=== PATIENT | female | born 1945 | race African-American/Black ===

== ENCOUNTER 2018-02-25 10:43 | Emergency (ER) | payer OTHER, SELFPAY ==
--- NOTE | 2018-02-25 11:36 | ER ---
Nurse's Notes [facility] Name: Racheal Dia Age: 72 yrs Sex: Female : 1945 Arrival Date: 02/25/2018 Time: 10:46 Bed 19 Private MD: None, None Diagnosis: Cough;Bronchitis, not specified as acute or chronic Presentation: 02/25 10:53 Presenting complaint: Patient states: Runny nose, cough, and nasal congestion since ph yesterday, denies fever, N/V/D. Transition of care: patient was not received from another setting of care. Onset of symptoms was February 25, 2018. Risk Assessment: Do you want to hurt yourself or someone else? Patient reports no desire to harm self or others. Initial Sepsis Screen: Does the patient meet any 2 criteria? No. Patient's initial sepsis screen is negative. Does the patient have a suspected source of infection? No. Patient's initial sepsis screen is negative. Care prior to arrival: None. 10:53 Method Of Arrival: Ambulatory 10:53 Acuity: AISHA 3 ph Historical: - Allergies: 10:56 No Known Allergies; ph - PMHx: 10:56 CHF; Hypertension; Hypothyroidism; ph - PSHx: 10:56 splenectomy; Heart stents; ph - Immunization history:: Adult Immunizations up to date. - Social history:: Smoking status: Patient/guardian denies using tobacco. - Family history:: not pertinent. - Ebola Screening: : Patient denies exposure to infectious person Patient denies travel to an Ebola-affected area in the 21 days before illness onset. Screenin:08 Abuse screen: Denies threats or abuse. Denies injuries from another. Nutritional ss screening: No deficits noted. Tuberculosis screening: Never had TB. Fall Risk None identified. Assessment: 11:08 General: Appears in no apparent distress. comfortable, Behavior is calm, cooperative, ss Reports feeling ill for 0-12 hours, Denies fever. Pain: Denies pain. Neuro: Level of Consciousness is awake, alert, obeys commands, Oriented to person, place, time, situation, Denies blurred vision dizziness, numbness headache. Cardiovascular: Capillary refill < 3 seconds is brisk in bilateral fingers. Respiratory: Reports cough that is productive, hacking, persistent Breath sounds are clear bilaterally. Denies shortness of breath pain with respiration, pain with cough, pain with movement. GI: Patient currently denies abdominal pain, diarrhea, nausea, vomiting. : Denies burning with urination, urinary frequency. EENT: Oral mucosa is moist. Reports nasal discharge that is watery since "yesterday" ringing in left ear and right ear since "yesterday". Derm: Skin is intact, is healthy with good turgor, Skin is pink, warm \\T\\ dry. normal. 11:21 Reassessment: pt to XRAY now VIA wheelchair. ss Vital Signs: 10:55 BP 205 / 102; Pulse 65; Resp 20; Temp 97.8; Pulse Ox 96% on R/A; Weight 68.04 kg; ph Height 5 ft. 1 in. (154.94 cm); 11:52 BP 167 / 99; Pulse 67; ss 10:55 Body Mass Index 28.34 (68.04 kg, 154.94 cm) ph 10:55 Pt states, " I took my BP medicine a little late today and I ate some dale so that's ph probably why it's high." ED Course: 10:46 Patient arrived in ED. sb2 10:47 None, None is Private Physician. sb2 10:49 Jaret Swift MD is Attending Physician. [facility] 10:54 Triage completed. ph 10:56 Arm band placed on Patient placed in an exam room. ph 10:58 Shagufta Lockhart, ZANE is Primary Nurse. ss 10:58 Flu Sent. ss 11:08 Patient has correct armband on for positive identification. Bed in low position. Call ss light in reach. 11:08 Patient maintains SpO2 saturation greater than 95% on room air. ss 11:28 X-ray completed. Portable x-ray completed in exam room. Patient tolerated procedure jb2 well. 11:30 Chest Pa And Lat (2 Views) XRAY In Process Unspecified. EDMS 11:54 No provider procedures requiring assistance completed. Patient did not have IV access ss during this emergency room visit. Administered Medications: 11:51 Drug: Tamiflu 75 mg Route: PO; ss 11:51 Follow up: Response: Medication administered at discharge. ss 11:51 Drug: Zithromax 500 mg Route: PO; ss 11:52 Follow up: Response: Medication administered at discharge. Outcome: 11:35 Discharge ordered by . jaret 11:54 Discharged to home ambulatory. 11:54 Condition: good 11:54 Discharge instructions given to patient, Instructed on discharge instructions, follow up and referral plans. medication usage, Demonstrated understanding of instructions, follow-up care, medications, Prescriptions given X 4. 11:55 Patient left the ED. ss Signatures: Dispatcher [employer] EDMS Jaret Swift MD MD cha Buechter, Jesse jb2 Shagufta Lockhart RN RN Marycarmen Reese RN RN Danisha, Freya sb2 Corrections: (The following items were deleted from the chart) 11:54 11:08 Respiratory: Breath sounds are clear bilaterally. Denies cough, shortness of ss breath pain with respiration, pain with cough, pain with movement, ss
--- NOTE | 2018-02-25 11:36 | EDPHYS ---
Physician Documentation [facility] Name: Racheal Dia Age: 72 yrs Sex: Female : 1945 Arrival Date: 02/25/2018 Time: 10:46 Bed 19 Private MD: None, None ED Physician Jaret Swift HPI: 02/25 11:31 This 72 yrs old Black Female presents to ER via Ambulatory with complaints of Flu jaret Symptoms. 11:31 The patient or guardian reports cough, that is constant. Onset: The symptoms/episode jaret began/occurred 2 day(s) ago. Modifying factors: The symptoms are alleviated by nothing. the symptoms are aggravated by nothing. Associated signs and symptoms: The patient has no apparent associated signs or symptoms. Severity of symptoms: At their worst the symptoms were mild in the emergency department the symptoms are unchanged. The patient has experienced similar episodes in the past, a few times. Historical: - Allergies: 10:56 No Known Allergies; ph - PMHx: 10:56 CHF; Hypertension; Hypothyroidism; ph - PSHx: 10:56 splenectomy; Heart stents; ph - Immunization history:: Adult Immunizations up to date. - Social history:: Smoking status: Patient/guardian denies using tobacco. - Family history:: not pertinent. - Ebola Screening: : Patient denies exposure to infectious person Patient denies travel to an Ebola-affected area in the 21 days before illness onset. ROS: 11:31 Constitutional: Negative for fever, chills, and weight loss, Eyes: Negative for injury, jaret pain, redness, and discharge, ENT: Negative for injury, pain, and discharge, Neck: Negative for injury, pain, and swelling, Cardiovascular: Negative for chest pain, palpitations, and edema, Abdomen/GI: Negative for abdominal pain, nausea, vomiting, diarrhea, and constipation, Back: Negative for injury and pain, : Negative for injury, bleeding, discharge, and swelling, MS/Extremity: Negative for injury and deformity, Skin: Negative for injury, rash, and discoloration, Neuro: Negative for headache, weakness, numbness, tingling, and seizure, Psych: Negative for depression, anxiety, suicide ideation, homicidal ideation, and hallucinations, Allergy/Immunology: Negative for hives, rash, and allergies, Endocrine: Negative for neck swelling, polydipsia, polyuria, polyphagia, and marked weight changes, Hematologic/Lymphatic: Negative for swollen nodes, abnormal bleeding, and unusual bruising. 11:31 Respiratory: Positive for cough, with yellow sputum. Exam: 11:31 Constitutional: This is a well developed, well nourished patient who is awake, alert, jaret and in no acute distress. Head/Face: Normocephalic, atraumatic. Eyes: Pupils equal round and reactive to light, extra-ocular motions intact. Lids and lashes normal. Conjunctiva and sclera are non-icteric and not injected. Cornea within normal limits. Periorbital areas with no swelling, redness, or edema. ENT: Nares patent. No nasal discharge, no septal abnormalities noted. Tympanic membranes are normal and external auditory canals are clear. Oropharynx with no redness, swelling, or masses, exudates, or evidence of obstruction, uvula midline. Mucous membranes moist. Neck: Trachea midline, no thyromegaly or masses palpated, and no cervical lymphadenopathy. Supple, full range of motion without nuchal rigidity, or vertebral point tenderness. No Meningismus. Chest/axilla: Normal chest wall appearance and motion. Nontender with no deformity. No lesions are appreciated. Cardiovascular: Regular rate and rhythm with a normal S1 and S2. No gallops, murmurs, or rubs. Normal PMI, no JVD. No pulse deficits. Respiratory: Lungs have equal breath sounds bilaterally, clear to auscultation and percussion. No rales, rhonchi or wheezes noted. No increased work of breathing, no retractions or nasal flaring. Abdomen/GI: Soft, non-tender, with normal bowel sounds. No distension or tympany. No guarding or rebound. No evidence of tenderness throughout. Back: No spinal tenderness. No costovertebral tenderness. Full range of motion. Skin: Warm, dry with normal turgor. Normal color with no rashes, no lesions, and no evidence of cellulitis. MS/ Extremity: Pulses equal, no cyanosis. Neurovascular intact. Full, normal range of motion. Neuro: Awake and alert, GCS 15, oriented to person, place, time, and situation. Cranial nerves II-XII grossly intact. Motor strength 5/5 in all extremities. Sensory grossly intact. Cerebellar exam normal. Normal gait. Psych: Awake, alert, with orientation to person, place and time. Behavior, mood, and affect are within normal limits. 11:31 Musculoskeletal/extremity: DVT Exam: No signs of deep vein thrombosis. no pain, no swelling, no tenderness, negative Homans' sign noted on exam, no appreciated bluish discoloration, no erythema, no increased warmth. Vital Signs: 10:55 BP 205 / 102; Pulse 65; Resp 20; Temp 97.8; Pulse Ox 96% on R/A; Weight 68.04 kg; ph Height 5 ft. 1 in. (154.94 cm); 11:52 BP 167 / 99; Pulse 67; ss 10:55 Body Mass Index 28.34 (68.04 kg, 154.94 cm) ph 10:55 Pt states, " I took my BP medicine a little late today and I ate some dale so that's ph probably why it's high." MDM: 10:49 Patient medically screened. [facility] 11:34 Data reviewed: vital signs, nurses notes, lab test result(s), radiologic studies. [facility] 02/25 10:49 Order name: Flu; Complete Time: 11:29 [facility] 02/25 10:49 Order name: Chest Pa And Lat (2 Views) XRAY [facility] Administered Medications: 11:51 Drug: Tamiflu 75 mg Route: PO; 11:51 Follow up: Response: Medication administered at discharge. 11:51 Drug: Zithromax 500 mg Route: PO; 11:52 Follow up: Response: Medication administered at discharge. Disposition: 02/25/18 11:35 Discharged to Home. Impression: Cough, Bronchitis, not specified as acute or chronic. - Condition is Stable. - Discharge Instructions: Acute Bronchitis, Adult, Upper Respiratory Infection, Adult, Cool Mist Vaporizer, Acute Bronchitis, [id number], Upper Respiratory Infection, Adult, Kgqr-ob-Cpyh, Cough, Adult, Mfhx-fh-Tyre, Cough, Adult, How to Use an Inhaler, [id number]. - Prescriptions for Zithromax Z- Grady 250 mg Oral Tablet - take 1 tablet by ORAL route as directed for 5 days Day 1 - take two (2) tablets one time. Day 2, 3, 4 , 5 take one (1) tablet once daily.; 6 tablet. Albuterol Sulfate 90 mcg/actuation - inhale 1-2 puff by INHALATION route every 4-6 hours; 1 Inhaler. Guaifenesin AC 10- 100 mg/5 mL Oral Liquid - take 5 milliliter by ORAL route every 4 hours As needed; 150 milliliter. Tamiflu 75 mg Oral Capsule - take 1 tablet by ORAL route every 12 hours for 5 days; 10 tablet. - Medication Reconciliation Form, Thank You Letter, Antibiotic Education, Prescription Opioid Use form. - Follow up: Private Physician; When: 2 - 3 days; Reason: Recheck today's complaints, Continuance of care, Re-evaluation by your physician. - Problem is new. - Symptoms have improved. Signatures: Dispatcher [employer] EDMS Jaret Swift MD MD cha Smirch, Shelby, RN RN ss Marycarmen Reese RN RN ph Corrections: (The following items were deleted from the chart) 11:55 11:35 02/25/2018 11:35 Discharged to Home. Impression: Cough; Bronchitis, not specified ss as acute or chronic. Condition is Stable. Forms are Medication Reconciliation Form, Thank You Letter, Antibiotic Education, Prescription Opioid Use. Follow up: Private Physician; When: 2 - 3 days; Reason: Recheck today's complaints, Continuance of care, Re-evaluation by your physician. Problem is new. Symptoms have improved. jaret
--- NOTE | 2018-02-25 11:45 | RAD REPORT ---
EXAM DESCRIPTION: RAD - Chest Pa And Lat (2 Views) - 02/25/2018 11:33 am CLINICAL HISTORY: COUGH Chest pain. COMPARISON: Chest Pa And Lat (2 Views) dated 09/06/2016; CHEST PA AND LAT 2 VIEW dated 03/26/2008; CH EST PA AND LAT 2 VIEW dated 11/15/2003 FINDINGS: The lungs are emphysematous but clear. Tortuous thoracic aorta with upper limit of normal heart size. No displaced fractures. IMPRESSION: COPD.
[2018-02-25] MEDS ORDERED: OSELTAMIVIR 75 MG CAP ONE (11:47)
[2018-02-25] MEDS ORDERED: AZITHROMYCIN 250 MG TAB ONE (11:48)
== END 2018-02-25 11:55 | disposition home or self-care (01) ==
LOC: ER 10:43
DX: J40 Bronchitis, not specified as acute or chronic (principal); J44.9 Chronic obstructive pulmonary disease, unspecified; I11.0 Hypertensive heart disease with heart failure; I50.9 Heart failure, unspecified; E03.9 Hypothyroidism, unspecified; Z95.5 Presence of coronary angioplasty implant and graft
CPT/HCPCS: 71046; 87804; 99284

== ENCOUNTER 2018-06-01 20:04 | Emergency (ER) | payer OTHER ==
[2018-06-01] MEDS ORDERED: cloNIDine HCl 0.1 MG TAB ONE ×2 (21:18→22:01)
--- NOTE | 2018-06-01 22:48 | EDPHYS ---
Physician Documentation [facility] Name: Racheal Dia Age: 72 yrs Sex: Female : 1945 Arrival Date: 06/01/2018 Time: 20:05 Bed 18 Private MD: ED Physician Bruce Mancera HPI: 06/01 20:55 This 72 yrs old Black Female presents to ER via Ambulatory with complaints of Blood pkl Pressure Problem. 20:55 Elevated blood pressure. Onset: The symptoms/episode began/occurred today. pkl Historical: - Allergies: 20:18 No Known Allergies; la1 - PMHx: 20:18 CHF; Hypertension; Hypothyroidism; la1 - Immunization history:: Adult Immunizations up to date. - Social history:: Smoking status: Patient/guardian denies using tobacco. - Ebola Screening: : No symptoms or risks identified at this time. ROS: 20:55 Eyes: Negative for injury, pain, redness, and discharge, ENT: Negative for injury, pkl pain, and discharge, Neck: Negative for injury, pain, and swelling, Cardiovascular: Negative for chest pain, palpitations, and edema, Respiratory: Negative for shortness of breath, cough, wheezing, and pleuritic chest pain, Abdomen/GI: Negative for abdominal pain, nausea, vomiting, diarrhea, and constipation, Back: Negative for injury and pain, : Negative for injury, bleeding, discharge, and swelling, MS/Extremity: Negative for injury and deformity, Skin: Negative for injury, rash, and discoloration. 20:55 Neuro: Positive for dizziness. Exam: 20:55 Head/Face: Normocephalic, atraumatic. Eyes: Pupils equal round and reactive to light, pkl extra-ocular motions intact. Lids and lashes normal. Conjunctiva and sclera are non-icteric and not injected. Cornea within normal limits. Periorbital areas with no swelling, redness, or edema. ENT: Nares patent. No nasal discharge, no septal abnormalities noted. Tympanic membranes are normal and external auditory canals are clear. Oropharynx with no redness, swelling, or masses, exudates, or evidence of obstruction, uvula midline. Mucous membranes moist. Neck: Trachea midline, no thyromegaly or masses palpated, and no cervical lymphadenopathy. Supple, full range of motion without nuchal rigidity, or vertebral point tenderness. No Meningismus. Chest/axilla: Normal chest wall appearance and motion. Nontender with no deformity. No lesions are appreciated. Cardiovascular: Regular rate and rhythm with a normal S1 and S2. No gallops, murmurs, or rubs. Normal PMI, no JVD. No pulse deficits. Respiratory: Lungs have equal breath sounds bilaterally, clear to auscultation and percussion. No rales, rhonchi or wheezes noted. No increased work of breathing, no retractions or nasal flaring. Abdomen/GI: Soft, non-tender, with normal bowel sounds. No distension or tympany. No guarding or rebound. No evidence of tenderness throughout. Back: No spinal tenderness. No costovertebral tenderness. Full range of motion. Skin: Warm, dry with normal turgor. Normal color with no rashes, no lesions, and no evidence of cellulitis. MS/ Extremity: Pulses equal, no cyanosis. Neurovascular intact. Full, normal range of motion. Neuro: Awake and alert, GCS 15, oriented to person, place, time, and situation. Cranial nerves II-XII grossly intact. Motor strength 5/5 in all extremities. Sensory grossly intact. Cerebellar exam normal. Normal gait. Vital Signs: 20:18 BP 166 / 123; Pulse 74; Resp 18; Temp 97.1; Pulse Ox 98% on R/A; Weight 68.04 kg; la1 Height 5 ft. 1 in. (154.94 cm); 21:29 BP 181 / 91; Pulse 60; Resp 16 S; Pulse Ox 97% on R/A; jd3 22:40 BP 143 / 88; Pulse 56; Resp 17 S; Pulse Ox 97% on R/A; jd3 20:18 Body Mass Index 28.34 (68.04 kg, 154.94 cm) la1 MDM: 20:46 Patient medically screened. pkl 22:47 Data reviewed: vital signs, nurses notes. pkl Administered Medications: 21:11 Drug: cloNIDine 0.1 mg Route: PO; jb4 21:54 Follow up: Response: No adverse reaction jd3 21:53 Drug: cloNIDine 0.1 mg Route: PO; jd3 22:58 Follow up: Response: No adverse reaction jd3 Disposition: 06/01/18 22:48 Discharged to Home. Impression: Uncontrolled Hypertension. - Condition is Stable. - Prescriptions for Clonidine 0.1 mg Oral Tablet - take 1 tablet by ORAL route 1-2 times daily; 30 tablet. - Medication Reconciliation Form, Thank You Letter, Antibiotic Education, Prescription Opioid Use form. - Follow up: Private Physician; When: 2 - 3 days; Reason: Re-evaluation by your physician. - Problem is new. - Symptoms have improved. Signatures: Bruce Mancera MD MD pkl Jose Martin Kearns RN RN la1 Igor Tim RN RN jb4 Dong Rios RN RN jd3 Corrections: (The following items were deleted from the chart) 22:58 22:48 06/01/2018 22:48 Discharged to Home. Impression: Uncontrolled Hypertension. jd3 Condition is Stable. Forms are Medication Reconciliation Form, Thank You Letter, Antibiotic Education, Prescription Opioid Use. Follow up: Private Physician; When: 2 - 3 days; Reason: Re-evaluation by your physician. Problem is new. Symptoms have improved. pkl
--- NOTE | 2018-06-01 22:48 | ER ---
Nurse's Notes [facility] Name: Racheal Dia Age: 72 yrs Sex: Female : 1945 Arrival Date: 06/01/2018 Time: 20:05 Bed 18 Private MD: Diagnosis: Uncontrolled Hypertension Presentation: 06/01 20:17 Presenting complaint: Patient states: About 1400 today I checked my BP because I la1 feeling a little dizzy and my BP has been very high in the 200s. Transition of care: patient was not received from another setting of care. Onset of symptoms was June 01, 2018. Risk Assessment: Do you want to hurt yourself or someone else? Patient reports no desire to harm self or others. Initial Sepsis Screen: Does the patient meet any 2 criteria? No. Patient's initial sepsis screen is negative. Does the patient have a suspected source of infection? No. Patient's initial sepsis screen is negative. Care prior to arrival: None. 20:17 Method Of Arrival: Ambulatory la1 20:17 Acuity: AISHA 3 la1 Historical: - Allergies: 20:18 No Known Allergies; la1 - PMHx: 20:18 CHF; Hypertension; Hypothyroidism; la1 - Immunization history:: Adult Immunizations up to date. - Social history:: Smoking status: Patient/guardian denies using tobacco. - Ebola Screening: : No symptoms or risks identified at this time. Screenin:45 Abuse screen: Denies threats or abuse. Nutritional screening: No deficits noted. jd3 Tuberculosis screening: No symptoms or risk factors identified. Fall Risk Ambulatory Aid- None/Bed Rest/Nurse Assist (0 pts). Gait- Normal/Bed Rest/Wheelchair (0 pts) Mental Status- Oriented to own ability (0 pts). Total Stanford Fall Scale indicates No Risk (0-24 pts). Assessment: 20:46 General: Appears in no apparent distress. uncomfortable, Behavior is calm, cooperative, jd3 appropriate for age. Pain: Denies pain. Neuro: Level of Consciousness is awake, alert, obeys commands, Oriented to person, place, time, situation, Appropriate for age Gait is steady, Speech is normal, Facial symmetry appears normal, Pupils are PERRLA, Intact Reports dizziness, pt reports only when blood pressure is elevated. Cardiovascular: Heart tones S1 S2 present Capillary refill < 3 seconds Patient's skin is warm and dry. Respiratory: Airway is patent Respiratory effort is even, unlabored, Respiratory pattern is regular, symmetrical, Breath sounds are clear bilaterally. GI: No signs and/or symptoms were reported involving the gastrointestinal system. : No signs and/or symptoms were reported regarding the genitourinary system. EENT: No signs and/or symptoms were reported regarding the EENT system. Derm: Skin is intact, Skin is dry, Skin is normal, Skin temperature is warm. Musculoskeletal: Circulation, motion, and sensation intact. Range of motion: intact in all extremities. 21:30 Reassessment: Patient appears in no apparent distress at this time. Patient and/or jd3 family updated on plan of care and expected duration. Pain level reassessed. Patient is alert, oriented x 3, equal unlabored respirations, skin warm/dry/pink. 22:41 Reassessment: Patient appears in no apparent distress at this time. Patient and/or jd3 family updated on plan of care and expected duration. Pain level reassessed. Patient is alert, oriented x 3, equal unlabored respirations, skin warm/dry/pink. Vital Signs: 20:18 BP 166 / 123; Pulse 74; Resp 18; Temp 97.1; Pulse Ox 98% on R/A; Weight 68.04 kg; la1 Height 5 ft. 1 in. (154.94 cm); 21:29 BP 181 / 91; Pulse 60; Resp 16 S; Pulse Ox 97% on R/A; jd3 22:40 BP 143 / 88; Pulse 56; Resp 17 S; Pulse Ox 97% on R/A; jd3 20:18 Body Mass Index 28.34 (68.04 kg, 154.94 cm) la1 ED Course: 20:05 Patient arrived in ED. am2 20:18 Triage completed. la1 20:18 Arm band placed on left wrist. la1 20:34 Dong Rios RN is Primary Nurse. jd3 20:45 Patient has correct armband on for positive identification. Bed in low position. Call jd3 light in reach. Side rails up X 1. Adult w/ patient. 20:46 Bruce Mancera MD is Attending Physician. pkl 22:57 No provider procedures requiring assistance completed. Patient did not have IV access jd3 during this emergency room visit. Administered Medications: 21:11 Drug: cloNIDine 0.1 mg Route: PO; jb4 21:54 Follow up: Response: No adverse reaction jd3 21:53 Drug: cloNIDine 0.1 mg Route: PO; jd3 22:58 Follow up: Response: No adverse reaction jd3 Outcome: 22:48 Discharge ordered by . pkterri 22:57 Discharged to home ambulatory, with family. jd3 22:57 Condition: stable 22:57 Discharge instructions given to patient, family, Instructed on discharge instructions, follow up and referral plans. medication usage, Demonstrated understanding of instructions, follow-up care, medications, Prescriptions given X 1. 22:58 Patient left the ED. jd3 Signatures: Bruce Mancera MD MD pkJose Martin Cuevas RN RN darling1 Igor Tim RN RN jb4 Tiesha Mahmood Jonathon RN RN jd3
== END 2018-06-01 22:58 | disposition home or self-care (01) ==
LOC: ER 20:04
DX: I10 Essential (primary) hypertension (principal)
CPT/HCPCS: 99283

== ENCOUNTER 2018-12-03 10:05 | Emergency (ER) | payer OTHER ==
--- OUTSIDE RECORDS SUMMARY | 2018-12-03 10:10 | XMS REPORT ---
:1945 [facility] Address [address] [place] [address] Care Team Providers Name Role Phone Unavailable Unavailable Unavailable Payers Payer Name Policy Type Policy Number Effective Date Expiration Date Problems This patient has no known problems. Allergies, Adverse Reactions, Alerts Allergy Allergy Status Severity Reaction(s) Onset Inactive Treating Comments Name Type Date Date Clinician No Known DA Active U 2018-09 Allergies -17 00:00:0 0 No Known DA Active U 2008-05 Contrast -28 Allergies 00:00:0 0 No Known DA Active U 2008-05 Drug -28 Allergies 00:00:0 0 No Known DA Active U 2008-05 Food -28 Allergies 00:00:0 0 No Known DA Active U 2008-05 Other -28 Allergies 00:00:0 0 Medications This patient has no known medications. Results Test Description Test Time Test Comments Text Results Atomic Results Result Comments BASIC METABOLIC PANEL 2018-10-03 05:09:00 Test Item Value Reference Range Comments SODIUM (test code=NA) 137 MMOL/L 137-145 POTASSIUM (test code=K) 3.8 MMOL/L 3.5-5.1 CHLORIDE (test code=CL) 94 MMOL/L 98-107 CARBON DIOXIDE (test code=CO2) 37 MMOL/L 22-30 GLUCOSE (test code=GLU) 105 MG/DL 74-106 BLOOD UREA NITROGEN (test 8 MG/DL 7-17 code=BUN) GLOMERULAR FILTRATION RATE (test > 60 Reporting units: ml/min/1.73 m2 code=GFR) (Modified MDRD Formula)Reference Range: > or=60 ml/min/1.73 m2 CREATININE (test code=CREAT) 0.50 MG/DL 0.52-1.04 CALCIUM (test code=CA) 9.0 MG/DL 8.4-10.2 [id number] 05:09:00 Test Item Value Reference Range Comments MAGNESIUM (test code=MAG) 1.8 MG/DL 1.6-2.3 CBC W/AUTO [id number] 04:46:00 Test Item Value Reference Range Comments WHITE BLOOD CELL (test code=WBC) 11.9 K/MM3 3.8-9.8 RED BLOOD CELL (test code=RBC) 3.34 M/MM3 3.58-4.97 HEMOGLOBIN (test code=HGB) 10.8 G/DL 11.2-14.9 HEMATOCRIT (test code=HCT) 33.2 % 33.2-43.5 MEAN CELL VOLUME (test code=MCV) 99 fL 80.7-99.1 MEAN CELL HGB (test code=MCH) 32.3 pg 27.0-34.1 MEAN CELL HGB CONCETRATION (test code=MCHC) 32.5 % 32.2-35.7 RED CELL DISTRIBUTION WIDTH (test code=RDW) 14.9 % 12.1-15.2 PLATELET COUNT (test code=PLT) 270 K/MM3 129-368 MEAN PLATELET VOLUME (test code=MPV) 8.8 fl 7.4-10.4 NEUTROPHIL % (test code=NT%) 75.6 % 43-75 IMMATURE GRANULOCYTE % (test code=IG%) 0.3 % 0.0-2.0 LYMPHOCYTE % (test code=LY%) 10.5 % 14-44 MONOCYTE % (test code=MO%) 12.9 % 4-13 EOSINOPHIL % (test code=EO%) 0.5 % 0-6 BASOPHIL % (test code=BA%) 0.2 % 0-2 NUCLEATED RBC % (test code=NRBC%) 0.0 % 0-1.0 NEUTROPHIL # (test code=NT#) 9.00 K/mm3 2.0-7.6 IMMATURE GRANULOCYTE # (test code=IG#) 0.03 x10 3/uL 0-0.03 LYMPHOCYTE # (test code=LY#) 1.25 K/mm3 1.0-3.8 MONOCYTE # (test code=MO#) 1.54 K/mm3 0.1-0.8 EOSINOPHIL # (test code=EO#) 0.06 K/mm3 0.0-0.2 BASOPHIL # (test code=BA#) 0.02 K/mm3 0.0-0.2 NUCLEATED RBC # (test code=NRBC#) 0.00 K/mm3 0.0-0.1 BASIC METABOLIC [id number] 06:03:00 Test Item Value Reference Range Comments SODIUM (test code=NA) 136 MMOL/L 137-145 POTASSIUM (test code=K) 3.6 MMOL/L 3.5-5.1 CHLORIDE (test code=CL) 95 MMOL/L 98-107 CARBON DIOXIDE (test code=CO2) 33 MMOL/L 22-30 GLUCOSE (test code=GLU) 110 MG/DL 74-106 BLOOD UREA NITROGEN (test 8 MG/DL 7-17 code=BUN) GLOMERULAR FILTRATION RATE > 60 Reporting units: ml/min/1.73 (test code=GFR) m2 (Modified MDRD Formula)Reference Range: > or=60 ml/min/1.73 m2 CREATININE (test code=CREAT) 0.60 MG/DL 0.52-1.04 CALCIUM (test code=CA) 8.7 MG/DL 8.4-10.2 [id number] 06:03:00 Test Item Value Reference Range Comments MAGNESIUM (test code=MAG) 2.1 MG/DL 1.6-2.3 CBC W/AUTO [id number] 05:32:00 Test Item Value Reference Range Comments WHITE BLOOD CELL (test code=WBC) 11.6 K/MM3 3.8-9.8 RED BLOOD CELL (test code=RBC) 3.39 M/MM3 3.58-4.97 HEMOGLOBIN (test code=HGB) 11.0 G/DL 11.2-14.9 HEMATOCRIT (test code=HCT) 33.6 % 33.2-43.5 MEAN CELL VOLUME (test code=MCV) 99 fL 80.7-99.1 MEAN CELL HGB (test code=MCH) 32.4 pg 27.0-34.1 MEAN CELL HGB CONCETRATION (test code=MCHC) 32.7 % 32.2-35.7 RED CELL DISTRIBUTION WIDTH (test code=RDW) 15.1 % 12.1-15.2 PLATELET COUNT (test code=PLT) 274 K/MM3 129-368 MEAN PLATELET VOLUME (test code=MPV) 8.8 fl 7.4-10.4 NEUTROPHIL % (test code=NT%) 75.7 % 43-75 IMMATURE GRANULOCYTE % (test code=IG%) 0.3 % 0.0-2.0 LYMPHOCYTE % (test code=LY%) 11.9 % 14-44 MONOCYTE % (test code=MO%) 11.2 % 4-13 EOSINOPHIL % (test code=EO%) 0.7 % 0-6 BASOPHIL % (test code=BA%) 0.2 % 0-2 NUCLEATED RBC % (test code=NRBC%) 0.0 % 0-1.0 NEUTROPHIL # (test code=NT#) 8.79 K/mm3 2.0-7.6 IMMATURE GRANULOCYTE # (test code=IG#) 0.04 x10 3/uL 0-0.03 LYMPHOCYTE # (test code=LY#) 1.38 K/mm3 1.0-3.8 MONOCYTE # (test code=MO#) 1.30 K/mm3 0.1-0.8 EOSINOPHIL # (test code=EO#) 0.08 K/mm3 0.0-0.2 BASOPHIL # (test code=BA#) 0.02 K/mm3 0.0-0.2 NUCLEATED RBC # (test code=NRBC#) 0.00 K/mm3 0.0-0.1 ARTERIAL BLOOD [id number] 12:23:00 Test Item Value Reference Range Comments ARTERIAL BLOOD GAS PH (test 7.42 mmHg 7.35-7.45 code=PHA) ARTERIAL BLOOD GAS PCO2 (test 45.2 mmHg 35.0-45.0 code=PCO2A) ARTERIAL BLOOD GAS PO2 (test 81.7 mmol/L 80.0-100.0 code=PO2A) BICARBONATE TOTAL HCO3 (test 28.5 mmol/L 20.0-26.0 code=HCO3) BASE EXCESS (test code=RUKHSANA) 3.4 mmol/L -3.0-3.0 ABG O2 SATURATION (test 96.1 % 95.0-100.0 code=SATA) ABG DELIVERY (test code=DENISE) FACETENT Previously reported result: FT/NC Edited by: MOON on 10/01/18:[id number] 1222: DELIVERY previously reported as: FT/NC ABG TEMPERATURE (test 37.0 C >37 code=TEMPA) ABG SITE (test code=SITEA) AL ALLENS TEST (test NA CHECK code=ALLENS) FIO2 (test code=COHBGFFIO2) 40 % ARTERY,[id number] 11:58:00 RUN DATE: 10/01/18 [place] - LAB PAGE 1 RUN TIME: 1158 Specimen Inquiry RUN USER: INTERFACE PATIENT: WILI SABILLON LOC: ENA U #: [id number] AGE/SX: 72/F ROOM: [facility] RE09/30/18[facility] DR: Rohith Cruz MD : 47 BED: A DIS: STATUS: ADM IN TLOC: SPEC #: [id number] RECD: 09/30/18 STATUS: DIEGO BYNUM #: [id number] GUS: 09/30/18 [facility] DR: Rohith Cruz MD ENTERED: 09/30/18 SP TYPE: ARTERY, PL OTHR DR: Katie Marc MD, Nioti R MD Pepper, Gregory S MDORDERED: DECAL, SURG PATH LVL 3, SURG PATH LVL 4 CODES: [id number] - PLAQUE, NOS [id number] - ARTERY, NOS [id number] - CAROTID ARTERY ATHEROSCLEROSIS [id number] - CERVIX EXCISIONAL BIOP [id number] - LYMPH NODE, NOS COPIES TO: Katie Marc MD [address] [place] [address] [address] [place] [address] [email or web address] [address] [place] [address] [place] [address] [facility] [address] [place] [address] [place] [address] [facility] [address] [place] [address] ICD CODES: 440 - PROCEDURES: DECAL (10/01/18) SURG PATH LVL 3 (09/30/18) SURG PATH LVL 4 (09/30/18) TISSUES: A. ARTERY, NOS - RT ARTERY PLAQUE B. LYMPH NODE, NOS - RT CERVICAL LYMPH NODE CONTINUED ON NEXT PAGE RUN DATE: 10/01/18 [place] - LAB PAGE 2 RUN TIME: 1158 Specimen Inquiry RUN USER:INTERFACE SPEC #: [id number] PATIENT: WILI SABILLON #[id number] (Continued) CLINICAL HISTORY RIGHT INTERNAL CAROTID ARTERYSTENOSIS CPT CODES CPT CODE(S): 71809 , 74000 , 01954 , , , , FINAL DIAGNOSIS A. Plaque, right carotid artery, endarterectomy: SEVERE ATHEROSCLEROSIS, OCCLUSIVE AND CALCIFIC B. Lymph node, right cervical, excisional biopsy: MINIMAL, NON-SPECIFIC, REACTIVE CHANGE GROSS DESCRIPTION A. Right carotid plaque. Received are two pieces of yellow-wyman , heavily calcified plaque (combined measurement 3.5 x 1 x 0.8 cm). Sections are submitted for decalcification as A1. B. Right cervical lymph node.Received is a wyman-pink lymph node (1.3 x 1 x 0.7 cm), sectioned and entirely submitted as B1. /tc/hazel MICROSCOPIC DESCRIPTION A. Right carotid plaque. Nodular atheromatous plaque with dense calcification and stromal sclerosis. No atypia. No malignancy. B. Right cervical lymph node. Benign lymph node with minimal hyperplastic deviation (reactive change) . No atypia. No malignancy. /cm Signed SIGNATURE ON FILE David Maier 10/01/18 1158 END OF REPORT - XR CHEST [id number] 07:45:00 Patient Name: WILI SABILLON Unit No: [id number] EXAMS: CPT CODE: [id number] XR CHEST 1V 60728 EXAMINATION: - XR CHEST 1V. LOCATION : B2. HISTORY: post op. COMPARISON: Radiograph dated 09/30/2018. TECHNIQUE: Single APview of the chest was obtained. FINDINGS: Left subclavian line is unchanged in position. Right neck surgical drain is again noted. The heart is normal in size. Calcifications are seen in an ectatic thoracic aorta. Mild left basilar opacities are present. The right lung is clear. No new osseous abnormality is identified. IMPRESSION: Mild left basilar atelectasis and/or pleural fluid. at 0745 Reported and signed by: Kayode Juarez MD CC: Katie Marc MD; Brisa GARCIA Technologist: Jeffrey High, RT(R) Transcrpt Date/Tm/Trnsp: 10/01/2018 (0745) [email or web address] Orig Print D/T: S: 10/01/2018 (0748) [facility] NAME: WILI SABILLON [id number] PHYS: [place] [address] : 1945 AGE: 72 SEX: F LOC: Z.SI07 A PHONE #: [phone] EXAM DATE: 10/01/2018 STATUS: ADM IN FAX #: [phone] RADIOLOGY NO: PAGE 1 Signed ReportBASIC METABOLIC [id number] 05:58:00 Test Item Value Reference Range Comments SODIUM (test code=NA) 136 MMOL/L 137-145 POTASSIUM (test code=K) 3.9 MMOL/L 3.5-5.1 CHLORIDE (test code=CL) 96 MMOL/L 98-107 CARBON DIOXIDE (test code=CO2) 32 MMOL/L 22-30 GLUCOSE (test code=GLU) 132 MG/DL 74-106 BLOOD UREA NITROGEN (test 7 MG/DL 7-17 code=BUN) GLOMERULAR FILTRATION RATE > 60 Reporting units: ml/min/1.73 (test code=GFR) m2 (Modified MDRD Formula)Reference Range: > or=60 ml/min/1.73 m2 CREATININE (test code=CREAT) 0.60 MG/DL 0.52-1.04 CALCIUM (test code=CA) 8.7 MG/DL 8.4-10.2 [id number] 05:58:00 Test Item Value Reference Range Comments MAGNESIUM (test code=MAG) 1.7 MG/DL 1.6-2.3 CBC W/AUTO [id number] 05:30:00 Test Item Value Reference Range Comments WHITE BLOOD CELL (test code=WBC) 10.7 K/MM3 3.8-9.8 RED BLOOD CELL (test code=RBC) 3.70 M/MM3 3.58-4.97 HEMOGLOBIN (test code=HGB) 12.0 G/DL 11.2-14.9 HEMATOCRIT (test code=HCT) 36.0 % 33.2-43.5 MEAN CELL VOLUME (test code=MCV) 97 fL 80.7-99.1 MEAN CELL HGB (test code=MCH) 32.4 pg 27.0-34.1 MEAN CELL HGB CONCETRATION (test code=MCHC) 33.3 % 32.2-35.7 RED CELL DISTRIBUTION WIDTH (test code=RDW) 15.2 % 12.1-15.2 PLATELET COUNT (test code=PLT) 298 K/MM3 129-368 MEAN PLATELET VOLUME (test code=MPV) 8.8 fl 7.4-10.4 NEUTROPHIL % (test code=NT%) 82.2 % 43-75 IMMATURE GRANULOCYTE % (test code=IG%) 0.4 % 0.0-2.0 LYMPHOCYTE % (test code=LY%) 8.7 % 14-44 MONOCYTE % (test code=MO%) 8.4 % 4-13 EOSINOPHIL % (test code=EO%) 0.1 % 0-6 BASOPHIL % (test code=BA%) 0.2 % 0-2 NUCLEATED RBC % (test code=NRBC%) 0.0 % 0-1.0 NEUTROPHIL # (test code=NT#) 8.82 K/mm3 2.0-7.6 IMMATURE GRANULOCYTE # (test code=IG#) 0.04 x10 3/uL 0-0.03 LYMPHOCYTE # (test code=LY#) 0.93 K/mm3 1.0-3.8 MONOCYTE # (test code=MO#) 0.90 K/mm3 0.1-0.8 EOSINOPHIL # (test code=EO#) 0.01 K/mm3 0.0-0.2 BASOPHIL # (test code=BA#) 0.02 K/mm3 0.0-0.2 NUCLEATED RBC # (test code=NRBC#) 0.00 K/mm3 0.0-0.1 [id number] 22:38:00 Test Item Value Reference Range Comments POTASSIUM (test code=K) 3.3 MMOL/L 3.5-5.1 [id number] 22:38:00 Test Item Value Reference Range Comments MAGNESIUM (test code=MAG) 1.7 MG/DL 1.6-2.3 ARTERIAL BLOOD [id number] 17:57:00 Test Item Value Reference Range Comments ARTERIAL BLOOD GAS PH (test code=PHA) 7.42 mmHg 7.35-7.45 ARTERIAL BLOOD GAS PCO2 (test code=PCO2A) 45.2 mmHg 35.0-45.0 ARTERIAL BLOOD GAS PO2 (test code=PO2A) 81.7 mmol/L 80.0-100.0 BICARBONATE TOTAL HCO3 (test code=HCO3) 28.5 mmol/L 20.0-26.0 BASE EXCESS (test code=RUKHSANA) 3.4 mmol/L -3.0-3.0 ABG O2 SATURATION (test code=SATA) 96.1 % 95.0-100.0 ABG DELIVERY (test code=DENISE) FT/NC ABG TEMPERATURE (test code=TEMPA) 37.0 C >37 ABG SITE (test code=SITEA) AL ALLENS TEST (test code=ALLENS) NA CHECK FIO2 (test code=COHBGFFIO2) 40 % BASIC METABOLIC [id number] 16:18:00 Test Item Value Reference Range Comments SODIUM (test code=NA) 138 MMOL/L 137-145 POTASSIUM (test code=K) 3.1 MMOL/L 3.5-5.1 CHLORIDE (test code=CL) 100 MMOL/L 98-107 CARBON DIOXIDE (test code=CO2) 31 MMOL/L 22-30 GLUCOSE (test code=GLU) 119 MG/DL 74-106 BLOOD UREA NITROGEN (test 10 MG/DL 7-17 code=BUN) GLOMERULAR FILTRATION RATE > 60 Reporting units: ml/min/1.73 (test code=GFR) m2 (Modified MDRD Formula)Reference Range: > or=60 ml/min/1.73 m2 CREATININE (test code=CREAT) 0.60 MG/DL 0.52-1.04 CALCIUM (test code=CA) 8.9 MG/DL 8.4-10.2 [id number] 16:18:00 Test Item Value Reference Range Comments MAGNESIUM (test code=MAG) 1.3 MG/DL 1.6-2.3 CBC W/AUTO [id number] 16:06:00 Test Item Value Reference Range Comments WHITE BLOOD CELL (test code=WBC) 10.8 K/MM3 3.8-9.8 RED BLOOD CELL (test code=RBC) 3.64 M/MM3 3.58-4.97 HEMOGLOBIN (test code=HGB) 11.8 G/DL 11.2-14.9 HEMATOCRIT (test code=HCT) 35.3 % 33.2-43.5 MEAN CELL VOLUME (test code=MCV) 97 fL 80.7-99.1 MEAN CELL HGB (test code=MCH) 32.4 pg 27.0-34.1 MEAN CELL HGB CONCETRATION (test code=MCHC) 33.4 % 32.2-35.7 RED CELL DISTRIBUTION WIDTH (test code=RDW) 14.9 % 12.1-15.2 PLATELET COUNT (test code=PLT) 281 K/MM3 129-368 MEAN PLATELET VOLUME (test code=MPV) 8.9 fl 7.4-10.4 NEUTROPHIL % (test code=NT%) 55.0 % 43-75 IMMATURE GRANULOCYTE % (test code=IG%) 0.6 % 0.0-2.0 LYMPHOCYTE % (test code=LY%) 30.3 % 14-44 MONOCYTE % (test code=MO%) 10.8 % 4-13 EOSINOPHIL % (test code=EO%) 3.0 % 0-6 BASOPHIL % (test code=BA%) 0.3 % 0-2 NUCLEATED RBC % (test code=NRBC%) 0.0 % 0-1.0 NEUTROPHIL # (test code=NT#) 5.97 K/mm3 2.0-7.6 IMMATURE GRANULOCYTE # (test code=IG#) 0.07 x10 3/uL 0-0.03 LYMPHOCYTE # (test code=LY#) 3.28 K/mm3 1.0-3.8 MONOCYTE # (test code=MO#) 1.17 K/mm3 0.1-0.8 EOSINOPHIL # (test code=EO#) 0.32 K/mm3 0.0-0.2 BASOPHIL # (test code=BA#) 0.03 K/mm3 0.0-0.2 NUCLEATED RBC # (test code=NRBC#) 0.00 K/mm3 0.0-0.1 - XR CHEST [id number] 15:29:00 Patient Name: WILI SABILLON Unit No: [id number] EXAMS: CPT CODE: [id number] XR CHEST 1V 94679 EXAM: CHEST ONE VIEW INDICATION: Postop LOCATION: B2 COMPARISON: September 29, 2018 TECHNIQUE: AP view of the chest FINDINGS: Left-sided central venous catheter overlies the SVC. The heart size is normal. There are mild congestive changes bilaterally. No pneumothorax or pleural effusion is identified. The osseous structures are normal. IMPRESSION: Mild congestive changes bilaterally. No pneumothorax. at 1529 Reported and signed by: Ryann Zuniga MD CC: Katie Marc MD; Brisa GARCIA Technologist: Alhaji Cha RT(R) Transcrpt Date/Tm/Trnsp: 09/30/2018 (1529) [id number] OrigPrint D /T: S: 09/30/2018 (1532) [facility] NAME: WILI SABILLON [id number] PHYS: [place] [address] : 1945 AGE: 72 SEX: F LOC: [id number] PHONE #: [phone] EXAM DATE: 09/30/2018 STATUS: ADM IN FAX #: [phone] RADIOLOGY NO: PAGE 1 Signed ReportHIV 12 AB [id number] 19 :14:00 Test Item Value Reference Range Comments AB HIV 1 2 (test NON REACTIVE NON-REAC NOTE: A NONREACTIVE RESULT code=YGA36JL) INDICATES THAT HIV-1 AND HIV-2ANTIBODIES HAVE NOT BEEN FOUND IN THIS PATIENT SPECIMEN. ANON-REACTIVE RESULT, HOWEVER, DOES NOT PRECLUDE PREVIOUSEXPOSURE OR INFECTION WITH HIV1. AG HIV1 P24 (test NON REACTIVE NONE REAC code=HMG0V57) PROTHROMBIN [id number] 14:22:00 Test Item Value Reference Range Comments PROTHROMBIN TIME PATIENT (test 10.4 SECONDS 9.6-11.6 code=PTP) INTERNATIONAL NORMAL RATIO 1.0 0.8-1.1 The INR is to be used only (test code=INR) for monitoring oral anticoagulanttherapy. INDICATION INR VALUE 1. Prophylaxis, deep venous thrombosis, including high risk surgery. 2.0 - 3.0 2. Prophylaxis, deep venous thrombosis, hip surgery, treatment for deep venous thrombosis or pulmonary prevention of systemic embolism in patients with valvular heart disease, atrial fibrillation, tissue heart valve, or acute myocardial infarction. 2.0 - 3.0 3. Mechanical prosthesis heart valves, recurrent systemic embolism. 3.0 - 4.5 PTT [id number] 14:22:00 Test Item Value Reference Range Comments PTT ACTIVATED (test code=APTT) 29.3 SECONDS 22.0-33.0 BASIC METABOLIC [id number] 14:18:00 Test Item Value Reference Range Comments SODIUM (test code=NA) 140 MMOL/L 137-145 POTASSIUM (test code=K) 4.0 MMOL/L 3.5-5.1 CHLORIDE (test code=CL) 96 MMOL/L 98-107 CARBON DIOXIDE (test code=CO2) 33 MMOL/L 22-30 GLUCOSE (test code=GLU) 124 MG/DL 74-106 BLOOD UREA NITROGEN (test 13 MG/DL 7-17 code=BUN) GLOMERULAR FILTRATION RATE > 60 Reporting units: ml/min/1.73 (test code=GFR) m2 (Modified MDRD Formula)Reference Range: > or=60 ml/min/1.73 m2 CREATININE (test code=CREAT) 0.80 MG/DL 0.52-1.04 CALCIUM (test code=CA) 9.9 MG/DL 8.4-10.2 - XR CHEST 2 [id number] 14:14:00 Patient Name: WILI SABILLON Unit No: [id number] EXAMS: CPT CODE: [id number] XR CHEST 2 V 45624 EXAM: CHEST 2 VIEWS INDICATION: PRE-OP LOCATION : B2 COMPARISON: None available TECHNIQUE: PA and lateral views of the chest. FINDINGS: The heart size is normal. The lungs are clear bilaterally. The pulmonary vasculature is normal. No pneumothorax or pleural effusion is identified. The osseous structures are normal. IMPRESSION: No acute cardiopulmonary process. at 1414 Reported and signed by: Ryann Zuniga MD CC: Katie Marc MD Technologist: Gay Wolfe, RT(R) Transcrpt Date/Tm/Trnsp: 09/29/2018 (1414) [id number] Orig Print D/T: S: (4998) [facility] NAME: WILI SABILLON [address] PHYS: [place] [address] : 1945 AGE: 72 SEX: F LOC: [id number] PHONE #: [phone] EXAM DATE: 09/29/2018 STATUS: PRE IN FAX #: [phone] RADIOLOGY NO: PAGE 1 Signed ReportCBC W/AUTO [id number] 13:57:00 Test Item Value Reference Range Comments WHITE BLOOD CELL (test code=WBC) 7.4 K/MM3 3.8-9.8 RED BLOOD CELL (test code=RBC) 3.85 M/MM3 3.58-4.97 HEMOGLOBIN (test code=HGB) 12.4 G/DL 11.2-14.9 HEMATOCRIT (test code=HCT) 37.8 % 33.2-43.5 MEAN CELL VOLUME (test code=MCV) 98 fL 80.7-99.1 MEAN CELL HGB (test code=MCH) 32.2 pg 27.0-34.1 MEAN CELL HGB CONCETRATION (test code=MCHC) 32.8 % 32.2-35.7 RED CELL DISTRIBUTION WIDTH (test code=RDW) 14.9 % 12.1-15.2 PLATELET COUNT (test code=PLT) 294 K/MM3 129-368 MEAN PLATELET VOLUME (test code=MPV) 8.9 fl 7.4-10.4 NEUTROPHIL % (test code=NT%) 59.2 % 43-75 IMMATURE GRANULOCYTE % (test code=IG%) 0.3 % 0.0-2.0 LYMPHOCYTE % (test code=LY%) 27.3 % 14-44 MONOCYTE % (test code=MO%) 11.6 % 4-13 EOSINOPHIL % (test code=EO%) 1.3 % 0-6 BASOPHIL % (test code=BA%) 0.3 % 0-2 NUCLEATED RBC % (test code=NRBC%) 0.0 % 0-1.0 NEUTROPHIL # (test code=NT#) 4.41 K/mm3 2.0-7.6 IMMATURE GRANULOCYTE # (test code=IG#) 0.02 x10 3/uL 0-0.03 LYMPHOCYTE # (test code=LY#) 2.03 K/mm3 1.0-3.8 MONOCYTE # (test code=MO#) 0.86 K/mm3 0.1-0.8 EOSINOPHIL # (test code=EO#) 0.10 K/mm3 0.0-0.2 BASOPHIL # (test code=BA#) 0.02 K/mm3 0.0-0.2 NUCLEATED RBC # (test code=NRBC#) 0.00 K/mm3 0.0-0.1 BASIC METABOLIC [id number] 06:04:00 Test Item Value Reference Range Comments SODIUM (test code=NA) 140 MMOL/L 137-145 POTASSIUM (test code=K) 4.4 MMOL/L 3.5-5.1 CHLORIDE (test code=CL) 99 MMOL/L 98-107 CARBON DIOXIDE (test code=CO2) 32 MMOL/L 22-30 GLUCOSE (test code=GLU) 93 MG/DL 74-106 BLOOD UREA NITROGEN (test 21 MG/DL 7-17 code=BUN) GLOMERULAR FILTRATION RATE > 60 Reporting units: ml/min/1.73 (test code=GFR) m2 (Modified MDRD Formula)Reference Range: > or=60 ml/min/1.73 m2 CREATININE (test code=CREAT) 0.90 MG/DL 0.52-1.04 CALCIUM (test code=CA) 9.7 MG/DL 8.4-10.2 LIPID PROFILE (CORONARY RISK)2018-09-20 06:04:00 Test Item Value Reference Range Comments TRIGLYCERIDES (test code=TRIG) 99 MG/DL TRIGLYCERIDES REFERENCE RANGE:Normal: <150 mg/dLBorderline High: 150-199 mg/dLHigh: 200-499 mg/dLVery High: >=500 mg/dL CHOLESTEROL (test code=CHOL) 135 MG/DL <200 HDL CHOLESTEROL (test 50 MG/DL 40-59 code=HDL) LIPOPROTEIN LDL (test 65 MG/DL 0-99 code=LDL) OPTIMAL.........<100 mg/dLNEAR OPTIMAL/ABOVE OPTIMAL.........100-129 mg/dL BORDERLINE HIGH.........130-159 mg/dL HIGH.........160-189 mg/dL VERY HIGH.........>/=190 mg/dL [id number] 06:04:00 Test Item Value Reference Range Comments MAGNESIUM (test code=MAG) 1.9 MG/DL 1.6-2.3 PROTHROMBIN [id number] 06:00:00 Test Item Value Reference Range Comments PROTHROMBIN TIME PATIENT (test 10.3 SECONDS 9.6-11.6 code=PTP) INTERNATIONAL NORMAL RATIO 1.0 0.8-1.1 The INR is to be used only (test code=INR) for monitoring oral anticoagulanttherapy. INDICATION INR VALUE 1. Prophylaxis, deep venous thrombosis, including high risk surgery. 2.0 - 3.0 2. Prophylaxis, deep venous thrombosis, hip surgery, treatment for deep venous thrombosis or pulmonary prevention of systemic embolism in patients with valvular heart disease, atrial fibrillation, tissue heart valve, or acute myocardial infarction. 2.0 - 3.0 3. Mechanical prosthesis heart valves, recurrent systemic embolism. 3.0 - 4.5 Comments to Jammer Hooker: WILL BRING TO [facility] [id number] 06:00:00 Test Item Value Reference Range Comments PTT ACTIVATED (test code=APTT) 29.3 SECONDS 22.0-33.0 Comments to Jammer Hooker: WILL BRING TO [facility] METABOLIC [id number] 05:54 :00 Test Item Value Reference Range Comments SODIUM (test code=NA) 140 MMOL/L 137-145 POTASSIUM (test code=K) 4.4 MMOL/L 3.5-5.1 CHLORIDE (test code=CL) 99 MMOL/L 98-107 CARBON DIOXIDE (test code=CO2) 32 MMOL/L 22-30 GLUCOSE (test code=GLU) 93 MG/DL 74-106 BLOOD UREA NITROGEN (test 21 MG/DL 7-17 code=BUN) GLOMERULAR FILTRATION RATE > 60 Reporting units: ml/min/1.73 (test code=GFR) m2 (Modified MDRD Formula)Reference Range: > or=60 ml/min/1.73 m2 CREATININE (test code=CREAT) 0.90 MG/DL 0.52-1.04 CALCIUM (test code=CA) 9.7 MG/DL 8.4-10.2 LIPID PROFILE (CORONARY RISK)2018-09-20 05:54:00 Test Item Value Reference Range Comments TRIGLYCERIDES (test code=TRIG) 99 MG/DL TRIGLYCERIDES REFERENCE RANGE:Normal: <150 mg/dLBorderline High: 150-199 mg/dLHigh: 200-499 mg/dLVery High: >=500 mg/dL CHOLESTEROL (test code=CHOL) 135 MG/DL <200 HDL CHOLESTEROL (test 50 MG/DL 40-59 code=HDL) LIPOPROTEIN LDL (test MG/DL 0-99 code=LDL) [id number] 05:54:00 Test Item Value Reference Range Comments MAGNESIUM (test code=MAG) 1.9 MG/DL 1.6-2.3 CBC W/AUTO [id number] 05:41:00 Test Item Value Reference Range Comments WHITE BLOOD CELL (test code=WBC) 6.4 K/MM3 3.8-9.8 RED BLOOD CELL (test code=RBC) 3.97 M/MM3 3.58-4.97 HEMOGLOBIN (test code=HGB) 12.7 G/DL 11.2-14.9 HEMATOCRIT (test code=HCT) 39.5 % 33.2-43.5 MEAN CELL VOLUME (test code=MCV) 100 fL 80.7-99.1 MEAN CELL HGB (test code=MCH) 32.0 pg 27.0-34.1 MEAN CELL HGB CONCETRATION (test code=MCHC) 32.2 % 32.2-35.7 RED CELL DISTRIBUTION WIDTH (test code=RDW) 15.7 % 12.1-15.2 PLATELET COUNT (test code=PLT) 279 K/MM3 129-368 MEAN PLATELET VOLUME (test code=MPV) 8.9 fl 7.4-10.4 NEUTROPHIL % (test code=NT%) 51.5 % 43-75 IMMATURE GRANULOCYTE % (test code=IG%) 0.3 % 0.0-2.0 LYMPHOCYTE % (test code=LY%) 30.9 % 14-44 MONOCYTE % (test code=MO%) 13.3 % 4-13 EOSINOPHIL % (test code=EO%) 3.7 % 0-6 BASOPHIL % (test code=BA%) 0.3 % 0-2 NUCLEATED RBC % (test code=NRBC%) 0.0 % 0-1.0 NEUTROPHIL # (test code=NT#) 3.30 K/mm3 2.0-7.6 IMMATURE GRANULOCYTE # (test code=IG#) 0.02 x10 3/uL 0-0.03 LYMPHOCYTE # (test code=LY#) 1.98 K/mm3 1.0-3.8 MONOCYTE # (test code=MO#) 0.85 K/mm3 0.1-0.8 EOSINOPHIL # (test code=EO#) 0.24 K/mm3 0.0-0.2 BASOPHIL # (test code=BA#) 0.02 K/mm3 0.0-0.2 NUCLEATED RBC # (test code=NRBC#) 0.00 K/mm3 0.0-0.1
[2018-12-03] MEDS ORDERED: TRAMADOL HCL 50 MG TAB ONE (11:34)
--- NOTE | 2018-12-03 11:37 | ER ---
Nurse's Notes [facility] Name: Racheal Dia Age: 73 yrs Sex: Female : 1945 Arrival Date: 12/03/2018 Time: 10:09 Bed 9 Private MD: None, None Diagnosis: Other sprain of left middle finger Presentation: 12/03 10:37 Presenting complaint: Patient states: I fell 2 days ago and caught myself with me left la1 hand, I have had pain in my left third finger in the last joint since then. Transition of care: patient was not received from another setting of care. Onset of symptoms was December 03, 2018. Risk Assessment: Do you want to hurt yourself or someone else? Patient reports no desire to harm self or others. Initial Sepsis Screen: Does the patient meet any 2 criteria? No. Patient's initial sepsis screen is negative. Does the patient have a suspected source of infection? No. Patient's initial sepsis screen is negative. Care prior to arrival: None. 10:37 Method Of Arrival: Ambulatory la1 10:37 Acuity: AISHA 4 la1 Triage Assessment: 11:40 Injury Description:. iw 11:49 General: Appears in no apparent distress. iw 11:50 General: Behavior is calm. iw Historical: - Allergies: 10:38 No Known Allergies; la1 - PMHx: 10:38 CHF; Hypertension; Hypothyroidism; la1 - Immunization history:: Adult Immunizations up to date. - Social history:: Smoking status: Patient/guardian denies using tobacco. - Ebola Screening: : No symptoms or risks identified at this time. Screenin:49 Abuse screen: Denies threats or abuse. Denies injuries from another. Nutritional iw screening: No deficits noted. Tuberculosis screening: No symptoms or risk factors identified. Fall Risk None identified. Assessment: 11:10 General: Appears in no apparent distress. Pain: Complains of pain in left hand and left iw middle finger. Neuro: Level of Consciousness is awake, alert, obeys commands, Oriented to person, place, time, situation, Moves all extremities. Full function. Cardiovascular: Patient's skin is warm and dry. Respiratory: Respiratory effort is even, unlabored, Respiratory pattern is regular. Musculoskeletal: Range of motion: intact in all extremities, Reports pain in left middle finger. Vital Signs: 10:38 BP 125 / 86; Pulse 58; Resp 16; Temp 98.4; Pulse Ox 98% on R/A; Weight 65.77 kg; la1 ED Course: 10:09 Patient arrived in ED. mr 10:09 None, None is Private Physician. mr 10:38 Triage completed. la1 10:39 Arm band placed on left wrist. la1 10:49 Rowan Arechiga FNP-C is [facility]. kb 10:49 Jorgito Kaur MD is Attending Physician. kb 11:08 X-ray completed. Portable x-ray completed in exam room. Patient tolerated procedure sw well. 11:12 Hand Left 3 View XRAY In Process Unspecified. EDMS 11:28 Dianna Walter, RN is Primary Nurse. iw 11:50 Patient has correct armband on for positive identification. iw 11:50 No provider procedures requiring assistance completed. Patient did not have IV access iw during this emergency room visit. Administered Medications: 11:40 Drug: traMADol 25 mg {Note: RASS 0.} Route: PO; iw Outcome: 11:36 Discharge ordered by . kb 11:49 Discharged to home ambulatory, with family. iw 11:49 Condition: good 11:49 Discharge instructions given to patient, family, Instructed on discharge instructions, follow up and referral plans. medication usage, Demonstrated understanding of instructions, follow-up care, medications, Prescriptions given X 1. 11:50 Patient left the ED. iw Signatures: Dispatcher [employer] EDNV Rowan Arechiga FNP-C FNP-Ckb Rivera, Mary mr Dianna Walter RN ZANE Jose Martin Kearns RN RN [facility] Crissy Crenshaw
--- NOTE | 2018-12-03 11:38 | EDPHYS ---
Physician Documentation [facility] Name: Racheal Dia Age: 73 yrs Sex: Female : 1945 Arrival Date: 12/03/2018 Time: 10:09 Bed 9 Private MD: None, None ED Physician Jorgito Kaur HPI: 12/03 12:44 This 73 yrs old Black Female presents to ER via Ambulatory with complaints of Finger kb Injury. 12:44 The patient or guardian reports injury, pain, swelling. The complaints affect the left kb middle finger. Context: The problem was sustained at home, resulted from a fall, on an outstretched hand. Onset: The symptoms/episode began/occurred 2 day(s) ago. Modifying factors: The symptoms are alleviated by nothing, the symptoms are aggravated by nothing. Associated signs and symptoms: The patient has no apparent associated signs or symptoms. Severity of symptoms: At their worst the symptoms were mild, moderate, in the emergency department the symptoms have improved, mildly. The patient has not experienced similar symptoms in the past. The patient has not recently seen a physician. Pt reports she fell two nights ago and has had pain to left middle finger since then. Reports she has decreased ROM, but that is better now. She is able to move it, but swelling persists with pain (mostly at night). Historical: - Allergies: 10:38 No Known Allergies; la1 - PMHx: 10:38 CHF; Hypertension; Hypothyroidism; la1 - Immunization history:: Adult Immunizations up to date. - Social history:: Smoking status: Patient/guardian denies using tobacco. - Ebola Screening: : No symptoms or risks identified at this time. ROS: 12:42 Constitutional: Negative for fever, chills, and weight loss, ENT: Negative for injury, kb pain, and discharge, Neck: Negative for injury, pain, and swelling, Cardiovascular: Negative for chest pain, palpitations, and edema, Respiratory: Negative for shortness of breath, cough, wheezing, and pleuritic chest pain, Abdomen/GI: Negative for abdominal pain, nausea, vomiting, diarrhea, and constipation, Back: Negative for injury and pain, Skin: Negative for injury, rash, and discoloration, Neuro: Negative for headache, weakness, numbness, tingling, and seizure. 12:42 MS/extremity: Positive for injury or acute deformity, pain, tenderness, of the left middle finger. Exam: 12:42 Constitutional: This is a well developed, well nourished patient who is awake, alert, kb and in no acute distress. Head/Face: Normocephalic, atraumatic. Chest/axilla: Normal chest wall appearance and motion. Nontender with no deformity. No lesions are appreciated. Cardiovascular: Regular rate and rhythm with a normal S1 and S2. No gallops, murmurs, or rubs. Normal PMI, no JVD. No pulse deficits. Respiratory: Lungs have equal breath sounds bilaterally, clear to auscultation and percussion. No rales, rhonchi or wheezes noted. No increased work of breathing, no retractions or nasal flaring. Abdomen/GI: Soft, non-tender, with normal bowel sounds. No distension or tympany. No guarding or rebound. No evidence of tenderness throughout. Skin: Warm, dry with normal turgor. Normal color with no rashes, no lesions, and no evidence of cellulitis. Neuro: Awake and alert, GCS 15, oriented to person, place, time, and situation. Cranial nerves II-XII grossly intact. Motor strength 5/5 in all extremities. Sensory grossly intact. Cerebellar exam normal. Normal gait. 12:42 Musculoskeletal/extremity: Extremities: grossly normal except: noted in the left middle finger: pain, swelling, ROM: intact in all extremities, Circulation is intact in all extremities. Sensation intact. Vital Signs: 10:38 BP 125 / 86; Pulse 58; Resp 16; Temp 98.4; Pulse Ox 98% on R/A; Weight 65.77 kg; la1 MDM: 10:49 Patient medically screened. kb 12:42 Data reviewed: vital signs, nurses notes. Data interpreted: Pulse oximetry: on room air kb is 98 %. Interpretation: normal. Counseling: I had a detailed discussion with the patient and/or guardian regarding: the historical points, exam findings, and any diagnostic results supporting the discharge/admit diagnosis, radiology results, the need for outpatient follow up, a family practitioner, to return to the emergency department if symptoms worsen or persist or if there are any questions or concerns that arise at home. 12/03 10:39 Order name: Hand Left 3 View XRAY; Complete Time: 13:40 la1 12/03 11:28 Order name: Finger Splint; Complete Time: 11:49 kb Administered Medications: 11:40 Drug: traMADol 25 mg {Note: RASS 0.} Route: PO; iw Disposition: 14:11 Co-signature as Attending Physician, Jorgito Kaur MD. rn Disposition: 12/03/18 11:36 Discharged to Home. Impression: Other sprain of left middle finger. - Condition is Stable. - Discharge Instructions: Finger Sprain, Hmlk-gd-Nprm. - Prescriptions for Diclofenac Sodium 75 mg Oral Tablet, Delayed Release (E.C.) - take 1 tablet by ORAL route 2 times per day As needed; 30 tablet. - Medication Reconciliation Form, Thank You Letter, Antibiotic Education, Prescription Opioid Use form. - Follow up: Emergency Department; When: As needed; Reason: Worsening of condition. Follow up: Private Physician; When: 2 - 3 days; Reason: Recheck today's complaints, Continuance of care, Re-evaluation by your physician. Signatures: Dispatcher [employer] EDRowan Grimm, NIKKIE-C REPRODUCTION PRODUCTION MANAGER-Ckb Dianna Walter, RN Jorgito Gaines MD MD rn Attema, Lee, RN RN la1 Corrections: (The following items were deleted from the chart) 11:50 11:36 12/03/2018 11:36 Discharged to Home. Impression: Other sprain of left middle iw finger. Condition is Stable. Forms are Medication Reconciliation Form, Thank You Letter, Antibiotic Education, Prescription Opioid Use. Follow up: Emergency Department; When: As needed; Reason: Worsening of condition. Follow up: Private Physician; When: 2 - 3 days; Reason: Recheck today's complaints, Continuance of care, Re-evaluation by your physician. kb
--- NOTE | 2018-12-03 12:14 | RAD REPORT ---
EXAM DESCRIPTION: RAD - Hand Left 3 View - 12/03/2018 11:11 am CLINICAL HISTORY: PAIN COMPARISON: No comparisons FINDINGS: Soft tissue swelling is seen involving the PIP joint of the third finger. There is subtle irregularity seen along the palmar aspect of the base of the middle phalanx of the third finger which could indicate a subtle fracture.
== END 2018-12-03 11:50 | disposition home or self-care (01) ==
LOC: ER 10:05
DX: S63.613A Unspecified sprain of left middle finger, initial encounter (principal); W18.30XA Fall on same level, unspecified, initial encounter; Y93.9 Activity, unspecified; Y92.9 Unspecified place or not applicable
CPT/HCPCS: 99283

== ENCOUNTER 2018-12-26 13:09 | Emergency (ER) | payer OTHER ==
--- OUTSIDE RECORDS SUMMARY | 2018-12-26 13:12 | XMS REPORT ---
:1945 [facility] Address [address] [place] [address] Care Team Providers Name Role Phone Unavailable [...] No Known DA Active U 2008-05 Other - Allergies 00:00:0 0 Medications This patient has [...] 0.52-1.04 CALCIUM (test code=CA) 9.0 MG/DL 8.4-10.2 [id number] 05:09:00 Test Item Value Reference Range Comments MAGNESIUM (test code=MAG) 1.8 MG/DL 1.6-2.3 CBC W/AUTO [id number] 04:46:00 Test Item Value Reference Range Comments [...] (test code=NRBC#) 0.00 K/mm3 0.0-0.1 BASIC METABOLIC [id number] 06:03:00 Test Item Value Reference Range Comments [...] 0.52-1.04 CALCIUM (test code=CA) 8.7 MG/DL 8.4-10.2 [id number] 06:03:00 Test Item Value Reference Range Comments MAGNESIUM (test code=MAG) 2.1 MG/DL 1.6-2.3 CBC W/AUTO [id number] 05:32:00 Test Item Value Reference Range Comments [...] (test code=NRBC#) 0.00 K/mm3 0.0-0.1 ARTERIAL BLOOD [id number] 12:23:00 Test Item Value Reference Range Comments [...] reported result: FT/NC Edited by: MOON on 10/01/18:987694 1222: DELIVERY previously reported as: FT/NC ABG TEMPERATURE (test 37.0 C >37 code=TEMPA) ABG SITE (test code=SITEA) AL ALLENS TEST (test NA CHECK code=ALLENS) FIO2 (test code=COHBGFFIO2) 40 % ARTERY,[id number] 11:58:00 RUN DATE: 10/01/18 [facility] - LAB PAGE 1 RUN TIME: 1158 Specimen Inquiry RUN USER: INTERFACE PATIENT: WILI SABILLON LOC: ENA U #: [id number] AGE/SX: 72/F ROOM: [facility] RE09/30/18[facility] DR: Rohith Cruz MD : [birth year] BED: A DIS: STATUS: ADM IN TLOC: SPEC #: [id number] RECD: 09/30/18 STATUS: DIEGO BYNUM #: [id number] GUS: 09/30/[address] [facility] [address]: Rohith Cruz MD ENTERED: 09/30/18 SP TYPE: ARTERY, PL OTHR DR: Katie Marc MD, Nioti R MD Pepper, Gregory S MDORDERED: DECAL, SURG PATH LVL 3, SURG PATH LVL 4 CODES: [id number] - PLAQUE, NOS [id number] - ARTERY, NOS [id number] - CAROTID ARTERY ATHEROSCLEROSIS [id number] - CERVIX EXCISIONAL BIOP [id number] - LYMPH NODE, NOS COPIES TO: Katie Marc MD [address] [place] [address] [address] [place] [address] [email or web address] [address] [place] [address] [place] [address] [facility] [place] [address] [place] [address] [facility] [address] [place] [address] ICD CODES: 440 - PROCEDURES: DECAL (10/01/18) SURG PATH LVL 3 (09/30/18) SURG PATH LVL 4 (09/30/18) TISSUES: A. ARTERY, NOS - RT ARTERY PLAQUE B. LYMPH NODE, NOS - RT CERVICAL LYMPH NODE CONTINUED ON NEXT PAGE RUN DATE: 10/01/18 [facility] - LAB PAGE 2 RUN TIME: 1158 Specimen Inquiry RUN USER:INTERFACE SPEC #: [id number] PATIENT: WILI SABILLON #[id number] (Continued) CLINICAL HISTORY RIGHT INTERNAL CAROTID ARTERYSTENOSIS CPT CODES CPT CODE(S): 88780 , 49168 , 06510 , , , , FINAL DIAGNOSIS A. [...] 1158 END OF REPORT - XR CHEST [id number] 07:45:00 Patient Name: WILI SABILLON Unit No: [id number] EXAMS: CPT CODE: [id number] XR CHEST 1V 98115 EXAMINATION: - XR CHEST 1V. LOCATION : [...] Jeffrey High, RT(R) Transcrpt Date/Tm/Trnsp: 10/01/2018 (0745) t.SDR.PR7 Orig Print D/T: S: 10/01/2018 (0748) [facility] NAME: WILI SABILLON [id number] PHYS: [place] [address] : 1945 AGE: 72 SEX: F LOC: Z.SI07 A PHONE #: [phone] EXAM DATE: 10/01/2018 STATUS: ADM IN FAX #: [phone] RADIOLOGY NO: PAGE 1 Signed ReportBASIC METABOLIC [id number] 05:58:00 Test Item Value Reference Range Comments [...] 0.52-1.04 CALCIUM (test code=CA) 8.7 MG/DL 8.4-10.2 [id number] 05:58:00 Test Item Value Reference Range Comments MAGNESIUM (test code=MAG) 1.7 MG/DL 1.6-2.3 CBC W/AUTO [id number] 05:30:00 Test Item Value Reference Range Comments [...] RBC # (test code=NRBC#) 0.00 K/mm3 0.0-0.1 [id number] 22:38:00 Test Item Value Reference Range Comments POTASSIUM (test code=K) 3.3 MMOL/L 3.5-5.1 [id number] 22:38:00 Test Item Value Reference Range Comments MAGNESIUM (test code=MAG) 1.7 MG/DL 1.6-2.3 ARTERIAL BLOOD [id number] 17:57:00 Test Item Value Reference Range Comments [...] FIO2 (test code=COHBGFFIO2) 40 % BASIC METABOLIC [id number] 16:18:00 Test Item Value Reference Range Comments [...] 0.52-1.04 CALCIUM (test code=CA) 8.9 MG/DL 8.4-10.2 [id number] 16:18:00 Test Item Value Reference Range Comments MAGNESIUM (test code=MAG) 1.3 MG/DL 1.6-2.3 CBC W/AUTO [id number] 16:06:00 Test Item Value Reference Range Comments [...] code=NRBC#) 0.00 K/mm3 0.0-0.1 - XR CHEST [id number] 15:29:00 Patient Name: WILI SABILLON Unit No: [id number] EXAMS: CPT CODE: [id number] XR CHEST 1V 22248 EXAM: CHEST ONE VIEW INDICATION: Postop LOCATION: [...] Alhaji Cha RT(R) Transcrpt Date/Tm/Trnsp: 09/30/2018 (1529) 16 OrigPrint D /T: S: 09/30/2018 (9202) [facility] NAME: WILI SABILLON [id number] PHYS: [place] [address] : 1945 AGE: 72 SEX: F LOC: Z.SI07 Stpehy PHONE #: [phone] EXAM DATE: 09/30/2018 STATUS: ADM IN FAX #: [phone] RADIOLOGY NO: PAGE 1 Signed ReportHIV 12 AB [id number] 19 :14:00 Test Item Value Reference Range Comments AB HIV 1 2 (test NON REACTIVE NON-REAC NOTE: A NONREACTIVE RESULT code=ADI39JW) INDICATES THAT HIV-1 AND HIV-2ANTIBODIES HAVE NOT BEEN FOUND IN THIS PATIENT SPECIMEN. ANON-REACTIVE RESULT, HOWEVER, DOES NOT PRECLUDE PREVIOUSEXPOSURE OR INFECTION WITH HIV1. AG HIV1 P24 (test NON REACTIVE NONE REAC code=CFK2M15) PROTHROMBIN [id number] 14:22:00 Test Item Value Reference Range Comments [...] recurrent systemic embolism. 3.0 - 4.5 PTT [id number] 14:22:00 Test Item Value Reference Range Comments PTT ACTIVATED (test code=APTT) 29.3 SECONDS 22.0-33.0 BASIC METABOLIC [id number] 14:18:00 Test Item Value Reference Range Comments [...] 9.9 MG/DL 8.4-10.2 - XR CHEST 2 [id number] 14:14:00 Patient Name: WILI SABILLON Unit No: [id number] EXAMS: CPT CODE: [id number] XR CHEST 2 V 36241 EXAM: CHEST 2 VIEWS INDICATION: PRE-OP LOCATION [...] 09/29/2018 (1414) LakeMD16 Orig Print D/T: S: (1708) [facility] NAME: WILI SABILLON [id number] PHYS: [place] [address] : 1945 AGE: 72 SEX: F LOC: Z.3AHU PHONE #: [phone] EXAM DATE: 09/29/2018 STATUS: PRE IN FAX #: [phone] RADIOLOGY NO: PAGE 1 Signed ReportCBC W/AUTO [id number] 13:57:00 Test Item Value Reference Range Comments [...] (test code=NRBC#) 0.00 K/mm3 0.0-0.1 BASIC METABOLIC [id number] 06:04:00 Test Item Value Reference Range Comments [...] HIGH.........130-159 mg/dL HIGH.........160-189 mg/dL VERY HIGH.........>/=190 mg/dL [id number] 06:04:00 Test Item Value Reference Range Comments MAGNESIUM (test code=MAG) 1.9 MG/DL 1.6-2.3 PROTHROMBIN [id number] 06:00:00 Test Item Value Reference Range Comments [...] systemic embolism. 3.0 - 4.5 Comments to Android Software Engineer: WILL BRING TO LABPTT [id number] 06:00:00 Test Item Value Reference Range Comments PTT ACTIVATED (test code=APTT) 29.3 SECONDS 22.0-33.0 Comments to Android Software Engineer: WILL BRING TO LABBASIC METABOLIC [id number] 05:54 :00 Test Item Value Reference Range [...] code=HDL) LIPOPROTEIN LDL (test MG/DL 0-99 code=LDL) [id number] 05:54:00 Test Item Value Reference Range Comments MAGNESIUM (test code=MAG) 1.9 MG/DL 1.6-2.3 CBC W/AUTO [id number] 05:41:00 Test Item Value Reference Range Comments [...]
--- NOTE | 2018-12-26 15:01 | EDPHYS ---
Physician Documentation [facility] Name: Racheal Dia Age: 73 yrs Sex: Female : 1945 Arrival Date: 12/26/2018 Time: 13:13 Bed 11 Private MD: ED Physician Jorgito Kaur HPI: 12/26 14:56 This 73 yrs old Black Female presents to ER via Ambulatory with complaints of Sore kb Throat, Ear Pain. 14:56 The patient has not experienced similar symptoms in the past. The patient has not kb recently seen a physician. 14:56 The patient presents with a fullness. The complaints affect the right ear and left ear. kb Onset: The symptoms/episode began/occurred 2 day(s) ago. Modifying factors: The symptoms are alleviated by nothing, the symptoms are aggravated by nothing. Associated signs and symptoms: The patient has no apparent associated signs or symptoms. Severity of symptoms: At their worst the symptoms were moderate in the emergency department the symptoms are unchanged. Pt reports nasal congestion and fullness to bilateral ears for a few days. Denies fever. Historical: - Allergies: 13:20 No Known Allergies; hb - Home Meds: 13:20 aspirin 81 mg Oral chew [Active]; atorvastatin Oral [Active]; clopidogrel Oral hb [Active]; Isosorbide Mononitrate Oral [Active]; levothyroxine oral [Active]; losartan Oral [Active]; Metoprolol Tartrate Oral [Active]; - PMHx: 13:20 CHF; Hypertension; Hypothyroidism; hb - Immunization history:: Adult Immunizations up to date. - Social history:: Smoking status: Patient/guardian denies using tobacco. - Ebola Screening: : No symptoms or risks identified at this time. ROS: 14:54 Constitutional: Negative for fever, chills, and weight loss, Neck: Negative for injury, kb pain, and swelling, Cardiovascular: Negative for chest pain, palpitations, and edema, Respiratory: Negative for shortness of breath, cough, wheezing, and pleuritic chest pain, Abdomen/GI: Negative for abdominal pain, nausea, vomiting, diarrhea, and constipation, MS/Extremity: Negative for injury and deformity, Skin: Negative for injury, rash, and discoloration, Neuro: Negative for headache, weakness, numbness, tingling, and seizure. 14:54 ENT: Positive for ear pain, sinus congestion. Exam: 14:54 Constitutional: This is a well developed, well nourished patient who is awake, alert, kb and in no acute distress. Head/Face: Normocephalic, atraumatic. Neck: Trachea midline, no thyromegaly or masses palpated, and no cervical lymphadenopathy. Supple, full range of motion without nuchal rigidity, or vertebral point tenderness. No Meningismus. Chest/axilla: Normal chest wall appearance and motion. Nontender with no deformity. No lesions are appreciated. Cardiovascular: Regular rate and rhythm with a normal S1 and S2. No gallops, murmurs, or rubs. Normal PMI, no JVD. No pulse deficits. Respiratory: Lungs have equal breath sounds bilaterally, clear to auscultation and percussion. No rales, rhonchi or wheezes noted. No increased work of breathing, no retractions or nasal flaring. Abdomen/GI: Soft, non-tender, with normal bowel sounds. No distension or tympany. No guarding or rebound. No evidence of tenderness throughout. Skin: Warm, dry with normal turgor. Normal color with no rashes, no lesions, and no evidence of cellulitis. MS/ Extremity: Pulses equal, no cyanosis. Neurovascular intact. Full, normal range of motion. Neuro: Awake and alert, GCS 15, oriented to person, place, time, and situation. Cranial nerves II-XII grossly intact. Motor strength 5/5 in all extremities. Sensory grossly intact. Cerebellar exam normal. Normal gait. 14:54 ENT: External ear(s): are unremarkable, Ear canal(s): are normal, TM's: fluid levels, bilaterally, Nose: is normal, Mouth: is normal, Posterior pharynx: is normal. Vital Signs: 13:18 BP 134 / 88; Pulse 69; Resp 16; Temp 97.6; Pulse Ox 97% on R/A; Weight 65.77 kg; Height hb 5 ft. 1 in. (154.94 cm); Pain 2/10; 13:18 Body Mass Index 27.40 (65.77 kg, 154.94 cm) hb MDM: 14:14 Patient medically screened. 14:54 Data reviewed: vital signs, nurses notes. Data interpreted: Pulse oximetry: on room air kb is 97 %. Interpretation: normal. Counseling: I had a detailed discussion with the patient and/or guardian regarding: the historical points, exam findings, and any diagnostic results supporting the discharge/admit diagnosis, lab results, the need for outpatient follow up, a family practitioner, to return to the emergency department if symptoms worsen or persist or if there are any questions or concerns that arise at home. 12/26 13:19 Order name: Strep; Complete Time: 14:14 hb 12/26 13:19 Order name: Flu; Complete Time: 14:14 hb 12/26 13:52 Order name: Throat Culture EDMS Administered Medications: No medications were administered Disposition: 19:01 Co-signature as Attending Physician, Jorgito Kaur MD. rn Disposition: 12/26/18 14:59 Discharged to Home. Impression: Acute sinusitis. - Condition is Stable. - Discharge Instructions: Sinusitis, Adult, [place]. - Prescriptions for Prednisone 20 mg Oral Tablet - take 1 tablet by ORAL route once daily for 5 days; 5 tablet. - Medication Reconciliation Form, Thank You Letter, Antibiotic Education, Prescription Opioid Use form. - Follow up: Emergency Department; When: As needed; Reason: Worsening of condition. Follow up: Private Physician; When: 2 - 3 days; Reason: Recheck today's complaints, Continuance of care, Re-evaluation by your physician. - Notes: Take a daily antihistamine (Claritin, zyrtec, or reza) and Flonase as directed Signatures: Dispatcher [employer] EDNE Rowan Arechiga, CAGE CASHIER-C CAGE CASHIER-Ckb Jorgito Kaur MD MD rn Calderon, Audri RN RN aa5 Maisha Segura RN RN Corrections: (The following items were deleted from the chart) 15:12 14:59 12/26/2018 14:59 Discharged to Home. Impression: Acute sinusitis. Condition is aa5 Stable. Forms are Medication Reconciliation Form, Thank You Letter, Antibiotic Education, Prescription Opioid Use. Follow up: Emergency Department; When: As needed; Reason: Worsening of condition. Follow up: Private Physician; When: 2 - 3 days; Reason: Recheck today's complaints, Continuance of care, Re-evaluation by your physician. kb
--- NOTE | 2018-12-26 15:01 | ER ---
Nurse's Notes [facility] Name: Racheal Dia Age: 73 yrs Sex: Female : 1945 Arrival Date: 12/26/2018 Time: 13:13 Bed 11 Private MD: Diagnosis: Acute sinusitis Presentation: 12/26 13:15 Presenting complaint: Sinus congestion, body aches, malaise, and sore throat x 2 days. hb Denies fever. Transition of care: patient was not received from another setting of care. Onset of symptoms was December 25, 2018. Risk Assessment: Do you want to hurt yourself or someone else? Patient reports no desire to harm self or others. Initial Sepsis Screen: Does the patient meet any 2 criteria? No. Patient's initial sepsis screen is negative. Does the patient have a suspected source of infection? No. Patient's initial sepsis screen is negative. Care prior to arrival: None. 13:15 Method Of Arrival: Ambulatory hb 13:15 Acuity: AISHA 4 hb Historical: - Allergies: 13:20 No Known Allergies; hb - Home Meds: 13:20 aspirin 81 mg Oral chew [Active]; atorvastatin Oral [Active]; clopidogrel Oral hb [Active]; Isosorbide Mononitrate Oral [Active]; levothyroxine oral [Active]; losartan Oral [Active]; Metoprolol Tartrate Oral [Active]; - PMHx: 13:20 CHF; Hypertension; Hypothyroidism; hb - Immunization history:: Adult Immunizations up to date. - Social history:: Smoking status: Patient/guardian denies using tobacco. - Ebola Screening: : No symptoms or risks identified at this time. Screenin:15 Abuse screen: Denies threats or abuse. Nutritional screening: No deficits noted. aa5 Tuberculosis screening: No symptoms or risk factors identified. Fall Risk None identified. Assessment: 14:10 General: Appears comfortable, Behavior is calm, cooperative. Pain: Complains of pain in aa5 whole body Quality of pain is described as aching. Neuro: Level of Consciousness is awake, alert, obeys commands, Oriented to person, place, time, situation. Cardiovascular: Patient's skin is warm and dry. Respiratory: Airway is patent Respiratory effort is even, unlabored, Respiratory pattern is regular, symmetrical, Breath sounds are clear bilaterally. GI: No signs and/or symptoms were reported involving the gastrointestinal system. : No signs and/or symptoms were reported regarding the genitourinary system. EENT: Throat is pink Reports nasal congestion. Derm: Skin is dry, Skin is normal, Skin temperature is warm. Musculoskeletal: Range of motion: intact in all extremities. 15:10 Neuro: Level of Consciousness is awake, alert, obeys commands, Oriented to person, aa5 place, time, situation. Respiratory: Airway is patent Respiratory effort is even, unlabored, Respiratory pattern is regular, symmetrical. Derm: Skin is dry, Skin is normal, Skin temperature is warm. Vital Signs: 13:18 BP 134 / 88; Pulse 69; Resp 16; Temp 97.6; Pulse Ox 97% on R/A; Weight 65.77 kg; Height hb 5 ft. 1 in. (154.94 cm); Pain 2/10; 13:18 Body Mass Index 27.40 (65.77 kg, 154.94 cm) hb ED Course: 13:13 Patient arrived in ED. rg4 13:18 Triage completed. hb 13:18 Arm band placed on. hb 14:12 Elva Patel, RN is Primary Nurse. aa5 14:14 Rowan Arechiga FNP-C is PHCP. kb 14:14 Jorgito Kaur MD is Attending Physician. kb 15:10 Patient has correct armband on for positive identification. aa5 15:10 No provider procedures requiring assistance completed. Patient did not have IV access aa5 during this emergency room visit. Administered Medications: No medications were administered Outcome: 14:59 Discharge ordered by . kb 15:10 Discharged to home ambulatory, with family. aa5 15:10 Condition: stable 15:10 Discharge instructions given to patient, Instructed on discharge instructions, follow up and referral plans. medication usage, Demonstrated understanding of instructions, follow-up care, medications, Prescriptions given X 1. 15:12 Patient left the ED. aa5 Signatures: Rowan Arechiga FNP-C FNP-Ckb Calderon, Audri RN RN aa5 Maisha Segura RN RN Kaykay Viveros rg4
[2018-12-26 15:18] VITALS: BP 134/88; TEMP 97.6; O2SAT 97
== END 2018-12-26 15:12 | disposition home or self-care (01) ==
LOC: ER 13:09
DX: J01.90 Acute sinusitis, unspecified (principal); I10 Essential (primary) hypertension; I50.9 Heart failure, unspecified; E03.9 Hypothyroidism, unspecified; Z79.82 Long term (current) use of aspirin
CPT/HCPCS: 87070; 87081; 87804; 99282

== ENCOUNTER 2019-01-21 09:32 | Emergency (ER) | payer OTHER ==
[2019-01-21] MEDS ORDERED: BISACODYL 10 MG RECTAL SUPP ONE (09:57)
[2019-01-21] MEDS ORDERED: LACTULOSE 20 GM/30 ML UCUP ONE (09:57)
[2019-01-21] MEDS ORDERED: NA CHLORIDE 0.9% 1,000 ML ONE (09:57)
[2019-01-21 10:38] LABS: Absolute Lymphocytes (CBC) 1.1 K/uL (0.7-4.9); Basophils % 0.8 % (0-1.3); Hematocrit 41.9 % (36.0-45.0); Lymphocytes % 19.9 % (15.3-44.8); MPV 7.4 fL (7.6-11.3)
--- NOTE | 2019-01-21 10:58 | RAD REPORT ---
EXAM DESCRIPTION: RAD - Chest Single View - 01/21/2019 10:24 am CLINICAL HISTORY: ABDOMINAL DISTENTION Chest pain. COMPARISON: Chest Pa And Lat (2 Views) dated 02/25/2018; Chest Pa And Lat (2 Views) dated 09/06/2016; CHEST PA AND LAT 2 VIEW dated 03/26/2008; CHEST PA AND LAT 2 VIEW dated 11/15/2003 FINDINGS: Portable technique limits examination quality. The lungs are grossly clear. The heart is normal in size. Tortuous thoracic aorta. No displaced fract ures. IMPRESSION: No acute intrathoracic process suspected.
[2019-01-21 11:28] LABS: Protime INR 1.02
[2019-01-21 11:53] LABS: ALT/SGPT 16 U/L (12-78); Albumin 3.5 g/dL (3.4-5.0); Alkaline Phosphatase 81 U/L (45-117); BUN Blood Urea Nitrogen 10 mg/dL (7-18); Bicarbonate 32 mmol/L (21-32); Bilirubin Direct 0.1 mg/dL (0-0.2); Bilirubin Total 0.5 mg/dL (0.2-1.0); Glucose Level 86 mg/dL (74-106); Lipase 75 U/L (73-393); NT PRO-BNP 192 pg/mL (<125); Protein, Total 7.8 g/dL (6.4-8.2); Sodium Level 130 mmol/L (136-145); Troponin (Emerg Dept Use Only) < 0.02 ng/mL (0.0-0.045)
[2019-01-21 11:54] LABS: Potassium 3.8 mmol/L (3.5-5.1)
[2019-01-21 11:55] LABS: AST/SGOT 14 U/L (15-37); Magnesium 1.9 mg/dL (1.8-2.4)
--- NOTE | 2019-01-21 12:11 | EKG ---
Test Date: 2019-01-21 Test Time: 10:15:36 Retail Service Technician: MELANIE MEASUREMENT RESULTS: Intervals: Rate: 66 NV: 164 QRSD: 78 QT: 392 QTc: 410 [place]: P: 72 NV: 164 QRS: 51 T: 76 INTERPRETIVE STATEMENTS: Normal sinus rhythm Normal ECG No previous ECG available for comparison Electronically Signed On 01-21-19 12:10:19 CDT by Mani Sams
[2019-01-21] MEDS ORDERED: ONDANSETRON 4 MG/2 ML VIAL ONE (12:52)
[2019-01-21] MEDS ORDERED: MORPHINE 2 MG/ML SYR ONE (12:52)
--- NOTE | 2019-01-21 13:00 | RAD REPORT ---
EXAM DESCRIPTION: CT - Abdomen Pelvis W Contrast - 01/21/2019 12:37 pm CLINICAL HISTORY: Abdominal pain. COMPARISON: None. TECHNIQUE: Computed axial tomography of the abdomen and pelvis was obtained. 100 cc Isovue-300 is ad ministered intravenously. Oral contrast was given. All CT scans are performed using dose optimization technique as appropriate and may include automated exposure control or mA/KV adjustment according to patient size. FINDINGS: Extrarenal pelves are present. Mild dilatation of the left renal pelvis and proximal left ureter The liver, pancreas, adrenals appear unremarkable. A couple of small splenic nodules are present the left upper quadrant. Otherwise the spleen is absent . The appendix is normal caliber. There is no evidence of diverticulitis 15 millimeters calcification lower anterior pelvis Cecum is upper limits normal caliber measuring 5.5 centimeters IMPRESSION: Mild left hydronephrosis and dilatation of the proximal left ureter without visualizatio n of a ureteral calculus could be secondary to a stricture, crossing vessel or a small mass. 15 millimeter calcification lower anterior pelvis probably lies outside of the urethra. If the patien t has clinical symptoms to suggest urethral pathology then a voiding cystourethrogram would be recomm ended.
--- NOTE | 2019-01-21 14:24 | EDPHYS ---
Physician Documentation [facility] Name: Racheal Dia Age: 73 yrs Sex: Female : 1945 Arrival Date: 01/21/2019 Time: 09:34 Bed 6 Private MD: Karel Ramos ED Physician Jaret Swift HPI: 01/21 10:09 This 73 yrs old Black Female presents to ER via Ambulatory with complaints of jaret Constipation. 10:09 The patient presents with abdominal pain abdominal distention in the upper abdomen, in jaret the lower abdomen. Onset: The symptoms/episode began/occurred 5 day(s) ago. The patient presents to the emergency department with nausea, vomiting, that is intermittent, abdominal pain, described as constant, crampy. Onset: The symptoms/episode began/occurred 4 day(s) ago. Possible causes: unknown. Associated signs and symptoms: The patient has no apparent associated signs or symptoms. Modifying factors: The symptoms are alleviated by nothing, the symptoms are aggravated by nothing. Historical: - Allergies: 09:38 No Known Allergies; tw2 - Home Meds: 09:38 Metoprolol Tartrate Oral [Active]; losartan Oral [Active]; levothyroxine oral [Active]; tw2 atorvastatin Oral [Active]; aspirin 81 mg Oral chew [Active]; clopidogrel Oral [Active]; Isosorbide Mononitrate Oral [Active]; - PMHx: 09:38 CHF; Hypertension; Hypothyroidism; tw2 - Immunization history:: Adult Immunizations. - Social history:: Smoking status: . - Ebola Screening: : Patient denies travel to an Ebola-affected area in the 21 days before illness onset. - Family history:: not pertinent. ROS: 10:09 Constitutional: Negative for fever, chills, and weight loss, Eyes: Negative for injury, jaret pain, redness, and discharge, ENT: Negative for injury, pain, and discharge, Neck: Negative for injury, pain, and swelling, Cardiovascular: Negative for chest pain, palpitations, and edema, Respiratory: Negative for shortness of breath, cough, wheezing, and pleuritic chest pain, Back: Negative for injury and pain, : Negative for injury, bleeding, discharge, and swelling, MS/Extremity: Negative for injury and deformity, Skin: Negative for injury, rash, and discoloration, Neuro: Negative for headache, weakness, numbness, tingling, and seizure, Psych: Negative for depression, anxiety, suicide ideation, homicidal ideation, and hallucinations, Allergy/Immunology: Negative for hives, rash, and allergies, Endocrine: Negative for neck swelling, polydipsia, polyuria, polyphagia, and marked weight changes, Hematologic/Lymphatic: Negative for swollen nodes, abnormal bleeding, and unusual bruising. 10:09 Abdomen/GI: Positive for abdominal pain, constipation. Exam: 10:09 Constitutional: This is a well developed, well nourished patient who is awake, alert, jaret and in no acute distress. Head/Face: Normocephalic, atraumatic. Eyes: Pupils equal round and reactive to light, extra-ocular motions intact. Lids and lashes normal. Conjunctiva and sclera are non-icteric and not injected. Cornea within normal limits. Periorbital areas with no swelling, redness, or edema. ENT: Nares patent. No nasal discharge, no septal abnormalities noted. Tympanic membranes are normal and external auditory canals are clear. Oropharynx with no redness, swelling, or masses, exudates, or evidence of obstruction, uvula midline. Mucous membranes moist. Neck: Trachea midline, no thyromegaly or masses palpated, and no cervical lymphadenopathy. Supple, full range of motion without nuchal rigidity, or vertebral point tenderness. No Meningismus. Chest/axilla: Normal chest wall appearance and motion. Nontender with no deformity. No lesions are appreciated. Cardiovascular: Regular rate and rhythm with a normal S1 and S2. No gallops, murmurs, or rubs. Normal PMI, no JVD. No pulse deficits. Respiratory: Lungs have equal breath sounds bilaterally, clear to auscultation and percussion. No rales, rhonchi or wheezes noted. No increased work of breathing, no retractions or nasal flaring. Abdomen/GI: Soft, non-tender, with normal bowel sounds. No distension or tympany. No guarding or rebound. No evidence of tenderness throughout. Back: No spinal tenderness. No costovertebral tenderness. Full range of motion. Female : Normal external genitalia. Skin: Warm, dry with normal turgor. Normal color with no rashes, no lesions, and no evidence of cellulitis. MS/ Extremity: Pulses equal, no cyanosis. Neurovascular intact. Full, normal range of motion. Neuro: Awake and alert, GCS 15, oriented to person, place, time, and situation. Cranial nerves II-XII grossly intact. Motor strength 5/5 in all extremities. Sensory grossly intact. Cerebellar exam normal. Normal gait. Psych: Awake, alert, with orientation to person, place and time. Behavior, mood, and affect are within normal limits. 14:27 Musculoskeletal/extremity: DVT Exam: No signs of deep vein thrombosis. no pain, no jaret swelling, no tenderness, negative Homans' sign noted on exam, no appreciated bluish discoloration, no erythema, no increased warmth. Vital Signs: 09:41 BP 151 / 98; Pulse 67; Resp 16; Temp 97.1(TE); Pulse Ox 99% on R/A; Weight 65.77 kg; ss Height 5 ft. 1 in. (154.94 cm); Pain 8/10; 10:38 BP 159 / 97; Pulse 68; Resp 17; Pulse Ox 98% on R/A; aj1 11:33 BP 170 / 102; Pulse 68; Resp 17; Pulse Ox 97% on R/A; tw2 12:52 BP 151 / 108; Pulse 86; Resp 17; Pulse Ox 99% on R/A; tw2 14:02 BP 174 / 112; Pulse 75; Resp 17; Pulse Ox 95% on R/A; tw2 09:41 Body Mass Index 27.40 (65.77 kg, 154.94 cm) ss MDM: 09:47 Patient medically screened. [facility] 10:12 Data reviewed: vital signs, nurses notes, lab test result(s), EKG, radiologic studies, [facility] CT scan. 01/21 09:49 Order name: Basic Metabolic Panel; Complete Time: 12:36 [facility] 01/21 09:49 Order name: CBC with Diff; Complete Time: 10:52 [facility] 01/21 09:49 Order name: LFT's; Complete Time: 12:36 [facility] 01/21 09:49 Order name: Magnesium; Complete Time: 12:36 [facility] 01/21 09:49 Order name: NT PRO-BNP; Complete Time: 12:36 [facility] 01/21 09:49 Order name: PT-INR; Complete Time: 12:36 [facility] 01/21 09:49 Order name: Troponin (emerg Dept Use Only); Complete Time: 12:36 [facility] 01/21 09:49 Order name: XRAY Chest (1 view); Complete Time: 11:12 [facility] 01/21 09:49 Order name: Lipase; Complete Time: 12:36 [facility] 01/21 09:49 Order name: CT Abd/Pelvis - PO and IV Contrast; Complete Time: 13:11 [facility] 01/21 13:13 Order name: Urine Culture [facility] 01/21 14:31 Order name: Urine Dipstick--Ancillary (enter results) 01/21 09:49 Order name: EKG; Complete Time: 09:50 [facility] 01/21 09:49 Order name: Cardiac monitoring; Complete Time: 09:54 [facility] 01/21 09:49 Order name: EKG - Nurse/Tech; Complete Time: 10:36 [facility] 01/21 09:49 Order name: IV Saline Lock; Complete Time: 10:36 [facility] 01/21 09:49 Order name: Labs collected and sent; Complete Time: 09:54 [facility] 01/21 09:49 Order name: O2 Per Protocol; Complete Time: 09:54 [facility] 01/21 09:49 Order name: O2 Sat Monitoring; Complete Time: 09:55 [facility] 01/21 10:43 Order name: Labs - recollect needed; Complete Time: 11:40 01/21 13:13 Order name: Urine Dipstick-Ancillary (obtain specimen); Complete Time: 14:24 [facility] Administered Medications: 10:30 Drug: Lactulose 30 grams Volume: 45 ml; Route: PO; aj1 11:28 Follow up: Response: No adverse reaction; Marked relief of symptoms; Marked relief of tw2 symptoms, pt had large BM at this time, pt still complaining of abdomen pain 10:35 Drug: NS 0.9% 500 ml Volume: 500 ml; Route: IV; Rate: 1 bolus; Site: right antecubital; aj1 11:27 Follow up: Response: No adverse reaction; IV Status: Completed infusion; IV Intake: tw2 500ml 10:35 Drug: Dulcolax Suppository 10 mg Route: IN; aj1 11:28 Follow up: Response: No adverse reaction tw2 11:28 Drug: NS 0.9% 1000 ml Route: IV; Rate: 125 ml/hr; Site: right antecubital; tw2 14:42 Follow up: IV Status: Order to discontinue infusion tw2 13:05 Drug: morphine 2 mg Route: IVP; Site: right antecubital; ch 14:20 Follow up: Response: No adverse reaction; Pain is decreased; RASS: Alert and Calm (0) tw2 13:40 Drug: Zofran 4 mg Route: IVP; Site: right antecubital; ch 14:01 Follow up: Response: No adverse reaction tw2 14:27 Drug: Norvasc 10 mg Route: PO; tw2 14:41 Follow up: Response: No adverse reaction tw2 Disposition: 01/21/19 14:23 Discharged to Home. Impression: Abdominal tenderness, Constipation, Hydronephrosis with ureteral stricture, not elsewhere classified, Essential (primary) hypertension. - Condition is Stable. - Discharge Instructions: Abdominal Pain, Adult, Constipation, Adult, Hypertension, Constipation, Adult, [id number], Abdominal Pain, Adult, [id number], Hydronephrosis, Hypertension, [id number]. - Prescriptions for Bentyl 20 mg Oral Tablet - take 1 tablet by ORAL route every 6 hours As needed; 20 tablet. Lactulose 10 gram/15 mL Oral Solution - take 15 milliliter by ORAL route every 12 hours; 160 milliliter. Dulcolax 10 mg Rectal Suppository - insert 1 suppository by RECTAL route every 12 hours As needed; 10 suppository. Miralax 17 gram/dose Oral - take 1 packet by ORAL route once daily dilute powder in 8 ounces of water or juice; 14 packet. Cipro 250 mg Oral Tablet - take 1 tablet by ORAL route every 12 hours; 14 tablet. - Medication Reconciliation Form, Thank You Letter, Antibiotic Education, Prescription Opioid Use form. - Follow up: Karel Ramos; When: 2 - 3 days; Reason: Recheck today's complaints, Continuance of care, Re-evaluation by your physician. Follow up: Kapil Steinberg MD; When: 2 - 3 days; Reason: Recheck today's complaints, Continuance of care, Re-evaluation by your physician. Follow up: Young Victoria MD; When: 2 - 3 days; Reason: Recheck today's complaints, Continuance of care, Re-evaluation by your physician. - Problem is new. - Symptoms have improved. Signatures: Dispatcher [employer] EDMS Catalina Quintana RN RN Kelly Damon RN RN aj1 Jaret Swift MD MD cha Wise, Tara RN RN tw2 Makayla Bedoya gm Corrections: (The following items were deleted from the chart) 14:24 14:23 01/21/2019 14:23 Discharged to Home. Impression: Abdominal tenderness; jaret Constipation; Hydronephrosis with ureteral stricture, not elsewhere classified; Essential (primary) hypertension. Condition is Stable. Discharge Instructions: Abdominal Pain, Adult, Constipation, Adult, Constipation, Adult, [id number], Abdominal Pain, Adult, [id number]. Prescriptions for Bentyl 20 mg Oral Tablet - take 1 tablet by ORAL route every 6 hours As needed; 20 tablet, Lactulose 10 gram/15 mL Oral Solution - take 30 milliliters by ORAL route once daily; 160 milliliter, Dulcolax 10 mg Rectal Suppository - insert 1 suppository by RECTAL route every 12 hours As needed; 10 suppository, Miralax 17 gram/dose Oral - take 1 packet by ORAL route once daily dilute powder in 8 ounces of water or juice; 14 packet. and Forms are Medication Reconciliation Form, Thank You Letter, Antibiotic Education, Prescription Opioid Use. Follow up: Kaerl Ramos; When: 2 - 3 days; Reason: Recheck today's complaints, Continuance of care, Re-evaluation by your physician. Problem is new. Symptoms have improved. jaret 14:43 14:24 01/21/2019 14:23 Discharged to Home. Impression: Abdominal tenderness; tw2 Constipation; Hydronephrosis with ureteral stricture, not elsewhere classified; Essential (primary) hypertension. Condition is Stable. Discharge Instructions: Abdominal Pain, Adult, Constipation, Adult, Constipation, Adult, [id number], Abdominal Pain, Adult, [id number]. Prescriptions for Bentyl 20 mg Oral Tablet - take 1 tablet by ORAL route every 6 hours As needed; 20 tablet, Lactulose 10 gram/15 mL Oral Solution - take 30 milliliters by ORAL route once daily; 160 milliliter, Dulcolax 10 mg Rectal Suppository - insert 1 suppository by RECTAL route every 12 hours As needed; 10 suppository, Miralax 17 gram/dose Oral - take 1 packet by ORAL route once daily dilute powder in 8 ounces of water or juice; 14 packet. and Forms are Medication Reconciliation Form, Thank You Letter, Antibiotic Education, Prescription Opioid Use. Follow up: Karel Ramos; When: 2 - 3 days; Reason: Recheck today's complaints, Continuance of care, Re-evaluation by your physician. Follow up: Kapil Steinberg; When: 2 - 3 days; Reason: Recheck today's complaints, Continuance of care, Re-evaluation by your physician. Follow up: Young Victoria; When: 2 - 3 days; Reason: Recheck today's complaints, Continuance of care, Re-evaluation by your physician. Problem is new. Symptoms have improved. jaret
--- NOTE | 2019-01-21 14:24 | ER ---
Nurse's Notes [facility] Name: Racheal Dia Age: 73 yrs Sex: Female : 1945 Arrival Date: 01/21/2019 Time: 09:34 Bed 6 Private MD: Karel Ramos Diagnosis: Abdominal tenderness;Constipation;Hydronephrosis with ureteral stricture, not elsewhere classified;Essential (primary) hypertension Presentation: 01/21 09:39 Risk Assessment: Do you want to hurt yourself or someone else? Patient reports no tw2 desire to harm self or others. Care prior to arrival: None. 09:39 Presenting complaint: Child states: Daughter reports patient has been constipated x 4 ss days and is having abdominal discomfort. Transition of care: patient was not received from another setting of care. Onset of symptoms was January 17, 2019. Initial Sepsis Screen: Does the patient meet any 2 criteria? No. Patient's initial sepsis screen is negative. Does the patient have a suspected source of infection? No. Patient's initial sepsis screen is negative. 09:39 Method Of Arrival: Ambulatory ss 09:39 Acuity: AISHA 3 ss Historical: - Allergies: 09:38 No Known Allergies; tw2 - Home Meds: 09:38 Metoprolol Tartrate Oral [Active]; losartan Oral [Active]; levothyroxine oral [Active]; tw2 atorvastatin Oral [Active]; aspirin 81 mg Oral chew [Active]; clopidogrel Oral [Active]; Isosorbide Mononitrate Oral [Active]; - PMHx: 09:38 CHF; Hypertension; Hypothyroidism; tw2 - Immunization history:: Adult Immunizations. - Social history:: Smoking status: . - Ebola Screening: : Patient denies travel to an Ebola-affected area in the 21 days before illness onset. - Family history:: not pertinent. Screenin:37 Abuse screen: Denies threats or abuse. Nutritional screening: No deficits noted. tw2 Tuberculosis screening: No symptoms or risk factors identified. Fall Risk None identified. Assessment: 10:12 General: Appears in no apparent distress. well groomed, Behavior is calm, cooperative, tw2 appropriate for age. Pain: Denies pain. Neuro: Level of Consciousness is awake, alert, obeys commands, Oriented to person, place, time, situation. Cardiovascular: Heart tones S1 S2 Patient's skin is warm and dry. Respiratory: Airway is patent Respiratory effort is even, unlabored, Respiratory pattern is regular, symmetrical, Breath sounds are clear bilaterally. GI: Bowel sounds present X 4 quads. Abd is soft and non tender X 4 quads. Abd is soft Reports constipation. : No signs and/or symptoms were reported regarding the genitourinary system. EENT: No signs and/or symptoms were reported regarding the EENT system. Derm: No signs and/or symptoms reported regarding the dermatologic system. Musculoskeletal: Range of motion: intact in all extremities. 10:38 Reassessment: Patient appears in no apparent distress at this time. No changes from aj1 previously documented assessment. Patient and/or family updated on plan of care and expected duration. Pain level reassessed. Patient is alert, oriented x 3, equal unlabored respirations, skin warm/dry/pink. 11:29 Reassessment: pt had large BM at this time. tw2 11:33 Reassessment: Patient appears in no apparent distress at this time. No changes from tw2 previously documented assessment. Patient and/or family updated on plan of care and expected duration. Pain level reassessed. Patient is alert, oriented x 3, equal unlabored respirations, skin warm/dry/pink. Patient states symptoms have improved. 12:34 Reassessment: pt is in CT at this time. tw2 12:52 Reassessment: Patient and/or family updated on plan of care and expected duration. Pain tw2 level reassessed. Patient is alert, oriented x 3, equal unlabored respirations, skin warm/dry/pink. pt back from CT c/o abd pain 01/22, provider notified, medicated as ordered Patient states symptoms have not improved. 14:03 Reassessment: Patient appears in no apparent distress at this time. No changes from tw2 previously documented assessment. Patient and/or family updated on plan of care and expected duration. Pain level reassessed. 14:42 Reassessment: Patient appears in no apparent distress at this time. Patient and/or tw2 family updated on plan of care and expected duration. Pain level reassessed. Patient is alert, oriented x 3, equal unlabored respirations, skin warm/dry/pink. 14:42 Reassessment: morphine 2mg was ordered twice, repeat if needed, 2nd dose not needed, pt tw2 states "im ready to go home". Vital Signs: 09:41 BP 151 / 98; Pulse 67; Resp 16; Temp 97.1(TE); Pulse Ox 99% on R/A; Weight 65.77 kg; ss Height 5 ft. 1 in. (154.94 cm); Pain 8/10; 10:38 BP 159 / 97; Pulse 68; Resp 17; Pulse Ox 98% on R/A; aj1 11:33 BP 170 / 102; Pulse 68; Resp 17; Pulse Ox 97% on R/A; tw2 12:52 BP 151 / 108; Pulse 86; Resp 17; Pulse Ox 99% on R/A; tw2 14:02 BP 174 / 112; Pulse 75; Resp 17; Pulse Ox 95% on R/A; tw2 09:41 Body Mass Index 27.40 (65.77 kg, 154.94 cm) ss ED Course: 09:34 Patient arrived in ED. am2 09:34 Karel Ramos MD is Private Physician. am2 09:37 Madeline Will, ZANE is Primary Nurse. tw2 09:38 Arm band placed on. tw2 09:38 Placed in gown. Bed in low position. Call light in reach. team otr truck driver on. Pulse ox tw2 on. NIBP on. 09:41 Triage completed. ss 09:47 Jaret Swift MD is Attending Physician. jaret 10:12 Missed attempt(s): 22 gauge in right forearm. per Tech. Cooper Missed attempt(s): 22 tw2 gauge in left forearm. Bleeding controlled, band aid applied, catheter tip intact. 10:20 X-ray completed. Portable x-ray completed in exam room. Patient tolerated procedure jb2 well. 10:22 XRAY Chest (1 view) In Process Unspecified. EDMS 10:34 Inserted saline lock: 22 gauge in right forearm, using aseptic technique. Blood ss collected. 10:47 EKG done, by library information technician. reviewed by Jaret Swift MD. at1 12:38 CT Abd/Pelvis - PO and IV Contrast In Process Unspecified. EDMS 14:22 Karel Ramos MD is Referral Physician. jaret 14:23 Kapil Steinberg MD is Referral Physician. jaret 14:24 oYung Victoria MD is Referral Physician. jaret 14:24 Urine Culture Sent. tw2 14:43 No provider procedures requiring assistance completed. IV discontinued, intact, tw2 bleeding controlled, No redness/swelling at site. Pressure dressing applied. Administered Medications: 10:30 Drug: Lactulose 30 grams Volume: 45 ml; Route: PO; 11:28 Follow up: Response: No adverse reaction; Marked relief of symptoms; Marked relief of tw2 symptoms, pt had large BM at this time, pt still complaining of abdomen pain 10:35 Drug: NS 0.9% 500 ml Volume: 500 ml; Route: IV; Rate: 1 bolus; Site: right antecubital; 11: Follow up: Response: No adverse reaction; IV Status: Completed infusion; IV Intake: tw2 500ml 10:35 Drug: Dulcolax Suppository 10 mg Route: OR; 04 25: Follow up: Response: No adverse reaction tw2 11:28 Drug: NS 0.9% 1000 ml Route: IV; Rate: 125 ml/hr; Site: right antecubital; tw2 14:42 Follow up: IV Status: Order to discontinue infusion tw2 13:05 Drug: morphine 2 mg Route: IVP; Site: right antecubital; 14:20 Follow up: Response: No adverse reaction; Pain is decreased; RASS: Alert and Calm (0) tw2 13:40 Drug: Zofran 4 mg Route: IVP; Site: right antecubital; 14:01 Follow up: Response: No adverse reaction tw2 14:27 Drug: Norvasc 10 mg Route: PO; tw2 14:41 Follow up: Response: No adverse reaction tw2 Intake: 11:27 IV: 500ml; Total: 500ml. tw2 Outcome: 14:23 Discharge ordered by . [facility] 14:43 Discharged to home via wheelchair, with family. tw2 14:43 Condition: stable 14:43 Discharge instructions given to patient, family, Instructed on discharge instructions, follow up and referral plans. medication usage, Demonstrated understanding of instructions, follow-up care, medications, Prescriptions given X 5 14:43 Patient left the ED. tw2 Signatures: Dispatcher [employer] EDMS Catalina Quintana RN RN ch Johnson, Angela, RN RN aj1 Jaret Swift MD MD cha Buechter, Jesse jb2 Shagufta Lockhart RN RN ss Tiesha Griffin, accountant helper EKG Tat1 Madeline Will RN RN tw2 Tiesha Mahmood am2
[2019-01-21] MEDS ORDERED: AMLODIPINE 5 MG TAB ONE (14:26)
[2019-01-21 15:05] VITALS: TEMP 97.1
[2019-01-21 15:12] VITALS: BP 174/112; O2SAT 95
[2019-01-21 15:21] LABS: Urine Blood TRACE (NEG); Urine Glucose NEGATIVE (NEG); Urine Protein NEGATIVE (NEG)
== END 2019-01-21 14:43 | disposition home or self-care (01) ==
LOC: ER 09:32
DX: K59.00 Constipation, unspecified (principal); N13.1 Hydronephrosis with ureteral stricture, not elsewhere classified; I10 Essential (primary) hypertension; E03.9 Hypothyroidism, unspecified; I50.9 Heart failure, unspecified; Z79.82 Long term (current) use of aspirin
CPT/HCPCS: 93005; 87088; 85025; 87086; 80048; 36415; 83735; 85610; 80076; 81003; 84484; 83690; 83880; 74177; 71045; Q9967; J2270; J7030; J2405; 96361; 96374; 96375; 99285

== ENCOUNTER 2019-02-17 08:29 | Day surgery (SDC) | payer OTHER ==
[2019-02-16 11:58] LABS: Urine Appearance CLEAR; Urine Bilirubin NEGATIVE (NEG); Urine Blood NEGATIVE (NEG); Urine Color YELLOW; Urine Glucose NEGATIVE (NEG); Urine Protein NEGATIVE (NEG); Urine Urobilinogen 0.2 mg/dL (0.2-1.0)
[2019-02-16 11:59] LABS: Absolute Lymphocytes (CBC) 0.9 K/uL (0.7-4.9); Basophils % 0.7 % (0-1.3); Hematocrit 33.6 % (36.0-45.0); Lymphocytes % 17.7 % (15.3-44.8); MPV 7.3 fL (7.6-11.3); RBC Red Blood Cell Count 3.43 M/uL (3.86-4.86)
[2019-02-16 12:09] LABS: Urine Microscopic Reflex NO UMIC
[2019-02-16 12:14] LABS: Protime INR 1.01
[2019-02-16 12:18] LABS: Potassium 3.5 mmol/L (3.5-5.1)
[2019-02-16 12:25] LABS: Phosphorus 2.9 mg/dL (2.5-4.9); Uric Acid 4.2 mg/dL (2.6-6.0)
--- NOTE | 2019-02-16 12:32 | RAD REPORT ---
EXAM DESCRIPTION: RAD - Chest Pa And Lat (2 Views) - 02/16/2019 12:19 pm CLINICAL HISTORY: preop, pending kidney stone removal COMPARISON: January 21, 2019 TECHNIQUE: PA and lateral views of the chest were obtained. FINDINGS: The lungs are clear. Interstitial pattern matches comparison. Heart size is normal and ce ntral vasculature is within normal limits. No pleural effusion or pneumothorax seen. No acute bony finding noted. No aortic abnormality. IMPRESSION: No acute cardiopulmonary process.
--- NOTE | 2019-02-16 14:32 | EKG ---
Test Date: 2019-02-16 Test Time: 12:19:26 Renewable Energy Trader: ERICA MEASUREMENT RESULTS: Intervals: Rate: 57 VT: 166 QRSD: 72 QT: 406 QTc: 395 [place]: P: 57 VT: 166 QRS: 56 T: 75 INTERPRETIVE STATEMENTS: Sinus bradycardia Otherwise normal ECG Compared to ECG 01/21/2019 10:15:36 Sinus rhythm no longer present Electronically Signed On 02-16-19 14:31:30 INVESTMENT ASSOCIATE by Mani Sams
[2019-02-17] MEDS ORDERED: Ringers Lactate 1,000 ML IV ONE (08:53)
[2019-02-17] MEDS ORDERED: GENTAMICIN 80 MG/100 ML BAG 80 MG/100 ML BAG IV ONE (08:54)
[2019-02-17] MEDS ORDERED: PROPOFOL 200 MG/20 ML VIAL IV ONE (09:33)
[2019-02-17] MEDS ORDERED: FENTANYL CITR 100 MCG/2 ML ONE (09:33)
[2019-02-17] MEDS ORDERED: ONDANSETRON 4 MG/2 ML VIAL ONE (09:35)
[2019-02-17] MEDS ORDERED: LIDOCAINE 2% MPF 5 ML VIAL ONE (09:39)
[2019-02-17] MEDS ORDERED: EPHEDRINE SULF 50 MG/ML VIAL ONE (10:14)
--- NOTE | 2019-02-17 11:21 | RAD REPORT ---
EXAM DESCRIPTION: RAD - Abdomen 1 View (KUB) - 02/17/2019 9:13 am CLINICAL HISTORY: preop Left-side hydronephrosis without stones seen. COMPARISON: Abdomen Pelvis W Contrast dated 01/21/2019 FINDINGS: Bowel gas pattern is non-specific. No obstruction, free air or pneumatosis. Left-sided no n calcifications seen. Calcification dense injection material in the region of the urethra. No significant bony findings IMPRESSION: No calculi. No acute finding.
--- NOTE | 2019-02-17 12:13 | RAD REPORT ---
EXAM DESCRIPTION: RAD - Urethrocystogrphy Retrograde - 02/17/2019 10:51 am CLINICAL HISTORY: Left ureteral stent placement COMPARISON: None. FINDINGS: Fluoro time was 1 minutes 26 seconds. There were 21 fluoroscopic KUB images obtained. Images show progressive stepwise placement of a left ureteral stent. No suspicious or unexpected find ing.
[2019-02-17 12:59] VITALS: O2SAT 95
[2019-02-17 13:00] VITALS: BP 144/74; TEMP 97.5
--- OUTSIDE RECORDS SUMMARY | 2019-02-22 23:03 | XMS REPORT ---
:1945 Author Organization [facility] Address [address] [place] [address] Care Team Providers Name Role Phone Unavailable Unavailable Unavailable Payers Payer Name Policy Type Policy Number Effective Date Expiration Date Problems This patient has no known problems. Allergies, Adverse Reactions, Alerts Allergy Allergy Status Severity Reaction(s) Onset Inactive Treating Comments Name Type Date Date Clinician No Known DA Active U 2018-09 Allergies -17 00:00:0 0 No Known DA Active U 2008-05 Contrast - Allergies 00:00:0 0 No Known DA Active [...] 0.52-1.04 CALCIUM (test code=CA) 9.0 MG/DL 8.4-10.2 [id number] 05:09:00 Test Item Value Reference Range Comments MAGNESIUM (test code=MAG) 1.8 MG/DL 1.6-2.3 CBC W/AUTO [id number] 04:46:00 Test Item Value Reference Range Comments [...] (test code=NRBC#) 0.00 K/mm3 0.0-0.1 BASIC METABOLIC [id number] 06:03:00 Test Item Value Reference Range Comments [...] 0.52-1.04 CALCIUM (test code=CA) 8.7 MG/DL 8.4-10.2 [id number] 06:03:00 Test Item Value Reference Range Comments MAGNESIUM (test code=MAG) 2.1 MG/DL 1.6-2.3 CBC W/AUTO [id number] 05:32:00 Test Item Value Reference Range Comments [...] (test code=NRBC#) 0.00 K/mm3 0.0-0.1 ARTERIAL BLOOD [id number] 12:23:00 Test Item Value Reference Range Comments [...] reported result: FT/NC Edited by: MOON on 10/01/18:[id number] 1222: DELIVERY previously reported as: FT/NC ABG TEMPERATURE (test 37.0 C >37 code=TEMPA) ABG SITE (test code=SITEA) AL ALLENS TEST (test NA CHECK code=ALLENS) FIO2 (test code=COHBGFFIO2) 40 % ARTERY,[id number] 11:58:00 RUN DATE: 10/01/18 [place] - LAB PAGE 1 RUN TIME: 1158 Specimen Inquiry RUN USER: INTERFACE PATIENT: WILI SABILLON LOC: ENA U #: [id number] AGE/SX: 72/F ROOM: [facility] RE09/30/18[facility] DR: Rohith Cruz MD : [birth year] BED: A DIS: STATUS: ADM IN TLOC: SPEC #: [id number] RECD: 09/30/18 STATUS: DIEGO BYNUM #: [id number] GUS: 09/30/[address] [facility] [address]: Rohith Cruz MD ENTERED: 09/30/18 SP TYPE: ARTERY, PL OTHR DR: Katie Marc MD, Nioti R MD Pepper, Gregory S MDORDERED: DECAL, SURG PATH LVL 3, SURG PATH LVL 4 CODES: [id number] - PLAQUE, NOS [id number] - ARTERY, NOS [id number] - CAROTID ARTERY ATHEROSCLEROSIS [id number] - CERVIX EXCISIONAL BIOP [id number] - LYMPH NODE, NOS COPIES TO: Katie Marc MD [address] [place] [address] [address] [place] [address] [email or web address] [address] [place] [address] [place] [address] [facility] [address] [place] [address] [place] [address] [facility] [address] [place] [address] ICD CODES: 440 - PROCEDURES: DECAL (10/01/18) SURG PATH LVL 3 (09/30/18) SURG PATH LVL 4 (09/30/18) TISSUES: A. ARTERY, NOS - RT ARTERY PLAQUE B. LYMPH NODE, NOS - RT CERVICAL LYMPH NODE CONTINUED ON NEXT PAGE RUN DATE: 10/01/18 [facility] LAB PAGE 2 RUN TIME: 1158 Specimen Inquiry RUN USER:INTERFACE SPEC #: [id number] PATIENT: WILI SABILLON #[id number] (Continued) CLINICAL HISTORY RIGHT INTERNAL CAROTID ARTERYSTENOSIS CPT CODES CPT CODE(S): 15751 , 34789 , 65703 , , , , FINAL DIAGNOSIS A. [...] 1158 END OF REPORT - XR CHEST [id number] 07:45:00 Patient Name: WILI SABILLON Unit No: [id number] EXAMS: CPT CODE: [id number] XR CHEST 1V 31136 EXAMINATION: - XR CHEST 1V. LOCATION : [...] [email or web address] Orig Print D/T: S: 10/01/2018 (0748) [facility] NAME: WILI SABILLON [id number] PHYS: [place] [address] : 1945 AGE: 72 SEX: F LOC: Z.SI07 A PHONE #: [phone] EXAM DATE: 10/01/2018 STATUS: ADM IN FAX #: [phone] RADIOLOGY NO: PAGE 1 Signed ReportBASIC METABOLIC [id number] 05:58:00 Test Item Value Reference Range Comments [...] 0.52-1.04 CALCIUM (test code=CA) 8.7 MG/DL 8.4-10.2 [id number] 05:58:00 Test Item Value Reference Range Comments MAGNESIUM (test code=MAG) 1.7 MG/DL 1.6-2.3 CBC W/AUTO [id number] 05:30:00 Test Item Value Reference Range Comments [...] RBC # (test code=NRBC#) 0.00 K/mm3 0.0-0.1 [id number] 22:38:00 Test Item Value Reference Range Comments POTASSIUM (test code=K) 3.3 MMOL/L 3.5-5.1 [id number] 22:38:00 Test Item Value Reference Range Comments MAGNESIUM (test code=MAG) 1.7 MG/DL 1.6-2.3 ARTERIAL BLOOD [id number] 17:57:00 Test Item Value Reference Range Comments [...] FIO2 (test code=COHBGFFIO2) 40 % BASIC METABOLIC [id number] 16:18:00 Test Item Value Reference Range Comments [...] 0.52-1.04 CALCIUM (test code=CA) 8.9 MG/DL 8.4-10.2 [id number] 16:18:00 Test Item Value Reference Range Comments MAGNESIUM (test code=MAG) 1.3 MG/DL 1.6-2.3 CBC W/AUTO [id number] 16:06:00 Test Item Value Reference Range Comments [...] code=NRBC#) 0.00 K/mm3 0.0-0.1 - XR CHEST [id number] 15:29:00 Patient Name: WILI SABILLON Unit No: [id number] EXAMS: CPT CODE: [id number] XR CHEST 1V 14464 EXAM: CHEST ONE VIEW INDICATION: Postop LOCATION: [...] [email or web address] OrigPrint D /T: S: 09/30/2018 (1532) [facility] NAME: WILI SABILLON [id number] PHYS: [place] [address] : 1945 AGE: 72 SEX: F LOC: Z.SI07 A PHONE #: [phone] EXAM DATE: 09/30/2018 STATUS: ADM IN FAX #: [phone] RADIOLOGY NO: PAGE 1 Signed ReportHIV 12 AB [id number] 19 :14:00 Test Item Value Reference Range Comments AB HIV 1 2 (test NON REACTIVE NON-REAC NOTE: A NONREACTIVE RESULT code=ICR39DC) INDICATES THAT HIV-1 AND HIV-2ANTIBODIES HAVE NOT BEEN FOUND IN THIS PATIENT SPECIMEN. ANON-REACTIVE RESULT, HOWEVER, DOES NOT PRECLUDE PREVIOUSEXPOSURE OR INFECTION WITH HIV1. AG HIV1 P24 (test NON REACTIVE NONE REAC code=SZJ9L76) PROTHROMBIN [id number] 14:22:00 Test Item Value Reference Range Comments [...] recurrent systemic embolism. 3.0 - 4.5 PTT [id number] 14:22:00 Test Item Value Reference Range Comments PTT ACTIVATED (test code=APTT) 29.3 SECONDS 22.0-33.0 BASIC METABOLIC [id number] 14:18:00 Test Item Value Reference Range Comments [...] 9.9 MG/DL 8.4-10.2 - XR CHEST 2 [id number] 14:14:00 Patient Name: WILI SABILLON Unit No: [id number] EXAMS: CPT CODE: [id number] XR CHEST 2 V 86797 EXAM: CHEST 2 VIEWS INDICATION: PRE-OP LOCATION [...] 09/29/2018 (1414) [email or web address] Orig Print D/T: S: (3877) [facility] NAME: WILI SABILLON [address] PHYS: [place] [address] : 1945 AGE: 72 SEX: F LOC: [id number] PHONE #: [phone] EXAM DATE: 09/29/2018 STATUS: PRE IN FAX #: [phone] RADIOLOGY NO: PAGE 1 Signed ReportCBC W/AUTO [id number] 13:57:00 Test Item Value Reference Range Comments [...] (test code=NRBC#) 0.00 K/mm3 0.0-0.1 BASIC METABOLIC [id number] 06:04:00 Test Item Value Reference Range Comments [...] HIGH.........130-159 mg/dL HIGH.........160-189 mg/dL VERY HIGH.........>/=190 mg/dL [id number] 06:04:00 Test Item Value Reference Range Comments MAGNESIUM (test code=MAG) 1.9 MG/DL 1.6-2.3 PROTHROMBIN [id number] 06:00:00 Test Item Value Reference Range Comments [...] systemic embolism. 3.0 - 4.5 Comments to Infertility Medical Assistant: WILL BRING TO LABPTT [id number] 06:00:00 Test Item Value Reference Range Comments PTT ACTIVATED (test code=APTT) 29.3 SECONDS 22.0-33.0 Comments to Infertility Medical Assistant: WILL BRING TO LABBASIC METABOLIC [id number] 05:54 :00 Test Item Value Reference Range [...] code=HDL) LIPOPROTEIN LDL (test MG/DL 0-99 code=LDL) [id number] 05:54:00 Test Item Value Reference Range Comments MAGNESIUM (test code=MAG) 1.9 MG/DL 1.6-2.3 CBC W/AUTO [id number] 05:41:00 Test Item Value Reference Range Comments [...]
== END 2019-02-17 12:30 | disposition home or self-care (01) ==
LOC: OR 08:29
PROVIDERS: ATTEND Urology
PROC: 0T778DZ Dilation of Left Ureter with Intraluminal Device, Via Natural or Artificial Opening Endoscopic (ICD-10-PCS; principal; 2019-02-17 10:00)
DX: N13.1 Hydronephrosis with ureteral stricture, not elsewhere classified (principal); I11.0 Hypertensive heart disease with heart failure; I50.9 Heart failure, unspecified; E03.9 Hypothyroidism, unspecified; K21.9 Gastro-esophageal reflux disease without esophagitis; Z79.02 Long term (current) use of antithrombotics/antiplatelets; Z87.891 Personal history of nicotine dependence; Z82.49 Family history of ischemic heart disease and other diseases of the circulatory system
CPT/HCPCS: 93005; 87088; 85025; 87086; 80048; 36415; 84100; 85610; 84550; 85730; 81003; 74018; 71046; 74450; 51610; 52344; 52332; J2704; J3010; J7120; J1580; J2405

== ENCOUNTER 2019-06-17 10:31 | Inpatient (IN) | payer OTHER ==
--- OUTSIDE RECORDS SUMMARY | 2019-06-17 10:35 | XMS REPORT ---
:1945 [facility] Address [address] [place] [address] Care Team Providers Name Role Phone Unavailable Unavailable Unavailable Payers Payer Name Policy Type Policy Number Effective Date Expiration Date Problems This patient has no known problems. Allergies, Adverse Reactions, Alerts Allergy Allergy Status Severity Reaction(s) Onset Inactive Treating Comments Name Type Date Date Clinician No Known DA Active U 2019-04 Allergies -20 00:00:0 0 No Known DA Active U 2018-09 Allergies [...] Comments Text Results Atomic Results Result Comments ARTERY,PLAQUE 2019-05-07 RUN 10:05:00 DATE: 05/07/19 [place] - LAB PAGE 1 RUN TIME: 1005 Specimen Inquiry RUN USER: INTERFACE REY ENT: WILI SABILLON LOC: ENA U #: [id number] AGE/SX: 73/F ROOM: DUNG RE05/05/19REG DR: Rohith Cruz MD : 47 BED: A DIS: STATUS: ADM IN TLOC: SPEC #: [id number] RECD: 05/05/19 STATUS: DIEGO RESienna #: [id number] GUS: 05/05/19 [facility] DR: Rohith Cruz MD ENTERED: 05/05/19 SP TYPE: ARTERY, PL OTHR DR: Katie Marc MD, Nioti R MD Pepper, Gregory S MDORDERED: DECAL, SURG PATH LVL 3, SURG PATH LVL 4 CODES: [id number] - PLAQUE, NOS [id number] - ARTERY, NOS [id number] - CAROTID ARTERY ATHEROSCLEROSIS [id number] [id number] - CERVIX EXCISIONAL BIOP [id number] - LYMPH NODE, NOS COPIES TO: Katie Marc MD [address] [place] [address] [address] [place] [address] [email or web address] [address] [place] [address] [place] [address] [facility] [address] [place], [place] [id number] [place] [address] [facility] [address] [place], [place] [address] ICD CODES: 440 - PROCEDURES: DECAL (05/06/19- 904) SURG PATH LVL 3 (05/05/19-1613) SURG PATH LVL 4 (05/06/19-132) TISSUES : A. ARTERY, NOS - LT CAROTID PLAQUE B. LYMPH NODE, NOS - LT CERVICAL LYMPH NODE CONTINUED ON NEXT PAGE RUN DATE: 05/07/19 [facility] RUN TIME: 1005 Specimen Inquiry RUN USER: INTERFACE SPEC #: [id number] PATIENT: WILI SABILLON # [id number] (Continued) ------- CLINICAL HISTORY LEFT INTERNAL CAROTID ARTERY STENOSIS CPT CODES CPT CODE(S): 95588 , 78569 , 14499 , , , , FINAL DIAGNOSIS A. Plaque, left carotid artery, endarterectomy: ATHEROSCLEROSIS, CALCIFIC AND OCCLUSIVE B. Lymph node, left cervical, excisional biopsy: MILD, NON-SPECIFIC, REACTIVE CHANGE GROSS DESCRIPTION A. Left carotid plaque. The specimen consists of a segment of yellow-wyman plaque measuring 1.8 x 1 x 0.8 cm. Sectioning reveals a calcified cut surface. Sections submitted for decal as A1. B. Left cervical lymph node. The specimen consists of a single node measuring 2 x 1 x 1 cm. Serially sectioned and submitted as B1. /tc/cm MICROSCOPIC DESCRIPTION A. Left carotid plaque. Ovoid sclerotic nodule with dense calcification. No atypical features. Note: Additional recuts and levels performed. B. Left cervical lymph node. Benign lymph node sections with variable mild perisinusoidal and paracortical reactive changes. No atypical features. /cm Signed David Maier 1005 END OF REPORT BASIC METABOLIC PANEL 2019-05-07 04:51:00 Test Item Value Reference Range Comments SODIUM (test code=NA) 135 MMOL/L 137-145 POTASSIUM (test code=K) 3.6 MMOL/L 3.5-5.1 CHLORIDE (test code=CL) 93 MMOL/L 98-107 CARBON DIOXIDE (test code=CO2) 33 MMOL/L 22-30 GLUCOSE (test code=GLU) 93 MG/DL 74-106 BLOOD UREA NITROGEN (test 11 MG/DL 7-17 code=BUN) GLOMERULAR FILTRATION RATE (test > 60 Reporting units: ml/min/1.73 m2 code=GFR) (Modified MDRD Formula)Reference Range: > or=60 ml/min/1.73 m2 CREATININE (test code=CREAT) 0.60 MG/DL 0.52-1.04 CALCIUM (test code=CA) 9.6 MG/DL 8.4-10.2 BASIC METABOLIC [id number] 04:40:00 Test Item Value Reference Range Comments SODIUM (test code=NA) 135 MMOL/L 137-145 POTASSIUM (test code=K) 3.6 MMOL/L 3.5-5.1 CHLORIDE (test code=CL) 93 MMOL/L 98-107 CARBON DIOXIDE (test code=CO2) 33 MMOL/L 22-30 GLUCOSE (test code=GLU) MG/DL 74-106 BLOOD UREA NITROGEN (test MG/DL 10-29 code=BUN) GLOMERULAR FILTRATION RATE > 60 Reporting units: ml/min/1.73 (test code=GFR) m2 (Modified MDRD Formula)Reference Range: > or=60 ml/min/1.73 m2 CREATININE (test code=CREAT) 0.60 MG/DL 0.52-1.04 CALCIUM (test code=CA) MG/DL 8.7-9.7 BASIC METABOLIC [id number] 04:38:00 Test Item Value Reference Range Comments SODIUM (test code=NA) 135 MMOL/L 137-145 POTASSIUM (test code=K) 3.6 MMOL/L 3.5-5.1 CHLORIDE (test code=CL) 93 MMOL/L 98-107 CARBON DIOXIDE (test code=CO2) MMOL/L 22-30 GLUCOSE (test code=GLU) MG/DL 74-106 BLOOD UREA NITROGEN (test code=BUN) MG/DL 7-17 GLOMERULAR FILTRATION RATE (test code=GFR) CREATININE (test code=CREAT) MG/DL 0.52-1.04 CALCIUM (test code=CA) MG/DL 8.7-9.7 BASIC METABOLIC [id number] 04:37:00 Test Item Value Reference Range Comments SODIUM (test code=NA) 135 MMOL/L 137-145 POTASSIUM (test code=K) MMOL/L 3.5-5.1 CHLORIDE (test code=CL) 93 MMOL/L 98-107 CARBON DIOXIDE (test code=CO2) MMOL/L 22-30 GLUCOSE (test code=GLU) MG/DL 74-106 BLOOD UREA NITROGEN (test code=BUN) MG/DL 7-17 GLOMERULAR FILTRATION RATE (test code=GFR) CREATININE (test code=CREAT) MG/DL 0.52-1.04 CALCIUM (test code=CA) MG/DL 8.7-9.7 CBC W/AUTO [id number] 04:18:00 Test Item Value Reference Range Comments WHITE BLOOD CELL (test code=WBC) 11.8 K/MM3 3.8-9.8 RED BLOOD CELL (test code=RBC) 3.36 M/MM3 3.58-4.97 HEMOGLOBIN (test code=HGB) 11.0 G/DL 11.2-14.9 HEMATOCRIT (test code=HCT) 32.2 % 33.2-43.5 MEAN CELL VOLUME (test code=MCV) 96 fL 80.7-99.1 MEAN CELL HGB (test code=MCH) 32.7 pg 27.0-34.1 MEAN CELL HGB CONCETRATION (test code=MCHC) 34.2 % 32.2-35.7 RED CELL DISTRIBUTION WIDTH (test code=RDW) 15.6 % 12.1-15.2 PLATELET COUNT (test code=PLT) 276 K/MM3 129-368 MEAN PLATELET VOLUME (test code=MPV) 9.3 fl 7.4-10.4 NEUTROPHIL % (test code=NT%) 73.7 % 43-75 IMMATURE GRANULOCYTE % (test code=IG%) 0.4 % 0.0-2.0 LYMPHOCYTE % (test code=LY%) 13.3 % 14-44 MONOCYTE % (test code=MO%) 12.3 % 4-13 EOSINOPHIL % (test code=EO%) 0.2 % 0-6 BASOPHIL % (test code=BA%) 0.1 % 0-2 NUCLEATED RBC % (test code=NRBC%) 0.0 % 0-1.0 NEUTROPHIL # (test code=NT#) 8.72 K/mm3 2.0-7.6 IMMATURE GRANULOCYTE # (test code=IG#) 0.05 x10 3/uL 0-0.03 LYMPHOCYTE # (test code=LY#) 1.57 K/mm3 1.0-3.8 MONOCYTE # (test code=MO#) 1.45 K/mm3 0.1-0.8 EOSINOPHIL # (test code=EO#) 0.02 K/mm3 0.0-0.2 BASOPHIL # (test code=BA#) 0.01 K/mm3 0.0-0.2 NUCLEATED RBC # (test code=NRBC#) 0.00 K/mm3 0.0-0.1 - XR CHEST [id number] 09:05:00 Patient Name: WILI SABILLON Unit No: [id number] EXAMS: CPT CODE: [id number] XR CHEST 1V 89281 Site ID: [id number] HISTORY: Postoperative, left ICA stenosis COMPARISON: Chest x-ray of the prior day FINDINGS: Mild right middle lobe infiltrate/atelectasis is nearly resolved, otherwise the lungs are clear. Right subclavian line remains appropriately positioned, BLAKE drain in place within the neck. The heart and pulmonary vasculature is normal. Osseous structures are unremarkable. IMPRESSION: Mild right middle lobe infiltrate/atelectasis is nearly resolved, otherwise the lungs are clear at 0905 * * Reported and signed by: Corbin Holliday MD CC: Katie Marc MD Technologist: Lety Vazquez RT(R) Transcrpt Date/Tm/Trnsp: 05/06/2019 (09) [email or web address] Orig Print D/T: S: 05/06/2019 (0908) [facility] NAME: WILI SABILLON [id number] [address] PHYS: [place] [address] : 1945 AGE: 73 SEX: F LOC: Z.SI04 A PHONE #: [phone] EXAM DATE: 05/06/2019 STATUS: ADM IN FAX #: [phone] RADIOLOGY NO: PAGE 1 Signed ReportBASIC METABOLIC [id number] 06:09:00 Test Item Value Reference Range Comments SODIUM (test code=NA) 133 MMOL/L 137-145 POTASSIUM (test code=K) 3.5 MMOL/L 3.5-5.1 CHLORIDE (test code=CL) 95 MMOL/L 98-107 CARBON DIOXIDE (test code=CO2) 26 MMOL/L 22-30 ANION GAP (test code=GAP) 16 MMOL/L 14-24 GLUCOSE (test code=GLU) 139 MG/DL 74-106 BLOOD UREA NITROGEN (test 9 MG/DL 7-17 code=BUN) GLOMERULAR FILTRATION RATE > 60 Reporting units: ml/min/1.73 (test code=GFR) m2 (Modified MDRD Formula)Reference Range: > or=60 ml/min/1.73 m2 CREATININE (test code=CREAT) 0.60 MG/DL 0.52-1.04 CALCIUM (test code=CA) 9.4 MG/DL 8.4-10.2 [id number] 06:09:00 Test Item Value Reference Range Comments MAGNESIUM (test code=MAG) 1.5 MG/DL 1.6-2.3 BASIC METABOLIC [id number] 05:59:00 Test Item Value Reference Range Comments SODIUM (test code=NA) 133 MMOL/L 137-145 POTASSIUM (test code=K) 3.5 MMOL/L 3.5-5.1 CHLORIDE (test code=CL) 95 MMOL/L 98-107 CARBON DIOXIDE (test code=CO2) MMOL/L 22-30 GLUCOSE (test code=GLU) MG/DL 74-106 BLOOD UREA NITROGEN (test code=BUN) MG/DL 7-17 GLOMERULAR FILTRATION RATE (test code=GFR) CREATININE (test code=CREAT) MG/DL 0.52-1.04 CALCIUM (test code=CA) MG/DL 8.7-9.7 [id number] 05:59:00 Test Item Value Reference Range Comments MAGNESIUM (test code=MAG) MG/DL 1.6-2.3 CBC W/AUTO [id number] 05:46:00 Test Item Value Reference Range Comments WHITE BLOOD CELL (test code=WBC) 13.4 K/MM3 3.8-9.8 RED BLOOD CELL (test code=RBC) 3.32 M/MM3 3.58-4.97 HEMOGLOBIN (test code=HGB) 10.7 G/DL 11.2-14.9 HEMATOCRIT (test code=HCT) 32.3 % 33.2-43.5 MEAN CELL VOLUME (test code=MCV) 97 fL 80.7-99.1 MEAN CELL HGB (test code=MCH) 32.2 pg 27.0-34.1 MEAN CELL HGB CONCETRATION (test code=MCHC) 33.1 % 32.2-35.7 RED CELL DISTRIBUTION WIDTH (test code=RDW) 14.8 % 12.1-15.2 PLATELET COUNT (test code=PLT) 269 K/MM3 129-368 MEAN PLATELET VOLUME (test code=MPV) 9.0 fl 7.4-10.4 NEUTROPHIL % (test code=NT%) 85.5 % 43-75 IMMATURE GRANULOCYTE % (test code=IG%) 0.4 % 0.0-2.0 LYMPHOCYTE % (test code=LY%) 6.6 % 14-44 MONOCYTE % (test code=MO%) 7.4 % 4-13 EOSINOPHIL % (test code=EO%) 0.0 % 0-6 BASOPHIL % (test code=BA%) 0.1 % 0-2 NUCLEATED RBC % (test code=NRBC%) 0.0 % 0-1.0 NEUTROPHIL # (test code=NT#) 11.48 K/mm3 2.0-7.6 IMMATURE GRANULOCYTE # (test code=IG#) 0.05 x10 3/uL 0-0.03 LYMPHOCYTE # (test code=LY#) 0.89 K/mm3 1.0-3.8 MONOCYTE # (test code=MO#) 0.99 K/mm3 0.1-0.8 EOSINOPHIL # (test code=EO#) 0.00 K/mm3 0.0-0.2 BASOPHIL # (test code=BA#) 0.01 K/mm3 0.0-0.2 NUCLEATED RBC # (test code=NRBC#) 0.00 K/mm3 0.0-0.1 BASIC METABOLIC [id number] 13:49:00 Test Item Value Reference Range Comments SODIUM (test code=NA) 136 MMOL/L 137-145 POTASSIUM (test code=K) 2.9 MMOL/L 3.5-5.[address] [facility]& READBACK ON 05/05/19 AT 1348 BY Andrey De Guzman CHLORIDE (test code=CL) 98 MMOL/L 98-107 CARBON DIOXIDE (test code=CO2) 30 MMOL/L 22-30 ANION GAP (test code=GAP) 11 MMOL/L 14-24 GLUCOSE (test code=GLU) 120 MG/DL 74-106 BLOOD UREA NITROGEN (test 13 MG/DL 7-17 code=BUN) GLOMERULAR FILTRATION RATE > 60 Reporting units: ml/min/1.73 (test code=GFR) m2 (Modified MDRD Formula)Reference Range: > or=60 ml/min/1.73 m2 CREATININE (test code=CREAT) 0.60 MG/DL 0.52-1.04 CALCIUM (test code=CA) 9.7 MG/DL 8.4-10.2 [id number] 13:49:00 Test Item Value Reference Range Comments MAGNESIUM (test code=MAG) 1.4 MG/DL 1.6-2.3 BASIC METABOLIC [id number] 13:48:00 Test Item Value Reference Range Comments SODIUM (test code=NA) 136 MMOL/L 137-145 POTASSIUM (test code=K) 2.9 MMOL/L 3.5-5.1 CALLED TO [employer].V& READBACK ON 05/05/19 AT 1348 BY Andrey De Guzman CHLORIDE (test code=CL) 98 MMOL/L 98-107 CARBON DIOXIDE (test code=CO2) 30 MMOL/L 22-30 ANION GAP (test code=GAP) 11 MMOL/L 14-24 GLUCOSE (test code=GLU) 120 MG/DL 74-106 BLOOD UREA NITROGEN (test 13 MG/DL 7-17 code=BUN) GLOMERULAR FILTRATION RATE > 60 Reporting units: ml/min/1.73 (test code=GFR) m2 (Modified MDRD Formula)Reference Range: > or=60 ml/min/1.73 m2 CREATININE (test code=CREAT) 0.60 MG/DL 0.52-1.04 CALCIUM (test code=CA) 9.7 MG/DL 8.4-10.2 [id number] 13:48:00 Test Item Value Reference Range Comments MAGNESIUM (test code=MAG) MG/DL 1.6-2.3 - XR CHEST [id number] 13:35:00 Patient Name: WILI SABILLON Unit No: [id number] EXAMS: CPT CODE: [id number] XR CHEST 1V 04901 Location of dictation: B2 Portable chest one view. HISTORY: post op COMMENT: Compared to 05/04/2019. Patient has undergone left carotid endarterectomy with drain in place. A right subclavian central line overlies the SVC. The heart is slightly enlarged but stable. There are abnormal opacities in the right lower lobe likely atelectasis. No pneumothorax or effusion is seen. The chest wall is intact. IMPRESSION: 1. Status post left carotid endarterectomy. 2. Right lower lobeatelectasis. at 1335 Reported and signed by: Larissa Balderas M.D. CC: Katie Marc MD Technologist: [facility] STUDENT ; Alhaji Cha, RT(R) Transcrpt Date/Tm/Trnsp: 05/05/2019 (9635) [id number] Orig Print D/T: S: 05/05/2019 (5500) [facility] NAME: WILI SABILLON [id number] [address] PHYS: [place] [address] : AGE: 73 SEX: F LOC: Z.SI04 A PHONE #: [phone] EXAM DATE: STATUS: ADM IN FAX #: [phone] RADIOLOGY NO: PAGE 1 Signed ReportCBC W/AUTO [id number] 13: 20:00 Test Item Value Reference Range Comments WHITE BLOOD CELL (test code=WBC) 7.7 K/MM3 3.8-9.8 RED BLOOD CELL (test code=RBC) 3.33 M/MM3 3.58-4.97 HEMOGLOBIN (test code=HGB) 10.7 G/DL 11.2-14.9 HEMATOCRIT (test code=HCT) 31.7 % 33.2-43.5 MEAN CELL VOLUME (test code=MCV) 95 fL 80.7-99.1 MEAN CELL HGB (test code=MCH) 32.1 pg 27.0-34.1 MEAN CELL HGB CONCETRATION (test code=MCHC) 33.8 % 32.2-35.7 RED CELL DISTRIBUTION WIDTH (test code=RDW) 15.2 % 12.1-15.2 PLATELET COUNT (test code=PLT) 231 K/MM3 129-368 MEAN PLATELET VOLUME (test code=MPV) 9.0 fl 7.4-10.4 NEUTROPHIL % (test code=NT%) 77.4 % 43-75 IMMATURE GRANULOCYTE % (test code=IG%) 0.7 % 0.0-2.0 LYMPHOCYTE % (test code=LY%) 13.2 % 14-44 MONOCYTE % (test code=MO%) 5.7 % 4-13 EOSINOPHIL % (test code=EO%) 2.7 % 0-6 BASOPHIL % (test code=BA%) 0.3 % 0-2 NUCLEATED RBC % (test code=NRBC%) 0.0 % 0-1.0 NEUTROPHIL # (test code=NT#) 5.95 K/mm3 2.0-7.6 IMMATURE GRANULOCYTE # (test code=IG#) 0.05 x10 3/uL 0-0.03 LYMPHOCYTE # (test code=LY#) 1.01 K/mm3 1.0-3.8 MONOCYTE # (test code=MO#) 0.44 K/mm3 0.1-0.8 EOSINOPHIL # (test code=EO#) 0.21 K/mm3 0.0-0.2 BASOPHIL # (test code=BA#) 0.02 K/mm3 0.0-0.2 NUCLEATED RBC # (test code=NRBC#) 0.00 K/mm3 0.0-0.1 ARTERIAL BLOOD [id number] 13:17:00 Test Item Value Reference Range Comments ARTERIAL BLOOD GAS PH (test 7.36 mmHg 7.35-7.45 code=PHA) ARTERIAL BLOOD GAS PCO2 (test 51.2 mmHg 35.0-45.0 code=PCO2A) ARTERIAL BLOOD GAS PO2 (test 107.8 mmol/L 80.0-100.0 code=PO2A) BICARBONATE TOTAL HCO3 (test 28.0 mmol/L 20.0-26.0 code=HCO3) BASE EXCESS (test code=RUKHSANA) 1.5 mmol/L -3.0-3.0 ABG O2 SATURATION (test 97.7 % 95.0-100.0 All critical values report code=SATA) to and readback by ZANE TENORIO by ASHKAN at 05/05/2019 1:16:23 PM ABG DELIVERY (test code=DENISE) FACETENT ABG TEMPERATURE (test 37.0 C >37 code=TEMPA) ABG SITE (test code=SITEA) AL ALLENS TEST (test code=ALLENS) NA CHECK FIO2 (test code=COHBGFFIO2) 60 % PROTHROMBIN [id number] 13:06:00 Test Item Value Reference Range Comments PROTHROMBIN TIME PATIENT (test 10.5 SECONDS 9.6-11.6 code=PTP) INTERNATIONAL NORMAL RATIO 1.0 [...] recurrent systemic embolism. 3.0 - 4.5 PTT [id number] 13:06:00 Test Item Value Reference Range Comments PTT ACTIVATED (test code=APTT) 30.4 SECONDS 22.0-33.0 HIV 12 AB [id number] 13:02:00 Test Item Value Reference Range Comments HIV 1 2 COMBO AG/AB SCREEN (test AB/AG NON REACTIVE NONREACTIVE code=MSI91VDEWT) CBC W/AUTO [id number] 12:51:00 Test Item Value Reference Range Comments WHITE BLOOD CELL (test code=WBC) 6.0 K/MM3 3.8-9.8 RED BLOOD CELL (test code=RBC) 3.61 M/MM3 3.58-4.97 HEMOGLOBIN (test code=HGB) 11.5 G/DL 11.2-14.9 HEMATOCRIT (test code=HCT) 35.9 % 33.2-43.5 MEAN CELL VOLUME (test code=MCV) 99 fL 80.7-99.1 MEAN CELL HGB (test code=MCH) 31.9 pg 27.0-34.1 MEAN CELL HGB CONCETRATION (test code=MCHC) 32.0 % 32.2-35.7 RED CELL DISTRIBUTION WIDTH (test code=RDW) 15.1 % 12.1-15.2 PLATELET COUNT (test code=PLT) 292 K/MM3 129-368 MEAN PLATELET VOLUME (test code=MPV) 9.1 fl 7.4-10.4 NEUTROPHIL % (test code=NT%) 62.8 % 43-75 IMMATURE GRANULOCYTE % (test code=IG%) 0.2 % 0.0-2.0 LYMPHOCYTE % (test code=LY%) 22.1 % 14-44 MONOCYTE % (test code=MO%) 11.6 % 4-13 EOSINOPHIL % (test code=EO%) 2.8 % 0-6 BASOPHIL % (test code=BA%) 0.5 % 0-2 NUCLEATED RBC % (test code=NRBC%) 0.0 % 0-1.0 NEUTROPHIL # (test code=NT#) 3.75 K/mm3 2.0-7.6 IMMATURE GRANULOCYTE # (test code=IG#) 0.01 x10 3/uL 0-0.03 LYMPHOCYTE # (test code=LY#) 1.32 K/mm3 1.0-3.8 MONOCYTE # (test code=MO#) 0.69 K/mm3 0.1-0.8 EOSINOPHIL # (test code=EO#) 0.17 K/mm3 0.0-0.2 BASOPHIL # (test code=BA#) 0.03 K/mm3 0.0-0.2 NUCLEATED RBC # (test code=NRBC#) 0.00 K/mm3 0.0-0.1 BASIC METABOLIC [id number] 12:21:00 Test Item Value Reference Range Comments SODIUM (test code=NA) 133 MMOL/L 137-145 POTASSIUM (test code=K) 3.5 MMOL/L 3.5-5.1 CHLORIDE (test code=CL) 90 MMOL/L 98-107 CARBON DIOXIDE (test code=CO2) 34 MMOL/L 22-30 GLUCOSE (test code=GLU) 93 MG/DL 74-106 BLOOD UREA NITROGEN (test 13 MG/DL 7-17 code=BUN) GLOMERULAR FILTRATION RATE > 60 Reporting units: ml/min/1.73 (test code=GFR) m2 (Modified MDRD Formula)Reference Range: > or=60 ml/min/1.73 m2 CREATININE (test code=CREAT) 0.60 MG/DL 0.52-1.04 CALCIUM (test code=CA) 9.9 MG/DL 8.4-10.2 BASIC METABOLIC [id number] 12:20:00 Test Item Value Reference Range Comments SODIUM (test code=NA) 133 MMOL/L 137-145 POTASSIUM (test code=K) 3.5 MMOL/L 3.5-5.1 CHLORIDE (test code=CL) 90 MMOL/L 98-107 CARBON DIOXIDE (test code=CO2) MMOL/L 22-30 GLUCOSE (test code=GLU) MG/DL 74-106 BLOOD UREA NITROGEN (test MG/DL 17 code=BUN) GLOMERULAR FILTRATION RATE > 60 Reporting units: ml/min/1.73 (test code=GFR) m2 (Modified MDRD Formula)Reference Range: > or=60 ml/min/1.73 m2 CREATININE (test code=CREAT) 0.60 MG/DL 0.52-1.04 CALCIUM (test code=CA) MG/DL 8.7-9.7 BASIC METABOLIC [id number] 12:18:00 Test Item Value Reference Range Comments SODIUM (test code=NA) 133 MMOL/L 137-145 POTASSIUM (test code=K) 3.5 MMOL/L 3.5-5.1 CHLORIDE (test code=CL) 90 MMOL/L 98-107 CARBON DIOXIDE (test code=CO2) MMOL/L 22-30 GLUCOSE (test code=GLU) MG/DL 74-106 BLOOD UREA NITROGEN (test code=BUN) MG/DL 7-17 GLOMERULAR FILTRATION RATE (test code=GFR) CREATININE (test code=CREAT) MG/DL 0.52-1.04 CALCIUM (test code=CA) MG/DL 8.7-9.7 BASIC METABOLIC [id number] 12:17:00 Test Item Value Reference Range Comments SODIUM (test code=NA) MMOL/L 137-145 POTASSIUM (test code=K) MMOL/L 3.5-5.1 CHLORIDE (test code=CL) 90 MMOL/L 98-107 CARBON DIOXIDE (test code=CO2) MMOL/L 22-30 GLUCOSE (test code=GLU) MG/DL 74-106 BLOOD UREA NITROGEN (test code=BUN) MG/DL 7-17 GLOMERULAR FILTRATION RATE (test code=GFR) CREATININE (test code=CREAT) MG/DL 0.52-1.04 CALCIUM (test code=CA) MG/DL 8.7-9.7 - XR CHEST 2 [id number] 11:39:00 Patient Name: WILI SABILLON Unit No: [id number] EXAMS: CPT CODE: [id number] XR CHEST 2 V 40927 LOCATION: T18 EXAM: CHEST 2 VIEWS INDICATION: PRE-OP COMPARISON: Chest x-ray October 01, 2018 TECHNIQUE: PA and lateral chest radiographs. FINDINGS: Lungs are clear bilaterally without effusion. Heart and mediastinum are normal in size and contour. Bones and peripheral soft tissues are unremarkable. IMPRESSION: Lungs are clear. No acute abnormality. Electronically Signedby Imani Mueller MD on 05/04/2019 at 1139 Reported and signed by: Imani Mueller MD CC: Katie Marc MD Technologist: Jacqueline Jiménez, RT (R) Transcrpt Date/Tm/Trnsp: 05/04/2019 (1139) [id number] Orig Print D/T: S: 05/04/2019 (1142) [facility] NAME: WILI SABILLON [id number] [place] [address] PHYS: [place] [address] : 1945 AGE: 73 SEX: F LOC: Z.SRG PHONE #: [phone] EXAM DATE: 05/04/2019 STATUS: PRE [facility] FAX #: [phone] RADIOLOGY NO: PAGE 1 Signed ReportBASIC METABOLIC [id number] 05:09:00 Test Item Value Reference Range Comments [...] 0.52-1.04 CALCIUM (test code=CA) 9.0 MG/DL 8.4-10.2 [id number] 05:09:00 Test Item Value Reference Range Comments MAGNESIUM (test code=MAG) 1.8 MG/DL 1.6-2.3 CBC W/AUTO [id number] 04:46:00 Test Item Value Reference Range Comments [...] (test code=NRBC#) 0.00 K/mm3 0.0-0.1 BASIC METABOLIC [id number] 06:03:00 Test Item Value Reference Range Comments [...] 0.52-1.04 CALCIUM (test code=CA) 8.7 MG/DL 8.4-10.2 [id number] 06:03:00 Test Item Value Reference Range Comments MAGNESIUM (test code=MAG) 2.1 MG/DL 1.6-2.3 CBC W/AUTO [id number] 05:32:00 Test Item Value Reference Range Comments [...] (test code=NRBC#) 0.00 K/mm3 0.0-0.1 ARTERIAL BLOOD [id number] 12:23:00 Test Item Value Reference Range Comments [...] reported result: FT/NC Edited by: MOON on 10/01/18:[id number] 1222: DELIVERY previously reported as: FT/NC ABG TEMPERATURE (test 37.0 C >37 code=TEMPA) ABG SITE (test code=SITEA) AL ALLENS TEST (test NA CHECK code=ALLENS) FIO2 (test code=COHBGFFIO2) 40 % ARTERY,[id number] 11:58:00 RUN DATE: 10/01/18 [facility] - LAB PAGE 1 RUN TIME: 1158 Specimen Inquiry RUN USER: INTERFACE PATIENT: WILI SABILLON DIANA LOC: NicoleSHERRYOtilio U #: [id number] AGE/SX: 72/F ROOM: [facility] RE09/30/18[facility] DR: Rohith Crzu MD : 47 BED: A DIS: STATUS: ADM IN TLOC: SPEC #: [id number] RECD: 09/30/18 STATUS: DIEGO BYNUM #: [id number] GUS: 09/30/18 [facility] DR: Rohith Cruz MD ENTERED: 09/30/18 SP TYPE: ARTERY, PL OTHR DR: Katie Marc MD, Nioti R MD Pepper, Gregory S MDORDERED: DECAL, SURG PATH LVL 3, SURG PATH LVL 4 CODES: [id number] - PLAQUE, NOS [id number] - ARTERY, NOS [id number] - CAROTID ARTERY ATHEROSCLEROSIS [id number] - CERVIX EXCISIONAL BIOP [id number] - LYMPH NODE, NOS COPIES TO: Katie Marc MD [address] [place] [address] [address] [place] [address] [email or web address] [address] [place] [address] [place] [address] [facility] [address] [place] [address] [place] [address] [facility] [address] [place] [address] ICD CODES: 440 - PROCEDURES: DECAL (10/01/18) SURG PATH LVL 3 (09/30/18) SURG PATH LVL 4 (09/30/18) TISSUES: A. ARTERY, NOS - RT ARTERY PLAQUE B. LYMPH NODE, NOS - RT CERVICAL LYMPH NODE CONTINUED ON NEXT PAGE RUN DATE: 10/01/18 [place] - LAB PAGE 2 RUN TIME: 1158 Specimen Inquiry RUN USER:INTERFACE SPEC #: [id number] PATIENT: WILI SABILLON #[id number] (Continued) CLINICAL HISTORY RIGHT INTERNAL CAROTID ARTERYSTENOSIS CPT CODES CPT CODE(S): 50260 , 67261 , 25996 , , , , FINAL DIAGNOSIS A. [...] 1158 END OF REPORT - XR CHEST [id number] 07:45:00 Patient Name: WILI SABILLON Unit No: [id number] EXAMS: CPT CODE: [id number] XR CHEST 1V 04339 EXAMINATION: - XR CHEST 1V. LOCATION : [...] Jeffrey High, RT(R) Transcrpt Date/Tm/Trnsp: 10/01/2018 (0745) [email or web address] Orig Print D/T: S: 10/01/2018 (0748) [facility] NAME: WILI SABILLON [address] PHYS: [place] [address] : 1945 AGE: 72 SEX: F LOC: Z.SI07 A PHONE #: [phone] EXAM DATE: 10/01/2018 STATUS: ADM IN FAX #: [phone] RADIOLOGY NO: PAGE 1 Signed ReportBASIC METABOLIC [id number] 05:58:00 Test Item Value Reference Range Comments [...] 0.52-1.04 CALCIUM (test code=CA) 8.7 MG/DL 8.4-10.2 [id number] 05:58:00 Test Item Value Reference Range Comments MAGNESIUM (test code=MAG) 1.7 MG/DL 1.6-2.3 CBC W/AUTO [id number] 05:30:00 Test Item Value Reference Range Comments [...] RBC # (test code=NRBC#) 0.00 K/mm3 0.0-0.1 [id number] 22:38:00 Test Item Value Reference Range Comments POTASSIUM (test code=K) 3.3 MMOL/L 3.5-5.1 [id number] 22:38:00 Test Item Value Reference Range Comments MAGNESIUM (test code=MAG) 1.7 MG/DL 1.6-2.3 ARTERIAL BLOOD [id number] 17:57:00 Test Item Value Reference Range Comments [...] C >37 ABG SITE (test code=SITEA) AL ELMER TEST (test code=ANNAS) NA CHECK FIO2 (test code=COHBGFFIO2) 40 % BASIC METABOLIC [id number] 16:18:00 Test Item Value Reference Range Comments [...] 0.52-1.04 CALCIUM (test code=CA) 8.9 MG/DL 8.4-10.2 [id number] 16:18:00 Test Item Value Reference Range Comments MAGNESIUM (test code=MAG) 1.3 MG/DL 1.6-2.3 CBC W/AUTO [id number] 16:06:00 Test Item Value Reference Range Comments [...] code=NRBC#) 0.00 K/mm3 0.0-0.1 - XR CHEST [id number] 15:29:00 Patient Name: WILI SABILLON Unit No: [id number] EXAMS: CPT CODE: [id number] XR CHEST 1V 94513 EXAM: CHEST ONE VIEW INDICATION: Postop LOCATION: COMPARISON: September 29, 2018 TECHNIQUE: AP view [...] Alhaji Cha RT(R) Transcrpt Date/Tm/Trnsp: 09/30/2018 (1529) t.MD16 OrigPrint D /T: S: 09/30/2018 (1612) [facility] NAME: WILI SABILLON [id number] PHYS: [place] [address] : 1945 AGE: 72 SEX: F LOC: [id number] Stephy PHONE #: [phone] EXAM DATE: 09/30/2018 STATUS: ADM IN FAX #: [phone] RADIOLOGY NO: PAGE 1 Signed ReportHIV 12 AB [id number] 19 :14:00 Test Item Value Reference Range Comments AB HIV 1 2 (test NON REACTIVE NON-REAC NOTE: A NONREACTIVE RESULT code=IVJ13DX) INDICATES THAT HIV-1 AND HIV-2ANTIBODIES HAVE NOT BEEN FOUND IN THIS PATIENT SPECIMEN. ANON-REACTIVE RESULT, HOWEVER, DOES NOT PRECLUDE PREVIOUSEXPOSURE OR INFECTION WITH HIV1. AG HIV1 P24 (test NON REACTIVE NONE REAC code=WGV3K10) PROTHROMBIN [id number] 14:22:00 Test Item Value Reference Range Comments [...] recurrent systemic embolism. 3.0 - 4.5 PTT [id number] 14:22:00 Test Item Value Reference Range Comments PTT ACTIVATED (test code=APTT) 29.3 SECONDS 22.0-33.0 BASIC METABOLIC [id number] 14:18:00 Test Item Value Reference Range Comments [...] 9.9 MG/DL 8.4-10.2 - XR CHEST 2 [id number] 14:14:00 Patient Name: WILI SABILLON Unit No: [id number] EXAMS: CPT CODE: [id number] XR CHEST 2 V 96416 EXAM: CHEST 2 VIEWS INDICATION: PRE-OP LOCATION [...] Technologist: Gay Wolfe, RT(R) Transcrpt Date/Tm/Trnsp: 09/29/2018 (4794) [id number] Orig Print D/T: S: (2399) [facility] NAME: WILI SABILLON [id number] PHYS: [place] [address] : 1945 AGE: 72 SEX: F LOC: [id number] PHONE #: [phone] EXAM DATE: 09/29/2018 STATUS: PRE IN FAX #: [phone] RADIOLOGY NO: PAGE 1 Signed ReportCBC W/AUTO [id number] 13:57:00 Test Item Value Reference Range Comments [...] (test code=NRBC#) 0.00 K/mm3 0.0-0.1 BASIC METABOLIC [id number] 06:04:00 Test Item Value Reference Range Comments [...] HIGH.........130-159 mg/dL HIGH.........160-189 mg/dL VERY HIGH.........>/=190 mg/dL [id number] 06:04:00 Test Item Value Reference Range Comments MAGNESIUM (test code=MAG) 1.9 MG/DL 1.6-2.3 PROTHROMBIN [id number] 06:00:00 Test Item Value Reference Range Comments [...] systemic embolism. 3.0 - 4.5 Comments to [employer]: WILL BRING TO LABPTT [id number] 06:00:00 Test Item Value Reference Range Comments PTT ACTIVATED (test code=APTT) 29.3 SECONDS 22.0-33.0 Comments to [employer]: WILL BRING TO LABBASIC METABOLIC [id number] 05:54 :00 Test Item Value Reference Range [...] code=HDL) LIPOPROTEIN LDL (test MG/DL 0-99 code=LDL) [id number] 05:54:00 Test Item Value Reference Range Comments MAGNESIUM (test code=MAG) 1.9 MG/DL 1.6-2.3 CBC W/AUTO [id number] 05:41:00 Test Item Value Reference Range Comments [...]
[2019-06-17] MEDS ORDERED: NA CHLORIDE 0.9% 500 ML ONE (13:00)
[2019-06-17 13:07] LABS: Absolute Lymphocytes (CBC) 0.8 K/uL (0.7-4.9); Basophils % 0.3 % (0-1.3); Lymphocytes % 10.6 % (15.3-44.8); MPV 7.1 fL (7.6-11.3); RBC Red Blood Cell Count 3.93 M/uL (3.86-4.86)
[2019-06-17 13:24] LABS: Albumin 3.8 g/dL (3.4-5.0); Bilirubin Direct 0.1 mg/dL (0-0.2); Bilirubin Total 0.7 mg/dL (0.2-1.0); Potassium 3.7 mmol/L (3.5-5.1)
--- NOTE | 2019-06-17 13:41 | EDPHYS ---
Physician Documentation [facility] Name: Racheal Dia Age: 73 yrs Sex: Female : 1945 Arrival Date: 06/17/2019 Time: 10:32 Bed 26 Private MD: ED Physician Donovan Samano HPI: 06/17 07:37 This 73 yrs old Black Female presents to ER via Wheelchair with complaints of Nausea, kdr Low BP. 07:38 The patient has had abdominal pain for about three weeks. She went to the GI center kdr today and was noted to be orthostatic (SBP=62 on standing). Her legs were shaking and she felt weak so she was sent to the ED for evaluation. Onset: The symptoms/episode began/occurred gradually, 2 week(s) ago. Severity of symptoms: At their worst the symptoms were mild in the emergency department the symptoms are unchanged. The patient has not experienced similar symptoms in the past. The patient has not recently seen a physician. Historical: - Allergies: 06/16 11:16 No Known Allergies; ca1 - Home Meds: 11:16 aspirin 81 mg Oral chew [Active]; atorvastatin Oral [Active]; clopidogrel Oral ca1 [Active]; Isosorbide Mononitrate Oral [Active]; levothyroxine oral [Active]; losartan Oral [Active]; Metoprolol Tartrate Oral [Active]; - PMHx: 11:16 CHF; Hypertension; Hypothyroidism; ca1 - PSHx: 11:16 Carotid Artery; ca1 - Immunization history:: Adult Immunizations up to date, Pneumococcal vaccine is up to date, Flu vaccine is up to date. - Social history:: Smoking status: Patient denies any tobacco usage or history of. ROS: 06/17 07:38 Constitutional: Negative for fever, chills, and weight loss - she has felt genrally kdr weak and for the past three days has not eaten much Eyes: Negative for injury, pain, redness, and discharge, ENT: Negative for injury, pain, and discharge, Neck: Negative for injury, pain, and swelling, Cardiovascular: Negative for chest pain, palpitations, and edema, Respiratory: Negative for shortness of breath, cough, wheezing, and pleuritic chest pain, Abdomen/GI: Negative for abdominal pain, vomiting, diarrhea, and constipation - she has had mild nausea Back: Negative for injury and pain, : Negative for injury, bleeding, discharge, and swelling, MS/Extremity: Negative for injury and deformity, Skin: Negative for injury, rash, and discoloration, Neuro: Negative for headache, weakness, numbness, tingling, and seizure activity. Psych: Negative for depression, anxiety, suicide ideation, homicidal ideation, and hallucinations, Allergy/Immunology: Negative for hives, rash, and allergies, Endocrine: Negative for neck swelling, polydipsia, polyuria, polyphagia, and marked weight changes, Hematologic/Lymphatic: Negative for swollen nodes, abnormal bleeding, and unusual bruising. Exam: 07:38 Constitutional: This is a well developed, well nourished patient who is awake, alert, kdr and in no acute distress. Head/Face: Normocephalic, atraumatic. Eyes: Pupils equal round and reactive to light, extra-ocular motions intact. Lids and lashes normal. Conjunctiva and sclera are non-icteric and not injected. Cornea within normal limits. Periorbital areas with no swelling, redness, or edema. Neck: Trachea midline, no thyromegaly or masses palpated, and no cervical lymphadenopathy. Supple, full range of motion without nuchal rigidity, or vertebral point tenderness. No Meningismus. Chest/axilla: Normal chest wall appearance and motion. Nontender with no deformity. No lesions are appreciated. Cardiovascular: Regular rate and rhythm with a normal S1 and S2. No gallops, murmurs, or rubs. Normal PMI, no JVD. No pulse deficits. Respiratory: Lungs have equal breath sounds bilaterally, clear to auscultation and percussion. No rales, rhonchi or wheezes noted. No increased work of breathing, no retractions or nasal flaring. Abdomen/GI: Soft, non-tender, with normal bowel sounds. No distension or tympany. No guarding or rebound. No evidence of tenderness throughout. Back: No spinal tenderness. No costovertebral tenderness. Full range of motion. Skin: Warm, dry with normal turgor. Normal color with no rashes, no lesions, and no evidence of cellulitis. MS/ Extremity: Pulses equal, no cyanosis. Neurovascular intact. Full, normal range of motion. Neuro: Awake and alert, GCS 15, oriented to person, place, time, and situation. Cranial nerves II-XII grossly intact. Motor strength 5/5 in all extremities. Sensory grossly intact. Cerebellar exam normal. Normal gait. Psych: Awake, alert, with orientation to person, place and time. Behavior, mood, and affect are within normal limits. Vital Signs: 06/16 11:13 BP 98 / 71; Pulse 67; Resp 16 S; Temp 97.2(O); Pulse Ox 99% on R/A; Weight 55.34 kg ca1 (R); Height 5 ft. 1 in. (154.94 cm) (R); 12:15 BP 142 / 76; Pulse 60; Resp 16; Pulse Ox 99% on R/A; iw 13:50 BP 202 / 114 Supine; Pulse 66; iw 13:55 BP 198 / 117 Sitting; Pulse 68; iw 14:00 BP 168 / 105 Standing; Pulse 71; iw 14:50 BP 210 / 111; Pulse 75; Resp 16; Pulse Ox 100% on R/A; iw 15:04 BP 178 / 99; Pulse 60; Resp 16; Pulse Ox 100% on R/A; Pain 0/10; iw 15:27 BP 122 / 90; Pulse 79; Resp 18; Pulse Ox 98% on R/A; Pain 7/10; ls4 11:13 Body Mass Index 23.05 (55.34 kg, 154.94 cm) ca1 MDM: 13:40 Patient medically screened. kdr 06/17 07:38 Data reviewed: vital signs, nurses notes, lab test result(s), radiologic studies. kdr Counseling: I had a detailed discussion with the patient and/or guardian regarding: the historical points, exam findings, and any diagnostic results supporting the discharge/admit diagnosis, lab results, radiology results, the need for further work-up and treatment in the hospital. ED course: The patient remained very weak in the ED and while her BP had been initially low, she became very hypertensive in the ED. 06/16 12:32 Order name: Basic Metabolic Panel; Complete Time: 13:27 kdr 06/16 12:32 Order name: CBC with Diff; Complete Time: 13:27 kdr 06/16 12:32 Order name: Creatinine for Radiology; Complete Time: 13:34 kdr 06/16 12:32 Order name: Hepatic Function; Complete Time: 13:27 kdr 06/16 14:09 Order name: Urine Dipstick--Ancillary (enter results) bd 06/16 14:17 Order name: Urine Dipstick-Ancillary EDAK 06/16 12:32 Order name: IV Saline Lock; Complete Time: 13:13 kdr 06/16 12:32 Order name: Labs collected and sent; Complete Time: 13:13 kdr 06/16 12:32 Order name: Orthostatic Blood Pressure; Complete Time: 14:07 kdr 06/16 12:33 Order name: Urine Dipstick-Ancillary (obtain specimen); Complete Time: 13:12 kdr Administered Medications: 06/16 13:17 Drug: NS 0.9% 500 ml Route: IV; Rate: bolus; Site: left hand; iw 15:54 Follow up: Response: No adverse reaction; IV Status: Completed infusion 14:53 Drug: hydrALAZINE 10 mg Route: IV; Rate: calculated rate; Site: left hand; iw 15:53 Follow up: Response: No adverse reaction; IV Status: Completed infusion 15:54 Follow up: Response: Blood pressure is lowered 15:34 Drug: Zofran (Ondansetron) 4 mg Route: IVP; Site: left forearm; ls4 15:53 Follow up: Response: No adverse reaction; Pain is decreased; Nausea is decreased Disposition: 06/17/19 13:40 Hospitalization ordered by Mary Carmen Beal for Observation. Preliminary diagnosis are Orthostatic hypotension, Weakness, Hypertensive heart disease, Hypo-osmolality and hyponatremia. - Bed requested for Telemetry/MedSurg (observation). - Status is Observation. - Condition is Stable. - Problem is an acute exacerbation. - Symptoms have improved. Signatures: Dispatcher [employer] EDAK Tameka Rabago Donovan Samano MD MD kdr Dianna Walter RN RN iw Rashid Duvall Javier Martino RN RN ja1 Phuong Hackett RN RN ls4 Emma Sheets RN RN ca1 Corrections: (The following items were deleted from the chart) 15:05 13:40 Hospitalization Ordered by Mary Carmen Beal MD for Observation. Preliminary diagnosis bd is Orthostatic hypotension; Weakness; Hypertensive heart disease; Hypo-osmolality and hyponatremia. Bed requested for Telemetry/MedSurg (observation). Status is Observation. Condition is Stable. Problem is an acute exacerbation. Symptoms have improved. kdr 15:05 15:05 06/17/2019 13:40 Hospitalization Ordered by Mary Carmen Beal MD for Observation. ja1 Preliminary diagnosis is Orthostatic hypotension; Weakness; Hypertensive heart disease; Hypo-osmolality and hyponatremia. Bed requested for Telemetry/MedSurg (observation). Status is Observation. Condition is Stable. Problem is an acute exacerbation. Symptoms have improved. bd 15:54 15:05 06/17/2019 13:40 Hospitalization Ordered by Mary Carmen Beal MD for Observation. wh Preliminary diagnosis is Orthostatic hypotension; Weakness; Hypertensive heart disease; Hypo-osmolality and hyponatremia. Bed requested for Telemetry/MedSurg (observation). Status is Observation. Condition is Stable. Problem is an acute exacerbation. Symptoms have improved. ja1
--- NOTE | 2019-06-17 13:41 | ER ---
Nurse's Notes [facility] Name: Racheal Dia Age: 73 yrs Sex: Female : 1945 Arrival Date: 06/17/2019 Time: 10:32 Bed 26 Private MD: Diagnosis: Orthostatic hypotension;Weakness;Hypertensive heart disease;Hypo-osmolality and hyponatremia Presentation: 06/16 11:13 Chief complaint: Patient's son or daughter states: At the GI clinic for abdominal x 3 ca1 weeks. BP was at 62/45. Reports nausea. Denies vomiting and diarrhea. Coronavirus screen: The patient has NOT traveled to a country currently being monitored by the [facility] within the last 14 days. The patient has NOT had contact with any known and/or suspected case of coronavirus. Ebola Screen: Patient negative for fever greater than or equal to 101.5 degrees Fahrenheit, and additional compatible Ebola Virus Disease symptoms Patient denies exposure to infectious person. Patient denies travel to an Ebola-affected area in the 21 days before illness onset. No symptoms or risks identified at this time. Initial Sepsis Screen: Does the patient meet any 2 criteria? No. Patient's initial sepsis screen is negative. Does the patient have a suspected source of infection? No. Patient's initial sepsis screen is negative. Risk Assessment: Do you want to hurt yourself or someone else? Patient reports no desire to harm self or others. Onset of symptoms was June 17, 2019. 11:13 Method Of Arrival: Wheelchair ca1 11:13 Acuity: AISHA 3 ca1 Triage Assessment: 11:16 General: Appears in no apparent distress. comfortable, Behavior is calm, cooperative, ca1 appropriate for age. Neuro: Level of Consciousness is awake, alert, obeys commands, Oriented to person, place, time, situation. GI: Reports nausea. Historical: - Allergies: 11:16 No Known Allergies; ca1 - Home Meds: 11:16 aspirin 81 mg Oral chew [Active]; atorvastatin Oral [Active]; clopidogrel Oral ca1 [Active]; Isosorbide Mononitrate Oral [Active]; levothyroxine oral [Active]; losartan Oral [Active]; Metoprolol Tartrate Oral [Active]; - PMHx: 11:16 CHF; Hypertension; Hypothyroidism; ca1 - PSHx: 11:16 Carotid Artery; ca1 - Immunization history:: Adult Immunizations up to date, Pneumococcal vaccine is up to date, Flu vaccine is up to date. - Social history:: Smoking status: Patient denies any tobacco usage or history of. Screenin:17 Abuse screen: Denies threats or abuse. Denies injuries from another. Nutritional iw screening: No deficits noted. Tuberculosis screening: No symptoms or risk factors identified. Fall Risk None identified. Assessment: 12:16 General: Appears in no apparent distress. Behavior is calm, cooperative. General: iw Reports chills for fatigue for Denies fever. Pain: Complains of pain in abdomen. Neuro: Level of Consciousness is awake, alert, obeys commands, Oriented to person, place, time, situation, Moves all extremities. Full function. Neuro: Denies weakness dizziness. Cardiovascular: Patient's skin is warm and dry. Respiratory: Respiratory effort is even, unlabored, Respiratory pattern is regular. GI: Abdomen is flat, non-distended, Reports constipation, nausea. GI: Patient currently denies vomiting. : Denies burning with urination, pain with urination urinary frequency, urgency. Derm: Skin is intact, is healthy with good turgor. Musculoskeletal: Range of motion: intact in all extremities. 14:00 Reassessment: Patient appears in no apparent distress at this time. Patient and/or iw family updated on plan of care and expected duration. Pain level reassessed. Patient is alert, oriented x 3, equal unlabored respirations, skin warm/dry/pink. pt up to bathroom, assisted by daughter, gait steady. 14:54 Reassessment: Patient appears in no apparent distress at this time. BP reading 220/111, iw Dr. Yates at bedside, verbal order for 10 mg Hydralazine IVP, given now , order for repeat dose if needed. 15:15 Reassessment: Patient appears in no apparent distress at this time. Patient and/or wh family updated on plan of care and expected duration. Pain level reassessed. Patient is alert, oriented x 3, equal unlabored respirations, skin warm/dry/pink. Vital Signs: 11:13 BP 98 / 71; Pulse 67; Resp 16 S; Temp 97.2(O); Pulse Ox 99% on R/A; Weight 55.34 kg ca1 (R); Height 5 ft. 1 in. (154.94 cm) (R); 12:15 BP 142 / 76; Pulse 60; Resp 16; Pulse Ox 99% on R/A; iw 13:50 BP 202 / 114 Supine; Pulse 66; iw 13:55 BP 198 / 117 Sitting; Pulse 68; iw 14:00 BP 168 / 105 Standing; Pulse 71; iw 14:50 BP 210 / 111; Pulse 75; Resp 16; Pulse Ox 100% on R/A; iw 15:04 BP 178 / 99; Pulse 60; Resp 16; Pulse Ox 100% on R/A; Pain 0/10; iw 15:27 BP 122 / 90; Pulse 79; Resp 18; Pulse Ox 98% on R/A; Pain 7/10; ls4 11:13 Body Mass Index 23.05 (55.34 kg, 154.94 cm) ca1 ED Course: 10:32 Patient arrived in ED. rg4 11:15 Triage completed. ca1 11:16 Arm band placed on right wrist. ca1 12:09 Donovan Samano MD is Attending Physician. kdr 12:14 Dianna Walter RN is Primary Nurse. iw 12:17 Patient has correct armband on for positive identification. iw 12:55 Inserted saline lock: 24 gauge in left hand, using aseptic technique. Blood collected. jp3 Patient maintains SpO2 saturation greater than 95% on room air. 12:55 Initial lab(s) drawn, by me, sent to lab. jp3 13:10 Urine collected: clean catch specimen, clear, conor colored. jp3 13:39 Mary Carmen Yates MD is Hospitalizing Provider. kdr 15:51 No provider procedures requiring assistance completed. Patient admitted, IV remains in place. Administered Medications: 13:17 Drug: NS 0.9% 500 ml Route: IV; Rate: bolus; Site: left hand; iw 15:54 Follow up: Response: No adverse reaction; IV Status: Completed infusion wh 14:53 Drug: hydrALAZINE 10 mg Route: IV; Rate: calculated rate; Site: left hand; iw 15:53 Follow up: Response: No adverse reaction; IV Status: Completed infusion wh 15:54 Follow up: Response: Blood pressure is lowered 15:34 Drug: Zofran (Ondansetron) 4 mg Route: IVP; Site: left forearm; ls4 15:53 Follow up: Response: No adverse reaction; Pain is decreased; Nausea is decreased Outcome: 13:40 Decision to Hospitalize by Provider. kdr 15:51 Admitted to Tele accompanied by tech, via stretcher, room 403, with chart, Report wh called to Frieda DEGROOT 15:51 Condition: stable 15:51 Instructed on the need for admit. 15:54 Patient left the ED. Signatures: Donovan Samano MD MD kdr Dianna Walter, RN RN Kaykay Rosado rg4 Rashid Duvall Gonzalo Quinonez jp3 Phuong Hackett, RN RN ls4 Emma Sheets RN RN ca1
[2019-06-17 14:15] LABS: Urine Blood TRACE (NEG); Urine Glucose NEGATIVE (NEG); Urine Protein TRACE (NEG); Urine pH 8.5 (5.0-7.0)
[2019-06-17] MEDS ORDERED: HYDRALAZINE HCL 20 MG/ML VIAL ONE (14:54)
[2019-06-17] MEDS ORDERED: ONDANSETRON 4 MG/2 ML VIAL ONE (15:34)
[2019-06-17] MEDS ORDERED: ACETAMINOPHEN 500 MG TAB PO PRN (15:44)
[2019-06-17] MEDS ORDERED: ONDANSETRON 4 MG/2 ML VIAL IV PRN (15:44)
[2019-06-17] MEDS: ENOXAPARIN 40 MG/0.4 ML SQ SCH (16:07)
[2019-06-17] MEDS: HYDRALAZINE HCL 20 MG/ML VIAL IV PRN (16:07)
[2019-06-17] MEDS: NA CHLORIDE 0.9% 1,000 ML IV SCH (16:08)
[2019-06-17 16:35] VITALS: BMI 22.9
[2019-06-17] MEDS ORDERED: POLYETHYL GLY 3350 17 GM/DOSE PO PRN (17:14)
[2019-06-17 17:15] LABS: Thyroid Stimulating Hormone 1.19 uIU/mL (0.360-3.740); Uric Acid 4.2 mg/dL (2.6-6.0)
--- NOTE | 2019-06-17 17:44 | RAD REPORT ---
EXAM DESCRIPTION: TAMYNisha Single View06/17/2019 5:37 pm CLINICAL HISTORY: Cough COMPARISON: 2018 FINDINGS: There may be aneurysmal dilatation of the thoracic aorta The lungs appear clear of acute infiltrate. The heart is normal size
[2019-06-17 19:41] LABS: Urine Appearance CLEAR; Urine Bilirubin NEGATIVE (NEG); Urine Blood NEGATIVE (NEG); Urine Color YELLOW; Urine Glucose NEGATIVE (NEG); Urine Microscopic Reflex ORDER UMIC; Urine Protein NEGATIVE (NEG); Urine Urobilinogen 0.2 mg/dL (0.2-1.0); Urine pH 7.5 (5.0-7.0)
[2019-06-17] MEDS: DOCUSATE NA 100 MG CAP PO SCH (20:05)
[2019-06-17 20:23] LABS: Urine Bacteria >50 /HPF (<20); Urine Culture Reflex Order REFLEXED; Urine RBC <5 /HPF (NONE SEEN)
--- NOTE | 2019-06-17 23:31 | HP ---
Date of Admission: 06/17/2019 Primary Care Physician: She does not have a primary care physician at this time. Code Status: Full. Chief Complaint: Orthostatic hypotension. History Of Present Illness: Patient is a 73-year-old female with past medical history of hypertensio n, hypothyroidism, coronary artery disease status post stent, congestive heart failure, carotid arter y disease status post carotid endarterectomy, status post splenectomy, comes in with abdominal discom fort, constipation for 3 days. She was at her GI doctor's office today, she also has decreased p.o. intake and generalized malaise. Patient also reports some subjective fevers and chills. Otherwise, denies any ill contacts. She feels like she is having a sinus-type infection. The patient's symptom s are constant, moderate, progressively worsening. At the GI doctor's office, patient's orthostatic vital signs were positive and her systolic blood pressure dropped from 90-60 when getting up. Theref ore, patient was sent into the ER for further evaluation. In the ER, patient's initial blood pressure slowly climbed up to the 140s and then subsequently came up to the 200s. Her workup revealed sodium level of 122. White blood cell count was normal. UA was negative. Patient was then referred for admission, she was given 0.5 L bolus in the ER prior to her blood pressure being elevated. When seen in the ER, she was awake, alert, and oriented x3, in some mild distress. Past Medical History: Hypertension, hypothyroidism, coronary artery disease status post stent, conge stive heart failure, carotid artery disease. Past Surgical History: Cardiac stents, carotid endarterectomy, splenectomy. Allergies: NO KNOWN DRUG ALLERGIES. Medications: List reviewed. Social History: Patient denies any alcohol use. Did smoke for over 50 years, quit approximately 2 y ears ago. Patient is independent in her activities of daily living. Lives with her daughter. Family History: Hypertension runs in the family. Review of Systems: Ten-point system reviewed, negative except as per HPI. Physical Examination: Initial Vital Signs: Blood pressure showed 98/71, climbed up to 142/76, and then 202/114, temperatur e 97.2, heart rate 67, respirations 16, O2 98% on room air. General: Awake, alert, and oriented x3. Elderly female, in some mild distress. HEENT: Normocephalic, atraumatic. PERRLA. EOMI. Moist dry mucous membranes. Oropharynx is clear. Conjunctivae are anicteric. Poor dentition. Neck: Supple. No JVD. Trachea midline. CV: S1, S2. Regular rate and rhythm. Peripheral pulses present. Respiratory: Moving air well bilaterally. No wheezing or stridor. No use of accessory muscles. Gastrointestinal: Abdomen is soft, nontender, nondistended. Positive bowel sounds. Extremities: No clubbing, cyanosis, or edema. Neuro: Cranial nerves 2 through 12 intact grossly. No focal neurological deficit. Speech is normal . Skin: No rashes, normal skin turgor. Psych: Mood is okay. Affect is full. Insight and judgment are good. Laboratory Data: WBC 7.5, H and H 12.8 and 38, platelets 338, neutrophils 77%. Sodium 122, potassiu m 3.7, chloride 85, CO2 of 29, BUN 14, creatinine 1.17, glucose 94. UA; negative nitrite, negative l eukocyte esterase, trace blood. Assessment: A 73-year-old female with, 1.Labile blood pressure, hypertensive emergency. Patient initially was hypotensive, now blood press ure systolic in the 200s, responded slightly to hydralazine. We will continue p.r.n. medications. W e will resume her home medications. We will monitor for rapid drop in blood pressure. 2.Hyponatremia, acute. We will check serum osmolality. Appreciate Nephrology input, unclear etiolo gy. 3.Hypothyroidism. We will check TSH. 4.Coronary artery disease [place] artery, [place] heart status post stent without angina. We will con tinue home medications. Patient is on aspirin and Plavix. 5.Congestive heart failure, likely diastolic dysfunction, chronic. We will continue to monitor I's and O's, free fluid restriction. 6.History of carotid artery disease status post carotid endarterectomy. 7.Status post splenectomy. Patient should be on daily dose of prophylactic penicillin. 8.Deep vein thrombosis prophylaxis with Lovenox. Plan: Admit patient to Med-Surg, place as observation. /CHON Voice ID: [id number]
[2019-06-17 23:54] LABS: Potassium 3.8 mmol/L (3.5-5.1)
[2019-06-18] MEDS: HYDRALAZINE HCL 20 MG/ML VIAL IV PRN ×3 (00:49→22:38)
[2019-06-18] MEDS: NA CHLORIDE 0.9% 1,000 ML IV SCH ×3 (00:50→20:18)
[2019-06-18] MEDS ORDERED: HYDROCODONE/APAP 5/325 MG TAB PO ONE (02:04)
[2019-06-18 06:01] LABS: Absolute Lymphocytes (CBC) 0.8 K/uL (0.7-4.9); Basophils % 0.3 % (0-1.3); Hematocrit 34.3 % (36.0-45.0); MPV 7.5 fL (7.6-11.3); RBC Red Blood Cell Count 3.58 M/uL (3.86-4.86)
[2019-06-18 06:04] LABS: Albumin 3.1 g/dL (3.4-5.0); Bilirubin Total 0.5 mg/dL (0.2-1.0); Phosphorus 2.8 mg/dL (2.5-4.9); Potassium 3.3 mmol/L (3.5-5.1); Protein, Total 7.3 g/dL (6.4-8.2)
[2019-06-18] MEDS: LEVOTHYROXINE SOD 0.1 MG TAB PO SCH (06:27)
[2019-06-18 06:31] LABS: Thyroid Stimulating Hormone 0.548 uIU/mL (0.360-3.740); Troponin I 0.03 ng/mL (0.0-0.045)
[2019-06-18 06:34] LABS: Magnesium 1.4 mg/dL (1.8-2.4)
[2019-06-18] MEDS ORDERED: Magnesium Sulfate 2gm IVPB 2 G/50 ML BAG IV ONE (06:42)
[2019-06-18] MEDS ORDERED: NA CHLORIDE 0.9% 1,000 ML IV ONE (07:54)
[2019-06-18] MEDS ORDERED: NA CHLORIDE 0.9% 1,000 ML ONE (07:58)
[2019-06-18] MEDS: ISOSORBIDE MONO SR 30 MG TAB PO SCH (09:00)
[2019-06-18] MEDS ORDERED: LOSARTAN/HCTZ 50-12.5 PO SCH (09:00)
[2019-06-18] MEDS ORDERED: HOME MED 1 EA UNK (Losartan/Hydrochlorothiazide [Losartan-Hctz 100-12.5 Mg Tab] 1 TAB) PO SCH (09:00)
[2019-06-18] MEDS ORDERED: LOSARTAN POTASSIUM 50 MG TABLET PO SCH (09:00)
[2019-06-18] MEDS: METOPROLOL XL 100 MG TAB PO SCH (09:00)
[2019-06-18] MEDS: PANTOPRAZOLE 40MG TABLET PO SCH (09:16)
[2019-06-18] MEDS: ASPIRIN 81 MG CHEWABLE TABLET PO SCH ×2 (09:16→09:17)
[2019-06-18] MEDS: DOCUSATE NA 100 MG CAP PO SCH ×2 (09:16→20:14)
[2019-06-18] MEDS: ATORVASTATIN 40 MG TAB PO SCH (09:17)
[2019-06-18] MEDS: CLOPIDOGREL 75 MG TABLET PO SCH (09:17)
[2019-06-18] MEDS: ENOXAPARIN 40 MG/0.4 ML SQ SCH (09:18)
--- NOTE | 2019-06-18 09:43 | RAD REPORT ---
EXAM DESCRIPTION: CT - Angio Aorta For Dissection - 06/18/2019 7:17 am CLINICAL HISTORY: 73-year-old female with diffuse abdominal pain for three weeks, orthostatic hypote nsion, weakness, prior splenectomy. TECHNIQUE: Following the administration of intravenous contrast, multiple high-resolution axial imag es of the chest, abdomen and pelvis were performed followed by sagittal and coronal reconstructed terri ges. MIP images were not obtained.The CT study is performed according to ALARA (as low as reasonably achievable) or ALARA/IMAGE GENTLY, with automatic adjustment of mA and/or kV according to patient siz e. Performed on: 06/18/2019 at 5:38 AM COMPARISON: CT abdomen and pelvis performed on 01/21/2019 FINDINGS: CTA CHEST: There is satisfactory visualization and contrast opacification of pulmonary arteries. No definite i ntra-arterial filling defects are identified to suggest acute or chronic pulmonary embolism. The thor acic aorta is normal in caliber and contour without evidence of aneurysm or dissection. The lungs are well expanded and are clear. There is no evidence of a pneumothorax. There are no pleur al effusions. There is minimal bibasilar fibrosis and/or atelectasis. There is minimal centrilobular emphysema. The heart is normal in size. There is no pericardial effusion. There is no reflux of contrast into th e hepatic veins to suggest right heart strain. The RV/LV ratio is within normal limits. There is no evidence of hilar, mediastinal or axillary lymphadenopathy. No acute osseous abnormality is identified. Non-Angiographic Findings: No acute abnormalities. CTA ABDOMEN AND PELVIS: Liver: The liver is normal in size and configuration. No focal hepatic abnormalities are identified. Liver attenuation is within normal limits. Spleen: The spleen is surgically absent. There are multiple small splenules in the left upper quadran t. Gallbladder and bile duct: The gallbladder is well distended and unremarkable. There is no biliary ductal dilatation. Pancreas: The pancreas is grossly normal in size and configuration. Adrenal Glands: The adrenal glands are normal in size and configuration. Kidneys: The kidneys are normal in size and configuration. There is no evidence of hydronephrosis. Th ere is no evidence of nephrolithiasis. There are a few tiny left renal cysts. There is stranding of t he perinephric fat along the upper pole of the left kidney similar when compared to the prior study. This may represent fibrosis or possibly perinephric inflammation. Stomach: The stomach is grossly normal. There is no definite hiatal hernia. Bowel: The bowel gas pattern is non specific and non obstructive. Appendix: The appendix is normal. Free air: There is no evidence of free air. Free fluid: There is no evidence of free fluid. Vasculature: The aorta is normal in caliber and contour. There are mild atherosclerotic calcification s along the abdominal aorta and iliac arteries. The celiac artery is patent. There is mild stenosis a t the origin of the celiac artery. The splenic artery and hepatic artery are unremarkable. The superi or mesenteric artery is patent and is grossly normal in caliber and contour. The inferior mesenteric arteries within normal limits. There are two left renal arteries and a single right renal artery. The renal arteries are widely patent. The renal artery to the left upper pole is diminutive in caliber. The main renal arteries are normal in caliber and contour and are unremarkable. The inferior vena cav a is grossly unremarkable. Lymphadenopathy: No pathologic lymphadenopathy is identified. Bladder: The bladder is well distended and smooth in contour. Reproductive: The uterus is grossly within normal limits. Bones: No acute osseous abnormalities are identified. There are mild degenerative changes of the lumb ar spine. Soft tissues: Again demonstrated is a coarse calcification along the anterior inferior aspect of the urinary bladder stable when compared to the prior study. There is also a lucent centered calcificatio n within the left hemipelvis above the urinary bladder to the left of midline possibly representing a calcified lymph node or phlebolith. There is subcutaneous emphysema along the anterior lower abdomin al wall to the left of midline possibly iatrogenic in nature related to medication injection. IMPRESSION: CTA CHEST: 1. No CT evidence to suggest acute or chronic pulmonary embolism, aortic aneurysm or aortic dissectio n. 2. Minimal bibasilar fibrosis and/or atelectasis and minimal centrilobular emphysema. CTA ABDOMEN AND PELVIS: 1. Normal CTA of the abdomen and pelvis. There is no evidence of aortic aneurysm or aortic dissection . There are mild to moderate atherosclerotic calcifications of the abdominal aorta and iliac arteries . 2. Prior splenectomy. There are multiple small splenules in the left upper quadrant. 3. No evidence of acute intra-abdominal or intrapelvic pathology. 4. Stable coarse calcification along the anterior inferior aspect of the urinary bladder and stable l ucent centered calcification in the left hemipelvis of the above the urinary bladder to the left of m idline possibly representing a calcified lymph node or phlebolith. 5. Stranding of the perinephric fat along the upper pole of the left kidney posteriorly similar when compared to the prior study possibly representing scarring or possibly perinephric inflammation. Electronically signed by: Rosemarie Banegas DO 06/18/2019 6:30 AM SPOKE [employer]ER Due to temporary technical issues with the PACS/Fluency reporting system, reports are being signed by the in house radiologist as a courtesy to ensure prompt reporting. The interpreting radiologist is f ully responsible for the content of the report.
[2019-06-18] MEDS ORDERED: POTASSIUM CL SA 10 MEQ TAB PO ONE (11:13)
--- NOTE | 2019-06-18 11:37 | EKG ---
Test Date: 2019-06-18 Test Time: 05:58:31 Patient Registration Specialist: RT-O MEASUREMENT RESULTS: Intervals: Rate: 115 MO: QRSD: 80 QT: 346 QTc: 478 [place]: P: MO: QRS: 16 T: 48 INTERPRETIVE STATEMENTS: Atrial fibrillation with rapid ventricular response Nonspecific ST and T wave abnormality, probably digitalis effect Abnormal ECG Compared to ECG 02/16/2019 12:19:26 ST (T wave) deviation now present Sinus bradycardia no longer present Electronically Signed On 06-18-19 11:36:01 BELT FIXER by Alejandro Woodall
[2019-06-18] MEDS: SODIUM CHLORIDE 1 GM TAB PO SCH ×2 (11:40→20:14)
--- NOTE | 2019-06-18 13:47 | CON ---
Reason For Consultation: Hyponatremia, hypomagnesemia. History Of Present Illness: This is a 73-year-old with significant past medical history of coronary artery disease, hypothyroidism, coronary artery disease status post PTCA back in 2014, carotid stenos is status post endarterectomy, hypertension, hypothyroidism. Patient was in the GI doctor's office a nd found to be low blood pressure down to the 60s. Patient apparently started on IV fluids. Blood p ressure upon arrival of 200. Workup show hyponatremia, sodium to 122. For that reason, we have been consulted. Patient apparently been on hydrochlorothiazide as outpatient with the losartan. Patient denied taking any nonsteroidal, no IV contrast. No other changes in her medication. Past Medical History: 1.Hypertension. 2.Hypothyroidism. 3.Coronary artery disease status post PTCA back in 2014. 4.Carotid stenosis status post endarterectomy on the left. Past Surgical History: Include: 1.PTCA. 2.Carotid endarterectomy. 3.Splenectomy. Allergy: No known drugs allergy. Social History: Ex-smoker. Denied alcohol. Denied drug abuse. Family History: Positive for hypertension. Home Medications: Include losartan, hydrochlorothiazide, metoprolol, levothyroxine, aspirin, atorvas tatin, pantoprazole, isosorbide. Current Medications In The Hospital: Include aspirin, docusate, hydralazine, metoprolol. Review of Systems: Head and Neck: No red eye. No ear pain. GI: Has constipation. : No polyuria. No dysuria. No hematuria. [employer] Worker: No vaginal discharge. Respiratory: No shortness of breath. Cardiovascular: No chest pain. Endocrine: No polydipsia. Skin: No rash. Neuro: Has dizziness. Musculoskeletal: No joint pain. Physical Examination: Vital Signs: When I saw the patient, blood pressure 129/78, pulse of 87, afebrile. Chest: Clear to auscultation. Heart: S1, S2. Systolic murmur. Abdomen: Soft. Nontender. Extremities: No edema. Neurological: Alert and oriented. No focal. Vascular: Carotid bruit on the left side. Laboratory Data: Sodium 122, potassium 3.3, bicarb 25, BUN 12, creatinine 0.8, serum osmolality 255, calcium 8.5, phosphorus 2.8, magnesium 1.4. Cortisol level 38. TSH 0.5. Urinalysis; specific grav ity of 1.020, wbc of 10, urine sodium 77, urine potassium of 60. Urine osmolality 370. Again, patie nt was on hydrochlorothiazide. Assessment And Plan: 1.Hyponatremia, mostly secondary to prerenal superimposed with hydrochlorothiazide use. I _ go ahead and increase IV fluids and start the patient on salt tablets. We will follow up the lab t omorrow. I am going to repeat the lab in 6 hours. Our goal is to achieve rising sodium to 128 in th e next 12 hour. 2.Hypertension with the presence of hyponatremia, hold losartan and hydrochlorothiazide for the time being. 3.Renal cyst. Patient will follow up with primary. DELANO/CHON Voice ID: [id number] Report ID: [id number]
[2019-06-18 16:36] LABS: Urine Appearance CLEAR; Urine Bilirubin NEGATIVE (NEG); Urine Blood NEGATIVE (NEG); Urine Color YELLOW; Urine Glucose NEGATIVE (NEG); Urine Protein NEGATIVE (NEG); Urine Specific Gravity >=1.030 (1.005-1.030)
[2019-06-18 17:30] LABS: Urine Microscopic Reflex NO UMIC
[2019-06-18 18:48] LABS: Potassium 3.8 mmol/L (3.5-5.1)
--- NOTE | 2019-06-18 18:53 | PN ---
Date of Progress Note: 06/18/2019 Subjective: Patient seen and examined. Chart reviewed and case discussed with RN and Dr. Woodall. Patient's blood pressure is still very much fluctuating. She again dropped down to systolic blood pressure of 62/40 this morning. Blood pressure medications were held. Medications: List reviewed. Physical Examination: Vital Signs: Temperature 97.3, heart rate 81, blood pressure 62/40, respirations 16, O2 95% on room air, improved to 129/78 with IV fluid bolus. General: Awake, alert, oriented x3, elderly female, in some mild distress. CV: S1, S2. Irregularly irregular. Peripheral pulses present. Respiratory: Moving air well bilaterally. No wheezing or stridor. Gastrointestinal: Abdomen is soft, nontender, nondistended. Positive bowel sounds. Extremities: No clubbing, cyanosis, or edema. Neuro: Nonfocal. Laboratory Data: Sodium 122, potassium 3.3, chloride 89, CO2 25, BUN 12, creatinine 0.89, glucose 101. Serum osmolality 255, magnesium 1.4. Repeat magnesium this afternoon is 2.2. Troponin 0.03. TSH 0.548. WBC 6.9, H and H 11.4 and 34.3, platelets 309. No CT evidence to suggest acute or chronic pulmonary embolism, aortic aneurysm, or aortic dissection. Minimal bibasilar fibrosis and/or atelectasis and minimal centrilobular emphysema. CT abdomen and pelvis: Normal CT of the abdomen and pelvis. No evidence of aortic aneurysm or aortic dissection. There are [id number] atherosclerotic calcifications of the abdominal aorta and iliac arteries, prior splenectomy. There are multiple small splenules in the left upper quadrant. No evidence of intraabdominal or intrapelvic pathology. Stable coarse calcification along the anterior-inferior aspect of the urinary bladder and stable lucent calcification in the left hemipelvis of the above urinary bladder to the left of midline, possibly representing a calcified lymph node or phlebolith, stranding of the perinephric fat along the upper pole of left kidney posteriorly , similar when compared to prior study, probably representing scarring or possibly perinephric inflammation. Assessment: 73-year-old female with: 1. Hypertensive emergency. Labile blood pressure. Patient initially came in with hypertensive emergency, systolic in the 200s, now again down to 60s systolic with getting up, likely related to orthostatic hypotension. Blood pressure medications have been held. We will increase IV fluids. Appreciate Nephrology input. 2. Hyponatremia with hypoosmolality, acute. Sodium did not improve, went down from 124 to 122 last night. We will adjust IV fluids. Continue to monitor. 3. New-onset atrial fibrillation, unclear etiology. Patient did have low magnesium and other electrolytes that are abnormal. We will replace and monitor. Appreciate Dr. Woodall's input. Continue with beta-blockers. 4. Hypomagnesemia. We will replace and monitor. 5. Hypokalemia. Replace and monitor. 6. Coronary artery disease of [place] artery and [place] heart, status post stent without angina. Continue aspirin and Plavix. 7. Congestive heart failure, likely diastolic dysfunction, chronic. Monitor I 's and O's. Continue daily weights and free fluid restriction. 8. Carotid artery disease, status post endarterectomy. 9. Status post splenectomy. Continue prophylactic dose of penicillin. 10. Deep venous thrombosis prophylaxis with Lovenox. Plan: Patient is unstable for discharge due to her labile blood pressure and new-onset atrial fibrillation. We will need to continue monitoring with telemetry. We will slowly readjust blood pressure medications. We will need to repeat sodium level this evening. ANKUSH Voice ID: [id number] Report ID: [id number] KEATON
--- NOTE | 2019-06-18 19:14 | CON ---
Date of Consultation: 06/18/2019 Reason For Consultation: Atrial fibrillation. History Of Present Illness: Ms. Dia is a 73-year-old, has a history of congestive heart failure, h ypertension, hypothyroidism, and cerebrovascular disease; came in with abdominal pain; orthostatic hy potension; noted to be in atrial fibrillation. She denied PND, orthopnea, pedal edema, palpitations, or syncope. Allergies: NONE. Review of Systems: Negative. Social History: Negative. Family History: Negative. Medications At Home: Include aspirin, Lipitor, Imdur, metoprolol, losartan, and Synthroid. Physical Examination: Vital Signs: Stable. She was in atrial fibrillation at a rate of about 110. HEENT: Negative. Neck: Supple without any bruit, lymphadenopathy, JVD, or thyromegaly. Chest: Clear to auscultation and percussion. Cardiac: Revealed atrial fibrillation. Abdomen: Benign. Extremities: Revealed no clubbing, cyanosis, or edema. Diagnostic Data: Chest x-ray showed dilation of the thoracic aorta. Her sodium was 122, magnesium w as 1.4, potassium 3.3. EKG showed atrial fibrillation. Impression And Plan: 1.Atrial fibrillation probably secondary to electrolyte abnormality. I agree with metoprolol. I ag ree with Lovenox. I will fix her electrolytes. Consider Nephrology consultation. Echocardiogram is pending. Hopefully, her atrial fibrillation resolved after we correct the potassium, magnesium, and the sodium. I am not really so sure why her electrolytes are abnormal unless she is overdosing on t he losartan unintentionally. The patient lives alone. I suggest social work consult to help in her medication. 2.Dyslipidemia, well controlled. 3.Hypertension, labile. 4.History of hypothyroidism. 5.History of cardiovascular disease. I agree with holding all her medications for now, hydrate her, correct her electrolytes. See what her echocardiogram shows and we will decide on further therapy terri VANCE/CHON Voice ID: [id number] Report ID: [id number]
[2019-06-19] MEDS: NA CHLORIDE 0.9% 1,000 ML IV SCH ×3 (03:33→14:14)
[2019-06-19 05:14] LABS: Albumin 3.2 g/dL (3.4-5.0); Potassium 3.8 mmol/L (3.5-5.1); Uric Acid 3.6 mg/dL (2.6-6.0)
[2019-06-19] MEDS: HYDRALAZINE HCL 20 MG/ML VIAL IV PRN ×3 (05:27→20:46)
[2019-06-19] MEDS: LEVOTHYROXINE SOD 0.1 MG TAB PO SCH (05:28)
[2019-06-19 05:34] LABS: Urine Appearance CLEAR; Urine Bilirubin NEGATIVE (NEG); Urine Blood NEGATIVE (NEG); Urine Color YELLOW; Urine Glucose NEGATIVE (NEG); Urine Protein NEGATIVE (NEG); Urine Specific Gravity 1.015 (1.005-1.030); Urine Urobilinogen 0.2 mg/dL (0.2-1.0)
[2019-06-19 05:44] LABS: Urine Microscopic Reflex NO UMIC
[2019-06-19] MEDS: PANTOPRAZOLE 40MG TABLET PO SCH (08:40)
[2019-06-19] MEDS: ATORVASTATIN 40 MG TAB PO SCH (08:40)
[2019-06-19] MEDS: DOCUSATE NA 100 MG CAP PO SCH ×2 (08:40→20:47)
[2019-06-19] MEDS: CLOPIDOGREL 75 MG TABLET PO SCH (08:40)
[2019-06-19] MEDS: ENOXAPARIN 40 MG/0.4 ML SQ SCH (08:40)
[2019-06-19] MEDS: METOPROLOL XL 100 MG TAB PO SCH (08:40)
[2019-06-19] MEDS: SODIUM CHLORIDE 1 GM TAB PO SCH ×3 (08:41→20:48)
[2019-06-19] MEDS: ISOSORBIDE MONO SR 30 MG TAB PO SCH (08:42)
--- NOTE | 2019-06-19 11:01 | P.PN ---
Subjective Date of Service: 06/19/19 Subjective 73-year-old with woman with listed PMXh presented with low BP , found to have hyponatremia today feels better have orthostatic hypotension , agree to hold BP meds high urine osmol and sodium , sodium improved to 128 , at target cont salt tablet , will reduce NS rate and start on Ensure Past Medical History: 1. Hypertension. 2. Hypothyroidism. 3. Coronary artery disease status post PTCA back in 2014. 4. Carotid stenosis status post endarterectomy on the left. Past Surgical History: Include: 1. PTCA. 2. Carotid endarterectomy. 3. Splenectomy. Allergy: No known drugs allergy. Social History: Ex-smoker. Denied alcohol. Denied drug abuse. Family History: Positive for hypertension. 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
[2019-06-19] MEDS ORDERED: HYDRALAZINE HCL 20 MG/ML VIAL IV ONE (15:30)
--- NOTE | 2019-06-19 15:40 | PN ---
Date of Progress Note: 06/19/2019 Subjective: Case discussed with RN and Dr. Higuera. patient seems to be doing better, back in sinus rhythm, but still has orthostatic hypotension. This is likely due to her carotid enterectomy and baroreceptor dysfunction. Medications: Reviewed. Physical Examination: Vital Signs: Temperature 98.4, heart rate 104, blood pressure 177/85, respirations 20, O2 of 97% on room air. Orthostatic blood pressure lying 180/98 , heart rate of 90, sitting 175/96, heart rate 87, standing drops down to 140/83 , with a heart rate of 89. General: Awake, alert, and oriented x3. Elderly female, in some mild distress. CV: S1, S2. Now back in sinus rhythm. Regular rate. Peripheral pulses present. Respiratory: Moving air well bilaterally. No wheezing or stridor. No use of accessory muscles. Gastrointestinal: Abdomen is soft, nontender, nondistended. Positive bowel sounds. Extremities: No clubbing, cyanosis, or edema. Neurologic: Nonfocal. Laboratory Data: Sodium 128, potassium 3.8, chloride 98, CO2 of 23, BUN 8, creatinine 0.82, glucose 89, serum osmolality 266, uric acid 3.6, calcium 8.3, phosphorus 2, albumin 3.2. Urine culture showing no growth. Assessment: A 73-year-old female with; 1. Hypertensive emergency. Patient's blood pressure in the 200s, now improved. Patient's blood pressure medications have been held due to orthostatic hypotension. Continue with hydralazine p.r.n. and metoprolol only. Patient has very labile blood pressure. 2. Orthostatic hypotension likely secondary to a baroreceptor dysfunction. Patient is post carotid endarterectomy. 3. Hyponatremia and hypoosmolality. Acute sodium improving to 128. We will continue to monitor. Adjust IV fluids. Repeat sodium level this evening. Appreciate Nephrology input. 4. New onset atrial fibrillation, likely due to electrolyte abnormalities, now back in sinus rhythm. Continue with beta-blockers. Patient is on aspirin and Plavix. We will discuss with Cardiology regarding full-dose anticoagulation. 5. Hypomagnesemia. We will replace and monitor. 6. Hypokalemia. We will replace and monitor. 7. Coronary artery disease, [place] artery, [place] heart, status post stent without angina. Continue aspirin and Plavix. 8. Diastolic congestive heart failure, chronic. Continue daily weights, free fluid restriction. Monitor I's and O's. 9. Carotid artery disease status post endarterectomy. 10. Status post splenectomy. Continue penicillin for prophylaxis. 11. Deep venous thrombosis prophylaxis with Lovenox. Plan: Likely discontinue in the next 24 hours once sodium is improved and clinically stable. Patient refused home health set up. /CHON Voice ID: [id number] Report ID: [id number] MTDD
[2019-06-19 18:21] LABS: ALT/SGPT 10 U/L (12-78); AST/SGOT 13 U/L (15-37); Albumin 2.9 g/dL (3.4-5.0); Alkaline Phosphatase 76 U/L (45-117); BUN Blood Urea Nitrogen 7 mg/dL (7-18); Bicarbonate 23 mmol/L (21-32); Bilirubin Total 0.4 mg/dL (0.2-1.0); Glucose Level 131 mg/dL (74-106); Potassium 3.6 mmol/L (3.5-5.1); Protein, Total 6.8 g/dL (6.4-8.2); Sodium Level 129 mmol/L (136-145)
[2019-06-19] MEDS: ENSURE CLEAR 200 ML CAN PO SCH (20:46)
[2019-06-19] MEDS: PENICILLIN V K 250 MG TABLET PO SCH (20:47)
[2019-06-20] MEDS: NA CHLORIDE 0.9% 1,000 ML IV SCH ×3 (00:12→09:57)
[2019-06-20] MEDS: LEVOTHYROXINE SOD 0.1 MG TAB PO SCH (05:45)
[2019-06-20 06:17] LABS: Absolute Lymphocytes (CBC) 0.9 K/uL (0.7-4.9); Basophils % 0.4 % (0-1.3); Hematocrit 32.8 % (36.0-45.0); Lymphocytes % 10.9 % (15.3-44.8); MPV 7.2 fL (7.6-11.3); RBC Red Blood Cell Count 3.33 M/uL (3.86-4.86)
[2019-06-20 06:24] LABS: Albumin 2.9 g/dL (3.4-5.0); BUN Blood Urea Nitrogen 5 mg/dL (7-18); Bicarbonate 25 mmol/L (21-32); Glucose Level 103 mg/dL (74-106); Phosphorus 2.2 mg/dL (2.5-4.9); Potassium 3.3 mmol/L (3.5-5.1); Sodium Level 128 mmol/L (136-145)
--- NOTE | 2019-06-20 09:36 | PN ---
Subjective: Ms. Dia has been in sinus rhythm for about 24 hours. I do not think she needs to be o n antiarrhythmic drugs or anticoagulation. I think her atrial fibrillation was a result of her sever e electrolyte abnormalities. Once we can keep diabetes, fluid balance, blood pressure under control, I do not think she will have atrial fibrillation. Cardiology will sign off. MARISSA/CHON Voice ID: [id number] Report ID: [id number]
[2019-06-20] MEDS: ASPIRIN 81 MG CHEWABLE TABLET PO SCH (10:00)
[2019-06-20] MEDS: ENOXAPARIN 40 MG/0.4 ML SQ SCH (10:00)
[2019-06-20] MEDS: PANTOPRAZOLE 40MG TABLET PO SCH (10:00)
[2019-06-20] MEDS: CLOPIDOGREL 75 MG TABLET PO SCH (10:00)
[2019-06-20] MEDS: PENICILLIN V K 250 MG TABLET PO SCH ×2 (10:01→20:04)
[2019-06-20] MEDS: SODIUM CHLORIDE 1 GM TAB PO SCH ×3 (10:01→20:04)
[2019-06-20] MEDS: DOCUSATE NA 100 MG CAP PO SCH ×2 (10:02→20:05)
[2019-06-20] MEDS: ATORVASTATIN 40 MG TAB PO SCH (10:02)
[2019-06-20] MEDS: METOPROLOL XL 50 MG TAB PO SCH (10:06)
[2019-06-20] MEDS: ENSURE CLEAR 200 ML CAN PO SCH ×2 (10:10→20:06)
--- NOTE | 2019-06-20 14:48 | PN ---
Date of Progress Note: 06/20/2019 Subjective: Patient seen and examined. Chart reviewed and case discussed with RN and Dr. Tang. Patient's blood pressure is more stable today. Did require hydralazine last night. Sodium level st ill around 128. Medications: List reviewed. Physical Examination: Vital Signs: Temperature 97.9, heart rate 108, blood pressure 125/77, respirations 18, O2 92% on eduardo m air. General: Awake, alert, oriented x3. Elderly female, not in any acute distress. CV: S1, S2. Regular rate and rhythm. Peripheral pulses are present. Respiratory: Moving air well bilaterally. No wheezing or stridor. Gastrointestinal: Abdomen is soft, nontender, nondistended. Positive bowel sounds. Extremities: No clubbing, cyanosis, or edema. Neurologic: Nonfocal. Laboratory Data: Sodium 128, potassium 3.3, chloride 98, CO2 of 25, BUN 5, creatinine 0.65, glucose 103, serum osmolality 261, calcium 8.1, phosphorus 2.2, albumin 2.9. WBC 8.3, H and H 11 and 32.8, p latelets 265, neutrophils 75%. Urine culture, no growth to date. Assessment: A 73-year-old female with; 1.Hypertensive emergency. Blood pressure is improved. Her blood pressure medications bring adjuste d, currently on metoprolol and p.r.n. hydralazine. She has very labile. Blood pressure has dropped. Her systolic blood pressure into the 60s on multiple occasions in the hospital. Therefore, we will not be very aggressive with her blood pressure. 2.Orthostatic hypotension secondary to baroreceptor dysfunction. Patient has been counseled. Vickie nt work with PT. 3.Hyponatremia with hypoosmolality. We will continue with IV fluids and sodium tablets. Appreciate Nephrology input. Sodium level now again back down to 128. 4.New onset atrial fibrillation, back in sinus rhythm. Continue with beta-blockers. Currently, on aspirin and Plavix. Cardiology does not recommend full-dose anticoagulation. Dr. Sams's signed of f the case. 5.Hypomagnesemia. We will replace and monitor. 6.Hypokalemia, replace and monitor. 7.Coronary artery disease [place] artery and [place] heart, status post stent without angina. Continu e aspirin and Plavix, stable. 8.Diastolic congestive heart failure, chronic. Monitor I's and O's. Continue fluid restriction. 9.Carotid artery disease, status post endarterectomy. 10.Status post splenectomy. Continue penicillin for prophylaxis. Patient has had multiple sinus in fections in the past. She would benefit from prophylactic antibiotics. 11.Deep venous thrombosis prophylaxis with Lovenox. Plan: Discontinue once sodium level has improved and cleared by Nephrology. Patient refused home he alth will likely be discharged home. /CHON Voice ID: [id number] Report ID: [id number]
[2019-06-20] MEDS: HYDRALAZINE HCL 20 MG/ML VIAL IV PRN (20:04)
[2019-06-20] MEDS: POTASS/SODIUM PHOSPHATE 1 PKT POWD.PACK PO SCH ×2 (21:42→22:27)
[2019-06-21] MEDS: POTASS/SODIUM PHOSPHATE 1 PKT POWD.PACK PO SCH (00:03)
[2019-06-21] MEDS ORDERED: LABETALOL 20 MG/4ML SYRINGE IV PRN (00:42)
[2019-06-21] MEDS ORDERED: FUROSEMIDE 20 MG/ 2ML VIAL IV ONE (00:44)
[2019-06-21] MEDS ORDERED: LABETALOL 20 MG/4ML SYRINGE IV ONE (01:10)
--- NOTE | 2019-06-21 03:23 | PN ---
Date of Progress Note: 06/20/2019 Subjective: The patient was admitted with acute kidney injury, hyponatremia. Patient's hyponatremia was secondary to hydrochlorothiazide, Objective: Vital Signs: Blood pressure 160/94, pulse of 100, respiratory rate 18. Chest: Clear to auscultation. Heart: Sinus, regular. Abdomen: Soft, nontender. Ext no edema Laboratory Data: H and H 11/36.8. Sodium 128, potassium 3.3, bicarb 25, BUN 7 , creatinine 0.6. Phosphor 2.2, calcium 8.1. Assessment And Plan: 1. Hyponatremia secondary to hydrochlorothiazide and pain medication on the recovery phase we will monitor the patient. 2. Hypertension, controlled optimal. Continue current medication. 3. Hypokalemia. We will supplement. 4. Hypophosphatemia. We will supplement. KAPIL Voice ID: [id number] Report ID: [id number] MTDD
[2019-06-21 06:09] LABS: BUN Blood Urea Nitrogen 7 mg/dL (7-18); Bicarbonate 28 mmol/L (21-32); Glucose Level 116 mg/dL (74-106); Phosphorus 3.1 mg/dL (2.5-4.9); Potassium 3.3 mmol/L (3.5-5.1); Sodium Level 131 mmol/L (136-145)
[2019-06-21 06:10] LABS: BUN Blood Urea Nitrogen 7 mg/dL (7-18); Bicarbonate 28 mmol/L (21-32); Glucose Level 116 mg/dL (74-106); Phosphorus 3.1 mg/dL (2.5-4.9); Potassium 3.2 mmol/L (3.5-5.1); Sodium Level 131 mmol/L (136-145)
[2019-06-21] MEDS ORDERED: POTASSIUM 25 MEQ EFFERV TAB PO ONE (06:21)
[2019-06-21] MEDS: LEVOTHYROXINE SOD 0.1 MG TAB PO SCH (06:38)
[2019-06-21] MEDS ORDERED: POTASSIUM CL SA 10 MEQ TAB PO ONE ×3 (08:30→14:00)
[2019-06-21] MEDS: ASPIRIN 81 MG CHEWABLE TABLET PO SCH (08:47)
[2019-06-21] MEDS: DOCUSATE NA 100 MG CAP PO SCH (08:47)
[2019-06-21] MEDS: PANTOPRAZOLE 40MG TABLET PO SCH (08:48)
[2019-06-21] MEDS: PENICILLIN V K 250 MG TABLET PO SCH (08:48)
[2019-06-21] MEDS: ENOXAPARIN 40 MG/0.4 ML SQ SCH (08:48)
[2019-06-21] MEDS: SODIUM CHLORIDE 1 GM TAB PO SCH ×2 (08:48→13:13)
[2019-06-21] MEDS: ATORVASTATIN 40 MG TAB PO SCH (08:48)
[2019-06-21] MEDS: CLOPIDOGREL 75 MG TABLET PO SCH (08:48)
[2019-06-21] MEDS: METOPROLOL XL 50 MG TAB PO SCH (08:50)
[2019-06-21] MEDS: ENSURE CLEAR 200 ML CAN PO SCH (08:53)
[2019-06-21 11:45] VITALS: O2SAT 92
--- NOTE | 2019-06-21 13:01 | RAD REPORT ---
EXAM DESCRIPTION: RAD - Chest Single View - 06/21/2019 9:10 am CLINICAL HISTORY: hx of CHF Chest pain. COMPARISON: Chest Single View dated 06/17/2019; Abdomen 1 View (KUB) dated 02/17/2019; Chest Pa And Lat (2 Views) dated 02/16/2019; Chest Single View dated 01/21/2019 FINDINGS: Portable technique limits examination quality. Small bilateral pleural effusions are present. The heart is normal in size. Tortuous thoracic aorta w ith aortic atherosclerosis. IMPRESSION: Small bilateral pleural effusions.
[2019-06-21 14:39] VITALS: BP 110/64; TEMP 97.4
--- NOTE | 2019-06-21 18:32 | PN ---
Date of Progress Note: 06/21/2019 Subjective: Patient was admitted with hyponatremia. Her sodium on presentation 122. Patient was st arted on salt tablet. Her hyponatremia was related to hydrochlorothiazide. Physical Examination: Vital Signs: When I saw the patient, blood pressure 153/79, pulse of 92. Patient had good urine out put of 2 L. Chest: Faint rales on the base. Heart: S1, S2. Regular rhythm. Abdomen: Soft, nontender. Extremities: Trace edema. Laboratory Data: Sodium 131, potassium 3.4, bicarb 28, BUN 7, creatinine 0.6, calcium 8.2, phosphoru s 3.1. Current Medications: The patient on include Plavix, penicillin, atorvastatin, labetalol, metoprolol, Lasix, salt tablet 1 g t.i.d. Assessment And Plan: 1.Hyponatremia secondary to hydrochlorothiazide superimposed with pain, recover, resolve. I am giovanni g to continue salt tablet. Add Lasix. 2.Hypertension, controlled, optimal. We will add Lasix. Keep holding hydrochlorothiazide. 3.Hypokalemia. We will supplement. Patient cleared from the renal standpoint for discharge bella lobo to follow up in the office in 2 to 3 weeks with chemistry. KAPIL Voice ID: [id number] Report ID: [id number]
--- NOTE | 2019-06-22 00:02 | DS ---
Date of Discharge: 06/21/2019 Consultants: Dr. Tang with Nephrology, Dr. Sams with Cardiology. Admitting Diagnoses: 1.Hypertensive urgency, labile blood pressure. 2.Hyponatremia, acute with hypo-osmolality. 3.Hypothyroidism. 4.Coronary artery disease, yocha dehe artery, yocha dehe heart, status post stent without angina. 5.Congestive heart failure, diastolic dysfunction, chronic. 6.History of carotid artery disease status post carotid endarterectomy. 7.Status post splenectomy. Discharge Diagnoses: 1.Hypertensive emergency, resolved. 2.Labile blood pressure. 3.Orthostatic hypotension. 4.Hyponatremia with hypoosmolality. 5.New onset atrial fibrillation, now back in sinus rhythm, full-dose anticoagulation not recommended . 6.Hypomagnesemia, replaced. 7.Hypokalemia, corrected. 8.Coronary artery disease, yocha dehe artery, yocha dehe heart, status post stent without angina. 9.Acute on chronic diastolic congestive heart failure, improving. 10.Carotid artery disease status post endarterectomy. 11.Status post splenectomy, started on penicillin for prophylaxis. Hospital Course: Patient is a 73-year-old female with past medical history of hypertension, hypothyr oidism, coronary artery disease status post stent on aspirin and Plavix, congestive heart failure, ca rotid artery disease, status post bilateral CEA, status post splenectomy, comes in with orthostatic h ypotension from GI doctor's office, however, in the ER after a 0.5 L fluid bolus the patient's blood pressure climbed up to the 200 systolic, not requiring IV medications. Patient was admitted for furt her evaluation. She continued to have labile blood pressure. 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 Patient's bl ood pressure medications were held except for metoprolol. She did receive some hydralazine p.r.n. S he was also noted to have severe hyponatremia which was corrected slowly. Nephrology was consulted. She was started on salt tablets. Patient did go into atrial fibrillation due to her multiple electr olyte abnormalities including hypomagnesemia, hypokalemia, and hyponatremia. Patient was seen by Socrates pham. She went back into sinus rhythm. Dr. Sams did not recommend any full-dose anticoagulatio n. She was continued on metoprolol for rate control. Overall, patient did well. She did have some fluid overload due to IV fluids from an attempt to correct her sodium. Fluids were discontinued. Kristen stark was given Lasix and improved. She was able to be weaned off oxygen. Patient was then cleared for discharge and was sent home in a stable condition. Patient again refused home health care. Condition: Stable. Activity: As tolerated. Medications: As per medication reconciliation list. She will be on prophylactic penicillin due to h er splenectomy and history of multiple sinus infections. Followup: Follow up with PCP in 2-3 days. Follow up with senior recruitment consultant, Dr. Tang in 2 weeks. Fo llow up with primary staff weapons officer, Dr. Marc in 2 weeks. Return to ER for worsening condition. Physical Examination: General: Awake, alert, oriented x3, not in any acute distress, elderly female. CV: S1, S2. Regular rate and rhythm. Peripheral pulses present. Respiratory: Moving air well bilaterally. No wheezing or stridor. Gastrointestinal: Abdomen is sof t, nontender, nondistended. Positive bowel sounds. Extremities: No clubbing, cyanosis, or edema. Neurologic: Nonfocal. Total time spent discharging patient was 35 minutes. /CHON Voice ID: [id number] Report ID: [id number]
[2019-06-22] MEDS ORDERED: FUROSEMIDE 20 MG/ 2ML VIAL IV SCH (09:00)
== END 2019-06-21 15:36 | disposition home or self-care (01) | DRG 304 ==
LOC: ER 10:31 → ERHOLD 14:07 → 4TH 15:39 → OBSVTOIN 06-18 14:45
PROVIDERS: ADMIT Family Medicine; ATTEND Family Medicine
DX: I16.1 Hypertensive emergency (principal); I50.33 Acute on chronic diastolic (congestive) heart failure; E87.1 Hypo-osmolality and hyponatremia; N17.9 Acute kidney failure, unspecified; I11.0 Hypertensive heart disease with heart failure; R09.89 Other specified symptoms and signs involving the circulatory and respiratory systems; I95.1 Orthostatic hypotension; I48.91 Unspecified atrial fibrillation; E83.42 Hypomagnesemia; E87.6 Hypokalemia; I25.10 Atherosclerotic heart disease of native coronary artery without angina pectoris; Z95.5 Presence of coronary angioplasty implant and graft; I77.89 Other specified disorders of arteries and arterioles; Z90.81 Acquired absence of spleen
CPT/HCPCS: 36415; 71045; 71275; 74175; 80048; 80053; 80069; 80076; 81003; 81015; 82533; 82550; 82947; 83735; 83930; 83935; 84100; 84132; 84300; 84443; 84484; 84550; 85025; 87086; 87088; 93005; 94760; 96361; 96365; 96375; 99285; G0378; J0360; J1650; J1940; J2405; J3475; J7030; J7040; Q9967

== ENCOUNTER 2019-06-27 17:41 | Emergency (ER) | payer OTHER ==
--- OUTSIDE RECORDS SUMMARY | 2019-06-27 17:46 | XMS REPORT ---
:1945 Author Organization [facility] Address [address] [place] [address] Care Team Providers Name Role Phone Unavailable [...] ENT: WILI SABILLON LOC: ENA U #: [id number] AGE/SX: 73/F ROOM: DUNG RE05/05/19REG DR: Rohith Cruz MD : [birth year] BED: A DIS: STATUS: ADM IN TLOC: SPEC #: [id number] RECD: 05/05/19 STATUS: DIEGO RESienna #: [id number] GUS: 05/05/[address] [facility] [address]: Rohith Cruz MD ENTERED: 05/05/19 SP TYPE: ARTERY, PL OTHR DR: Katie Marc MD, Nioti R MD Pepper, Gregory S MDORDERED: DECAL, SURG PATH LVL 3, SURG PATH LVL 4 CODES: [id number] - PLAQUE, NOS [id number] - ARTERY, NOS [id number] - CAROTID ARTERY ATHEROSCLEROSIS [id number] - CERVIX EXCISIONAL BIOP [id number] - LYMPH NODE, NOS COPIES TO: Katie Marc MD [address] [place] [address] [address] [place] [address] [email or web address] [address] [place] [address] [place] [address] [facility] [address] [place], [place] [id number] [place] [address] [facility] [address] [place], [place] [address] ICD CODES: 440 - PROCEDURES: DECAL (05/06/19- 904) SURG PATH LVL 3 (05/05/19-1613) SURG PATH LVL 4 (05/06/19-132) TISSUES : A. ARTERY, NOS - LT CAROTID PLAQUE B. LYMPH NODE, NOS - LT CERVICAL LYMPH NODE CONTINUED ON NEXT PAGE RUN DATE: 05/07/19 [facility] PAGE 2 RUN TIME: 1005 Specimen Inquiry RUN USER: INTERFACE SPEC #: [id number] PATIENT: WILI SABILLON # [id number] (Continued) ------- CLINICAL HISTORY LEFT INTERNAL CAROTID ARTERY STENOSIS CPT CODES CPT CODE(S): 98267 , 48600 , 91248 , , , , FINAL DIAGNOSIS A. [...] (test code=CA) 9.6 MG/DL 8.4-10.2 BASIC METABOLIC [id number] 04:40:00 Test Item Value Reference Range Comments [...] CALCIUM (test code=CA) MG/DL 8.7-9.7 BASIC METABOLIC [id number] 04:38:00 Test Item Value Reference Range Comments SODIUM (test code=NA) 135 MMOL/L 137-145 POTASSIUM (test code=K) 3.6 MMOL/L 3.5-5.1 CHLORIDE (test code=CL) 93 MMOL/L 98-107 CARBON DIOXIDE (test code=CO2) MMOL/L 22-30 GLUCOSE (test code=GLU) MG/DL 74-106 BLOOD UREA NITROGEN (test code=BUN) MG/DL 7-17 GLOMERULAR FILTRATION RATE (test code=GFR) CREATININE (test code=CREAT) MG/DL 0.52-1.04 CALCIUM (test code=CA) MG/DL 8.7-9.7 BASIC METABOLIC [id number] 04:37:00 Test Item Value Reference Range Comments SODIUM (test code=NA) 135 MMOL/L 137-145 POTASSIUM (test code=K) MMOL/L 3.5-5.1 CHLORIDE (test code=CL) 93 MMOL/L 98-107 CARBON DIOXIDE (test code=CO2) MMOL/L 22-30 GLUCOSE (test code=GLU) MG/DL 74-106 BLOOD UREA NITROGEN (test code=BUN) MG/DL 7-17 GLOMERULAR FILTRATION RATE (test code=GFR) CREATININE (test code=CREAT) MG/DL 0.52-1.04 CALCIUM (test code=CA) MG/DL 8.7-9.7 CBC W/AUTO [id number] 04:18:00 Test Item Value Reference Range Comments [...] code=NRBC#) 0.00 K/mm3 0.0-0.1 - XR CHEST [id number] 09:05:00 Patient Name: WILI SABILLON Unit No: [id number] EXAMS: CPT CODE: [id number] XR CHEST 1V 09134 Site ID: [id number] HISTORY: Postoperative, left ICA [...] t.SDR.AJP6 Orig Print D/T: S: 05/06/2019 (0908) [facility] NAME: WILI SABILLON [address] PHYS: [place] [address] : 1945 AGE: 73 SEX: F LOC: Z.SI04 A PHONE #: [phone] EXAM DATE: 05/06/2019 STATUS: ADM IN FAX #: [phone] RADIOLOGY NO: PAGE 1 Signed ReportBASIC METABOLIC [id number] 06:09:00 Test Item Value Reference Range Comments [...] 0.52-1.04 CALCIUM (test code=CA) 9.4 MG/DL 8.4-10.2 [id number] 06:09:00 Test Item Value Reference Range Comments MAGNESIUM (test code=MAG) 1.5 MG/DL 1.6-2.3 BASIC METABOLIC [id number] 05:59:00 Test Item Value Reference Range Comments SODIUM (test code=NA) 133 MMOL/L 137-145 POTASSIUM (test code=K) 3.5 MMOL/L 3.5-5.1 CHLORIDE (test code=CL) 95 MMOL/L 98-107 CARBON DIOXIDE (test code=CO2) MMOL/L 22-30 GLUCOSE (test code=GLU) MG/DL 74-106 BLOOD UREA NITROGEN (test code=BUN) MG/DL 7-17 GLOMERULAR FILTRATION RATE (test code=GFR) CREATININE (test code=CREAT) MG/DL 0.52-1.04 CALCIUM (test code=CA) MG/DL 8.7-9.7 [id number] 05:59:00 Test Item Value Reference Range Comments MAGNESIUM (test code=MAG) MG/DL 1.6-2.3 CBC W/AUTO [id number] 05:46:00 Test Item Value Reference Range Comments [...] (test code=NRBC#) 0.00 K/mm3 0.0-0.1 BASIC METABOLIC [id number] 13:49:00 Test Item Value Reference Range Comments SODIUM (test code=NA) 136 MMOL/L 137-145 POTASSIUM (test code=K) 2.9 MMOL/L 3.5-5.[address] [facility] SERVICES[facility]ide[facility].V& READBACK ON 05/05/19 AT 1348 BY Andrey [...] 0.52-1.04 CALCIUM (test code=CA) 9.7 MG/DL 8.4-10.2 [id number] 13:49:00 Test Item Value Reference Range Comments MAGNESIUM (test code=MAG) 1.4 MG/DL 1.6-2.3 BASIC METABOLIC [id number] 13:48:00 Test Item Value Reference Range Comments SODIUM (test code=NA) 136 MMOL/L 137-145 POTASSIUM (test code=K) 2.9 MMOL/L 3.5-5.1 CALLED TO [employer].V& READBACK ON 05/05/19 AT 1348 BY Andrey [...] 0.52-1.04 CALCIUM (test code=CA) 9.7 MG/DL 8.4-10.2 [id number] 13:48:00 Test Item Value Reference Range Comments MAGNESIUM (test code=MAG) MG/DL 1.6-2.3 - XR CHEST [id number] 13:35:00 Patient Name: WILI SABILLON Unit No: [id number] EXAMS: CPT CODE: [id number] XR CHEST 1V 19128 Location of dictation: B2 Portable chest one [...] Balderas M.D. CC: Katie Marc MD Technologist: [facility] STUDENT ; Alhaji Cha, RT(R) Transcrpt Date/Tm/Trnsp: 05/05/2019 (7426) [id number] Orig Print D/T: S: 05/05/2019 (6140) [facility] NAME: WILI SABILLON [address] PHYS: [place] [address] : AGE: 73 SEX: F LOC: Z.SI04 A PHONE #: [phone] EXAM DATE: STATUS: ADM IN FAX #: [phone] RADIOLOGY NO: PAGE 1 Signed ReportCBC W/AUTO [id number] 13: 20:00 Test Item Value Reference Range [...] (test code=NRBC#) 0.00 K/mm3 0.0-0.1 ARTERIAL BLOOD [id number] 13:17:00 Test Item Value Reference Range Comments [...] CHECK FIO2 (test code=COHBGFFIO2) 60 % PROTHROMBIN [id number] 13:06:00 Test Item Value Reference Range Comments [...] recurrent systemic embolism. 3.0 - 4.5 PTT [id number] 13:06:00 Test Item Value Reference Range Comments PTT ACTIVATED (test code=APTT) 30.4 SECONDS 22.0-33.0 HIV 12 AB [id number] 13:02:00 Test Item Value Reference Range Comments HIV 1 2 COMBO AG/AB SCREEN (test AB/AG NON REACTIVE NONREACTIVE code=EYL87FWQVQ) CBC W/AUTO [id number] 12:51:00 Test Item Value Reference Range Comments [...] (test code=NRBC#) 0.00 K/mm3 0.0-0.1 BASIC METABOLIC [id number] 12:21:00 Test Item Value Reference Range Comments [...] (test code=CA) 9.9 MG/DL 8.4-10.2 BASIC METABOLIC [id number] 12:20:00 Test Item Value Reference Range Comments [...] CALCIUM (test code=CA) MG/DL 8.7-9.7 BASIC METABOLIC [id number] 12:18:00 Test Item Value Reference Range Comments SODIUM (test code=NA) 133 MMOL/L 137-145 POTASSIUM (test code=K) 3.5 MMOL/L 3.5-5.1 CHLORIDE (test code=CL) 90 MMOL/L 98-107 CARBON DIOXIDE (test code=CO2) MMOL/L 22-30 GLUCOSE (test code=GLU) MG/DL 74-106 BLOOD UREA NITROGEN (test code=BUN) MG/DL 7-17 GLOMERULAR FILTRATION RATE (test code=GFR) CREATININE (test code=CREAT) MG/DL 0.52-1.04 CALCIUM (test code=CA) MG/DL 8.7-9.7 BASIC METABOLIC [id number] 12:17:00 Test Item Value Reference Range Comments SODIUM (test code=NA) MMOL/L 137-145 POTASSIUM (test code=K) MMOL/L 3.5-5.1 CHLORIDE (test code=CL) 90 MMOL/L 98-107 CARBON DIOXIDE (test code=CO2) MMOL/L 22-30 GLUCOSE (test code=GLU) MG/DL 74-106 BLOOD UREA NITROGEN (test code=BUN) MG/DL 7-17 GLOMERULAR FILTRATION RATE (test code=GFR) CREATININE (test code=CREAT) MG/DL 0.52-1.04 CALCIUM (test code=CA) MG/DL 8.7-9.7 - XR CHEST 2 [id number] 11:39:00 Patient Name: WILI SABILLON Unit No: [id number] EXAMS: CPT CODE: [id number] XR CHEST 2 V 98054 LOCATION: T18 EXAM: CHEST 2 VIEWS INDICATION: [...] [id number].SDR.JP19 Orig Print D/T: S: 05/04/2019 (1142) [facility] NAME: WILI SABILLON [id number] [place] [address] PHYS: [place] [address] : 1945 AGE: 73 SEX: F LOC: Z.SRG PHONE #: [phone] EXAM DATE: 05/04/2019 STATUS: PRE [facility] FAX #: [phone] RADIOLOGY NO: PAGE 1 Signed ReportBASIC METABOLIC [id number] 05:09:00 Test Item Value Reference Range Comments [...] 0.52-1.04 CALCIUM (test code=CA) 9.0 MG/DL 8.4-10.2 [id number] 05:09:00 Test Item Value Reference Range Comments MAGNESIUM (test code=MAG) 1.8 MG/DL 1.6-2.3 CBC W/AUTO [id number] 04:46:00 Test Item Value Reference Range Comments [...] (test code=NRBC#) 0.00 K/mm3 0.0-0.1 BASIC METABOLIC [id number] 06:03:00 Test Item Value Reference Range Comments [...] 0.52-1.04 CALCIUM (test code=CA) 8.7 MG/DL 8.4-10.2 [id number] 06:03:00 Test Item Value Reference Range Comments MAGNESIUM (test code=MAG) 2.1 MG/DL 1.6-2.3 CBC W/AUTO [id number] 05:32:00 Test Item Value Reference Range Comments [...] (test code=NRBC#) 0.00 K/mm3 0.0-0.1 ARTERIAL BLOOD [id number] 12:23:00 Test Item Value Reference Range Comments [...] reported result: FT/NC Edited by: MOON on 10/01/18:597102 1222: DELIVERY previously reported as: FT/NC ABG TEMPERATURE (test 37.0 C >37 code=TEMPA) ABG SITE (test code=SITEA) AL ALLENS TEST (test NA CHECK code=ALLENS) FIO2 (test code=COHBGFFIO2) 40 % ARTERY,[id number] 11:58:00 RUN DATE: 10/01/18 [facility] - LAB PAGE 1 RUN TIME: 1158 Specimen Inquiry RUN USER: INTERFACE PATIENT: WILI SABILLON DIANA LOC: NicoleSHERRYOtilio U #: [id number] AGE/SX: 72/F ROOM: [facility] RE09/30/18[facility] DR: Rohith Cruz MD : [birth year] BED: A DIS: STATUS: ADM IN TLOC: SPEC #: [id number] RECD: 09/30/18 STATUS: DIEGO BYNUM #: [id number] GUS: 09/30/[address] [facility] [address]: Rohith Cruz MD ENTERED: 09/30/18 SP TYPE: ARTERY, PL OTHR DR: Katie Marc MD, Nioti R MD Pepper, Gregory S MDORDERED: DECAL, SURG PATH LVL 3, SURG PATH LVL 4 CODES: J21142 - PLAQUE, NOS S09795 - ARTERY, NOS V26490 S01710 - CAROTID ARTERY ATHEROSCLEROSIS [id number] - CERVIX EXCISIONAL BIOP PM3021 - LYMPH NODE, NOS COPIES TO: Katie Marc MD [address] [place] [address] [address] [place] [address] [email or web address] [address] [place] [address] [place] [address] [facility] [address] [place] [address] [place] [address] [facility] [address] [place] [address] ICD CODES: 440 - PROCEDURES: DECAL (10/01/18) SURG PATH LVL 3 (09/30/18) SURG PATH LVL 4 (09/30/18) TISSUES: A. ARTERY, NOS - RT ARTERY PLAQUE B. LYMPH NODE, NOS - RT CERVICAL LYMPH NODE CONTINUED ON NEXT PAGE RUN DATE: 10/01/18 [facility] - LAB PAGE 2 RUN TIME: 1158 Specimen Inquiry RUN USER:INTERFACE SPEC #: [id number] PATIENT: WILI SABILLON #[id number] (Continued) CLINICAL HISTORY RIGHT INTERNAL CAROTID ARTERYSTENOSIS CPT CODES CPT CODE(S): 29772 , 42950 , 07908 , , , , FINAL DIAGNOSIS A. [...] 1158 END OF REPORT - XR CHEST [id number] 07:45:00 Patient Name: WILI SABILLON Unit No: [id number] EXAMS: CPT CODE: [id number] XR CHEST 1V 50928 EXAMINATION: - XR CHEST 1V. LOCATION : [...] tVIKR.[id number] Orig Print D/T: S: 10/01/2018 (0748) [facility] NAME: WILI SABILLON [address] PHYS: [place] [address] : 1945 AGE: 72 SEX: F LOC: Z.SI07 A PHONE #: [phone] EXAM DATE: 10/01/2018 STATUS: ADM IN FAX #: [phone] RADIOLOGY NO: PAGE 1 Signed ReportBASIC METABOLIC [id number] 05:58:00 Test Item Value Reference Range Comments [...] 0.52-1.04 CALCIUM (test code=CA) 8.7 MG/DL 8.4-10.2 [id number] 05:58:00 Test Item Value Reference Range Comments MAGNESIUM (test code=MAG) 1.7 MG/DL 1.6-2.3 CBC W/AUTO [id number] 05:30:00 Test Item Value Reference Range Comments [...] RBC # (test code=NRBC#) 0.00 K/mm3 0.0-0.1 [id number] 22:38:00 Test Item Value Reference Range Comments POTASSIUM (test code=K) 3.3 MMOL/L 3.5-5.1 [id number] 22:38:00 Test Item Value Reference Range Comments MAGNESIUM (test code=MAG) 1.7 MG/DL 1.6-2.3 ARTERIAL BLOOD [id number] 17:57:00 Test Item Value Reference Range Comments [...] FIO2 (test code=COHBGFFIO2) 40 % BASIC METABOLIC [id number] 16:18:00 Test Item Value Reference Range Comments [...] 0.52-1.04 CALCIUM (test code=CA) 8.9 MG/DL 8.4-10.2 [id number] 16:18:00 Test Item Value Reference Range Comments MAGNESIUM (test code=MAG) 1.3 MG/DL 1.6-2.3 CBC W/AUTO [id number] 16:06:00 Test Item Value Reference Range Comments [...] code=NRBC#) 0.00 K/mm3 0.0-0.1 - XR CHEST [id number] 15:29:00 Patient Name: WILI SABILLON Unit No: [id number] EXAMS: CPT CODE: [id number] XR CHEST 1V 98776 EXAM: CHEST ONE VIEW INDICATION: Postop LOCATION: [...] (1529) t.MD16 OrigPrint D /T: S: 09/30/2018 (6942) [facility] NAME: WILI SABILLON [address] PHYS: [place] [address] : 1945 AGE: 72 SEX: F LOC: ZCelioSI07 Stephy PHONE #: [phone] EXAM DATE: 09/30/2018 STATUS: ADM IN FAX #: [phone] RADIOLOGY NO: PAGE 1 Signed ReportHIV 12 AB [id number] 19 :14:00 Test Item Value Reference Range Comments AB HIV 1 2 (test NON REACTIVE NON-REAC NOTE: A NONREACTIVE RESULT code=HZS22CF) INDICATES THAT HIV-1 AND HIV-2ANTIBODIES HAVE NOT BEEN FOUND IN THIS PATIENT SPECIMEN. ANON-REACTIVE RESULT, HOWEVER, DOES NOT PRECLUDE PREVIOUSEXPOSURE OR INFECTION WITH HIV1. AG HIV1 P24 (test NON REACTIVE NONE REAC code=WGE5J18) PROTHROMBIN [id number] 14:22:00 Test Item Value Reference Range Comments [...] recurrent systemic embolism. 3.0 - 4.5 PTT [id number] 14:22:00 Test Item Value Reference Range Comments PTT ACTIVATED (test code=APTT) 29.3 SECONDS 22.0-33.0 BASIC METABOLIC [id number] 14:18:00 Test Item Value Reference Range Comments [...] 9.9 MG/DL 8.4-10.2 - XR CHEST 2 [id number] 14:14:00 Patient Name: WILI SABILLON Unit No: [id number] EXAMS: CPT CODE: [id number] XR CHEST 2 V 84751 EXAM: CHEST 2 VIEWS INDICATION: PRE-OP LOCATION [...] Technologist: Gay Wolfe, RT(R) Transcrpt Date/Tm/Trnsp: 09/29/2018 (8584) [facility]16 Orig Print D/T: S: (3733) [facility] NAME: WILI SABILLON [address] PHYS: [place] [address] : 1945 AGE: 72 SEX: F LOC: [id number] PHONE #: [phone] EXAM DATE: 09/29/2018 STATUS: PRE IN FAX #: [phone] RADIOLOGY NO: PAGE 1 Signed ReportCBC W/AUTO [id number] 13:57:00 Test Item Value Reference Range Comments [...] (test code=NRBC#) 0.00 K/mm3 0.0-0.1 BASIC METABOLIC [id number] 06:04:00 Test Item Value Reference Range Comments [...] HIGH.........130-159 mg/dL HIGH.........160-189 mg/dL VERY HIGH.........>/=190 mg/dL [id number] 06:04:00 Test Item Value Reference Range Comments MAGNESIUM (test code=MAG) 1.9 MG/DL 1.6-2.3 PROTHROMBIN [id number] 06:00:00 Test Item Value Reference Range Comments [...] systemic embolism. 3.0 - 4.5 Comments to Quantitative Developer: WILL BRING TO LABPTT [id number] 06:00:00 Test Item Value Reference Range Comments PTT ACTIVATED (test code=APTT) 29.3 SECONDS 22.0-33.0 Comments to Quantitative Developer: WILL BRING TO LABBASIC METABOLIC [id number] 05:54 :00 Test Item Value Reference Range [...] code=HDL) LIPOPROTEIN LDL (test MG/DL 0-99 code=LDL) [id number] 05:54:00 Test Item Value Reference Range Comments MAGNESIUM (test code=MAG) 1.9 MG/DL 1.6-2.3 CBC W/AUTO [id number] 05:41:00 Test Item Value Reference Range Comments [...]
[2019-06-27 19:42] LABS: Absolute Lymphocytes (CBC) 0.8 K/uL (0.7-4.9); Basophils % 0.5 % (0-1.3); Lymphocytes % 12.1 % (15.3-44.8); MPV 7.2 fL (7.6-11.3); RBC Red Blood Cell Count 3.33 M/uL (3.86-4.86)
--- NOTE | 2019-06-27 19:42 | RAD REPORT ---
EXAM DESCRIPTION: RAD - Chest Single View - 06/27/2019 7:23 pm CLINICAL HISTORY: SOB COMPARISON: Portable June 20 TECHNIQUE: AP portable chest image was obtained 06/27/2019 7:23 pm . FINDINGS: No focal lung parenchymal process. Trace amount of stranding in the lateral right base and right costophrenic angle blunting match the comparison study. Heart and vasculature are normal. No m easurable pleural effusion and no pneumothorax. No acute bony abnormality seen. Aortic tortuosity dil ates the mediastinal silhouette is matches prior imaging. IMPRESSION: No acute cardiopulmonary process. No significant change from comparison.
[2019-06-27 19:43] LABS: Protime INR 1.04
[2019-06-27 19:57] LABS: ALT/SGPT 17 U/L (12-78); AST/SGOT 11 U/L (15-37); Albumin 3.1 g/dL (3.4-5.0); Alkaline Phosphatase 81 U/L (45-117); BUN Blood Urea Nitrogen 9 mg/dL (7-18); Bicarbonate 36 mmol/L (21-32); Bilirubin Direct < 0.1 mg/dL (0-0.2); Bilirubin Total 0.2 mg/dL (0.2-1.0); Glucose Level 95 mg/dL (74-106); Magnesium 1.5 mg/dL (1.8-2.4); NT PRO-BNP 2130 pg/mL (<125); Potassium 3.7 mmol/L (3.5-5.1); Sodium Level 132 mmol/L (136-145); Troponin (Emerg Dept Use Only) 0.04 ng/mL (0.0-0.045)
[2019-06-27 20:02] LABS: Blood Morphology Comment NOT SEEN (NOT SEEN); Platelet Estimate ADEQ; Urine White Blood Cell Casts OK
[2019-06-27] MEDS ORDERED: HYDRALAZINE HCL 20 MG/ML VIAL ONE (20:03)
[2019-06-27] MEDS ORDERED: Magnesium Sulfate 2gm IVPB 2 G/50 ML BAG IV ONE (20:54)
--- NOTE | 2019-06-27 22:05 | ER ---
Nurse's Notes [facility] Name: Racheal Dia Age: 73 yrs Sex: Female : 1945 Arrival Date: 06/27/2019 Time: 17:44 Bed 16 Private MD: Diagnosis: Essential (primary) hypertension Presentation: 06/26 18:17 Chief complaint: Patient states: Heavy legs and shortness of breath on exertion since ss yesterday. Pt was recently admitted to the hospital for same symptoms. Coronavirus screen: The patient has NOT traveled to a country currently being monitored by the [facility] within the last 14 days. Ebola Screen: Patient denies exposure to infectious person. Patient denies travel to an Ebola-affected area in the 21 days before illness onset. Initial Sepsis Screen: Does the patient meet any 2 criteria? No. Patient's initial sepsis screen is negative. Does the patient have a suspected source of infection? No. Patient's initial sepsis screen is negative. Risk Assessment: Do you want to hurt yourself or someone else? Patient reports no desire to harm self or others. 18:17 Method Of Arrival: Ambulatory ss 18:17 Acuity: AISHA 2 ss Triage Assessment: 19:00 General: Appears in no apparent distress. Behavior is calm, cooperative, appropriate vc for age. Respiratory: Reports shortness of breath on exertion Onset: The symptoms/episode began/occurred gradually, the patient has moderate shortness of breath. Historical: - Allergies: 18:19 No Known Allergies; ss - PMHx: 18:19 CHF; Hypertension; Hypothyroidism; ss - PSHx: 18:19 Carotid Artery; ss - Immunization history:: Adult Immunizations up to date. - Social history:: Smoking status: Patient/guardian denies using tobacco, but has a distant history of tobacco abuse. Screenin:06 Abuse screen: Denies threats or abuse. Nutritional screening: No deficits noted. vc Tuberculosis screening: No symptoms or risk factors identified. Fall Risk None identified. Assessment: 19:00 Pain: Denies pain. Cardiovascular: Rhythm is regular. Respiratory: Airway is patent vc Breath sounds are clear. 19:00 Respiratory: Respiratory effort is even, unlabored, Respiratory pattern is regular, vc symmetrical. 19:00 General: Appears in no apparent distress. comfortable, Behavior is calm, cooperative, vc appropriate for age. GI: No signs and/or symptoms were reported involving the gastrointestinal system. : No signs and/or symptoms were reported regarding the genitourinary system. EENT: No signs and/or symptoms were reported regarding the EENT system. Derm: Skin is intact, is healthy with good turgor. 20:03 Reassessment: Patient and/or family updated on plan of care and expected duration. Pain vc level reassessed. Patient is alert, oriented x 3, equal unlabored respirations, skin warm/dry/pink. 21:00 Reassessment: Patient and/or family updated on plan of care and expected duration. Pain vc level reassessed. Patient is alert, oriented x 3, equal unlabored respirations, skin warm/dry/pink. Patient denies pain at this time. 22:00 Reassessment: Patient and/or family updated on plan of care and expected duration. Pain vc level reassessed. Patient is alert, oriented x 3, equal unlabored respirations, skin warm/dry/pink. Patient denies pain at this time. Patient states symptoms have improved. Vital Signs: 18:16 BP 211 / 126; Pulse 83; Resp 16; Temp 97.9(TE); Pulse Ox 99% on R/A; Weight 63.96 kg; ss Height 5 ft. 1 in. (154.94 cm); Pain 0/10; 18:20 BP 208 / 128; ss 19:15 BP 204 / 123; Pulse 78; Resp 18; Pulse Ox 95% on R/A; vc 20:00 BP 198 / 114; Pulse 81; Resp 17; Pulse Ox 98% on R/A; vc 21:00 BP 159 / 93; Pulse 89; Resp 16; Pulse Ox 96% on R/A; vc 21:30 BP 160 / 98; Pulse 91; Resp 17; Pulse Ox 97% on R/A; vc 18:16 Body Mass Index 26.64 (63.96 kg, 154.94 cm) ED Course: 17:44 Patient arrived in ED. mr 18:19 Triage completed. ss 18:19 Arm band placed on right wrist. ss 18:36 Titi Norman NP is PHCP. pm1 18:36 Jaret Swift MD is Attending Physician. pm1 18:50 Nery Alaniz RN is Primary Nurse. vc 19:15 Inserted saline lock: 22 gauge in left antecubital area, using aseptic technique. vc 19:19 XRAY Chest (1 view) In Process Unspecified. EDMS 22:35 No provider procedures requiring assistance completed. IV discontinued, intact, vc bleeding controlled, No redness/swelling at site. Pressure dressing applied. Administered Medications: 20:31 Drug: hydrALAZINE 10 mg Route: IV; Rate: calculated rate; Site: left antecubital; vc 20:35 Follow up: IV Status: Completed infusion; IV Intake: 10ml vc 22:36 Follow up: IV Intake: 10ml vc 21:22 Drug: Magnesium Sulfate 1 grams Route: IVPB; Infused Over: 1 hrs; Site: left vc antecubital; 22:36 Follow up: IV Status: Completed infusion; IV Intake: 50ml vc Intake: 20:35 IV: 10ml; Total: 10ml. vc 22:36 IV: 50ml; Total: 60ml. vc 22:36 IV: 10ml; Total: 70ml. vc Outcome: 22:02 Discharge ordered by MD. pm1 22:35 Discharged to home via wheelchair, with family. vc 22:35 Condition: improved 22:35 Discharge instructions given to patient, family, Instructed on discharge instructions, follow up and referral plans. Demonstrated understanding of instructions, follow-up care. 23:03 Patient left the ED. vc Signatures: Dispatcher [employer] Stephanie Montanez Shelby, RN RN Titi Jonas, VAIBHAV PROJECT DEVELOPMENT LEADER pm1 Nery Alaniz RN RN vc
--- NOTE | 2019-06-27 22:06 | EDPHYS ---
Physician Documentation [facility] Name: Racheal Dia Age: 73 yrs Sex: Female : 1945 Arrival Date: 06/27/2019 Time: 17:44 Bed 16 Private MD: ED Physician Jaret Swift HPI: 06/26 19:05 This 73 yrs old Black Female presents to ER via Ambulatory with complaints of Bialteral pm1 Leg Pain, Breathing Difficulty. 19:05 The patient presents with pain, to both legs and shortness of breath with exertion. pm1 Onset: The symptoms/episode began/occurred 3 day(s) ago. Associated signs and symptoms: Pertinent negatives calf tenderness, fever, numbness, swelling, tingling, chest pain. Treatment prior to arrival includes: no previous treatment. The patient has experienced similar episodes in the past, a few times, today's symptoms are similar. Historical: - Allergies: 18:19 No Known Allergies; ss - PMHx: 18:19 CHF; Hypertension; Hypothyroidism; ss - PSHx: 18:19 Carotid Artery; ss - Immunization history:: Adult Immunizations up to date. - Social history:: Smoking status: Patient/guardian denies using tobacco, but has a distant history of tobacco abuse. ROS: 19:05 Constitutional: Negative for fever, chills, and weight loss, Neck: Negative for injury, pm1 pain, and swelling, Cardiovascular: Negative for chest pain, palpitations, and edema. 19:05 Abdomen/GI: Negative for abdominal pain, nausea, vomiting, diarrhea, and constipation, Back: Negative for injury and pain. 19:05 Skin: Negative for injury, rash, and discoloration, Neuro: Negative for headache, weakness, numbness, tingling, and seizure. 19:05 Respiratory: Positive for shortness of breath, on exertion. Negative for cough. 19:05 MS/extremity: Positive for pain, of the right leg and left leg. Exam: 19:05 Constitutional: This is a well developed, well nourished patient who is awake, alert, pm1 and in no acute distress. Head/Face: Normocephalic, atraumatic. Neck: Trachea midline, no thyromegaly or masses palpated, and no cervical lymphadenopathy. Supple, full range of motion without nuchal rigidity, or vertebral point tenderness. No Meningismus. Chest/axilla: Normal chest wall appearance and motion. Nontender with no deformity. No lesions are appreciated. Cardiovascular: Regular rate and rhythm with a normal S1 and S2. No gallops, murmurs, or rubs. No pulse deficits. Respiratory: Lungs have equal breath sounds bilaterally, clear to auscultation and percussion. No rales, rhonchi or wheezes noted. No increased work of breathing, no retractions or nasal flaring. Abdomen/GI: Soft, non-tender, with normal bowel sounds. No distension or tympany. No guarding or rebound. No evidence of tenderness throughout. Back: No spinal tenderness. No costovertebral tenderness. Full range of motion. Skin: Warm, dry with normal turgor. Normal color with no rashes, no lesions, and no evidence of cellulitis. MS/ Extremity: Pulses equal, no cyanosis. Neurovascular intact. Full, normal range of motion. 19:05 Cardiovascular: Edema: is not appreciated. Vital Signs: 18:16 BP 211 / 126; Pulse 83; Resp 16; Temp 97.9(TE); Pulse Ox 99% on R/A; Weight 63.96 kg; ss Height 5 ft. 1 in. (154.94 cm); Pain 0/10; 18:20 BP 208 / 128; ss 19:15 BP 204 / 123; Pulse 78; Resp 18; Pulse Ox 95% on R/A; vc 20:00 BP 198 / 114; Pulse 81; Resp 17; Pulse Ox 98% on R/A; vc 21:00 BP 159 / 93; Pulse 89; Resp 16; Pulse Ox 96% on R/A; vc 21:30 BP 160 / 98; Pulse 91; Resp 17; Pulse Ox 97% on R/A; vc 18:16 Body Mass Index 26.64 (63.96 kg, 154.94 cm) MDM: 18:37 Patient medically screened. jaret 22:02 Data reviewed: vital signs. Data interpreted: Pulse oximetry: on room air is 99 %. pm1 Interpretation: normal. Counseling: I had a detailed discussion with the patient and/or guardian regarding: the historical points, exam findings, and any diagnostic results supporting the discharge/admit diagnosis, lab results, radiology results, the need for outpatient follow up, to return to the emergency department if symptoms worsen or persist or if there are any questions or concerns that arise at home. 06/26 18:52 Order name: Basic Metabolic Panel; Complete Time: 20:11 pm1 06/26 18:52 Order name: CBC with Diff; Complete Time: 20:04 pm1 06/26 18:52 Order name: LFT's; Complete Time: 20:11 pm1 06/26 18:52 Order name: Magnesium; Complete Time: 20:11 pm06/26 18:52 Order name: NT PRO-BNP; Complete Time: 20:11 pm06/26 18:52 Order name: PT-INR; Complete Time: 20:04 pm1 06/26 18:52 Order name: Troponin (emerg Dept Use Only); Complete Time: 20:11 pm1 06/26 18:52 Order name: XRAY Chest (1 view); Complete Time: 19:45 pm1 06/26 18:52 Order name: EKG; Complete Time: 18:53 pm1 06/26 18:52 Order name: Cardiac monitoring; Complete Time: 19:43 pm06/26 18:52 Order name: EKG - Nurse/Tech; Complete Time: 19:43 pm1 06/26 20:02 Order name: CBC Smear Scan; Complete Time: 20:04 EDMS 06/26 18:52 Order name: IV Saline Lock; Complete Time: 19:20 pm06/26 18:52 Order name: Labs collected and sent; Complete Time: 19:20 pm1 06/26 18:52 Order name: O2 Per Protocol; Complete Time: 19:20 pm06/26 18:52 Order name: O2 Sat Monitoring; Complete Time: 19:20 pm1 Administered Medications: 20:31 Drug: hydrALAZINE 10 mg Route: IV; Rate: calculated rate; Site: left antecubital; vc 20:35 Follow up: IV Status: Completed infusion; IV Intake: 10ml vc 22:36 Follow up: IV Intake: 10ml vc 21:22 Drug: Magnesium Sulfate 1 grams Route: IVPB; Infused Over: 1 hrs; Site: left vc antecubital; 22:36 Follow up: IV Status: Completed infusion; IV Intake: 50ml vc Disposition: 06/27/19 22:02 Discharged to Home. Impression: Essential (primary) hypertension. - Condition is Stable. - Discharge Instructions: Hypertension, How to Take Your Blood Pressure, [id number], DASH Eating Plan, Managing Your Hypertension. - Medication Reconciliation Form, Thank You Letter, Antibiotic Education, Prescription Opioid Use form. - Follow up: Emergency Department; When: As needed; Reason: Worsening of condition. Follow up: Private Physician; When: 2 - 3 days; Reason: Recheck today's complaints, Continuance of care, Re-evaluation by your physician. - Problem is new. - Symptoms have improved. Addendum: 06/29/2019 09:26 Co-signature as Attending Physician, Jaret Swift MD I agree with the assessment and c huggins plan of care. Signatures: Dispatcher [employer] EDNM Jaret Swift MD MD cha Smirch, Shelby RN RN ss Titi Norman NP DRAW BENCH OPERATOR pm1 Nery Alaniz RN RN vc Corrections: (The following items were deleted from the chart) 06/26 23:03 22:02 06/27/2019 22:02 Discharged to Home. Impression: Essential (primary) vc hypertension. Condition is Stable. Forms are Medication Reconciliation Form, Thank You Letter, Antibiotic Education, Prescription Opioid Use. Follow up: Emergency Department; When: As needed; Reason: Worsening of condition. Follow up: Private Physician; When: 2 - 3 days; Reason: Recheck today's complaints, Continuance of care, Re-evaluation by your physician. Problem is new. Symptoms have improved. pm1
[2019-06-27 23:21] VITALS: TEMP 97.9
[2019-06-27 23:29] VITALS: BP 160/98; O2SAT 97
--- NOTE | 2019-06-28 09:13 | EKG ---
Test Date: 2019-06-27 Test Time: 19:30:13 [place] Supervisor: CAYETANO MEASUREMENT RESULTS: Intervals: Rate: 83 LA: 152 QRSD: 76 QT: 362 QTc: 425 [place]: P: 76 LA: 152 QRS: 47 T: 69 INTERPRETIVE STATEMENTS: Normal sinus rhythm Cannot rule out Anterior infarct, age undetermined Abnormal ECG Compared to ECG 06/18/2019 05:58:31 Myocardial infarct finding now present Atrial fibrillation no longer present ST (T wave) deviation no longer present Electronically Signed On 06-28-19 09:13:15 CDT by Alejandro Woodall
== END 2019-06-27 23:03 | disposition home or self-care (01) ==
LOC: ER 17:41
DX: I10 Essential (primary) hypertension (principal)
CPT/HCPCS: 96365; 93005; 85025; 80048; 36415; 83735; 85610; 80076; 84484; 83880; 71045; 96375; 99284; J0360; J3475

== ENCOUNTER 2020-09-27 15:41 | Inpatient (IN) | payer OTHER ==
--- OUTSIDE RECORDS SUMMARY | 2020-09-27 15:50 | XMS REPORT | Continuity of Care Document ---
:1945 Author Organization [facility] t Address [address] [place] [address] Care Team Providers Name Role Phone Unavailable Unavailable Unavailable Payers Payer Name Policy Type Policy Number Effective Date Expiration Date S ource Problems This patient has no known problems. Allergies, Adverse Reactions, Alerts Allergy Allergy Status Severity Reaction(s) Onset Inactive Treating Comm ents Source Name Type Date Date Clinician No Known DA Active U 2019-0 [facility]: [address] No Known DA Active U [facility] 09-29 [facility] 00:00: [address] No Known DA Active U 2008-0 [facility] Contrast 06-12 [place] [facility] 00:00: [address] No Known DA Active U 2008-0 [facility] Drug 06-12 [place] [facility] 00:00: [address] No Known DA Active U 2008-0 [facility] Food - [place] [facility] 00:00: [address] No Known DA Active U 2008-0 [facility] Other 06-12 [place] [facility] 00:00: [address] Medications Ordered Filled Start Stop Current Ordering Indication Dosage Frequency Signature Comments Components Source Medication Medication Date Date Medication? Clinician (SIG) Name Name Losartan Losartan Yes Jeremi [address] Potassium-H Potassium-H [facility] Polyethylen Polyethylen Yes Jeremi not [facility] Glycol e Glycol Alaniz defined [facility]ics MiraLax MiraLax Yes Jeremi not [facility] Alaniz defined [facility] Atorvastati Atorvastati Yes Jeremi [address] [facility] n Calcium n Calcium Alaniz [facility]ics Aspirin 81 Aspirin 81 Yes Jeremi [address] [facility] Alaniz [facility] Pantoprazol Pantoprazol Yes Jeremi [address] [facility] e Sodium e Sodium Alaniz [facility] Sodium Sodium Yes Jeremi not [facility] Chloride Chloride Alaniz defined [facility] - [facility] Potassium Potassium Yes Jeremi TAKE [address] Chloride Chloride Alaniz TABLET BY L ukes - Li ER Li ER MOUTH ONCE Mem oria DAILY l [facility] ent Clinics Metoprolol Metoprolol Yes Jeremi TAKE [address] Tartrate Tartrate Alaniz TABLET BY L ukes - MOUTH ONCE Memoria DAILY WITH l FOOD FOR [facility] ent Clinics Levothyroxi Levothyroxi Yes Jeremi [address] [facility] ne Sodium ne Sodium Alaniz in the Tresa s - morning on Memoria an empty l stomach [facility]ics Metoprolol Metoprolol Yes Jeremi [address] Tartrate Tartrate Alaniz with food L es - Memoria l [facility] Clinics Clopidogrel Clopidogrel Yes Jeremi [address] [facility] [address] Bisulfate Bisulfate Alaniz Lu s - [facility]oria l [facility] ent Clinics Docusate Docusate Yes Jeremi [address] Sodium Sodium Alaniz as needed [facility]ics Potassium Potassium Yes Jeremi [address] [facility] Chloride Chloride Alaniz with food L es - Memoria l [facility]ics penicillin penicillin Yes Jeremi not [facility] Alaniz defined [facility] Procedures This patient has no known procedures. Encounters Start End Encounter Admission Attending Care Care Encounter Source Date/Time Date/Time Type Type Clinicians Facility Department ID 2020-09-26 2020-09-26 Outpatient [facility] [id number] [facility] 2020-09-26 2020-09-26 Outpatient [facility] [id number] [facility] 2020-09-19 2020-09-19 Outpatient [facility] [id number] [facility] 2020-04-05 2020-04-05 Outpatient [facility] [id number] [facility] 2020-03-08 2020-03-08 Outpatient [facility] [id number] [facility] 2020-03-08 2020-03-08 Outpatient [facility] [id number] [facility] 2019-12-03 2019-12-03 [facility] [id number] [address] 09:15:00 09:15:00 [facility] [place] [employer] [facility] Medicine l Medicine Outpati ent Clinics 2019-11-19 2019-11-19 [facility] [id number] 15:09:00 15:09:00 t [place] [employer] [facility] Medicine l Medicine Outpati ent Clinics 2019-09-03 2019-09-03 [facility] [id number] 11:00:00 11:00:00 t [employer] [employer] [facility] - [facility] Medicine l Medicine Outpati ent Clinics 2019-09-03 2019-09-03 [facility] [id number] 10:45:00 10:45:00 t [place] [employer] [facility] - [facility] Medicine l Medicine Outpati ent Clinics 2019-07-23 2019-07-23 [facility] [id number] 09:24:00 09:24:00 t [place] [employer] [facility] Medicine l Medicine Outpati ent Clinics 2019-07-11 2019-07-11 [facility] [id number] 13:05:00 13:05:00 t [place] [employer] [facility] Medicine l Medicine Outpati ent Clinics 2019-06-30 2019-06-30 Outpatient Joon Ortega [id number] 14:15:00 14:15:00 t [employer] [facility] Results Test Description Test Time Test Comments Results Result Sourc e Comments ARTERY,PLAQUE 2019-05-07 10:05:00 ----RUN DATE: 05/07/19 [facility] PAGE 1 RUN TIME: 1005 Specimen Inquiry RUN USER: INTERFACE ----PATIENT: WILI SABILLON LOC: ENA U #: [id number] AGE/SX: 73/F ROOM: [facility] RE05/05/19[facility] DR: Rohith Cruz MD : 47 BED: A DIS: STATUS: ADM IN TLOC: ---- SPEC #: [id number] RECD: 05/05/19 STATUS: DIEGO BYNUM #: [id number] GUS: 05/05/[address]: Rohith Cruz MD ENTERED: 05/05/19 SP TYPE: ARTERY, PL OTHR DR: Katie Marc MD, Nioti R MD Pepper, Gregory S MDORDERED: DECAL, SURG PATH LVL 3, SURG PATH LVL 4 CODES: [id number] - PLAQUE, NOS [id number] - ARTERY, NOS [id number] - CAROTID ARTERY ATHEROSCLEROSIS [id number] - CERVIX EXCISIONAL BIOP [id number] - LYMPH NODE, NOS COPIES TO: Katie Marc MD [address] [place] [address] [address] [place] [address] [email or web address] [address] [place] [address] [place] [address] [facility] [address] [place] [address] [place] [address] [facility] [address] [place] [address] ICD CODES: 440 - PROCEDURES: DECAL (05/06/19-904) SURG PATH LVL 3 (05/05/19-1612) SURG PATH LVL 4 (05/06/19-1325) TISSUES: A. ARTERY, NOS - LT CAROTID PLAQUE B. LYMPH NODE, NOS - LT CERVICAL LYMPH NODE CONTINUED ON NEXT PAGE ----RUN DATE: 05/07/19 [place] - LAB PAGE 2 RUN TIME: 1005 Specimen Inquiry RUN USER: INTERFACE ----SPEC #: [id number] PATIENT: WILI SABILLON #[id number] (Continued) CLINICAL HISTORY LEFT INTERNAL CAROTID ARTERY STENOSIS CPT CODES CPT CODE(S): 50070 , 28142 , 82868 , , , , FINAL DIAGNOSIS A. [...] paracortical reactive changes. No atypical features. /cm ------- Signed David Maier 05/07/19 1005 ---- END OF REPORT BASIC METABOLIC PANEL 2019-05-07 04:51:00 Test Item Value Reference Range Interpretation Comme nts SODIUM (test code = NA) 135 MMOL/L 137-145 L POTASSIUM (test code = K) 3.6 MMOL/L 3.5-5.1 N CHLORIDE (test code = CL) 93 MMOL/L 98-107 L CARBON DIOXIDE (test code = CO2) 33 MMOL/L 22-30 H GLUCOSE (test code = GLU) 93 MG/DL 74-106 BLOOD UREA NITROGEN (test code = 11 MG/DL 7-17 N BUN) GLOMERULAR FILTRATION RATE (test > 60 Reporting units: ml/min/1.73 code = GFR) m2 (Modified M DRD Formula)Referen ce Range: > or = 60 ml/min/1.7 3 m2 CREATININE (test code = CREAT) 0.60 MG/DL 0.52-1.04 N CALCIUM (test code = CA) 9.6 MG/DL 8.4-10.2 N BASIC METABOLIC [id number] 04:40:00 Test Item Value Reference Range Interpretation Comments SODIUM (test code = 135 MMOL/L 137-145 L NA) POTASSIUM (test code = 3.6 MMOL/L 3.5-5.1 N K) CHLORIDE (test code = 93 MMOL/L 98-107 L CL) CARBON DIOXIDE (test 33 MMOL/L 22-30 H code = CO2) GLUCOSE (test code = MG/DL 74-106 GLU) BLOOD UREA NITROGEN MG/DL 7-17 (test code = BUN) GLOMERULAR FILTRATION > 60 Report ing units: RATE (test code = GFR) ml/mi n/1.73 m2 (Modified MDRD Formula)Referen ce Range: > or = 6 0 ml/min/1.73 m2 CREATININE (test code 0.60 MG/DL 0.52-1.04 N = CREAT) CALCIUM (test code = MG/DL 8.7-9.7 CA) BASIC METABOLIC [id number] 04:38:00 Test Item Value Reference Range Interpretation Comments SODIUM (test code = NA) 135 MMOL/L 137-145 L POTASSIUM (test code = K) 3.6 MMOL/L 3.5-5.1 N CHLORIDE (test code = CL) 93 MMOL/L 98-107 L CARBON DIOXIDE (test code = CO2) MMOL/L 22-30 GLUCOSE (test code = GLU) MG/DL 74-106 BLOOD UREA NITROGEN (test code = MG/DL 7-17 BUN) GLOMERULAR FILTRATION RATE (test code = GFR) CREATININE (test code = CREAT) MG/DL 0.52-1.04 CALCIUM (test code = CA) MG/DL 8.7-9.7 BASIC METABOLIC [id number] 04:37:00 Test Item Value Reference Range Interpretation Comments SODIUM (test code = NA) 135 MMOL/L 137-145 L POTASSIUM (test code = K) MMOL/L 3.5-5.1 CHLORIDE (test code = CL) 93 MMOL/L 98-107 L CARBON DIOXIDE (test code = CO2) MMOL/L 22-30 GLUCOSE (test code = GLU) MG/DL 74-106 BLOOD UREA NITROGEN (test code = MG/DL 7-17 BUN) GLOMERULAR FILTRATION RATE (test code = GFR) CREATININE (test code = CREAT) MG/DL 0.52-1.04 CALCIUM (test code = CA) MG/DL 8.7-9.7 CBC W/AUTO [id number] 04:18:00 Test Item Value Reference Range Interpretation Comments WHITE BLOOD CELL (test code = 11.8 K/MM3 3.8-9.8 H WBC) RED BLOOD CELL (test code = 3.36 M/MM3 3.58-4.97 L RBC) HEMOGLOBIN (test code = HGB) 11.0 G/DL 11.2-14.9 L HEMATOCRIT (test code = HCT) 32.2 % 33.2-43.5 L MEAN CELL VOLUME (test code = 96 fL 80.7-99.1 N MCV) MEAN CELL HGB (test code = MCH) 32.7 pg 27.0-34.1 N MEAN CELL HGB CONCETRATION 34.2 % 32.2-35.7 N (test code = MCHC) RED CELL DISTRIBUTION WIDTH 15.6 % 12.1-15.2 H (test code = RDW) PLATELET COUNT (test code = 276 K/MM3 129-368 N PLT) MEAN PLATELET VOLUME (test code 9.3 fl 7.4-10.4 N = MPV) NEUTROPHIL % (test code = NT%) 73.7 % 43-75 N IMMATURE GRANULOCYTE % (test 0.4 % 0.0-2.0 N code = IG%) LYMPHOCYTE % (test code = LY%) 13.3 % 14-44 L MONOCYTE % (test code = MO%) 12.3 % 4-13 N EOSINOPHIL % (test code = EO%) 0.2 % 0-6 N BASOPHIL % (test code = BA%) 0.1 % 0-2 N NUCLEATED RBC % (test code = 0.0 % 0-1.0 N NRBC%) NEUTROPHIL # (test code = NT#) 8.72 K/mm3 2.0-7.6 H IMMATURE GRANULOCYTE # (test 0.05 x10 3/uL 0-0.03 H code = IG#) LYMPHOCYTE # (test code = LY#) 1.57 K/mm3 1.0-3.8 N MONOCYTE # (test code = MO#) 1.45 K/mm3 0.1-0.8 H EOSINOPHIL # (test code = EO#) 0.02 K/mm3 0.0-0.2 N BASOPHIL # (test code = BA#) 0.01 K/mm3 0.0-0.2 N NUCLEATED RBC # (test code = 0.00 K/mm3 0.0-0.1 N NRBC#) - XR CHEST [id number] 09:05:00 Patient Name: WILI SABILLON Unit No: [id number] EXAMS: CPT CODE: [id number] XR CHEST 1V 49567 Site ID: [id number] HISTORY: Postoperative, left ICA [...] otherwise the lungs are clear at 0905 Reported and signed by: Corbin Holliday MD CC: Katie Marc MD Technologist: Lety Vazquez RT(R) Transcrpt Date/Tm/Trnsp: 05/06/2019 (904) [email or web address] Orig Print D/T: S: 05/06/2019 (907) [facility] NAME: WILI SABILLON [address] PHYS: [place] [address] : 1945 AGE: 73 SEX: F LOC: Z.SI04 A PHONE #: [phone] EXAM DATE: 05/06/2019 STATUS: ADM IN FAX #: [phone] RADIOLOGY NO: PAGE 1 Signed ReportBASIC METABOLIC [id number] 06:09:00 Test Item Value Reference Range Interpretation Comments SODIUM (test code = 133 MMOL/L 137-145 L NA) POTASSIUM (test code = 3.5 MMOL/L 3.5-5.1 N K) CHLORIDE (test code = 95 MMOL/L 98-107 L CL) CARBON DIOXIDE (test 26 MMOL/L 22-30 N code = CO2) ANION GAP (test code = 16 MMOL/L 14-24 N GAP) GLUCOSE (test code = 139 MG/DL 74-106 H GLU) BLOOD UREA NITROGEN 9 MG/DL 7-17 N (test code = BUN) GLOMERULAR FILTRATION > 60 Report ing units: RATE (test code = GFR) ml/mi n/1.73 m2 (Modified MDRD Formula)Referen ce Range: > or = 6 0 ml/min/1.73 m2 CREATININE (test code 0.60 MG/DL 0.52-1.04 N = CREAT) CALCIUM (test code = 9.4 MG/DL 8.4-10.2 N CA) [id number] 06:09:00 Test Item Value Reference Range Interpretation Comments MAGNESIUM (test code = MAG) 1.5 MG/DL 1.6-2.3 L BASIC METABOLIC [id number] 05:59:00 Test Item Value Reference Range Interpretation Comments SODIUM (test code = NA) 133 MMOL/L 137-145 L POTASSIUM (test code = K) 3.5 MMOL/L 3.5-5.1 N CHLORIDE (test code = CL) 95 MMOL/L 98-107 L CARBON DIOXIDE (test code = CO2) MMOL/L 22-30 GLUCOSE (test code = GLU) MG/DL 74-106 BLOOD UREA NITROGEN (test code = MG/DL 7-17 BUN) GLOMERULAR FILTRATION RATE (test code = GFR) CREATININE (test code = CREAT) MG/DL 0.52-1.04 CALCIUM (test code = CA) MG/DL 8.7-9.7 [id number] 05:59:00 Test Item Value Reference Range Interpretation Comments MAGNESIUM (test code = MAG) MG/DL 1.6-2.3 CBC W/AUTO [id number] 05:46:00 Test Item Value Reference Range Interpretation Comments WHITE BLOOD CELL (test code = 13.4 K/MM3 3.8-9.8 H WBC) RED BLOOD CELL (test code = 3.32 M/MM3 3.58-4.97 L RBC) HEMOGLOBIN (test code = HGB) 10.7 G/DL 11.2-14.9 L HEMATOCRIT (test code = HCT) 32.3 % 33.2-43.5 L MEAN CELL VOLUME (test code = 97 fL 80.7-99.1 N MCV) MEAN CELL HGB (test code = MCH) 32.2 pg 27.0-34.1 N MEAN CELL HGB CONCETRATION 33.1 % 32.2-35.7 N (test code = MCHC) RED CELL DISTRIBUTION WIDTH 14.8 % 12.1-15.2 N (test code = RDW) PLATELET COUNT (test code = 269 K/MM3 129-368 N PLT) MEAN PLATELET VOLUME (test code 9.0 fl 7.4-10.4 N = MPV) NEUTROPHIL % (test code = NT%) 85.5 % 43-75 H IMMATURE GRANULOCYTE % (test 0.4 % 0.0-2.0 N code = IG%) LYMPHOCYTE % (test code = LY%) 6.6 % 14-44 L MONOCYTE % (test code = MO%) 7.4 % 4-13 N EOSINOPHIL % (test code = EO%) 0.0 % 0-6 N BASOPHIL % (test code = BA%) 0.1 % 0-2 N NUCLEATED RBC % (test code = 0.0 % 0-1.0 N NRBC%) NEUTROPHIL # (test code = NT#) 11.48 K/mm3 2.0-7.6 H IMMATURE GRANULOCYTE # (test 0.05 x10 3/uL 0-0.03 H code = IG#) LYMPHOCYTE # (test code = LY#) 0.89 K/mm3 1.0-3.8 L MONOCYTE # (test code = MO#) 0.99 K/mm3 0.1-0.8 H EOSINOPHIL # (test code = EO#) 0.00 K/mm3 0.0-0.2 N BASOPHIL # (test code = BA#) 0.01 K/mm3 0.0-0.2 N NUCLEATED RBC # (test code = 0.00 K/mm3 0.0-0.1 N NRBC#) BASIC METABOLIC [id number] 13:49:00 Test Item Value Reference Range Interpretation Comments SODIUM (test code = 136 MMOL/L 137-145 L NA) POTASSIUM (test code = 2.9 MMOL/L 3.5-5.1 L SPARROW D TO RHODORA.V& K) READBACK ON AT 1348 BY Andrey De Guzman CHLORIDE (test code = 98 MMOL/L 98-107 N CL) CARBON DIOXIDE (test 30 MMOL/L 22-30 N code = CO2) ANION GAP (test code = 11 MMOL/L 14-24 L GAP) GLUCOSE (test code = 120 MG/DL 74-106 H GLU) BLOOD UREA NITROGEN 13 MG/DL 7-17 N (test code = BUN) GLOMERULAR FILTRATION > 60 Report ing units: RATE (test code = GFR) ml/mi n/1.73 m2 (Modified MDRD Formula)Referen ce Range: > or = 6 0 ml/min/1.73 m2 CREATININE (test code 0.60 MG/DL 0.52-1.04 N = CREAT) CALCIUM (test code = 9.7 MG/DL 8.4-10.2 N CA) [id number] 13:49:00 Test Item Value Reference Range Interpretation Comments MAGNESIUM (test code = MAG) 1.4 MG/DL 1.6-2.3 L BASIC METABOLIC [id number] 13:48:00 Test Item Value Reference Range Interpretation Comments SODIUM (test code = 136 MMOL/L 137-145 L NA) POTASSIUM (test code = 2.9 MMOL/L 3.5-5.1 L SPARROW D TO RHODORA.V& K) READBACK ON AT 1348 BY Andrey De Guzman CHLORIDE (test code = 98 MMOL/L 98-107 N CL) CARBON DIOXIDE (test 30 MMOL/L 22-30 N code = CO2) ANION GAP (test code = 11 MMOL/L 14-24 L GAP) GLUCOSE (test code = 120 MG/DL 74-106 H GLU) BLOOD UREA NITROGEN 13 MG/DL 7-17 N (test code = BUN) GLOMERULAR FILTRATION > 60 Report ing units: RATE (test code = GFR) ml/mi n/1.73 m2 (Modified MDRD Formula)Referen ce Range: > or = 6 0 ml/min/1.73 m2 CREATININE (test code 0.60 MG/DL 0.52-1.04 N = CREAT) CALCIUM (test code = 9.7 MG/DL 8.4-10.2 N CA) [id number] 13:48:00 Test Item Value Reference Range Interpretation Comments MAGNESIUM (test code = MAG) MG/DL 1.6-2.3 - XR CHEST [id number] 13:35:00 Patient Name: WILI SABILLON Unit No: [id number] EXAMS: CPT CODE: [id number] XR CHEST 1V 51259 Location of dictation: B2 Portable chest one [...] post left carotid endarterectomy. 2. Right lower lobe atelectasis. at 1333 Reported and signed by: Larissa Balderas M.D. CC: Katie Marc MD Technologist: [facility] STUDENT ; Alhaji Cha, RT(R) Transcrpt Date/Tm/Trnsp: 05/05/2019 (8888) [email or web address] Orig Print D/T: S: 05/05/2019 (1336) [facility] NAME: WILI SABILLON [address] PHYS: Roh[place] [address] : 1945 AGE: 73 SEX: F LOC: Z.SI04 A PHONE #: [phone] EXAM DATE: 05/05/2019 STATUS: ADM IN FAX #: [phone] RADIOLOGY NO: PAGE 1 Signed ReportCBC W/AUTO [id number] 13:20:00 Test Item Value Reference Range Interpretation Comments WHITE BLOOD CELL (test code = 7.7 K/MM3 3.8-9.8 N WBC) RED BLOOD CELL (test code = 3.33 M/MM3 3.58-4.97 L RBC) HEMOGLOBIN (test code = HGB) 10.7 G/DL 11.2-14.9 L HEMATOCRIT (test code = HCT) 31.7 % 33.2-43.5 L MEAN CELL VOLUME (test code = 95 fL 80.7-99.1 N MCV) MEAN CELL HGB (test code = MCH) 32.1 pg 27.0-34.1 N MEAN CELL HGB CONCETRATION 33.8 % 32.2-35.7 N (test code = MCHC) RED CELL DISTRIBUTION WIDTH 15.2 % 12.1-15.2 N (test code = RDW) PLATELET COUNT (test code = 231 K/MM3 129-368 PLT) MEAN PLATELET VOLUME (test code 9.0 fl 7.4-10.4 N = MPV) NEUTROPHIL % (test code = NT%) 77.4 % 43-75 H IMMATURE GRANULOCYTE % (test 0.7 % 0.0-2.0 N code = IG%) LYMPHOCYTE % (test code = LY%) 13.2 % 14-44 L MONOCYTE % (test code = MO%) 5.7 % 4-13 N EOSINOPHIL % (test code = EO%) 2.7 % 0-6 N BASOPHIL % (test code = BA%) 0.3 % 0-2 N NUCLEATED RBC % (test code = 0.0 % 0-1.0 N NRBC%) NEUTROPHIL # (test code = NT#) 5.95 K/mm3 2.0-7.6 N IMMATURE GRANULOCYTE # (test 0.05 x10 3/uL 0-0.03 H code = IG#) LYMPHOCYTE # (test code = LY#) 1.01 K/mm3 1.0-3.8 N MONOCYTE # (test code = MO#) 0.44 K/mm3 0.1-0.8 N EOSINOPHIL # (test code = EO#) 0.21 K/mm3 0.0-0.2 H BASOPHIL # (test code = BA#) 0.02 K/mm3 0.0-0.2 N NUCLEATED RBC # (test code = 0.00 K/mm3 0.0-0.1 N NRBC#) ARTERIAL BLOOD [id number] 13:17:00 Test Item Value Reference Range Interpretation Comments ARTERIAL BLOOD GAS PH 7.36 mmHg 7.35-7.45 N (test code = PHA) ARTERIAL BLOOD GAS 51.2 mmHg 35.0-45.0 HH PCO2 (test code = PCO2A) ARTERIAL BLOOD GAS PO2 107.8 mmol/L 80.0-100.0 H (test code = PO2A) BICARBONATE TOTAL HCO3 28.0 mmol/L 20.0-26.0 H (test code = HCO3) BASE EXCESS (test code 1.5 mmol/L -3.0-3.0 N = RUKHSANA) ABG O2 SATURATION 97.7 % 95.0-100.0 N All critic al values (test code = SATA) report to and readback by ZANE TENORIO by ASHKAN at 05/05/2019 1:16: 23 PM ABG DELIVERY (test FACETENT code = DENISE) ABG TEMPERATURE (test 37.0 C >37 code = TEMPA) ABG SITE (test code = AL SITEA) ALLENS TEST (test code NA CHECK = ALLENS) FIO2 (test code = 60 % [id number]) PROTHROMBIN [id number] 13:06:00 Test Item Value Reference Range Interpretation Comments PROTHROMBIN TIME 10.5 SECONDS 9.6-11.6 N PATIENT (test code = PTP) INTERNATIONAL NORMAL 1.0 0.8-1.1 N The INR is to be RATIO (test code = used only for INR) monitoring oral anticoagulantth erap y. INDICATION I NR VALUE ---- ---- ---- -------1. Prophylaxis, de ep venous thrombos is, including hig h risk surgery. 2.0 - 3.0 2. Prophylaxis, de ep venous thrombos is, hip surgery, treatment for d eep venous thrombosis or pulmonary prevention of systemic emboli sm in patients wit h valvular heart disease, atrial fibrillation, tissue heart va lve, or acute myocar dial infarction. 2.0 - 3 .0 3. Mechanical prosthesis hear t valves, recurrent syste kyler embolism. 3.0 - 4.5 PTT [id number] 13:06:00 Test Item Value Reference Range Interpretation Comments PTT ACTIVATED (test code = APTT) 30.4 SECONDS 22.0-33.0 N HIV 12 AB [id number] 13:02:00 Test Item Value Reference Range Interpretation Comments HIV 1 2 COMBO AG/AB SCREEN AB/AG NON REACTIVE NONREACTIVE (test code = [id number]) CBC W/AUTO [id number] 12:51:00 Test Item Value Reference Range Interpretation Comments WHITE BLOOD CELL (test code = 6.0 K/MM3 3.8-9.8 N WBC) RED BLOOD CELL (test code = 3.61 M/MM3 3.58-4.97 N RBC) HEMOGLOBIN (test code = HGB) 11.5 G/DL 11.2-14.9 N HEMATOCRIT (test code = HCT) 35.9 % 33.2-43.5 N MEAN CELL VOLUME (test code = 99 fL 80.7-99.1 N MCV) MEAN CELL HGB (test code = MCH) 31.9 pg 27.0-34.1 N MEAN CELL HGB CONCETRATION 32.0 % 32.2-35.7 L (test code = MCHC) RED CELL DISTRIBUTION WIDTH 15.1 % 12.1-15.2 N (test code = RDW) PLATELET COUNT (test code = 292 K/MM3 129-368 N PLT) MEAN PLATELET VOLUME (test code 9.1 fl 7.4-10.4 N = MPV) NEUTROPHIL % (test code = NT%) 62.8 % 43-75 N IMMATURE GRANULOCYTE % (test 0.2 % 0.0-2.0 N code = IG%) LYMPHOCYTE % (test code = LY%) 22.1 % 14-44 N MONOCYTE % (test code = MO%) 11.6 % 4-13 N EOSINOPHIL % (test code = EO%) 2.8 % 0-6 N BASOPHIL % (test code = BA%) 0.5 % 0-2 N NUCLEATED RBC % (test code = 0.0 % 0-1.0 N NRBC%) NEUTROPHIL # (test code = NT#) 3.75 K/mm3 2.0-7.6 N IMMATURE GRANULOCYTE # (test 0.01 x10 3/uL 0-0.03 N code = IG#) LYMPHOCYTE # (test code = LY#) 1.32 K/mm3 1.0-3.8 N MONOCYTE # (test code = MO#) 0.69 K/mm3 0.1-0.8 N EOSINOPHIL # (test code = EO#) 0.17 K/mm3 0.0-0.2 N BASOPHIL # (test code = BA#) 0.03 K/mm3 0.0-0.2 N NUCLEATED RBC # (test code = 0.00 K/mm3 0.0-0.1 N NRBC#) BASIC METABOLIC [id number] 12:21:00 Test Item Value Reference Range Interpretation Comments SODIUM (test code = 133 MMOL/L 137-145 L NA) POTASSIUM (test code = 3.5 MMOL/L 3.5-5.1 N K) CHLORIDE (test code = 90 MMOL/L 98-107 L CL) CARBON DIOXIDE (test 34 MMOL/L 22-30 H code = CO2) GLUCOSE (test code = 93 MG/DL 74-106 N GLU) BLOOD UREA NITROGEN 13 MG/DL 7-17 N (test code = BUN) GLOMERULAR FILTRATION > 60 Report ing units: RATE (test code = GFR) ml/mi n/1.73 m2 (Modified MDRD Formula)Referen ce Range: > or = 6 0 ml/min/1.73 m2 CREATININE (test code 0.60 MG/DL 0.52-1.04 N = CREAT) CALCIUM (test code = 9.9 MG/DL 8.4-10.2 N CA) BASIC METABOLIC [id number] 12:20:00 Test Item Value Reference Range Interpretation Comments SODIUM (test code = 133 MMOL/L 137-145 L NA) POTASSIUM (test code = 3.5 MMOL/L 3.5-5.1 N K) CHLORIDE (test code = 90 MMOL/L 98-107 L CL) CARBON DIOXIDE (test MMOL/L 22-30 code = CO2) GLUCOSE (test code = MG/DL 74-106 GLU) BLOOD UREA NITROGEN MG/DL 7-17 (test code = BUN) GLOMERULAR FILTRATION > 60 Report ing units: RATE (test code = GFR) ml/mi n/1.73 m2 (Modified MDRD Formula)Referen ce Range: > or = 6 0 ml/min/1.73 m2 CREATININE (test code 0.60 MG/DL 0.52-1.04 N = CREAT) CALCIUM (test code = MG/DL 8.7-9.7 CA) BASIC METABOLIC [id number] 12:18:00 Test Item Value Reference Range Interpretation Comments SODIUM (test code = NA) 133 MMOL/L 137-145 L POTASSIUM (test code = K) 3.5 MMOL/L 3.5-5.1 N CHLORIDE (test code = CL) 90 MMOL/L 98-107 L CARBON DIOXIDE (test code = CO2) MMOL/L 22-30 GLUCOSE (test code = GLU) MG/DL 74-106 BLOOD UREA NITROGEN (test code = MG/DL 7-17 BUN) GLOMERULAR FILTRATION RATE (test code = GFR) CREATININE (test code = CREAT) MG/DL 0.52-1.04 CALCIUM (test code = CA) MG/DL 8.7-9.7 BASIC METABOLIC [id number] 12:17:00 Test Item Value Reference Range Interpretation Comments SODIUM (test code = NA) MMOL/L 137-145 POTASSIUM (test code = K) MMOL/L 3.5-5.1 CHLORIDE (test code = CL) 90 MMOL/L 98-107 L CARBON DIOXIDE (test code = CO2) MMOL/L 22-30 GLUCOSE (test code = GLU) MG/DL 74-106 BLOOD UREA NITROGEN (test code = MG/DL 7-17 BUN) GLOMERULAR FILTRATION RATE (test code = GFR) CREATININE (test code = CREAT) MG/DL 0.52-1.04 CALCIUM (test code = CA) MG/DL 8.7-9.7 - XR CHEST 2 [id number] 11:39:00 Patient Name: WILI SABILLON Unit No: [id number] EXAMS: CPT CODE: [id number] XR CHEST 2 V 07670 LOCATION: T18 EXAM: CHEST 2 VIEWS INDICATION: PRE- OP COMPARISON: Chest x-ray October 01, 2018 TECHNIQUE: [...] [email or web address] Orig Print D/T: S: 05/04/2019 (1142) [facility] NAME: WILI SABILLON [address] PHYS: [place] [address] : 1945 AGE: 73 SEX: F LOC: Z.SRG PHONE #: [phone] EXAM DATE: 05/04/2019 STATUS: PRE SDC FAX #: [phone] RADIOLOGY NO: PAGE 1 Signed ReportBASIC METABOLIC PANEL 2018-10-03 05:09:00 Test Item Value Reference Range Interpretation Comments SODIUM (test code = 137 MMOL/L 137-145 N NA) POTASSIUM (test code = 3.8 MMOL/L 3.5-5.1 N K) CHLORIDE (test code = 94 MMOL/L 98-107 L CL) CARBON DIOXIDE (test 37 MMOL/L 22-30 H code = CO2) GLUCOSE (test code = 105 MG/DL 74-106 N GLU) BLOOD UREA NITROGEN 8 MG/DL 7-17 N (test code = BUN) GLOMERULAR FILTRATION > 60 Report ing units: RATE (test code = GFR) ml/mi n/1.73 m2 (Modified MDRD Formula)Referen ce Range: > or = 6 0 ml/min/1.73 m2 CREATININE (test code 0.50 MG/DL 0.52-1.04 L = CREAT) CALCIUM (test code = 9.0 MG/DL 8.4-10.2 N CA) [id number] 05:09:00 Test Item Value Reference Range Interpretation Comments MAGNESIUM (test code = MAG) 1.8 MG/DL 1.6-2.3 N CBC W/AUTO [id number] 04:46:00 Test Item Value Reference Range Interpretation Comments WHITE BLOOD CELL (test code = 11.9 K/MM3 3.8-9.8 H WBC) RED BLOOD CELL (test code = 3.34 M/MM3 3.58-4.97 L RBC) HEMOGLOBIN (test code = HGB) 10.8 G/DL 11.2-14.9 L HEMATOCRIT (test code = HCT) 33.2 % 33.2-43.5 N MEAN CELL VOLUME (test code = 99 fL 80.7-99.1 N MCV) MEAN CELL HGB (test code = MCH) 32.3 pg 27.0-34.1 N MEAN CELL HGB CONCETRATION 32.5 % 32.2-35.7 N (test code = MCHC) RED CELL DISTRIBUTION WIDTH 14.9 % 12.1-15.2 N (test code = RDW) PLATELET COUNT (test code = 270 K/MM3 129-368 N PLT) MEAN PLATELET VOLUME (test code 8.8 fl 7.4-10.4 N = MPV) NEUTROPHIL % (test code = NT%) 75.6 % 43-75 H IMMATURE GRANULOCYTE % (test 0.3 % 0.0-2.0 N code = IG%) LYMPHOCYTE % (test code = LY%) 10.5 % 14-44 L MONOCYTE % (test code = MO%) 12.9 % 4-13 N EOSINOPHIL % (test code = EO%) 0.5 % 0-6 N BASOPHIL % (test code = BA%) 0.2 % 0-2 N NUCLEATED RBC % (test code = 0.0 % 0-1.0 N NRBC%) NEUTROPHIL # (test code = NT#) 9.00 K/mm3 2.0-7.6 H IMMATURE GRANULOCYTE # (test 0.03 x10 3/uL 0-0.03 N code = IG#) LYMPHOCYTE # (test code = LY#) 1.25 K/mm3 1.0-3.8 N MONOCYTE # (test code = MO#) 1.54 K/mm3 0.1-0.8 H EOSINOPHIL # (test code = EO#) 0.06 K/mm3 0.0-0.2 N BASOPHIL # (test code = BA#) 0.02 K/mm3 0.0-0.2 N NUCLEATED RBC # (test code = 0.00 K/mm3 0.0-0.1 N NRBC#) BASIC METABOLIC [id number] 06:03:00 Test Item Value Reference Range Interpretation Comments SODIUM (test code = 136 MMOL/L 137-145 L NA) POTASSIUM (test code = 3.6 MMOL/L 3.5-5.1 N K) CHLORIDE (test code = 95 MMOL/L 98-107 L CL) CARBON DIOXIDE (test 33 MMOL/L 22-30 H code = CO2) GLUCOSE (test code = 110 MG/DL 74-106 H GLU) BLOOD UREA NITROGEN 8 MG/DL 7-17 N (test code = BUN) GLOMERULAR FILTRATION > 60 Report ing units: RATE (test code = GFR) ml/mi n/1.73 m2 (Modified MDRD Formula)Referen ce Range: > or = 6 0 ml/min/1.73 m2 CREATININE (test code 0.60 MG/DL 0.52-1.04 N = CREAT) CALCIUM (test code = 8.7 MG/DL 8.4-10.2 N CA) [id number] 06:03:00 Test Item Value Reference Range Interpretation Comments MAGNESIUM (test code = MAG) 2.1 MG/DL 1.6-2.3 N CBC W/AUTO [id number] 05:32:00 Test Item Value Reference Range Interpretation Comments WHITE BLOOD CELL (test code = 11.6 K/MM3 3.8-9.8 H WBC) RED BLOOD CELL (test code = 3.39 M/MM3 3.58-4.97 L RBC) HEMOGLOBIN (test code = HGB) 11.0 G/DL 11.2-14.9 L HEMATOCRIT (test code = HCT) 33.6 % 33.2-43.5 N MEAN CELL VOLUME (test code = 99 fL 80.7-99.1 N MCV) MEAN CELL HGB (test code = MCH) 32.4 pg 27.0-34.1 N MEAN CELL HGB CONCETRATION 32.7 % 32.2-35.7 N (test code = MCHC) RED CELL DISTRIBUTION WIDTH 15.1 % 12.1-15.2 N (test code = RDW) PLATELET COUNT (test code = 274 K/MM3 129-368 N PLT) MEAN PLATELET VOLUME (test code 8.8 fl 7.4-10.4 N = MPV) NEUTROPHIL % (test code = NT%) 75.7 % 43-75 H IMMATURE GRANULOCYTE % (test 0.3 % 0.0-2.0 N code = IG%) LYMPHOCYTE % (test code = LY%) 11.9 % 14-44 L MONOCYTE % (test code = MO%) 11.2 % 4-13 N EOSINOPHIL % (test code = EO%) 0.7 % 0-6 N BASOPHIL % (test code = BA%) 0.2 % 0-2 N NUCLEATED RBC % (test code = 0.0 % 0-1.0 N NRBC%) NEUTROPHIL # (test code = NT#) 8.79 K/mm3 2.0-7.6 H IMMATURE GRANULOCYTE # (test 0.04 x10 3/uL 0-0.03 H code = IG#) LYMPHOCYTE # (test code = LY#) 1.38 K/mm3 1.0-3.8 N MONOCYTE # (test code = MO#) 1.30 K/mm3 0.1-0.8 H EOSINOPHIL # (test code = EO#) 0.08 K/mm3 0.0-0.2 N BASOPHIL # (test code = BA#) 0.02 K/mm3 0.0-0.2 N NUCLEATED RBC # (test code = 0.00 K/mm3 0.0-0.1 N NRBC#) ARTERIAL BLOOD [id number] 12:23:00 Test Item Value Reference Range Interpretation Comments ARTERIAL BLOOD GAS PH 7.42 mmHg 7.35-7.45 N (test code = PHA) ARTERIAL BLOOD GAS 45.2 mmHg 35.0-45.0 H PCO2 (test code = PCO2A) ARTERIAL BLOOD GAS PO2 81.7 mmol/L 80.0-100.0 N (test code = PO2A) BICARBONATE TOTAL HCO3 28.5 mmol/L 20.0-26.0 H (test code = HCO3) BASE EXCESS (test code 3.4 mmol/L -3.0-3.0 H = RUKHSANA) ABG O2 SATURATION 96.1 % 95.0-100.0 N (test code = SATA) ABG DELIVERY (test FACETENT Previousl y reported code = DENISE) result: FT/NC E dited by: THOAMSBGG o n 10/01/18:[id number] 9 1222: DELIVE RY previously repo rted as: FT/NC ABG TEMPERATURE (test 37.0 C >37 code = TEMPA) ABG SITE (test code = AL SITEA) ALLENS TEST (test code NA CHECK = ALLENS) FIO2 (test code = 40 % COHBGFFIO2) ARTERY,[id number] 11:58:00 RUN DATE: 10/01/18 [place] - LAB PAGE 1 RUN TIME: 1158 Specimen Inquiry RUN USER: INTERFACE PATIENT: WILI SABILLON LOC: ENA U #: [id number] AGE/SX: 72/F ROOM: [facility] RE09/30/18CHASE DR: Rohith Cruz MD : 47 BED: A DIS: STATUS: ADM IN TLOC: SPEC #: [id number] RECD: 09/30/18 STATUS: DIEGO BYNUM #: [id number] GUS: 09/30/[address] [facility] [address]: Rohith Cruz MD ENTERED: 09/30/18 SP TYPE: ARTERY, PL OTHR DR: Katie Marc MD, Nioti R MD Pepper, Gregory S MDORDERED: DECAL, SURG PATH LVL 3, SURG PATH LVL 4 CODES: [id number] - PLAQUE, NOS [id number] - ARTERY, NOS [id number] [id number] - CAROTID ARTERY ATHEROSCLEROSIS [id number] - CERVIX EXCISIONAL BIOP [id number] - LYMPH NODE, NOS COPIES TO: Katie Marc MD [address] [place] [address] [address] [place] [address] [email or web address] [address] [place] [address] [place] [address] [facility] [address] [place] [address] [place] [address] [facility] [address] [place] [address] ICD CODES: 440 - PROCEDURES: DECAL (10/01/18) SURG PATH LVL 3 (09/30/18) SURG PATH LVL 4 (09/30/18) TISSUES: A. ARTERY, NOS - RT ARTERY PLAQUE B. LYMPH NODE, NOS - RT CERVICAL LYMPH NODE CONTINUED ON NEXT PAGE RUN DATE: 10/01/18 [facility] PAGE 2 RUN TIME: 1158 Specimen Inquiry RUN USER:INTERFACE SPEC #: [id number] PATIENT: WILI SABILLON #[id number] (Continued) CLINICAL HISTORY RIGHT INTERNAL CAROTID ARTERYSTENOSIS CPT CODES CPT CODE(S): 41193 , 19470 , 59268 , , , , FINAL DIAGNOSIS A. Plaque, right carotid artery, endarterectomy: SEVERE ATHEROSCLEROSIS, OCCLUSIVE AND CALCIFIC B. Lymph node, right cervical, excisional biopsy: MINIMAL, NON-SPECIFIC, REACTIVE CHANGE GROSS DESCRIPTION A. Right carotid plaque. Received are two pieces of yellow-wyman, heavily calcified plaque (combined measurement 3.5 x 1 x 0.8 cm). Sections are submitted for decalcification as A1. B. Right cervical lymph node. Received is a wyman-pink lymph node (1.3 x 1 x 0.7 cm), sectioned and entirely submitted as B1. /tc/hazel MICROSCOPIC DESCRIPTION A. Right carotid plaque. Nodular atheromatous plaque with dense calcification and stromal sclerosis. No atypia. No malignancy. B. Right cervical lymph node. Benign lymph node with minimal hyperplastic deviation (reactive change). No atypia. No malignancy. /cm Signed SIGNATURE ON FILE David Maier 10/01/18 1158 END OF REPORT - XR CHEST [id number] 07:45:00 Patient Name: WILI SABILLON Unit No: [id number] EXAMS: CPT CODE: [id number] XR CHEST 1V 59031 EXAMINATION: - XR CHEST 1V. LOCATION: B2. HISTORY: post op. COMPARISON: Radiograph dated [...] Jeffrey High, RT(R) Transcrpt Date/Tm/Trnsp: 10/01/2018 (0745) [email or web address] Orig Print D/T: S: 10/01/2018 (0748) [facility] NAME: WILI SABILLON [address] PHYS: [place] [address] : 1945 AGE: 72 SEX: F LOC: Z.SI07 A PHONE #: [phone] EXAM DATE: 10/01/2018 STATUS: ADM IN FAX #: [phone] RADIOLOGY NO: PAGE 1 Signed ReportBASIC METABOLIC [id number] 05:58:00 Test Item Value Reference Range Interpretation Comments SODIUM (test code = 136 MMOL/L 137-145 L NA) POTASSIUM (test code = 3.9 MMOL/L 3.5-5.1 N K) CHLORIDE (test code = 96 MMOL/L 98-107 L CL) CARBON DIOXIDE (test 32 MMOL/L 22-30 H code = CO2) GLUCOSE (test code = 132 MG/DL 74-106 H GLU) BLOOD UREA NITROGEN 7 MG/DL 7-17 N (test code = BUN) GLOMERULAR FILTRATION > 60 Report ing units: RATE (test code = GFR) ml/mi n/1.73 m2 (Modified MDRD Formula)Referen ce Range: > or = 6 0 ml/min/1.73 m2 CREATININE (test code 0.60 MG/DL 0.52-1.04 N = CREAT) CALCIUM (test code = 8.7 MG/DL 8.4-10.2 N CA) [id number] 05:58:00 Test Item Value Reference Range Interpretation Comments MAGNESIUM (test code = MAG) 1.7 MG/DL 1.6-2.3 N CBC W/AUTO [id number] 05:30:00 Test Item Value Reference Range Interpretation Comments WHITE BLOOD CELL (test code = 10.7 K/MM3 3.8-9.8 H WBC) RED BLOOD CELL (test code = 3.70 M/MM3 3.58-4.97 N RBC) HEMOGLOBIN (test code = HGB) 12.0 G/DL 11.2-14.9 N HEMATOCRIT (test code = HCT) 36.0 % 33.2-43.5 N MEAN CELL VOLUME (test code = 97 fL 80.7-99.1 N MCV) MEAN CELL HGB (test code = MCH) 32.4 pg 27.0-34.1 N MEAN CELL HGB CONCETRATION 33.3 % 32.2-35.7 N (test code = MCHC) RED CELL DISTRIBUTION WIDTH 15.2 % 12.1-15.2 N (test code = RDW) PLATELET COUNT (test code = 298 K/MM3 129-368 N PLT) MEAN PLATELET VOLUME (test code 8.8 fl 7.4-10.4 N = MPV) NEUTROPHIL % (test code = NT%) 82.2 % 43-75 H IMMATURE GRANULOCYTE % (test 0.4 % 0.0-2.0 N code = IG%) LYMPHOCYTE % (test code = LY%) 8.7 % 14-44 L MONOCYTE % (test code = MO%) 8.4 % 4-13 N EOSINOPHIL % (test code = EO%) 0.1 % 0-6 N BASOPHIL % (test code = BA%) 0.2 % 0-2 N NUCLEATED RBC % (test code = 0.0 % 0-1.0 N NRBC%) NEUTROPHIL # (test code = NT#) 8.82 K/mm3 2.0-7.6 H IMMATURE GRANULOCYTE # (test 0.04 x10 3/uL 0-0.03 H code = IG#) LYMPHOCYTE # (test code = LY#) 0.93 K/mm3 1.0-3.8 L MONOCYTE # (test code = MO#) 0.90 K/mm3 0.1-0.8 H EOSINOPHIL # (test code = EO#) 0.01 K/mm3 0.0-0.2 N BASOPHIL # (test code = BA#) 0.02 K/mm3 0.0-0.2 N NUCLEATED RBC # (test code = 0.00 K/mm3 0.0-0.1 N NRBC#) [id number] 22:38:00 Test Item Value Reference Range Interpretation Comments POTASSIUM (test code = K) 3.3 MMOL/L 3.5-5.1 L [id number] 22:38:00 Test Item Value Reference Range Interpretation Comments MAGNESIUM (test code = MAG) 1.7 MG/DL 1.6-2.3 ARTERIAL BLOOD [id number] 17:57:00 Test Item Value Reference Range Interpretation Comments ARTERIAL BLOOD GAS PH (test code 7.42 mmHg 7.35-7.45 N = PHA) ARTERIAL BLOOD GAS PCO2 (test 45.2 mmHg 35.0-45.0 H code = PCO2A) ARTERIAL BLOOD GAS PO2 (test code 81.7 mmol/L 80.0-100.0 N = PO2A) BICARBONATE TOTAL HCO3 (test code 28.5 mmol/L 20.0-26.0 H = HCO3) BASE EXCESS (test code = RUKHSANA) 3.4 mmol/L -3.0-3.0 H ABG O2 SATURATION (test code = 96.1 % 95.0-100.0 N SATA) ABG DELIVERY (test code = DENISE) FT/NC ABG TEMPERATURE (test code = 37.0 C >37 TEMPA) ABG SITE (test code = SITEA) AL ALLENS TEST (test code = ALLENS) NA CHECK FIO2 (test code = COHBGFFIO2) 40 % BASIC METABOLIC [id number] 16:18:00 Test Item Value Reference Range Interpretation Comments SODIUM (test code = 138 MMOL/L 137-145 N NA) POTASSIUM (test code = 3.1 MMOL/L 3.5-5.1 L K) CHLORIDE (test code = 100 MMOL/L 98-107 N CL) CARBON DIOXIDE (test 31 MMOL/L 22-30 H code = CO2) GLUCOSE (test code = 119 MG/DL 74-106 H GLU) BLOOD UREA NITROGEN 10 MG/DL 7-17 N (test code = BUN) GLOMERULAR FILTRATION > 60 Report ing units: RATE (test code = GFR) ml/mi n/1.73 m2 (Modified MDRD Formula)Referen ce Range: > or = 6 0 ml/min/1.73 m2 CREATININE (test code 0.60 MG/DL 0.52-1.04 N = CREAT) CALCIUM (test code = 8.9 MG/DL 8.4-10.2 N CA) [id number] 16:18:00 Test Item Value Reference Range Interpretation Comments MAGNESIUM (test code = MAG) 1.3 MG/DL 1.6-2.3 L CBC W/AUTO [id number] 16:06:00 Test Item Value Reference Range Interpretation Comments WHITE BLOOD CELL (test code = 10.8 K/MM3 3.8-9.8 H WBC) RED BLOOD CELL (test code = 3.64 M/MM3 3.58-4.97 N RBC) HEMOGLOBIN (test code = HGB) 11.8 G/DL 11.2-14.9 N HEMATOCRIT (test code = HCT) 35.3 % 33.2-43.5 N MEAN CELL VOLUME (test code = 97 fL 80.7-99.1 N MCV) MEAN CELL HGB (test code = MCH) 32.4 pg 27.0-34.1 N MEAN CELL HGB CONCETRATION 33.4 % 32.2-35.7 N (test code = MCHC) RED CELL DISTRIBUTION WIDTH 14.9 % 12.1-15.2 N (test code = RDW) PLATELET COUNT (test code = 281 K/MM3 129-368 N PLT) MEAN PLATELET VOLUME (test code 8.9 fl 7.4-10.4 N = MPV) NEUTROPHIL % (test code = NT%) 55.0 % 43-75 N IMMATURE GRANULOCYTE % (test 0.6 % 0.0-2.0 N code = IG%) LYMPHOCYTE % (test code = LY%) 30.3 % 14-44 N MONOCYTE % (test code = MO%) 10.8 % 4-13 N EOSINOPHIL % (test code = EO%) 3.0 % 0-6 N BASOPHIL % (test code = BA%) 0.3 % 0-2 N NUCLEATED RBC % (test code = 0.0 % 0-1.0 N NRBC%) NEUTROPHIL # (test code = NT#) 5.97 K/mm3 2.0-7.6 N IMMATURE GRANULOCYTE # (test 0.07 x10 3/uL 0-0.03 H code = IG#) LYMPHOCYTE # (test code = LY#) 3.28 K/mm3 1.0-3.8 N MONOCYTE # (test code = MO#) 1.17 K/mm3 0.1-0.8 H EOSINOPHIL # (test code = EO#) 0.32 K/mm3 0.0-0.2 H BASOPHIL # (test code = BA#) 0.03 K/mm3 0.0-0.2 N NUCLEATED RBC # (test code = 0.00 K/mm3 0.0-0.1 N NRBC#) - XR CHEST [id number] 15:29:00 Patient Name: WILI SABILLON Unit No: [id number] EXAMS: CPT CODE: [id number] XR CHEST 1V 99292 EXAM: CHEST ONE VIEW INDICATION: Postop LOCATION:B2 COMPARISON: September 29, 2018 TECHNIQUE: AP view [...] Katie Marc MD; Brisa GARCIA Technologist: Alhaji Cha, RT(R) Transcrpt Date/Tm/Trnsp: 09/30/2018 (1529) [id number] OrigPrint D/T: S: 09/30/2018 (1532) [facility] NAME: WILI SABILLON [address] PHYS: [place] [address] : 1945 AGE: 72 SEX: F LOC: Z.SI07 A PHONE #: [phone] EXAM DATE: 09/30/2018 STATUS: ADM IN FAX #: [phone] RADIOLOGY NO: PAGE 1 Signed ReportHIV 12 AB [id number] 19:14:00 Test Item Value Reference Range Interpretation Comments AB HIV 1 2 NON REACTIVE NON-REAC NOTE: A NONREA CTIVE (test code = RESULT INDICATE S THAT [id number]) HIV-1 AND HIV-2 ANTIBODIES HAVE NOT BEEN F OUND IN THIS PATIENT SP ECIMEN. ANON-REACTIVE R ESULT, HOWEVER, DOES N OT PRECLUDE PREVIOUSEXPOSUR E OR INFECTION WITH HIV1. AG HIV1 P24 NON REACTIVE NONE REAC (test code = [id number]) PROTHROMBIN [id number] 14:22:00 Test Item Value Reference Range Interpretation Comments PROTHROMBIN TIME 10.4 SECONDS 9.6-11.6 N PATIENT (test code = PTP) INTERNATIONAL NORMAL 1.0 0.8-1.1 N The INR is to be RATIO (test code = used only for INR) monitoring oral anticoagulantth erap y. INDICATION I NR VALUE ---- ---- ---- -------1. Prophylaxis, de ep venous thrombos is, including hig h risk surgery. 2.0 - 3.0 2. Prophylaxis, de ep venous thrombos is, hip surgery, treatment for d eep venous thrombosis or pulmonary prevention of systemic emboli sm in patients wit h valvular heart disease, atrial fibrillation, tissue heart va lve, or acute myocar dial infarction. 2.0 - 3 .0 3. Mechanical prosthesis hear t valves, recurrent syste kyler embolism. 3.0 - 4.5 PTT [id number] 14:22:00 Test Item Value Reference Range Interpretation Comments PTT ACTIVATED (test code = APTT) 29.3 SECONDS 22.0-33.0 N BASIC METABOLIC [id number] 14:18:00 Test Item Value Reference Range Interpretation Comments SODIUM (test code = 140 MMOL/L 137-145 N NA) POTASSIUM (test code = 4.0 MMOL/L 3.5-5.1 N K) CHLORIDE (test code = 96 MMOL/L 98-107 L CL) CARBON DIOXIDE (test 33 MMOL/L 22-30 H code = CO2) GLUCOSE (test code = 124 MG/DL 74-106 H GLU) BLOOD UREA NITROGEN 13 MG/DL 7-17 N (test code = BUN) GLOMERULAR FILTRATION > 60 Report ing units: RATE (test code = GFR) ml/mi n/1.73 m2 (Modified MDRD Formula)Referen ce Range: > or = 6 0 ml/min/1.73 m2 CREATININE (test code 0.80 MG/DL 0.52-1.04 N = CREAT) CALCIUM (test code = 9.9 MG/DL 8.4-10.2 N CA) - XR CHEST 2 [id number] 14:14:00 Patient Name: WILI SABILLON Unit No: [id number] EXAMS: CPT CODE: [id number] XR CHEST 2 V 82127 EXAM: CHEST 2 VIEWS INDICATION: PRE-OP LOCATION: B2 COMPARISON: None available TECHNIQUE: PA and [...] Technologist: Gay Wolfe, RT(R) Transcrpt Date/Tm/Trnsp: 09/29/2018 (1417) 16 Orig Print D/T: S: 09/29/2018 (1418) [facility] NAME: WILI SABILLON [address] PHYS: [place] [address] : 1945 AGE: 72 SEX: F LOC: ZSakshiHU PHONE #: [phone] EXAM DATE: 09/29/2018 STATUS: PRE IN FAX #: [phone] RADIOLOGY NO: PAGE 1 Signed ReportCBC W/AUTO [id number] 13:57:00 Test Item Value Reference Range Interpretation Comments WHITE BLOOD CELL (test code = 7.4 K/MM3 3.8-9.8 N WBC) RED BLOOD CELL (test code = 3.85 M/MM3 3.58-4.97 N RBC) HEMOGLOBIN (test code = HGB) 12.4 G/DL 11.2-14.9 N HEMATOCRIT (test code = HCT) 37.8 % 33.2-43.5 N MEAN CELL VOLUME (test code = 98 fL 80.7-99.1 N MCV) MEAN CELL HGB (test code = MCH) 32.2 pg 27.0-34.1 N MEAN CELL HGB CONCETRATION 32.8 % 32.2-35.7 N (test code = MCHC) RED CELL DISTRIBUTION WIDTH 14.9 % 12.1-15.2 N (test code = RDW) PLATELET COUNT (test code = 294 K/MM3 129-368 N PLT) MEAN PLATELET VOLUME (test code 8.9 fl 7.4-10.4 N = MPV) NEUTROPHIL % (test code = NT%) 59.2 % 43-75 N IMMATURE GRANULOCYTE % (test 0.3 % 0.0-2.0 N code = IG%) LYMPHOCYTE % (test code = LY%) 27.3 % 14-44 N MONOCYTE % (test code = MO%) 11.6 % 4-13 N EOSINOPHIL % (test code = EO%) 1.3 % 0-6 N BASOPHIL % (test code = BA%) 0.3 % 0-2 N NUCLEATED RBC % (test code = 0.0 % 0-1.0 N NRBC%) NEUTROPHIL # (test code = NT#) 4.41 K/mm3 2.0-7.6 N IMMATURE GRANULOCYTE # (test 0.02 x10 3/uL 0-0.03 N code = IG#) LYMPHOCYTE # (test code = LY#) 2.03 K/mm3 1.0-3.8 N MONOCYTE # (test code = MO#) 0.86 K/mm3 0.1-0.8 H EOSINOPHIL # (test code = EO#) 0.10 K/mm3 0.0-0.2 N BASOPHIL # (test code = BA#) 0.02 K/mm3 0.0-0.2 N NUCLEATED RBC # (test code = 0.00 K/mm3 0.0-0.1 N NRBC#) BASIC METABOLIC [id number] 06:04:00 Test Item Value Reference Range Interpretation Comments SODIUM (test code = 140 MMOL/L 137-145 N NA) POTASSIUM (test code = 4.4 MMOL/L 3.5-5.1 N K) CHLORIDE (test code = 99 MMOL/L 98-107 N CL) CARBON DIOXIDE (test 32 MMOL/L 22-30 H code = CO2) GLUCOSE (test code = 93 MG/DL 74-106 N GLU) BLOOD UREA NITROGEN 21 MG/DL 7-17 H (test code = BUN) GLOMERULAR FILTRATION > 60 Report ing units: RATE (test code = GFR) ml/mi n/1.73 m2 (Modified MDRD Formula)Referen ce Range: > or = 6 0 ml/min/1.73 m2 CREATININE (test code 0.90 MG/DL 0.52-1.04 N = CREAT) CALCIUM (test code = 9.7 MG/DL 8.4-10.2 N CA) LIPID PROFILE (CORONARY RISK)[id number] 06:04:00 Test Item Value Reference Range Interpretation Comments TRIGLYCERIDES (test 99 MG/DL TRIGLYCE RIDES code = TRIG) REFERENCE RANGE:Normal: < 150 mg/dLBorderline High: 150-199 mg/dLHi gh: 200-499 mg/dLVe ry High: >=500 mg/ dL CHOLESTEROL (test code 135 MG/DL <200 = CHOL) HDL CHOLESTEROL (test 50 MG/DL 40-59 N code = HDL) LIPOPROTEIN LDL (test 65 MG/DL 0-99 N code = LDL) OPTIMAL........ .<100 mg/dLNEAR OPTIMAL/ABOVE OPTIMAL........ .100-12 9 mg/dL BORDERLINE HIGH.........13 0-159 mg/dL HIGH.........16 0-189 mg/dL VERY HIGH...... ...>/= 190 mg/dL [id number] 06:04:00 Test Item Value Reference Range Interpretation Comments MAGNESIUM (test code = MAG) 1.9 MG/DL 1.6-2.3 N PROTHROMBIN [id number] 06:00:00 Test Item Value Reference Range Interpretation Comments PROTHROMBIN TIME 10.3 SECONDS 9.6-11.6 N PATIENT (test code = PTP) INTERNATIONAL NORMAL 1.0 0.8-1.1 N The INR is to be RATIO (test code = used only for INR) monitoring oral anticoagulantth erap y. INDICATION I NR VALUE ---- ---- ---- -------1. Prophylaxis, de ep venous thrombos is, including hig h risk surgery. 2.0 - 3.0 2. Prophylaxis, de ep venous thrombos is, hip surgery, treatment for d eep venous thrombosis or pulmonary prevention of systemic emboli sm in patients wit h valvular heart disease, atrial fibrillation, tissue heart va lve, or acute myocar dial infarction. 2.0 - 3 .0 3. Mechanical prosthesis hear t valves, recurrent syste kyler embolism. 3.0 - 4.5 Comments to Derrick Boat Captain: WILL BRING TO [facility] [id number] 06:00:00 Test Item Value Reference Range Interpretation Comments PTT ACTIVATED (test code = APTT) 29.3 SECONDS 22.0-33.0 N Comments to Derrick Boat Captain: WILL BRING TO [facility] METABOLIC [id number] 05:54:00 Test Item Value Reference Range Interpretation Comments SODIUM (test code = 140 MMOL/L 137-145 N NA) POTASSIUM (test code = 4.4 MMOL/L 3.5-5.1 N K) CHLORIDE (test code = 99 MMOL/L 98-107 N CL) CARBON DIOXIDE (test 32 MMOL/L 22-30 H code = CO2) GLUCOSE (test code = 93 MG/DL 74-106 N GLU) BLOOD UREA NITROGEN 21 MG/DL 7-17 H (test code = BUN) GLOMERULAR FILTRATION > 60 Report ing units: RATE (test code = GFR) ml/mi n/1.73 m2 (Modified MDRD Formula)Referen ce Range: > or = 6 0 ml/min/1.73 m2 CREATININE (test code 0.90 MG/DL 0.52-1.04 N = CREAT) CALCIUM (test code = 9.7 MG/DL 8.4-10.2 N CA) LIPID PROFILE (CORONARY RISK)2018-09-20 05:54:00 Test Item Value Reference Range Interpretation Comments TRIGLYCERIDES (test 99 MG/DL TRIGLYCE RIDES code = TRIG) REFERENCE RANGE:Normal: < 150 mg/dLBorderline High: 150-199 mg/dLHi gh: 200-499 mg/dLVe ry High: >=500 mg/ dL CHOLESTEROL (test code 135 MG/DL <200 = CHOL) HDL CHOLESTEROL (test 50 MG/DL 40-59 N code = HDL) LIPOPROTEIN LDL (test MG/DL 0-99 code = LDL) [id number] 05:54:00 Test Item Value Reference Range Interpretation Comments MAGNESIUM (test code = MAG) 1.9 MG/DL 1.6-2.3 N CBC W/AUTO [id number] 05:41:00 Test Item Value Reference Range Interpretation Comments WHITE BLOOD CELL (test code = 6.4 K/MM3 3.8-9.8 N WBC) RED BLOOD CELL (test code = 3.97 M/MM3 3.58-4.97 N RBC) HEMOGLOBIN (test code = HGB) 12.7 G/DL 11.2-14.9 N HEMATOCRIT (test code = HCT) 39.5 % 33.2-43.5 N MEAN CELL VOLUME (test code = 100 fL 80.7-99.1 H MCV) MEAN CELL HGB (test code = MCH) 32.0 pg 27.0-34.1 N MEAN CELL HGB CONCETRATION 32.2 % 32.2-35.7 N (test code = MCHC) RED CELL DISTRIBUTION WIDTH 15.7 % 12.1-15.2 H (test code = RDW) PLATELET COUNT (test code = 279 K/MM3 129-368 N PLT) MEAN PLATELET VOLUME (test code 8.9 fl 7.4-10.4 N = MPV) NEUTROPHIL % (test code = NT%) 51.5 % 43-75 N IMMATURE GRANULOCYTE % (test 0.3 % 0.0-2.0 N code = IG%) LYMPHOCYTE % (test code = LY%) 30.9 % 14-44 N MONOCYTE % (test code = MO%) 13.3 % 4-13 H EOSINOPHIL % (test code = EO%) 3.7 % 0-6 N BASOPHIL % (test code = BA%) 0.3 % 0-2 N NUCLEATED RBC % (test code = 0.0 % 0-1.0 N NRBC%) NEUTROPHIL # (test code = NT#) 3.30 K/mm3 2.0-7.6 N IMMATURE GRANULOCYTE # (test 0.02 x10 3/uL 0-0.03 N code = IG#) LYMPHOCYTE # (test code = LY#) 1.98 K/mm3 1.0-3.8 N MONOCYTE # (test code = MO#) 0.85 K/mm3 0.1-0.8 H EOSINOPHIL # (test code = EO#) 0.24 K/mm3 0.0-0.2 H BASOPHIL # (test code = BA#) 0.02 K/mm3 0.0-0.2 N NUCLEATED RBC # (test code = 0.00 K/mm3 0.0-0.1 N NRBC#)
--- NOTE | 2020-09-27 18:24 | RAD REPORT ---
EXAM DESCRIPTION: CT - Head Brain Wo Cont - 09/27/2020 6:04 pm CLINICAL HISTORY: Alteration of awareness/confusion/ocular swelling COMPARISON: None TECHNIQUE: Computed axial tomography of the head was obtained. IV contrast was not requested. All CT scans are performed using dose optimization technique as appropriate and may include automated exposure control or mA/KV adjustment according to patient size. FINDINGS: An intracranial bleed is not seen . The ventricles are normal in caliber. No extra-axial fluid collection is noted. Empty sella turcica is Mild to moderate low-density areas within periventricular, deep and subcortical white matter likely r epresent ischemic changes secondary to small vessel disease. Fluid within the sinuses/ mastoids is not seen. IMPRESSION: No acute intracranial abnormality is seen. If patient's symptoms persist MRI of the bra in would be recommended.
--- NOTE | 2020-09-27 18:30 | RAD REPORT ---
EXAM DESCRIPTION: CT - Thorax Wo Con - 09/27/2020 6:06 pm CLINICAL HISTORY: Chest pain COMPARISON: September 16, 2020 chest x-ray TECHNIQUE: Computed axial tomography of the chest was obtained. Contrast was not requested. All CT scans are performed using dose optimization technique as appropriate and may include automated exposure control or mA/KV adjustment according to patient size. FINDINGS: The evaluation of mediastinum, bethany and vessels is limited secondary to lack of IV contras t administration. Minimal ground-glass opacities within the lungs. Otherwise, lungs are clear Ascending thoracic aorta has an AP diameter 4.5 centimeters. A pleural effusion is not present. 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
[2020-09-27 19:07] LABS: Absolute Lymphocytes (CBC) 1.1 K/uL (0.7-4.9); Basophils % 0.6 % (0-1.3); Hematocrit 36.7 % (36.0-45.0); Lymphocytes % 16.5 % (15.3-44.8); MPV 7.4 fL (7.6-11.3); RBC Red Blood Cell Count 3.74 M/uL (3.86-4.86)
[2020-09-27 19:22] LABS: Bilirubin Total 0.3 mg/dL (0.2-1.0); Potassium 4.1 mmol/L (3.5-5.1); Protein, Total 8.8 g/dL (6.4-8.2)
--- NOTE | 2020-09-27 19:22 | P.HP ---
Certification for Inpatient Patient admitted to: Inpatient With expected LOS: >2 Midnights Patient will require the following post-hospital care: None Practitioner: I am a practitioner with admitting privileges, knowledge of patient current condition, hospital course, and medical plan of care. Services: Services provided to patient in accordance with Admission requirements found in Title 42 Section 412.3 of the Code of Federal Regulations <Nathan Marquez - Last Filed: 09/27/20 19:29> Patient History Date of Service: 09/27/20 Primary Care Provider: Corbin Reason for admission: ocular syphilis History of Present Illness: Ms. Dia is a 74 yo F with HTN, CAD, hypothyroidism, HLD here today from Dr. Alaniz's office for further workup of possible ocular syphilis. One month ago, she said she had inflammation in her left eye that looked like 'scratches', and reported decreased visual acuity and blurry vision. Vision changes worse when she tried to focus on her tablet. Symptoms improved with eye drops from [employer]. She denies pain, N/V, hearing loss, tinnitus, dizziness. VDRL and FTA-ABS tests positive for syphilis. Head CT wnl. CT Chest shows 4.5 cm ascending thoracic aortic aneurysm. - Past Medical/Surgical History Diabetic: No -: CHF -: HTN -: Hypothyroidism -: CAD -: HLD -: syphilis -: Splenectomy -: PTCA 2014 -: endarterectomy - Family History Mother -: Hypertension, Cancer Notes: Jaw cancer Father -: Hypertension - Social History Smoking Status: Former smoker Alcohol use: Yes CD- Drugs: No Caffeine use: Yes Place of Residence: Home <Nathan Marquez - Last Filed: 09/27/20 19:29> Date of Service: 09/27/20 <Goyo Magdaleno - Last Filed: 09/30/20 03:47> Allergies No Known Allergies Allergy (Verified 06/17/19 16:51) Home Medications: Aspirin Chewable [Aspirin Chewable*] 1 tab PO DAILY 06/17/19 Atorvastatin Calcium 40 mg PO DAILY 06/17/19 Clopidogrel Bisulfate [Plavix*] 75 mg PO DAILY 06/17/19 Pantoprazole [Protonix Tab*] 1 tab PO DAILY 06/17/19 Docusate [Colace Cap*] 100 mg PO BID cap 06/21/19 Losartan/Hydrochlorothiazide [Losartan-Hctz 100-12.5 mg Tab] 1 each PO DAILY #30 tablet 06/21/19 Polyethyl Gly 3350 [Glycolax*] 17 gm PO DAILY PRN udbot 06/21/19 Levothyroxine [Synthroid*] 1 tab PO DAILY 09/28/20 Losartan/Hydrochlorothiazide [Losartan-Hctz 100-12.5 mg Tab] 1 tab PO DAILY 09/28/20 Metoprolol Tartrate 100 mg PO DAILY 09/28/20 Review of Systems 10-point ROS is otherwise unremarkable Eyes: Vision Change, Conjunctivae Inflammation, As per HPI <Nathan Marquez - Last Filed: 09/27/20 19:29> Physical Examination - Physical Exam General: Alert, In no apparent distress HEENT: Atraumatic, PERRLA, Mucous membr. moist/pink, EOMI, Sclerae nonicteric Neck: Supple, 2+ carotid pulse no bruit, No LAD, Without JVD or thyroid abnormality Respiratory: Clear to auscultation bilaterally, Normal air movement Cardiovascular: Regular rate/rhythm, Normal S1 S2 Gastrointestinal: Normal bowel sounds, No tenderness Musculoskeletal: No tenderness Integumentary: No rashes Neurological: Normal speech, Normal strength at 5/5 x4 extr, Normal tone, Cranial nerves 3-12 intact, Normal affect, Abnormal sensation Lymphatics: No axilla or inguinal lymphadenopathy - Studies Laboratory Data (last 24 hrs) 09/27/20 18:58: WBC 6.40, Hgb 12.4, Hct 36.7, Plt Count 249 <Nathan Marquez - Last Filed: 09/27/20 19:29> Assessment and Plan - Problems (Diagnosis) (1) CAD (coronary artery disease) Current Visit: Yes Status: Chronic Qualifiers: Coronary Disease-Associated Artery/Lesion type: unspecified vessel or lesion type [place] vs. transplanted heart: [place] heart Associated angina: without angina Qualified Code(s): I25.10 - Atherosclerotic heart disease of [place] coronary artery without angina pectoris (2) HTN (hypertension) Current Visit: Yes Status: Chronic Qualifiers: Hypertension type: essential hypertension Qualified Code(s): I10 - Essential (primary) hypertension (3) HLD (hyperlipidemia) Current Visit: Yes Status: Chronic Qualifiers: Hyperlipidemia type: unspecified Qualified Code(s): E78.5 - Hyperlipidemia, unspecified (4) Hypothyroidism Current Visit: Yes Status: Chronic Qualifiers: Hypothyroidism type: unspecified Qualified Code(s): E03.9 - Hypothyroidism, unspecified (5) Thoracic aortic aneurysm Current Visit: Yes Status: Chronic Qualifiers: Presence of rupture: without rupture Qualified Code(s): I71.2 - Thoracic aortic aneurysm, without rupture (6) Syphilis Current Visit: Yes Status: Acute - Plan neurology consulted, ophthalmology consulted, infectious diseases consulted fluoroscope guided LP scheduled for the AM will start IV penicillin in the AM after LP HIV test pending BP stable, will restart home medications, hydralazine IV for BP spikes PRN HLD stable, continue home medications hypothyroidism stable, continue home medications CAD stable, continue home medications Discharge Plan: Home Plan to discharge in: 72 Hours - Advance Directives Does patient have a Living Will: Yes Does patient have a Durable POA for Healthcare: No - Code Status/Comfort Care Code Status Assessed: Yes (full code ) Critical Care: No Time Spent Managing Pts Care (In Minutes): 70 <Nathan Marquez - Last Filed: 09/27/20 19:29> Date of Service: 09/27/20 Agree with plan of care as mentioned above. At this time we will discuss case with Neurology and Ophthalmology. Continue with IV penicillin. PICC line arrange for outpatient antibiotics. Anticipate discharge after lumbar puncture on Saturday. <Goyo Magdaleno - Last Filed: 09/30/20 03:47>
--- NOTE | 2020-09-27 19:38 | EDPHYS ---
Physician Documentation [facility] Name: Racheal Dia Age: 74 yrs Sex: Female : 1945 Arrival Date: 09/27/2020 Time: 15:49 Bed 24 Private MD: Corbin [facility] ED Physician Jaret Swift HPI: 09/27 15:58 This 74 yrs old Black Female presents to ER via Ambulatory with complaints of Abnormal jmm Lab Results. 15:58 This is a 74 year old female with a history of CHF, HTN, Hypothyroidism that presents jmm to the ED with no complaints. Sent by Dr. Alaniz for admission due to concerns for ocular syphillis. Historical: - Allergies: 15:55 No Known Allergies; jd3 - PMHx: 15:55 CHF; Hypertension; Hypothyroidism; jd3 - PSHx: 15:55 Carotid Artery; jd3 - Immunization history:: Adult Immunizations up to date. - Social history:: Smoking status: Patient/guardian denies using tobacco, but has a distant history of tobacco abuse. ROS: 15:58 Constitutional: Negative for fever, chills, and weight loss, Cardiovascular: Negative jmm for chest pain, palpitations, and edema, Respiratory: Negative for shortness of breath, cough, wheezing, and pleuritic chest pain, Neuro: Negative for headache, weakness, numbness, tingling, and seizure. 15:58 All other systems are negative. Exam: 15:58 Constitutional: This is a well developed, well nourished patient who is awake, alert, jmm and in no acute distress. Head/Face: atraumatic. Eyes: EOMI, no conjunctival erythema appreciated ENT: Moist Mucus Membranes Neck: Trachea midline, Supple Chest/axilla: Normal chest wall appearance and motion. Cardiovascular: Regular rate and rhythm. No edema appreciated Respiratory: Normal respirations, no respiratory distress appreciated Abdomen/GI: Non distended, soft Back: Normal ROM Skin: General appearance color normal MS/ Extremity: Moves all extremities, no obvious deformities appreciated, no edema noted to the lower extremities Neuro: Awake and alert, normal gait Psych: Behavior is normal, Mood is normal, Patient is cooperative and pleasant Vital Signs: 15:55 BP 150 / 85; Pulse 74; Resp 16 S; Temp 97.0(TE); Pulse Ox 97% on R/A; Weight 59.87 kg jd3 (R); Height 5 ft. 1 in. (154.94 cm) (R); Pain 0/10; 16:15 BP 137 / 84; Pulse 69; Resp 19; Pulse Ox 98% on R/A; kg 16:30 BP 145 / 82; Pulse 68; Resp 20; Pulse Ox 98% ; kg 16:45 BP 129 / 88; Pulse 62; Resp 20; Pulse Ox 97% on R/A; kg 17:33 BP 146 / 94; Pulse 67; Resp 17; Pulse Ox 100% on R/A; kg 18:00 BP 157 / 91; Pulse 65; Resp 20; Pulse Ox 100% ; kg 20:16 BP 157 / 98; Pulse 65; Resp 20; Pulse Ox 99% on R/A; kg 15:55 Body Mass Index 24.94 (59.87 kg, 154.94 cm) jd3 MDM: 15:58 Patient medically screened. jaret 19:34 Data reviewed: vital signs, nurses notes. Counseling: I had a detailed discussion with frankie the patient and/or guardian regarding: the historical points, exam findings, and any diagnostic results supporting the discharge/admit diagnosis, lab results, the need for further work-up and treatment in the hospital. ED course: I discussed the patient with Dr. Vila whom will consult on admission. I discussed the patient with Nathan Marquez PA-C whom accepted the patient to Dr. Frances service. 09/27 17:47 Order name: CBC with Diff [facility] 09/27 17:47 Order name: CMP; Complete Time: 19:26 [facility] 09/27 17:47 Order name: CT Head Brain wo Cont; Complete Time: 18:32 [facility] 09/27 17:47 Order name: CT Chest Wo Con; Complete Time: 18:32 [facility] 09/27 17:48 Order name: CBC with Automated Diff; Complete Time: 20:01 [facility] 09/27 19:45 Order name: CBC Smear Scan; Complete Time: 20:01 [facility] 09/27 17:47 Order name: Saline Lock; Complete Time: 19:13 [facility] 09/27 19:11 Order name: CONS Physician Consult EDME Administered Medications: No medications were administered Disposition: 09/28 08:04 Co-signature as Attending Physician, Jaret Swift MD I agree with the assessment and jaret plan of care. Disposition: 09/27/20 19:38 Hospitalization ordered by Goyo Magdaleno for Observation. Preliminary diagnosis are Acute Iritis, Positive RPR. - Bed requested for Telemetry/MedSurg (observation). - Status is Observation. bb - Condition is Stable. - Problem is new. - Symptoms are unchanged. Signatures: Dispatcher [employer] EDME Jaret Swift MD MD cha Mickail, Joel, PA PA Sia Rios RN RN bb Garcia, Cindy, RN RN Dong Prince RN RN jd3 Corrections: (The following items were deleted from the chart) 09/27 19:56 19:38 Hospitalization Ordered by Goyo Magdaleno MD for Observation. Preliminary cg diagnosis is Acute Iritis; Positive RPR. Bed requested for Telemetry/MedSurg (observation). Status is Observation. Condition is Stable. Problem is new. Symptoms are unchanged. [facility] 21:05 19:56 09/27/2020 19:38 Hospitalization Ordered by Goyo Magdaleno MD for Observation. bb Preliminary diagnosis is Acute Iritis; Positive RPR. Bed requested for Telemetry/MedSurg (observation). Status is Observation. Condition is Stable. Problem is new. Symptoms are unchanged. cg
--- NOTE | 2020-09-27 19:38 | ER ---
Nurse's Notes [facility] Name: Racheal Dia Age: 74 yrs Sex: Female : 1945 Arrival Date: 09/27/2020 Time: 15:49 Bed 24 Private MD: Jeremi Alaniz Diagnosis: Acute Iritis;Positive RPR Presentation: 09/27 15:52 Chief complaint: Patient states: "My doctor sent me here to get admitted to get IV jd3 antibiotics because I have something wrong in my blood. Dr. Alaniz sent me.". Coronavirus screen: At this time, the client does not indicate any symptoms associated with coronavirus-19. Ebola Screen: Patient negative for fever greater than or equal to 101.5 degrees Fahrenheit, and additional compatible Ebola Virus Disease symptoms. Initial Sepsis Screen: Does the patient meet any 2 criteria? No. Patient's initial sepsis screen is negative. Does the patient have a suspected source of infection? No. Patient's initial sepsis screen is negative. Risk Assessment: Do you want to hurt yourself or someone else? Patient reports no desire to harm self or others. Onset of symptoms was September 27, 2020. 15:52 Method Of Arrival: Ambulatory jd3 15:52 Acuity: AISHA 3 jd3 Historical: - Allergies: 15:55 No Known Allergies; jd3 - PMHx: 15:55 CHF; Hypertension; Hypothyroidism; jd3 - PSHx: 15:55 Carotid Artery; jd3 - Immunization history:: Adult Immunizations up to date. - Social history:: Smoking status: Patient/guardian denies using tobacco, but has a distant history of tobacco abuse. Screenin:26 Abuse screen: Denies threats or abuse. Denies injuries from another. Nutritional kg screening: No deficits noted. Tuberculosis screening: No symptoms or risk factors identified. Fall Risk None identified. No fall in past 12 months (0 pts). No secondary diagnosis (0 pts). No IV (0 pts). Ambulatory Aid- Crutches/Cane/Walker (15 pts). Gait- Normal/Bed Rest/Wheelchair (0 pts) Mental Status- Oriented to own ability (0 pts). Total Stanford Fall Scale indicates No Risk (0-24 pts). Assessment: 16:01 Reassessment: Dr. Alaniz's office called stating that patient was diagnosed with ss tertiary syphilis and wants patient to be admitted to hospital through ER to hospitalist and be given IV PCN. 16:24 General: Appears in no apparent distress. comfortable, Behavior is calm, cooperative, kg appropriate for age, quiet. Pain: Denies pain. Neuro: No deficits noted. Level of Consciousness is awake, alert, obeys commands, Oriented to person, place, time, situation, Appropriate for age. Cardiovascular: No deficits noted. Heart tones S1 S2 Capillary refill < 3 seconds Pulses are 2+ in right radial artery, right dorsalis pedis artery, left radial artery and left dorsalis pedis artery. Respiratory: No deficits noted. Airway is patent Trachea midline Respiratory effort is even, unlabored, relaxed, Respiratory pattern is regular, symmetrical, Breath sounds are clear bilaterally. GI: No deficits noted. : No deficits noted. EENT: No deficits noted. Derm: No deficits noted. Musculoskeletal: No deficits noted. Vital Signs: 15:55 BP 150 / 85; Pulse 74; Resp 16 S; Temp 97.0(TE); Pulse Ox 97% on R/A; Weight 59.87 kg jd3 (R); Height 5 ft. 1 in. (154.94 cm) (R); Pain 0/10; 16:15 BP 137 / 84; Pulse 69; Resp 19; Pulse Ox 98% on R/A; kg 16:30 BP 145 / 82; Pulse 68; Resp 20; Pulse Ox 98% ; kg 16:45 BP 129 / 88; Pulse 62; Resp 20; Pulse Ox 97% on R/A; kg 17:33 BP 146 / 94; Pulse 67; Resp 17; Pulse Ox 100% on R/A; kg 18:00 BP 157 / 91; Pulse 65; Resp 20; Pulse Ox 100% ; kg 20:16 BP 157 / 98; Pulse 65; Resp 20; Pulse Ox 99% on R/A; kg 15:55 Body Mass Index 24.94 (59.87 kg, 154.94 cm) jd3 ED Course: 15:49 Patient arrived in ED. as 15:49 Jeremi Alaniz DO is Private Physician. as 15:50 [facility] Ruff [facility] 15:50 Jaret Swift MD is Attending Physician. [facility] 15:54 Triage completed. jd3 15:56 Arm band placed on. jd3 16:01 Mercedes Thomas, RN is Primary Nurse. kg 16:27 Patient has correct armband on for positive identification. Placed in gown. Bed in low kg position. Call light in reach. Side rails up X2. Adult w/ patient. 18:04 CT Head Brain wo Cont In Process Unspecified. EDMS 18:06 CT Chest Wo Con In Process Unspecified. EDMS 19:10 Inserted saline lock: 22 gauge in left forearm, using aseptic technique. kg 19:13 CBC with Diff Sent. kg 19:13 CMP Sent. kg 19:37 Goyo Magdaleno MD is Hospitalizing Provider. [facility] 20:43 Report given to Report given to Radhika DEGROOT Med Surg. kg 20:43 No provider procedures requiring assistance completed. IV is patent, is intact, with kg fluids infusing freely, with good blood return, Converted IV to saline lock on left forearm. Administered Medications: No medications were administered Outcome: 19:38 Decision to Hospitalize by Provider. [facility] 20:44 Admitted to Med/surg accompanied by tech, via wheelchair, with chart, Report called to lorena Garrido RN Med Surg 20:44 Condition: stable 20:44 Instructed on the need for admit, Demonstrated understanding of instructions. 21:05 Patient left the ED. bb Signatures: Dispatcher [employer] EDMS Dat Ruff PA PA jmm Martinez, Amelia as Ballard, Brenda, RN RN bb Smirch, Shelby, RN RN ss Davies, Jonathon, RN RN jd3 Graham, Kristen, RN ZANE kg Corrections: (The following items were deleted from the chart) 16:06 16:01 Reassessment: Dr. Alaniz's office called stating that patient was diagnosed with ss tertiary syphilis and wants patient to be admitted to hospital through ER to hospitalist and be given IV PCN ss
[2020-09-27 19:44] LABS: Blood Morphology Comment NOT SEEN (NOT SEEN); Platelet Estimate ADEQ; White Blood Cell Scan OK (OK)
[2020-09-27] MEDS ORDERED: ONDANSETRON 4 MG/2 ML VIAL IV PRN (21:00)
[2020-09-27] MEDS ORDERED: HYDRALAZINE HCL 20 MG/ML VIAL IV PRN (21:00)
[2020-09-27] MEDS: DOCUSATE NA 100 MG CAP PO SCH (21:46)
[2020-09-27] MEDS: ATORVASTATIN 40 MG TAB PO SCH (21:46)
[2020-09-28 06:06] LABS: Basophils % 0.8 % (0-1.3); Hematocrit 35.5 % (36.0-45.0); Lymphocytes % 14.6 % (15.3-44.8); MPV 7.3 fL (7.6-11.3); RBC Red Blood Cell Count 3.58 M/uL (3.86-4.86)
[2020-09-28 06:09] LABS: Protime INR 0.99
[2020-09-28 06:31] LABS: Albumin 3.4 g/dL (3.4-5.0); Bilirubin Total 0.6 mg/dL (0.2-1.0); Phosphorus 3.6 mg/dL (2.5-4.9); Protein, Total 7.8 g/dL (6.4-8.2); Thyroid Stimulating Hormone 1.62 uIU/mL (0.360-3.740)
[2020-09-28 06:32] LABS: Magnesium 1.8 mg/dL (1.8-2.4); Potassium 3.7 mmol/L (3.5-5.1)
[2020-09-28] MEDS: LEVOTHYROXINE SOD 0.088 MG TAB PO SCH (06:38)
[2020-09-28] MEDS: PANTOPRAZOLE 40MG TABLET PO SCH (06:38)
[2020-09-28] MEDS ORDERED: KCL 20 MEQ/100 mL IVPB 20 MEQ/100 ML BAG IV SCH (08:00)
[2020-09-28] MEDS: METOPROLOL TAR 50 MG TAB PO SCH (08:17)
[2020-09-28] MEDS: AMLODIPINE 5 MG TAB PO SCH (08:18)
[2020-09-28] MEDS: DOCUSATE NA 100 MG CAP PO SCH ×2 (08:18→20:52)
[2020-09-28 08:34] VITALS: BMI 34.0
[2020-09-28] MEDS ORDERED: MAGNESIUM SULFATE 1 gm IVPB 1 GM/100 ML BAG IV ONE ×2 (09:00)
[2020-09-28] MEDS ORDERED: POTASSIUM CL SA 10 MEQ TAB PO ONE ×2 (09:00)
[2020-09-28] MEDS ORDERED: PENICILLIN 5 MU in NA CHLORIDE 0.9% 100 ML IV ONE (09:02)
--- NOTE | 2020-09-28 09:41 | P.CNS ---
Date of Consult: 09/28/20 Primary Care Provider: Corbin Chief Complaint: ocular syphilis History of Present Illness: Patient is a 74-year-old female with a past medical history of thoracic aortic aneurysm measuring 4.5 cm, hypothyroidism, and CAD who presents to the ED from her statistics intern Dr. Arguello office for further workup for possible ocular syphilis. Per chart review one month ago the patient had pain to her left and reported decreased visual acuity and blurry vision along with floaters. Patient states the vision worsened when she tried to focus on certain objects such as using her computerized tablet. She was prescribed eyedrops from the statistics intern which improved her symptoms. Syphilis confirmed testing 2 serological testings: VDRL and FTA-ABS. Of note the patient does not have any pre-existing conditions that would result in a false-positive result on VDRL. Head CT showed no acute abnormalities. Patient denies experiencing any symptoms of primary syphilis such as chancre or ulcer formation. Also denies any symptoms of secondary symptoms such as a polymorphic rash or generalize nontender lymphadenopathy. Patient currently denies nausea, vomiting, diarrhea, shortness breath, chest pain. Patient reports pain to left eye along with a sinus headache. Allergies No Known Allergies Allergy (Verified 06/17/19 16:51) Home Medications: Aspirin Chewable [Aspirin Chewable*] 1 tab PO DAILY 06/17/19 Atorvastatin Calcium 40 mg PO DAILY 06/17/19 Clopidogrel Bisulfate [Plavix*] 75 mg PO DAILY 06/17/19 Pantoprazole [Protonix Tab*] 1 tab PO DAILY 06/17/19 Docusate [Colace Cap*] 100 mg PO BID cap 06/21/19 Losartan/Hydrochlorothiazide [Losartan-Hctz 100-12.5 mg Tab] 1 each PO DAILY #30 tablet 06/21/19 Polyethyl Gly 3350 [Glycolax*] 17 gm PO DAILY PRN udbot 06/21/19 Levothyroxine [Synthroid*] 1 tab PO DAILY 09/28/20 Losartan/Hydrochlorothiazide [Losartan-Hctz 100-12.5 mg Tab] 1 tab PO DAILY 09/28/20 Metoprolol Tartrate 100 mg PO DAILY 09/28/20 - Past Medical/Surgical History Diabetic: No -: CHF -: HTN -: Hypothyroidism -: CAD -: HLD -: syphilis -: Splenectomy -: PTCA 2015 -: endarterectomy Psychosocial/ Personal History: Sexual history: -patient states she was last sexually active about 3 years ago-reports 1 partner, her . Does state that her had multiple sexual partners and she is unaware of how many sexual partners he had or if he was ever diagnosed or showed symptoms of any sexually transmitted diseases. -patient reports a total of 3 sexual partners within her lifetime. -patient has 2 children, 1st with no complications or no signs of congenital syphilis. -patient states that she did not always use protection with her sexual partners. -patient denies ever being diagnosed with any other sexually transmitted diseases such as gonorrhea chlamydia. -patient has never been tested for HIV or any other sexually transmitted diseases. - Family History Mother Medical History: Hypertension, Cancer Notes: Jaw cancer Father Medical History: Hypertension - Social History Smoking Status: Former smoker Alcohol use: Yes CD- Drugs: No Caffeine use: Yes Place of Residence: Home Review of Systems General: Unremarkable Eyes: Pain, Vision Change ENT: Unremarkable Respiratory: Unremarkable Cardiovascular: Unremarkable Genitourinary: Unremarkable Physical Examination Temp Pulse Resp BP Pulse Ox 97.5 F 78 16 140/80 95 09/28/20 08:00 09/28/20 08:00 09/28/20 08:00 09/28/20 08:00 09/28/20 08:00 General: Alert, In no apparent distress HEENT: Atraumatic, Normocephalic, PERRLA, Mucous membr. moist/pink, EOMI, Sclerae nonicteric Neck: Supple, 2+ carotid pulse no bruit Respiratory: Clear to auscultation bilaterally, Normal air movement Cardiovascular: No edema, Normal pulses Capillary refill: <2 Seconds Gastrointestinal: Normal bowel sounds, Soft and benign Musculoskeletal: No clubbing, No swelling, No contractures Integumentary: No rashes, No breakdown, No significant lesion, No tenderness/swelling Neurological: Normal speech, Normal tone External genitalia: Normal Laboratory Data (last 24 hrs) 09/27/20 18:58: Sodium 136, Potassium 4.1, BUN 20 H, Creatinine 1.05, Glucose 91, Total Bilirubin 0.3, AST 16, ALT 20, Alkaline Phosphatase 93 09/27/20 18:58: WBC 6.40, Hgb 12.4, Hct 36.7, Plt Count 249 Conclusions/Impression: Antibiotics: IV penicillin G Start: 09/28 stop: 10/12 Assessment: -ocular syphilis -hypothyroidism -CAD -thoracic ascending aortic aneurysm measuring 4.5 cm -anemia -renal insufficiency Plan: -Syphilis confirmed testing 2 serological testings: VDRL and FTA-ABS. Of note the patient does not have any pre-existing conditions that would result in a false-positive result on VDRL. Head CT showed no acute abnormalities. Patient started on IV penicillin G- 25 million units Q 24 hr for the next 10-14 days. Continue to closely monitor labs/renal function closely. Recommend obtaining the and the BMP or CMP. -recommend transfer to [facility] as patient will need ophthalmology consult -screening test ordered include HIV -recommend also ordering gonorrhea and chlamydia testing -monitor patient's visual acuity daily -continue monitor for signs and symptoms of infection -medical management per primary team Plan of care discussed with Dr. Barros Thank you for consultation
[2020-09-28 09:50] LABS: Urine Appearance CLEAR (Clear); Urine Bilirubin NEGATIVE (Negative); Urine Blood NEGATIVE (Negative); Urine Color YELLOW (Yellow); Urine Glucose NEGATIVE (Negative); Urine Protein NEGATIVE (Negative); Urine Urobilinogen 0.2 mg/dL (0.2-1.0)
[2020-09-28 10:00] LABS: Urine Microscopic Reflex NO UMIC
[2020-09-28] MEDS: PENICILLIN 5 MU in NA CHLORIDE 0.9% 100 ML IV SCH ×3 (13:37→23:00)
[2020-09-28] MEDS: PREDNISOLONE 1% OPTH SOLN 5ML EACH EYE SCH ×3 (13:38→20:53)
--- NOTE | 2020-09-28 15:04 | CON ---
History Of Present Illness: Mrs. Dia is a 74-year-old black female, who presented to my office on 09/16/2020 with blurred vision OU. She was diagnosed with bilateral iritis and started on topical prednisolone. 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 She was sent to the emergency room yesterday by Dr. 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 Her past ocular history is positive for cataract surgery in each eye. Allergies: SHE HAS NO KNOWN DRUG ALLERGIES. Past Medical History: Positive for hypertension, arthritis, carotid surgery, thyroid disease, and high cholesterol. Home Medications: Losartan 100 mg, hydrochlorothiazide 12.5 mg daily, levothyroxine 88 mcg daily p.o., potassium 20 mEq daily p.o., metoprolol 100 mg daily p.o., atorvastatin 40 mg daily p.o., amlodipine 5 mg daily p.o., clopidogrel 75 mg daily p.o., aspirin 81 mg daily p.o., and a stool softener. Social History: She is a former smoker. Review of Systems: She is alert and oriented x3. Cardiovascular: HTN and hyperlipidemia ENT: negative Endocrine: hypothyroid GI: Negative : Negative Hematologic: Negative M/S: Positive for arthritis Skin: negative Neuro: negative Psychiatric: negative Respiratory: negative Ocular Examination: On ocular examination today, her near vision in each eye was 20/40. Her anterior chamber appeared normal. Lids are normal. Conjunctiva is clear. She has about 2+ arcus in both eyes. Her iris is normal and she has posterior chamber intraocular lens in each eye. She is orthophoric. Tactile IOP WNL. 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 I spoke with Dr. Magdaleno today and he is in agreement with obtaining lumbar puncture and initiating IV penicillin and consultation with Infectious Disease. Plan: The plan is the above plus to continue prednisolone acetate q.i.d. both eyes. She is to follow up in my office on the 04 of October. JORGE/CHON Voice ID: [id number] Report ID: [id number] [facility]
[2020-09-28] MEDS: ATORVASTATIN 40 MG TAB PO SCH (20:52)
--- NOTE | 2020-09-28 23:09 | CON ---
Date of Consultation: 09/28/2020 Reason: Positive syphilis serology. History: This is a very nice 74-year-old lady, who did not even really know she has this problem. S he has been , but apparently her has had multiple sexual partners over the years. She presented to Ophthalmology with complaints of visual disturbance seeing stars and flashing lights in her vision and blurry vision. 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 Workup reveal ed elevated KEATON level, ectatic region on the chest x-ray, and positive RPR with a 1-2 titer, which is a low titer. Given the positive RPR and the iritis, distinct possibility of ocular syphilis was mcclendon sed. She was referred to the Emergency Department. She had a CT scan of the brain, unremarkable. H IV test is pending. 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 She is now receiving high -dose IV penicillin 5 million units IV q.4. She is tolerating that well. No JH reaction after the i nitial infusion. I suspect she has had this problem for quite some time given the extremely low RPR titer. Consultation was requested. Past Medical History: The patient has established vascular disease, hypertension, hyperlipidemia, hy pothyroidism. Past Surgical History: She has had bilateral carotid endarterectomies. Home Medications: Aspirin, Plavix, Lipitor, Synthroid, losartan, thiazide, metoprolol, pantoprazole. Allergies: NONE. Social History: The patient is normally independent with activities of daily living. No memory diff iculties. No gait difficulties. Review of Systems: General: Good health. Eyes: As alluded to. Ears Nose Throat: Negative. Cardiovascular: As alluded to. Pulmonary: Negative. GI: Negative. : Negative. Musculoskeletal: Negative. Neurologic: As noted. Endocrine: Hypothyroidism. Hematologic: Negative. Physical Examination: Vital Signs: 97.4, 60, 16, 122/78. General: Pleasant lady, lying in bed, in no distress. Heart: Sinus rhythm. Status post bilateral carotid endarterectomies. Lungs: Clear. Abdomen: Soft. Bowel sounds present. HEENT: Pupils very miotic, but reactive, difficult to tell if they accommodate more than they react. Ocular motion full. Visual farooq full. Facial strength and sensation normal. Tongue protrudes e venly. Soft palate elevates symmetrically bilaterally. Extremities: Strength full. Sensation intact. Reflexes 1/4. Toes are downgoing. Pertinent Laboratory Data: White count normal, hemoglobin 11.8. PT and PTT normal. Sodium 135, cre atinine 0.87, KEATON level was 85, and RPR was 1 to 2, but the FTA was positive. 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 I as a neurologist think of syphilis as either a primary infection, neurologic symptoms can occur with meningeal and meningovascular syphilis, which is another form of chronic syphilis and then tabe s dorsalis and general paresis I tend to think of as parenchymatous syphilis, so CSF will definitely need to be analyzed to help guide future therapy, but treatment for ocular syphilis is the same as ne urosyphilis, which is a 4 million units penicillin IV q.4 for 14 days, 21 days if HIV comes back posi tive. The LP is on hold as she had been on aspirin and Plavix in combination. She has already recei trina the penicillin and the titer is so low that the pretreatment with penicillin may potentially infl uence the CSF results, but since it is going to be a rather prolonged wait before the CSF can be safe ly analyzed, I think it is reasonable to simply continue the IV penicillin. The thoracic aortic aneu rysm will need to be monitored and would be reasonable given her probable prolonged hospital stay to have a cardiology opinion while she is here. The CSF should be sent for routine glucose protein cell count, CSF VDRL, FTA, and I would check oligoclonal bands as well, they can be positive in parenchym atous as well as meningovascular syphilis if the central nervous system is involved. Thank you for the consult. We will continue to follow with you. ODIN/CHON Voice ID: [id number] Report ID: [id number]
[2020-09-29] MEDS: PENICILLIN 5 MU in NA CHLORIDE 0.9% 100 ML IV SCH ×2 (04:15→08:15)
[2020-09-29] MEDS ORDERED: MAGNESIUM SULFATE 1 gm IVPB 1 GM/100 ML BAG IV ONE (06:28)
[2020-09-29] MEDS: LEVOTHYROXINE SOD 0.088 MG TAB PO SCH (06:41)
[2020-09-29] MEDS: PANTOPRAZOLE 40MG TABLET PO SCH (06:41)
[2020-09-29] MEDS: METOPROLOL TAR 50 MG TAB PO SCH (08:16)
[2020-09-29] MEDS: AMLODIPINE 5 MG TAB PO SCH (08:16)
[2020-09-29] MEDS: PREDNISOLONE 1% OPTH SOLN 5ML EACH EYE SCH ×3 (08:16→20:41)
[2020-09-29] MEDS: DOCUSATE NA 100 MG CAP PO SCH ×2 (08:16→20:40)
--- NOTE | 2020-09-29 09:48 | P.PN ---
Subjective Date of Service: 09/29/20 Primary Care Provider: Corbin Chief Complaint: ocular syphilis Patient seen examined at bedside, doing well. Started antibiotics yesterday, a denies nausea, vomiting, abdominal pain. Review of Systems 10-point ROS is otherwise unremarkable Physical Examination - Vital Signs Temperature: 97.1 F Blood Pressure: 114/71 Pulse: 69 Respirations: 18 Pulse Ox (%): 94 Assessment And Plan - Plan General: Alert, In no apparent distress HEENT: Atraumatic, Normocephalic, PERRLA, Mucous membr. moist/pink, EOMI, Sclerae nonicteric Neck: Supple, 2+ carotid pulse no bruit Respiratory: Clear to auscultation bilaterally, Normal air movement Cardiovascular: No edema, Normal pulses Capillary refill: <2 Seconds Gastrointestinal: Normal bowel sounds, Soft and benign Musculoskeletal: No clubbing, No swelling, No contractures Integumentary: No rashes, No breakdown, No significant lesion, No tenderness/swelling Neurological: Normal speech, Normal tone External genitalia: Normal Laboratory Data (last 24 hrs) Conclusions/Impression: Antibiotics: IV penicillin G Start: 09/28 stop: 10/12 Assessment: -ocular syphilis -hypothyroidism -CAD -thoracic ascending aortic aneurysm measuring 4.5 cm--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 Of note the patient does not have any pre-existing conditions that would result in a false-positive result on VDRL. Head CT showed no acute abnormalities. Recommend obtaining on PE to confirm neurosyphilis. Patient started on IV penicillin G- 25 million units Q 24 hr for the next 10-14 days. Continue to closely monitor labs/renal function closely. Recommend obtaining daily BMP or CMP. -patient started on probiotic -ophthalmology on board -screening test ordered include HIV--pending -recommend also ordering gonorrhea and chlamydia testing -monitor patient's visual acuity daily -continue monitor for signs and symptoms of infection -medical management per primary team Plan of care discussed with Dr. Barros Thank you for consultation
[2020-09-29] MEDS ORDERED: PENICILLIN 2.5 MU in NA CHLORIDE 0.9% 100 ML IV SCH (13:00)
[2020-09-29] MEDS: NA CHLORIDE IV SCH ×3 (13:37→20:39)
[2020-09-29] MEDS: PENICILLIN MU IV SCH ×3 (13:37→20:39)
[2020-09-29] MEDS: LACTOBACILLUS/ACIDOPHILUS TAB PO SCH (20:40)
[2020-09-29] MEDS: ATORVASTATIN 40 MG TAB PO SCH (20:40)
[2020-09-30] MEDS: NA CHLORIDE IV SCH ×6 (01:01→20:20)
[2020-09-30] MEDS: PENICILLIN MU IV SCH ×6 (01:01→20:20)
--- NOTE | 2020-09-30 03:50 | P.PN ---
Subjective Date of Service: 09/28/20 Patient is doing well with no new complaints. Vision is improving. Continue with steroid drops. Continue with IV antibiotic therapy. Intervention Radiology does not want to LP until after aspirin and Plavix has been held for 5 days. Arrange for this to be done on Saturday. I do not think patient should be discharged on lithium of diagnosis as to whether or not patient has neurosyphilis. Review of Systems 10-point ROS is otherwise unremarkable Physical Examination - Vital Signs Temperature: 97.6 F Blood Pressure: 117/71 Pulse: 74 Respirations: 18 Pulse Ox (%): 90 - Physical Exam General: Alert, In no apparent distress, Oriented x3 HEENT: Atraumatic, PERRLA, EOMI Neck: Supple, JVD not distended Respiratory: Clear to auscultation bilaterally, Normal air movement Cardiovascular: Regular rate/rhythm, Normal S1 S2, No murmurs Gastrointestinal: Normal bowel sounds, Soft and benign, Non-distended, No tenderness Musculoskeletal: No tenderness Integumentary: No rashes Neurological: Normal speech, Normal strength at 5/5 x4 extr, Normal tone, Sensation intact, Cranial nerves 3-12 intact, Normal affect Lymphatics: No axilla or inguinal lymphadenopathy - Studies Medications List Reviewed: Yes Assessment & Plan - Problems (Diagnosis) (1) Tertiary syphilis Current Visit: Yes Status: Acute (2) Syphilis Current Visit: Yes Status: Acute (3) CAD (coronary artery disease) Current Visit: Yes Status: Chronic Qualifiers: Coronary Disease-Associated Artery/Lesion type: unspecified vessel or lesion type [place] vs. transplanted heart: [place] heart Associated angina: without angina Qualified Code(s): I25.10 - Atherosclerotic heart disease of [place] cor onary artery without angina pectoris (4) HLD (hyperlipidemia) Current Visit: Yes Status: Chronic Qualifiers: Hyperlipidemia type: unspecified Qualified Code(s): E78.5 - Hyperlipidemia, unspecified (5) HTN (hypertension) Current Visit: Yes Status: Chronic Qualifiers: Hypertension type: essential hypertension Qualified Code(s): I10 - Essential (primary) hypertension (6) Hypothyroidism Current Visit: Yes Status: Chronic Qualifiers: Hypothyroidism type: unspecified Qualified Code(s): E03.9 - Hypothyroidism, unspecified (7) Thoracic aortic aneurysm Current Visit: Yes Status: Chronic Qualifiers: Presence of rupture: without rupture Qualified Code(s): I71.2 - Thoracic aortic aneurysm, without rupture - Plan Plan: 1. Appreciate Ophthalmology and Neurology consultation 2. LP arrange for Saturday 3. IV penicillin; arrange for PICC line placement 4. Monitor vision 5. Out of bed and ambulate 6. GI and DVT prophylaxis Discharge Plan: Home Plan to discharge in: Greater than 2 days - Advance Directives Does patient have a Living Will: No Does patient have a Durable POA for Healthcare: No - Code Status/Comfort Care Code Status Assessed: Yes Code Status: Full Code Critical Care: No Time Spent Managing PTS Care (In Minutes): 35
--- NOTE | 2020-09-30 03:51 | P.PN ---
Date of Service: 09/29/20 Subjective Patient doing well with no new complaints. Continue with IV penicillin daily and PICC line placement. Lumbar puncture on Saturday Review of Systems 10-point ROS is otherwise unremarkable Physical Examination - Vital Signs Reviewed - Physical Exam General: Alert, In no apparent distress, Oriented x3 Respiratory: Clear to auscultation bilaterally, Normal air movement Cardiovascular: Regular rate/rhythm, Normal S1 S2, No murmurs Gastrointestinal: Normal bowel sounds, Soft and benign, Non-distended, No tenderness Neurological: Normal speech, Normal strength at 5/5 x4 extr, Normal tone, Sensation intact, Cranial nerves 3-12 intact, Normal affect Assessment & Plan - Problems (Diagnosis) (1) Tertiary syphilis Current Visit: Yes Status: Acute (2) Syphilis Current Visit: Yes Status: Acute (3) CAD (coronary artery disease) Current Visit: Yes Status: Chronic Qualifiers: Coronary Disease-Associated Artery/Lesion type: unspecified vessel or lesion type [place] vs. transplanted heart: [place] heart Associated angina: without angina Qualified Code(s): I25.10 - Atherosclerotic heart disease of [place] coronary artery without angina pectoris (4) HLD (hyperlipidemia) Current Visit: Yes Status: Chronic Qualifiers: Hyperlipidemia type: unspecified Qualified Code(s): E78.5 - Hyperlipidemia, unspecified (5) HTN (hypertension) Current Visit: Yes Status: Chronic Qualifiers: Hypertension type: essential hypertension Qualified Code(s): I10 - Essential (primary) hypertension (6) Hypothyroidism Current Visit: Yes Status: Chronic Qualifiers: Hypothyroidism type: unspecified Qualified Code(s): E03.9 - Hypothyroidism, unspecified (7) Thoracic aortic aneurysm Current Visit: Yes Status: Chronic Qualifiers: Presence of rupture: without rupture Qualified Code(s): I71.2 - Thoracic aortic aneurysm, without rupture - Plan Plan: Continue with plan of care as mentioned below 1. Appreciate Ophthalmology and Neurology consultation 2. LP arranged for Saturday 3. IV penicillin; arrange for PICC line placement 4. Monitor vision 5. Out of bed and ambulate 6. GI and DVT prophylaxis
[2020-09-30] MEDS: LEVOTHYROXINE SOD 0.088 MG TAB PO SCH (05:49)
[2020-09-30] MEDS: PANTOPRAZOLE 40MG TABLET PO SCH (05:49)
[2020-09-30 06:31] LABS: Magnesium 2.2 mg/dL (1.8-2.4); Potassium 3.9 mmol/L (3.5-5.1)
[2020-09-30] MEDS ORDERED: POTASSIUM CL SA 10 MEQ TAB PO ONE (09:00)
[2020-09-30] MEDS: DOCUSATE NA 100 MG CAP PO SCH ×3 (09:00→20:23)
[2020-09-30] MEDS: METOPROLOL TAR 50 MG TAB PO SCH (09:10)
[2020-09-30] MEDS: AMLODIPINE 5 MG TAB PO SCH (09:11)
[2020-09-30] MEDS: LACTOBACILLUS/ACIDOPHILUS TAB PO SCH ×2 (09:12→20:20)
[2020-09-30] MEDS: PREDNISOLONE 1% OPTH SOLN 5ML EACH EYE SCH ×3 (09:13→20:21)
[2020-09-30 15:30] LABS: HIV AG/AB 4TH GEN Non-reactive (Non-reactive)
[2020-09-30 15:30] LABS: HIV AG/AB 4TH GEN Non-reactive (Non-reactive)
[2020-09-30] MEDS: ATORVASTATIN 40 MG TAB PO SCH (20:20)
[2020-10-01] MEDS: PENICILLIN MU IV SCH ×6 (00:39→20:06)
[2020-10-01] MEDS: NA CHLORIDE IV SCH ×6 (00:39→20:06)
[2020-10-01] MEDS: LEVOTHYROXINE SOD 0.088 MG TAB PO SCH (05:26)
[2020-10-01] MEDS: PANTOPRAZOLE 40MG TABLET PO SCH (05:26)
[2020-10-01 07:21] LABS: Potassium 4.1 mmol/L (3.5-5.1)
[2020-10-01] MEDS: DOCUSATE NA 100 MG CAP PO SCH ×2 (09:00→20:07)
[2020-10-01] MEDS: AMLODIPINE 5 MG TAB PO SCH (09:00)
[2020-10-01] MEDS: METOPROLOL TAR 50 MG TAB PO SCH (10:07)
[2020-10-01] MEDS: LACTOBACILLUS/ACIDOPHILUS TAB PO SCH ×2 (10:07→20:06)
[2020-10-01] MEDS: PREDNISOLONE 1% OPTH SOLN 5ML EACH EYE SCH ×3 (10:09→20:06)
--- NOTE | 2020-10-01 19:39 | PN ---
Date of Progress Note: 10/01/2020 Reason: Meningovascular syphilis. Interval History: The patient is stable, receiving her IV penicillin. No difficulties receiving dank t medication. Renal function normal. HIV negative. No new problems. Physical Examination: Vital Signs: On exam, she is afebrile. Vitals are stable. General: She is awake, alert, oriented. HEENT: Pupils miotic, reactive. Ocular motion full. [place] full. Facial strength and sensation ar e normal. Tongue protrudes evenly. Soft palate elevates symmetrically bilaterally. Neurologic: Extremity strength full. Sensation intact. Reflexes suppressed, but symmetric. Cerebe llar exam demonstrates no ataxia. Pertinent Laboratory Data: As alluded. Impression: Meningovascular syphilis. Plan: CSF analysis on Saturday. Would send CSF for studies as recommended in the initial consult, teressa murray order. We will follow with you. EVANS Voice ID: [id number] Report ID: [id number]
[2020-10-01] MEDS: ATORVASTATIN 40 MG TAB PO SCH (20:06)
[2020-10-02] MEDS: PENICILLIN MU IV SCH ×6 (01:03→21:20)
[2020-10-02] MEDS: NA CHLORIDE IV SCH ×6 (01:03→21:20)
[2020-10-02] MEDS: LEVOTHYROXINE SOD 0.088 MG TAB PO SCH (05:27)
[2020-10-02] MEDS: PANTOPRAZOLE 40MG TABLET PO SCH (05:27)
[2020-10-02] MEDS: LACTOBACILLUS/ACIDOPHILUS TAB PO SCH ×2 (08:48→21:20)
[2020-10-02] MEDS: DOCUSATE NA 100 MG CAP PO SCH ×2 (08:48→21:20)
[2020-10-02] MEDS: AMLODIPINE 5 MG TAB PO SCH (08:48)
[2020-10-02] MEDS: METOPROLOL TAR 50 MG TAB PO SCH (08:48)
[2020-10-02] MEDS: PREDNISOLONE 1% OPTH SOLN 5ML EACH EYE SCH ×3 (08:49→21:28)
[2020-10-02] MEDS: ATORVASTATIN 40 MG TAB PO SCH (21:20)
--- NOTE | 2020-10-02 22:25 | RAD REPORT ---
EXAM DESCRIPTION: RAD - Chest Single View - 10/02/2020 12:58 am CLINICAL HISTORY: The patient is 74 years old and is Female; PICC placement in the right arm TECHNIQUE: Frontal view of the chest. COMPARISON: No relevant prior studies available. FINDINGS: Lungs: Unremarkable. No consolidation. Pleural space: Unremarkable. No pneumothorax. Heart: Unremarkable. Mediastinum: Unremarkable. Bones/joints: Unremarkable. Tubes, lines and devices: Right PICC with tip in the SVC. IMPRESSION: No acute findings in the chest. Electronically signed by: Alhaji Reno MD 10/02/2020 1:11 AM CDT Due to temporary technical issues with the PACS/Fluency reporting system, reports are being signed by the in house radiologists without review as a courtesy to insure prompt reporting. The interpreting radiologist is fully responsible for the content of the report
--- NOTE | 2020-10-03 00:34 | P.PN ---
Date of Service: 09/30/20 Subjective Patient doing well with no new complaints. Vision is stable. Patient actually is feeling much better. At this time, we will continue with IV penicillin daily and PICC line placement. Lumbar puncture on Saturday Review of Systems 10-point ROS is otherwise unremarkable Physical Examination - Vital Signs Reviewed - Physical Exam General: Alert, In no apparent distress, Oriented x3 Respiratory: Clear to auscultation bilaterally, Normal air movement Cardiovascular: Regular rate/rhythm, Normal S1 S2, No murmurs Gastrointestinal: Normal bowel sounds, Soft and benign, Non-distended, No tenderness Neurological: Normal speech, Normal strength at 5/5 x4 extr, Normal tone, Sensa tion intact, Cranial nerves 3-12 intact, Normal affect Assessment & Plan - Problems (Diagnosis) (1) Ocular syphilis Current Visit: Yes Status: Acute (2) r/o Neurosyphilis Current Visit: Yes Status: Acute (3) CAD (coronary artery disease) Current Visit: Yes Status: Chronic Qualifiers: Coronary Disease-Associated Artery/Lesion type: unspecified vessel or lesion type [place] vs. transplanted heart: [place] heart Associated angina: without angina Qualified Code(s): I25.10 - Atherosclerotic heart disease of [place] coronary artery without angina pectoris (4) HLD (hyperlipidemia) Current Visit: Yes Status: Chronic Qualifiers: Hyperlipidemia type: unspecified Qualified Code(s): E78.5 - Hyperlipidemia, unspecified (5) HTN (hypertension) Current Visit: Yes Status: Chronic Qualifiers: Hypertension type: essential hypertension Qualified Code(s): I10 - Essential (primary) hypertension (6) Hypothyroidism Current Visit: Yes Status: Chronic Qualifiers: Hypothyroidism type: unspecified Qualified Code(s): E03.9 - Hypothyroidism, unspecified (7) Thoracic aortic aneurysm Current Visit: Yes Status: Chronic Qualifiers: Presence of rupture: without rupture Qualified Code(s): I71.2 - Thoracic aortic aneurysm, without rupture - Plan Plan: Continue with plan of care as mentioned below 1. Appreciate Ophthalmology and Neurology consultation 2. LP arranged for Saturday 3. IV penicillin; arrange for PICC line placement and outpatient penicillin 4. Monitor vision 5. Out of bed and ambulate 6. GI and DVT prophylaxis
--- NOTE | 2020-10-03 00:39 | P.PN ---
Date of Service: 10/01/20 Subjective Patient continues to do well. No new changes. PICC line to be placed today. Arranging for outpatient IV antibiotics. Lumbar puncture Saturday. Review of Systems 10-point ROS is otherwise unremarkable Physical Examination - Vital Signs Reviewed - Physical Exam General: Alert, In no apparent distress, Oriented x3 Respiratory: Clear to auscultation bilaterally, Normal air movement Cardiovascular: Regular rate/rhythm, Normal S1 S2, No murmurs Gastrointestinal: Normal bowel sounds, Soft and benign, Non-distended, No tenderness Neurological: Normal speech, Normal strength at 5/5 x4 extr, Normal tone, Sensation intact, Cranial nerves 3-12 intact, Normal affect Assessment & Plan - Problems (Diagnosis) (1) Ocular syphilis Current Visit: Yes Status: Acute (2) r/o Neurosyphilis Current Visit: Yes Status: Acute (3) CAD (coronary artery disease) Current Visit: Yes Status: Chronic Qualifiers: Coronary Disease-Associated Artery/Lesion type: unspecified vessel or lesion type [place] vs. transplanted heart: [place] heart Associated angina: without angina Qualified Code(s): I25.10 - Atherosclerotic heart disease of [place] coronary artery without angina pectoris (4) HLD (hyperlipidemia) Current Visit: Yes Status: Chronic Qualifiers: Hyperlipidemia type: unspecified Qualified Code(s): E78.5 - Hyperlipidemia, unspecified (5) HTN (hypertension) Current Visit: Yes Status: Chronic Qualifiers: Hypertension type: essential hypertension Qualified Code(s): I10 - Ess ential (primary) hypertension (6) Hypothyroidism Current Visit: Yes Status: Chronic Qualifiers: Hypothyroidism type: unspecified Qualified Code(s): E03.9 - Hypothyroidism, unspecified (7) Thoracic aortic aneurysm Current Visit: Yes Status: Chronic Qualifiers: Presence of rupture: without rupture Qualified Code(s): I71.2 - Thoracic aortic aneurysm, without rupture - Plan Plan: Continue with plan of care as mentioned below 1. Appreciate Ophthalmology and Neurology consultation; awaiting for workup to be completed 2. LP arranged for Saturday; patient was on aspirin so lumbar puncture on hold per Radiology until Saturday; VDRL and FTA-antibodies(fluorescent treponemal antibody absorption) pending once LP completed 3. IV penicillin 4 million units daily; PICC line placement today 4. Patient's vision is back to baseline. Clinically doing well. 5. Out of bed and ambulate 6. GI and DVT prophylaxis
--- NOTE | 2020-10-03 00:44 | P.PN ---
Date of Service: 10/02/20 Subjective Patient is clinically doing well. Awaiting for lumbar puncture tomorrow. VDRL antibodies and FTA-antibodies are pending; outpatient IV penicillin to be completed (10/01 progress note): Patient continues to do well. No new changes. PICC line to be placed today. Arranging for outpatient IV antibiotics. Lumbar puncture Saturday. Review of Systems 10-point ROS is otherwise unremarkable Physical Examination - Vital Signs Reviewed - Physical Exam General: Alert, In no apparent distress, Oriented x3 Respiratory: Clear to auscultation bilaterally, Normal air movement Cardiovascular: Regular rate/rhythm, Normal S1 S2, No murmurs Gastrointestinal: Normal bowel sounds, Soft and benign, Non-distended, No tenderness Neurological: Normal speech, Normal strength at 5/5 x4 extr, Normal tone, Sensation intact, Cranial nerves 3-12 intact, Normal affect Assessment & Plan - Problems (Diagnosis) (1) Ocular syphilis Current Visit: Yes Status: Acute (2) r/o Neurosyphilis Current Visit: Yes Status: Acute (3) CAD (coronary artery disease) Current Visit: Yes Status: Chronic Qualifiers: Coronary Disease-Associated Artery/Lesion type: unspecified vessel or lesion type [place] vs. transplanted heart: [place] heart Associated angina: without angina Qualified Code(s): I25.10 - Atherosclerotic heart disease of [place] coronary artery without angina pectoris (4) HLD (hyperlipidemia) Current Visit: Yes Status: Chronic Qualifiers: Hyperlipidemia type: unspecified Qualified Code(s): E78.5 - Hyperlipidemia, unspecified (5) HTN (hypertension) Current Visit: Yes Status: Chronic Qualifiers: Hypertension type: essential hypertension Qualified Code(s): I10 - Essential (primary) hypertension (6) Hypothyroidism Current Visit: Yes Status: Chronic Qualifiers: Hypothyroidism type: unspecified Qualified Code(s): E03.9 - Hypothyroidism, unspecified (7) Thoracic aortic aneurysm Current Visit: Yes Status: Chronic Qualifiers: Presence of rupture: without rupture Qualified Code(s): I71.2 - Thoracic aortic aneurysm, without rupture - Plan Plan: Continue with plan of care as mentioned below 1. Appreciate Ophthalmology and Neurology consultation; awaiting for workup to be completed tomorrow 2. LP arranged for Saturday; patient was on aspirin so lumbar puncture on hold per Radiology until tomorrow; VDRL and FTA-antibodies(fluorescent treponemal antibody absorption) pending once LP completed; start IV fluids to decrease risk of post LP headache 3. IV penicillin 4 million units daily; PICC line placement yesterday 4. Patient's vision is back to baseline. Clinically doing well. 5. Out of bed and ambulate 6. GI and DVT prophylaxis Plan to discharge tomorrow once LP are completed
--- NOTE | 2020-10-03 00:46 | P.PN ---
Date of Service: 10/02/20 Notified by case management that patient does not have coverage for outpatient antibiotics unless at a penitentiary facility. Arrangements for penitentiary facility pending.
[2020-10-03] MEDS: NA CHLORIDE IV SCH ×6 (00:54→20:53)
[2020-10-03] MEDS: PENICILLIN MU IV SCH ×6 (00:54→20:53)
[2020-10-03] MEDS: NA CHLORIDE 0.9% 1,000 ML IV SCH ×2 (00:54→11:00)
[2020-10-03] MEDS: PANTOPRAZOLE 40MG TABLET PO SCH (05:36)
[2020-10-03] MEDS: LEVOTHYROXINE SOD 0.088 MG TAB PO SCH (05:36)
--- NOTE | 2020-10-03 05:56 | P.PN ---
Subjective Date of Service: 10/03/20 Primary Care Provider: Dr. Alaniz Chief Complaint: ocular syphilis Subjective: Other (Patient doing well. No complaints noted.) Physical Examination - Vital Signs Temperature: 97.4 F Blood Pressure: 128/77 Pulse: 88 Respirations: 19 Pulse Ox (%): 93 - Studies Medications List Reviewed: Yes Assessment & Plan Discharge Plan: Other (nursing home facility) Plan to discharge in: 24 Hours Physician Review Additional Text: CT Head: FINDINGS: An intracranial bleed is not seen . The ventricles are normal in caliber. No extra-axial fluid collection is noted. Empty sella turcica is Mild to moderate low-density areas within periventricular, deep and subcortical white matter likely represent ischemic changes secondary to small vessel disease. Fluid within the sinuses/ mastoids is not seen. IMPRESSION: No acute intracranial abnormality is seen. CT Scan: FINDINGS: The evaluation of mediastinum, bethany and vessels is limited secondary to lack of IV contrast administration. Minimal ground-glass opacities within the lungs. Otherwise, lungs are clear Ascending thoracic aorta has an AP diameter 4.5 centimeters. A pleural effusion is not present. No pericardial effusion IMPRESSION: 4.5 centimeter aneurysm ascending thoracic aorta Physical exam: General: Patient alert, cooperative. Heart: Regular rate and rhythm Lungs: Clear to auscultation Abdomen: Soft nontender nondistended Extremities: Good range of motion. No focal deficits. Impression: Ocular syphilis CAD Hypertension Hyperlipidemia Hypothyroidism Thoracic aortic aneurysm Plan: Ocular syphilis: Continue with penicillin for at least 14 days. Patient to have lumbar tap to rule out neurosyphilis. If positive will need 21 days. Currently on penicillin 4,000,000 units every 4 hours IV. Social work working to get pa tient to a skilled facility to continue treatment. Options to go home will be too costly. PICC line in place. Anticipate approval for possible skilled placement in the next 48 hours. CAD: Hold aspirin and Plavix in preparation for lumbar tap. Hypertension: Continue Norvasc and metoprolol Hyperlipidemia: Continue statin medication Hypothyroidism: Continue thyroid medication Thoracic aortic aneurysm: 4.5 cm aneurysm noted. This can be followed up as an outpatient. DVT prophylaxis: Currently on hold due to lumbar tap. CODE STATUS: Full code [facility] [id number] minutes: Skilled placement for IV tabetic therapy to be arranged Time Spent Managing Pts Care (In Minutes): 55
[2020-10-03 06:09] LABS: Absolute Lymphocytes (CBC) 1.1 K/uL (0.7-4.9); Basophils % 0.6 % (0-1.3); Hematocrit 24.8 % (36.0-45.0); Lymphocytes % 14.7 % (15.3-44.8); MPV 7.2 fL (7.6-11.3); RBC Red Blood Cell Count 2.51 M/uL (3.86-4.86)
[2020-10-03 06:14] LABS: BUN Blood Urea Nitrogen 6 mg/dL (7-18); Bicarbonate 29 mmol/L (21-32); Glucose Level 84 mg/dL (74-106); Magnesium 1.8 mg/dL (1.8-2.4); Potassium 3.4 mmol/L (3.5-5.1); Sodium Level 142 mmol/L (136-145)
[2020-10-03] MEDS ORDERED: MAGNESIUM SULFATE 1 gm IVPB 1 GM/100 ML BAG IV ONE (06:37)
[2020-10-03] MEDS: ACETAMINOPHEN 500 MG TAB PO PRN (06:55)
[2020-10-03 07:06] LABS: Blood Morphology Comment NOTED (NOT SEEN); Platelet Estimate ADEQ; White Blood Cell Scan OK (OK)
[2020-10-03 07:07] LABS: Rouleau SLIGHT
[2020-10-03] MEDS: DOCUSATE NA 100 MG CAP PO SCH ×2 (09:00→20:25)
[2020-10-03] MEDS: METOPROLOL TAR 50 MG TAB PO SCH (09:08)
[2020-10-03] MEDS: LACTOBACILLUS/ACIDOPHILUS TAB PO SCH ×2 (09:08→20:53)
[2020-10-03] MEDS: AMLODIPINE 5 MG TAB PO SCH (09:08)
[2020-10-03] MEDS: PREDNISOLONE 1% OPTH SOLN 5ML EACH EYE SCH ×3 (09:11→20:53)
--- NOTE | 2020-10-03 10:55 | P.PN ---
Subjective Date of Service: 10/03/20 Primary Care Provider: Corbin Chief Complaint: ocular syphilis Patient seen examined at bedside, tolerating antibiotics well. No nausea, vomiting, diarrhea. Hemodynamically stable, no leukocytosis noted on most recent labs. Review of Systems 10-point ROS is otherwise unremarkable Physical Examination - Vital Signs Temperature: 97.9 F Blood Pressure: 131/74 Pulse: 78 Respirations: 15 Pulse Ox (%): 93 - Studies Laboratory Last Values WBC 6.40 K/uL (4.3-10.9) 09/27/20 18:58 RBC 3.74 M/uL (3.86-4.86) L 09/27/20 18:58 Hgb 12.4 g/dL (12.0-15.0) 09/27/20 18:58 Hct 36.7 % (36.0-45.0) 09/27/20 18:58 MCV 98.2 fL (80-100) 09/27/20 18:58 MCH 33.1 pg (27.0-35.0) 09/27/20 18:58 MCHC 33.7 g/dL (32.0-36.0) 09/27/20 18:58 RDW 14.4 % (12.1-15.2) 09/27/20 18:58 Plt Count 249 K/uL (152-406) 09/27/20 18:58 MPV 7.4 fL (7.6-11.3) L 09/27/20 18:58 Neutrophils % 64.4 % (41.7-73.7) 09/27/20 18:58 Lymphocytes % 16.5 % (15.3-44.8) 09/27/20 18:58 Monocytes % 16.2 % (3.3-12.3) H 09/27/20 18:58 Eosinophils % 2.3 % (0-4.4) 09/27/20 18:58 Basophils % 0.6 % (0-1.3) 09/27/20 18:58 Absolute Neutrophils 4.1 K/uL (1.8-8.0) 09/27/20 18:58 Absolute Lymphocytes 1.1 K/uL (0.7-4.9) 09/27/20 18:58 Absolute Monocytes 1.0 K/uL (0.1-1.3) 09/27/20 18:58 Absolute Eosinophils 0.1 K/uL (0-0.5) 09/27/20 18:58 Absolute Basophils 0.0 K/uL (0-0.5) 09/27/20 18:58 Platelet Estimate Adeq 09/27/20 18:58 Morphology Comment Not seen (NOT SEEN) 09/27/20 18:58 Sodium 136 mmol/L (136-145) 09/27/20 18:58 Potassium 4.1 mmol/L (3.5-5.1) 09/27/20 18:58 Chloride 98 mmol/L (98-107) 09/27/20 18:58 Carbon Dioxide 33 mmol/L (21-32) H 09/27/20 18:58 BUN 20 mg/dL (7-18) H 09/27/20 18:58 Creatinine 1.05 mg/dL (0.55-1.3) 09/27/20 18:58 Estimated GFR 62 mL/min (=/>90) L 09/27/20 18:58 Glucose 91 mg/dL (74-106) 09/27/20 18:58 Calcium 9.4 mg/dL (8.5-10.1) 09/27/20 18:58 Total Bilirubin 0.3 mg/dL (0.2-1.0) 09/27/20 18:58 AST 16 U/L (15-37) 09/27/20 18:58 ALT 20 U/L (12-78) 09/27/20 18:58 Alkaline Phosphatase 93 U/L (45-117) 09/27/20 18:58 Serum Total Protein 8.8 g/dL (6.4-8.2) H 09/27/20 18:58 Albumin 4.0 g/dL (3.4-5.0) 09/27/20 18:58 Globulin 4.8 g/dL (2.3-3.5) H 09/27/20 18:58 Albumin/Globulin Ratio 0.8 (1.1-1.8) L 09/27/20 18:58 Smear Scan Ok (OK) 09/27/20 18:58 Medications List Reviewed: Yes Assessment And Plan - Plan General: Alert, In no apparent distress HEENT: Atraumatic, Normocephalic, PERRLA, Mucous membr. moist/pink, EOMI, Sclerae nonicteric Neck: Supple, 2+ carotid pulse no bruit Respiratory: Clear to auscultation bilaterally, Normal air movement Cardiovascular: No edema, Normal pulses Capillary refill: <2 Seconds Gastrointestinal: Normal bowel sounds, Soft and benign Musculoskeletal: No clubbing, No swelling, No contractures Integumentary: No rashes, No breakdown, No significant lesion, No tenderness/swelling Neurological: Normal speech, Normal tone External genitalia: Normal Laboratory Data (last 24 hrs) Conclusions/Impression: Antibiotics: IV penicillin G Start: 09/28 stop: 10/12 Assessment: -ocular syphilis -hypothyroidism -CAD -thoracic ascending aortic aneurysm measuring 4.5 cm--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 Of note the patient does not have any pre-existing conditions that would result in a false-positive result on VDRL. Head CT showed no acute abnormalities. Recommend obtaining on PE to confirm neurosyphilis. Patient started on IV penicillin G- 25 million units Q 24 hr for the next 10-14 days. Continue to closely monitor labs/renal function closely. Recommend obtaining daily BMP or CMP. Awaiting a lumbar puncture results to confirm neurosyphilis. -patient started on probiotic -ophthalmology on board -neurology on board -screening test ordered include HIV: negative -recommend also ordering gonorrhea and chlamydia testing -monitor patient's visual acuity daily--back to baseline. -continue monitor for signs and symptoms of infection -medical management per primary team Plan of care discussed with Dr. Barros Thank you for consultation
[2020-10-03] MEDS ORDERED: POTASSIUM CL SA 10 MEQ TAB PO ONE (12:37)
--- NOTE | 2020-10-03 13:23 | RAD REPORT ---
EXAM DESCRIPTION: RAD - Lumbar Puncture For Dx - 10/03/2020 11:24 am CLINICAL HISTORY: NEUROSYPHILIS , PT C/O TROUBLE SEEING OUT OF LEFT EYE , COMPARISON: None. TECHNIQUE: The procedure, risks and alternatives to the procedure were discussed with the patient in detail. After answering all questions, both oral and written consent were obtained. Time-out proced ure was performed. Patient had no contraindicated allergy or medication history. The patient was placed in an oblique prone position on the fluoroscopic table. The skin of the lower back was prepped and draped in the usual sterile fashion. After anesthetizing the skin and deeper sof t tissues with 1% lidocaine, a 22 gauge needle was advanced into the thecal sac at the L3 level. Intrathecal placement was confirmed with clear colorless CSF observed. No evidence for increased pres sure. Approximately 9.5 mL of the clear colorless CSF were obtained and delivered to the laboratory f or studies as requested by the primary service. At the conclusion of the procedure, the needle was withdrawn and a sterile bandage placed over the pu ncture site. The patient tolerated the procedure well without immediate complications. Post-procedu re care and precaution instructions were discussed with the patient before the LP procedure. IMPRESSION: Successful fluoroscopic guided lumbar puncture. All obtained fluid was sent to the lab for studies requested by the referring physician.
[2020-10-03 14:16] LABS: CSF Glucose 52 mg/dL (40-70)
[2020-10-03 16:59] LABS: Appearance CLEAR (CLEAR); Body Fluid Source CSF; Color of fluid Colorless (COLORLESS); Fluid Total Volume 9 ml
[2020-10-03 17:00] LABS: Body Fluid WBC 3 /mm^3
[2020-10-03] MEDS: ATORVASTATIN 40 MG TAB PO SCH (20:53)
[2020-10-04] MEDS: PENICILLIN MU IV SCH ×6 (00:34→20:08)
[2020-10-04] MEDS: NA CHLORIDE IV SCH ×6 (00:34→20:08)
[2020-10-04 05:37] LABS: Basophils % 0.7 % (0-1.3); Hematocrit 29.9 % (36.0-45.0); Lymphocytes % 15.6 % (15.3-44.8); MPV 7.5 fL (7.6-11.3); RBC Red Blood Cell Count 2.98 M/uL (3.86-4.86)
[2020-10-04] MEDS: LEVOTHYROXINE SOD 0.088 MG TAB PO SCH (05:48)
[2020-10-04] MEDS: PANTOPRAZOLE 40MG TABLET PO SCH (05:48)
--- NOTE | 2020-10-04 05:50 | P.PN ---
Subjective Date of Service: 10/04/20 Primary Care Provider: Dr. Alaniz Chief Complaint: ocular syphilis Subjective: Improving, Doing well Physical Examination - Vital Signs Temperature: 98.5 F Blood Pressure: 119/72 Pulse: 93 Respirations: 16 Pulse Ox (%): 93 - Studies Medications List Reviewed: Yes Assessment & Plan Discharge Plan: Other (half-way facility) Plan to discharge in: 24 Hours Physician Review Additional Text: CT Head: FINDINGS: An intracranial bleed is not seen . The ventricles are normal in caliber. No extra-axial fluid collection is noted. Empty sella turcica is Mild to moderate low-density areas within periventricular, deep and subcortical white matter likely represent ischemic changes secondary to small vessel di sease. Fluid within the sinuses/ mastoids is not seen. IMPRESSION: No acute intracranial abnormality is seen. CT Scan: FINDINGS: The evaluation of mediastinum, bethany and vessels is limited secondary to lack of IV contrast administration. Minimal ground-glass opacities within the lungs. Otherwise, lungs are clear Ascending thoracic aorta has an AP diameter 4.5 centimeters. A pleural effusion is not present. No pericardial effusion IMPRESSION: 4.5 centimeter aneurysm ascending thoracic aorta Physical exam: General: Patient alert, cooperative. Heart: Regular rate and rhythm Lungs: Clear to auscultation Abdomen: Soft nontender nondistended Extremities: Good range of motion. No focal deficits. Impression: Ocular syphilis CAD Hypertension Hyperlipidemia Hypothyroidism Thoracic aortic aneurysm Plan: Ocular syphilis: Patient had lumbar tap yesterday. This was to rule out neurosyphilis. VDRL pending. Continue with penicillin for at least 14 days. If VDRL positive will need 21 days. Currently on penicillin 4,000,000 units every 4 hours IV. Spoke at length with patient today. Patient appears not able to afford outpatient IV antibiotic therapy. Therefore will pursue skilled placement. Will discuss with social work to help with skilled placement to continue IV antibiotic therapy. Anticipate approval for skilled placement in the next 24 to 48 hours.. CAD: Restart aspirin and Plavix tomorrow. Hypertension: Continue Norvasc and metoprolol Hyperlipidemia: Continue statin medication Hypothyroidism: Continue thyroid medication Thoracic aortic aneurysm: 4.5 cm aneurysm noted. This can be followed up as an outpatient. DVT prophylaxis: Currently on hold due to lumbar tap. CODE STATUS: Full code [facility] [id number] minutes: Arrange for skilled placement to continue IV antibiotic therapy Time Spent Managing Pts Care (In Minutes): 55
[2020-10-04 06:00] LABS: BUN Blood Urea Nitrogen 7 mg/dL (7-18); Bicarbonate 31 mmol/L (21-32); Glucose Level 91 mg/dL (74-106); Magnesium 2.1 mg/dL (1.8-2.4); Potassium 4.2 mmol/L (3.5-5.1); Sodium Level 135 mmol/L (136-145)
[2020-10-04] MEDS: LACTOBACILLUS/ACIDOPHILUS TAB PO SCH ×2 (08:32→20:12)
[2020-10-04] MEDS: AMLODIPINE 5 MG TAB PO SCH (08:32)
[2020-10-04] MEDS: PREDNISOLONE 1% OPTH SOLN 5ML EACH EYE SCH ×3 (08:33→20:13)
[2020-10-04] MEDS: METOPROLOL TAR 50 MG TAB PO SCH (08:33)
[2020-10-04] MEDS: DOCUSATE NA 100 MG CAP PO SCH ×2 (08:33→20:12)
[2020-10-04] MEDS: ACETAMINOPHEN 500 MG TAB PO PRN (18:19)
[2020-10-04] MEDS: ATORVASTATIN 40 MG TAB PO SCH (20:12)
[2020-10-05] MEDS: PENICILLIN MU IV SCH ×6 (00:33→20:44)
[2020-10-05] MEDS: NA CHLORIDE IV SCH ×6 (00:33→20:44)
[2020-10-05] MEDS: LEVOTHYROXINE SOD 0.088 MG TAB PO SCH (05:18)
[2020-10-05] MEDS: PANTOPRAZOLE 40MG TABLET PO SCH (05:18)
--- NOTE | 2020-10-05 05:50 | P.PN ---
Subjective Date of Service: 10/05/20 Primary Care Provider: Dr. Alaniz Chief Complaint: ocular syphilis Subjective: No new changes, Doing well Physical Examination - Vital Signs Temperature: 98.2 F Blood Pressure: 153/83 Pulse: 90 Respirations: 16 Pulse Ox (%): 93 - Studies Medications List Reviewed: Yes Assessment & Plan Discharge Plan: Other (group home facility) Plan to discharge in: 24 Hours Physician Review Additional Text: CT Head: FINDINGS: An intracranial bleed is not seen . The ventricles are normal in caliber. No extra-axial fluid collection is noted. Empty sella turcica is Mild to moderate low-density areas within periventricular, deep and subcortical white matter likely represent ischemic changes secondary to small vessel disease. Fluid within the sinuses/ mastoids is not seen. IMPRESSION: No acute intracranial abnormality is seen. CT Scan: FINDINGS: The evaluation of mediastinum, bethany and vessels is limited secondary to lack of IV contrast administration. Minimal ground-glass opacities within the lungs. Otherwise, lungs are clear Ascending thoracic aorta has an AP diameter 4.5 centimeters. A pleural effusion is not present. No pericardial effusion IMPRESSION: 4.5 centimeter aneurysm ascending thoracic aorta Physical exam: General: Patient alert, cooperative. Heart: Regular rate and rhythm Lungs: Clear to auscultation Abdomen: Soft nontender nondistended Extremities: Good range of motion. No focal deficits. Impression: Ocular syphilis CAD Hypertension Hyperlipidemia Hypothyroidism Thoracic aortic aneurysm Plan: Ocular syphilis: Patient doing well. Patient had lumbar tap on Saturday. Waiting on VDRL report. This was to rule out neurosyphilis. Continue with penicillin for at least 14 days(needs 7 more days of treatment). If VDRL positive will need 21 days total(that would be 14 days more). Currently on penicillin 4,000,000 units every 4 hours IV. Spoke with patient and family about plan of care yesterday. Patient understands plan. Waiting on skilled placement a pproval for continued IV antibiotic therapy. Anticipate approval likely as early as today. CAD: Continue aspirin and Plavix. Hypertension: Continue Norvasc and metoprolol Hyperlipidemia: Continue statin medication Hypothyroidism: Continue thyroid medication Thoracic aortic aneurysm: 4.5 cm aneurysm noted. This can be followed up as an outpatient. DVT prophylaxis: Currently on hold due to lumbar tap. CODE STATUS: Full code [facility] [id number] minutes: Waiting approval for skilled placement to continue IV antibiotic therapy Time Spent Managing Pts Care (In Minutes): 55
[2020-10-05] MEDS: DOCUSATE NA 100 MG CAP PO SCH ×2 (09:00→20:42)
[2020-10-05] MEDS: AMLODIPINE 5 MG TAB PO SCH (09:46)
[2020-10-05] MEDS: METOPROLOL TAR 50 MG TAB PO SCH (09:46)
[2020-10-05] MEDS: LACTOBACILLUS/ACIDOPHILUS TAB PO SCH ×2 (09:47→20:43)
[2020-10-05] MEDS: CLOPIDOGREL 75 MG TABLET PO SCH (09:47)
[2020-10-05] MEDS: ASPIRIN 81 MG CHEWABLE TABLET PO SCH (09:47)
[2020-10-05] MEDS: PREDNISOLONE 1% OPTH SOLN 5ML EACH EYE SCH ×3 (09:53→21:00)
--- NOTE | 2020-10-05 10:56 | P.PN ---
Subjective Date of Service: 10/05/20 Primary Care Provider: Dr. Alaniz Chief Complaint: ocular syphilis Patient seen examined at bedside, no acute events are past 24 hr. Hemodynamically stable, awaiting approval to SNIF and CSF VDRL Review of Systems 10-point ROS is otherwise unremarkable Physical Examination - Vital Signs Temperature: 97.5 F Blood Pressure: 139/81 Pulse: 97 Respirations: 17 Pulse Ox (%): 93 - Studies Laboratory Last Values WBC 6.40 K/uL (4.3-10.9) 09/27/20 18:58 RBC 3.74 M/uL (3.86-4.86) L 09/27/20 18:58 Hgb 12.4 g/dL (12.0-15.0) 09/27/20 18:58 Hct 36.7 % (36.0-45.0) 09/27/20 18:58 MCV 98.2 fL (80-100) 09/27/20 18:58 MCH 33.1 pg (27.0-35.0) 09/27/20 18:58 MCHC 33.7 g/dL (32.0-36.0) 09/27/20 18:58 RDW 14.4 % (12.1-15.2) 09/27/20 18:58 Plt Count 249 K/uL (152-406) 09/27/20 18:58 MPV 7.4 fL (7.6-11.3) L 09/27/20 18:58 Neutrophils % 64.4 % (41.7-73.7) 09/27/20 18:58 Lymphocytes % 16.5 % (15.3-44.8) 09/27/20 18:58 Monocytes % 16.2 % (3.3-12.3) H 09/27/20 18:58 Eosinophils % 2.3 % (0-4.4) 09/27/20 18:58 Basophils % 0.6 % (0-1.3) 09/27/20 18:58 Absolute Neutrophils 4.1 K/uL (1.8-8.0) 09/27/20 18:58 Absolute Lymphocytes 1.1 K/uL (0.7-4.9) 09/27/20 18:58 Absolute Monocytes 1.0 K/uL (0.1-1.3) 09/27/20 18:58 Absolute Eosinophils 0.1 K/uL (0-0.5) 09/27/20 18:58 Absolute Basophils 0.0 K/uL (0-0.5) 09/27/20 18:58 Platelet Estimate Adeq 09/27/20 18:58 Morphology Comment Not seen (NOT SEEN) 09/27/20 18:58 Sodium 136 mmol/L (136-145) 09/27/20 18:58 Potassium 4.1 mmol/L (3.5-5.1) 09/27/20 18:58 Chloride 98 mmol/L (98-107) 09/27/20 18:58 Carbon Dioxide 33 mmol/L (21-32) H 09/27/20 18:58 BUN 20 mg/dL (7-18) H 09/27/20 18:58 Creatinine 1.05 mg/dL (0.55-1.3) 09/27/20 18:58 Estimated GFR 62 mL/min (=/>90) L 09/27/20 18:58 Glucose 91 mg/dL (74-106) 09/27/20 18:58 Calcium 9.4 mg/dL (8.5-10.1) 09/27/20 18:58 Total Bilirubin 0.3 mg/dL (0.2-1.0) 09/27/20 18:58 AST 16 U/L (15-37) 09/27/20 18:58 ALT 20 U/L (12-78) 09/27/20 18:58 Alkaline Phosphatase 93 U/L (45-117) 09/27/20 18:58 Serum Total Protein 8.8 g/dL (6.4-8.2) H 09/27/20 18:58 Albumin 4.0 g/dL (3.4-5.0) 09/27/20 18:58 Globulin 4.8 g/dL (2.3-3.5) H 09/27/20 18:58 Albumin/Globulin Ratio 0.8 (1.1-1.8) L 09/27/20 18:58 Smear Scan Ok (OK) 09/27/20 18:58 Medications List Reviewed: Yes Assessment And Plan - Plan General: Alert, In no apparent distress HEENT: Atraumatic, Normocephalic, PERRLA, Mucous membr. moist/pink, EOMI, Sclerae nonicteric Neck: Supple, 2+ carotid pulse no bruit Respiratory: Clear to auscultation bilaterally, Normal air movement Cardiovascular: No edema, Normal pulses Capillary refill: <2 Seconds Gastrointestinal: Normal bowel sounds, Soft and benign Musculoskeletal: No clubbing, No swelling, No contractures Integumentary: No rashes, No breakdown, No significant lesion, No tenderness/swelling Neurological: Normal speech, Normal tone External genitalia: Normal Laboratory Data (last 24 hrs) Conclusions/Impression: Antibiotics: IV penicillin G Start: 09/28 stop: 10/12 Assessment: -ocular syphilis -hypothyroidism -CAD -thoracic ascending aortic aneurysm measuring 4.5 cm--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 Of note the patient does not have any pre-existing conditions that would result in a false-positive result on VDRL. Head CT showed no acute abnormalities. Patient started on IV penicillin G- 25 million units Q 24 hr for the next 10-14 days. Continue to closely monitor labs/renal function closely. Recommend obtaining daily BMP or CMP. Awaiting a lumbar puncture results to confirm neurosyphilis. -patient started on probiotic -ophthalmology on board -neurology on board -screening test ordered include HIV: negative -recommend also ordering gonorrhea and chlamydia testing -monitor patient's visual acuity daily--back to baseline. -continue monitor for signs and symptoms of infection -medical management per primary team Plan of care discussed with Dr. Barros Thank you for consultation
[2020-10-05] MEDS: ATORVASTATIN 40 MG TAB PO SCH (20:43)
--- NOTE | 2020-10-05 22:53 | CON ---
Date of Consultation: 10/05/2020 Reason: Syphilis. Interval History: The patient is stable. No back pain. Lumbar puncture went well. CSF is benign i n its appearance. 3 white cells and 30 red cells with a glucose of 52 and a protein of 41, protein i s not even elevated. VDRL, FTA, and oligoclonal bands are pending. Renal functions normal. Hemoglo bin has come down, it is 9.9. Getting IV penicillin. No new complaints. Gram stain was negative. Preliminary culture no growth. Physical Examination: Vital Signs: On exam, she is afebrile. Vitals are stable. HEENT: Pupils reactive. Ocular motion full. Visual farooq full. Facial strength and sensation are normal. Tongue protrudes evenly. Soft palate elevates symmetrically bilaterally. Extremities: St rength full. Sensation intact. Reflexes 1/4. Toes are downgoing. Pertinent Labs: HIV negative. CSF as alluded to. Impression: Meningovascular syphilis. Plan: Would continue IV penicillin for 14 days. Repeat RPR 3 months to [address] ter should decrease from 1 to 2 to 1 to 1. Await full CSF results. Thank you for the consult. We will continue to follow up with you. ODIN/CHON Voice ID: [id number] Report ID: [id number]
[2020-10-06] MEDS: PENICILLIN MU IV SCH ×6 (01:03→20:58)
[2020-10-06] MEDS: NA CHLORIDE IV SCH ×6 (01:03→20:58)
[2020-10-06] MEDS: PANTOPRAZOLE 40MG TABLET PO SCH (05:03)
[2020-10-06] MEDS: LEVOTHYROXINE SOD 0.088 MG TAB PO SCH (05:03)
[2020-10-06 05:21] LABS: BUN Blood Urea Nitrogen 7 mg/dL (7-18); Bicarbonate 36 mmol/L (21-32); Glucose Level 92 mg/dL (74-106); Phosphorus 3.2 mg/dL (2.5-4.9); Potassium 3.7 mmol/L (3.5-5.1); Sodium Level 137 mmol/L (136-145)
--- NOTE | 2020-10-06 05:57 | P.PN ---
Subjective Date of Service: 10/06/20 Primary Care Provider: Dr. Alaniz Chief Complaint: ocular syphilis Subjective: No new changes, Doing well Physical Examination - Vital Signs Temperature: 97.2 F Blood Pressure: 137/87 Pulse: 92 Respirations: 19 Pulse Ox (%): 93 - Studies Medications List Reviewed: Yes Assessment & Plan Discharge Plan: Other (care home facility) Plan to discharge in: 24 Hours Physician Review Additional Text: CT Head: FINDINGS: An intracranial bleed is not seen . The ventricles are normal in caliber. No extra-axial fluid collection is noted. Empty sella turcica is Mild to moderate low-density areas within periventricular, deep and subcortical white matter likely represent ischemic changes secondary to small vessel disease. Fluid within the sinuses/ mastoids is not seen. IMPRESSION: No acute intracranial abnormality is seen. CT Scan: FINDINGS: The evaluation of mediastinum, bethany and vessels is limited secondary to lack of IV contrast administration. Minimal ground-glass opacities within the lungs. Otherwise, lungs are clear Ascending thoracic aorta has an AP diameter 4.5 centimeters. A pleural effusion is not present. No pericardial effusion IMPRESSION: 4.5 centimeter aneurysm ascending thoracic aorta Physical exam: General: Patient alert, cooperative. Heart: Regular rate and rhythm Lungs: Clear to auscultation Abdomen: Soft nontender nondistended Extremities: Good range of motion. No focal deficits. Impression: Ocular syphilis CAD Hypertension Hyperlipidemia Hypothyroidism Thoracic aortic aneurysm Plan: Ocular syphilis: Patient doing well. Patient had lumbar tap on Saturday. Waiting on VDRL report. This was to rule out neurosyphilis. Continue with penicillin for at least 14 days(needs 7 more days of treatment). If VDRL positive will need 21 days total(that would be 14 days more). Currently on penicillin 4,000,000 units every 4 hours IV. Spoke with patient and family about plan of care yesterday. Patient understands plan. Waiting on skilled placement a pproval for continued IV antibiotic therapy. Anticipate approval likely as early as today. CAD: Continue aspirin and Plavix. Hypertension: Continue Norvasc and metoprolol Hyperlipidemia: Continue statin medication Hypothyroidism: Continue thyroid medication Thoracic aortic aneurysm: 4.5 cm aneurysm noted. This can be followed up as an outpatient. DVT prophylaxis: Currently on hold due to lumbar tap. CODE STATUS: Full code [facility] [id number] minutes: Waiting approval for skilled placement to continue IV antibiotic therapy Time Spent Managing Pts Care (In Minutes): 55
[2020-10-06] MEDS: LACTOBACILLUS/ACIDOPHILUS TAB PO SCH ×2 (08:44→20:59)
[2020-10-06] MEDS: ASPIRIN 81 MG CHEWABLE TABLET PO SCH (08:44)
[2020-10-06] MEDS: CLOPIDOGREL 75 MG TABLET PO SCH (08:44)
[2020-10-06] MEDS: METOPROLOL TAR 50 MG TAB PO SCH (08:45)
[2020-10-06] MEDS: AMLODIPINE 5 MG TAB PO SCH (08:45)
[2020-10-06] MEDS: PREDNISOLONE 1% OPTH SOLN 5ML EACH EYE SCH ×3 (08:46→21:00)
[2020-10-06] MEDS: DOCUSATE NA 100 MG CAP PO SCH ×2 (08:47→20:59)
[2020-10-06] MEDS ORDERED: POTASSIUM CL SA 10 MEQ TAB PO ONE (09:00)
--- NOTE | 2020-10-06 11:34 | P.PN ---
Subjective Date of Service: 10/06/20 Primary Care Provider: Dr. Alaniz Chief Complaint: ocular syphilis Patient seen examined at bedside, doing well with no acute complaints. Tolerating antibiotics well with no nausea, vomiting, diarrhea P Review of Systems 10-point ROS is otherwise unremarkable Physical Examination - Vital Signs Temperature: 98.0 F Blood Pressure: 127/78 Pulse: 90 Respirations: 18 Pulse Ox (%): 95 - Studies Laboratory Last Values WBC 6.40 K/uL (4.3-10.9) 09/27/20 18:58 RBC 3.74 M/uL (3.86-4.86) L 09/27/20 18:58 Hgb 12.4 g/dL (12.0-15.0) 09/27/20 18:58 Hct 36.7 % (36.0-45.0) 09/27/20 18:58 MCV 98.2 fL (80-100) 09/27/20 18:58 MCH 33.1 pg (27.0-35.0) 09/27/20 18:58 MCHC 33.7 g/dL (32.0-36.0) 09/27/20 18:58 RDW 14.4 % (12.1-15.2) 09/27/20 18:58 Plt Count 249 K/uL (152-406) 09/27/20 18:58 MPV 7.4 fL (7.6-11.3) L 09/27/20 18:58 Neutrophils % 64.4 % (41.7-73.7) 09/27/20 18:58 Lymphocytes % 16.5 % (15.3-44.8) 09/27/20 18:58 Monocytes % 16.2 % (3.3-12.3) H 09/27/20 18:58 Eosinophils % 2.3 % (0-4.4) 09/27/20 18:58 Basophils % 0.6 % (0-1.3) 09/27/20 18:58 Absolute Neutrophils 4.1 K/uL (1.8-8.0) 09/27/20 18:58 Absolute Lymphocytes 1.1 K/uL (0.7-4.9) 09/27/20 18:58 Absolute Monocytes 1.0 K/uL (0.1-1.3) 09/27/20 18:58 Absolute Eosinophils 0.1 K/uL (0-0.5) 09/27/20 18:58 Absolute Basophils 0.0 K/uL (0-0.5) 09/27/20 18:58 Platelet Estimate Adeq 09/27/20 18:58 Morphology Comment Not seen (NOT SEEN) 09/27/20 18:58 Sodium 136 mmol/L (136-145) 09/27/20 18:58 Potassium 4.1 mmol/L (3.5-5.1) 09/27/20 18:58 Chloride 98 mmol/L (98-107) 09/27/20 18:58 Carbon Dioxide 33 mmol/L (21-32) H 09/27/20 18:58 BUN 20 mg/dL (7-18) H 09/27/20 18:58 Creatinine 1.05 mg/dL (0.55-1.3) 09/27/20 18:58 Estimated GFR 62 mL/min (=/>90) L 09/27/20 18:58 Glucose 91 mg/dL (74-106) 09/27/20 18:58 Calcium 9.4 mg/dL (8.5-10.1) 09/27/20 18:58 Total Bilirubin 0.3 mg/dL (0.2-1.0) 09/27/20 18:58 AST 16 U/L (15-37) 09/27/20 18:58 ALT 20 U/L (12-78) 09/27/20 18:58 Alkaline Phosphatase 93 U/L (45-117) 09/27/20 18:58 Serum Total Protein 8.8 g/dL (6.4-8.2) H 09/27/20 18:58 Albumin 4.0 g/dL (3.4-5.0) 09/27/20 18:58 Globulin 4.8 g/dL (2.3-3.5) H 09/27/20 18:58 Albumin/Globulin Ratio 0.8 (1.1-1.8) L 09/27/20 18:58 Smear Scan Ok (OK) 09/27/20 18:58 Medications List Reviewed: Yes Assessment And Plan - Plan General: Alert, In no apparent distress HEENT: Atraumatic, Normocephalic, PERRLA, Mucous membr. moist/pink, EOMI, Sclerae nonicteric Neck: Supple, 2+ carotid pulse no bruit Respiratory: Clear to auscultation bilaterally, Normal air movement Cardiovascular: No edema, Normal pulses Capillary refill: <2 Seconds Gastrointestinal: Normal bowel sounds, Soft and benign Musculoskeletal: No clubbing, No swelling, No contractures Integumentary: No rashes, No breakdown, No significant lesion, No tenderness/swelling Neurological: Normal speech, Normal tone External genitalia: Normal Laboratory Data (last 24 hrs) Conclusions/Impression: Antibiotics: IV penicillin G Start: 09/28 stop: 10/12 Assessment: -ocular syphilis -hypothyroidism -CAD -thoracic ascending aortic aneurysm measuring 4.5 cm--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 Of note the patient does not have any pre-existing conditions that would result in a false-positive result on VDRL. Head CT showed no acute abnormalities. Patient started on IV penicillin G- 25 million units Q 24 hr for the next 10-14 days. Continue to closely monitor labs/renal function closely. Recommend obtaining daily BMP or CMP. Awaiting a lumbar puncture results to confirm neurosyphilis. -patient started on probiotic -ophthalmology on board -neurology on board -screening test ordered include HIV: negative -recommend also ordering gonorrhea and chlamydia testing -monitor patient's visual acuity daily--back to baseline. -continue monitor for signs and symptoms of infection -medical management per primary team Plan of care discussed with Dr. Barros Thank you for consultation
[2020-10-06] MEDS ORDERED: NA CHLORIDE 0.9% 250 ML ONE (20:45)
[2020-10-06] MEDS: ATORVASTATIN 40 MG TAB PO SCH (20:59)
[2020-10-07] MEDS: NA CHLORIDE IV SCH ×6 (01:02→16:45)
[2020-10-07] MEDS: PENICILLIN MU IV SCH ×6 (01:02→16:45)
[2020-10-07 02:08] VITALS: O2SAT 93
[2020-10-07] MEDS: LEVOTHYROXINE SOD 0.088 MG TAB PO SCH ×2 (05:18→05:20)
[2020-10-07] MEDS: PANTOPRAZOLE 40MG TABLET PO SCH ×2 (05:18→05:20)
--- NOTE | 2020-10-07 06:10 | P.DS ---
Admission Date: 09/27/20 Discharge Date: 10/07/20 Primary Care Provider: Dr. Alaniz Disposition: TRANSFER TO SNF - MEDICAL Discharge Condition: GOOD Reason for Admission: ocular syphilis Consultations: Neurology-Dr. Vila Ophthalmology-Dr. Eller Procedures: CT Head: FINDINGS: An intracranial bleed is not seen . The ventricles are normal in caliber. No extra-axial fluid collection is noted. Empty sella turcica is Mild to moderate low-density areas within periventricular, deep and subcortical white matter likely represent ischemic changes secondary to small vessel disease. Fluid within the sinuses/ mastoids is not seen. IMPRESSION: No acute intracranial abnormality is seen. CT Scan: FINDINGS: The evaluation of mediastinum, bethany and vessels is limited secondary to lack of IV contrast administration. Minimal ground-glass opacities within the lungs. Otherwise, lungs are clear Ascending thoracic aorta has an AP diameter 4.5 centimeters. A pleural effusion is not present. No pericardial effusion IMPRESSION: 4.5 centimeter aneurysm ascending thoracic aorta Lumbar Tap: Performed. VDRL nonreactive Medical Problem List: Ocular syphilis CAD Hypertension Hyperlipidemia Hypothyroidism Thoracic aortic aneurysm Brief History of Present Illness: 74 yo Female with HTN, CAD, hypothyroidism, HLD here today from Dr. Alaniz's office for further workup of possible ocular syphilis. One month ago, she said she had inflammation in her left eye that looked like 'scratches', and reported decreased visual acuity and blurry vision. Vision changes worse when she tried to focus on her tablet. Symptoms improved with eye drops from [employer]. She denies pain, N/V, hearing loss, tinnitus, dizziness. VDRL and FTA-ABS tests positive for syphilis. Head CT wnl. CT Chest shows 4.5 cm ascending thoracic aortic aneurysm. Patient was admitted for further evaluation and treatment. Hospital Course: Patient presented with ocular syphilis. Patient had serum abnormal lab for syphilis. The patient was admitted for IV treatment. The patient received penicillin G. Patient was evaluated by Ophthalmology and Neurology. Neurology recommended to perform lumbar puncture to evaluate for Neuro syphilis. VDRL was nonreactive. PICC line was placed to continue treatment for a total of 14 days. Patient still has 5 more days of treatment. Patient has been approved to go to skilled facility to continue IV antibiotic therapy. At discharge the patient will continue with penicillin G 4 million units IV every 4 hr for 5 days. This will complete her treatment. Afterwards patient can be discharged home. Patient will also continue with eyedrops as recommended by Ophthalmology. Prescription provided. Patient should follow up with Ophthalmology and Neurology after hospitalization within 1-2 weeks to follow up this hospitalization. Patient with history of CAD, hyperlipidemia, and hypertension. During the course of her stay in medications were adjusted. Patient previously on lisinopril hydrochlorothiazide. This was replaced with amlodipine. Blood pressure stable. Recommend to maintain blood pressures less 130/80. Further adjustment can be done by her PCP. At discharge she will continue with her current medications of aspirin 81 mg daily, Plavix 75 mg daily, Norvasc 5 mg daily, metoprolol 100 mg daily, and Lipitor 40 mg daily. Recommend follow up with PCP in 1-2 weeks to follow up this hospitalization and continue her care. Patient with hypothyroidism. At discharge she will continue with her current medication levothyroxine 88 mcg daily Patient with GERD. At discharge she will continue with Protonix 40 mg daily. Patient had abnormal CT scan showing 4.5 cm thoracic aortic aneurysm. Recommend follow up with cardiology as an outpatient to further monitor and address. Patient will likely require repeat CT scan in 6-12 months to monitor stability. Vital Signs/Physical Exam: Temp Pulse Resp BP Pulse Ox 97.4 F 84 18 137/81 95 10/07/20 00:00 10/07/20 00:00 10/07/20 00:00 10/07/20 00:00 10/07/20 00:00 General: Alert, In no apparent distress, Oriented x3, Cooperative HEENT: Atraumatic Neck: Supple Respiratory: Clear to auscultation bilaterally, Normal air movement Cardiovascular: Normal pulses, Regular rate/rhythm Gastrointestinal: Normal bowel sounds, No rebound, No guarding Musculoskeletal: No tenderness Integumentary: No tenderness/swelling Neurological: Normal speech, Normal strength at 5/5 x4 extr, Normal tone, Normal affect Laboratory Data at Discharge: WBC 6.20 K/uL (4.3-10.9) D 10/04/20 05:05 Hgb 9.9 g/dL (12.0-15.0) L 10/04/20 05:05 Hct 29.9 % (36.0-45.0) L D 10/04/20 05:05 Plt Count 247 K/uL (152-406) 10/04/20 05:05 PT 11.4 SECONDS (9.5-12.5) 09/28/20 05:39 INR 0.99 09/28/20 05:39 APTT 31.2 SECONDS (24.3-36.9) 09/28/20 05:39 Sodium 137 mmol/L (136-145) 10/06/20 05:00 Potassium 3.7 mmol/L (3.5-5.1) 10/06/20 05:00 BUN 7 mg/dL (7-18) 10/06/20 05:00 Creatinine 0.68 mg/dL (0.55-1.3) 10/06/20 05:00 Glucose 92 mg/dL (74-106) 10/06/20 05:00 Phosphorus 3.2 mg/dL (2.5-4.9) 10/06/20 05:00 Magnesium 2.1 mg/dL (1.8-2.4) 10/04/20 05:05 Total Bilirubin 0.6 mg/dL (0.2-1.0) 09/28/20 05:39 AST 16 U/L (15-37) 09/28/20 05:39 ALT 17 U/L (12-78) 09/28/20 05:39 Alkaline Phosphatase 75 U/L (45-117) 09/28/20 05:39 Triglycerides 85 mg/dL (<150) 09/28/20 05:39 Cholesterol 150 mg/dL (<200) 09/28/20 05:39 HDL Cholesterol 68 mg/dL (40-60) H 09/28/20 05:39 Cholesterol/HDL Ratio 2.21 09/28/20 05:39 Home Medications: Aspirin Chewable [Aspirin Chewable*] 1 tab PO DAILY 06/17/19 Atorvastatin Calcium 40 mg PO DAILY 06/17/19 Clopidogrel Bisulfate [Plavix*] 75 mg PO DAILY 06/17/19 Pantoprazole [Protonix Tab*] 1 tab PO DAILY 06/17/19 Docusate [Colace Cap*] 100 mg PO BID cap 06/21/19 Losartan/Hydrochlorothiazide [Losartan-Hctz 100-12.5 mg Tab] 1 each PO DAILY #30 tablet 06/21/19 Polyethyl Gly 3350 [Glycolax*] 17 gm PO DAILY PRN udbot 06/21/19 Levothyroxine [Synthroid*] 1 tab PO DAILY 09/28/20 Losartan/Hydrochlorothiazide [Losartan-Hctz 100-12.5 mg Tab] 1 tab PO DAILY 09/28/20 Metoprolol Tartrate 100 mg PO DAILY 09/28/20 Prednisol Acet 1% Opth [Pred Forte 1%*] 1 drops EACH EYE TID #1 btl 10/07/20 New Medications: Prednisol Acet 1% Opth [Pred Forte 1%*] 1 drops EACH EYE TID #1 btl Physician Discharge Instructions: Patient presented with ocular syphilis. Patient had serum abnormal lab for syphilis. The patient was admitted for IV treatment. The patient received penicillin G. Patient was evaluated by Ophthalmology and Neurology. Neurology recommended to perform lumbar puncture to evaluate for Neuro syphilis. VDRL was nonreactive. PICC line was placed to continue treatment for a total of 14 days. Patient still has 5 more days of treatment. Patient has been approved to go to skilled facility to continue IV antibiotic therapy. At discharge the patient will continue with penicillin G 4 million units IV every 4 hr for 5 days. This will complete her treatment. Afterwards patient can be discharged home. Patient will also continue with eyedrops as recommended by Ophthalmology. Prescription provided. Patient should follow up with Ophthalmology and Neurology after hospitalization within 1-2 weeks to follow up this hospitalization. Patient with history of CAD, hyperlipidemia, and hypertension. During the course of her stay in medications were adjusted. Patient previously on lisinopril hydrochlorothiazide. This was replaced with amlodipine. Blood pressure stable. Recommend to maintain blood pressures less 130/80. Further adjustment can be done by her PCP. At discharge she will continue with her current medications of aspirin 81 mg daily, Plavix 75 mg daily, Norvasc 5 mg daily, metoprolol 100 mg daily, and Lipitor 40 mg daily. Recommend follow up with PCP in 1-2 weeks to follow up this hospitalization and continue her care. Patient with hypothyroidism. At discharge she will continue with her current medication levothyroxine 88 mcg daily Patient with GERD. At discharge she will continue with Protonix 40 mg daily. Patient had abnormal CT scan showing 4.5 cm thoracic aortic aneurysm. Recommend follow up with cardiology as an outpatient to further monitor and address. Patient will likely require repeat CT scan in 6-12 months to monitor stability. Diet: AHA Activity: Ad honey Followup: Jeremi Alaniz, DO [Primary Care Provider] - Time spent managing pt's care (in minutes): 55
[2020-10-07 06:17] LABS: Potassium 3.9 mmol/L (3.5-5.1)
[2020-10-07] MEDS: DOCUSATE NA 100 MG CAP PO SCH (08:56)
[2020-10-07] MEDS: METOPROLOL TAR 50 MG TAB PO SCH (08:56)
[2020-10-07] MEDS: LACTOBACILLUS/ACIDOPHILUS TAB PO SCH (08:57)
[2020-10-07] MEDS: ASPIRIN 81 MG CHEWABLE TABLET PO SCH (08:57)
[2020-10-07] MEDS: PREDNISOLONE 1% OPTH SOLN 5ML EACH EYE SCH ×2 (08:57→14:07)
[2020-10-07] MEDS: CLOPIDOGREL 75 MG TABLET PO SCH (08:57)
[2020-10-07] MEDS: AMLODIPINE 5 MG TAB PO SCH (08:57)
[2020-10-07] MEDS ORDERED: POTASSIUM CL SA 10 MEQ TAB PO ONE (09:00)
--- NOTE | 2020-10-07 13:46 | P.PN ---
Subjective Date of Service: 10/07/20 Primary Care Provider: Dr. Alaniz Chief Complaint: ocular syphilis No acute events over past 24 hr. Review of Systems 10-point ROS is otherwise unremarkable Physical Examination - Vital Signs Temperature: 97.2 F Blood Pressure: 115/74 Pulse: 64 Respirations: 15 Pulse Ox (%): 96 - Studies Laboratory Last Values WBC 6.40 K/uL (4.3-10.9) 09/27/20 18:58 RBC 3.74 M/uL (3.86-4.86) L 09/27/20 18:58 Hgb 12.4 g/dL (12.0-15.0) 09/27/20 18:58 Hct 36.7 % (36.0-45.0) 09/27/20 18:58 MCV 98.2 fL (80-100) 09/27/20 18:58 MCH 33.1 pg (27.0-35.0) 09/27/20 18:58 MCHC 33.7 g/dL (32.0-36.0) 09/27/20 18:58 RDW 14.4 % (12.1-15.2) 09/27/20 18:58 Plt Count 249 K/uL (152-406) 09/27/20 18:58 MPV 7.4 fL (7.6-11.3) L 09/27/20 18:58 Neutrophils % 64.4 % (41.7-73.7) 09/27/20 18:58 Lymphocytes % 16.5 % (15.3-44.8) 09/27/20 18:58 Monocytes % 16.2 % (3.3-12.3) H 09/27/20 18:58 Eosinophils % 2.3 % (0-4.4) 09/27/20 18:58 Basophils % 0.6 % (0-1.3) 09/27/20 18:58 Absolute Neutrophils 4.1 K/uL (1.8-8.0) 09/27/20 18:58 Absolute Lymphocytes 1.1 K/uL (0.7-4.9) 09/27/20 18:58 Absolute Monocytes 1.0 K/uL (0.1-1.3) 09/27/20 18:58 Absolute Eosinophils 0.1 K/uL (0-0.5) 09/27/20 18:58 Absolute Basophils 0.0 K/uL (0-0.5) 09/27/20 18:58 Platelet Estimate Adeq 09/27/20 18:58 Morphology Comment Not seen (NOT SEEN) 09/27/20 18:58 Sodium 136 mmol/L (136-145) 09/27/20 18:58 Potassium 4.1 mmol/L (3.5-5.1) 09/27/20 18:58 Chloride 98 mmol/L (98-107) 09/27/20 18:58 Carbon Dioxide 33 mmol/L (21-32) H 09/27/20 18:58 BUN 20 mg/dL (7-18) H 09/27/20 18:58 Creatinine 1.05 mg/dL (0.55-1.3) 09/27/20 18:58 Estimated GFR 62 mL/min (=/>90) L 09/27/20 18:58 Glucose 91 mg/dL (74-106) 09/27/20 18:58 Calcium 9.4 mg/dL (8.5-10.1) 09/27/20 18:58 Total Bilirubin 0.3 mg/dL (0.2-1.0) 09/27/20 18:58 AST 16 U/L (15-37) 09/27/20 18:58 ALT 20 U/L (12-78) 09/27/20 18:58 Alkaline Phosphatase 93 U/L (45-117) 09/27/20 18:58 Serum Total Protein 8.8 g/dL (6.4-8.2) H 09/27/20 18:58 Albumin 4.0 g/dL (3.4-5.0) 09/27/20 18:58 Globulin 4.8 g/dL (2.3-3.5) H 09/27/20 18:58 Albumin/Globulin Ratio 0.8 (1.1-1.8) L 09/27/20 18:58 Smear Scan Ok (OK) 09/27/20 18:58 Medications List Reviewed: Yes Assessment And Plan - Plan General: Alert, In no apparent distress HEENT: Atraumatic, Normocephalic, PERRLA, Mucous membr. moist/pink, EOMI, Sclerae nonicteric Neck: Supple, 2+ carotid pulse no bruit Respiratory: Clear to auscultation bilaterally, Normal air movement Cardiovascular: No edema, Normal pulses Capillary refill: <2 Seconds Gastrointestinal: Normal bowel sounds, Soft and benign Musculoskeletal: No clubbing, No swelling, No contractures Integumentary: No rashes, No breakdown, No significant lesion, No tenderness/swelling Neurological: Normal speech, Normal tone External genitalia: Normal Laboratory Data (last 24 hrs) Conclusions/Impression: Antibiotics: IV penicillin G Start: 09/28 stop: 10/12 Assessment: -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 Of note the patient does not have any pre-existing conditions that would result in a false-positive result on VDRL. Head CT showed no acute abnormalities. Lumbar puncture VDRL negative, and few WBC noted CSF. 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 Due to patient's ocular symptoms recommend continuing current treatment. Patient started on IV penicillin G- 25 million units Q 24 hr for the next 10-14 days. Continue to closely monitor labs/renal function closely. Recommend obtaining daily BMP or CMP. -ophthalmology on board -neurology on board -screening test ordered include HIV: negative -recommend also ordering gonorrhea and chlamydia testing -monitor patient's visual acuity daily--back to baseline. -continue monitor for signs and symptoms of infection -medical management per primary team Plan of care discussed with Dr. Barros Thank you for consultation
[2020-10-07 16:31] VITALS: BP 148/94; TEMP 97.5
== END 2020-10-07 17:57 | DRG 125 ==
LOC: ER 15:41 → ERHOLD 19:10 → 2ND 20:55
PROVIDERS: ADMIT Hospitalist; ATTEND Hospitalist
PROC: 02HV33Z Insertion of Infusion Device into Superior Vena Cava, Percutaneous Approach (ICD-10-PCS; 2020-10-01)
PROC: 009U3ZX Drainage of Spinal Canal, Percutaneous Approach, Diagnostic (ICD-10-PCS; principal; 2020-10-03)
DX: A52.71 Late syphilitic oculopathy (principal); A52.13 Late syphilitic meningitis; I25.10 Atherosclerotic heart disease of native coronary artery without angina pectoris; E78.5 Hyperlipidemia, unspecified; I10 Essential (primary) hypertension; E03.9 Hypothyroidism, unspecified; K21.9 Gastro-esophageal reflux disease without esophagitis; I71.2 Thoracic aortic aneurysm, without rupture; N28.9 Disorder of kidney and ureter, unspecified; D64.9 Anemia, unspecified; Z20.822 Contact with and (suspected) exposure to COVID-19
CPT/HCPCS: 36415; 36569; 70450; 71045; 71250; 77003; 80048; 80053; 80061; 81003; 82945; 83735; 84100; 84132; 84145; 84157; 84439; 84443; 85025; 85610; 85730; 86592; 87070; 87389; 89050; 94760; 97116; 97161; 97530; 99285; J0360; J2540; J3475; J7030; J7050; U0003

== ENCOUNTER 2021-03-10 13:47 | Emergency (ER) | payer OTHER ==
--- OUTSIDE RECORDS SUMMARY | 2021-03-10 13:52 | XMS REPORT | Continuity of Care Document ---
:1945 Author Organization [facility] t Address [address] [place] [address] Care Team Providers Name Role Phone Corrie Cruz Attending Clinician Unavailable Andrea Marc Admitting Clinician Unavailable Payers Payer Name Policy Type Policy Number Effective Date Expiration Date S chanel MEDICARE PART A [id number] 2011 \T\ B 00:00:00 Problems This patient has no known problems. Allergies, Adverse Reactions, Alerts Allergy Allergy Status Severity Reaction(s) Onset Inactive Treating Comm ents Source Name Type Date Date Clinician No Known DA Active U 2019-0 [facility]: [address] No Known DA Active U 0 [facility] 05[facility]04 [facility]:00: [address] No Known DA Active U 0 [facility] 09-29 [facility] 00:[facility]: [address] No Known DA Active U 2018-0 [facility] 09-29 [facility] 00:00: [address] No Known DA Active U 2008-0 [facility] Contrast - [place] [facility] 00:00: [address] No Known DA Active U 2008-0 [facility] Drug - [place] [facility] 00:00: [address] No Known DA Active U 2009-0 [facility] Food 2- [place] [facility] 00:00: [address] No Known DA Active U 2009-0 [facility] Other - [place] [facility] 00:00: [address] NO KNOWN Drug Active [facility] ALLERGIE Class ity of [facility] Medications Ordered Filled Start Stop Current Ordering Indication Dosage Frequency Signature Comments Components Source Medication Medication Date Date Medication? Clinician (SIG) Name Name Losartan Losartan Yes Jeremi [address] Potassium-H Potassium-H Alaniz [facility] Polyethylen Polyethylen Yes Jeremi not [facility] Glycol e Glycol Alaniz defined [facility] MiraLax MiraLax Yes Jeremi not [facility] Alaniz defined [facility] Atorvastati Atorvastati Yes Jeremi [address] [facility] n Calcium n Calcium Alaniz [facility] Aspirin 81 Aspirin 81 Yes Jeremi [address] [facility] Alaniz [facility] Pantoprazol Pantoprazol Yes Jeremi [address] e Sodium e Sodium Alaniz [facility] Sodium Sodium Yes Jeremi not [facility] Chloride Chloride Alaniz defined [facility] - [facility] Potassium Potassium Yes Jeremi TAKE [address] Chloride Chloride Alaniz TABLET BY L ukes - Li ER Li ER MOUTH ONCE Mem oria DAILY l [facility] Metoprolol Metoprolol Yes Jeremi TAKE [address] Tartrate Tartrate Alaniz TABLET BY L ukes - MOUTH ONCE Memoria DAILY WITH l [facility]OD [facility] Clinics Levothyroxi Levothyroxi Yes Jeremi [address] ne Sodium ne Sodium Alaniz in the Tresa kes - morning on Memoria an empty l stomach [facility] Metoprolol Metoprolol Yes Jeremi [address] Tartrate Tartrate Alaniz with food L u[facility] - [facility] Clopidogrel Clopidogrel Yes Jeremi [address] Bisulfate Bisulfate Alaniz [facility] Docusate Docusate Yes Jeremi [address] Sodium Sodium Alaniz as needed [facility] Potassium Potassium Yes Jeremi [address] Chloride Chloride Alaniz with food L u[facility] - [facility] penicillin penicillin Yes Jeremi not [facility] Alaniz defined [facility] Procedures Procedure Date / Time Performed Performing Clinician Sourmarely stark [id number] 2019-05-05 00:00:00 ADRIELKELLE [facility] [id number] 2019-05-05 00:00:00 [facility] Encounters Start End Encounter Admission Attending Care Care Encounter Source Date/Time Date/Time Type Type Clinicians Facility Department ID 2019-05-05 Inpatient YAKOV KhanWOtilio SURG [id number] [facility] 10:30:[address] 2021-03-06 2021-03-06 ambulatory [facility] [id number] [facility] 2021-02-10 2021-02-10 Outpatient [facility] [id number] [facility] 2020-12-23 2020-12-23 Outpatient [facility] [id number] [facility] 2020-11-24 2020-11-24 Outpatient [facility] [id number] [facility] 2020-09-29 2020-09-29 Outpatient [facility] [id number] [facility] 2020-09-27 2020-09-27 Outpatient [facility] [id number] [facility] 2020-09-26 2020-09-26 Outpatient [facility] [id number] [facility] 2020-09-26 2020-09-26 Outpatient [facility] [id number] [facility] 2020-09-19 2020-09-19 Outpatient [facility] [id number] [facility] 2020-07-02 2020-07-[address] [facility] [id number] [facility] 11:05:00 11:05:00 [facility] 2020-06-11 2020-06-[address] [facility] [id number] [facility] 11:30:00 11:30:00 [facility] 2020-04-05 2020-04-05 Outpatient [facility] [id number] [facility] 2020-03-08 2020-03-08 Outpatient [facility] [id number] [facility] 2020-03-08 2020-03-08 Outpatient [facility] [id number] [facility] 2019-12-03 2019-12-03 [facility] [id number] 09:15:00 09:15:00 [facility] [employer] [facility] - [address] [facility] Outpat[facility] Clinics 2019-11-19 2019-11-19 [facility] [id number] 15:09:00 15:09:00 [facility] [employer] [address] [facility] Out[facility] Clinics 2019-09-03 2019-09-03 [facility] [id number] 11:00:00 11:00:00 [place] [employer] [address] [facility] Out[facility] Clinics 2019-09-03 2019-09-03 [facility] [id number] 10:45:00 10:45:00 [place] [employer] [address] [facility] Medicine Outpat[facility] Clinics 2019-07-23 2019-07-23 [facility] [id number] 09:24:00 09:24:00 [place] [employer] [address] [facility] Medicine Outpati [facility] Clinics 2019-07-11 2019-07-11 [facility] [id number] 13:05:00 13:05:00 [address] [employer] - [address] [facility] 2019-06-30 2019-06-30 Outpatient Attilaomaira Dupreeemmanuel [id number] [facility] 14:15:00 14:15:00 [employer] - [address] [facility] Results Test Description Test Time Test Comments Results Result Sourc e Comments ARTERY,PLAQUE 2019-05-07 10:05:00 ----RUN DATE: 05/07/19 [place] - LAB PAGE 1 RUN TIME: 1005 Specimen Inquiry RUN USER: INTERFACE ----PATIENT: WILI SABILLON LOC: NEA U #: [id number] AGE/SX: 73/F [facility] DR: Rohith Cruz MD : 47 BED: A DIS: STATUS: ADM IN TLOC: ---- SPEC #: [id number] RECD: 05/05/19 STATUS: DIEGO BYNUM #: [id number] GUS: 05/05/19 [facility] DR: Rohith Cruz MD ENTERED: 05/05/19 SP TYPE: ARTERY, PL OTHR DR: Katie Marc MD, Nioti R MD Pepper, Gregory S MDORDERED: DECAL, SURG PATH LVL 3, SURG PATH LVL 4 CODES: [id number] - PLAQUE, NOS [id number] - ARTERY, NOS [id number] - CAROTID ARTERY ATHEROSCLEROSIS [id number] - CERVIX EXCISIONAL BIOP [id number] - LYMPH NODE, NOS COPIES TO: Katie Marc MD [address] [place] [address] [address] [place] [address] [email or web address] [address] [place] [address] [place] [address] [facility] [address] [place] [address] [place] [address] [facility] [address] [place] [address] ICD CODES: 440 - PROCEDURES: DECAL (05/06/19-904) SURG PATH LVL 3 (05/05/19-1612) SURG PATH LVL 4 (05/06/19-1325) TISSUES: A. ARTERY, NOS - LT CAROTID PLAQUE B. LYMPH NODE, NOS - LT CERVICAL LYMPH NODE CONTINUED ON NEXT PAGE ----RUN DATE: 05/07/19 [place] - LAB PAGE 2 RUN TIME: 1005 Specimen Inquiry RUN USER: INTERFACE ----SPEC #: [id number] PATIENT: WILI SABILLON #[id number] (Continued) CLINICAL HISTORY LEFT INTERNAL CAROTID ARTERY STENOSIS CPT CODES CPT CODE(S): 11152 , 54834 , 05896 , , , , FINAL DIAGNOSIS A. [...] changes. No atypical features. /cm ------- Signed Darrion,Christopher 05/07/19 1005 ---- END OF REPORT BASIC [...] CA) 9.6 MG/DL 8.4-10.2 N BASIC METABOLIC [id number] 04:40:00 Test Item Value Reference Range Interpretation [...] code = MG/DL 8.7-9.7 CA) BASIC METABOLIC [id number] 04:38:00 Test Item Value Reference Range Interpretation [...] code = CA) MG/DL 8.7-9.7 BASIC METABOLIC [id number] 04:37:00 Test Item Value Reference Range Interpretation [...] code = CA) MG/DL 8.7-9.7 CBC W/AUTO [id number] 04:18:00 Test Item Value Reference Range Interpretation [...] K/mm3 0.0-0.1 N NRBC#) - XR CHEST [id number] 09:05:00 Patient Name: WILI SABILLON Unit No: [id number] EXAMS: CPT CODE: [id number] XR CHEST 1V 00537 Site ID: [id number] HISTORY: Postoperative, left ICA [...] MD CC: Katie Marc MD Technologist: Lety Vazquez, RT(R) Transcrpt Date/Tm/Trnsp: 05/06/2019 (904) [email or web address].[email or web address] Orig Print D/T: S: 05/06/2019 (907) [facility] NAME: WILI SABLILON [address] PHYS: [place] [address] : 1945 AGE: 73 SEX: F LOC: Z.SI04 A PHONE #: [phone] EXAM DATE: 05/06/2019 STATUS: ADM IN FAX #: [phone] RADIOLOGY NO: PAGE 1 Signed ReportBASIC METABOLIC [id number] 06:09:00 Test Item Value Reference Range Interpretation [...] code = 9.4 MG/DL 8.4-10.2 N CA) [id number] 06:09:00 Test Item Value Reference Range Interpretation Comments MAGNESIUM (test code = MAG) 1.5 MG/DL 1.6-2.3 L BASIC METABOLIC [id number] 05:59:00 Test Item Value Reference Range Interpretation [...] CALCIUM (test code = CA) MG/DL 8.7-9.7 [id number] 05:59:00 Test Item Value Reference Range Interpretation Comments MAGNESIUM (test code = MAG) MG/DL 1.6-2.3 CBC W/AUTO [id number] 05:46:00 Test Item Value Reference Range Interpretation [...] 0.00 K/mm3 0.0-0.1 N NRBC#) BASIC METABOLIC [id number] 13:49:00 Test Item Value Reference Range Interpretation Comments SODIUM (test code = 136 MMOL/L 137-145 L NA) POTASSIUM (test code = 2.9 MMOL/L 3.5-5.1 L SPARROW D TO [place].V& K) READBACK ON AT 1348 BY Andrey D eGuzman CHLORIDE (test code = 98 MMOL/L 98-107 [...] code = 9.7 MG/DL 8.4-10.2 N CA) [id number] 13:49:00 Test Item Value Reference Range Interpretation Comments MAGNESIUM (test code = MAG) 1.4 MG/DL 1.6-2.3 L BASIC METABOLIC [id number] 13:48:00 Test Item Value Reference Range Interpretation [...] code = 9.7 MG/DL 8.4-10.2 N CA) [id number] 13:48:00 Test Item Value Reference Range Interpretation Comments MAGNESIUM (test code = MAG) MG/DL 1.6-2.3 - XR CHEST [id number] 13:35:00 Patient Name: WILI SABILLON Unit No: [id number] EXAMS: CPT CODE: [id number] XR CHEST 1V 16106 Location of dictation: B2 Portable chest one [...] endarterectomy. 2. Right lower lobe atelectasis. at 1335 Reported and signed by: Larissa Balderas M.D. CC: Katie Marc MD Technologist: [facility] STUDENT ; Alhaji Cha, RT(R) Transcrpt Date/Tm/Trnsp: 05/05/2019 (9008) LakePXC Orig Print D/T: S: 05/05/2019 (2679) AG Miguel NAME: WILI SABILLON [id number] PHYS: [place] [address] : 1945 AGE: 73 SEX: F LOC: Z.SI04 A PHONE #: [phone] EXAM DATE: 05/05/2019 STATUS: ADM IN FAX #: [phone] RADIOLOGY NO: PAGE 1 Signed ReportCBC W/AUTO [id number] 13:20:00 Test Item Value Reference Range Interpretation [...] 0.00 K/mm3 0.0-0.1 N NRBC#) ARTERIAL BLOOD [id number] 13:17:00 Test Item Value Reference Range Interpretation [...] (test code = 60 % COHBGFFIO2) PROTHROMBIN [id number] 13:06:00 Test Item Value Reference Range Interpretation [...] syste kyler embolism. 3.0 - 4.5 PTT [id number] 13:06:00 Test Item Value Reference Range Interpretation Comments PTT ACTIVATED (test code = APTT) 30.4 SECONDS 22.0-33.0 N HIV 12 AB [id number] 13:02:00 Test Item Value Reference Range Interpretation Comments HIV 1 2 COMBO AG/AB SCREEN AB/AG NON REACTIVE NONREACTIVE (test code = [id number]) CBC W/AUTO [id number] 12:51:00 Test Item Value Reference Range Interpretation [...] 0.00 K/mm3 0.0-0.1 N NRBC#) BASIC METABOLIC [id number] 12:21:00 Test Item Value Reference Range Interpretation [...] 9.9 MG/DL 8.4-10.2 N CA) BASIC METABOLIC [id number] 12:20:00 Test Item Value Reference Range Interpretation [...] code = MG/DL 8.7-9.7 CA) BASIC METABOLIC [id number] 12:18:00 Test Item Value Reference Range Interpretation [...] code = CA) MG/DL 8.7-9.7 BASIC METABOLIC [id number] 12:17:00 Test Item Value Reference Range Interpretation [...] CA) MG/DL 8.7-9.7 - XR CHEST 2 [id number] 11:39:00 Patient Name: WILI SABILLON Unit No: [id number] EXAMS: CPT CODE: [id number] XR CHEST 2 V 67415 LOCATION: T18 EXAM: CHEST 2 VIEWS INDICATION: [...] Jacqueline Jiménez, RT (R) Transcrpt Date/Tm/Trnsp: 05/04/2019 (2723) t.SDR.JP19 Orig Print D/T: S: 05/04/2019 (3762) [facility] NAME: WILI SABILLON [id number] PHYS: [place] [address] : 1945 AGE: 73 SEX: F LOC: Z.SRG PHONE #: [phone] EXAM DATE: 05/04/2019 STATUS: PRE SD FAX #: [phone] RADIOLOGY NO: PAGE 1 Signed ReportBASIC METABOLIC [...] code = 9.0 MG/DL 8.4-10.2 N CA) [id number] 05:09:00 Test Item Value Reference Range Interpretation Comments MAGNESIUM (test code = MAG) 1.8 MG/DL 1.6-2.3 N CBC W/AUTO [id number] 04:46:00 Test Item Value Reference Range Interpretation [...] 0.00 K/mm3 0.0-0.1 N NRBC#) BASIC METABOLIC [id number] 06:03:00 Test Item Value Reference Range Interpretation [...] code = 8.7 MG/DL 8.4-10.2 N CA) [id number] 06:03:00 Test Item Value Reference Range Interpretation Comments MAGNESIUM (test code = MAG) 2.1 MG/DL 1.6-2.3 N CBC W/AUTO [id number] 05:32:00 Test Item Value Reference Range Interpretation [...] 0.00 K/mm3 0.0-0.1 N NRBC#) ARTERIAL BLOOD [id number] 12:23:00 Test Item Value Reference Range Interpretation [...] = DENISE) result: FT/NC E dited by: THOMASBGG o n 10/01/18:618655 9 1222: DELIVE RY previously repo rted as: FT/NC ABG TEMPERATURE (test 37.0 C >37 code = TEMPA) ABG SITE (test code = AL SITEA) ALLENS TEST (test code NA CHECK = ALLENS) FIO2 (test code = 40 % COHBGFFIO2) ARTERY,[id number] 11:58:00 RUN DATE: 10/01/18 [facility] LAB PAGE 1 RUN TIME: 1158 Specimen Inquiry RUN USER: INTERFACE PATIENT: WILI SABILLON LOC: ENA U #: [id number] AGE/SX: 72/F ROOM: [facility] RE09/30/18[facility] DR: Rohith Cruz MD : [birth year] BED: A DIS: STATUS: ADM IN TLOC: SPEC #: [id number] RECD: 09/30/18 STATUS: DIEGO BYNUM #: [id number] GUS: 09/30/[address]: Rohith Cruz MD ENTERED: 09/30/18 SP TYPE: ARTERY, PL OTHR DR: Katie Marc MD, Nioti R MD Pepper, Gregory S MDORDERED: DECAL, SURG PATH LVL 3, SURG PATH LVL 4 CODES: [id number] - PLAQUE, NOS [id number] - ARTERY, NOS [id number] [id number] - CAROTID ARTERY ATHEROSCLEROSIS [id number] - CERVIX EXCISIONAL BIOP [id number] - LYMPH NODE, NOS COPIES TO: Katie Marc MD [address] [place] [address] [address] [place] [address] [email or web address] [address] [place] [address] [place] [address] [facility] [address] [place] [address] [place] [address] [facility] [address] [place] [address] ICD CODES: 440 - PROCEDURES: DECAL (10/01/18) SURG PATH LVL 3 (09/30/18) SURG PATH LVL 4 (09/30/18) TISSUES: A. ARTERY, NOS - RT ARTERY PLAQUE B. LYMPH NODE, NOS - RT CERVICAL LYMPH NODE CONTINUED ON NEXT PAGE RUN DATE: 10/01/18 [place] - LAB PAGE 2 RUN TIME: 1158 Specimen Inquiry RUN USER:INTERFACE SPEC #: [id number] PATIENT: WILI SABILLON #[id number] (Continued) CLINICAL HISTORY RIGHT INTERNAL CAROTID ARTERYSTENOSIS CPT CODES CPT CODE(S): 92684 , 35130 , 72415 , , , , FINAL DIAGNOSIS A. [...] 1158 END OF REPORT - XR CHEST [id number] 07:45:00 Patient Name: WILI SABILLON Unit No: [id number] EXAMS: CPT CODE: [id number] XR CHEST 1V 80336 EXAMINATION: - XR CHEST 1V. LOCATION: B2. [...] Jeffrey High, RT(R) Transcrpt Date/Tm/Trnsp: 10/01/2018 (0745) LakePR7 Orig Print D/T: S: 10/01/2018 (0748) [facility] NAME: WILI SABILLON [id number] PHYS: [place] [address] : 1945 AGE: 72 SEX: F LOC: Z.SI07 Stephy PHONE #: [phone] EXAM DATE: 10/01/2018 STATUS: ADM IN FAX #: [phone] RADIOLOGY NO: PAGE 1 Signed ReportBASIC METABOLIC [id number] 05:58:00 Test Item Value Reference Range Interpretation [...] code = 8.7 MG/DL 8.4-10.2 N CA) [id number] 05:58:00 Test Item Value Reference Range Interpretation Comments MAGNESIUM (test code = MAG) 1.7 MG/DL 1.6-2.3 N CBC W/AUTO [id number] 05:30:00 Test Item Value Reference Range Interpretation [...] code = 0.00 K/mm3 0.0-0.1 N NRBC#) [id number] 22:38:00 Test Item Value Reference Range Interpretation Comments POTASSIUM (test code = K) 3.3 MMOL/L 3.5-5.1 L [id number] 22:38:00 Test Item Value Reference Range Interpretation Comments MAGNESIUM (test code = MAG) 1.7 MG/DL 1.6-2.3 ARTERIAL BLOOD [id number] 17:57:00 Test Item Value Reference Range Interpretation [...] code = COHBGFFIO2) 40 % BASIC METABOLIC [id number] 16:18:00 Test Item Value Reference Range Interpretation [...] code = 8.9 MG/DL 8.4-10.2 N CA) [id number] 16:18:00 Test Item Value Reference Range Interpretation Comments MAGNESIUM (test code = MAG) 1.3 MG/DL 1.6-2.3 L CBC W/AUTO [id number] 16:06:00 Test Item Value Reference Range Interpretation [...] K/mm3 0.0-0.1 N NRBC#) - XR CHEST [id number] 15:29:00 Patient Name: WILI SABILLON Unit No: [id number] EXAMS: CPT CODE: [id number] XR CHEST 1V 98239 EXAM: CHEST ONE VIEW INDICATION: Postop LOCATION:B2 [...] (1529) LakeMD16 OrigPrint D/T: S: 09/30/2018 (1532) [facility] NAME: WILI SABILLON [address] PHYS: [place] [address] : 1945 AGE: 72 SEX: F LOC: Z.SI07 A PHONE #: [phone] EXAM DATE: 09/30/2018 STATUS: ADM IN FAX #: [phone] RADIOLOGY NO: PAGE 1 Signed ReportHIV 12 AB [id number] 19:14:00 Test Item Value Reference Range Interpretation Comments AB HIV 1 2 NON REACTIVE NON-REAC NOTE: A NONREA CTIVE (test code = RESULT INDICATE S THAT SPA95AH) HIV-1 AND HIV-2 ANTIBODIES HAVE NOT BEEN F OUND IN THIS PATIENT SP ECIMEN. ANON-REACTIVE R ESULT, HOWEVER, DOES N OT PRECLUDE PREVIOUSEXPOSUR E OR INFECTION WITH HIV1. AG HIV1 P24 NON REACTIVE NONE REAC (test code = ZXX3B50) PROTHROMBIN [id number] 14:22:00 Test Item Value Reference Range Interpretation [...] syste kyler embolism. 3.0 - 4.5 PTT [id number] 14:22:00 Test Item Value Reference Range Interpretation Comments PTT ACTIVATED (test code = APTT) 29.3 SECONDS 22.0-33.0 N BASIC METABOLIC [id number] 14:18:00 Test Item Value Reference Range Interpretation [...] 8.4-10.2 N CA) - XR CHEST 2 [id number] 14:14:00 Patient Name: WILI SABILLON Unit No: [id number] EXAMS: CPT CODE: [id number] XR CHEST 2 V 97412 EXAM: CHEST 2 VIEWS INDICATION: PRE-OP LOCATION: [...] Gay Wolfe, RT(R) Transcrpt Date/Tm/Trnsp: 09/29/2018 (1414) 16 Orig Print D/T: S: 09/29/2018 (9632) [facility] NAME: WILI SABILLON [id number] PHYS: [place] [address] : 1945 AGE: 72 SEX: F LOC: DarvinHU PHONE #: [phone] EXAM DATE: 09/29/2018 STATUS: PRE IN FAX #: [phone] RADIOLOGY NO: PAGE 1 Signed ReportCBC W/AUTO [id number] 13:57:00 Test Item Value Reference Range Interpretation [...] 0.00 K/mm3 0.0-0.1 N NRBC#) BASIC METABOLIC [id number] 06:04:00 Test Item Value Reference Range Interpretation [...] 0-189 mg/dL VERY HIGH...... ...>/= 190 mg/dL [id number] 06:04:00 Test Item Value Reference Range Interpretation Comments MAGNESIUM (test code = MAG) 1.9 MG/DL 1.6-2.3 N PROTHROMBIN [id number] 06:00:00 Test Item Value Reference Range Interpretation [...] kyler embolism. 3.0 - 4.5 Comments to Building Cleaner: WILL BRING TO LABPTT [id number] 06:00:00 Test Item Value Reference Range Interpretation Comments PTT ACTIVATED (test code = APTT) 29.3 SECONDS 22.0-33.0 N Comments to Building Cleaner: WILL BRING TO LABBASIC METABOLIC [id number] 05:54:00 Test Item Value Reference Range Interpretation [...] LDL (test MG/DL 0-99 code = LDL) [id number] 05:54:00 Test Item Value Reference Range Interpretation Comments MAGNESIUM (test code = MAG) 1.9 MG/DL 1.6-2.3 N CBC W/AUTO [id number] 05:41:00 Test Item Value Reference Range Interpretation [...]
--- NOTE | 2021-03-10 22:00 | RAD REPORT ---
EXAM DESCRIPTION: Niall Single View03/10/2021 9:54 pm CLINICAL HISTORY: Dizziness COMPARISON: September 2020 FINDINGS: Lungs are hyperaerated. The lungs appear clear of acute infiltrate. The heart is normal size . Ascending thoracic aortic aneurysm without obvious change
[2021-03-10 23:14] LABS: Absolute Lymphocytes (CBC) 0.8 K/uL (0.7-4.9); Basophils % 1.2 % (0-1.3); Hematocrit 37.1 % (36.0-45.0); MPV 7.3 fL (7.6-11.3)
[2021-03-10 23:15] LABS: Urine Blood 1+ (Negative); Urine Glucose Negative (Negative); Urine Protein Negative (Negative)
[2021-03-10 23:51] LABS: Protime INR 0.96
[2021-03-11 00:14] LABS: ALT/SGPT 21 U/L (12-78); Albumin 3.6 g/dL (3.4-5.0); Alkaline Phosphatase 86 U/L (45-117); BUN Blood Urea Nitrogen 14 mg/dL (7-18); Bicarbonate 30 mmol/L (21-32); Bilirubin Direct < 0.1 mg/dL (0-0.2); Bilirubin Total 0.5 mg/dL (0.2-1.0); Glucose Level 94 mg/dL (74-106); NT PRO-BNP 235 pg/mL (<125); Protein, Total 8.4 g/dL (6.4-8.2); Sodium Level 132 mmol/L (136-145); Troponin (Emerg Dept Use Only) < 0.02 ng/mL (0.0-0.045)
[2021-03-11 00:15] LABS: AST/SGOT 24 U/L (15-37); Magnesium 1.7 mg/dL (1.8-2.4); Potassium 4.5 mmol/L (3.5-5.1)
[2021-03-11 01:20] LABS: Urine Blood Trace-intact (Negative); Urine Glucose Negative (Negative); Urine Protein Negative (Negative)
[2021-03-11] MEDS ORDERED: CEFTRIAXONE 1000 MG/VIAL ONE (02:11)
[2021-03-11] MEDS ORDERED: NA CHLORIDE 0.9% 50 ML ONE (02:11)
[2021-03-11 02:32] LABS: Urine Bacteria 20-50 /HPF (<20)
--- NOTE | 2021-03-11 03:36 | RAD REPORT ---
EXAM DESCRIPTION: CT - Chest For Pe Angio - 03/11/2021 2:01 am CLINICAL HISTORY: Shortness of breath COMPARISON: September 2020 TECHNIQUE: Dynamically enhanced axial 3 mm thick images of the chest were obtained during administra tion of <100> mL Isovue 370 IV contrast. Coronal and oblique reconstruction images were generated and reviewed. Exam utilizes a protocol for optimal evaluation of pulmonary arterial tree. Maximum intensity projections 3D imaging was utilized All CT scans are performed using dose optimization technique as appropriate and may include automated exposure control or mA/KV adjustment according to patient size. FINDINGS: A pulmonary embolus is not seen. The ascending thoracic aorta has an AP diameter 4.2 centimeters. A pleural effusion is not seen. A pericardial effusion is not seen. A lung consolidation is not present. IMPRESSION: Negative for a pulmonary embolism.
--- NOTE | 2021-03-11 04:35 | ER ---
Nurse's Notes [facility] Name: Racheal Dia Age: 75 yrs Sex: Female : 1945 Arrival Date: 03/10/2021 Time: 13:54 Bed 5 Private MD: Jeremi Alaniz Diagnosis: Dizziness and giddiness;UTI/ Urinary tract infection, site not specified;Essential (primary) hypertension Presentation: 03/10 14:19 Chief complaint: Patient states: Dizziness x 2 weeks. Pt was told to cut her BP ss medication in half, but is not feeling any better. Coronavirus screen: Client denies travel out of the [place] in the last 14 days. Ebola Screen: Patient denies exposure to infectious person. Patient denies travel to an Ebola-affected area in the 21 days before illness onset. Initial Sepsis Screen: Does the patient meet any 2 criteria? No. Patient's initial sepsis screen is negative. Does the patient have a suspected source of infection? No. Patient's initial sepsis screen is negative. Risk Assessment: Do you want to hurt yourself or someone else? Patient reports no desire to harm self or others. Onset of symptoms was February 24, 2021. 14:19 Method Of Arrival: Ambulatory ss 14:19 Acuity: AISHA 3 ss Historical: - Allergies: 14:20 No Known Allergies; ss - PMHx: 14:20 CHF; Hypertension; ss - Immunization history:: Client reports receiving the 2nd dose of the Covid vaccine. - Social history:: Smoking status: Patient/guardian denies using tobacco, but has a distant history of tobacco abuse. Screenin:30 Abuse screen: Denies threats or abuse. Nutritional screening: No deficits noted. cc4 Tuberculosis screening: No symptoms or risk factors identified. Fall Risk None identified. Assessment: 21:30 Reassessment: Patient appears in no apparent distress at this time. General: Appears in cc4 no apparent distress. comfortable, Behavior is calm, cooperative. Pain: Denies pain. Neuro: No deficits noted. Level of Consciousness is awake, alert, obeys commands, Oriented to person, place, time, situation. Cardiovascular: No deficits noted. Capillary refill < 3 seconds fingers cool with gloves intact bilateral hands; reports hands "Stay cold".. Hypertensive. Rhythm is sinus rhythm. Respiratory: No deficits noted. Airway is patent Respiratory effort is even, unlabored, Respiratory pattern is regular, symmetrical. GI: No signs and/or symptoms were reported involving the gastrointestinal system. : No signs and/or symptoms were reported regarding the genitourinary system. EENT: No signs and/or symptoms were reported regarding the EENT system. Derm: No deficits noted. Skin is intact. Musculoskeletal: No deficits noted. Range of motion: intact in all extremities, # 20 g angiocath inserted right FA x 1 attempt with inability to draw blood but flushes easily with no s/sx's of infiltration, adelaida. well; Lab notified of need to draw blood. 21:30 Pain: Denies pain. cc4 21:45 Reassessment: EKG done. cc4 21:52 Reassessment: Orthostatic vital signs done with hypertension continued noted and given cc4 to Dr. Orantes. 03/11 01:30 Reassessment: BP remains elevated; Dr. Orantes notified with okay to give patients home cc4 medication Amlodipine 5 mg by mouth \\T\\ given with no difficulty; family member \\T\\ bedside; reports continued dizziness. Vital Signs: 03/10 14:19 Weight 63.5 kg; Height 5 ft. 1 in. (154.94 cm); Pain 0/10; ss 14:20 BP 162 / 89; Pulse 67; Resp 16; Temp 98.1(O); Pulse Ox 98% on R/A; ss 21:52 BP 198 / 105 Supine; Pulse 87; Resp 18 S; Pulse Ox 97% on R/A; cc4 21:54 BP 186 / 108 Sitting; Pulse 89; Resp 20 S; Pulse Ox 99% on R/A; cc4 21:56 BP 155 / 102 Standing; Pulse 87; Resp 20 S; Pulse Ox 100% on R/A; cc4 23:26 BP 164 / 113; Pulse 79; Resp 18; Pulse Ox 99% on R/A; df1 03/11 01:30 BP 207 / 107; Pulse 89; Resp 18 S; Pulse Ox 98% on R/A; cc4 02:34 BP 197 / 114; Pulse 88; Resp 18; Pulse Ox 98% on R/A; df1 03:17 BP 169 / 105; Pulse 82; Resp 18; Pulse Ox 97% on R/A; df1 03/10 14:19 Body Mass Index 26.45 (63.50 kg, 154.94 cm) ED Course: 03/10 13:54 Patient arrived in ED. mr 13:54 Jeremi Alaniz DO is Private Physician. mr 14:20 Triage completed. 14:20 Arm band placed on right wrist. 21:02 Jose G Orantes MD is Attending Physician. [facility] 21:18 Lillian Navarro, RN is Primary Nurse. cc4 21:30 Patient has correct armband on for positive identification. Bed in low position. Call cc4 light in reach. Side rails up X2. fishing floats assembler on. Pulse ox on. NIBP on. 21:54 XRAY Chest (1 view) In Process Unspecified. EDMS 22:05 Basic Metabolic Panel Sent. df1 22:05 CBC with Diff Sent. df1 22:06 CT Head Brain wo Cont Sent. cc4 22:06 LFT's Sent. cc4 22:06 Magnesium Sent. cc4 22:06 NT PRO-BNP Sent. cc4 22:06 PT-INR Sent. cc4 22:06 Troponin (emerg Dept Use Only) Sent. cc4 22:33 CT Head Brain wo Cont In Process Unspecified. EDMS 23:35 Lab(s) recollected, by me, sent to lab. chuyita 03/11 02:01 CT Chest For PE Angio In Process Unspecified. EDMS 05:16 No provider procedures requiring assistance completed. IV discontinued, intact, df1 bleeding controlled, No redness/swelling at site. Pressure dressing applied. Administered Medications: 02:14 Drug: Rocephin (cefTRIAXone) 1 grams Route: IV; Rate: per protocol; Site: right df1 antecubital; Outcome: 04:34 Discharge ordered by . [facility] 05:16 Discharged to home ambulatory. df1 05:16 Condition: good 05:16 Discharge instructions given to patient, Instructed on discharge instructions, follow up and referral plans. medication usage, Demonstrated understanding of instructions, follow-up care, medications, Prescriptions given X 1. 05:17 Patient left the ED. df1 Signatures: Dispatcher [employer] EDNH JensStephanie HenriquezSia, Shagufta Cameron RN, RN RN Jose G Orantes MD MD [facility] Lillian Navarro RN RN [facility] Lindsay Hernandez df1 Corrections: (The following items were deleted from the chart) 03/10 22:13 19:45 Reassessment: EKG done. 4 [facility] 19:30 Reassessment: Patient appears in no apparent distress at this time. 4 [facility] 19:30 General: Appears in no apparent distress. comfortable, Behavior is calm, cc4 cooperative, [facility] 19:30 Pain: Denies pain. 4 [facility] 19:30 Neuro: No deficits noted. Level of Consciousness is awake, alert, obeys commands, cc4 Oriented to person, place, time, situation, [facility] 19:30 Cardiovascular: No deficits noted. Capillary refill < 3 seconds fingers cool with cc4 gloves intact bilateral hands; reports hands "Stay cold".. Hypertensive. Rhythm is sinus rhythm [facility] 19:30 Respiratory: No deficits noted. Airway is patent Respiratory effort is even, cc4 unlabored, Respiratory pattern is regular, symmetrical, [facility] 19:30 GI: No signs and/or symptoms were reported involving the gastrointestinal system. 4 [facility] 19:30 : No signs and/or symptoms were reported regarding the genitourinary system. [facility] : 19:30 EENT: No signs and/or symptoms were reported regarding the EENT system. 4 [facility] : 19:30 Derm: No deficits noted. Skin is intact, 4 [facility] 19:30 Musculoskeletal: No deficits noted. Range of motion: intact in all extremities, # cc4 20 g angiocath inserted right FA x 1 attempt with inability to draw blood but flushes easily with no s/sx's of infiltration, adelaida. well; Lab notified of need to draw blood. [facility] 03/11 02:23 01:00 BP 207 / 107; Pulse 89bpm; Resp 18bpm; Spontaneous; Pulse Ox 98% RA; [facility] 02:40 03/10 21:52 Reassessment: Orthostatic vital signs done with hypertension continued cc4 noted. 4 03/11 02:42 03/10 21:30 PMHx: Hypothyroidism; 4 4
--- NOTE | 2021-03-11 04:35 | EDPHYS ---
Physician Documentation [facility] Name: Racheal Dia Age: 75 yrs Sex: Female : 1945 Arrival Date: 03/10/2021 Time: 13:54 Bed 5 Private MD: [facility] ED Physician Jose G Orantes HPI: 03/10 21:27 This 75 yrs old Black Female presents to ER via Ambulatory with complaints of mh7 Dizziness, Blood Pressure Problem. 21:27 The patient presents with dizziness, lightheadedness. Onset: The symptoms/episode mh7 began/occurred 2 week(s) ago. Context: occurred at home, occurred while the patient was standing, walking, just prior to the episode the patient experienced no apparent symptoms. Modifying factors: The symptoms are alleviated by Sitting down, the symptoms are aggravated by standing up. Associated signs and symptoms: Pertinent negatives: abdominal pain, agitation, ataxia, blurred vision, chest pain, combativeness, confusion, diaphoresis, focal weakness, head injury, headache, nausea, near-syncope, numbness, palpitations, , seizure, shortness of breath, syncope, tingling, vomiting. Severity of symptoms: At their worst the symptoms were mild 7 day(s) ago, in the emergency department the symptoms are unchanged. Patient's baseline: Neuro: alert and fully oriented, Motor: no deficits, Ambulation: walks without assistance, Speech: normal. Historical: - Allergies: 14:20 No Known Allergies; ss - PMHx: 14:20 CHF; Hypertension; ss - Immunization history:: Client reports receiving the 2nd dose of the Covid vaccine. - Social history:: Smoking status: Patient/guardian denies using tobacco, but has a distant history of tobacco abuse. ROS: 21:27 Constitutional: Negative for fever, chills, and weight loss, Eyes: Negative for injury, mh7 pain, redness, and discharge, ENT: Negative for injury, pain, and discharge, Neck: Negative for injury, pain, and swelling, Cardiovascular: Negative for chest pain, palpitations, and edema, Respiratory: Negative for shortness of breath, cough, wheezing, and pleuritic chest pain, Abdomen/GI: Negative for abdominal pain, nausea, vomiting, diarrhea, and constipation, Back: Negative for injury and pain, : Negative for injury, bleeding, discharge, and swelling, MS/Extremity: Negative for injury and deformity, Skin: Negative for injury, rash, and discoloration, Neuro: Negative for headache, weakness, numbness, tingling, and seizure, Psych: Negative for depression, anxiety, suicide ideation, homicidal ideation, and hallucinations, Allergy/Immunology: Negative for hives, rash, and allergies, Endocrine: Negative for neck swelling, polydipsia, polyuria, polyphagia, and marked weight changes, Hematologic/Lymphatic: Negative for swollen nodes, abnormal bleeding, and unusual bruising. Exam: 21:27 Constitutional: This is a well developed, well nourished patient who is awake, alert, mh7 and in no acute distress. Head/Face: Normocephalic, atraumatic. Eyes: Pupils equal round and reactive to light, extra-ocular motions intact. Lids and lashes normal. Conjunctiva and sclera are non-icteric and not injected. Cornea within normal limits. Periorbital areas with no swelling, redness, or edema. Neck: Trachea midline, no thyromegaly or masses palpated, and no cervical lymphadenopathy. Supple, full range of motion without nuchal rigidity, or vertebral point tenderness. No Meningismus. Chest/axilla: Normal chest wall appearance and motion. Nontender with no deformity. No lesions are appreciated. Cardiovascular: Regular rate and rhythm with a normal S1 and S2. No gallops, murmurs, or rubs. Normal PMI, no JVD. No pulse deficits. Respiratory: Lungs have equal breath sounds bilaterally, clear to auscultation and percussion. No rales, rhonchi or wheezes noted. No increased work of breathing, no retractions or nasal flaring. Abdomen/GI: Soft, non-tender, with normal bowel sounds. No distension or tympany. No guarding or rebound. No evidence of tenderness throughout. Back: No spinal tenderness. No costovertebral tenderness. Full range of motion. Skin: Warm, dry with normal turgor. Normal color with no rashes, no lesions, and no evidence of cellulitis. MS/ Extremity: Pulses equal, no cyanosis. Neurovascular intact. Full, normal range of motion. Neuro: Awake and alert, GCS 15, oriented to person, place, time, and situation. Cranial nerves II-XII grossly intact. Motor strength 5/5 in all extremities. Sensory grossly intact. Cerebellar exam normal. Normal gait. Psych: Awake, alert, with orientation to person, place and time. Behavior, mood, and affect are within normal limits. Vital Signs: 14:19 Weight 63.5 kg; Height 5 ft. 1 in. (154.94 cm); Pain 0/10; ss 14:20 BP 162 / 89; Pulse 67; Resp 16; Temp 98.1(O); Pulse Ox 98% on R/A; ss 21:52 BP 198 / 105 Supine; Pulse 87; Resp 18 S; Pulse Ox 97% on R/A; cc4 21:54 BP 186 / 108 Sitting; Pulse 89; Resp 20 S; Pulse Ox 99% on R/A; cc4 21:56 BP 155 / 102 Standing; Pulse 87; Resp 20 S; Pulse Ox 100% on R/A; cc4 23:26 BP 164 / 113; Pulse 79; Resp 18; Pulse Ox 99% on R/A; df1 03/11 01:30 BP 207 / 107; Pulse 89; Resp 18 S; Pulse Ox 98% on R/A; cc4 02:34 BP 197 / 114; Pulse 88; Resp 18; Pulse Ox 98% on R/A; df1 03:17 BP 169 / 105; Pulse 82; Resp 18; Pulse Ox 97% on R/A; df1 03/10 14:19 Body Mass Index 26.45 (63.50 kg, 154.94 cm) MDM: 04:33 Differential diagnosis: cardiac arrhythmia, hypovolemia, idiopathic dizziness, mh7 near-syncope, syncope, vertigo. Data reviewed: vital signs, nurses notes, old medical records, lab test result(s), cardiac enzymes, CBC, electrolytes, urinalysis, EKG, radiologic studies, CT scan, plain films. Data interpreted: Pulse oximetry: on room air is 97 %. Interpretation: normal. Counseling: I had a detailed discussion with the patient and/or guardian regarding: the historical points, exam findings, and any diagnostic results supporting the discharge/admit diagnosis, the presence of at least one elevated blood pressure reading (>120/80) during this emergency department visit, lab results, radiology results, the need for outpatient follow up. Response to treatment: the patient's symptoms have resolved after treatment, the patient's blood pressure is in an acceptable range, mental status has returned to baseline, the patient no longer shows bradycardia, the patient is not short of breath, the patient is not tachycardic, the patient's pain is gone, the patient's temperature has normalized. 04:34 Patient medically screened. [facility] 03/10 21:13 Order name: Basic Metabolic Panel; Complete Time: 00:26 [facility] 03/10 21:13 Order name: CBC with Diff; Complete Time: 23:47 [facility] 03/10 21:13 Order name: LFT's; Complete Time: 00:26 [facility] 03/10 21:13 Order name: Magnesium; Complete Time: 00:26 [facility] 03/10 21:13 Order name: NT PRO-BNP; Complete Time: 00:26 [facility] 03/10 21:13 Order name: PT-INR; Complete Time: 00:10 [facility] 03/10 21:13 Order name: Troponin (emerg Dept Use Only); Complete Time: 00:26 [facility] 03/10 21:13 Order name: XRAY Chest (1 view); Complete Time: 22:00 [facility] 03/10 21:13 Order name: CT Head Brain wo Cont [facility] 03/10 23:14 Order name: Urine Dipstick-Ancillary; Complete Time: 23:47 EDMS 03/11 00:27 Order name: Urine Microscopic Only; Complete Time: 02:45 [facility] 03/11 00:27 Order name: Urine Culture [facility] 03/11 00:37 Order name: CT Chest For PE Angio; Complete Time: 04:04 [facility] 03/11 01:20 Order name: Urine Dipstick-Ancillary; Complete Time: 02:45 [facility] 03/10 21:13 Order name: EKG; Complete Time: 21:14 [facility] 03/10 21:13 Order name: Cardiac monitoring; Complete Time: 21:50 [facility] 03/10 21:13 Order name: EKG - Nurse/Tech; Complete Time: 21:50 [facility] 03/10 21:13 Order name: IV Saline Lock; Complete Time: 21:50 [facility] 03/10 21:13 Order name: Labs collected and sent; Complete Time: 22:05 [facility] 03/10 21:13 Order name: O2 Per Protocol; Complete Time: 23:15 [facility] 03/10 21:13 Order name: O2 Sat Monitoring; Complete Time: 21:50 [facility] 03/10 21:13 Order name: Urine Dipstick-Ancillary (obtain specimen); Complete Time: 23:15 [facility] 03/10 21:17 Order name: Orthostatics; Complete Time: 21:57 [facility] Administered Medications: 02:14 Drug: Rocephin (cefTRIAXone) 1 grams Route: IV; Rate: per protocol; Site: right df1 antecubital; Disposition Summary: 03/11/21 04:34 Discharge Ordered Location: Home [facility] Problem: an ongoing problem [facility] Symptoms: have improved [facility] Condition: Stable [facility] Diagnosis - Dizziness and giddiness [facility] - UTI/ Urinary tract infection, site not specified [facility] - Essential (primary) hypertension [facility] Followup: [facility] - With: Private Physician - When: 1 - 2 days - Reason: Worsening of condition, Recheck today's complaints, Continuance of care, Re-evaluation by your physician Discharge Instructions: - Discharge Summary Sheet [facility] - Urinary Tract Infection, Adult, [id number] [facility] - Hypertension, Adult, [id number] [facility] - Dizziness, [id number] [facility] Forms: - Medication Reconciliation Form [facility] - Thank You Letter [facility] - Antibiotic Education [facility] - Prescription Opioid Use [facility] Prescriptions: - Cephalexin 500 mg Oral Capsule - take 1 capsule by ORAL route every 12 hours for 7 days; 14 capsule; Refills: 0, [facility] Product Selection Permitted Signatures: Dispatcher [employer] Shagufta Tejeda RN RN ss Holmes, Maurice, MD MD [facility] Nathan Marquez PA PA ej Cooper, Christie, RN RN cc4 Lindsay Hernandez df1 Corrections: (The following items were deleted from the chart) 02:42 03/10 21:30 PMHx: Hypothyroidism; cc4 cc4
[2021-03-11 05:24] VITALS: TEMP 98.1
[2021-03-11 05:34] VITALS: BP 169/105; O2SAT 97
--- NOTE | 2021-03-11 18:21 | RAD REPORT ---
EXAM DESCRIPTION: CT - Head Brain Wo Cont - 03/11/2021 6:29 am CLINICAL HISTORY: 75 years, Female, DIZZINESS COMPARISON: 09/27/2020. FINDINGS: Multiple transaxial tomograms of the brain were obtained from the base of the skull to the vertex without contrast. 2-D multiplanar reformats and the coronal and sagittal plane were performed and reviewed. This exam was performed according to our departmental dose-optimization protocol, which includes auto mated exposure control, adjustment of the mA and/or kV according to patient size and/or use of iterat katharine reconstruction technique. Brain parenchyma demonstrate to be within normal limits. There is normal fox-white matter differenti ation. There is moderate periventricular white matter changes of microvascular ischemia. There is no midline shift and/or mass effect. There is no evidence for acute intracranial hemorrhage. Lateral v entricles and cisterns displace normal appearance. No intra or extra axial fluid collections were s een. The calvarium is intact with no evidence for fracture. The visualized portions of the paranasal sinuses and orbits demonstrate to be clear. IMPRESSION: No acute intracranial pathology identified. 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 The interpreting radiologist is fully responsible for the content of the report.
== END 2021-03-11 05:17 | disposition home or self-care (01) ==
LOC: ER 13:47
DX: N39.0 Urinary tract infection, site not specified (principal); I10 Essential (primary) hypertension
CPT/HCPCS: 93005; 87088; 85025; 87086; 80048; 36415; 83735; 85610; 80076; 81003; 84484; 83880; 70450; 71275; 71045; 96374; 99284; Q9967; 81015

== ENCOUNTER 2021-08-27 10:46 | Emergency (ER) | payer OTHER ==
--- OUTSIDE RECORDS SUMMARY | 2021-08-27 10:51 | XMS REPORT | Continuity of Care Document ---
:1945 Author Organization [facility] t Address [address] [place] [address] Care Team Providers Name Role Phone Harrison Alaniz Attending Clinician Unavailable Corrie Cruz Attending Clinician Unavailable Andrea Marc Admitting Clinician Unavailable Payers Payer Name Policy Type Policy Number Effective Date Expiration Date S [facility] [place] [id number] 2011 \T\ B 00:00:00 Problems This patient has no known problems. Allergies, Adverse Reactions, Alerts Allergy Allergy Status Severity Reaction(s) Onset Inactive Treating Comm ents Source Name Type Date Date Clinician No Known DA Active U 2019-0 [facility] s 00:00: [address] No Known DA Active U 0 [facility] 05-04 s 00:00: [address] No Known DA Active U 0 [facility] 09-29 [facility] 00:00: [address] No Known DA Active U [facility] 09-29 [facility] 00:00: [address] No Known DA Active U 2008-0 [facility] - [facility] Allergie 00:00: [address] No Known DA Active U 2008-0 [facility] Allergie 00:00: [address] No Known DA Active U 2008-0 [facility] Allergie 00:00: [address] No Known DA Active U 2009-0 [facility] Allergie 00:00: [address] NO KNOWN Drug Active [facility] ALLERGIE Class ity of S [facility] Medications Ordered Filled Start Stop Current Ordering Indication Dosage Frequency Signature Comments Components Source Medication Medication Date Date Medication? Clinician (SIG) Name Name Losartan Losartan Yes Jeremi 1 tablet C ommon Potassium-H Potassium-H Alaniz [facility] Polyethylen Polyethylen Yes Jereim not Common e Glycol e Glycol Alaniz defined [facility] MiraLax MiraLax Yes Jeremi not Common Alaniz defined [facility] Atorvastati Atorvastati Yes Jeremi 1 tablet Common n Calcium n Calcium Alaniz [facility] Aspirin 81 Aspirin 81 Yes Jeremi 1 tablet Common Alaniz [facility] Pantoprazol Pantoprazol Yes Jeremi 1 tablet Common e Sodium e Sodium Alaniz [facility] Sodium Sodium Yes Jeremi not Common Chloride Chloride Alaniz defined [facility] Potassium Potassium Yes Jeremi TAKE 1 C ommon Chloride Chloride Alaniz TABLET BY S pirit Li ER Li ER MOUTH ONCE - C HI DAILY [facility] Metoprolol Metoprolol Yes Jeremi TAKE 1 Common Tartrate Tartrate Alaniz TABLET BY S pirit MOUTH ONCE - [facility] DAILY WITH [facility] 90 DAYS [facility] Levothyroxi Levothyroxi Yes Jeremi 1 tablet Common ne Sodium ne Sodium Alaniz in the Sp pawan morning on - [facility] an empty [facility] Metoprolol Metoprolol Yes Jeremi 1 tablet Common Tartrate Tartrate Alaniz with food [facility] Clopidogrel Clopidogrel Yes Jeremi 1 tablet Common Bisulfate Bisulfate Alaniz [facility] Docusate Docusate Yes Jeremi 1 capsule Common Sodium Sodium Alaniz as needed [facility] Potassium Potassium Yes Jeremi 1 packet Common Chloride Chloride Alaniz with food [facility] penicillin penicillin Yes Jeremi not C ommon Alaniz defined [facility] Procedures Procedure Date / Time Performed Performing Clinician Stefani stark [id number] 2019-05-05 00:00:00 [facility] [id number] 2019-05-05 00:00:00 [facility] Encounters Start End Encounter Admission Attending Care Care Encounter Source Date/Time Date/Time Type Type Clinicians Facility Department ID 2021-05-10 Outpatient Alaniz, STLMLC STLMLC [id number] Common 14:23:26 Jeremi [id number] [facility] 2021-05-10 Outpatient Alaniz, STLMLC STLMLC [id number] Common 14:18:25 Jeremi [id number] [facility] 2021-05-10 Outpatient Alaniz, STLMLC STLMLC [id number] Common 12:07:25 Jeremi [id number] [facility] 2021-05-10 Outpatient Alaniz, STLMLC STLMLC [id number] Common 11:22:27 Jeremi [id number] [facility] 2021-05-10 Outpatient STLMLC STLMLC [id number] Common 11:15:02 [id number] [facility] 2019-05-05 Inpatient TAMEKA Cruz, YAKOVWU SURG [id number] [facility] 10:30:[id number] [facility] 2021-06-26 2021-06-26 ambulatory STLMLC STLMLC [id number] Common 00:00:00 00:00:00 [facility] 2021-03-27 2021-03-27 ambulatory STLMLC STLMLC [id number] Common 00:00:00 00:00:00 [facility] 2021-03-13 2021-03-13 ambulatory STLMLC STLMLC [id number] Common 00:00:00 00:00:00 [facility] 2021-03-06 2021-03-06 ambulatory STLMLC STLMLC [id number] Common 00:00:00 00:00:00 [facility] 2021-02-10 2021-02-10 Outpatient STLMLC STLMLC [id number] Common 00:00:00 00:00:00 [facility] 2020-12-23 2020-12-23 Outpatient STLMLC STLMLC [id number] Common 00:00:00 00:00:00 [facility] 2020-11-24 2020-11-24 Outpatient STLMLC STLMLC [id number] Common 00:00:00 00:00:00 [facility] 2020-09-29 2020-09-29 Outpatient STLMLC STLMLC [id number] Common 00:00:00 00:00:00 [facility] 2020-09-27 2020-09-27 Outpatient STLMLC STLMLC [id number] Common 00:00:00 00:00:00 [facility] 2020-09-26 2020-09-26 Outpatient STLMLC STLMLC [id number] Common 00:00:00 00:00:00 [facility] 2020-09-26 2020-09-26 Outpatient STLMLC STLMLC [id number] Common 00:00:00 00:00:00 [facility] 2020-09-19 2020-09-19 Outpatient STLMLC STLMLC [id number] Common 00:00:00 00:00:00 [facility] 2020-07-02 2020-07-02 Outpatient [facility] [id number] Univers 11:05:00 11:05:[address] [facility] 2020-06-11 2020-06-11 Outpatient [facility] [id number] Univers 11:30:00 11:30:[address] [facility] 2020-04-05 2020-04-05 Outpatient STLMLC STLMLC [id number] Common 00:00:00 00:00:00 [facility] 2020-03-08 2020-03-08 Outpatient STLMLC STLMLC [id number] Common 00:00:00 00:00:00 [facility] 2020-03-08 2020-03-08 Outpatient STLMLC STLMLC [id number] Common 00:00:00 00:00:00 [facility] 2019-12-03 2019-12-03 [id number] Common 09:15:00 09:15:[address] [place] [address] [facility] 2019-11-19 2019-11-19 [facility] [id number] Common 15:09:00 15:09:00 [address] [place] [address] [facility] 2019-09-03 2019-09-03 [facility] [id number] Common 11:00:00 11:00:00 [address] [place] [address] [facility] 2019-09-03 2019-09-03 [facility] [id number] Common 10:45:00 10:45:00 [address] [place] [address] [facility] 2019-07-23 2019-07-23 [facility] [id number] Common 09:24:00 09:24:00 [address] [place] [address] [facility] 2019-07-11 2019-07-11 [facility] [id number] Common 13:05:00 13:05:00 [address] [place] [address] [facility] 2019-06-30 2019-06-30 [id number] Common 14:15:00 14:15:00 [address] [place] [address] [facility] Results Test Description Test Time Test Comments Results Result [facility] e Comments ARTERY,PLAQUE 2019-05-07 10:05:00 ----RUN DATE: 05/07/19 [facility] LAB PAGE 1 RUN TIME: 1005 Specimen Inquiry RUN USER: INTERFACE ----PATIENT: WILI SABILLON LOC: ENA U #: [id number] AGE/SX: 73/F ROOM: 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 ARTERY, NOS - LT CAROTID PLAQUE B. LYMPH NODE, NOS - LT CERVICAL LYMPH NODE CONTINUED ON NEXT PAGE ----RUN DATE: 05/07/19 [facility] - LAB PAGE 2 RUN TIME: 1005 Specimen Inquiry RUN USER: INTERFACE ----SPEC #: [id number] PATIENT: WILI SABILLON #[id number] (Continued) CLINICAL HISTORY LEFT INTERNAL CAROTID ARTERY STENOSIS CPT CODES CPT CODE(S): 57178 , 59406 , 05903 , , , , FINAL DIAGNOSIS A. [...] CA) 9.6 MG/DL 8.4-10.2 N BASIC METABOLIC [id number] 04:40:00 Test Item Value Reference Range Interpretation [...] code = MG/DL 8.7-9.7 CA) BASIC METABOLIC [id number] 04:38:00 Test Item Value Reference Range Interpretation [...] code = CA) MG/DL 8.7-9.7 BASIC METABOLIC [id number] 04:37:00 Test Item Value Reference Range Interpretation [...] code = CA) MG/DL 8.7-9.7 CBC W/AUTO [id number] 04:18:00 Test Item Value Reference Range Interpretation [...] K/mm3 0.0-0.1 N NRBC#) - XR CHEST [id number] 09:05:00 Patient Name: WILI SABILLON Unit No: [id number] EXAMS: CPT CODE: [id number] XR CHEST 1V 67589 Site ID: [id number] HISTORY: Postoperative, left ICA [...] Holliday MD CC: Katie Marc MD Technologist: RT Ankur(R) Transcrpt Date/Tm/Trnsp: 05/06/2019 (09) t.[email or web address].AJP6 Orig Print D/T: S: 05/06/2019 (0908) [facility] NAME: WILI SABILLON [id number] PHYS: Roh[place] [address] : 1945 AGE: 73 SEX: F LOC: Z.SI04 A PHONE #: [phone] EXAM DATE: 05/06/2019 STATUS: ADM IN FAX #: [phone] RADIOLOGY NO: PAGE 1 Signed ReportBASIC METABOLIC [id number] 06:09:00 Test Item Value Reference Range Interpretation [...] code = 9.4 MG/DL 8.4-10.2 N CA) [id number] 06:09:00 Test Item Value Reference Range Interpretation Comments MAGNESIUM (test code = MAG) 1.5 MG/DL 1.6-2.3 L BASIC METABOLIC [id number] 05:59:00 Test Item Value Reference Range Interpretation [...] CALCIUM (test code = CA) MG/DL 8.7-9.7 [id number] 05:59:00 Test Item Value Reference Range Interpretation Comments MAGNESIUM (test code = MAG) MG/DL 1.6-2.3 CBC W/AUTO [id number] 05:46:00 Test Item Value Reference Range Interpretation [...] 0.00 K/mm3 0.0-0.1 N NRBC#) BASIC METABOLIC [id number] 13:49:00 Test Item Value Reference Range Interpretation [...] code = 9.7 MG/DL 8.4-10.2 N CA) [id number] 13:49:00 Test Item Value Reference Range Interpretation Comments MAGNESIUM (test code = MAG) 1.4 MG/DL 1.6-2.3 L BASIC METABOLIC [id number] 13:48:00 Test Item Value Reference Range Interpretation [...] code = 9.7 MG/DL 8.4-10.2 N CA) [id number] 13:48:00 Test Item Value Reference Range Interpretation Comments MAGNESIUM (test code = MAG) MG/DL 1.6-2.3 - XR CHEST [id number] 13:35:00 Patient Name: WILI SABILLON Unit No: [id number] EXAMS: CPT CODE: [id number] XR CHEST 1V 06525 Location of dictation: B2 Portable chest one [...] endarterectomy. 2. Right lower lobe atelectasis. at 1336 Reported and signed by: Larissa Balderas M.D. CC: Katie Marc MD Technologist: [facility] STUDENT ; Alhaji Cha, RT(R) Transcrpt Date/Tm/Trnsp: 05/05/2019 (5210) t.[email or web address].[email or web address] Orig Print D/T: S: 05/05/2019 (6607) [facility] NAME: WILI SABILLON [id number] PHYS: Roh[place] [address] : 1945 AGE: 73 SEX: F LOC: Z.SI04 A PHONE #: [phone] EXAM DATE: 05/05/2019 STATUS: ADM IN FAX #: [phone] RADIOLOGY NO: PAGE 1 Signed ReportCBC W/AUTO [id number] 13:20:00 Test Item Value Reference Range Interpretation [...] 0.00 K/mm3 0.0-0.1 N NRBC#) ARTERIAL BLOOD [id number] 13:17:00 Test Item Value Reference Range Interpretation [...] (test code = 60 % COHBGFFIO2) PROTHROMBIN [id number] 13:06:00 Test Item Value Reference Range Interpretation [...] syste kyler embolism. 3.0 - 4.5 PTT [id number] 13:06:00 Test Item Value Reference Range Interpretation Comments PTT ACTIVATED (test code = APTT) 30.4 SECONDS 22.0-33.0 N HIV 12 AB [id number] 13:02:00 Test Item Value Reference Range Interpretation Comments HIV 1 2 COMBO AG/AB SCREEN AB/AG NON REACTIVE NONREACTIVE (test code = [id number]) CBC W/AUTO [id number] 12:51:00 Test Item Value Reference Range Interpretation [...] 0.00 K/mm3 0.0-0.1 N NRBC#) BASIC METABOLIC [id number] 12:21:00 Test Item Value Reference Range Interpretation [...] 9.9 MG/DL 8.4-10.2 N CA) BASIC METABOLIC [id number] 12:20:00 Test Item Value Reference Range Interpretation [...] code = MG/DL 8.7-9.7 CA) BASIC METABOLIC [id number] 12:18:00 Test Item Value Reference Range Interpretation [...] code = CA) MG/DL 8.7-9.7 BASIC METABOLIC [id number] 12:17:00 Test Item Value Reference Range Interpretation [...] CA) MG/DL 8.7-9.7 - XR CHEST 2 [id number] 11:39:00 Patient Name: WILI SABILLON Unit No: [id number] EXAMS: CPT CODE: [id number] XR CHEST 2 V 59589 LOCATION: T18 EXAM: CHEST 2 VIEWS INDICATION: [...] Jiménez, RT (R) Transcrpt Date/Tm/Trnsp: 05/04/2019 (1139) t.MARISOLR.JP19 Orig Print D/T: S: 05/04/2019 (1142) [facility] NAME: WILI SABILLON [id number] PHYS: Roh[place] [address] : 1945 AGE: 73 SEX: F LOC: SIMONE PHONE #: [phone] EXAM DATE: 05/04/2019 STATUS: PRE [facility] FAX #: [phone] RADIOLOGY NO: PAGE 1 Signed ReportBASIC METABOLIC [...] code = 9.0 MG/DL 8.4-10.2 N CA) [id number] 05:09:00 Test Item Value Reference Range Interpretation Comments MAGNESIUM (test code = MAG) 1.8 MG/DL 1.6-2.3 N CBC W/AUTO [id number] 04:46:00 Test Item Value Reference Range Interpretation [...] 0.00 K/mm3 0.0-0.1 N NRBC#) BASIC METABOLIC [id number] 06:03:00 Test Item Value Reference Range Interpretation [...] code = 8.7 MG/DL 8.4-10.2 N CA) [id number] 06:03:00 Test Item Value Reference Range Interpretation Comments MAGNESIUM (test code = MAG) 2.1 MG/DL 1.6-2.3 N CBC W/AUTO [id number] 05:32:00 Test Item Value Reference Range Interpretation [...] 0.00 K/mm3 0.0-0.1 N NRBC#) ARTERIAL BLOOD [id number] 12:23:00 Test Item Value Reference Range Interpretation [...] FT/NC E dited by: THOMASBGG o n 10/01/18:297403 9 1222: LUIS RY previously repo rted as: FT/NC ABG TEMPERATURE (test 37.0 C >37 code = TEMPA) ABG SITE (test code = AL SITEA) ALLENS TEST (test code NA CHECK = ALLENS) FIO2 (test code = 40 % COHBGFFIO2) ARTERY,[id number] 11:58:00 RUN DATE: 10/01/18 [facility] - LAB PAGE 1 RUN TIME: 1158 Specimen Inquiry RUN USER: INTERFACE PATIENT: WLII SABILLON LOC: ENA U #: [id number] AGE/SX: 72/F [facility] DR: Rohith Cruz MD : [birth year] BED: A DIS: STATUS: ADM IN TLOC: SPEC #: [id number] RECD: 09/30/18 STATUS: DIEGO REQ #: [id number] GUS: 09/30/[address] [facility] [address]: Rohith Cruz MD ENTERED: 09/30/18 SP TYPE: ARTERY, PL OTHR DR: Katie Marc MD, Nioti R MD Pepper, Gregory S MDORDERED: DECAL, SURG PATH LVL 3, SURG PATH LVL 4 CODES: K91597 - PLAQUE, NOS L61889 - ARTERY, NOS [id number] - CAROTID ARTERY ATHEROSCLEROSIS [id number] - CERVIX EXCISIONAL BIOP [id number] - LYMPH NODE, NOS COPIES TO: Katie Marc MD [address] [place] [address] [address] [place] [address] [email or web address] [address] [place] [address] [place] [address] [facility] [address] [place] [address] [place] [address] [facility] [address] [place], [place] [id number] ICD CODES: 440 - PROCEDURES: DECAL (10/01/18) SURG PATH LVL 3 (09/30/18) SURG PATH LVL 4 (09/30/18) TISSUES: A. ARTERY, NOS - RT ARTERY PLAQUE B. LYMPH NODE, NOS - RT CERVICAL LYMPH NODE CONTINUED ON NEXT PAGE RUN DATE: 10/01/18 [facility] - LAB PAGE 2 RUN TIME: 1158 Specimen Inquiry RUN USER:INTERFACE SPEC #: [id number] PATIENT: WILI SABILLON #[id number] (Continued) CLINICAL HISTORY RIGHT INTERNAL CAROTID ARTERYSTENOSIS CPT CODES CPT CODE(S): 81342 , 50192 , 53518 , , , , FINAL DIAGNOSIS A. [...] 1158 END OF REPORT - XR CHEST [id number] 07:45:00 Patient Name: WILI SABILLON Unit No: [id number] EXAMS: CPT CODE: [id number] XR CHEST 1V 86796 EXAMINATION: - XR CHEST 1V. LOCATION: B2. [...] t.SDR.PR7 Orig Print D/T: S: 10/01/2018 (0748) [facility] NAME: WILI SABILLON [id number] PHYS: NANETTE bauer,Bris[place] [address] : 1945 AGE: 72 SEX: F LOC: Z.SI07 A PHONE #: [phone] EXAM DATE: 10/01/2018 STATUS: ADM IN FAX #: [phone] RADIOLOGY NO: PAGE 1 Signed ReportBASIC METABOLIC [id number] 05:58:00 Test Item Value Reference Range Interpretation [...] code = 8.7 MG/DL 8.4-10.2 N CA) [id number] 05:58:00 Test Item Value Reference Range Interpretation Comments MAGNESIUM (test code = MAG) 1.7 MG/DL 1.6-2.3 N CBC W/AUTO [id number] 05:30:00 Test Item Value Reference Range Interpretation [...] code = 0.00 K/mm3 0.0-0.1 N NRBC#) [id number] 22:38:00 Test Item Value Reference Range Interpretation Comments POTASSIUM (test code = K) 3.3 MMOL/L 3.5-5.1 L [id number] 22:38:00 Test Item Value Reference Range Interpretation Comments MAGNESIUM (test code = MAG) 1.7 MG/DL 1.6-2.3 ARTERIAL BLOOD [id number] 17:57:00 Test Item Value Reference Range Interpretation [...] code = COHBGFFIO2) 40 % BASIC METABOLIC [id number] 16:18:00 Test Item Value Reference Range Interpretation [...] code = 8.9 MG/DL 8.4-10.2 N CA) [id number] 16:18:00 Test Item Value Reference Range Interpretation Comments MAGNESIUM (test code = MAG) 1.3 MG/DL 1.6-2.3 L CBC W/AUTO [id number] 16:06:00 Test Item Value Reference Range Interpretation [...] K/mm3 0.0-0.1 N NRBC#) - XR CHEST [id number] 15:29:00 Patient Name: WILI SABILLON Unit No: [id number] EXAMS: CPT CODE: [id number] XR CHEST 1V 66831 EXAM: CHEST ONE VIEW INDICATION: Postop LOCATION:B2 [...] Alhaji Cha, RT(R) Transcrpt Date/Tm/Trnsp: 09/30/2018 (1529) 16 OrigPrint D/T: S: 09/30/2018 (1532) [facility] NAME: WILI SABILLON [id number] PHYS: [place] [address] : 1945 AGE: 72 SEX: F LOC: Z.SI07 A PHONE #: [phone] EXAM DATE: 09/30/2018 STATUS: ADM IN FAX #: [phone] RADIOLOGY NO: PAGE 1 Signed ReportHIV 12 AB [id number] 19:14:00 Test Item Value Reference Range Interpretation Comments AB HIV 1 2 NON REACTIVE NON-REAC NOTE: A NONREA CTIVE (test code = RESULT INDICATE S THAT [id number]) HIV-1 AND HIV-2 ANTIBODIES HAVE NOT BEEN F OUND IN THIS PATIENT SP ECIMEN. ANON-REACTIVE R ESULT, HOWEVER, DOES N OT PRECLUDE PREVIOUSEXPOSUR E OR INFECTION WITH HIV1. AG HIV1 P24 NON REACTIVE NONE REAC (test code = DXF3K73) PROTHROMBIN [id number] 14:22:00 Test Item Value Reference Range Interpretation [...] syste kyler embolism. 3.0 - 4.5 PTT [id number] 14:22:00 Test Item Value Reference Range Interpretation Comments PTT ACTIVATED (test code = APTT) 29.3 SECONDS 22.0-33.0 N BASIC METABOLIC [id number] 14:18:00 Test Item Value Reference Range Interpretation [...] 8.4-10.2 N CA) - XR CHEST 2 [id number] 14:14:00 Patient Name: WILI SABILLON Unit No: [id number] EXAMS: CPT CODE: [id number] XR CHEST 2 V 46501 EXAM: CHEST 2 VIEWS INDICATION: PRE-OP LOCATION: [...] (1414) 16 Orig Print D/T: S: 09/29/2018 (7245) [facility] NAME: WILI SABILLON [id number] PHYS: Ro[place] [address] : 1945 AGE: 72 SEX: F LOC: Z.3AHU PHONE #: [phone] EXAM DATE: 09/29/2018 STATUS: PRE IN FAX #: [phone] RADIOLOGY NO: PAGE 1 Signed ReportCBC W/AUTO [id number] 13:57:00 Test Item Value Reference Range Interpretation [...] 0.00 K/mm3 0.0-0.1 N NRBC#) BASIC METABOLIC [id number] 06:04:00 Test Item Value Reference Range Interpretation [...] 0-189 mg/dL VERY HIGH...... ...>/= 190 mg/dL [id number] 06:04:00 Test Item Value Reference Range Interpretation Comments MAGNESIUM (test code = MAG) 1.9 MG/DL 1.6-2.3 N PROTHROMBIN [id number] 06:00:00 Test Item Value Reference Range Interpretation [...] kyler embolism. 3.0 - 4.5 Comments to Acting Instructor: WILL BRING TO LABPTT [id number] 06:00:00 Test Item Value Reference Range Interpretation Comments PTT ACTIVATED (test code = APTT) 29.3 SECONDS 22.0-33.0 N Comments to Acting Instructor: WILL BRING TO LABBASIC METABOLIC [id number] 05:54:00 Test Item Value Reference Range Interpretation [...] LDL (test MG/DL 0-99 code = LDL) [id number] 05:54:00 Test Item Value Reference Range Interpretation Comments MAGNESIUM (test code = MAG) 1.9 MG/DL 1.6-2.3 N CBC W/AUTO [id number] 05:41:00 Test Item Value Reference Range Interpretation [...]
[2021-08-27 11:19] LABS: Urine Blood Negative (Negative); Urine Glucose Negative (Negative); Urine Protein Negative (Negative); Urine Specific Gravity 1.015 (1.005-1.030)
[2021-08-27 11:39] LABS: Urine Bacteria <20 /HPF (<20); Urine RBC <5 /HPF (NONE SEEN)
[2021-08-27 11:40] LABS: Absolute Lymphocytes (CBC) 0.6 K/uL (0.7-4.9); MPV 6.9 fL (7.6-11.3); RBC Red Blood Cell Count 3.83 M/uL (3.86-4.86)
--- NOTE | 2021-08-27 12:36 | RAD REPORT ---
EXAM DESCRIPTION: CT - Abdomen Pelvis W Contrast - 08/27/2021 12:24 pm CLINICAL HISTORY: Abdominal pain COMPARISON: 2019 TECHNIQUE: Computed axial tomography of the abdomen pelvis was obtained. 100 cc Isovue-300 was admin istered intravenously. Oral contrast was not requested which limits evaluation of bowel. All CT scans are performed using dose optimization technique as appropriate and may include automated exposure control or mA/KV adjustment according to patient size. FINDINGS: Splenectomy with small splenic nodules unchanged The liver, adrenals and pancreas are unremarkable Extrarenal pelves. Kidneys otherwise appear unremarkable. There is no evidence of diverticulitis. Normal appendix. No adnexal mass. Stable calcification inferior to the bladder IMPRESSION: No acute abnormality is displayed.
[2021-08-27] MEDS ORDERED: MORPHINE 2 MG/ML SYR ONE (13:09)
[2021-08-27] MEDS ORDERED: ONDANSETRON 4 MG/2 ML VIAL ONE (13:09)
[2021-08-27 13:13] LABS: Albumin 3.2 g/dL (3.4-5.0); Bilirubin Total 0.3 mg/dL (0.2-1.0); Potassium 4.5 mmol/L (3.5-5.1); Protein, Total 7.3 g/dL (6.4-8.2)
--- NOTE | 2021-08-27 13:28 | ER ---
Nurse's Notes [facility] Name: Racheal Dia Age: 75 yrs Sex: Female : 1945 Arrival Date: 08/27/2021 Time: 10:47 Bed 16 Private MD: Jeremi Alaniz Diagnosis: Abdominal pain, unspecified;Arthritis, bilateral hands Presentation: 08/27 11:17 Chief complaint: Patient states: "I am having this right sided flank pain that has been jd3 going on for about a month. I am also feeling dizzy in the mornings for just as long.". Coronavirus screen: At this time, the client does not indicate any symptoms associated with coronavirus-19. Ebola Screen: No symptoms or risks identified at this time. Initial Sepsis Screen: Does the patient meet any 2 criteria? No. Patient's initial sepsis screen is negative. Does the patient have a suspected source of infection? No. Patient's initial sepsis screen is negative. Risk Assessment: Do you want to hurt yourself or someone else? Patient reports no desire to harm self or others. Onset of symptoms was July 28, 2021. 11:17 Method Of Arrival: Ambulatory jd3 11:17 Acuity: AISHA 3 jd3 Historical: - Allergies: 11:19 No Known Allergies; jd3 - PMHx: 11:19 Hypertension; CHF; Hypertensive disorder; Diabetes mellitus; Hypercholesterolemia; jd3 - PSHx: 11:19 Thyroidectomy; heart stents; jd3 - Immunization history:: Adult Immunizations up to date, Client reports receiving the 2nd dose of the Covid vaccine, Pneumococcal vaccine is up to date, Flu vaccine is up to date. - Social history:: Smoking status: Patient/guardian denies using tobacco, but has a distant history of tobacco abuse. Screenin:22 Abuse screen: Denies threats or abuse. Nutritional screening: No deficits noted. jd3 Tuberculosis screening: No symptoms or risk factors identified. Fall Risk Ambulatory Aid- None/Bed Rest/Nurse Assist (0 pts). Gait- Normal/Bed Rest/Wheelchair (0 pts) Mental Status- Oriented to own ability (0 pts). Total Stanford Fall Scale indicates No Risk (0-24 pts). Assessment: 11:20 General: Appears in no apparent distress. comfortable, Behavior is calm, cooperative, jd3 appropriate for age. Pain: Complains of pain in right flank Quality of pain is described as sharp. Neuro: Lockhart Agitation-Sedation Scale (RASS): 0 - Alert and Calm Level of Consciousness is awake, alert, obeys commands, Oriented to person, place, time, situation, Reports dizziness. Cardiovascular: Denies chest pain, Capillary refill < 3 seconds Patient's skin is warm and dry. Respiratory: Airway is patent Respiratory effort is even, unlabored, Respiratory pattern is regular, symmetrical, Denies cough, shortness of breath. GI: No signs and/or symptoms were reported involving the gastrointestinal system. : No signs and/or symptoms were reported regarding the genitourinary system. EENT: No signs and/or symptoms were reported regarding the EENT system. Derm: Skin is intact, Skin is dry, Skin is normal, Skin temperature is warm. Musculoskeletal: Circulation, motion, and sensation intact. Range of motion: intact in all extremities. 12:29 Reassessment: Patient appears in no apparent distress at this time. Patient and/or jd3 family updated on plan of care and expected duration. Pain level reassessed. Patient is alert, oriented x 3, equal unlabored respirations, skin warm/dry/pink. 13:39 Reassessment: Patient appears in no apparent distress at this time. Patient and/or jd3 family updated on plan of care and expected duration. Pain level reassessed. Patient is alert, oriented x 3, equal unlabored respirations, skin warm/dry/pink. Patient states feeling better. Vital Signs: 11:20 BP 120 / 96; Pulse 99; Resp 16 S; Temp 98.2(TE); Pulse Ox 99% on R/A; Weight 65.77 kg jd3 (R); Height 5 ft. 1 in. (154.94 cm) (R); Pain 9/10; 12:30 BP 121 / 96; Pulse 90; Resp 18 S; Pulse Ox 98% on R/A; jd3 13:39 BP 125 / 89; Pulse 89; Resp 18 S; Pulse Ox 99% on R/A; jd3 11:20 Body Mass Index 27.40 (65.77 kg, 154.94 cm) [facility] ED Course: 10:47 Patient arrived in ED. am2 10:47 Jeremi Alaniz DO is Private Physician. am2 11:09 Titi Norman NP is PHCP. pm1 11:09 Goyo Lyle MD is Attending Physician. pm1 11:17 Dong Rios, ZANE is Primary Nurse. jd3 11:18 Triage completed. jd3 11:20 Arm band placed on. jd3 11:20 Urine collected: clean catch specimen, clear. tm3 11:22 Patient has correct armband on for positive identification. Bed in low position. Call jd3 light in reach. Side rails up X 1. Pulse ox on. NIBP on. 11:38 Inserted saline lock: 22 gauge in left forearm, using aseptic technique. Blood jd3 collected. 12:26 CT Abd/Pelvis - IV Contrast Only In Process Unspecified. EDMS 13:39 No provider procedures requiring assistance completed. IV discontinued, intact, jd3 bleeding controlled, No redness/swelling at site. Pressure dressing applied. Administered Medications: 13:09 Drug: morphine 2 mg Route: IVP; Site: left forearm; jd3 13:40 Follow up: Response: No adverse reaction; RASS: Alert and Calm (0) jd3 13:09 Drug: Zofran (Ondansetron) 4 mg Route: IVP; Site: left forearm; jd3 13:40 Follow up: Response: No adverse reaction jd3 Medication: 11:22 VIS not applicable for this client. jd3 Outcome: 13:27 Discharge ordered by . pm1 13:39 Discharged to home ambulatory, with family. jd3 13:39 Condition: stable 13:39 Discharge instructions given to patient, Instructed on discharge instructions, follow up and referral plans. medication usage, Demonstrated understanding of instructions, follow-up care, medications, Prescriptions given X 1. 13:40 Patient left the ED. jd3 Signatures: Dispatcher [employer] EDMS Mamadou Cazares tm3 Titi Norman, VAIBHAV PRE K TEACHER pm1 Tiesha Mahmood am2 Dong Rios RN RN jd3 Corrections: (The following items were deleted from the chart) 13:39 11:38 Inserted saline lock: 20 gauge in left forearm, using aseptic technique. Blood jd3 collected. jd3 13:40 13:40 Response: No adverse reaction jd3 jd3
--- NOTE | 2021-08-27 13:28 | EDPHYS ---
Physician Documentation [facility] Name: Racheal Dia Age: 75 yrs Sex: Female : 1945 Arrival Date: 08/27/2021 Time: 10:47 Bed 16 Private MD: [facility] ED Physician Goyo Lyle HPI: 08/27 11:24 This 75 yrs old Black Female presents to ER via Ambulatory with complaints of Flank pm1 Pain, Hand Pain. 11:24 The patient complains of pain in the right low back. The pain does not radiate. Onset: pm1 The symptoms/episode began/occurred 1 month(s) ago. Modifying factors: The symptoms are alleviated by nothing. the symptoms are aggravated by nothing. Associated signs and symptoms: Pertinent positives: Dizziness for 1 month, bilateral hand pain -reports history of arthritis. Severity of pain: in the emergency department the pain is unchanged. The patient has not experienced similar symptoms in the past. The patient has not recently seen a physician. Historical: - Allergies: 11:19 No Known Allergies; jd3 - PMHx: 11:19 Hypertension; CHF; Hypertensive disorder; Diabetes mellitus; Hypercholesterolemia; jd3 - PSHx: 11:19 Thyroidectomy; heart stents; jd3 - Immunization history:: Adult Immunizations up to date, Client reports receiving the 2nd dose of the Covid vaccine, Pneumococcal vaccine is up to date, Flu vaccine is up to date. - Social history:: Smoking status: Patient/guardian denies using tobacco, but has a distant history of tobacco abuse. ROS: 11:24 Constitutional: Negative for fever, chills, and weight loss, Cardiovascular: Negative pm1 for chest pain, palpitations, and edema, Respiratory: Negative for shortness of breath, cough, wheezing, and pleuritic chest pain. 11:24 Abdomen/GI: Negative for abdominal pain, nausea, vomiting, diarrhea, and constipation. 11:24 : Negative for injury, bleeding, discharge, and swelling, Skin: Negative for injury, rash, and discoloration. 11:24 Back: Positive for flank pain, on the right. 11:24 MS/extremity: Positive for pain, of the right hand and left hand. 11:24 Neuro: Positive for dizziness, Negative for headache, numbness, tingling. 11:24 All other systems are negative. Exam: 11:24 Constitutional: This is a well developed, well nourished patient who is awake, alert, pm1 and in no acute distress. Head/Face: Normocephalic, atraumatic. 11:24 Back: No spinal tenderness. No costovertebral tenderness. Full range of motion. Skin: Warm, dry with normal turgor. Normal color with no rashes, no lesions, and no evidence of cellulitis. 11:24 MS/ Extremity: Pulses equal, no cyanosis. Neurovascular intact. Full, normal range of motion. 11:24 Eyes: Exam is negative for acute changes, Periorbital structures: appear normal, Pupils: no acute changes, Extraocular movements: no acute changes, Conjunctiva: no acute changes, Sclera: no acute changes, icterus, is not appreciated. 11:24 ENT: Exam is negative for acute changes, Mouth: no acute changes, Lips: normal, moist, Oral mucosa: normal, pink and intact, moist. 11:24 Cardiovascular: Exam negative for acute changes, Rate: normal, Rhythm: regular, Pulses: pulse deficits are appreciated, Heart sounds: normal, normal S1and S2. 11:24 Respiratory: Exam negative for acute changes, respiratory distress, shortness of breath, Breath sounds: are clear throughout. 11:24 Abdomen/GI: Inspection: abdomen appears normal, Palpation: soft, in all quadrants, mild abdominal tenderness, in the right lower quadrant. 11:24 Neuro: Exam negative for acute changes, Orientation: is normal, Mentation: is normal, Motor: is normal, moves all fours. Vital Signs: 11:20 BP 120 / 96; Pulse 99; Resp 16 S; Temp 98.2(TE); Pulse Ox 99% on R/A; Weight 65.77 kg jd3 (R); Height 5 ft. 1 in. (154.94 cm) (R); Pain 9/10; 12:30 BP 121 / 96; Pulse 90; Resp 18 S; Pulse Ox 98% on R/A; jd3 13:39 BP 125 / 89; Pulse 89; Resp 18 S; Pulse Ox 99% on R/A; jd3 11:20 Body Mass Index 27.40 (65.77 kg, 154.94 cm) jd3 MDM: 11:09 Patient medically screened. pm1 13:25 ED course: Patient reports improvement in her flank pain with pain medicine given in pm1 ER, however she does not want a prescription to go home with for narcotics. After discussing work-up and findings patient is now concerned about her bilateral hand pain that has been ongoing for 1 month. Impression is arthritic pain will give patient steroid therapy since she does not want narcotic medications. Patient has been taking Tylenol prn for her pain for the past month. 13:25 Data reviewed: vital signs. Data interpreted: Pulse oximetry: on room air is 98 %. pm1 Interpretation: normal. 13:25 Counseling: I had a detailed discussion with the patient and/or guardian regarding: the pm1 historical points, exam findings, and any diagnostic results supporting the discharge/admit diagnosis, lab results, radiology results, the need for outpatient follow up, a family practitioner, to return to the emergency department if symptoms worsen or persist or if there are any questions or concerns that arise at home. 08/27 11:19 Order name: Urine Dipstick-Ancillary; Complete Time: 11:22 EDMS 08/27 11:24 Order name: CBC with Diff; Complete Time: 12:08 pm1 08/27 11:24 Order name: CMP; Complete Time: 13:15 pm1 08/27 11:24 Order name: Lipase; Complete Time: 13:15 pm08/27 11:24 Order name: Urine Microscopic Only; Complete Time: 12:08 pm1 08/27 11:24 Order name: CT Abd/Pelvis - IV Contrast Only; Complete Time: 12:45 pm1 08/27 11:24 Order name: IV Saline Lock; Complete Time: 11:38 pm08/27 11:24 Order name: Labs collected and sent; Complete Time: 11:38 pm1 08/27 12:26 Order name: Labs - recollect needed: recollect the recollect; Complete Time: 13:03 eb Administered Medications: 13:09 Drug: morphine 2 mg Route: IVP; Site: left forearm; jd3 13:40 Follow up: Response: No adverse reaction; RASS: Alert and Calm (0) jd3 13:09 Drug: Zofran (Ondansetron) 4 mg Route: IVP; Site: left forearm; jd3 13:40 Follow up: Response: No adverse reaction jd3 Disposition Summary: 08/27/21 13:27 Discharge Ordered Location: Home pm1 Problem: new pm1 Symptoms: have improved pm1 Condition: Stable pm1 Diagnosis - Abdominal pain, unspecified pm1 - Arthritis, bilateral hands pm1 Followup: pm1 - With: Emergency Department - When: As needed - Reason: Worsening of condition Followup: pm1 - With: Private Physician - When: 2 - 3 days - Reason: Recheck today's complaints, Continuance of care, Re-evaluation by your physician Discharge Instructions: - Discharge Summary Sheet pm1 - Abdominal Pain, Adult pm1 - Arthritis pm1 Forms: - Medication Reconciliation Form pm1 - Thank You Letter pm1 - Antibiotic Education pm1 - Prescription Opioid Use pm1 Prescriptions: - Medrol (Grady) 4 mg Oral Tablets, Dose Pack - take 1 tablet by ORAL route as directed - follow package instructions; 1 pm1 packet; Refills: 0, Product Selection Permitted Signatures: Dispatcher [employer] Titi Bai NP W[employer] FIELD MANAGER pm1 Dong Rios RN RN jd3 Zahra Muñoz
[2021-08-27 13:48] VITALS: TEMP 98.2
[2021-08-27 13:51] VITALS: BP 125/89; O2SAT 99
== END 2021-08-27 13:40 | disposition home or self-care (01) ==
LOC: ER 10:46
DX: R10.31 Right lower quadrant pain (principal); M19.042 Primary osteoarthritis, left hand; M19.041 Primary osteoarthritis, right hand; E11.9 Type 2 diabetes mellitus without complications; I10 Essential (primary) hypertension; I50.9 Heart failure, unspecified; Z95.818 Presence of other cardiac implants and grafts
CPT/HCPCS: 85025; 36415; 82565; 83690; 80053; 74177; 96375; 96374; 99284; Q9967; J2270; J2405; 81003; 81015

== ENCOUNTER 2023-02-14 14:08 | Emergency (ER) | payer OTHER ==
--- OUTSIDE RECORDS SUMMARY | 2023-02-14 14:13 | XMS REPORT | Continuity of Care Document ---
:1945 Author Organization [facility] t Address [address] [facility] [address] [place] [address] Care Team Providers Name Role Phone Jeremi Alaniz Attending Clinician Unavailable Rohith Cruz Attending Clinician Unavailable Katie Marc Admitting Clinician Unavailable Payers Payer Name Policy Type Policy Number Effective Date Expiration Date S chanel MEDICARE [id number] 2011 [facility] 00:00:[address] [facility] MEDICARE MB [id number] 2011 [facility] 00:00:[address] [facility] MEDICARE MB [id number] 2011 [facility] [place]IT[place] 00:00:00 - [facility] MEDICARE PART A [id number] 2011 \T\ B 00:00:00 Problems Condition Condition Condition Status Onset Resolution Last Treating Co mments Source Name Details Category Date Date Treatment Clinician Date [id number] Stage 3a Problem Comm on chronic [facility] kidney - [facility] disease [facility] [id number] Macrocytic Problem Co mmon [facility] - [facility] [id number] 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 [id number] GERD Problem Common without [facility] esophagiti - [facility] s [facility] [id number] Mixed Problem Common hyperlipid Spirit emia - [facility] [id number] Chronic Problem Commo n diastolic [facility] congestive - [facility] heart failure [facility] [id number] Hypothyroi Problem Com mon dism, [facility] unspecifie - [facility] d type [facility] [id number] Paroxysmal Problem Co mmon atrial [facility] fibrillati - [facility] on [facility] [id number] Essential Problem Comm on hypertensi Spirit on [facility] [id number] S/P Problem Common splenectom [facility] y - [facility] Standard Abnormal Problem Commo n chest chest [facility] X-ray x-ray - [facility] abnormal [facility] Allergies, Adverse Reactions, Alerts Allergy Allergy Status Severity Reaction(s) Onset Inactive Treating Comm ents Source Name Type Date Date Clinician No Known DA Active U 2020-0 [facility] 00:: [address] No Known DA Active U 2020-0 [facility] [place] [facility] 00:[place]: [address] No Known DA Active U 2019-0 [facility] 09[facility] [place] [facility]:[place]: [address] No Known DA Active U 2019-0 [facility] [place] 00:: [address] No Known DA Active U 2009-0 [facility] [place] [facility] 00:00: [address] No Known DA Active U 2009-0 [facility] Drug 2- [place] [facility]ergie 00:00: [address] No Known DA Active U 2009-0 [facility] Food 2- [place] [facility]ergie 00:00: [address] No Known DA Active U 2009-0 [facility] Other [facility] [place] [facility] 00:00: [address] NO KNOWN Drug Active Univers [facility] Social History Social Habit Start Date Stop Date Quantity Comments Source History of Tobacco Use Co [facility] Sex Assigned At Com [facility] Smoking Status Start Date Stop Date Source Former Smoker 2023-01-09 00:00:00 2023-01-09 00:00:00 Common [facility] Medications Ordered Filled Start Stop Current Ordering Indication Dosage Frequency Signature Comments Components Source Medication Medication Date Date Medication? Clinician (SIG) Name Name Losartan Losartan 2020-04 No 1{table QD Losartan Potassium Potassium 2-13 t} Potassium 50 MG 50 MG 00:00: 50 MG 00 Losartan Losartan Yes Jeremi 1 tablet C ommon Potassium-H Potassium-H Alaniz [facility] CT CTZ [facility] Polyethylen Polyethylen Yes Jeremi not Common e Glycol e Glycol Alaniz defined [facility] MiraLax MiraLax Yes Jeremi not Common Alaniz defined [facility] Atorvastati Atorvastati Yes Jeremi 1 tablet Common n Calcium n Calcium Alaniz [facility] Aspirin 81 Aspirin 81 Yes Jeremi 1 tablet Common Alaniz [facility] Pantoprazol Pantoprazol Yes Jeremi 1 tablet Common e Sodium e Sodium Alaniz [facility] Sodium Sodium Yes Jeremi not Common Chloride Chloride Alaniz defined [facility] Potassium Potassium Yes Jeremi TAKE 1 C ommon Chloride Chloride Alaniz TABLET BY S pirit Li ER Li ER MOUTH ONCE - C HI DAILY [facility] Metoprolol Metoprolol Yes Jeremi TAKE 1 Common Tartrate Tartrate Alaniz TABLET BY S pirit MOUTH ONCE - [facility]I DAILY WITH [facility] Levothyroxi Levothyroxi Yes Jeremi 1 tablet Common ne Sodium ne Sodium Alaniz in the Sp pawan morning on - [facility] an empty [facility] Metoprolol Metoprolol Yes Jeremi 1 tablet Common Tartrate Tartrate Alaniz with food [facility] Clopidogrel Clopidogrel Yes Jeremi 1 tablet Common Bisulfate Bisulfate Alaniz [facility] Docusate Docusate Yes Jeremi 1 capsule Common Sodium Sodium Alaniz as needed [facility] t [facility] Potassium Potassium Yes Jeremi 1 packet Common Chloride Chloride Alaniz with food S pirit [facility] penicillin penicillin Yes Jeremi not C ommon Alaniz defined Spirit [facility] Atorvastati Atorvastati No 1{table QD Atorvastat n Calcium n Calcium t} in Calcium 40 MG 40 MG 40 MG Sodium Sodium No Sodium Chloride Chloride Chloride Levothyroxi Levothyroxi No QD Levothyrox ne Sodium ne Sodium ine Sodium 88 MCG 88 MCG 88 MCG Metoprolol Metoprolol No 1{table QD Metoprolol Tartrate Tartrate t_with_ Tartrate 100 MG 100 MG food} 100 MG Clopidogrel Clopidogrel No Clopidogre Bisulfate Bisulfate l 75 MG 75 MG Bisulfate 75 MG Aspirin 81 Aspirin 81 No 1{table QD Aspirin 81 81 MG 81 MG t} 81 MG amLODIPine amLODIPine No 1{table QD amLODIPine Besylate 5 Besylate 5 t} Besylate 5 MG MG MG Polyethylen Polyethylen No Polyethyle e Glycol e Glycol ne Glycol Pantoprazol Pantoprazol No 1{table QD Pantoprazo e Sodium 40 e Sodium 40 t} le Sodium MG MG 40 MG EQ Stool EQ Stool No EQ Stool Softener Softener Softener 100 MG 100 MG 100 MG penicillin penicillin No penicillin Losartan Losartan No Losartan Potassium-H Potassium-H Potassium- CTZ CTZ HCTZ 100-12.5 MG 100-12.5 MG 100-12.5 MG MiraLax MiraLax No MiraLax Potassium Potassium No 1{packe QD Potassium Chloride 20 Chloride 20 t_with_ Chloride MEQ MEQ food} 20 MEQ Potassium Potassium No Potassium Chloride Chloride Chloride Li ER 20 Li ER 20 Li ER 20 MEQ MEQ MEQ Euthyrox 88 Euthyrox 88 No Euthyrox MCG MCG 88 MCG Atorvastati Atorvastati No 1{table QD Atorvastat n Calcium n Calcium t} in Calcium 40 MG 40 MG 40 MG Sodium Sodium No Sodium Chloride Chloride Chloride Levothyroxi Levothyroxi No QD Levothyrox ne Sodium ne Sodium ine Sodium 88 MCG 88 MCG 88 MCG Metoprolol Metoprolol No 1{table QD Metoprolol Tartrate Tartrate t_with_ Tartrate 100 MG 100 MG food} 100 MG Clopidogrel Clopidogrel No Clopidogre Bisulfate Bisulfate l 75 MG 75 MG Bisulfate 75 MG Aspirin 81 Aspirin 81 No 1{table QD Aspirin 81 81 MG 81 MG t} 81 MG amLODIPine amLODIPine No 1{table QD amLODIPine Besylate 5 Besylate 5 t} Besylate 5 MG MG MG Polyethylen Polyethylen No Polyethyle e Glycol e Glycol ne Glycol Pantoprazol Pantoprazol No 1{table QD Pantoprazo e Sodium 40 e Sodium 40 t} le Sodium MG MG 40 MG EQ Stool EQ Stool No EQ Stool Softener Softener Softener 100 MG 100 MG 100 MG penicillin penicillin No penicillin Losartan Losartan No Losartan Potassium-H Potassium-H Potassium- CTZ CTZ HCTZ 100-12.5 MG 100-12.5 MG 100-12.5 MG MiraLax MiraLax No MiraLax Potassium Potassium No 1{packe QD Potassium Chloride 20 Chloride 20 t_with_ Chloride MEQ MEQ food} 20 MEQ Potassium Potassium No Potassium Chloride Chloride Chloride Li ER 20 Li ER 20 Li ER 20 MEQ MEQ MEQ penicillin penicillin No penicillin Aspirin 81 Aspirin 81 No 1{table QD Aspirin 81 81 MG 81 MG t} 81 MG Levothyroxi Levothyroxi No QD Levothyrox ne Sodium ne Sodium ine Sodium 88 MCG 88 MCG 88 MCG Potassium Potassium No 1{packe QD Potassium Chloride 20 Chloride 20 t_with_ Chloride MEQ MEQ food} 20 MEQ Atorvastati Atorvastati No 1{table QD Atorvastat n Calcium n Calcium t} in Calcium 40 MG 40 MG 40 MG Sodium Sodium No Sodium Chloride Chloride Chloride Docusate Docusate No 1{capsu BID Docusate Sodium 100 Sodium 100 le_as_n Sodium 100 MG MG eeded} MG MiraLax MiraLax No MiraLax Levothyroxi Levothyroxi No QD Levothyrox ne Sodium ne Sodium ine Sodium 88 MCG 88 MCG 88 MCG Clopidogrel Clopidogrel No Clopidogre Bisulfate Bisulfate l 75 MG 75 MG Bisulfate 75 MG Euthyrox 88 Euthyrox 88 No Euthyrox MCG MCG 88 MCG EQ Stool EQ Stool No EQ Stool Softener Softener Softener 100 MG 100 MG 100 MG Metoprolol Metoprolol No 1{table QD Metoprolol Tartrate Tartrate t_with_ Tartrate 100 MG 100 MG food} 100 MG Metoprolol Metoprolol No QD Metoprolol Tartrate Tartrate Tartrate 100 MG 100 MG 100 MG Potassium Potassium No Potassium Chloride Chloride Chloride Li ER 20 Li ER 20 Li ER 20 MEQ MEQ MEQ Losartan Losartan No Losartan Potassium-H Potassium-H Potassium- CTZ CTZ HCTZ 100-12.5 MG 100-12.5 MG 100-12.5 MG Pantoprazol Pantoprazol No 1{table QD Pantoprazo e Sodium 40 e Sodium 40 t} le Sodium MG MG 40 MG amLODIPine amLODIPine No 1{table QD amLODIPine Besylate 5 Besylate 5 t} Besylate 5 MG MG MG Polyethylen Polyethylen No Polyethyle e Glycol e Glycol ne Glycol Atorvastati Atorvastati No Atorvastat n Calcium n Calcium in Calcium 40 MG 40 MG 40 MG Potassium Potassium No 1{packe QD Potassium Chloride 20 Chloride 20 t_with_ Chloride MEQ MEQ food} 20 MEQ Aspirin 81 Aspirin 81 No 1{table QD Aspirin 81 81 MG 81 MG t} 81 MG Sodium Sodium No Sodium Chloride Chloride Chloride penicillin penicillin No penicillin amLODIPine amLODIPine No 1{table QD amLODIPine Besylate 5 Besylate 5 t} Besylate 5 MG MG MG Losartan Losartan No Losartan Potassium-H Potassium-H Potassium- CTZ CTZ HCTZ 100-12.5 MG 100-12.5 MG 100-12.5 MG Metoprolol Metoprolol No QD Metoprolol Tartrate Tartrate Tartrate 100 MG 100 MG 100 MG Atorvastati Atorvastati No Atorvastat n Calcium n Calcium in Calcium 40 MG 40 MG 40 MG Polyethylen Polyethylen No Polyethyle e Glycol e Glycol ne Glycol Metoprolol Metoprolol No 1{table QD Metoprolol Tartrate 50 Tartrate 50 t_with_ Tartrate MG MG food} 50 MG Losartan Losartan No Losartan Potassium Potassium Potassium 50 MG 50 MG 50 MG Levothyroxi Levothyroxi No QD Levothyrox ne Sodium ne Sodium ine Sodium 88 MCG 88 MCG 88 MCG Losartan Losartan No 1{table QD Losartan Potassium Potassium t} Potassium 50 MG 50 MG 50 MG Atorvastati Atorvastati No 1{table QD Atorvastat n Calcium n Calcium t} in Calcium 40 MG 40 MG 40 MG Pantoprazol Pantoprazol No 1{table QD Pantoprazo e Sodium 40 e Sodium 40 t} le Sodium MG MG 40 MG MiraLax MiraLax No MiraLax Euthyrox 88 Euthyrox 88 No Euthyrox MCG MCG 88 MCG Docusate Docusate No 1{capsu BID Docusate Sodium 100 Sodium 100 le_as_n Sodium 100 MG MG eeded} MG EQ Stool EQ Stool No EQ Stool Softener Softener Softener 100 MG 100 MG 100 MG Clopidogrel Clopidogrel No Clopidogre Bisulfate Bisulfate l 75 MG 75 MG Bisulfate 75 MG Potassium Potassium No Potassium Chloride Chloride Chloride Li ER 20 Li ER 20 Li ER 20 MEQ MEQ MEQ Levothyroxi Levothyroxi No QD Levothyrox ne Sodium ne Sodium ine Sodium 88 MCG 88 MCG 88 MCG Potassium Potassium No 1{packe QD Potassium Chloride 20 Chloride 20 t_with_ Chloride MEQ MEQ food} 20 MEQ Aspirin 81 Aspirin 81 No 1{table QD Aspirin 81 81 MG 81 MG t} 81 MG Sodium Sodium No Sodium Chloride Chloride Chloride Levothyroxi Levothyroxi No QD Levothyrox ne Sodium ne Sodium ine Sodium 88 MCG 88 MCG 88 MCG amLODIPine amLODIPine No 1{table QD amLODIPine Besylate 5 Besylate 5 t} Besylate 5 MG MG MG Losartan Losartan No Losartan Potassium-H Potassium-H Potassium- CTZ CTZ HCTZ 100-12.5 MG 100-12.5 MG 100-12.5 MG Metoprolol Metoprolol No QD Metoprolol Tartrate Tartrate Tartrate 100 MG 100 MG 100 MG Polyethylen Polyethylen No Polyethyle e Glycol e Glycol ne Glycol Clopidogrel Clopidogrel No Clopidogre Bisulfate Bisulfate l 75 MG 75 MG Bisulfate 75 MG Atorvastati Atorvastati No Atorvastat n Calcium n Calcium in Calcium 40 MG 40 MG 40 MG Potassium Potassium No Potassium Chloride Chloride Chloride Li ER 20 Li ER 20 Li ER 20 MEQ MEQ MEQ Losartan Losartan No Losartan Potassium Potassium Potassium 50 MG 50 MG 50 MG Losartan Losartan No 1{table QD Losartan Potassium Potassium t} Potassium 50 MG 50 MG 50 MG Atorvastati Atorvastati No 1{table QD Atorvastat n Calcium n Calcium t} in Calcium 40 MG 40 MG 40 MG Pantoprazol Pantoprazol No 1{table QD Pantoprazo e Sodium 40 e Sodium 40 t} le Sodium MG MG 40 MG penicillin penicillin No penicillin Euthyrox 88 Euthyrox 88 No Euthyrox MCG MCG 88 MCG Docusate Docusate No 1{capsu BID Docusate Sodium 100 Sodium 100 le_as_n Sodium 100 MG MG eeded} MG EQ Stool EQ Stool No EQ Stool Softener Softener Softener 100 MG 100 MG 100 MG Metoprolol Metoprolol No 1{table QD Metoprolol Tartrate 50 Tartrate 50 t_with_ Tartrate MG MG food} 50 MG MiraLax MiraLax No MiraLax Levothyroxi Levothyroxi No QD Levothyrox ne Sodium ne Sodium ine Sodium 88 MCG 88 MCG 88 MCG penicillin penicillin No penicillin Levothyroxi Levothyroxi No QD Levothyrox ne Sodium ne Sodium ine Sodium 88 MCG 88 MCG 88 MCG Euthyrox 88 Euthyrox 88 No Euthyrox MCG MCG 88 MCG Losartan Losartan No Losartan Potassium Potassium Potassium 50 MG 50 MG 50 MG Sodium Sodium No Sodium Chloride Chloride Chloride amLODIPine amLODIPine No 1{table QD amLODIPine Besylate 5 Besylate 5 t} Besylate 5 MG MG MG Polyethylen Polyethylen No Polyethyle e Glycol e Glycol ne Glycol Levothyroxi Levothyroxi No QD Levothyrox ne Sodium ne Sodium ine Sodium 88 MCG 88 MCG 88 MCG Clopidogrel Clopidogrel No Clopidogre Bisulfate Bisulfate l 75 MG 75 MG Bisulfate 75 MG Potassium Potassium No Potassium Chloride Chloride Chloride Li ER 20 Li ER 20 Li ER 20 MEQ MEQ MEQ EQ Stool EQ Stool No EQ Stool Softener Softener Softener 100 MG 100 MG 100 MG Pantoprazol Pantoprazol No 1{table QD Pantoprazo e Sodium 40 e Sodium 40 t} le Sodium MG MG 40 MG Losartan Losartan No Losartan Potassium-H Potassium-H Potassium- CTZ CTZ HCTZ 100-12.5 MG 100-12.5 MG 100-12.5 MG MiraLax MiraLax No MiraLax Docusate Docusate No 1{capsu BID Docusate Sodium 100 Sodium 100 le_as_n Sodium 100 MG MG eeded} MG Metoprolol Metoprolol No Metoprolol Tartrate 50 Tartrate 50 Tartrate MG MG 50 MG Atorvastati Atorvastati No Atorvastat n Calcium n Calcium in Calcium 40 MG 40 MG 40 MG Aspirin 81 Aspirin 81 No 1{table QD Aspirin 81 81 MG 81 MG t} 81 MG Potassium Potassium No 1{packe QD Potassium Chloride 20 Chloride 20 t_with_ Chloride MEQ MEQ food} 20 MEQ Metoprolol Metoprolol No QD Metoprolol Tartrate Tartrate Tartrate 100 MG 100 MG 100 MG penicillin penicillin No penicillin Levothyroxi Levothyroxi No QD Levothyrox ne Sodium ne Sodium ine Sodium 88 MCG 88 MCG 88 MCG Euthyrox 88 Euthyrox 88 No Euthyrox MCG MCG 88 MCG Losartan Losartan No Losartan Potassium Potassium Potassium 50 MG 50 MG 50 MG Sodium Sodium No Sodium Chloride Chloride Chloride amLODIPine amLODIPine No 1{table QD amLODIPine Besylate 5 Besylate 5 t} Besylate 5 MG MG MG Polyethylen Polyethylen No Polyethyle e Glycol e Glycol ne Glycol Levothyroxi Levothyroxi No QD Levothyrox ne Sodium ne Sodium ine Sodium 88 MCG 88 MCG 88 MCG Clopidogrel Clopidogrel No Clopidogre Bisulfate Bisulfate l 75 MG 75 MG Bisulfate 75 MG Potassium Potassium No Potassium Chloride Chloride Chloride Li ER 20 Li ER 20 Li ER 20 MEQ MEQ MEQ EQ Stool EQ Stool No EQ Stool Softener Softener Softener 100 MG 100 MG 100 MG Pantoprazol Pantoprazol No 1{table QD Pantoprazo e Sodium 40 e Sodium 40 t} le Sodium MG MG 40 MG Losartan Losartan No Losartan Potassium-H Potassium-H Potassium- CTZ CTZ HCTZ 100-12.5 MG 100-12.5 MG 100-12.5 MG MiraLax MiraLax No MiraLax Docusate Docusate No 1{capsu BID Docusate Sodium 100 Sodium 100 le_as_n Sodium 100 MG MG eeded} MG Metoprolol Metoprolol No Metoprolol Tartrate 50 Tartrate 50 Tartrate MG MG 50 MG Atorvastati Atorvastati No Atorvastat n Calcium n Calcium in Calcium 40 MG 40 MG 40 MG Aspirin 81 Aspirin 81 No 1{table QD Aspirin 81 81 MG 81 MG t} 81 MG Potassium Potassium No 1{packe QD Potassium Chloride 20 Chloride 20 t_with_ Chloride MEQ MEQ food} 20 MEQ Metoprolol Metoprolol No QD Metoprolol Tartrate Tartrate Tartrate 100 MG 100 MG 100 MG penicillin penicillin No penicillin Levothyroxi Levothyroxi No QD Levothyrox ne Sodium ne Sodium ine Sodium 88 MCG 88 MCG 88 MCG Euthyrox 88 Euthyrox 88 No Euthyrox MCG MCG 88 MCG Losartan Losartan No Losartan Potassium Potassium Potassium 50 MG 50 MG 50 MG Sodium Sodium No Sodium Chloride Chloride Chloride amLODIPine amLODIPine No 1{table QD amLODIPine Besylate 5 Besylate 5 t} Besylate 5 MG MG MG Polyethylen Polyethylen No Polyethyle e Glycol e Glycol ne Glycol Levothyroxi Levothyroxi No QD Levothyrox ne Sodium ne Sodium ine Sodium 88 MCG 88 MCG 88 MCG Clopidogrel Clopidogrel No Clopidogre Bisulfate Bisulfate l 75 MG 75 MG Bisulfate 75 MG Potassium Potassium No Potassium Chloride Chloride Chloride Li ER 20 Li ER 20 Li ER 20 MEQ MEQ MEQ EQ Stool EQ Stool No EQ Stool Softener Softener Softener 100 MG 100 MG 100 MG Pantoprazol Pantoprazol No 1{table QD Pantoprazo e Sodium 40 e Sodium 40 t} le Sodium MG MG 40 MG Losartan Losartan No Losartan Potassium-H Potassium-H Potassium- CTZ CTZ HCTZ 100-12.5 MG 100-12.5 MG 100-12.5 MG MiraLax MiraLax No MiraLax Docusate Docusate No 1{capsu BID Docusate Sodium 100 Sodium 100 le_as_n Sodium 100 MG MG eeded} MG Metoprolol Metoprolol No Metoprolol Tartrate 50 Tartrate 50 Tartrate MG MG 50 MG Atorvastati Atorvastati No Atorvastat n Calcium n Calcium in Calcium 40 MG 40 MG 40 MG Aspirin 81 Aspirin 81 No 1{table QD Aspirin 81 81 MG 81 MG t} 81 MG Potassium Potassium No 1{packe QD Potassium Chloride 20 Chloride 20 t_with_ Chloride MEQ MEQ food} 20 MEQ Metoprolol Metoprolol No QD Metoprolol Tartrate Tartrate Tartrate 100 MG 100 MG 100 MG Potassium Potassium No Potassium Chloride Chloride Chloride Li ER 20 Li ER 20 Li ER 20 MEQ MEQ MEQ Euthyrox Euthyrox No Euthyrox 100 MCG 100 MCG 100 MCG Aspirin 81 Aspirin 81 No 1{table QD Aspirin 81 81 MG 81 MG t} 81 MG Losartan Losartan No Losartan Potassium-H Potassium-H Potassium- CTZ CTZ HCTZ 100-12.5 MG 100-12.5 MG 100-12.5 MG Atorvastati Atorvastati No 1{table QD Atorvastat n Calcium n Calcium t} in Calcium 40 MG 40 MG 40 MG Metoprolol Metoprolol No 1{table QD Metoprolol Tartrate 50 Tartrate 50 t_with_ Tartrate MG MG food} 50 MG Docusate Docusate No 1{capsu BID Docusate Sodium 100 Sodium 100 le_as_n Sodium 100 MG MG eeded} MG Polyethylen Polyethylen No Polyethyle e Glycol e Glycol ne Glycol Losartan Losartan No Losartan Potassium Potassium Potassium 50 MG 50 MG 50 MG Clopidogrel Clopidogrel No Clopidogre Bisulfate Bisulfate l 75 MG 75 MG Bisulfate 75 MG MiraLax MiraLax No MiraLax Sodium Sodium No Sodium Chloride Chloride Chloride EQ Stool EQ Stool No EQ Stool Softener Softener Softener 100 MG 100 MG 100 MG Potassium Potassium No 1{packe QD Potassium Chloride 20 Chloride 20 t_with_ Chloride MEQ MEQ food} 20 MEQ amLODIPine amLODIPine No 1{table QD amLODIPine Besylate 5 Besylate 5 t} Besylate 5 MG MG MG Metoprolol Metoprolol No Metoprolol Tartrate 50 Tartrate 50 Tartrate MG MG 50 MG Levothyroxi Levothyroxi No QD Levothyrox ne Sodium ne Sodium ine Sodium 100 MCG 100 MCG 100 MCG Losartan Losartan No 1{table QD Losartan Potassium Potassium t} Potassium 50 MG 50 MG 50 MG Pantoprazol Pantoprazol No 1{table QD Pantoprazo e Sodium 40 e Sodium 40 t} le Sodium MG MG 40 MG Atorvastati Atorvastati No Atorvastat n Calcium n Calcium in Calcium 40 MG 40 MG 40 MG Potassium Potassium No Potassium Chloride Chloride Chloride Li ER 20 Li ER 20 Li ER 20 MEQ MEQ MEQ Euthyrox Euthyrox No Euthyrox 100 MCG 100 MCG 100 MCG Aspirin 81 Aspirin 81 No 1{table QD Aspirin 81 81 MG 81 MG t} 81 MG Losartan Losartan No Losartan Potassium-H Potassium-H Potassium- CTZ CTZ HCTZ 100-12.5 MG 100-12.5 MG 100-12.5 MG Atorvastati Atorvastati No 1{table QD Atorvastat n Calcium n Calcium t} in Calcium 40 MG 40 MG 40 MG Metoprolol Metoprolol No 1{table QD Metoprolol Tartrate 50 Tartrate 50 t_with_ Tartrate MG MG food} 50 MG Docusate Docusate No 1{capsu BID Docusate Sodium 100 Sodium 100 le_as_n Sodium 100 MG MG eeded} MG Polyethylen Polyethylen No Polyethyle e Glycol e Glycol ne Glycol Losartan Losartan No Losartan Potassium Potassium Potassium 50 MG 50 MG 50 MG Clopidogrel Clopidogrel No Clopidogre Bisulfate Bisulfate l 75 MG 75 MG Bisulfate 75 MG MiraLax MiraLax No MiraLax Sodium Sodium No Sodium Chloride Chloride Chloride EQ Stool EQ Stool No EQ Stool Softener Softener Softener 100 MG 100 MG 100 MG Potassium Potassium No 1{packe QD Potassium Chloride 20 Chloride 20 t_with_ Chloride MEQ MEQ food} 20 MEQ amLODIPine amLODIPine No 1{table QD amLODIPine Besylate 5 Besylate 5 t} Besylate 5 MG MG MG Metoprolol Metoprolol No Metoprolol Tartrate 50 Tartrate 50 Tartrate MG MG 50 MG Levothyroxi Levothyroxi No QD Levothyrox ne Sodium ne Sodium ine Sodium 100 MCG 100 MCG 100 MCG Losartan Losartan No 1{table QD Losartan Potassium Potassium t} Potassium 50 MG 50 MG 50 MG Pantoprazol Pantoprazol No 1{table QD Pantoprazo e Sodium 40 e Sodium 40 t} le Sodium MG MG 40 MG Atorvastati Atorvastati No Atorvastat n Calcium n Calcium in Calcium 40 MG 40 MG 40 MG Aspirin 81 Aspirin 81 No 1{table QD Aspirin 81 81 MG 81 MG t} 81 MG Clopidogrel Clopidogrel No Clopidogre Bisulfate Bisulfate l 75 MG 75 MG Bisulfate 75 MG Levothyroxi Levothyroxi No QD Levothyrox ne Sodium ne Sodium ine Sodium 100 MCG 100 MCG 100 MCG Sodium Sodium No Sodium Chloride Chloride Chloride Docusate Docusate No 1{capsu BID Docusate Sodium 100 Sodium 100 le_as_n Sodium 100 MG MG eeded} MG Metoprolol Metoprolol No 1{table QD Metoprolol Tartrate 50 Tartrate 50 t_with_ Tartrate MG MG food} 50 MG EQ Stool EQ Stool No EQ Stool Softener Softener Softener 100 MG 100 MG 100 MG Atorvastati Atorvastati No Atorvastat n Calcium n Calcium in Calcium 40 MG 40 MG 40 MG Losartan Losartan No Losartan Potassium Potassium Potassium 50 MG 50 MG 50 MG Metoprolol Metoprolol No Metoprolol Tartrate 50 Tartrate 50 Tartrate MG MG 50 MG MiraLax MiraLax No MiraLax Pantoprazol Pantoprazol No 1{table QD Pantoprazo e Sodium 40 e Sodium 40 t} le Sodium MG MG 40 MG Potassium Potassium No Potassium Chloride Chloride Chloride Li ER 20 Li ER 20 Li ER 20 MEQ MEQ MEQ Losartan Losartan No Losartan Potassium-H Potassium-H Potassium- CTZ CTZ HCTZ 100-12.5 MG 100-12.5 MG 100-12.5 MG Potassium Potassium No 1{packe QD Potassium Chloride 20 Chloride 20 t_with_ Chloride MEQ MEQ food} 20 MEQ Polyethylen Polyethylen No Polyethyle e Glycol e Glycol ne Glycol amLODIPine amLODIPine No 1{table QD amLODIPine Besylate 5 Besylate 5 t} Besylate 5 MG MG MG Euthyrox Euthyrox No Euthyrox 100 MCG 100 MCG 100 MCG Levothyroxi Levothyroxi No QD Levothyrox ne Sodium ne Sodium ine Sodium 100 MCG 100 MCG 100 MCG Pantoprazol Pantoprazol No 1{table QD Pantoprazo e Sodium 40 e Sodium 40 t} le Sodium MG MG 40 MG Losartan Losartan No Losartan Potassium Potassium Potassium 50 MG 50 MG 50 MG Clopidogrel Clopidogrel No 1{table QD Clopidogre Bisulfate Bisulfate t} l 75 MG 75 MG Bisulfate 75 MG Atorvastati Atorvastati No Atorvastat n Calcium n Calcium in Calcium 40 MG 40 MG 40 MG Metoprolol Metoprolol No Metoprolol Tartrate 50 Tartrate 50 Tartrate MG MG 50 MG Sodium Sodium No Sodium Chloride Chloride Chloride amLODIPine amLODIPine No 1{table QD amLODIPine Besylate 5 Besylate 5 t} Besylate 5 MG MG MG Polyethylen Polyethylen No Polyethyle e Glycol e Glycol ne Glycol Docusate Docusate No 1{capsu BID Docusate Sodium 100 Sodium 100 le_as_n Sodium 100 MG MG eeded} MG Losartan Losartan No 1{table QD Losartan Potassium Potassium t} Potassium 25 MG 25 MG 25 MG Klor-Con Klor-Con No Klor-Con M20 20 MEQ M20 20 MEQ M20 20 MEQ Aspirin 81 Aspirin 81 No 1{table QD Aspirin 81 81 MG 81 MG t} 81 MG Levothyroxi Levothyroxi No Levothyrox ne Sodium ne Sodium ine Sodium 100 MCG 100 MCG 100 MCG MiraLax MiraLax No MiraLax Potassium Potassium No Potassium Chloride Chloride Chloride Li ER 20 Li ER 20 Li ER 20 MEQ MEQ MEQ Euthyrox Euthyrox No Euthyrox 100 MCG 100 MCG 100 MCG Aspirin 81 Aspirin 81 No 1{table QD Aspirin 81 81 MG 81 MG t} 81 MG Losartan Losartan No Losartan Potassium-H Potassium-H Potassium- CTZ CTZ HCTZ 100-12.5 MG 100-12.5 MG 100-12.5 MG Atorvastati Atorvastati No 1{table QD Atorvastat n Calcium n Calcium t} in Calcium 40 MG 40 MG 40 MG Metoprolol Metoprolol No 1{table QD Metoprolol Tartrate 50 Tartrate 50 t_with_ Tartrate MG MG food} 50 MG Docusate Docusate No 1{capsu BID Docusate Sodium 100 Sodium 100 le_as_n Sodium 100 MG MG eeded} MG Polyethylen Polyethylen No Polyethyle e Glycol e Glycol ne Glycol Losartan Losartan No Losartan Potassium Potassium Potassium 50 MG 50 MG 50 MG Clopidogrel Clopidogrel No Clopidogre Bisulfate Bisulfate l 75 MG 75 MG Bisulfate 75 MG MiraLax MiraLax No MiraLax Sodium Sodium No Sodium Chloride Chloride Chloride EQ Stool EQ Stool No EQ Stool Softener Softener Softener 100 MG 100 MG 100 MG Potassium Potassium No 1{packe QD Potassium Chloride 20 Chloride 20 t_with_ Chloride MEQ MEQ food} 20 MEQ amLODIPine amLODIPine No 1{table QD amLODIPine Besylate 5 Besylate 5 t} Besylate 5 MG MG MG Metoprolol Metoprolol No Metoprolol Tartrate 50 Tartrate 50 Tartrate MG MG 50 MG Levothyroxi Levothyroxi No QD Levothyrox ne Sodium ne Sodium ine Sodium 100 MCG 100 MCG 100 MCG Losartan Losartan No 1{table QD Losartan Potassium Potassium t} Potassium 50 MG 50 MG 50 MG Pantoprazol Pantoprazol No 1{table QD Pantoprazo e Sodium 40 e Sodium 40 t} le Sodium MG MG 40 MG Atorvastati Atorvastati No Atorvastat n Calcium n Calcium in Calcium 40 MG 40 MG 40 MG Euthyrox 88 Euthyrox 88 No Euthyrox MCG MCG 88 MCG Atorvastati Atorvastati No 1{table QD Atorvastat n Calcium n Calcium t} in Calcium 40 MG 40 MG 40 MG Sodium Sodium No Sodium Chloride Chloride Chloride Levothyroxi Levothyroxi No QD Levothyrox ne Sodium ne Sodium ine Sodium 88 MCG 88 MCG 88 MCG Clopidogrel Clopidogrel No 1{table QD Clopidogre Bisulfate Bisulfate t} l 75 MG 75 MG Bisulfate 75 MG Metoprolol Metoprolol No 1{table QD Metoprolol Tartrate Tartrate t_with_ Tartrate 100 MG 100 MG food} 100 MG Aspirin 81 Aspirin 81 No 1{table QD Aspirin 81 81 MG 81 MG t} 81 MG amLODIPine amLODIPine No 1{table QD amLODIPine Besylate 5 Besylate 5 t} Besylate 5 MG MG MG Polyethylen Polyethylen No Polyethyle e Glycol e Glycol ne Glycol Pantoprazol Pantoprazol No 1{table QD Pantoprazo e Sodium 40 e Sodium 40 t} le Sodium MG MG 40 MG EQ Stool EQ Stool No EQ Stool Softener Softener Softener 100 MG 100 MG 100 MG penicillin penicillin No penicillin Losartan Losartan No Losartan Potassium-H Potassium-H Potassium- CTZ CTZ HCTZ 100-12.5 MG 100-12.5 MG 100-12.5 MG MiraLax MiraLax No MiraLax Potassium Potassium No 1{packe QD Potassium Chloride 20 Chloride 20 t_with_ Chloride MEQ MEQ food} 20 MEQ Potassium Potassium No Potassium Chloride Chloride Chloride Li ER 20 Li ER 20 Li ER 20 MEQ MEQ MEQ Euthyrox 88 Euthyrox 88 No Euthyrox MCG MCG 88 MCG Immunizations Ordered Filled Immunization Date Status Comments Sourc e Immunization Name Name Fluzone Fluzone 2021-03-27 [facility] - [facility] Fluzone Fluzone 2021-03-27 [facility]pleted [facility] 10:30:00 - [facility] Fluzone Fluzone 2021-03-27 [facility]pleted [facility] 10:30:00 - [facility] Fluzone Fluzone 2021-03-27 [facility]pleted [facility] 10:30:00 - [facility] Fluzone Fluzone 2021-03-27 [facility]pleted [facility] 10:30:00 - [facility] Fluzone Fluzone 2021-03-27 [facility]pleted [facility] 10:30:00 - [facility] Fluzone Fluzone 2021-03-27 [facility]pleted [facility] 10:30:00 - [facility] Fluzone Fluzone 2021-03-27 Completed [facility] 10:30:00 - [facility] Fluzone Fluzone 2021-03-27 [facility]pleted [facility] 10:30:00 - [facility] Fluzone Fluzone 2021-03-27 [facility]pleted [facility] 10:30:00 - [facility] Pneumovax (PPSV23) Pneumovax (PPSV23) 2021-03-27 [facility]pleted [facility] 10:29:00 - [facility] Pneumovax (PPSV23) Pneumovax (PPSV23) 2021-03-27 [facility]pleted [facility] 10:29:00 - [facility] Pneumovax (PPSV23) Pneumovax (PPSV23) 2021-03-27 [facility]pleted [facility] 10:29:00 - [facility] Pneumovax (PPSV23) Pneumovax (PPSV23) 2021-03-27 [facility]pleted [facility] 10:29:00 [facility] Pneumovax (PPSV23) Pneumovax (PPSV23) 2021-03-27 Completed [facility] 10:29:00 - [facility] Pneumovax (PPSV23) Pneumovax (PPSV23) 2021-03-27 [facility]pleted [facility] 10:29:00 - [facility] Pneumovax (PPSV23) Pneumovax (PPSV23) 2021-03-27 [facility]pleted [facility] 10:29:00 - [facility] Pneumovax (PPSV23) Pneumovax (PPSV23) 2021-03-27 [facility]pleted [facility] 10:29:00 - [facility] Pneumovax (PPSV23) Pneumovax (PPSV23) 2021-03-27 [facility]pleted [facility] 10:29:00 - [facility] Pneumovax (PPSV23) Pneumovax (PPSV23) 2021-03-27 Completed [facility] 10:29:00 - [facility] FluAD FluAD 2019-11-27 Completed [facility] 08:58:00 - [facility] FluAD FluAD 2019-11-27 Completed [facility] 08:58:00 - [facility] FluAD FluAD 2019-11-27 Completed [facility] 08:58:00 - [facility] FluAD FluAD 2019-11-27 Completed [facility] 08:58:00 - [facility] FluAD FluAD 2019-11-27 Completed [facility] 08:58:00 - [facility] FluAD FluAD 2019-11-27 Completed [facility] 08:58:00 - [facility] FluAD FluAD 2019-11-27 Completed [facility] 08:58:00 - [facility] FluAD FluAD 2019-11-27 Completed [facility] 08:58:00 - [facility] FluAD FluAD 2019-11-27 Completed [facility] 08:58:00 - [facility] FluAD FluAD 2019-11-27 Completed [facility] 08:58:00 [facility] FluAD FluAD 2019-11-27 Completed [facility] 08:58:00 - [facility] FluAD FluAD 2019-11-27 Completed [facility] 08:58:00 - [facility] FluAD FluAD 2019-11-27 Completed [facility] 08:58:00 - [facility] FluAD FluAD Unknown Completed [facility] Fluzone Fluzone Unknown Completed [facility] Pneumovax (PPSV23) Pneumovax (PPSV23) Unknown Completed [facility] Vital Signs Vital Name Observation Time Observation Value Comments Source height 2022-06-25 10:30:00 60 [in_i] [facility] weight 2022-06-25 10:30:00 115 [lb_av] [facility] temperature 2022-06-25 10:30:00 96.4 [degF] [facility] bmi 2022-06-25 10:30:00 22.46 kg/m2 [facility] oximetry 2022-06-25 10:30:00 95 % [facility] respiratory rate 2022-06-25 10:30:00 17 /min Comm on [facility] blood pressure 2022-06-25 10:30:00 126 mm[Hg] [facility] - systolic [facility] blood pressure 2022-06-25 10:30:00 65 mm[Hg] [facility] - diastolic [facility] height 2021-12-26 10:10:00 60 [in_i] [facility] weight 2021-12-26 10:10:00 119 [lb_av] [facility] temperature 2021-12-26 10:10:00 97.5 [degF] [facility] bmi 2021-12-26 10:10:00 23.24 kg/m2 [facility] oximetry 2021-12-26 10:10:00 90 % [facility] respiratory rate 2021-12-26 10:10:00 16 /min Comm on [facility] blood pressure 2021-12-26 10:10:00 111 mm[Hg] [facility] - systolic [facility] blood pressure 2021-12-26 10:10:00 71 mm[Hg] [facility] - diastolic [facility] height 2021-09-19 14:30:00 61 [in_i] [facility] weight 2021-09-19 14:30:00 125.6 [lb_av] [facility] temperature 2021-09-19 14:30:00 97.3 [degF] [facility] 2021-09-19 14:30:00 23.73 kg/m2 [facility] oximetry 2021-09-19 14:30:00 96 % [facility] respiratory rate 2021-09-19 14:30:00 17 /min Comm on [facility] blood pressure 2021-09-19 14:30:00 117 mm[Hg] [facility] - systolic [facility] blood pressure 2021-09-19 14:30:00 81 mm[Hg] [facility] - diastolic [facility] height 2021-09-19 14:30:00 61 [in_i] [facility] weight 2021-09-19 14:30:00 125.6 [lb_av] [facility] temperature 2021-09-19 14:30:00 97.3 [degF] [facility] bmi 2021-09-19 14:30:00 23.73 kg/m2 [facility] oximetry 2021-09-19 14:30:00 96 % [facility] respiratory rate 2021-09-19 14:30:00 17 /min Comm on [facility] blood pressure 2021-09-19 14:30:00 117 mm[Hg] [facility] - systolic [facility] blood pressure 2021-09-19 14:30:00 81 mm[Hg] [facility] - diastolic [facility] height 2021-06-26 09:50:00 61 [in_i] [facility] weight 2021-06-26 09:50:00 134.9 [lb_av] [facility] temperature 2021-06-26 09:50:00 97.0 [degF] [facility] bmi 2021-06-26 09:50:00 25.49 kg/m2 [facility] oximetry 2021-06-26 09:50:00 93 % [facility] respiratory rate 2021-06-26 09:50:00 17 /min Comm on [facility] blood pressure 2021-06-26 09:50:00 132 mm[Hg] [facility] - systolic [facility] blood pressure 2021-06-26 09:50:00 65 mm[Hg] Common [facility] diastolic [facility] height 2021-03-27 10:00:00 61 [in_i] [facility] weight 2021-03-27 10:00:00 136.3 [lb_av] [facility] temperature 2021-03-27 10:00:00 97.3 [degF] [facility] bmi 2021-03-27 10:00:00 25.75 kg/m2 [facility] oximetry 2021-03-27 10:00:00 93 % [facility] respiratory rate 2021-03-27 10:00:00 17 /min Comm on [facility] blood pressure 2021-03-27 10:00:00 114 mm[Hg] [facility] - systolic [facility] blood pressure 2021-03-27 10:00:00 78 mm[Hg] [facility] - diastolic [facility] Procedures Procedure Date / Time Performed Performing Clinician Stefani stark [id number] 2019-05-05 00:00:00 [facility] [id number] 2019-05-05 00:00:00 [facility] Encounters Start End Encounter Admission Attending Care Care Encounter Source Date/Time Date/Time Type Type Clinicians Facility Department ID 2021-09-13 Outpatient Alaniz, STLMLC STLMLC [id number] [facility] 10:23:02 Jeremi [id number] [facility] 2021-05-10 Outpatient Alaniz, STLMLC STLMLC [id number] [facility] 14:23:26 Jeremi [id number] [facility] 2021-05-10 Outpatient Alaniz, STLMLC STLMLC [id number] [facility] 14:18:25 Jeremi [id number] [facility] 2021-05-10 Outpatient Alaniz, STLMLC STLMLC [id number] [facility] 12:07:25 Jeremi [id number] [facility] 2021-05-10 Outpatient Alaniz, STLMLC STLMLC [id number] [facility] 11:22:27 Jeremi [id number] [facility] 2021-05-10 Outpatient STLMLC STLMLC [id number] [facility] 11:15:02 [id number] [facility] 2019-05-05 Inpatient YAKOV KhanWU SURG [id number] [facility] 10:30:00 Rohith [id number] [facility] 2022-06-25 2022-06-25 OFFICE STLMLC STLMLC [id number] [facility] 00:00:00 00:00:00 VISIT [facility] LEVEL 4 [facility] 2022-03-14 2022-03-14 (TEL) STLMLC STLMLC [id number] [facility] m[facility] 00:00:00 00:00:00 [facility] 2022-01-22 2022-01-22 (TEL) STLMLC STLMLC [id number] [facility] 00:00:00 00:00:00 [facility] - [facility]I [facility] 2021-12-26 2021-12-26 OFFICE STLMLC STLMLC [id number] [facility] 00:00:00 00:00:00 [facility] - [facility] LEVEL 4 [facility] 2021-09-19 2021-09-19 OFFICE STLMLC STLMLC [id number] [facility] 00:00:00 00:00:00 [facility] - [facility] LEVEL 4 [facility] 2021-09-19 2021-09-19 SUB ANNUAL STLMLC STLMLC [id number] [facility] 00:00:00 00:00:00 [facility] WELLNESS - CHI VISIT [facility] 2021-09-19 2021-09-19 (TEL) STLMLC STLMLC [id number] [facility] m[facility] 00:00:00 00:00:00 [facility] 2021-08-29 2021-08-29 (TEL) STLMLC STLMLC [id number] [facility] 00:00:00 00:00:00 [facility] CHI [facility] 2021-06-26 2021-06-26 OFFICE STLMLC STLMLC [id number] [facility] 00:00:00 00:00:00 [facility] - [facility] LEVEL 4 [facility] 2021-03-27 2021-03-27 OFFICE STLMLC STLMLC [id number] [facility] 00:00:00 00:00:00 [facility] - [facility] LEVEL 4 [facility] 2021-03-13 2021-03-13 (TEL) STLMLC STLMLC [id number] [facility] mmon 00:00:00 00:00:[address] [facility] CHI [facility] 2021-03-06 2021-03-06 (TEL) STLMLC STLMLC [id number] [facility] m[facility] 00:00:00 00:00:00 [facility] 2021-02-10 2021-02-10 (TEL) STLMLC STLMLC [id number] [facility] m[facility] 00:00:00 00:00:00 [facility] 2020-12-23 2020-12-23 Outpatient STLMLC STLMLC [id number] [facility] 00:00:00 00:00:00 [facility] 2020-11-24 2020-11-24 Outpatient STLMLC STLMLC [id number] [facility] 00:00:00 00:00:00 [facility] 2020-09-29 2020-09-29 Outpatient STLMLC STLMLC [id number] [facility] 00:00:00 00:00:00 [facility] 2020-09-27 2020-09-27 Outpatient STLMLC STLMLC [id number] [facility] 00:00:00 00:00:00 [facility] 2020-09-26 2020-09-26 Outpatient STLMLC STLMLC [id number] [facility] 00:00:00 00:00:00 [facility] 2020-09-26 2020-09-26 Outpatient STLMLC STLMLC [id number] [facility] 00:00:00 00:00:00 [facility] 2020-09-19 2020-09-19 Outpatient STLMLC STLMLC [id number] [facility] 00:00:00 00:00:00 [facility] 2020-07-02 2020-07-02 Outpatient [facility] [id number] [facility] 11:05:00 11:05:00 [facility] 2020-06-11 2020-06-11 Outpatient [facility] [id number] [facility] 11:30:00 11:30:00 [facility] 2020-04-05 2020-04-05 Outpatient STLMLC STLMLC [id number] [facility] 00:00:00 00:00:00 [facility] 2020-03-08 2020-03-08 Outpatient STLMLC STLMLC [id number] [facility] 00:00:00 00:00:00 [facility] 2020-03-08 2020-03-08 Outpatient STLMLC STLMLC [id number] [facility] 00:00:00 00:00:00 [facility] 2019-12-03 2019-12-03 [facility] [id number] [facility] 09:15:00 09:15:[address] [facility] 2019-11-19 2019-11-19 [facility] [id number] [facility] 15:09:00 15:09:[address] [facility] 2019-09-03 2019-09-03 [facility] [id number] [facility] 11:00:00 11:00:[address] [facility] 2019-09-03 2019-09-03 [facility] [id number] [facility] 10:45:00 10:45:[address] [facility] 2019-07-23 2019-07-23 [facility] [id number] [facility] 09:24:00 09:24:[address] [facility] 2019-07-11 2019-07-11 [facility] [id number] [facility] 13:05:00 13:05:[address] [facility] 2019-06-30 2019-06-30 [facility] [id number] [facility] 14:15:00 14:15:[address] [facility] Results Test Description Test Time Test Comments Results Result Comments Source FERRITIN 2022-09-11 00:00:00 Test Item Value Reference Range Interpretation Comme nts FERRITIN (test code = 53 NG/ML See_Comment [Auto mated message] The system 38639-9) which generated this result transmitted ref erence range: 13-200 NG/ML. The refe rence range was not used to interpr et this result as normal/abnormal . HEMOGLOBIN [id number] 00:00:00 Test Item Value Reference Range Interpretation Comments HEMOGLOBIN A1c (test 5.8 % See_Comment H [Autom ated message] The code = 4548-4) system which generated this result tra nsmitted reference range : 4.2-5.6 %. The referenc e range was not used to interpret this result as normal/abnormal . TSH REFLEX TO FREE [id number] 00:00:00 Test Item Value Reference Range Interpretation Comments TSH REFLEX TO FREE 1.810 UIU/ML See_Comment [Automat ed message] T4 (test code = The system w [facility] 62909-8) generated this result transmitted ref erence range: 0.400-4. 100 UIU/ML. The ref erence range was not u sed to interpret this result as normal/abnor mal. LIPID PANEL WITH REFLEX DIRECT [id number] 00:00:00 Test Item Value Reference Range Interpretation Comments CALC LDL CHOL (test 66 MG/DL See_Comment [Automa jus message] code = 32058-9) The system [facility] generated this result transmit jus reference range : <100 MG/DL. The reference range was not used to interpret this result as normal/abnormal . CHOLESTEROL (test code 157 MG/DL See_Comment [Aut omated message] = 2093-3) The system [facility] generated this result transmit jus reference range : <200 MG/DL. The reference range was not used to interpret this result as normal/abnormal . HDL CHOLESTEROL (test 75 MG/DL See_Comment [Auto mated message] code = 2085-9) The system [facility] generated this result transmit jus reference range : >39 MG/DL. The refe rence range was not u sed to interpret th is result as normal/abnormal . RISK RATIO LDL/HDL 0.88 RATIO See_Comment [Automat ed message] (test code = 48040-9) The sy stem which generated this result transmit jus reference range : <3.22 RATIO. Th e reference range was not used to interpret this result as normal/abnormal . TRIGLYCERIDES (test 80 MG/DL See_Comment [Automa jus message] code = 2571-8) The system [facility] generated this result transmit jus reference range : <150 MG/DL. The reference range was not used to interpret this result as normal/abnormal . PATHOLOGIST SMEAR [id number] 00:00:00 Test Item Value Reference Range Interpretation Comments BASOPHILS (test code 0.8 % = 27644-7) DIAGNOSIS: (test (NOTE) code = 66337-2) COMMENTS (test code (NOTE) = 74921-2) EOSINOPHILS (test 1.9 % code = 33763-2) HEMATOCRIT (test 38.2 % See_Comment [Automated message] code = 54699-4) The system [employer] generated this result transmit jus reference range : 34.0-45.0 %. Th e reference range was not used to interpret this result as normal/abnormal . HEMOGLOBIN (test 12.4 G/DL See_Comment [Automated message] code = 718-7) The system [facility] generated this result transmit jus reference range : 11.5-15.5 G/DL. The reference range was not used to interpret this result as normal/abnormal . LYMPHOCYTES (test 15.3 % code = 99107-9) MCH (test code = 32.6 PG See_Comment [Automated message] 41749-7) The system [employer] generated this result transmit jus reference range : 25.0-33.0 PG. T he reference range was not used to interpret this result as normal/abnormal . MCHC (test code = 32.5 G/DL See_Comment [Automate d message] 07411-8) The [facility] this result transmit jus reference range : 31.0-36.0 G/DL. The reference range was not used to interpret this result as normal/abnormal . MCV (test code = 100.5 fL See_Comment H [Automated message] 46457-8) The system [employer] generated this result transmit jus reference range : 80.0-99.0 fL. T he reference range was not used to interpret this result as normal/abnormal . MICROSCOPIC (NOTE) DESCRIPTION: (test code = 18714-2) MONOCYTES (test code 12.9 % = 65013-7) NEUTROPHILS (test 68.9 % code = 40947-2) NUCLEATED RBCS (test 0.0 /100 WBC'S See_Comment [Aut omated message] code = 60743-1) The system [employer] generated this result transmit jus reference range : 0.0 /100 WBC'S. The reference range was not used to interpret this result as normal/abnormal . PATHOLOGIST: (test (NOTE) code = 24364-5) PLATELET COUNT (test 263 K/UL See_Comment [Autom ated message] code = 82962-3) The system [employer] generated this result transmit jus reference range : 130-400 K/UL. T he reference range was not used to interpret this result as normal/abnormal . RBC (test code = 3.80 M/UL See_Comment [Automated message] 66726-9) The system [facility] generated this result transmit jus reference range : 3.80-5.40 M/UL. The reference range was not used to interpret this result as normal/abnormal . RDW (test code = 15.3 % See_Comment H [Automated message] 25103-0) The system [facility] generated this result transmit jus reference range : 11.5-15.0 %. Th e reference range was not used to interpret this result as normal/abnormal . WBC (test code = 4.7 K/UL See_Comment [Automated message] 59463-8) The system [facility] generated this result transmit jus reference range : 3.5-11.0 K/UL. The reference range was not used to interpret this result as normal/abnormal . IRON BINDING CAPACITY AND IRON AND % [id number] 00:00:00 Test Item Value Reference Range Interpretation Comments CALC % IRON SAT (test 31 % See_Comment [Auto mated message] code = 2502-3) The system [facility] generated this result transmitted ref erence range: 20-50 %. The reference range was not used to int erpret this result as normal/abnormal . CALC TOTAL IBC (test 314 UG/DL See_Comment [Autom ated message] code = 59753-9) The system [facility] generated this result transmitted ref erence range: 250-450 UG/DL. The reference r mae was not used to interpret this result as normal/abnor mal. IRON, SERUM (test code 97 UG/DL See_Comment [Aut omated message] = 7078-4) The system [facility] generated this result transmitted ref erence range: 37-145 U G/DL. The reference r mae was not used to interpret this result as normal/abnor mal. UNSATURATED IBC (test 217 UG/DL See_Comment [Auto mated message] code = 7371-5) The system [facility] generated this result transmitted ref erence range: 112-347 UG/DL. The reference r mae was not used to interpret this result as normal/abnor mal. COMPREHENSIVE METABOLIC [id number] 00:00:00 Test Item Value Reference Range Interpretation Comments ALBUMIN (test code = 4.4 G/DL See_Comment [Autom ated message] 1641-7) The system [facility] generated this result transmit jus reference range : 3.5-5.2 G/DL. T he reference range was not used to interpret this result as normal/abnormal . ALKALINE PHOSPHATASE 75 U/L See_Comment [Autom ated message] (test code = 6768-6) The [facility] tem which generated this result transmit jus reference range : 40-142 U/L. The reference range was not used to interpret this result as normal/abnormal . BILIRUBIN, TOTAL 0.3 MG/DL See_Comment [Automated message] (test code = 1975-2) The [facility] tem which generated this result transmit jus reference range : <=1.2 MG/DL. Th e reference range was not used to interpret this result as normal/abnormal . BUN (test code = 17 MG/DL See_Comment [Automated message] 3094-0) The system [facility] generated this result transmit jus reference range : 8-23 MG/DL. The reference range was not used to interpret this result as normal/abnormal . CALCIUM (test code = 10.9 MG/DL See_Comment H [Autom ated message] 21225-8) The system [facility] generated this result transmit jus reference range : 8.5-10.5 MG/DL. The reference range was not used to interpret this result as normal/abnormal . CALC A/G RATIO (test 1.5 RATIO See_Comment [Autom ated message] code = 1759-0) The system [facility] generated this result transmit jus reference range : 1.0-2.6 RATIO. The reference range was not used to interpret this result as normal/abnormal . CALC BUN/CREAT (test 17 RATIO See_Comment [Autom ated message] code = 3097-3) The system [facility] generated this result transmit jus reference range : 6-28 RATIO. The reference range was not used to interpret this result as normal/abnormal . CALC GLOBULIN (test 3.0 G/DL See_Comment [Automa jus message] code = 73306-5) The system [facility] generated this result transmit jus reference range : 1.9-3.7 G/DL. T he reference range was not used to interpret this result as normal/abnormal . CARBON DIOXIDE (test 31 MEQ/L See_Comment [Autom ated message] code = 1963-8) The system [facility] generated this result transmit jus reference range : 19-31 MEQ/L. Th e reference range was not used to interpret this result as normal/abnormal . CHLORIDE (test code 94 MEQ/L See_Comment L [Automa jus message] = 2075-0) The system [employer] generated this result transmit jus reference range : 95-107 MEQ/L. T he reference range was not used to interpret this result as normal/abnormal . CREATININE (test 0.99 MG/DL See_Comment [Automated message] code = 2160-0) The system [employer] generated this result transmit jus reference range : 0.60-1.30 MG/DL . The reference range was not used to interpret this result as normal/abnormal . eGFR (2020 CKD-EPI) 59 ML/MIN/1.73 See_Comment L [Auto mated message] (test code = The system [employer] 45552-2) generated this result transmit jus reference range : >60 ML/MIN/1.73. Th e reference range was not used to interpret this result as normal/abnormal . GLUCOSE (test code = 94 MG/DL See_Comment [Autom ated message] 1558-6) The system [employer] generated this result transmit jus reference range : 70-99 MG/DL. Th e reference range was not used to interpret this result as normal/abnormal . POTASSIUM (test code 5.1 MEQ/L See_Comment [Autom ated message] = 2823-3) The system [employer] generated this result transmit jus reference range : 3.5-5.4 MEQ/L. The reference range was not used to interpret this result as normal/abnormal . PROTEIN, TOTAL (test 7.4 G/DL See_Comment [Autom ated message] code = 2885-2) The system [employer] generated this result transmit jus reference range : 6.1-8.3 G/DL. T he reference range was not used to interpret this result as normal/abnormal . AST (test code = 19 U/L See_Comment [Automated message] 1920-8) The system [employer] generated this result transmit jus reference range : 9-40 U/L. The reference range was not used to interpret this result as normal/abnormal . ALT (test code = 14 U/L See_Comment [Automated message] 1742-6) The system [employer] generated this result transmit jus reference range : 5-40 U/L. The reference range was not used to interpret this result as normal/abnormal . SODIUM (test code = 133 MEQ/L See_Comment [Automa jus message] 2355-2) The system [employer] generated this result transmit jus reference range : 133-146 MEQ/L. The reference range was not used to interpret this result as normal/abnormal . ARTERY,[id number] 10:05:00 RUN DATE: 05/07/19 [place] - LAB PAGE 1 RUN TIME: 1005 Specimen Inquiry RUN USER: INTERFACE PATIENT : RACHEAL SABILLON LOC: ENA U #: [id number] AGE/SX: 73/F ROOM: [facility] RE05/05/19[facility] DR: Rohith Cruz MD : 47 BED: A DIS: STATUS: ADM IN TLOC: SPEC #: [id number] RECD: 05/05/19-1611 STATUS: DIEGO BYNUM #: [id number] GUS: 05/05/[address] [facility] [address]: Rohith Cruz MD ENTERED: 05/05/19 SP TYPE: ARTERY, PL OTHR DR: Katie Marc MD, Nioti R MD Pepper, Gregory S MDORDERED: DECAL, SURG PATH LVL 3, SURG PATH LVL 4 CODES: [id number] - PLAQUE, NOS [id number] - ARTERY, NOS [id number] - CAROTID ARTERY ATHEROSCLEROSIS [id number] - CERVIX EXCISIONAL BIOP [id number] - LYMPH NODE, NOS COPIES TO: Katie Marc MD [address] [place] [address] [address] [place], [place] [address] [email or web address] [place] [address] [place] [address] [place] [address] [facility] [address] [place] [address] [place] [address] [facility] [address] [place] [address] ICD CODES: 440 - PROCEDURES: DECAL (05/06/19-09) SURG PATH LVL 3 (05/05/19-1612) SURG PATH LVL 4 (05/06/19-1325) TISSUES: A. ARTERY, NOS - LT CAROTID PLAQUE B. LYMPH NODE, NOS - LT CERVICAL LYMPH NODE CONTINUED ON NEXT PAGE RUN DATE: 05/07/19 [facility] PAGE 2 RUN TIME: 1005 Specimen Inquiry RUN USER: INTERFACE SPEC #: [id number] PATIENT: RACHEAL SABILLON #[id number] ([place], Located Within [facility]) CLINICAL HISTORY LEFT INTERNAL CAROTID ARTERY STENOSIS CPT CODES CPT CODE(S): 86891 , 14155 , 79779 , , , , FINAL DIAGNOSISA. Plaque, left carotid artery, endarterectomy: ATHEROSCLEROSIS, CALCIFIC [...] with variable mild perisinusoidal and paracortical reactive changes.No atypical features. /cm Signed David Maier 05/07/19 1005 END OF REPORT BASIC METABOLIC [id number] 04:51:00 Test Item Value Reference Range Interpretation Comments SODIUM (test code = 135 MMOL/L 137-145 L NA) POTASSIUM (test code = 3.6 MMOL/L 3.5-5.1 N K) CHLORIDE (test code = 93 MMOL/L 98-107 L CL) CARBON DIOXIDE (test 33 MMOL/L 22-30 H code = CO2) GLUCOSE (test code = 93 MG/DL 74-106 GLU) BLOOD UREA NITROGEN 11 MG/DL 7-17 N (test code = BUN) GLOMERULAR FILTRATION > 60 Report ing units: RATE (test code = GFR) ml/mi n/1.73 m2 (Modified MDRD Formula)Referen ce Range: > or = 6 0 ml/min/1.73 m2 CREATININE (test code 0.60 MG/DL 0.52-1.04 N = CREAT) CALCIUM (test code = 9.6 MG/DL 8.4-10.2 N CA) BASIC METABOLIC [id number] 04:40:00 Test Item Value Reference Range Interpretation [...] code = MG/DL 8.7-9.7 CA) BASIC METABOLIC [id number] 04:38:00 Test Item Value Reference Range Interpretation [...] code = CA) MG/DL 8.7-9.7 BASIC METABOLIC [id number] 04:37:00 Test Item Value Reference Range Interpretation [...] code = CA) MG/DL 8.7-9.7 CBC W/AUTO [id number] 04:18:00 Test Item Value Reference Range Interpretation [...] K/mm3 0.0-0.1 N NRBC#) - XR CHEST [id number] 09:05:00 Patient Name: RAHCEAL SABILLON Unit No: [id number] EXAMS: CPT CODE: [id number] XR CHEST 1V [id number] ID: [id number] HISTORY: Postoperative, left ICA stenosis COMPARISON: Chest x-ray of the prior day FIND INGS: Mild right middle lobe infiltrate/atelectasis is nearly resolved, otherwise the lungs are clear. Right subclavian line remains appropriately positioned, BLAKE drain in place within the neck. The heart and pulmonary vasculature is normal. Osseous structures are unremarkable. IMPRESSION: Mild right middle lobe infiltrate/atelectasis is nearly resolved, otherwise the lungs are clear ElectronicallySigned by Corbin Holliday MD on 05/06/2019 at 0905 Reported and signed by: Corbin Holliday MD CC: Katie Marc MD Technologist: Lety Vazquez RT(R) Transcrpt Date/Tm/Trnsp: 05/06/2019 (904) LucianR.AJP6 Orig Print D/T: S: 05/06/2019 (907) [facility] NAME: RACHEAL SABILLON [id number] PHYS: [place] [address] : 1945 AGE: 73 SEX: F LOC: Z.SI04 A PHONE #: [phone] EXAM DATE: 05/06/2019 STATUS: ADM IN FAX #: [phone] RADIOLOGY NO: PAGE 1 Signed Report BASIC METABOLIC [id number] 06:09:00 Test Item Value Reference Range Interpretation [...] code = 9.4 MG/DL 8.4-10.2 N CA) [id number] 06:09:00 Test Item Value Reference Range Interpretation Comments MAGNESIUM (test code = MAG) 1.5 MG/DL 1.6-2.3 L BASIC METABOLIC [id number] 05:59:00 Test Item Value Reference Range Interpretation [...] CALCIUM (test code = CA) MG/DL 8.7-9.7 [id number] 05:59:00 Test Item Value Reference Range Interpretation Comments MAGNESIUM (test code = MAG) MG/DL 1.6-2.3 CBC W/AUTO [id number] 05:46:00 Test Item Value Reference Range Interpretation [...] 0.00 K/mm3 0.0-0.1 N NRBC#) BASIC METABOLIC [id number] 13:49:00 Test Item Value Reference Range Interpretation Comments SODIUM (test code = 136 MMOL/L 137-145 L NA) POTASSIUM (test code = 2.9 MMOL/L 3.5-5.1 L SPARROW D TO RHODEAGLES MERE.V& K) READBACK ON AT 1348 BY Andrey [...] code = 9.7 MG/DL 8.4-10.2 N CA) [id number] 13:49:00 Test Item Value Reference Range Interpretation Comments MAGNESIUM (test code = MAG) 1.4 MG/DL 1.6-2.3 L BASIC METABOLIC [id number] 13:48:00 Test Item Value Reference Range Interpretation [...] code = 9.7 MG/DL 8.4-10.2 N CA) [id number] 13:48:00 Test Item Value Reference Range Interpretation Comments MAGNESIUM (test code = MAG) MG/DL 1.6-2.3 - XR CHEST [id number] 13:35:00 Patient Name: RACHEAL SABILLON Unit No: [id number] EXAMS: CPT CODE: [id number] XR CHEST 1V [id number] of dictation: B2 Portable chest one view. HISTORY: post op COMMENT: Compared to 05/04/2019. P atient has undergone left carotid endarterectomy with drain [...] Balderas M.D. CC: Katie Marc MD Technologist: FORMERLY [facility] STUDENT ; Alhaji Cha, RT(R) Transcrpt Date/Tm/Trnsp: 05/05/2019 (2416) LucianR.PXC Orig Print D/T: S: 05/05/2019 (6434) [facility] NAME: RACHEAL SABILLON [id number] PHYS: [place] [address] : 1945 AGE: 73 SEX: F LOC: Z.SI04 A PHONE #: [phone] EXAM DATE: 05/05/2019 STATUS: ADM IN FAX #: [phone] RADIOLOGY NO: PAGE 1 Signed Report CBC W/AUTO [id number] 13:20:00 Test Item Value Reference Range Interpretation [...] 0.00 K/mm3 0.0-0.1 N NRBC#) ARTERIAL BLOOD [id number] 13:17:00 Test Item Value Reference Range Interpretation [...] (test code = 60 % COHBGFFIO2) PROTHROMBIN [id number] 13:06:00 Test Item Value Reference Range Interpretation Comments PROTHROMBIN TIME 10.5 SECONDS 9.6-11.6 N PATIENT (test code = PTP) INTERNATIONAL NORMAL 1.0 0.8-1.1 N The INR is to be RATIO (test code = used only for INR) monitoring oral anticoagulantth erap y. INDICATION I NR VALUE ---- ---- ---- -------1. Prophylaxis, de ep venous thrombos is, including high risk surgery. 2.0 - 3.0 2. Prophylaxis, deep venous thrombosis, hip surgery, treatm ent for deep venous thrombosis or pulmonary prevention of systemic emboli sm in patients wit h valvular heart disease, atrial fibrillation, tissue heart va lve, or acute myocar dial infarction. 2. 0 - 3.0 3. Turntable Man al prosthesis hear t valves, recurre nt systemic emboli sm. 3.0 - 4.5 PTT [id number] 13:06:00 Test Item Value Reference Range Interpretation Comments PTT ACTIVATED (test code = APTT) 30.4 SECONDS 22.0-33.0 N HIV 12 AB [id number] 13:02:00 Test Item Value Reference Range Interpretation Comments HIV 1 2 COMBO AG/AB SCREEN AB/AG NON REACTIVE NONREACTIVE (test code = [id number]) CBC W/AUTO [id number] 12:51:00 Test Item Value Reference Range Interpretation [...] 0.00 K/mm3 0.0-0.1 N NRBC#) BASIC METABOLIC [id number] 12:21:00 Test Item Value Reference Range Interpretation [...] 9.9 MG/DL 8.4-10.2 N CA) BASIC METABOLIC [id number] 12:20:00 Test Item Value Reference Range Interpretation [...] code = MG/DL 8.7-9.7 CA) BASIC METABOLIC [id number] 12:18:00 Test Item Value Reference Range Interpretation [...] code = CA) MG/DL 8.7-9.7 BASIC METABOLIC [id number] 12:17:00 Test Item Value Reference Range Interpretation [...] CA) MG/DL 8.7-9.7 - XR CHEST 2 [id number] 11:39:00 Patient Name: RACHEAL SABILLON Unit No: [id number] EXAMS: CPT CODE: [id number] XR CHEST 2 V [id number]: T18 EXAM: CHEST 2 VIEWS INDICATION: PRE-OP COMPARISON: Chest x-ray October 01, 2018 TECHNIQUE: PA and lateral chest radiographs. FINDINGS: Lungs are clear bilaterally without effusion. Heart andmediastinum are normal in size and contour. Bones and peripheral soft tissues are unremarkable. IMPRESSION: Lungs are clear. No acute abnormality. at 1139 Reported and signed by: Imani Mueller MD CC: Katie Marc MD Technologist: Jacqueline Jiménez, RT (R) Transcrpt Date/Tm/Trnsp: 05/04/2019 (1343) t.SDR.JP19 Orig Print D/T: S: 05/04/2019 (3911)[facility] NAME: RACHEAL SABILLON [id number] PHYS: [place] [address] : 1945 AGE: 73 SEX: F LOC: Z.SRG PHONE #: [phone] EXAM DATE: 05/04/2019 STATUS: PRE [facility] FAX #: [phone] RADIOLOGY NO: PAGE 1 Signed ReportBASIC METABOLIC [id number] 05:09:00 Test Item Value Reference Range Interpretation [...] code = 9.0 MG/DL 8.4-10.2 N CA) [id number] 05:09:00 Test Item Value Reference Range Interpretation Comments MAGNESIUM (test code = MAG) 1.8 MG/DL 1.6-2.3 N CBC W/AUTO [id number] 04:46:00 Test Item Value Reference Range Interpretation [...] 0.00 K/mm3 0.0-0.1 N NRBC#) BASIC METABOLIC [id number] 06:03:00 Test Item Value Reference Range Interpretation [...] code = 8.7 MG/DL 8.4-10.2 N CA) [id number] 06:03:00 Test Item Value Reference Range Interpretation Comments MAGNESIUM (test code = MAG) 2.1 MG/DL 1.6-2.3 N CBC W/AUTO [id number] 05:32:00 Test Item Value Reference Range Interpretation [...] 0.00 K/mm3 0.0-0.1 N NRBC#) ARTERIAL BLOOD [id number] 12:23:00 Test Item Value Reference Range Interpretation [...] FT/NC E dited by: THOMASBGG o n 10/01/18:183635 9 1222: DELIVER Y previously repo rted as: FT/NC ABG TEMPERATURE (test 37.0 C >37 code = TEMPA) ABG SITE (test code = AL SITEA) ALLENS TEST (test code NA CHECK = ALLENS) FIO2 (test code = 40 % COHBGFFIO2) ARTERY,[id number] 11:58:00 RUN DATE: 10/01/18 [facility] PAGE 1 RUN TIME: 1158 Specimen Inquiry RUN USER: INTERFACE PATIENT: RACHEAL SABILLON LOC: ENA U #: [id number] AGE/SX: 72/F ROOM: [facility] RE09/30/18REG DR: Rohith Cruz MD : [birth year] BED: A DIS: STATUS: ADM IN TLOC: SPEC #: [id number] RECD: 09/30/18 STATUS:DIEGO BYNUM #: [id number] GUS: 09/30/[address]: Rohith Cruz MD ENTERED: 09/30/18 SP TYPE: ARTERY, PL OTHR DR: Katie Marc MD, Nioti R MD Pepper, Gregory S MDORDERED: DECAL, SURG PA TH LVL 3, SURG PATH LVL 4 CODES: [id number] - PLAQUE, NOS [id number] - ARTERY, NOS [id number] - CAROTID ARTERY ATHEROSCLEROSIS [id number] - CERVIX EXCISIONAL BIOP [id number] - LYMPH NODE, NOS COPIES TO: Katie Marc MD [address] [place] [address] [address] [place] [address] [email or web address] [address] [place] [address] [place] [address] [facility] [address] [place] [address] [place] [address] [facility] [address] [place] [address] ICD CODES: 440 - PROCEDURES: DECAL (10/01/18) SURG PATH LVL 3 (09/30/18) SURG PATH LVL 4 (09/30/18) TISSUES: A. ARTERY, NOS - RT ARTERY PLAQUE B. LYMPH NODE, NOS - RT CERVICALLYMPH NODE CONTINUED ON NEXT PAGE RUN DATE: 10/01/18 [place] - LAB PAGE 2 RUN TIME: 1158 Specimen Inquiry RUN USER: INTERFACE SPEC #: [id number] PATIENT: RACHEAL SABILLON #[id number] (Continued) CLINICAL HISTORY RIGHT INTERNAL CAROTID ARTERY STENOSIS CPT CODES CPT CODE(S): 76070 , 37786 , 77844 , , , , FINAL DIAGNOSIS A. Plaque, right carotid artery, endarterectomy: SEVERE ATHEROSCLEROSIS, OCCLUSIVE AND CALCIFIC B. Lymph node, right cervical, excisional biopsy: MINIMAL, NON-SPECIFIC, REACTIVE CHANGE GROSS DESCRIPTIONA. Right carotid plaque. Received are two pieces of yellow-wyman, heavily calcified plaque (combined measurement 3.5 x 1 x 0.8 cm). Sections are submitted for decalcification as A1. B. Right cervical lymph node. Received is a wyman-pink lymph node (1.3 x 1 x 0.7 cm), sectioned and entirely submitted as B1 . /tc/hazel MICROSCOPIC DESCRIPTION A. Right carotid plaque. Nodular atheromatous plaque with dense calcification and stromal sclerosis. No atypia. No malignancy. B. Right cervical lymph node. Benign lymph node with minimal hyperplastic deviation (reactive change). No atypia. No malignancy. /cm -- Signed SIGNATURE ON FILE David Maier 10/01/18 1158 END OF REPORT - XR CHEST [id number] 07:45:00 Patient Name: RACHEAL SABILLON Unit No: [id number] EXAMS: CPT CODE: [id number] XR CHEST 1V [id number]: - XR CHEST 1V. LOCATION: B2. HISTORY: post op. COMPARISON: Radiograph dated 09/30/2018. TECHNIQUE: Single AP view of the chest was obtained. FINDINGS: Left subclavian line is unchanged in position. Right neck surgical drain is again noted. The heart is normal in size. Calcifications are seen in an ectatic thoracic aorta. Mild left basilar opacities are present. The right lung is clear. Nonew osseous abnormality is identified. IMPRESSION: Mild left basilar atelectasis and/or pleural fluid. at 0745 Reported and signed by: Kayode Juarez MD CC: Katie Marc MD; Brisa GARCIA Technologist: Jeffrey High, RT(R) Transcrpt Date/Tm/Trnsp: 10/01/2018 (0745) LakePR7 Orig Print D/T: S: 10/01/2018 (0748) [facility] NAME: RACHEAL SABILLON [id number] PHYS: [place] [address] : 1945 AGE: 72 SEX: F LOC: ZCelioSI07 Stephy PHONE #: [phone] EXAM DATE: 10/01/2018 STATUS: ADM IN FAX #: [phone] RADIOLOGY NO: PAGE 1 Signed ReportBASIC METABOLIC [id number] 05:58:00 Test Item Value Reference Range Interpretation [...] code = 8.7 MG/DL 8.4-10.2 N CA) [id number] 05:58:00 Test Item Value Reference Range Interpretation Comments MAGNESIUM (test code = MAG) 1.7 MG/DL 1.6-2.3 N CBC W/AUTO [id number] 05:30:00 Test Item Value Reference Range Interpretation [...] code = 0.00 K/mm3 0.0-0.1 N NRBC#) [id number] 22:38:00 Test Item Value Reference Range Interpretation Comments POTASSIUM (test code = K) 3.3 MMOL/L 3.5-5.1 L [id number] 22:38:00 Test Item Value Reference Range Interpretation Comments MAGNESIUM (test code = MAG) 1.7 MG/DL 1.6-2.3 ARTERIAL BLOOD [id number] 17:57:00 Test Item Value Reference Range Interpretation [...] code = COHBGFFIO2) 40 % BASIC METABOLIC [id number] 16:18:00 Test Item Value Reference Range Interpretation [...] code = 8.9 MG/DL 8.4-10.2 N CA) [id number] 16:18:00 Test Item Value Reference Range Interpretation Comments MAGNESIUM (test code = MAG) 1.3 MG/DL 1.6-2.3 L CBC W/AUTO [id number] 16:06:00 Test Item Value Reference Range Interpretation [...] K/mm3 0.0-0.1 N NRBC#) - XR CHEST [id number] 15:29:00 Patient Name: RACHEAL SABILLON Unit No: [id number] EXAMS: CPT CODE: [id number] XR CHEST 1V [id number]: CHEST ONE VIEW INDICATION: Postop LOCATION: B2 COMPARISON: September 29, 2018 TECHNIQUE: AP view of the chest FINDINGS: Left-sided central venous catheter overlies the SVC. The heart size is normal. There are mild congestive changes bilaterally. No pneumothorax or pleural effusion is identified. The osseous structures are normal. IMPRESSION: Mild congestive changes bilaterally. No pneumothorax. El ectronically Signed by Ryann Zuniga MD on 09/30/2018 at 1529 Reported and signed by: Ryann Zuniga MD CC: Katie Marc MD; Brisa GARCIA Technologist: Alhaji Cha, RT(R) Transcrpt Date/Tm/Trnsp: 09/30/2018 (1529) 16 Orig Print D/T: S: 09/30/2018 (1532) [facility] NAME: RACHEAL SABILLON [address] PHYS: [place] [address] : 1945 AGE: 72 SEX: F LOC: Z.SI07 A PHONE #: [phone] EXAM DATE: 09/30/2018 STATUS: ADMIN FAX #: [phone] RADIOLOGY NO: PAGE 1 Signed ReportHIV 12 AB [id number] 19:14:00 Test Item Value Reference Range Interpretation Comments AB HIV 1 2 NON REACTIVE NON-REAC NOTE: A NONREAC TIVE RESULT (test code = INDICATES THAT HIV-1 AND PQJ28JS) HIV-2ANTIBODIES HAVE NOT BEEN FOUND IN T HIS PATIENT SPECIMEN. ANON- REACTIVE RESULT, HOWEVER , DOES NOT PRECLUDE PREVIO USEXPOSURE OR INFECTION WI TH HIV1. AG HIV1 P24 NON REACTIVE NONE REAC (test code = VKD5D20) PROTHROMBIN [id number] 14:22:00 Test Item Value Reference Range Interpretation Comments PROTHROMBIN TIME 10.4 SECONDS 9.6-11.6 N PATIENT (test code = PTP) INTERNATIONAL NORMAL 1.0 0.8-1.1 N The INR is to be RATIO (test code = used only for INR) monitoring oral anticoagulantth erap y. INDICATION I NR VALUE ---- ---- ---- -------1. Prophylaxis, de ep venous thrombos is, including high risk surgery. 2.0 - 3.0 2. Prophylaxis, deep venous thrombosis, hip surgery, treatm ent for deep venous thrombosis or pulmonary prevention of systemic emboli sm in patients wit h valvular heart disease, atrial fibrillation, tissue heart va lve, or acute myocar dial infarction. 2.0 - 3.0 3. Turntable Man al prosthesis hear t valves, recurre nt systemic emboli sm. 3.0 - 4.5 PTT [id number] 14:22:00 Test Item Value Reference Range Interpretation Comments PTT ACTIVATED (test code = APTT) 29.3 SECONDS 22.0-33.0 N BASIC METABOLIC [id number] 14:18:00 Test Item Value Reference Range Interpretation [...] 8.4-10.2 N CA) - XR CHEST 2 [id number] 14:14:00 Patient Name: RACHEAL SABILLON Unit No: [id number] EXAMS: CPT CODE: [id number] XR CHEST 2 V [id number] EXAM: CHEST 2 VIEWS INDICATION: PRE-OP LOCATION: B2 COMPARISON: None available TECHNIQUE: PA and lat eral views of the chest. FINDINGS: The heart [...] (1414) 16 Orig Print D/T: S: 09/29/2018 (5876) [facility] NAME: RACHEAL SABILLON [address] PHYS: [place] [address] : 1945 AGE: 72 SEX: F LOC: ZSakshiHU PHONE #: [phone] EXAM DATE: 09/29/2018 STATUS: PRE IN FAX #: [phone] RADIOLOGY NO: PAGE 1 Signed ReportCBC W/AUTO [id number] 13:57:00 Test Item Value Reference Range Interpretation [...] 0.00 K/mm3 0.0-0.1 N NRBC#) BASIC METABOLIC [id number] 06:04:00 Test Item Value Reference Range Interpretation [...] LIPOPROTEIN LDL (test 65 MG/DL 0-99 N OPTIM AL.........<100 code = LDL) mg/dLNEAR OPTIMAL/ABOVE OPTIMAL........ .100-12 9 mg/dL BORDERL INE HIGH.........13 0-159 mg/dL HIGH.........16 0-189 mg/dL VERY HIGH.........>/ = 190 mg/dL [id number] 06:04:00 Test Item Value Reference Range Interpretation Comments MAGNESIUM (test code = MAG) 1.9 MG/DL 1.6-2.3 N PROTHROMBIN [id number] 06:00:00 Test Item Value Reference Range Interpretation Comments PROTHROMBIN TIME 10.3 SECONDS 9.6-11.6 N PATIENT (test code = PTP) INTERNATIONAL NORMAL 1.0 0.8-1.1 N The INR is to be RATIO (test code = used only for INR) monitoring oral anticoagulantth erap y. INDICATION INR VALUE ---- ---- ---- -------1. Prophylaxis, de ep venous thrombos is, including high risk surgery. 2.0 - 3.0 2. Prophylaxis, deep venous thrombosis, hip surgery, treatm ent for deep venous thrombosis or pulmonary prevention of systemic emboli sm in patients wit h valvular heart disease, atrial fibrillation, tissue heart va lve, or acute myocar dial infarction. 2.0 - 3.0 3. Turntable Man al prosthesis hear t valves, recurre nt systemic emboli sm. 3.0 - 4.5 Comments to Textile Pin Worker: WILL BRING TO LABPTT [id number] 06:00:00 Test Item Value Reference Range Interpretation Comments PTT ACTIVATED (test code = APTT) 29.3 SECONDS 22.0-33.0 N Comments to Textile Pin Worker: WILL BRING TO LABBASIC METABOLIC [id number] 05:54:00 Test Item Value Reference Range Interpretation [...] LDL (test MG/DL 0-99 code = LDL) [id number] 05:54:00 Test Item Value Reference Range Interpretation Comments MAGNESIUM (test code = MAG) 1.9 MG/DL 1.6-2.3 N CBC W/AUTO [id number] 05:41:00 Test Item Value Reference Range Interpretation [...]
--- NOTE | 2023-02-14 14:31 | ER ---
Nurse's Notes [facility] Name: Racheal Dia Age: 77 yrs Sex: Female : 1945 Arrival Date: 02/14/2023 Time: 14:08 Bed 14 Private MD: Diagnosis: Otalgia, left ear Presentation: 02/14 14:19 Chief complaint: Patient states: left ear pain X2 weeks. Pt states that the pain cm10 radiates down her neck and to her shoulder. Pt states that she feels like she has fluid in her ear. Coronavirus screen: Vaccine status: Patient reports receiving the 2nd dose of the covid vaccine. Client denies travel out of the [place] in the last 14 days. Ebola Screen: Patient denies travel to an Ebola-affected area in the 21 days before illness onset. No symptoms or risks identified at this time. Initial Sepsis Screen: Does the patient meet any 2 criteria? No. Patient's initial sepsis screen is negative. Does the patient have a suspected source of infection? No. Patient's initial sepsis screen is negative. Risk Assessment: Do you want to hurt yourself or someone else? Patient reports no desire to harm self or others. Onset of symptoms was February 14, 2023. 14:19 Acuity: AISHA 4 cm10 14:19 Method Of Arrival: Ambulatory cm10 Historical: - Allergies: 14:19 No Known Allergies; cm10 - PMHx: 14:19 CHF; Hypercholesterolemia; Hypertension; Hypertensive disorder; cm10 - PSHx: 14:19 Heart Stents; Splenectomy; cm10 - Immunization history:: Adult Immunizations unknown. - Social history:: Smoking status: Patient reports the use of cigarette tobacco products, denies chronic smoking, but will smoke occasionally. Screenin:30 [facility] ED Fall Risk Assessment (Adult) History of falling in the last 3 months, kc6 including since admission No falls in past 3 months (0 pts) Confusion or Disorientation No (0 pts) Intoxicated or Sedated No (0 pts) Impaired Gait No (0 pts) Mobility Assist Device Used No (0 pt) Altered Elimination No (0 pt) Score/Fall Risk Level 0 - 2 = Low Risk. Abuse screen: Denies threats or abuse. Denies injuries from another. Nutritional screening: No deficits noted. Tuberculosis screening: No symptoms or risk factors identified. Assessment: 14:55 General: Appears in no apparent distress. comfortable, Behavior is calm, cooperative, kc6 appropriate for age. Pain: Complains of pain in left arm and left ear. Neuro: Level of Consciousness is awake, alert, obeys commands, Oriented to person, place, time, situation, Appropriate for age. Cardiovascular: Capillary refill < 3 seconds. Respiratory: Airway is patent Trachea midline Respiratory effort is even, unlabored, Respiratory pattern is regular, symmetrical. GI: No signs and/or symptoms were reported involving the gastrointestinal system. : No signs and/or symptoms were reported regarding the genitourinary system. EENT: Ear canal. Derm: No signs and/or symptoms reported regarding the dermatologic system. Skin is intact, is healthy with good turgor, Skin is pink, warm \T\ dry. Musculoskeletal: No signs and/or symptoms reported regarding the musculoskeletal system. Circulation, motion, and sensation intact. Capillary refill < 3 seconds, Range of motion: intact in all extremities. Vital Signs: 14:19 BP 128 / 86; Pulse 73; Resp 16; Temp 97.3; Pulse Ox 98% on R/A; Weight 58.97 kg; Height cm10 5 ft. 1 in. ; Pain 5/10; 14:19 Body Mass Index 24.56 (58.97 kg, 154.94 cm) cm10 14:19 Pain Scale: Adult cm10 ED Course: 14:11 Patient arrived in ED. im 14:12 [facility] 14:12 Bronson Alaniz MD is Attending Physician. 7 14:21 Triage completed. cm10 14:21 Arm band placed on Patient placed in an exam room, on a stretcher. cm10 14:23 Dania Baker, ZANE is Primary Nurse. kc6 14:30 Patient has correct armband on for positive identification. Bed in low position. Call kc6 light in reach. Side rails up X 1. Adult w/ patient. Client placed on continuous cardiac and pulse oximetry monitoring. NIBP monitoring applied. 14:56 No provider procedures requiring assistance completed. Patient did not have IV access kc6 during this emergency room visit. Administered Medications: 14:45 Drug: Ketorolac IM 30 mg IM once Route: IM; Site: left deltoid; kc6 14:57 Follow up: Response: No adverse reaction kc6 Medication: 14:56 VIS not applicable for this client. kc6 Outcome: 14:30 Discharge ordered by . elodia 14:56 Discharged to home ambulatory, with family, kc6 14:56 Condition: good 14:56 Discharge instructions given to patient, Instructed on discharge instructions, follow up and referral plans. medication usage, Demonstrated understanding of instructions, follow-up care, medications, Prescriptions given X 1, 14:56 Patient left the ED. kc6 Signatures: Verna Duarte FNP FNP jh7 Campbell, Kaitlyn, RN RN kc6 Brook Stewart Clarissa RN RN cm10 Corrections: (The following items were deleted from the chart) 14:19 14:19 PMHx: diabetes mellitus; cm10 cm10 14:19 14:19 PSHx: Thyroidectomy; cm10 cm10
--- NOTE | 2023-02-14 14:31 | EDPHYS ---
Physician Documentation [facility] Name: Racheal Dia Age: 77 yrs Sex: Female : 1945 Arrival Date: 02/14/2023 Time: 14:08 Bed 14 Private MD: ED Physician Bronson Alaniz HPI: 02/14 14:19 This 77 yrs old Black Female presents to ER via Ambulatory with complaints of Ear Pain. jh7 14:19 The patient presents with a fullness, pain, that is acute. The complaints affect the jh7 left ear. Onset: The symptoms/episode began/occurred 2 week(s) ago. Associated signs and symptoms: Pertinent negatives: cough, fever, shortness of breath, vomiting. Patient reports left ear pain for the past 2 weeks with fullness and stating that she feels like there is fluid in her ear. Denies chest pain, shortness of breath, and dizziness.. Historical: - Allergies: 14:19 No Known Allergies; cm10 - PMHx: 14:19 CHF; Hypercholesterolemia; Hypertension; Hypertensive disorder; cm10 - PSHx: 14:19 Heart Stents; Splenectomy; cm10 - Immunization history:: Adult Immunizations unknown. - Social history:: Smoking status: Patient reports the use of cigarette tobacco products, denies chronic smoking, but will smoke occasionally. ROS: 14:19 Constitutional: Negative for fever, chills, and weight loss, Eyes: Negative for injury, jh7 pain, redness, and discharge, Neck: Negative for injury, pain, and swelling, Cardiovascular: Negative for chest pain, palpitations, and edema, Respiratory: Negative for shortness of breath, cough, wheezing, and pleuritic chest pain, Abdomen/GI: Negative for abdominal pain, nausea, vomiting, diarrhea, and constipation, Back: Negative for injury and pain, MS/Extremity: Negative for injury and deformity, Skin: Negative for injury, rash, and discoloration, Neuro: Negative for headache, weakness, numbness, tingling, and seizure, 14:19 ENT: Positive for ear pain, 14:19 All other systems are negative, Exam: 14:19 Constitutional: This is a well developed, well nourished patient who is awake, alert, jh7 and in no acute distress. Head/Face: Normocephalic, atraumatic. Neck: Trachea midline, no thyromegaly or masses palpated, and no cervical lymphadenopathy. Supple, full range of motion without nuchal rigidity, or vertebral point tenderness. No Meningismus. Cardiovascular: Regular rate and rhythm with a normal S1 and S2. No gallops, murmurs, or rubs. Normal PMI, no JVD. No pulse deficits. Respiratory: Lungs have equal breath sounds bilaterally, clear to auscultation and percussion. No rales, rhonchi or wheezes noted. No increased work of breathing, no retractions or nasal flaring. Abdomen/GI: Soft, non-tender, with normal bowel sounds. No distension or tympany. No guarding or rebound. No evidence of tenderness throughout. Skin: Warm, dry with normal turgor. Normal color with no rashes, no lesions, and no evidence of cellulitis. MS/ Extremity: Pulses equal, no cyanosis. Neurovascular intact. Full, normal range of motion. Neuro: Awake and alert, GCS 15, oriented to person, place, time, and situation. Motor strength 5/5 in all extremities. Sensory grossly intact. Normal gait. 14:19 ENT: External ear(s): are unremarkable, Ear canal(s): Small amount of cerumen, TM's: dullness, on the left, fluid levels, on the left, Vital Signs: 14:19 BP 128 / 86; Pulse 73; Resp 16; Temp 97.3; Pulse Ox 98% on R/A; Weight 58.97 kg; Height cm10 5 ft. 1 in. ; Pain 5/10; 14:19 Body Mass Index 24.56 (58.97 kg, 154.94 cm) cm10 14:19 Pain Scale: Adult cm10 MDM: 14:12 Patient medically screened. [facility] 14:37 Differential diagnosis: otitis media, otitis externa, ruptured TM, foreign body, acute [facility] otalgia, cerumen impaction. Data reviewed: vital signs, nurses notes. Counseling: I had a detailed discussion with the patient and/or guardian regarding the historical points, exam findings, and any diagnostic results supporting the discharge/admit diagnosis, to return to the emergency department if symptoms worsen or persist or if there are any questions or concerns that arise at home. Administered Medications: 14:45 Drug: Ketorolac IM 30 mg IM once Route: IM; Site: left deltoid; kc6 14:57 Follow up: Response: No adverse reaction kc6 Disposition Summary: 02/14/23 14:30 Discharge Ordered Notes: Location: Home [facility] Problem: new [facility] Symptoms: are unchanged [facility] Condition: Stable [facility] Diagnosis - Otalgia, left ear jh7 Followup: [facility] - With: Private Physician - When: 2 - 3 days - Reason: Recheck today's complaints Discharge Instructions: - Discharge Summary Sheet [facility] - Earache, Adult [facility] Forms: - Medication Reconciliation Form [facility] - Thank You Letter [facility] - Patient Portal Instructions [facility] - Leadership Thank You Letter [facility] Prescriptions: - Medrol (Grady) 4 mg Oral Tablets, Dose Pack - take 1 tablet ORAL route as directed - follow package instructions; 1 packet; [facility] Refills: 0, Product Selection Permitted Signatures: Verna Duatre, PRIMARY CARE MD PRIMARY CARE MD [email or web address] Dania Baker RN RN kc6 Yajaiar Givens RN RN cm10 Corrections: (The following items were deleted from the chart) 14:19 14:19 PMHx: diabetes mellitus; cm10 cm10 14:19 14:19 PSHx: Thyroidectomy; cm10 cm10
[2023-02-14] MEDS ORDERED: KETOROLAC 30 MG/ML INJ ONE (14:50)
[2023-02-14 15:46] VITALS: BP 128/86; TEMP 97.3; O2SAT 98
== END 2023-02-14 14:56 | disposition home or self-care (01) ==
LOC: ER 14:08
DX: H92.02 Otalgia, left ear (principal); F17.210 Nicotine dependence, cigarettes, uncomplicated; Z95.818 Presence of other cardiac implants and grafts
CPT/HCPCS: 96372; 99284

== ENCOUNTER 2023-03-16 11:17 | Emergency (ER) | payer OTHER ==
--- OUTSIDE RECORDS SUMMARY | 2023-03-16 11:24 | XMS REPORT | Continuity of Care Document ---
:1945 Author Organization [facility] Address [address] [facility] [address] [place] [address] Care Team Providers Name Role Phone Jeremi Alaniz Attending Clinician Unavailable Rohith Cruz Attending Clinician Unavailable Jose Marc Admitting Clinician Unavailable Payers Payer Name Policy Type Policy Number Effective Date Expiration Date S chanel MEDICARE [id number] 2011 [facility] NOVITAS 00:00:[address] [facility] MEDICARE MB [id number] 2011 [facility] NOVITAS 00:00:[address] [facility] MEDICARE MB [id number] 2011 [facility] NOVITAS 00:00:00 - [facility] MEDICARE PART A [id number] 2011 \T\ B 00:00:00 Problems Condition Condition Condition Status Onset Resolution Last Treating Co mments Source Name Details Category Date Date Treatment Clinician Date [id number] Stage 3a Problem Comm on chronic [facility] kidney - [facility] disease [facility] [id number] Macrocytic Problem Co mmon [facility] - [facility] [id number] 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 [id number] Hypercalce Problem Com mon em [facility] - [facility] [id number] Non-season Problem Com mon al [facility] allergic - [facility] [place] [facility] [id number] Constipati Problem Com mon on, Spirit unspecifie - CHI d St constipati [facility] on [facility] [id number] GERD Problem Common without [facility] esophagiti - CHI s [facility] [id number] Mixed Problem Common hyperlipid Spirit emia - [facility] [id number] Chronic Problem Commo n diastolic [facility] congestive - [facility]I heart failure [facility] [id number] Hypothyroi Problem Com mon dism, [facility] unspecifie - CHI d type [facility] [id number] Paroxysmal Problem Co mmon atrial [facility] fibrillati - [facility] on [facility] [id number] Essential Problem Comm on hypertensi [facility] on [facility] [id number] S/P Problem Common splenectom [facility] y - [facility] Standard Abnormal Problem Commo n chest chest [facility] X-ray x-ray - [facility] abnormal [facility] Allergies, Adverse Reactions, Alerts Allergy Allergy Status Severity Reaction(s) Onset Inactive Treating Comm ents Source Name Type Date Date Clinician No Known DA Active U 2020-0 [facility]04 [facility] 00:: [address] No Known DA Active U 2020-0 [facility] 05-04 [place] [facility] 00:00: [address] No Known DA Active U 2019-0 [facility] All[facility]ie 09-29 [place] [facility] 00:00: [address] No Known DA Active U 2019-0 [facility] All[facility]ie 09-29 [place] [facility] 00:: [address] No Known DA Active U 2009-0 [facility] [place] [facility] 00:00: [address] No Known DA Active U 2009-0 [facility] Drug 2- [place] Allergie 00:00: [address] No Known DA Active U 2009-0 [facility] Food 2- [place] Allergie 00:00: [address] No Known DA Active U 2009-0 [facility] Other [facility] [place] Allergie 00:00: [address] NO KNOWN Drug Active Univers ALLERGIE [facility] Social History Social Habit Start Date Stop Date Quantity Comments Source History of Tobacco Use Co mmon [facility] - [facility] Sex Assigned At Com [facility] Smoking Status Start Date Stop Date Source Former Smoker 2023-02-15 00:00:00 2023-02-15 00:00:00 Common [facility] Medications Ordered Filled Start Stop Current Ordering Indication Dosage Frequency Signature Comments Components Source Medication Medication Date Date Medication? Clinician (SIG) Name Name Losartan Losartan 2020-04 No 1{table QD Losartan Potassium Potassium 2-13 t} Potassium 50 MG 50 MG 00:00: 50 MG 00 Clopidogrel Clopidogrel No Clopidogre Bisulfate Bisulfate l [...] Euthyrox MCG MCG 88 MCG Losartan Losartan Yes Jeremi 1 tablet C ommon Potassium-H Potassium-H Alaniz [facility] CTZ [facility] Polyethylen Polyethylen Yes Jeremi not Common e Glycol e Glycol Alaniz defined [facility] MiraLax MiraLax Yes Jeremi not Common Alaniz defined [facility] Atorvastati Atorvastati Yes Jeremi 1 tablet Common n Calcium n Calcium Alaniz Spir it [facility] Aspirin 81 Aspirin 81 Yes Jeremi 1 tablet Common Alaniz [facility] Pantoprazol Pantoprazol Yes Jeremi 1 tablet Common e Sodium e Sodium Alaniz [facility] Sodium Sodium Yes Jeremi not Common Chloride Chloride Alaniz defined [facility] Potassium Potassium Yes Jeremi TAKE 1 C ommon Chloride Chloride Alaniz TABLET BY S pirit Li ER Li ER MOUTH ONCE - C HI DAILY [facility] Metoprolol Metoprolol Yes Jeremi TAKE 1 Common Tartrate Tartrate Alaniz TABLET BY S pirit MOUTH ONCE - CHI DAILY WITH St FOOD FOR [facility] 90 DAYS [facility] Levothyroxi Levothyroxi Yes Jeremi 1 tablet Common ne Sodium ne Sodium Alaniz in the Sp pawan morning on - CHI an empty [facility] Metoprolol Metoprolol Yes Jeremi 1 tablet Common Tartrate Tartrate Alaniz with food S pirit - [facility] Clopidogrel Clopidogrel Yes Jeremi 1 tablet Common Bisulfate Bisulfate Alaniz [facility] it [facility] Docusate Docusate Yes Jeremi 1 capsule Common Sodium Sodium Alaniz as needed [facility] Potassium Potassium Yes Jeremi 1 packet Common Chloride Chloride Alaniz with food [facility] penicillin penicillin Yes Jeremi not C ommon Alaniz defined [facility] Atorvastati Atorvastati No 1{table QD Atorvastat [...] MCG 100 MCG MiraLax MiraLax No MiraLax Aspirin 81 Aspirin 81 No 1{table QD Aspirin 81 81 MG 81 MG t} 81 MG Atorvastati Atorvastati No 1{table QD Atorvastat n Calcium n Calcium t} in Calcium 40 MG 40 MG 40 MG Docusate Docusate No 1{capsu BID Docusate Sodium 100 Sodium 100 le_as_n Sodium 100 MG MG eeded} MG Metoprolol Metoprolol No 1{table QD Metoprolol Tartrate 50 Tartrate 50 t_with_ Tartrate MG MG food} 50 MG Sodium Sodium No Sodium Chloride Chloride Chloride Losartan Losartan No 1{table QD Losartan Potassium Potassium t} Potassium 25 MG 25 MG 25 MG Polyethylen Polyethylen No Polyethyle e Glycol e Glycol ne Glycol Atorvastati Atorvastati No Atorvastat n Calcium n Calcium in Calcium 40 MG 40 MG 40 MG Clopidogrel Clopidogrel No 1{table QD Clopidogre Bisulfate Bisulfate t} l 75 MG 75 MG Bisulfate 75 MG MiraLax MiraLax No MiraLax Potassium Potassium No 1{packe QD Potassium Chloride 20 Chloride 20 t_with_ Chloride MEQ MEQ food} 20 MEQ amLODIPine amLODIPine No 1{table QD amLODIPine Besylate 5 Besylate 5 t} Besylate 5 MG MG MG methylPREDN methylPREDN No methylPRED ISolone 4 ISolone 4 NISolone 4 MG MG MG Levothyroxi Levothyroxi No QD Levothyrox ne Sodium ne Sodium ine Sodium 100 MCG 100 MCG 100 MCG Metoprolol Metoprolol No Metoprolol Tartrate 50 Tartrate 50 Tartrate MG MG 50 MG Pantoprazol Pantoprazol No 1{table QD Pantoprazo e Sodium 40 e Sodium 40 t} le Sodium MG MG 40 MG Klor-Con Klor-Con No Klor-Con M20 20 MEQ M20 20 MEQ M20 20 MEQ Aspirin 81 Aspirin 81 No 1{table QD Aspirin 81 81 MG 81 MG t} 81 MG Atorvastati Atorvastati No 1{table QD Atorvastat n Calcium n Calcium t} in Calcium 40 MG 40 MG 40 MG Docusate Docusate No 1{capsu BID Docusate Sodium 100 Sodium 100 le_as_n Sodium 100 MG MG eeded} MG Metoprolol Metoprolol No 1{table QD Metoprolol Tartrate 50 Tartrate 50 t_with_ Tartrate MG MG food} 50 MG Sodium Sodium No Sodium Chloride Chloride Chloride Losartan Losartan No 1{table QD Losartan Potassium Potassium t} Potassium 25 MG 25 MG 25 MG Polyethylen Polyethylen No Polyethyle e Glycol e Glycol ne Glycol Atorvastati Atorvastati No Atorvastat n Calcium n Calcium in Calcium 40 MG 40 MG 40 MG Clopidogrel Clopidogrel No 1{table QD Clopidogre Bisulfate Bisulfate t} l 75 MG 75 MG Bisulfate 75 MG MiraLax MiraLax No MiraLax Potassium Potassium No 1{packe QD Potassium Chloride 20 Chloride 20 t_with_ Chloride MEQ MEQ food} 20 MEQ amLODIPine amLODIPine No 1{table QD amLODIPine Besylate 5 Besylate 5 t} Besylate 5 MG MG MG methylPREDN methylPREDN No methylPRED ISolone 4 ISolone 4 NISolone 4 MG MG MG Levothyroxi Levothyroxi No QD Levothyrox ne Sodium ne Sodium ine Sodium 100 MCG 100 MCG 100 MCG Potassium Potassium No Potassium Chloride Chloride Chloride Li ER 20 Li ER 20 Li ER 20 MEQ MEQ MEQ Metoprolol Metoprolol No Metoprolol Tartrate 50 Tartrate 50 Tartrate MG MG 50 MG Pantoprazol Pantoprazol No 1{table QD Pantoprazo e Sodium 40 e Sodium 40 t} le Sodium MG MG 40 MG Klor-Con Klor-Con No Klor-Con M20 20 MEQ M20 20 MEQ M20 20 MEQ Euthyrox Euthyrox No Euthyrox 100 MCG [...] Potassium 50 MG 50 MG 50 MG Immunizations Ordered Filled Immunization Date Status Comments Sourc e Immunization Name Name Fluzone Fluzone 2021-03-27 Completed [facility] 10:30:00 [facility] Fluzone Fluzone 2021-03-27 Completed [facility] 10:30:00 [facility] Fluzone Fluzone 2021-03-27 Completed [facility] 10:30:00 - [facility] Fluzone Fluzone 2021-03-27 Completed [facility] 10:30:00 - [facility] Fluzone Fluzone 2021-03-27 Completed [facility] 10:30:00 - [facility] Fluzone Fluzone 2021-03-27 Completed [facility] 10:30:00 - [facility] Fluzone Fluzone 2021-03-27 Completed [facility] 10:30:00 - [facility] Fluzone Fluzone 2021-03-27 Completed [facility] 10:30:00 - [facility] Fluzone Fluzone 2021-03-27 Completed [facility] 10:30:00 - [facility] Fluzone Fluzone 2021-03-27 Completed [facility] 10:30:00 - [facility] Pneumovax (PPSV23) Pneumovax (PPSV23) 2021-03-27 Completed [facility] 10:29:00 - [facility] Pneumovax (PPSV23) Pneumovax (PPSV23) 2021-03-27 Completed [facility] 10:29:00 - [facility] Pneumovax (PPSV23) Pneumovax (PPSV23) 2021-03-27 Completed [facility] 10:29:00 - [facility] Pneumovax (PPSV23) Pneumovax (PPSV23) 2021-03-27 Completed [facility] 10:29:00 [facility] Pneumovax (PPSV23) Pneumovax (PPSV23) 2021-03-27 Completed [facility] 10:29:00 [facility] Pneumovax (PPSV23) Pneumovax (PPSV23) 2021-03-27 Completed [facility] 10:29:00 [facility] Pneumovax (PPSV23) Pneumovax (PPSV23) 2021-03-27 Completed [facility] 10:29:00 [facility] Pneumovax (PPSV23) Pneumovax (PPSV23) 2021-03-27 Completed [facility] 10:29:00 [facility] Pneumovax (PPSV23) Pneumovax (PPSV23) 2021-03-27 Completed [facility] 10:29:00 [facility] Pneumovax (PPSV23) Pneumovax (PPSV23) 2021-03-27 Completed [facility] 10:29:00 [facility] FluAD FluAD 2019-11-27 Completed [facility] 08:58:00 [facility] FluAD FluAD 2019-11-27 Completed [facility] 08:58:00 [facility] FluAD FluAD 2019-11-27 Completed [facility] 08:58:00 [facility] FluAD FluAD 2019-11-27 Completed [facility] 08[facility]58:00 [facility] FluAD FluAD 2019-11-27 Completed [facility] 08:58:00 [facility] FluAD FluAD 2019-11-27 Completed [facility] 08:58:00 - [facility] FluAD FluAD 2019-11-27 Completed [facility] 08:58:00 [facility] FluAD FluAD 2019-11-27 Completed [facility] 08:58:00 [facility] FluAD FluAD 2019-11-27 Completed [facility] 08:58:00 [facility] FluAD FluAD 2019-11-27 Completed [facility] 08:58:00 [facility] FluAD FluAD 2019-11-27 Completed [facility] 08:58:00 [facility] FluAD FluAD 2019-11-27 Completed [facility] 08:58:00 [facility] FluAD FluAD 2019-11-27 Completed [facility] 08:58:00 [facility] FluAD FluAD Unknown Completed [facility] Fluzone Fluzone Unknown Completed [facility] Pneumovax (PPSV23) Pneumovax (PPSV23) Unknown Completed [facility] COVID-19 Vaccine COVID-19 Vaccine Unknown Completed Co [facility] ([employer]) ([employer]) [facility] FluAD FluAD Unknown Completed [facility] Fluzone Fluzone Unknown Completed [facility] Pneumovax (PPSV23) Pneumovax (PPSV23) Unknown Completed [facility] Influenza Influenza Unknown Completed [facility] COVID-19 Vaccine COVID-19 Vaccine Unknown Completed [facility] ([place] ([place]) [facility] FluAD FluAD Unknown Completed [facility] Fluzone Fluzone Unknown Completed [facility] Pneumovax (PPSV23) Pneumovax (PPSV23) Unknown Completed [facility] Influenza Influenza Unknown Completed [facility] Vital Signs Vital Name Observation Time Observation Value Comments Source height 2022-09-18 10:10:00 60 [in_i] [facility] weight 2022-09-18 10:10:00 112 [lb_av] [facility] temperature 2022-09-18 10:10:00 97.6 [degF] [facility] bmi 2022-09-18 10:10:00 21.87 kg/m2 [facility] oximetry 2022-09-18 10:10:00 99 % [facility] respiratory rate 2022-09-18 10:10:00 16 /min Comm on [facility] blood pressure 2022-09-18 10:10:00 110 mm[Hg] [facility] systolic [facility] blood pressure 2022-09-18 10:10:00 77 mm[Hg] [facility] diastolic [facility] height 2022-09-18 10:10:00 60 [in_i] [facility] weight 2022-09-18 10:10:00 112 [lb_av] [facility] temperature 2022-09-18 10:10:00 97.6 [degF] [facility] bmi 2022-09-18 10:10:00 21.87 kg/m2 Common [facility] oximetry 2022-09-18 10:10:00 99 % [facility] respiratory rate 2022-09-18 10:10:00 16 /min Comm on [facility] blood pressure 2022-09-18 10:10:00 110 mm[Hg] Common [facility] - systolic [facility] blood pressure 2022-09-18 10:10:00 77 mm[Hg] Common [facility] - diastolic [facility] height 2022-06-25 10:30:00 60 [in_i] Common [facility] weight 2022-06-25 10:30:00 115 [lb_av] [facility] temperature 2022-06-25 10:30:00 96.4 [degF] [facility] bmi 2022-06-25 10:30:00 22.46 kg/m2 [facility] oximetry 2022-06-25 10:30:00 95 % [facility] respiratory rate 2022-06-25 10:30:00 17 /min Comm on [facility] blood pressure 2022-06-25 10:30:00 126 mm[Hg] [facility] - systolic [facility] blood pressure 2022-06-25 10:30:00 65 mm[Hg] Common [facility] - diastolic [facility] height 2021-12-26 10:10:00 60 [in_i] Common [facility] weight 2021-12-26 10:10:00 119 [lb_av] [facility] temperature 2021-12-26 10:10:00 97.5 [degF] [facility] bmi 2021-12-26 10:10:00 23.24 kg/m2 [facility] oximetry 2021-12-26 10:10:00 90 % [facility] respiratory rate 2021-12-26 10:10:00 16 /min Comm on [facility] blood pressure 2021-12-26 10:10:00 111 mm[Hg] Common [facility] - systolic [facility] blood pressure 2021-12-26 10:10:00 71 mm[Hg] Common [facility] - diastolic [facility] height 2021-09-19 14:30:00 61 [in_i] Common [facility] weight 2021-09-19 14:30:00 125.6 [lb_av] Common [facility] temperature 2021-09-19 14:30:00 97.3 [degF] Common [facility] bmi 2021-09-19 14:30:00 23.73 kg/m2 [facility] oximetry 2021-09-19 14:30:00 96 % Common [facility] respiratory rate 2021-09-19 14:30:00 17 /min Comm on [facility] blood pressure 2021-09-19 14:30:00 117 mm[Hg] Common [facility] - systolic [facility] blood pressure 2021-09-19 14:30:00 81 mm[Hg] Common [facility] - diastolic [facility] height 2021-09-19 14:30:00 61 [in_i] Common [facility] weight 2021-09-19 14:30:00 125.6 [lb_av] Common [facility] temperature 2021-09-19 14:30:00 97.3 [degF] Common [facility] bmi 2021-09-19 14:30:00 23.73 kg/m2 Common [facility] oximetry 2021-09-19 14:30:00 96 % Common [facility] respiratory rate 2021-09-19 14:30:00 17 /min Comm on [facility] blood pressure 2021-09-19 14:30:00 117 mm[Hg] Common [facility] - systolic [facility] blood pressure 2021-09-19 14:30:00 81 mm[Hg] Common [facility] - diastolic [facility] height 2021-06-26 09:50:00 61 [in_i] Common [facility] weight 2021-06-26 09:50:00 134.9 [lb_av] [facility] temperature 2021-06-26 09:50:00 97.0 [degF] Common S pirit [facility] bmi 2021-06-26 09:50:00 25.49 kg/m2 Common [facility] oximetry 2021-06-26 09:50:00 93 % [facility] respiratory rate 2021-06-26 09:50:00 17 /min Comm on [facility] blood pressure 2021-06-26 09:50:00 132 mm[Hg] Common [facility] - systolic [facility] blood pressure 2021-06-26 09:50:00 65 mm[Hg] Common [facility] - diastolic [facility] height 2021-03-27 10:00:00 61 [in_i] Common [facility] weight 2021-03-27 10:00:00 136.3 [lb_av] [facility] temperature 2021-03-27 10:00:00 97.3 [degF] [facility] bmi 2021-03-27 10:00:00 25.75 kg/m2 [facility] oximetry 2021-03-27 10:00:00 93 % [facility] respiratory rate 2021-03-27 10:00:00 17 /min Comm on [facility] blood pressure 2021-03-27 10:00:00 114 mm[Hg] Common [facility] - systolic [facility] blood pressure 2021-03-27 10:00:00 78 mm[Hg] [facility] diastolic [facility] Procedures Procedure Date / Time Performed Performing Clinician Stefani stark [id number] 2019-05-05 00:00:00 M[facility]RO [facility] [id number] 2019-05-05 00:00:00 [facility] Encounters Start End Encounter Admission Attending Care Care Encounter Source Date/Time Date/Time Type Type Clinicians Facility Department ID 2023-02-19 Outpatient Alaniz, STLMLC STLMLC [id number] Common 10:08:00 Jeremi [id number] [facility] 2021-09-13 Outpatient Alaniz, STLMLC STLMLC [id number] Common 10:23:02 Jeremi [id number] [facility] 2021-05-10 Outpatient Alaniz, STLMLC STLMLC [id number] Common 14:23:26 Jeremi [id number] [facility] 2021-05-10 Outpatient Alaniz, STLMLC STLMLC [id number] Common 14:18:25 Jeremi [id number] [facility] 2021-05-10 Outpatient Alaniz, STLMLC STLMLC [id number] Common 12:07:25 Jeremi [id number] [facility] 2021-05-10 Outpatient Alaniz, STLMLC STLMLC [id number] Common 11:22:27 Jeremi [id number] [facility] 2021-05-10 Outpatient STLMLC STLMLC [id number] Common 11:15:02 [id number] [facility] 2019-05-05 Inpatient YAKOV KhanWU SURG [id number] [facility] 10:30:00 Rohith [id number] [facility] 2022-09-18 2022-09-18 OFFICE STLMLC STLMLC [id number] Co mmon 00:00:00 00:00:00 VISIT [facility] ESTAB PT - CHI LEVEL 4 [facility] 2022-09-18 2022-09-18 SUB ANNUAL STLMLC STLMLC [id number] Common 00:00:00 00:00:00 MCR [facility] WELLNESS - CHI VISIT [facility] 2022-06-25 2022-06-25 OFFICE STLMLC STLMLC [id number] Co mmon 00:00:00 00:00:00 VISIT [facility] ESTAB PT - CHI LEVEL 4 [facility] 2022-03-14 2022-03-14 (TEL) STLMLC STLMLC [id number] Co mmon 00:00:00 00:00:00 [facility] 2022-01-22 2022-01-22 (TEL) STLMLC STLMLC [id number] Co mmon 00:00:00 00:00:00 [facility] 2021-12-26 2021-12-26 OFFICE STLMLC STLMLC [id number] Co mmon 00:00:00 00:00:00 VISIT [facility] ESTAB PT - CHI LEVEL 4 [facility] 2021-09-19 2021-09-19 OFFICE STLMLC STLMLC [id number] Co mmon 00:00:00 00:00:00 VISIT [facility] PT - CHI LEVEL 4 [facility] 2021-09-19 2021-09-19 SUB ANNUAL STLMLC STLMLC [id number] Common 00:00:00 00:00:00 MCR [facility] WELLNESS - CHI VISIT [facility] 2021-09-19 2021-09-19 (TEL) STLMLC STLMLC [id number] Co mmon 00:00:00 00:00:00 [facility] 2021-08-29 2021-08-29 (TEL) STLMLC STLMLC [id number] Co mmon 00:00:00 00:00:00 [facility] 2021-06-26 2021-06-26 OFFICE STLMLC STLMLC [id number] Co mmon 00:00:00 00:00:00 VISIT [facility] ESTAB PT - CHI LEVEL 4 [facility] 2021-03-27 2021-03-27 OFFICE STLMLC STLMLC [id number] Co mmon 00:00:00 00:00:00 VISIT [facility] ESTAB PT - CHI LEVEL 4 [facility] 2021-03-13 2021-03-13 (TEL) STLMLC STLMLC [id number] Co mmon 00:00:00 00:00:00 [facility] 2021-03-06 2021-03-06 (TEL) STLMLC STLMLC [id number] Co mmon 00:00:00 00:00:00 [facility] 2021-02-10 2021-02-10 (TEL) STLMLC STLMLC [id number] Co mmon 00:00:00 00:00:00 [facility] 2020-12-23 2020-12-23 Outpatient STLMLC STLMLC [id number] Common 00:00:00 00:00:00 [facility] 2020-11-24 2020-11-24 Outpatient STLMLC STLMLC [id number] Common 00:00:00 00:00:00 [facility] 2020-09-29 2020-09-29 Outpatient STLMLC STLMLC [id number] Common 00:00:00 00:00:00 [facility] 2020-09-27 2020-09-27 Outpatient STLMLC STLMLC [id number] Common 00:00:00 00:00:00 [facility] 2020-09-26 2020-09-26 Outpatient STLMLC STLMLC [id number] Common 00:00:00 00:00:00 [facility] 2020-09-26 2020-09-26 Outpatient STLMLC STLMLC [id number] Common 00:00:00 00:00:00 [facility] 2020-09-19 2020-09-19 Outpatient STLMLC STLMLC [id number] Common 00:00:00 00:00:00 [facility] 2020-07-02 2020-07-02 Outpatient [facility] [id number] Univers 11:05:00 11:05:00 [facility] 2020-06-11 2020-06-11 Outpatient [facility] [id number] Univers 11:30:00 11:30:00 [facility] 2020-04-05 2020-04-05 Outpatient STLMLC STLMLC [id number] Common 00:00:00 00:00:00 [facility] 2020-03-08 2020-03-08 Outpatient STLMLC STLMLC [id number] Common 00:00:00 00:00:00 [facility] 2020-03-08 2020-03-08 Outpatient STLMLC STLMLC [id number] Common 00:00:00 00:00:00 [facility] 2019-12-03 2019-12-03 [facility] [id number] Common 09:15:00 09:15:[address] [facility] 2019-11-19 2019-11-19 [facility] [id number] Common 15:09:00 15:09:[address] [facility] 2019-09-03 2019-09-03 [facility] [id number] Common 11:00:00 11:00:[address] [facility] 2019-09-03 2019-09-03 [facility] [id number] Common 10:45:00 10:45:[address] [facility] 2019-07-23 2019-07-23 [facility] 30 [id number] Common 09:24:00 09:24:[address] [facility] 2019-07-11 2019-07-11 [facility] 30 [id number] Common 13:05:00 13:05:[address] [facility] 2019-06-30 2019-06-30 [facility] [id number] Common 14:15:00 14:15:[address] [facility] Results Test Description Test Time Test Comments Results Result Comments Source CALCIUM, IONIZED 2023-02-12 00:00:00 Test Item Value Reference Range Interpretation Comme nts CALCIUM, IONIZED (test 5.35 MG/DL See_Comment [Aut omated message] The system code = 62706-6) which genera jus this result transmitted ref erence range: 4.70-5.90 MG/DL . The reference range was not u sed to interpret this result as normal/abnormal. TSH REFLEX TO FREE [id number] 00:00:00 Test Item Value Reference Range Interpretation Comments TSH REFLEX TO FREE 2.580 UIU/ML See_Comment [Automat ed message] T4 (test code = The system w [facility] [place] [address]-0) generated this result transmitted ref erence range: 0.400-4. 100 UIU/ML. The ref erence range was not u sed to interpret this result as normal/abnor mal. VITAMIN D, 25 [id number] 00:00:00 Test Item Value Reference Range Interpretation Comments VITAMIN D, 25 OH (test code = 50 NG/ML SEE BELOW NG/ML 1988-06) LIPID PANEL WITH REFLEX DIRECT [id number] 00:00:00 Test Item Value Reference Range Interpretation Comments CALC LDL CHOL (test 59 MG/DL See_Comment [Automa jus message] code = 59112-2) The system [employer] [facility] [place] generated this result transmit jus reference range : <100 MG/DL. The reference range was not used to interpret this result as normal/abnormal . CHOLESTEROL (test code 145 MG/DL See_Comment [Aut omated message] = 2093-3) The system [facility] generated this result transmit jus reference range : <200 MG/DL. The reference range was not used to interpret this result as normal/abnormal . HDL CHOLESTEROL (test 68 MG/DL See_Comment [Auto mated message] code = 2085-9) The system [employer] generated this result transmit jus reference range : >39 MG/DL. The refe rence range was not u sed to interpret th is result as normal/abnormal . RISK RATIO LDL/HDL 0.87 RATIO See_Comment [Automat ed message] (test code = 65725-2) The sy stem which generated this result transmit jus reference range : <3.22 RATIO. Th e reference range was not used to interpret this result as normal/abnormal . TRIGLYCERIDES (test 92 MG/DL See_Comment [Automa jus message] code = 2571-8) The system [facility] generated this result transmit jus reference range : <150 MG/DL. The reference range was not used to interpret this result as normal/abnormal . PATHOLOGIST SMEAR [id number] 00:00:00 Test Item Value Reference Range Interpretation Comments BASOPHILS (test code 0.0 % = 92659-6) DIAGNOSIS: (test (NOTE) code = 00374-9) COMMENTS (test code (NOTE) = 59956-7) EOSINOPHILS (test 3.3 % code = 74797-9) HEMATOCRIT (test 42.7 % See_Comment [Automated message] code = 42648-2) The system [employer] generated this result transmit jus reference range : 34.0-45.0 %. Th e reference range was not used to interpret this result as normal/abnormal . HEMOGLOBIN (test 14.1 G/DL See_Comment [Automated message] code = 718-7) The system [employer] generated this result transmit jus reference range : 11.5-15.5 G/DL. The reference range was not used to interpret this result as normal/abnormal . LYMPHOCYTES (test 20.8 % code = 20451-0) MCH (test code = 33.9 PG See_Comment H [Automated message] 32788-5) The system [employer] generated this result transmit jus reference range : 25.0-33.0 PG. T he reference range was not used to interpret this result as normal/abnormal . MCHC (test code = 33.0 G/DL See_Comment [Automate d message] 92717-3) The system [employer] generated this result transmit jus reference range : 31.0-36.0 G/DL. The reference range was not used to interpret this result as normal/abnormal . MCV (test code = 102.6 fL See_Comment H [Automated message] 62197-0) The system [employer] generated this result transmit jus reference range : 80.0-99.0 fL. T he reference range was not used to interpret this result as normal/abnormal . MICROSCOPIC (NOTE) DESCRIPTION: (test code = 34468-5) MONOCYTES (test code 13.3 % = 86016-2) NEUTROPHILS (test 62.6 % code = 01373-2) NUCLEATED RBCS (test 0.8 /100 WBC'S See_Comment H [Aut omated message] code = 61697-2) The system [employer] generated this result transmit jus reference range : 0.0 /100 WBC'S. The reference range was not used to interpret this result as normal/abnormal . PATHOLOGIST: (test (NOTE) code = 84563-9) PLATELET COUNT (test 316 K/UL See_Comment [Autom ated message] code = 75265-9) The system [employer] generated this result transmit jus reference range : 130-400 K/UL. T he reference range was not used to interpret this result as normal/abnormal . RBC (test code = 4.16 M/UL See_Comment [Automated message] 52420-5) The system [employer] generated this result transmit jus reference range : 3.80-5.40 M/UL. The reference range was not used to interpret this result as normal/abnormal . RDW (test code = 12.8 % See_Comment [Automated message] 53036-3) The system [employer] generated this result transmit jus reference range : 11.5-15.0 %. Th e reference range was not used to interpret this result as normal/abnormal . WBC (test code = 4.3 K/UL See_Comment [Automated message] 26645-9) The system [employer] generated this result transmit jus reference range : 3.5-11.0 K/UL. The reference range was not used to interpret this result as normal/abnormal . COMPREHENSIVE METABOLIC [id number] 00:00:00 Test Item Value Reference Range Interpretation Comments ALBUMIN (test code = 4.2 G/DL See_Comment [Autom ated message] 1751-7) The system [employer] generated this result transmit jus reference range : 3.5-5.2 G/DL. T he reference range was not used to interpret this result as normal/abnormal . ALKALINE PHOSPHATASE 84 U/L See_Comment [Autom ated message] (test code = 6768-6) The sys tem which generated this result transmit jus reference range : 40-142 U/L. The reference range was not used to interpret this result as normal/abnormal . BILIRUBIN, TOTAL 0.3 MG/DL See_Comment [Automated message] (test code = 1975-2) The sys tem which generated this result transmit jus reference range : <=1.2 MG/DL. Th e reference range was not used to interpret this result as normal/abnormal . BUN (test code = 20 MG/DL See_Comment [Automated message] 3094-0) The system [employer] generated this result transmit jus reference range : 8-23 MG/DL. The reference range was not used to interpret this result as normal/abnormal . CALCIUM (test code = 10.0 MG/DL See_Comment [Autom ated message] 49408-9) The system [employer] generated this result transmit jus reference range : 8.5-10.5 MG/DL. The reference range was not used to interpret this result as normal/abnormal . CALC A/G RATIO (test 1.2 RATIO See_Comment [Autom ated message] code = 1759-0) The system [facility] generated this result transmit jus reference range : 1.0-2.6 RATIO. The reference range was not used to interpret this result as normal/abnormal . CALC BUN/CREAT (test 21 RATIO See_Comment [Autom ated message] code = 3097-3) The system [facility] generated this result transmit jus reference range : 6-28 RATIO. The reference range was not used to interpret this result as normal/abnormal . CALC GLOBULIN (test 3.6 G/DL See_Comment [Automa jus message] code = 94026-0) The system [facility] generated this result transmit jus reference range : 1.9-3.7 G/DL. T he reference range was not used to interpret this result as normal/abnormal . CARBON DIOXIDE (test 28 MEQ/L See_Comment [Autom ated message] code = 1963-8) The system [facility] generated this result transmit jus reference range : 19-31 MEQ/L. Th e reference range was not used to interpret this result as normal/abnormal . CHLORIDE (test code 98 MEQ/L See_Comment [Automa jus message] = 2074-0) The system [facility] generated this result transmit jus reference range : 95-107 MEQ/L. T he reference range was not used to interpret this result as normal/abnormal . CREATININE (test 0.96 MG/DL See_Comment [Automated message] code = 2160-0) The system [facility] generated this result transmit jus reference range : 0.60-1.30 MG/DL . The reference range was not used to interpret this result as normal/abnormal . eGFR (2020 CKD-EPI) 61 ML/MIN/1.73 See_Comment [Auto mated message] (test code = The system [facility] 25660-3) generated this result transmit jus reference range : >60 ML/MIN/1.73. Th e reference range was not used to interpret this result as normal/abnormal . GLUCOSE (test code = 86 MG/DL See_Comment [Autom ated message] 1558-6) The system [facility] generated this result transmit jus reference range : 70-99 MG/DL. Th e reference range was not used to interpret this result as normal/abnormal . POTASSIUM (test code 4.1 MEQ/L See_Comment [Autom ated message] = 4023-3) The system [facility] generated this result transmit jus reference range : 3.5-5.4 MEQ/L. The reference range was not used to interpret this result as normal/abnormal . PROTEIN, TOTAL (test 7.8 G/DL See_Comment [Autom ated message] code = 2885-2) The system [facility] generated this result transmit jus reference range : 6.1-8.3 G/DL. T he reference range was not used to interpret this result as normal/abnormal . AST (test code = 25 U/L See_Comment [Automated message] 1920-8) The system [facility] generated this result transmit jus reference range : 9-40 U/L. The reference range was not used to interpret this result as normal/abnormal . ALT (test code = 18 U/L See_Comment [Automated message] 1742-6) The system [facility] generated this result transmit jus reference range : 5-40 U/L. The reference range was not used to interpret this result as normal/abnormal . SODIUM (test code = 139 MEQ/L See_Comment [Automa jus message] 9011-2) The system [facility] generated this result transmit jus reference range : 133-146 MEQ/L. The reference range was not used to interpret this result as normal/abnormal . [id number] 00:00:00 Test Item Value Reference Range Interpretation Comments FERRITIN (test code = 53 NG/ML See_Comment [Auto mated message] The 72390-4) system which ge nerated this result tra nsmitted reference range : 13-200 NG/ML. The refe rence range was not u sed to interpret this result as normal/abnormal . HEMOGLOBIN [id number] 00:00:00 Test Item Value Reference Range Interpretation Comments HEMOGLOBIN A1c (test 5.8 % See_Comment H [Autom ated message] The code = 4548-4) system which generated this result tra nsmitted reference range : 4.2-5.6 %. The referenc e range was not used to interpret this result as normal/abnormal . TSH REFLEX TO FREE [id number] 00:00:00 Test Item Value Reference Range Interpretation Comments TSH REFLEX TO FREE 1.810 UIU/ML See_Comment [Automat ed message] T4 (test code = The system [facility] 606[address]-0) generated this result transmitted ref erence range: 0.400-4. 100 UIU/ML. The ref erence range was not u sed to interpret this result as normal/abnor mal. LIPID PANEL WITH REFLEX DIRECT [id number] 00:00:00 Test Item Value Reference Range Interpretation Comments CALC LDL CHOL (test 66 MG/DL See_Comment [Automa jus message] code = 97014-7) The system [facility] generated this result transmit jus reference range : <100 MG/DL. The reference range was not used to interpret this result as normal/abnormal . CHOLESTEROL (test code 157 MG/DL See_Comment [Aut omated message] = 2093-3) The system [facility] generated this result transmit jus reference range : <200 MG/DL. The reference range was not used to interpret this result as normal/abnormal . HDL CHOLESTEROL (test 75 MG/DL See_Comment [Auto mated message] code = 2085-9) The system [facility] generated this result transmit jus reference range : >39 MG/DL. The refe rence range was not u sed to interpret th is result as normal/abnormal . RISK RATIO LDL/HDL 0.88 RATIO See_Comment [Automat ed message] (test code = 00904-1) The sy stem which generated this result transmit jus reference range : <3.22 RATIO. Th e reference range was not used to interpret this result as normal/abnormal . TRIGLYCERIDES (test 80 MG/DL See_Comment [Automa jus message] code = 2571-8) The system [facility] generated this result transmit jus reference range : <150 MG/DL. The reference range was not used to interpret this result as normal/abnormal . PATHOLOGIST SMEAR [id number] 00:00:00 Test Item Value Reference Range Interpretation Comments BASOPHILS (test code 0.8 % = 72521-9) DIAGNOSIS: (test (NOTE) code = 02322-7) COMMENTS (test code (NOTE) = 40392-6) EOSINOPHILS (test 1.9 % code = 55880-7) HEMATOCRIT (test 38.2 % See_Comment [Automated message] code = 85125-7) The system [facility] generated this result transmit jus reference range : 34.0-45.0 %. Th e reference range was not used to interpret this result as normal/abnormal . HEMOGLOBIN (test 12.4 G/DL See_Comment [Automated message] code = 718-7) The system [facility] generated this result transmit jus reference range : 11.5-15.5 G/DL. The reference range was not used to interpret this result as normal/abnormal . LYMPHOCYTES (test 15.3 % code = 83194-9) MCH (test code = 32.6 PG See_Comment [Automated message] 54185-7) The system [employer] generated this result transmit jus reference range : 25.0-33.0 PG. T he reference range was not used to interpret this result as normal/abnormal . MCHC (test code = 32.5 G/DL See_Comment [Automate d message] 96844-3) The system [employer] generated this result transmit jus reference range : 31.0-36.0 G/DL. The reference range was not used to interpret this result as normal/abnormal . MCV (test code = 100.5 fL See_Comment H [Automated message] 58314-9) The system [employer] generated this result transmit jus reference range : 80.0-99.0 fL. T he reference range was not used to interpret this result as normal/abnormal . MICROSCOPIC (NOTE) DESCRIPTION: (test code = 28945-7) MONOCYTES (test code 12.9 % = 86505-1) NEUTROPHILS (test 68.9 % code = 73281-2) NUCLEATED RBCS (test 0.0 /100 WBC'S See_Comment [Aut omated message] code = 36063-1) The system [employer] generated this result transmit jus reference range : 0.0 /100 WBC'S. The reference range was not used to interpret this result as normal/abnormal . PATHOLOGIST: (test (NOTE) code = 49019-2) PLATELET COUNT (test 263 K/UL See_Comment [Autom ated message] code = 06982-7) The system [employer] generated this result transmit jus reference range : 130-400 K/UL. T he reference range was not used to interpret this result as normal/abnormal . RBC (test code = 3.80 M/UL See_Comment [Automated message] 66614-6) The system [facility] generated this result transmit jus reference range : 3.80-5.40 M/UL. The reference range was not used to interpret this result as normal/abnormal . RDW (test code = 15.3 % See_Comment H [Automated message] 87738-2) The system [facility] generated this result transmit jus reference range : 11.5-15.0 %. Th e reference range was not used to interpret this result as normal/abnormal . WBC (test code = 4.7 K/UL See_Comment [Automated message] 10745-2) The system [facility] generated this result transmit jus reference range : 3.5-11.0 K/UL. The reference range was not used to interpret this result as normal/abnormal . IRON BINDING CAPACITY AND IRON AND % [id number] 00:00:00 Test Item Value Reference Range Interpretation Comments CALC % IRON SAT (test 31 % See_Comment [Auto mated message] code = 2502-3) The system [facility] generated this result transmitted ref erence range: 20-50 %. The reference range was not used to int erpret this result as normal/abnormal . CALC TOTAL IBC (test 314 UG/DL See_Comment [Autom ated message] code = 66942-0) The system [facility] generated this result transmitted ref erence range: 250-450 UG/DL. The reference r mae was not used to interpret this result as normal/abnor mal. IRON, SERUM (test code 97 UG/DL See_Comment [Aut omated message] = 2498-4) The system [facility] generated this result transmitted ref erence range: 37-145 U G/DL. The reference r mae was not used to interpret this result as normal/abnor mal. UNSATURATED IBC (test 217 UG/DL See_Comment [Auto mated message] code = 2501-5) The system [facility] generated this result transmitted ref erence range: 112-347 UG/DL. The reference r mae was not used to interpret this result as normal/abnor mal. COMPREHENSIVE METABOLIC [id number] 00:00:00 Test Item Value Reference Range Interpretation Comments ALBUMIN (test code = 4.4 G/DL See_Comment [Autom ated message] 4141-7) The system [facility] generated this result transmit jus reference range : 3.5-5.2 G/DL. T he reference range was not used to interpret this result as normal/abnormal . ALKALINE PHOSPHATASE 75 U/L See_Comment [Autom ated message] (test code = 6768-6) The [facility] tem which generated this result transmit jus reference range : 40-142 U/L. The reference range was not used to interpret this result as normal/abnormal . BILIRUBIN, TOTAL 0.3 MG/DL See_Comment [Automated message] (test code = 1975-2) The [facility] tem which generated this result transmit jus reference range : <=1.2 MG/DL. Th e reference range was not used to interpret this result as normal/abnormal . BUN (test code = 17 MG/DL See_Comment [Automated message] 3094-0) The system [facility] generated this result transmit jus reference range : 8-23 MG/DL. The reference range was not used to interpret this result as normal/abnormal . CALCIUM (test code = 10.9 MG/DL See_Comment H [Autom ated message] 03286-4) The system [facility] generated this result transmit jus reference range : 8.5-10.5 MG/DL. The reference range was not used to interpret this result as normal/abnormal . CALC A/G RATIO (test 1.5 RATIO See_Comment [Autom ated message] code = 1759-0) The system [facility] generated this result transmit jus reference range : 1.0-2.6 RATIO. The reference range was not used to interpret this result as normal/abnormal . CALC BUN/CREAT (test 17 RATIO See_Comment [Autom ated message] code = 3097-3) The system [facility] generated this result transmit jus reference range : 6-28 RATIO. The reference range was not used to interpret this result as normal/abnormal . CALC GLOBULIN (test 3.0 G/DL See_Comment [Automa jus message] code = 13925-1) The system [facility] generated this result transmit jus reference range : 1.9-3.7 G/DL. T he reference range was not used to interpret this result as normal/abnormal . CARBON DIOXIDE (test 31 MEQ/L See_Comment [Autom ated message] code = 1963-8) The system [facility] generated this result transmit jus reference range : 19-31 MEQ/L. Th e reference range was not used to interpret this result as normal/abnormal . CHLORIDE (test code 94 MEQ/L See_Comment L [Automa jus message] = 2075-0) The system [employer] generated this result transmit jus reference range : 95-107 MEQ/L. T he reference range was not used to interpret this result as normal/abnormal . CREATININE (test 0.99 MG/DL See_Comment [Automated message] code = 2160-0) The system [employer] generated this result transmit jus reference range : 0.60-1.30 MG/DL . The reference range was not used to interpret this result as normal/abnormal . eGFR (2020 CKD-EPI) 59 ML/MIN/1.73 See_Comment L [Auto mated message] (test code = The system [employer] 75004-9) generated this result transmit jus reference range : >60 ML/MIN/1.73. Th e reference range was not used to interpret this result as normal/abnormal . GLUCOSE (test code = 94 MG/DL See_Comment [Autom ated message] 1558-6) The system [employer] generated this result transmit jus reference range : 70-99 MG/DL. Th e reference range was not used to interpret this result as normal/abnormal . POTASSIUM (test code 5.1 MEQ/L See_Comment [Autom ated message] = 2823-3) The system [employer] generated this result transmit jus reference range : 3.5-5.4 MEQ/L. The reference range was not used to interpret this result as normal/abnormal . PROTEIN, TOTAL (test 7.4 G/DL See_Comment [Autom ated message] code = 2885-2) The system [employer] generated this result transmit jus reference range : 6.1-8.3 G/DL. T he reference range was not used to interpret this result as normal/abnormal . AST (test code = 19 U/L See_Comment [Automated message] 1920-8) The system [employer] generated this result transmit jus reference range : 9-40 U/L. The reference range was not used to interpret this result as normal/abnormal . ALT (test code = 14 U/L See_Comment [Automated message] 1742-6) The system [employer] generated this result transmit jus reference range : 5-40 U/L. The reference range was not used to interpret this result as normal/abnormal . SODIUM (test code = 133 MEQ/L See_Comment [Automa jus message] 0797-2) The system [employer] generated this result transmit jus reference range : 133-146 MEQ/L. The reference range was not used to interpret this result as normal/abnormal . ARTERY,[id number] 10:05:00 RUN DATE: 05/07/19 [facility] PAGE 1 RUN TIME: 1005 Specimen Inquiry RUN USER: INTERFACE PATIENT : RACHEAL DIA LOC: ENA U #: [id number] AGE/SX: 73/F ROOM: [facility] RE05/05/19[facility] DR: Rohith Cruz MD : 46 BED: A DIS: STATUS: ADM IN TLOC: SPEC #: [id number] RECD: 05/05/19-1611 STATUS: DIEGO BYNUM #: [id number] GUS: 05/05/19 [facility] [address]: Rohith Cruz MD ENTERED: 05/05/19 SP TYPE: ARTERY, PL OTHR DR: Jose Marc MD, Nioti R MD Pepper, Gregory S MDORDERED: DECAL, SURGPATH LVL 3, SURG PATH LVL 4 CODES: [id number] - PLAQUE, NOS [id number] - ARTERY, NOS [id number] - CAROTIDARTERY ATHEROSCLEROSIS [id number] - CERVIX EXCISIONAL BIOP [id number] - LYMPH NODE, NOS COPIES TO: Jose Marc MD [address] [place] [address] [address] [place] [address] [email or web address] [address] [place] [address] [place] [address] [facility] [address] [place] [address] [place] [address] [facility] [address] [place] [address] ICD CODES: 440 - PROCEDURES: DECAL (05/06/19-904) SURG PATH LVL 3 (05/05/19-1612) SURG PATH LVL 4 (05/06/19-1325) TISSUES: A. ARTERY, NOS - LT CAROTID PLAQUE B. LYMPH NODE, NOS - LT CERVICAL LYMPH NODE CONTINUED ON NEXT PAGE RUN DATE: 05/07/19 [facility] PAGE 2 RUN TIME: 1005 Specimen Inquiry RUN USER: INTERFACE SPEC #: [id number] PATIENT: RACHEAL DIA #[id number] (Continued) CLINICAL HISTORY LEFT INTERNAL CAROTID ARTERY STENOSIS CPT CODES CPT CODE(S): 59669 , 16209 , 04209 , , , , FINAL DIAGNOSIS A. [...] 1 x 1 cm. Serially sectioned and submittedas B1. /tc/cm MICROSCOPIC DESCRIPTION A. Left carotid plaque. Ovoid sclerotic nodule with dense calcification. No atypical features. Note: Additional recuts and levels performed. B. Left cervical lymphnode. Benign lymph node sections with variable mild perisinusoidal and paracortical reactive changes. No atypical features. /cm Signed David Maier 01/23/20 1005 END OF REPORT BASIC METABOLIC [id number] 04:51:00 Test Item Value Reference Range Interpretation [...] 9.6 MG/DL 8.4-10.2 N CA) BASIC METABOLIC [id number] 04:40:00 Test Item Value Reference Range Interpretation [...] code = MG/DL 8.7-9.7 CA) BASIC METABOLIC [id number] 04:38:00 Test Item Value Reference Range Interpretation [...] code = CA) MG/DL 8.7-9.7 BASIC METABOLIC [id number] 04:37:00 Test Item Value Reference Range Interpretation [...] code = CA) MG/DL 8.7-9.7 CBC W/AUTO [id number] 04:18:00 Test Item Value Reference Range Interpretation [...] K/mm3 0.0-0.1 N NRBC#) - XR CHEST [id number] 09:05:00 Patient Name: RACHEAL DIA Unit No: [id number] EXAMS: CPT CODE: [id number] XR CHEST 1V 60849Dzxe ID: [id number] HISTORY: Postoperative, left ICA stenosis [...] and signed by: Corbin Holliday MD CC: Jose Marc MD Technologist: Lety Vazquez, RT(R) Transcrpt Date/Tm/Trnsp: 05/06/2019 (904) LucianRCelioAJP6 Orig Print D/T: S: 05/06/2019 (907) [facility] NAME: RACHEAL DIA [address] PHYS: [place] [address] : 1945 AGE: 73 SEX: F LOC: Z.SI04 A PHONE #: [phone] EXAM DATE: 05/06/2019 STATUS: ADM IN FAX #: [phone] RADIOLOGY NO: PAGE 1 Signed Report [id number] 06:09:00 Test Item Value Reference Range Interpretation Comments MAGNESIUM (test code = MAG) 1.5 MG/DL 1.6-2.3 L BASIC METABOLIC [id number] 06:09:00 Test Item Value Reference Range Interpretation [...] code = 9.4 MG/DL 8.4-10.2 N CA) BASIC METABOLIC [id number] 05:59:00 Test Item Value Reference Range Interpretation [...] CALCIUM (test code = CA) MG/DL 8.7-9.7 [id number] 05:59:00 Test Item Value Reference Range Interpretation Comments MAGNESIUM (test code = MAG) MG/DL 1.6-2.3 CBC W/AUTO [id number] 05:46:00 Test Item Value Reference Range Interpretation [...] 0.00 K/mm3 0.0-0.1 N NRBC#) BASIC METABOLIC [id number] 13:49:00 Test Item Value Reference Range Interpretation Comments SODIUM (test code = 136 MMOL/L 137-145 L NA) POTASSIUM (test code = 2.9 MMOL/L 3.5-5.1 L SPARROW D TO [facility].V& K) READBACK ON AT 1348 BY Andrey [...] code = 9.7 MG/DL 8.4-10.2 N CA) [id number] 13:49:00 Test Item Value Reference Range Interpretation Comments MAGNESIUM (test code = MAG) 1.4 MG/DL 1.6-2.3 L BASIC METABOLIC [id number] 13:48:00 Test Item Value Reference Range Interpretation [...] code = 9.7 MG/DL 8.4-10.2 N CA) [id number] 13:48:00 Test Item Value Reference Range Interpretation Comments MAGNESIUM (test code = MAG) MG/DL 1.6-2.3 - XR CHEST [id number] 13:35:00 Patient Name: RACHEAL DIA Unit No: [id number] EXAMS: CPT CODE: [id number] XR CHEST 1V [id number] of dictation: B2 Portable chest one view. [...] and signed by: Larissa Balderas M.D. CC: Jose Marc MD Technologist: FORMERLY [facility] [employer] ; Alhaji Cha, RT(R) Transcrpt Date/Tm/Trnsp: 05/05/2019 (7044) tCelioSDR.PXC Orig Print D/T: S: 05/05/2019 (7689) [facility] NAME: RACHEAL DIA [address] PHYS: [place] [address] : 1945 AGE: 73 SEX: F LOC: Z.SI04 A PHONE #: [phone] EXAM DATE: 05/05/2019 STATUS: ADM IN FAX #: [phone] RADIOLOGY NO: PAGE 1 Signed Report CBC W/AUTO [id number] 13:20:00 Test Item Value Reference Range Interpretation [...] 0.00 K/mm3 0.0-0.1 N NRBC#) ARTERIAL BLOOD [id number] 13:17:00 Test Item Value Reference Range Interpretation [...] (test code 1.5 mmol/L -3.0-3.0 N = RUKHSNAA) ABG O2 SATURATION 97.7 % 95.0-100.0 N [...] (test code = 60 % COHBGFFIO2) PROTHROMBIN [id number] 13:06:00 Test Item Value Reference Range Interpretation [...] dial infarction. 2. 0 - 3.0 3. Parliamentary Archivist al prosthesis hear t valves, recurre nt systemic emboli sm. 3.0 - 4.5 PTT [id number] 13:06:00 Test Item Value Reference Range Interpretation Comments PTT ACTIVATED (test code = APTT) 30.4 SECONDS 22.0-33.0 N HIV 12 AB [id number] 13:02:00 Test Item Value Reference Range Interpretation Comments HIV 1 2 COMBO AG/AB SCREEN AB/AG NON REACTIVE NONREACTIVE (test code = [id number]) CBC W/AUTO [id number] 12:51:00 Test Item Value Reference Range Interpretation [...] 0.00 K/mm3 0.0-0.1 N NRBC#) BASIC METABOLIC [id number] 12:21:00 Test Item Value Reference Range Interpretation [...] 9.9 MG/DL 8.4-10.2 N CA) BASIC METABOLIC [id number] 12:20:00 Test Item Value Reference Range Interpretation [...] code = MG/DL 8.7-9.7 CA) BASIC METABOLIC [id number] 12:18:00 Test Item Value Reference Range Interpretation [...] code = CA) MG/DL 8.7-9.7 BASIC METABOLIC [id number] 12:17:00 Test Item Value Reference Range Interpretation [...] CA) MG/DL 8.7-9.7 - XR CHEST 2 [id number] 11:39:00 Patient Name: RACHEAL DIA Unit No: [id number] EXAMS: CPT CODE: [id number] XR CHEST 2 V 44565 LOCATION: T18 EXAM: CHEST 2 VIEWS INDICATION: PRE-OP COMPARISON: Chest x-ray October 01, 2018 TECHNIQU E: PA and lateral chest radiographs. FINDINGS: Lungs are clear bilaterally without effusion. Heart and mediastinum are normal in size and contour. Bones and peripheral soft tissues are unremarkable. IMPRESSION: Lungs are clear. No acute abnormality. at 1139 Reported and signed by: Imani Mueller MD CC: Jose Marc MD Technologist: RT Janet (R) Transcrpt Date/Tm/Trnsp: 05/04/2019 (9591) t.SDR.JP19 Orig Print D/T: S: 05/04/2019 (5549) [facility] NAME: RACHEAL DIA [address] PHYS: [place] [address] : 1945 AGE: 73 SEX: F LOC: Z.SRG PHONE #: [phone] EXAM DATE: 05/04/2019 STATUS: PRE SD FAX #: [phone] RADIOLOGY NO: PAGE 1 Signed ReportBASIC METABOLIC [id number] 05:09:00 Test Item Value Reference Range Interpretation [...] code = 9.0 MG/DL 8.4-10.2 N CA) [id number] 05:09:00 Test Item Value Reference Range Interpretation Comments MAGNESIUM (test code = MAG) 1.8 MG/DL 1.6-2.3 N CBC W/AUTO [id number] 04:46:00 Test Item Value Reference Range Interpretation [...] 0.00 K/mm3 0.0-0.1 N NRBC#) BASIC METABOLIC [id number] 06:03:00 Test Item Value Reference Range Interpretation [...] code = 8.7 MG/DL 8.4-10.2 N CA) [id number] 06:03:00 Test Item Value Reference Range Interpretation Comments MAGNESIUM (test code = MAG) 2.1 MG/DL 1.6-2.3 N CBC W/AUTO [id number] 05:32:00 Test Item Value Reference Range Interpretation [...] 0.00 K/mm3 0.0-0.1 N NRBC#) ARTERIAL BLOOD [id number] 12:23:00 Test Item Value Reference Range Interpretation [...] FT/NC E dited by: THOMASBGG o n 10/01/18:195137 9 1222: DELIVER Y previously repo rted as: FT/NC ABG TEMPERATURE (test 37.0 C >37 code = TEMPA) ABG SITE (test code = AL SITEA) ALLENS TEST (test code NA CHECK = ALLENS) FIO2 (test code = 40 % COHBGFFIO2) ARTERY,[id number] 11:58:00 RUN DATE: 10/01/18 [place] [facility] PAGE 1 RUN TIME: 1158 Specimen Inquiry RUN USER: INTERFACE PATIENT: RACHEAL IDA LOC: ENA U #: [id number] AGE/SX: 72/F ROOM: [facility] RE09/30/18REG DR: Rohith Cruz MD : [birth year] BED: A DIS: STATUS: ADM IN TLOC: SPEC #: [id number] RECD: 09/30/18 STATUS: DIEGO BYNUM #: [id number] GUS: 09/30/[address]: Rohith Cruz MD ENTERED: 09/30/18 SP TYPE: ARTERY, PL OTHR DR: Jose Marc MD, Nioti R MD Pepper, Gregory S MDORDERED: DECAL, SURGPATH LVL 3, SURG PATH LVL 4 CODES: [id number] - PLAQUE, NOS I13256 - ARTERY, NOS P65959 X01052 - CAROTID ARTERY ATHEROSCLEROSIS V47447 [id number] - CERVIX EXCISIONAL BIOP YJ2646 - LYMPH NODE, NOS COPIES TO: Jose Marc MD [address] [place] [address] [address] [place] [address] [email or web address] [address] [place] [address] [place] [address] [facility] [address] [place] [address] [place] [address] [facility] [address] [place], [place] [id number] ICD CODES: 440 - PROCEDURES: DECAL (10/01/18) SURG PATH LVL 3 (09/30/18) SURGPATH LVL 4 (09/30/18) TISSUES: A. ARTERY, NOS - RT ARTERY PLAQUE B. LYMPH NODE, NOS - RT CERVICAL LYMPH NODE CONTINUED ON NEXT PAGE RUN DATE: 10/01/18 [place] [facility] PAGE 2 RUN TIME: 1158 Specimen Inquiry RUN USER: INTERFACE SPEC #: [id number] PATIENT: RACHEAL DIA #[id number] (Continued) CLINICAL HISTORY RIGHTINTERNAL CAROTID ARTERY STENOSIS CPT CODES CPT CODE(S): 21850 , 05888 , 35339 , , , , FINAL DIAGNOSIS A. Plaque, right carotid artery, endarterectomy: SEVERE ATHEROSCLEROSIS, OCCLUSIVE AND CALCIFIC B. Lymph node, right cervical, excisional biopsy: MINIMAL, NON-SPECIFIC, REACTIVE CHANGE GROSS DESCRIPTION A. Right carotid plaque. Received are two pieces of yellow-wyman, heavily calcified plaque (combinedmeasurement 3.5 x 1 x 0.8 cm). Sections [...] 1158 END OF REPORT - XR CHEST [id number] 07:45:00 Patient Name: RACHEAL DIA Unit No: [id number] EXAMS: CPT CODE: [id number] XR CHEST 1V [id number]: - XR CHEST 1V. LOCATION: B2. HISTORY: [...] and signed by: Kayode Juarez MD CC: Jose Marc MD; Brisa GARCIA Technologist: Jeffrey High, RT(R) Transcrpt Date/Tm/Trnsp: 10/01/2018 (0745) Gilbert.PR7 Orig Print D/T: S: 10/01/2018 (0748) [facility] NAME: RACHEAL DIA [address] PHYS: [place] [address] : 1945 AGE: 72 SEX: F LOC: Z.SI07 A PHONE #: [phone] EXAM DATE: 10/01/2018 STATUS: ADM IN FAX #: [phone] RADIOLOGY NO: PAGE 1 Signed ReportBASIC METABOLIC [id number] 05:58:00 Test Item Value Reference Range Interpretation [...] code = 8.7 MG/DL 8.4-10.2 N CA) [id number] 05:58:00 Test Item Value Reference Range Interpretation Comments MAGNESIUM (test code = MAG) 1.7 MG/DL 1.6-2.3 N CBC W/AUTO [id number] 05:30:00 Test Item Value Reference Range Interpretation [...] code = 0.00 K/mm3 0.0-0.1 N NRBC#) [id number] 22:38:00 Test Item Value Reference Range Interpretation Comments POTASSIUM (test code = K) 3.3 MMOL/L 3.5-5.1 L [id number] 22:38:00 Test Item Value Reference Range Interpretation Comments MAGNESIUM (test code = MAG) 1.7 MG/DL 1.6-2.3 ARTERIAL BLOOD [id number] 17:57:00 Test Item Value Reference Range Interpretation [...] code = COHBGFFIO2) 40 % BASIC METABOLIC [id number] 16:18:00 Test Item Value Reference Range Interpretation [...] code = 8.9 MG/DL 8.4-10.2 N CA) [id number] 16:18:00 Test Item Value Reference Range Interpretation Comments MAGNESIUM (test code = MAG) 1.3 MG/DL 1.6-2.3 L CBC W/AUTO [id number] 16:06:00 Test Item Value Reference Range Interpretation [...] K/mm3 0.0-0.1 N NRBC#) - XR CHEST [id number] 15:29:00 Patient Name: RACHEAL DIA Unit No: [id number] EXAMS: CPT CODE: [id number] XR CHEST 1V 61021 EXAM: CHEST ONE VIEW INDICATION: Postop LOCATION: B2 COMPARISON: September 29, 2018 TECHNIQUE: AP view of the chest FINDINGS: Left-sided central venous catheter overlies the SVC. The heart size is normal. There are mild congestive changes bilaterally. No pneumothorax or pleural effusion is identified. Theosseous structures are normal. IMPRESSION: Mild congestive changes bilaterally. No pneumothorax. E lectronically Signed by Ryann Zuniga MD on 09/30/2018 at 1529 Reported and signed by: Ryann Zuniga MD CC: Jose Marc MD; Brisa GARCIA Technologist: Alhaji Cha, RT(R) Transcrpt Date/Tm/Trnsp: 09/30/2018 (1529) LakeMD16 Orig Print D/T: S: 09/30/2018 (9082) [facility] NAME: RACHEAL DIA [id number] [address] PHYS: [place] [address] : 1945 AGE:72 SEX: F LOC: Z.SI07 A PHONE #: [phone] EXAM DATE: 09/30/2018 STATUS: ADM IN FAX #: [phone] RADIOLOGY NO: PAGE 1 Signed ReportHIV 12 AB [id number] 19:14:00 Test Item Value Reference Range Interpretation Comments AB HIV 1 2 NON REACTIVE NON-REAC NOTE: A NONREAC TIVE RESULT (test code = INDICATES THAT HIV-1 AND VZV55QE) HIV-2ANTIBODIES HAVE NOT BEEN FOUND IN T HIS PATIENT SPECIMEN. ANON- REACTIVE RESULT, HOWEVER , DOES NOT PRECLUDE PREVIO USEXPOSURE OR INFECTION WI TH HIV1. AG HIV1 P24 NON REACTIVE NONE REAC (test code = VBC6F46) PROTHROMBIN [id number] 14:22:00 Test Item Value Reference Range Interpretation [...] myocar dial infarction. 2.0 - 3.0 3. Parliamentary Archivist al prosthesis hear t valves, recurre nt systemic emboli sm. 3.0 - 4.5 PTT [id number] 14:22:00 Test Item Value Reference Range Interpretation Comments PTT ACTIVATED (test code = APTT) 29.3 SECONDS 22.0-33.0 N BASIC METABOLIC [id number] 14:18:00 Test Item Value Reference Range Interpretation [...] 8.4-10.2 N CA) - XR CHEST 2 [id number] 14:14:00 Patient Name: RACHEAL DIA Unit No: [id number] EXAMS: CPT CODE: [id number] XR CHEST 2 V [id number]: CHEST 2 VIEWS INDICATION: PRE-OP LOCATION: B2 COMPARISON: None available TECHNIQUE: PA and lateral views of the chest. FINDINGS: The heart size is normal. The lungs are clear bilaterally. The pulmonary vasculature is normal. No pneumothorax or pleural effusion is identified. The osseous structures are normal. IMPRESSION: No acute cardiopulmonary process. at 1414 Reported and signed by: Ryann Zuniga MD CC: Jose Marc MD Technologist: Gay Wolef, RT(R) Transcrpt Date/Tm/Trnsp: 09/29/2018 (0584) 16 Orig Print D/T: S: 09/29/2018 (2739) [facility] NAME: RACHEAL DIA [address] [address] PHYS: [place] [address] : 1945 AGE: 72 SEX: F LOC: DarvinHU PHONE #: [phone] EXAM DATE: 09/29/2018 STATUS: PRE IN FAX #: [phone] RADIOLOGY NO: PAGE 1 Signed ReportCBC W/AUTO [id number] 13:57:00 Test Item Value Reference Range Interpretation [...] 0.00 K/mm3 0.0-0.1 N NRBC#) BASIC METABOLIC [id number] 06:04:00 Test Item Value Reference Range Interpretation [...] 0-189 mg/dL VERY HIGH.........>/ = 190 mg/dL [id number] 06:04:00 Test Item Value Reference Range Interpretation Comments MAGNESIUM (test code = MAG) 1.9 MG/DL 1.6-2.3 N PROTHROMBIN [id number] 06:00:00 Test Item Value Reference Range Interpretation [...] myocar dial infarction. 2.0 - 3.0 3. Parliamentary Archivist al prosthesis hear t valves, recurre nt systemic emboli sm. 3.0 - 4.5 Comments to Overhead Cleaner Maintainer: WILL BRING TO LABPTT [id number] 06:00:00 Test Item Value Reference Range Interpretation Comments PTT ACTIVATED (test code = APTT) 29.3 SECONDS 22.0-33.0 N Comments to Overhead Cleaner Maintainer: WILL BRING TO LABBASIC METABOLIC [id number] 05:54:00 Test Item Value Reference Range Interpretation [...] LDL (test MG/DL 0-99 code = LDL) [id number] 05:54:00 Test Item Value Reference Range Interpretation Comments MAGNESIUM (test code = MAG) 1.9 MG/DL 1.6-2.3 N CBC W/AUTO [id number] 05:41:00 Test Item Value Reference Range Interpretation [...] code = 0.00 K/mm3 0.0-0.1 N NRBC#) Notes Date/Time Note Provider Source 2019-06-17 [id number]:33:[id number] [facility] 23:33:[address] [address] PATIENT NAME: RACHEAL DIA ADMIT DA TE: 05/05/19ACCOUNT NO: [id number] ROOM NO: [facility] AGE: 73 REPORT TYPE: DISCH ARGE SUMMARY REPORT SEX: F ADMITTING PHYSICIAN:Rohith Mccrary MD ATTENDING PHYSICIAN:Rohith Cruz MD ADM ISSION DATE: 05/05/2019DISCHARGE DATE: 05/07/2019 DISCH ARGE DIAGNOSES: Left internal carotid artery stenosis , status post leftcarotid endarterectomy, hypertension, hypercholesterolemia, coronary arterydisease, hi story of right carotid endarterectomy. HOSPITAL COURSE: T he patient is a 73-year-old female well known to ou r serviceswith a history of carotid stenosis who i s status post right carotidendarterectomy on 09/30/2018. The patient is doing relatively well and was alsonot ed to have a 70% left ICA stenosis on the carotid hannah ogram. The patient wassubsequently admitted on 05/05/19 and taken to the operating room where sheunderwent a left carotid endarterectomy with Hemashield patch arterioplasty. The patient tolerated the procedu re well and was transferred to ICU in a stablecondition. In the ICU, she maintained normal sinus rhythm, stable bloodpressure. neurological status remained inta ct. BLAKE drain was removed onpostoperative day #1 and the patient was ambulating independently and withassistance of physical therapy. She was discharged home on in astable condition. She was instructed to cont inue taking her medications asprescribed and to follo w up with Dr. 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 Marc. Dictated By: RADHA Morton for Rohith Cruz MD WT : DS:GERARDO/KIM/NTSDD: 06/17/2019 23:33:37D Conf#: [id number]/DID#: [id number] Authenticated by RADHA Morton On 06/18/2019 11:10:13 AM Authenticated by Rohith Cruz MD On 06/18/2019 11:11:39 AM Electronically Sign ed by Rohith Cruz MD on 06/18/19 at 1111[facility] Signed by RADHA Epps on 06/18/19 at 11 11 PATIENT NAME: RACHEAL DIA gajnwrq9112-86-79G38:19:00Z.[id number] ailable for patient acybSAQPNOJDHZXKCQ9373-77-24Z98:12:1 2 2019-05-08 [id number]:29:00 [facility] 17:29:00 [facility])Hospitalist Progress NoteREPORT#:[id number] REPORT STATUS: SignedDATE: 05/08/19 TIME: 172 PATIENT: RACHEAL DIA UNIT #: [id number]#: [id number] ROOM/BED: [facility] 4-ADOB: [birth year] AGE: 73 SEX: F ATTEND: Rohith Cruz MDA AUTHOR: David Irving MD * ALL robinson ts or amendments must be made on the electronic/comput er document * SubjectiveChief Complaint:Pt is post Left CEA Review of SystemsConstitutional:Denies: fatigue, fever, generalized weakness. Allergy/Immun:Denies: hive s, itching. Eyes:Denies: itching, diplopia. ENT:Rep orts: sore throat. Denies: nose bleeding, sinus proble m. Cardiovascular:Denies: orthopnea, palpitations. GI:Denies: diarrhea, dysphagia. Musculoskeletal: Denies: joint pain, lumbar pain. Neuro:Denies: gait prob alexander, headache. Psych:Reports: confusion. Objective Ge neralVS/I O:24 hour I O ending at 0700: 05/08 0700 05/07 1 900 Intake Total Output Total Balance Number Voids 1 Patient Weight Weight (lb): 134Weight (oz): 2.91Weight ( kg): 60.781 Medications:Documentation of Current Medi cations in the Medical Record :I attest that the foregoi ng medication list in the medical record is true, a ccurate, and complete to the best of my knowledge. Physic al ExamGeneral appearance: alert, awake, orientedHe ad/Eyes: atraumatic, clear corneaENT: moist mucosal membr anesNeck: carotid bruit (incision site is ok)Cardiovascula r: regular rate rhythmRespiratory: aerating well, c lear to auscultationAbdomen: non-tender, normal bowel soundsExtremities: moves all, no clubbingNeuro/C NS: alert, no motor deficits Diagnosis, Assessment P ashtyn Free Text DxA P NotesFree Text DxA P Notes:ASSESSMENT :1. Left carotid endarterectomy.2. History of coronary ar blu disease.3. History of previous carotid disease.4 . Hypothyroidism.5. Hyperlipidemia.6. Hypertension . PLAN: The patient is doing well, still on Cardene drip . Medications resumed byCV service. The patient is alert and oriented. Continue present care. RestartPlav ix, atorvastatin, isosorbide, losartan, hydrochlorot hiazide, metoprolol,aspirin for now, and levothyroxine is at 100 mcg daily. Thank you, Dr. Cruz, for allowing us to participate in the care of this patient. 05/06pt was a little confused early this amNo chest pain05/07pt is doing well. he BP was elevatedProcardia was not starte dPt is eager to go home FU Dr marc for BP controlDW family Electronically Signed by David Irving MD on at 1731 RPT #:[id number] OF REPORTPRProgres s [id number]:29:00Z.EYIR23292151-5469SHHovi lable for patient lrymKEHFENBLMHKALR1153-80-08L44:31:50 2019-05-07 [id number]:42:00 [facility] 06:42:00 [facility])Cardiology Progress NoteREPORT#:[id number] REPORT STATUS: SignedDATE: 05/07/19 TIME: 0642 PATIENT: RACHEAL DIA UNIT #: [id number]#: [id number] ROOM/BED: [facility] 4-ADOB: [birth year] AGE: 73 SEX: F ATTEND: Rohith Cruz AUTHOR: Supa Kelly MD * ALL e dits or amendments must be made on the electronic/comput er document * SubjectiveChief Complaint:Carotid disease.Patient reports:No: chest pain, palpitat ions, shortness of breath. Objective GeneralVS/I O:24 hour I O ending at 0700: 05/07 0700 05/06 1900 Intake To griselda 300.00 730.00 Output Total 1090 Balance 300.00 -360.00 Intake, IV 200.00 280.00 Intake, Oral 100 450 Nu mber Voids 3 1 Output, Urine 1090 Patient 60.781 kg Weight Vital Signs: Date Time Temp Pulse Resp B/P B/P P ulse O2 O2 Flow FiO2 Mean Ox Delivery Rate 05/07 0615 69 16 106/69 83 92 05/07 0600 74 16 125/77 96 91 04/16 3 0545 80 15 122/79 94 91 05/07 0530 72 16 127/76 95 91 0515 73 17 131/75 99 91 05/07 0500 73 16 129/74 95 91 05/07 0445 71 15 118/73 90 92 05/07 0430 71 15 114/76 90 93 05/07 0415 74 16 127/74 95 93 05/07 0400 75 20 1 / 98 95 05/07 0315 74 16 152/97 119 94 05/07 0300 73 16 147/92 113 95 05/07 0245 73 16 139/91 111 94 05/07 0230 89 16 156/88 113 94 05/07 0215 72 15 118/71 90 95 04/16 3 0200 74 17 134/83 104 93 05/07 0145 75 16 127/81 99 95 05/07 0130 84 21 142/81 105 96 05/07 0115 85 23 119/72 89 91 05/07 0100 73 16 112/72 88 92 05/07 0045 72 16 1 08 83 92 05/07 0030 74 16 117/72 90 93 05/07 0000 98.2 05/07 0000 85 17 127/77 97 95 05/06 2330 97 31 139/84 102 98 05/06 2300 86 19 125/74 90 95 05/06 2230 84 19 1 29 99 99 05/06 2210 98.0 05/06 2200 88 17 145/83 109 9 2 05/06 2100 84 20 136/82 104 98 05/06 2029 88 22 160/74 107 97 05/06 2000 81 20 148/84 111 05/06 1940 98 Room a ir 05/06 1930 98 40 175/96 127 73 05/06 1917 89 37 180/96 129 98 05/06 1902 73 21 183/86 124 94 05/06 1900 78 27 179/86 124 98 05/06 1800 72 27 118/95 104 05/06 1730 71 20 145/81 108 100 05/06 1700 72 28 141/73 102 70 05/06 1636 97.6 05/06 1630 68 15 138/82 103 97 05/06 1600 76 21 140/68 98 85 05/06 1545 100 05/06 1533 96 40 145/97 05/06 1500 77 22 157/76 109 96 05/06 1430 73 16 160/81 114 100 05/06 1357 71 25 154/89 116 100 05/06 13 30 70 20 172/86 123 99 05/06 1246 80 31 169/99 129 100 1230 76 19 05/06 1130 70 28 151/81 111 05/06 1100 71 18 172/85 121 100 05/06 1055 97.6 05/06 1054 73 98 05/06 1 030 76 150/90 114 100 05/06 1017 79 152/78 107 99 05/06 1000 77 100 05/06 0930 86 100 05/06 0900 86 100 05/06 08 30 81 23 100 05/06 0800 82 14 100 05/06 0749 Nasal 2.000 000 cannula 05/06 0745 83 19 100 05/06 0724 99 Nasa l 2.484954 28 cannula 05/06 0700 97.9 05/06 0700 8 7 18 100 Patient Weight Weight (lb): 134Weight (oz): 2.91 Weight (kg): 60.781 Medications:Active Meds + DC'd Last 24 HrsNifedipine 30 MG DAILY PO Atorvastatin Calciu m 40 MG BEDTIME PO Hydralazine HCl 10 MG Q6H PRN PRN IV Hydrochlorothiazide 12.5 MG DAILY PO Losartan Po tassium 100 MG DAILY PO Potassium Chloride 50 ML Q1H IV (DC) Magnesium Sulfate/Dextrose 100 ML ONCE ONE IV (D C) Aspirin 81 MG DAILY PO Clopidogrel Bisulfate 75 MG DAILY PO Metoprolol Succinate 100 MG DAILY PO Pantopra zole 40 MG DAILY PO Levothyroxine Sodium 100 MCG DAILY@0 630 PO Famotidine 20 MG Q12HR IV (DC) Mupirocin 1 APPLI C BID NASAL Potassium Chloride/Dextrose/Sod Cl 1,000 M L Q12H IV Acetaminophen 650 MG Q4H PRN PRN PO Benzocaine/M enthol 1 EACH Q2H PRN PRN MM (CKD) Bisacodyl 10 MG ASDIR PRN RECTAL Calcium Gluconate 1,000 MG ASDIR PRN IV S odium Chloride 100 MLHydrocodone Bitart/Acetaminophen 1 TAB Q4H PRN PRN PO Hydrocodone Bitart/Acetaminophen 2 TA B Q4H PRN PRN PO Nicardipine HCl 25 MG ASDIR PRN IV Sodium Chloride 250 MLOndansetron HCl 4 MG Q8H PRN PRN IV Phenol 5 SPRAY Q2H PRN PRN MM Potassium Chloride 10 MEQ ASDIR P RN PO Lactated Ringer's 1,000 ML ONCE ONE IV (DC) Phys ical ExamGeneral appearance: alert, awake, orientedHe ad/Eyes: atraumatic, normocephalicENT: moist mucosal membranesNeck: no JVDCardiovascular: CV assessme nt: regular rate and rhythmRespiratory: clear to auscultation, no distressLower extremity: LE ass essment: no edemaMusculoskeletal: full range of motionNeu ro/SUPERINTENDENT DISTRIBUTION: alert, oriented X 3, CN II-XII intactSkin: dry, intactWound/incision: Site condition: dressing c lean dryPsychiatry: normal affect, normal judgment/in sight, normal mood ResultsFindings/Data:Laboratory Test s 05/07 0400 Chemistry Sodium (137 - 145 MMOL/L) 135 L Potassium (3.5 - 5.1 MMOL/L) 3.6 Chloride (98 - 107 MMOL/L ) 93 L Carbon Dioxide (22 - 30 MMOL/L) 33 H BUN (7 - 17 MG/DL) 11 Creatinine (0.52 - 1.04 MG/DL) 0.60 Glomerula r Filtr Rate > 60 Glucose (74 - 106 MG/DL) 93 Calcium (8 .4 - 10.2 MG/DL) 9.6 Laboratory Tests 05/07 0400 Hematolo gy WBC (3.8 - 9.8 K/MM3) 11.8 H RBC (3.58 - 4.97 M/MM3) 3.36 L Hgb (11.2 - 14.9 G/DL) 11.0 L Hct (33.2 - 43.5 % ) 32.2 L MCV (80.7 - 99.1 fL) 96 MCH (27.0 - 34.1 pg) 32. 7 MCHC (32.2 - 35.7 %) 34.2 RDW (12.1 - 15.2 %) 15.6 H Plt Count (129 - 368 K/MM3) 276 MPV (7.4 - 10.4 fl) 9.3 N eut % (Auto) (43 - 75 %) 73.7 Lymph % (Auto) (14 - 44 %) 13.3 L Harlan % (Auto) (4 - 13 %) 12.3 Eos % (Auto) (0 - 6 %) 0.2 Baso % (Auto) (0 - 2 %) 0.1 Neut # (Auto) (2.0 - 7.6 K/mm3) 8.72 H Lymph # (Auto) (1.0 - 3.8 K/mm3) 1.57 Harlan # (Auto) (0.1 - 0.8 K/mm3) 1.45 H Eos # (Auto) ( 0.0 - 0.2 K/mm3) 0.02 Baso # (Auto) (0.0 - 0.2 K/mm3) 0.0 1 Immature Gran % (0.0 - 2.0 %) 0.4 Nucleated RBC % (0 - 1.0 %) 0.0 Nucleated RBCs # (Man) (0.0 - 0.1 K/ mm3) 0.00 Diagnosis, Assessment Plan Free Text DxA P Notes Free Text DxA P Notes:IMP: Carotid disease s/p left CEA HT N CAD HLP PLAN: Continue current medical rx - cardiac stab le. Ambualte IS at 1913 RPT #:[id number] OF REPORTPRProgress [id number]:42:00Z.[id number] lab for patient [id number]:13:48 2019-05-06 [id number]:18:00 [facility] 19:18:00 [facility] ([facility])Hospitalist Progress NoteREPORT#:[id number] REPORT STATUS: SignedDATE: 05/06/19 TIME: 1917 PATIENT: RACHEAL DIA UNIT #: [id number]#: [id number] ROOM[facility]ED: [facility] 4-ADOB: [birth year] AGE: 73 SEX: F ATTEND: Rohith Cruz MDA AUTHOR: David Irving MD * ALL edit s or amendments must be made on the electronic/comput er document * SubjectiveChief Complaint:Pt is ost L eft CEA Review of SystemsConstitutional:Denies: fatigue, fever, generalized weakness. Allergy/Immun:Denies: hive s, itching. Eyes:Denies: itching, diplopia. ENT:Rep orts: sore throat. Denies: nose bleeding, sinus proble m. Cardiovascular:Denies: orthopnea, palpitations. GI:Denies: diarrhea, dysphagia. Musculoskeletal: Denies: joint pain, lumbar pain. Neuro:Denies: gait prob alexander, headache. Psych:Reports: confusion. Objective Ge neralVS/I O:Vital Signs: Date Time Temp Pulse Resp B/P B/P Pulse O2 O2 Flow FiO2 Mean Ox Delivery Rate 05/06 1800 72 27 118/95 104 05/06 1730 71 20 145/81 108 100 05/06 1700 72 28 141/73 102 70 05/06 1636 97.6 05/06 1630 68 1 5 138/82 103 97 05/06 1600 76 21 140/68 98 85 05/06 1545 100 05/06 1533 96 40 145/97 05/06 1500 77 22 157/76 109 96 05/06 1430 73 16 160/81 114 100 05/06 1357 71 25 154/8 9 116 100 05/06 1330 70 20 172/86 123 99 05/06 1246 80 31 169/99 129 100 05/06 1230 76 19 05/06 1130 70 28 151/81 111 05/06 1100 71 18 172/85 121 100 05/06 1055 97.6 05/06 1054 73 98 05/06 1030 76 150/90 114 100 05/06 1 017 79 152/78 107 99 05/06 1000 77 100 05/06 0930 86 1 00 05/06 0900 86 100 05/06 0830 81 23 100 05/06 0800 82 1 4 100 05/06 0749 Nasal 2.168246 cannula 05/06 0745 83 19 100 05/06 0724 99 Nasal 2.821848 28 cannula 05/06 0 700 97.9 05/06 0700 87 18 100 05/06 0630 81 22 100 05/06 0615 82 31 81 05/06 0600 82 18 100 05/06 0545 91 23 100 05/06 0530 95 31 94 05/06 0515 98 22 100 05/06 0500 12 9 53 97 05/06 0445 107 46 98 05/06 0430 90 25 100 05/06 0415 96 25 96 05/06 0400 97.7 05/06 0400 96 37 90 05/06 0345 88 23 100 05/06 0330 85 29 100 05/06 0315 93 28 98 05/06 0258 122 44 05/06 0245 89 15 100 05/06 0230 92 3 1 100 05/06 0215 84 17 100 05/06 0200 85 8 100 05/06 0 145 86 20 100 05/06 0130 92 18 100 05/06 0115 92 16 100 05/06 0100 96 15 100 05/06 0045 82 16 100 05/06 0030 8 5 12 100 05/06 0015 85 14 100 05/06 0000 97.6 05/06 0000 87 20 100 05/05 2345 85 31 100 05/05 2330 80 15 100 2315 85 17 100 05/05 2300 90 28 100 05/05 2245 91 16 100 05/05 2230 82 16 100 05/05 2215 72 14 100 05/05 2200 75 14 100 05/05 2145 73 15 100 05/05 2130 76 16 100 05/05 2115 74 20 100 05/05 2099 73 12 96 05/05 2044 4 1 92 05/05 2029 70 14 95 05/05 2014 72 15 98 05/05 2 000 97.7 05/05 1999 79 20 97 05/05 1945 86 40 94 05/05 19 40 Nasal 2.237793 cannula 05/05 1930 67 14 98 24 hour I O ending at 0700: 05/06 0700 05/05 1900 Intake Total 974. 00 1010.00 Output Total 2295 1075 Balance -1321.00 -65.00 Intake, IV 624.00 560.00 Intake, Oral 350 450 Ou tput, 25 45 Drainage Output, Urine 2270 1030 Patient Kristi duffy Weight (lb): 134Weight (oz): 2.91Weight (kg): 60.781 Medications:Documentation of Current Medications in the Medical Record :I attest that the foregoing medi cation list in the medical record is true, accurate, an d complete to the best of my knowledge. Active Med s + DC'd Last 24 HrsAtorvastatin Calcium 40 MG BEDTIME PO Hydrochlorothiazide 12.5 MG DAILY PO Losartan Po tassium 100 MG DAILY PO Potassium Chloride 50 ML Q1H IV (DC) Magnesium Sulfate/Dextrose 100 ML ONCE ONE IV (D C) Aspirin 81 MG DAILY PO Clopidogrel Bisulfate 75 MG DAILY PO Metoprolol Succinate 100 MG DAILY PO Pantopra zole 40 MG DAILY PO Levothyroxine Sodium 100 MCG DAILY@ 0630 PO Famotidine 20 MG Q12HR IV (DC) Mupirocin 1 APPLI C BID NASAL Potassium Chloride/Dextrose/Sod Cl 1,000 M L Q12H IV Cefazolin Sodium 1,000 MG Q8H IV (DC) Sodium Chl oride 10 MLAcetaminophen 650 MG Q4H PRN PRN PO Benzocaine /Menthol 1 EACH Q2H PRN PRN MM (CKD) Bisacodyl 10 MG ASDI R PRN RECTAL Calcium Gluconate 1,000 MG ASDIR PRN IV S odium Chloride 100 MLHydrocodone Bitart/Acetaminophen 1 TAB Q4H PRN PRN PO Hydrocodone Bitart/Acetaminophen 2 TA B Q4H PRN PRN PO Nicardipine HCl 25 MG ASDIR PRN IV Sodium Chloride 250 MLOndansetron HCl 4 MG Q8H PRN PRN IV Phenol 5 SPRAY Q2H PRN PRN MM Potassium Chloride 10 MEQ ASDIR P RN PO Lactated Ringer's 1,000 ML ONCE ONE IV (DC) Phys ical ExamGeneral appearance: alert, awakeHead/Eyes: atraumatic, clear corneaENT: moist mucosal membr anesNeck: carotid bruit (incision site is ok)Cardiovascula r: regular rate rhythmRespiratory: aerating well, c lear to auscultationAbdomen: non-tender, normal bowel soundsExtremities: moves all, no clubbingNeuro/C NS: alert, no motor deficits Diagnosis, Assessment P ashtyn Free Text DxA P NotesFree Text DxA P Notes:ASSESSMENT :1. Left carotid endarterectomy.2. History of coronary ar blu disease.3. History of previous carotid disease.4 . Hypothyroidism.5. Hyperlipidemia.6. Hypertension . PLAN: The patient is doing well, still on Cardene drip . Medications resumed byCV service. The patient is alert and oriented. Continue present care. RestartPlav ix, atorvastatin, isosorbide, losartan, hydrochlorot hiazide, metoprolol,aspirin for now, and levothyroxine is at 100 mcg daily. Thank you, Dr. Cruz, for allowing us to participate in the care of this patient. 05/06pt was a little confused early this amNo chest pain Elect ronically Signed by David Irving MD on 05/06/19 at 1921 R PT #:[id number] OF REPORTPRProgress [id number]:18:00Z.[id number] lable for patient [id number]:22:09 2019-05-06 [id number]:44:[id number] [facility] 05:44:00 [place] [address] PATIENT NAME: RACHEAL DIA ADMIT DA TE: 05/05/19ACCOUNT NO: [id number] ROOM NO: Z.SI04 AGE: 73 REPORT TYPE: ELECTROCARDIOGRAM SEX: F ADMITTING PHYSICIAN:Rohith Cruz MD ATTENDING PHYSICIAN:Rohith Cruz MD Order:[id number] Reason : CAD Test Date/Time Stamp:SatMay 06 202 0 05:44:59Blood Pressure : / mmHGVent. Rate : 085 BPM Atrial Rate : 085 BPM P-R Int : 164 ms QRS Dur : 072 ms QT Int : 366 ms P-R-T Axes : 073 035 073 degrees QTc Int : 435 ms Normal sinus rhythmNormal ECGWhen rosa isela red with ECG of 05-MAY-2019 13:29,No significant change w as foundConfirmed by JOSE MARC ([id number]) on 2019 6:53:38 AM Referred By: Rohith Cruz Confirmed by:JOSE MARC at 0653 PATIENT NAME: RACHEAL DIA IS .[id number] 2AVAvaila ble for patient [id number]: 54:02 2019-05-06 [id number]:34:00 [facility] 05:34:00 [facility] ([facility])Cardiology Progress NoteREPORT#:[id number] REPORT STATUS: SignedDATE: 05/06/19 TIME: 533 PATIENT: RACHEAL DIA UNIT #: [id number]#: [id number] ROOM/BED: [facility] 4-ADOB: [birth year] AGE: 73 SEX: F ATTEND: Rohith Cruz [facility] AUTHOR: Supa Kelly MD * ALL edits or amendments must be made on the electronic/comput er document * SubjectiveChief Complaint:Carotid disease.Patient reports:No: chest pain, palpitat ions, shortness of breath. Objective GeneralVS/I O:24 hour I O ending at 0700: 05/06 0700 05/05 1900 Intake Tot al 444.00 1010.00 Output Total 1760 1075 Balance -1316.00 -65.00 Intake, IV 444.00 560.00 Intake, Oral 450 Outpu t, 15 45 Drainage Output, Urine 1745 1030 Vital Signs:Jose Luis e Time Temp Pulse Resp B/P B/P Pulse O2 O2 Flow FiO2 Me an Ox Delivery Rate/ 0130 92 18 32588/ 0115 92 16 34623/ 0100 96 15 66355/ 0045 82 16 89478/ 0030 85 12 52854/ 0015 85 14 / 0000 97.601/22 0000 87 20 01420/ 2345 85 31 65373/ 2330 80 15 44077 / 2315 85 17 32966/ 2300 90 28 25017/ 2245 91 16 10 001/ 2230 82 16 07943/21 2215 72 14 97946/21 2200 75 14 93792/21 2145 73 15 39334/21 2130 76 16 39915/2 1 2115 74 20 97586/21 2100 73 12 9601/21 2045 41 9201/21 2030 70 14 9501/21 2015 72 15 9801/21 2000 97.701/21 200 0 79 20 9701/21 1945 86 40 9401/21 1940 Nasal 2.493246 guwweba96/21 1930 67 14 9801/21 1915 73 19 9501/ 21 1900 76 18 9301/21 1845 7001/21 1830 89 9601/21 1815 97 Nasal 2.995636 28 /21 1815 63 23 9401/21 1800 68 15 9301/21 1745 67 17 9401/21 1730 67 9401/21 1715 74 96518/21 1700 72 28122/21 1645 80 21 9301/21 163 0 70 17 47878/21 1615 73 24 58592/21 1600 69 20 79592/2 1 1600 97.8 75 20 100 Nasal 3.645789 tgaajaj85/21 1545 71 22 90511/21 1530 69 19 69604/21 1515 64 21107/21 15 00 70 46608/21 1445 70 26 55566/21 1430 66 14 29228/21 1415 71 60408/21 1400 75 33109/21 1358 100 Nasal 2.0000 00 28 ephezjx97/21 1345 68 17 24571/21 1330 Aerosol 1 0.358509 60 mask01/21 1330 79 95612/21 1315 97.7 66 18 1 00 Aerosol 10.364612 60 mask01/21 1315 75 17 95327/ 21 1310 77 15 1242 100 Face mist 10.605050 60 t ent05/05 0550 97.1 70 18 164/101 95 Room air Patient Kristi duffy Weight (lb): 134Weight (oz): 2.91Weight (kg): 60.864 Medications:Active Meds + DC'd Last 24 HrsAtorva statin Calcium 40 MG BEDTIME PO Aspirin 81 MG DAILY PO Clopidogrel Bisulfate 75 MG DAILY PO Metoprolol Succinate 100 MG DAILY PO Pantoprazole 40 MG DAILY PO Levo thyroxine Sodium 100 MCG DAILY@0630 PO Famotidine 20 MG Q1 2HR IV Mupirocin 1 APPLIC BID NASAL Magnesium Sulfate/D extrose 100 ML ONCE ONE IV (DC) Potassium Chloride 50 ML Q1H IV (DC) Potassium Chloride/Dextrose/Sod Cl 1,000 ML Q12H IV Cefazolin Sodium 1,000 MG Q8H IV (DC) Sodium Chl oride 10 MLAcetaminophen 650 MG Q4H PRN PRN PO Benzocaine /Menthol 1 EACH Q2H PRN PRN MM (CKD) Bisacodyl 10 MG ASDI R PRN RECTAL Calcium Gluconate 1,000 MG ASDIR PRN IV S odium Chloride 100 MLHydrocodone Bitart/Acetaminophen 1 TAB Q4H PRN PRN PO Hydrocodone Bitart/Acetaminophen 2 TA B Q4H PRN PRN PO Meperidine HCl 25 MG Q4H PRN PRN IM (DC) Nicardipine HCl 25 MG ASDIR PRN IV Sodium Chlori de 250 MLOndansetron HCl 4 MG Q8H PRN PRN IV Phenol 5 S PRAY Q2H PRN PRN MM Potassium Chloride 10 MEQ ASDIR PRN P O Phenylephrine HCl 0 .STK-MED ONE .ROUTE (DC) Pro tamine Sulfate 0 .STK-MED ONE .ROUTE (DC) Rocuronium Br omide 0 .STK-MED ONE .ROUTE (DC) Calcium Chloride 0 .STK -MED ONE .ROUTE (DC) Labetalol HCl 0 .STK-MED ONE .ROUTE (DC) Lidocaine HCl 0 .STK-MED ONE .ROUTE (DC) Dexamet hasone Sodium Phosphate 0 .STK-MED ONE .ROUTE (DC) Famo tidine 0 .STK-MED ONE .ROUTE (DC) Ondansetron HCl 0 .STK- MED ONE .ROUTE (DC) Lactated Ringer's 1,000 ML ONCE ONE IV Bacitracin 0 .STK-MED ONE .ROUTE (DC) Glycopyrr olate 0 .STK-MED ONE .ROUTE (DC) Heparin Sodium/Sodium C hloride 500 ML .STK-MED ONE IV (DC) Sodium Chloride 10 M L .STK-MED ONE IV (DC) Ephedrine Sulfate 0 .STK-ME D ONE .ROUTE (DC) Fentanyl Citrate 0 .STK-MED ONE .ROU TE (DC) Nicardipine HCl 250 ML .STK-MED ONE IV (DC) Phen ylephrine HCl 100 ML .STK-MED ONE IV (DC) Lidocaine HCl 0 .STK-MED ONE .ROUTE (DC) Cefazolin Sodium 0 .STK-MED ONE .ROUTE (DC) Lidocaine HCl 0 .STK-MED ONE .ROUTE (DC) Ph ysical ExamGeneral appearance: alert, awake, orientedHe ad/Eyes: atraumatic, normocephalicENT: moist mucosal membranesNeck: no JVDCardiovascular: CV assessme nt: regular rate and rhythmRespiratory: clear to auscultation, no distressLower extremity: LE ass essment: no edemaMusculoskeletal: full range of motionNeu ro/SUPERINTENDENT DISTRIBUTION: alert, oriented X 3, CN II-XII intactSkin: dry, intactWound/incision: Site condition: dressing c lean dryPsychiatry: normal affect, normal judgment/in sight, normal mood ResultsFindings/Data:Laboratory Test s 05/05 1301 Blood Gas Puncture Site AL ABG pH (7.35 - 7 .45 mmHg) 7.36 ABG pCO2 (35.0 - 45.0 mmHg) 51.2 *H ABG pO 2 (80.0 - 100.0 mmol/L) 107.8 H ABG HCO3 (20.0 - 26.0 mmol /L) 28.0 H ABG O2 Saturation (95.0 - 100.0 %) 97.7 ABG Ba se Excess (-3.0 - 3.0 mmol/L) 1.5 Nick Test (CHECK) NA Temperature (37 C) 37.0 O2 Delivery Device FACET ENT FiO2 (%) 60 Laboratory Tests 05/05 1250 Chemistry Sod ium (137 - 145 MMOL/L) 136 L Potassium (3.5 - 5.1 MMOL/L ) 2.9 L Chloride (98 - 107 MMOL/L) 98 Carbon Dioxide (22 - 30 MMOL/L) 30 Anion Gap (14 - 24 MMOL/L) 11 L BUN (7 - 17 MG/DL) 13 Creatinine (0.52 - 1.04 MG/DL) 0.60 Gl omerular Filtr Rate > 60 Glucose (74 - 106 MG/DL) 120 H C alcium (8.4 - 10.2 MG/DL) 9.7 Magnesium (1.6 - 2.3 MG/D L) 1.4 L Laboratory Tests 05/05 1250 Hematology WBC (3.8 - 9.8 K/MM3) 7.7 RBC (3.58 - 4.97 M/MM3) 3.33 L Hgb (1 1.2 - 14.9 G/DL) 10.7 L Hct (33.2 - 43.5 %) 31.7 L MC V (80.7 - 99.1 fL) 95 MCH (27.0 - 34.1 pg) 32.1 MCHC (32. 2 - 35.7 %) 33.8 RDW (12.1 - 15.2 %) 15.2 Plt Count (129 - 368 K/MM3) 231 MPV (7.4 - 10.4 fl) 9.0 Neut % (Auto ) (43 - 75 %) 77.4 H Lymph % (Auto) (14 - 44 %) 13.2 L Harlan % (Auto) (4 - 13 %) 5.7 Eos % (Auto) (0 - 6 %) 2.7 Baso % (Auto) (0 - 2 %) 0.3 Neut # (Auto) (2.0 - 7.6 K /mm3) 5.95 Lymph # (Auto) (1.0 - 3.8 K/mm3) 1.01 Harlan # (Auto) (0.1 - 0.8 K/mm3) 0.44 Eos # (Auto) (0.0 - 0.2 K/mm3) 0.21 H Baso # (Auto) (0.0 - 0.2 K/mm3) 0.02 Irish ture Gran % (0.0 - 2.0 %) 0.7 Nucleated RBC % (0 - 1.0 %) 0.0 Nucleated RBCs # (Man) (0.0 - 0.1 K/mm3) 0.00 La boratory Tests 05/05 1250 Chemistry Magnesium (1.6 - 2.3 MG/DL) 1.4 L Radiology data:Recent Impressions:RADIOLOG Y - XR CHEST 1V 05/05 1304 Report Impression - Statu s: SIGNED Entered: 05/05/2019 1338 IMPRESSION:1. Status po st left carotid endarterectomy.2. Right lower lobe atelectasis.Impression By: Sunny nugent M.D. Diagnosis, Assessment Plan Free Text DxA P Notes Free Text DxA P Notes:IMP: Carotid disease s/p left CEA HT N CAD HLP PLAN: Continue current medical rx. Review labs R eplace lytes as needed. Ambualte IS Electronically Sign ed by Supa Kelly MD on 05/06/19 at 0709 RPT #:[id number] OF REPORTPRProgress [id number]:34:00Z.[id number] lable for patient [id number]:10:02 2019-05-05 [id number]:59:[id number] [facility] 17:59:[address] [address] PATIENT NAME: RACHEAL DIA ADMIT DA TE: 05/05/19ACCOUNT NO: [id number] ROOM NO: Z.SI04 AGE: 73 REPORT TYPE: CONSU LTATION REPORT SEX: F ADMITTING PHYSICIAN:Rohith Cruz MD ATTENDING PHYSICIAN:Rohith Cruz MD CONSULTA TION DATE: CONSULTING PHYSICIAN: David Irving MD RE ASON FOR CONSULTATION: Medical management of this patient post left carotidendarterectomy. CONSULTATION REQUEST ED BY: Rohith Cruz MD HISTORY OF PRESENT ILLNESS: T his is a 73-year-old female with history ofcarotid diseas e, had a right carotid endarterectomy before and now is h [facility] carotid endarterectomy. The patient did well post-surgery, is sitting upin the chair, not in any distress, and has a drain in place. PAST MEDICAL HISTORY: Includes history of coronary artery disease,hype rtension, dyslipidemia, thyroid disorder with mitral regur gitation, previoushistory of hypothyroidism, and thrombocy topenia. PAST SURGICAL HISTORY: Splenectomy and carotid endarterectomy. SOCIAL HISTORY: The patient is a former smoker, lives with her . ALLERGIES: NO KN OWN ALLERGIES. MEDICATIONS: Noted. Please note that the patient has known coronary artery disease withsingle-vessel coronary artery disease and ci rcumflex stent in 2003. FAMILY HISTORY: Positive for atherosclerotic cardiovascular disease. REVIEW O F SYSTEMS: Ten points reviewed, pertinent findings are noted above. PHYSICAL EXAMINATION:GENERAL: The p atient is awake, alert, oriented, sitting up on the chair, andnot in any distress.VITAL SIGNS: Noted.HEENT: Pupils are round and reactive. Oropharynx is pink. Tongue i n midline.NECK: Supple. Drain in place.CHEST: No c rackles or wheezing.CARDIOVASCULAR: Regular rate and rhy thm. S1 and S2 normal.ABDOMEN: Soft. PATIENT NAME: RACHEAL DIA EXTREMITIES: No c yanosis, clubbing, or edema.CENTRAL NERVOUS SYSTEM: Crani al nerves II through XII intact. No cerebellarsigns. LABOR ATORY STUDIES: Noted. ASSESSMENT:1. Left carotid endarterectomy.2. History of coronary artery dis ease.3. History of previous carotid disease.4. Hypothyro idism.5. Hyperlipidemia.6. Hypertension. PLAN: The patien t is doing well, still on Cardene drip. Medications r esumed byCV service. The patient is alert and oriented. Continue present care. RestartPlavix, atorvastatin, isoso rbide, losartan, hydrochlorothiazide, metoprolol,aspiri n for now, and levothyroxine is at 100 mcg daily. Aaron brar, Dr. Cruz, for allowing us to participate in t care of thispatient. Dictated By: David Irving MD W T: CON:Z.MAIA/CALVIN/NTSDD: 05/05/2019 17:59:54DT: 0 05/05/2019 20:30:38Conf#: [id number]/DID#: [id number] Authenticat ed by David Irving MD On 05/08/2019 05:26:56 PM Electronically Signed by David Irving MD on at 1727 PATIENT NAME: RACHEAL DIA :30:00Z.H [id number] for patient [id number]:27:19 2019-05-05 [id number]:25:00 [facility] 16:25:00 [facility] ([facility])Cardiology Progress NoteREPORT#:[id number] REPORT STATUS: SignedDATE: 05/05/19 TIME: 1625 PATIENT: RACHEAL DIA UNIT #: [id number]#: [id number] ROOM/BED: [facility] 4-ADOB: [birth year] AGE: 73 SEX: F ATTEND: Rohith Cruz [facility] AUTHOR: Supa Kelly MD * ALL edits or amendments must be made on the electronic/comput er document * SubjectiveHPI:73 year old female with h/o carotid disease. Now s/p left CEA. Objective Gen eralVS/I O:24 hour I O ending at 0700: 05/05 0700 05/04 1 900 Intake Total Output Total Balance Patient 60.86 4 kg 63.63 kg Weight Weight Standing scale Stated/Rep orted Measurement Method Vital Signs: Date Time Temp Pulse Resp B/P B/P Pulse O2 O2 Flow FiO2 Mean Ox Deliv lilian Rate 05/05 1330 Aerosol 10.971493 60 mask 05/05 1330 79 100 05/05 1315 97.7 66 18 100 Aerosol 10.526064 60 mask 05/05 1315 75 17 100 05/05 1310 77 15 100 05/05 0550 97.1 70 18 164/101 95 Room air Patient Weight We ight (lb): 134Weight (oz): 2.91Weight (kg): 60.864 Medications:Active Meds + DC'd Last 24 HrsAtorva statin Calcium 40 MG BEDTIME PO Aspirin 81 MG DAILY PO Clopidogrel Bisulfate 75 MG DAILY PO Metoprolol Succinate 100 MG DAILY PO Pantoprazole 40 MG DAILY PO Levo thyroxine Sodium 100 MCG DAILY@0630 PO Famotidine 20 MG Q1 2HR IV Mupirocin 1 APPLIC BID NASAL Magnesium Sulfate/D extrose 100 ML ONCE ONE IV Potassium Chloride 50 ML Q1H IV Potassium Chloride/Dextrose/Sod Cl 1,000 ML Q12H IV Cefazolin Sodium 1,000 MG Q8H IV Sodium Chloride 10 MLAcetaminophen 650 MG Q4H PRN PRN PO Benzocaine /Menthol 1 EACH Q2H PRN PRN MM (CKD) Bisacodyl 10 MG ASDI R PRN RECTAL Calcium Gluconate 1,000 MG ASDIR PRN IV Sodium Chloride 100 MLHydrocodone Bitart/Acetaminophen 1 TAB Q4H PRN PRN PO Hydrocodone Bitart/Acetaminophen 2 TA B Q4H PRN PRN PO Meperidine HCl 25 MG Q4H PRN PRN IM (DC) Nicardipine HCl 25 MG ASDIR PRN IV Sodium Chlori de 250 MLOndansetron HCl 4 MG Q8H PRN PRN IV Phenol 5 S PRAY Q2H PRN PRN MM Potassium Chloride 10 MEQ ASDIR PRN P O Phenylephrine HCl 0 .STK-MED ONE .ROUTE (DC) Pro tamine Sulfate 0 .STK-MED ONE .ROUTE (DC) Rocuronium Br omide 0 .STK-MED ONE .ROUTE (DC) Calcium Chloride 0 .ST K-MED ONE .ROUTE (DC) Labetalol HCl 0 .STK-MED ONE .ROUTE (DC) Lidocaine HCl 0 .STK-MED ONE .ROUTE (DC) Dexamet hasone Sodium Phosphate 0 .STK-MED ONE .ROUTE (DC) Fam otidine 0 .STK-MED ONE .ROUTE (DC) Ondansetron HCl 0 .STK- MED ONE .ROUTE (DC) Lactated Ringer's 1,000 ML ONCE ONE IV Bacitracin 0 .STK-MED ONE .ROUTE (DC) Glycopyrro late 0 .STK-MED ONE .ROUTE (DC) Heparin Sodium/Sodium C hloride 500 ML .STK-MED ONE IV (DC) Sodium Chloride 10 M L .STK-MED ONE IV (DC) Ephedrine Sulfate 0 .STK-ME D ONE .ROUTE (DC) Fentanyl Citrate 0 .STK-MED ONE .ROU TE (DC) Nicardipine HCl 250 ML .STK-MED ONE IV (DC) Phen ylephrine HCl 100 ML .STK-MED ONE IV (DC) Lidocaine HCl 0 .STK-MED ONE .ROUTE (DC) Cefazolin Sodium 0 .STK-MED ONE .ROUTE (DC) Lidocaine HCl 0 .STK-MED ONE .ROUTE (DC) P hysical ExamGeneral appearance: alert, awake, orientedHe ad/Eyes: atraumatic, normocephalicENT: moist mucosal membranesNeck: no JVDCardiovascular: CV assessme nt: regular rate and rhythmRespiratory: clear to auscultation, no distressLower extremity: LE ass essment: no edemaMusculoskeletal: full range of motionNeu ro/SUPERINTENDENT DISTRIBUTION: alert, oriented X 3, CN II-XII intactSkin: dry, intactPsychiatry: normal affect, normal judgment /insight, normal mood ResultsFindings/Data:Laboratory Test s 05/05 1301 Blood Gas Puncture Site AL ABG pH (7.35 - 7 .45 mmHg) 7.36 ABG pCO2 (35.0 - 45.0 mmHg) 51.2 *H ABG pO2 (80.0 - 100.0 mmol/L) 107.8 H ABG HCO3 (20.0 - 26.0 mmol /L) 28.0 H ABG O2 Saturation (95.0 - 100.0 %) 97.7 ABG Ba se Excess (-3.0 - 3.0 mmol/L) 1.5 Nick Test (CHECK) NA Te mperature (37 C) 37.0 O2 Delivery Device FACETENT FiO2 (% ) 60 Laboratory Tests 05/05 1250 Chemistry Sodium (1 37 - 145 MMOL/L) 136 L Potassium (3.5 - 5.1 MMOL/L) 2.9 L Chloride (98 - 107 MMOL/L) 98 Carbon Dioxide (22 - 30 MMOL/L) 30 Anion Gap (14 - 24 MMOL/L) 11 L BUN ( 7 - 17 MG/DL) 13 Creatinine (0.52 - 1.04 MG/DL) 0.60 Gl omerular Filtr Rate > 60 Glucose (74 - 106 MG/DL) 120 H Calcium (8.4 - 10.2 MG/DL) 9.7 Magnesium (1.6 - 2.3 MG/D L) 1.4 L Laboratory Tests 05/05 1250 Hematology WBC (3.8 - 9.8 K/MM3) 7.7 RBC (3.58 - 4.97 M/MM3) 3.33 L Hgb (1 1.2 - 14.9 G/DL) 10.7 L Hct (33.2 - 43.5 %) 31.7 L MCV (80.7 - 99.1 fL) 95 MCH (27.0 - 34.1 pg) 32.1 MCHC (32.2 - 35.7 %) 33.8 RDW (12.1 - 15.2 %) 15.2 Plt Count (129 - 368 K/MM3) 231 MPV (7.4 - 10.4 fl) 9.0 Neut % (Auto ) (43 - 75 %) 77.4 H Lymph % (Auto) (14 - 44 %) 13.2 L M malcolm % (Auto) (4 - 13 %) 5.7 Eos % (Auto) (0 - 6 %) 2.7 Baso % (Auto) (0 - 2 %) 0.3 Neut # (Auto) (2.0 - 7.6 K/ mm3) 5.95 Lymph # (Auto) (1.0 - 3.8 K/mm3) 1.01 Harlan # (Au to) (0.1 - 0.8 K/mm3) 0.44 Eos # (Auto) (0.0 - 0.2 K/mm3) 0.21 H Baso # (Auto) (0.0 - 0.2 K/mm3) 0.02 Immature Gr an % (0.0 - 2.0 %) 0.7 Nucleated RBC % (0 - 1.0 %) 0.0 Nu cleated RBCs # (Man) (0.0 - 0.1 K/mm3) 0.00 Laboratory T ests 05/05 1250 Chemistry Magnesium (1.6 - 2.3 MG/DL ) 1.4 L Radiology data:Recent Impressions:RADIOLOGY - XR CHEST 1V 05/05 1304 Report Impression - Status: SIGNED Entered: 05/05/2019 1338 IMPRESSION:1. Status post left c arotid endarterectomy.2. Right lower lobe atelectasis.I mpression By: Sunny Balderas M.D. Diagnosis, Asses sment Plan Free Text DxA P NotesFree Text DxA P Notes: IMP: Carotid disease s/p left CEA HTN CAD HLP PLAN: H ome [facility] [place] IS at 0529 RPT #:[id number] OF REPORTPRProgress [id number]:25:00Z.[id number] lable for patient [id number]:29:40 2019-05-05 [id number] [facility] 13:29:[address] [address] PATIENT NAME: RACHEAL DIA ADMIT DATE: 05/05/19ACCOUNT NO: [id number] ROOM NO: [place] [address] AGE: 73 REPORT TYPE: ELECTROCARDIOGRAM SEX: F ADMITTING PHYSICIAN:Rohith Cruz MD ATTENDING PHYSICIAN:Rohith Cruz MD Order:[id number] 3Test Reason : post op Test Date/Time Stamp:SatMay 05 2019 13:29:56Blood Pressure : / mmHGVent. Rate : 073 BPM Atrial Rate : 073 BPM P-R Int : 180 ms QRS Dur : 082 ms QT Int : 396 ms P-R-T Axes : 071 030 076 degrees QTc Int : 436 ms Normal sinus rhythmNormal ECGWhen rosa isela red with ECG of 04-MAY-2019 10:28,No significant change w as foundConfirmed by JOSE MARC ([id number]) on 2019 4:06:10 PM Referred By: Rohith Cruz Confirmed by:JOSE MARC at 1606 PATIENT NAME: RACHEAL DIA IS .[id number] 9AVAvaila ble for patient aoykWMAQNYFJKKMOIR1024-26-07A61: 06:37 2019-05-05 [id number]:37:00 [facility] 12:37:00 [facility] ([facility])Brief Op NoteREPORT#:[id number] REPORT STATUS: SignedDATE:05/05/19 TIME: 1237 PA TIENT: RACHEAL DIA UNIT #: [id number]#: [id number] ROOM/BED:: 46 AGE: 73 SEX: F ATTEND: Rohith Cruz AUTH OR: Rohith Cruz MD * ALL edits or amendments mu st be made on the electronic/computer document * Op/In v Proc Note - BriefORM Surgeries: Surgery Date and Time : 05/05/2019 0930 Primary Procedure: LEFT CAROTID ENDARTERECTOMY Pre-procedure diagnosis:Left inte rnal carotid artery stenosisPost-procedure diagnosis: same as pre procedure dxProcedures performed:Left caroti d endarterectomy with hemshield patch arterioplastyInsertion of right subclavian centr al line using sonosite US guidancePrimary Surgeon:Rohith Morgansistant(s): RADHA Pedraza-CAnesthesiologist:Dr. Bandar Geronimo, CRNAAnesthesia: general anesthesiaFindings:See d etailed op reportComplications: noneEstimated blood loss in ml's: 150ccSpecimens removed/altered: left carotid plaqueDrain(s): Laceky Catheter Placed, BLAKE drainDisposition: ICU, stable Electronically Sig magdiel by Rohith Cruz MD on 05/05/19 at 1239 RPT #:[id number] OF REPORTOPOperative hhgoht6370-45-19D23:37:00Z.[id number] ailable for patient uhmfADACWGVBORAWXW5931-67-54J98:39:2 4 2019-05-05 [id number]:32:[id number] [facility] 12:32:[address] [address] PATIENT NAME: RACHEAL DIA ADMIT DA TE: 05/05/19ACCOUNT NO: [id number] ROOM NO: [facility] AGE: 73 REPORT TYPE: OPERA TIVE REPORT SEX: F ADMITTING PHYSICIAN:Rohith Cruz MD ATTENDING PHYSICIAN:Rohith Cruz MD OPERATIO N DATE: 05/05/2019 CARDIAC SURGERY SERVICE PREOPERATIVE DIAGNOSES: Left internal carotid stenosis. POSTO PERATIVE DIAGNOSIS: Left internal carotid stenosis. PROCE DURE: Right CVP insertion, ultrasound-guided access wi th SonoSite, rightsubclavian vein, left carotid endarterectomy, and Hemashield patcharterioplast y. SURGEON: Rohith Cruz MD BORDER PATROL AGENT: Brisa olguin PA-C ANESTHESIA: General. COMPLICATIONS: None. DISPOSITION: The patient to surgical ICU in stab le condition. PROCEDURE IN DETAIL: On 05/05/2019, t he patient was brought to the operatingroom, placed on the operating table in supine position, prepped and draped inusual fashion. [facility],placement of monitoring lines , the patient prepped and draped in usual fashionand p lacing right subclavian CVP using ultrasound-guided acc ess with SonoSite,right subclavian vein and Seldinger per cutaneous guidewire technique. Neckextended, turned right to 45-degree angle, prepped and draped. Incision ma dealong the anterior border of sternocleidomastoid muscl e. Carotid sheath andvessels placed around the chilel tid arterial branches. Heparin given. Clampswere ivania gabe. The arteriotomy of the common carotid extremely tigh t greater than80% stenosis of the left internal carotid ar blu. We extended beyond the plaqueand stenosis to the mo re normal-appearing artery, irrigated with heparin salinesolution. A shunt was placed. The endarter ectomy performed, plaque featheredout nicely in the int ernal carotid artery. Then, we irrigated again withhep tiffanie saline solution and Hemashield patch arterioplas ty closure with 5-0Prolene was done. Prior to patch closure completion, shunt removed. Allbranches allowed t o backbleed to flush any debris and patch closure complete. Wounds were irrigated with antibiotic saline thi ution and closed in layers inusual fashion. Dressing appli ed, and the patient to the surgical ICU in stableconditi on, neurologically intact. The patient remained stab le. Wounds were PATIENT NAME: RACHEAL DIA AC COUNT #: [id number] irrigated. The patient was taken to ICU in stable condition. Dictated By: Rohith Cruz MD WT: OP:Z.MAIA/ISAÍAS/NTSDD: 05/05/2019 12:32:10DT: 13:11:36Conf#: [id number]/DID#: [id number] cc: Jose connelly MD Authenticated by Rohith Cruz MD On 2019 01:22:07 PM at 1322 PATIENT NAME: RACHEAL DIA pfyasg0585-78-28O02:11:00Z.[id number] ilable for patient lbhuTKGQBCYSGBHOIS3257-77-87Z23:22:4 5 2019-05-04 [id number]:28:[id number] [facility] 10:28:[address] [address] PATIENT NAME: RACHEAL DIA ADMIT DA TE: ACCOUNT NO: [id number] ROOM NO: AGE: 73 REPORT TYPE: ELECTROCARDIOGRA M SEX: F ADMITTING PHYSICIAN: ATTENDING PHYSICIAN:Rohith Cruz MD Order:[id number] Reason : PRE-OP Test Date/Time Stamp:SatMay 04 2019 10:28:37Blood Pressure : * / mmHGVent. Rate : 064 BPM Atrial Rate : 064 BPM P -R Int : 162 ms QRS Dur : 074 ms QT Int : 394 ms P-R-T Ax es : 070 033 067 degrees QTc Int : 406 ms Normal sinus rhythmNormal ECGWhen compared with ECG of 08:33,Vent. rate has decreased BY 33 BPMConfirme d by SERG DAVIS, MAXWELL ([id number]) on 05/04/2019 12:1 8:13 PM Referred By: Rohith Cruz Confirmed by:VIRGEN COLÓN MD at 1218 PATIENT NAME: [place] DIA .[id number] 1AVAvasaint barnab[facility] for patient lyqwPPSBHSNQWKOALY6684-94-64J35: 18:35 2019-05-04 [id number]:28:[id number] [facility] 10:28:00 [place] [address] PATIENT NAME: RACHEAL DIA ADMIT DA TE: ACCOUNT NO: [id number] ROOM NO: AGE: 73 REPORT TYPE: ELECTROCARDIOGRA M SEX: F ADMITTING PHYSICIAN: ATTENDING PHYSICIAN:Rohith Cruz MD Order:[id number] Reason : PRE-OP Test Date/Time Stamp:SatMay 04 2019 10:28:37Blood Pressure : * / mmHGVent. Rate : 064 BPM Atrial Rate : 064 BPM P -R Int : 162 ms QRS Dur : 074 ms QT Int : 394 ms P-R-T Ax es : 070 033 067 degrees QTc Int : 406 ms Normal sinus rhythmNormal ECGWhen compared with ECG of 08:33,Vent. rate has decreased BY 33 BPMReconfir med by JOSE MARC ([id number]) on 05/04/2019 5:11:28 PM Re ferred By: Rohith Cruz Confirmed by:JOSE MARC at 1711 PATIENT NAME: RACHEAL DIA ACCOUN T #: [id number].[id number] 2AVAvaila [facility] for patient nuqsSKKOOLEEPNQGAF6371-11-48I93: 11:43 2018-11-17 [id number]:37:[id number] [facility] 21:37:00 [place] [address] PATIENT NAME: RACHEAL DIA ADMIT D ATE: 09/30/18ACCOUNT NO: [id number] ROOM NO: [facility] AGE: 73 REPORT TYPE: DISCH ARGE SUMMARY REPORT SEX: F ADMITTING PHYSICIAN:Rohith Sousa MD ATTENDING PHYSICIAN:Rohith Cruz MD ADM ISSION DATE: 09/30/2018DISCHARGE DATE: 10/04/2018 DISCH ARGE DIAGNOSES: Right internal carotid artery stenosi s, status post rightcarotid endarterectomy, moderate coron oliva artery disease, hypertension, andhypercholestero lemia. HOSPITAL COURSE: The patient is a 73-year-old fe male, who is status post acoronary artery stent in the pas t and underwent cardiac catheterization, wasfound to h ave moderate coronary artery disease and she also huggins d a carotid dupleximaging done, which showed high-gr oliverio right internal carotid artery stenosisabout 90% and th e left about 70%. She did undergo a carotid artery hannah ogram on09/20/2018, and was found to have a high-grade 90% stenosis of the rightinternal carotid artery and 70% on the left side. The patient was subsequentlyadmit jus on 09/30/2018 and taken to the operating room where she underwent aright carotid endarterectomy with Hem ashield patch arterioplasty. The patienttolerated the pr ocedure well and was transferred to ICU in a stable conditionwhere she was temporarily placed on a C ardene drip for management of her bloodpressure. Once h er oral antihypertensive medications were restarted, she wasweaned off the drip. Her BLAKE drain was removed on postop day #1. Her neurostatus remained intact. She was ambulating independently and with assistance ofp hysical therapy. She was transferred to the CVU unit and [place]. She was instructed to follow up with Dr. Cruz in 1 we ek. She is to continuemedications per the discharge MAR and also home health services was arranged forth jeff benitez. Dictated By: RADHA Morton for Ro tacho Cruz MD WT: DS:GERARDO/KIM/NTSDD: 08/2018 21:37:58DT: 11/17/2018 21:54:38Conf#: [id number]/DI D#: [id number] Authenticated by RADHA Perera On 11/18/2018 08:54:11 PM Authenticated by Rohith Cruz MD On 11/18/2018 10:06:10 PM PATIENT NAME: RACHEAL DIA Electronically Si gned by Rohith Cruz MD on 11/18/18 at 2206Electron ically Signed by RADHA Epps on 11/18/18 at 22 06 PATIENT NAME: RACHEAL DIA xybnvta4611-39-89D10:54:00Z.[id number] ailable for patient avpzEIEGIGGPHWDMLV6367-84-15U75:06:4 8 2018-10-04 [id number]:46:00 [facility] 08:46:00 [facility] ([facility])Cardiovascular Surgery ProgREPORT#:[id number] REPORT STATUS: SignedDATE: 10/04/18 TIME: 845 PATIENT: RACHEAL DIA UNIT #: [id number]#: [id number] ROOM/BED: [facility] 7-ADOB: [birth year] AGE: 72 SEX: F ATTEND: Rohith Cruz AUTHOR: Ladi Guido NP * ALL e dits or amendments must be made on the electronic/comput er document * GeneralPost-op: day 3Status post:Righ t CEA SubjectivePatient reports:No: complaints, nausea , vomiting, pain. Nursing reports:No: complaints. Comments:seen pt walking in the hallwaydenies SO B, CP, pain Review of SystemsConstitutional:Denies: chi lls, fatigue, fever, generalized weakness. Respirator y:Denies: NEGRO (dyspnea on exertion), SOB. Cardiovascular:D enies: chest pain, NEGRO (dyspnea on exertion), edema, or thopnea. Objective Physical ExamVS/I O:Last Documented: R esult Date Time Pulse Ox 97 10/04 0719 FiO2 21 10/04 0 719 O2 Delivery Room air 10/04 07 Temp 36.6 10/04 04 00 B/P 151/74 10/03 1818 B/P Mean 103 10/03 1818 Pulse 96 10/03 1818 Resp 30 10/03 1818 O2 Flow Rate 2.690417 0715 24 hour I O ending at 0700: 10/04 0700 10/03 19 00 Intake Total 120 1360.00 Output Total 600 200 Balance - 480 1160.00 Intake, IV 500.00 Intake, Oral 120 860 N umber Voids 3 Output, Urine 600 200 Patient Weight We ight (lb): 156Weight (oz): 3.65Weight (kg): 70.76 Medications:Active Meds + DC'd Last 24 HrsSodium Chloride 500 ML BOLUS ONCE ONE IV (DC) Famotidine 20 MG Q 12HR PO Nifedipine 10 MG Q4H PRN PRN SL Aspirin 81 MG DA SYBIL PO Clopidogrel Bisulfate 75 MG DAILY PO Hydrochloro thiazide 12.5 MG DAILY PO Isosorbide Mononitrate 30 MG DA SYBIL PO Losartan Potassium 100 MG DAILY PO Metoprolol Becerra ccinate 100 MG DAILY PO Levothyroxine Sodium 100 MCG VASU LY@0630 PO Atorvastatin Calcium 40 MG BEDTIME PO Mupiroc in 1 APPLIC BID NASAL Potassium Chloride/Dextrose/Sod Cl 1,000 ML Q12H IV Acetaminophen/Codeine Phosphate 2 UDT AB Q4H PRN PRN PO Acetaminophen/Codeine Phosphate 1 UDT AB Q4H PRN PRN PO Meperidine HCl 25 MG Q4H PRN PRN IM M eperidine HCl 50 MG Q4H PRN PRN IM Acetaminophen 650 MG Q8 H PRN PRN PO Acetaminophen 650 MG Q4H PRN PRN PO Benzocain e/Menthol 1 EACH Q2H PRN PRN MM (CKD) Bisacodyl 10 MG ASDI R PRN RECTAL Calcium Gluconate 1,000 MG ASDIR PRN IV S odium Chloride 100 MLNicardipine HCl 25 MG ASDIR PRN I V Sodium Chloride 250 MLNifedipine 10 MG Q4H PRN PRN SL Ondansetron HCl 4 MG Q8H PRN PRN IV Phenol 5 SPR AY Q2H PRN PRN MM Potassium Chloride 10 MEQ ASDIR PRN P O Magnesium Hydroxide 30 ML ASDIR PRN PO Zolpidem Tartrate 5 MG BEDTIME PRN PRN PO General appearance: aler t, awake, oriented, no acute distress, no respiratory distressWound/incision: Location: right lateral neck incision Site condition: dressing clean dry, israel ssing intactNeck: tenderness (right neck), Right neck swellingCardiovascular: BP/pulses equal bilat., normal heart sounds, regular rate rhythmRespiratory: ae rating well, clear to auscultation, symmetric expansion , no distressAbdomen: soft, non-tender, normal bowel sounds, no distentionGenitourinary: no foleyExtremities: moves all, no edemaNeuro/SUPERINTENDENT DISTRIBUTION: alert, oriented X 3, CNI I-XII intacte, normal gait, normal speech, nomotor def icits, no sensory deficits, Tongue is midline without vish ation Diagnosis, Assessment PlanFree Text A P:This is a 72 Y/F with LITTLE stenosisS/p Right CEA-tongue is midlin e without deviation, left facial droop. Right mildfacial s wellingOn statin/plavix/aspirinDVT prophylaxis-SCDs and TEDsEncourage IS and ambulationHTN- well control ledCM [facility] for [facility]: D/c planning home with [facility] today when VS is stable and pt is ready. Follwnyasia p with Dr. Cruz after 1-2 weeks in the clinic. Plan discussed with: patient, collaborating MD (DR. Cruz) at 1921 RPT #:[id number] OF REPORTPRProg ress Nfls4846-88-87O16:46:00Z.[id number] lable for patient qslrHIJTBMQATJLSAN1235-06-93Q57:21:45 2018-10-04 [id number]:46:00 [facility] 08:46:00 [facility] ([facility])Cardiovascular Surgery ProgREPORT#:[id number] REPORT STATUS: SignedDATE: 10/04/18 TIME: 0846 PATIENT: RACHEAL DIA UNIT #: [id number]#: [id number] ROOM/BED: [facility] 7-ADOB: [birth year] AGE: 72 SEX: F ATTEND: Rohith Cruz [facility] AUTHOR: Ladi Guido SENIOR HARDWARE DESIGN ENGINEER * ALL edits or amendments must be made on the electronic/comput er document * GeneralPost-op: day 3Status post:Righ t CEA SubjectivePatient reports:No: complaints, nausea , vomiting, pain. Nursing reports:No: complaints. Comments:seen pt walking in the hallwaydenies SO B, CP, pain Review of SystemsConstitutional:Denies: chi lls, fatigue, fever, generalized weakness. Respirator y:Denies: NEGRO (dyspnea on exertion), SOB. Cardiovascular:D enies: chest pain, NEGRO (dyspnea on exertion), edema, or thopnea. Objective Physical ExamVS/I O:Last Documented: R esult Date Time Pulse Ox 97 10/04 0719 FiO2 21 10/04 0 719 O2 Delivery Room air 10/04 718 Temp 36.6 10/04 040 0 B/P 151/74 10/03 1818 B/P Mean 103 10/03 1818 Pulse 96 10/03 1818 Resp 30 10/03 1818 O2 Flow Rate 2.512659 0715 24 hour I O ending at 0700: 10/04 0700 10/03 190 0 Intake Total 120 1360.00 Output Total 600 200 Balance -480 1160.00 Intake, IV 500.00 Intake, Oral 120 860 N umber Voids 3 Output, Urine 600 200 Patient Weight Aleks ght (lb): 156Weight (oz): 3.65Weight (kg): 70.76 Medicatio ns:Active Meds + DC'd Last 24 HrsSodium Chloride 500 ML RADHA KATHERINE ONCE ONE IV (DC) Famotidine 20 MG Q12HR PO Nifedipine 10 MG Q4H PRN PRN SL Aspirin 81 MG DAILY PO Clopidogre l Bisulfate 75 MG DAILY PO Hydrochlorothiazide 12. 5 MG DAILY PO Isosorbide Mononitrate 30 MG DAILY PO L osartan Potassium 100 MG DAILY PO Metoprolol Succinate 1 00 MG DAILY PO Levothyroxine Sodium 100 MCG DAILY@0630 PO Atorvastatin Calcium 40 MG BEDTIME PO Mupirocin 1 APPLIC BID NASAL Potassium Chloride/Dextrose/Sod Cl 1,0 00 ML Q12H IV Acetaminophen/Codeine Phosphate 2 UDTAB Q4H PRN PRN PO Acetaminophen/Codeine Phosphate 1 UDTAB Q 4H PRN PRN PO Meperidine HCl 25 MG Q4H PRN PRN IM Mepe ridine HCl 50 MG Q4H PRN PRN IM Acetaminophen 650 MG Q8 H PRN PRN PO Acetaminophen 650 MG Q4H PRN PRN PO Benzocain e/Menthol 1 EACH Q2H PRN PRN MM (CKD) Bisacodyl 10 MG ASDI R PRN RECTAL Calcium Gluconate 1,000 MG ASDIR PRN IV S odium Chloride 100 MLNicardipine HCl 25 MG ASDIR PRN I V Sodium Chloride 250 MLNifedipine 10 MG Q4H PRN PRN SL Ondansetron HCl 4 MG Q8H PRN PRN IV Phenol 5 SPR AY Q2H PRN PRN MM Potassium Chloride 10 MEQ ASDIR PRN P O Magnesium Hydroxide 30 ML ASDIR PRN PO Zolpidem Tartrate 5 MG BEDTIME PRN PRN PO General appearance: aler t, awake, oriented, no acute distress, no respiratory distressWound/incision: Location: right lateral neck incision Site condition: dressing clean dry, israel ssing intactNeck: tenderness (right neck), Right neck swellingCardiovascular: BP/pulses equal bilat., normal heart sounds, regular rate rhythmRespiratory: ae rating well, clear to auscultation, symmetric expansion , no distressAbdomen: soft, non-tender, normal bowel sounds, no distentionGenitourinary: no foleyExtremities: moves all, no edemaNeuro/SUPERINTENDENT DISTRIBUTION: alert, oriented X 3, CNI I-XII intacte, normal gait, normal speech, nomotor def icits, no sensory deficits, Tongue is midline without vish ation Diagnosis, Assessment PlanFree Text A P:This is a 72 Y/F with LITTLE stenosisS/p Right CEA-tongue is midlin e without deviation, left facial droop. Right mildfacial s wellingOn statin/plavix/aspirinDVT prophylaxis-SCDs and TEDsEncourage IS and ambulationHTN- well control ledCM consult for [facility]: D/c planning home with [facility] today when VS is stable and pt is ready. Follwou p with Dr. Cruz after 1-2 weeks in the clinic. Plan discussed with: patient, collaborating MD (DR. Cruz) at 1921 at 1923 RPT #:[id number] OF REPORTPRProgress Xmof1338-98-61P11:46:00Z.[id number] lable for patient qiukLOUZEININUPDTV5706-19-46H67:23:36 2018-10-04 [id number]:33:751211-0439 [facility] 08:33:00 [place] [address] PATIENT NAME: RACHEAL DIA ADMIT DA TE: 09/30/18ACCOUNT NO: [id number] ROOM NO: Z.SI07 AGE: 72 REPORT TYPE: ELECTROCARDIOGRAM SEX: F ADMITTING PHYSICIAN:Rohith Cruz MD ATTENDING PHYSICIAN:Rohith Cruz MD Order:[id number] Reason : CAD Test Date/Time Stamp:SatOct 04 08:33:11Blood Pressure : / mmHGVent. Rate : 097 BPM Atrial Rate : 097 BPM P-R Int : 146 ms QRS Dur : 080 ms QT Int : 328 ms P-R-T Axes : 073 027 079 degrees QTc Int : 416 ms Normal sinus rhythmNormal ECGWhen rosa isela red with ECG of 01-OCT-2018 08:08,No significant change w as foundConfirmed by JOSE MARC ([id number]) on 2018 10:11:09 AM Referred By: Rohith Cruz Confirme d by:JOSE MARC at 1011 PATIENT NAME: RACHEAL DIA .[id number] 9AVAvaila ble for patient snjhSQHDLSONPWOTUL9223-18-74Y30: 11:35 2018-10-04 [id number]:13:00 [facility] 06:13:00 [facility] ([facility])Cardiology Progress NoteREPORT#:[id number] REPORT STATUS: SignedDATE: 10/04/18 TIME: 612 PATIENT: RACHEAL DIA UNIT #: [id number]#: [id number] ROOM/BED: [facility] 7-ADOB: [birth year] AGE: 72 SEX: F ATTEND: Rohith Cruz AUTHOR: Jose Marc MD * ALL e dits or amendments must be made on the electronic/comput er document * SubjectiveChief Complaint:feels maryanne rPatient reports:No: complaints, chest pain, palpitations , shortness of breath, swelling. Nursing reports:N o: complaints. Objective GeneralVS/I O:24 hour I O ending at 0700: 10/04 0700 10/03 1900 Intake Total 1360.00 Output Total 200 Balance 1160.00 Intake, IV 500.00 Int baldomero, Oral 860 Number Voids 3 Output, Urine 200 Vital Sign s: Date Time Temp Pulse Resp B/P B/P Pulse O2 O2 Flow Fi O2 Mean Ox Delivery Rate 10/031 Room air 21 10/03 1 900 97.8 10/03 1818 96 30 151/74 103 89 10/03 1803 99 21 178/93 128 93 10/03 1748 101 19 148/72 103 92 10/03 17 33 96 21 153/75 107 95 10/03 1718 100 21 166/85 119 92 1707 140/85 106 10/03 1648 91 15 126/74 96 95 10/03 1 633 88 16 129/69 92 90 10/03 1618 92 16 148/81 108 91 06 1 1603 87 15 142/75 104 94 10/03 1600 98.1 10/03 1548 85 1 9 141/75 99 95 10/03 1530 95 25 104/62 78 91 10/03 1528 1 03 31 116/67 83 92 10/03 1524 93 36 79/54 62 93 10/03 1522 85 18 71/48 56 91 10/03 1500 87 18 70/45 53 90 06 1 1430 92 21 87/53 64 90 10/03 1400 103 26 116/73 91 76 1337 98 22 134/67 93 90 10/03 1330 120 160/88 112 79 10/03 1300 92 21 147/81 108 93 10/03 1229 93 22 99/68 79 90 10/03 1200 98 22 92/55 69 91 10/03 1136 96 27 86 10/03 1115 94 22 94 10/03 1101 93 24 130/76 95 86 1043 98.1 91 Room air 10/03 1000 91 16 104/56 74 91 0 10/03 0900 94 23 142/80 103 97 10/03 0800 86 19 160/80 111 98 10/03 0730 79 15 99 10/03 0715 98.4 10/03 0715 Nasal 2.447733 cannula 10/03 0700 87 17 123/77 95 100 10/03 063 0 85 15 100 Patient Weight Weight (lb): 156Weight (oz): 3.65Weight (kg): 70.76 Medications:Active Meds + DC'd Last 24 HrsSodium Chloride 500 ML BOLUS ONCE ONE IV (DC) Famotidine 20 MG Q12HR PO Nifedipine 10 MG Q4H P RN PRN SL Aspirin 81 MG DAILY PO Clopidogrel Bisulfate 75 MG DAILY PO Hydrochlorothiazide 12.5 MG DAILY PO Isosorbi de Mononitrate 30 MG DAILY PO Losartan Potassium 10 0 MG DAILY PO Metoprolol Succinate 100 MG DAILY PO Levothyroxine Sodium 100 MCG DAILY@0630 PO Atorv astatin Calcium 40 MG BEDTIME PO Mupirocin 1 APPLIC BID NASAL Potassium Chloride/Dextrose/Sod Cl 1,000 ML Q12H IV Acetaminophen/Codeine Phosphate 2 UDTAB Q4H PRN PRN PO Acetaminophen/Codeine Phosphate 1 UDTAB Q4H PRN PRN PO Meperidine HCl 25 MG Q4H PRN PRN IM Meperidine H Cl 50 MG Q4H PRN PRN IM Acetaminophen 650 MG Q8H PRN PRN PO Acetaminophen 650 MG Q4H PRN PRN PO Benzocaine/M enthol 1 EACH Q2H PRN PRN MM (CKD) Bisacodyl 10 MG ASDIR PRN RECTAL Calcium Gluconate 1,000 MG ASDIR PRN IV S odium Chloride 100 MLNicardipine HCl 25 MG ASDIR PRN I V Sodium Chloride 250 MLNifedipine 10 MG Q4H PRN PRN SL Ondansetron HCl 4 MG Q8H PRN PRN IV Phenol 5 SPR AY Q2H PRN PRN MM Potassium Chloride 10 MEQ ASDIR PRN P O Magnesium Hydroxide 30 ML ASDIR PRN PO Zolpidem Tartrate 5 MG BEDTIME PRN PRN PO Status post:R CEA Physic al ExamGeneral appearance: alert, awake, oriented, no acute distress, pleasant, conversational, mental statu s normal, no respiratory distressHead/Eyes: atraumatic, normocephalicENT: moist mucosal membranesNeck: n o bruit/NL carotids (R CEA), no JVDCardiovascular: CV assessment: regular rate and rhythm, BP pulses = bilaterally, no murmurRespiratory: clear to ausc ultation, no distressAbdomen: soft, non-tender, no mass/organomegalyLower extremity: LE assessment: no edema, 2+ peripheral pulsesMusculoskeletal: full range of motionNeuro/SUPERINTENDENT DISTRIBUTION: alert, oriented X 3, CN II-XII intact, no motor deficitsSkin: dry, intactWound/incision : Site condition: dressing clean dryPsychiatry: normal affect, normal judgment/insight, normal mood, no halluci nations ResultsResults: labs reviewed, vital signs stabl e, EKG personally reviewed, rhythm personally rev'd, cu rrent med profile rev'dEKG Interpretation: normal sinus rhythmTelemetry Interpretation:ST Diagnosis, Ass essment PlanConsultants: cardiovascular surgeryCode stat us: full codePlan discussed with: patient, patient care t eam, nurse Free Text DxA P NotesFree Text DxA P Notes :IMP: Carotid vascular disease s/p right CEA CAD - sta ble HTN HLP sinus tachycardia PLAN: Ambulate Continue cu rrent medications Home today at 1021 RPT #:[id number] OF REPORTPRProgress Nnqy3560-43-64Y00:13:00Z.[id number] lable for patient jaqwKKBAHNLIBPVBSM6169-67-48O60:21:58 2018-10-03 BMmegpxnupc485363646298-64-68C41:54:00 [facility] 17:54:00 [facility] ([facility])Hospitalist Progress NoteREPORT#:[id number] REPORT STATUS: SignedDATE: 10/03/18 TIME: 1754 PATIENT: RACHEAL DIA UNIT #: [id number]#: [id number] [address] [birth year] AGE: 72 SEX: F ATTEND: Rohith Cruz [facility] AUTHOR: Mariana Humphrey MD * ALL edits or amendments must be made on the electronic/comput er document * SubjectiveChief Complaint:patient is doing well. Review of SystemsAll systems rev neg: exce pt as marked Objective Physical ExamHead/Eyes: EOMI, P ERRLNeck: right side of neck dressing intactCardiovascular : normal heart sounds, regular rate rhythmRespiratory: ae rating well, clear to auscultationAbdomen: non-tender, normal bowel soundsMusculoskeletal: normal inspectionPs ychiatry: normal affect, normal judgment/insight Diagnosis , Assessment Plan Free Text DxA P NotesFree text D xA P notes: Diagnosis, Assessment Plan pt is 72 y/o f emale with h/o CAD and stent , HTN, HLD, hypothyroidis m underwent Procedures performed:Right carotid endarterectomy with hemashield patch arterioplas ty. pt is admitted for post op care. plan: contienu treatm ent per dr cruz and monitor clinical recovery. 9: blood pressure became uncontrolled requiring restartin g of nicardipine drip. resume home medications and mo nitor for bp control. 10/02/18: patient is doing better, am bulating in hallway. blood pressure is better controlled. transfer out of icu. 10/03/18: patient is doing well. pt i s getting discharge home with home myrna. Quality MedicationsCurrent medication review:I attest th at the foregoing medication list in the medical record is true, accurate, and complete to the best of my knowled ge. Advanced Care Plan 65 or OlderDiscussed with: radha george, surrogate joel. makerDiscussion included: code status (full code) Tobacco Use/CounselingTobacco use/co unseling: non tobacco user HTN Screening/Follow-upB/P assess/follow-up: pre-existing hx of HTN Electro nically Signed by Mraiana Humphrey MD on 10/05/18 at 1312 RP T #:[id number] OF REPORTPRProgress [id number]:54:00Z.[id number] lable for patient [id number]:12:39 2018-10-03 [id number]:59:00 [facility] 11:59:00 [facility] ([facility])Cardiovascular Surgery ProgREPORT#:[id number] REPORT STATUS: SignedDATE: 10/03/18 TIME: 1159 PATIENT: RACHEAL DIA UNIT #: [id number]#: [id number] ROOM/BED: [facility] 7-ADOB: [birth year] AGE: 72 SEX: F ATTEND: AnthonyRohith Corrie [facility] AUTHOR: Ladi Guido NP * ALL e dits or amendments must be made on the electronic/comput er document * GeneralPost-op: day 2Status post:Righ t CEA SubjectivePatient reports:No: complaints, nausea , vomiting, pain. Nursing reports:No: complaints. Comments:seen pt OOB in the chairdenies SOB, CP, pain Review of SystemsConstitutional:Denies: chills, fatigue, fever, generalized weakness. Respiratory:Denies: NEGRO (dyspnea on exertion), SOB. Cardiovascular:Denie s: chest pain, NEGRO (dyspnea on exertion), edema, orthopne a. Objective Physical ExamVS/I O:Last Documented: Result Date Time Pulse Ox 86 10/03 1136 Pulse 96 10/03 1136 Resp 27 10/03 1136 B/P 130/76 10/03 1101 B/P Mean 95 10/03 1101 O2 Delivery Room air 10/03 1043 Temp 36.7 0 10/03 1043 O2 Flow Rate 2.478955 10/03 0715 FiO2 28 10/02 2 006 24 hour I O ending at 0700: 10/03 0700 10/02 1900 Intake Total 160 315 Output Total Balance 160 315 Inta ke, Oral 160 315 Number Voids 6 3 Patient Weight Weight ( lb): 156Weight (oz): 3.65Weight (kg): 70.76 Medicatio ns:Active Meds + DC'd Last 24 HrsFamotidine 20 MG Q12HR PO Nifedipine 10 MG Q4H PRN PRN SL Aspirin 81 MG DA SYBIL PO Clopidogrel Bisulfate 75 MG DAILY PO Hydrochloro thiazide 12.5 MG DAILY PO Isosorbide Mononitrate 30 MG DA SYBIL PO Losartan Potassium 100 MG DAILY PO Metoprolol Becerra ccinate 100 MG DAILY PO Levothyroxine Sodium 100 MCG VASU LY@0630 PO Atorvastatin Calcium 40 MG BEDTIME PO Mupiroc in 1 APPLIC BID NASAL Potassium Chloride/Dextrose/Sod Cl 1,000 ML Q12H IV Acetaminophen/Codeine Phosphate 2 UD TAB Q4H PRN PRN PO Acetaminophen/Codeine Phosphate 1 UDT AB Q4H PRN PRN PO Meperidine HCl 25 MG Q4H PRN PRN IM M eperidine HCl 50 MG Q4H PRN PRN IM Acetaminophen 650 MG Q8 H PRN PRN PO Acetaminophen 650 MG Q4H PRN PRN PO Benzocain e/Menthol 1 EACH Q2H PRN PRN MM (CKD) Bisacodyl 10 MG ASDI R PRN RECTAL Calcium Gluconate 1,000 MG ASDIR PRN IV S odium Chloride 100 MLNicardipine HCl 25 MG ASDIR PRN I V Sodium Chloride 250 MLNifedipine 10 MG Q4H PRN PRN SL Ondansetron HCl 4 MG Q8H PRN PRN IV Phenol 5 SPR AY Q2H PRN PRN MM Potassium Chloride 10 MEQ ASDIR PRN P O Magnesium Hydroxide 30 ML ASDIR PRN PO Zolpidem Tartrate 5 MG BEDTIME PRN PRN PO General appearance: aler t, awake, oriented, no acute distressWound/incision: Locat ion: right lateral neck incision Site condition: dres sing clean dry, dressing intact, mild swellingNeck: t enderness (right neck), Right neck swellingCardiovascular: BP/pulses equal bilat., normal heart sounds, reg ular rate rhythmRespiratory: aerating well, clear to auscu ltation, symmetric expansion, no distressAbdomen: soft, non-tender, normal bowel sounds, no distentionGenitourinary: no foleyExtremities: mo ves all, no edemaNeuro/SUPERINTENDENT DISTRIBUTION: alert, oriented X 3, CNII-XII intacte, normal gait, normal speech, nomotor deficits, no sensory deficits, Tongue is midline without deviation ResultsFindings/Data:Laboratory Tests 10/04 419 Chemistry Sodium (137 - 145 MMOL/L) 137 Potassiu m (3.5 - 5.1 MMOL/L) 3.8 Chloride (98 - 107 MMOL/L) 94 L Carbon Dioxide (22 - 30 MMOL/L) 37 H BUN (7 - 17 MG/DL) 8 Creatinine (0.52 - 1.04 MG/DL) 0.50 L Glomerular Filtr Rate > 60 Glucose (74 - 106 MG/DL) 105 Calcium (8.4 - 10.2 MG/DL) 9.0 Magnesium (1.6 - 2.3 MG/DL) 1.8 Laboratory Tests 06/21 0420 Hematology WBC (3.8 - 9.8 K/MM3) 11.9 H RBC (3.58 - 4.97 M/MM3) 3.34 L Hg b (11.2 - 14.9 G/DL) 10.8 L Hct (33.2 - 43.5 %) 33.2 MCV (80.7 - 99.1 fL) 99 MCH (27.0 - 34.1 pg) 32.3 MCHC (32.2 - 35.7 %) 32.5 RDW (12.1 - 15.2 %) 14.9 Plt Count (129 - 368 K/MM3) 270 MPV (7.4 - 10.4 fl) 8.8 Neut % (Auto ) (43 - 75 %) 75.6 H Lymph % (Auto) (14 - 44 %) 10.5 L M malcolm % (Auto) (4 - 13 %) 12.9 Eos % (Auto) (0 - 6 %) 0 .5 Baso % (Auto) (0 - 2 %) 0.2 Neut # (Auto) (2.0 - 7.6 K/ mm3) 9.00 H Lymph # (Auto) (1.0 - 3.8 K/mm3) 1.25 Mon o # (Auto) (0.1 - 0.8 K/mm3) 1.54 H Eos # (Auto) (0. 0 - 0.2 K/mm3) 0.06 Baso # (Auto) (0.0 - 0.2 K/mm3) 0.0 2 Immature Gran % (0.0 - 2.0 %) 0.3 Nucleated RBC % (0 - 1.0 %) 0.0 Nucleated RBCs # (Man) (0.0 - 0.1 K/ mm3) 0.00 Diagnosis, Assessment PlanFree Text A P:This is a 72 Y/F with LITTLE stenosisS/p Right CEA-tongue is midlin e without deviation, left facial droop. Right facial swell ingOn statin/plavix/aspirinDVT prophylaxis-SCDs and TEDsEncourage IS and ambulationHTN- well control ledCM [facility]: D/c planning home with [facility] today or dexter. when VS is stable and pt is ready. RN reported that pt desaturate to O2 sat 90%'s-95%' s while resting. Then after walking she desat 90%'s. Whi le sleeping pt O2 sat running between 88%-92%. Cons ulted CM for home oxygen to go home with. CM is following . Discussed with Dr. Cruz. Plan discussed with: patient, collaborating MD (Dr. Cruz) Electronically Si gned by Ladi Guido SENIOR HARDWARE DESIGN ENGINEER on 10/03/18 at 1236 RPT #:[id number] OF REPORTPRProgress [id number]:59:00Z.[id number] lable for patient ibdgTKCNXMZARBVWBP4371-15-96W76:36:34 2018-10-03 [id number]:59:00 [facility] 11:59:00 [facility] ([facility])Cardiovascular Surgery ProgREPORT#:[id number] REPORT STATUS: SignedDATE: 10/03/18 TIME: 1159 PATIENT: RACHEAL DIA UNIT #: [id number]#: [id number] ROOM/BED: [facility] 7-ADOB: [birth year] AGE: 72 SEX: F ATTEND: Rohith Cruz MDA AUTHOR: Ladi Guido SENIOR HARDWARE DESIGN ENGINEER * ALL e dits or amendments must be made on the electronic/comput er document * See AddendumGeneralPost-op: day 2 Status post:Right CEA SubjectivePatient reports:No: com plaints, nausea, vomiting, pain. Nursing reports:No: comp laints. Comments:seen pt OOB in the chairdenies SOB, CP, pain Review of SystemsConstitutional:Denies: chills, fatigue, fever, generalized weakness. Respiratory:Denies: NEGRO (dyspnea on exertion), SOB. Cardiovascular:Denie s: chest pain, NEGRO (dyspnea on exertion), edema, orthopne a. Objective Physical ExamVS/I O:Last Documented: R esult Date Time Pulse Ox 86 10/03 1136 Pulse 96 10/03 1136 Resp 27 10/03 1136 B/P 130/76 10/03 1101 B/P Mean 95 10/03 1101 O2 Delivery Room air 10/03 1043 Temp 36.7 10/03 1043 O2 Flow Rate 2.217980 10/03 0715 FiO2 28 2005 24 hour I O ending at 0700: 10/03 0700 10/02 190 0 Intake Total 160 315 Output Total Balance 160 315 Intak e, Oral 160 315 Number Voids 6 3 Patient Weight Weight ( lb): 156Weight (oz): 3.65Weight (kg): 70.76 Medicatio ns:Active Meds + DC'd Last 24 HrsFamotidine 20 MG Q12HR PO Nifedipine 10 MG Q4H PRN PRN SL Aspirin 81 MG DA SYBIL PO Clopidogrel Bisulfate 75 MG DAILY PO Hydrochloro thiazide 12.5 MG DAILY PO Isosorbide Mononitrate 30 MG DA SYBIL PO Losartan Potassium 100 MG DAILY PO Metoprolol Becerra ccinate 100 MG DAILY PO Levothyroxine Sodium 100 MCG VASU LY@0630 PO Atorvastatin Calcium 40 MG BEDTIME PO Mupiroc in 1 APPLIC BID NASAL Potassium Chloride/Dextrose/Sod Cl 1,000 ML Q12H IV Acetaminophen/Codeine Phosphate 2 UDT AB Q4H PRN PRN PO Acetaminophen/Codeine Phosphate 1 UDT AB Q4H PRN PRN PO Meperidine HCl 25 MG Q4H PRN PRN IM M eperidine HCl 50 MG Q4H PRN PRN IM Acetaminophen 650 MG Q8 H PRN PRN PO Acetaminophen 650 MG Q4H PRN PRN PO Benzocain e/Menthol 1 EACH Q2H PRN PRN MM (CKD) Bisacodyl 10 MG ASDI R PRN RECTAL Calcium Gluconate 1,000 MG ASDIR PRN IV S odium Chloride 100 MLNicardipine HCl 25 MG ASDIR PRN I V Sodium Chloride 250 MLNifedipine 10 MG Q4H PRN PRN SL Ondansetron HCl 4 MG Q8H PRN PRN IV Phenol 5 SPR AY Q2H PRN PRN MM Potassium Chloride 10 MEQ ASDIR PRN P O Magnesium Hydroxide 30 ML ASDIR PRN PO Zolpidem Tartrate 5 MG BEDTIME PRN PRN PO General appearance: aler t, awake, oriented, no acute distressWound/incision: Locat ion: right lateral neck incision Site condition: dres sing clean dry, dressing intact, mild swellingNeck: t enderness (right neck), Right neck swellingCardiovascular: BP/pulses equal bilat., normal heart sounds, reg ular rate rhythmRespiratory: aerating well, clear to auscu ltation, symmetric expansion, no distressAbdomen: soft, non-tender, normal bowel sounds, no distentionGenitourinary: no foleyExtremities: mo ves all, no edemaNeuro/SUPERINTENDENT DISTRIBUTION: alert, oriented X 3, CNII-XII intacte, normal gait, normal speech, nomotor deficits, no sensory deficits, Tongue is midline without deviation ResultsFindings/Data:Laboratory Tests 10/04 419 Chemistry Sodium (137 - 145 MMOL/L) 137 Potassi um (3.5 - 5.1 MMOL/L) 3.8 Chloride (98 - 107 MMOL/L) 94 L Carbon Dioxide (22 - 30 MMOL/L) 37 H BUN (7 - 17 MG/DL ) 8 Creatinine (0.52 - 1.04 MG/DL) 0.50 L Glomerular Filtr Rate > 60 Glucose (74 - 106 MG/DL) 105 Calcium ( 8.4 - 10.2 MG/DL) 9.0 Magnesium (1.6 - 2.3 MG/DL) 1.8 Laboratory Tests 10/04 419 Hematology WBC (3.8 - 9.8 K/MM3) 11.9 H RBC (3.58 - 4.97 M/MM3) 3.34 L Hgb (11.2 - 14.9 G/DL) 10.8 L Hct (33.2 - 43.5 %) 33.2 MCV ( 80.7 - 99.1 fL) 99 MCH (27.0 - 34.1 pg) 32.3 MCHC (32.2 - 35.7 %) 32.5 RDW (12.1 - 15.2 %) 14.9 Plt Count (129 - 368 K/MM3) 270 MPV (7.4 - 10.4 fl) 8.8 Neut % (Auto ) (43 - 75 %) 75.6 H Lymph % (Auto) (14 - 44 %) 10.5 L M malcolm % (Auto) (4 - 13 %) 12.9 Eos % (Auto) (0 - 6 %) 0 .5 Baso % (Auto) (0 - 2 %) 0.2 Neut # (Auto) (2.0 - 7.6 K/ mm3) 9.00 H Lymph # (Auto) (1.0 - 3.8 K/mm3) 1.25 Harlan # (Auto) (0.1 - 0.8 K/mm3) 1.54 H Eos # (Auto) (0.0 - 0.2 K/mm3) 0.06 Baso # (Auto) (0.0 - 0.2 K/mm3) 0.02 Immat ure Gran % (0.0 - 2.0 %) 0.3 Nucleated RBC % (0 - 1.0 %) 0.0 Nucleated RBCs # (Man) (0.0 - 0.1 K/mm3) 0.00 Di agnosis, Assessment PlanFree Text A P:This is a 72 Y/F wi th LITTLE stenosisS/p Right CEA-tongue is midline without deviation, left facial droop. Right facial swell ingOn statin/plavix/aspirinDVT prophylaxis-SCDs and TEDsEncourage IS and ambulationHTN- well control ledCM [facility] for [facility]: D/c planning home with [facility] today or dexter. when VS is stable and pt is ready. RN reported that pt desaturate to O2 sat 90%'s-95%' s while resting. Then after walking she desat 90%'s. Whi le sleeping pt O2 sat running between 88%-92%. Cons ulted CM for home oxygen to go home with. CM is following . Discussed with Dr. Cruz. Plan discussed with: patient, collaborating MD (Dr. Cruz) Electronically Si gned by Ladi Guido SENIOR HARDWARE DESIGN ENGINEER on 10/03/18 at 1236 Addendum 1: 10/03/18 1541 by Ladi Guido SENIOR HARDWARE DESIGN ENGINEER for Rohith Cruz MD 1520RN reported pt BP dropped SBP 80's-70's p t is asymptomatic, denies CP, dizzinessor headache. O rdered IV bolus NSS. BP came back up to 116/78. Will amadou nue to monitor. Family at the bedside. Will hold the pl an for discharge today. Discussed with Dr. Cruz. at 1543 RPT #:[id number] OF REPORTPRProg ress [id number]:59:00Z.[id number] lable for patient [id number]:43:28 2018-10-03 [id number]:59:00 [facility] 11:59:00 [facility] ([facility])Cardiovascular Surgery ProgREPORT#:[id number] REPORT STATUS: SignedDATE: 10/03/18 TIME: 1159 PATIENT: RACHEAL DIA UNIT #: [id number]#: [id number] ROOM/BED: [facility] 7-ADOB: [birth year] AGE: 72 SEX: F ATTEND: Rohith Cruz MDA AUTHOR: Ladi Guido NP * ALL e dits or amendments must be made on the electronic/comput er document * See AddendumGeneralPost-op: day 2 Status post:Right CEA SubjectivePatient reports:No: com plaints, nausea, vomiting, pain. Nursing reports:No: comp laints. Comments:seen pt OOB in the chairdenies SOB, CP, pain Review of SystemsConstitutional:Denies: chills, fatigue, fever, generalized weakness. Respiratory:Denies: NEGRO (dyspnea on exertion), SOB. Cardiovascular:Denie s: chest pain, NEGRO (dyspnea on exertion), edema, orthopne a. Objective Physical ExamVS/I O:Last Documented: R esult Date Time Pulse Ox 86 10/03 1136 Pulse 96 10/03 1136 Resp 27 10/03 1136 B/P 130/76 10/03 1101 B/P Mean 95 10/03 1101 O2 Delivery Room air 10/03 1043 Temp 36.7 10/03 1043 O2 Flow Rate 2.134587 10/03 0715 FiO2 28 2006 24 hour I O ending at 0700: 10/03 0700 10/02 190 0 Intake Total 160 315 Output Total Balance 160 315 Intak e, Oral 160 315 Number Voids 6 3 Patient Weight Weight ( lb): 156Weight (oz): 3.65Weight (kg): 70.76 Medicatio ns:Active Meds + DC'd Last 24 HrsFamotidine 20 MG Q12HR PO Nifedipine 10 MG Q4H PRN PRN SL Aspirin 81 MG DA SYBIL PO Clopidogrel Bisulfate 75 MG DAILY PO Hydrochloro thiazide 12.5 MG DAILY PO Isosorbide Mononitrate 30 MG DA SYBIL PO Losartan Potassium 100 MG DAILY PO Metoprolol Becerra ccinate 100 MG DAILY PO Levothyroxine Sodium 100 MCG VASU LY@0630 PO Atorvastatin Calcium 40 MG BEDTIME PO Mupiroc in 1 APPLIC BID NASAL Potassium Chloride/Dextrose/Sod Cl 1,000 ML Q12H IV Acetaminophen/Codeine Phosphate 2 UDT AB Q4H PRN PRN PO Acetaminophen/Codeine Phosphate 1 UDT AB Q4H PRN PRN PO Meperidine HCl 25 MG Q4H PRN PRN IM M eperidine HCl 50 MG Q4H PRN PRN IM Acetaminophen 650 MG Q8 H PRN PRN PO Acetaminophen 650 MG Q4H PRN PRN PO Benzocain e/Menthol 1 EACH Q2H PRN PRN MM (CKD) Bisacodyl 10 MG ASDI R PRN RECTAL Calcium Gluconate 1,000 MG ASDIR PRN IV S odium Chloride 100 MLNicardipine HCl 25 MG ASDIR PRN I V Sodium Chloride 250 MLNifedipine 10 MG Q4H PRN PRN SL Ondansetron HCl 4 MG Q8H PRN PRN IV Phenol 5 SPR AY Q2H PRN PRN MM Potassium Chloride 10 MEQ ASDIR PRN P O Magnesium Hydroxide 30 ML ASDIR PRN PO Zolpidem Tartrate 5 MG BEDTIME PRN PRN PO General appearance: aler t, awake, oriented, no acute distressWound/incision: Locat ion: right lateral neck incision Site condition: dres sing clean dry, dressing intact, mild swellingNeck: t enderness (right neck), Right neck swellingCardiovascular: BP/pulses equal bilat., normal heart sounds, reg ular rate rhythmRespiratory: aerating well, clear to auscu ltation, symmetric expansion, no distressAbdomen: soft, non-tender, normal bowel sounds, no distentionGenitourinary: no foleyExtremities: mo ves all, no edemaNeuro/SUPERINTENDENT DISTRIBUTION: alert, oriented X 3, CNII-XII intacte, normal gait, normal speech, nomotor deficits, no sensory deficits, Tongue is midline without deviation ResultsFindings/Data:Laboratory Tests 10/04 419 Chemistry Sodium (137 - 145 MMOL/L) 137 Potassi um (3.5 - 5.1 MMOL/L) 3.8 Chloride (98 - 107 MMOL/L) 94 L Carbon Dioxide (22 - 30 MMOL/L) 37 H BUN (7 - 17 MG/DL ) 8 Creatinine (0.52 - 1.04 MG/DL) 0.50 L Glomerular Filtr Rate > 60 Glucose (74 - 106 MG/DL) 105 Calcium ( 8.4 - 10.2 MG/DL) 9.0 Magnesium (1.6 - 2.3 MG/DL) 1.8 Laboratory Tests 10/04 419 Hematology WBC (3.8 - 9.8 K/MM3) 11.9 H RBC (3.58 - 4.97 M/MM3) 3.34 L Hgb (11.2 - 14.9 G/DL) 10.8 L Hct (33.2 - 43.5 %) 33.2 MCV ( 80.7 - 99.1 fL) 99 MCH (27.0 - 34.1 pg) 32.3 MCHC (32.2 - 35.7 %) 32.5 RDW (12.1 - 15.2 %) 14.9 Plt Count (129 - 368 K/MM3) 270 MPV (7.4 - 10.4 fl) 8.8 Neut % (Auto ) (43 - 75 %) 75.6 H Lymph % (Auto) (14 - 44 %) 10.5 L M malcolm % (Auto) (4 - 13 %) 12.9 Eos % (Auto) (0 - 6 %) 0 .5 Baso % (Auto) (0 - 2 %) 0.2 Neut # (Auto) (2.0 - 7.6 K/ mm3) 9.00 H Lymph # (Auto) (1.0 - 3.8 K/mm3) 1.25 Harlan # (Auto) (0.1 - 0.8 K/mm3) 1.54 H Eos # (Auto) (0.0 - 0.2 K/mm3) 0.06 Baso # (Auto) (0.0 - 0.2 K/mm3) 0.02 Immat ure Gran % (0.0 - 2.0 %) 0.3 Nucleated RBC % (0 - 1.0 %) 0.0 Nucleated RBCs # (Man) (0.0 - 0.1 K/mm3) 0.00 Di agnosis, Assessment PlanFree Text A P:This is a 72 Y/F wi th LITTLE stenosisS/p Right CEA-tongue is midline without deviation, left facial droop. Right facial swell ingOn statin/plavix/aspirinDVT prophylaxis-SCDs and TEDsEncourage IS and ambulationHTN- well control ledCM [facility]: D/c planning home with [facility] today or dexter. when VS is stable and pt is ready. RN reported that pt desaturate to O2 sat 90%'s-95%' s while resting. Then after walking she desat 90%'s. Whi le sleeping pt O2 sat running between 88%-92%. Cons ulted CM for home oxygen to go home with. CM is following . Discussed with Dr. Cruz. Plan discussed with: patient, collaborating MD (Dr. Cruz) Electronically Si gned by Ladi Guido SENIOR HARDWARE DESIGN ENGINEER on 10/03/18 at 1236 Addendum 1: 10/03/18 1541 by Ladi Guido SENIOR HARDWARE DESIGN ENGINEER for Rohith Cruz MD 1520RN reported pt BP dropped SBP 80's-70's p t is asymptomatic, denies CP, dizzinessor headache. O rdered IV bolus NSS. BP came back up to 116/78. Will amadou nue to monitor. Family at the bedside. Will hold the pl an for discharge today. Discussed with Dr. Cruz. at 1543 Addendum 2: 10/03/18 1622 by Hanny Guido SENIOR HARDWARE DESIGN ENGINEER for Rohith Cruz MD at 1623 RPT #:[id number] OF REPORTPRProgress [id number]:59:00Z.[id number] lable for patient [id number]:23:21 2018-10-03 [id number]:59:00 [facility] 11:59:00 [facility] ([facility])Cardiovascular Surgery ProgREPORT#:[id number] REPORT STATUS: SignedDATE: 10/03/18 TIME: 1159 PATIENT: RACHEAL DIA UNIT #: [id number]#: [id number] ROOM/BED: [facility] 7-ADOB: [birth year] AGE: 72 SEX: F ATTEND: Rohith Cruz MDA AUTHOR: Ladi Guido SENIOR HARDWARE DESIGN ENGINEER * ALL e dits or amendments must be made on the electronic/comput er document * See AddendumGeneralPost-op: day 2 Status post:Right CEA SubjectivePatient reports:No: com plaints, nausea, vomiting, pain. Nursing reports:No: comp laints. Comments:seen pt OOB in the chairdenies SOB, CP, pain Review of SystemsConstitutional:Denies: chills, fatigue, fever, generalized weakness. Respiratory:Denies: NEGRO (dyspnea on exertion), SOB. Cardiovascular:Denie s: chest pain, NEGRO (dyspnea on exertion), edema, orthopne a. Objective Physical ExamVS/I O:Last Documented: R esult Date Time Pulse Ox 86 10/03 1136 Pulse 96 10/03 1136 Resp 27 10/03 1136 B/P 130/76 10/03 1101 B/P Me an 95 10/03 1101 O2 Delivery Room air 10/03 1043 Temp 36.7 10/03 1043 O2 Flow Rate 2.636008 10/03 0715 FiO2 28 10/02 2006 24 hour I O ending at 0700: 10/03 0700 06/ 0 1900 Intake Total 160 315 Output Total Balance 160 31 5 Intake, Oral 160 315 Number Voids 6 3 Patient Weight We ight (lb): 156Weight (oz): 3.65Weight (kg): 70.76 Medications:Active Meds + DC'd Last 24 HrsFamoti dine 20 MG Q12HR PO Nifedipine 10 MG Q4H PRN PRN SL Asp irin 81 MG DAILY PO Clopidogrel Bisulfate 75 MG DAILY PO Hydrochlorothiazide 12.5 MG DAILY PO Isosorbide Mononitrate 30 MG DAILY PO Losartan Potassium 10 0 MG DAILY PO Metoprolol Succinate 100 MG DAILY PO Levothyroxine Sodium 100 MCG DAILY@0630 PO Atorv astatin Calcium 40 MG BEDTIME PO Mupirocin 1 APPLIC BID NASAL Potassium Chloride/Dextrose/Sod Cl 1,000 ML Q12H IV Acetaminophen/Codeine Phosphate 2 UDTAB Q4H PRN PRN PO Acetaminophen/Codeine Phosphate 1 UDTAB Q4H PRN PRN PO Meperidine HCl 25 MG Q4H PRN PRN IM Meperidine H Cl 50 MG Q4H PRN PRN IM Acetaminophen 650 MG Q8H PRN PRN PO Acetaminophen 650 MG Q4H PRN PRN PO Benzocaine/M enthol 1 EACH Q2H PRN PRN MM (CKD) Bisacodyl 10 MG ASDIR PRN RECTAL Calcium Gluconate 1,000 MG ASDIR PRN IV S odium Chloride 100 MLNicardipine HCl 25 MG ASDIR PRN I V Sodium Chloride 250 MLNifedipine 10 MG Q4H PRN PRN SL Ondansetron HCl 4 MG Q8H PRN PRN IV Phenol 5 SPR AY Q2H PRN PRN MM Potassium Chloride 10 MEQ ASDIR PRN P O Magnesium Hydroxide 30 ML ASDIR PRN PO Zolpidem Tartrate 5 MG BEDTIME PRN PRN PO General appearance: aler t, awake, oriented, no acute distressWound/incision: Locat ion: right lateral neck incision Site condition: dres sing clean dry, dressing intact, mild swellingNeck: t enderness (right neck), Right neck swellingCardiovascular: BP/pulses equal bilat., normal heart sounds, reg ular rate rhythmRespiratory: aerating well, clear to auscu ltation, symmetric expansion, no distressAbdomen: soft, non-tender, normal bowel sounds, no distentionGenitourinary: no foleyExtremities: mo ves all, no edemaNeuro/SUPERINTENDENT DISTRIBUTION: alert, oriented X 3, CNII-XII intacte, normal gait, normal speech, nomotor deficits, no sensory deficits, Tongue is midline without deviation ResultsFindings/Data:Laboratory Tests 10/03 042 0 Chemistry Sodium (137 - 145 MMOL/L) 137 Potassiu m (3.5 - 5.1 MMOL/L) 3.8 Chloride (98 - 107 MMOL/L) 94 L Carbon Dioxide (22 - 30 MMOL/L) 37 H BUN (7 - 17 MG/DL) 8 Creatinine (0.52 - 1.04 MG/DL) 0.50 L Glomerular Filtr Rate > 60 Glucose (74 - 106 MG/DL) 105 Calcium (8.4 - 10.2 MG/DL) 9.0 Magnesium (1.6 - 2.3 MG/DL) 1.8 Laboratory Tests 10/03 0420 Hematology WBC (3.8 - 9.8 K/MM3) 11.9 H RBC (3.58 - 4.97 M/MM3) 3.34 L Hg b (11.2 - 14.9 G/DL) 10.8 L Hct (33.2 - 43.5 %) 33.2 MCV ( 80.7 - 99.1 fL) 99 MCH (27.0 - 34.1 pg) 32.3 MCHC (32. 2 - 35.7 %) 32.5 RDW (12.1 - 15.2 %) 14.9 Plt Count (129 - 368 K/MM3) 270 MPV (7.4 - 10.4 fl) 8.8 Neut % (Auto) (43 - 75 %) 75.6 H Lymph % (Auto) (14 - 44 %) 10.5 L Mon o % (Auto) (4 - 13 %) 12.9 Eos % (Auto) (0 - 6 %) 0 .5 Baso % (Auto) (0 - 2 %) 0.2 Neut # (Auto) (2.0 - 7.6 K/ mm3) 9.00 H Lymph # (Auto) (1.0 - 3.8 K/mm3) 1.25 Harlan # (Auto) (0.1 - 0.8 K/mm3) 1.54 H Eos # (Auto) (0.0 - 0.2 K/mm3) 0.06 Baso # (Auto) (0.0 - 0.2 K/mm3) 0.02 Immat ure Gran % (0.0 - 2.0 %) 0.3 Nucleated RBC % (0 - 1.0 %) 0.0 Nucleated RBCs # (Man) (0.0 - 0.1 K/mm3) 0.00 D iagnosis, Assessment PlanFree Text A P:This is a 72 Y/F wi th LITTLE stenosisS/p Right CEA-tongue is midline without deviation, left facial droop. Right facial swell ingOn statin/plavix/aspirinDVT prophylaxis-SCDs and TEDsEncourage IS and ambulationHTN- well control ledCM [facility]: D/c planning [facility] with [facility] today or dexter. when VS is stable and pt is ready. RN reported that pt desaturate to O2 sat 90%'s-95%' s while resting. Then after walking she desat 90%'s. Whi le sleeping pt O2 sat running between 88%-92%. Cons ulted CM for home oxygen to go home with. CM is following . Discussed with Dr. Cruz. Plan discussed with: patient, collaborating MD (Dr. Cruz) Electronically Si gned by Ladi Guido NP on 10/03/18 at 1236 Addendum 1: 10/03/18 1541 by Ladi Guido [employer]WARE DESIGN ENGINE[employer] [id number] repo rted pt BP dropped SBP 80's-70's pt is asymptomatic, den ies CP, dizzinessor headache. Ordered IV bolus NSS. BP c guevara back up to 116/78. Will continue to monitor. Family a t the bedside. Will hold the plan for discharge today. Discussed with Dr. Cruz. Electronically Leah d by Ladi Guido NP on 10/03/18 at 1543Electroni rosangela Signed by Rohith Cruz MD on 10/06/18 at 192 7 Addendum 2: 10/03/18 1622 by Ladi Guido NP at 1623 at 1927 RPT #:[id number] OF REPORTPRProgress [id number].[id number] lable for patient [id number]:28:07 2018-10-03 [id number]:59:00 [facility] 11:59:00 [facility] ([facility])Cardiovascular Surgery ProgREPORT#:[id number] REPORT STATUS: SignedDATE: 10/03/18 TIME: 1159 PATIENT: RACHEAL DIA UNIT #: [id number]#: [id number] ROOM/BED: [facility] 7-ADOB: [birth year] AGE: 72 SEX: F ATTEND: Rohith Cruz AUTHOR: Ladi Guido NP * ALL e dits or amendments must be made on the electronic/comput er document * See AddendumGeneralPost-op: day 2Status post:Right CEA SubjectivePatient reports:No: com plaints, nausea, vomiting, pain. Nursing reports:No: comp laints. Comments:seen pt OOB in the chairdenies SOB, CP, pain Review of SystemsConstitutional:Denies: chills, fatigue, fever, generalized weakness. Respiratory:Denies: NEGRO (dyspnea on exertion), SOB. Cardiovascular:Denie s: chest pain, NEGRO (dyspnea on exertion), edema, orthopne a. Objective Physical ExamVS/I O:Last Documented: R esult Date Time Pulse Ox 86 10/03 1136 Pulse 96 10/03 1136 Resp 27 10/03 1136 B/P 130/76 10/03 1101 B/P Me an 95 10/03 1101 O2 Delivery Room air 10/03 1043 Temp 36.7 10/03 1043 O2 Flow Rate 2.415848 10/03 0715 FiO 2 28 10/02 2005 24 hour I O ending at 0700: 10/03 070 0 10/02 1900 Intake Total 160 315 Output Total Balance 1 60 315 Intake, Oral 160 315 Number Voids 6 3 Patient W eight Weight (lb): 156Weight (oz): 3.65Weight (kg): 70 .76 Medications:Active Meds + DC'd Last 24 HrsFamoti dine 20 MG Q12HR PO Nifedipine 10 MG Q4H PRN PRN SL Aspi rin 81 MG DAILY PO Clopidogrel Bisulfate 75 MG DAILY PO Hydrochlorothiazide 12.5 MG DAILY PO Isosorbide Mononitrate 30 MG DAILY PO Losartan Potassium 10 0 MG DAILY PO Metoprolol Succinate 100 MG DAILY PO Levothyroxine Sodium 100 MCG DAILY@0630 PO Atorv astatin Calcium 40 MG BEDTIME PO Mupirocin 1 APPLIC BID NASAL Potassium Chloride/Dextrose/Sod Cl 1,000 ML Q12H IV Acetaminophen/Codeine Phosphate 2 UDTAB Q4H PRN PRN PO Acetaminophen/Codeine Phosphate 1 UDTAB Q4H PRN PRN PO Meperidine HCl 25 MG Q4H PRN PRN IM Meperidine H Cl 50 MG Q4H PRN PRN IM Acetaminophen 650 MG Q8H PRN PRN PO Acetaminophen 650 MG Q4H PRN PRN PO Benzocaine/M enthol 1 EACH Q2H PRN PRN MM (CKD) Bisacodyl 10 MG ASDIR PRN RECTAL Calcium Gluconate 1,000 MG ASDIR PRN IV S odium Chloride 100 MLNicardipine HCl 25 MG ASDIR PRN I V Sodium Chloride 250 MLNifedipine 10 MG Q4H PRN PRN SL Ondansetron HCl 4 MG Q8H PRN PRN IV Phenol 5 SPR AY Q2H PRN PRN MM Potassium Chloride 10 MEQ ASDIR PRN P O Magnesium Hydroxide 30 ML ASDIR PRN PO Zolpidem Tartrate 5 MG BEDTIME PRN PRN PO General appearance: aler t, awake, oriented, no acute distressWound/incision: Locat ion: right lateral neck incision Site condition: dres sing clean dry, dressing intact, mild swellingNeck: t enderness (right neck), Right neck swellingCardiovascular: BP/pulses equal bilat., normal heart sounds, reg ular rate rhythmRespiratory: aerating well, clear to auscu ltation, symmetric expansion, no distressAbdomen: soft, non-tender, normal bowel sounds, no distentionGenitourinary: no foleyExtremities: mo ves all, no edemaNeuro/SUPERINTENDENT DISTRIBUTION: alert, oriented X 3, CNII-XII intacte, normal gait, normal speech, nomotor deficits, no sensory deficits, Tongue is midline without deviation ResultsFindings/Data:Laboratory Tests 10/03 042 0 Chemistry Sodium (137 - 145 MMOL/L) 137 Potassi um (3.5 - 5.1 MMOL/L) 3.8 Chloride (98 - 107 MMOL/L) 94 L Carbon Dioxide (22 - 30 MMOL/L) 37 H BUN (7 - 17 MG/DL) 8 Creatinine (0.52 - 1.04 MG/DL) 0.50 L Glomerular Filtr Rate > 60 Glucose (74 - 106 MG/DL) 105 Calcium ( 8.4 - 10.2 MG/DL) 9.0 Magnesium (1.6 - 2.3 MG/DL) 1.8 Laboratory Tests 10/03 0420 Hematology WBC (3.8 - 9.8 K/MM3) 11.9 H RBC (3.58 - 4.97 M/MM3) 3.34 L Hg b (11.2 - 14.9 G/DL) 10.8 L Hct (33.2 - 43.5 %) 33.2 MCV ( 80.7 - 99.1 fL) 99 MCH (27.0 - 34.1 pg) 32.3 MCHC (32.2 - 35.7 %) 32.5 RDW (12.1 - 15.2 %) 14.9 Plt Count (129 - 368 K/MM3) 270 MPV (7.4 - 10.4 fl) 8.8 Neut % (Auto) (43 - 75 %) 75.6 H Lymph % (Auto) (14 - 44 %) 10.5 L Harlan % (Auto) (4 - 13 %) 12.9 Eos % (Auto) (0 - 6 %) 0.5 Baso % (Auto) (0 - 2 %) 0.2 Neut # (Auto) (2.0 - 7.6 K/mm3) 9. 00 H Lymph # (Auto) (1.0 - 3.8 K/mm3) 1.25 Harlan # (Au to) (0.1 - 0.8 K/mm3) 1.54 H Eos # (Auto) (0.0 - 0.2 K/mm 3) 0.06 Baso # (Auto) (0.0 - 0.2 K/mm3) 0.02 Immature Gr an % (0.0 - 2.0 %) 0.3 Nucleated RBC % (0 - 1.0 %) 0.0 Nuc leated RBCs # (Man) (0.0 - 0.1 K/mm3) 0.00 Diagnosis, A ssessment PlanFree Text A P:This is a 72 Y/F with LITTLE chano nosisS/p Right CEA-tongue is midline without deviation, l eft facial droop. Right facial swellingOn statin/plavix/aspirinDVT prophylaxis-SCDs and TEDsEncourage IS and ambulationHTN- well control ledCM consult [facility]: D/c planning home with [facility] today or dexter. when VS is stable and pt is ready. RN reported that pt desaturate to O2 sat 90%'s-95%' s while resting. Then after walking she desat 90%'s. Whi le sleeping pt O2 sat running between 88%-92%. Cons ulted CM for home oxygen to go home with. CM is following . Discussed with Dr. Cruz. Plan discussed with: patient, collaborating MD (Dr. Cruz) Electronically Si gned by Ladi Guido NP on 10/03/18 at 1236Electroni rosangela Signed by Rohith Cruz MD on 10/06/18 at 193 1 Addendum 1: 10/03/18 1541 by Ladi Guido SENIOR HARDWARE DESIGN ENGINEER 1520RN reported pt BP dropped SBP 80's-70's pt is asymp tomatic, denies CP, dizzinessor headache. Ordered IV bolu s NSS. BP came back up to 116/78. Will continue to monitor . Family at the bedside. Will hold the plan for discharge today. Discussed with Dr. Cruz. Electronically Leah d by Ladi Guido NP on 10/03/18 at 1543Electroni rosangela Signed by Rohith Cruz MD on 10/06/18 at 192 7 Addendum 2: 10/03/18 1622 by Ladi Guido NP at 1623 at 1927 RPT #:[id number] OF REPORTPRProgress [id number]:59:00Z.[id number] lable for patient [id number]:31:57 2018-10-02 [id number]:27:00 [facility] 18:27:00 [facility] ([facility])Cardiology Progress NoteREPORT#:[id number] REPORT STATUS: SignedDATE: 10/02/18 TIME: 1826 PATIENT: RACHEAL DIA UNIT #: [id number]#: [id number] ROOM/BED: [place] [address]-ADOB: [birth year] AGE: 72 SEX: F ATTEND: Rohith Cruz MDA AUTHOR: Supa Kelly MD * ALL e dits or amendments must be made on the electronic/comput er document * SubjectivePatient reports:No: chest p ain, palpitations, shortness of breath. Objective Gen eralVS/I O:24 hour I O ending at 0700: 10/02 0700 10/01 1 900 Intake Total 100 980.00 Output Total 750 Balanc e 100 230.00 Intake, IV 620.00 Intake, Oral 100 360 N umber Voids 2 1 Output, Urine 750 Patient 70.76 kg Aleks ght Vital Signs: Date Time Temp Pulse Resp B/P B/P Pulse O 2 O2 Flow FiO2 Mean Ox Delivery Rate 10/02 1500 83 16 145/ 69 97 98 10/02 1430 76 15 130/63 90 100 10/02 1400 77 18 162/74 106 95 10/02 1330 92 156/74 106 89 10/02 1300 75 26 140/65 92 95 10/02 1230 66 19 105/59 77 99 10/02 1215 100 Nasal 2.458677 cannula 10/02 1200 67 18 99/60 7 4 98 10/02 1130 72 23 102/59 76 97 10/02 1100 78 110/ 73 88 98 10/02 1045 17 10/02 1030 68 16 132/67 93 99 06/2 0 1000 70 23 126/71 93 94 10/02 0930 80 148/67 97 72 06/20 0900 80 142/102 117 06/20 0845 20 06/20 0830 66 19 128/ 65 91 06/20 0800 84 19 146/76 103 06/20 0730 97.6 06/2 0 0730 Nasal 2.162433 cannula / 0730 77 147/76 106 91 06/20 0700 71 26 152/74 105 98 06/20 0530 60 16 108/5 5 78 100 06/20 0500 60 13 127/73 94 100 06/20 0430 59 13 108/62 79 100 06/20 0400 97.8 /20 0346 63 15 134/79 101 100 06/20 0300 83 17 97 06/20 0230 71 28 131/67 93 96 06/2 0 0200 78 17 137/77 102 95 /20 0130 79 17 95 06/20 0100 72 19 130/74 97 98 06/20 0030 59 23 112/55 75 99 06/20 0000 97.8 10/02 0000 74 40 122/61 86 99 10/01 2330 7 0 16 129/62 89 97 / 2300 71 15 121/67 89 98 / 2230 69 16 101/55 73 98 06/19 2220 Nasal 3.503559 cannu la 10/01 2200 97.7 10/01 2200 73 20 136/68 96 97 / 21 50 82 26 97 10/01 1900 97.8 10/01 1900 71 18 97/54 70 96 06/ 1849 71 17 95 / 1845 86 34 96 10/01 1830 73 16 109/59 81 95 Patient Weight Weight (lb): 156Weight (oz) : 3.65Weight (kg): 70.76 Medications:Active Meds + DC'd Last 24 HrsFamotidine 20 MG Q12HR PO Nifedipine 10 MG Q4H PRN PRN SL Aspirin 81 MG DAILY PO Clopidogrel Bi sulfate 75 MG DAILY PO Hydrochlorothiazide 12.5 MG DAILY PO Isosorbide Mononitrate 30 MG DAILY PO Losartan P otassium 100 MG DAILY PO Metoprolol Succinate 100 MG HILDA Y PO Levothyroxine Sodium 100 MCG DAILY@0630 PO Atorv astatin Calcium 40 MG BEDTIME PO Mupirocin 1 APPLIC BID NASAL Potassium Chloride/Dextrose/Sod Cl 1,000 ML Q12H IV Acetaminophen/Codeine Phosphate 2 UDTAB Q4H PRN PRN PO Acetaminophen/Codeine Phosphate 1 UDTAB Q4H PRN PRN PO Meperidine HCl 25 MG Q4H PRN PRN IM Meperidine H Cl 50 MG Q4H PRN PRN IM Acetaminophen 650 MG Q8H PRN PRN PO Acetaminophen 650 MG Q4H PRN PRN PO Benzocaine/M enthol 1 EACH Q2H PRN PRN MM (CKD) Bisacodyl 10 MG ASDIR PRN RECTAL Calcium Gluconate 1,000 MG ASDIR PRN IV S odium Chloride 100 MLNicardipine HCl 25 MG ASDIR PRN I V Sodium Chloride 250 MLNifedipine 10 MG Q4H PRN PRN SL Ondansetron HCl 4 MG Q8H PRN PRN IV Phenol 5 SPR AY Q2H PRN PRN MM Potassium Chloride 10 MEQ ASDIR PRN P O Magnesium Hydroxide 30 ML ASDIR PRN PO Zolpidem Tartrate 5 MG BEDTIME PRN PRN PO Physical ExamGeneral ap pearance: alert, awake, orientedHead/Eyes: atraumatic, normocephalicENT: moist mucosal membranesNeck: n o JVDCardiovascular: CV assessment: regular rate a nd rhythmRespiratory: clear to auscultation, no distressLower extremity: LE assessment: no edemaMusculoskeletal: full range of motionNeuro/ SUPERINTENDENT DISTRIBUTION: alert, oriented X 3, CN II-XII intactSkin: dry, intactPsychiatry: normal affect, normal judgment /insight, normal mood ResultsFindings/Data:Laboratory Test s 10/02 514 Chemistry Sodium (137 - 145 MMOL/L) 136 L P otassium (3.5 - 5.1 MMOL/L) 3.6 Chloride (98 - 107 MMOL/L ) 95 L Carbon Dioxide (22 - 30 MMOL/L) 33 H BUN (7 - 17 MG/DL) 8 Creatinine (0.52 - 1.04 MG/DL) 0.60 Glomerular Filtr Rate > 60 Glucose (74 - 106 MG/DL) 110 H Calcium (8.4 - 10.2 MG/DL) 8.7 Magnesium (1.6 - 2.3 MG/DL) 2.1 Laboratory Tests 10/02 514 Hematology WBC (3.8 - 9.8 K/MM3) 11.6 H RBC (3.58 - 4.97 M/MM3) 3.39 L Hgb (11.2 - 14.9 G/DL) 11.0 L Hct (33.2 - 43.5 %) 33.6 MCV ( 80.7 - 99.1 fL) 99 MCH (27.0 - 34.1 pg) 32.4 MCHC (32. 2 - 35.7 %) 32.7 RDW (12.1 - 15.2 %) 15.1 Plt Count (129 - 368 K/MM3) 274 MPV (7.4 - 10.4 fl) 8.8 Neut % (Auto) (43 - 75 %) 75.7 H Lymph % (Auto) (14 - 44 %) 11.9 L Mon o % (Auto) (4 - 13 %) 11.2 Eos % (Auto) (0 - 6 %) 0. 7 Baso % (Auto) (0 - 2 %) 0.2 Neut # (Auto) (2.0 - 7.6 K/ mm3) 8.79 H Lymph # (Auto) (1.0 - 3.8 K/mm3) 1.38 Harlan # (Auto) (0.1 - 0.8 K/mm3) 1.30 H Eos # (Auto) (0.0 - 0.2 K/mm3) 0.08 Baso # (Auto) (0.0 - 0.2 K/mm3) 0.02 Immat ure Gran % (0.0 - 2.0 %) 0.3 Nucleated RBC % (0 - 1.0 %) 0.0 Nucleated RBCs # (Man) (0.0 - 0.1 K/mm3) 0.00 La boratory Tests 10/02 0515 Chemistry Magnesium (1.6 - 2.3 MG/DL) 2.1 Diagnosis, Assessment Plan Free Text DxA P N otesFree Text DxA P Notes:IMP: Carotid vascular disease s /p right CEA CAD - stable PLAN: Ambulate Continue current medications. at 1620 RPT #:[id number] OF REPORTPRProgress [id number]:27:00Z.[id number] lable for patient [id number]:21:05 2018-10-02 [id number]:22:00 [facility] 15:22:00 [facility] ([facility])Hospitalist Progress NoteREPORT#:[id number] REPORT STATUS: SignedDATE: 10/02/18 TIME: 152 PATIENT: RACHEAL DIA UNIT #: [id number]#: [id number] [address] [birth year] AGE: 72 SEX: F ATTEND: Rohith Cruz MDA AUTHOR: Mariana Humphrey MD * ALL edits or amendments must be made on the electronic/comput er document * SubjectiveChief Complaint:patient is doing well. Review of SystemsAll systems rev neg: exce pt as marked Objective GeneralVS/I O:Vital Signs: Date Time Temp Pulse Resp B/P B/P Pulse O2 O2 Flow FiO2 Me an Ox Delivery Rate 10/02 1215 100 Nasal 2.248142 axel ed 10/02 1000 70 23 126/71 93 94 06/20 0930 80 148/67 97 72 06/20 0900 80 142/102 117 /20 0845 20 /20 0830 66 19 128/65 91 06/20 0800 84 19 146/76 103 06/20 0730 97.6 06/20 0730 Nasal 2.229801 cannula 10/02 0730 77 147/76 106 91 06/20 0700 71 26 152/74 105 98 06/20 0530 60 16 108/55 78 100 06/20 0500 60 13 127/73 94 100 06/ 20 0430 59 13 108/62 79 100 06/20 0400 97.8 06/20 0346 6 3 15 134/79 101 100 06/20 0300 83 17 97 06/20 0230 71 28 131/67 93 96 06/20 0200 78 17 137/77 102 95 06/ 20 0130 79 17 95 06/20 0100 72 19 130/74 97 98 06/20 003 0 59 23 112/55 75 99 06/20 0000 97.8 06/20 0000 74 40 1 22/61 86 99 06/19 2330 70 16 129/62 89 97 10/01 2300 71 1 5 121/67 89 98 10/01 2230 69 16 101/55 73 98 10/01 2220 N flash 3.408662 cannula 10/01 2200 97.7 10/01 2200 73 2 0 136/68 96 97 10/01 2150 82 26 97 10/01 1900 97.8 10/01 1900 71 18 97/54 70 96 10/01 1849 71 17 95 10/01 1845 86 34 96 10/01 1830 73 16 109/59 81 95 10/01 1815 75 19 9 6 10/01 1800 87 32 126/69 92 96 10/01 1745 80 25 96 1730 80 25 119/59 83 95 10/01 1715 82 18 95 10/01 170 8 83 24 96 10/01 1700 89 28 142/73 102 98 10/01 1645 80 16 100 10/01 1630 77 16 133/70 96 98 10/01 1615 78 15 100 10/01 1600 90 22 153/81 109 97 10/01 1545 79 15 99 1530 82 15 165/74 107 99 24 hour I O ending at 0700: 10/02 0700 10/01 1900 Intake Total 100 980.00 Output T otal 750 Balance 100 230.00 Intake, IV 620.00 Intake, Ora l 100 360 Number Voids 2 1 Output, Urine 750 Patient 70.7 6 kg Weight Medications:Active Meds + DC'd Last 24 HrsFamotidine 20 MG Q12HR PO Nifedipine 10 MG Q4 H PRN PRN SL Aspirin 81 MG DAILY PO Clopidogrel Bisulfate 75 MG DAILY PO Hydrochlorothiazide 12.5 MG DAILY PO Is osorbide Mononitrate 30 MG DAILY PO Losartan Potassium 10 0 MG DAILY PO Metoprolol Succinate 100 MG DAILY PO Levothyroxine Sodium 100 MCG DAILY@0630 PO Atorv astatin Calcium 40 MG BEDTIME PO Mupirocin 1 APPLIC BID NASAL Potassium Chloride/Dextrose/Sod Cl 1,000 ML Q12H IV Acetaminophen/Codeine Phosphate 2 UDTAB Q4H PRN PRN PO Acetaminophen/Codeine Phosphate 1 UDTAB Q4H PRN PRN PO Meperidine HCl 25 MG Q4H PRN PRN IM Meperidine H Cl 50 MG Q4H PRN PRN IM Acetaminophen 650 MG Q8H PRN PRN PO Acetaminophen 650 MG Q4H PRN PRN PO Benzocaine/M enthol 1 EACH Q2H PRN PRN MM (CKD) Bisacodyl 10 MG ASDIR PRN RECTAL Calcium Gluconate 1,000 MG ASDIR PRN IV S odium Chloride 100 MLNicardipine HCl 25 MG ASDIR PRN I V Sodium Chloride 250 MLNifedipine 10 MG Q4H PRN PRN SL Ondansetron HCl 4 MG Q8H PRN PRN IV Phenol 5 SPR AY Q2H PRN PRN MM Potassium Chloride 10 MEQ ASDIR PRN P O Magnesium Hydroxide 30 ML ASDIR PRN PO Zolpidem Tartrate 5 MG BEDTIME PRN PRN PO Physical ExamGeneral jason earance: alert, awakeHead/Eyes: EOMI, PERRLNeck: right si de of neck dressing intactCardiovascular: normal heart sounds, regular rate rhythmRespiratory: aerating well, c lear to auscultationAbdomen: non-tender, normal bowel soundsMusculoskeletal: normal inspectionPsychiat ry: normal affect, normal judgment/insight ResultsFindings/Data:Laboratory Tests 10/02 514 Chemistry Sodium (137 - 145 MMOL/L) 136 L Potass ium (3.5 - 5.1 MMOL/L) 3.6 Chloride (98 - 107 MMOL/L) 95 L Carbon Dioxide (22 - 30 MMOL/L) 33 H BUN (7 - 17 MG/DL) 8 Creatinine (0.52 - 1.04 MG/DL) 0.60 Glomerular F iltr Rate > 60 Glucose (74 - 106 MG/DL) 110 H Calcium (8.4 - 10.2 MG/DL) 8.7 Magnesium (1.6 - 2.3 MG/DL) 2.1 Labor atory Tests 10/02 514 Hematology WBC (3.8 - 9.8 K/MM 3) 11.6 H RBC (3.58 - 4.97 M/MM3) 3.39 L Hgb (11.2 - 14.9 G/DL) 11.0 L Hct (33.2 - 43.5 %) 33.6 MCV (80.7 - 99. 1 fL) 99 MCH (27.0 - 34.1 pg) 32.4 MCHC (32.2 - 35.7 %) 32.7 RDW (12.1 - 15.2 %) 15.1 Plt Count (129 - 368 K/MM3) 274 MPV (7.4 - 10.4 fl) 8.8 Neut % (Auto) (43 - 75 %) 75 .7 H Lymph % (Auto) (14 - 44 %) 11.9 L Harlan % (Auto) (4 - 13 %) 11.2 Eos % (Auto) (0 - 6 %) 0.7 Baso % (Auto) (0 - 2 %) 0.2 Neut # (Auto) (2.0 - 7.6 K/mm3) 8.79 H L ymph # (Auto) (1.0 - 3.8 K/mm3) 1.38 Harlan # (Auto) (0.1 - 0.8 K/mm3) 1.30 H Eos # (Auto) (0.0 - 0.2 K/mm3) 0. 08 Baso # (Auto) (0.0 - 0.2 K/mm3) 0.02 Immature Gran % (0 .0 - 2.0 %) 0.3 Nucleated RBC % (0 - 1.0 %) 0.0 Nucleated RBCs # (Man) (0.0 - 0.1 K/mm3) 0.00 Diagnosis, Assessme nt Plan Free Text DxA P NotesFree text DxA P notes: Diag nosis, Assessment Plan pt is 72 y/o female with h/o CAD and stent , HTN, HLD, hypothyroidism underwent Proce dures performed:Right carotid endarterectomy with gricelda shield patch arterioplasty. pt is admitted for post op care. plan: contienu treatment per dr cruz and kristin ahmadi clinical recovery. 10/01/18: blood pressure becam e uncontrolled requiring restarting of nicardipine drip. resume home medications and monitor for bp contr ol. 10/02/18: patient is doing better, ambulating in hallway. blood pressure is better controlled. transfer ou t of icu. Quality MedicationsCurrent medication review:I a ttest that the foregoing medication list in the medica l record is true, accurate, and complete to the best of m y knowledge. Advanced Care Plan 65 or OlderDiscuss ed with: patient, surrogate decis. makerDiscussion includ ed: code status (full code) Tobacco Use/CounselingTobacco use/counseling: non tobacco user HTN Screening/Follow-upB/P assess/follow-up: pre-exi sting hx of HTN at 1526 RPT #:[id number] OF REPORTPRProgress [id number]:22:00Z.[id number] lable for patient [id number]:27:05 2018-10-02 [id number]:58:00 [facility] 09:58:00 [facility]Cardiovascular Surgery ProgREPORT#:[id number] REPORT STATUS: SignedDATE: 10/02/18 TIME: 0958 PATIENT: RACHEAL DIA UNIT #: [id number]#: [id number] ROOM/BED: [facility] 07-ADOB: [birth year] AGE: 72 SEX: F ATTEND: Rohith Cruz [facility] AUTHOR: Billie Valadez NP edits or amendments must be made on the electronic/com puter document * GeneralPost-op: day 2Status post:Righ t CEA SubjectivePatient reports:No: complaints. Commen ts:Seen sitting on the chair at bedsideDenies cp or sobR eports right neck tenderness and numbness Tongue is mid line without deviation, tongue is midline, left facia l droop. left IJ CVC Review of SystemsConstitutional:Yousuf es: chills, fatigue, fever, generalized weakness. Respiratory:Denies: NEGRO (dyspnea on exertion), S OB. Cardiovascular:Denies: chest pain, NEGRO (dyspnea on exertion), edema, orthopnea, palpitations. Objec tive Physical ExamVS/I O:Last Documented: Result Date Time Temp 97.6 10/02 0730 Pulse Ox 98 10/02 0700 B/P 152/74 10/02 0700 B/P Mean 105 10/02 0700 Pulse 71 06/2 0 0700 Resp 26 10/02 0700 O2 Delivery Nasal cannula 2220 O2 Flow Rate 3.313092 10/01 2220 FiO2 28 10/01 1442 24 hour I O ending at 0700: 10/02 0700 10/01 1900 I ntake Total 100 980.00 Output Total 750 Balance 100 2 30.00 Intake, IV 620.00 Intake, Oral 100 360 Number V oids 2 1 Output, Urine 750 Patient 70.76 kg Weight Patie nt Weight Weight (lb): 156Weight (oz): 3.65Weight (kg): 70 .76 Medications:Active Meds + DC'd Last 24 HrsFamoti dine 20 MG Q12HR PO Nifedipine 10 MG Q4H PRN PRN SL Aspi rin 81 MG DAILY PO Clopidogrel Bisulfate 75 MG DAILY PO Hydrochlorothiazide 12.5 MG DAILY PO Isosorbide Mononitrate 30 MG DAILY PO Losartan Potassium 1 00 MG DAILY PO Metoprolol Succinate 100 MG DAILY PO Levothyroxine Sodium 100 MCG DAILY@0630 PO Atorv astatin Calcium 40 MG BEDTIME PO Famotidine 20 MG Q12HR IV (DC) Mupirocin 1 APPLIC BID NASAL Potassium Chloride/Dextrose/Sod Cl 1,000 ML Q12H IV Acetaminophen/Codeine Phosphate 2 UDTAB Q4H PRN PRN PO Acetaminophen/Codeine Phosphate 1 UDTAB Q4H PRN PRN PO Meperidine HCl 25 MG Q4H PRN PRN IM Meperidine H Cl 50 MG Q4H PRN PRN IM Acetaminophen 650 MG Q8H PRN PRN PO Acetaminophen 650 MG Q4H PRN PRN PO Benzocaine/M enthol 1 EACH Q2H PRN PRN MM (CKD) Bisacodyl 10 MG ASDIR PRN RECTAL Calcium Gluconate 1,000 MG ASDIR PRN IV S odium Chloride 100 MLNicardipine HCl 25 MG ASDIR PRN I V Sodium Chloride 250 MLNifedipine 10 MG Q4H PRN PRN SL Ondansetron HCl 4 MG Q8H PRN PRN IV Phenol 5 SPR AY Q2H PRN PRN MM Potassium Chloride 10 MEQ ASDIR PRN P O Magnesium Hydroxide 30 ML ASDIR PRN PO Zolpidem Tartrate 5 MG BEDTIME PRN PRN PO General appearance: aler t, awake, oriented, no acute distressWound/incision: Locat ion: Right neck Site condition: dressing clean dry, d ressing intact, no drainageNeck: tenderness (right neck) , Right neck swellingCardiovascular: BP/pulses equal mariajose at., normal heart sounds, regular rate rhythmRespirat ory: aerating well, clear to auscultation, symmetric expansion, no distressAbdomen: soft, non-tender, normal bowel sounds, no distentionGenitourinary: no foleyExtremities: moves all, no edemaNeuro/SUPERINTENDENT DISTRIBUTION: alert, oriented X 3, CNII-XII intacte, normal gait, nor mal speech, nomotor deficits, no sensory deficits, T ongue is midline without deviation ResultsFindings/Data:L aboratory Tests 10/02 514 Chemistry Sodium (137 - 145 MM OL/L) 136 L Potassium (3.5 - 5.1 MMOL/L) 3.6 Chloride (98 - 107 MMOL/L) 95 L Carbon Dioxide (22 - 30 MMOL/L) 33 H BUN (7 - 17 MG/DL) 8 Creatinine (0.52 - 1.04 MG/DL) 0. 60 Glomerular Filtr Rate > 60 Glucose (74 - 106 MG/ DL) 110 H Calcium (8.4 - 10.2 MG/DL) 8.7 Magnesium (1.6 - 2.3 MG/DL) 2.1 Laboratory Tests 10/02 0415 Hematolo gy WBC (3.8 - 9.8 K/MM3) 11.6 H RBC (3.58 - 4.97 M/MM3) 3.39 L Hgb (11.2 - 14.9 G/DL) 11.0 L Hct (33.2 - 43.5 % ) 33.6 MCV (80.7 - 99.1 fL) 99 MCH (27.0 - 34.1 pg) 32 .4 MCHC (32.2 - 35.7 %) 32.7 RDW (12.1 - 15.2 %) 15.1 P lt Count (129 - 368 K/MM3) 274 MPV (7.4 - 10.4 fl) 8.8 Ne ut % (Auto) (43 - 75 %) 75.7 H Lymph % (Auto) (14 - 44 %) 11.9 L Harlan % (Auto) (4 - 13 %) 11.2 Eos % (Auto ) (0 - 6 %) 0.7 Baso % (Auto) (0 - 2 %) 0.2 Neut # (Auto ) (2.0 - 7.6 K/mm3) 8.79 H Lymph # (Auto) (1.0 - 3.8 K/mm 3) 1.38 Harlan # (Auto) (0.1 - 0.8 K/mm3) 1.30 H Eos # (Au to) (0.0 - 0.2 K/mm3) 0.08 Baso # (Auto) (0.0 - 0.2 K/mm3 ) 0.02 Immature Gran % (0.0 - 2.0 %) 0.3 Nucleated RBC % (0 - 1.0 %) 0.0 Nucleated RBCs # (Man) (0.0 - 0.1 K/m m3) 0.00 Diagnosis, Assessment PlanFree Text A P:This is a 72 Y/F with LITTLE stenosisS/p Right CEA-tongue is midlin e without deviation, left facial droop. Right facial swell ingOn statin/plavix/aspirinHTN-off cardene gtt, b/p co ntrolled now.DVT prophylaxis-SCDs and TEDsEncourage IS an d ambulationWill monitor b/p today.[facility] tentatively saturday or saturday. Orders: Procedure Date/time Status DANIELA E MANAGEMENT CONSULT 10/03 1839 Active Plan discus sed with: patient, collaborating MD (Dr. Cruz) Electron ically Signed by Billie Valadez SENIOR HARDWARE DESIGN ENGINEER on 10/02/18 at 2031 RPT #:[id number] OF REPORTPRProgress [id number]:58:00Z.[id number] lable for patient [id number]:31:52 2018-10-02 [id number]:58:00 [facility] 09:58:00 [facility] ([facility])Cardiovascular Surgery ProgREPORT#:[id number] REPORT STATUS: SignedDATE: 10/02/18 TIME: 09 PATIENT: RACHEAL DIA UNIT #: [id number]#: [id number] ROOM/BED: [facility] 7-ADOB: [birth year] AGE: 72 SEX: F ATTEND: Rohith Cruz [facility] AUTHOR: Billie Valadez NP edits or amendments must be made on the electronic/Peppercorn puter document * GeneralPost-op: day 2Status post:Righ t CEA SubjectivePatient reports:No: complaints. Commen ts:Seen sitting on the chair at bedsideDenies cp or sobR eports right neck tenderness and numbness Tongue is mid line without deviation, tongue is midline, left facia l droop. left IJ CVC Review of SystemsConstitutional:Yousuf es: chills, fatigue, fever, generalized weakness. Respiratory:Denies: NEGRO (dyspnea on exertion), S OB. Cardiovascular:Denies: chest pain, NEGRO (dyspnea on exertion), edema, orthopnea, palpitations. Objec tive Physical ExamVS/I O:Last Documented: Result Date Time Temp 97.6 10/02 0730 Pulse Ox 98 10/02 0700 B/P 152/74 10/02 0700 B/P Mean 105 10/02 0700 Pulse 71 0700 Resp 26 10/02 0700 O2 Delivery Nasal cannula 2220 O2 Flow Rate 3.855161 10/01 2220 FiO2 28 10/01 1 442 24 hour I O ending at 0700: 10/02 0700 10/01 1900 I ntake Total 100 980.00 Output Total 750 Balance 100 2 30.00 Intake, IV 620.00 Intake, Oral 100 360 Number V oids 2 1 Output, Urine 750 Patient 70.76 kg Weight Patie nt Weight Weight (lb): 156Weight (oz): 3.65Weight (kg): 70 .76 Medications:Active Meds + DC'd Last 24 HrsFamoti dine 20 MG Q12HR PO Nifedipine 10 MG Q4H PRN PRN SL Aspi rin 81 MG DAILY PO Clopidogrel Bisulfate 75 MG DAILY PO Hydrochlorothiazide 12.5 MG DAILY PO Isosorbide Mononitrate 30 MG DAILY PO Losartan Potassium 10 0 MG DAILY PO Metoprolol Succinate 100 MG DAILY PO Levothyroxine Sodium 100 MCG DAILY@0630 PO Atorv astatin Calcium 40 MG BEDTIME PO Famotidine 20 MG Q12HR IV (DC) Mupirocin 1 APPLIC BID NASAL Potassium Chloride/Dextrose/Sod Cl 1,000 ML Q12H IV Acetaminophen/Codeine Phosphate 2 UDTAB Q4H PRN PRN PO Acetaminophen/Codeine Phosphate 1 UDTAB Q4H PRN PRN PO Meperidine HCl 25 MG Q4H PRN PRN IM Meperidine H Cl 50 MG Q4H PRN PRN IM Acetaminophen 650 MG Q8H PRN PRN PO Acetaminophen 650 MG Q4H PRN PRN PO Benzocaine/M enthol 1 EACH Q2H PRN PRN MM (CKD) Bisacodyl 10 MG ASDIR PRN RECTAL Calcium Gluconate 1,000 MG ASDIR PRN IV S odium Chloride 100 MLNicardipine HCl 25 MG ASDIR PRN I V Sodium Chloride 250 MLNifedipine 10 MG Q4H PRN PRN SL Ondansetron HCl 4 MG Q8H PRN PRN IV Phenol 5 SPR AY Q2H PRN PRN MM Potassium Chloride 10 MEQ ASDIR PRN P O Magnesium Hydroxide 30 ML ASDIR PRN PO Zolpidem Tartrate 5 MG BEDTIME PRN PRN PO General appearance: aler t, awake, oriented, no acute distressWound/incision: Locat ion: Right neck Site condition: dressing clean dry, d ressing intact, no drainageNeck: tenderness (right neck) , Right neck swellingCardiovascular: BP/pulses equal mariajose at., normal heart sounds, regular rate rhythmRespirat ory: aerating well, clear to auscultation, symmetric expansion, no distressAbdomen: soft, non-tender, normal bowel sounds, no distentionGenitourinary: no foleyExtremities: moves all, no edemaNeuro/SUPERINTENDENT DISTRIBUTION: alert, oriented X 3, CNII-XII intacte, normal gait, nor mal speech, nomotor deficits, no sensory deficits, T ongue is midline without deviation ResultsFindings/Data:L aboratory Tests 10/02 0515 Chemistry Sodium (137 - 145 MM OL/L) 136 L Potassium (3.5 - 5.1 MMOL/L) 3.6 Chloride (98 - 107 MMOL/L) 95 L Carbon Dioxide (22 - 30 MMOL/L) 33 H BUN (7 - 17 MG/DL) 8 Creatinine (0.52 - 1.04 MG/DL) 0.6 0 Glomerular Filtr Rate > 60 Glucose (74 - 106 MG/ DL) 110 H Calcium (8.4 - 10.2 MG/DL) 8.7 Magnesium (1.6 - 2.3 MG/DL) 2.1 Laboratory Tests 10/02 0515 Hematolo gy WBC (3.8 - 9.8 K/MM3) 11.6 H RBC (3.58 - 4.97 M/MM3 ) 3.39 L Hgb (11.2 - 14.9 G/DL) 11.0 L Hct (33.2 - 43.5 % ) 33.6 MCV (80.7 - 99.1 fL) 99 MCH (27.0 - 34.1 pg) 32. 4 MCHC (32.2 - 35.7 %) 32.7 RDW (12.1 - 15.2 %) 15.1 Pl t Count (129 - 368 K/MM3) 274 MPV (7.4 - 10.4 fl) 8.8 Ne ut % (Auto) (43 - 75 %) 75.7 H Lymph % (Auto) (14 - 4 4 %) 11.9 L Harlan % (Auto) (4 - 13 %) 11.2 Eos % (Auto) (0 - 6 %) 0.7 Baso % (Auto) (0 - 2 %) 0.2 Neut # (Auto) (2 .0 - 7.6 K/mm3) 8.79 H Lymph # (Auto) (1.0 - 3.8 K/mm3) 1 .38 Harlan # (Auto) (0.1 - 0.8 K/mm3) 1.30 H Eos # (Auto) ( 0.0 - 0.2 K/mm3) 0.08 Baso # (Auto) (0.0 - 0.2 K/mm3) 0.02 Immature Gran % (0.0 - 2.0 %) 0.3 Nucleated RBC % (0 - 1. 0 %) 0.0 Nucleated RBCs # (Man) (0.0 - 0.1 K/mm3) 0.00 Di agnosis, Assessment PlanFree Text A P:This is a 72 Y/F wi th LITTLE stenosisS/p Right CEA-tongue is midline without deviation, left facial droop. Right facial swell ingOn statin/plavix/aspirinHTN-off cardene gtt, b/p co ntrolled now.DVT prophylaxis-SCDs and TEDsEncourage IS an d ambulationWill monitor b/p today.[facility]/c planning [facility] tentatively saturday or saturday. Orders: Procedure Date/time Status DANIELA E MANAGEMENT CONSULT 10/03 1839 Active Plan discus sed with: patient, collaborating MD (Dr. Cruz) Electron ically Signed by Billie Valadez NP on 10/02/18 at 2031 at 1929 RPT #:[id number] OF REPORTPRProgress [id number]:58:00Z.[id number] lable for patient [id number]:29:17 2018-10-01 [id number]:45:00 [facility] 18:45:00 [facility]Cardiology Progress NoteREPORT#:[id number] REPORT STATUS: SignedDATE: 10/01/18 TIME: 1844 PATIENT: RACHEAL DIA UNIT #: [id number]#: [id number] ROOM/BED: SI0 7-ADOB: [birth year] AGE: 72 SEX: F ATTEND: Rohith Cruz AUTHOR: Supa Kelly MD * ALL e dits or amendments must be made on the electronic/comput er document * SubjectivePatient reports:No: chest p ain, palpitations, shortness of breath. Objective Gen eralVS/I O:24 hour I O ending at 0700: 10/01 0700 09/30 1 900 Intake Total 1245.00 1490.00 Output Total 1330 1240 Balance -85.00 250.00 Intake, IV 1005.00 1490.0 0 Intake, Oral 240 Output, 60 40 Drainage Output, 20 Emes is Output, Urine 1250 1200 Patient 70.864 kg Weight Weight Standing scale Measurement Method Vital Signs: D ate Time Temp Pulse Resp B/P B/P Pulse O2 O2 Flow FiO2 M lizabeth Ox Delivery Rate 10/01 1800 87 32 126/69 92 96 06/1 9 1745 80 25 96 10/01 1730 80 25 119/59 83 95 10/01 1715 82 18 95 10/01 1708 83 24 96 10/01 1700 89 28 142/73 102 98 10/01 1645 80 16 100 10/01 1630 77 16 133/70 96 98 1615 78 15 100 10/01 1600 90 22 153/81 109 97 10/01 1 545 79 15 99 10/01 1530 82 15 165/74 107 99 10/01 1515 85 16 99 10/01 1508 99.0 90 24 166/77 106 100 Nasal 3.000 000 cannula 10/01 1503 85 23 99 10/01 1500 80 20 166 /77 114 99 10/01 1449 80 16 182/80 120 100 10/01 1445 8 2 23 99 10/01 1444 84 25 202/102 140 99 10/01 1442 100 N flash 28 cannula 10/01 1441 77 15 100 10/01 1434 90 21 19 6/93 134 94 10/01 1432 92 22 203/99 142 91 10/01 1430 20 4/96 138 10/01 1428 93 31 92 10/01 1415 78 16 92 10/01 14 00 83 18 151/94 116 92 10/01 1345 70 16 91 10/01 1330 76 17 160/79 109 92 10/01 1315 84 22 92 10/01 1300 77 19 134/ 70 96 93 10/01 1245 72 14 92 10/01 1230 74 18 129/72 93 9 0 10/01 1215 69 11 91 10/01 1200 71 14 123/72 93 91 1152 98.1 80 21 109/64 79 93 Room air 10/01 1145 84 2 5 90 10/01 1130 68 17 104/61 77 90 10/01 1115 78 14 92 10/01 1108 71 17 112/64 83 92 06/19 1100 75 17 92 06/1 9 1057 78 32 93 06/19 1054 75 29 109/64 81 93 06/19 1046 7 9 20 101/60 76 88 06/19 1045 68 15 91 06/19 1039 69 1 6 108/61 79 94 06/19 1030 76 18 92 06/19 1015 77 16 92 06 /19 1000 70 19 95 06/19 0958 70 21 143/80 106 94 06/19 0 949 178/82 117 06/19 0930 72 13 100 06/19 0915 70 25 100 06/19 0900 64 16 121/61 85 100 06/19 0845 65 18 100 06/19 0830 66 12 100 06/19 0815 70 26 100 06/19 0800 97.7 64 18 114/60 78 100 Nasal 3.663545 cannula 06/19 08 00 79 24 111/58 78 100 06/19 0745 73 16 100 06/19 0730 67 16 100 06/19 0715 73 15 100 06/19 0700 84 20 129/68 91 100 06/19 0645 68 16 100 06/19 0630 74 17 99 06/19 0 615 79 19 100 06/19 0600 78 19 130/56 80 06/19 0600 89 06/ 19 0545 88 20 06/19 0500 74 15 128/69 93 96 06/19 0445 7 8 17 98 06/19 0430 72 17 99 06/19 0415 77 17 99 06/19 04 00 98.7 06/19 0400 76 16 154/70 100 99 06/19 0345 80 16 98 06/19 0330 80 17 98 06/19 0300 76 18 138/75 101 99 06/ 19 0230 74 16 98 06/19 0215 75 18 98 06/19 0145 76 18 9 8 06/19 0130 76 18 99 06/19 0115 76 20 99 06/19 0100 74 16 146/78 103 99 06/19 0045 79 21 99 06/19 0030 78 17 98 06/19 0015 73 17 99 06/19 0003 97.5 06/19 0000 73 19 119/71 90 99 06/18 2345 74 20 98 06/18 2330 75 1 8 98 06/18 2315 75 20 98 06/18 2300 75 19 113/65 83 9 7 06/18 2245 103 20 96 09/30 2230 77 19 98 09/30 2215 80 17 98 09/30 2200 80 18 121/69 90 98 09/30 2145 79 18 9 7 09/30 2130 81 18 96 09/30 2115 83 20 95 09/30 2100 76 21 103/59 76 97 09/305 76 17 97 09/30 2030 77 1 8 98 09/30 2014 80 20 97 10/01 1999 97.2 10/01 1999 N flash 2.137115 cannula 10/01 1999 79 18 104/57 75 97 09/30 1945 79 19 97 09/30 1930 81 17 97 09/30 1915 83 16 97 09/30 1909 88 14 115/61 83 97 09/30 1905 88 17 9 6 09/30 1901 86 19 108/59 78 98 09/30 1900 84 12 98 06/ 8 1846 86 19 135/71 96 98 Patient Weight Weight (lb): 156W eight (oz): 3.65Weight (kg): 70.76 Physical ExamGenera l appearance: alert, awake, orientedHead/Eyes: atr aumatic, normocephalicENT: moist mucosal membranesNeck: n o JVDCardiovascular: CV assessment: regular rate a nd rhythmRespiratory: clear to auscultation, no distressLower extremity: LE assessment: no edemaMusculoskeletal: full range of motionNeuro/ SUPERINTENDENT DISTRIBUTION: alert, oriented X 3, CN II-XII intactSkin: dry, intactPsychiatry: normal affect, normal judgment /insight, normal mood ResultsFindings/Data:Laboratory Test s 10/01 09/30 0450 2215 Chemistry Sodium (137 - 145 MMO L/L) 136 L Potassium (3.5 - 5.1 MMOL/L) 3.9 3.3 L Chlori de (98 - 107 MMOL/L) 96 L Carbon Dioxide (22 - 30 MMOL/L) 32 H BUN (7 - 17 MG/DL) 7 Creatinine (0.52 - 1.04 MG/DL) 0.60 Glomerular Filtr Rate > 60 Glucose (74 - 106 MG/ DL) 132 H Calcium (8.4 - 10.2 MG/DL) 8.7 Magnesium (1.6 - 2.3 MG/DL) 1.7 1.7 Laboratory Tests 10/01 0450 Hemat ology WBC (3.8 - 9.8 K/MM3) 10.7 H RBC (3.58 - 4.97 M/MM3) 3.70 Hgb (11.2 - 14.9 G/DL) 12.0 Hct (33.2 - 43.5 %) 36.0 MCV (80.7 - 99.1 fL) 97 MCH (27.0 - 34.1 pg) 32.4 M CHC (32.2 - 35.7 %) 33.3 RDW (12.1 - 15.2 %) 15.2 Plt Coun t (129 - 368 K/MM3) 298 MPV (7.4 - 10.4 fl) 8.8 Neut % (A uto) (43 - 75 %) 82.2 H Lymph % (Auto) (14 - 44 %) 8.7 L Harlan % (Auto) (4 - 13 %) 8.4 Eos % (Auto) (0 - 6 %) 0.1 Baso % (Auto) (0 - 2 %) 0.2 Neut # (Auto) (2.0 - 7.6 K /mm3) 8.82 H Lymph # (Auto) (1.0 - 3.8 K/mm3) 0.93 L M malcolm # (Auto) (0.1 - 0.8 K/mm3) 0.90 H Eos # (Auto) (0. 0 - 0.2 K/mm3) 0.01 Baso # (Auto) (0.0 - 0.2 K/mm3) 0.02 Immature Gran % (0.0 - 2.0 %) 0.4 Nucleated RBC % (0 - 1 .0 %) 0.0 Nucleated RBCs # (Man) (0.0 - 0.1 K/mm3) 0.00 La boratory Tests 10/01 09/30 0450 2215 Chemistry Magnesium (1.6 - 2.3 MG/DL) 1.7 1.7 Radiology data:Recent Impressions:RADIOLOGY - XR CHEST 1V 10/01 448 * Report Impression - Status: SIGNED Entered: 10/01/2018 0748 IMPRESSION:Mild left basilar atelectasis and/or pleural fluid.Impression By: LakePRJeff - Kayode Juarez MD Diagnosis, Assessment Plan Free Text DxA P Notes Free Text DxA P Notes:IMP: Carotid vascular disease s/p ri ght CEA CAD - stable PLAN: Ambulate Home medications. at 2048 RPT #:[id number] OF REPORTPRProg ress [id number]:45:00Z.[id number] lable for patient [id number]:49:02 2018-10-01 [id number]:00:00 [facility] 15:00:00 [facility]Hospitalist Progress NoteREPORT#:[id number] REPORT STATUS: SignedDATE: 10/01/18 TIME: 1500 PATIENT: RACHEAL DIA UNIT #: [id number]#: [id number] [address] [birth year] AGE: 72 SEX: F ATTEND: Rohith Cruz AUTHOR: Mariana Humphrey MD * ALL edits or amendments must be made on the electronic/comput er document * SubjectiveChief Complaint:patient is doing well. Review of SystemsAll systems rev neg: exce pt as marked Objective GeneralVS/I O:Vital Signs: Date Time Temp Pulse Resp B/P B/P Pulse O2 O2 Flow FiO2 Me an Ox Delivery Rate 10/01 1442 100 Nasal 28 cannula 1441 77 15 100 10/01 1434 90 21 196/93 134 94 10/01 1 432 92 22 203/99 142 91 10/01 1430 204/96 138 10/01 1428 9 3 31 92 10/01 1415 78 16 92 10/01 1400 83 18 151/94 116 92 10/01 1345 70 16 91 10/01 1330 76 17 160/79 109 92 1315 84 22 92 10/01 1300 77 19 134/70 96 93 10/01 12 45 72 14 92 10/01 1230 74 18 129/72 93 90 10/01 1215 69 11 91 10/01 1200 71 14 123/72 93 91 06/19 1152 98.1 80 21 109/64 79 93 Room air 06/19 1145 84 25 90 06/19 1130 68 17 104/61 77 90 06/19 1115 78 14 92 06/19 1108 7 1 17 112/64 83 92 06/19 1100 75 17 92 06/19 1057 78 32 93 06/19 1054 75 29 109/64 81 93 06/19 1046 79 20 1 01/60 76 88 06/19 1045 68 15 91 06/19 1039 69 16 108/61 79 94 06/19 1030 76 18 92 06/19 1015 77 16 92 06/19 10 00 70 19 95 06/19 0958 70 21 143/80 106 94 06/19 0949 178 /82 117 06/19 0930 72 13 100 06/19 0915 70 25 100 06/19 0900 64 16 121/61 85 100 06/19 0845 65 18 100 06/19 0830 66 12 100 06/19 0815 70 26 100 06/19 0800 97.7 64 18 1 14/60 78 100 Nasal 3.159036 cannula 06/19 0800 79 24 111 /58 78 100 06/19 0745 73 16 100 06/19 0730 67 16 100 06 /19 0715 73 15 100 06/19 0700 84 20 129/68 91 100 06/19 0 645 68 16 100 06/19 0630 74 17 99 06/19 0615 79 19 100 06 /19 0600 78 19 130/56 80 06/19 0600 89 06/19 0545 88 20 0 6/19 0500 74 15 128/69 93 96 06/19 0445 78 17 98 06/19 043 0 72 17 99 06/19 0415 77 17 99 06/19 0400 98.7 06/19 040 0 76 16 154/70 100 99 06/19 0345 80 16 98 06/19 0330 80 17 98 06/19 0300 76 18 138/75 101 99 06/19 0230 74 16 98 06/19 0215 75 18 98 06/19 0145 76 18 98 06/19 0130 76 18 99 06/19 0115 76 20 99 06/19 0100 74 16 146/78 103 99 06/19 0045 79 21 99 06/19 0030 78 17 98 06/19 0015 73 17 99 06/19 0003 97.5 06/19 0000 73 19 119/71 90 99 06 /18 2345 74 20 98 06/18 2330 75 18 98 06/18 2315 75 20 9 8 06/18 2300 75 19 113/65 83 97 06/18 2245 103 20 96 06/ 18 2230 77 19 98 06/18 2215 80 17 98 06/18 2200 80 18 12 1/69 90 98 06/18 2145 79 18 97 06/18 2130 81 18 96 06/1 8 2115 83 20 95 06/18 2100 76 21 103/59 76 97 06/18 2045 7 6 17 97 06/18 2030 77 18 98 06/18 2014 80 20 97 06/18 20 00 97.2 06/18 1999 Nasal 2.074429 cannula 06/18 1999 79 18 104/57 75 97 06/18 1945 79 19 97 06/18 1930 81 17 97 0 6/18 1915 83 16 97 06/18 1909 88 14 115/61 83 97 06/18 190 5 88 17 96 06/18 1901 86 19 108/59 78 98 06/18 1900 84 1 2 98 06/18 1846 86 19 135/71 96 98 06/18 1845 80 16 98 06/18 1831 78 18 121/68 89 98 06/18 1830 81 18 98 06/1 8 1816 76 19 122/66 89 97 06/18 1815 75 19 125/67 89 97 0 6/18 1801 77 20 96 06/18 1800 78 24 109/61 80 96 06/18 175 9 83 21 107/58 78 95 06/18 1745 84 19 95 06/18 1744 87 23 104/56 74 06/18 1730 91 23 96 06/18 1715 93 9 96 06/18 1700 82 21 97 06/18 1657 86 19 97 06/18 1645 87 9 97 06/ 18 1642 85 18 97 06/18 1630 Nasal 3.427664 cannula 06/18 1630 87 20 98 06/18 1627 88 22 98 06/18 1624 86 20 98 0 6/18 1612 87 20 98 06/18 1557 85 20 98 06/18 1542 91 23 97 06/18 1527 99 30 97 06/18 1512 100 Simple 5.770921 40 mask 06/18 1512 97.6 107 30 146/69 94 100 Simple 3.00 0000 mask 09/30 1512 107 99 24 hour I O ending at 0700: 0 10/01 0700 09/30 1900 Intake Total 1245.00 1490.00 Output T otal 1330 1240 Balance -85.00 250.00 Intake, IV 1005.00 14 90.00 Intake, Oral 240 Output, 60 40 Drainage Output, 20 Emesis Output, Urine 1250 1200 Patient 70.864 kg Weight Weight Standing scale Measurement Method Medications:Active Meds + DC'd Last 24 HrsFamoti dine 20 MG Q12HR PO Aspirin 81 MG DAILY PO (DC) Aspirin 81 MG DAILY PO Clopidogrel Bisulfate 75 MG DAILY PO (D C) Clopidogrel Bisulfate 75 MG DAILY PO Hydrochloro thiazide 12.5 MG DAILY PO Isosorbide Mononitrate 30 MG DA SYBIL PO Losartan Potassium 100 MG DAILY PO Metoprolol Becerra ccinate 100 MG DAILY PO Magnesium Sulfate/Dextrose 100 M L ONCE ONE IV (DC) Dextrose/Sodium Chloride 1,000 ML Q2 0H IV (CAN) Levothyroxine Sodium 100 MCG DAILY@0630 PO Potassium Chloride 50 ML ONCE ONE IV (DC) Atorva statin Calcium 40 MG BEDTIME PO Famotidine 20 MG Q12HR IV (DC) Mupirocin 1 APPLIC BID NASAL Potassium Chloride 50 ML Q1H IV (DC) Potassium Chloride 50 ML ONCE ONE IV (DC ) Magnesium Sulfate 50 ML NOW ONE IV (DC) Potassiu m Chloride 50 ML Q2H IV (DC) Potassium Chloride/Dextrose/Sod Cl 1,000 ML Q12H IV Cefazo rachana Sodium 1,000 MG Q8H IV (DC) Sodium Chloride 10 MLAcetaminophen/Codeine Phosphate 2 UDTAB Q4H WI N PRN PO Acetaminophen/Codeine Phosphate 1 UDTAB Q4H PRN PRN PO Meperidine HCl 25 MG Q4H PRN PRN IM Meperidine H Cl 50 MG Q4H PRN PRN IM Acetaminophen 650 MG Q8H PRN PRN PO Acetaminophen 650 MG Q4H PRN PRN PO Benzocaine/M enthol 1 EACH Q2H PRN PRN MM (CKD) Bisacodyl 10 MG ASDIR PRN RECTAL Calcium Gluconate 1,000 MG ASDIR PRN IV S odium Chloride 100 MLNicardipine HCl 25 MG ASDIR PRN I V Sodium Chloride 250 MLNifedipine 10 MG Q4H PRN PRN SL Ondansetron HCl 4 MG Q8H PRN PRN IV Phenol 5 SPR AY Q2H PRN PRN MM Potassium Chloride 10 MEQ ASDIR PRN P O Nicardipine HCl 25 MG ASDIR IV (DC) Sodium Chlor evens 250 MLCefazolin Sodium 2,000 MG ONCALL IV (DC) Aceta minophen 650 MG Q4H PRN PRN PO (DC) Magnesium Hydroxide 3 0 ML ASDIR PRN PO Zolpidem Tartrate 5 MG BEDTIME PRN PRN PO Physical ExamGeneral appearance: alert, awake, orientedHead/Eyes: EOMI, PERRLNeck: right side o f neck dressing intactCardiovascular: normal heart soun ds, regular rate rhythmRespiratory: aerating well, c lear to auscultationAbdomen: non-tender, normal bowel soundsMusculoskeletal: normal inspectionPsychiat ry: normal affect, normal judgment/insight ResultsFindings/Data:Laboratory Tests 09/30 1530 Blood Gas Puncture Site AL ABG pH (7.35 - 7.45 mmHg) 7 .42 ABG pCO2 (35.0 - 45.0 mmHg) 45.2 H ABG pO2 (80.0 - 1 00.0 mmol/L) 81.7 ABG HCO3 (20.0 - 26.0 mmol/L) 28.5 H ABG O2 Saturation (95.0 - 100.0 %) 96.1 ABG Base Exces s (-3.0 - 3.0 mmol/L) 3.4 H Nick Test (CHECK) NA Temperat ure (37 C) 37.0 O2 Delivery Device FACETENT FiO2 (%) 40 Laboratory Tests 10/01 09/30 09/30 0450 2215 15 15 Chemistry Sodium (137 - 145 MMOL/L) 136 L 138 Po tassium (3.5 - 5.1 MMOL/L) 3.9 3.3 L 3.1 L Chloride (98 - 107 MMOL/L) 96 L 100 Carbon Dioxide (22 - 30 MMOL/L) 32 H 31 H BUN (7 - 17 MG/DL) 7 10 Creatinine (0.52 - 1. 04 MG/DL) 0.60 0.60 Glomerular Filtr Rate > 60 > 60 Glucos e (74 - 106 MG/DL) 132 H 119 H Calcium (8.4 - 10.2 MG/DL ) 8.7 8.9 Magnesium (1.6 - 2.3 MG/DL) 1.7 1.7 1.3 L Angya malia Tests 10/01 09/30 0450 1515 Hematology WBC (3.8 - 9.8 K/MM3) 10.7 H 10.8 H RBC (3.58 - 4.97 M/MM3) 3. 70 3.64 Hgb (11.2 - 14.9 G/DL) 12.0 11.8 Hct (33.2 - 43. 5 %) 36.0 35.3 MCV (80.7 - 99.1 fL) 97 97 MCH (27.0 - 34.1 pg) 32.4 32.4 MCHC (32.2 - 35.7 %) 33.3 33.4 RDW (12 .1 - 15.2 %) 15.2 14.9 Plt Count (129 - 368 K/MM3) 298 281 MPV (7.4 - 10.4 fl) 8.8 8.9 Neut % (Auto) (43 - 75 %) 82. 2 H 55.0 Lymph % (Auto) (14 - 44 %) 8.7 L 30.3 Harlan % (A uto) (4 - 13 %) 8.4 10.8 Eos % (Auto) (0 - 6 %) 0.1 3.0 Ba so % (Auto) (0 - 2 %) 0.2 0.3 Neut # (Auto) (2.0 - 7. 6 K/mm3) 8.82 H 5.97 Lymph # (Auto) (1.0 - 3.8 K/mm3) 0.9 3 L 3.28 Harlan # (Auto) (0.1 - 0.8 K/mm3) 0.90 H 1.17 H Eo s # (Auto) (0.0 - 0.2 K/mm3) 0.01 0.32 H Baso # (Aut o) (0.0 - 0.2 K/mm3) 0.02 0.03 Immature Gran % (0.0 - 2.0 %) 0.4 0.6 Nucleated RBC % (0 - 1.0 %) 0.0 0.0 Nucleate d RBCs # (Man) (0.0 - 0.1 K/mm3) 0.00 0.00 Radiology data :Recent Impressions:RADIOLOGY - XR CHEST 1V 09/30 1516 * Report Impression - Status: SIGNED Entered: 09/30/2018 1532 IMPRESSION:Mild congestive changes bilaterally. No pneumothorax. Impression By: Bernie Logan MDRADIOLOGY - XR CHEST 1V 10/01 0449 Report I mpression - Status: SIGNED Entered: 10/01/2018 0748 IMPRES ONIEL:Mild left basilar atelectasis and/or pleural fluid.Im pression By: Travis7 Acacia Juarez MD Diagnosis, Asses sment Plan Free Text DxA P NotesFree text DxA P notes: Diagnosis, Assessment Plan Free Text DxA P Notes Free Text DxA P Notes:pt is 72 y/o female with h/o CAD and stent , HTN, HLD, hypothyroidism underwent Procedures performed:Right carotid endarterectomy with gricelda shield patch arterioplasty. pt is admitted for post op care. plan: contieu treatment per dr cruz and monit or clinical recovery. 10/01/18: blood pressure becam e uncontrolled requiring restarting of nicardipine drip. resume home medications and monitor for bp contr ol. Quality MedicationsCurrent medication review:I a ttest that the foregoing medication list in the medica l record is true, accurate, and complete to the best of m y knowledge. Advanced Care Plan 65 or OlderDiscuss ed with: patient, surrogate decis. makerDiscussion includ ed: code status (full code) Tobacco Use/CounselingTobacco use/counseling: non tobacco user HTN Screening/Follow-upB/P assess/follow-up: pre-exi sting hx of HTN at 1944 RPT #:[id number] OF REPORTPRProgress [id number]:00:00Z.[id number] lable for patient [id number]:44:57 2018-10-01 [id number]:27:00 [facility] 10:27:00 [facility] ([facility])Cardiovascular Surgery ProgREPORT#:[id number] REPORT STATUS: SignedDATE: 10/01/18 TIME: 1027 PATIENT: RACHEAL DIA UNIT #: [id number]#: [id number] ROOM/BED: [facility] 7-ADOB: [birth year] AGE: 72 SEX: F ATTEND: Rohith Cruz [facility] AUTHOR: Billie Valadez NP * NASEEM [place] edits or amendments must be made on the electronic/com puter document * GeneralPost-op: day 1Status post:Righ t CEA SubjectivePatient reports:Yes: incisional pain ( right neck). No: chest pain, nausea, vomiting. Comment s:Seen at bedsideReports right neck incision painTongue is midline without deviation, mild left facial droop. No sw allowing difficultiesHas ambulated well with PT this morn ing without any focal difficulties. Review of SystemsConstitutional:Denies: chills, fatigue, f ever, generalized weakness. Respiratory:Denies: NEGRO (d yspnea on exertion), SOB. Cardiovascular:Denies: chest jose n, NEGRO (dyspnea on exertion), edema, orthopnea, palpita tions. Objective Physical ExamVS/I O:Last Documented: R esult Date Time Pulse Ox 100 10/01 0700 B/P 129/68 0700 B/P Mean 91 10/01 0700 Pulse 84 10/01 0700 Resp 20 10/01 0700 Temp 98.7 10/01 0400 O2 Delivery Nasal axel ed 10/01 1999 O2 Flow Rate 2.367585 10/01 1999 FiO2 40 1512 24 hour I O ending at 0700: 10/01 0700 09/30 19 00 Intake Total 1245.00 1490.00 Output Total 1330 1240 Bal ance -85.00 250.00 Intake, IV 1005.00 1490.00 Intake, Oral 240 Output, 60 40 Drainage Output, 20 Emesis Output , Urine 1250 1200 Patient 70.864 kg Weight Weight Standi ng scale Measurement Method Patient Weight Weight (lb): 1 56Weight (oz): 3.65Weight (kg): 70.76 Medications:Active Meds + DC'd Last 24 HrsAspirin 81 MG DAILY PO (DC) Aspi rin 81 MG DAILY PO Clopidogrel Bisulfate 75 MG DAILY PO (D C) Clopidogrel Bisulfate 75 MG DAILY PO Hydrochloro thiazide 12.5 MG DAILY PO Isosorbide Mononitrate 30 MG DA SYBIL PO Losartan Potassium 100 MG DAILY PO Metoprolol Becerra ccinate 100 MG DAILY PO Magnesium Sulfate/Dextrose 100 M L ONCE ONE IV (DC) Dextrose/Sodium Chloride 1,000 ML Q2 0H IV (CAN) Levothyroxine Sodium 100 MCG DAILY@0630 P O Potassium Chloride 50 ML ONCE ONE IV (DC) Atorva statin Calcium 40 MG BEDTIME PO Famotidine 20 MG Q12HR IV Mupirocin 1 APPLIC BID NASAL Potassium Chloride 50 ML Q1H IV (DC) Potassium Chloride 50 ML ONCE ONE IV (DC) Magnesium Sulfate 50 ML NOW ONE IV (DC) Potassiu m Chloride 50 ML Q2H IV (DC) Potassium Chloride/Dextrose/Sod Cl 1,000 ML Q12H IV Cefazo rachana Sodium 1,000 MG Q8H IV (DC) Sodium Chloride 10 MLAcetaminophen/Codeine Phosphate 2 UDTAB Q4H WI N PRN PO Acetaminophen/Codeine Phosphate 1 UDTAB Q4H PRN PRN PO Meperidine HCl 25 MG Q4H PRN PRN IM Meperidine H Cl 50 MG Q4H PRN PRN IM Acetaminophen 650 MG Q8H PRN PRN PO Acetaminophen 650 MG Q4H PRN PRN PO Benzocaine/M enthol 1 EACH Q2H PRN PRN MM (CKD) Bisacodyl 10 MG ASDIR PRN RECTAL Calcium Gluconate 1,000 MG ASDIR PRN IV S odium Chloride 100 MLNicardipine HCl 25 MG ASDIR PRN I V Sodium Chloride 250 MLNifedipine 10 MG Q4H PRN PRN SL Ondansetron HCl 4 MG Q8H PRN PRN IV Phenol 5 SPR AY Q2H PRN PRN MM Potassium Chloride 10 MEQ ASDIR PRN P O Glycopyrrolate 0 .STK-MED ONE .ROUTE (DC) Nicard ipine HCl 25 MG ASDIR IV (DC) Sodium Chloride 250 MLBacit racin 0 .STK-MED ONE Z (DC) Nicardipine HCl 250 ML .STK- MED ONE IV (DC) Protamine Sulfate 0 .STK-MED ONE IV (DC) Heparin Sodium 0 .STK-MED ONE IV (DC) Heparin Sodium/Sod ium Chloride 500 ML .STK-MED ONE IV (DC) Phenylephri ne HCl 100 ML .STK-MED ONE IV (DC) Hydralazine HCl 0 .S TK-MED ONE .ROUTE (DC) Etomidate 0 .STK-MED ONE .ROUTE (DC) Fentanyl Citrate 0 .STK-MED ONE .ROUTE (DC) Prop ofol 0 .STK-MED ONE .ROUTE (DC) Lidocaine HCl 0 .STK-M ED ONE INJ (DC) Cefazolin Sodium 2,000 MG ONCALL IV (DC ) Acetaminophen 650 MG Q4H PRN PRN PO (DC) Magnesi um Hydroxide 30 ML ASDIR PRN PO Zolpidem Tartrate 5 MG BEDTIME PRN PRN PO General appearance: alert, aw baldomero, oriented, no acute distressWound/incision: Locat ion: right neck Site condition: dressing clean dry, d ressing intact, incision intact, no drainage, no ecchymo sisNeck: tenderness (right neck), Right IJ BLAKE with minima l serosanguinous drainageCardiovascular: BP/pulses equal bilat., normal heart sounds, regular rate rhythmRespiratory: aerating well, clear to auscu ltation, symmetric expansion, no distressAbdomen: soft, non-tender, normal bowel sounds, no distentionGenitourinary: foleyExtremities: moves all, no edemaNeuro/SUPERINTENDENT DISTRIBUTION: alert, oriented X 3, CNII-XII in tacte, normal gait, normal speech, nomotor deficits, no sensory deficits, Tongue is midline without deviation ResultsFindings/Data:Laboratory Tests 09/30 1530 Blood Gas Puncture Site AL ABG pH (7.35 - 7.45 mmHg) 7 .42 ABG pCO2 (35.0 - 45.0 mmHg) 45.2 H ABG pO2 (80.0 - 1 00.0 mmol/L) 81.7 ABG HCO3 (20.0 - 26.0 mmol/L) 28.5 H ABG O2 Saturation (95.0 - 100.0 %) 96.1 ABG Base Excess (-3.0 - 3.0 mmol/L) 3.4 H Nick Test (CHECK) NA Temperat ure (37 C) 37.0 O2 Delivery Device FT/NC FiO2 (%) 40 La boratory Tests 10/01 09/30 09/30 0450 2215 1515 Chemistry Sodium (137 - 145 MMOL/L) 136 L 138 Potassium (3.5 - 5. 1 MMOL/L) 3.9 3.3 L 3.1 L Chloride (98 - 107 MMOL/L) 96 L 100 Carbon Dioxide (22 - 30 MMOL/L) 32 H 31 H BUN (7 - 17 MG/DL) 7 10 Creatinine (0.52 - 1.04 MG/DL) 0.60 0.60 Glomerular Filtr Rate > 60 > 60 Glucose (74 - 10 6 MG/DL) 132 H 119 H Calcium (8.4 - 10.2 MG/DL) 8.7 8.9 Magnesium (1.6 - 2.3 MG/DL) 1.7 1.7 1.3 L Laboratory Tests 10/01 09/30 0450 1515 Hematology WBC (3.8 - 9.8 K/MM3) 10.7 H 10.8 H RBC (3.58 - 4.97 M/MM3) 3.70 3.64 Hgb (11 .2 - 14.9 G/DL) 12.0 11.8 Hct (33.2 - 43.5 %) 36.0 35.3 M CV (80.7 - 99.1 fL) 97 97 MCH (27.0 - 34.1 pg) 32.4 32.4 MCHC (32.2 - 35.7 %) 33.3 33.4 RDW (12.1 - 15.2 %) 15 .2 14.9 Plt Count (129 - 368 K/MM3) 298 281 MPV (7.4 - 1 0.4 fl) 8.8 8.9 Neut % (Auto) (43 - 75 %) 82.2 H 55.0 Ly mph % (Auto) (14 - 44 %) 8.7 L 30.3 Harlan % (Auto) (4 - 13 %) 8.4 10.8 Eos % (Auto) (0 - 6 %) 0.1 3.0 Baso % ( Auto) (0 - 2 %) 0.2 0.3 Neut # (Auto) (2.0 - 7.6 K/mm3) 8 .82 H 5.97 Lymph # (Auto) (1.0 - 3.8 K/mm3) 0.93 L 3.2 8 Harlan # (Auto) (0.1 - 0.8 K/mm3) 0.90 H 1.17 H Eos # (A uto) (0.0 - 0.2 K/mm3) 0.01 0.32 H Baso # (Auto) (0.0 - 0. 2 K/mm3) 0.02 0.03 Immature Gran % (0.0 - 2.0 %) 0.4 0.6 Nucleated RBC % (0 - 1.0 %) 0.0 0.0 Nucleated RB Cs # (Man) (0.0 - 0.1 K/mm3) 0.00 0.00 Radiology data :Recent Impressions:RADIOLOGY - XR CHEST 1V 09/30 1516 * Report Impression - Status: SIGNED Entered: 09/30/2018 1532 IMPRESSION:Mild congestive changes bilaterally. No pneumothorax. Impression By: 16 - Lala Zuniga MDRADIOLOGY - XR CHEST 1V 10/01 0449 Report I mpression - Status: SIGNED Entered: 10/01/2018 0748 IMPRES ONIEL:Mild left basilar atelectasis and/or pleural fluid.Im pression By: LakePR7 - Kayode Juarez MD Diagnosis, Asses sment PlanFree Text A P:This is a 72 Y/F with LITTLE chano nosisS/p Right CEA-tongue is midline without deviation, m ild left facial droopOn statin/plavix/aspirinD/C right IJ BLAKE drain todayHTN-home meds resumed.DVT prophylaxis-SCDs and TEDsD/C foleyD/C radial arterial lineEncourage I S and ambulationPlan: CVU transfer this afternoon with stable B/P. Plan discussed with: patient, collaborating MD (Dr. Cruz) at 1105 RPT #:[id number] OF REPORTPRProgress [id number]:27:00Z.[id number] lable for patient [id number]:05:44 2018-10-01 [id number]:27:00 [facility] 10:27:00 [facility] ([facility])Cardiovascular Surgery ProgREPORT#:[id number] REPORT STATUS: SignedDATE: 10/01/18 TIME: 1027 PATIENT: RACHEAL DIA UNIT #: [id number]#: [id number] ROOM/BED: [facility] 7-ADOB: [birth year] AGE: 72 SEX: F ATTEND: Rohith Cruz MDA AUTHOR: Billie Valadez NP edits or amendments must be made on the electronic/Peppercorn puter document * See AddendumGeneralPost-op: day 1 Status post:Right CEA SubjectivePatient reports:Yes: in cisional pain (right neck). No: chest pain, nausea, vomit ing. Comments:Seen at bedsideReports right neck incis ion painTongue is midline without deviation, mild le ft facial droop. No swallowing difficultiesHas ambulated w ell with PT this morning without any focal difficulties. Review of SystemsConstitutional:Denies: chills, fatigue, f ever, generalized weakness. Respiratory:Denies: NEGRO (d yspnea on exertion), SOB. Cardiovascular:Denies: chest jose n, NEGRO (dyspnea on exertion), edema, orthopnea, palpita tions. Objective Physical ExamVS/I O:Last Documented: R esult Date Time Pulse Ox 100 10/01 0700 B/P 129/68 0700 B/P Mean 91 10/01 0700 Pulse 84 10/01 0700 Resp 20 10/01 0700 Temp 98.7 10/01 0400 O2 Delivery Nasal can nula 10/01 1999 O2 Flow Rate 2.603316 10/01 1999 FiO2 40 09/30 1512 24 hour I O ending at 0700: 10/01 0700 09/13 8 1900 Intake Total 1245.00 1490.00 Output Total 1330 1 240 Balance -85.00 250.00 Intake, IV 1005.00 1490.00 Intake, Oral 240 Output, 60 40 Drainage Output, 20 Emes is Output, Urine 1250 1200 Patient 70.864 kg Weigh t Weight Standing scale Measurement Method Patient Weigh t Weight (lb): 156Weight (oz): 3.65Weight (kg): 70.76 Medications:Active Meds + DC'd Last 24 HrsAspiri n 81 MG DAILY PO (DC) Aspirin 81 MG DAILY PO Clopidogre l Bisulfate 75 MG DAILY PO (DC) Clopidogrel Bisulf ate 75 MG DAILY PO Hydrochlorothiazide 12.5 MG DAILY PO Is osorbide Mononitrate 30 MG DAILY PO Losartan Potassium 10 0 MG DAILY PO Metoprolol Succinate 100 MG DAILY PO Ma gnesium Sulfate/Dextrose 100 ML ONCE ONE IV (DC) Dextros e/Sodium Chloride 1,000 ML Q20H IV (CAN) Levothyroxine So dium 100 MCG DAILY@0630 PO Potassium Chloride 50 ML ONCE ONE IV (DC) Atorvastatin Calcium 40 MG BEDTIME PO Famot idine 20 MG Q12HR IV Mupirocin 1 APPLIC BID NASAL Potassi um Chloride 50 ML Q1H IV (DC) Potassium Chloride 50 ML ONCE ONE IV (DC) Magnesium Sulfate 50 ML NOW ONE IV ( DC) Potassium Chloride 50 ML Q2H IV (DC) Potassium Chloride/Dextrose/Sod Cl 1,000 ML Q12H IV Cefazo rachana Sodium 1,000 MG Q8H IV (DC) Sodium Chloride 10 MLAcetaminophen/Codeine Phosphate 2 UDTAB Q4H WI N PRN PO Acetaminophen/Codeine Phosphate 1 UDTAB Q4H PRN PRN PO Meperidine HCl 25 MG Q4H PRN PRN IM Meperidine H Cl 50 MG Q4H PRN PRN IM Acetaminophen 650 MG Q8H PRN PRN PO Acetaminophen 650 MG Q4H PRN PRN PO Benzocaine/M enthol 1 EACH Q2H PRN PRN MM (CKD) Bisacodyl 10 MG ASDIR PRN RECTAL Calcium Gluconate 1,000 MG ASDIR PRN IV S odium Chloride 100 MLNicardipine HCl 25 MG ASDIR PRN I V Sodium Chloride 250 MLNifedipine 10 MG Q4H PRN PRN SL Ondansetron HCl 4 MG Q8H PRN PRN IV Phenol 5 SPR AY Q2H PRN PRN MM Potassium Chloride 10 MEQ ASDIR PRN P O Glycopyrrolate 0 .STK-MED ONE .ROUTE (DC) Nicar dipine HCl 25 MG ASDIR IV (DC) Sodium Chloride 250 MLBa citracin 0 .STK-MED ONE Z (DC) Nicardipine HCl 250 ML .ST K-MED ONE IV (DC) Protamine Sulfate 0 .STK-MED ONE IV (DC ) Heparin Sodium 0 .STK-MED ONE IV (DC) Heparin Sodium/Sod ium Chloride 500 ML .STK-MED ONE IV (DC) Phenylephri ne HCl 100 ML .STK-MED ONE IV (DC) Hydralazine HCl 0 .S TK-MED ONE .ROUTE (DC) Etomidate 0 .STK-MED ONE .ROUTE (DC) Fentanyl Citrate 0 .STK-MED ONE .ROUTE (DC) Prop ofol 0 .STK-MED ONE .ROUTE (DC) Lidocaine HCl 0 .STK-ME D ONE INJ (DC) Cefazolin Sodium 2,000 MG ONCALL IV (DC) Acetaminophen 650 MG Q4H PRN PRN PO (DC) Magnesi um Hydroxide 30 ML ASDIR PRN PO Zolpidem Tartrate 5 MG BEDTIME PRN PRN PO General appearance: alert, aw baldomero, oriented, no acute distressWound/incision: Locat ion: right neck Site condition: dressing clean dry, d ressing intact, incision intact, no drainage, no ecchymo sisNeck: tenderness (right neck), Right IJ BLAKE with minima l serosanguinous drainageCardiovascular: BP/pulses equal bilat., normal heart sounds, regular rate rhythmRespiratory: aerating well, clear to auscu ltation, symmetric expansion, no distressAbdomen: soft, non-tender, normal bowel sounds, no distentionGenitourinary: foleyExtremities: moves all, no edemaNeuro/SUPERINTENDENT DISTRIBUTION: alert, oriented X 3, CNII-XII in tacte, normal gait, normal speech, nomotor deficits, no sensory deficits, Tongue is midline without deviation ResultsFindings/Data:Laboratory Tests 09/30 1530 Blood Gas Puncture Site AL ABG pH (7.35 - 7.45 mmHg) 7 .42 ABG pCO2 (35.0 - 45.0 mmHg) 45.2 H ABG pO2 (80.0 - 100.0 mmol/L) 81.7 ABG HCO3 (20.0 - 26.0 mmol/L) 28.5 H ABG O2 Saturation (95.0 - 100.0 %) 96.1 ABG Base Exces s (-3.0 - 3.0 mmol/L) 3.4 H Nick Test (CHECK) NA Temperat ure (37 C) 37.0 O2 Delivery Device FT/NC FiO2 (%) 40 La boratory Tests 10/01 09/30 09/30 0450 2215 1515 Chemistry Sodium (137 - 145 MMOL/L) 136 L 138 Potassium (3.5 - 5. 1 MMOL/L) 3.9 3.3 L 3.1 L Chloride (98 - 107 MMOL/L) 96 L 100 Carbon Dioxide (22 - 30 MMOL/L) 32 H 31 H BUN (7 - 17 MG/DL) 7 10 Creatinine (0.52 - 1.04 MG/DL) 0.60 0.60 Glomerular Filtr Rate > 60 > 60 Glucose (74 - 10 6 MG/DL) 132 H 119 H Calcium (8.4 - 10.2 MG/DL) 8.7 8.9 M agnesium (1.6 - 2.3 MG/DL) 1.7 1.7 1.3 L Laboratory Tests 10/01 09/30 0450 1515 Hematology WBC (3.8 - 9.8 K/MM3) 10.7 H 10.8 H RBC (3.58 - 4.97 M/MM3) 3.70 3.64 Hgb (11 .2 - 14.9 G/DL) 12.0 11.8 Hct (33.2 - 43.5 %) 36.0 35.3 MC V (80.7 - 99.1 fL) 97 97 MCH (27.0 - 34.1 pg) 32.4 32.4 MC HC (32.2 - 35.7 %) 33.3 33.4 RDW (12.1 - 15.2 %) 15.2 14. 9 Plt Count (129 - 368 K/MM3) 298 281 MPV (7.4 - 10.4 fl) 8.8 8.9 Neut % (Auto) (43 - 75 %) 82.2 H 55.0 Lymph % (Auto) (14 - 44 %) 8.7 L 30.3 Harlan % (Auto) (4 - 13 %) 8.4 10.8 Eos % (Auto) (0 - 6 %) 0.1 3.0 Baso % (Auto) (0 - 2 %) 0.2 0.3 Neut # (Auto) (2.0 - 7.6 K/mm3) 8.82 H 5 .97 Lymph # (Auto) (1.0 - 3.8 K/mm3) 0.93 L 3.28 Harlan # (A uto) (0.1 - 0.8 K/mm3) 0.90 H 1.17 H Eos # (Auto) (0.0 - 0 .2 K/mm3) 0.01 0.32 H Baso # (Auto) (0.0 - 0.2 K/mm3) 0.02 0.03 Immature Gran % (0.0 - 2.0 %) 0.4 0.6 Nucleated RBC % (0 - 1.0 %) 0.0 0.0 Nucleated RBCs # (Man) (0.0 - 0 .1 K/mm3) 0.00 0.00 Radiology data:Recent Impressions:RAD IOLOGY - XR CHEST 1V 09/30 1516 Report Impression - St atus: SIGNED Entered: 09/30/2018 1532 IMPRESSION:Mild congestive changes bilaterally. No pneumothorax. Impression By: 16 - Ryann Zuniga MDRADI OLOGY - XR CHEST 1V 10/01 0449 Report Impression - St atus: SIGNED Entered: 10/01/2018 0748 IMPRESSION:Mild left basilar atelectasis and/or pleural fluid.Impress ion By: LakePR7 - Kayode Juarez MD Diagnosis, Assessmen t PlanFree Text A P:This is a 72 Y/F with LITTLE chano nosisS/p Right CEA-tongue is midline without deviation, m ild left facial droopOn statin/plavix/aspirinD/C right IJ BLAKE drain todayHTN-home meds resumed.DVT prophylaxis-SCDs and TEDsD/C foleyD/C radial arterial lineEncourage I S and ambulationPlan: CVU transfer this afternoon with stable B/P. Plan discussed with: patient, collaborating MD (Dr. Cruz) at 1105 Addendum 1: 10/01/18 1516 by Billie Valadez SENIOR HARDWARE DESIGN ENGINEER for Rohith Cruz MD A /RON-B/B elevated with systolic 180-200's this afternoon. Patient restrated on cardene gtt. procardia SL ordered. Will monitor in ICU. Patinet remains neurologically i ntact. right neck dressing D/c/I. D/w with Dr. Cruz, patient,and BS RN. at 1518 RPT #:[id number] OF REPORTPRProgress [id number]:27:00Z.[id number] lable for patient [id number]:18:51 2018-10-01 [id number]:27:00 [facility] 10:27:00 [facility] ([facility])Cardiovascular Surgery ProgREPORT#:[id number] REPORT STATUS: SignedDATE: 10/01/18 TIME: 1027 PATIENT: RACHEAL DIA UNIT #: [id number]#: [id number] ROOM/BED: [place] [address]-ADOB: [birth year] AGE: 72 SEX: F ATTEND: Rohith Cruz MDA AUTHOR: Billie Valadez NP * NASEEM [place] edits or amendments must be made on the electronic/com puter document * See AddendumGeneralPost-op: day 1 Status post:Right CEA SubjectivePatient reports:Yes: in cisional pain (right neck). No: chest pain, nausea, vomit ing. Comments:Seen at bedsideReports right neck incis ion painTongue is midline without deviation, mild le ft facial droop. No swallowing difficultiesHas ambulated w ell with PT this morning without any focal difficulties. Review of SystemsConstitutional:Denies: chills, fatigue, f ever, generalized weakness. Respiratory:Denies: NEGRO (d yspnea on exertion), SOB. Cardiovascular:Denies: chest jose n, NEGRO (dyspnea on exertion), edema, orthopnea, palpita tions. Objective Physical ExamVS/I O:Last Documented: R esult Date Time Pulse Ox 100 10/01 0700 B/P 129/68 0700 B/P Mean 91 10/01 0700 Pulse 84 10/01 0700 Resp 20 10/01 0700 Temp 98.7 10/01 0400 O2 Delivery Nasal axel ed 10/01 1999 O2 Flow Rate 2.576229 10/01 1999 FiO2 40 1512 24 hour I O ending at 0700: 10/01 0700 09/30 190 0 Intake Total 1245.00 1490.00 Output Total 1330 1240 Bal ance -85.00 250.00 Intake, IV 1005.00 1490.00 Intake, Oral 240 Output, 60 40 Drainage Output, 20 Emesis Output , Urine 1250 1200 Patient 70.864 kg Weight Weight Stand ing scale Measurement Method Patient Weight Weight (lb): 1 56Weight (oz): 3.65Weight (kg): 70.76 Medications:Active Meds + DC'd Last 24 HrsAspirin 81 MG DAILY PO (DC) Aspi rin 81 MG DAILY PO Clopidogrel Bisulfate 75 MG DAILY PO (D C) Clopidogrel Bisulfate 75 MG DAILY PO Hydrochloro thiazide 12.5 MG DAILY PO Isosorbide Mononitrate 30 MG DA SYBIL PO Losartan Potassium 100 MG DAILY PO Metoprolol Becerra ccinate 100 MG DAILY PO Magnesium Sulfate/Dextrose 100 M L ONCE ONE IV (DC) Dextrose/Sodium Chloride 1,000 ML Q2 0H IV (CAN) Levothyroxine Sodium 100 MCG DAILY@0630 PO Potassium Chloride 50 ML ONCE ONE IV (DC) Atorva statin Calcium 40 MG BEDTIME PO Famotidine 20 MG Q12HR IV Mupirocin 1 APPLIC BID NASAL Potassium Chloride 50 ML Q1H IV (DC) Potassium Chloride 50 ML ONCE ONE IV (DC ) Magnesium Sulfate 50 ML NOW ONE IV (DC) Potassiu m Chloride 50 ML Q2H IV (DC) Potassium Chloride/Dextrose/Sod Cl 1,000 ML Q12H IV Cefazo rachana Sodium 1,000 MG Q8H IV (DC) Sodium Chloride 10 MLAcetaminophen/Codeine Phosphate 2 UDTAB Q4H WI N PRN PO Acetaminophen/Codeine Phosphate 1 UDTAB Q4H PRN PRN PO Meperidine HCl 25 MG Q4H PRN PRN IM Meperidine H Cl 50 MG Q4H PRN PRN IM Acetaminophen 650 MG Q8H PRN PRN PO Acetaminophen 650 MG Q4H PRN PRN PO Benzocaine/M enthol 1 EACH Q2H PRN PRN MM (CKD) Bisacodyl 10 MG ASDIR PRN RECTAL Calcium Gluconate 1,000 MG ASDIR PRN IV S odium Chloride 100 MLNicardipine HCl 25 MG ASDIR PRN I V Sodium Chloride 250 MLNifedipine 10 MG Q4H PRN PRN SL Ondansetron HCl 4 MG Q8H PRN PRN IV Phenol 5 SPR AY Q2H PRN PRN MM Potassium Chloride 10 MEQ ASDIR PRN P O Glycopyrrolate 0 .STK-MED ONE .ROUTE (DC) Nicard ipine HCl 25 MG ASDIR IV (DC) Sodium Chloride 250 MLBacitr acin 0 .STK-MED ONE Z (DC) Nicardipine HCl 250 ML .STK- MED ONE IV (DC) Protamine Sulfate 0 .STK-MED ONE IV (DC) Heparin Sodium 0 .STK-MED ONE IV (DC) Heparin Sodium/Sod ium Chloride 500 ML .STK-MED ONE IV (DC) Phenylephri ne HCl 100 ML .STK-MED ONE IV (DC) Hydralazine HCl 0 .S TK-MED ONE .ROUTE (DC) Etomidate 0 .STK-MED ONE .ROUTE (DC) Fentanyl Citrate 0 .STK-MED ONE .ROUTE (DC) Prop ofol 0 .STK-MED ONE .ROUTE (DC) Lidocaine HCl 0 .STK-ME D ONE INJ (DC) Cefazolin Sodium 2,000 MG ONCALL IV (DC) Acetaminophen 650 MG Q4H PRN PRN PO (DC) Magnesi um Hydroxide 30 ML ASDIR PRN PO Zolpidem Tartrate 5 MG BEDTIME PRN PRN PO General appearance: alert, aw baldomero, oriented, no acute distressWound/incision: Locat ion: right neck Site condition: dressing clean dry, d ressing intact, incision intact, no drainage, no ecchymo sisNeck: tenderness (right neck), Right IJ BLAKE with minima l serosanguinous drainageCardiovascular: BP/pulses equal bilat., normal heart sounds, regular rate rhythmRespiratory: aerating well, clear to auscu ltation, symmetric expansion, no distressAbdomen: soft, non-tender, normal bowel sounds, no distentionGenitourinary: foleyExtremities: moves all, no edemaNeuro/SUPERINTENDENT DISTRIBUTION: alert, oriented X 3, CNII-XII in tacte, normal gait, normal speech, nomotor deficits, no sensory deficits, Tongue is midline without deviation ResultsFindings/Data:Laboratory Tests 09/30 153 0 Blood Gas Puncture Site AL ABG pH (7.35 - 7.45 mmHg) 7.42 ABG pCO2 (35.0 - 45.0 mmHg) 45.2 H ABG pO2 (80.0 - 1 00.0 mmol/L) 81.7 ABG HCO3 (20.0 - 26.0 mmol/L) 28.5 H ABG O2 Saturation (95.0 - 100.0 %) 96.1 ABG Base Excess (-3.0 - 3.0 mmol/L) 3.4 H Nick Test (CHECK) NA Tempera ture (37 C) 37.0 O2 Delivery Device FT/NC FiO2 (%) 40 Lab oratory Tests 10/01 09/30 09/30 0450 2215 1515 Chemistry Sodium (137 - 145 MMOL/L) 136 L 138 Potassium (3.5 - 5 .1 MMOL/L) 3.9 3.3 L 3.1 L Chloride (98 - 107 MMOL/ L) 96 L 100 Carbon Dioxide (22 - 30 MMOL/L) 32 H 31 H BU N (7 - 17 MG/DL) 7 10 Creatinine (0.52 - 1.04 MG/DL) 0.60 0.60 Glomerular Filtr Rate > 60 > 60 Glucose (74 - 10 6 MG/DL) 132 H 119 H Calcium (8.4 - 10.2 MG/DL) 8.7 8.9 M agnesium (1.6 - 2.3 MG/DL) 1.7 1.7 1.3 L Laboratory Tests 10/01 09/30 0450 1515 Hematology WBC (3.8 - 9.8 K/MM3) 10.7 H 10.8 H RBC (3.58 - 4.97 M/MM3) 3.70 3.64 Hgb (11 .2 - 14.9 G/DL) 12.0 11.8 Hct (33.2 - 43.5 %) 36.0 35.3 MC V (80.7 - 99.1 fL) 97 97 MCH (27.0 - 34.1 pg) 32.4 32.4 M CHC (32.2 - 35.7 %) 33.3 33.4 RDW (12.1 - 15.2 %) 15.2 14. 9 Plt Count (129 - 368 K/MM3) 298 281 MPV (7.4 - 10.4 fl) 8.8 8.9 Neut % (Auto) (43 - 75 %) 82.2 H 55.0 Lymph % (Auto) (14 - 44 %) 8.7 L 30.3 Harlan % (Auto) (4 - 13 %) 8.4 10.8 Eos % (Auto) (0 - 6 %) 0.1 3.0 Baso % (Auto) (0 - 2 %) 0.2 0.3 Neut # (Auto) (2.0 - 7.6 K/mm3) 8.82 H 5 .97 Lymph # (Auto) (1.0 - 3.8 K/mm3) 0.93 L 3.28 Harlan # (A uto) (0.1 - 0.8 K/mm3) 0.90 H 1.17 H Eos # (Auto) (0.0 - 0 .2 K/mm3) 0.01 0.32 H Baso # (Auto) (0.0 - 0.2 K/mm3) 0.02 0.03 Immature Gran % (0.0 - 2.0 %) 0.4 0.6 Nucleated RBC % (0 - 1.0 %) 0.0 0.0 Nucleated RBCs # (Man) (0.0 - 0.1 K/mm3) 0.00 0.00 Radiology data:Recent Impressions:RADIOLOGY - XR CHEST V 09/30 0816 * Report Impression - Status: SIGNED Entered: 09/30/2018 0112 IMPRESSION:Mild congestive changes bilaterally. No pneumothorax. Impression By: Bernie Logan MDRADIOLOGY - XR CHEST V 10/01 0449 Report I mpression - Status: SIGNED Entered: 10/01/2018 0748 IMPRES ONIEL:Mild left basilar atelectasis and/or pleural fluid.Im pression By: Travis7 - Kayode Juarez MD Diagnosis, Asses sment PlanFree Text A P:This is a 72 Y/F with LITTLE chano nosisS/p Right CEA-tongue is midline without deviation, m ild left facial droopOn statin/plavix/aspirinD/C right IJ BLAKE drain todayHTN-home meds resumed.DVT prophylaxis-SCDs and TEDsD/C foleyD/C radial arterial lineEncourage I S and ambulationPlan: CVU transfer this afternoon with stable B/P. Plan discussed with: patient, collaborating MD (Dr. Cruz) at 1105 Addendum 1: 10/01/18 1516 by Billie Valadez NP A/PHTN-B/B elevated with systolic 180-200's this afternoon. Patient restrated on c ardene gtt. procardia SL ordered. Will monitor in ICU. Patinet remains neurologically intact. right neck dressi ng D/c/I. D/w with Dr. Cruz, patient,and BS RN. Electro nically Signed by Billie Valadez NP on 10/01/18 at 1518 at 1954 RPT #:[id number] OF REPORTPRProgress [id number]:27:00Z.[id number] lable for patient [id number]:54:49 2018-10-01 [id number]:27:00 [facility] 10:27:00 [facility] ([facility])Cardiovascular Surgery ProgREPORT#:[id number] REPORT STATUS: SignedDATE: 10/01/18 TIME: 1027 PATIENT: RACHEAL DIA UNIT #: [id number]#: [id number] ROOM/BED: [facility] 7-ADOB: [birth year] AGE: 72 SEX: F ATTEND: Rohith Cruz [facility] AUTHOR: Billie Valadez NP edits or amendments must be made on the electronic/com puter document * See AddendumGeneralPost-op: day 1 Status post:Right CEA SubjectivePatient reports:Yes: in cisional pain (right neck). No: chest pain, nausea, vomit ing. Comments:Seen at bedsideReports right neck incis ion painTongue is midline without deviation, mild le ft facial droop. No swallowing difficultiesHas ambulated w ell with PT this morning without any focal difficulties. Review of SystemsConstitutional:Denies: chills, fatigue, f ever, generalized weakness. Respiratory:Denies: NEGRO (d yspnea on exertion), SOB. Cardiovascular:Denies: chest jose n, NEGRO (dyspnea on exertion), edema, orthopnea, palpita tions. Objective Physical ExamVS/I O:Last Documented: Result Date Time Pulse Ox 100 10/01 0700 B/P 129/68 0700 B/P Mean 91 10/01 0700 Pulse 84 10/01 0700 Resp 20 10/01 0700 Temp 98.7 10/01 0400 O2 Delivery Nasal can nula 10/01 1999 O2 Flow Rate 2.528567 10/01 1999 FiO2 40 09/30 1512 24 hour I O ending at 0700: 10/01 0700 1900 Intake Total 1245.00 1490.00 Output Total 1330 1 240 Balance -85.00 250.00 Intake, IV 1005.00 1490.00 Intake, Oral 240 Output, 60 40 Drainage Output, 20 Emes is Output, Urine 1250 1200 Patient 70.864 kg Weigh t Weight Standing scale Measurement Method Patient Weight Weight (lb): 156Weight (oz): 3.65Weight (kg): 70.76 Medications:Active Meds + DC'd Last 24 HrsAspiri n 81 MG DAILY PO (DC) Aspirin 81 MG DAILY PO Clopidogrel Bisulfate 75 MG DAILY PO (DC) Clopidogrel Bisulf ate 75 MG DAILY PO Hydrochlorothiazide 12.5 MG DAILY PO Is osorbide Mononitrate 30 MG DAILY PO Losartan Potassium 10 0 MG DAILY PO Metoprolol Succinate 100 MG DAILY PO Ma gnesium Sulfate/Dextrose 100 ML ONCE ONE IV (DC) Dextros e/Sodium Chloride 1,000 ML Q20H IV (CAN) Levothyroxine So dium 100 MCG DAILY@0630 PO Potassium Chloride 50 ML ONCE ONE IV (DC) Atorvastatin Calcium 40 MG BEDTIME PO Famot idine 20 MG Q12HR IV Mupirocin 1 APPLIC BID NASAL Potassi um Chloride 50 ML Q1H IV (DC) Potassium Chloride 50 ML ONCE ONE IV (DC) Magnesium Sulfate 50 ML NOW ONE IV ( DC) Potassium Chloride 50 ML Q2H IV (DC) Potassium Chloride/Dextrose/Sod Cl 1,000 ML Q12H IV Cefazo rachana Sodium 1,000 MG Q8H IV (DC) Sodium Chloride 10 MLAcetaminophen/Codeine Phosphate 2 UDTAB Q4H WI N PRN PO Acetaminophen/Codeine Phosphate 1 UDTAB Q4H PRN PRN PO Meperidine HCl 25 MG Q4H PRN PRN IM Meperidine H Cl 50 MG Q4H PRN PRN IM Acetaminophen 650 MG Q8H PRN PRN PO Acetaminophen 650 MG Q4H PRN PRN PO Benzocaine/M enthol 1 EACH Q2H PRN PRN MM (CKD) Bisacodyl 10 MG ASDIR PRN RECTAL Calcium Gluconate 1,000 MG ASDIR PRN IV S odium Chloride 100 MLNicardipine HCl 25 MG ASDIR PRN I V Sodium Chloride 250 MLNifedipine 10 MG Q4H PRN PRN SL Ondansetron HCl 4 MG Q8H PRN PRN IV Phenol 5 SPR AY Q2H PRN PRN MM Potassium Chloride 10 MEQ ASDIR PRN P O Glycopyrrolate 0 .STK-MED ONE .ROUTE (DC) Nicard ipine HCl 25 MG ASDIR IV (DC) Sodium Chloride 250 MLBacitr acin 0 .STK-MED ONE Z (DC) Nicardipine HCl 250 ML .STK- MED ONE IV (DC) Protamine Sulfate 0 .STK-MED ONE IV (DC) Heparin Sodium 0 .STK-MED ONE IV (DC) Heparin Sodium/Sod ium Chloride 500 ML .STK-MED ONE IV (DC) Phenylephri ne HCl 100 ML .STK-MED ONE IV (DC) Hydralazine HCl 0 . STK-MED ONE .ROUTE (DC) Etomidate 0 .STK-MED ONE .ROUTE (DC) Fentanyl Citrate 0 .STK-MED ONE .ROUTE (DC) Prop ofol 0 .STK-MED ONE .ROUTE (DC) Lidocaine HCl 0 .STK-ME D ONE INJ (DC) Cefazolin Sodium 2,000 MG ONCALL IV (DC) Acetaminophen 650 MG Q4H PRN PRN PO (DC) Magnesi um Hydroxide 30 ML ASDIR PRN PO Zolpidem Tartrate 5 MG BEDTIME PRN PRN PO General appearance: alert, aw baldomero, oriented, no acute distressWound/incision: Locat ion: right neck Site condition: dressing clean dry, d ressing intact, incision intact, no drainage, no ecchymo sisNeck: tenderness (right neck), Right IJ BLAKE with minima l serosanguinous drainageCardiovascular: BP/pulses equal bilat., normal heart sounds, regular rate rhythmRespiratory: aerating well, clear to auscu ltation, symmetric expansion, no distressAbdomen: soft, non-tender, normal bowel sounds, no distentionGenitourinary: foleyExtremities: moves all, no edemaNeuro/SUPERINTENDENT DISTRIBUTION: alert, oriented X 3, CNII-XII in tacte, normal gait, normal speech, nomotor deficits, no sensory deficits, Tongue is midline without deviation ResultsFindings/Data:Laboratory Tests 09/30 1530 Blood Gas Puncture Site AL ABG pH (7.35 - 7.45 mmHg) 7.42 ABG pCO2 (35.0 - 45.0 mmHg) 45.2 H ABG pO2 (80.0 - 1 00.0 mmol/L) 81.7 ABG HCO3 (20.0 - 26.0 mmol/L) 28.5 H ABG O2 Saturation (95.0 - 100.0 %) 96.1 ABG Base Excess (-3.0 - 3.0 mmol/L) 3.4 H Nick Test (CHECK) NA Temperat ure (37 C) 37.0 O2 Delivery Device FT/NC FiO2 (%) 40 La boratory Tests 10/01 09/30 09/30 0450 [id number] 1515 Chemistr y Sodium (137 - 145 MMOL/L) 136 L 138 Potassium (3.5 - 5. 1 MMOL/L) 3.9 3.3 L 3.1 L Chloride (98 - 107 MMOL/L) 96 L 100 Carbon Dioxide (22 - 30 MMOL/L) 32 H 31 H BUN (7 - 17 MG/DL) 7 10 Creatinine (0.52 - 1.04 MG/DL) 0.60 0.60 Glomerular Filtr Rate > 60 > 60 Glucose (74 - 10 6 MG/DL) 132 H 119 H Calcium (8.4 - 10.2 MG/DL) 8.7 8.9 Magnesium (1.6 - 2.3 MG/DL) 1.7 1.7 1.3 L Laboratory Tests 10/01 09/30 9720 1515 Hematology WBC (3.8 - 9.8 K/MM3) 10.7 H 10.8 H RBC (3.58 - 4.97 M/MM3) 3.70 3.64 Hgb (11 .2 - 14.9 G/DL) 12.0 11.8 Hct (33.2 - 43.5 %) 36.0 35.3 M CV (80.7 - 99.1 fL) 97 97 MCH (27.0 - 34.1 pg) 32.4 32.4 MCHC (32.2 - 35.7 %) 33.3 33.4 RDW (12.1 - 15.2 %) 1 5.2 14.9 Plt Count (129 - 368 K/MM3) 298 281 MPV (7.4 - 1 0.4 fl) 8.8 8.9 Neut % (Auto) (43 - 75 %) 82.2 H 55.0 Ly mph % (Auto) (14 - 44 %) 8.7 L 30.3 Harlan % (Auto) (4 - 13 %) 8.4 10.8 Eos % (Auto) (0 - 6 %) 0.1 3.0 Baso % ( Auto) (0 - 2 %) 0.2 0.3 Neut # (Auto) (2.0 - 7.6 K/mm3) 8 .82 H 5.97 Lymph # (Auto) (1.0 - 3.8 K/mm3) 0.93 L 3.2 8 Harlan # (Auto) (0.1 - 0.8 K/mm3) 0.90 H 1.17 H Eos # (Au to) (0.0 - 0.2 K/mm3) 0.01 0.32 H Baso # (Auto) (0.0 - 0. 2 K/mm3) 0.02 0.03 Immature Gran % (0.0 - 2.0 %) 0.4 0.6 Nucleated RBC % (0 - 1.0 %) 0.0 0.0 Nucleated RB Cs # (Man) (0.0 - 0.1 K/mm3) 0.00 0.00 Radiology data :Recent Impressions:RADIOLOGY - XR CHEST 1V 09/30 1516 * Report Impression - Status: SIGNED Entered: 09/30/2018 1532 IMPRESSION:Mild congestive changes bilaterally. No pneumothorax. Impression By: 16 Acacia Logan MDRADIOLOGY - XR CHEST 1V 10/01 0449 Report I mpression - Status: SIGNED Entered: 10/01/2018 0748 IMPRES ONIEL:Mild left basilar atelectasis and/or pleural fluid.Im pression By: LakePR7 - Kayode Juarez MD Diagnosis, Asses sment PlanFree Text A P:This is a 72 Y/F with LITTLE chano nosisS/p Right CEA-tongue is midline without deviation, m ild left facial droopOn statin/plavix/aspirinD/C right IJ BLAKE drain todayHTN-home meds resumed.DVT prophylaxis-SCDs and TEDsD/C foleyD/C radial arterial lineEncourage I S and ambulationPlan: CVU transfer this afternoon with stable B/P. Plan discussed with: patient, collaborating MD (Dr. Cruz) at 1105 at 1955 Addendum 1: 10/01/18 1516 by Billie Valadez NP A/PHTN-B /B elevated with systolic 180-200's this afternoon. Patient restrated on cardene gtt. procardia SL ordered. Will monitor in ICU. Patinet remains neurologically i ntact. right neck dressing D/c/I. D/w with Dr. Cruz, patient,and BS RN. at 1518Electr onically Signed by Rohith Cruz MD on 10/01/18 at 195 4 RPT #:[id number] OF REPORTPRProgress Hwdx9159-65-90F78:27:00Z.EUHK46049465-0323NJQstn lable for patient unrlEJMOXIVCOFNGLE1520-21-63X08:56:00 2018-10-01 RGgweeigbdj918707720247-17-26E17:08:[id number] [facility] 08:08:00 [place] [address] PATIENT NAME: RACHEAL DIA ADMIT DA TE: 09/30/18ACCOUNT NO: [id number] ROOM NO: [facility] AGE: 72 REPORT TYPE: ELECTROCARDIOGRAM SEX: F ADMITTING PHYSICIAN:Rohith Cruz MD ATTENDING PHYSICIAN:Rohith Cruz MD Order:[id number] Reason : CAD Test Date/Time Stamp:SatOct 01 08:08:06Blood Pressure : / mmHGVent. Rate : 072 BPM Atrial Rate : 072 BPM P-R Int : 158 ms QRS Dur : 078 ms QT Int : 396 ms P-R-T Axes : 071 009 066 degrees QTc Int : 433 ms Normal sinus rhythmNormal ECGWhen rosa isela red with ECG of 30-SEP-2018 17:52,No significant change w as foundConfirmed by JOSE MARC ([id number]) on 2018 4:11:20 PM Referred By: Rohith Cruz Confirmed by:JOSE MARC at 1611 PATIENT NAME: RACHEAL DIA IS .[id number] 9AVAvaila ble for patient xyeiQVIPNRDTDXFDJA8820-11-60E26: 12:05 2018-09-30 [id number]:05:00 [facility] 19:05:00 [facility])Adult General ConsultationREPORT#:[id number] REPORT STATUS: SignedDATE:09/30/18 TIME: 1904 PATIENT: MORAIMA DIA UNIT #: [id number]#: [id number] [address]WPXX: [address] AGE: 72 SEX: F ATTEND: Rohith Cruz MDA AUTHOR: Mariana Robison MD * ALL edits or amendments must be made on the electronic/computer document * History of Presen t IllnessRequesting Clinician: dr Salmon fo r consult:medical managementHPI:pt is 72 y/o femal e with h/o CAD and stent , HTN, HLD underwent Procedure s performed:Right carotid endarterectomy with gricelda shield patch arterioplasty. pt is admitted for post op care. History - Adult longitudinalPast medical history :Reports: Coronary artery disease, Hypertension, Dyslipide em, Thyroid disorder. Additional medical history:anita ral regurgitationsplemnectomyhypothyroidismthrombocy topenia Smoking status for patients 13 years old or olde r: Former SmokerAdditional social history:lives with husbandAllergies:Coded Allergies:No Known Allerg ies (09/29/18) Review of SystemsAll systems rev neg : except as marked ObjectiveVS/I O:Last Documented: Resul t Date Time Pulse Ox 96 09/30 1801 Pulse 77 09/30 1801 Resp 20 09/30 1801 B/P 109/61 09/30 1800 B/P Mean 80 1800 O2 Delivery Nasal cannula 09/30 1630 O2 Flow Rat e 3.140047 09/30 1630 FiO2 40 09/30 1512 Temp 97.6 09/30 1512 24 hour I O ending at 0700: 09/30 0700 06/ 7 1900 Intake Total Output Total Balance Patient 69.09 kg Weight Weight Stated/Reported Measurement Method Patie nt Weight Weight (lb): 156Weight (oz): 3.65Weight (kg): 70 .864 General appearance: awakeHead/Eyes: EOMI, PERRLA Neck: right neck dressing intactCardiovascular: regula r rate rhythm, normal heart soundsRespiratory: aerating well, symmetric expansionAbdomen: soft, non-tenderExtr emities: moves all, no edemaNeuro/SUPERINTENDENT DISTRIBUTION: alert, no motor deficitsSkin: dry, intactPsychiatry: normal affe ct ResultsFindings/Data:Laboratory Tests: 09/30 1530 1515 Blood Gas Puncture Site AL ABG pH (7.35 - 7 .45 mmHg) 7.42 ABG pCO2 (35.0 - 45.0 mmHg) 45.2 H ABG pO2 (80.0 - 100.0 mmol/L) 81.7 ABG HCO3 (20.0 - 26.0 mmol/L) 28.5 H ABG O2 Saturation (95.0 - 100.0 %) 96.1 ABG Base Excess (-3.0 - 3.0 mmol/L) 3.4 H Nick Test (CHECK) NA Temperature (37 C) 37.0 O2 Delivery Device FT/NC FiO2 (%) 40 Chemistry Sodium (137 - 145 MMOL/L) 138 Pota ssium (3.5 - 5.1 MMOL/L) 3.1 L Chloride (98 - 107 MMOL /L) 100 Carbon Dioxide (22 - 30 MMOL/L) 31 H BUN (7 - 17 MG/DL) 10 Creatinine (0.52 - 1.04 MG/DL) 0.60 Glomerul ar Filtr Rate > 60 Glucose (74 - 106 MG/DL) 119 H Calcium (8.4 - 10.2 MG/DL) 8.9 Magnesium (1.6 - 2.3 MG/DL) 1.3 L Hematology WBC (3.8 - 9.8 K/MM3) 10.8 H RBC (3. 58 - 4.97 M/MM3) 3.64 Hgb (11.2 - 14.9 G/DL) 11.8 Hct (33. 2 - 43.5 %) 35.3 MCV (80.7 - 99.1 fL) 97 MCH (27.0 - 34.1 pg) 32.4 MCHC (32.2 - 35.7 %) 33.4 RDW (12.1 - 15.2 %) 1 4.9 Plt Count (129 - 368 K/MM3) 281 MPV (7.4 - 10.4 fl) 8.9 Neut % (Auto) (43 - 75 %) 55.0 Lymph % (Auto) (14 - 4 4 %) 30.3 Harlan % (Auto) (4 - 13 %) 10.8 Eos % (Auto) (0 - 6 %) 3.0 Baso % (Auto) (0 - 2 %) 0.3 Neut # (Auto) (2.0 - 7.6 K/mm3) 5.97 Lymph # (Auto) (1.0 - 3.8 K/mm3) 3.2 8 Harlan # (Auto) (0.1 - 0.8 K/mm3) 1.17 H Eos # (Auto) (0 .0 - 0.2 K/mm3) 0.32 H Baso # (Auto) (0.0 - 0.2 K/mm3) 0. 03 Immature Gran % (0.0 - 2.0 %) 0.6 Nucleated RBC % (0 - 1.0 %) 0.0 Nucleated RBCs # (Man) (0.0 - 0.1 K/m m3) 0.00 Microbiology: Date/Time Procedure - Status Sourc e Growth 09/30 1515 MRSA Screen - RECD NASAL Recent Impressions:RADIOLOGY - XR CHEST 1V 09/30 1516 * Report Impression - Status: SIGNED Entered: 09/30/2018 1532 IMPRESSION:Mild congestive changes bilaterally. No pneumothorax. Impression By: Bernie Logan MD Diagnosis, Assessment Plan Free Text DxA P N otesFree Text DxA P Notes:pt is 72 y/o female with h/o CA D and stent , HTN, HLD, hypothyroidism underwent Proce dures performed:Right carotid endarterectomy with gricelda shield patch arterioplasty. pt is admitted for post op care. plan: contieu treatment per dr cruz and monit or clinical recovery. Quality MedicationsCurrent me dication review:I attest that the foregoing medication li st in the medical record is true, accurate, and complete t o the best of my knowledge. VTE ProphylaxisVTE prophyl axis initiated: yes Advanced Care Plan 65 or OlderDis cussed with: patient, surrogate decis. makerDiscussion included: code status (full code) BMI Screening > 25 or < 18.5Patient's BMI:Current BMI: 29.5 Tobacco Use/CounselingTobacco use/counseling: non tobacc o user HTN Screening/Follow-upLast documented vitals:La st Documented: Result Date Time Pulse Ox 100 10/01 1442 FiO2 28 10/01 1442 O2 Delivery Nasal cannula 10/01 14 42 Pulse 77 10/01 1441 Resp 15 10/01 1441 B/P 196/93 09/13 9 1434 B/P Mean 134 10/01 1434 Temp 98.1 10/01 1152 O2 Flow Rate 3.164719 10/01 0800 B/P assess/follow-up: pre-existing hx of HTN at 1500 RPT #:[id number] OF REPORTBZThgklrobglbr2864-53-01Q79:05:00Z.PDOC [id number] 0488AVAvailable for patient xkisDCSKWBUULIJHAG1661-26-89T00:01:02 2018-09-30 [id number]:52:[id number] [facility] 17:52:00 [place] [address] PATIENT NAME: RACHEAL DIA ADMIT DATE: 09/30/18ACCOUNT NO: [id number] ROOM NO: [facility] AGE: 72 REPORT TYPE: ELECTROCARDIOGRAM SEX: F ADMITTING PHYSICIAN:Rohith Cruz MD ATTENDING PHYSICIAN:Rohith Cruz MD Order:[id number] Reason : post op Test Date/Time Stamp:SatSep 30 2018 17:52:09Blood Pressure : / mmHGVent. Rate : 080 BPM Atrial Rate : 080 BPM P-R Int : 174 ms QRS Dur : 084 ms QT Int : 390 ms P-R-T Axes : 061 011 066 degrees QTc Int : 449 ms Normal sinus rhythmNormal ECGWhen rosa isela red with ECG of 29-SEP-2018 12:39,QT has lengthenedConfir med by JOSE MARC ([id number]) on 09/30/2018 6:07:46 PM Re ferred By: Rohith Cruz Confirmed by:JOSE MARC at 1807 PATIENT NAME: RACHEAL DIA ACCOUN T #: [id number].[id number] 8AVAvaila ble for patient yzcyXLHGWBISLURYRS3144-16-75J52: 08:06 2018-09-30 [id number]:15:[id number] [facility] 15:15:00 [place] [address] PATIENT NAME: RACHEAL DIA ADMIT D ATE: 09/30/18ACCOUNT NO: [id number] ROOM NO: [facility] AGE: 72 REPORT TYPE: OPERA TIVE REPORT SEX: F ADMITTING PHYSICIAN:Eliezer Cruz MD ATTENDING PHYSICIAN:Rohith Cruz MD OPERATIO N DATE: 09/30/2018 PREOPERATIVE DIAGNOSIS: Right interna l carotid stenosis. POSTOPERATIVE DIAGNOSIS: Right interna l carotid stenosis. PROCEDURE: CVP insertion, right caroti d endarterectomy, Hemashield patcharterioplasty. S URGEON: Rohith Cruz MD BORDER PATROL AGENT: Brisa Moser PA-C ANESTHESIA: General. COMPLICATIONS: None. DISPOS ITION: The patient to surgical ICU in stable condition. DESCRIPTION OF PROCEDURE: On 09/30/2018, the pat ient was brought to theoperating room, placed on the oper ating table in supine position, prepped anddraped in u sual fashion. Following introduction of satisfactory generalanesthesia, placement of monitoring lines , Lackey catheter, hips, shoulders,elbows padded in usual fashion. Left subclavian CVP was placed using Seldingerpercutaneous guidewire technique. The p atient was then prepped and draped inusual fashion. Nec k extended, turned to left 45 degree angle. Incisi on madealong the anterior border of the sternocleid omastoid muscle on the right side. We dissected down to t he right carotid sheath and vessels placed on the rightar terial branches. Heparin given. Clamps were placed, art eriotomy in thecommon carotid through a very tight greate r than 90% on deep thick plaque in theinternal carotid artery and extended up onto the internal carotid artery beyondthe plaque. We then irrigated with heparin saline solution. A shunt was placedand endarterectomy p erformed, plaque feathered out nicely internal carotidarte ry, we irrigated with heparin saline solution and then Hemashield patcharterioplasty closure with runni ng 5-0 Prolene suture. Prior to patch closurecompletion , shunt removed. All branches allowed to backbleed to [facility] anydebris and patch closure was completed. Clamp s were released. Excellent pulseby palpation and Dopple r within the incisions. Protamine given, hemostasisachiev ed. Wounds were irrigated with antibiotic saline thi ution and closed inlayers in usual fashion. Dressings appl ied. Hawk-Montez drain already hasbeen placed and t hen just before wound was closed, dressings applied, and thepatient was awakened intact neurologically an d taken to surgical ICU in stable PATIENT NAME: MORAIMA DIA condition. Dictat ed By: Rohith Cruz MD WT: OP:Z.MAIA/ISAÍAS/NTSDD: 0 09/30/2018 15:15:28DT: 09/30/2018 16:14:31Conf#: [id number] D#: [id number] cc: Jose Marc MD Authenticated by Shauna Cruz MD On 10/10/2018 11:40:08 PM Electronic ally Signed by Rohith Cruz MD on 10/10/18 at 23 40 PATIENT NAME: RACHEAL DIA lvgeoe6072-25-15T10:14:00Z.[id number] ilable for patient shtnNDQHOMOAETCBWA3149-45-30Z93:40:4 6 2018-09-30 [id number]:11:00 [facility] 15:11:00 [facility] ([facility])Brief Op NoteREPORT#:[id number] REPORT STATUS: SignedDATE:09/30/18 TIME: 1510 PA TIENT: RAMANDEEPRACHEAL UNIT #: [id number]#: [id number] [address]PYKL: [address] AGE : 72 SEX: F ATTEND: Rohith Cruz AU THOR: Brisa Moser * ALL edits or amendments mu st be made on the electronic/computer document * Op/In v Proc Note - BriefPre-procedure diagnosis:Right newsroom intern al carotid artery stenosisPost-procedure diagnosis: same as pre procedure dxProcedures performed:Right carot id endarterectomy with hemashield patch arterioplas ty. Insertion of left subclavian central line using sonosite US guidancePrimary Surgeon:Rohith Merino nt(s): RADHA Michelle-CAnesthesiologist:Dr. Alton Singleton, CRNAAnesthesia: general anesthesiaFindings:See d etailed op reportComplications: noneEstimated blood loss in ml's: 150ccSpecimens removed/altered: plaque from righ t carotid arteryDrain(s): Lackey Catheter Placed, BLAKE drainImplant(s): hemashield patchDisposition: IC U (in a ), stable at 1514 RPT #:[id number] OF REPORTOPOperative lfqncx8299-02-77S33:11:00Z.[id number] ailable for patient fmcjNKWFYXYDSSNDTG7656-69-92D39:14:4 2 2018-09-30 NXugucvzsti693330732804-15-19J86:11:00 [facility] 15:11:00 [facility] ([facility])Brief Op NoteREPORT#:[id number] REPORT STATUS: SignedDATE:06/18/19 TIME: 1511 RADHA TIENT: RACHEAL DIA UNIT #: [id number]#: [id number] [address] AGE : 72 SEX: F ATTEND: Rohith Cruz DT: AUTHOR: Brisa Moser * ALL edits or amend ments must be made on the electronic/computer document * Op/Inv Proc Note - BriefPre-procedure diagnosis:Right i nternal carotid artery stenosisPost-procedure diagnosis: same as pre procedure dxProcedures performed:Right carot id endarterectomy with hemashield patch arterioplas ty. Insertion of left subclavian central line using sonosite US guidancePrimary Surgeon:Rohith Merino nt(s): RADHA Michelle-CAnesthesiologist:Dr. Alton Singleton, CRNAAnesthesia: general anesthesiaFindings:See d etailed op reportComplications: noneEstimated blood loss in ml's: 150ccSpecimens removed/altered: plaque from righ t carotid arteryDrain(s): Lackey Catheter Placed, BLAKE drainImplant(s): hemashield patchDisposition: IC U (in a ), stable at 1514 at 1535 RPT #:[id number] OF REPORTOPOperative kudlpm0628-23-76T82:11:00Z.[id number] ailable for patient tbhwLISABXSTEPSZAQ1998-12-45G89:35:1 8 2018-09-29 [id number]:39:[id number] [facility] 12:39:00 [place] [address] PATIENT NAME: ARCHEAL DIA ADMIT DATE: ACCOUNT NO: [id number] ROOM NO: MEDICAL RECOR D NO: [id number] AGE: 72 REPORT TYPE: ELECTROCARDIOGRA M SEX: F ADMITTING PHYSICIAN:Rohith Cruz MD ATTENDI PHYSICIAN:Rohith Cruz MD Order:[id number] Reason : PRE-OP Test Date/Time Stamp:SatSep 29 2018 12:39:21Blood Pressure : / mmHGVent. Rate : 057 BPM Atrial Rate : 057 BPM P-R Int : 164 ms QRS Dur : 080 ms QT Int : 406 ms P-R-T Axes : 063 053 071 degrees QTc Int : 395 ms Sinus bradycardiaOtherwise normal ECGWh en compared with ECG of 20-SEP-2018 06:12,T wave am plitude has increased in Inferior leadsConfirmed by JOSE STOCK ([id number]) on 09/29/2018 4:48:14 PM Referred By : Rohith Cruz Confirmed by:JOSE MARC Electronicall y Signed by Jose Marc MD on 09/29/18 at 1648 PATIE NT NAME: RACHEAL DIA .[id number] 3AVAvasaint barnab[facility] for patient jndrPRBEUHSQLWSBBR2971-97-67U82: 48:25 2018-09-20 [id number]:37:[id number] [facility] 12:37:00 [place] [address] PATIENT NAME: RACHEAL DIA ADMIT DA TE: 09/20/18ACCOUNT NO: [id number] ROOM NO: [facility] RECORD NO: [id number] AGE: 72 REPORT TYPE: CONSULTATIO N REPORT SEX: F ADMITTING PHYSICIAN: ATTENDING PHYSICIAN:Jose Marc MD CONSULTATION DATE: 09/20/2018 CONSULTING PHYSICIAN: Rohith nugent MD CARDIAC SURGERY SERVICE DIAGNOSES: Bilateral car otid stenosis, coronary artery disease, hypertension, and hyperlipidemia. BRIEF HISTORY: This is a 72-yea r-old woman status post coronary artery stent inthe pa st. Cardiac cath today shows only some moderate magali nary artery diseasewith normal LV function. Plan is t o treat the patient medically. She hadcarotid duplex terri ging in the past and recently, which showed high-grade rightinternal carotid artery stenosis 90%, left 70%. On carotid artery angiogramtoday she has a high-gra de 90% stenosis of right internal carotid artery and 70 %on the left side. The patient denies any previous histo ry of stroke or TIA. REVIEW OF SYSTEMS: Otherwise are negative. She did not have an HI at the timeof the previou s stent. She has hypertension and hyperlipidemia. No diab etes. Review of systems otherwise is negative. No hist ory of hemophilia orcoagulopathy. SOCIAL HISTORY: She w as a smoker in the past, but not currently. FAMILY HI STORY: Positive in family for hypertension, diabetes, andhyperlipidemia. The patient denies varicose v ein, vein stripping or phlebitis,DVT. PHYSICAL EXAMINATION :GENERAL: Demonstrates well-nourished female, in no appare nt distress.NECK: No carotid bruits. Carotid pulse present. Radial pulse present.CHEST: Clear.HEART: Regular rate and rhythm without murmurs.ABDOMEN: Soft, nontender, without mass.EXTREMITIES: Peripheral pulse present.BREAS TS, GENITOURINARY, AND RECTAL: Not done.NEUROLOGIC: Physiological. ASSESSMENT: Right internal caroti d artery stenosis. RECOMMENDATION: For the patient to hav e a right carotid endarterectomy. Thepatient will be disch arged home today. We will schedule the patient as an P ATIENT NAME: RACHEAL DIA 9 outpatient. The procedure, the alternatives, pos sible risks and complicationsincluding the inherent an d other risks are explained to the patient and family,th ey understand and accept, want to proceed. They had a chance to ask questionand want to proceed. Dictated By: Rohith Cruz MD WT: CON:ZSULY/ISAÍAS/NTSDD: 9 12:37:21DT: 09/20/2018 13:42:00Conf#: [id number] D#: [id number] Authenticated by Rohith Cruz MD On 10/10/2018 11:31:10 PM at 2331 PATIENT NAME: RACHEAL DIA :42:00Z. [id number] for patient sdvvRBSYMIEWJZFFSC1527-53-31P60:31:59 2018-09-20 [id number]:18:[id number] [facility] 10:18:[address] [address] PATIENT NAME: RACHEAL DIA ADMIT DA TE: 09/20/18ACCOUNT NO: [id number] ROOM NO: [facility] RECORD NO: [id number] AGE: 72 REPORT TYPE: eCAROTID ULT RASOUND SEX: F ADMITTING PHYSICIAN: ATTENDING PHYSICIAN:Jose Marc MD *[facility]*[address] [place] [address] 57[address]Fcztq Carotid Duplex Study Patient: Moraima DiaStudy Date: 09/20/2018 BP: 141 / 72 Locati on: [facility]URN: [id number] : 1945 Age: 72 Height: 61 in / 154.9 cmAccession#: [id number] Gender: Andrea Fink ght: 145 lb / 65.9 kgBMI/BSA: 27.5 kg/m 2 / 1.7 m 2 *Ord ering Physician: * Jose Marc MD*Interpreting Phys ician: * Jose Marc MD*Steel Sampler: * Ruthann Nogueira , RVT --------- Indications: CAD [place] or graft. --------- Study data: Carotid duplex study. Bilateral evaluation with vnwakovnu8Q imaging, c olor Doppler imaging, and spectral Doppler analysis.L ocation: Recovery room. Patient status: Outpatient. Vickie landers roomnumber: CH2. Procedure: A vascular evaluatio n was performed. Imageswere obtained using a CosmosID ultrasound machine. Image quality wasadequate. S shantel status: Routine. --------- Findings Carotid/vertebral arteri es:Right common carotid: The vessel is normal; it has no evidence ofdisease.Right internal carotid: The vessel is tortuous. The proximal vessel hasmild to moderate plaque. Proximal vessel lesion: There is a PATIENT NAME: MORAIMA DIA 60-79%stenosis.Ri ght external carotid: The vessel has minimal plaque. Right vertebral: The arterial flow direction is antegr oliverio.Left vertebral: The arterial flow direction is antegr oliverio.Left common carotid: The vessel is normal; it has no evidence ofdisease.Left internal carotid: The vessel is t ortuous. The proximal vessel hasplaque. Proximal vessel l esion: There is a 60-79%stenosis.Left external carotid: The vessel has plaque. --------- Arterial flow: Location PSV* EDV* PSV Stenosis Location PSV* EDV* PSV Stenosis ratio ratioR CCA, prox 52 12 ----- -------- L CCA, 52 12 ---- - -------- proxR CCA, 60 17 ----- -------- L CCA, 46 14 ----- --------distal distalR ICA, prox 185 73 3. 08 60-79% L ICA, 152 59 2.95 60-79% proxR ICA, 54 18 0.9 -------- L ICA, 43 12 0.82 --------distal distalR ECA 77 ---- ----- -------- L ECA 96 ---- ----- --------R williams tebral 51 21 ----- -------- L 66 25 ----- -------- vertebr a l *Velocities are expressed in cm/sec, Diameters are expressed in cm --------- Conclusions 1. Study suggests 60- 79% stenosis involving the right internal carotid ar blu and left internal carotid artery.2. Antegrade flow n oted in the right vertebral artery and left vertebral ar blu. Prepared and electronically signed by Becky Marc MD09/20/2018 10:18 at 1019 PATIENT NAME: RACHEAL DIA gnostic rlvggdm0562-39-41G56:18:00Z.[id number] ailable for patient usvnKCTLOIGDUGOGTF9882-86-18Z16:19:2 0 2018-09-20 [id number]:38:[id number] [facility] 07:38:[address] [address] PATIENT NAME: RACHEAL DIA ADMIT DA TE: 09/20/18ACCOUNT NO: [id number] ROOM NO: [facility] RECORD NO: [id number] AGE: 72 REPORT TYPE: CARDIAC CATHETERIZATION REPORT SEX: F ADMITTING PHYSICIA N: ATTENDING PHYSICIAN:Jose Marc MD PROCEDURE DATE: 09/20/2018 CARDIOVASCULAR PROCEDURE SENIOR ACCOUNT DIRECTOR : Jose Marc MD INDICATION FOR THE PROCEDURE: Dyspne a, coronary artery disease, previous stent,severe c arotid disease, and uncontrolled hypertension. TITLE OF THE PROCEDURE:1. Left heart catheterization.2. Selec tive bilateral carotid angiograms.3. Selective bilate ral renal angiograms. ESTIMATED BLOOD LOSS: Minimal. COMPL ICATIONS: None. CONTRAST: 140 mL. ANESTHESIA: Conscious se dation with Versed and fentanyl that was actually notre quired and local anesthesia with lidocaine. FINAL DIAGN OSES: Single-vessel coronary artery disease, patent circumflexstent, severe bilateral carotid diseas e and no renal artery stenosis. PROCEDURE IN DETAIL: Afte r informed consent, the patient was brought to the cardiac catheterization lab in a stable fasting nonsedat ed state. She did notrequire conscious sedation in the cat h lab. She did have Valium and Benadryl inthe holding a gertrudis. After local anesthesia, a 6-Welsh sheath was pl aced in theright common femoral artery using standard te chniques and fluoroscopy. Afterheparinization, left coron oliva angiogram showed calcified coronary system. Sheh as a patent circumflex stent in the mid vessel. She h as 30% plaquing the firstobtuse marginal and 60% mid-to -distal disease in the circumflex: The circumflexand the right coronary artery appeared to be a codominant syst em. The rightcoronary artery is small with 20% plaquing. The LAD had scattered plaquing of20%. Left ventricular a ngiogram showed an ejection fraction of 75%. Leftventricu lar end-diastolic pressure of 20 and no wall motion abnormalities oraortic valve gradient. The right carotid was about 90% calcified. The leftcarotid was ecc entric at 70%. Both were at the internal. Given heruncontr olled hypertension with multiple medications, I did se lective bilateralrenal angiograms that showed no renal a rtery stenosis. The right groin was PATIENT NAME: RACHEAL MAN sealed using Hannah o-Seal. There were no complications. The patient tolerat edthe procedure well. The patient will be referred for carotid surgery and shewill be continued on medical ther apy for her coronary artery disease. Dictated By: Jose Marc MD WT: CATH:WILFREDO/MANDIE/NTSDD: 09/20/2018 07:38: 16DT: 09/20/2018 08:06:11Conf#: [id number]/DID#: [id number] Authenticated by Jose Marc MD On 11/2018 08:15:26 AM at 0815 PATIENT NAME: RACHEAL DIA [id number]:06:00Z.[id number] able for patient [id number]:15:57 2018-09-20 [id number] [facility] 06:12:00 [place] [address] PATIENT NAME: RACHEAL DIA ADMIT DA TE: 09/20/18ACCOUNT NO: [id number] ROOM NO: MEDICA L RECORD NO: [id number] AGE: 72 REPORT TYPE: ELECTROCARDI OGRAM SEX: F ADMITTING PHYSICIAN: ATTENDING PHYSICIAN:Jose Marc MD Order:[id number] Test Reason : PREOP Test Date/Time Stamp:SatSep 20 06:12:04Blood Pressure : / mmHGVent. Rate : 058 BPM Atrial Rate : 058 BPM P-R Int : 174 ms QRS Dur : 076 ms QT Int : 400 ms P-R-T Axes : 046 044 039 degrees QTc Int : 392 ms Sinus bradycardiaOtherwise normal ECGNo previous ECGs availableConfirmed by JOSE MARC ([id number]) on 09/20/2018 9:21:38 AM Referred By: Jose Kim onfirmed by:JOSE MARC at 0921 PATIENT NAME: RACHEAL DIA .[id number] 0AVAvaila ble for patient [id number]: 22:04 2018-09-19 [id number] [facility] 18:46:00 [place] [address] PATIENT NAME: RACHEAL DIA ADMIT D ATE: 09/20/18ACCOUNT NO: [id number] ROOM NO: [facility] RECORD NO: [id number] AGE: 72 REPORT TYPE: HISTORY AND PHYSICAL SEX: F ADMITTING PHYSICIAN: ATTENDING PHYSICIAN:Jose Marc MD PATIENT NAME: RACHEAL DIA ADMIT DATE:09/20/2018ADMISSION DATE: 11/2018 REASON FOR ADMISSION: Cardiac and carotid angiog blayne to assess for possiblerevascularization. HISTORY OF PRESENT ILLNESS: Racheal is a 72-year-old lady with known coronaryartery disease and multiple cardiovascul ar risk factors, who was recentlyevaluated for symptoms of dyspnea. Noninvasive cardiovascular workup showedworsening right carotid disease around 80% to 99%. It was 51% to 69% in thepast. The left one remai magdiel at 51% to 69%. Her echocardiogram remained stablewi th mild mitral regurgitation and normal ejection fractio n. Her last nuclearstress test in 2016 was negative for ischemia. She has had known coronaryartery disea se with single-vessel coronary artery disease and had a circumflexstent, Taxus 3 x 12 back in 2003. Give n her progression of carotid disease andknown coronary artery disease. She is here for cardiac and carotid ang iogramsto assess for possible revascularization and right carotid surgery. The patientis denying any chest pains, TIAs, strokes, or congestive heart failure symptoms. P AST MEDICAL HISTORY: Remarkable for coronary artery disease as per above,hypertension, dilated ascending aor ta, hyperlipidemia, mitral regurgitation,bradycardia , dizziness, carotid disease, hypothyroidism, radha rgic rhinitis,history of thrombocytopenia, status pos t splenectomy in 1984. PAST SURGICAL HISTORY: As m entioned above. ALLERGIES: NO KNOWN DRUG ALLERGIES. MEDIC ATIONS: Potassium daily, aspirin 81 mg daily, Plavix 75 mg daily,Levothroid 100 mcg daily, isosorbide 30 mg daily, Plavix 75 mg daily,atorvastatin 40 mg daily, losartan/hydrochlorothiazide 100/12.5 mg daily,m etoprolol 100 mg daily. SOCIAL HISTORY: There is no histor y of smoking, alcohol, or street drug use.The patient quit smoking years ago. FAMILY HISTORY: Positive for atherosclerotic cardiovascular disease. REVIEW O F SYSTEMS: Remarkable for headaches, dry mouth. No acute GI or GUsymptoms. No TIAs or strokes. The rest of t he review of system is enclosed inthe chart. PATIENT NAME: RACHEAL DIA PHYS ICAL EXAMINATION:GENERAL: Reveals a pleasant elderly lady in no acute distress.VITAL SIGNS: Blood pressure 12 2/85, pulse 68 and regular, respiratory rate 16unlabor ed, temperature afebrile.HEENT: Head, atraumatic and normocephalic. Eyes and ENT examination withinno rmal for age.NECK: Supple. No jugular venous distention, bruits, or lymphadenopathy.Normal upstroke.LUNGS: Clear and resonant.HEART: Regular rate and rhythm. No murm urs or gallops.ABDOMEN: Soft. No tenderness, no organom egaly, no masses or bruits.EXTREMITIES: 2+ distal pulses. No edema, cyanosis, or clubbing.NEUROLOGIC: Alert and orie nted x3. The examination appears to be nonfocal. LABORATO RY DATA: Pending. Noninvasive cardiovascular workup enclo sed. IMPRESSION: This is a 72-year-old lady with know n coronary artery disease andprevious stenting, wh o has progression of her carotid disease. She has dyspnea,multiple cardiovascular risk factors. Sh e has most likely also progressed withher coronary art lilian disease. She is here for cardiac and carotid ang iograms toassess for possible revascularization of her c oronaries and for right carotidsurgery. The recommendation is to proceed with the above. The risks and benefits o f theplanned procedures were discussed in detail w ith the patient and she is willingto proceed. Rest as pe r orders. Dictated By: Jose Marc MD WT: HP:Z.MAIA/LETI Keyes/NTSDD: 09/19/2018 18:46:47DT: 09/19/2018 19:09:56Conf#: [id number]/DID#: [id number] and Edited by Jose Marc MD On 09/20/18 6:13:56 AM Electron ically Signed by Jose Marc MD on 09/20/18 at 061 5 PATIENT NAME: RACHEAL DIA and physical [id number]:09:00Z.[id number] AVAvailab le for patient [id number]:1 6:10
[2023-03-16] MEDS ORDERED: LIDOCAINE 1% MPF 5 ML VIAL ONE (12:01)
--- NOTE | 2023-03-16 12:23 | ER ---
Nurse's Notes [facility] Name: Racheal Dia Age: 77 yrs Sex: Female : 1945 Arrival Date: 03/16/2023 Time: 11:17 Bed 12 Private MD: Diagnosis: Abscessed cyst Presentation: 03/16 11:27 Chief complaint: Patient states: Abscess to upper back X 1 month. Coronavirus screen: ld1 At this time, the client does not indicate any symptoms associated with coronavirus-19. Ebola Screen: No symptoms or risks identified at this time. Initial Sepsis Screen: Does the patient meet any 2 criteria? No. Patient's initial sepsis screen is negative. Does the patient have a suspected source of infection? No. Patient's initial sepsis screen is negative. Risk Assessment: Do you want to hurt yourself or someone else? Patient reports no desire to harm self or others. Onset of symptoms was March 16, 2023 at 11:28. 11:27 Method Of Arrival: Ambulatory ld1 11:27 Acuity: AISHA 4 ld1 Triage Assessment: 11:26 General: Appears in no apparent distress. comfortable, Behavior is calm, cooperative, ld1 appropriate for age. Pain: Denies pain. EENT: No signs and/or symptoms were reported regarding the EENT system. Neuro: Level of Consciousness is awake, alert, obeys commands, Oriented to person, place, time, situation. Cardiovascular: Capillary refill < 3 seconds Patient's skin is warm and dry. Respiratory: Airway is patent Respiratory effort is even, unlabored. GI: Abdomen is flat, non-distended. : No signs and/or symptoms were reported regarding the genitourinary system. Derm: Abscess located on right scapular area. Musculoskeletal: No deficits noted. Historical: - Allergies: 11: No Known Allergies; ld1 - PMHx: 11: CHF; Hypercholesterolemia; Hypertension; Hypertensive disorder; ld1 - PSHx: : Heart Stents; Splenectomy; ld1 - Immunization history:: Adult Immunizations up to date. - Social history:: Smoking status: Patient denies any tobacco usage or history of. Patient uses alcohol, occasionally. Screenin:29 [facility] ED Fall Risk Assessment (Adult) History of falling in the last 3 months, cm10 including since admission No falls in past 3 months (0 pts) Confusion or Disorientation No (0 pts). Abuse screen: Denies threats or abuse. Denies injuries from another. Nutritional screening: No deficits noted. Tuberculosis screening: No symptoms or risk factors identified. Vital Signs: 11:27 BP 135 / 94; Pulse 61; Resp 18; Temp 97.8; Pulse Ox 96% on R/A; Weight 65.77 kg; Height ld1 5 ft. 1 in. ; Pain 0/10; 11:27 Body Mass Index 27.40 (65.77 kg, 154.94 cm) ld1 11:27 Pain Scale: Adult ld1 ED Course: 11:19 Patient arrived in ED. rg4 11:25 Verna Duarte FNP [facility] 11:25 Jaret Swift MD is Attending Physician. [facility] 11:26 Arm band placed on right wrist. ld1 11:28 Triage completed. ld1 12:29 Patient has correct armband on for positive identification. Bed in low position. Call cm10 light in reach. Provided Education on: ER process and procedures.. 12:29 No provider procedures requiring assistance completed. Patient did not have IV access cm10 during this emergency room visit. Dressings: non-adherent dressing x 1 right scapular area. Administered Medications: 12:28 Drug: Bacitracin Topical Ointment (500 unit/g) 1 application Topical once Route: cm10 Topical; Site: affected area; 12:30 Drug: Lidocaine Infiltration (1 %) 5 ml 5 ml Infiltration once; to bedside {Note: Given cm10 by provider.} Volume: 5 ml; Route: Infiltration; Medication: 12:29 VIS not applicable for this client. cm10 Outcome: 12:22 Discharge ordered by . [facility] 12:29 Discharged to home ambulatory, with family, cm10 12:29 Condition: good 12:29 Discharge instructions given to patient, Instructed on discharge instructions, follow up and referral plans. medication usage, wound care, Demonstrated understanding of instructions, follow-up care, medications, wound care, Prescriptions given X 1, 12:46 Patient left the ED. Signatures: Maisha eSgura RN RN hb Garcia, Rubi rg4 Marichuy Avila RN RN ld1 Verna Duarte FNP [employer] Yajaira Fitzgerald RN RN cm10
--- NOTE | 2023-03-16 12:23 | EDPHYS ---
Physician Documentation [facility] Name: Racheal Dia Age: 77 yrs Sex: Female : 1945 Arrival Date: 03/16/2023 Time: 11:17 Bed 12 Private MD: ED Physician Jaret Swift HPI: 03/16 11:26 This 77 yrs old Black Female presents to ER via Ambulatory with complaints of Abscess. [facility] 11:26 The patient presents with an abscess of the right scapular area. Description: The jh7 affected area is small, localized, well demarcated, erythematous, fluctuant. Onset: The symptoms/episode began/occurred 1 month(s) ago. Possible cause(s): cyst. Associated signs and symptoms: Pertinent positives: erythema, Pertinent negatives: discharge, drainage, foreign body sensation, fever. Historical: - Allergies: 11:26 No Known Allergies; ld1 - PMHx: 11:26 CHF; Hypercholesterolemia; Hypertension; Hypertensive disorder; ld1 - PSHx: 11:26 Heart Stents; Splenectomy; ld1 - Immunization history:: Adult Immunizations up to date. - Social history:: Smoking status: Patient denies any tobacco usage or history of. Patient uses alcohol, occasionally. ROS: 11:26 Constitutional: Negative for fever, chills, and weight loss, Eyes: Negative for injury, jh7 pain, redness, and discharge, Cardiovascular: Negative for chest pain, palpitations, and edema, Respiratory: Negative for shortness of breath, cough, wheezing, and pleuritic chest pain, Abdomen/GI: Negative for abdominal pain, nausea, vomiting, diarrhea, and constipation, MS/Extremity: Negative for injury and deformity, Skin: Negative for injury, rash, and discoloration, Neuro: Negative for headache, weakness, numbness, tingling, and seizure, 11:26 Skin: Positive for abscess, of the right scapular area, 11:26 All other systems are negative, Exam: 11:26 Constitutional: This is a well developed, well nourished patient who is awake, alert, jh7 and in no acute distress. Neck: Trachea midline, no thyromegaly or masses palpated, and no cervical lymphadenopathy. Supple, full range of motion without nuchal rigidity, or vertebral point tenderness. No Meningismus. Cardiovascular: Regular rate and rhythm with a normal S1 and S2. No gallops, murmurs, or rubs. Normal PMI, no JVD. No pulse deficits. Respiratory: Lungs have equal breath sounds bilaterally, clear to auscultation and percussion. No rales, rhonchi or wheezes noted. No increased work of breathing, no retractions or nasal flaring. Abdomen/GI: Soft, non-tender, with normal bowel sounds. No distension or tympany. No guarding or rebound. No evidence of tenderness throughout. Skin: Warm, dry with normal turgor. Normal color with no rashes, no lesions, and no evidence of cellulitis. MS/ Extremity: Pulses equal, no cyanosis. Neurovascular intact. Full, normal range of motion. Neuro: Awake and alert, GCS 15, oriented to person, place, time, and situation. Motor strength 5/5 in all extremities. Sensory grossly intact. Normal gait. 11:26 Skin: abscess, that is small, approximately 2 cm(s), of the right scapular area, with fluctuance, with induration, Vital Signs: 11:27 BP 135 / 94; Pulse 61; Resp 18; Temp 97.8; Pulse Ox 96% on R/A; Weight 65.77 kg; Height ld1 5 ft. 1 in. ; Pain 0/10; 11:27 Body Mass Index 27.40 (65.77 kg, 154.94 cm) ld1 11:27 Pain Scale: Adult ld1 Procedures: 11:26 I \T\ D: Incision and drainage was performed for an abscess of the right scapular area [facility] Prepped with chlorhexidine. Anesthetized with 3 ml's 1% Lidocaine. Incised with #15 blade. Drained moderate amount purulent fluid. Loculations removed. Dressing: non-Adherent dressing, the patient tolerated the procedure well. MDM: 11:25 Patient medically screened. [facility] 12:35 Differential diagnosis: abscess, Abscess to cyst. Data reviewed: vital signs, nurses [facility] notes. I considered the following discharge prescriptions or medication management in the emergency department Medications were administered in the Emergency Department. See MAR. Care significantly affected by the following chronic conditions: Hypertension, Congestive Heart Failure. Counseling: I had a detailed discussion with the patient and/or guardian regarding the historical points, exam findings, and any diagnostic results supporting the discharge/admit diagnosis, to return to the emergency department if symptoms worsen or persist or if there are any questions or concerns that arise at home. Response to treatment: the patient's symptoms have mildly improved after treatment. Special discussion: Informed the patient that due to the thick appearance of the drainage, this is likely a cyst and it might return. If this occurs follow-up with general surgery for removal.. 03/16 11:29 Order name: I\T\D Setup; Complete Time: 12: [facility] 03/16 12:22 Order name: Wound dressing; Complete Time: [facility] Administered Medications: : Drug: Bacitracin Topical Ointment (500 unit/g) 1 application Topical once Route: cm10 Topical; Site: affected area; :30 Drug: Lidocaine Infiltration (1 %) 5 ml 5 ml Infiltration once; to bedside {Note: Given cm10 by provider.} Volume: 5 ml; Route: Infiltration; Disposition Summary: 03/16/23 12:22 Discharge Ordered Notes: Location: Home [facility] Problem: new [facility] Symptoms: have improved [facility] Condition: Stable [facility] Diagnosis - Abscessed cyst [facility] Followup: [facility] - With: Private Physician - When: 2 - 3 days - Reason: Recheck today's complaints Discharge Instructions: - Discharge Summary Sheet [facility] - Skin Abscess [facility] Forms: - Medication Reconciliation Form [facility] - Thank You Letter [facility] - Antibiotic Education [facility] - Patient Portal Instructions [facility] - Leadership Thank You Letter [facility] Prescriptions: - mupirocin 2 % Topical ointment - apply 1 application TOPICAL route 3 times per day for 7 days; 22 gram; Refills: [facility] 0, Product Selection Permitted - Doxycycline Hyclate 100 mg Oral tablet - take 1 tablet ORAL route every 12 hours for 7 days; 14 tablet; Refills: 0, jh7 Product Selection Permitted Signatures: Marichuy Avila RN RN ld1 Verna Duarte FNP FNP 7 Yajaira Givens RN RN cm10
[2023-03-16] MEDS ORDERED: MUPIROCIN 2% OINT 22GM TUBE TOP ONE (12:36)
[2023-03-16 12:52] VITALS: BP 135/94; TEMP 97.8; O2SAT 96
== END 2023-03-16 12:46 | disposition home or self-care (01) ==
LOC: ER 11:17
PROC: 0H96XZZ Drainage of Back Skin, External Approach (ICD-10-PCS; principal; 2023-03-16)
DX: L02.212 Cutaneous abscess of back [any part, except buttock and flank] (principal)
CPT/HCPCS: 99283; 10060; J2001

== ENCOUNTER 2023-06-10 11:09 | Inpatient (IN) | payer OTHER ==
--- OUTSIDE RECORDS SUMMARY | 2023-06-10 11:19 | XMS REPORT | Continuity of Care Document ---
Author Name Unknown Address [address] [facility] [address] [place] [address] [facility] thconnect Address [address] [facility] [address] [place] [address] Care Team Providers Care Travel Pt Name Role Phone Jeremi Alaniz Attending Clinician Unavailable Rohith Kc Attending Clinician UnavailJose Garduno Admitting Clinician Unavailable Payers Payer Name Policy Type Policy Number Effective Date Expirati on Date Source MEDICARE NOVITAS MB [id number] 2011 00:00:00 [facility] MEDICARE NOVITAS MB [id number] 2011 00:00:00 [facility] MEDICARE NOVITAS MB [id number] 2011 00:00:00 [facility] MEDICARE PART A \T\ B [id number] 2011 00:00:00 Problems Condition Name Condition Details Condition Category Status Onset Date Resolution Date Last Treatment Date Treating Clinician Comments Source [id number] Stage 3a chronic kidney disease Problem [facility] [id number] Macrocytic Problem Com [facility] [id number] 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 Problem [facility] [id number] Hypercalce em Problem [facility] [id number] Non-season al allergic rhinitis, unspecifie d trigger Problem [facility] [id number] Constipati on, unspecifie d constipati on type Problem [facility] [id number] GERD without esophagiti s Problem [facility] [id number] Mixed hyperlipid emia Problem [facility] [id number] Chronic diastolic congestive heart failure Problem [facility] [id number] Hypothyroi dism, unspecifie d type Problem [facility] [id number] Paroxysmal atrial fibrillati on Problem [facility] [id number] Essential hypertensi on Problem [facility] [id number] S/P splenectom y Problem [facility] Standard chest X-ray abnormal Abnormal chest x-ray Problem [facility] Allergies, Adverse Reactions, Alerts Allergy Name Allergy Type Status Severity Reaction(s) Onset Date Inactive Date Treating Clinician Comments Source No Known Allergie s DA Active U 05-04 00:00: 00 [facility] No Known Allergie s DA Active U 05-04 00:00: 00 [facility] No Known Allergie s DA Active U 09-29 00:00: 00 [facility] No Known Allergie s DA Active U 09-29 00:00: 00 [facility] No Known Contrast Allergie s DA Active U 06-12 00:00: 00 [facility] No Known Drug Allergie s DA Active U 06-12 00:00: 00 [facility] No Known Food Allergie s DA Active U 06-12 00:00: 00 [facility] No Known Other Allergie s DA Active U 06-12 00:00: 00 [facility] NO KNOWN ALLERGIE S Drug Class Active [facility] Social History Social Habit Start Date Stop Date Quantity Comments Source History of Tobacco Use [facility] Sex Assigned At [facility] Smoking Status Start Date Stop Date Source Former Smoker 2023-02-15 00:00:00 2023-02-15 00:00:00 [facility] Medications Ordered Medication Name Filled Medication Name Start Date Stop Date Current Medication? Ordering Clinician Indication Dosage Frequency Signature (SIG) Comments Components Source Losartan Potassium 50 MG Losartan Potassium 50 MG 2020-04 00:00: 00 No 1{table t} QD Losartan Potassium 50 MG Klor-Con M20 20 MEQ Klor-Con M20 20 MEQ No Klor-Con M20 20 MEQ Aspirin 81 81 MG Aspirin 81 81 MG No 1{table t} QD Aspirin 81 81 MG Atorvastati n Calcium 40 MG Atorvastati n Calcium 40 MG No 1{table t} QD Atorvastat in Calcium 40 MG Docusate Sodium 100 MG Docusate Sodium 100 MG No 1{capsu le_as_n eeded} BID Docusate Sodium 100 MG Metoprolol Tartrate 50 MG Metoprolol Tartrate 50 MG No 1{table t_with_ food} QD Metoprolol Tartrate 50 MG Sodium Chloride Sodium Chloride No Sodium Chloride Losartan Potassium 25 MG Losartan Potassium 25 MG No 1{table t} QD Losartan Potassium 25 MG Polyethylen e Glycol Polyethylen e Glycol No Polyethyle ne Glycol Atorvastati n Calcium 40 MG Atorvastati n Calcium 40 MG No Atorvastat in Calcium 40 MG Clopidogrel Bisulfate 75 MG Clopidogrel Bisulfate 75 MG No 1{table t} QD Clopidogre l Bisulfate 75 MG MiraLax MiraLax No MiraLax Potassium Chloride 20 MEQ Potassium Chloride 20 MEQ No 1{packe t_with_ food} QD Potassium Chloride 20 MEQ amLODIPine Besylate 5 MG amLODIPine Besylate 5 MG No 1{table t} QD amLODIPine Besylate 5 MG methylPREDN ISolone 4 MG methylPREDN ISolone 4 MG No methylPRED NISolone 4 MG Levothyroxi ne Sodium 100 MCG Levothyroxi ne Sodium 100 MCG No QD Levothyrox ine Sodium 100 MCG Potassium Chloride Li ER 20 MEQ Potassium Chloride Li ER 20 MEQ No Potassium Chloride Li ER 20 MEQ Metoprolol Tartrate 50 MG Metoprolol Tartrate 50 MG No Metoprolol Tartrate 50 MG Pantoprazol e Sodium 40 MG Pantoprazol e Sodium 40 MG No 1{table t} QD Pantoprazo le Sodium 40 MG Klor-Con M20 20 MEQ Klor-Con M20 20 MEQ No Klor-Con M20 20 MEQ Euthyrox 100 MCG Euthyrox 100 MCG No Euthyrox 100 MCG Aspirin 81 81 MG Aspirin 81 81 MG No 1{table t} QD Aspirin 81 81 MG methylPREDN ISolone 4 MG methylPREDN ISolone 4 MG No methylPRED NISolone 4 MG Aspirin 81 81 MG Aspirin 81 81 MG No 1{table t} QD Aspirin 81 81 MG Sodium Chloride Sodium Chloride No Sodium Chloride Losartan Potassium 25 MG Losartan Potassium 25 MG No 1{table t} QD Losartan Potassium 25 MG Polyethylen e Glycol Polyethylen e Glycol No Polyethyle ne Glycol Levothyroxi ne Sodium 100 MCG Levothyroxi ne Sodium 100 MCG No Levothyrox ine Sodium 100 MCG MiraLax MiraLax No MiraLax Docusate Sodium 100 MG Docusate Sodium 100 MG No 1{capsu le_as_n eeded} BID Docusate Sodium 100 MG Potassium Chloride 20 MEQ Potassium Chloride 20 MEQ No 1{packe t_with_ food} QD Potassium Chloride 20 MEQ amLODIPine Besylate 5 MG amLODIPine Besylate 5 MG No 1{table t} QD amLODIPine Besylate 5 MG Pantoprazol e Sodium 40 MG Pantoprazol e Sodium 40 MG No 1{table t} QD Pantoprazo le Sodium 40 MG Clopidogrel Bisulfate 75 MG Clopidogrel Bisulfate 75 MG No 1{table t} QD Clopidogre l Bisulfate 75 MG Losartan Potassium-H CTZ 100-12.5 MG Losartan Potassium-H CTZ 100-12.5 MG No Losartan Potassium- HCTZ 100-12.5 MG Atorvastati n Calcium 40 MG Atorvastati n Calcium 40 MG No Atorvastat in Calcium 40 MG Metoprolol Tartrate 50 MG Metoprolol Tartrate 50 MG No Metoprolol Tartrate 50 MG Klor-Con M20 20 MEQ Klor-Con M20 20 MEQ No Klor-Con M20 20 MEQ Atorvastati n Calcium 40 MG Atorvastati n Calcium 40 MG No 1{table t} QD Atorvastat in Calcium 40 MG Aspirin 81 81 MG Aspirin 81 81 MG No 1{table t} QD Aspirin 81 81 MG methylPREDN ISolone 4 MG methylPREDN ISolone 4 MG No methylPRED NISolone 4 MG Sodium Chloride Sodium Chloride No Sodium Chloride Losartan Potassium 25 MG Losartan Potassium 25 MG No 1{table t} QD Losartan Potassium 25 MG Polyethylen e Glycol Polyethylen e Glycol No Polyethyle ne Glycol Levothyroxi ne Sodium 100 MCG Levothyroxi ne Sodium 100 MCG No Levothyrox ine Sodium 100 MCG MiraLax MiraLax No MiraLax Docusate Sodium 100 MG Docusate Sodium 100 MG No 1{capsu le_as_n eeded} BID Docusate Sodium 100 MG Potassium Chloride 20 MEQ Potassium Chloride 20 MEQ No 1{packe t_with_ food} QD Potassium Chloride 20 MEQ amLODIPine Besylate 5 MG amLODIPine Besylate 5 MG No 1{table t} QD amLODIPine Besylate 5 MG Metoprolol Tartrate 50 MG Metoprolol Tartrate 50 MG No 1{table t_with_ food} QD Metoprolol Tartrate 50 MG Pantoprazol e Sodium 40 MG Pantoprazol e Sodium 40 MG No 1{table t} QD Pantoprazo le Sodium 40 MG Clopidogrel Bisulfate 75 MG Clopidogrel Bisulfate 75 MG No 1{table t} QD Clopidogre l Bisulfate 75 MG Atorvastati n Calcium 40 MG Atorvastati n Calcium 40 MG No Atorvastat in Calcium 40 MG Metoprolol Tartrate 50 MG Metoprolol Tartrate 50 MG No Metoprolol Tartrate 50 MG Klor-Con M20 20 MEQ Klor-Con M20 20 MEQ No Klor-Con M20 20 MEQ Docusate Sodium 100 MG Docusate Sodium 100 MG No 1{capsu le_as_n eeded} BID Docusate Sodium 100 MG Aspirin 81 81 MG Aspirin 81 81 MG No 1{table t} QD Aspirin 81 81 MG methylPREDN ISolone 4 MG methylPREDN ISolone 4 MG No methylPRED NISolone 4 MG Sodium Chloride Sodium Chloride No Sodium Chloride Losartan Potassium 25 MG Losartan Potassium 25 MG No 1{table t} QD Losartan Potassium 25 MG Polyethylen e Glycol Polyethylen e Glycol No Polyethyle ne Glycol Levothyroxi ne Sodium 100 MCG Levothyroxi ne Sodium 100 MCG No Levothyrox ine Sodium 100 MCG MiraLax MiraLax No MiraLax Docusate Sodium 100 MG Docusate Sodium 100 MG No 1{capsu le_as_n eeded} BID Docusate Sodium 100 MG Polyethylen e Glycol Polyethylen e Glycol No Polyethyle ne Glycol Potassium Chloride 20 MEQ Potassium Chloride 20 MEQ No 1{packe t_with_ food} QD Potassium Chloride 20 MEQ amLODIPine Besylate 5 MG amLODIPine Besylate 5 MG No 1{table t} QD amLODIPine Besylate 5 MG Pantoprazol e Sodium 40 MG Pantoprazol e Sodium 40 MG No 1{table t} QD Pantoprazo le Sodium 40 MG Clopidogrel Bisulfate 75 MG Clopidogrel Bisulfate 75 MG No 1{table t} QD Clopidogre l Bisulfate 75 MG Atorvastati n Calcium 40 MG Atorvastati n Calcium 40 MG No Atorvastat in Calcium 40 MG Metoprolol Tartrate 50 MG Metoprolol Tartrate 50 MG No Metoprolol Tartrate 50 MG Klor-Con M20 20 MEQ Klor-Con M20 20 MEQ No Klor-Con M20 20 MEQ Losartan Potassium 50 MG Losartan Potassium 50 MG No Losartan Potassium 50 MG Clopidogrel Bisulfate 75 MG Clopidogrel Bisulfate 75 MG No Clopidogre l Bisulfate 75 MG Aspirin 81 81 MG Aspirin 81 81 MG No 1{table t} QD Aspirin 81 81 MG methylPREDN ISolone 4 MG methylPREDN ISolone 4 MG No methylPRED NISolone 4 MG MiraLax MiraLax No MiraLax Sodium Chloride Sodium Chloride No Sodium Chloride Losartan Potassium 25 MG Losartan Potassium 25 MG No 1{table t} QD Losartan Potassium 25 MG Polyethylen e Glycol Polyethylen e Glycol No Polyethyle ne Glycol Levothyroxi ne Sodium 100 MCG Levothyroxi ne Sodium 100 MCG No Levothyrox ine Sodium 100 MCG MiraLax MiraLax No MiraLax Docusate Sodium 100 MG Docusate Sodium 100 MG No 1{capsu le_as_n eeded} BID Docusate Sodium 100 MG Potassium Chloride 20 MEQ Potassium Chloride 20 MEQ No 1{packe t_with_ food} QD Potassium Chloride 20 MEQ amLODIPine Besylate 5 MG amLODIPine Besylate 5 MG No 1{table t} QD amLODIPine Besylate 5 MG Pantoprazol e Sodium 40 MG Pantoprazol e Sodium 40 MG No 1{table t} QD Pantoprazo le Sodium 40 MG Clopidogrel Bisulfate 75 MG Clopidogrel Bisulfate 75 MG No 1{table t} QD Clopidogre l Bisulfate 75 MG Sodium Chloride Sodium Chloride No Sodium Chloride Atorvastati n Calcium 40 MG Atorvastati n Calcium 40 MG No Atorvastat in Calcium 40 MG Metoprolol Tartrate 50 MG Metoprolol Tartrate 50 MG No Metoprolol Tartrate 50 MG Klor-Con M20 20 MEQ Klor-Con M20 20 MEQ No Klor-Con M20 20 MEQ EQ Stool Softener 100 MG EQ Stool Softener 100 MG No EQ Stool Softener 100 MG Clopidogrel Bisulfate 75 MG Clopidogrel Bisulfate 75 MG No Clopidogre l Bisulfate 75 MG Metoprolol Tartrate 50 MG Metoprolol Tartrate 50 MG No Metoprolol Tartrate 50 MG Potassium Chloride 20 MEQ Potassium Chloride 20 MEQ No 1{packe t_with_ food} QD Potassium Chloride 20 MEQ Losartan Potassium 50 MG Losartan Potassium 50 MG No Losartan Potassium 50 MG Levothyroxi ne Sodium 100 MCG Levothyroxi ne Sodium 100 MCG No Levothyrox ine Sodium 100 MCG Docusate Sodium 100 MG Docusate Sodium 100 MG No 1{capsu le_as_n eeded} BID Docusate Sodium 100 MG Atorvastati n Calcium 40 MG Atorvastati n Calcium 40 MG No Atorvastat in Calcium 40 MG methylPREDN ISolone 4 MG methylPREDN ISolone 4 MG No methylPRED NISolone 4 MG Pantoprazol e Sodium 40 MG Pantoprazol e Sodium 40 MG No 1{table t} QD Pantoprazo le Sodium 40 MG Polyethylen e Glycol Polyethylen e Glycol No Polyethyle ne Glycol amLODIPine Besylate 5 MG amLODIPine Besylate 5 MG No 1{table t} QD amLODIPine Besylate 5 MG Potassium Chloride 20 MEQ Potassium Chloride 20 MEQ No 1{packe t_with_ food} QD Potassium Chloride 20 MEQ MiraLax MiraLax No MiraLax amLODIPine Besylate 5 MG amLODIPine Besylate 5 MG No 1{table t} QD amLODIPine Besylate 5 MG Klor-Con M20 20 MEQ Klor-Con M20 20 MEQ No Klor-Con M20 20 MEQ Sodium Chloride Sodium Chloride No Sodium Chloride Aspirin 81 81 MG Aspirin 81 81 MG No 1{table t} QD Aspirin 81 81 MG Metoprolol Tartrate 50 MG Metoprolol Tartrate 50 MG No Metoprolol Tartrate 50 MG Levothyroxi ne Sodium 100 MCG Levothyroxi ne Sodium 100 MCG No QD Levothyrox ine Sodium 100 MCG Losartan Potassium 50 MG Losartan Potassium 50 MG No 1{table t} QD Losartan Potassium 50 MG Pantoprazol e Sodium 40 MG Pantoprazol e Sodium 40 MG No 1{table t} QD Pantoprazo le Sodium 40 MG Atorvastati n Calcium 40 MG Atorvastati n Calcium 40 MG No Atorvastat in Calcium 40 MG Euthyrox 88 MCG Euthyrox 88 MCG No Euthyrox 88 MCG Atorvastati n Calcium 40 MG Atorvastati n Calcium 40 MG No 1{table t} QD Atorvastat in Calcium 40 MG Sodium Chloride Sodium Chloride No Sodium Chloride Levothyroxi ne Sodium 88 MCG Levothyroxi ne Sodium 88 MCG No QD Levothyrox ine Sodium 88 MCG Clopidogrel Bisulfate 75 MG Clopidogrel Bisulfate 75 MG No 1{table t} QD Clopidogre l Bisulfate 75 MG Metoprolol Tartrate 100 MG Metoprolol Tartrate 100 MG No 1{table t_with_ food} QD Metoprolol Tartrate 100 MG Aspirin 81 81 MG Aspirin 81 81 MG No 1{table t} QD Aspirin 81 81 MG amLODIPine Besylate 5 MG amLODIPine Besylate 5 MG No 1{table t} QD amLODIPine Besylate 5 MG Polyethylen e Glycol Polyethylen e Glycol No Polyethyle ne Glycol Pantoprazol e Sodium 40 MG Pantoprazol e Sodium 40 MG No 1{table t} QD Pantoprazo le Sodium 40 MG EQ Stool Softener 100 MG EQ Stool Softener 100 MG No EQ Stool Softener 100 MG penicillin penicillin No penicillin Losartan Potassium-H CTZ 100-12.5 MG Losartan Potassium-H CTZ 100-12.5 MG No Losartan Potassium- HCTZ 100-12.5 MG MiraLax MiraLax No MiraLax Potassium Chloride 20 MEQ Potassium Chloride 20 MEQ No 1{packe t_with_ food} QD Potassium Chloride 20 MEQ Potassium Chloride Li ER 20 MEQ Potassium Chloride Li ER 20 MEQ No Potassium Chloride Li ER 20 MEQ Euthyrox 88 MCG Euthyrox 88 MCG No Euthyrox 88 MCG Losartan Potassium-H CTZ Losartan Potassium-H CTZ Yes Jeremi Alaniz 1 tablet [facility] Polyethylen e Glycol Polyethylen e Glycol Yes Jeremi Alaniz not defined [facility] MiraLax MiraLax Yes Jeremi Alaniz not defined [facility] Atorvastati n Calcium Atorvastati n Calcium Yes Jeremi Alaniz 1 tablet [facility] Aspirin 81 Aspirin 81 Yes Jeremi Alaniz 1 tablet [facility] Pantoprazol e Sodium Pantoprazol e Sodium Yes Jeremi Alaniz 1 tablet [facility] Sodium Chloride Sodium Chloride Yes Jeremi Alaniz not defined [facility] Potassium Chloride Li ER Potassium Chloride Li ER Yes Jeremi Alaniz TAKE 1 TABLET BY MOUTH ONCE DAILY [facility] Metoprolol Tartrate Metoprolol Tartrate Yes Jeremi Alaniz TAKE 1 TABLET BY MOUTH ONCE DAILY WITH FOOD FOR 90 DAYS [facility] Levothyroxi ne Sodium Levothyroxi ne Sodium Yes Jeremi Alaniz 1 tablet in the morning on an empty stomach [facility] Metoprolol Tartrate Metoprolol Tartrate Yes Jeremi Alaniz 1 tablet with food [facility] Clopidogrel Bisulfate Clopidogrel Bisulfate Yes Jeremi Alaniz 1 tablet [facility] Docusate Sodium Docusate Sodium Yes Jeremi Alaniz 1 capsule as needed [facility] Potassium Chloride Potassium Chloride Yes Jeremi Alaniz 1 packet with food [facility] penicillin penicillin Yes Jeremi Alaniz not defined [facility] Atorvastati n Calcium 40 MG Atorvastati n Calcium 40 MG No 1{table t} QD Atorvastat in Calcium 40 MG Sodium Chloride Sodium Chloride No Sodium Chloride Levothyroxi ne Sodium 88 MCG Levothyroxi ne Sodium 88 MCG No QD Levothyrox ine Sodium 88 MCG Metoprolol Tartrate 100 MG Metoprolol Tartrate 100 MG No 1{table t_with_ food} QD Metoprolol Tartrate 100 MG Clopidogrel Bisulfate 75 MG Clopidogrel Bisulfate 75 MG No Clopidogre l Bisulfate 75 MG Aspirin 81 81 MG Aspirin 81 81 MG No 1{table t} QD Aspirin 81 81 MG amLODIPine Besylate 5 MG amLODIPine Besylate 5 MG No 1{table t} QD amLODIPine Besylate 5 MG Polyethylen e Glycol Polyethylen e Glycol No Polyethyle ne Glycol Pantoprazol e Sodium 40 MG Pantoprazol e Sodium 40 MG No 1{table t} QD Pantoprazo le Sodium 40 MG EQ Stool Softener 100 MG EQ Stool Softener 100 MG No EQ Stool Softener 100 MG penicillin penicillin No penicillin Losartan Potassium-H CTZ 100-12.5 MG Losartan Potassium-H CTZ 100-12.5 MG No Losartan Potassium- HCTZ 100-12.5 MG MiraLax MiraLax No MiraLax Potassium Chloride 20 MEQ Potassium Chloride 20 MEQ No 1{packe t_with_ food} QD Potassium Chloride 20 MEQ Potassium Chloride Li ER 20 MEQ Potassium Chloride Li ER 20 MEQ No Potassium Chloride Li ER 20 MEQ Euthyrox 88 MCG Euthyrox 88 MCG No Euthyrox 88 MCG Atorvastati n Calcium 40 MG Atorvastati n Calcium 40 MG No 1{table t} QD Atorvastat in Calcium 40 MG Sodium Chloride Sodium Chloride No Sodium Chloride Levothyroxi ne Sodium 88 MCG Levothyroxi ne Sodium 88 MCG No QD Levothyrox ine Sodium 88 MCG Metoprolol Tartrate 100 MG Metoprolol Tartrate 100 MG No 1{table t_with_ food} QD Metoprolol Tartrate 100 MG Clopidogrel Bisulfate 75 MG Clopidogrel Bisulfate 75 MG No Clopidogre l Bisulfate 75 MG Aspirin 81 81 MG Aspirin 81 81 MG No 1{table t} QD Aspirin 81 81 MG amLODIPine Besylate 5 MG amLODIPine Besylate 5 MG No 1{table t} QD amLODIPine Besylate 5 MG Polyethylen e Glycol Polyethylen e Glycol No Polyethyle ne Glycol Pantoprazol e Sodium 40 MG Pantoprazol e Sodium 40 MG No 1{table t} QD Pantoprazo le Sodium 40 MG EQ Stool Softener 100 MG EQ Stool Softener 100 MG No EQ Stool Softener 100 MG penicillin penicillin No penicillin Losartan Potassium-H CTZ 100-12.5 MG Losartan Potassium-H CTZ 100-12.5 MG No Losartan Potassium- HCTZ 100-12.5 MG MiraLax MiraLax No MiraLax Potassium Chloride 20 MEQ Potassium Chloride 20 MEQ No 1{packe t_with_ food} QD Potassium Chloride 20 MEQ Potassium Chloride Li ER 20 MEQ Potassium Chloride Li ER 20 MEQ No Potassium Chloride Li ER 20 MEQ penicillin penicillin No penicillin Aspirin 81 81 MG Aspirin 81 81 MG No 1{table t} QD Aspirin 81 81 MG Levothyroxi ne Sodium 88 MCG Levothyroxi ne Sodium 88 MCG No QD Levothyrox ine Sodium 88 MCG Potassium Chloride 20 MEQ Potassium Chloride 20 MEQ No 1{packe t_with_ food} QD Potassium Chloride 20 MEQ Atorvastati n Calcium 40 MG Atorvastati n Calcium 40 MG No 1{table t} QD Atorvastat in Calcium 40 MG Sodium Chloride Sodium Chloride No Sodium Chloride Docusate Sodium 100 MG Docusate Sodium 100 MG No 1{capsu le_as_n eeded} BID Docusate Sodium 100 MG MiraLax MiraLax No MiraLax Levothyroxi ne Sodium 88 MCG Levothyroxi ne Sodium 88 MCG No QD Levothyrox ine Sodium 88 MCG Clopidogrel Bisulfate 75 MG Clopidogrel Bisulfate 75 MG No Clopidogre l Bisulfate 75 MG Euthyrox 88 MCG Euthyrox 88 MCG No Euthyrox 88 MCG EQ Stool Softener 100 MG EQ Stool Softener 100 MG No EQ Stool Softener 100 MG Metoprolol Tartrate 100 MG Metoprolol Tartrate 100 MG No 1{table t_with_ food} QD Metoprolol Tartrate 100 MG Metoprolol Tartrate 100 MG Metoprolol Tartrate 100 MG No QD Metoprolol Tartrate 100 MG Potassium Chloride Li ER 20 MEQ Potassium Chloride Li ER 20 MEQ No Potassium Chloride Li ER 20 MEQ Losartan Potassium-H CTZ 100-12.5 MG Losartan Potassium-H CTZ 100-12.5 MG No Losartan Potassium- HCTZ 100-12.5 MG Pantoprazol e Sodium 40 MG Pantoprazol e Sodium 40 MG No 1{table t} QD Pantoprazo le Sodium 40 MG amLODIPine Besylate 5 MG amLODIPine Besylate 5 MG No 1{table t} QD amLODIPine Besylate 5 MG Polyethylen e Glycol Polyethylen e Glycol No Polyethyle ne Glycol Atorvastati n Calcium 40 MG Atorvastati n Calcium 40 MG No Atorvastat in Calcium 40 MG Potassium Chloride 20 MEQ Potassium Chloride 20 MEQ No 1{packe t_with_ food} QD Potassium Chloride 20 MEQ Aspirin 81 81 MG Aspirin 81 81 MG No 1{table t} QD Aspirin 81 81 MG Sodium Chloride Sodium Chloride No Sodium Chloride penicillin penicillin No penicillin amLODIPine Besylate 5 MG amLODIPine Besylate 5 MG No 1{table t} QD amLODIPine Besylate 5 MG Losartan Potassium-H CTZ 100-12.5 MG Losartan Potassium-H CTZ 100-12.5 MG No Losartan Potassium- HCTZ 100-12.5 MG Metoprolol Tartrate 100 MG Metoprolol Tartrate 100 MG No QD Metoprolol Tartrate 100 MG Atorvastati n Calcium 40 MG Atorvastati n Calcium 40 MG No Atorvastat in Calcium 40 MG Polyethylen e Glycol Polyethylen e Glycol No Polyethyle ne Glycol Metoprolol Tartrate 50 MG Metoprolol Tartrate 50 MG No 1{table t_with_ food} QD Metoprolol Tartrate 50 MG Losartan Potassium 50 MG Losartan Potassium 50 MG No Losartan Potassium 50 MG Levothyroxi ne Sodium 88 MCG Levothyroxi ne Sodium 88 MCG No QD Levothyrox ine Sodium 88 MCG Losartan Potassium 50 MG Losartan Potassium 50 MG No 1{table t} QD Losartan Potassium 50 MG Atorvastati n Calcium 40 MG Atorvastati n Calcium 40 MG No 1{table t} QD Atorvastat in Calcium 40 MG Pantoprazol e Sodium 40 MG Pantoprazol e Sodium 40 MG No 1{table t} QD Pantoprazo le Sodium 40 MG MiraLax MiraLax No MiraLax Euthyrox 88 MCG Euthyrox 88 MCG No Euthyrox 88 MCG Docusate Sodium 100 MG Docusate Sodium 100 MG No 1{capsu le_as_n eeded} BID Docusate Sodium 100 MG EQ Stool Softener 100 MG EQ Stool Softener 100 MG No EQ Stool Softener 100 MG Clopidogrel Bisulfate 75 MG Clopidogrel Bisulfate 75 MG No Clopidogre l Bisulfate 75 MG Potassium Chloride Li ER 20 MEQ Potassium Chloride Li ER 20 MEQ No Potassium Chloride Li ER 20 MEQ Levothyroxi ne Sodium 88 MCG Levothyroxi ne Sodium 88 MCG No QD Levothyrox ine Sodium 88 MCG Potassium Chloride 20 MEQ Potassium Chloride 20 MEQ No 1{packe t_with_ food} QD Potassium Chloride 20 MEQ Aspirin 81 81 MG Aspirin 81 81 MG No 1{table t} QD Aspirin 81 81 MG Sodium Chloride Sodium Chloride No Sodium Chloride Levothyroxi ne Sodium 88 MCG Levothyroxi ne Sodium 88 MCG No QD Levothyrox ine Sodium 88 MCG amLODIPine Besylate 5 MG amLODIPine Besylate 5 MG No 1{table t} QD amLODIPine Besylate 5 MG Losartan Potassium-H CTZ 100-12.5 MG Losartan Potassium-H CTZ 100-12.5 MG No Losartan Potassium- HCTZ 100-12.5 MG Metoprolol Tartrate 100 MG Metoprolol Tartrate 100 MG No QD Metoprolol Tartrate 100 MG Polyethylen e Glycol Polyethylen e Glycol No Polyethyle ne Glycol Clopidogrel Bisulfate 75 MG Clopidogrel Bisulfate 75 MG No Clopidogre l Bisulfate 75 MG Atorvastati n Calcium 40 MG Atorvastati n Calcium 40 MG No Atorvastat in Calcium 40 MG Potassium Chloride Li ER 20 MEQ Potassium Chloride Li ER 20 MEQ No Potassium Chloride Li ER 20 MEQ Losartan Potassium 50 MG Losartan Potassium 50 MG No Losartan Potassium 50 MG Losartan Potassium 50 MG Losartan Potassium 50 MG No 1{table t} QD Losartan Potassium 50 MG Atorvastati n Calcium 40 MG Atorvastati n Calcium 40 MG No 1{table t} QD Atorvastat in Calcium 40 MG Pantoprazol e Sodium 40 MG Pantoprazol e Sodium 40 MG No 1{table t} QD Pantoprazo le Sodium 40 MG penicillin penicillin No penicillin Euthyrox 88 MCG Euthyrox 88 MCG No Euthyrox 88 MCG Docusate Sodium 100 MG Docusate Sodium 100 MG No 1{capsu le_as_n eeded} BID Docusate Sodium 100 MG EQ Stool Softener 100 MG EQ Stool Softener 100 MG No EQ Stool Softener 100 MG Metoprolol Tartrate 50 MG Metoprolol Tartrate 50 MG No 1{table t_with_ food} QD Metoprolol Tartrate 50 MG MiraLax MiraLax No MiraLax Levothyroxi ne Sodium 88 MCG Levothyroxi ne Sodium 88 MCG No QD Levothyrox ine Sodium 88 MCG penicillin penicillin No penicillin Levothyroxi ne Sodium 88 MCG Levothyroxi ne Sodium 88 MCG No QD Levothyrox ine Sodium 88 MCG Euthyrox 88 MCG Euthyrox 88 MCG No Euthyrox 88 MCG Losartan Potassium 50 MG Losartan Potassium 50 MG No Losartan Potassium 50 MG Sodium Chloride Sodium Chloride No Sodium Chloride amLODIPine Besylate 5 MG amLODIPine Besylate 5 MG No 1{table t} QD amLODIPine Besylate 5 MG Polyethylen e Glycol Polyethylen e Glycol No Polyethyle ne Glycol Levothyroxi ne Sodium 88 MCG Levothyroxi ne Sodium 88 MCG No QD Levothyrox ine Sodium 88 MCG Clopidogrel Bisulfate 75 MG Clopidogrel Bisulfate 75 MG No Clopidogre l Bisulfate 75 MG Potassium Chloride Li ER 20 MEQ Potassium Chloride Li ER 20 MEQ No Potassium Chloride Li ER 20 MEQ EQ Stool Softener 100 MG EQ Stool Softener 100 MG No EQ Stool Softener 100 MG Pantoprazol e Sodium 40 MG Pantoprazol e Sodium 40 MG No 1{table t} QD Pantoprazo le Sodium 40 MG Losartan Potassium-H CTZ 100-12.5 MG Losartan Potassium-H CTZ 100-12.5 MG No Losartan Potassium- HCTZ 100-12.5 MG MiraLax MiraLax No MiraLax Docusate Sodium 100 MG Docusate Sodium 100 MG No 1{capsu le_as_n eeded} BID Docusate Sodium 100 MG Metoprolol Tartrate 50 MG Metoprolol Tartrate 50 MG No Metoprolol Tartrate 50 MG Atorvastati n Calcium 40 MG Atorvastati n Calcium 40 MG No Atorvastat in Calcium 40 MG Aspirin 81 81 MG Aspirin 81 81 MG No 1{table t} QD Aspirin 81 81 MG Potassium Chloride 20 MEQ Potassium Chloride 20 MEQ No 1{packe t_with_ food} QD Potassium Chloride 20 MEQ Metoprolol Tartrate 100 MG Metoprolol Tartrate 100 MG No QD Metoprolol Tartrate 100 MG penicillin penicillin No penicillin Levothyroxi ne Sodium 88 MCG Levothyroxi ne Sodium 88 MCG No QD Levothyrox ine Sodium 88 MCG Euthyrox 88 MCG Euthyrox 88 MCG No Euthyrox 88 MCG Losartan Potassium 50 MG Losartan Potassium 50 MG No Losartan Potassium 50 MG Sodium Chloride Sodium Chloride No Sodium Chloride amLODIPine Besylate 5 MG amLODIPine Besylate 5 MG No 1{table t} QD amLODIPine Besylate 5 MG Polyethylen e Glycol Polyethylen e Glycol No Polyethyle ne Glycol Levothyroxi ne Sodium 88 MCG Levothyroxi ne Sodium 88 MCG No QD Levothyrox ine Sodium 88 MCG Clopidogrel Bisulfate 75 MG Clopidogrel Bisulfate 75 MG No Clopidogre l Bisulfate 75 MG Potassium Chloride Li ER 20 MEQ Potassium Chloride Li ER 20 MEQ No Potassium Chloride Li ER 20 MEQ EQ Stool Softener 100 MG EQ Stool Softener 100 MG No EQ Stool Softener 100 MG Pantoprazol e Sodium 40 MG Pantoprazol e Sodium 40 MG No 1{table t} QD Pantoprazo le Sodium 40 MG Losartan Potassium-H CTZ 100-12.5 MG Losartan Potassium-H CTZ 100-12.5 MG No Losartan Potassium- HCTZ 100-12.5 MG MiraLax MiraLax No MiraLax Docusate Sodium 100 MG Docusate Sodium 100 MG No 1{capsu le_as_n eeded} BID Docusate Sodium 100 MG Metoprolol Tartrate 50 MG Metoprolol Tartrate 50 MG No Metoprolol Tartrate 50 MG Atorvastati n Calcium 40 MG Atorvastati n Calcium 40 MG No Atorvastat in Calcium 40 MG Aspirin 81 81 MG Aspirin 81 81 MG No 1{table t} QD Aspirin 81 81 MG Potassium Chloride 20 MEQ Potassium Chloride 20 MEQ No 1{packe t_with_ food} QD Potassium Chloride 20 MEQ Metoprolol Tartrate 100 MG Metoprolol Tartrate 100 MG No QD Metoprolol Tartrate 100 MG penicillin penicillin No penicillin Levothyroxi ne Sodium 88 MCG Levothyroxi ne Sodium 88 MCG No QD Levothyrox ine Sodium 88 MCG Euthyrox 88 MCG Euthyrox 88 MCG No Euthyrox 88 MCG Losartan Potassium 50 MG Losartan Potassium 50 MG No Losartan Potassium 50 MG Sodium Chloride Sodium Chloride No Sodium Chloride amLODIPine Besylate 5 MG amLODIPine Besylate 5 MG No 1{table t} QD amLODIPine Besylate 5 MG Polyethylen e Glycol Polyethylen e Glycol No Polyethyle ne Glycol Levothyroxi ne Sodium 88 MCG Levothyroxi ne Sodium 88 MCG No QD Levothyrox ine Sodium 88 MCG Clopidogrel Bisulfate 75 MG Clopidogrel Bisulfate 75 MG No Clopidogre l Bisulfate 75 MG Potassium Chloride Li ER 20 MEQ Potassium Chloride Li ER 20 MEQ No Potassium Chloride Li ER 20 MEQ EQ Stool Softener 100 MG EQ Stool Softener 100 MG No EQ Stool Softener 100 MG Pantoprazol e Sodium 40 MG Pantoprazol e Sodium 40 MG No 1{table t} QD Pantoprazo le Sodium 40 MG Losartan Potassium-H CTZ 100-12.5 MG Losartan Potassium-H CTZ 100-12.5 MG No Losartan Potassium- HCTZ 100-12.5 MG MiraLax MiraLax No MiraLax Docusate Sodium 100 MG Docusate Sodium 100 MG No 1{capsu le_as_n eeded} BID Docusate Sodium 100 MG Metoprolol Tartrate 50 MG Metoprolol Tartrate 50 MG No Metoprolol Tartrate 50 MG Atorvastati n Calcium 40 MG Atorvastati n Calcium 40 MG No Atorvastat in Calcium 40 MG Aspirin 81 81 MG Aspirin 81 81 MG No 1{table t} QD Aspirin 81 81 MG Potassium Chloride 20 MEQ Potassium Chloride 20 MEQ No 1{packe t_with_ food} QD Potassium Chloride 20 MEQ Metoprolol Tartrate 100 MG Metoprolol Tartrate 100 MG No QD Metoprolol Tartrate 100 MG Potassium Chloride Li ER 20 MEQ Potassium Chloride Li ER 20 MEQ No Potassium Chloride Li ER 20 MEQ Euthyrox 100 MCG Euthyrox 100 MCG No Euthyrox 100 MCG Aspirin 81 81 MG Aspirin 81 81 MG No 1{table t} QD Aspirin 81 81 MG Losartan Potassium-H CTZ 100-12.5 MG Losartan Potassium-H CTZ 100-12.5 MG No Losartan Potassium- HCTZ 100-12.5 MG Atorvastati n Calcium 40 MG Atorvastati n Calcium 40 MG No 1{table t} QD Atorvastat in Calcium 40 MG Metoprolol Tartrate 50 MG Metoprolol Tartrate 50 MG No 1{table t_with_ food} QD Metoprolol Tartrate 50 MG Docusate Sodium 100 MG Docusate Sodium 100 MG No 1{capsu le_as_n eeded} BID Docusate Sodium 100 MG Polyethylen e Glycol Polyethylen e Glycol No Polyethyle ne Glycol Losartan Potassium 50 MG Losartan Potassium 50 MG No Losartan Potassium 50 MG Clopidogrel Bisulfate 75 MG Clopidogrel Bisulfate 75 MG No Clopidogre l Bisulfate 75 MG MiraLax MiraLax No MiraLax Sodium Chloride Sodium Chloride No Sodium Chloride EQ Stool Softener 100 MG EQ Stool Softener 100 MG No EQ Stool Softener 100 MG Potassium Chloride 20 MEQ Potassium Chloride 20 MEQ No 1{packe t_with_ food} QD Potassium Chloride 20 MEQ amLODIPine Besylate 5 MG amLODIPine Besylate 5 MG No 1{table t} QD amLODIPine Besylate 5 MG Metoprolol Tartrate 50 MG Metoprolol Tartrate 50 MG No Metoprolol Tartrate 50 MG Levothyroxi ne Sodium 100 MCG Levothyroxi ne Sodium 100 MCG No QD Levothyrox ine Sodium 100 MCG Losartan Potassium 50 MG Losartan Potassium 50 MG No 1{table t} QD Losartan Potassium 50 MG Pantoprazol e Sodium 40 MG Pantoprazol e Sodium 40 MG No 1{table t} QD Pantoprazo le Sodium 40 MG Atorvastati n Calcium 40 MG Atorvastati n Calcium 40 MG No Atorvastat in Calcium 40 MG Potassium Chloride Li ER 20 MEQ Potassium Chloride Li ER 20 MEQ No Potassium Chloride Li ER 20 MEQ Euthyrox 100 MCG Euthyrox 100 MCG No Euthyrox 100 MCG Aspirin 81 81 MG Aspirin 81 81 MG No 1{table t} QD Aspirin 81 81 MG Losartan Potassium-H CTZ 100-12.5 MG Losartan Potassium-H CTZ 100-12.5 MG No Losartan Potassium- HCTZ 100-12.5 MG Atorvastati n Calcium 40 MG Atorvastati n Calcium 40 MG No 1{table t} QD Atorvastat in Calcium 40 MG Metoprolol Tartrate 50 MG Metoprolol Tartrate 50 MG No 1{table t_with_ food} QD Metoprolol Tartrate 50 MG Docusate Sodium 100 MG Docusate Sodium 100 MG No 1{capsu le_as_n eeded} BID Docusate Sodium 100 MG Polyethylen e Glycol Polyethylen e Glycol No Polyethyle ne Glycol Losartan Potassium 50 MG Losartan Potassium 50 MG No Losartan Potassium 50 MG Clopidogrel Bisulfate 75 MG Clopidogrel Bisulfate 75 MG No Clopidogre l Bisulfate 75 MG MiraLax MiraLax No MiraLax Sodium Chloride Sodium Chloride No Sodium Chloride EQ Stool Softener 100 MG EQ Stool Softener 100 MG No EQ Stool Softener 100 MG Potassium Chloride 20 MEQ Potassium Chloride 20 MEQ No 1{packe t_with_ food} QD Potassium Chloride 20 MEQ amLODIPine Besylate 5 MG amLODIPine Besylate 5 MG No 1{table t} QD amLODIPine Besylate 5 MG Metoprolol Tartrate 50 MG Metoprolol Tartrate 50 MG No Metoprolol Tartrate 50 MG Levothyroxi ne Sodium 100 MCG Levothyroxi ne Sodium 100 MCG No QD Levothyrox ine Sodium 100 MCG Losartan Potassium 50 MG Losartan Potassium 50 MG No 1{table t} QD Losartan Potassium 50 MG Pantoprazol e Sodium 40 MG Pantoprazol e Sodium 40 MG No 1{table t} QD Pantoprazo le Sodium 40 MG Atorvastati n Calcium 40 MG Atorvastati n Calcium 40 MG No Atorvastat in Calcium 40 MG Aspirin 81 81 MG Aspirin 81 81 MG No 1{table t} QD Aspirin 81 81 MG Clopidogrel Bisulfate 75 MG Clopidogrel Bisulfate 75 MG No Clopidogre l Bisulfate 75 MG Levothyroxi ne Sodium 100 MCG Levothyroxi ne Sodium 100 MCG No QD Levothyrox ine Sodium 100 MCG Sodium Chloride Sodium Chloride No Sodium Chloride Docusate Sodium 100 MG Docusate Sodium 100 MG No 1{capsu le_as_n eeded} BID Docusate Sodium 100 MG Metoprolol Tartrate 50 MG Metoprolol Tartrate 50 MG No 1{table t_with_ food} QD Metoprolol Tartrate 50 MG EQ Stool Softener 100 MG EQ Stool Softener 100 MG No EQ Stool Softener 100 MG Atorvastati n Calcium 40 MG Atorvastati n Calcium 40 MG No Atorvastat in Calcium 40 MG Losartan Potassium 50 MG Losartan Potassium 50 MG No Losartan Potassium 50 MG Metoprolol Tartrate 50 MG Metoprolol Tartrate 50 MG No Metoprolol Tartrate 50 MG MiraLax MiraLax No MiraLax Pantoprazol e Sodium 40 MG Pantoprazol e Sodium 40 MG No 1{table t} QD Pantoprazo le Sodium 40 MG Potassium Chloride Li ER 20 MEQ Potassium Chloride Li ER 20 MEQ No Potassium Chloride Li ER 20 MEQ Losartan Potassium-H CTZ 100-12.5 MG Losartan Potassium-H CTZ 100-12.5 MG No Losartan Potassium- HCTZ 100-12.5 MG Potassium Chloride 20 MEQ Potassium Chloride 20 MEQ No 1{packe t_with_ food} QD Potassium Chloride 20 MEQ Polyethylen e Glycol Polyethylen e Glycol No Polyethyle ne Glycol amLODIPine Besylate 5 MG amLODIPine Besylate 5 MG No 1{table t} QD amLODIPine Besylate 5 MG Euthyrox 100 MCG Euthyrox 100 MCG No Euthyrox 100 MCG Levothyroxi ne Sodium 100 MCG Levothyroxi ne Sodium 100 MCG No QD Levothyrox ine Sodium 100 MCG Pantoprazol e Sodium 40 MG Pantoprazol e Sodium 40 MG No 1{table t} QD Pantoprazo le Sodium 40 MG Losartan Potassium 50 MG Losartan Potassium 50 MG No Losartan Potassium 50 MG Clopidogrel Bisulfate 75 MG Clopidogrel Bisulfate 75 MG No 1{table t} QD Clopidogre l Bisulfate 75 MG Atorvastati n Calcium 40 MG Atorvastati n Calcium 40 MG No Atorvastat in Calcium 40 MG Metoprolol Tartrate 50 MG Metoprolol Tartrate 50 MG No Metoprolol Tartrate 50 MG Sodium Chloride Sodium Chloride No Sodium Chloride amLODIPine Besylate 5 MG amLODIPine Besylate 5 MG No 1{table t} QD amLODIPine Besylate 5 MG Polyethylen e Glycol Polyethylen e Glycol No Polyethyle ne Glycol Docusate Sodium 100 MG Docusate Sodium 100 MG No 1{capsu le_as_n eeded} BID Docusate Sodium 100 MG Losartan Potassium 25 MG Losartan Potassium 25 MG No 1{table t} QD Losartan Potassium 25 MG Klor-Con M20 20 MEQ Klor-Con M20 20 MEQ No Klor-Con M20 20 MEQ Aspirin 81 81 MG Aspirin 81 81 MG No 1{table t} QD Aspirin 81 81 MG Levothyroxi ne Sodium 100 MCG Levothyroxi ne Sodium 100 MCG No Levothyrox ine Sodium 100 MCG MiraLax MiraLax No MiraLax Aspirin 81 81 MG Aspirin 81 81 MG No 1{table t} QD Aspirin 81 81 MG Atorvastati n Calcium 40 MG Atorvastati n Calcium 40 MG No 1{table t} QD Atorvastat in Calcium 40 MG Docusate Sodium 100 MG Docusate Sodium 100 MG No 1{capsu le_as_n eeded} BID Docusate Sodium 100 MG Metoprolol Tartrate 50 MG Metoprolol Tartrate 50 MG No 1{table t_with_ food} QD Metoprolol Tartrate 50 MG Sodium Chloride Sodium Chloride No Sodium Chloride Losartan Potassium 25 MG Losartan Potassium 25 MG No 1{table t} QD Losartan Potassium 25 MG Polyethylen e Glycol Polyethylen e Glycol No Polyethyle ne Glycol Atorvastati n Calcium 40 MG Atorvastati n Calcium 40 MG No Atorvastat in Calcium 40 MG Clopidogrel Bisulfate 75 MG Clopidogrel Bisulfate 75 MG No 1{table t} QD Clopidogre l Bisulfate 75 MG MiraLax MiraLax No MiraLax Potassium Chloride 20 MEQ Potassium Chloride 20 MEQ No 1{packe t_with_ food} QD Potassium Chloride 20 MEQ amLODIPine Besylate 5 MG amLODIPine Besylate 5 MG No 1{table t} QD amLODIPine Besylate 5 MG methylPREDN ISolone 4 MG methylPREDN ISolone 4 MG No methylPRED NISolone 4 MG Levothyroxi ne Sodium 100 MCG Levothyroxi ne Sodium 100 MCG No QD Levothyrox ine Sodium 100 MCG Metoprolol Tartrate 50 MG Metoprolol Tartrate 50 MG No Metoprolol Tartrate 50 MG Pantoprazol e Sodium 40 MG Pantoprazol e Sodium 40 MG No 1{table t} QD Pantoprazo le Sodium 40 MG Immunizations Ordered Immunization Name Filled Immunization Name Date Status Comments Source Fluzone Fluzone 2021-03-27 10:30:00 Completed [facility] Fluzone Fluzone 2021-03-27 10:30:00 Completed [facility] Fluzone Fluzone 2021-03-27 10:30:00 Completed [facility] Fluzone Fluzone 2021-03-27 10:30:00 Completed [facility] Fluzone Fluzone 2021-03-27 10:30:00 Completed [facility] Fluzone Fluzone 2021-03-27 10:30:00 Completed [facility] Fluzone Fluzone 2021-03-27 10:30:00 Completed [facility] Fluzone Fluzone 2021-03-27 10:30:00 Completed [facility] Fluzone Fluzone 2021-03-27 10:30:00 Completed [facility] Fluzone Fluzone 2021-03-27 10:30:00 Completed [facility] Pneumovax (PPSV23) Pneumovax (PPSV23) 2021-03-27 10:29:00 Completed [facility] Pneumovax (PPSV23) Pneumovax (PPSV23) 2021-03-27 10:29:00 Completed [facility] Pneumovax (PPSV23) Pneumovax (PPSV23) 2021-03-27 10:29:00 Completed [facility] Pneumovax (PPSV23) Pneumovax (PPSV23) 2021-03-27 10:29:00 Completed [facility] Pneumovax (PPSV23) Pneumovax (PPSV23) 2021-03-27 10:29:00 Completed [facility] Pneumovax (PPSV23) Pneumovax (PPSV23) 2021-03-27 10:29:00 Completed [facility] Pneumovax (PPSV23) Pneumovax (PPSV23) 2021-03-27 10:29:00 Completed [facility] Pneumovax (PPSV23) Pneumovax (PPSV23) 2021-03-27 10:29:00 Completed [facility] Pneumovax (PPSV23) Pneumovax (PPSV23) 2021-03-27 10:29:00 Completed [facility] Pneumovax (PPSV23) Pneumovax (PPSV23) 2021-03-27 10:29:00 Completed [facility] FluAD FluAD 2019-11-27 08:58:00 Completed [facility] FluAD FluAD 2019-11-27 08:58:00 Completed [facility] FluAD FluAD 2019-11-27 08:58:00 Completed [facility] FluAD FluAD 2019-11-27 08:58:00 Completed [facility] FluAD FluAD 2019-11-27 08:58:00 Completed [facility] FluAD FluAD 2019-11-27 08:58:00 Completed [facility] FluAD FluAD 2019-11-27 08:58:00 Completed [facility] FluAD FluAD 2019-11-27 08:58:00 Completed [facility] FluAD FluAD 2019-11-27 08:58:00 Completed [facility] FluAD FluAD 2019-11-27 08:58:00 Completed [facility] FluAD FluAD 2019-11-27 08:58:00 Completed [facility] FluAD FluAD 2019-11-27 08:58:00 Completed [facility] FluAD FluAD 2019-11-27 08:58:00 Completed [facility] FluAD FluAD Unknown Completed [facility] Fluzone Fluzone Unknown Completed [facility] Pneumovax (PPSV23) Pneumovax (PPSV23) Unknown Completed [facility] COVID-19 Vaccine (Nato) COVID-19 Vaccine (Nato) Unknown Completed [facility] FluAD FluAD Unknown Completed [facility] Fluzone Fluzone Unknown Completed [facility] Pneumovax (PPSV23) Pneumovax (PPSV23) Unknown Completed [facility] Influenza Influenza Unknown Completed [facility] COVID-19 Vaccine (Nato) COVID-19 Vaccine (Nato) Unknown Completed [facility] FluAD FluAD Unknown Completed [facility] Fluzone Fluzone Unknown Completed [facility] Pneumovax (PPSV23) Pneumovax (PPSV23) Unknown Completed [facility] Influenza Influenza Unknown Completed [facility] COVID-19 Vaccine (Nato) COVID-19 Vaccine (Nato) Unknown Completed [facility] FluAD FluAD Unknown Completed [facility] Fluzone Fluzone Unknown Completed [facility] Pneumovax (PPSV23) Pneumovax (PPSV23) Unknown Completed [facility] Influenza Influenza Unknown Completed [facility] COVID-19 Vaccine (Nato) COVID-19 Vaccine (Nato) Unknown Completed [facility] FluAD FluAD Unknown Completed [facility] Fluzone Fluzone Unknown Completed [facility] Pneumovax (PPSV23) Pneumovax (PPSV23) Unknown Completed [facility] Influenza Influenza Unknown Completed [facility] COVID-19 Vaccine (Nato) COVID-19 Vaccine (Nato) Unknown Completed [facility] FluAD FluAD Unknown Completed [facility] Fluzone Fluzone Unknown Completed [facility] Pneumovax (PPSV23) Pneumovax (PPSV23) Unknown Completed [facility] Influenza Influenza Unknown Completed [facility] COVID-19 Vaccine (Nato) COVID-19 Vaccine (Nato) Unknown Completed [facility] FluAD FluAD Unknown Completed [facility] Fluzone Fluzone Unknown Completed [facility] Pneumovax (PPSV23) Pneumovax (PPSV23) Unknown Completed [facility] Influenza Influenza Unknown Completed [facility] COVID-19 Vaccine (Nato) COVID-19 Vaccine (Nato) Unknown Completed [facility] FluAD FluAD Unknown Completed [facility] Fluzone Fluzone Unknown Completed [facility] Pneumovax (PPSV23) Pneumovax (PPSV23) Unknown Completed [facility] Influenza Influenza Unknown Completed [facility] Vital Signs Vital Name Observation Time Observation Value Comments S ource height 2023-02-19 10:00:00 60 [in_i] Commo n [facility] weight 2023-02-19 10:00:00 117.4 [lb_av] Co mmon [facility] temperature 2023-02-19 10:00:00 98.0 [degF] Com mon [facility] bmi 2023-02-19 10:00:00 22.93 kg/m2 Comm on [facility] oximetry 2023-02-19 10:00:00 98 % Commo n [facility] respiratory rate 2023-02-19 10:00:00 16 /min [facility] blood pressure systolic 2023-02-19 10:00:00 124 mm[Hg] [facility] blood pressure diastolic 2023-02-19 10:00:00 62 mm[Hg] [facility] height 2022-09-18 10:10:00 60 [in_i] Commo n [facility] weight 2022-09-18 10:10:00 112 [lb_av] Comm on [facility] temperature 2022-09-18 10:10:00 97.6 [degF] Com mon [facility] bmi 2022-09-18 10:10:00 21.87 kg/m2 Comm on [facility] oximetry 2022-09-18 10:10:00 99 % Commo n [facility] respiratory rate 2022-09-18 10:10:00 16 /min [facility] blood pressure systolic 2022-09-18 10:10:00 110 mm[Hg] [facility] blood pressure diastolic 2022-09-18 10:10:00 77 mm[Hg] [facility] height 2022-09-18 10:10:00 60 [in_i] Commo n [facility] weight 2022-09-18 10:10:00 112 [lb_av] Comm on [facility] temperature 2022-09-18 10:10:00 97.6 [degF] Com mon [facility] bmi 2022-09-18 10:10:00 21.87 kg/m2 Comm on [facility] oximetry 2022-09-18 10:10:00 99 % Commo n [facility] respiratory rate 2022-09-18 10:10:00 16 /min [facility] blood pressure systolic 2022-09-18 10:10:00 110 mm[Hg] [facility] blood pressure diastolic 2022-09-18 10:10:00 77 mm[Hg] [facility] height 2022-06-25 10:30:00 60 [in_i] Commo n [facility] weight 2022-06-25 10:30:00 115 [lb_av] Comm on [facility] temperature 2022-06-25 10:30:00 96.4 [degF] Com mon [facility] bmi 2022-06-25 10:30:00 22.46 kg/m2 Comm on [facility] oximetry 2022-06-25 10:30:00 95 % Commo n [facility] respiratory rate 2022-06-25 10:30:00 17 /min [facility] blood pressure systolic 2022-06-25 10:30:00 126 mm[Hg] [facility] blood pressure diastolic 2022-06-25 10:30:00 65 mm[Hg] [facility] height 2021-12-26 10:10:00 60 [in_i] Commo n [facility] weight 2021-12-26 10:10:00 119 [lb_av] Comm on [facility] temperature 2021-12-26 10:10:00 97.5 [degF] Com [facility] bmi 2021-12-26 10:10:00 23.24 kg/m2 Comm on [facility] oximetry 2021-12-26 10:10:00 90 % Commo n [facility] respiratory rate 2021-12-26 10:10:00 16 /min [facility] blood pressure systolic 2021-12-26 10:10:00 111 mm[Hg] [facility] blood pressure diastolic 2021-12-26 10:10:00 71 mm[Hg] [facility] height 2021-09-19 14:30:00 61 [in_i] Commo n [facility] weight 2021-09-19 14:30:00 125.6 [lb_av] Co [facility] temperature 2021-09-19 14:30:00 97.3 [degF] Com [facility] bmi 2021-09-19 14:30:00 23.73 kg/m2 Comm on [facility] oximetry 2021-09-19 14:30:00 96 % Commo n [facility] respiratory rate 2021-09-19 14:30:00 17 /min [facility] blood pressure systolic 2021-09-19 14:30:00 117 mm[Hg] [facility] blood pressure diastolic 2021-09-19 14:30:00 81 mm[Hg] [facility] height 2021-09-19 14:30:00 61 [in_i] Commo n [facility] weight 2021-09-19 14:30:00 125.6 [lb_av] [facility] temperature 2021-09-19 14:30:00 97.3 [degF] Com mon [facility] bmi 2021-09-19 14:30:00 23.73 kg/m2 Comm on [facility] oximetry 2021-09-19 14:30:00 96 % Commo n [facility] respiratory rate 2021-09-19 14:30:00 17 /min [facility] blood pressure systolic 2021-09-19 14:30:00 117 mm[Hg] [facility] blood pressure diastolic 2021-09-19 14:30:00 81 mm[Hg] [facility] height 2021-06-26 09:50:00 61 [in_i] Commo n [facility] weight 2021-06-26 09:50:00 134.9 [lb_av] [facility] temperature 2021-06-26 09:50:00 97.0 [degF] Com mon [facility] bmi 2021-06-26 09:50:00 25.49 kg/m2 Comm on [facility] oximetry 2021-06-26 09:50:00 93 % Commo n [facility] respiratory rate 2021-06-26 09:50:00 17 /min [facility] blood pressure systolic 2021-06-26 09:50:00 132 mm[Hg] [facility] blood pressure diastolic 2021-06-26 09:50:00 65 mm[Hg] [facility] [facility] 2021-03-27 10:00:00 61 [in_i] [facility] weight 2021-03-27 10:00:00 136.3 [lb_av] Co [facility] temperature 2021-03-27 10:00:00 97.3 [degF] Com mon [facility] bmi 2021-03-27 10:00:00 25.75 kg/m2 [facility] oximetry 2021-03-27 10:00:00 93 % [facility] respiratory rate 2021-03-27 10:00:00 17 /min [facility] blood pressure systolic 2021-03-27 10:00:00 114 mm[Hg] [facility] blood pressure diastolic 2021-03-27 10:00:00 78 mm[Hg] [facility] Procedures Procedure Date / Time Performed Performing Clinicia n Source [id number] 2019-05-05 00:00:00 [facility] [id number] 2019-05-05 00:00:00 [facility] Encounters Start Date/Time End Date/Time Encounter Type Admission Type Attending Clinicians Care Facility Care Department Encounter ID Source 2023-02-19 10:08:00 Outpatient Alaniz, Jeremi STLC STLC [id number] [facility] 2021-09-13 10:23:02 Outpatient Alaniz, Jeremi [facility] ST[facility] [id number] [facility] 2021-05-10 14:23:26 Outpatient Alaniz Jeremi STLC STLC [id number] [facility] 2021-05-10 14:18:25 Outpatient Alaniz, Jeremi STLC STLC [id number] [facility] 2021-05-10 12:07:25 Outpatient AlanizMary Bethh STLMLC STLMLC [id number] [facility] 2021-05-10 11:22:27 Outpatient AlanizMary Bethh STLMLC STLMLC [id number] [facility] 2021-05-10 11:15:02 Outpatient STLMLC STLMLC [id number] [facility] 2019-05-05 10:30:00 Inpatient Rohith Khan [facility] [id number] [facility] 2023-03-19 00:00:00 2023-03-19 00:00:00 (TEL) STLMLC STLMLC [id number] [facility] 2023-02-19 00:00:00 2023-02-19 00:00:00 OFFICE VISIT ESTAB PT LEVEL 4 STLMLC STLMLC [id number] [facility] 2023-02-15 00:00:00 2023-02-15 00:00:00 (TEL) STLMLC STLMLC [id number] [facility] 2023-02-06 00:00:00 2023-02-06 00:00:00 (TEL) STLMLC STLMLC [id number] [facility] 2023-02-06 00:00:00 2023-02-06 00:00:00 (TEL) STLMLC STLMLC [id number] [facility] 2022-09-18 00:00:00 2022-09-18 00:00:00 OFFICE VISIT ESTAB PT LEVEL 4 STLMLC STLMLC [id number] [facility] 2022-09-18 00:00:00 2022-09-18 00:00:00 SUB ANNUAL [facility]LL[facility] VISIT STLMLC STLMLC [id number] [facility] 2022-06-25 00:00:00 2022-06-25 00:00:00 OFFICE VISIT ESTAB PT LEVEL 4 STLMLC STLMLC [id number] [facility] 2022-03-14 00:00:00 2022-03-14 00:00:00 (TEL) STLMLC STLMLC [id number] [facility] 2022-01-22 00:00:00 2022-01-22 00:00:00 (TEL) STLMLC STLMLC [id number] [facility] 2021-12-26 00:00:00 2021-12-26 00:00:00 OFFICE VISIT ESTAB PT LEVEL 4 STLMLC STLMLC [id number] [facility] 2021-09-19 00:00:00 2021-09-19 00:00:00 OFFICE VISIT ESTAB PT LEVEL 4 STLMLC STLMLC [id number] [facility] 2021-09-19 00:00:00 2021-09-19 00:00:00 SUB ANNUAL [facility] WELLNESS VISIT STLMLC STLMLC [id number] [facility] 2021-09-19 00:00:00 2021-09-19 00:00:00 (TEL) STLMLC STLMLC [id number] [facility] 2021-08-29 00:00:00 2021-08-29 00:00:00 (TEL) STLMLC STLMLC [id number] [facility] 2021-06-26 00:00:00 2021-06-26 00:00:00 OFFICE VISIT ESTAB PT LEVEL 4 STLMLC STLMLC [id number] [facility] 2021-03-27 00:00:00 2021-03-27 00:00:00 OFFICE VISIT ESTAB PT LEVEL 4 STLMLC STLMLC [id number] [facility] 2021-03-13 00:00:00 2021-03-13 00:00:00 (TEL) STLMLC STLMLC [id number] [facility] 2021-03-06 00:00:00 2021-03-06 00:00:00 (TEL) STLMLC STLMLC [id number] [facility] 2021-02-10 00:00:00 2021-02-10 00:00:00 (TEL) STLMLC STLMLC [id number] [facility] 2020-12-23 00:00:00 2020-12-23 00:00:00 Outpatient STLMLC STLMLC [id number] [facility] 2020-11-24 00:00:00 2020-11-24 00:00:00 Outpatient STLMLC STLMLC [id number] [facility] 2020-09-29 00:00:00 2020-09-29 00:00:00 Outpatient STLMLC STLMLC [id number] [facility] 2020-09-27 00:00:00 2020-09-27 00:00:00 Outpatient STLMLC STLMLC [id number] [facility] 2020-09-26 00:00:00 2020-09-26 00:00:00 Outpatient STLMLC STLMLC [id number] [facility] 2020-09-26 00:00:00 2020-09-26 00:00:00 Outpatient STLMLC STLMLC [id number] [facility] 2020-09-19 00:00:00 2020-09-19 00:00:00 Outpatient STLMLC STLMLC [id number] [facility] 2020-07-02 11:05:00 2020-07-02 11:05:00 Outpatient [facility] [id number] General acute hospital 2020-06-11 11:30:00 2020-06-11 11:30:00 Outpatient [facility] [id number] General acute hospital 2020-04-05 00:00:00 2020-04-05 00:00:00 Outpatient STLMLC STLMLC [id number] [facility] 2020-03-08 00:00:00 2020-03-08 00:00:00 Outpatient STLMLC STLMLC [id number] [facility] 2020-03-08 00:00:00 2020-03-08 00:00:00 Outpatient STLMLC STLMLC [id number] [facility] 2019-12-03 09:15:00 2019-12-03 09:15:00 [facility] [id number] [facility] 2019-11-19 15:09:00 2019-11-19 15:09:00 [place] [facility] [place] [id number] [facility] 2019-09-03 11:00:00 2019-09-03 11:00:00 [facility] [place] [facility] [id number] [facility] 2019-09-03 10:45:00 2019-09-03 10:45:00 [facility] [id number] [facility] 2019-07-23 09:24:00 2019-07-23 09:24:00 [facility] [place] [id number] [facility] 2019-07-11 13:05:00 2019-07-11 13:05:00 [facility] [id number] [facility] 2019-06-30 14:15:00 2019-06-30 14:15:00 Outpatient [facility] [id number] [facility] Results Test Description Test Time Test Comments Results Result Co mments Source TSH REFLEX TO FREE [id number] 00:00:00* Test Item Value Reference Range Interpretation Comme nts TSH REFLEX TO FREE T4 (test code = 75731-8) 2.580 UIU/ML See_Comment [Automated [employer] ge] The system which generated this result transmitted reference range: 0.400-4.100 UIU/ML. The reference range was not used to interpret this result as normal/abnormal. VITAMIN D, 25 [id number] 00:00:00* Test Item Value Reference Range Interpretation Comme nts VITAMIN D, 25 OH (test code = 1989-3) 50 NG/ML SEE BELOW NG/ML LIPID PANEL WITH REFLEX DIRECT [id number] 00:00:00* Test Item Value Reference Range Interpretation Comme nts CALC LDL CHOL (test code = 23391-1) 59 MG/DL See_Comment [Automated messa ge] The system which generated this result transmitted reference range: <100 MG/DL. The reference range was not used to interpret this result as normal/abnormal. CHOLESTEROL (test code = 2093-3) 145 MG/DL See_Comment [Automated messa ge] The system which generated this result transmitted reference range: <200 MG/DL. The reference range was not used to interpret this result as normal/abnormal. HDL CHOLESTEROL (test code = 2085-9) 68 MG/DL See_Comment [Automated messa ge] The system which generated this result transmitted reference range: >39 MG/DL. The reference range was not used to interpret this result as normal/abnormal. RISK RATIO LDL/HDL (test code = 31986-6) 0.87 RATIO See_Comment [Automated message] The system which generated this result transmitted reference range: <3.22 RATIO. The reference range was not used to interpret this result as normal/abnormal. TRIGLYCERIDES (test code = 2571-8) 92 MG/DL See_Comment [Automated messa ge] The system which generated this result transmitted reference range: <150 MG/DL. The reference range was not used to interpret this result as normal/abnormal. PATHOLOGIST SMEAR [id number] 00:00:00* Test Item Value Reference Range Interpretation Comme nts BASOPHILS (test code = 52523-6) 0.0 % DIAGNOSIS: (test code = 67763-9) (NOTE) COMMENTS (test code = 43669-1) (NOTE) EOSINOPHILS (test code = 73520-8) 3.3 % HEMATOCRIT (test code = 14585-2) 42.7 % See_Comment [Automated messa ge] The system which generated this result transmitted reference range: 34.0-45.0 %. The reference range was not used to interpret this result as normal/abnormal. HEMOGLOBIN (test code = 718-7) 14.1 G/DL See_Comment [Automated messa ge] The system which generated this result transmitted reference range: 11.5-15.5 G/DL. The reference range was not used to interpret this result as normal/abnormal. LYMPHOCYTES (test code = 23998-9) 20.8 % MCH (test code = 90856-6) 33.9 PG See_Comment H [Automated messa ge] The system which generated this result transmitted reference range: 25.0-33.0 PG. The reference range was not used to interpret this result as normal/abnormal. MCHC (test code = 19885-1) 33.0 G/DL See_Comment [Automated messa ge] The system which generated this result transmitted reference range: 31.0-36.0 G/DL. The reference range was not used to interpret this result as normal/abnormal. MCV (test code = 21007-7) 102.6 fL See_Comment H [Automated messa ge] The system which generated this result transmitted reference range: 80.0-99.0 fL. The reference range was not used to interpret this result as normal/abnormal. MICROSCOPIC DESCRIPTION: (test code = 07036-0) (NOTE) MONOCYTES (test code = 28958-1) 13.3 % NEUTROPHILS (test code = 52313-1) 62.6 % NUCLEATED RBCS (test code = 50122-8) 0.8 /100 WBC'S See_Comment H [Automated messa ge] The system which generated this result transmitted reference range: 0.0 /100 WBC'S. The reference range was not used to interpret this result as normal/abnormal. PATHOLOGIST: (test code = 16500-3) (NOTE) PLATELET COUNT (test code = 78700-4) 316 K/UL See_Comment [Automated messa ge] The system which generated this result transmitted reference range: 130-400 K/UL. The reference range was not used to interpret this result as normal/abnormal. RBC (test code = 80001-0) 4.16 M/UL See_Comment [Automated messa ge] The system which generated this result transmitted reference range: 3.80-5.40 M/UL. The reference range was not used to interpret this result as normal/abnormal. RDW (test code = 49889-3) 12.8 % See_Comment [Automated messa ge] The system which generated this result transmitted reference range: 11.5-15.0 %. The reference range was not used to interpret this result as normal/abnormal. WBC (test code = 83920-3) 4.3 K/UL See_Comment [Automated messa ge] The system which generated this result transmitted reference range: 3.5-11.0 K/UL. The reference range was not used to interpret this result as normal/abnormal. COMPREHENSIVE METABOLIC [id number] 00:00:00* Test Item Value Reference Range Interpretation Comme nts ALBUMIN (test code = 1751-7) 4.2 G/DL See_Comment [Automated messa ge] The system which generated this result transmitted reference range: 3.5-5.2 G/DL. The reference range was not used to interpret this result as normal/abnormal. ALKALINE PHOSPHATASE (test code = 6768-6) 84 U/L See_Comment [Automated message] The system which generated this result transmitted reference range: 40-142 U/L. The reference range was not used to interpret this result as normal/abnormal. BILIRUBIN, TOTAL (test code = 1975-2) 0.3 MG/DL See_Comment [Automated message] The system which generated this result transmitted reference range: <=1.2 MG/DL. The reference range was not used to interpret this result as normal/abnormal. BUN (test code = 3094-0) 20 MG/DL See_Comment [Automated messa ge] The system which generated this result transmitted reference range: 8-23 MG/DL. The reference range was not used to interpret this result as normal/abnormal. CALCIUM (test code = 43140-9) 10.0 MG/DL See_Comment [Automated messa ge] The system which generated this result transmitted reference range: 8.5-10.5 MG/DL. The reference range was not used to interpret this result as normal/abnormal. CALC A/G RATIO (test code = 1759-0) 1.2 RATIO See_Comment [Automated messa ge] The system which generated this result transmitted reference range: 1.0-2.6 RATIO. The reference range was not used to interpret this result as normal/abnormal. CALC BUN/CREAT (test code = 3097-3) 21 RATIO See_Comment [Automated messa ge] The system which generated this result transmitted reference range: 6-28 RATIO. The reference range was not used to interpret this result as normal/abnormal. CALC GLOBULIN (test code = 27870-9) 3.6 G/DL See_Comment [Automated messa ge] The system which generated this result transmitted reference range: 1.9-3.7 G/DL. The reference range was not used to interpret this result as normal/abnormal. CARBON DIOXIDE (test code = 1962-8) 28 MEQ/L See_Comment [Automated messa ge] The system which generated this result transmitted reference range: 19-31 MEQ/L. The reference range was not used to interpret this result as normal/abnormal. CHLORIDE (test code = 5-0) 98 MEQ/L See_Comment [Automated messa ge] The system which generated this result transmitted reference range: 95-107 MEQ/L. The reference range was not used to interpret this result as normal/abnormal. CREATININE (test code = 2160-0) 0.96 MG/DL See_Comment [Automated messa ge] The system which generated this result transmitted reference range: 0.60-1.30 MG/DL. The reference range was not used to interpret this result as normal/abnormal. eGFR (2020 CKD-EPI) (test code = 83898-1) 61 ML/MIN/1.73 See_Comment [Automated messa ge] The system which generated this result transmitted reference range: >60 ML/MIN/1.73. The reference range was not used to interpret this result as normal/abnormal. GLUCOSE (test code = 1558-6) 86 MG/DL See_Comment [Automated messa ge] The system which generated this result transmitted reference range: 70-99 MG/DL. The reference range was not used to interpret this result as normal/abnormal. POTASSIUM (test code = 2823-3) 4.1 MEQ/L See_Comment [Automated messa ge] The system which generated this result transmitted reference range: 3.5-5.4 MEQ/L. The reference range was not used to interpret this result as normal/abnormal. PROTEIN, TOTAL (test code = 2885-2) 7.8 G/DL See_Comment [Automated messa ge] The system which generated this result transmitted reference range: 6.1-8.3 G/DL. The reference range was not used to interpret this result as normal/abnormal. AST (test code = 1920-8) 25 U/L See_Comment [Automated messa ge] The system which generated this result transmitted reference range: 9-40 U/L. The reference range was not used to interpret this result as normal/abnormal. ALT (test code = 1742-6) 18 U/L See_Comment [Automated messa ge] The system which generated this result transmitted reference range: 5-40 U/L. The reference range was not used to interpret this result as normal/abnormal. SODIUM (test code = 2951-2) 139 MEQ/L See_Comment [Automated messa ge] The system which generated this result transmitted reference range: 133-146 MEQ/L. The reference range was not used to interpret this result as normal/abnormal. [id number] 00:00:00* Test Item Value Reference Range Interpretation [facility] FERR[facility] (test code = 74749-2) 53 NG/ML See_Comment [Automated messa ge] The system which generated this result transmitted reference range: 13-200 NG/ML. The reference range was not used to interpret this result as normal/abnormal. HEMOGLOBIN [id number] 00:00:00* Test Item Value Reference Range Interpretation [facility] HEMOGLOBIN A1c (test code = 4548-4) 5.8 % See_Comment H [Automated messa ge] The system which generated this result transmitted reference range: 4.2-5.6 %. The reference range was not used to interpret this result as normal/abnormal. TSH REFLEX TO FREE [id number] 00:00:00* Test Item Value Reference Range Interpretation [facility] TSH REFLEX TO FREE T4 (test code = 57046-1) 1.810 UIU/ML See_Comment [Automated messa ge] The system which generated this result transmitted reference range: 0.400-4.100 UIU/ML. The reference range was not used to interpret this result as normal/abnormal. LIPID PANEL WITH REFLEX DIRECT [id number] 00:00:00* Test Item Value Reference Range Interpretation [facility] CALC LDL CHOL (test code = 61411-0) 66 MG/DL See_Comment [Automated messa ge] The system which generated this result transmitted reference range: <100 MG/DL. The reference range was not used to interpret this result as normal/abnormal. CHOLESTEROL (test code = 2093-3) 157 MG/DL See_Comment [Automated messa ge] The system which generated this result transmitted reference range: <200 MG/DL. The reference range was not used to interpret this result as normal/abnormal. HDL CHOLESTEROL (test code = 2085-9) 75 MG/DL See_Comment [Automated [employer] ge] The system which generated this result transmitted reference range: >39 MG/DL. The reference range was not used to interpret this result as normal/abnormal. RISK RATIO LDL/HDL (test code = 02745-1) 0.88 RATIO See_Comment [Automated message] The system which generated this result transmitted reference range: <3.22 RATIO. The reference range was not used to interpret this result as normal/abnormal. TRIGLYCERIDES (test code = 2571-8) 80 MG/DL See_Comment [Automated [employer]] The system which generated this result transmitted reference range: <150 MG/DL. The reference range was not used to interpret this result as normal/abnormal. PATHOLOGIST SMEAR [id number] 00:00:00* Test Item Value Reference Range Interpretation Comme nts BASOPHILS (test code = 46611-5) 0.8 % DIAGNOSIS: (test code = 94300-2) (NOTE) COMMENTS (test code = 11547-8) (NOTE) EOSINOPHILS (test code = 76600-6) 1.9 % HEMATOCRIT (test code = 51321-6) 38.2 % See_Comment [Automated [employer]] The system which generated this result transmitted reference range: 34.0-45.0 %. The reference range was not used to interpret this result as normal/abnormal. HEMOGLOBIN (test code = 718-7) 12.4 G/DL See_Comment [Automated [employer] ge] The system which generated this result transmitted reference range: 11.5-15.5 G/DL. The reference range was not used to interpret this result as normal/abnormal. LYMPHOCYTES (test code = 71705-1) 15.3 % MCH (test code = 63659-1) 32.6 PG See_Comment [Automated [employer] ge] The system which generated this result transmitted reference range: 25.0-33.0 PG. The reference range was not used to interpret this result as normal/abnormal. MCHC (test code = 42938-3) 32.5 G/DL See_Comment [Automated [employer] ge] The system which generated this result transmitted reference range: 31.0-36.0 G/DL. The reference range was not used to interpret this result as normal/abnormal. MCV (test code = 94777-9) 100.5 fL See_Comment H [Automated messa ge] The system which generated this result transmitted reference range: 80.0-99.0 fL. The reference range was not used to interpret this result as normal/abnormal. MICROSCOPIC DESCRIPTION: (test code = 59179-6) (NOTE) MONOCYTES (test code = 14664-6) 12.9 % NEUTROPHILS (test code = 31815-1) 68.9 % NUCLEATED RBCS (test code = 49874-4) 0.0 /100 WBC'S See_Comment [Automated messa ge] The system which generated this result transmitted reference range: 0.0 /100 WBC'S. The reference range was not used to interpret this result as normal/abnormal. PATHOLOGIST: (test code = 25792-8) (NOTE) PLATELET COUNT (test code = 30230-7) 263 K/UL See_Comment [Automated messa ge] The system which generated this result transmitted reference range: 130-400 K/UL. The reference range was not used to interpret this result as normal/abnormal. RBC (test code = 93557-8) 3.80 M/UL See_Comment [Automated messa ge] The system which generated this result transmitted reference range: 3.80-5.40 M/UL. The reference range was not used to interpret this result as normal/abnormal. RDW (test code = 54307-1) 15.3 % See_Comment H [Automated messa ge] The system which generated this result transmitted reference range: 11.5-15.0 %. The reference range was not used to interpret this result as normal/abnormal. WBC (test code = 41326-5) 4.7 K/UL See_Comment [Automated messa ge] The system which generated this result transmitted reference range: 3.5-11.0 K/UL. The reference range was not used to interpret this result as normal/abnormal. IRON BINDING CAPACITY AND IRON AND % [id number] 00:00:00* Test Item Value Reference Range Interpretation Comme nts CALC % IRON SAT (test code = 2502-3) 31 % See_Comment [Automated messa ge] The system which generated this result transmitted reference range: 20-50 %. The reference range was not used to interpret this result as normal/abnormal. CALC TOTAL IBC (test code = 70397-9) 314 UG/DL See_Comment [Automated messa ge] The system which generated this result transmitted reference range: 250-450 UG/DL. The reference range was not used to interpret this result as normal/abnormal. IRON, SERUM (test code = 2498-4) 97 UG/DL See_Comment [Automated messa ge] The system which generated this result transmitted reference range: 37-145 UG/DL. The reference range was not used to interpret this result as normal/abnormal. UNSATURATED IBC (test code = 2501-5) 217 UG/DL See_Comment [Automated messa ge] The system which generated this result transmitted reference range: 112-347 UG/DL. The reference range was not used to interpret this result as normal/abnormal. COMPREHENSIVE METABOLIC [id number] 00:00:00* Test Item Value Reference Range Interpretation Comme nts ALBUMIN (test code = 1751-7) 4.4 G/DL See_Comment [Automated messa ge] The system which generated this result transmitted reference range: 3.5-5.2 G/DL. The reference range was not used to interpret this result as normal/abnormal. ALKALINE PHOSPHATASE (test code = 6768-6) 75 U/L See_Comment [Automated message] The system which generated this result transmitted reference range: 40-142 U/L. The reference range was not used to interpret this result as normal/abnormal. BILIRUBIN, TOTAL (test code = 1975-2) 0.3 MG/DL See_Comment [Automated message] The system which generated this result transmitted reference range: <=1.2 MG/DL. The reference range was not used to interpret this result as normal/abnormal. BUN (test code = 3094-0) 17 MG/DL See_Comment [Automated messa ge] The system which generated this result transmitted reference range: 8-23 MG/DL. The reference range was not used to interpret this result as normal/abnormal. CALCIUM (test code = 99616-9) 10.9 MG/DL See_Comment H [Automated messa ge] The system which generated this result transmitted reference range: 8.5-10.5 MG/DL. The reference range was not used to interpret this result as normal/abnormal. CALC A/G RATIO (test code = 1759-0) 1.5 RATIO See_Comment [Automated messa ge] The system which generated this result transmitted reference range: 1.0-2.6 RATIO. The reference range was not used to interpret this result as normal/abnormal. CALC BUN/CREAT (test code = 3097-3) 17 RATIO See_Comment [Automated messa ge] The system which generated this result transmitted reference range: 6-28 RATIO. The reference range was not used to interpret this result as normal/abnormal. CALC GLOBULIN (test code = 17908-6) 3.0 G/DL See_Comment [Automated messa ge] The system which generated this result transmitted reference range: 1.9-3.7 G/DL. The reference range was not used to interpret this result as normal/abnormal. CARBON DIOXIDE (test code = 1963-8) 31 MEQ/L See_Comment [Automated messa ge] The system which generated this result transmitted reference range: 19-31 MEQ/L. The reference range was not used to interpret this result as normal/abnormal. CHLORIDE (test code = 2075-0) 94 MEQ/L See_Comment L [Automated messa ge] The system which generated this result transmitted reference range: 95-107 MEQ/L. The reference range was not used to interpret this result as normal/abnormal. CREATININE (test code = 2160-0) 0.99 MG/DL See_Comment [Automated messa ge] The system which generated this result transmitted reference range: 0.60-1.30 MG/DL. The reference range was not used to interpret this result as normal/abnormal. eGFR (2020 CKD-EPI) (test code = 76027-2) 59 ML/MIN/1.73 See_Comment L [Automated messa ge] The system which generated this result transmitted reference range: >60 ML/MIN/1.73. The reference range was not used to interpret this result as normal/abnormal. GLUCOSE (test code = 1558-6) 94 MG/DL See_Comment [Automated messa ge] The system which generated this result transmitted reference range: 70-99 MG/DL. The reference range was not used to interpret this result as normal/abnormal. POTASSIUM (test code = 2823-3) 5.1 MEQ/L See_Comment [Automated messa ge] The system which generated this result transmitted reference range: 3.5-5.4 MEQ/L. The reference range was not used to interpret this result as normal/abnormal. PROTEIN, TOTAL (test code = 2885-2) 7.4 G/DL See_Comment [Automated messa ge] The system which generated this result transmitted reference range: 6.1-8.3 G/DL. The reference range was not used to interpret this result as normal/abnormal. AST (test code = 1920-8) 19 U/L See_Comment [Automated messa ge] The system which generated this result transmitted reference range: 9-40 U/L. The reference range was not used to interpret this result as normal/abnormal. ALT (test code = 1742-6) 14 U/L See_Comment [Automated messa ge] The system which generated this result transmitted reference range: 5-40 U/L. The reference range was not used to interpret this result as normal/abnormal. SODIUM (test code = 2951-2) 133 MEQ/L See_Comment [Automated messa ge] The system which generated this result transmitted reference range: 133-146 MEQ/L. The reference range was not used to interpret this result as normal/abnormal. ARTERY,[id number] 10:05:00 RUN DATE: 05/07/19 [facility] LAB PAGE 1 RUN TIME: 1005 Specimen Inquiry RUN USER: INTERFACE YFN T: RACHEAL SABILLON LOC: ENA U #: [id number] AGE/SX: 73/F ROOM: JOSEP RE05/05/19REG DR: Rohith Kc MD : 46 BED: A DIS: STATUS: ADM IN TLOC: SPEC #: [id number] RECD: 05/05/19 STATUS: DIEGO RESienna #: [id number] GUS: 05/05/[address]: Rohith Kc MD ENTERED: 05/05/19 SP TYPE: ARTERY, PL OTHR DR: Jose Marc MD, Nioti R MD Pepper, Gregory S MDORDERED: DECAL,SURG PATH LVL 3, SURG PATH LVL 4 CODES: [id number] - PLAQUE, NOS [id number] - ARTERY, NOS [id number] - CAROTID ARTERY ATHEROSCLEROSIS [id number] - CERVIX EXCISIONAL BIOP [id number] - LYMPH NODE, NOS COPIES TO: Jose Marc MD [address] [place] [address] [address] [place] [id number] [email or web address] [address] [place] [address] [place] [address] [facility] [address] [place] [address] [place] [address] [facility] [address] [place] 6[address]328 ICD CODES: 440 - PROCEDURES: DECAL (05/06/19-09) SURG PATH LVL 3 (05/05/19-1612) SURG PATH LVL 4 (05/06/19-1325) TISSUES: A. ARTERY, NOS - LT CAROTID PLAQUE B. LYMPH NODE, NOS - LT CERVICAL LYMPH NODE CONTINUED ON NEXT PAGE RUN DATE: 05/07/19 [facility] PAGE 2 RUN TIME: 1005 Specimen Inquiry RUN USER: INTERFACE SPEC #: [id number] PATIENT: RACHEAL SABILLON #[id number] (Edgar nued) CLINICAL HISTORY LEFT INTERNAL CAROTID ARTERY STENOSIS CPT CODES CPT CODE(S): 57799 , 88241 , 23096 ,, , , FINAL DIAGNOSIS A. Plaque, left carotid artery, endarterectomy: ATHEROSCLEROSIS, CALCIFIC ANDOCCLUSIVE B. Lymph node, left cervical, excisional biopsy: [...] lymph node sections with variable mild perisinusoidal andparacortical reactive changes. No atypical features. /cm Signed David Maier 05/07/19 1005 END OF REPORT BASIC METABOLIC [id number] 04:51:00* Test Item Value Reference Range Interpretation Comme nts SODIUM (test code = NA) 135 MMOL/L 137-145 L POTASSIUM (test code = K) 3.6 MMOL/L 3.5-5.1 N CHLORIDE (test code = CL) 93 MMOL/L 98-107 L CARBON DIOXIDE (test code = CO2) 33 MMOL/L 22-30 H GLUCOSE (test code = GLU) 93 MG/DL 74-106 BLOOD UREA NITROGEN (test code = BUN) 11 MG/DL 7-17 N GLOMERULAR FILTRATION RATE (test code = GFR) > 60 Reporting units: ml/min/1.73 m2 (Modified MDRD Formula)Reference Range: > or = 60 ml/min/1.73 m2 CREATININE (test code = CREAT) 0.60 MG/DL 0.52-1.04 N CALCIUM (test code = CA) 9.6 MG/DL 8.4-10.2 N BASIC METABOLIC [id number] 04:40:00* Test Item Value Reference Range Interpretation Comme nts SODIUM (test code = NA) 135 MMOL/L 137-145 L POTASSIUM (test code = K) 3.6 MMOL/L 3.5-5.1 N CHLORIDE (test code = CL) 93 MMOL/L 98-107 L CARBON DIOXIDE (test code = CO2) 33 MMOL/L 22-30 H GLUCOSE (test code = GLU) MG/DL 74-106 BLOOD UREA NITROGEN (test code = BUN) MG/DL 7-17 GLOMERULAR FILTRATION RATE (test code = GFR) > 60 Reporting units: ml/min/1.73 m2 (Modified MDRD Formula)Reference Range: > or = 60 ml/min/1.73 m2 CREATININE (test code = CREAT) 0.60 MG/DL 0.52-1.04 N CALCIUM (test code = CA) MG/DL 8.7-9.7 BASIC METABOLIC [id number] 04:38:00* Test Item Value Reference Range Interpretation Comme nts SODIUM (test code = NA) 135 MMOL/L 137-145 L POTASSIUM (test code = K) 3.6 MMOL/L 3.5-5.1 N CHLORIDE (test code = CL) 93 MMOL/L 98-107 L CARBON DIOXIDE (test code = CO2) MMOL/L 22-30 GLUCOSE (test code = GLU) MG/DL 74-106 BLOOD UREA NITROGEN (test co de = BUN) MG/DL 7-17 GLOMERULAR FILTRATION RATE ( test code = GFR) CREATININE (test code = CREAT) MG/DL 0.52-1.04 CALCIUM (test code = CA) MG/DL 8.7-9.7 BASIC METABOLIC [id number] 04:37:00* Test Item Value Reference Range Interpretation Comme nts SODIUM (test code = NA) 135 MMOL/L 137-145 L POTASSIUM (test code = K) MMOL/L 3.5-5.1 CHLORIDE (test code = CL) 93 MMOL/L 98-107 L CARBON DIOXIDE (test code = CO2) MMOL/L 22-30 GLUCOSE (test code = GLU) MG/DL 74-106 BLOOD UREA NITROGEN (test co de = BUN) MG/DL 7-17 GLOMERULAR FILTRATION RATE ( test code = GFR) CREATININE (test code = CREAT) MG/DL 0.52-1.04 CALCIUM (test code = CA) MG/DL 8.7-9.7 CBC W/AUTO [id number] 04:18:00* Test Item Value Reference Range Interpretation Comme nts WHITE BLOOD CELL (test code = WBC) 11.8 K/MM3 3.8-9.8 H RED BLOOD CELL (test code = RBC) 3.36 M/MM3 3.58-4.97 L HEMOGLOBIN (test code = HGB) 11.0 G/DL 11.2-14.9 L HEMATOCRIT (test code = HCT) 32.2 % 33.2-43.5 L MEAN CELL VOLUME (test code = MCV) 96 fL 80.7-99.1 N MEAN CELL HGB (test code = MCH) 32.7 pg 27.0-34.1 N MEAN CELL HGB CONCETRATION (test code = MCHC) 34.2 % 32.2-35.7 N RED CELL DISTRIBUTION WIDTH (test code = RDW) 15.6 % 12.1-15.2 H PLATELET COUNT (test code = PLT) 276 K/MM3 129-368 N MEAN PLATELET VOLUME (test c ode = MPV) 9.3 fl 7.4-10.4 N NEUTROPHIL % (test code = NT%) 73.7 % 43-75 N IMMATURE GRANULOCYTE % (test code = IG%) 0.4 % 0.0-2.0 N LYMPHOCYTE % (test code = LY%) 13.3 % 14-44 L MONOCYTE % (test code = MO%) 12.3 % 4-13 N EOSINOPHIL % (test code = EO%) 0.2 % 0-6 N BASOPHIL % (test code = BA%) 0.1 % 0-2 N NUCLEATED RBC % (test code = NRBC%) 0.0 % 0-1.0 N NEUTROPHIL # (test code = NT#) 8.72 K/mm3 2.0-7.6 H IMMATURE GRANULOCYTE # (test code = IG#) 0.05 x10 3/uL 0-0.03 H LYMPHOCYTE # (test code = LY#) 1.57 K/mm3 1.0-3.8 N MONOCYTE # (test code = MO#) 1.45 K/mm3 0.1-0.8 H EOSINOPHIL # (test code = EO#) 0.02 K/mm3 0.0-0.2 N BASOPHIL # (test code = BA#) 0.01 K/mm3 0.0-0.2 N NUCLEATED RBC # (test code = NRBC#) 0.00 K/mm3 0.0-0.1 N - XR CHEST [id number] 09:05:00Patient Name: RACHEAL SABILLON Unit No: [id number] EXAMS: CPT CODE: [id number] XR CHEST 1V [id number] ID: [id number] HISTORY: Postoperative, left ICA stenosis [...] MD CC: Jose Marc MD Technologist: Lety Vazquez RT(R) Transcrpt Date/Tm/Trnsp: 05/06/2019 (904) [email or web address] Orig Print D/T: S: 05/06/2019 (0908) [facility] NAME: RACHEAL SABILLON [address] PHYS: [place] [address] : 1945 AGE: 73 SEX: F : Z.SI04 A PHONE #: [phone] EXAM DATE: 05/06/2019 STATUS: ADM IN FAX #: [phone] RADIOLOGY NO: PAGE 1 Signed Report BASIC METABOLIC [id number] 06:09:00* Test Item Value Reference Range Interpretation Comme nts SODIUM (test code = NA) 133 MMOL/L 137-145 L POTASSIUM (test code = K) 3.5 MMOL/L 3.5-5.1 N CHLORIDE (test code = CL) 95 MMOL/L 98-107 L CARBON DIOXIDE (test code = CO2) 26 MMOL/L 22-30 N ANION GAP (test code = GAP) 16 MMOL/L 14-24 N GLUCOSE (test code = GLU) 139 MG/DL 74-106 H BLOOD UREA NITROGEN (test code = BUN) 9 MG/DL 7-17 N GLOMERULAR FILTRATION RATE (test code = GFR) > 60 Reporting units: ml/min/1.73 m2 (Modified MDRD Formula)Reference Range: > or = 60 ml/min/1.73 m2 CREATININE (test code = CREAT) 0.60 MG/DL 0.52-1.04 N CALCIUM (test code = CA) 9.4 MG/DL 8.4-10.2 N [id number] 06:09:00* Test Item Value Reference Range Interpretation Comme nts MAGNESIUM (test code = MAG) 1.5 MG/DL 1.6-2.3 L BASIC METABOLIC [id number] 05:59:00* Test Item Value Reference Range Interpretation Comme nts SODIUM (test code = NA) 133 MMOL/L 137-145 L POTASSIUM (test code = K) 3.5 MMOL/L 3.5-5.1 N CHLORIDE (test code = CL) 95 MMOL/L 98-107 L CARBON DIOXIDE (test code = CO2) MMOL/L 22-30 GLUCOSE (test code = GLU) MG/DL 74-106 BLOOD UREA NITROGEN (test co de = BUN) MG/DL 7-17 GLOMERULAR FILTRATION RATE ( test code = GFR) CREATININE (test code = CREAT) MG/DL 0.52-1.04 CALCIUM (test code = CA) MG/DL 8.7-9.7 [id number] 05:59:00* Test Item Value Reference Range Interpretation Comme nts MAGNESIUM (test code = MAG) MG/DL 1.6-2.3 CBC W/AUTO [id number] 05:46:00* Test Item Value Reference Range Interpretation Comme nts WHITE BLOOD CELL (test code = WBC) 13.4 K/MM3 3.8-9.8 H RED BLOOD CELL (test code = RBC) 3.32 M/MM3 3.58-4.97 L HEMOGLOBIN (test code = HGB) 10.7 G/DL 11.2-14.9 L HEMATOCRIT (test code = HCT) 32.3 % 33.2-43.5 L MEAN CELL VOLUME (test code = MCV) 97 fL 80.7-99.1 N MEAN CELL HGB (test code = MCH) 32.2 pg 27.0-34.1 N MEAN CELL HGB CONCETRATION (test code = MCHC) 33.1 % 32.2-35.7 N RED CELL DISTRIBUTION WIDTH (test code = RDW) 14.8 % 12.1-15.2 N PLATELET COUNT (test code = PLT) 269 K/MM3 129-368 N MEAN PLATELET VOLUME (test c ode = MPV) 9.0 fl 7.4-10.4 N NEUTROPHIL % (test code = NT%) 85.5 % 43-75 H IMMATURE GRANULOCYTE % (test code = IG%) 0.4 % 0.0-2.0 N LYMPHOCYTE % (test code = LY%) 6.6 % 14-44 L MONOCYTE % (test code = MO%) 7.4 % 4-13 N EOSINOPHIL % (test code = EO%) 0.0 % 0-6 N BASOPHIL % (test code = BA%) 0.1 % 0-2 N NUCLEATED RBC % (test code = NRBC%) 0.0 % 0-1.0 N NEUTROPHIL # (test code = NT#) 11.48 K/mm3 2.0-7.6 H IMMATURE GRANULOCYTE # (test code = IG#) 0.05 x10 3/uL 0-0.03 H LYMPHOCYTE # (test code = LY#) 0.89 K/mm3 1.0-3.8 L MONOCYTE # (test code = MO#) 0.99 K/mm3 0.1-0.8 H EOSINOPHIL # (test code = EO#) 0.00 K/mm3 0.0-0.2 N BASOPHIL # (test code = BA#) 0.01 K/mm3 0.0-0.2 N NUCLEATED RBC # (test code = NRBC#) 0.00 K/mm3 0.0-0.1 N BASIC METABOLIC [id number] 13:49:00* Test Item Value Reference Range Interpretation Comme nts SODIUM (test code = NA) 136 MMOL/L 137-145 L POTASSIUM (test code = K) 2.9 MMOL/L 3.5-5.1 L CALLED TO [employer]& READBACK ON 05/05/19 AT 1348 BY Andrey De Guzman CHLORIDE (test code = CL) 98 MMOL/L 98-107 N CARBON DIOXIDE (test code = CO2) 30 MMOL/L 22-30 N ANION GAP (test code = GAP) 11 MMOL/L 14-24 L GLUCOSE (test code = GLU) 120 MG/DL 74-106 H BLOOD UREA NITROGEN (test code = BUN) 13 MG/DL 7-17 N GLOMERULAR FILTRATION RATE (test code = GFR) > 60 Reporting units: ml/min/1.73 m2 (Modified MDRD Formula)Reference Range: > or = 60 ml/min/1.73 m2 CREATININE (test code = CREAT) 0.60 MG/DL 0.52-1.04 N CALCIUM (test code = CA) 9.7 MG/DL 8.4-10.2 N [id number] 13:49:00* Test Item Value Reference Range Interpretation Comme nts MAGNESIUM (test code = MAG) 1.4 MG/DL 1.6-2.3 L BASIC METABOLIC [id number] 13:48:00* Test Item Value Reference Range Interpretation Comme nts SODIUM (test code = NA) 136 MMOL/L 137-145 L POTASSIUM (test code = K) 2.9 MMOL/L 3.5-5.1 L CALLED TO [employer]& READBACK ON 05/05/19 AT 1348 BY Andrey De Guzman CHLORIDE (test code = CL) 98 MMOL/L 98-107 N CARBON DIOXIDE (test code = CO2) 30 MMOL/L 22-30 N ANION GAP (test code = GAP) 11 MMOL/L 14-24 L GLUCOSE (test code = GLU) 120 MG/DL 74-106 H BLOOD UREA NITROGEN (test code = BUN) 13 MG/DL 7-17 N GLOMERULAR FILTRATION RATE (test code = GFR) > 60 Reporting units: ml/min/1.73 m2 (Modified MDRD Formula)Reference Range: > or = 60 ml/min/1.73 m2 CREATININE (test code = CREAT) 0.60 MG/DL 0.52-1.04 N CALCIUM (test code = CA) 9.7 MG/DL 8.4-10.2 N [id number] 13:48:00* Test Item Value Reference Range Interpretation Comme nts MAGNESIUM (test code = MAG) MG/DL 1.6-2.3 - XR CHEST [id number] 13:35:00Patient Name: RACHEAL SABILLON Unit No: [id number] EXAMS: CPT CODE: [id number] XR CHEST 1V [id number] Location of dictation: B2 Portable chest one [...] Balderas M.D. CC: Jose Marc MD Technologist: [facility] STUDENT ; Alhaji Cha, RT(R) Transcrpt Date/Tm/Trnsp: 05/05/2019 (2302) [email or web address] Orig Print D/T: S: 05/05/2019 (5903) [facility] NAME: RACHEAL SABILLON [address] PHYS: [place] [address] : 1945 AGE: 73 SEX: F LOC: Z.SI04 A PHONE #: [phone] EXAM DATE: 05/05/2019 STATUS: ADM IN FAX #: [phone] RADIOLOGY NO: PAGE 1 Signed Report CBC W/AUTO [id number] 13:20:00* Test Item Value Reference Range Interpretation Comme nts WHITE BLOOD CELL (test code = WBC) 7.7 K/MM3 3.8-9.8 N RED BLOOD CELL (test code = RBC) 3.33 M/MM3 3.58-4.97 L HEMOGLOBIN (test code = HGB) 10.7 G/DL 11.2-14.9 L HEMATOCRIT (test code = HCT) 31.7 % 33.2-43.5 L MEAN CELL VOLUME (test code = MCV) 95 fL 80.7-99.1 N MEAN CELL HGB (test code = MCH) 32.1 pg 27.0-34.1 N MEAN CELL HGB CONCETRATION (test code = MCHC) 33.8 % 32.2-35.7 N RED CELL DISTRIBUTION WIDTH (test code = RDW) 15.2 % 12.1-15.2 N PLATELET COUNT (test code = PLT) 231 K/MM3 129-368 MEAN PLATELET VOLUME (test c ode = MPV) 9.0 fl 7.4-10.4 N NEUTROPHIL % (test code = NT%) 77.4 % 43-75 H IMMATURE GRANULOCYTE % (test code = IG%) 0.7 % 0.0-2.0 N LYMPHOCYTE % (test code = LY%) 13.2 % 14-44 L MONOCYTE % (test code = MO%) 5.7 % 4-13 N EOSINOPHIL % (test code = EO%) 2.7 % 0-6 N BASOPHIL % (test code = BA%) 0.3 % 0-2 N NUCLEATED RBC % (test code = NRBC%) 0.0 % 0-1.0 N NEUTROPHIL # (test code = NT#) 5.95 K/mm3 2.0-7.6 N IMMATURE GRANULOCYTE # (test code = IG#) 0.05 x10 3/uL 0-0.03 H LYMPHOCYTE # (test code = LY#) 1.01 K/mm3 1.0-3.8 N MONOCYTE # (test code = MO#) 0.44 K/mm3 0.1-0.8 N EOSINOPHIL # (test code = EO#) 0.21 K/mm3 0.0-0.2 H BASOPHIL # (test code = BA#) 0.02 K/mm3 0.0-0.2 N NUCLEATED RBC # (test code = NRBC#) 0.00 K/mm3 0.0-0.1 N ARTERIAL BLOOD [id number] 13:17:00* Test Item Value Reference Range Interpretation Comme nts ARTERIAL BLOOD GAS PH (test code = PHA) 7.36 mmHg 7.35-7.45 N ARTERIAL BLOOD GAS PCO2 (test code = PCO2A) 51.2 mmHg 35.0-45.0 HH ARTERIAL BLOOD GAS PO2 (test code = PO2A) 107.8 mmol/L 80.0-100.0 H BICARBONATE TOTAL HCO3 (test code = HCO3) 28.0 mmol/L 20.0-26.0 H BASE EXCESS (test code = RUKHSANA) 1.5 mmol/L -3.0-3.0 N ABG O2 SATURATION (test code = SATA) 97.7 % 95.0-100.0 N All critical values report to and readback by ZANE TENORIO by ASHKAN at 05/05/2019 1:16:23 PM ABG DELIVERY (test code = DENISE) FACETENT ABG TEMPERATURE (test code = TEMPA) 37.0 C >37 ABG SITE (test code = SITEA) AL ALLENS TEST (test code = ALLENS) NA CHECK FIO2 (test code = COHBGFFIO2) 60 % PROTHROMBIN [id number] 13:06:00* Test Item Value Reference Range Interpretation Comme nts PROTHROMBIN TIME PATIENT (test code = PTP) 10.5 SECONDS 9.6-11.6 N INTERNATIONAL NORMAL RATIO (test code = INR) 1.0 0.8-1.1 N The INR is to be used only for monitoring oral anticoagulanttherap y. INDICATION INR VALUE -------1. Prophylaxis, deep venous thrombosis, including high risk surgery. 2.0 - 3.0 2. Prophylaxis, deep venous thrombosis, hip surgery, treatment for deep venous thrombosis or pulmonary prevention of systemic embolism in patients with valvular heart disease, atrial fibrillation, tissue heart valve, or acute myocardial infarction. 2.0 - 3.0 3. Mechanical prosthesis heart valves, recurrent systemic embolism. 3.0 - 4.5 PTT [id number] 13:06:00* Test Item Value Reference Range Interpretation Comme nts PTT ACTIVATED (test code = APTT) 30.4 SECONDS 22.0-33.0 N HIV 12 AB [id number] 13:02:00* Test Item Value Reference Range Interpretation Comme nts HIV 1 2 COMBO AG/AB SCREEN (test code = [id number]) AB/AG NON REACTIVE NONREACTIVE CBC W/AUTO [id number] 12:51:00* Test Item Value Reference Range Interpretation Comme nts WHITE BLOOD CELL (test code = WBC) 6.0 K/MM3 3.8-9.8 N RED BLOOD CELL (test code = RBC) 3.61 M/MM3 3.58-4.97 N HEMOGLOBIN (test code = HGB) 11.5 G/DL 11.2-14.9 N HEMATOCRIT (test code = HCT) 35.9 % 33.2-43.5 N MEAN CELL VOLUME (test code = MCV) 99 fL 80.7-99.1 N MEAN CELL HGB (test code = MCH) 31.9 pg 27.0-34.1 N MEAN CELL HGB CONCETRATION (test code = MCHC) 32.0 % 32.2-35.7 L RED CELL DISTRIBUTION WIDTH (test code = RDW) 15.1 % 12.1-15.2 N PLATELET COUNT (test code = PLT) 292 K/MM3 129-368 N MEAN PLATELET VOLUME (test c ode = MPV) 9.1 fl 7.4-10.4 N NEUTROPHIL % (test code = NT%) 62.8 % 43-75 N IMMATURE GRANULOCYTE % (test code = IG%) 0.2 % 0.0-2.0 N LYMPHOCYTE % (test code = LY%) 22.1 % 14-44 N MONOCYTE % (test code = MO%) 11.6 % 4-13 N EOSINOPHIL % (test code = EO%) 2.8 % 0-6 N BASOPHIL % (test code = BA%) 0.5 % 0-2 N NUCLEATED RBC % (test code = NRBC%) 0.0 % 0-1.0 N NEUTROPHIL # (test code = NT#) 3.75 K/mm3 2.0-7.6 N IMMATURE GRANULOCYTE # (test code = IG#) 0.01 x10 3/uL 0-0.03 N LYMPHOCYTE # (test code = LY#) 1.32 K/mm3 1.0-3.8 N MONOCYTE # (test code = MO#) 0.69 K/mm3 0.1-0.8 N EOSINOPHIL # (test code = EO#) 0.17 K/mm3 0.0-0.2 N BASOPHIL # (test code = BA#) 0.03 K/mm3 0.0-0.2 N NUCLEATED RBC # (test code = NRBC#) 0.00 K/mm3 0.0-0.1 N BASIC METABOLIC [id number] 12:21:00* Test Item Value Reference Range Interpretation Comme nts SODIUM (test code = NA) 133 MMOL/L 137-145 L POTASSIUM (test code = K) 3.5 MMOL/L 3.5-5.1 N CHLORIDE (test code = CL) 90 MMOL/L 98-107 L CARBON DIOXIDE (test code = CO2) 34 MMOL/L 22-30 H GLUCOSE (test code = GLU) 93 MG/DL 74-106 N BLOOD UREA NITROGEN (test code = BUN) 13 MG/DL 7-17 N GLOMERULAR FILTRATION RATE (test code = GFR) > 60 Reporting units: ml/min/1.73 m2 (Modified MDRD Formula)Reference Range: > or = 60 ml/min/1.73 m2 CREATININE (test code = CREAT) 0.60 MG/DL 0.52-1.04 N CALCIUM (test code = CA) 9.9 MG/DL 8.4-10.2 N BASIC METABOLIC [id number] 12:20:00* Test Item Value Reference Range Interpretation Comme nts SODIUM (test code = NA) 133 MMOL/L 137-145 L POTASSIUM (test code = K) 3.5 MMOL/L 3.5-5.1 N CHLORIDE (test code = CL) 90 MMOL/L 98-107 L CARBON DIOXIDE (test code = CO2) MMOL/L 22-30 GLUCOSE (test code = GLU) MG/DL 74-106 BLOOD UREA NITROGEN (test code = BUN) MG/DL 7-17 GLOMERULAR FILTRATION RATE (test code = GFR) > 60 Reporting units: ml/min/1.73 m2 (Modified MDRD Formula)Reference Range: > or = 60 ml/min/1.73 m2 CREATININE (test code = CREAT) 0.60 MG/DL 0.52-1.04 N CALCIUM (test code = CA) MG/DL 8.7-9.7 BASIC METABOLIC [id number] 12:18:00* Test Item Value Reference Range Interpretation Comme nts SODIUM (test code = NA) 133 MMOL/L 137-145 L POTASSIUM (test code = K) 3.5 MMOL/L 3.5-5.1 N CHLORIDE (test code = CL) 90 MMOL/L 98-107 L CARBON DIOXIDE (test code = CO2) MMOL/L 22-30 GLUCOSE (test code = GLU) MG/DL 74-106 BLOOD UREA NITROGEN (test co de = BUN) MG/DL 7-17 GLOMERULAR FILTRATION RATE ( test code = GFR) CREATININE (test code = CREAT) MG/DL 0.52-1.04 CALCIUM (test code = CA) MG/DL 8.7-9.7 BASIC METABOLIC [id number] 12:17:00* Test Item Value Reference Range Interpretation Comme nts SODIUM (test code = NA) MMOL/L 137-145 POTASSIUM (test code = K) MMOL/L 3.5-5.1 CHLORIDE (test code = CL) 90 MMOL/L 98-107 L CARBON DIOXIDE (test code = CO2) MMOL/L 22-30 GLUCOSE (test code = GLU) MG/DL 74-106 BLOOD UREA NITROGEN (test co de = BUN) MG/DL 7-17 GLOMERULAR FILTRATION RATE ( test code = GFR) CREATININE (test code = CREAT) MG/DL 0.52-1.04 CALCIUM (test code = CA) MG/DL 8.7-9.7 - XR CHEST 2 [id number] 11:39:00Patient Name: RACHEAL SABILLON Unit No: [id number] EXAMS: CPT CODE: [id number] XR CHEST 2 V [id number]: [id number] EXAM: CHEST 2 VIEWS INDICATION: PRE-OP [...] Mueller MD CC: Jose Marc MD Technologist: Jacqueline Jiménez, RT (R) Transcrpt Date/Tm/Trnsp: 05/04/2019 (1139) [email or web address] Orig Print D/T: S: 05/04/2019 (1142) [facility] NAME: RACHEAL SABILLON [id number] PHYS: [place] [address] : 1945 AGE: 73 SEX: F LOC: SIMONE PHONE #: [phone] EXAM DATE: 05/04/2019 STATUS: PRE [facility] [place] FAX #: [phone] RADIOLOGY NO: PAGE 1 Signed ReportBASIC METABOLIC [id number] 05:09:00* Test Item Value Reference Range Interpretation Comme nts SODIUM (test code = NA) 137 MMOL/L 137-145 N POTASSIUM (test code = K) 3.8 MMOL/L 3.5-5.1 N CHLORIDE (test code = CL) 94 MMOL/L 98-107 L CARBON DIOXIDE (test code = CO2) 37 MMOL/L 22-30 H GLUCOSE (test code = GLU) 105 MG/DL 74-106 N BLOOD UREA NITROGEN (test code = BUN) 8 MG/DL 7-17 N GLOMERULAR FILTRATION RATE (test code = GFR) > 60 Reporting units: ml/min/1.73 m2 (Modified MDRD Formula)Reference Range: > or = 60 ml/min/1.73 m2 CREATININE (test code = CREAT) 0.50 MG/DL 0.52-1.04 L CALCIUM (test code = CA) 9.0 MG/DL 8.4-10.2 N [id number] 05:09:00* Test Item Value Reference Range Interpretation Comme nts MAGNESIUM (test code = MAG) 1.8 MG/DL 1.6-2.3 N CBC W/AUTO [id number] 04:46:00* Test Item Value Reference Range Interpretation Comme nts WHITE BLOOD CELL (test code = WBC) 11.9 K/MM3 3.8-9.8 H RED BLOOD CELL (test code = RBC) 3.34 M/MM3 3.58-4.97 L HEMOGLOBIN (test code = HGB) 10.8 G/DL 11.2-14.9 L HEMATOCRIT (test code = HCT) 33.2 % 33.2-43.5 N MEAN CELL VOLUME (test code = MCV) 99 fL 80.7-99.1 N MEAN CELL HGB (test code = MCH) 32.3 pg 27.0-34.1 N MEAN CELL HGB CONCETRATION (test code = MCHC) 32.5 % 32.2-35.7 N RED CELL DISTRIBUTION WIDTH (test code = RDW) 14.9 % 12.1-15.2 N PLATELET COUNT (test code = PLT) 270 K/MM3 129-368 N MEAN PLATELET VOLUME (test c ode = MPV) 8.8 fl 7.4-10.4 N NEUTROPHIL % (test code = NT%) 75.6 % 43-75 H IMMATURE GRANULOCYTE % (test code = IG%) 0.3 % 0.0-2.0 N LYMPHOCYTE % (test code = LY%) 10.5 % 14-44 L MONOCYTE % (test code = MO%) 12.9 % 4-13 N EOSINOPHIL % (test code = EO%) 0.5 % 0-6 N BASOPHIL % (test code = BA%) 0.2 % 0-2 N NUCLEATED RBC % (test code = NRBC%) 0.0 % 0-1.0 N NEUTROPHIL # (test code = NT#) 9.00 K/mm3 2.0-7.6 H IMMATURE GRANULOCYTE # (test code = IG#) 0.03 x10 3/uL 0-0.03 N LYMPHOCYTE # (test code = LY#) 1.25 K/mm3 1.0-3.8 N MONOCYTE # (test code = MO#) 1.54 K/mm3 0.1-0.8 H EOSINOPHIL # (test code = EO#) 0.06 K/mm3 0.0-0.2 N BASOPHIL # (test code = BA#) 0.02 K/mm3 0.0-0.2 N NUCLEATED RBC # (test code = NRBC#) 0.00 K/mm3 0.0-0.1 N BASIC METABOLIC [id number] 06:03:00* Test Item Value Reference Range Interpretation Comme nts SODIUM (test code = NA) 136 MMOL/L 137-145 L POTASSIUM (test code = K) 3.6 MMOL/L 3.5-5.1 N CHLORIDE (test code = CL) 95 MMOL/L 98-107 L CARBON DIOXIDE (test code = CO2) 33 MMOL/L 22-30 H GLUCOSE (test code = GLU) 110 MG/DL 74-106 H BLOOD UREA NITROGEN (test code = BUN) 8 MG/DL 7-17 N GLOMERULAR FILTRATION RATE (test code = GFR) > 60 Reporting units: ml/min/1.73 m2 (Modified MDRD Formula)Reference Range: > or = 60 ml/min/1.73 m2 CREATININE (test code = CREAT) 0.60 MG/DL 0.52-1.04 N CALCIUM (test code = CA) 8.7 MG/DL 8.4-10.2 N [id number] 06:03:00* Test Item Value Reference Range Interpretation Comme nts MAGNESIUM (test code = MAG) 2.1 MG/DL 1.6-2.3 N CBC W/AUTO [id number] 05:32:00* Test Item Value Reference Range Interpretation Comme nts WHITE BLOOD CELL (test code = WBC) 11.6 K/MM3 3.8-9.8 H RED BLOOD CELL (test code = RBC) 3.39 M/MM3 3.58-4.97 L HEMOGLOBIN (test code = HGB) 11.0 G/DL 11.2-14.9 L HEMATOCRIT (test code = HCT) 33.6 % 33.2-43.5 N MEAN CELL VOLUME (test code = MCV) 99 fL 80.7-99.1 N MEAN CELL HGB (test code = MCH) 32.4 pg 27.0-34.1 N MEAN CELL HGB CONCETRATION (test code = MCHC) 32.7 % 32.2-35.7 N RED CELL DISTRIBUTION WIDTH (test code = RDW) 15.1 % 12.1-15.2 N PLATELET COUNT (test code = PLT) 274 K/MM3 129-368 N MEAN PLATELET VOLUME (test c ode = MPV) 8.8 fl 7.4-10.4 N NEUTROPHIL % (test code = NT%) 75.7 % 43-75 H IMMATURE GRANULOCYTE % (test code = IG%) 0.3 % 0.0-2.0 N LYMPHOCYTE % (test code = LY%) 11.9 % 14-44 L MONOCYTE % (test code = MO%) 11.2 % 4-13 N EOSINOPHIL % (test code = EO%) 0.7 % 0-6 N BASOPHIL % (test code = BA%) 0.2 % 0-2 N NUCLEATED RBC % (test code = NRBC%) 0.0 % 0-1.0 N NEUTROPHIL # (test code = NT#) 8.79 K/mm3 2.0-7.6 H IMMATURE GRANULOCYTE # (test code = IG#) 0.04 x10 3/uL 0-0.03 H LYMPHOCYTE # (test code = LY#) 1.38 K/mm3 1.0-3.8 N MONOCYTE # (test code = MO#) 1.30 K/mm3 0.1-0.8 H EOSINOPHIL # (test code = EO#) 0.08 K/mm3 0.0-0.2 N BASOPHIL # (test code = BA#) 0.02 K/mm3 0.0-0.2 N NUCLEATED RBC # (test code = NRBC#) 0.00 K/mm3 0.0-0.1 N ARTERIAL BLOOD [id number] 12:23:00* Test Item Value Reference Range Interpretation Comme nts ARTERIAL BLOOD GAS PH (test code = PHA) 7.42 mmHg 7.35-7.45 N ARTERIAL BLOOD GAS PCO2 (test code = PCO2A) 45.2 mmHg 35.0-45.0 H ARTERIAL BLOOD GAS PO2 (test code = PO2A) 81.7 mmol/L 80.0-100.0 N BICARBONATE TOTAL HCO3 (test code = HCO3) 28.5 mmol/L 20.0-26.0 H BASE EXCESS (test code = RUKHSANA) 3.4 mmol/L -3.0-3.0 H ABG O2 SATURATION (test code = SATA) 96.1 % 95.0-100.0 N ABG DELIVERY (test code = DENISE) FACETENT Previously repor jus result: FT/NC Edited by: MOON on 10/01/18:[id number]: DELIVERY previously reported as: FT/NC ABG TEMPERATURE (test code = TEMPA) 37.0 C >37 ABG SITE (test code = SITEA) AL ALLENS TEST (test code = ALLENS) NA CHECK FIO2 (test code = COHBGFFIO2) 40 % ARTERY,[id number] 11:58:00 RUN DATE: 10/01/18 [facility] - [facility] PAGE 1 RUN TIME: 1158 Specimen Inquiry RUN USER: INTERFACE PATIENT : RACHEAL SABILLON LOC: ENA U #: [id number] AGE/SX: 72/F ROOM: [facility] RE09/30/18[facility] DR: Rohith Kc MD : 47 BED: A DIS: STATUS: ADM IN TLOC: SPEC #: [id number] RECD: 09/30/18 STATUS: TOMCorey REQ #: [id number] GUS: 09/30/[address] [facility] [address]: Rohith Kc MD ENTERED: 09/30/18 SP TYPE: ARTERY, PL OTHR DR: Jose Marc MD, Nioti R MD Pepper, Gregory S MDORDERED: DECAL, SURG PATH LVL 3, SURG PATH LVL 4 CODES: [id number] - PLAQUE, NOS [id number] - ARTERY, NOS [id number] - CAROTID ARTERY ATHEROSCLEROSIS [id number] - CERVIX EXCISIONAL BIOP [id number] - LYMPH NODE, NOS COPIESTO: Jose Marc MD [address] [place] [address] [address] [place] [address] [email or web address] [address] [place] [address] [place] [address] [facility] [address] [place] [address] [place] [address] [facility] [address] [place], [place] [id number] ICD CODES: 440 - PROCEDURES: DECAL (10/01/18) SURG PATH LVL 3 (09/30/18) SURG PATH LVL 4 (09/30/18) TISSUES: A. ARTERY, NOS - RT ARTERY PLAQUE B. LYMPH NODE, NOS -RT CERVICAL LYMPH NODE CONTINUED ON NEXT PAGE RUN DATE: 10/01/18 [facility] - [facility] PAGE 2 RUN TIME: 1158 Specimen Inquiry RUN USER: INTERFACE SPEC #: [id number] PATIENT: RACHEAL SABILLON #[id number] (Continued ) CLINICAL HISTORY RIGHT INTERNAL CAROTID ARTERY STENOSIS CPT CODES CPT CODE(S): 69149 , 09760 , 51719 , , , , FINAL DIAGNOSIS A. [...] 1158 END OF REPORT - XR CHEST [id number] 07:45:00Patient Name: RACHEAL SABILLON Unit No: [id number] EXAMS: CPT CODE: [id number] XR CHEST 1V [id number]: - XR CHEST 1V. LOCATION: B2. HISTORY: [...] [id number].[email or web address].[email or web address] Orig Print D/T: S: 10/01/2018 (0748) [facility] NAME: RACHEAL SABILLON [address] PHYS: [place] [address] : 1945 AGE: 72 SEX: F LOC: Z.SI07 A PHONE #: [phone] EXAM DATE: 10/01/2018 STATUS: ADM IN FAX #: [phone] RADIOLOGY NO: PAGE 1 Signed ReportBASIC METABOLIC [id number] 05:58:00* Test Item Value Reference Range Interpretation Comme nts SODIUM (test code = NA) 136 MMOL/L 137-145 L POTASSIUM (test code = K) 3.9 MMOL/L 3.5-5.1 N CHLORIDE (test code = CL) 96 MMOL/L 98-107 L CARBON DIOXIDE (test code = CO2) 32 MMOL/L 22-30 H GLUCOSE (test code = GLU) 132 MG/DL 74-106 H BLOOD UREA NITROGEN (test code = BUN) 7 MG/DL 7-17 N GLOMERULAR FILTRATION RATE (test code = GFR) > 60 Reporting units: ml/min/1.73 m2 (Modified MDRD Formula)Reference Range: > or = 60 ml/min/1.73 m2 CREATININE (test code = CREAT) 0.60 MG/DL 0.52-1.04 N CALCIUM (test code = CA) 8.7 MG/DL 8.4-10.2 N [id number] 05:58:00* Test Item Value Reference Range Interpretation Comme nts MAGNESIUM (test code = MAG) 1.7 MG/DL 1.6-2.3 N CBC W/AUTO [id number] 05:30:00* Test Item Value Reference Range Interpretation Comme nts WHITE BLOOD CELL (test code = WBC) 10.7 K/MM3 3.8-9.8 H RED BLOOD CELL (test code = RBC) 3.70 M/MM3 3.58-4.97 N HEMOGLOBIN (test code = HGB) 12.0 G/DL 11.2-14.9 N HEMATOCRIT (test code = HCT) 36.0 % 33.2-43.5 N MEAN CELL VOLUME (test code = MCV) 97 fL 80.7-99.1 N MEAN CELL HGB (test code = MCH) 32.4 pg 27.0-34.1 N MEAN CELL HGB CONCETRATION (test code = MCHC) 33.3 % 32.2-35.7 N RED CELL DISTRIBUTION WIDTH (test code = RDW) 15.2 % 12.1-15.2 N PLATELET COUNT (test code = PLT) 298 K/MM3 129-368 N MEAN PLATELET VOLUME (test c ode = MPV) 8.8 fl 7.4-10.4 N NEUTROPHIL % (test code = NT%) 82.2 % 43-75 H IMMATURE GRANULOCYTE % (test code = IG%) 0.4 % 0.0-2.0 N LYMPHOCYTE % (test code = LY%) 8.7 % 14-44 L MONOCYTE % (test code = MO%) 8.4 % 4-13 N EOSINOPHIL % (test code = EO%) 0.1 % 0-6 N BASOPHIL % (test code = BA%) 0.2 % 0-2 N NUCLEATED RBC % (test code = NRBC%) 0.0 % 0-1.0 N NEUTROPHIL # (test code = NT#) 8.82 K/mm3 2.0-7.6 H IMMATURE GRANULOCYTE # (test code = IG#) 0.04 x10 3/uL 0-0.03 H LYMPHOCYTE # (test code = LY#) 0.93 K/mm3 1.0-3.8 L MONOCYTE # (test code = MO#) 0.90 K/mm3 0.1-0.8 H EOSINOPHIL # (test code = EO#) 0.01 K/mm3 0.0-0.2 N BASOPHIL # (test code = BA#) 0.02 K/mm3 0.0-0.2 N NUCLEATED RBC # (test code = NRBC#) 0.00 K/mm3 0.0-0.1 N [id number] 22:38:00* Test Item Value Reference Range Interpretation Comme nts POTASSIUM (test code = K) 3.3 MMOL/L 3.5-5.1 L [id number] 22:38:00* Test Item Value Reference Range Interpretation Comme nts MAGNESIUM (test code = MAG) 1.7 MG/DL 1.6-2.3 ARTERIAL BLOOD [id number] 17:57:00* Test Item Value Reference Range Interpretation Comme nts ARTERIAL BLOOD GAS PH (test code = PHA) 7.42 mmHg 7.35-7.45 N ARTERIAL BLOOD GAS PCO2 (nathaly t code = PCO2A) 45.2 mmHg 35.0-45.0 H ARTERIAL BLOOD GAS PO2 (test code = PO2A) 81.7 mmol/L 80.0-100.0 N BICARBONATE TOTAL HCO3 (test code = HCO3) 28.5 mmol/L 20.0-26.0 H BASE EXCESS (test code = RUKHSANA) 3.4 mmol/L -3.0-3.0 H ABG O2 SATURATION (test code = SATA) 96.1 % 95.0-100.0 N ABG DELIVERY (test code = DENISE) FT/NC ABG TEMPERATURE (test code = TEMPA) 37.0 C >37 ABG SITE (test code = SITEA) AL ALLENS TEST (test code = ALLENS) NA CHECK FIO2 (test code = COHBGFFIO2) 40 % BASIC METABOLIC [id number] 16:18:00* Test Item Value Reference Range Interpretation Comme nts SODIUM (test code = NA) 138 MMOL/L 137-145 N POTASSIUM (test code = K) 3.1 MMOL/L 3.5-5.1 L CHLORIDE (test code = CL) 100 MMOL/L 98-107 N CARBON DIOXIDE (test code = CO2) 31 MMOL/L 22-30 H GLUCOSE (test code = GLU) 119 MG/DL 74-106 H BLOOD UREA NITROGEN (test code = BUN) 10 MG/DL 7-17 N GLOMERULAR FILTRATION RATE (test code = GFR) > 60 Reporting units: ml/min/1.73 m2 (Modified MDRD Formula)Reference Range: > or = 60 ml/min/1.73 m2 CREATININE (test code = CREAT) 0.60 MG/DL 0.52-1.04 N CALCIUM (test code = CA) 8.9 MG/DL 8.4-10.2 N [id number] 16:18:00* Test Item Value Reference Range Interpretation Comme nts MAGNESIUM (test code = MAG) 1.3 MG/DL 1.6-2.3 L CBC W/AUTO [id number] 16:06:00* Test Item Value Reference Range Interpretation Comme nts WHITE BLOOD CELL (test code = WBC) 10.8 K/MM3 3.8-9.8 H RED BLOOD CELL (test code = RBC) 3.64 M/MM3 3.58-4.97 N HEMOGLOBIN (test code = HGB) 11.8 G/DL 11.2-14.9 N HEMATOCRIT (test code = HCT) 35.3 % 33.2-43.5 N MEAN CELL VOLUME (test code = MCV) 97 fL 80.7-99.1 N MEAN CELL HGB (test code = MCH) 32.4 pg 27.0-34.1 N MEAN CELL HGB CONCETRATION (test code = MCHC) 33.4 % 32.2-35.7 N RED CELL DISTRIBUTION WIDTH (test code = RDW) 14.9 % 12.1-15.2 N PLATELET COUNT (test code = PLT) 281 K/MM3 129-368 N MEAN PLATELET VOLUME (test c ode = MPV) 8.9 fl 7.4-10.4 N NEUTROPHIL % (test code = NT%) 55.0 % 43-75 N IMMATURE GRANULOCYTE % (test code = IG%) 0.6 % 0.0-2.0 N LYMPHOCYTE % (test code = LY%) 30.3 % 14-44 N MONOCYTE % (test code = MO%) 10.8 % 4-13 N EOSINOPHIL % (test code = EO%) 3.0 % 0-6 N BASOPHIL % (test code = BA%) 0.3 % 0-2 N NUCLEATED RBC % (test code = NRBC%) 0.0 % 0-1.0 N NEUTROPHIL # (test code = NT#) 5.97 K/mm3 2.0-7.6 N IMMATURE GRANULOCYTE # (test code = IG#) 0.07 x10 3/uL 0-0.03 H LYMPHOCYTE # (test code = LY#) 3.28 K/mm3 1.0-3.8 N MONOCYTE # (test code = MO#) 1.17 K/mm3 0.1-0.8 H EOSINOPHIL # (test code = EO#) 0.32 K/mm3 0.0-0.2 H BASOPHIL # (test code = BA#) 0.03 K/mm3 0.0-0.2 N NUCLEATED RBC # (test code = NRBC#) 0.00 K/mm3 0.0-0.1 N - XR CHEST [id number] 15:29:00Patient Name: RACHEAL SABILLON Unit No: [id number] EXAMS: CPT CODE: [id number] XR CHEST 1V [id number]: CHEST ONE VIEW INDICATION: Postop LOCATION: B2 COMPARISON: September 29, 2018 TECHNIQUE: AP view of the chest FINDINGS: Left-sided central venous catheter overlies the SVC. The heart size is normal.There are mild congestive changes bilaterally. No pneumothorax or pleural effusion is identified. The osseous structures are normal. IMPRESSION: Mild congestive changes bilaterally. No pneumothorax. at 1529 Reported and signed by: Ryann Zuniga MD CC: Jose Marc MD; Brisa GARCIA Technologist: Alhaji Cha, RT(R) Transcrpt Date/Tm/Trnsp: 09/30/2018 (1529) 16 Orig Print D/T: S: 09/30/2018 (1532) [facility] NAME:RACHEAL SABILLON [id number] PHYS: [place] [address] : 1945 AGE: 72 SEX: F LOC: Z.SI07 A PHONE #: [phone] EXAM DATE: 09/30/2018 STATUS: ADM IN FAX #: [phone] RADIOLOGY NO: PAGE 1 Signed ReportHIV 12 AB [id number] 19:14:00* Test Item Value Reference Range Interpretation Comme nts AB HIV 1 2 (test code = CPQ61RT) NON REACTIVE NON-REAC NOTE: A NONREACT LINETTE RESULT INDICATES THAT HIV-1 AND HIV-2ANTIBODIES HAVE NOT BEEN FOUND IN THIS PATIENT SPECIMEN. ANON-REACTIVE RESULT, HOWEVER, DOES NOT PRECLUDE PREVIOUSEXPOSURE OR INFECTION WITH HIV1. AG HIV1 P24 (test code = BTP6Y08) NON REACTIVE NONE REAC PROTHROMBIN [id number] 14:22:00* Test Item Value Reference Range Interpretation Comme [facility] PROTHROMBIN TIME PATIENT (test code = PTP) 10.4 SECONDS 9.6-11.6 N INTERNATIONAL NORMAL RATIO (test code = INR) 1.0 0.8-1.1 N The INR is to be used only for monitoring oral anticoagulanttherap y. INDICATION INR VALUE -------1. Prophylaxis, deep venous thrombosis, including high risk surgery. 2.0 - 3.0 2. Prophylaxis, deep venous thrombosis, hip surgery, treatment for deep venous thrombosis or pulmonary prevention of systemic embolism in patients with valvular heart disease, atrial fibrillation, tissue heart valve, or acute myocardial infarction. 2.0 - 3.0 3. Mechanical prosthesis heart valves, recurrent systemic embolism. 3.0 - 4.5 PTT [id number] 14:22:00* Test Item Value Reference Range Interpretation Comme [facility] PTT ACTIVATED (test code = APTT) 29.3 SECONDS 22.0-33.0 N BASIC METABOLIC [id number] 14:18:00* Test Item Value Reference Range Interpretation Comme nts SODIUM (test code = NA) 140 MMOL/L 137-145 N POTASSIUM (test code = K) 4.0 MMOL/L 3.5-5.1 N CHLORIDE (test code = CL) 96 MMOL/L 98-107 L CARBON DIOXIDE (test code = CO2) 33 MMOL/L 22-30 H GLUCOSE (test code = GLU) 124 MG/DL 74-106 H BLOOD UREA NITROGEN (test code = BUN) 13 MG/DL 7-17 N GLOMERULAR FILTRATION RATE (test code = GFR) > 60 Reporting units: ml/min/1.73 m2 (Modified MDRD Formula)Reference Range: > or = 60 ml/min/1.73 m2 CREATININE (test code = CREAT) 0.80 MG/DL 0.52-1.04 N CALCIUM (test code = CA) 9.9 MG/DL 8.4-10.2 N - XR CHEST 2 [id number] 14:14:00Patient Name: RACHEAL SABILLON Unit No: [id number] EXAMS: CPT CODE: [id number] XR CHEST 2 V [id number] EXAM: CHEST 2 VIEWS INDICATION: PRE-OP LOCATION: B2 COMPARISON: None available TECHNIQUE: PA and la teral views of the chest. FINDINGS: The heart size is normal. The lungs are clear bilaterally. The pulmonary vasculature is normal. No pneumothorax or pleural effusion is identified. The osseous structures are normal. IMPRESSION: No acute cardiopulmonary process. at 1414 Reported and signed by: Ryann Zuniga MD CC: Jose Marc MD Technologist: Gay Wolfe, RT(R) Transcrpt Date/Tm/Trnsp: 09/29/2018 (1414) 16 Orig Print D/T: S: 09/29/2018 (2939) [facility] NAME: RACHEAL SABILLON [id number] PHYS: [place] [address] : 1945 AGE: 72 SEX: F LOC: Z.3AHU PHONE #: [phone] EXAM DATE: 09/29/2018 STATUS: PRE IN FAX #: [phone] RADIOLOGY NO: PAGE 1 Signed ReportCBC W/AUTO [id number] 13:57:00* Test Item Value Reference Range Interpretation Comme nts WHITE BLOOD CELL (test code = WBC) 7.4 K/MM3 3.8-9.8 N RED BLOOD CELL (test code = RBC) 3.85 M/MM3 3.58-4.97 N HEMOGLOBIN (test code = HGB) 12.4 G/DL 11.2-14.9 N HEMATOCRIT (test code = HCT) 37.8 % 33.2-43.5 N MEAN CELL VOLUME (test code = MCV) 98 fL 80.7-99.1 N MEAN CELL HGB (test code = MCH) 32.2 pg 27.0-34.1 N MEAN CELL HGB CONCETRATION (test code = MCHC) 32.8 % 32.2-35.7 N RED CELL DISTRIBUTION WIDTH (test code = RDW) 14.9 % 12.1-15.2 N PLATELET COUNT (test code = PLT) 294 K/MM3 129-368 N MEAN PLATELET VOLUME (test c ode = MPV) 8.9 fl 7.4-10.4 N NEUTROPHIL % (test code = NT%) 59.2 % 43-75 N IMMATURE GRANULOCYTE % (test code = IG%) 0.3 % 0.0-2.0 N LYMPHOCYTE % (test code = LY%) 27.3 % 14-44 N MONOCYTE % (test code = MO%) 11.6 % 4-13 N EOSINOPHIL % (test code = EO%) 1.3 % 0-6 N BASOPHIL % (test code = BA%) 0.3 % 0-2 N NUCLEATED RBC % (test code = NRBC%) 0.0 % 0-1.0 N NEUTROPHIL # (test code = NT#) 4.41 K/mm3 2.0-7.6 N IMMATURE GRANULOCYTE # (test code = IG#) 0.02 x10 3/uL 0-0.03 N LYMPHOCYTE # (test code = LY#) 2.03 K/mm3 1.0-3.8 N MONOCYTE # (test code = MO#) 0.86 K/mm3 0.1-0.8 H EOSINOPHIL # (test code = EO#) 0.10 K/mm3 0.0-0.2 N BASOPHIL # (test code = BA#) 0.02 K/mm3 0.0-0.2 N NUCLEATED RBC # (test code = NRBC#) 0.00 K/mm3 0.0-0.1 N BASIC METABOLIC [id number] 06:04:00* Test Item Value Reference Range Interpretation Comme nts SODIUM (test code = NA) 140 MMOL/L 137-145 N POTASSIUM (test code = K) 4.4 MMOL/L 3.5-5.1 N CHLORIDE (test code = CL) 99 MMOL/L 98-107 N CARBON DIOXIDE (test code = CO2) 32 MMOL/L 22-30 H GLUCOSE (test code = GLU) 93 MG/DL 74-106 N BLOOD UREA NITROGEN (test code = BUN) 21 MG/DL 7-17 H GLOMERULAR FILTRATION RATE (test code = GFR) > 60 Reporting units: ml/min/1.73 m2 (Modified MDRD Formula)Reference Range: > or = 60 ml/min/1.73 m2 CREATININE (test code = CREAT) 0.90 MG/DL 0.52-1.04 N CALCIUM (test code = CA) 9.7 MG/DL 8.4-10.2 N LIPID PROFILE (CORONARY RISK)2018-09-20 06:04:00* Test Item Value Reference Range Interpretation Comme nts TRIGLYCERIDES (test code = TRIG) 99 MG/DL TRIGLYCERIDES REFERENCE RANGE:Normal: <150 mg/dLBorderline High: 150-199 mg/dLHigh: 200-499 mg/dLVery High: >=500 mg/dL CHOLESTEROL (test code = CHOL) 135 MG/DL <200 HDL CHOLESTEROL (test code = HDL) 50 MG/DL 40-59 N LIPOPROTEIN LDL (test code = LDL) 65 MG/DL 0-99 N OPTIMAL......... <100 mg/dLNEAR OPTIMAL/ABOVE OPTIMAL.........100-12 9 mg/dL BORDERLINE HIGH.........130-159 mg/dL HIGH.........160-189 mg/dL VERY HIGH.........>/= 190 mg/dL [id number] 06:04:00* Test Item Value Reference Range Interpretation Comme nts MAGNESIUM (test code = MAG) 1.9 MG/DL 1.6-2.3 N PROTHROMBIN [id number] 06:00:00* Test Item Value Reference Range Interpretation Comme nts PROTHROMBIN TIME PATIENT (test code = PTP) 10.3 SECONDS 9.6-11.6 N INTERNATIONAL NORMAL RATIO (test code = INR) 1.0 0.8-1.1 N The INR is to be used only for monitoring oral anticoagulanttherap y. INDICATION INR VALUE -------1. Prophylaxis, deep venous thrombosis, including high risk surgery. 2.0 - 3.0 2. Prophylaxis, deep venous thrombosis, hip surgery, treatment for deep venous thrombosis or pulmonary prevention of systemic embolism in patients with valvular heart disease, atrial fibrillation, tissue heart valve, or acute myocardial infarction. 2.0 - 3.0 3. Mechanical prosthesis heart valves, recurrent systemic embolism. 3.0 - 4.5 Comments to Land Degradation Analyst: WILL BRING TO LABPTT [id number] 06:00:00* Test Item Value Reference Range Interpretation Comme nts PTT ACTIVATED (test code = APTT) 29.3 SECONDS 22.0-33.0 N Comments to Land Degradation Analyst: WILL BRING TO LABBASIC METABOLIC [id number] 05:54:00* Test Item Value Reference Range Interpretation Comme nts SODIUM (test code = NA) 140 MMOL/L 137-145 N POTASSIUM (test code = K) 4.4 MMOL/L 3.5-5.1 N CHLORIDE (test code = CL) 99 MMOL/L 98-107 N CARBON DIOXIDE (test code = CO2) 32 MMOL/L 22-30 H GLUCOSE (test code = GLU) 93 MG/DL 74-106 N BLOOD UREA NITROGEN (test code = BUN) 21 MG/DL 7-17 H GLOMERULAR FILTRATION RATE (test code = GFR) > 60 Reporting units: ml/min/1.73 m2 (Modified MDRD Formula)Reference Range: > or = 60 ml/min/1.73 m2 CREATININE (test code = CREAT) 0.90 MG/DL 0.52-1.04 N CALCIUM (test code = CA) 9.7 MG/DL 8.4-10.2 N LIPID PROFILE (CORONARY RISK)2018-09-20 05:54:00* Test Item Value Reference Range Interpretation Comme nts TRIGLYCERIDES (test code = TRIG) 99 MG/DL TRIGLYCERIDES REFERENCE RANGE:Normal: <150 mg/dLBorderline High: 150-199 mg/dLHigh: 200-499 mg/dLVery High: >=500 mg/dL CHOLESTEROL (test code = CHOL) 135 MG/DL <200 HDL CHOLESTEROL (test code = HDL) 50 MG/DL 40-59 N LIPOPROTEIN LDL (test code = LDL) MG/DL 0-99 [id number] 05:54:00* Test Item Value Reference Range Interpretation Comme nts MAGNESIUM (test code = MAG) 1.9 MG/DL 1.6-2.3 N CBC W/AUTO [id number] 05:41:00* Test Item Value Reference Range Interpretation Comme nts WHITE BLOOD CELL (test code = WBC) 6.4 K/MM3 3.8-9.8 N RED BLOOD CELL (test code = RBC) 3.97 M/MM3 3.58-4.97 N HEMOGLOBIN (test code = HGB) 12.7 G/DL 11.2-14.9 N HEMATOCRIT (test code = HCT) 39.5 % 33.2-43.5 N MEAN CELL VOLUME (test code = MCV) 100 fL 80.7-99.1 H MEAN CELL HGB (test code = MCH) 32.0 pg 27.0-34.1 N MEAN CELL HGB CONCETRATION (test code = MCHC) 32.2 % 32.2-35.7 N RED CELL DISTRIBUTION WIDTH (test code = RDW) 15.7 % 12.1-15.2 H PLATELET COUNT (test code = PLT) 279 K/MM3 129-368 N MEAN PLATELET VOLUME (test c ode = MPV) 8.9 fl 7.4-10.4 N NEUTROPHIL % (test code = NT%) 51.5 % 43-75 N IMMATURE GRANULOCYTE % (test code = IG%) 0.3 % 0.0-2.0 N LYMPHOCYTE % (test code = LY%) 30.9 % 14-44 N MONOCYTE % (test code = MO%) 13.3 % 4-13 H EOSINOPHIL % (test code = EO%) 3.7 % 0-6 N BASOPHIL % (test code = BA%) 0.3 % 0-2 N NUCLEATED RBC % (test code = NRBC%) 0.0 % 0-1.0 N NEUTROPHIL # (test code = NT#) 3.30 K/mm3 2.0-7.6 N IMMATURE GRANULOCYTE # (test code = IG#) 0.02 x10 3/uL 0-0.03 N LYMPHOCYTE # (test code = LY#) 1.98 K/mm3 1.0-3.8 N MONOCYTE # (test code = MO#) 0.85 K/mm3 0.1-0.8 H EOSINOPHIL # (test code = EO#) 0.24 K/mm3 0.0-0.2 H BASOPHIL # (test code = BA#) 0.02 K/mm3 0.0-0.2 N NUCLEATED RBC # (test code = NRBC#) 0.00 K/mm3 0.0-0.1 N Notes Date/Time Note Provider Source 2019-06-17 23:33:00 [id number]+tkO rYv+jvXLVaqIvIqtn 08FfIsCQgb42KINFyvMOs1hfEn5738-74-09C75:33:[id number] [place] [address] PATIENT NAME: RACHEAL SABILLON ADMIT DATE: 05/05/19ACCOUNT NO: [id number] ROOM NO: Z.SI04 AGE: 73 REPORT TYPE: DISCHARGE SUMMARY REPORT SEX: F ADMITTING PHYSICIAN:Rohith Kc MD ATTENDING PHYSICIAN:Rohith Kc MD ADMISSION DATE: 05/05/2019DISCHARGE DATE: 05/07/2019 DISCHARGE DIAGNOSES: Left internal carotid artery stenosis, status post leftcarotid endarterectomy, hypertension, hypercholesterolemia, coronary arterydisease, history of right carotid endarterectomy. HOSPITAL COURSE: The patient is a 73-year-old female well known to our serviceswith a history of carotid stenosis who is status post right carotidendarterectomy on 09/30/2018. The patient is doing relatively well and was alsonoted to have a 70% left ICA stenosis on the carotid angiogram. The patient wassubsequently admitted on 05/05/2019 and taken to the operating room where sheunderwent a left carotid endarterectomy with Hemashield patch arterioplasty. The patient tolerated the procedure well and was transferred to ICU in a stablecondition. In the ICU, she maintained normal sinus rhythm, stable bloodpressure. neurological status remained intact. BLAKE drain was removed onpostoperative day #1 and the patient was ambulating independently and withassistance of physical therapy. She was discharged home on 05/07/2019 in astable condition. She was instructed to continue taking her medications asprescribed and to follow up with Dr. Kc in 1 to 2 weeks, also to follow upwith her merchandise deliverer, Dr. Marc. Dictated By: RADHA Morton for Rohith Kc MD WT: DS:GERARDO/KIM/NTSDD: 06/17/2019 23:33:37DT: 06/18/2019 05:19:14Conf#: [id number]/DID#: [id number] Authenticated by RADHA Morton On 06/18/2019 11:10:13 AM Authenticated by Rohith Kc MD On 06/18/2019 11:11:39 AM at 1111 at 1111 PATIENT NAME: RACHEAL SABILLON [id number]:19:00Z.[id number] for patient gjkmZXVJQRMTDRFMYS6564-05-22W40:12:12 [facility] 2019-05-08 17:29:00 [id number]+dwP9kPRAT+xWPIu 7cMJNiBhfzC3ZHOjj QlIcoGCAM8Bm5sh/gkchMxsIwX8636-27-19B19:29:00 [facility] ([facility]Hospitalist Progress NoteREPORT#:[id number] REPORT STATUS: SignedDATE:05/08/19 TIME: 1728 PATIENT: RACHEAL SABILLON UNIT #: [id number]#: [id number] [address] AGE: 73 SEX: F ATTEND: Rohith Kc AUTHOR: David Irving MD * ALL edits or amendments must be made on the electronic/computer document * SubjectiveChief Complaint:Pt is post Left CEA Review of SystemsConstitutional:Denies: fatigue, fever, generalized weakness. Allergy/Immun:Denies: hives, itching. Eyes:Denies: itching, diplopia. ENT:Reports: sore throat. Denies: nose bleeding, sinus problem. Cardiovascular:Denies: orthopnea, palpitations. GI:Denies: diarrhea, dysphagia. Musculoskeletal:Denies: joint pain, lumbar pain. Neuro:Denies: gait problem, headache. Psych:Reports: confusion. Objective GeneralVS/I O:24 hour I O ending at 0700: 05/08 0700 05/07 1900 Intake Total Output Total Balance Number Voids 1 Patient Weight Weight (lb): 134Weight (oz): 2.91Weight (kg): 60.781 Medications:Documentation of Current Medications in the Medical Record :I attest that the foregoing medication list in the medical record is true, accurate, and complete to the best of my knowledge. Physical ExamGeneral appearance: alert, awake, orientedHead/Eyes: atraumatic, clear corneaENT: moist mucosal membranesNeck: carotid bruit (incision site is ok)Cardiovascular: regular rate rhythmRespiratory: aerating well, clear to auscultationAbdomen: non-tender, normal bowel soundsExtremities: moves all, no clubbingNeuro/HAZARDOUS MATERIALS TANKER DRIVER: alert, no motor deficits Diagnosis, Assessment Plan Free Text DxA P NotesFree Text DxA P Notes:ASSESSMENT:1. Left carotid endarterectomy.2. History of coronary artery disease.3. History of previous carotid disease.4. Hypothyroidism.5. Hyperlipidemia.6. Hypertension. PLAN: The patient is doing well, still on Cardene drip. Medications resumed byCV service. The patient is alert and oriented. Continue present care. RestartPlavix, atorvastatin, isosorbide, losartan, hydrochlorothiazide, metoprolol,aspirin for now, and levothyroxine is at 100 mcg daily. Thank you, Dr. Kc, for allowing us to participate in the care of this patient. 05/06pt was a little confused early this amNo chest pain05/07pt is doing well. he BP was elevatedProcardia was not startedPt is eager to go home FU Dr marc for BP controlDW family at 1731 RPT #:[id number] OF REPORTPRProgress Meey0532-08-84D93:29:00Z.[id number] for patient lteuJOUGGOCQRZDGTJ7019-50-73R54:31:50 [facility] 2019-05-07 06:42:00 [id number] L1Mi2CKNF1kN/2k0L hoBPigaDViHqhAWwk3dPEc+qLy6085-85-10J22:42:00 [facility] TexasCardiology Progress NoteREPORT#:[id number] REPORT STATUS: SignedDATE:05/07/19 TIME: 0642 PATIENT: RACHEAL SABILLON UNIT #: [id number]#: [id number] [address] AGE: 73 SEX: F ATTEND: Rohith Kc [facility] AUTHOR: Supa Kelly MD * ALL edits or amendments must be made on the electronic/computer document * SubjectiveChief Complaint:Carotid disease.Patient reports:No: chest pain, palpitations, shortness of breath. Objective GeneralVS/I O:24 hour I O ending at 0700: 05/07 0700 05/06 1900 Intake Total 300.00 730.00 Output Total 1090 Balance 300.00 -360.00 Intake, IV 200.00 280.00 Intake, Oral 100 450 Number Voids 3 1 Output, Urine 1090 Patient 60.781 kg Weight Vital Signs: Date Time Temp Pulse Resp B/P B/P Pulse O2 O2 Flow FiO2 Mean Ox Delivery Rate 05/07 0615 69 16 106/69 83 92 05/07 0600 74 16 125/77 96 91 05/07 0545 80 15 122/79 94 91 05/07 0530 72 16 127/76 95 91 05/07 0515 73 17 131/75 99 91 05/07 0500 73 16 129/74 95 91 05/07 0445 71 15 118/73 90 92 05/07 0430 71 15 114/76 90 93 05/07 0415 74 16 127/74 95 93 05/07 0400 75 20 131/75 98 95 05/07 0315 74 16 152/97 119 94 05/07 0300 73 16 147/92 113 95 05/07 0245 73 16 139/91 111 94 05/07 0230 89 16 156/88 113 94 05/07 0215 72 15 118/71 90 95 05/07 0200 74 17 134/83 104 93 05/07 0145 75 16 127/81 99 95 05/07 0130 84 21 142/81 105 96 05/07 0115 85 23 119/72 89 91 05/07 0100 73 16 112/72 88 92 05/07 0045 72 16 108/68 83 92 05/07 0030 74 16 117/72 90 93 05/07 0000 98.2 05/07 0000 85 17 127/77 97 95 05/06 2330 97 31 139/84 102 98 05/06 2300 86 19 125/74 90 95 05/06 2230 84 19 129/79 99 99 05/06 2210 98.0 05/06 2200 88 17 145/83 109 92 05/06 2100 84 20 136/82 104 98 05/06 2030 88 22 160/74 107 97 05/06 2000 81 20 148/84 111 05/06 1940 98 Room air 05/06 1930 98 40 175/96 127 73 [...] 1357 71 25 154/89 116 100 05/06 1330 70 20 172/86 123 99 05/06 1246 80 31 169/99 129 100 05/06 1230 76 19 05/06 1130 70 28 151/81 111 05/06 1100 71 18 172/85 121 100 05/06 1055 97.6 05/06 1054 73 98 05/06 1030 76 150/90 114 100 05/06 1017 79 152/78 107 99 05/06 1000 77 100 05/06 0930 86 100 05/06 0900 86 100 05/06 0830 81 23 100 05/06 0800 82 14 100 05/06 0749 Nasal 2.839349 cannula 05/06 0745 83 19 100 05/06 0724 99 Nasal 2.529551 28 cannula 05/06 0700 97.9 05/06 0700 87 18 100 Patient Weight Weight (lb): 134Weight (oz): 2.91Weight (kg): 60.781 Medications:Active Meds + DC'd Last 24 HrsNifedipine 30 MG DAILY PO Atorvastatin Calcium 40 MG BEDTIME PO Hydralazine HCl 10 MG Q6H PRN PRN IV Hydrochlorothiazide 12.5 MG DAILY PO Losartan Potassium 100 MG DAILY PO Potassium Chloride 50 ML Q1H IV (DC) Magnesium Sulfate/Dextrose 100 ML ONCE ONE IV (DC) Aspirin 81 MG DAILY PO Clopidogrel Bisulfate 75 MG DAILY PO Metoprolol Succinate 100 MG DAILY PO Pantoprazole 40 MG DAILY PO Levothyroxine Sodium 100 MCG DAILY@0630 PO Famotidine 20 MG Q12HR IV (DC) Mupirocin 1 APPLIC BID NASAL Potassium Chloride/Dextrose/Sod Cl 1,000 ML Q12H IV Acetaminophen 650 MG Q4H PRN PRN PO Benzocaine/Menthol 1 EACH Q2H PRN PRN MM (CKD) Bisacodyl 10 MG ASDIR PRN RECTAL Calcium Gluconate 1,000 MG ASDIR PRN IV Sodium Chloride 100 MLHydrocodone Bitart/Acetaminophen 1 TAB Q4H PRN PRN PO Hydrocodone Bitart/Acetaminophen 2 TAB Q4H PRN PRN PO Nicardipine HCl 25 MG ASDIR PRN IV Sodium Chloride 250 MLOndansetron HCl 4 MG Q8H PRN PRN IV Phenol 5 SPRAY Q2H PRN PRN MM Potassium Chloride 10 MEQ ASDIR PRN PO Lactated Ringer's 1,000 ML ONCE ONE IV (DC) Physical ExamGeneral appearance: alert, awake, orientedHead/Eyes: atraumatic, normocephalicENT: moist mucosal membranesNeck: no JVDCardiovascular: CV assessment: regular rate and rhythmRespiratory: clear to auscultation, no distressLower extremity: LE assessment: no edemaMusculoskeletal: full range of motionNeuro/HAZARDOUS MATERIALS TANKER DRIVER: alert, oriented X 3, CN II-XII intactSkin: dry, intactWound/incision: Site condition: dressing clean dryPsychiatry: normal affect, normal judgment/insight, normal mood ResultsFindings/Data:Laboratory Tests 05/07 399 Chemistry Sodium (137 - 145 MMOL/L) 135 L Potassium (3.5 - 5.1 MMOL/L) 3.6 Chloride (98 - 107 MMOL/L) 93 L Carbon Dioxide (22 - 30 MMOL/L) 33 H BUN (7 - 17 MG/DL) 11 Creatinine (0.52 - 1.04 MG/DL) 0.60 Glomerular Filtr Rate > 60 Glucose (74 - 106 MG/DL) 93 Calcium (8.4 - 10.2 MG/DL) 9.6 Laboratory Tests 05/07 399 Hematology WBC (3.8 - 9.8 K/MM3) 11.8 H RBC (3.58 - 4.97 M/MM3) 3.36 L Hgb (11.2 - 14.9 G/DL) 11.0 L Hct (33.2 - 43.5 %) 32.2 L MCV (80.7 - 99.1 fL) 96 MCH (27.0 - 34.1 pg) 32.7 MCHC (32.2 - 35.7 %) 34.2 RDW (12.1 - 15.2 %) 15.6 H Plt Count (129 - 368 K/MM3) 276 MPV (7.4 - 10.4 fl) 9.3 Neut % (Auto) (43 - 75 %) 73.7 Lymph % (Auto) (14 - 44 %) 13.3 L [place] % (Auto) (4 - 13 %) 12.3 Eos % (Auto) (0 - 6 %) 0.2 Baso % (Auto) (0 - 2 %) 0.1 Neut # (Auto) (2.0 - 7.6 K/mm3) 8.72 H Lymph # (Auto) (1.0 - 3.8 K/mm3) 1.57 [place] # (Auto) (0.1 - 0.8 K/mm3) 1.45 H Eos # (Auto) (0.0 - 0.2 K/mm3) 0.02 Baso # (Auto) (0.0 - 0.2 K/mm3) 0.01 Immature Gran % (0.0 - 2.0 %) 0.4 Nucleated RBC % (0 - 1.0 %) 0.0 Nucleated RBCs # (Man) (0.0 - 0.1 K/mm3) 0.00 Diagnosis, Assessment Plan Free Text DxA P NotesFree Text DxA P Notes:IMP: Carotid disease s/p left CEA HTN CAD HLP PLAN: Continue current medical rx - cardiac stable. Ambualte IS at 1913 RPT #:[id number] OF REPORTPRProgress Nvso8651-66-20U90:42:00Z.[id number] for patient bgypYTVAYSVOZRPJTP6707-23-49J96:13:48 [facility] 2019-05-06 19:18:00 [id number] 2RC1F/OzjqfL1kdvB KvF3Qmwk3TC2y4jj/GkoVhsZrK9854-34-00S48:18:00 [facility] TexasHospitalist Progress NoteREPORT#:[id number] REPORT STATUS: SignedDATE:05/06/19 TIME: 1917 PATIENT: RACHEAL SABILLON UNIT #: [id number]#: [id number] [address]BZ: 46 AGE: 73 SEX: F ATTEND: Rohith Kc AUTHOR: David Irving MD * ALL edits or amendments must be made on the electronic/computer document * SubjectiveChief Complaint:Pt is ost Left CEA Review of SystemsConstitutional:Denies: fatigue, fever, generalized weakness. Allergy/Immun:Denies: hives, itching. Eyes:Denies: itching, diplopia. ENT:Reports: sore throat. Denies: nose bleeding, sinus problem. Cardiovascular:Denies: orthopnea, palpitations. GI:Denies: diarrhea, dysphagia. Musculoskeletal:Denies: joint pain, lumbar pain. Neuro:Denies: gait problem, headache. Psych:Reports: confusion. Objective GeneralVS/I O:Vital Signs: Date Time Temp [...] 1357 71 25 154/89 116 100 05/06 1330 70 20 172/86 123 99 05/06 1246 80 31 169/99 129 100 05/06 1230 76 19 05/06 1130 70 28 151/81 111 05/06 1100 71 18 172/85 121 100 05/06 1055 97.6 05/06 1054 73 98 05/06 1030 76 150/90 114 100 05/06 1017 79 152/78 107 99 05/06 1000 77 100 05/06 0930 86 100 05/06 0900 86 100 05/06 0830 81 23 100 05/06 0800 82 14 100 05/06 0749 Nasal 2.084896 cannula 05/06 0745 83 19 100 05/06 0724 99 Nasal 2.709604 28 cannula 05/06 0700 97.9 05/06 0700 87 18 100 05/06 0630 81 22 100 05/06 0615 82 31 81 05/06 0600 82 18 100 05/06 0545 91 23 100 05/06 0530 95 31 94 05/06 0515 98 22 100 05/06 0500 129 53 97 05/06 0445 107 46 98 05/06 0430 90 25 100 05/06 0415 96 25 96 05/06 0400 97.7 05/06 0400 96 37 90 05/06 0345 88 23 100 05/06 0330 85 29 100 05/06 0315 93 28 98 05/06 0258 122 44 05/06 0245 89 15 100 05/06 0230 92 31 100 05/06 0215 84 17 100 05/06 0200 85 8 100 05/06 0145 86 20 100 05/06 0130 92 18 100 05/06 0115 92 16 100 05/06 0100 96 15 100 05/06 0045 82 16 100 05/06 0030 85 12 100 05/06 0015 85 14 100 05/06 0000 97.6 05/06 0000 87 20 100 05/05 2345 85 31 100 05/05 2330 80 15 100 05/05 2315 85 17 100 05/05 2300 90 28 100 05/05 2245 91 16 100 05/05 2230 82 16 100 05/05 2215 72 14 100 05/05 2200 75 14 100 05/05 2145 73 15 100 05/05 2130 76 16 100 05/05 2115 74 20 100 05/05 2100 73 12 96 05/05 2045 41 92 05/05 2029 70 14 95 05/05 2014 72 15 98 05/05 1999 97.7 05/05 1999 79 20 97 05/05 1945 86 40 94 05/05 1940 Nasal 2.337292 cannula 05/05 1930 67 14 98 24 hour I O ending at 0700: 05/06 0700 05/05 1900 Intake Total 974.00 1010.00 Output Total 2295 1075 Balance -1321.00 -65.00 Intake, IV 624.00 560.00 Intake, Oral 350 450 Output, 25 45 Drainage Output, Urine 2270 1030 Patient Weight Weight (lb): 134Weight (oz): 2.91Weight (kg): 60.781 Medications:Documentation of Current Medications in the Medical Record :I attest that the foregoing medication list in the medical record is true, accurate, and complete to the best of my knowledge. Active Meds + DC'd Last 24 HrsAtorvastatin Calcium 40 MG BEDTIME PO Hydrochlorothiazide 12.5 MG DAILY PO Losartan Potassium 100 MG DAILY PO Potassium Chloride 50 ML Q1H IV (DC) Magnesium Sulfate/Dextrose 100 ML ONCE ONE IV (DC) Aspirin 81 MG DAILY PO Clopidogrel Bisulfate 75 MG DAILY PO Metoprolol Succinate 100 MG DAILY PO Pantoprazole 40 MG DAILY PO Levothyroxine Sodium 100 MCG DAILY@0630 PO Famotidine 20 MG Q12HR IV (DC) Mupirocin 1 APPLIC BID NASAL Potassium Chloride/Dextrose/Sod Cl 1,000 ML Q12H IV Cefazolin Sodium 1,000 MG Q8H IV (DC) Sodium Chloride 10 MLAcetaminophen 650 MG Q4H PRN PRN PO Benzocaine/Menthol 1 EACH Q2H PRN PRN MM (CKD) Bisacodyl 10 MG ASDIR PRN RECTAL Calcium Gluconate 1,000 MG ASDIR PRN IV Sodium Chloride 100 MLHydrocodone Bitart/Acetaminophen 1 TAB Q4H PRN PRN PO Hydrocodone Bitart/Acetaminophen 2 TAB Q4H PRN PRN PO Nicardipine HCl 25 MG ASDIR PRN IV Sodium Chloride 250 MLOndansetron HCl 4 MG Q8H PRN PRN IV Phenol 5 SPRAY Q2H PRN PRN MM Potassium Chloride 10 MEQ ASDIR PRN PO Lactated Ringer's 1,000 ML ONCE ONE IV (DC) Physical ExamGeneral appearance: alert, awakeHead/Eyes: atraumatic, clear corneaENT: moist mucosal membranesNeck: carotid bruit (incision site is ok)Cardiovascular: regular rate rhythmRespiratory: aerating well, clear to auscultationAbdomen: non-tender, normal bowel soundsExtremities: moves all, no clubbingNeuro/HAZARDOUS MATERIALS TANKER DRIVER: alert, no motor deficits Diagnosis, Assessment Plan Free Text DxA P NotesFree Text DxA P Notes:ASSESSMENT:1. Left carotid endarterectomy.2. History of coronary artery disease.3. History of previous carotid disease.4. Hypothyroidism.5. Hyperlipidemia.6. Hypertension. PLAN: The patient is doing well, still on Cardene drip. Medications resumed byCV service. The patient is alert and oriented. Continue present care. RestartPlavix, atorvastatin, isosorbide, losartan, hydrochlorothiazide, metoprolol,aspirin for now, and levothyroxine is at 100 mcg daily. Thank you, Dr. Kc, for allowing us to participate in the care of this patient. 05/06pt was a little confused early this amNo chest pain at 1101 RPT #:[id number] OF REPORTPRProgress Oacg1024-38-71Z76:18:00Z.[id number] for patient mlyqRWHBCZNAORLGYX7194-27-30R99:22:09 [facility] 2019-05-06 05:44:00 OAwvdelgswj75366596mdnU76c7kOOztbryQ3fah qrFWA4dHWM1pmh5uc grF6TTb9jeh/m/xDk0UofU35yG5886-45-08R23:44:[id number] [address] PATIENT NAME: RACHEAL SABILLON ADMIT DATE: 05/05/19ACCOUNT NO: [id number] ROOM NO: Z.SI04 AGE: 73 REPORT TYPE: ELECTROCARDIOGRAM SEX: F ADMITTING PHYSICIAN:Rohith Kc MD ATTENDING PHYSICIAN:Rohith cK MD Order:[id number] Reason : CAD Test Date/Time Stamp:SatMay 06 2019 05:44:59Blood Pressure : / mmHGVent. Rate : 085 BPM Atrial Rate : 085 BPM P-R Int : 164 ms QRS Dur : 072 ms QT Int : 366 ms P-R-T Axes : 073 035 073 degrees QTc Int : 435 ms Normal sinus rhythmNormal ECGWhen compared with ECG of 05-MAY-2019 13:29,No significant change was foundConfirmed by JOSE MARC ([id number]) on 05/06/2019 6:53:38 AM Referred By: Rohith Kc Confirmed by:JOSE MARC at 0653 PATIENT NAME: RACHEAL SABILLON .[id number] ble for patient kcysPMJDYCFTUPNQQH2812-53-87Q97:54:02 [facility] 2019-05-06 05:34:00 JRjczxgpqhu54030882fuax8Z63wyHOLekp0Aogg LU93vWcLYDWwNZlvJ UOHRt3pAaMYSh49IQjnBB35ys01342-46-89W55:34:00 [facility]ECard[facility] Progress NoteREPORT#:[id number] REPORT STATUS: SignedDATE:05/06/19 TIME: 0534 PATIENT: RACHEAL SABILLON UNIT #: [id number]#: [id number] [address]TBK: [address] AGE: 73 SEX: F ATTEND: Rohith Kc [facility] AUTHOR: Supa Kelly MD * ALL edits or amendments must be made on the electronic/computer document * SubjectiveChief Complaint:Carotid disease.Patient reports:No: chest pain, palpitations, shortness of breath. Objective GeneralVS/I O:24 hour I O ending at 0700: 05/06 0700 05/05 1900 Intake Total 444.00 1010.00 Output Total 1760 1075 Balance -1316.00 -65.00 Intake, IV 444.00 560.00 Intake, Oral 450 Output, 15 45 Drainage Output, Urine 1745 1030 Vital Signs:Date Time Temp Pulse Resp B/P B/P Pulse O2 O2 Flow FiO2 Mean Ox Delivery Rate05/06 0130 92 18 0115 92 16 0100 96 15 0045 82 16 0030 85 12 0015 85 14 0000 97.601/ 0000 87 20 2345 85 31 2330 80 15 2315 85 17 2300 90 28 2245 91 16 2230 82 16 22412/ 2215 72 14 51267/21 2200 75 14 58470/21 2145 73 15 89278/ 2130 76 16 57627/21 2115 74 20 00416/ 2100 73 12 96/ 2045 41 9205/05 2030 70 14 950/2014 72 15 980/1999 97.701/1999 79 20 97/ 1945 86 40 9401/ 1940 Nasal 2.869866 rihfxkv29/21 1930 67 14 9801/21 1915 73 19 9501/21 1900 76 18 9301/21 1845 7001/21 1830 89 9601/21 1815 97 Nasal 2.381892 28 bevrywv79/21 1815 63 23 9401/21 1800 68 15 9301/21 1745 67 17 9401/21 1730 67 9401/21 1715 74 20886/ 1700 72 74186/ 1645 80 21 9301/21 1630 70 17 48758/ 1615 73 24 17096/ 1600 69 20 70102/ 1600 97.8 75 20 100 Nasal 3.107467 axarish56/21 1545 71 22 12152/ 1530 69 19 26898/ 1515 64 76692/ 1500 70 65622/21 1445 70 26 98712/ 1430 66 14 55423/ 1415 71 34268/ 1400 75 77626/ 1358 100 Nasal 2.624904 28 qvuqjuo28/21 1345 68 17 91404/21 1330 Aerosol 10.250698 60 mask01/21 1330 79 61047/ 1315 97.7 66 18 100 Aerosol 10.722291 60 mask01/21 1315 75 17 46509/ 1310 77 15 64354/ 1242 100 Face mist 10.444676 60 tent01/21 0550 97.1 70 18 164/101 95 Room air Patient Weight Weight (lb): 134Weight (oz): 2.91Weight (kg): 60.864 Medications:Active Meds + DC'd Last 24 HrsAtorvastatin Calcium 40 MG BEDTIME PO Aspirin 81 MG DAILY PO Clopidogrel Bisulfate 75 MG DAILY PO Metoprolol Succinate 100 MG DAILY PO Pantoprazole 40 MG DAILY PO Levothyroxine Sodium 100 MCG DAILY@0630 PO Famotidine 20 MG Q12HR IV Mupirocin 1 APPLIC BID NASAL Magnesium Sulfate/Dextrose 100 ML ONCE ONE IV (DC) Potassium Chloride 50 ML Q1H IV (DC) Potassium Chloride/Dextrose/Sod Cl 1,000 ML Q12H IV Cefazolin Sodium 1,000 MG Q8H IV (DC) Sodium Chloride 10 MLAcetaminophen 650 MG Q4H PRN PRN PO Benzocaine/Menthol 1 EACH Q2H PRN PRN MM (CKD) Bisacodyl 10 MG ASDIR PRN RECTAL Calcium Gluconate 1,000 MG ASDIR PRN IV Sodium Chloride 100 MLHydrocodone Bitart/Acetaminophen 1 TAB Q4H PRN PRN PO Hydrocodone Bitart/Acetaminophen 2 TAB Q4H PRN PRN PO Meperidine HCl 25 MG Q4H PRN PRN IM (DC) Nicardipine HCl 25 MG ASDIR PRN IV Sodium Chloride 250 MLOndansetron HCl 4 MG Q8H PRN PRN IV Phenol 5 SPRAY Q2H PRN PRN MM Potassium Chloride 10 MEQ ASDIR PRN PO Phenylephrine HCl 0 .STK-MED ONE .ROUTE (DC) Protamine Sulfate 0 .STK-MED ONE .ROUTE (DC) Rocuronium Simla 0 .STK-MED ONE .ROUTE (DC) Calcium Chloride 0 .STK-MED ONE .ROUTE (DC) Labetalol HCl 0 .STK-MED ONE .ROUTE (DC) Lidocaine HCl 0 .STK-MED ONE .ROUTE (DC) Dexamethasone Sodium Phosphate 0 .STK-MED ONE .ROUTE (DC) Famotidine 0 .STK-MED ONE .ROUTE (DC) Ondansetron HCl 0 .STK-MED ONE .ROUTE (DC) Lactated Ringer's 1,000 ML ONCE ONE IV Bacitracin 0 .STK-MED ONE .ROUTE (DC) Glycopyrrolate 0 .STK-MED ONE .ROUTE (DC) Heparin Sodium/Sodium Chloride 500 ML .STK-MED ONE IV (DC) Sodium Chloride 10 ML .STK-MED ONE IV (DC) Ephedrine Sulfate 0 .STK-MED ONE .ROUTE (DC) Fentanyl Citrate 0 .STK-MED ONE .ROUTE (DC) Nicardipine HCl 250 ML .STK-MED ONE IV (DC) Phenylephrine HCl 100 ML .STK-MED ONE IV (DC) Lidocaine HCl 0 .STK-MED ONE .ROUTE (DC) Cefazolin Sodium 0 .STK-MED ONE .ROUTE (DC) Lidocaine HCl 0 .STK-MED ONE .ROUTE (DC) Physical ExamGeneral appearance: alert, awake, orientedHead/Eyes: atraumatic, normocephalicENT: moist mucosal membranesNeck: no JVDCardiovascular: CV assessment: regular rate and rhythmRespiratory: clear to auscultation, no distressLower extremity: LE assessment: no edemaMusculoskeletal: full range of motionNeuro/HAZARDOUS MATERIALS TANKER DRIVER: alert, oriented X 3, CN II-XII intactSkin: dry, intactWound/incision: Site condition: dressing clean dryPsychiatry: normal affect, normal judgment/insight, normal mood ResultsFindings/Data:Laboratory Tests 05/05 1301 Blood Gas Puncture Site AL ABG pH (7.35 - 7.45 mmHg) 7.36 ABG pCO2 (35.0 - 45.0 mmHg) 51.2 *H ABG pO2 (80.0 - 100.0 mmol/L) 107.8 H ABG HCO3 (20.0 - 26.0 mmol/L) 28.0 H ABG O2 Saturation (95.0 - 100.0 %) 97.7 ABG Base Excess (-3.0 - 3.0 mmol/L) 1.5 Nick Test (CHECK) NA Temperature (37 C) 37.0 O2 Delivery Device FACETENT FiO2 (%) 60 Laboratory Tests 05/05 1250 Chemistry Sodium (137 - 145 MMOL/L) 136 L Potassium (3.5 - 5.1 MMOL/L) 2.9 L Chloride (98 - 107 MMOL/L) 98 Carbon Dioxide (22 - 30 MMOL/L) 30 Anion Gap (14 - 24 MMOL/L) 11 L BUN (7 - 17 MG/DL) 13 Creatinine (0.52 - 1.04 MG/DL) 0.60 Glomerular Filtr Rate > 60 Glucose (74 - 106 MG/DL) 120 H Calcium (8.4 - 10.2 MG/DL) 9.7 Magnesium (1.6 - 2.3 MG/DL) 1.4 L Laboratory Tests 05/05 1250 Hematology WBC (3.8 - 9.8 K/MM3) 7.7 RBC (3.58 - 4.97 M/MM3) 3.33 L Hgb (11.2 - 14.9 G/DL) 10.7 L Hct (33.2 - 43.5 %) 31.7 L MCV (80.7 - 99.1 fL) 95 MCH (27.0 - 34.1 pg) 32.1 MCHC (32.2 - 35.7 %) 33.8 RDW (12.1 - 15.2 %) 15.2 Plt Count (129 - 368 K/MM3) 231 MPV (7.4 - 10.4 fl) 9.0 Neut % (Auto) (43 - 75 %) 77.4 H Lymph % (Auto) (14 - 44 %) 13.2 L [place] % (Auto) (4 - 13 %) 5.7 Eos % (Auto) (0 - 6 %) 2.7 Baso % (Auto) (0 - 2 %) 0.3 Neut # (Auto) (2.0 - 7.6 K/mm3) 5.95 Lymph # (Auto) (1.0 - 3.8 K/mm3) 1.01 [place] # (Auto) (0.1 - 0.8 K/mm3) 0.44 Eos # (Auto) (0.0 - 0.2 K/mm3) 0.21 H Baso # (Auto) (0.0 - 0.2 K/mm3) 0.02 Immature Gran % (0.0 - 2.0 %) 0.7 Nucleated RBC % (0 - 1.0 %) 0.0 Nucleated RBCs # (Man) (0.0 - 0.1 K/mm3) 0.00 Laboratory Tests 05/05 1250 Chemistry Magnesium (1.6 - 2.3 MG/DL) 1.4 L Radiology data:Recent Impressions:RADIOLOGY - XR CHEST 1V 05/05 1304 Report Impression - Status: SIGNED Entered: 05/05/2019 1338 IMPRESSION:1. Status post left carotid endarterectomy.2. Right lower lobe atelectasis.Impression By: Sunny Balderas M.D. Diagnosis, Assessment Plan Free Text DxA P NotesFree Text DxA P Notes:IMP: Carotid disease s/p left CEA HTN CAD HLP PLAN: Continue current medical rx. Review labs Replace lytes as needed. Ambualte IS at 0709 RPT #:[id number] OF REPORTPRProgress Eqhh0894-12-95Z84:34:00Z.[id number] for patient hhrrGYCYARLGWZQIMJ7067-17-11I83:10:02 [facility] 2019-05-05 17:59:00 INwlgwfhdto99890448kaHHpS1VXM9VFRSLka025 08LZ7tra9I6tojmsX eAOd3kMqw2CTSc1Bzshrbtbewo8767-56-40B40:59:[id number] [address] PATIENT NAME: RACHEAL SABILLON ADMIT DATE: 05/05/19ACCOUNT NO: [id number] ROOM NO: ZSI04 AGE: 73 REPORT TYPE: CONSULTATION REPORT SEX: F ADMITTING PHYSICIAN:Rohith Kc MD ATTENDING PHYSICIAN:Rohith Kc MD CONSULTATION DATE: CONSULTING PHYSICIAN: David Irving MD REASON FOR CONSULTATION: Medical management of this patient post left carotidendarterectomy. CONSULTATION REQUESTED BY: Rohith Kc MD HISTORY OF PRESENT ILLNESS: This is a 73-year-old female with history ofcarotid disease, had a right carotid endarterectomy before and now is here forleft carotid endarterectomy. The patient did well post-surgery, is sitting upin the chair, not in any distress, and has a drain in place. PAST MEDICAL HISTORY: Includes history of coronary artery disease,hypertension, dyslipidemia, thyroid disorder with mitral regurgitation, previoushistory of hypothyroidism, and thrombocytopenia. PAST SURGICAL HISTORY: Splenectomy and carotid endarterectomy. SOCIAL HISTORY: The patient is a former smoker, lives with her . ALLERGIES: NO KNOWN ALLERGIES. MEDICATIONS: Noted. Please note that the patient has known coronary artery disease withsingle-vessel coronary artery disease and circumflex stent in 2003. FAMILY HISTORY: Positive for atherosclerotic cardiovascular disease. REVIEW OF SYSTEMS: Ten points reviewed, pertinent findings are noted above. PHYSICAL EXAMINATION:GENERAL: The patient is awake, alert, oriented, sitting up on the chair, andnot in any distress.VITAL SIGNS: Noted.HEENT: Pupils are round and reactive. Oropharynx is pink. Tongue in midline.NECK: Supple. Drain in place.CHEST: No crackles or wheezing.CARDIOVASCULAR: Regular rate and rhythm. S1 and S2 normal.ABDOMEN: Soft. PATIENT NAME: RACHEAL SABILLON EXTREMITIES: No cyanosis, clubbing, or edema.CENTRAL NERVOUS SYSTEM: Cranial nerves II through XII intact. No cerebellarsigns. LABORATORY STUDIES: Noted. ASSESSMENT:1. Left carotid endarterectomy.2. History of coronary artery disease.3. History of previous carotid disease.4. Hypothyroidism.5. Hyperlipidemia.6. Hypertension. PLAN: The patient is doing well, still on Cardene drip. Medications resumed byCV service. The patient is alert and oriented. Continue present care. RestartPlavix, atorvastatin, isosorbide, losartan, hydrochlorothiazide, metoprolol,aspirin for now, and levothyroxine is at 100 mcg daily. Thank you, Dr. Kc, for allowing us to participate in the care of thispatient. Dictated By: David Irving MD WT: CON:GERARDO/CALVIN/NTSDD: 05/05/2019 17:59:54DT: 05/05/2019 20:30:38Conf#: [id number]/DID#: [id number] Authenticated by David Irving MD On 05/08/2019 05:26:56 PM at 1727 PATIENT NAME: RACHEAL SABILLON :30:[id number] for patient [id number]:27:19 [facility] 2019-05-05 16:25:00 [id number]+[id number] 7zeNGHyPCCkkwp0D7 0gBwvpON/[id number]:25:00 [facility] ([facility]EC[facility] Progress NoteREPORT#:[id number] REPORT STATUS: SignedDATE:05/05/19 TIME: 1625 PATIENT: RACHEAL SABILLON UNIT #: [id number]#: [id number] [address] AGE: 73 SEX: F ATTEND: Rohith Kc [facility] AUTHOR: Supa Kelly MD * ALL edits or amendments must be made on the electronic/computer document * SubjectiveHPI:73 year old female with h/o carotid disease. Now s/p left CEA. Objective GeneralVS/I O:24 hour I O ending at 0700: 05/05 0700 05/04 1900 Intake Total Output Total Balance Patient 60.864 kg 63.63 kg Weight Weight Standing scale Stated/Reported Measurement Method Vital Signs: Date Time Temp Pulse Resp B/P B/P Pulse O2 O2 Flow FiO2 Mean Ox Delivery Rate 05/05 1330 Aerosol 10.894639 60 mask 05/05 1330 79 100 05/05 1315 97.7 66 18 100 Aerosol 10.529600 60 mask 05/05 1315 75 17 100 05/05 1310 77 15 100 05/05 0550 97.1 70 18 164/101 95 Room air Patient Weight Weight (lb): 134Weight (oz): 2.91Weight (kg): 60.864 Medications:Active Meds + DC'd Last 24 HrsAtorvastatin Calcium 40 MG BEDTIME PO Aspirin 81 MG DAILY PO Clopidogrel Bisulfate 75 MG DAILY PO Metoprolol Succinate 100 MG DAILY PO Pantoprazole 40 MG DAILY PO Levothyroxine Sodium 100 MCG DAILY@0630 PO Famotidine 20 MG Q12HR IV Mupirocin 1 APPLIC BID NASAL Magnesium Sulfate/Dextrose 100 ML ONCE ONE IV Potassium Chloride 50 ML Q1H IV Potassium Chloride/Dextrose/Sod Cl 1,000 ML Q12H IV Cefazolin Sodium 1,000 MG Q8H IV Sodium Chloride 10 MLAcetaminophen 650 MG Q4H PRN PRN PO Benzocaine/Menthol 1 EACH Q2H PRN PRN MM (CKD) Bisacodyl 10 MG ASDIR PRN RECTAL Calcium Gluconate 1,000 MG ASDIR PRN IV Sodium Chloride 100 MLHydrocodone Bitart/Acetaminophen 1 TAB Q4H PRN PRN PO Hydrocodone Bitart/Acetaminophen 2 TAB Q4H PRN PRN PO Meperidine HCl 25 MG Q4H PRN PRN IM (DC) Nicardipine HCl 25 MG ASDIR PRN IV Sodium Chloride 250 MLOndansetron HCl 4 MG Q8H PRN PRN IV Phenol 5 SPRAY Q2H PRN PRN MM Potassium Chloride 10 MEQ ASDIR PRN PO Phenylephrine HCl 0 .STK-MED ONE .ROUTE (DC) Protamine Sulfate 0 .STK-MED ONE .ROUTE (DC) Rocuronium Simla 0 .STK-MED ONE .ROUTE (DC) Calcium Chloride 0 .STK-MED ONE .ROUTE (DC) Labetalol HCl 0 .STK-MED ONE .ROUTE (DC) Lidocaine HCl 0 .STK-MED ONE .ROUTE (DC) Dexamethasone Sodium Phosphate 0 .STK-MED ONE .ROUTE (DC) Famotidine 0 .STK-MED ONE .ROUTE (DC) Ondansetron HCl 0 .STK-MED ONE .ROUTE (DC) Lactated Ringer's 1,000 ML ONCE ONE IV Bacitracin 0 .STK-MED ONE .ROUTE (DC) Glycopyrrolate 0 .STK-MED ONE .ROUTE (DC) Heparin Sodium/Sodium Chloride 500 ML .STK-MED ONE IV (DC) Sodium Chloride 10 ML .STK-MED ONE IV (DC) Ephedrine Sulfate 0 .STK-MED ONE .ROUTE (DC) Fentanyl Citrate 0 .STK-MED ONE .ROUTE (DC) Nicardipine HCl 250 ML .STK-MED ONE IV (DC) Phenylephrine HCl 100 ML .STK-MED ONE IV (DC) Lidocaine HCl 0 .STK-MED ONE .ROUTE (DC) Cefazolin Sodium 0 .STK-MED ONE .ROUTE (DC) Lidocaine HCl 0 .STK-MED ONE .ROUTE (DC) Physical ExamGeneral appearance: alert, awake, orientedHead/Eyes: atraumatic, normocephalicENT: moist mucosal membranesNeck: no JVDCardiovascular: CV assessment: regular rate and rhythmRespiratory: clear to auscultation, no distressLower extremity: LE assessment: no edemaMusculoskeletal: full range of motionNeuro/HAZARDOUS MATERIALS TANKER DRIVER: alert, oriented X 3, CN II-XII intactSkin: dry, intactPsychiatry: normal affect, normal judgment/insight, normal mood ResultsFindings/Data:Laboratory Tests 05/05 1301 Blood Gas Puncture Site AL ABG pH (7.35 - 7.45 mmHg) 7.36 ABG pCO2 (35.0 - 45.0 mmHg) 51.2 *H ABG pO2 (80.0 - 100.0 mmol/L) 107.8 H ABG HCO3 (20.0 - 26.0 mmol/L) 28.0 H ABG O2 Saturation (95.0 - 100.0 %) 97.7 ABG Base Excess (-3.0 - 3.0 mmol/L) 1.5 Nick Test (CHECK) NA Temperature (37 C) 37.0 O2 Delivery Device FACETENT FiO2 (%) 60 Laboratory Tests 05/05 1250 Chemistry Sodium (137 - 145 MMOL/L) 136 L Potassium (3.5 - 5.1 MMOL/L) 2.9 L Chloride (98 - 107 MMOL/L) 98 Carbon Dioxide (22 - 30 MMOL/L) 30 Anion Gap (14 - 24 MMOL/L) 11 L BUN (7 - 17 MG/DL) 13 Creatinine (0.52 - 1.04 MG/DL) 0.60 Glomerular Filtr Rate > 60 Glucose (74 - 106 MG/DL) 120 H Calcium (8.4 - 10.2 MG/DL) 9.7 Magnesium (1.6 - 2.3 MG/DL) 1.4 L Laboratory Tests 05/05 1250 Hematology WBC (3.8 - 9.8 K/MM3) 7.7 RBC (3.58 - 4.97 M/MM3) 3.33 L Hgb (11.2 - 14.9 G/DL) 10.7 L Hct (33.2 - 43.5 %) 31.7 L MCV (80.7 - 99.1 fL) 95 MCH (27.0 - 34.1 pg) 32.1 MCHC (32.2 - 35.7 %) 33.8 RDW (12.1 - 15.2 %) 15.2 Plt Count (129 - 368 K/MM3) 231 MPV (7.4 - 10.4 fl) 9.0 Neut % (Auto) (43 - 75 %) 77.4 H Lymph % (Auto) (14 - 44 %) 13.2 L [place] % (Auto) (4 - 13 %) 5.7 Eos % (Auto) (0 - 6 %) 2.7 Baso % (Auto) (0 - 2 %) 0.3 Neut # (Auto) (2.0 - 7.6 K/mm3) 5.95 Lymph # (Auto) (1.0 - 3.8 K/mm3) 1.01 [place] # (Auto) (0.1 - 0.8 K/mm3) 0.44 Eos # (Auto) (0.0 - 0.2 K/mm3) 0.21 H Baso # (Auto) (0.0 - 0.2 K/mm3) 0.02 Immature Gran % (0.0 - 2.0 %) 0.7 Nucleated RBC % (0 - 1.0 %) 0.0 Nucleated RBCs # (Man) (0.0 - 0.1 K/mm3) 0.00 Laboratory Tests 05/05 1250 Chemistry Magnesium (1.6 - 2.3 MG/DL) 1.4 L Radiology data:Recent Impressions:RADIOLOGY - XR CHEST 1V 05/05 1304 Report Impression - Status: SIGNED Entered: 05/05/2019 2188 IMPRESSION:1. Status post left carotid endarterectomy.2. Right lower lobe atelectasis.Impression By: Sunny Balderas M.D. Diagnosis, Assessment Plan Free Text DxA P NotesFree Text DxA P Notes:IMP: Carotid disease s/p left CEA HTN CAD HLP PLAN: Home medicatons [place] IS at 0529 RPT #:[id number] OF REPORTPRProgress Csfy7528-57-79C11:25:00Z.STEX60347461-8881UOLujjeiqsb for patient snvtJNYVMDDGKCVSFG2661-93-02K04:29:40 [facility] 2019-05-05 13:29:00 OLaarorvunx46815298APquVzE6OE/d4dtcPpANt MqkhOgJf6QC66snUh 0grJCM1jmIUrjkaXEWB1hV+i2K0183-34-24S60:29:645727-9040 [place] [address] PATIENT NAME: RACHEAL SABILLON ADMIT DATE: 05/05/19ACCOUNT NO: [id number] ROOM NO: Z.SI04 AGE: 73 REPORT TYPE: ELECTROCARDIOGRAM SEX: F ADMITTING PHYSICIAN:Rohith Kc MD ATTENDING PHYSICIAN:Rohith Kc MD Order:[id number] Reason : post op Test Date/Time Stamp:SatMay 05 2019 13:29:56Blood Pressure : / mmHGVent. Rate : 073 BPM Atrial Rate : 073 BPM P-R Int : 180 ms QRS Dur : 082 ms QT Int : 396 ms P-R-T Axes : 071 030 076 degrees QTc Int : 436 ms Normal sinus rhythmNormal ECGWhen compared with ECG of 04-MAY-2019 10:28,No significant change was foundConfirmed by JOSE MARC ([id number]) on 05/05/2019 4:06:10 PM Referred By: Rohith Kc Confirmed by:JOSE MARC at 1606 PATIENT NAME: RACHEAL SABILLON .[id number] ble for patient zwvvRBYCWMAWYZXZMC9378-46-35I33:06:37 [facility] 2019-05-05 12:37:00 WMlezzqyzsc80416815nFvOJvjJmkKYd5bH/jHZH sVhfu7a/5BLyqQVq7 utkSI/bA1bSzhzIYtJh3k2I7Yw1725-70-82L62:37:00 [facility] ([facility]AREBrief Op NoteREPORT#:[id number] REPORT STATUS: SignedDATE:05/05/19 TIME: 1237 PATIENT: RACHEAL SABILLON UNIT #: [id number]#: [id number] ROOM/BED:: 46 AGE: 73 SEX: F ATTEND: Rohith Kc MDADM AUTHOR: Rohith Kc MD * ALL edits or amendments must be made on the electronic/computer document * Op/Inv Proc Note - BriefORM Surgeries: Surgery Date and Time: 05/05/2019 0930 Primary Procedure: LEFT CAROTID ENDARTERECTOMY Pre-procedure diagnosis:Left internal carotid artery stenosisPost-procedure diagnosis: same as pre procedure dxProcedures performed:Left carotid endarterectomy with hemshield patch arterioplastyInsertion of right subclavian central line using sonosite US guidancePrimary Surgeon:Rohith Parekhtant(s): AURORA PedrazaCAnesthesiologist:Dr. Bandar Geronimo, CRNAAnesthesia: general anesthesiaFindings:See detailed op reportComplications: noneEstimated blood loss in ml's: 150ccSpecimens removed/altered: left carotid plaqueDrain(s): Lackey Catheter Placed, BLAKE drainDisposition: ICU, stable at 1239 [facility] #:[id number] OF REPORTOPOperative retpvo6465-59-77X32:37:00Z.SUAU92731348-7302OQPwwrnttcs for patient ziirSSAIMUBMFRQZQX2553-27-13X91:39:24 [facility] 2019-05-05 12:32:00 CBqdyzpbcja72233603M+F0E9ZoBXVPeKPAAPmxX +wlhmZIlfX/jMAyhf LZQA+/bBm5viljzPO7NgnZEVjd9021-24-09U06:32:[id number] [place] [address] PATIENT NAME: RACHEAL SABILLON ADMIT DATE: 05/05/19ACCOUNT NO: [id number] ROOM NO: [facility] AGE: 73 REPORT TYPE: OPERATIVE REPORT SEX: F ADMITTING PHYSICIAN:Rohith Kc MD ATTENDING PHYSICIAN:Rohith Kc MD OPERATION DATE: 05/05/2019 CARDIAC SURGERY SERVICE PREOPERATIVE DIAGNOSES: Left internal carotid stenosis. POSTOPERATIVE DIAGNOSIS: Left internal carotid stenosis. PROCEDURE: Right CVP insertion, ultrasound-guided access with SonoSite, rightsubclavian vein, left carotid endarterectomy, and Hemashield patcharterioplasty. SURGEON: Rohith Kc MD CONCRETE PANEL INSTALLER: Brisa Moser PA-C ANESTHESIA: General. COMPLICATIONS: None. DISPOSITION: The patient to surgical ICU in stable condition. PROCEDURE IN DETAIL: On 05/05/2019, the patient was brought to the operatingroom, placed on the operating table in supine position, prepped and draped inusual fashion. Following introduction of satisfactory general anesthesia,placement of monitoring lines, the patient prepped and draped in usual fashionand placing right subclavian CVP using ultrasound-guided access with SonoSite,right subclavian vein and Seldinger percutaneous guidewire technique. Neckextended, turned right to 45-degree angle, prepped and draped. Incision madealong the anterior border of sternocleidomastoid muscle. Carotid sheath andvessels placed around the carotid arterial branches. Heparin given. Clampswere placed. The arteriotomy of the common carotid extremely tight greater than80% stenosis of the left internal carotid artery. We extended beyond the plaqueand stenosis to the more normal-appearing artery, irrigated with heparin salinesolution. A shunt was placed. The endarterectomy performed, plaque featheredout nicely in the internal carotid artery. Then, we irrigated again withheparin saline solution and Hemashield patch arterioplasty closure with 5-0Prolene was done. Prior to patch closure completion, shunt removed. Allbranches allowed to backbleed to flush any debris and patch closure complete. Wounds were irrigated with antibiotic saline solution and closed in layers inusual fashion. Dressing applied, and the patient to the surgical ICU in stablecondition, neurologically intact. The patient remained stable. Wounds were PATIENT NAME: RACHEAL SABILLON irrigated. The patient was taken to ICU in stable condition. Dictated By: Rohith Kc MD WT: OP:ZSULY/ISAÍAS/NTSDD: 05/05/2019 12:32:10DT: 05/05/2019 13:11:36Conf#: [id number]/DID#: [id number] cc: Jose Marc MD Authenticated by Rohith Kc MD On 05/17/2019 01:22:07 PM at 1322 PATIENT NAME: RACHEAL SABILLON fmagdj6560-91-80Z25:11:00Z.WTK80267863-4007MJQymdrdxer for patient koccFOCSLLGRQSYTDA3046-83-04P37:22:45 [facility] 2019-05-04 10:28:00 YVnnnawpzat34091889fapsG75Enc/ZK55fNRI2z HKg/hupB949vsXXXT FxFZTeta/GBZWmFQGX+l11zPSS7147-16-79B34:28:960720-[address] [address] PATIENT NAME: RACHEAL SABILLON ADMIT DATE: ACCOUNT NO: [id number] ROOM NO: AGE: 73 REPORT TYPE: ELECTROCARDIOGRAM SEX: F ADMITTING PHYSICIAN: ATTENDING PHYSICIAN:Rohith Kc MD Order:[id number] Reason : PRE-OP Test Date/Time Stamp:SatMay 04 2019 10:28:37Blood Pressure : / mmHGVent. Rate : 064 BPM Atrial Rate : 064 BPM P-R Int : 162 ms QRS Dur : 074 ms QT Int : 394 ms P-R-T Axes : 070 033 067 degrees QTc Int : 406 ms Normal sinus rhythmNormal ECGWhen compared with ECG of 04-OCT-2018 08:33,Vent. rate has decreased BY 33 BPMConfirmed by MAXWELL COLÓN MD ([id number]) on 05/04/2019 12:18:13 PM Referred By: Rohith Kc Confirmed by:MAXWELL COLÓN MD at 1218 PATIENT NAME: RACHEAL SABILLON .[id number] ble for patient bdhsQAGZIZTJVNBNJK4081-79-53J78:18:35 [facility] 2019-05-04 10:28:00 SHkubvfwbdc99967918a77zhhfzZ56z1EhZrHhCs WigL8ew5tgvux/TQt MTheqdL17aKhYfu6hh9P1e8jvf3486-97-92Z80:28: [address] [address] PATIENT NAME: RACHEAL SABILLON ADMIT DATE: ACCOUNT NO: [id number] ROOM NO: AGE: 73 REPORT TYPE: ELECTROCARDIOGRAM SEX: F ADMITTING PHYSICIAN: ATTENDING PHYSICIAN:Rohith Kc MD Order:[id number] Reason : PRE-OP Test Date/Time Stamp:SatMay 04 2019 10:28:37Blood Pressure : / mmHGVent. Rate : 064 BPM Atrial Rate : 064 BPM P-R Int : 162 ms QRS Dur : 074 ms QT Int : 394 ms P-R-T Axes : 070 033 067 degrees QTc Int : 406 ms Normal sinus rhythmNormal ECGWhen compared with ECG of 04-OCT-2018 08:33,Vent. rate has decreased BY 33 BPMReconfirmed by JOSE MARC ([id number]) on 05/04/2019 5:11:28 PM Referred By: Rohith Kc Confirmed by:JOSE MARC at 1711 PATIENT NAME: RACHEAL SABILLON .[id number] [facility] for patient zohmTYPBVJTHPYUXCH8883-13-54W37:11:43 [facility] 2018-11-17 21:37:00 XLszntvloyc54363941TQCDa9RrBjfPLPoH+Sajz lEd+spMph1JDUuJYk KekkdcfGwF+Y9J1f9BKXOf/rjw8245-18-23C06:37:658259-[address] [address] PATIENT NAME: RACHEAL SABILLON ADMIT DATE: 09/30/18ACCOUNT NO: [id number] ROOM NO: Z.SI07 AGE: 73 REPORT TYPE: DISCHARGE SUMMARY REPORT SEX: F ADMITTING PHYSICIAN:Rohith Kc MD ATTENDING PHYSICIAN:Rohith Kc MD ADMISSION DATE: 09/30/2018DISCHARGE DATE: 10/04/2018 DISCHARGE DIAGNOSES: Right internal carotid artery stenosis, status post rightcarotid endarterectomy, moderate coronary artery disease, hypertension, andhypercholesterolemia. HOSPITAL COURSE: The patient is a 73-year-old female, who is status post acoronary artery stent in the past and underwent cardiac catheterization, wasfound to have moderate coronary artery disease and she also had a carotid dupleximaging done, which showed high-grade right internal carotid artery stenosisabout 90% and the left about 70%. She did undergo a carotid artery angiogram on09/20/2018, and was found to have a high-grade 90% stenosis of the rightinternal carotid artery and 70% on the left side. The patient was subsequentlyadmitted on 09/30/2018 and taken to the operating room where she underwent aright carotid endarterectomy with Hemashield patch arterioplasty. The patienttolerated the procedure well and was transferred to ICU in a stable conditionwhere she was temporarily placed on a Cardene drip for management of her bloodpressure. Once her oral antihypertensive medications were restarted, she wasweaned off the drip. Her BLAKE drain was removed on postop day #1. Her neurostatus remained intact. She was ambulating independently and with assistance ofphysical therapy. She was transferred to the CVU unit and [facility] was [facility] condition. She was instructed to follow up with Dr. Kc in 1 week. She is to continuemedications per the discharge MAR and also home health services was arranged forthis patient. Dictated By: RADHA Morton for Rohith Kc MD WT: DS:GERARDO/KIM/NTSDD: 11/17/2018 21:37:58DT: 11/17/2018 21:54:38Conf#: [id number]/DID#: [id number] Authenticated by RADHA Morton On 11/18/2018 08:54:11 PM Authenticated by Rohith Kc MD On 11/18/2018 10:06:10 PM PATIENT NAME: RACHEAL SABILLON at 2206 at 2206 PATIENT NAME: RACHEAL SABILLON rsbtrlz2283-72-14J12:54:00Z.[id number] for patient owahRCFEMBNPXUVGMK1546-06-28S07:06:48 [facility] 2018-10-04 08:46:00 XStbrcpzqhg67995086ytPNtE4Qh2d0oOQkYZn5V YYJ0QbzusnLqYpP8U KoPw0xz7TtAZJZMGqzPaQYhQjt8369-52-38O79:46:00 [facility] ([facility])Cardiovascular Surgery ProgREPORT#:[id number] REPORT STATUS: SignedDATE:10/04/18 TIME: 845 PATIENT: RACHEAL SABILLON UNIT #: [id number]#: [id number] [address] AGE: 72 SEX: F ATTEND: Rohith Kc [facility] AUTHOR: Ladi Guido NP * ALL edits or amendments must be made on the electronic/computer document * GeneralPost-op: day 3Status post:Right CEA SubjectivePatient reports:No: complaints, nausea, vomiting, pain. Nursing reports:No: complaints. Comments:seen pt walking in the hallwaydenies SOB, CP, pain Review of SystemsConstitutional:Denies: chills, fatigue, fever, generalized weakness. Respiratory:Denies: NEGRO (dyspnea on exertion), SOB. Cardiovascular:Denies: chest pain, NEGRO (dyspnea on exertion), edema, orthopnea. Objective Physical ExamVS/I O:Last Documented: Result Date Time Pulse Ox 97 10/04 0719 FiO2 21 10/04 07 O2 Delivery Room air 10/04 718 Temp 36.6 10/04 0400 B/P 151/74 10/03 1818 B/P Mean 103 10/03 1818 Pulse 96 10/03 1818 Resp 30 10/03 1818 O2 Flow Rate 2.956326 10/03 0715 24 hour I O ending at 0700: 10/04 0700 10/03 1900 Intake Total 120 1360.00 Output Total 600 200 Balance -480 1160.00 Intake, IV 500.00 Intake, Oral 120 860 Number Voids 3 Output, Urine 600 200 Patient Weight Weight (lb): 156Weight (oz): 3.65Weight (kg): 70.76 Medications:Active Meds + DC'd Last 24 HrsSodium Chloride 500 ML BOLUS ONCE ONE IV (DC) Famotidine 20 MG Q12HR PO Nifedipine 10 MG Q4H PRN PRN SL Aspirin 81 MG DAILY PO Clopidogrel Bisulfate 75 MG DAILY PO Hydrochlorothiazide 12.5 MG DAILY PO Isosorbide Mononitrate 30 MG DAILY PO Losartan Potassium 100 MG DAILY PO Metoprolol Succinate 100 MG DAILY PO Levothyroxine Sodium 100 MCG DAILY@0630 PO Atorvastatin Calcium 40 MG BEDTIME PO Mupirocin 1 APPLIC BID NASAL Potassium Chloride/Dextrose/Sod Cl 1,000 ML Q12H IV Acetaminophen/Codeine Phosphate 2 UDTAB Q4H PRN PRN PO Acetaminophen/Codeine Phosphate 1 UDTAB Q4H PRN PRN PO Meperidine HCl 25 MG Q4H PRN PRN IM Meperidine HCl 50 MG Q4H PRN PRN IM Acetaminophen 650 MG Q8H PRN PRN PO Acetaminophen 650 MG Q4H PRN PRN PO Benzocaine/Menthol 1 EACH Q2H PRN PRN MM (CKD) Bisacodyl 10 MG ASDIR PRN RECTAL Calcium Gluconate 1,000 MG ASDIR PRN IV Sodium Chloride 100 MLNicardipine HCl 25 MG ASDIR PRN IV Sodium Chloride 250 MLNifedipine 10 MG Q4H PRN PRN SL Ondansetron HCl 4 MG Q8H PRN PRN IV Phenol 5 SPRAY Q2H PRN PRN MM Potassium Chloride 10 MEQ ASDIR PRN PO Magnesium Hydroxide 30 ML ASDIR PRN PO Zolpidem Tartrate 5 MG BEDTIME PRN PRN PO General appearance: alert, awake, oriented, no acute distress, no respiratory distressWound/incision: Location: right lateral neck incision Site condition: dressing clean dry, dressing intactNeck: tenderness (right neck), Right neck swellingCardiovascular: BP/pulses equal bilat., normal heart sounds, regular rate rhythmRespiratory: aerating well, clear to auscultation, symmetric expansion, no distressAbdomen: soft, non-tender, normal bowel sounds, no distentionGenitourinary: no foleyExtremities: moves all, no edemaNeuro/HAZARDOUS MATERIALS TANKER DRIVER: alert, oriented X 3, CNII-XII intacte, normal gait, normal speech, nomotor deficits, no sensory deficits, Tongue is midline without deviation Diagnosis, Assessment PlanFree Text A P:This is a 72 Y/F with LITTLE stenosisS/p Right CEA-tongue is midline without deviation, left facial droop. Right mildfacial swellingOn statin/plavix/aspirinDVT prophylaxis-SCDs and TEDsEncourage IS and ambulationHTN- well controlledCM consult [facility]: D/c planning [facility] today when VS is stable and pt is ready. Follwoup with Dr. Kc after 1-2 weeks in the clinic. Plan discussed with: patient, collaborating MD (DR. Kc) at 1921 RPT #:[id number] OF REPORTPRProgress Kzsa7900-13-45R07:46:00Z.BCPU76980388-1163EWBldftholh for patient sqywBTFQGTFDSLVIOD6601-94-19C57:21:45 [facility] 2018-10-04 08:46:00 JOrlpqbohzw63790963OEKqk6lzoT/hLH0Ct8fnh 79bnFI6ruqYOU8yoz b+K1hN3Q9qe8q80c7B97MF4XKw0226-77-41N82:46:00 [facility] ([facility])Cardiovascular Surgery ProgREPORT#:[id number] REPORT STATUS: SignedDATE:10/04/18 TIME: 08 PATIENT: RACHEAL SABILLON UNIT #: [id number]#: [id number] [facility] AGE: 72 SEX: F ATTEND: Rohith Kc AUTHOR: Ladi Guido [employer]ING [employer] * ALL edits or amendments must be made on the electronic/computer document * GeneralPost-op: day 3Status post:Right CEA SubjectivePatient reports:No: complaints, nausea, vomiting, pain. Nursing reports:No: complaints. Comments:seen pt walking in the hallwaydenies SOB, CP, pain Review of SystemsConstitutional:Denies: chills, fatigue, fever, generalized weakness. Respiratory:Denies: NEGRO (dyspnea on exertion), SOB. Cardiovascular:Denies: chest pain, NEGRO (dyspnea on exertion), edema, orthopnea. Objective Physical ExamVS/I O:Last Documented: Result Date Time Pulse Ox 97 10/04 07 FiO2 21 10/04 07 O2 Delivery Room air 10/04 07 Temp 36.6 10/04 0400 B/P 151/74 10/03 1818 B/P Mean 103 10/03 1818 Pulse 96 10/03 1818 Resp 30 10/03 1818 O2 Flow Rate 2.363073 10/03 0715 24 hour I O ending at 0700: 10/04 0700 10/03 1900 Intake Total 120 1360.00 Output Total 600 200 Balance -480 1160.00 Intake, IV 500.00 Intake, Oral 120 860 Number Voids 3 Output, Urine 600 200 Patient Weight Weight (lb): 156Weight (oz): 3.65Weight (kg): 70.76 Medications:Active Meds + DC'd Last 24 HrsSodium Chloride 500 ML BOLUS ONCE ONE IV (DC) Famotidine 20 MG Q12HR PO Nifedipine 10 MG Q4H PRN PRN SL Aspirin 81 MG DAILY PO Clopidogrel Bisulfate 75 MG DAILY PO Hydrochlorothiazide 12.5 MG DAILY PO Isosorbide Mononitrate 30 MG DAILY PO Losartan Potassium 100 MG DAILY PO Metoprolol Succinate 100 MG DAILY PO Levothyroxine Sodium 100 MCG DAILY@0630 PO Atorvastatin Calcium 40 MG BEDTIME PO Mupirocin 1 APPLIC BID NASAL Potassium Chloride/Dextrose/Sod Cl 1,000 ML Q12H IV Acetaminophen/Codeine Phosphate 2 UDTAB Q4H PRN PRN PO Acetaminophen/Codeine Phosphate 1 UDTAB Q4H PRN PRN PO Meperidine HCl 25 MG Q4H PRN PRN IM Meperidine HCl 50 MG Q4H PRN PRN IM Acetaminophen 650 MG Q8H PRN PRN PO Acetaminophen 650 MG Q4H PRN PRN PO Benzocaine/Menthol 1 EACH Q2H PRN PRN MM (CKD) Bisacodyl 10 MG ASDIR PRN RECTAL Calcium Gluconate 1,000 MG ASDIR PRN IV Sodium Chloride 100 MLNicardipine HCl 25 MG ASDIR PRN IV Sodium Chloride 250 MLNifedipine 10 MG Q4H PRN PRN SL Ondansetron HCl 4 MG Q8H PRN PRN IV Phenol 5 SPRAY Q2H PRN PRN MM Potassium Chloride 10 MEQ ASDIR PRN PO Magnesium Hydroxide 30 ML ASDIR PRN PO Zolpidem Tartrate 5 MG BEDTIME PRN PRN PO General appearance: alert, awake, oriented, no acute distress, no respiratory distressWound/incision: Location: right lateral neck incision Site condition: dressing clean dry, dressing intactNeck: tenderness (right neck), Right neck swellingCardiovascular: BP/pulses equal bilat., normal heart sounds, regular rate rhythmRespiratory: aerating well, clear to auscultation, symmetric expansion, no distressAbdomen: soft, non-tender, normal bowel sounds, no distentionGenitourinary: no foleyExtremities: moves all, no edemaNeuro/HAZARDOUS MATERIALS TANKER DRIVER: alert, oriented X 3, CNII-XII intacte, normal gait, normal speech, nomotor deficits, no sensory deficits, Tongue is midline without deviation Diagnosis, Assessment PlanFree Text A P:This is a 72 Y/F with LITTLE stenosisS/p Right CEA-tongue is midline without deviation, left facial droop. Right mildfacial swellingOn statin/plavix/aspirinDVT prophylaxis-SCDs and TEDsEncourage IS and ambulationHTN- well controlledCM consult for [facility]: D/c planning [facility] today when VS is stable and pt is ready. Follwoup with Dr. Kc after 1-2 weeks in the clinic. Plan discussed with: patient, collaborating MD (DR. Kc) at 1921 at 1923 RPT #:[id number] OF REPORTPRProgress Ekho1153-06-62E67:46:00Z.VQFI01241256-8489JYNzacchqvb for patient uemaUYZQDDAPBSRQMP8702-68-47H67:23:36 [facility] 2018-10-04 08:33:00 SJheughhtmt14872121/e5mUhN2H/6UK9h4PvLps PEoFdgetJDcdFc8KB PZQ/kYthMVL3xUg6bY3J6eq/P+7522-38-93E91:33:002040-8143 [place] [address] PATIENT NAME: RACHEAL SABILLON ADMIT DATE: 09/30/18ACCOUNT NO: [id number] ROOM NO: [facility] AGE: 72 REPORT TYPE: ELECTROCARDIOGRAM SEX: F ADMITTING PHYSICIAN:Rohith Kc MD ATTENDING PHYSICIAN:Rohith Kc MD Order:[id number] Reason : CAD Test Date/Time Stamp:SatOct 04 2018 08:33:11Blood Pressure : / mmHGVent. Rate : 097 BPM Atrial Rate : 097 BPM P-R Int : 146 ms QRS Dur : 080 ms QT Int : 328 ms P-R-T Axes : 073 027 079 degrees QTc Int : 416 ms Normal sinus rhythmNormal ECGWhen compared with ECG of 01-OCT-2018 08:08,No significant change was foundConfirmed by JOSE MARC ([id number]) on 10/04/2018 10:11:09 AM Referred By: Rohith Kc Confirmed by:JOSE MARC at 1011 PATIENT NAME: RACHEAL SABILLON .[id number] ble for patient [id number]:11:35 [facility] 2018-10-04 06:13:00 [id number] nWAblRLeJIjFpLUjX [id number]/dKKhZHw6/[id number]:13:00 [facility] ([facility]ECardiology Progress NoteREPORT#:[id number] REPORT STATUS: SignedDATE:10/04/18 TIME: 612 PATIENT: RACHEAL SABILLON UNIT #: [id number]#: [id number] [address]: [address] AGE: 72 SEX: F ATTEND: Rohith Kc MDA AUTHOR: Jose Marc MD * ALL edits or amendments must be made on the electronic/computer document * SubjectiveChief Complaint:feels betterPatient reports:No: complaints, chest pain, palpitations, shortness of breath, swelling. Nursing reports:No: complaints. Objective GeneralVS/I O:24 hour I O ending at 0700: 10/04 0700 10/03 1900 Intake Total 1360.00 Output Total 200 Balance 1160.00 Intake, IV 500.00 Intake, Oral 860 Number Voids 3 Output, Urine 200 Vital Signs: Date Time Temp Pulse Resp B/P B/P Pulse O2 O2 Flow FiO2 Mean Ox Delivery Rate 10/03 2031 Room air 21 10/03 1900 97.8 10/03 1818 96 30 151/74 103 89 10/03 1803 99 21 178/93 128 93 10/03 1748 101 19 148/72 103 92 10/03 1733 96 21 153/75 107 95 10/03 1718 100 21 166/85 119 92 10/03 1707 140/85 106 10/03 1648 91 15 126/74 96 95 10/03 1633 88 16 129/69 92 90 10/03 1618 92 16 148/81 108 91 10/03 1603 87 15 142/75 104 94 10/03 1600 98.1 10/03 1548 85 19 141/75 99 95 10/03 1530 95 25 104/62 78 91 10/03 1528 103 31 116/67 83 92 10/03 1524 93 36 79/54 62 93 10/03 1522 85 18 71/48 56 91 10/03 1500 87 18 70/45 53 90 10/03 1430 92 21 87/53 64 90 10/03 1400 103 26 116/73 91 76 10/03 1337 98 22 134/67 93 90 10/03 1330 120 160/88 112 79 10/03 1300 92 21 147/81 108 93 10/03 1229 93 22 99/68 79 90 10/03 1200 98 22 92/55 69 91 10/03 1136 96 27 86 10/03 1115 94 22 94 10/03 1101 93 24 130/76 95 86 10/03 1043 98.1 91 Room air 10/03 1000 91 16 104/56 74 91 10/03 0900 94 23 142/80 103 97 10/03 0800 86 19 160/80 111 98 10/03 0730 79 15 99 10/03 0715 98.4 10/03 0715 Nasal 2.218704 cannula 10/03 0700 87 17 123/77 95 100 10/03 0630 85 15 100 Patient Weight Weight (lb): 156Weight (oz): 3.65Weight (kg): 70.76 Medications:Active Meds + DC'd Last 24 HrsSodium Chloride 500 ML BOLUS ONCE ONE IV (DC) Famotidine 20 MG Q12HR PO Nifedipine 10 MG Q4H PRN PRN SL Aspirin 81 MG DAILY PO Clopidogrel Bisulfate 75 MG DAILY PO Hydrochlorothiazide 12.5 MG DAILY PO Isosorbide Mononitrate 30 MG DAILY PO Losartan Potassium 100 MG DAILY PO Metoprolol Succinate 100 MG DAILY PO Levothyroxine Sodium 100 MCG DAILY@0630 PO Atorvastatin Calcium 40 MG BEDTIME PO Mupirocin 1 APPLIC BID NASAL Potassium Chloride/Dextrose/Sod Cl 1,000 ML Q12H IV Acetaminophen/Codeine Phosphate 2 UDTAB Q4H PRN PRN PO Acetaminophen/Codeine Phosphate 1 UDTAB Q4H PRN PRN PO Meperidine HCl 25 MG Q4H PRN PRN IM Meperidine HCl 50 MG Q4H PRN PRN IM Acetaminophen 650 MG Q8H PRN PRN PO Acetaminophen 650 MG Q4H PRN PRN PO Benzocaine/Menthol 1 EACH Q2H PRN PRN MM (CKD) Bisacodyl 10 MG ASDIR PRN RECTAL Calcium Gluconate 1,000 MG ASDIR PRN IV Sodium Chloride 100 MLNicardipine HCl 25 MG ASDIR PRN IV Sodium Chloride 250 MLNifedipine 10 MG Q4H PRN PRN SL Ondansetron HCl 4 MG Q8H PRN PRN IV Phenol 5 SPRAY Q2H PRN PRN MM Potassium Chloride 10 MEQ ASDIR PRN PO Magnesium Hydroxide 30 ML ASDIR PRN PO Zolpidem Tartrate 5 MG BEDTIME PRN PRN PO Status post:R CEA Physical ExamGeneral appearance: alert, awake, oriented, no acute distress, pleasant, conversational, mental status normal, no respiratory distressHead/Eyes: atraumatic, normocephalicENT: moist mucosal membranesNeck: no bruit/NL carotids (R CEA), no JVDCardiovascular: CV assessment: regular rate and rhythm, BP pulses = bilaterally, no murmurRespiratory: clear to auscultation, no distressAbdomen: soft, non-tender, no mass/organomegalyLower extremity: LE assessment: no edema, 2+ peripheral pulsesMusculoskeletal: full range of motionNeuro/HAZARDOUS MATERIALS TANKER DRIVER: alert, oriented X 3, CN II-XII intact, no motor deficitsSkin: dry, intactWound/incision: Site condition: dressing clean dryPsychiatry: normal affect, normal judgment/insight, normal mood, no hallucinations ResultsResults: labs reviewed, vital signs stable, EKG personally reviewed, rhythm personally rev'd, current med profile rev'dEKG Interpretation: normal sinus rhythmTelemetry Interpretation:ST Diagnosis, Assessment PlanConsultants: cardiovascular surgeryCode status: full codePlan discussed with: patient, patient care team, nurse Free Text DxA P NotesFree Text DxA P Notes:IMP: Carotid vascular disease s/p right CEA CAD - stable HTN HLP sinus tachycardia PLAN: Ambulate Continue current medications Home today at [address] [facility] #:[id number] OF REPORTPRProgress Zzig2166-92-00U36:13:00Z.[id number] for patient lhtgGJBDLRADVHQIJZ8596-23-68D82:21:58 [facility] 2018-10-03 17:54:00 [id number]+BhnSORIRfNhUzrQbi GhXOnhkWpEHosNnBX QD6JcaLTPykimMZ2ySkmvTcUac8697-77-91P06:54:00 [facility] ([facility])Hospitalist Progress NoteREPORT#:[id number] REPORT STATUS: SignedDATE:10/03/18 TIME: 1753 PATIENT: RACHEAL SABILLON UNIT #: [id number]#: [id number] [address]: [address] AGE: 72 SEX: F ATTEND: Rohith Kc AUTHOR: Mariana Humphrey MD * ALL edits or amendments must be made on the electronic/computer document * SubjectiveChief Complaint:patient is doing well. Review of SystemsAll systems rev neg: except as marked Objective Physical ExamHead/Eyes: EOMI, PERRLNeck: right side of neck dressing intactCardiovascular: normal heart sounds, regular rate rhythmRespiratory: aerating well, clear to auscultationAbdomen: non-tender, normal bowel soundsMusculoskeletal: normal inspectionPsychiatry: normal affect, normal judgment/insight Diagnosis, Assessment Plan Free Text DxA P NotesFree text DxA P notes: Diagnosis, Assessment Plan pt is 72 y/o female with h/o CAD and stent , HTN, HLD, hypothyroidism underwent Procedures performed:Right carotid endarterectomy with hemashield patch arterioplasty. pt is admitted for post op care. plan: contienu treatment per dr kc and monitor clinical recovery. 10/01/18: blood pressure became uncontrolled requiring restarting of nicardipine drip. resume home medications and monitor for bp control. 10/02/18: patient is doing better, ambulating in hallway. blood pressure is better controlled. transfer out of icu. 10/03/18: patient is doing well. pt is getting discharge home with home myrna. Quality MedicationsCurrent medication review:I attest that the foregoing medication list in the medical record is true, accurate, and complete to the best of my knowledge. Advanced Care Plan 65 or OlderDiscussed with: patient, surrogate decis. makerDiscussion included: code status (full code) Tobacco Use/CounselingTobacco use/counseling: non tobacco user HTN Screening/Follow-upB/P assess/follow-up: pre-existing hx of HTN at 1312 RPT #:[id number] OF REPORTPRProgress Bpno5720-37-63J06:54:00Z.[id number] for patient uexyQINNKOJOOANCPE7161-60-05X94:12:39 [facility] 2018-10-03 11:59:00 [id number] +JsZATWbkHRaesYwa 2OqOamDUzFDuGV5XGRzVpxUQ528156-60-85H40:59:00 [facility] ([facility])Cardiovascular Surgery ProgREPORT#:[id number] REPORT STATUS: SignedDATE:10/03/18 TIME: 1159 PATIENT: RACHEAL SABILLON UNIT #: [id number]#: [id number] [address] AGE: 72 SEX: F ATTEND: Rohith Kc [facility] AUTHOR: Ladi Guido CHEMICAL PROCESSING LABORER * ALL edits or amendments must be made on the electronic/computer document * GeneralPost-op: day 2Status post:Right CEA SubjectivePatient reports:No: complaints, nausea, vomiting, pain. Nursing reports:No: complaints. Comments:seen pt OOB in the chairdenies SOB, CP, pain Review of SystemsConstitutional:Denies: chills, fatigue, fever, generalized weakness. Respiratory:Denies: NEGRO (dyspnea on exertion), SOB. Cardiovascular:Denies: chest pain, NEGRO (dyspnea on exertion), edema, orthopnea. Objective Physical ExamVS/I O:Last Documented: Result Date Time Pulse Ox 86 10/03 1136 Pulse 96 10/03 1136 Resp 27 10/03 1136 B/P 130/76 10/03 1101 B/P Mean 95 06/21 1101 O2 Delivery Room air 10/03 1043 Temp 36.7 10/03 1043 O2 Flow Rate 2.396423 10/03 0715 FiO2 28 10/02 2005 24 hour I O ending at 0700: 10/03 0700 10/02 1900 Intake Total 160 315 Output Total Balance 160 315 Intake, Oral 160 315 Number Voids 6 3 Patient Weight Weight (lb): 156Weight (oz): 3.65Weight (kg): 70.76 Medications:Active Meds + DC'd Last 24 HrsFamotidine 20 MG Q12HR PO Nifedipine 10 MG Q4H PRN PRN SL Aspirin 81 MG DAILY PO Clopidogrel Bisulfate 75 MG DAILY PO Hydrochlorothiazide 12.5 MG DAILY PO Isosorbide Mononitrate 30 MG DAILY PO Losartan Potassium 100 MG DAILY PO Metoprolol Succinate 100 MG DAILY PO Levothyroxine Sodium 100 MCG DAILY@0630 PO Atorvastatin Calcium 40 MG BEDTIME PO Mupirocin 1 APPLIC BID NASAL Potassium Chloride/Dextrose/Sod Cl 1,000 ML Q12H IV Acetaminophen/Codeine Phosphate 2 UDTAB Q4H PRN PRN PO Acetaminophen/Codeine Phosphate 1 UDTAB Q4H PRN PRN PO Meperidine HCl 25 MG Q4H PRN PRN IM Meperidine HCl 50 MG Q4H PRN PRN IM Acetaminophen 650 MG Q8H PRN PRN PO Acetaminophen 650 MG Q4H PRN PRN PO Benzocaine/Menthol 1 EACH Q2H PRN PRN MM (CKD) Bisacodyl 10 MG ASDIR PRN RECTAL Calcium Gluconate 1,000 MG ASDIR PRN IV Sodium Chloride 100 MLNicardipine HCl 25 MG ASDIR PRN IV Sodium Chloride 250 MLNifedipine 10 MG Q4H PRN PRN SL Ondansetron HCl 4 MG Q8H PRN PRN IV Phenol 5 SPRAY Q2H PRN PRN MM Potassium Chloride 10 MEQ ASDIR PRN PO Magnesium Hydroxide 30 ML ASDIR PRN PO Zolpidem Tartrate 5 MG BEDTIME PRN PRN PO General appearance: alert, awake, oriented, no acute distressWound/incision: Location: right lateral neck incision Site condition: dressing clean dry, dressing intact, mild swellingNeck: tenderness (right neck), Right neck swellingCardiovascular: BP/pulses equal bilat., normal heart sounds, regular rate rhythmRespiratory: aerating well, clear to auscultation, symmetric expansion, no distressAbdomen: soft, non-tender, normal bowel sounds, no distentionGenitourinary: no foleyExtremities: moves all, no edemaNeuro/HAZARDOUS MATERIALS TANKER DRIVER: alert, oriented X 3, CNII-XII intacte, normal gait, normal speech, nomotor deficits, no sensory deficits, Tongue is midline without deviation ResultsFindings/Data:Laboratory Tests 10/04 419 Chemistry Sodium (137 - 145 MMOL/L) 137 Potassium (3.5 - 5.1 MMOL/L) 3.8 Chloride (98 [...] (Auto) (14 - 44 %) 10.5 L [place] % (Auto) (4 - 13 %) 12.9 Eos % (Auto) (0 - 6 %) 0.5 Baso % (Auto) (0 - 2 %) 0.2 Neut # (Auto) (2.0 - 7.6 K/mm3) 9.00 H Lymph # (Auto) (1.0 - 3.8 K/mm3) 1.25 [place] # (Auto) (0.1 - 0.8 K/mm3) 1.54 H Eos # (Auto) (0.0 - 0.2 K/mm3) 0.06 Baso # (Auto) (0.0 - 0.2 K/mm3) 0.02 Immature Gran % (0.0 - 2.0 %) 0.3 Nucleated RBC % (0 - 1.0 %) 0.0 Nucleated RBCs # (Man) (0.0 - 0.1 K/mm3) 0.00 Diagnosis, Assessment PlanFree Text A P:This is a 72 Y/F with LITTLE stenosisS/p Right CEA-tongue is midline without deviation, left facial droop. Right facial swellingOn statin/plavix/aspirinDVT prophylaxis-SCDs and TEDsEncourage IS and ambulationHTN- well controlledCM consult [facility]: D/c planning home [facility] today or dexter. when VS is stable and pt is ready.RN reported that pt desaturate to O2 sat 90%'s-95%'s while resting. Then after walking she desat 90%'s. While sleeping pt O2 sat running between 88%-92%. Consulted CM for home oxygen to go home with. CM is following. Discussed with Dr. Kc. Plan discussed with: patient, collaborating MD (Dr. Kc) at 1236 RPT #:[id number] OF REPORTPRProgress Icme8422-00-95R64:59:00Z.[id number] for patient nuhaXVISMAMDTTOLWE1446-75-67T39:36:34 [facility] 2018-10-03 11:59:00 [id number]/ 2B18wmu898M1cFNYr 4Zzo8qVqpaMCR4KY6dfX9w7DG68806-61-66Z16:59:00 [facility] ([facility])Cardiovascular Surgery ProgREPORT#:[id number] REPORT STATUS: SignedDATE:10/03/18 TIME: 1159 PATIENT: RACHEAL SABILLON UNIT #: [id number]#: [id number] [address]QTD[address]: [address] AGE: 72 SEX: F ATTEND: Rohith Kc [facility] AUTHOR: Ladi Guido CHEMICAL PROCESSING LABORER * ALL edits or amendments must be made on the electronic/computer document * See AddendumGeneralPost-op: day 2Status post:Right CEA SubjectivePatient reports:No: complaints, nausea, vomiting, pain. Nursing reports:No: complaints. Comments:seen pt OOB in the chairdenies SOB, CP, pain Review of SystemsConstitutional:Denies: chills, fatigue, fever, generalized weakness. Respiratory:Denies: NEGRO (dyspnea on exertion), SOB. Cardiovascular:Denies: chest pain, NEGRO (dyspnea on exertion), edema, orthopnea. Objective Physical ExamVS/I O:Last Documented: Result Date Time Pulse Ox 86 10/03 1136 Pulse 96 10/03 1136 Resp 27 10/03 1136 B/P 130/76 10/03 1101 B/P Mean 95 10/03 1101 O2 Delivery Room air 10/03 1043 Temp 36.7 10/03 1043 O2 Flow Rate 2.438627 10/03 0715 FiO2 28 10/02 2005 24 hour I O ending at 0700: 10/03 0700 10/02 1900 Intake Total 160 315 Output Total Balance 160 315 Intake, Oral 160 315 Number Voids 6 3 Patient Weight Weight (lb): 156Weight (oz): 3.65Weight (kg): 70.76 Medications:Active Meds + DC'd Last 24 HrsFamotidine 20 MG Q12HR PO Nifedipine 10 MG Q4H PRN PRN SL Aspirin 81 MG DAILY PO Clopidogrel Bisulfate 75 MG DAILY PO Hydrochlorothiazide 12.5 MG DAILY PO Isosorbide Mononitrate 30 MG DAILY PO Losartan Potassium 100 MG DAILY PO Metoprolol Succinate 100 MG DAILY PO Levothyroxine Sodium 100 MCG DAILY@0630 PO Atorvastatin Calcium 40 MG BEDTIME PO Mupirocin 1 APPLIC BID NASAL Potassium Chloride/Dextrose/Sod Cl 1,000 ML Q12H IV Acetaminophen/Codeine Phosphate 2 UDTAB Q4H PRN PRN PO Acetaminophen/Codeine Phosphate 1 UDTAB Q4H PRN PRN PO Meperidine HCl 25 MG Q4H PRN PRN IM Meperidine HCl 50 MG Q4H PRN PRN IM Acetaminophen 650 MG Q8H PRN PRN PO Acetaminophen 650 MG Q4H PRN PRN PO Benzocaine/Menthol 1 EACH Q2H PRN PRN MM (CKD) Bisacodyl 10 MG ASDIR PRN RECTAL Calcium Gluconate 1,000 MG ASDIR PRN IV Sodium Chloride 100 MLNicardipine HCl 25 MG ASDIR PRN IV Sodium Chloride 250 MLNifedipine 10 MG Q4H PRN PRN SL Ondansetron HCl 4 MG Q8H PRN PRN IV Phenol 5 SPRAY Q2H PRN PRN MM Potassium Chloride 10 MEQ ASDIR PRN PO Magnesium Hydroxide 30 ML ASDIR PRN PO Zolpidem Tartrate 5 MG BEDTIME PRN PRN PO General appearance: alert, awake, oriented, no acute distressWound/incision: Location: right lateral neck incision Site condition: dressing clean dry, dressing intact, mild swellingNeck: tenderness (right neck), Right neck swellingCardiovascular: BP/pulses equal bilat., normal heart sounds, regular rate rhythmRespiratory: aerating well, clear to auscultation, symmetric expansion, no distressAbdomen: soft, non-tender, normal bowel sounds, no distentionGenitourinary: no foleyExtremities: moves all, no edemaNeuro/HAZARDOUS MATERIALS TANKER DRIVER: alert, oriented X 3, CNII-XII intacte, normal gait, normal speech, nomotor deficits, no sensory deficits, Tongue is midline without deviation ResultsFindings/Data:Laboratory Tests 10/03 0420 Chemistry Sodium (137 - 145 MMOL/L) 137 Potassium (3.5 - 5.1 MMOL/L) 3.8 Chloride (98 [...] (Auto) (14 - 44 %) 10.5 L [place] % (Auto) (4 - 13 %) 12.9 Eos % (Auto) (0 - 6 %) 0.5 Baso % (Auto) (0 - 2 %) 0.2 Neut # (Auto) (2.0 - 7.6 K/mm3) 9.00 H Lymph # (Auto) (1.0 - 3.8 K/mm3) 1.25 [place] # (Auto) (0.1 - 0.8 K/mm3) 1.54 H Eos # (Auto) (0.0 - 0.2 K/mm3) 0.06 Baso # (Auto) (0.0 - 0.2 K/mm3) 0.02 Immature Gran % (0.0 - 2.0 %) 0.3 Nucleated RBC % (0 - 1.0 %) 0.0 Nucleated RBCs # (Man) (0.0 - 0.1 K/mm3) 0.00 Diagnosis, Assessment PlanFree Text A P:This is a 72 Y/F with LITTLE stenosisS/p Right CEA-tongue is midline without deviation, left facial droop. Right facial swellingOn statin/plavix/aspirinDVT prophylaxis-SCDs and TEDsEncourage IS and ambulationHTN- well controlledCM consult for [facility]: D/c planning home [facility] today or dexter. when VS is stable and pt is ready.RN reported that pt desaturate to O2 sat 90%'s-95%'s while resting. Then after walking she desat 90%'s. While sleeping pt O2 sat running between 88%-92%. Consulted CM for home oxygen to go home with. CM is following. Discussed with Dr. Kc. Plan discussed with: patient, collaborating MD (Dr. Kc) at 1236 Addendum 1: 10/03/18 1541 by Ladi Guido CHEMICAL PROCESSING LABORER for Rohith Kc MD 1520RN reported pt BP dropped SBP 80's-70's pt is asymptomatic, denies CP, dizzinessor headache. Ordered IV bolus NSS. BP came back up to 116/78. Will continue to monitor. Family at the bedside. Will hold the plan for discharge today. Discussed with Dr. Kc. at 1543 RPT #:[id number] OF REPORTPRProgress Bnpk2835-49-85D97:59:00Z.[id number] for patient okvsGIIETJHNQJYIIF9305-38-79F65:43:28 [facility] 2018-10-03 11:59:00 [id number] RXjWkCqHPVv4S+55P Y/c3A/D/tt/AsNWKnT4t4ZL7vU8865-52-11A73:59:00 [facility] ([facility])Cardiovascular Surgery ProgREPORT#:[id number] REPORT STATUS: SignedDATE:10/03/18 TIME: 1159 PATIENT: RACHEAL SABILLON UNIT #: [id number]#: [id number] [address]-PJLZ: 46 AGE: 72 SEX: F ATTEND: Rohith Kc AUTHOR: Ladi Guido NP * ALL edits or amendments must be made on the electronic/computer document * See AddendumGeneralPost-op: day 2Status post:Right CEA SubjectivePatient reports:No: complaints, nausea, vomiting, pain. Nursing reports:No: complaints. Comments:seen pt OOB in the chairdenies SOB, CP, pain Review of SystemsConstitutional:Denies: chills, fatigue, fever, generalized weakness. Respiratory:Denies: NEGRO (dyspnea on exertion), SOB. Cardiovascular:Denies: chest pain, NEGRO (dyspnea on exertion), edema, orthopnea. Objective Physical ExamVS/I O:Last Documented: Result Date Time Pulse Ox 86 10/03 1136 Pulse 96 10/03 1136 Resp 27 10/03 1136 B/P 130/76 10/03 1101 B/P Mean 95 10/03 1101 O2 Delivery Room air 10/03 1043 Temp 36.7 10/03 1043 O2 Flow Rate 2.287978 10/03 0715 FiO2 28 10/02 2005 24 hour I O ending at 0700: 10/03 0700 10/02 1900 Intake Total 160 315 Output Total Balance 160 315 Intake, Oral 160 315 Number Voids 6 3 Patient Weight Weight (lb): 156Weight (oz): 3.65Weight (kg): 70.76 Medications:Active Meds + DC'd Last 24 HrsFamotidine 20 MG Q12HR PO Nifedipine 10 MG Q4H PRN PRN SL Aspirin 81 MG DAILY PO Clopidogrel Bisulfate 75 MG DAILY PO Hydrochlorothiazide 12.5 MG DAILY PO Isosorbide Mononitrate 30 MG DAILY PO Losartan Potassium 100 MG DAILY PO Metoprolol Succinate 100 MG DAILY PO Levothyroxine Sodium 100 MCG DAILY@0630 PO Atorvastatin Calcium 40 MG BEDTIME PO Mupirocin 1 APPLIC BID NASAL Potassium Chloride/Dextrose/Sod Cl 1,000 ML Q12H IV Acetaminophen/Codeine Phosphate 2 UDTAB Q4H PRN PRN PO Acetaminophen/Codeine Phosphate 1 UDTAB Q4H PRN PRN PO Meperidine HCl 25 MG Q4H PRN PRN IM Meperidine HCl 50 MG Q4H PRN PRN IM Acetaminophen 650 MG Q8H PRN PRN PO Acetaminophen 650 MG Q4H PRN PRN PO Benzocaine/Menthol 1 EACH Q2H PRN PRN MM (CKD) Bisacodyl 10 MG ASDIR PRN RECTAL Calcium Gluconate 1,000 MG ASDIR PRN IV Sodium Chloride 100 MLNicardipine HCl 25 MG ASDIR PRN IV Sodium Chloride 250 MLNifedipine 10 MG Q4H PRN PRN SL Ondansetron HCl 4 MG Q8H PRN PRN IV Phenol 5 SPRAY Q2H PRN PRN MM Potassium Chloride 10 MEQ ASDIR PRN PO Magnesium Hydroxide 30 ML ASDIR PRN PO Zolpidem Tartrate 5 MG BEDTIME PRN PRN PO General appearance: alert, awake, oriented, no acute distressWound/incision: Location: right lateral neck incision Site condition: dressing clean dry, dressing intact, mild swellingNeck: tenderness (right neck), Right neck swellingCardiovascular: BP/pulses equal bilat., normal heart sounds, regular rate rhythmRespiratory: aerating well, clear to auscultation, symmetric expansion, no distressAbdomen: soft, non-tender, normal bowel sounds, no distentionGenitourinary: no foleyExtremities: moves all, no edemaNeuro/HAZARDOUS MATERIALS TANKER DRIVER: alert, oriented X 3, CNII-XII intacte, normal gait, normal speech, nomotor deficits, no sensory deficits, Tongue is midline without deviation ResultsFindings/Data:Laboratory Tests 10/04 419 Chemistry Sodium (137 - 145 MMOL/L) 137 Potassium (3.5 - 5.1 MMOL/L) 3.8 Chloride (98 [...] (Auto) (14 - 44 %) 10.5 L [place] % (Auto) (4 - 13 %) 12.9 Eos % (Auto) (0 - 6 %) 0.5 Baso % (Auto) (0 - 2 %) 0.2 Neut # (Auto) (2.0 - 7.6 K/mm3) 9.00 H Lymph # (Auto) (1.0 - 3.8 K/mm3) 1.25 [place] # (Auto) (0.1 - 0.8 K/mm3) 1.54 H Eos # (Auto) (0.0 - 0.2 K/mm3) 0.06 Baso # (Auto) (0.0 - 0.2 K/mm3) 0.02 Immature Gran % (0.0 - 2.0 %) 0.3 Nucleated RBC % (0 - 1.0 %) 0.0 Nucleated RBCs # (Man) (0.0 - 0.1 K/mm3) 0.00 Diagnosis, Assessment PlanFree Text A P:This is a 72 Y/F with LITTLE stenosisS/p Right CEA-tongue is midline without deviation, left facial droop. Right facial swellingOn statin/plavix/aspirinDVT prophylaxis-SCDs and TEDsEncourage IS and ambulationHTN- well controlledCM consult for [facility]: D/c planning home [facility] today or dexter. when VS is stable and pt is ready.RN reported that pt desaturate to O2 sat 90%'s-95%'s while resting. Then after walking she desat 90%'s. While sleeping pt O2 sat running between 88%-92%. Consulted CM for home oxygen to go home with. CM is following. Discussed with Dr. Kc. Plan discussed with: patient, collaborating MD (Dr. Kc) at 1236 Addendum 1: 10/03/18 1541 by Ladi Guido NP for Rohith Kc MD 1520RN reported pt BP dropped SBP 80's-70's pt is asymptomatic, denies CP, dizzinessor headache. Ordered IV bolus NSS. BP came back up to 116/78. Will continue to monitor. Family at the bedside. Will hold the plan for discharge today. Discussed with Dr. Kc. at 1543 Addendum 2: 10/03/18 1622 by Ladi Guido CHEMICAL PROCESSING LABORER for Rohith Kc MD at 1623 RPT #:[id number] OF REPORTPRProgress Fmad1231-99-68D26:59:00Z.[id number] for patient zkbyVVRSFCHMGVPJRF8311-72-60Y31:23:21 [facility] 2018-10-03 11:59:00 [id number]+RRTrNZEKltf 0F2GddyhxHgKCtqGK 61V5Fbi+olE28k7LUrTRzZrl0I0068-01-45E53:59:00 [facility])Cardiovascular Surgery ProgREPORT#:[id number] REPORT STATUS: SignedDATE:10/03/18 TIME: 1159 PATIENT: RACHEAL SABILLON UNIT #: [id number]#: [id number] [address]GPOE: [address] AGE: 72 SEX: F ATTEND: Rohith Kc MDADM AUTHOR: Ladi Guido CHEMICAL PROCESSING LABORER * ALL edits or amendments must be made on the electronic/computer document * See AddendumGeneralPost-op: day 2Status post:Right CEA SubjectivePatient reports:No: complaints, nausea, vomiting, pain. Nursing reports:No: complaints. Comments:seen pt OOB in the chairdenies SOB, CP, pain Review of SystemsConstitutional:Denies: chills, fatigue, fever, generalized weakness. Respiratory:Denies: NEGRO (dyspnea on exertion), SOB. Cardiovascular:Denies: chest pain, NEGRO (dyspnea on exertion), edema, orthopnea. Objective Physical ExamVS/I O:Last Documented: Result Date Time Pulse Ox 86 10/03 1136 Pulse 96 10/03 1136 Resp 27 10/03 1136 B/P 130/76 10/03 1101 B/P Mean 95 10/03 1101 O2 Delivery Room air 10/03 1043 Temp 36.7 10/03 1043 O2 Flow Rate 2.474907 10/03 0715 FiO2 28 10/02 2005 24 hour I O ending at 0700: 10/03 0700 10/02 1900 Intake Total 160 315 Output Total Balance 160 315 Intake, Oral 160 315 Number Voids 6 3 Patient Weight Weight (lb): 156Weight (oz): 3.65Weight (kg): 70.76 Medications:Active Meds + DC'd Last 24 HrsFamotidine 20 MG Q12HR PO Nifedipine 10 MG Q4H PRN PRN SL Aspirin 81 MG DAILY PO Clopidogrel Bisulfate 75 MG DAILY PO Hydrochlorothiazide 12.5 MG DAILY PO Isosorbide Mononitrate 30 MG DAILY PO Losartan Potassium 100 MG DAILY PO Metoprolol Succinate 100 MG DAILY PO Levothyroxine Sodium 100 MCG DAILY@0630 PO Atorvastatin Calcium 40 MG BEDTIME PO Mupirocin 1 APPLIC BID NASAL Potassium Chloride/Dextrose/Sod Cl 1,000 ML Q12H IV Acetaminophen/Codeine Phosphate 2 UDTAB Q4H PRN PRN PO Acetaminophen/Codeine Phosphate 1 UDTAB Q4H PRN PRN PO Meperidine HCl 25 MG Q4H PRN PRN IM Meperidine HCl 50 MG Q4H PRN PRN IM Acetaminophen 650 MG Q8H PRN PRN PO Acetaminophen 650 MG Q4H PRN PRN PO Benzocaine/Menthol 1 EACH Q2H PRN PRN MM (CKD) Bisacodyl 10 MG ASDIR PRN RECTAL Calcium Gluconate 1,000 MG ASDIR PRN IV Sodium Chloride 100 MLNicardipine HCl 25 MG ASDIR PRN IV Sodium Chloride 250 MLNifedipine 10 MG Q4H PRN PRN SL Ondansetron HCl 4 MG Q8H PRN PRN IV Phenol 5 SPRAY Q2H PRN PRN MM Potassium Chloride 10 MEQ ASDIR PRN PO Magnesium Hydroxide 30 ML ASDIR PRN PO Zolpidem Tartrate 5 MG BEDTIME PRN PRN PO General appearance: alert, awake, oriented, no acute distressWound/incision: Location: right lateral neck incision Site condition: dressing clean dry, dressing intact, mild swellingNeck: tenderness (right neck), Right neck swellingCardiovascular: BP/pulses equal bilat., normal heart sounds, regular rate rhythmRespiratory: aerating well, clear to auscultation, symmetric expansion, no distressAbdomen: soft, non-tender, normal bowel sounds, no distentionGenitourinary: no foleyExtremities: moves all, no edemaNeuro/HAZARDOUS MATERIALS TANKER DRIVER: alert, oriented X 3, CNII-XII intacte, normal gait, normal speech, nomotor deficits, no sensory deficits, Tongue is midline without deviation ResultsFindings/Data:Laboratory Tests 10/03 0420 Chemistry Sodium (137 - 145 MMOL/L) 137 Potassium (3.5 - 5.1 MMOL/L) 3.8 Chloride (98 [...] (Auto) (14 - 44 %) 10.5 L [place] % (Auto) (4 - 13 %) 12.9 Eos % (Auto) (0 - 6 %) 0.5 Baso % (Auto) (0 - 2 %) 0.2 Neut # (Auto) (2.0 - 7.6 K/mm3) 9.00 H Lymph # (Auto) (1.0 - 3.8 K/mm3) 1.25 [place] # (Auto) (0.1 - 0.8 K/mm3) 1.54 H Eos # (Auto) (0.0 - 0.2 K/mm3) 0.06 Baso # (Auto) (0.0 - 0.2 K/mm3) 0.02 Immature Gran % (0.0 - 2.0 %) 0.3 Nucleated RBC % (0 - 1.0 %) 0.0 Nucleated RBCs # (Man) (0.0 - 0.1 K/mm3) 0.00 Diagnosis, Assessment PlanFree Text A P:This is a 72 Y/F with LITTLE stenosisS/p Right CEA-tongue is midline without deviation, left facial droop. Right facial swellingOn statin/plavix/aspirinDVT prophylaxis-SCDs and TEDsEncourage IS and ambulationHTN- well controlledCM consult [facility]: D/c planning [facility] today or dexter. when VS is stable and pt is ready.RN reported that pt desaturate to O2 sat 90%'s-95%'s while resting. Then after walking she desat 90%'s. While sleeping pt O2 sat running between 88%-92%. Consulted CM for home oxygen to go home with. CM is following. Discussed with Dr. Kc. Plan discussed with: patient, collaborating MD (Dr. Kc) at 1236 Addendum 1: 10/03/18 1541 by Ladi Guido CHEMICAL PROCESSING LABORER 1520RN reported pt BP dropped SBP 80's-70's pt is asymptomatic, denies CP, dizzinessor headache. Ordered IV bolus NSS. BP came back up to 116/78. Will continue to monitor. Family at the bedside. Will hold the plan for discharge today. Discussed with Dr. Kc. at 1543 at 1927 Addendum 2: 10/03/18 1622 by Ladi Guido NP at 1623 at 1927 RPT #:[id number] OF REPORTPRProgress [id number]:59:00Z.[id number] for patient agsjXGWXDAOOZVJVRM8714-42-61N04:28:07 [facility] 2018-10-03 11:59:00 [id number] 361D6MjMxur+WnAV1 XPXgU1OHPQd8aqZcuernMBRS8f6548-64-72L84:59:00 [facility] ([facility])Cardiovascular Surgery ProgREPORT#:[id number] REPORT STATUS: SignedDATE:10/03/18 TIME: 1159 PATIENT: RACHEAL SABILLON UNIT #: [id number]#: [id number] [address]QGZG: [address] AGE: 72 SEX: F ATTEND: Rohith Kc MDADM AUTHOR: Ladi Guido NP * ALL edits or amendments must be made on the electronic/computer document * See AddendumGeneralPost-op: day 2Status post:Right CEA SubjectivePatient reports:No: complaints, nausea, vomiting, pain. Nursing reports:No: complaints. Comments:seen pt OOB in the chairdenies SOB, CP, pain Review of SystemsConstitutional:Denies: chills, fatigue, fever, generalized weakness. Respiratory:Denies: NEGRO (dyspnea on exertion), SOB. Cardiovascular:Denies: chest pain, NEGRO (dyspnea on exertion), edema, orthopnea. Objective Physical ExamVS/I O:Last Documented: Result Date Time Pulse Ox 86 10/03 1136 Pulse 96 10/03 1136 Resp 27 10/03 1136 B/P 130/76 10/03 1101 B/P Mean 95 10/03 1101 O2 Delivery Room air 10/03 1043 Temp 36.7 10/03 1043 O2 Flow Rate 2.026586 10/03 0715 FiO2 28 10/02 2005 24 hour I O ending at 0700: 10/03 0700 10/02 1900 Intake Total 160 315 Output Total Balance 160 315 Intake, Oral 160 315 Number Voids 6 3 Patient Weight Weight (lb): 156Weight (oz): 3.65Weight (kg): 70.76 Medications:Active Meds + DC'd Last 24 HrsFamotidine 20 MG Q12HR PO Nifedipine 10 MG Q4H PRN PRN SL Aspirin 81 MG DAILY PO Clopidogrel Bisulfate 75 MG DAILY PO Hydrochlorothiazide 12.5 MG DAILY PO Isosorbide Mononitrate 30 MG DAILY PO Losartan Potassium 100 MG DAILY PO Metoprolol Succinate 100 MG DAILY PO Levothyroxine Sodium 100 MCG DAILY@0630 PO Atorvastatin Calcium 40 MG BEDTIME PO Mupirocin 1 APPLIC BID NASAL Potassium Chloride/Dextrose/Sod Cl 1,000 ML Q12H IV Acetaminophen/Codeine Phosphate 2 UDTAB Q4H PRN PRN PO Acetaminophen/Codeine Phosphate 1 UDTAB Q4H PRN PRN PO Meperidine HCl 25 MG Q4H PRN PRN IM Meperidine HCl 50 MG Q4H PRN PRN IM Acetaminophen 650 MG Q8H PRN PRN PO Acetaminophen 650 MG Q4H PRN PRN PO Benzocaine/Menthol 1 EACH Q2H PRN PRN MM (CKD) Bisacodyl 10 MG ASDIR PRN RECTAL Calcium Gluconate 1,000 MG ASDIR PRN IV Sodium Chloride 100 MLNicardipine HCl 25 MG ASDIR PRN IV Sodium Chloride 250 MLNifedipine 10 MG Q4H PRN PRN SL Ondansetron HCl 4 MG Q8H PRN PRN IV Phenol 5 SPRAY Q2H PRN PRN MM Potassium Chloride 10 MEQ ASDIR PRN PO Magnesium Hydroxide 30 ML ASDIR PRN PO Zolpidem Tartrate 5 MG BEDTIME PRN PRN PO General appearance: alert, awake, oriented, no acute distressWound/incision: Location: right lateral neck incision Site condition: dressing clean dry, dressing intact, mild swellingNeck: tenderness (right neck), Right neck swellingCardiovascular: BP/pulses equal bilat., normal heart sounds, regular rate rhythmRespiratory: aerating well, clear to auscultation, symmetric expansion, no distressAbdomen: soft, non-tender, normal bowel sounds, no distentionGenitourinary: no foleyExtremities: moves all, no edemaNeuro/HAZARDOUS MATERIALS TANKER DRIVER: alert, oriented X 3, CNII-XII intacte, normal gait, normal speech, nomotor deficits, no sensory deficits, Tongue is midline without deviation ResultsFindings/Data:Laboratory Tests 10/04 419 Chemistry Sodium (137 - 145 MMOL/L) 137 Potassium (3.5 - 5.1 MMOL/L) 3.8 Chloride (98 [...] (Auto) (14 - 44 %) 10.5 L [place] % (Auto) (4 - 13 %) 12.9 Eos % (Auto) (0 - 6 %) 0.5 Baso % (Auto) (0 - 2 %) 0.2 Neut # (Auto) (2.0 - 7.6 K/mm3) 9.00 H Lymph # (Auto) (1.0 - 3.8 K/mm3) 1.25 [place] # (Auto) (0.1 - 0.8 K/mm3) 1.54 H Eos # (Auto) (0.0 - 0.2 K/mm3) 0.06 Baso # (Auto) (0.0 - 0.2 K/mm3) 0.02 Immature Gran % (0.0 - 2.0 %) 0.3 Nucleated RBC % (0 - 1.0 %) 0.0 Nucleated RBCs # (Man) (0.0 - 0.1 K/mm3) 0.00 Diagnosis, Assessment PlanFree Text A P:This is a 72 Y/F with LITTLE stenosisS/p Right CEA-tongue is midline without deviation, left facial droop. Right facial swellingOn statin/plavix/aspirinDVT prophylaxis-SCDs and TEDsEncourage IS and ambulationHTN- well controlledCM consult for [facility]: D/c planning home [facility] today or dexter. when VS is stable and pt is ready.RN reported that pt desaturate to O2 sat 90%'s-95%'s while resting. Then after walking she desat 90%'s. While sleeping pt O2 sat running between 88%-92%. Consulted CM for home oxygen to go home with. CM is following. Discussed with Dr. Kc. Plan discussed with: patient, collaborating MD (Dr. Kc) at 1236 at 1931 Addendum 1: 10/03/18 1541 by Ladi Guido NP 1520RN reported pt BP dropped SBP 80's-70's pt is asymptomatic, denies CP, dizzinessor headache. Ordered IV bolus NSS. BP came back up to 116/78. Will continue to monitor. Family at the bedside. Will hold the plan for discharge today. Discussed with Dr. Kc. at 1543 at 1927 Addendum 2: 10/03/18 1622 by Ladi Guido CHEMICAL PROCESSING LABORER at 1623 at 1927 RPT #:[id number] OF REPORTPRProgress Kgdq9585-22-73Q69:59:00Z.[id number] for patient rvqdXUVIKGLCHIPORP6667-27-82N17:31:57 [facility] 2018-10-02 18:27:00 [id number] p7MZSJjTcpahSZ+g6 t2+KYUS2Xo7bK71jC7iNrE0WiU7146-90-79F20:27:00 [facility] TexasCard[facility] Progress NoteREPORT#:[id number] REPORT STATUS: SignedDATE:10/02/18 TIME: 1826 PATIENT: RACHEAL SABILLON UNIT #: [id number]#: [id number] [address]-YKEI: [address] AGE: 72 SEX: F ATTEND: Rohith Kc MDADM AUTHOR: Supa Kelly MD * ALL edits or amendments must be made on the electronic/computer document * SubjectivePatient reports:No: chest pain, palpitations, shortness of breath. Objective GeneralVS/I O:24 hour I O ending at 0700: 10/02 0700 10/01 1900 Intake Total 100 980.00 Output Total 750 Balance 100 230.00 Intake, IV 620.00 Intake, Oral 100 360 Number Voids 2 1 Output, Urine 750 Patient 70.76 kg Weight Vital Signs: Date Time Temp Pulse Resp B/P B/P Pulse O2 O2 Flow FiO2 Mean Ox Delivery Rate 10/02 1500 83 16 145/69 97 98 10/02 1430 76 15 130/63 90 100 06/20 1400 77 18 162/74 106 95 06/20 1330 92 156/74 106 89 06/20 1300 75 26 140/65 92 95 06/20 1230 66 19 105/59 77 99 06/20 1215 100 Nasal 2.555136 cannula 06/20 1200 67 18 99/60 74 98 06/20 1130 72 23 102/59 76 97 06/20 1100 78 110/73 88 98 06/20 1045 17 06/20 1030 68 16 132/67 93 99 06/20 1000 70 23 126/71 93 94 06/20 0930 80 148/67 97 72 06/20 0900 80 142/102 117 06/20 0845 20 06/20 0830 66 19 128/65 91 06/20 0800 84 19 146/76 103 06/20 0730 97.6 06/20 0730 Nasal 2.180611 cannula 06/20 0730 77 147/76 106 91 06/20 0700 71 26 152/74 105 98 06/20 0530 60 16 108/55 78 100 06/20 0500 60 13 127/73 94 100 06/20 0430 59 13 108/62 79 100 06/20 0400 97.8 06/20 0346 63 15 134/79 101 100 06/20 0300 83 17 97 06/20 0230 71 28 131/67 93 96 06/20 0200 78 17 137/77 102 95 06/20 0130 79 17 95 06/20 0100 72 19 130/74 97 98 06/20 0030 59 23 112/55 75 99 06/20 0000 97.8 06/20 0000 74 40 122/61 86 99 06/19 2330 70 16 129/62 89 97 06/19 2300 71 15 121/67 89 98 06/19 2230 69 16 101/55 73 98 06/19 2220 Nasal 3.145516 cannula 06/19 2200 97.7 06/19 2200 73 20 136/68 96 97 06/19 2150 82 26 97 06/19 1900 97.8 06/19 1900 71 18 97/54 70 96 06/19 1849 71 17 95 06/19 1845 86 34 96 06/19 1830 73 16 109/59 81 95 Patient Weight Weight (lb): 156Weight (oz): 3.65Weight (kg): 70.76 Medications:Active Meds + DC'd Last 24 HrsFamotidine 20 MG Q12HR PO Nifedipine 10 MG Q4H PRN PRN SL Aspirin 81 MG DAILY PO Clopidogrel Bisulfate 75 MG DAILY PO Hydrochlorothiazide 12.5 MG DAILY PO Isosorbide Mononitrate 30 MG DAILY PO Losartan Potassium 100 MG DAILY PO Metoprolol Succinate 100 MG DAILY PO Levothyroxine Sodium 100 MCG DAILY@0630 PO Atorvastatin Calcium 40 MG BEDTIME PO Mupirocin 1 APPLIC BID NASAL Potassium Chloride/Dextrose/Sod Cl 1,000 ML Q12H IV Acetaminophen/Codeine Phosphate 2 UDTAB Q4H PRN PRN PO Acetaminophen/Codeine Phosphate 1 UDTAB Q4H PRN PRN PO Meperidine HCl 25 MG Q4H PRN PRN IM Meperidine HCl 50 MG Q4H PRN PRN IM Acetaminophen 650 MG Q8H PRN PRN PO Acetaminophen 650 MG Q4H PRN PRN PO Benzocaine/Menthol 1 EACH Q2H PRN PRN MM (CKD) Bisacodyl 10 MG ASDIR PRN RECTAL Calcium Gluconate 1,000 MG ASDIR PRN IV Sodium Chloride 100 MLNicardipine HCl 25 MG ASDIR PRN IV Sodium Chloride 250 MLNifedipine 10 MG Q4H PRN PRN SL Ondansetron HCl 4 MG Q8H PRN PRN IV Phenol 5 SPRAY Q2H PRN PRN MM Potassium Chloride 10 MEQ ASDIR PRN PO Magnesium Hydroxide 30 ML ASDIR PRN PO Zolpidem Tartrate 5 MG BEDTIME PRN PRN PO Physical ExamGeneral appearance: alert, awake, orientedHead/Eyes: atraumatic, normocephalicENT: moist mucosal membranesNeck: no JVDCardiovascular: CV assessment: regular rate and rhythmRespiratory: clear to auscultation, no distressLower extremity: LE assessment: no edemaMusculoskeletal: full range of motionNeuro/HAZARDOUS MATERIALS TANKER DRIVER: alert, oriented X 3, CN II-XII intactSkin: dry, intactPsychiatry: normal affect, normal judgment/insight, normal mood ResultsFindings/Data:Laboratory Tests 10/02 0515 Chemistry Sodium (137 - 145 MMOL/L) 136 L Potassium [...] 2.3 MG/DL) 2.1 Laboratory Tests 10/02 0515 Hematology WBC (3.8 - 9.8 K/MM3) 11.6 H RBC (3.58 - 4.97 M/MM3) 3.39 L Hgb (11.2 - 14.9 G/DL) 11.0 L Hct (33.2 - 43.5 %) 33.6 MCV (80.7 - 99.1 fL) 99 MCH (27.0 - 34.1 pg) 32.4 MCHC (32.2 - 35.7 %) 32.7 RDW (12.1 - 15.2 %) 15.1 Plt Count (129 - 368 K/MM3) 274 MPV (7.4 - 10.4 fl) 8.8 Neut % (Auto) (43 - 75 %) 75.7 H Lymph % (Auto) (14 - 44 %) 11.9 L [place] % (Auto) (4 - 13 %) 11.2 Eos % (Auto) (0 - 6 %) 0.7 Baso % (Auto) (0 - 2 %) 0.2 Neut # (Auto) (2.0 - 7.6 K/mm3) 8.79 H Lymph # (Auto) (1.0 - 3.8 K/mm3) 1.38 [place] # (Auto) (0.1 - 0.8 K/mm3) 1.30 H Eos # (Auto) (0.0 - 0.2 K/mm3) 0.08 Baso # (Auto) (0.0 - 0.2 K/mm3) 0.02 Immature Gran % (0.0 - 2.0 %) 0.3 Nucleated RBC % (0 - 1.0 %) 0.0 Nucleated RBCs # (Man) (0.0 - 0.1 K/mm3) 0.00 Laboratory Tests 10/02 0515 Chemistry Magnesium (1.6 - 2.3 MG/DL) 2.1 Diagnosis, Assessment Plan Free Text DxA P NotesFree Text DxA P Notes:IMP: Carotid vascular disease s/p right CEA CAD - stable PLAN: Ambulate Continue current medications. at 1620 RPT #:[id number] OF REPORTPRProgress Spap3075-75-55U84:27:00Z.[id number] for patient rshqFTHGYUTULDZTOG6608-95-12X68:21:05 [facility] 2018-10-02 15:22:00 [id number]/NQeO75Wc4CU6b n5SlU+BetgvRPjAH+ wPVcWrtd3pvM9ygeQbQGEnpDIp1283-50-42D42:22:00 [facility] TexasHospitalist Progress NoteREPORT#:[id number] REPORT STATUS: SignedDATE:10/02/18 TIME: 152 PATIENT: RACHEAL SABILLON UNIT #: [id number]#: [id number] [address] AGE: 72 SEX: F ATTEND: Rohith Kc [facility] AUTHOR: Mariana Humphrey MD * ALL edits or amendments must be made on the electronic/computer document * SubjectiveChief Complaint:patient is doing well. Review of SystemsAll systems rev neg: except as marked Objective GeneralVS/I O:Vital Signs: Date Time Temp Pulse Resp B/P B/P Pulse O2 O2 Flow FiO2 Mean Ox Delivery Rate 10/02 1215 100 Nasal 2.254727 cannula 10/02 1000 70 23 126/71 93 94 10/02 0930 80 148/67 97 72 10/02 0900 80 142/102 117 10/02 0845 20 10/02 0830 66 19 128/65 91 10/02 0800 84 19 146/76 103 10/02 0730 97.6 10/02 0730 Nasal 2.487613 cannula 10/02 0730 77 147/76 106 91 10/02 0700 71 26 152/74 105 98 10/02 0530 60 16 108/55 78 100 06/20 0500 60 13 127/73 94 100 06/ 0430 59 13 108/62 79 100 06/20 0400 97.8 06/20 0346 63 15 134/79 101 100 / 0300 83 17 97 06/ 0230 71 28 131/67 93 96 10/02 0200 78 17 137/77 102 95 / 0130 79 17 95 06/ 0100 72 19 130/74 97 98 06/ 0030 59 23 112/55 75 99 06 0000 97.8 10/02 0000 74 40 122/61 86 99 10/01 2330 70 16 129/62 89 97 10/01 2300 71 15 121/67 89 98 10/01 2230 69 16 101/55 73 98 10/01 2220 Nasal 3.220866 cannula 10/01 2200 97.7 10/01 2200 73 20 136/68 96 97 10/01 2150 82 26 97 10/01 1900 97.8 10/01 1900 71 18 97/54 70 96 10/01 1849 71 17 95 10/01 1845 86 34 96 10/01 1830 73 16 109/59 81 95 10/01 1815 75 19 96 10/01 1800 87 32 126/69 92 96 10/01 1745 80 25 96 10/01 1730 80 25 119/59 83 95 10/01 1715 82 18 95 10/01 1708 83 24 96 10/01 1700 89 28 142/73 102 98 10/01 1645 80 16 100 10/01 1630 77 16 133/70 96 98 10/01 1615 78 15 100 10/01 1600 90 22 153/81 109 97 10/01 1545 79 15 99 10/01 1530 82 15 165/74 107 99 24 hour I O ending at 0700: 10/02 0700 10/01 1900 Intake Total 100 980.00 Output Total 750 Balance 100 230.00 Intake, IV 620.00 Intake, Oral 100 360 Number Voids 2 1 Output, Urine 750 Patient 70.76 kg Weight Medications:Active Meds + DC'd Last 24 HrsFamotidine 20 MG Q12HR PO Nifedipine 10 MG Q4H PRN PRN SL Aspirin 81 MG DAILY PO Clopidogrel Bisulfate 75 MG DAILY PO Hydrochlorothiazide 12.5 MG DAILY PO Isosorbide Mononitrate 30 MG DAILY PO Losartan Potassium 100 MG DAILY PO Metoprolol Succinate 100 MG DAILY PO Levothyroxine Sodium 100 MCG DAILY@0630 PO Atorvastatin Calcium 40 MG BEDTIME PO Mupirocin 1 APPLIC BID NASAL Potassium Chloride/Dextrose/Sod Cl 1,000 ML Q12H IV Acetaminophen/Codeine Phosphate 2 UDTAB Q4H PRN PRN PO Acetaminophen/Codeine Phosphate 1 UDTAB Q4H PRN PRN PO Meperidine HCl 25 MG Q4H PRN PRN IM Meperidine HCl 50 MG Q4H PRN PRN IM Acetaminophen 650 MG Q8H PRN PRN PO Acetaminophen 650 MG Q4H PRN PRN PO Benzocaine/Menthol 1 EACH Q2H PRN PRN MM (CKD) Bisacodyl 10 MG ASDIR PRN RECTAL Calcium Gluconate 1,000 MG ASDIR PRN IV Sodium Chloride 100 MLNicardipine HCl 25 MG ASDIR PRN IV Sodium Chloride 250 MLNifedipine 10 MG Q4H PRN PRN SL Ondansetron HCl 4 MG Q8H PRN PRN IV Phenol 5 SPRAY Q2H PRN PRN MM Potassium Chloride 10 MEQ ASDIR PRN PO Magnesium Hydroxide 30 ML ASDIR PRN PO Zolpidem Tartrate 5 MG BEDTIME PRN PRN PO Physical ExamGeneral appearance: alert, awakeHead/Eyes: EOMI, PERRLNeck: right side of neck dressing intactCardiovascular: normal heart sounds, regular rate rhythmRespiratory: aerating well, clear to auscultationAbdomen: non-tender, normal bowel soundsMusculoskeletal: normal inspectionPsychiatry: normal affect, normal judgment/insight ResultsFindings/Data:Laboratory Tests 10/02 0515 Chemistry Sodium (137 - 145 MMOL/L) 136 L Potassium [...] 2.3 MG/DL) 2.1 Laboratory Tests 10/02 0515 Hematology WBC (3.8 - 9.8 K/MM3) 11.6 H RBC (3.58 - 4.97 M/MM3) 3.39 L Hgb (11.2 - 14.9 G/DL) 11.0 L Hct (33.2 - 43.5 %) 33.6 MCV (80.7 - 99.1 fL) 99 MCH (27.0 - 34.1 pg) 32.4 MCHC (32.2 - 35.7 %) 32.7 RDW (12.1 - 15.2 %) 15.1 Plt Count (129 - 368 K/MM3) 274 MPV (7.4 - 10.4 fl) 8.8 Neut % (Auto) (43 - 75 %) 75.7 H Lymph % (Auto) (14 - 44 %) 11.9 L [place] % (Auto) (4 - 13 %) 11.2 Eos % (Auto) (0 - 6 %) 0.7 Baso % (Auto) (0 - 2 %) 0.2 Neut # (Auto) (2.0 - 7.6 K/mm3) 8.79 H Lymph # (Auto) (1.0 - 3.8 K/mm3) 1.38 [place] # (Auto) (0.1 - 0.8 K/mm3) 1.30 H Eos # (Auto) (0.0 - 0.2 K/mm3) 0.08 Baso # (Auto) (0.0 - 0.2 K/mm3) 0.02 Immature Gran % (0.0 - 2.0 %) 0.3 Nucleated RBC % (0 - 1.0 %) 0.0 Nucleated RBCs # (Man) (0.0 - 0.1 K/mm3) 0.00 Diagnosis, Assessment Plan Free Text DxA P NotesFree text DxA P notes: Diagnosis, Assessment Plan pt is 72 y/o female with h/o CAD and stent , HTN, HLD, hypothyroidism underwent Procedures performed:Right carotid endarterectomy with hemashield patch arterioplasty. pt is admitted for post op care. plan: contienu treatment per dr kc and monitor clinical recovery. 10/01/18: blood pressure became uncontrolled requiring restarting of nicardipine drip. resume home medications and monitor for bp control. 10/02/18: patient is doing better, ambulating in hallway. blood pressure is better controlled. transfer out of icu. Quality MedicationsCurrent medication review:I attest that the foregoing medication list in the medical record is true, accurate, and complete to the best of my knowledge. Advanced Care Plan 65 or OlderDiscussed with: patient, surrogate decis. makerDiscussion included: code status (full code) Tobacco Use/CounselingTobacco use/counseling: non tobacco user HTN Screening/Follow-upB/P assess/follow-up: pre-existing hx of HTN at 1526 RPT #:[id number] OF REPORTPRProgress Wsec6273-26-76K81:22:00Z.[id number] for patient nfwgEOULGTLETRNMEP3478-72-57G77:27:05 [facility] 2018-10-02 09:58:00 [id number] dpxGMbDrGQmZRrvZa lYlm6ROIGiMTJ86s+C0gKd3Aus8073-20-43F36:58:00 [facility])Cardiovascular Surgery ProgREPORT#:[id number] REPORT STATUS: SignedDATE:10/02/18 TIME: 09 PATIENT: RACHEAL SABILLON UNIT #: [id number]#: [id number] [address]GQBP: [address] AGE: 72 SEX: F ATTEND: Rohith Kc AUTHOR: Billie Valadez NP * ALL edits or amendments must be made on the electronic/computer document * GeneralPost-op: day 2Status post:Right CEA SubjectivePatient reports:No: complaints. Comments:Seen sitting on the chair at bedsideDenies cp or sobReports right neck tenderness and numbness Tongue is midline without deviation, tongue is midline, left facial droop. left IJ CVC Review of SystemsConstitutional:Denies: chills, fatigue, fever, generalized weakness. Respiratory:Denies: NEGRO (dyspnea on exertion), SOB. Cardiovascular:Denies: chest pain, NEGRO (dyspnea on exertion), edema, orthopnea, palpitations. Objective Physical ExamVS/I O:Last Documented: Result Date Time Temp 97.6 10/02 0730 Pulse Ox 98 10/02 0700 B/P 152/74 10/02 0700 B/P Mean 105 10/02 0700 Pulse 71 10/02 0700 Resp 26 10/02 0700 O2 Delivery Nasal cannula 10/01 2220 O2 Flow Rate 3.476917 10/01 2220 FiO2 28 10/01 1442 24 hour I O ending at 0700: 10/02 0700 10/01 1900 Intake Total 100 980.00 Output Total 750 Balance 100 230.00 Intake, IV 620.00 Intake, Oral 100 360 Number Voids 2 1 Output, Urine 750 Patient 70.76 kg Weight Patient Weight Weight (lb): 156Weight (oz): 3.65Weight (kg): 70.76 Medications:Active Meds + DC'd Last 24 HrsFamotidine 20 MG Q12HR PO Nifedipine 10 MG Q4H PRN PRN SL Aspirin 81 MG DAILY PO Clopidogrel Bisulfate 75 MG DAILY PO Hydrochlorothiazide 12.5 MG DAILY PO Isosorbide Mononitrate 30 MG DAILY PO Losartan Potassium 100 MG DAILY PO Metoprolol Succinate 100 MG DAILY PO Levothyroxine Sodium 100 MCG DAILY@0630 PO Atorvastatin Calcium 40 MG BEDTIME PO Famotidine 20 MG Q12HR IV (DC) Mupirocin 1 APPLIC BID NASAL Potassium Chloride/Dextrose/Sod Cl 1,000 ML Q12H IV Acetaminophen/Codeine Phosphate 2 UDTAB Q4H PRN PRN PO Acetaminophen/Codeine Phosphate 1 UDTAB Q4H PRN PRN PO Meperidine HCl 25 MG Q4H PRN PRN IM Meperidine HCl 50 MG Q4H PRN PRN IM Acetaminophen 650 MG Q8H PRN PRN PO Acetaminophen 650 MG Q4H PRN PRN PO Benzocaine/Menthol 1 EACH Q2H PRN PRN MM (CKD) Bisacodyl 10 MG ASDIR PRN RECTAL Calcium Gluconate 1,000 MG ASDIR PRN IV Sodium Chloride 100 MLNicardipine HCl 25 MG ASDIR PRN IV Sodium Chloride 250 MLNifedipine 10 MG Q4H PRN PRN SL Ondansetron HCl 4 MG Q8H PRN PRN IV Phenol 5 SPRAY Q2H PRN PRN MM Potassium Chloride 10 MEQ ASDIR PRN PO Magnesium Hydroxide 30 ML ASDIR PRN PO Zolpidem Tartrate 5 MG BEDTIME PRN PRN PO General appearance: alert, awake, oriented, no acute distressWound/incision: Location: Right neck Site condition: dressing clean dry, dressing intact, no drainageNeck: tenderness (right neck), Right neck swellingCardiovascular: BP/pulses equal bilat., normal heart sounds, regular rate rhythmRespiratory: aerating well, clear to auscultation, symmetric expansion, no distressAbdomen: soft, non-tender, normal bowel sounds, no distentionGenitourinary: no foleyExtremities: moves all, no edemaNeuro/HAZARDOUS MATERIALS TANKER DRIVER: alert, oriented X 3, CNII-XII intacte, normal gait, normal speech, nomotor deficits, no sensory deficits, Tongue is midline without deviation ResultsFindings/Data:Laboratory Tests 10/02 514 Chemistry Sodium (137 - 145 MMOL/L) 136 L Potassium [...] 2.3 MG/DL) 2.1 Laboratory Tests 10/02 0515 Hematology WBC (3.8 - 9.8 K/MM3) 11.6 H RBC (3.58 - 4.97 M/MM3) 3.39 L Hgb (11.2 - 14.9 G/DL) 11.0 L Hct (33.2 - 43.5 %) 33.6 MCV (80.7 - 99.1 fL) 99 MCH (27.0 - 34.1 pg) 32.4 MCHC (32.2 - 35.7 %) 32.7 RDW (12.1 - 15.2 %) 15.1 Plt Count (129 - 368 K/MM3) 274 MPV (7.4 - 10.4 fl) 8.8 Neut % (Auto) (43 - 75 %) 75.7 H Lymph % (Auto) (14 - 44 %) 11.9 L [place] % (Auto) (4 - 13 %) 11.2 Eos % (Auto) (0 - 6 %) 0.7 Baso % (Auto) (0 - 2 %) 0.2 Neut # (Auto) (2.0 - 7.6 K/mm3) 8.79 H Lymph # (Auto) (1.0 - 3.8 K/mm3) 1.38 [place] # (Auto) (0.1 - 0.8 K/mm3) 1.30 H Eos # (Auto) (0.0 - 0.2 K/mm3) 0.08 Baso # (Auto) (0.0 - 0.2 K/mm3) 0.02 Immature Gran % (0.0 - 2.0 %) 0.3 Nucleated RBC % (0 - 1.0 %) 0.0 Nucleated RBCs # (Man) (0.0 - 0.1 K/mm3) 0.00 Diagnosis, Assessment PlanFree Text A P:This is a 72 Y/F with LITTLE stenosisS/p Right CEA-tongue is midline without deviation, left facial droop. Right facial swellingOn statin/plavix/aspirinHTN-off cardene gtt, b/p controlled now.DVT prophylaxis-SCDs and TEDsEncourage IS and ambulationWill monitor b/p today.CM [facility]c planning [facility] tentatively saturday or saturday. Orders: Procedure Date/time Status CASE MANAGEMENT CONSULT 10/03 1839 Active Plan discussed with: patient, collaborating MD (Dr. Kc) at 2031 RPT #:[id number] OF REPORTPRProgress [id number]:58:00Z.[id number] for patient ifubEGHDIWQXRGKHUR3949-34-95I90:31:52 HCAWU 2018-10-02 09:58:00 [id number] JfopRW9gQziy7TTWL baAIaVMkpi0pvO1IG092MuSUAD9384-23-37L28:58:00 [facility] ([facility]ardi[facility] ProgREPORT#:[id number] REPORT STATUS: SignedDATE:10/02/18 TIME: 0958 PATIENT: RACHEAL SABILLON UNIT #: [id number]#: [id number] [address]: [address] AGE: 72 SEX: F ATTEND: Rohith Kc MDA AUTHOR: Billie Valadez NP * ALL edits or amendments must be made on the electronic/computer document * GeneralPost-op: day 2Status post:Right CEA SubjectivePatient reports:No: complaints. Comments:Seen sitting on the chair at bedsideDenies cp or sobReports right neck tenderness and numbness Tongue is midline without deviation, tongue is midline, left facial droop. left IJ CVC Review of SystemsConstitutional:Denies: chills, fatigue, fever, generalized weakness. Respiratory:Denies: NEGRO (dyspnea on exertion), SOB. Cardiovascular:Denies: chest pain, NEGRO (dyspnea on exertion), edema, orthopnea, palpitations. Objective Physical ExamVS/I O:Last Documented: Result Date Time Temp 97.6 10/02 0730 Pulse Ox 98 10/02 0700 B/P 152/74 10/02 0700 B/P Mean 105 10/02 0700 Pulse 71 10/02 0700 Resp 26 10/02 0700 O2 Delivery Nasal cannula 10/01 2220 O2 Flow Rate 3.151180 10/01 2220 FiO2 28 10/01 1442 24 hour I O ending at 0700: 10/02 0700 10/01 1900 Intake Total 100 980.00 Output Total 750 Balance 100 230.00 Intake, IV 620.00 Intake, Oral 100 360 Number Voids 2 1 Output, Urine 750 Patient 70.76 kg Weight Patient Weight Weight (lb): 156Weight (oz): 3.65Weight (kg): 70.76 Medications:Active Meds + DC'd Last 24 HrsFamotidine 20 MG Q12HR PO Nifedipine 10 MG Q4H PRN PRN SL Aspirin 81 MG DAILY PO Clopidogrel Bisulfate 75 MG DAILY PO Hydrochlorothiazide 12.5 MG DAILY PO Isosorbide Mononitrate 30 MG DAILY PO Losartan Potassium 100 MG DAILY PO Metoprolol Succinate 100 MG DAILY PO Levothyroxine Sodium 100 MCG DAILY@0630 PO Atorvastatin Calcium 40 MG BEDTIME PO Famotidine 20 MG Q12HR IV (DC) Mupirocin 1 APPLIC BID NASAL Potassium Chloride/Dextrose/Sod Cl 1,000 ML Q12H IV Acetaminophen/Codeine Phosphate 2 UDTAB Q4H PRN PRN PO Acetaminophen/Codeine Phosphate 1 UDTAB Q4H PRN PRN PO Meperidine HCl 25 MG Q4H PRN PRN IM Meperidine HCl 50 MG Q4H PRN PRN IM Acetaminophen 650 MG Q8H PRN PRN PO Acetaminophen 650 MG Q4H PRN PRN PO Benzocaine/Menthol 1 EACH Q2H PRN PRN MM (CKD) Bisacodyl 10 MG ASDIR PRN RECTAL Calcium Gluconate 1,000 MG ASDIR PRN IV Sodium Chloride 100 MLNicardipine HCl 25 MG ASDIR PRN IV Sodium Chloride 250 MLNifedipine 10 MG Q4H PRN PRN SL Ondansetron HCl 4 MG Q8H PRN PRN IV Phenol 5 SPRAY Q2H PRN PRN MM Potassium Chloride 10 MEQ ASDIR PRN PO Magnesium Hydroxide 30 ML ASDIR PRN PO Zolpidem Tartrate 5 MG BEDTIME PRN PRN PO General appearance: alert, awake, oriented, no acute distressWound/incision: Location: Right neck Site condition: dressing clean dry, dressing intact, no drainageNeck: tenderness (right neck), Right neck swellingCardiovascular: BP/pulses equal bilat., normal heart sounds, regular rate rhythmRespiratory: aerating well, clear to auscultation, symmetric expansion, no distressAbdomen: soft, non-tender, normal bowel sounds, no distentionGenitourinary: no foleyExtremities: moves all, no edemaNeuro/HAZARDOUS MATERIALS TANKER DRIVER: alert, oriented X 3, CNII-XII intacte, normal gait, normal speech, nomotor deficits, no sensory deficits, Tongue is midline without deviation ResultsFindings/Data:Laboratory Tests 10/02 0515 Chemistry Sodium (137 - 145 MMOL/L) 136 L Potassium [...] 2.3 MG/DL) 2.1 Laboratory Tests 10/02 0415 Hematology WBC (3.8 - 9.8 K/MM3) 11.6 H RBC (3.58 - 4.97 M/MM3) 3.39 L Hgb (11.2 - 14.9 G/DL) 11.0 L Hct (33.2 - 43.5 %) 33.6 MCV (80.7 - 99.1 fL) 99 MCH (27.0 - 34.1 pg) 32.4 MCHC (32.2 - 35.7 %) 32.7 RDW (12.1 - 15.2 %) 15.1 Plt Count (129 - 368 K/MM3) 274 MPV (7.4 - 10.4 fl) 8.8 Neut % (Auto) (43 - 75 %) 75.7 H Lymph % (Auto) (14 - 44 %) 11.9 L [place] % (Auto) (4 - 13 %) 11.2 Eos % (Auto) (0 - 6 %) 0.7 Baso % (Auto) (0 - 2 %) 0.2 Neut # (Auto) (2.0 - 7.6 K/mm3) 8.79 H Lymph # (Auto) (1.0 - 3.8 K/mm3) 1.38 [place] # (Auto) (0.1 - 0.8 K/mm3) 1.30 H Eos # (Auto) (0.0 - 0.2 K/mm3) 0.08 Baso # (Auto) (0.0 - 0.2 K/mm3) 0.02 Immature Gran % (0.0 - 2.0 %) 0.3 Nucleated RBC % (0 - 1.0 %) 0.0 Nucleated RBCs # (Man) (0.0 - 0.1 K/mm3) 0.00 Diagnosis, Assessment PlanFree Text A P:This is a 72 Y/F with LITTLE stenosisS/p Right CEA-tongue is midline without deviation, left facial droop. Right facial swellingOn statin/plavix/aspirinHTN-off cardene gtt, b/p controlled now.DVT prophylaxis-SCDs and TEDsEncourage IS and ambulationWill monitor b/p today.CM [facility]/c planning [facility] tentatively saturday or saturday. Orders: Procedure Date/time Status CASE MANAGEMENT CONSULT 10/03 1839 Active Plan discussed with: patient, collaborating MD (Dr. Kc) at 2031 at 1929 RPT #:[id number] OF REPORTPRProgress [id number]:58:00Z.[id number] for patient wmhgGXASGLIOIQFMFV7377-59-26R60:29:17 [facility] 2018-10-01 18:45:00 [id number]/k 4V4ZCMu8bR6WUjmtk PIhqy7i7LftK8QIeR8G9ELUPSw1189-46-27U76:45:00 [facility] ([facility])Cardiology Progress NoteREPORT#:[id number] REPORT STATUS: SignedDATE:10/01/18 TIME: 1844 PATIENT: RACHEAL SABILLON UNIT #: [id number]#: [id number] [address]QFSZ: [address] AGE: 72 SEX: F ATTEND: Rohith Kc AUTHOR: Supa Kelly MD * ALL edits or amendments must be made on the electronic/computer document * SubjectivePatient reports:No: chest pain, palpitations, shortness of breath. Objective GeneralVS/I O:24 hour I O ending at 0700: 10/01 0700 06/18 1900 Intake Total 1245.00 1490.00 Output Total 1330 1240 Balance -85.00 250.00 Intake, IV 1005.00 1490.00 Intake, Oral 240 Output, 60 40 Drainage Output, 20 Emesis Output, Urine 1250 1200 Patient 70.864 kg Weight Weight Standing scale Measurement Method Vital Signs: Date Time Temp Pulse Resp B/P B/P Pulse O2 O2 Flow FiO2 Mean Ox Delivery Rate 10/01 1800 87 32 126/69 92 96 10/01 1745 80 25 96 10/01 1730 80 25 119/59 83 95 10/01 1715 82 18 95 10/01 1708 83 24 96 10/01 1700 89 28 142/73 102 98 10/01 1645 80 16 100 10/01 1630 77 16 133/70 96 98 10/01 1615 78 15 100 10/01 1600 90 22 153/81 109 97 10/01 1545 79 15 99 10/01 1530 82 15 165/74 107 99 10/01 1515 85 16 99 10/01 1508 99.0 90 24 166/77 106 100 Nasal 3.025477 cannula 10/01 1503 85 23 99 10/01 1500 80 20 166/77 114 99 10/01 1449 80 16 182/80 120 100 10/01 1445 82 23 99 10/01 1444 84 25 202/102 140 99 10/01 1442 100 Nasal 28 cannula 10/01 1441 77 15 100 10/01 1434 90 21 196/93 134 94 10/01 1432 92 22 203/99 142 91 10/01 1430 204/96 138 10/01 1428 93 31 92 10/01 1415 78 16 92 10/01 1400 83 18 151/94 116 92 10/01 1345 70 16 91 10/01 1330 76 17 160/79 109 92 10/01 1315 84 22 92 10/01 1300 77 19 134/70 96 93 10/01 1245 72 14 92 10/01 1230 74 18 129/72 93 90 10/01 1215 69 11 91 10/01 1200 71 14 123/72 93 91 10/01 1152 98.1 80 21 109/64 79 93 Room air 10/01 1145 84 25 90 10/01 1130 68 17 104/61 77 90 10/01 1115 78 14 92 06/19 1108 71 17 112/64 83 92 06/19 1100 75 17 92 06/19 1057 78 32 93 06/19 1054 75 29 109/64 81 93 06/19 1046 79 20 101/60 76 88 06/19 1045 68 15 91 06/19 1039 69 16 108/61 79 94 06/19 1030 76 18 92 06/19 1015 77 16 92 06/19 1000 70 19 95 06/19 0958 70 21 143/80 106 94 06/19 0949 178/82 117 06/19 0930 72 13 100 06/19 0915 70 25 100 06/19 0900 64 16 121/61 85 100 06/19 0845 65 18 100 06/19 0830 66 12 100 06/19 0815 70 26 100 06/19 0800 97.7 64 18 114/60 78 100 Nasal 3.344760 cannula 06/19 0800 79 24 111/58 78 100 06/19 0745 73 16 100 06/19 0730 67 16 100 06/19 0715 73 15 100 06/19 0700 84 20 129/68 91 100 06/19 0645 68 16 100 06/19 0630 74 17 99 06/19 0615 79 19 100 06/19 0600 78 19 130/56 80 06/19 0600 89 06/19 0545 88 20 06/19 0500 74 15 128/69 93 96 06/19 0445 78 17 98 06/19 0430 72 17 99 06/19 0415 77 17 99 06/19 0400 98.7 06/19 0400 76 16 154/70 100 [...] 75 18 98 06/18 2315 75 20 98 06/18 2300 75 19 113/65 83 97 06/18 2245 103 20 96 06/18 2230 77 19 98 09/30 2215 80 17 98 09/30 2200 80 18 121/69 90 98 09/305 79 18 97 09/300 81 18 96 09/305 83 20 95 09/30 2100 76 21 103/59 76 97 09/305 76 17 97 09/30 2029 77 18 98 09/30 2014 80 20 97 10/01 1999 97.2 10/01 1999 Nasal 2.408051 cannula 10/01 1999 79 18 104/57 75 97 09/30 1945 79 19 97 09/30 1930 81 17 97 09/30 1915 83 16 97 09/30 1909 88 14 115/61 83 97 09/30 1905 88 17 96 09/30 1901 86 19 108/59 78 98 09/30 1900 84 12 98 09/30 1846 86 19 135/71 96 98 Patient Weight Weight (lb): 156Weight (oz): 3.65Weight (kg): 70.76 Physical ExamGeneral appearance: alert, awake, orientedHead/Eyes: atraumatic, normocephalicENT: moist mucosal membranesNeck: no JVDCardiovascular: CV assessment: regular rate and rhythmRespiratory: clear to auscultation, no distressLower extremity: LE assessment: no edemaMusculoskeletal: full range of motionNeuro/HAZARDOUS MATERIALS TANKER DRIVER: alert, oriented X 3, CN II-XII intactSkin: dry, intactPsychiatry: normal affect, normal judgment/insight, normal mood ResultsFindings/Data:Laboratory Tests 10/015 Chemistry Sodium (137 - 145 MMOL/L) 136 L Potassium (3.5 - 5.1 MMOL/L) 3.9 3.3 L Chloride (98 - 107 MMOL/L) 96 L Carbon Dioxide (22 - 30 MMOL/L) 32 H BUN (7 - 17 MG/DL) 7 Creatinine (0.52 - 1.04 MG/DL) 0.60 Glomerular Filtr Rate > 60 Glucose (74 - 106 MG/DL) 132 H Calcium (8.4 - 10.2 MG/DL) 8.7 Magnesium (1.6 - 2.3 MG/DL) 1.7 1.7 Laboratory Tests 10/01 449 Hematology WBC (3.8 - 9.8 K/MM3) 10.7 H RBC (3.58 - 4.97 M/MM3) 3.70 Hgb (11.2 - 14.9 G/DL) 12.0 Hct (33.2 - 43.5 %) 36.0 MCV (80.7 - 99.1 fL) 97 MCH (27.0 - 34.1 pg) 32.4 MCHC (32.2 - 35.7 %) 33.3 RDW (12.1 - 15.2 %) 15.2 Plt Count (129 - 368 K/MM3) 298 MPV (7.4 - 10.4 fl) 8.8 Neut % (Auto) (43 - 75 %) 82.2 H Lymph % (Auto) (14 - 44 %) 8.7 L [place] % (Auto) (4 - 13 %) 8.4 Eos % (Auto) (0 - 6 %) 0.1 Baso % (Auto) (0 - 2 %) 0.2 Neut # (Auto) (2.0 - 7.6 K/mm3) 8.82 H Lymph # (Auto) (1.0 - 3.8 K/mm3) 0.93 L [place] # (Auto) (0.1 - 0.8 K/mm3) 0.90 H Eos # (Auto) (0.0 - 0.2 K/mm3) 0.01 Baso # (Auto) (0.0 - 0.2 K/mm3) 0.02 Immature Gran % (0.0 - 2.0 %) 0.4 Nucleated RBC % (0 - 1.0 %) 0.0 Nucleated RBCs # (Man) (0.0 - 0.1 K/mm3) 0.00 Laboratory Tests 10/01 09/30 0450 2215 Chemistry Magnesium (1.6 - 2.3 MG/DL) 1.7 1.7 Radiology data:Recent Impressions:RADIOLOGY - XR CHEST 1V 10/01 0333 Report Impression - Status: SIGNED Entered: 10/01/2018 0748 IMPRESSION:Mild left basilar atelectasis and/or pleural fluid.Impression By: LakePR7 - Kayode Juarez MD Diagnosis, Assessment Plan Free Text DxA P NotesFree Text DxA P Notes:IMP: Carotid vascular disease s/p right CEA CAD - stable PLAN: Ambulate Home medications. at 2048 RPT #:[id number] OF REPORTPRProgress [id number]:45:00Z.[id number] for patient zxelLYKLHVMDSSPBQO2135-68-82P34:49:02 [facility] 2018-10-01 15:00:00 [id number] 8ojjBQkjETg3DO3r2 ZKNcsZFcNi+VDxpI7A885UD/1+2503-26-64G43:00:00 [facility] TexasHospitalist Progress NoteREPORT#:[id number] REPORT STATUS: SignedDATE:10/01/18 TIME: 1500 PATIENT: RACHEAL SABILLON UNIT #: [id number]#: [id number] [address]GYHS: 46 AGE: 72 SEX: F ATTEND: Rohith Kc [facility] AUTHOR: Mariana Humphrey MD * ALL edits or amendments must be made on the electronic/computer document * SubjectiveChief Complaint:patient is doing well. Review of SystemsAll systems rev neg: except as marked Objective GeneralVS/I O:Vital Signs: Date Time Temp Pulse Resp B/P B/P Pulse O2 O2 Flow FiO2 Mean Ox Delivery Rate 10/01 1442 100 Nasal 28 cannula 10/01 1441 77 15 100 10/01 1434 90 21 196/93 134 94 10/01 1432 92 22 203/99 142 91 10/01 1430 204/96 138 10/01 1428 93 31 92 10/01 1415 78 16 92 10/01 1400 83 18 151/94 116 92 10/01 1345 70 16 91 10/01 1330 76 17 160/79 109 92 10/01 1315 84 22 92 10/01 1300 77 19 134/70 96 93 10/01 1245 72 14 92 10/01 1230 74 18 129/72 93 90 10/01 1215 69 11 91 10/01 1200 71 14 123/72 93 91 06/19 1152 98.1 80 21 109/64 79 93 Room air 06/19 1145 84 25 90 06/19 1130 68 17 104/61 77 90 06/19 1115 78 14 92 06/19 1108 71 17 112/64 83 92 06/19 1100 75 17 92 06/19 1057 78 32 93 06/19 1054 75 29 109/64 81 93 06/19 1046 79 20 101/60 76 88 06/19 1045 68 15 91 06/19 1039 69 16 108/61 79 94 06/19 1030 76 18 92 06/19 1015 77 16 92 06/19 1000 70 19 95 06/19 0958 70 21 143/80 106 94 06/19 0949 178/82 117 06/19 0930 72 13 100 06/19 0915 70 25 100 06/19 0900 64 16 121/61 85 100 06/19 0845 65 18 100 06/19 0830 66 12 100 06/19 0815 70 26 100 06/19 0800 97.7 64 18 114/60 78 100 Nasal 3.800376 cannula 06/19 0800 79 24 111/58 78 100 06/19 0745 73 16 100 06/19 0730 67 16 100 06/19 0715 73 15 100 06/19 0700 84 20 129/68 91 100 06/19 0645 68 16 100 06/19 0630 74 17 99 06/19 0615 79 19 100 06/19 0600 78 19 130/56 80 06/19 0600 89 06/19 0545 88 20 06/19 0500 74 15 128/69 93 96 06/19 0445 78 17 98 06/19 0430 72 17 99 06/19 0415 77 17 99 06/19 0400 98.7 06/19 0400 76 16 154/70 100 [...] 75 18 98 06/18 2315 75 20 98 06/18 2300 75 19 113/65 83 97 06/18 2245 103 20 96 06/18 2230 77 19 98 06/18 2215 80 17 98 06/18 2200 80 18 121/69 90 98 06/18 2145 79 18 97 06/18 2130 81 18 96 06/18 2115 83 20 95 06/18 2100 76 21 103/59 76 97 06/18 2045 76 17 97 06/18 2030 77 18 98 06/18 2015 80 20 97 06/18 1999 97.2 06/18 1999 Nasal 2.339465 cannula 18 1999 79 18 104/57 75 97 06/18 1945 79 19 97 06/18 1930 81 17 97 06/18 1915 83 16 97 06/18 1909 88 14 115/61 83 97 06/18 1905 88 17 96 06/18 1901 86 19 108/59 78 98 06/18 1900 84 12 98 06/18 1846 86 19 135/71 96 98 06/18 1845 80 16 98 06/18 1831 78 18 121/68 89 98 06/18 1830 81 18 98 06/18 1816 76 19 122/66 89 97 06/18 1815 75 19 125/67 89 97 06/18 1801 77 20 96 06/18 1800 78 24 109/61 80 96 06/18 1759 83 21 107/58 78 95 06/18 1745 84 19 95 06/18 1744 87 23 104/56 74 06/18 1730 91 23 96 06/18 1715 93 9 96 06/18 1700 82 21 97 06/18 1657 86 19 97 06/18 1645 87 9 97 06/18 1642 85 18 97 06/18 1630 Nasal 3.587905 cannula 0618 1630 87 20 98 06/18 1627 88 22 98 06/18 1624 86 20 98 06/18 1612 87 20 98 06/18 1557 85 20 98 06/18 1542 91 23 97 06/18 1527 99 30 97 06/18 1512 100 Simple 5.955561 40 mask 18 1512 97.6 107 30 146/69 94 100 Simple 3.547406 mask 18 1512 107 99 24 hour I O ending at 0700: 10/01 0700 09/30 1900 Intake Total 1245.00 1490.00 Output Total 1330 1240 Balance -85.00 250.00 Intake, IV 1005.00 1490.00 Intake, Oral 240 Output, 60 40 Drainage Output, 20 Emesis Output, Urine 1250 1200 Patient 70.864 kg Weight Weight Standing scale Measurement Method Medications:Active Meds + DC'd Last 24 HrsFamotidine 20 MG Q12HR PO Aspirin 81 MG DAILY PO (DC) Aspirin 81 MG DAILY PO Clopidogrel Bisulfate 75 MG DAILY PO (DC) Clopidogrel Bisulfate 75 MG DAILY PO Hydrochlorothiazide 12.5 MG DAILY PO Isosorbide Mononitrate 30 MG DAILY PO Losartan Potassium 100 MG DAILY PO Metoprolol Succinate 100 MG DAILY PO Magnesium Sulfate/Dextrose 100 ML ONCE ONE IV (DC) Dextrose/Sodium Chloride 1,000 ML Q20H IV (CAN) Levothyroxine Sodium 100 MCG DAILY@0630 PO Potassium Chloride 50 ML ONCE ONE IV (DC) Atorvastatin Calcium 40 MG BEDTIME PO Famotidine 20 MG Q12HR IV (DC) Mupirocin 1 APPLIC BID NASAL Potassium Chloride 50 ML Q1H IV (DC) Potassium Chloride 50 ML ONCE ONE IV (DC) Magnesium Sulfate 50 ML NOW ONE IV (DC) Potassium Chloride 50 ML Q2H IV (DC) Potassium Chloride/Dextrose/Sod Cl 1,000 ML Q12H IV Cefazolin Sodium 1,000 MG Q8H IV (DC) Sodium Chloride 10 MLAcetaminophen/Codeine Phosphate 2 UDTAB Q4H PRN PRN PO Acetaminophen/Codeine Phosphate 1 UDTAB Q4H PRN PRN PO Meperidine HCl 25 MG Q4H PRN PRN IM Meperidine HCl 50 MG Q4H PRN PRN IM Acetaminophen 650 MG Q8H PRN PRN PO Acetaminophen 650 MG Q4H PRN PRN PO Benzocaine/Menthol 1 EACH Q2H PRN PRN MM (CKD) Bisacodyl 10 MG ASDIR PRN RECTAL Calcium Gluconate 1,000 MG ASDIR PRN IV Sodium Chloride 100 MLNicardipine HCl 25 MG ASDIR PRN IV Sodium Chloride 250 MLNifedipine 10 MG Q4H PRN PRN SL Ondansetron HCl 4 MG Q8H PRN PRN IV Phenol 5 SPRAY Q2H PRN PRN MM Potassium Chloride 10 MEQ ASDIR PRN PO Nicardipine HCl 25 MG ASDIR IV (DC) Sodium Chloride 250 MLCefazolin Sodium 2,000 MG ONCALL IV (DC) Acetaminophen 650 MG Q4H PRN PRN PO (DC) Magnesium Hydroxide 30 ML ASDIR PRN PO Zolpidem Tartrate 5 MG BEDTIME PRN PRN PO Physical ExamGeneral appearance: alert, awake, orientedHead/Eyes: EOMI, PERRLNeck: right side of neck dressing intactCardiovascular: normal heart sounds, regular rate rhythmRespiratory: aerating well, clear to auscultationAbdomen: non-tender, normal bowel soundsMusculoskeletal: normal inspectionPsychiatry: normal affect, normal judgment/insight ResultsFindings/Data:Laboratory Tests 09/30 153 Blood Gas Puncture Site AL ABG pH (7.35 - 7.45 mmHg) 7.42 ABG pCO2 (35.0 - 45.0 mmHg) 45.2 H ABG pO2 (80.0 - 100.0 mmol/L) 81.7 ABG HCO3 (20.0 - 26.0 mmol/L) 28.5 H ABG O2 Saturation (95.0 - 100.0 %) 96.1 ABG Base Excess (-3.0 - 3.0 mmol/L) 3.4 H Nick Test (CHECK) NA Temperature (37 C) 37.0 O2 Delivery Device FACETENT FiO2 (%) 40 Laboratory Tests 10/01 09/30 09/30 0450 2215 1515 Chemistry Sodium (137 - 145 MMOL/L) 136 L 138 Potassium (3.5 - 5.1 MMOL/L) 3.9 3.3 L 3.1 L Chloride (98 - 107 MMOL/L) 96 L 100 Carbon Dioxide (22 - 30 MMOL/L) 32 H 31 H BUN (7 - 17 MG/DL) 7 10 Creatinine (0.52 - 1.04 MG/DL) 0.60 0.60 Glomerular Filtr Rate > 60 > 60 Glucose (74 - 106 MG/DL) 132 H 119 H Calcium (8.4 - 10.2 MG/DL) 8.7 8.9 Magnesium (1.6 - 2.3 MG/DL) 1.7 1.7 1.3 L Laboratory Tests 10/01 09/30 0450 1515 Hematology WBC (3.8 - 9.8 K/MM3) 10.7 H 10.8 H RBC (3.58 - 4.97 M/MM3) 3.70 3.64 Hgb (11.2 - 14.9 G/DL) 12.0 11.8 Hct (33.2 - 43.5 %) 36.0 35.3 MCV (80.7 - 99.1 fL) 97 97 MCH (27.0 - 34.1 pg) 32.4 32.4 MCHC (32.2 - 35.7 %) 33.3 33.4 RDW (12.1 - 15.2 %) 15.2 14.9 Plt Count (129 - 368 K/MM3) 298 281 MPV (7.4 - 10.4 fl) 8.8 8.9 Neut % (Auto) (43 - 75 %) 82.2 H 55.0 Lymph % (Auto) (14 - 44 %) 8.7 L 30.3 [place] % (Auto) (4 - 13 %) 8.4 10.8 Eos % (Auto) (0 - 6 %) 0.1 3.0 Baso % (Auto) (0 - 2 %) 0.2 0.3 Neut # (Auto) (2.0 - 7.6 K/mm3) 8.82 H 5.97 Lymph # (Auto) (1.0 - 3.8 K/mm3) 0.93 L 3.28 [place] # (Auto) (0.1 - 0.8 K/mm3) 0.90 H 1.17 H Eos # (Auto) (0.0 - 0.2 K/mm3) 0.01 0.32 H Baso # (Auto) (0.0 - 0.2 K/mm3) 0.02 0.03 Immature Gran % (0.0 - 2.0 %) 0.4 0.6 Nucleated RBC % (0 - 1.0 %) 0.0 0.0 Nucleated RBCs # (Man) (0.0 - 0.1 K/mm3) 0.00 0.00 Radiology data:Recent Impressions:RADIOLOGY - XR CHEST 1V 09/30 1516 Report Impression - Status: SIGNED Entered: 09/30/2018 1532 IMPRESSION:Mild congestive changes bilaterally. No pneumothorax. Impression By: t.SDR.ZEYNEP Zuniga MDRADIOLOGY - XR CHEST 1V 10/01 0449 Report Impression - Status: SIGNED Entered: 10/01/2018 0748 IMPRESSION:Mild left basilar atelectasis and/or pleural fluid.Impression By: [email or web address] Acacia Juarez MD Diagnosis, Assessment Plan Free Text DxA P NotesFree text DxA P notes: Diagnosis, Assessment Plan Free Text DxA P NotesFree Text DxA P Notes:pt is 72 y/o female with h/o CAD and stent , HTN, HLD, hypothyroidism underwent Procedures performed:Right carotid endarterectomy with hemashield patch arterioplasty. pt is admitted for post op care. plan: contieu treatment per dr kc and monitor clinical recovery. 10/01/18: blood pressure became uncontrolled requiring restarting of nicardipine drip. resume home medications and monitor for bp control. Quality MedicationsCurrent medication review:I attest that the foregoing medication list in the medical record is true, accurate, and complete to the best of my knowledge. Advanced Care Plan 65 or OlderDiscussed with: patient, surrogate decis. makerDiscussion included: code status (full code) Tobacco Use/CounselingTobacco use/counseling: non tobacco user HTN Screening/Follow-upB/P assess/follow-up: pre-existing hx of HTN at 1944 RPT #:[id number] OF REPORTPRProgress [id number]:00:00Z.[id number] for patient ypdaFEKXRHCAVZODHI5419-14-61U20:44:57 [facility] 2018-10-01 10:27:00 [id number]/G9fcabV Bpjcmj7vIMTBXgkYy /xtZ4R74J41QntFpMeUNBhZStp0325-84-32O28:27:00 [facility])Cardiovascular Surgery ProgREPORT#:[id number] REPORT STATUS: SignedDATE:10/01/18 TIME: 1027 PATIENT: RACHEAL SABILLON UNIT #: [id number]#: [id number] [address]-UJFR: 46 AGE: 72 SEX: F ATTEND: Rohith Kc [facility] AUTHOR: Billie Valadez NP * ALL edits or amendments must be made on the electronic/computer document * GeneralPost-op: day 1Status post:Right CEA SubjectivePatient reports:Yes: incisional pain (right neck). No: chest pain, nausea, vomiting. Comments:Seen at bedsideReports right neck incision painTongue is midline without deviation, mild left facial droop. No swallowing difficultiesHas ambulated well with PT this morning without any focal difficulties. Review of SystemsConstitutional:Denies: chills, fatigue, fever, generalized weakness. Respiratory:Denies: NEGRO (dyspnea on exertion), SOB. Cardiovascular:Denies: chest pain, NEGRO (dyspnea on exertion), edema, orthopnea, palpitations. Objective Physical ExamVS/I O:Last Documented: Result Date Time Pulse Ox 100 10/01 0700 B/P 129/68 10/01 0700 B/P Mean 91 10/01 0700 Pulse 84 10/01 0700 Resp 20 10/01 0700 Temp 98.7 10/01 0400 O2 Delivery Nasal cannula 10/01 1999 O2 Flow Rate 2.148527 10/01 1999 FiO2 40 09/30 1512 24 hour I O ending at 0700: 10/01 0700 09/30 1900 Intake Total 1245.00 1490.00 Output Total 1330 1240 Balance -85.00 250.00 Intake, IV 1005.00 1490.00 Intake, Oral 240 Output, 60 40 Drainage Output, 20 Emesis Output, Urine 1250 1200 Patient 70.864 kg Weight Weight Standing scale Measurement Method Patient Weight Weight (lb): 156Weight (oz): 3.65Weight (kg): 70.76 Medications:Active Meds + DC'd Last 24 HrsAspirin 81 MG DAILY PO (DC) Aspirin 81 MG DAILY PO Clopidogrel Bisulfate 75 MG DAILY PO (DC) Clopidogrel Bisulfate 75 MG DAILY PO Hydrochlorothiazide 12.5 MG DAILY PO Isosorbide Mononitrate 30 MG DAILY PO Losartan Potassium 100 MG DAILY PO Metoprolol Succinate 100 MG DAILY PO Magnesium Sulfate/Dextrose 100 ML ONCE ONE IV (DC) Dextrose/Sodium Chloride 1,000 ML Q20H IV (CAN) Levothyroxine Sodium 100 MCG DAILY@0630 PO Potassium Chloride 50 ML ONCE ONE IV (DC) Atorvastatin Calcium 40 MG BEDTIME PO Famotidine 20 MG Q12HR IV Mupirocin 1 APPLIC BID NASAL Potassium Chloride 50 ML Q1H IV (DC) Potassium Chloride 50 ML ONCE ONE IV (DC) Magnesium Sulfate 50 ML NOW ONE IV (DC) Potassium Chloride 50 ML Q2H IV (DC) Potassium Chloride/Dextrose/Sod Cl 1,000 ML Q12H IV Cefazolin Sodium 1,000 MG Q8H IV (DC) Sodium Chloride 10 MLAcetaminophen/Codeine Phosphate 2 UDTAB Q4H PRN PRN PO Acetaminophen/Codeine Phosphate 1 UDTAB Q4H PRN PRN PO Meperidine HCl 25 MG Q4H PRN PRN IM Meperidine HCl 50 MG Q4H PRN PRN IM Acetaminophen 650 MG Q8H PRN PRN PO Acetaminophen 650 MG Q4H PRN PRN PO Benzocaine/Menthol 1 EACH Q2H PRN PRN MM (CKD) Bisacodyl 10 MG ASDIR PRN RECTAL Calcium Gluconate 1,000 MG ASDIR PRN IV Sodium Chloride 100 MLNicardipine HCl 25 MG ASDIR PRN IV Sodium Chloride 250 MLNifedipine 10 MG Q4H PRN PRN SL Ondansetron HCl 4 MG Q8H PRN PRN IV Phenol 5 SPRAY Q2H PRN PRN MM Potassium Chloride 10 MEQ ASDIR PRN PO Glycopyrrolate 0 .STK-MED ONE .ROUTE (DC) Nicardipine HCl 25 MG ASDIR IV (DC) Sodium Chloride 250 MLBacitracin 0 .STK-MED ONE Z (DC) Nicardipine HCl 250 ML .STK-MED ONE IV (DC) Protamine Sulfate 0 .STK-MED ONE IV (DC) Heparin Sodium 0 .STK-MED ONE IV (DC) Heparin Sodium/Sodium Chloride 500 ML .STK-MED ONE IV (DC) Phenylephrine HCl 100 ML .STK-MED ONE IV (DC) Hydralazine HCl 0 .STK-MED ONE .ROUTE (DC) Etomidate 0 .STK-MED ONE .ROUTE (DC) Fentanyl Citrate 0 .STK-MED ONE .ROUTE (DC) Propofol 0 .STK-MED ONE .ROUTE (DC) Lidocaine HCl 0 .STK-MED ONE INJ (DC) Cefazolin Sodium 2,000 MG ONCALL IV (DC) Acetaminophen 650 MG Q4H PRN PRN PO (DC) Magnesium Hydroxide 30 ML ASDIR PRN PO Zolpidem Tartrate 5 MG BEDTIME PRN PRN PO General appearance: alert, awake, oriented, no acute distressWound/incision: Location: right neck Site condition: dressing clean dry, dressing intact, incision intact, no drainage, no ecchymosisNeck: tenderness (right neck), Right IJ BLAKE with minimal serosanguinous drainageCardiovascular: BP/pulses equal bilat., normal heart sounds, regular rate rhythmRespiratory: aerating well, clear to auscultation, symmetric expansion, no distressAbdomen: soft, non-tender, normal bowel sounds, no distentionGenitourinary: foleyExtremities: moves all, no edemaNeuro/HAZARDOUS MATERIALS TANKER DRIVER: alert, oriented X 3, CNII-XII intacte, normal [...] O2 Delivery Device FT/NC FiO2 (%) 40 Laboratory Tests 10/01 09/30 09/30 0450 [id number] 1515 Chemistry Sodium (137 - 145 MMOL/L) 136 L 138 Potassium (3.5 - 5.1 MMOL/L) 3.9 3.3 L 3.1 L Chloride (98 - 107 MMOL/L) 96 L 100 Carbon Dioxide (22 - 30 MMOL/L) 32 H 31 H BUN (7 - 17 MG/DL) 7 10 Creatinine (0.52 - 1.04 MG/DL) 0.60 0.60 Glomerular Filtr Rate > 60 > 60 Glucose (74 - 106 MG/DL) 132 H 119 H Calcium (8.4 - 10.2 MG/DL) 8.7 8.9 Magnesium (1.6 - 2.3 MG/DL) 1.7 1.7 1.3 L Laboratory Tests 10/01 09/30 0450 1515 Hematology WBC (3.8 - 9.8 K/MM3) 10.7 H 10.8 H RBC (3.58 - 4.97 M/MM3) 3.70 3.64 Hgb (11.2 - 14.9 G/DL) 12.0 11.8 Hct (33.2 - 43.5 %) 36.0 35.3 MCV (80.7 - 99.1 fL) 97 97 MCH (27.0 - 34.1 pg) 32.4 32.4 MCHC (32.2 - 35.7 %) 33.3 33.4 RDW (12.1 - 15.2 %) 15.2 14.9 Plt Count (129 - 368 K/MM3) 298 281 MPV (7.4 - 10.4 fl) 8.8 8.9 Neut % (Auto) (43 - 75 %) 82.2 H 55.0 Lymph % (Auto) (14 - 44 %) 8.7 L 30.3 [place] % (Auto) (4 - 13 %) 8.4 10.8 Eos % (Auto) (0 - 6 %) 0.1 3.0 Baso % (Auto) (0 - 2 %) 0.2 0.3 Neut # (Auto) (2.0 - 7.6 K/mm3) 8.82 H 5.97 Lymph # (Auto) (1.0 - 3.8 K/mm3) 0.93 L 3.28 [place] # (Auto) (0.1 - 0.8 K/mm3) 0.90 H 1.17 H Eos # (Auto) (0.0 - 0.2 K/mm3) 0.01 0.32 H Baso # (Auto) (0.0 - 0.2 K/mm3) 0.02 0.03 Immature Gran % (0.0 - 2.0 %) 0.4 0.6 Nucleated RBC % (0 - 1.0 %) 0.0 0.0 Nucleated RBCs # (Man) (0.0 - 0.1 K/mm3) 0.00 0.00 Radiology data:Recent Impressions:RADIOLOGY - XR CHEST 1V 09/30 1516 Report Impression - Status: SIGNED Entered: 09/30/2018 1532 IMPRESSION:Mild congestive changes bilaterally. No pneumothorax. Impression By: Bernie Zuniga MDRADIOLOGY - XR CHEST 1V 10/01 0449 Report Impression - Status: SIGNED Entered: 10/01/2018 0748 IMPRESSION:Mild left basilar atelectasis and/or pleural fluid.Impression By: Krishna - Kayode Juarez MD Diagnosis, Assessment PlanFree Text A P:This is a 72 Y/F with LITTLE stenosisS/p Right CEA-tongue is midline without deviation, mild left facial droopOn statin/plavix/aspirinD/C right IJ BLAKE drain todayHTN-home meds resumed.DVT prophylaxis-SCDs and TEDsD/C foleyD/C radial arterial lineEncourage IS and ambulationPlan: CVU transfer this afternoon with stable B/P. Plan discussed with: patient, collaborating MD (Dr. Kc) at 1105 RPT #:[id number] OF REPORTPRProgress [id number]:27:00Z.[id number] for patient peokPWJYSOWEJLXKUL2142-97-86Y25:05:44 [facility] 2018-10-01 10:27:00 [id number]+AiaXYmVENs6A bld3yWjHxq0aFc1Ox KwL+gUULRKZU7wwtEVHFIh9EJF7065-91-68D01:27:00 [facility] ([facility])Cardiovascular Surgery ProgREPORT#:[id number] REPORT STATUS: SignedDATE:10/01/18 TIME: 1027 PATIENT: RACHEAL SABILLON UNIT #: [id number]#: [id number] [address] AGE: 72 SEX: F ATTEND: Rohith Kc [facility] AUTHOR: Billie Valadez NP * ALL edits or amendments must be made on the electronic/computer document * See AddendumGeneralPost-op: day 1Status post:Right CEA SubjectivePatient reports:Yes: incisional pain (right neck). No: chest pain, nausea, vomiting. Comments:Seen at bedsideReports right neck incision painTongue is midline without deviation, mild left facial droop. No swallowing difficultiesHas ambulated well with PT this morning without any focal difficulties. Review of SystemsConstitutional:Denies: chills, fatigue, fever, generalized weakness. Respiratory:Denies: NEGRO (dyspnea on exertion), SOB. Cardiovascular:Denies: chest pain, NEGRO (dyspnea on exertion), edema, orthopnea, palpitations. Objective Physical ExamVS/I O:Last Documented: Result Date Time Pulse Ox 100 10/01 0700 B/P 129/68 10/01 0700 B/P Mean 91 10/01 0700 Pulse 84 10/01 0700 Resp 20 10/01 0700 Temp 98.7 10/01 0400 O2 Delivery Nasal cannula 10/01 1999 O2 Flow Rate 2.565862 10/01 1999 FiO2 40 09/30 1512 24 hour I O ending at 0700: 10/01 0700 09/30 1900 Intake Total 1245.00 1490.00 Output Total 1330 1240 Balance -85.00 250.00 Intake, IV 1005.00 1490.00 Intake, Oral 240 Output, 60 40 Drainage Output, 20 Emesis Output, Urine 1250 1200 Patient 70.864 kg Weight Weight Standing scale Measurement Method Patient Weight Weight (lb): 156Weight (oz): 3.65Weight (kg): 70.76 Medications:Active Meds + DC'd Last 24 HrsAspirin 81 MG DAILY PO (DC) Aspirin 81 MG DAILY PO Clopidogrel Bisulfate 75 MG DAILY PO (DC) Clopidogrel Bisulfate 75 MG DAILY PO Hydrochlorothiazide 12.5 MG DAILY PO Isosorbide Mononitrate 30 MG DAILY PO Losartan Potassium 100 MG DAILY PO Metoprolol Succinate 100 MG DAILY PO Magnesium Sulfate/Dextrose 100 ML ONCE ONE IV (DC) Dextrose/Sodium Chloride 1,000 ML Q20H IV (CAN) Levothyroxine Sodium 100 MCG DAILY@0630 PO Potassium Chloride 50 ML ONCE ONE IV (DC) Atorvastatin Calcium 40 MG BEDTIME PO Famotidine 20 MG Q12HR IV Mupirocin 1 APPLIC BID NASAL Potassium Chloride 50 ML Q1H IV (DC) Potassium Chloride 50 ML ONCE ONE IV (DC) Magnesium Sulfate 50 ML NOW ONE IV (DC) Potassium Chloride 50 ML Q2H IV (DC) Potassium Chloride/Dextrose/Sod Cl 1,000 ML Q12H IV Cefazolin Sodium 1,000 MG Q8H IV (DC) Sodium Chloride 10 MLAcetaminophen/Codeine Phosphate 2 UDTAB Q4H PRN PRN PO Acetaminophen/Codeine Phosphate 1 UDTAB Q4H PRN PRN PO Meperidine HCl 25 MG Q4H PRN PRN IM Meperidine HCl 50 MG Q4H PRN PRN IM Acetaminophen 650 MG Q8H PRN PRN PO Acetaminophen 650 MG Q4H PRN PRN PO Benzocaine/Menthol 1 EACH Q2H PRN PRN MM (CKD) Bisacodyl 10 MG ASDIR PRN RECTAL Calcium Gluconate 1,000 MG ASDIR PRN IV Sodium Chloride 100 MLNicardipine HCl 25 MG ASDIR PRN IV Sodium Chloride 250 MLNifedipine 10 MG Q4H PRN PRN SL Ondansetron HCl 4 MG Q8H PRN PRN IV Phenol 5 SPRAY Q2H PRN PRN MM Potassium Chloride 10 MEQ ASDIR PRN PO Glycopyrrolate 0 .STK-MED ONE .ROUTE (DC) Nicardipine HCl 25 MG ASDIR IV (DC) Sodium Chloride 250 MLBacitracin 0 .STK-MED ONE Z (DC) Nicardipine HCl 250 ML .STK-MED ONE IV (DC) Protamine Sulfate 0 .STK-MED ONE IV (DC) Heparin Sodium 0 .STK-MED ONE IV (DC) Heparin Sodium/Sodium Chloride 500 ML .STK-MED ONE IV (DC) Phenylephrine HCl 100 ML .STK-MED ONE IV (DC) Hydralazine HCl 0 .STK-MED ONE .ROUTE (DC) Etomidate 0 .STK-MED ONE .ROUTE (DC) Fentanyl Citrate 0 .STK-MED ONE .ROUTE (DC) Propofol 0 .STK-MED ONE .ROUTE (DC) Lidocaine HCl 0 .STK-MED ONE INJ (DC) Cefazolin Sodium 2,000 MG ONCALL IV (DC) Acetaminophen 650 MG Q4H PRN PRN PO (DC) Magnesium Hydroxide 30 ML ASDIR PRN PO Zolpidem Tartrate 5 MG BEDTIME PRN PRN PO General appearance: alert, awake, oriented, no acute distressWound/incision: Location: right neck Site condition: dressing clean dry, dressing intact, incision intact, no drainage, no ecchymosisNeck: tenderness (right neck), Right IJ BLAKE with minimal serosanguinous drainageCardiovascular: BP/pulses equal bilat., normal heart sounds, regular rate rhythmRespiratory: aerating well, clear to auscultation, symmetric expansion, no distressAbdomen: soft, non-tender, normal bowel sounds, no distentionGenitourinary: foleyExtremities: moves all, no edemaNeuro/HAZARDOUS MATERIALS TANKER DRIVER: alert, oriented X 3, CNII-XII intacte, normal [...] O2 Delivery Device FT/NC FiO2 (%) 40 Laboratory Tests 10/01 09/30 09/30 0450 2215 1515 Chemistry Sodium (137 - 145 MMOL/L) 136 L 138 Potassium (3.5 - 5.1 MMOL/L) 3.9 3.3 L 3.1 L Chloride (98 - 107 MMOL/L) 96 L 100 Carbon Dioxide (22 - 30 MMOL/L) 32 H 31 H BUN (7 - 17 MG/DL) 7 10 Creatinine (0.52 - 1.04 MG/DL) 0.60 0.60 Glomerular Filtr Rate > 60 > 60 Glucose (74 - 106 MG/DL) 132 H 119 H Calcium (8.4 - 10.2 MG/DL) 8.7 8.9 Magnesium (1.6 - 2.3 MG/DL) 1.7 1.7 1.3 L Laboratory Tests 10/01 09/30 0450 1515 Hematology WBC (3.8 - 9.8 K/MM3) 10.7 H 10.8 H RBC (3.58 - 4.97 M/MM3) 3.70 3.64 Hgb (11.2 - 14.9 G/DL) 12.0 11.8 Hct (33.2 - 43.5 %) 36.0 35.3 MCV (80.7 - 99.1 fL) 97 97 MCH (27.0 - 34.1 pg) 32.4 32.4 MCHC (32.2 - 35.7 %) 33.3 33.4 RDW (12.1 - 15.2 %) 15.2 14.9 Plt Count (129 - 368 K/MM3) 298 281 MPV (7.4 - 10.4 fl) 8.8 8.9 Neut % (Auto) (43 - 75 %) 82.2 H 55.0 Lymph % (Auto) (14 - 44 %) 8.7 L 30.3 [place] % (Auto) (4 - 13 %) 8.4 10.8 Eos % (Auto) (0 - 6 %) 0.1 3.0 Baso % (Auto) (0 - 2 %) 0.2 0.3 Neut # (Auto) (2.0 - 7.6 K/mm3) 8.82 H 5.97 Lymph # (Auto) (1.0 - 3.8 K/mm3) 0.93 L 3.28 [place] # (Auto) (0.1 - 0.8 K/mm3) 0.90 H 1.17 H Eos # (Auto) (0.0 - 0.2 K/mm3) 0.01 0.32 H Baso # (Auto) (0.0 - 0.2 K/mm3) 0.02 0.03 Immature Gran % (0.0 - 2.0 %) 0.4 0.6 Nucleated RBC % (0 - 1.0 %) 0.0 0.0 Nucleated RBCs # (Man) (0.0 - 0.1 K/mm3) 0.00 0.00 Radiology data:Recent Impressions:RADIOLOGY - XR CHEST 1V 09/30 1516 Report Impression - Status: SIGNED Entered: 09/30/2018 1532 IMPRESSION:Mild congestive changes bilaterally. No pneumothorax. Impression By: Bernie Zuniga MDRADIOLOGY - XR CHEST 1V 10/01 0449 Report Impression - Status: SIGNED Entered: 10/01/2018 0748 IMPRESSION:Mild left basilar atelectasis and/or pleural fluid.Impression By: Krishna - Kayode Juarez MD Diagnosis, Assessment PlanFree Text A P:This is a 72 Y/F with LITTLE stenosisS/p Right CEA-tongue is midline without deviation, mild left facial droopOn statin/plavix/aspirinD/C right IJ BLAKE drain todayHTN-home meds resumed.DVT prophylaxis-SCDs and TEDsD/C foleyD/C radial arterial lineEncourage IS and ambulationPlan: CVU transfer this afternoon with stable B/P. Plan discussed with: patient, collaborating MD (Dr. Kc) at 1105 Addendum 1: 10/01/18 1516 by Billie Valadez [employer]ING [employer] for Rohiht Kc MD A/PHTN-B/B elevated with systolic 180-200's this afternoon. Patient restrated on cardene gtt. procardia SL ordered. Will monitor in ICU. Patinet remains neurologically intact. right neck dressing D/c/I. D/w with Dr. Kc, patient,and BS RN. at 1518 RPT #:[id number] OF REPORTPRProgress [id number]:27:00Z.[id number] for patient uihaHASJNFTSQXRVRP8529-44-49N70:18:51 [facility] 2018-10-01 10:27:00 [id number] 4AyWqvnOXwWwPm1R2 Id886rIc53D13d4eW1sixf4Dz89092-99-45J02:27:00 [facility] ([facility])Cardiovascular Surgery ProgREPORT#:[id number] REPORT STATUS: SignedDATE:10/01/18 TIME: 1027 PATIENT: RACHEAL SABILLON UNIT #: [id number]#: [id number] [address]: [address] AGE: 72 SEX: F ATTEND: Rohith Kc [facility] AUTHOR: Billie Valadez NP * ALL edits or amendments must be made on the electronic/computer document * See AddendumGeneralPost-op: day 1Status post:Right CEA SubjectivePatient reports:Yes: incisional pain (right neck). No: chest pain, nausea, vomiting. Comments:Seen at bedsideReports right neck incision painTongue is midline without deviation, mild left facial droop. No swallowing difficultiesHas ambulated well with PT this morning without any focal difficulties. Review of SystemsConstitutional:Denies: chills, fatigue, fever, generalized weakness. Respiratory:Denies: NEGRO (dyspnea on exertion), SOB. Cardiovascular:Denies: chest pain, NEGRO (dyspnea on exertion), edema, orthopnea, palpitations. Objective Physical ExamVS/I O:Last Documented: Result Date Time Pulse Ox 100 10/01 0700 B/P 129/68 10/01 0700 B/P Mean 91 10/01 0700 Pulse 84 10/01 0700 Resp 20 10/01 0700 Temp 98.7 10/01 0400 O2 Delivery Nasal cannula 10/01 1999 O2 Flow Rate 2.407259 10/01 1999 FiO2 40 09/30 1512 24 hour I O ending at 0700: 10/01 0700 09/30 1900 Intake Total 1245.00 1490.00 Output Total 1330 1240 Balance -85.00 250.00 Intake, IV 1005.00 1490.00 Intake, Oral 240 Output, 60 40 Drainage Output, 20 Emesis Output, Urine 1250 1200 Patient 70.864 kg Weight Weight Standing scale Measurement Method Patient Weight Weight (lb): 156Weight (oz): 3.65Weight (kg): 70.76 Medications:Active Meds + DC'd Last 24 HrsAspirin 81 MG DAILY PO (DC) Aspirin 81 MG DAILY PO Clopidogrel Bisulfate 75 MG DAILY PO (DC) Clopidogrel Bisulfate 75 MG DAILY PO Hydrochlorothiazide 12.5 MG DAILY PO Isosorbide Mononitrate 30 MG DAILY PO Losartan Potassium 100 MG DAILY PO Metoprolol Succinate 100 MG DAILY PO Magnesium Sulfate/Dextrose 100 ML ONCE ONE IV (DC) Dextrose/Sodium Chloride 1,000 ML Q20H IV (CAN) Levothyroxine Sodium 100 MCG DAILY@0630 PO Potassium Chloride 50 ML ONCE ONE IV (DC) Atorvastatin Calcium 40 MG BEDTIME PO Famotidine 20 MG Q12HR IV Mupirocin 1 APPLIC BID NASAL Potassium Chloride 50 ML Q1H IV (DC) Potassium Chloride 50 ML ONCE ONE IV (DC) Magnesium Sulfate 50 ML NOW ONE IV (DC) Potassium Chloride 50 ML Q2H IV (DC) Potassium Chloride/Dextrose/Sod Cl 1,000 ML Q12H IV Cefazolin Sodium 1,000 MG Q8H IV (DC) Sodium Chloride 10 MLAcetaminophen/Codeine Phosphate 2 UDTAB Q4H PRN PRN PO Acetaminophen/Codeine Phosphate 1 UDTAB Q4H PRN PRN PO Meperidine HCl 25 MG Q4H PRN PRN IM Meperidine HCl 50 MG Q4H PRN PRN IM Acetaminophen 650 MG Q8H PRN PRN PO Acetaminophen 650 MG Q4H PRN PRN PO Benzocaine/Menthol 1 EACH Q2H PRN PRN MM (CKD) Bisacodyl 10 MG ASDIR PRN RECTAL Calcium Gluconate 1,000 MG ASDIR PRN IV Sodium Chloride 100 MLNicardipine HCl 25 MG ASDIR PRN IV Sodium Chloride 250 MLNifedipine 10 MG Q4H PRN PRN SL Ondansetron HCl 4 MG Q8H PRN PRN IV Phenol 5 SPRAY Q2H PRN PRN MM Potassium Chloride 10 MEQ ASDIR PRN PO Glycopyrrolate 0 .STK-MED ONE .ROUTE (DC) Nicardipine HCl 25 MG ASDIR IV (DC) Sodium Chloride 250 MLBacitracin 0 .STK-MED ONE Z (DC) Nicardipine HCl 250 ML .STK-MED ONE IV (DC) Protamine Sulfate 0 .STK-MED ONE IV (DC) Heparin Sodium 0 .STK-MED ONE IV (DC) Heparin Sodium/Sodium Chloride 500 ML .STK-MED ONE IV (DC) Phenylephrine HCl 100 ML .STK-MED ONE IV (DC) Hydralazine HCl 0 .STK-MED ONE .ROUTE (DC) Etomidate 0 .STK-MED ONE .ROUTE (DC) Fentanyl Citrate 0 .STK-MED ONE .ROUTE (DC) Propofol 0 .STK-MED ONE .ROUTE (DC) Lidocaine HCl 0 .STK-MED ONE INJ (DC) Cefazolin Sodium 2,000 MG ONCALL IV (DC) Acetaminophen 650 MG Q4H PRN PRN PO (DC) Magnesium Hydroxide 30 ML ASDIR PRN PO Zolpidem Tartrate 5 MG BEDTIME PRN PRN PO General appearance: alert, awake, oriented, no acute distressWound/incision: Location: right neck Site condition: dressing clean dry, dressing intact, incision intact, no drainage, no ecchymosisNeck: tenderness (right neck), Right IJ BLAKE with minimal serosanguinous drainageCardiovascular: BP/pulses equal bilat., normal heart sounds, regular rate rhythmRespiratory: aerating well, clear to auscultation, symmetric expansion, no distressAbdomen: soft, non-tender, normal bowel sounds, no distentionGenitourinary: foleyExtremities: moves all, no edemaNeuro/HAZARDOUS MATERIALS TANKER DRIVER: alert, oriented X 3, CNII-XII intacte, normal [...] O2 Delivery Device FT/NC FiO2 (%) 40 Laboratory Tests 10/01 2215 1515 Chemistry Sodium (137 - 145 MMOL/L) 136 L 138 Potassium (3.5 - 5.1 MMOL/L) 3.9 3.3 L 3.1 L Chloride (98 - 107 MMOL/L) 96 L 100 Carbon Dioxide (22 - 30 MMOL/L) 32 H 31 H BUN (7 - 17 MG/DL) 7 10 Creatinine (0.52 - 1.04 MG/DL) 0.60 0.60 Glomerular Filtr Rate > 60 > 60 Glucose (74 - 106 MG/DL) 132 H 119 H Calcium (8.4 - 10.2 MG/DL) 8.7 8.9 Magnesium (1.6 - 2.3 MG/DL) 1.7 1.7 1.3 L Laboratory Tests 10/01 09/30 0450 1515 Hematology WBC (3.8 - 9.8 K/MM3) 10.7 H 10.8 H RBC (3.58 - 4.97 M/MM3) 3.70 3.64 Hgb (11.2 - 14.9 G/DL) 12.0 11.8 Hct (33.2 - 43.5 %) 36.0 35.3 MCV (80.7 - 99.1 fL) 97 97 MCH (27.0 - 34.1 pg) 32.4 32.4 MCHC (32.2 - 35.7 %) 33.3 33.4 RDW (12.1 - 15.2 %) 15.2 14.9 Plt Count (129 - 368 K/MM3) 298 281 MPV (7.4 - 10.4 fl) 8.8 8.9 Neut % (Auto) (43 - 75 %) 82.2 H 55.0 Lymph % (Auto) (14 - 44 %) 8.7 L 30.3 [place] % (Auto) (4 - 13 %) 8.4 10.8 Eos % (Auto) (0 - 6 %) 0.1 3.0 Baso % (Auto) (0 - 2 %) 0.2 0.3 Neut # (Auto) (2.0 - 7.6 K/mm3) 8.82 H 5.97 Lymph # (Auto) (1.0 - 3.8 K/mm3) 0.93 L 3.28 [place] # (Auto) (0.1 - 0.8 K/mm3) 0.90 H 1.17 H Eos # (Auto) (0.0 - 0.2 K/mm3) 0.01 0.32 H Baso # (Auto) (0.0 - 0.2 K/mm3) 0.02 0.03 Immature Gran % (0.0 - 2.0 %) 0.4 0.6 Nucleated RBC % (0 - 1.0 %) 0.0 0.0 Nucleated RBCs # (Man) (0.0 - 0.1 K/mm3) 0.00 0.00 Radiology data:Recent Impressions:RADIOLOGY - XR CHEST 1V 09/30 1516 Report Impression - Status: SIGNED Entered: 09/30/2018 1532 IMPRESSION:Mild congestive changes bilaterally. No pneumothorax. Impression By: 16 - Ryann Zuniga MDRADIOLOGY - XR CHEST 1V 10/01 0449 Report Impression - Status: SIGNED Entered: 10/01/2018 0748 IMPRESSION:Mild left basilar atelectasis and/or pleural fluid.Impression By: LakePR7 - Kayode Juarez MD Diagnosis, Assessment PlanFree Text A P:This is a 72 Y/F with LITTLE stenosisS/p Right CEA-tongue is midline without deviation, mild left facial droopOn statin/plavix/aspirinD/C right IJ BLAKE drain todayHTN-home meds resumed.DVT prophylaxis-SCDs and TEDsD/C foleyD/C radial arterial lineEncourage IS and ambulationPlan: CVU transfer this afternoon with stable B/P. Plan discussed with: patient, collaborating MD (Dr. Kc) at 1105 Addendum 1: 10/01/18 1516 by Billie Valadez NP A/PHTN-B/B elevated with systolic 180-200's this afternoon. Patient restrated on cardene gtt. procardia SL ordered. Will monitor in ICU. Robin remains neurologically intact. right neck dressing D/c/I. D/w with Dr. Kc, patient,and BS RN. at 1518 at 1954 RPT #:[id number] OF REPORTPRProgress [id number]:27:00Z.[id number] for patient ieehJXAVQLLQGTXUML1344-62-22F40:54:49 [facility] 2018-10-01 10:27:00 [id number]/gpbXIgLRXlM qBpGSsN29OdSAA82p wg7vn2y/YUdXq8fCrUjezyUwkS7559-81-07Z87:27:00 [facility])Cardiovascular Surgery ProgREPORT#:[id number] REPORT STATUS: SignedDATE:10/01/18 TIME: 1027 PATIENT: RACHEAL SABILLON UNIT #: [id number]#: [id number] [address]: [address] AGE: 72 SEX: F ATTEND: Rohith Kc [facility] AUTHOR: Billie Valadez NP * ALL edits or amendments must be made on the electronic/computer document * See AddendumGeneralPost-op: day 1Status post:Right CEA SubjectivePatient reports:Yes: incisional pain (right neck). No: chest pain, nausea, vomiting. Comments:Seen at bedsideReports right neck incision painTongue is midline without deviation, mild left facial droop. No swallowing difficultiesHas ambulated well with PT this morning without any focal difficulties. Review of SystemsConstitutional:Denies: chills, fatigue, fever, generalized weakness. Respiratory:Denies: NEGRO (dyspnea on exertion), SOB. Cardiovascular:Denies: chest pain, NEGRO (dyspnea on exertion), edema, orthopnea, palpitations. Objective Physical ExamVS/I O:Last Documented: Result Date Time Pulse Ox 100 10/01 0700 B/P 129/68 10/01 07 B/P Mean 91 10/01 07 Pulse 84 10/01 0700 Resp 20 10/01 07 Temp 98.7 10/01 0400 O2 Delivery Nasal cannula 10/01 1999 O2 Flow Rate 2.217937 10/01 1999 FiO2 40 09/30 1512 24 hour I O ending at 0700: 10/01 0700 09/30 1900 Intake Total 1245.00 1490.00 Output Total 1330 1240 Balance -85.00 250.00 Intake, IV 1005.00 1490.00 Intake, Oral 240 Output, 60 40 Drainage Output, 20 Emesis Output, Urine 1250 1200 Patient 70.864 kg Weight Weight Standing scale Measurement Method Patient Weight Weight (lb): 156Weight (oz): 3.65Weight (kg): 70.76 Medications:Active Meds + DC'd Last 24 HrsAspirin 81 MG DAILY PO (DC) Aspirin 81 MG DAILY PO Clopidogrel Bisulfate 75 MG DAILY PO (DC) Clopidogrel Bisulfate 75 MG DAILY PO Hydrochlorothiazide 12.5 MG DAILY PO Isosorbide Mononitrate 30 MG DAILY PO Losartan Potassium 100 MG DAILY PO Metoprolol Succinate 100 MG DAILY PO Magnesium Sulfate/Dextrose 100 ML ONCE ONE IV (DC) Dextrose/Sodium Chloride 1,000 ML Q20H IV (CAN) Levothyroxine Sodium 100 MCG DAILY@0630 PO Potassium Chloride 50 ML ONCE ONE IV (DC) Atorvastatin Calcium 40 MG BEDTIME PO Famotidine 20 MG Q12HR IV Mupirocin 1 APPLIC BID NASAL Potassium Chloride 50 ML Q1H IV (DC) Potassium Chloride 50 ML ONCE ONE IV (DC) Magnesium Sulfate 50 ML NOW ONE IV (DC) Potassium Chloride 50 ML Q2H IV (DC) Potassium Chloride/Dextrose/Sod Cl 1,000 ML Q12H IV Cefazolin Sodium 1,000 MG Q8H IV (DC) Sodium Chloride 10 MLAcetaminophen/Codeine Phosphate 2 UDTAB Q4H PRN PRN PO Acetaminophen/Codeine Phosphate 1 UDTAB Q4H PRN PRN PO Meperidine HCl 25 MG Q4H PRN PRN IM Meperidine HCl 50 MG Q4H PRN PRN IM Acetaminophen 650 MG Q8H PRN PRN PO Acetaminophen 650 MG Q4H PRN PRN PO Benzocaine/Menthol 1 EACH Q2H PRN PRN MM (CKD) Bisacodyl 10 MG ASDIR PRN RECTAL Calcium Gluconate 1,000 MG ASDIR PRN IV Sodium Chloride 100 MLNicardipine HCl 25 MG ASDIR PRN IV Sodium Chloride 250 MLNifedipine 10 MG Q4H PRN PRN SL Ondansetron HCl 4 MG Q8H PRN PRN IV Phenol 5 SPRAY Q2H PRN PRN MM Potassium Chloride 10 MEQ ASDIR PRN PO Glycopyrrolate 0 .STK-MED ONE .ROUTE (DC) Nicardipine HCl 25 MG ASDIR IV (DC) Sodium Chloride 250 MLBacitracin 0 .STK-MED ONE Z (DC) Nicardipine HCl 250 ML .STK-MED ONE IV (DC) Protamine Sulfate 0 .STK-MED ONE IV (DC) Heparin Sodium 0 .STK-MED ONE IV (DC) Heparin Sodium/Sodium Chloride 500 ML .STK-MED ONE IV (DC) Phenylephrine HCl 100 ML .STK-MED ONE IV (DC) Hydralazine HCl 0 .STK-MED ONE .ROUTE (DC) Etomidate 0 .STK-MED ONE .ROUTE (DC) Fentanyl Citrate 0 .STK-MED ONE .ROUTE (DC) Propofol 0 .STK-MED ONE .ROUTE (DC) Lidocaine HCl 0 .STK-MED ONE INJ (DC) Cefazolin Sodium 2,000 MG ONCALL IV (DC) Acetaminophen 650 MG Q4H PRN PRN PO (DC) Magnesium Hydroxide 30 ML ASDIR PRN PO Zolpidem Tartrate 5 MG BEDTIME PRN PRN PO General appearance: alert, awake, oriented, no acute distressWound/incision: Location: right neck Site condition: dressing clean dry, dressing intact, incision intact, no drainage, no ecchymosisNeck: tenderness (right neck), Right IJ BLAKE with minimal serosanguinous drainageCardiovascular: BP/pulses equal bilat., normal heart sounds, regular rate rhythmRespiratory: aerating well, clear to auscultation, symmetric expansion, no distressAbdomen: soft, non-tender, normal bowel sounds, no distentionGenitourinary: foleyExtremities: moves all, no edemaNeuro/HAZARDOUS MATERIALS TANKER DRIVER: alert, oriented X 3, CNII-XII intacte, normal [...] O2 Delivery Device FT/NC FiO2 (%) 40 Laboratory Tests 10/01 09/30 09/30 0450 2215 1515 Chemistry Sodium (137 - 145 MMOL/L) 136 L 138 Potassium (3.5 - 5.1 MMOL/L) 3.9 3.3 L 3.1 L Chloride (98 - 107 MMOL/L) 96 L 100 Carbon Dioxide (22 - 30 MMOL/L) 32 H 31 H BUN (7 - 17 MG/DL) 7 10 Creatinine (0.52 - 1.04 MG/DL) 0.60 0.60 Glomerular Filtr Rate > 60 > 60 Glucose (74 - 106 MG/DL) 132 H 119 H Calcium (8.4 - 10.2 MG/DL) 8.7 8.9 Magnesium (1.6 - 2.3 MG/DL) 1.7 1.7 1.3 L Laboratory Tests 10/01 09/30 0450 1515 Hematology WBC (3.8 - 9.8 K/MM3) 10.7 H 10.8 H RBC (3.58 - 4.97 M/MM3) 3.70 3.64 Hgb (11.2 - 14.9 G/DL) 12.0 11.8 Hct (33.2 - 43.5 %) 36.0 35.3 MCV (80.7 - 99.1 fL) 97 97 MCH (27.0 - 34.1 pg) 32.4 32.4 MCHC (32.2 - 35.7 %) 33.3 33.4 RDW (12.1 - 15.2 %) 15.2 14.9 Plt Count (129 - 368 K/MM3) 298 281 MPV (7.4 - 10.4 fl) 8.8 8.9 Neut % (Auto) (43 - 75 %) 82.2 H 55.0 Lymph % (Auto) (14 - 44 %) 8.7 L 30.3 [place] % (Auto) (4 - 13 %) 8.4 10.8 Eos % (Auto) (0 - 6 %) 0.1 3.0 Baso % (Auto) (0 - 2 %) 0.2 0.3 Neut # (Auto) (2.0 - 7.6 K/mm3) 8.82 H 5.97 Lymph # (Auto) (1.0 - 3.8 K/mm3) 0.93 L 3.28 [place] # (Auto) (0.1 - 0.8 K/mm3) 0.90 H 1.17 H Eos # (Auto) (0.0 - 0.2 K/mm3) 0.01 0.32 H Baso # (Auto) (0.0 - 0.2 K/mm3) 0.02 0.03 Immature Gran % (0.0 - 2.0 %) 0.4 0.6 Nucleated RBC % (0 - 1.0 %) 0.0 0.0 Nucleated RBCs # (Man) (0.0 - 0.1 K/mm3) 0.00 0.00 Radiology data:Recent Impressions:RADIOLOGY - XR CHEST 1V 09/30 1516 Report Impression - Status: SIGNED Entered: 09/30/2018 1532 IMPRESSION:Mild congestive changes bilaterally. No pneumothorax. Impression By: 16 - Ryann Zuniga MDRADIOLOGY - XR CHEST 1V 10/01 0449 Report Impression - Status: SIGNED Entered: 10/01/2018 0748 IMPRESSION:Mild left basilar atelectasis and/or pleural fluid.Impression By: [email or web address] - Kayode Juarez MD Diagnosis, Assessment PlanFree Text A P:This is a 72 Y/F with LITTLE stenosisS/p Right CEA-tongue is midline without deviation, mild left facial droopOn statin/plavix/aspirinD/C right IJ BLAKE drain todayHTN-home meds resumed.DVT prophylaxis-SCDs and TEDsD/C foleyD/C radial arterial lineEncourage IS and ambulationPlan: CVU transfer this afternoon with stable B/P. Plan discussed with: patient, collaborating MD (Dr. Kc) at 1105 at 1955 Addendum 1: 10/01/18 1516 by Billie Valadez NP A/PHTN-B/B elevated with systolic 180-200's this afternoon. Patient restrated on cardene gtt. procardia SL ordered. Will monitor in ICU. Robin remains neurologically intact. right neck dressing D/c/I. D/w with Dr. Kc, patient,and BS RN. at 1518 at 1954 RPT #:[id number] OF REPORTPRProgress [id number] for patient [id number]:56:00 [facility] 2018-10-01 08:08:00 [id number] AqxWvmjxnYa9QYZd9 Y70Q+mI+k66EIazKsd7kajlfUj0211-75-80V50:08:535581-1571 [place] [address] PATIENT NAME: RACHEAL SABILLON ADMIT DATE: 09/30/18ACCOUNT NO: [id number] ROOM NO: Z.SI07 AGE: 72 REPORT TYPE: ELECTROCARDIOGRAM SEX: F ADMITTING PHYSICIAN:Rohith Kc MD ATTENDING PHYSICIAN:Rohith Kc MD Order:[id number] Reason : CAD Test Date/Time Stamp:SatOct 01 2018 08:08:06Blood Pressure : / mmHGVent. Rate : 072 BPM Atrial Rate : 072 BPM P-R Int : 158 ms QRS Dur : 078 ms QT Int : 396 ms P-R-T Axes : 071 009 066 degrees QTc Int : 433 ms Normal sinus rhythmNormal ECGWhen compared with ECG of 30-SEP-2018 17:52,No significant change was foundConfirmed by JOSE MARC ([id number]) on 10/01/2018 4:11:20 PM Referred By: Rohith Kc Confirmed by:JOSE MARC at 1611 PATIENT NAME: RACHEAL SABILLON .[id number] ble for patient cgqoRWVDYCCUYVDEAB7783-66-29D70:12:05 [facility] 2018-09-30 19:05:00 GHenklkuuyt925266985pBvZ5vOk6Npy96XMTuUi ylPVxoywiJiV+0SWb QHkERQEVc+Ej97ntq0jElccigb9216-74-29K08:05:00 [facility] TexasAdult General ConsultationREPORT#:[id number] REPORT STATUS: SignedDATE:09/30/18 TIME: 1905 PATIENT: RACHEAL SABILLON UNIT #: [id number]#: [id number] [address] AGE: 72 SEX: F ATTEND: Rohith Kc [facility] AUTHOR: Mariana Humphrey MD * ALL edits or amendments must be made on the electronic/computer document * History of Present IllnessRequesting Clinician: dr Salmon for consult:medical managementHPI:pt is 72 y/o female with h/o CAD and stent , HTN, HLD underwent Procedures performed:Right carotid endarterectomy with hemashield patch arterioplasty. pt is admitted for post op care. History - Adult longitudinalPast medical history:Reports: Coronary artery disease, Hypertension, Dyslipidemia, Thyroid disorder. Additional medical history:mitral regurgitationsplemnectomyhypothyroidismthrombocytopenia Smoking status for patients 13 years old or older: Former SmokerAdditional social history:lives with husbandAllergies:Coded Allergies:No Known Allergies (09/29/18) Review of SystemsAll systems rev neg: except as marked ObjectiveVS/I O:Last Documented: Result Date Time Pulse Ox 96 09/30 1801 Pulse 77 09/30 1801 Resp 20 09/30 1801 B/P 109/61 09/30 1800 B/P Mean 80 09/30 1800 O2 Delivery Nasal cannula 09/30 1630 O2 Flow Rate 3.674302 09/30 1630 FiO2 40 09/30 1512 Temp 97.6 09/30 1512 24 hour I O ending at 0700: 09/30 0700 09/29 1900 Intake Total Output Total Balance Patient 69.09 kg Weight Weight Stated/Reported Measurement Method Patient Weight Weight (lb): 156Weight (oz): 3.65Weight (kg): 70.864 General appearance: awakeHead/Eyes: EOMI, PERRLANeck: right neck dressing intactCardiovascular: regular rate rhythm, normal heart soundsRespiratory: aerating well, symmetric expansionAbdomen: soft, non-tenderExtremities: moves all, no edemaNeuro/HAZARDOUS MATERIALS TANKER DRIVER: alert, no motor deficitsSkin: dry, intactPsychiatry: normal affect ResultsFindings/Data:Laboratory Tests: 09/30 09/30 1530 1515 Blood Gas Puncture Site [...] Chemistry Sodium (137 - 145 MMOL/L) 138 Potassium (3.5 - 5.1 MMOL/L) 3.1 L Chloride (98 - 107 MMOL/L) 100 Carbon Dioxide (22 - 30 MMOL/L) 31 H BUN (7 - 17 MG/DL) 10 Creatinine (0.52 - 1.04 MG/DL) 0.60 Glomerular Filtr Rate > 60 Glucose (74 - 106 MG/DL) 119 H Calcium (8.4 - 10.2 MG/DL) 8.9 Magnesium (1.6 - 2.3 MG/DL) 1.3 L Hematology WBC (3.8 - 9.8 K/MM3) 10.8 H RBC (3.58 - 4.97 M/MM3) 3.64 Hgb (11.2 - 14.9 G/DL) 11.8 Hct (33.2 - 43.5 %) 35.3 MCV (80.7 - 99.1 fL) 97 MCH (27.0 - 34.1 pg) 32.4 MCHC (32.2 - 35.7 %) 33.4 RDW (12.1 - 15.2 %) 14.9 Plt Count (129 - 368 K/MM3) 281 MPV (7.4 - 10.4 fl) 8.9 Neut % (Auto) (43 - 75 %) 55.0 Lymph % (Auto) (14 - 44 %) 30.3 [place] % (Auto) (4 - 13 %) 10.8 Eos % (Auto) (0 - 6 %) 3.0 Baso % (Auto) (0 - 2 %) 0.3 Neut # (Auto) (2.0 - 7.6 K/mm3) 5.97 Lymph # (Auto) (1.0 - 3.8 K/mm3) 3.28 [place] # (Auto) (0.1 - 0.8 K/mm3) 1.17 H Eos # (Auto) (0.0 - 0.2 K/mm3) 0.32 H Baso # (Auto) (0.0 - 0.2 K/mm3) 0.03 Immature Gran % (0.0 - 2.0 %) 0.6 Nucleated RBC % (0 - 1.0 %) 0.0 Nucleated RBCs # (Man) (0.0 - 0.1 K/mm3) 0.00 Microbiology: Date/Time Procedure - Status Source Growth 09/30 1515 MRSA Screen - RECD NASAL Recent Impressions:RADIOLOGY - XR CHEST 1V 09/30 1516 Report Impression - Status: SIGNED Entered: 09/30/2018 1532 IMPRESSION:Mild congestive changes bilaterally. No pneumothorax. Impression By: Bernie - Ryann Zuniga MD Diagnosis, Assessment Plan Free Text DxA P NotesFree Text DxA P Notes:pt is 72 y/o female with h/o CAD and stent , HTN, HLD, hypothyroidism underwent Procedures performed:Right carotid endarterectomy with hemashield patch arterioplasty. pt is admitted for post op care. plan: contieu treatment per dr kc and monitor clinical recovery. Quality MedicationsCurrent medication review:I attest that the foregoing medication list in the medical record is true, accurate, and complete to the best of my knowledge. VTE ProphylaxisVTE prophylaxis initiated: yes Advanced Care Plan 65 or OlderDiscussed with: patient, surrogate decis. makerDiscussion included: code status (full code) BMI Screening > 25 or < 18.5Patient's BMI:Current BMI: 29.5 Tobacco Use/CounselingTobacco use/counseling: non tobacco user HTN Screening/Follow-upLast documented vitals:Last Documented: Result Date Time Pulse Ox 100 10/01 1442 FiO2 28 10/01 1442 O2 Delivery Nasal cannula 10/01 1442 Pulse 77 10/01 1441 Resp 15 10/01 1441 B/P 196/93 10/01 1434 B/P Mean 134 10/01 1434 Temp 98.1 10/01 1152 O2 Flow Rate 3.289166 10/01 0800 B/P assess/follow-up: pre-existing hx of HTN at 1500 RPT #:[id number] OF REPORTPERzppoueluiqd9848-89-52K68:05:00Z.JBZM81141570- 0488AVAvailable for patient jjapGHVYUKKVRVLDMH0652-45-70H82:01:02 [facility] 17:52:00 NPypdpsdtpa12350984F3tKmFflxZ7p892C7skan pxIhUZubWMjTzClyK Q6zkaLE5uOQ0htOrx+UkLXZ4fK9016-18-44C79:52:667021-4158 [place] [id number] PATIENT NAME: RACHEAL SABILLON ADMIT DATE: 09/30/18ACCOUNT NO: [id number] ROOM NO: Z.SI07 AGE: 72 REPORT TYPE: ELECTROCARDIOGRAM SEX: F ADMITTING PHYSICIAN:Rohith Kc MD ATTENDING PHYSICIAN:Rohith Kc MD Order:[id number] Reason : post op Test Date/Time Stamp:SatSep 30 2018 17:52:09Blood Pressure : / mmHGVent. Rate : 080 BPM Atrial Rate : 080 BPM P-R Int : 174 ms QRS Dur : 084 ms QT Int : 390 ms P-R-T Axes : 061 011 066 degrees QTc Int : 449 ms Normal sinus rhythmNormal ECGWhen compared with ECG of 29-SEP-2018 12:39,QT has lengthenedConfirmed by JOSE MARC ([id number]) on 09/30/2018 6:07:46 PM Referred By: Rohith Kc Confirmed by:JOSE MARC at 1807 PATIENT NAME: RACHEAL SABILLON .[id number] ble for patient pqwhUXDFDOIRGMICSE4973-69-00W70:08:06 [facility] 2018-09-30 15:15:00 PNoguhlytwf90182042ljlKngyQTjSQ2YCrsupLA tN61Hpk/p+gXad0KV YrEAY9IbNpHNzHBFCviUAuqQex0323-88-97A63:15:519649-1750 [place] [id number] PATIENT NAME: RACHEAL SABILLON ADMIT DATE: 09/30/18ACCOUNT NO: [id number] ROOM NO: Z.SI07 AGE: 72 REPORT TYPE: OPERATIVE REPORT SEX: F ADMITTING PHYSICIAN:Rohith Kc MD ATTENDING PHYSICIAN:Rohith Kc MD OPERATION DATE: 09/30/2018 PREOPERATIVE DIAGNOSIS: Right internal carotid stenosis. POSTOPERATIVE DIAGNOSIS: Right internal carotid stenosis. PROCEDURE: CVP insertion, right carotid endarterectomy, Hemashield patcharterioplasty. SURGEON: Rohith Kc MD CONCRETE PANEL INSTALLER: Brisa Moser PA-C ANESTHESIA: General. COMPLICATIONS: None. DISPOSITION: The patient to surgical ICU in stable condition. DESCRIPTION OF PROCEDURE: On 09/30/2018, the patient was brought to theoperating room, placed on the operating table in supine position, prepped anddraped in usual fashion. Following introduction of satisfactory generalanesthesia, placement of monitoring lines, Lackey catheter, hips, shoulders,elbows padded in usual fashion. Left subclavian CVP was placed using Seldingerpercutaneous guidewire technique. The patient was then prepped and draped inusual fashion. Neck extended, turned to left 45 degree angle. Incision madealong the anterior border of the sternocleidomastoid muscle on the right side. We dissected down to the right carotid sheath and vessels placed on the rightarterial branches. Heparin given. Clamps were placed, arteriotomy in thecommon carotid through a very tight greater than 90% on deep thick plaque in theinternal carotid artery and extended up onto the internal carotid artery beyondthe plaque. We then irrigated with heparin saline solution. A shunt was placedand endarterectomy performed, plaque feathered out nicely internal carotidartery, we irrigated with heparin saline solution and then Hemashield patcharterioplasty closure with running 5-0 Prolene suture. Prior to patch closurecompletion, shunt removed. All branches allowed to backbleed to flush anydebris and patch closure was completed. Clamps were released. Excellent pulseby palpation and Doppler within the incisions. Protamine given, hemostasisachieved. Wounds were irrigated with antibiotic saline solution and closed inlayers in usual fashion. Dressings applied. Hawk-Montez drain already hasbeen placed and then just before wound was closed, dressings applied, and thepatient was awakened intact neurologically and taken to surgical ICU in stable PATIENT NAME: RACHEAL SABILLON condition. Dictated By: Rohith Kc MD WT: OP:GERARDO/ADRIELKRO/NTSDD: 09/30/2018 15:15:28DT: 09/30/2018 16:14:31Conf#: [id number]/DID#: [id number] cc: Jose Marc MD Authenticated by Rohith Kc MD On 10/10/2018 11:40:08 PM at 2340 PATIENT NAME: RACHEAL SABILLON jtkqwp8618-39-64Y47:14:00Z.[id number] for patient pfciZASEYMTOXNTBDT7405-19-59N25:40:46 [facility] 2018-09-30 15:11:00 QCszcqanzuv22768498HzZ/KjRKUagLWfPK00u0X PbJYNxzWeFF24/BgE C9jMbRTCcUGxT40UaLtSTjWHuS5256-28-66Y49:11:00 [facility] ([facility])Brief Op NoteREPORT#:[id number] REPORT STATUS: SignedDATE:09/30/18 TIME: 1511 PATIENT: RACHEAL SABILLON UNIT #: [id number]#: [id number] [address]: [address] AGE: 72 SEX: F ATTEND: Rohith Kc MDADM AUTHOR: Brisa Moser * ALL edits or amendments must be made on the electronic/computer document * Op/Inv Proc Note - BriefPre-procedure diagnosis:Right internal carotid artery stenosisPost-procedure diagnosis: same as pre procedure dxProcedures performed:Right carotid endarterectomy with hemashield patch arterioplasty. Insertion of left subclavian central line using sonosite US guidancePrimary Surgeon:Rohith Parekhtant(s): RADHA Michelle-CAnesthesiologist:Dr. Reji Singleton, CRNAAnesthesia: general anesthesiaFindings:See detailed op reportComplications: noneEstimated blood loss in ml's: 150ccSpecimens removed/altered: plaque from right carotid arteryDrain(s): Lackey Catheter Placed, BLAKE drainImplant(s): hemashield patchDisposition: ICU (in a ), stable at 1514 RPT #:[id number] OF REPORTOPOperative bhwows2856-47-96R64:11:00Z.XLML99851163-1152IHIxcvcijjo for patient riakFMFERXQZTVVIZK1382-26-35N99:14:42 [facility] 2018-09-30 15:11:00 BFxhzaovbkl38550835D7waaYJKcAla5Q0cX09hV /sNZdptY6itnxcBFE p2ywNw3dRlnjbdo8J4fVLKhCWb3945-65-24H47:11:00 [facility] ([facility])Brief Op NoteREPORT#:[id number] REPORT STATUS: SignedDATE:09/30/18 TIME: 1511 PATIENT: RACHEAL SABILLON UNIT #: [id number]#: [id number] [address]KFVA: [address] AGE: 72 SEX: F ATTEND: Rohith Kc MDA AUTHOR: Brisa Moser * ALL edits or amendments must be made on the electronic/computer document * Op/Inv Proc Note - BriefPre-procedure diagnosis:Right internal carotid artery stenosisPost-procedure diagnosis: same as pre procedure dxProcedures performed:Right carotid endarterectomy with hemashield patch arterioplasty. Insertion of left subclavian central line using sonosite US guidancePrimary Surgeon:Rohith Parekhtant(s): RADHA Michelle-CAnesthesiologist:Dr. Reji Singleton, CRNAAnesthesia: general anesthesiaFindings:See detailed op reportComplications: noneEstimated blood loss in ml's: 150ccSpecimens removed/altered: plaque from right carotid arteryDrain(s): Lackey Catheter Placed, BLAKE drainImplant(s): hemashield patchDisposition: ICU (in a ), stable at 1514 at 1535 RPT #:[id number] OF REPORTOPOperative mriazn2875-82-12X10:11:00Z.EYDD71072538-9547EMPhjkdpwim for patient moyqWBTSIOAPHLSREB8449-09-63B76:35:18 [facility] 2018-09-29 12:39:00 BTzmhpylqgs82327472dZYcOwBZIeSWtdGFKCApD kJbeIS881RK9T5i0K qsHEFSJ0nKSg8HDjQn5Kg/EqcR8124-35-41L77:39:[id number] [place] [address] PATIENT NAME: RACHEAL SABILLON ADMIT DATE: ACCOUNT NO: [id number] ROOM NO: AGE: 72 REPORT TYPE: ELECTROCARDIOGRAM SEX: F ADMITTING PHYSICIAN:Rohith Kc MD ATTENDING PHYSICIAN:Rohith Kc MD Order:[id number] Reason : PRE-OP Test Date/Time Stamp:SatSep 29 2018 12:39:21Blood Pressure : / mmHGVent. Rate : 057 BPM Atrial Rate : 057 BPM P-R Int : 164 ms QRS Dur : 080 ms QT Int : 406 ms P-R-T Axes : 063 053 071 degrees QTc Int : 395 ms Sinus bradycardiaOtherwise normal ECGWhen compared with ECG of 20-SEP-2018 06:12,T wave amplitude has increased in Inferior leadsConfirmed by JOSE MARC ([id number]) on 09/29/2018 4:48:14 PM Referred By: Rohith Kc Confirmed by:JOSE MARC at 1648 PATIENT NAME: RACHEAL SABILLON .[id number] ble for patient tczkLEGOIZPINGZJFF0063-51-92F27:48:25 [facility] 2018-09-20 12:37:00 EOnbrymdssl22195128rGHH27bPG94Dk/NbLNGma TBtjymgryjJwkc/Qf zKhYh1NNvS3MINy+LQ/TqcgSOs1218-56-21J57:37:221738-3596 [place] [address] PATIENT NAME: RACHEAL SABILLON ADMIT DATE: 09/20/18ACCOUNT NO: [id number] ROOM NO: AGE: 72 REPORT TYPE: CONSULTATION REPORT SEX: F ADMITTING PHYSICIAN: ATTENDING PHYSICIAN:Jose Marc MD CONSULTATION DATE: 09/20/2018 CONSULTING PHYSICIAN: Rohith Kc MD CARDIAC SURGERY SERVICE DIAGNOSES: Bilateral carotid stenosis, coronary artery disease, hypertension,and hyperlipidemia. BRIEF HISTORY: This is a 72-year-old woman status post coronary artery stent inthe past. Cardiac cath today shows only some moderate coronary artery diseasewith normal LV function. Plan is to treat the patient medically. She hadcarotid duplex imaging in the past and recently, which showed high-grade rightinternal carotid artery stenosis 90%, left 70%. On carotid artery angiogramtoday she has a high-grade 90% stenosis of right internal carotid artery and 70%on the left side. The patient denies any previous history of stroke or TIA. REVIEW OF SYSTEMS: Otherwise are negative. She did not have an NC at the timeof the previous stent. She has hypertension and hyperlipidemia. No diabetes. Review of systems otherwise is negative. No history of hemophilia orcoagulopathy. SOCIAL HISTORY: She was a smoker in the past, but not currently. FAMILY HISTORY: Positive in family for hypertension, diabetes, andhyperlipidemia. The patient denies varicose vein, vein stripping or phlebitis,DVT. PHYSICAL EXAMINATION:GENERAL: Demonstrates well-nourished female, in no apparent distress.NECK: No carotid bruits. Carotid pulse present. Radial pulse present.CHEST: Clear.HEART: Regular rate and rhythm without murmurs.ABDOMEN: Soft, nontender, without mass.EXTREMITIES: Peripheral pulse present.BREASTS, GENITOURINARY, AND RECTAL: Not done.NEUROLOGIC: Physiological. ASSESSMENT: Right internal carotid artery stenosis. RECOMMENDATION: For the patient to have a right carotid endarterectomy. Thepatient will be discharged home today. We will schedule the patient as an PATIENT NAME: RACHEAL SABILLON outpatient. The procedure, the alternatives, possible risks and complicationsincluding the inherent and other risks are explained to the patient and family,they understand and accept, want to proceed. They had a chance to ask questionand want to proceed. Dictated By: Rohith Kc MD WT: CON:Z.MAIA/ISAÍAS/NTSDD: 09/20/2018 12:37:21DT: 09/20/2018 13:42:00Conf#: [id number]/DID#: [id number] Authenticated by Rohith Kc MD On 10/10/2018 11:31:10 PM at 2331 PATIENT NAME: RACHEAL SABILLON :42:00Z.[id number] 8-0312AVAvailable for patient doquPXHKDLMFJYAQMU9095-74-11S19:31:59 [facility] 2018-09-20 10:18:00 YRjajlifeen48045644JZounDw/tmPEN8BdcjjE8 GHWzJWzMGx0ET9FWW j/rzqpk7WDGqfZhr1hvGSjY2cb8554-52-21T22:18:627629-[address] [address] PATIENT NAME: RACHEAL SABILLON ADMIT DATE: 09/20/18ACCOUNT NO: [id number] ROOM NO: AGE: 72 REPORT TYPE: eCAROTID ULTRASOUND SEX: F ADMITTING PHYSICIAN: ATTENDING PHYSICIAN:Jose Marc MD *[facility] [place], [place] [address]Uvwsr Carotid Duplex Study Patient: Racheal Sabillon Date: 09/20/2018 BP: 141 / 72 Location: CHRISTIANEUUCindyN: [id number] : 1945 Age: 72 Height: 61 in / 154.9 cmAccession#: [id number] Gender: F Weight: 145 lb / 65.9 kgBMI/BSA: 27.5 kg/m 2 / 1.7 m 2 *Ordering Physician: * Jose Marc MD*Interpreting Physician: * Jose Marc MD*Fiber Optics Technician: * Ruthann Nogueira RVT Indications: CAD lower [place] or graft. Study data: Carotid duplex study. Bilateral evaluation with pppneaeyk3B imaging, color Doppler imaging, and spectral Doppler analysis.Location: Recovery room. Patient status: Outpatient. Patient roomnumber: CH2. Procedure: A vascular evaluation was performed. Imageswere obtained using a Speaktoit vascular ultrasound machine. Image quality wasadequate. Study status: Routine. Findings Carotid/vertebral arteries:Right common carotid: The vessel is normal; it has no evidence ofdisease.Right internal carotid: The vessel is tortuous. The proximal vessel hasmild to moderate plaque. Proximal vessel lesion: There is a PATIENT NAME: RACHEAL SABILLON 60-79%stenosis.Right external carotid: The vessel has minimal plaque.Right vertebral: The arterial flow direction is antegrade.Left vertebral: The arterial flow direction is antegrade.Left common carotid: The vessel is normal; it has no evidence ofdisease.Left internal carotid: The vessel is tortuous. The proximal vessel hasplaque. Proximal vessel lesion: There is a 60-79%stenosis.Left external carotid: The vessel has plaque. Arterial flow: Location PSV* EDV* PSV Stenosis Location PSV* EDV* PSV Stenosis ratio ratioR CCA, prox 52 12 ----- -------- L CCA, 52 12 ----- -------- proxR CCA, 60 17 ----- -------- L CCA, 46 14 ----- --------distal distalR ICA, prox 185 73 3.08 60-79% L ICA, 152 59 2.95 60-79% proxR ICA, 54 18 0.9 -------- L ICA, 43 12 0.82 --------distal distalR ECA 77 ---- ----- -------- L ECA 96 ---- ----- --------R vertebral 51 21 ----- -------- L 66 25 ----- -------- vertebra l *Velocities are expressed in cm/sec, Diameters are expressed in cm Conclusions 1. Study suggests 60-79% stenosis involving the right internal carotid artery and left internal carotid artery.2. Antegrade flow noted in the right vertebral artery and left vertebral artery. Prepared and electronically signed by Jose Marc MD09/20/2018 10:18 at 1019 PATIENT NAME: RACHEAL SABILLON wotwnxu1146-03-95H36:18:00Z.OWT42319358-7267MDQgjszxkri for patient tdimKJEFAJKFEXLOYX0250-14-71U91:19:20 [facility] 2018-09-20 07:38:00 VSbsjpliird16843191BM9iYTHlwV+CHTljG+endoscopy support specialist Vgl5SCvnhVKi480bK eAaWSNRUC2RowxnmRUvv5AMVH72701-39-59G64:38:787682-7942 [place] [address] PATIENT NAME: RACHEAL SABILLON ADMIT DATE: 09/20/18ACCOUNT NO: [id number] ROOM NO: AGE: 72 REPORT TYPE: CARDIAC CATHETERIZATION REPORT SEX: F ADMITTING PHYSICIAN: ATTENDING PHYSICIAN:Jose Marc MD PROCEDURE DATE: 09/20/2018 CARDIOVASCULAR PROCEDURE LAUNDRY HOUSEKEEPER: Jose Marc MD INDICATION FOR THE PROCEDURE: Dyspnea, coronary artery disease, previous stent,severe carotid disease, and uncontrolled hypertension. TITLE OF THE PROCEDURE:1. Left heart catheterization.2. Selective bilateral carotid angiograms.3. Selective bilateral renal angiograms. ESTIMATED BLOOD LOSS: Minimal. COMPLICATIONS: None. CONTRAST: 140 mL. ANESTHESIA: Conscious sedation with Versed and fentanyl that was actually notrequired and local anesthesia with lidocaine. FINAL DIAGNOSES: Single-vessel coronary artery disease, patent circumflexstent, severe bilateral carotid disease and no renal artery stenosis. PROCEDURE IN DETAIL: After informed consent, the patient was brought to thecardiac catheterization lab in a stable fasting nonsedated state. 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 She did have Valium and Benadryl inthe holding area. After local anesthesia, a 6-Guyanese sheath was placed in theright common femoral artery using standard techniques and fluoroscopy. Afterheparinization, left coronary angiogram showed calcified coronary system. Shehas a patent circumflex stent in the mid vessel. She has 30% plaquing the firstobtuse marginal and 60% rvm-hf-wpaqix disease in the circumflex: The circumflexand the right coronary artery appeared to be a codominant system. The rightcoronary artery is small with 20% plaquing. The LAD had scattered plaquing of20%. Left ventricular angiogram showed an ejection fraction of 75%. Leftventricular end-diastolic pressure of 20 and no wall motion abnormalities oraortic valve gradient. The right carotid was about 90% calcified. The leftcarotid was eccentric at 70%. Both were at the internal. Given heruncontrolled hypertension with multiple medications, I did selective bilateralrenal angiograms that showed no renal artery stenosis. The right groin was PATIENT NAME: RACHEAL SABILLON sealed using Angio-Seal. There were no complications. The patient toleratedthe procedure well. The patient will be referred for carotid surgery and shewill be continued on medical therapy for her coronary artery disease. Dictated By: Jose Marc MD WT: CATH:WILFREDO/MANDIE/ANATOLYDD: 09/20/2018 07:38:16DT: 09/20/2018 08:06:11Conf#: [id number]/DID#: [id number] Authenticated by Jose Marc MD On 09/20/2018 08:15:26 AM at 0815 PATIENT NAME: RACHEAL SABILLON Cpsb8400-13-44D59:06:00Z.[id number] for patient gcbqTPSBRKYWFWIRHO4565-26-54G64:15:57 [facility] 2018-09-20 06:12:00 LUwrjhtbmxx12195797H8RzTn4HPUoli80zV5FOh 2/i4SyoAEsBKdYEWH DEcFD9x6W9Xto6h1lHiQ5uBVud7877-82-45E65:12:519438-7393 [place] [id number] PATIENT NAME: RACHEAL SABILLON ADMIT DATE: 09/20/18ACCOUNT NO: [id number] ROOM NO: AGE: 72 REPORT TYPE: ELECTROCARDIOGRAM SEX: F ADMITTING PHYSICIAN: ATTENDING PHYSICIAN:Jose Marc MD Order:[id number] Reason : PREOP Test Date/Time Stamp:SatSep 20 2018 06:12:04Blood Pressure : / mmHGVent. Rate : 058 BPM Atrial Rate : 058 BPM P-R Int : 174 ms QRS Dur : 076 ms QT Int : 400 ms P-R-T Axes : 046 044 039 degrees QTc Int : 392 ms Sinus bradycardiaOtherwise normal ECGNo previous ECGs availableConfirmed by JOSE MARC ([id number]) on 09/20/2018 9:21:38 AM Referred By: Jose Marc Confirmed by:JOSE MARC at 0921 PATIENT NAME: RACHEAL SABILLON .[id number] ble for patient ngipBQAAJEZCCHYSCT7447-60-01N29:22:04 [facility] 2018-09-19 18:46:00 WZgyyfuvhwq74811382MBXc6cGVhJ4lkvAXZxMAd cVjYXgL3zGFpk/X8O jf6cMv/vgxa5KvD+iV1Q6m/qKy8506-49-37U76:46:470507-[address] [address] PATIENT NAME: RACHEAL SABILLON ADMIT DATE: 09/20/18ACCOUNT NO: [id number] ROOM NO: AGE: 72 REPORT TYPE: HISTORY AND PHYSICAL SEX: F ADMITTING PHYSICIAN: ATTENDING PHYSICIAN:Jose Marc MD PATIENT NAME: RACHEAL SABILLON ADMIT DATE:09/20/2018ADMISSION DATE: 09/20/2018 REASON FOR ADMISSION: Cardiac and carotid angiograms to assess for possiblerevascularization. HISTORY OF PRESENT ILLNESS: Racheal is a 72-year-old lady with known coronaryartery disease and multiple cardiovascular risk factors, who was recentlyevaluated for symptoms of dyspnea. Noninvasive cardiovascular workup showedworsening right carotid disease around 80% to 99%. It was 51% to 69% in thepast. The left one remained at 51% to 69%. Her echocardiogram remained stablewith mild mitral regurgitation and normal ejection fraction. Her last nuclearstress test in 2016 was negative for ischemia. She has had known coronaryartery disease with single-vessel coronary artery disease and had a circumflexstent, Taxus 3 x 12 back in 2003. Given her progression of carotid disease andknown coronary artery disease. She is here for cardiac and carotid angiogramsto assess for possible revascularization and right carotid surgery. The patientis denying any chest pains, TIAs, strokes, or congestive heart failure symptoms. PAST MEDICAL HISTORY: Remarkable for coronary artery disease as per above,hypertension, dilated ascending aorta, hyperlipidemia, mitral regurgitation,bradycardia, dizziness, carotid disease, hypothyroidism, allergic rhinitis,history of thrombocytopenia, status post splenectomy in 1984. PAST SURGICAL HISTORY: As mentioned above. ALLERGIES: NO KNOWN DRUG ALLERGIES. MEDICATIONS: Potassium daily, aspirin 81 mg daily, Plavix 75 mg daily,Levothroid 100 mcg daily, isosorbide 30 mg daily, Plavix 75 mg daily,atorvastatin 40 mg daily, losartan/hydrochlorothiazide 100/12.5 mg daily,metoprolol 100 mg daily. SOCIAL HISTORY: There is no history of smoking, alcohol, or street drug use.The patient quit smoking years ago. FAMILY HISTORY: Positive for atherosclerotic cardiovascular disease. REVIEW OF SYSTEMS: Remarkable for headaches, dry mouth. No acute GI or GUsymptoms. No TIAs or strokes. The rest of the review of system is enclosed inthe chart. PATIENT NAME: RACHEAL SABILLON PHYSICAL EXAMINATION:GENERAL: Reveals a pleasant elderly lady in no acute distress.VITAL SIGNS: Blood pressure 122/85, pulse 68 and regular, respiratory rate 16unlabored, temperature afebrile.HEENT: Head, atraumatic and normocephalic. Eyes and ENT examination withinnormal for age.NECK: Supple. No jugular venous distention, bruits, or lymphadenopathy.Normal upstroke.LUNGS: Clear and resonant.HEART: Regular rate and rhythm. No murmurs or gallops.ABDOMEN: Soft. No tenderness, no organomegaly, no masses or bruits.EXTREMITIES: 2+ distal pulses. No edema, cyanosis, or clubbing.NEUROLOGIC: Alert and oriented x3. The examination appears to be nonfocal. LABORATORY DATA: Pending. Noninvasive cardiovascular workup enclosed. IMPRESSION: This is a 72-year-old lady with known coronary artery disease andprevious stenting, who has progression of her carotid disease. She has dyspnea,multiple cardiovascular risk factors. She has most likely also progressed withher coronary artery disease. She is here for cardiac and carotid angiograms toassess for possible revascularization of her coronaries and for right carotidsurgery. The recommendation is to proceed with the above. The risks and benefits of theplanned procedures were discussed in detail with the patient and she is willingto proceed. Rest as per orders. Dictated By: Jose Marc MD WT: HP:GERARDO/MANDIE/ANATOLYDD: 09/19/2018 18:46:47DT: 09/19/2018 19:09:56Conf#: [id number]/DID#: [id number] and Edited by Jose Marc MD On 09/20/18 6:13:56 AM at 0615 PATIENT NAME: RACHEAL SABILLON and physical [id number] for patient [id number] H CAWU
[2023-06-10 12:01] LABS: Absolute Lymphocytes (CBC) 0.6 K/uL (0.7-4.9); Lymphocytes % 15.4 % (15.3-44.8); MCV 103.3 fL (80-100); MPV 7.1 fL (7.6-11.3); Platelets 209 thou/uL (152-406); RBC Red Blood Cell Count 3.58 M/uL (3.86-4.86)
[2023-06-10 12:14] LABS: SARS-CoV-2 Antigen Rapid Res Negative (Negative)
[2023-06-10 12:21] LABS: Albumin 3.1 g/dL (3.4-5.0); Bilirubin Direct 0.2 mg/dL (0-0.2); Bilirubin Indirect, Calculated 0.1 mg/dL (0.2-0.8); Bilirubin Total 0.3 mg/dL (0.2-1.0); Magnesium 1.7 mg/dL (1.6-2.4); Potassium 4.1 mEq/L (3.5-5.1); Protein, Total 7.4 g/dL (6.4-8.2)
[2023-06-10] MEDS ORDERED: NA CHLORIDE 0.9% 250 ML ONE (12:42)
[2023-06-10] MEDS ORDERED: NA CHLORIDE 0.9% 500 ML ONE (12:42)
[2023-06-10] MEDS ORDERED: MAGNESIUM SULFATE 1 gm IVPB 1 GM/100 ML BAG IV ONE (12:42)
[2023-06-10] MEDS ORDERED: AZITHROMYCIN 500 MG INJ IVPB ONE (12:42)
[2023-06-10] MEDS ORDERED: CEFTRIAXONE 1000 MG/VIAL ONE (12:42)
--- NOTE | 2023-06-10 12:43 | RAD REPORT ---
EXAM DESCRIPTION: RAD - Chest Single View - 06/10/2023 12:28 pm CLINICAL HISTORY: COUGH COMPARISON: Chest Single View dated 01/20/2022; Chest Pa And Lat (2 Views) dated 12/05/2021; Chest Sin gle View dated 03/10/2021; Chest Single View dated 10/02/2020 FINDINGS: Lines: None. Lungs: No evidence of edema or pneumonia. Pleural: No significant pleural effusions or pneumothorax. Cardiac: The heart size is within normal limits. Mediastinum: Within normal limits. Bones: No acute fractures. Other: None IMPRESSION: No acute cardiopulmonary disease.
--- NOTE | 2023-06-10 13:25 | EDPHYS ---
Physician Documentation [facility] Name: Racheal Dia Age: 77 yrs Sex: Female : 1945 Arrival Date: 06/10/2023 Time: 11:09 Bed 20 Private MD: ED Physician Jaret Swift HPI: 06/10 11:45 This 77 yrs old Black Female presents to ER via Wheelchair with complaints of Shortness jaret Of Breath, Cold Symptoms, Headache. 11:45 The patient has shortness of breath at rest, with light activity. Onset: The jaret symptoms/episode began/occurred 3 day(s) ago. Duration: The symptoms are continuous, and are steadily getting worse. The patient's shortness of breath has no apparent modifying factors. Associated signs and symptoms: Pertinent positives: non-productive cough, fever. Severity of symptoms: At their worst the symptoms were moderate in the emergency department the symptoms are unchanged. The patient has experienced similar episodes in the past, a few times. Historical: - Allergies: 11:43 No Known Allergies; nj1 - PMHx: 11:43 CHF; Hypercholesterolemia; Hypertension; Hypertensive disorder; nj1 - PSHx: 11:43 Heart Stents; Splenectomy; nj1 - Immunization history:: Client reports receiving the 2nd dose of the Covid vaccine. - Social history:: Smoking status: Patient/guardian denies using tobacco, the patient reports quitting approximately 1 years ago. ROS: 11:48 Constitutional: Negative for fever, chills, and weight loss, Eyes: Negative for injury, jaret pain, redness, and discharge, ENT: Negative for injury, pain, and discharge, Neck: Negative for injury, pain, and swelling, Cardiovascular: Negative for chest pain, palpitations, and edema, Abdomen/GI: Negative for abdominal pain, nausea, vomiting, diarrhea, and constipation, Back: Negative for injury and pain, : Negative for injury, bleeding, discharge, and swelling, MS/Extremity: Negative for injury and deformity, Skin: Negative for injury, rash, and discoloration, Neuro: Negative for headache, weakness, numbness, tingling, and seizure, Psych: Negative for depression, anxiety, suicide ideation, homicidal ideation, and hallucinations, Allergy/Immunology: Negative for hives, rash, and allergies, Endocrine: Negative for neck swelling, polydipsia, polyuria, polyphagia, and marked weight changes, 11:48 Respiratory: Positive for cough, "sounds productive", shortness of breath, at rest. Exam: 11:48 Constitutional: This is a well developed, well nourished patient who is awake, alert, jaret and in no acute distress. Head/Face: Normocephalic, atraumatic. Eyes: Pupils equal round and reactive to light, extra-ocular motions intact. Lids and lashes normal. Conjunctiva and sclera are non-icteric and not injected. Cornea within normal limits. Periorbital areas with no swelling, redness, or edema. ENT: Nares patent. No nasal discharge, no septal abnormalities noted. Tympanic membranes are normal and external auditory canals are clear. Oropharynx with no redness, swelling, or masses, exudates, or evidence of obstruction, uvula midline. Mucous membranes moist. Neck: Trachea midline, no thyromegaly or masses palpated, and no cervical lymphadenopathy. Supple, full range of motion without nuchal rigidity, or vertebral point tenderness. No Meningismus. Chest/axilla: Normal chest wall appearance and motion. Nontender with no deformity. No lesions are appreciated. Cardiovascular: Regular rate and rhythm with a normal S1 and S2. No gallops, murmurs, or rubs. Normal PMI, no JVD. No pulse deficits. Abdomen/GI: Soft, non-tender, with normal bowel sounds. No distension or tympany. No guarding or rebound. No evidence of tenderness throughout. Back: No spinal tenderness. No costovertebral tenderness. Full range of motion. Female : Normal external genitalia. Skin: Warm, dry with normal turgor. Normal color with no rashes, no lesions, and no evidence of cellulitis. MS/ Extremity: Pulses equal, no cyanosis. Neurovascular intact. Full, normal range of motion. Neuro: Awake and alert, GCS 15, oriented to person, place, time, and situation. Cranial nerves II-XII grossly intact. Motor strength 5/5 in all extremities. Sensory grossly intact. Cerebellar exam normal. Normal gait. Psych: Awake, alert, with orientation to person, place and time. Behavior, mood, and affect are within normal limits. 11:48 Respiratory: the patient does not display signs of respiratory distress, Respirations: normal, no acute changes, is not noted, Breath sounds: bronchial sounds, that are moderate, are scattered, decreased breath sounds, that are moderate, are located in both bases, rhonchi, that are mild, are scattered, stridor, is not appreciated, + upper airway congestion. Respiratory rate: 20 13:45 ECG was reviewed by the Attending Physician. [facility] Vital Signs: 11:26 BP 117 / 77; Pulse 80; Resp 18; Temp 99.3(O); Pulse Ox 91% on R/A; Weight 56.7 kg (M); nj1 Height 5 ft. 1 in. ; 12:00 BP 138 / 85; Pulse 72; Resp 19; Pulse Ox 98% on 3 lpm NC; me1 13:00 BP 124 / 79; Pulse 86; Resp 19; Pulse Ox 97% on 3 lpm NC; me1 13:30 BP 128 / 98; Pulse 77; Resp 19; Pulse Ox 98% on 4 lpm NC; me1 14:30 BP 123 / 86; Pulse 81; Resp 23; Pulse Ox 99% on 4 lpm NC; me1 15:30 BP 105 / 74; Pulse 85; Resp 22; Pulse Ox 100% on 4 lpm NC; me1 16:00 BP 112 / 69; Pulse 86; Resp 16; Pulse Ox 98% on 4 lpm NC; me1 11:26 Body Mass Index 23.62 (56.70 kg, 154.94 cm) [facility] MDM: 11:16 Patient medically screened. jaret 11:50 Differential diagnosis: Anemia Anxiety Reaction asthma, Bronchitis CHF exacerbation, jaret Chronic Obstructive Pulmonary Disease Myocardial Infarction pneumonia, pulmonary edema, Pulmonary Embolism reactive airway disease, Sepsis Unstable Angina. Antibiotic administration: Rocephin and Zithromax given. Differential Diagnosis: Obstructed Airway Bronchitis Influenza Upper Respiratory Infection Sinusitis Pharyngitis Otitis Media Asthma Exacerbation Viral Syndrome Pneumonia. Immunization status: Pneumococcal vaccine: within last 5 years. Influenza vaccine: within last 5 years. Data reviewed: vital signs, nurses notes, lab test result(s), EKG, radiologic studies, plain films. Consideration of Admission/Observation Patient was admitted/placed on observation. Escalation of care including admission/observation considered. I considered the following discharge prescriptions or medication management in the emergency department Medications were administered in the Emergency Department. See MAR. Independent interpretation of the following test(s) in the Emergency Department EKG: See my EKG interpretation above. 06/10 11:18 Order name: Basic Metabolic Panel; Complete Time: 12:24 [facility] 06/10 11:18 Order name: CBC with Diff; Complete Time: 12:24 [facility] 06/10 11:18 Order name: LFT's; Complete Time: 12:24 [facility] 06/10 11:18 Order name: Magnesium; Complete Time: 12:24 [facility] 06/10 11:18 Order name: NT PRO-BNP; Complete Time: 12:24 [facility] 06/10 11:18 Order name: Troponin HS; Complete Time: 12:24 [facility] 06/10 11:18 Order name: Flu; Complete Time: 12:24 [facility] 06/10 11:18 Order name: SARS RAPID; Complete Time: 12:24 [facility] 06/10 11:18 Order name: Urinalysis w/ reflexes; Complete Time: 14:44 [facility] 06/10 11:32 Order name: Blood Culture Adult (2) 06/10 11:32 Order name: Lactate w/ 2H reflex if indic.; Complete Time: 12:24 [facility] 06/10 13:22 Order name: ABG [facility] 06/10 14:20 Order name: CBC with Automated Diff EDMS 06/10 14:20 Order name: CBC with Automated Diff EDMS 06/10 14:20 Order name: CBC with Automated Diff EDMS 06/10 14:20 Order name: CBC with Automated Diff EDMS 06/10 14:20 Order name: Comprehensive Metabolic Panel [facility] 06/10 14:20 Order name: Comprehensive Metabolic Panel [facility] 06/10 14:20 Order name: Comprehensive Metabolic Panel [facility] 06/10 14:20 Order name: Comprehensive Metabolic Panel [facility] 06/10 14:20 Order name: Lipid Profile [facility] 06/10 14:20 Order name: Lipid Profile [facility] 06/10 14:20 Order name: Magnesium EDMS 06/10 14:20 Order name: Magnesium EDMS 06/10 14:20 Order name: Magnesium EDMS 06/10 11:18 Order name: XRAY Chest (1 view); Complete Time: 12:55 [facility] 06/10 12:25 Order name: CT Chest For PE Angio; Complete Time: 14:01 [facility] 06/10 15:10 Order name: BIPAP [facility] 06/10 11:18 Order name: EKG; Complete Time: 11:19 [facility] 06/10 11:18 Order name: Cardiac monitoring; Complete Time: 12:17 [facility] 06/10 11:18 Order name: EKG - Nurse/Tech; Complete Time: 12:17 [facility] 06/10 11:18 Order name: IV Saline Lock; Complete Time: 11:57 [facility] 06/10 11:18 Order name: Labs collected and sent; Complete Time: 12: [facility] 06/10 11:18 Order name: O2 Per Protocol; Complete Time: 11:58 [facility] 06/10 11:18 Order name: O2 Sat Monitoring; Complete Time: 11:58 [facility] EC:45 Rate is 71 beats/min. Rhythm is regular. QRS Jeremiah is Normal. ME interval is normal. QRS jaret interval is normal. QT interval is normal. No Q waves. T waves are Normal. Clinical impression: NSR w/ Non-specific ST/T Changes and No evidence of ischemia. Interpreted by me. Reviewed by me. Administered Medications: 12:51 Drug: NS 0.9% IV 500 ml IV at bolus once Route: IV; Rate: bolus; Site: right ut1 antecubital; 14:19 Follow up: IV Status: Completed infusion; IV Intake: 500ml me1 12:51 Drug: Rocephin IV 1 grams IV at per protocol once; Given slow IV push per pharmacy me1 instructions Route: IV; Rate: per protocol; Site: right antecubital; 12:53 Follow up: Response: No adverse reaction; IV Status: Completed infusion me1 13:32 Follow up: Response: No adverse reaction me1 12:51 Drug: Magnesium Sulfate IVPB 1 grams IVPB once over 1 hrs Route: IVPB; Infused Over: 1 me1 hrs; Site: right antecubital; 14:19 Follow up: Response: No adverse reaction; IV Status: Completed infusion me1 12:52 Drug: Zithromax IVPB 500 mg IVPB once over 1 hrs; mix in 250 mL NS Route: IVPB; Infused me1 Over: 1 hrs; Site: right antecubital; 14:22 Follow up: Response: No adverse reaction; IV Status: Completed infusion me1 13:43 Drug: MethylPrednisoLONE IVP 125 mg IVP once Route: IVP; Site: right antecubital; me1 13:44 Follow up: Response: No adverse reaction me1 13:43 Drug: Levalbuterol Inhalation 3.75 mg Inhalation once Route: Inhalation; me1 14:19 Follow up: Response: No adverse reaction; Wheezing diminished me1 13:43 Drug: Ipratropium Inhalation Aerosol 0.5 mg Inhalation once Route: Inhalation; me1 14:19 Follow up: Response: No adverse reaction; Wheezing diminished me1 13:43 Drug: Acetaminophen PO 650 mg PO once Route: PO; me1 13:45 Follow up: Response: No adverse reaction me1 15:24 Drug: Levalbuterol Inhalation 1.25 mg Inhalation once Route: Inhalation; me1 Disposition Summary: 06/10/23 13:25 Hospitalization Ordered Notes: Hospitalization Status: Inpatient Admission jaret Provider: Goyo Magdaleno cha Location: Telemetry/MedSurg (Inpatient) jaret Condition: Fair jaret Problem: new jaret Symptoms: have improved jaret Bed/Room Type: Standard [facility] Room Assignment: 207(06/10/23 15:18) bd Diagnosis - Dyspnea jaret - Hypoxemia jaret - Acute upper respiratory infection, unspecified jaret - Acute and chronic respiratory failure with hypercapnia jaret Forms: - Medication Reconciliation Form jaret - SBAR form jaret - Leadership Thank You Letter jaret Signatures: Dispatcher [employer] Tameka Renteria Corey, MD MD cha Waters, Shelly, TAILOR FITTER-C TAILOR FITTER-Csnw Marissa Medina RN RN nj1 Thea Castro RN RN me1 Corrections: (The following items were deleted from the chart) 15:18 13:25 jaret bd
--- NOTE | 2023-06-10 13:25 | ER ---
Nurse's Notes [facility] Name: Racheal Dia Age: 77 yrs Sex: Female : 1945 Arrival Date: 06/10/2023 Time: 11:09 Bed 20 Private MD: Diagnosis: Dyspnea;Hypoxemia;Acute upper respiratory infection, unspecified;Acute and chronic respiratory failure with hypercapnia Presentation: 06/10 11:26 Chief complaint: Patient states: Headache, cough and ear pain (bilateral) for about a me1 week, getting worse. 11:26 Coronavirus screen: Vaccine status: Patient reports receiving the 2nd dose of the covid nj1 vaccine. Ebola Screen: Patient denies travel to an Ebola-affected area in the 21 days before illness onset. Initial Sepsis Screen: Does the patient meet any 2 criteria? No. Patient's initial sepsis screen is negative. Does the patient have a suspected source of infection? No. Patient's initial sepsis screen is negative. Risk Assessment: Do you want to hurt yourself or someone else? Patient reports no desire to harm self or others. Onset of symptoms was May 2023. 11:26 Method Of Arrival: Wheelchair nj 11:26 Acuity: AISHA 3 nj1 Triage Assessment: 16:24 Respiratory: the patient has moderate shortness of breath. me1 Historical: - Allergies: 11:43 No Known Allergies; nj1 - PMHx: 11:43 CHF; Hypercholesterolemia; Hypertension; Hypertensive disorder; nj1 - PSHx: 11:43 Heart Stents; Splenectomy; nj1 - Immunization history:: Client reports receiving the 2nd dose of the Covid vaccine. - Social history:: Smoking status: Patient/guardian denies using tobacco, the patient reports quitting approximately 1 years ago. Screenin:47 [facility] ED Fall Risk Assessment (Adult) History of falling in the last 3 months, me1 including since admission No falls in past 3 months (0 pts) Confusion or Disorientation No (0 pts) Intoxicated or Sedated No (0 pts) Impaired Gait No (0 pts) Mobility Assist Device Used No (0 pt) Altered Elimination No (0 pt) Score/Fall Risk Level 0 - 2 = Low Risk Maintained a safe environment, Provided non-skid footwear, Hourly rounding (assess needs \T\ fall precautionary measures) done. Abuse screen: Denies threats or abuse. Nutritional screening: No deficits noted. Tuberculosis screening: No symptoms or risk factors identified. Assessment: 13:47 General: Appears uncomfortable, ill, well groomed, well developed, well nourished, me1 Behavior is calm, cooperative, appropriate for age, Reports Headache, cough and ear pain (bilateral) for about a week, getting worse. Pain: Complains of pain in right ear and left ear Pain does not radiate. Pain currently is 2 out of 10 on a pain scale. Quality of pain is described as aching, Pain began 2-3 days ago. Is continuous. Pain: Complains of pain in head Neuro: Level of Consciousness is awake, alert, obeys commands, Oriented to person, place, time, situation, Appropriate for age. Cardiovascular: Capillary refill < 3 seconds Patient's skin is warm and dry. Cardiovascular: Rhythm is sinus rhythm. Respiratory: Airway is patent Trachea midline Respiratory effort is even, unlabored, Respiratory pattern is regular, symmetrical. Respiratory: Breath sounds are diminished bilaterally. EENT: Reports pain in right ear and left ear. Vital Signs: 11:26 BP 117 / 77; Pulse 80; Resp 18; Temp 99.3(O); Pulse Ox 91% on R/A; Weight 56.7 kg (M); nj1 Height 5 ft. 1 in. ; 12:00 BP 138 / 85; Pulse 72; Resp 19; Pulse Ox 98% on 3 lpm NC; me1 13:00 BP 124 / 79; Pulse 86; Resp 19; Pulse Ox 97% on 3 lpm NC; me1 13:30 BP 128 / 98; Pulse 77; Resp 19; Pulse Ox 98% on 4 lpm NC; me1 14:30 BP 123 / 86; Pulse 81; Resp 23; Pulse Ox 99% on 4 lpm NC; me1 15:30 BP 105 / 74; Pulse 85; Resp 22; Pulse Ox 100% on 4 lpm NC; me1 16:00 BP 112 / 69; Pulse 86; Resp 16; Pulse Ox 98% on 4 lpm NC; me1 11:26 Body Mass Index 23.62 (56.70 kg, 154.94 cm) [facility] ED Course: 11:16 Patient arrived in ED. mg5 11:16 Jaret Swift MD is Attending Physician. jaret 11:30 Oxygen administration via nasal cannula \T\ 2L/min Response to oxygen therapy: symptoms nj1 improved. 11:34 Thea Castro, RN is Primary Nurse. me1 11:43 Triage completed. nj1 11:43 Arm band placed on. nj1 11:57 Inserted saline lock: 22 gauge in right antecubital area, using aseptic technique. me1 11:58 Basic Metabolic Panel Sent. me1 11:58 CBC with Diff Sent. me1 11:58 LFT's Sent. me1 11:58 Magnesium Sent. me1 11:58 NT PRO-BNP Sent. me1 11:58 Troponin HS Sent. me1 11:58 SARS RAPID Sent. me1 11:58 Flu Sent. me1 11:58 Lactate w/ 2H reflex if indic. Sent. me1 12:17 EKG done, by ED staff, reviewed by Jaret Swift MD. me1 12:31 XRAY Chest (1 view) In Process Unspecified. EDMS 13:07 CT Chest For PE Angio In Process Unspecified. EDMS 13:24 Goyo Magdaleno MD is Hospitalizing Provider. [facility] 13:47 Patient has correct armband on for positive identification. Bed in low position. Call nv1 light in reach. Side rails up X 1. Provided Education on: POC. Verbalized understanding. . 13:47 No provider procedures requiring assistance completed. me1 16:23 Patient admitted, IV remains in place. me1 Administered Medications: 12:51 Drug: NS 0.9% IV 500 ml IV at bolus once Route: IV; Rate: bolus; Site: right nv1 antecubital; 14:19 Follow up: IV Status: Completed infusion; IV Intake: 500ml nv1 12:51 Drug: Rocephin IV 1 grams IV at per protocol once; Given slow IV push per pharmacy me1 instructions Route: IV; Rate: per protocol; Site: right antecubital; 12:53 Follow up: Response: No adverse reaction; IV Status: Completed infusion me1 13:32 Follow up: Response: No adverse reaction me1 12:51 Drug: Magnesium Sulfate IVPB 1 grams IVPB once over 1 hrs Route: IVPB; Infused Over: 1 me1 hrs; Site: right antecubital; 14:19 Follow up: Response: No adverse reaction; IV Status: Completed infusion me1 12:52 Drug: Zithromax IVPB 500 mg IVPB once over 1 hrs; mix in 250 mL NS Route: IVPB; Infused me1 Over: 1 hrs; Site: right antecubital; 14:22 Follow up: Response: No adverse reaction; IV Status: Completed infusion me1 13:43 Drug: MethylPrednisoLONE IVP 125 mg IVP once Route: IVP; Site: right antecubital; me1 13:44 Follow up: Response: No adverse reaction me1 13:43 Drug: Levalbuterol Inhalation 3.75 mg Inhalation once Route: Inhalation; me1 14:19 Follow up: Response: No adverse reaction; Wheezing diminished me1 13:43 Drug: Ipratropium Inhalation Aerosol 0.5 mg Inhalation once Route: Inhalation; me1 14:19 Follow up: Response: No adverse reaction; Wheezing diminished me1 13:43 Drug: Acetaminophen PO 650 mg PO once Route: PO; me1 13:45 Follow up: Response: No adverse reaction me1 15:24 Drug: Levalbuterol Inhalation 1.25 mg Inhalation once Route: Inhalation; me1 Medication: 13:47 VIS not applicable for this client. me1 Intake: 14:19 IV: 500ml; Total: 500ml. me1 Outcome: 13:25 Decision to Hospitalize by Provider. jaret 16:23 Admitted to Med/surg accompanied by tech, via wheelchair, room 207, with oxygen, with me1 chart, Report called to Fax confirmed by Nery. 16:23 Condition: stable 16:23 Instructed on the need for admit, 16:24 Patient left the ED. me1 Signatures: Dispatcher [employer] Jaret Choe MD MD cha Jaco, Norma RN RN nj1 Thea Castro RN RN me1 Jennifer Carney mg5 Corrections: (The following items were deleted from the chart) 13:46 11:26 Chief complaint: Patient states: Headache, cough and ear pain (bilateral) for me1 about a week, getting worse. nj1
--- NOTE | 2023-06-10 13:32 | RAD REPORT ---
EXAM DESCRIPTION: CT - Chest For Pe Angio - 06/10/2023 1:06 pm CLINICAL HISTORY: sob COMPARISON: 2021 TECHNIQUE: Dynamically enhanced axial 3 mm thick images of the chest were obtained during administra tion of 100 mL Isovue 370 IV contrast. Coronal and oblique reconstruction images were generated and r eviewed. Exam utilizes a protocol for optimal evaluation of pulmonary arterial tree. Maximum intensity projections 3D imaging was utilized All CT scans are performed using dose optimization technique as appropriate and may include automated exposure control or mA/KV adjustment according to patient size. FINDINGS: A pulmonary embolus is not seen. Ascending thoracic aorta 4.3 centimeters A pleural effusion is not seen. A pericardial effusion is not seen. A lung consolidation is not present. A 13 millimeter ground-glass nodule right upper lobe equivocally mildly enlarged from prior exam IMPRESSION: Negative for a pulmonary embolism. 13 millimeter ground-glass nodule right upper lobe equivocally mildly enlarged from the prior exam. P ebony Fleischner guidelines followup CT chest in 6 months recommended to reassess stability
[2023-06-10] MEDS ORDERED: LEVALBUTEROL 1.25 MG/3 ML NEB ONE ×2 (13:36→15:22)
[2023-06-10] MEDS ORDERED: IPRATROPIUM BROM 0.5MG/2.5ML ONE (13:36)
[2023-06-10] MEDS ORDERED: ACETAMINOPHEN 325 MG TABLET ONE (13:36)
[2023-06-10] MEDS ORDERED: METHYLPREDNISOLONE 125 MG INJ ONE (13:36)
[2023-06-10] MEDS: IPRATROPIUM BROM 0.5MG/2.5ML NEB SCH (14:00)
[2023-06-10] MEDS ORDERED: ALBUTEROL 2.5 MG/3 ML NEB SOL NEB PRN (14:07)
--- NOTE | 2023-06-10 14:26 | EKG ---
Test Date: 2023-06-10 Test Time: 12:13:58 Wire Basket Maker: KANG MEASUREMENT RESULTS: Intervals: Rate: 71 MO: 168 QRSD: 76 QT: 362 QTc: 393 [place]: P: 75 MO: 168 QRS: 72 T: 78 INTERPRETIVE STATEMENTS: Normal sinus rhythm Normal ECG Compared to ECG 01/20/2022 12:49:43 ST (T wave) deviation no longer present Electronically Signed On 06-10-23 14:25:41 [employer]PORT SALES [employer]ENT by Jimi Garrison
[2023-06-10 14:37] LABS: Specific Gravity > 1.030 (1.005-1.030); Urine Bacteria 20-50 /HPF (<20); Urine Bilirubin NEGATIVE (Negative); Urine Blood Negative (Negative); Urine Clarity Clear (Clear); Urine Color Light-Yellow (Yellow); Urine Glucose NEGATIVE (Negative); Urine Mucus Slight /HPF (None Seen); Urine Protein TRACE (Negative); Urine RBC 21-50 /HPF (None Seen); Urine Urobilinogen Normal (Normal)
--- NOTE | 2023-06-10 14:50 | P.HP ---
Certification for Inpatient Patient admitted to: Inpatient With expected LOS: >2 Midnights Patient will require the following post-hospital care: Other (may require home O2) Practitioner: I am a practitioner with admitting privileges, knowledge of patient current condition, hospital course, and medical plan of care. Services: Services provided to patient in accordance with Admission requirements found in Title 42 Section 412.3 of the Code of Federal Regulations Patient History Date of Service: 06/10/23 Reason for admission: hypoxia, dyspnea History of Present Illness: This 77 yrs old Black Female presents to ER via Wheelchair with complaints of Shortness Of Breath, Cold Symptoms, Headache. The patient has shortness of breath at rest, with light activity. Onset: The symptoms/episode began/occurred 3 day(s) ago. Duration: The symptoms are continuous, and are steadily getting worse. The patient's shortness of breath has no apparent modifying factors. Associated signs and symptoms: Pertinent positives: non-productive cough, fever. Severity of symptoms: At their worst the symptoms were moderate in the emergency department the symptoms are unchanged. The patient has experienced similar episodes in the past, a few times. Allergies No Known Allergies Allergy (Verified 06/17/19 16:51) Home medications list reviewed: Yes Home Medications: Aspirin Chewable [Aspirin Chewable*] 1 tab PO DAILY 06/17/19 Atorvastatin Calcium 40 mg PO DAILY 06/17/19 Clopidogrel Bisulfate [Plavix*] 75 mg PO DAILY 06/17/19 Pantoprazole [Protonix Tab*] 1 tab PO DAILY 06/17/19 Docusate [Colace Cap*] 100 mg PO BID cap 06/21/19 Losartan/Hydrochlorothiazide [Losartan-Hctz 100-12.5 mg Tab] 1 each PO DAILY #30 tablet 06/21/19 Polyethyl Gly 3350 [Glycolax*] 17 gm PO DAILY PRN udbot 06/21/19 Levothyroxine [Synthroid*] 1 tab PO DAILY 09/28/20 Losartan/Hydrochlorothiazide [Losartan-Hctz 100-12.5 mg Tab] 1 tab PO DAILY 09/28/20 Metoprolol Tartrate 100 mg PO DAILY 09/28/20 Prednisol Acet 1% Opth [Pred Forte 1%*] 1 drops EACH EYE TID #1 btl 10/07/20 - Past Medical/Surgical History Has patient received pneumonia vaccine in the past: No Diabetic: No -: CHF -: HTN -: Hypothyroidism -: CAD -: HLD -: syphilis -: Splenectomy -: PTCA 2015 -: endarterectomy Psychosocial/ Personal History: Sexual history: -patient states she was last sexually active about 3 years ago-reports 1 partner, her . Does state that her had multiple sexual partners and she is unaware of how many sexual partners he had or if he was ever diagnosed or showed symptoms of any sexually transmitted diseases. -patient reports a total of 3 sexual partners within her lifetime. -patient has 2 children, 1st with no complications or no signs of congenital syphilis. -patient states that she did not always use protection with her sexual partners. -patient denies ever being diagnosed with any other sexually transmitted diseases such as gonorrhea chlamydia. -patient has never been tested for HIV or any other sexually transmitted diseases. - Family History Mother -: Hypertension, Cancer Notes: Jaw cancer Father -: Hypertension - Social History Smoking Status: Unknown if ever smoked Alcohol use: Yes CD- Drugs: No Caffeine use: Yes Place of Residence: Home Review of Systems 10-point ROS is otherwise unremarkable General: Malaise Eyes: Unremarkable ENT: Unremarkable Respiratory: Cough, Shortness of Breath, SOB with Excertion, As per HPI Cardiovascular: Unremarkable Gastrointestinal: Unremarkable Genitourinary: Unremarkable Musculoskeletal: Unremarkable Integumentary: Unremarkable Lymphatics: Unremarkable Physical Examination - Physical Exam General: Alert, In no apparent distress, Oriented x3 HEENT: Atraumatic, Normocephalic Neck: Supple, 2+ carotid pulse no bruit Respiratory: Rhonchi/gurgles, Other (mostly to right upper lobe) Cardiovascular: Normal pulses, Regular rate/rhythm Capillary refill: <2 Seconds Gastrointestinal: Normal bowel sounds, Soft and benign Musculoskeletal: No clubbing, No swelling, Other (left knee tender) Integumentary: No rashes, No breakdown Neurological: Normal speech Lymphatics: No axilla or inguinal lymphadenopathy External genitalia: Deferred Rectal: Deferred - Studies Laboratory Data (last 24 hrs) 06/10/23 06/10/23 11:50 11:50 WBC 4.00 L Hgb 12.4 Hct 37.0 Plt Count 209 Sodium 137 Potassium 4.1 BUN 16 Creatinine 0.99 Glucose 120 H Magnesium 1.7 Total Bilirubin 0.3 AST 15 ALT 25 Alkaline Phosphatase 86 Microbiology Data (last 24 hrs): 06/10/23 11:52 Nasopharnyx Influenza Type A Antigen Screen - Final 06/10/23 11:52 Nasopharnyx Influenza Type B Antigen Screen - Final Assessment and Plan - Plan Dyspnea with hypoxia, hypercapnea: Monitor SpO2: pt currently on 4L via N/C pCO2 from ABG just reported at 70.2. Bipap ordered consult Dr. Carrasco Essential hypertension: Monitor vital signs and continue current home medications Monitor kidney functions Upper respiratory infection with history of splenectomy: enlarging 13mm right upper lobe mass: Rocephin 1 gm IVPB daily Azithromycin 500mg po daily (for atypical infection with impaired immune system) Discharge Plan: Home Plan to discharge in: 72 Hours - Advance Directives Does patient have a Living Will: No Does patient have a Durable POA for Healthcare: No
[2023-06-10 15:26] LABS: Arterial Blood Carboxyhemoglob 1.3 % (0-1.5); Blood Gas Oxyhemoglobin 92.8 % (94-97); Blood O2 Saturation 95.6 % (92-98.5)
[2023-06-10 18:36] VITALS: BMI 23.6
[2023-06-10] MEDS: ATORVASTATIN 40 MG TAB PO SCH (20:14)
[2023-06-11 06:24] LABS: Absolute Lymphocytes (CBC) 0.6 K/uL (0.7-4.9); Hematocrit 36.4 % (36.0-45.0); Lymphocytes % 16.1 % (15.3-44.8); MPV 7.3 fL (7.6-11.3); Platelets 201 thou/uL (152-406)
[2023-06-11 06:52] LABS: Albumin 2.9 g/dL (3.4-5.0); Bilirubin Total 0.2 mg/dL (0.2-1.0); Magnesium 2.2 mg/dL (1.6-2.4); Potassium 4.3 mEq/L (3.5-5.1); Protein, Total 7.3 g/dL (6.4-8.2)
[2023-06-11] MEDS: ASPIRIN EC 81 MG TAB PO SCH (08:15)
[2023-06-11] MEDS: AZITHROMYCIN 250 MG TAB PO SCH (08:15)
[2023-06-11] MEDS: ENOXAPARIN 40 MG/0.4 ML SQ SCH (08:15)
[2023-06-11] MEDS: LOSARTAN POTASSIUM 50 MG TABLET PO SCH (08:16)
[2023-06-11] MEDS: METOPROLOL XL 50 MG TAB PO SCH (08:16)
[2023-06-11] MEDS: CLOPIDOGREL 75 MG TABLET PO SCH (08:17)
[2023-06-11] MEDS: AMLODIPINE 5 MG TAB PO SCH (08:17)
[2023-06-11] MEDS: CEFTRIAXONE 1,000 MG in NA CHLORIDE 0.9% 50 ML IVPB SCH (08:17)
--- NOTE | 2023-06-11 12:35 | P.PN ---
Subjective Date of Service: 06/11/23 Chief Complaint: hypoxia, dyspnea, hypercapnia Subjective: Improving Review of Systems 10-point ROS is otherwise unremarkable General: Malaise Eyes: Unremarkable ENT: Unremarkable Respiratory: Cough, Other, As per HPI (wheezing, wore BiPap last pm, taken off at 0430 this am per RT) Cardiovascular: As per HPI Gastrointestinal: Unremarkable Genitourinary: Unremarkable Musculoskeletal: Unremarkable Integumentary: Unremarkable Neurological: Unremarkable Lymphatics: Unremarkable Physical Examination - Vital Signs Temperature: 97.3 F Blood Pressure: 130/94 Pulse: 75 Respirations: 18 Pulse Ox (%): 100 - Physical Exam General: Alert, In no apparent distress, Oriented x3 HEENT: Atraumatic, Normocephalic Neck: Supple, 2+ carotid pulse no bruit Respiratory: Expiratory wheezes, Other (taken off BiPap at 0430, Pt on 3L n/c) Cardiovascular: No edema, Systolic murmur Capillary refill: <2 Seconds Gastrointestinal: Normal bowel sounds, Soft and benign Musculoskeletal: No clubbing Integumentary: No rashes, No breakdown Neurological: Normal speech, Normal tone Lymphatics: No axilla or inguinal lymphadenopathy External genitalia: Deferred Rectal: Deferred - Studies Microbiology Data (last 24 hrs): 06/10/23 11:52 Nasopharnyx Influenza Type A Antigen Screen - Final 06/10/23 11:52 Nasopharnyx Influenza Type B Antigen Screen - Final Assessment And Plan - Plan Dyspnea with hypoxia, hypercapnea: Monitor SpO2: pt currently on 4L via N/C pCO2 from ABG just reported at 70.2. Bipap ordered - placed on BiPap yesterday about 3pm. Removed per RT this am at 0430. Pt on 3L N/C. Will repeat ABG to assess CO2 consult Dr. Carrasco Essential hypertension: Monitor vital signs and continue current home medications Monitor kidney functions Upper respiratory infection with history of splenectomy: enlarging 13mm right upper lobe mass: Rocephin 1 gm IVPB daily Azithromycin 500mg po daily (for atypical infection with impaired immune system) Albuterol nebs Discharge Plan: Home Plan to discharge in: 24 Hours - Code Status/Comfort Care Code Status Assessed: Yes (Full)
[2023-06-11 13:14] LABS: Blood O2 Saturation 97.6 % (92-98.5)
[2023-06-11 13:15] LABS: Blood Gas Oxyhemoglobin 95.6 % (94-97)
--- NOTE | 2023-06-11 16:34 | P.DS ---
Admission Date: 06/10/23 Discharge Date: 06/12/23 Disposition: ROUTINE DISCHARGE Discharge Condition: GOOD Reason for Admission: hypoxia, dyspnea, hypercapnia Brief History of Present Illness: This 77 yrs old Black Female presents to ER via Wheelchair with complaints of Shortness Of Breath, Cold Symptoms, Headache. The patient has shortness of breath at rest, with light activity. Onset: The symptoms/episode began/occurred 3 day(s) ago. Duration: The symptoms are continuous, and are steadily getting worse. The patient's shortness of breath has no apparent modifying factors. Associated signs and symptoms: Pertinent positives: non-productive cough, fever. Severity of symptoms: At their worst the symptoms were moderate in the emergency department the symptoms are unchanged. The patient has experienced similar episodes in the past, a few times. Hospital Course: Ms. Dia was admitted for COPD exacerbation, hypoxia, hypercapnia. She received breathing treatments, antibiotics, and was placed on BiPAP for pCO2 of 70.2. This was slept well on BiPAP until it was removed around 430 this morning. Repeat ABG shows an improvement of the pCO2 to 54.8 and improvement of the pO2 to 98.6. Ms. Dia will be encouraged to follow-up with Dr. Main outpatient. She states she is feeling much better and would like to go home. Trial on room air shows patient will need home O2. Ordered ending to [facility] Patient Vital Signs/Physical Exam: Temp Pulse Resp BP Pulse Ox 97.3 F 75 18 130/94 H 100 06/11/23 12:35 06/11/23 12:35 06/11/23 12:35 06/11/23 12:35 06/11/23 12:35 General: Alert, In no apparent distress, Oriented x3 HEENT: Atraumatic, Normocephalic Neck: Supple, 2+ carotid pulse no bruit Respiratory: Normal air movement, Expiratory wheezes Cardiovascular: No edema, Regular rate/rhythm Capillary refill: <2 Seconds Gastrointestinal: Normal bowel sounds, Soft and benign Musculoskeletal: No clubbing, No swelling Integumentary: No rashes, No breakdown Neurological: Normal speech, Normal tone Lymphatics: No axilla or inguinal lymphadenopathy External genitalia: Deferred Rectal: Deferred Laboratory Data at Discharge: WBC 3.90 thou/uL (4.3-10.9) L 06/11/23 05:29 Hgb 12.0 g/dL (12.0-15.0) 06/11/23 05:29 Hct 36.4 % (36.0-45.0) 06/11/23 05:29 Plt Count 201 thou/uL (152-406) 06/11/23 05:29 Sodium 137 mEq/L (136-145) 06/11/23 05:29 Potassium 4.3 mEq/L (3.5-5.1) 06/11/23 05:29 BUN 17 mg/dL (7-18) 06/11/23 05:29 Creatinine 0.92 mg/dL (0.55-1.02) 06/11/23 05:29 Glucose 128 mg/dL (74-106) H 06/11/23 05:29 Magnesium 2.2 mg/dL (1.6-2.4) 06/11/23 05:29 Total Bilirubin 0.2 mg/dL (0.2-1.0) 06/11/23 05:29 AST 24 U/L (15-37) 06/11/23 05:29 ALT 37 U/L (13-56) 06/11/23 05:29 Alkaline Phosphatase 87 U/L (45-117) 06/11/23 05:29 Triglycerides 33 mg/dL (<150) 06/11/23 05:29 Cholesterol 111 mg/dL (<200) 06/11/23 05:29 HDL Cholesterol 65 mg/dL (40-60) H 06/11/23 05:29 Cholesterol/HDL Ratio 1.71 06/11/23 05:29 Home Medications: Aspirin Chewable [Aspirin Chewable*] 1 tab PO DAILY 06/17/19 Atorvastatin Calcium 40 mg PO DAILY 06/17/19 Clopidogrel Bisulfate [Plavix*] 75 mg PO DAILY 06/17/19 Docusate [Colace Cap*] 100 mg PO BID cap 06/21/19 Levothyroxine [Synthroid*] 1 tab PO DAILY 09/28/20 Metoprolol Tartrate 50 mg PO DAILY 09/28/20 Albuterol Neb [Proventil 0.083% Neb Soln] 2.5 mg NEB Q8HP PRN #26 amp 06/11/23 Amlodipine [Norvasc*] 5 mg PO DAILY 06/11/23 Azithromycin Tab [Zithromax*] 500 mg PO DAILY #3 tab 06/11/23 Ipratropium Neb [Atrovent*] 0.5 mg NEB Q8HR #26 amp 06/11/23 Losartan Potassium [Cozaar] 25 mg PO DAILY 06/11/23 Polyethyl Gly 3350 [Glycolax*] 17 gm PO PRN PRN 06/11/23 Fluticasone/Umeclidin/Vilanter [Trelegy Ellipta 100-62.5-25] 1 each IH DAILY 30 Days #30 aero 06/12/23 predniSONE [Prednisone*] 20 mg PO BID 7 Days #14 tab 06/12/23 New Medications: Ipratropium Neb [Atrovent*] 0.5 mg NEB Q8HR #26 amp Albuterol Neb [Proventil 0.083% Neb Soln] 2.5 mg NEB Q8HP PRN #26 amp PRN Reason: Shortness Of Breath predniSONE [Prednisone*] 20 mg PO BID 7 Days #14 tab Fluticasone/Umeclidin/Vilanter [Trelegy Ellipta 100-62.5-25] 1 each IH DAILY 30 Days #30 aero Azithromycin Tab [Zithromax*] 500 mg PO DAILY #3 tab Physician Discharge Instructions: [facility] Patient Address: [address] [place] [address], [place] [address] Diet: [facility] Followup: Lance Carrasco MD [ACTIVE - CAN ADMIT] - Jeremi Alaniz DO [Primary Care Provider] -
[2023-06-11] MEDS ORDERED: ALBUTEROL 2.5 MG/3 ML NEB SOL NEB PRN (17:20)
--- NOTE | 2023-06-11 17:21 | P.CNS ---
Date of Consult: 06/11/23 Reason for Consult: COPD exacerbation Chief Complaint: hypoxia, dyspnea, hypercapnia History of Present Illness: Patient is 77 years of age former smoker quit smoking 2 years ago former heavy smoker admitted with progressive dyspnea found to have hypoxic hypercapnic respiratory failure patient had worsened over the preceding 3 days denies any cough chest pain sputum doing better since admission prior history of obstructive airways disease Allergies No Known Allergies Allergy (Verified 06/17/19 16:51) Home Medications: Aspirin Chewable [Aspirin Chewable*] 1 tab PO DAILY 06/17/19 Atorvastatin Calcium 40 mg PO DAILY 06/17/19 Clopidogrel Bisulfate [Plavix*] 75 mg PO DAILY 06/17/19 Docusate [Colace Cap*] 100 mg PO BID cap 06/21/19 Levothyroxine [Synthroid*] 1 tab PO DAILY 09/28/20 Metoprolol Tartrate 50 mg PO DAILY 09/28/20 Albuterol Neb [Proventil 0.083% Neb Soln] 2.5 mg NEB Q8HP PRN #26 amp 06/11/23 Amlodipine [Norvasc*] 5 mg PO DAILY 06/11/23 Azithromycin Tab [Zithromax*] 500 mg PO DAILY #3 tab 06/11/23 Ipratropium Neb [Atrovent*] 0.5 mg NEB Q8HR #26 amp 06/11/23 Losartan Potassium [Cozaar] 25 mg PO DAILY 06/11/23 Polyethyl Gly 3350 [Glycolax*] 17 gm PO PRN PRN 06/11/23 - Past Medical/Surgical History Diabetic: No -: CHF -: HTN -: Hypothyroidism -: CAD -: HLD -: syphilis -: Splenectomy -: PTCA 2015 -: endarterectomy Psychosocial/ Personal History: Sexual history: -patient states she was last sexually active about 3 years ago-reports 1 partner, her . Does state that her had multiple sexual partners and she is unaware of how many sexual partners he had or if he was ever diagnosed or showed symptoms of any sexually transmitted diseases. -patient reports a total of 3 sexual partners within her lifetime. -patient has 2 children, 1st with no complications or no signs of congenital syphilis. -patient states that she did not always use protection with her sexual partners. -patient denies ever being diagnosed with any other sexually transmitted diseases such as gonorrhea chlamydia. -patient has never been tested for HIV or any other sexually transmitted diseases. - Family History Mother Medical History: Hypertension, Cancer Notes: Jaw cancer Father Medical History: Hypertension - Social History Smoking Status: Current some day smoker Alcohol use: No CD- Drugs: No Caffeine use: Yes Place of Residence: Home Review of Systems 10-point ROS is otherwise unremarkable Physical Examination Temp Pulse Resp BP Pulse Ox 97.6 F 61 16 131/68 97 06/11/23 16:00 06/11/23 16:00 06/11/23 16:00 06/11/23 16:00 06/11/23 16:00 General: Alert, In no apparent distress, Oriented x3 HEENT: Atraumatic Neck: Supple Respiratory: Clear to auscultation bilaterally, Diminished Cardiovascular: No edema, Normal pulses, Regular rate/rhythm, Normal S1 S2 Gastrointestinal: Normal bowel sounds, Soft and benign, Non-distended Musculoskeletal: No clubbing, No swelling, No contractures - Problems (1) Acute and chronic respiratory failure Current Visit: Yes Status: Acute Plan: Patient is 77 years of age former heavy smoker admitted with progressive dyspnea worse in the preceding 3 days and was hypoxic hypercapnic on admission most likely she has significant obstructive airways disease admitted with an exacerbation currently doing better treated with bronchodilators and steroids she does not take any bronchodilators at home chemistries reviewed bicarbonate is mildly elevated add steroids need a long-acting bronchodilator at home evaluate for home O2 can DC antibiotics x-ray is clear evidence of any infection
[2023-06-11] MEDS: predniSONE 20 MG TAB PO SCH (21:44)
[2023-06-12 04:14] LABS: Absolute Lymphocytes (CBC) 0.4 K/uL (0.7-4.9); Hematocrit 37.1 % (36.0-45.0); Lymphocytes % 5.2 % (15.3-44.8); MCV 103.9 fL (80-100); MPV 7.3 fL (7.6-11.3); Platelets 202 thou/uL (152-406); RBC Red Blood Cell Count 3.57 M/uL (3.86-4.86)
[2023-06-12 05:12] LABS: Albumin 2.9 g/dL (3.4-5.0); Bilirubin Total 0.2 mg/dL (0.2-1.0); Magnesium 2.1 mg/dL (1.6-2.4); Potassium 4.8 mEq/L (3.5-5.1); Protein, Total 7.1 g/dL (6.4-8.2)
[2023-06-12 08:19] LABS: Blood Morphology Comment NOT SEEN (NOT SEEN); Platelet Estimate ADEQ
--- NOTE | 2023-06-12 08:41 | P.PN ---
Subjective Date of Service: 06/12/23 Chief Complaint: COPD exacerbation Subjective: Improving (Patient is improving doing much better) Review of Systems Unremarkable General: Weakness Respiratory: Shortness of Breath Physical Examination - Vital Signs Temperature: 97.0 F Blood Pressure: 145/92 Pulse: 62 Respirations: 18 Pulse Ox (%): 95 - Physical Exam General: Alert, Oriented x3 Respiratory: Clear to auscultation bilaterally, Diminished Cardiovascular: No edema, Regular rate/rhythm, Normal S1 S2 Gastrointestinal: Normal bowel sounds, Soft and benign Assessment And Plan - Current Problems (Diagnosis) (1) Acute and chronic respiratory failure Current Visit: Yes Status: Acute Plan: Patient has improved significantly most likely secondary to COPD exacerbation plan to evaluate for home O2 ambulate possible discharge on a long-acting bronchodilator and prednisone 20 mg twice a day for a week need to taper no antibiotics indicated use an albuterol inhaler or nebulizer as needed follow-up with me in 2 weeks
--- NOTE | 2023-06-12 09:55 | P.DS ---
Admission Date: 06/10/23 Discharge Date: 06/12/23 Disposition: ROUTINE DISCHARGE Discharge Condition: GOOD Reason for Admission: COPD exacerbation Brief History of Present Illness: This 77 yrs old Black Female presents to ER via Wheelchair with complaints of Shortness Of Breath, Cold Symptoms, Headache. The patient has shortness of breath at rest, with light activity. Onset: The symptoms/episode began/occurred 3 day(s) ago. Duration: The symptoms are continuous, and are steadily getting worse. The patient's shortness of breath has no apparent modifying factors. Associated signs and symptoms: Pertinent positives: non-productive cough, fever. Severity of symptoms: At their worst the symptoms were moderate in the emergency department the symptoms are unchanged. The patient has experienced similar episodes in the past, a few times. Hospital Course: Ms. Dia was admitted for COPD exacerbation, hypoxia, hypercapnia. She received breathing treatments, antibiotics, and was placed on BiPAP for pCO2 of 70.2. This was slept well on BiPAP until it was removed around 430 this morning. Repeat ABG shows an improvement of the pCO2 to 54.8 and improvement of the pO2 to 98.6. Ms. Dia will be encouraged to follow-up with Dr. Main outpatient. At this time she would not qualify nor necessitate oxygen therapy at home. She states she is feeling much better and would like to go home. Vital Signs/Physical Exam: Temp Pulse Resp BP Pulse Ox 97.0 F 67 18 154/83 H 95 06/12/23 08:41 06/12/23 09:39 06/12/23 08:41 06/12/23 09:39 06/12/23 08:41 General: Alert, In no apparent distress, Oriented x3 HEENT: Atraumatic, Normocephalic Neck: Supple, 2+ carotid pulse no bruit Respiratory: Normal air movement, Expiratory wheezes Cardiovascular: No edema Capillary refill: <2 Seconds Gastrointestinal: Normal bowel sounds, Soft and benign Musculoskeletal: No clubbing Integumentary: No rashes, No breakdown Neurological: Normal speech, Normal tone Lymphatics: No axilla or inguinal lymphadenopathy External genitalia: Deferred Rectal: Deferred Laboratory Data at Discharge: WBC 8.30 thou/uL (4.3-10.9) 06/12/23 04:01 Hgb 12.4 g/dL (12.0-15.0) 06/12/23 04:01 Hct 37.1 % (36.0-45.0) 06/12/23 04:01 Plt Count 202 thou/uL (152-406) 06/12/23 04:01 Sodium 138 mEq/L (136-145) 06/12/23 04:01 Potassium 4.8 mEq/L (3.5-5.1) 06/12/23 04:01 BUN 15 mg/dL (7-18) 06/12/23 04:01 Creatinine 0.90 mg/dL (0.55-1.02) 06/12/23 04:01 Glucose 108 mg/dL (74-106) H 06/12/23 04:01 Magnesium 2.1 mg/dL (1.6-2.4) 06/12/23 04:01 Total Bilirubin 0.2 mg/dL (0.2-1.0) 06/12/23 04:01 AST 26 U/L (15-37) 06/12/23 04:01 ALT 32 U/L (13-56) 06/12/23 04:01 Alkaline Phosphatase 81 U/L (45-117) 06/12/23 04:01 Triglycerides 33 mg/dL (<150) 06/11/23 05:29 Cholesterol 111 mg/dL (<200) 06/11/23 05:29 HDL Cholesterol 65 mg/dL (40-60) H 06/11/23 05:29 Cholesterol/HDL Ratio 1.71 06/11/23 05:29 Home Medications: Aspirin Chewable [Aspirin Chewable*] 1 tab PO DAILY 06/17/19 Atorvastatin Calcium 40 mg PO DAILY 06/17/19 Clopidogrel Bisulfate [Plavix*] 75 mg PO DAILY 06/17/19 Docusate [Colace Cap*] 100 mg PO BID cap 06/21/19 Levothyroxine [Synthroid*] 1 tab PO DAILY 09/28/20 Metoprolol Tartrate 50 mg PO DAILY 09/28/20 Albuterol Neb [Proventil 0.083% Neb Soln] 2.5 mg NEB Q8HP PRN #26 amp 06/11/23 Amlodipine [Norvasc*] 5 mg PO DAILY 06/11/23 Azithromycin Tab [Zithromax*] 500 mg PO DAILY #3 tab 06/11/23 Ipratropium Neb [Atrovent*] 0.5 mg NEB Q8HR #26 amp 06/11/23 Losartan Potassium [Cozaar] 25 mg PO DAILY 06/11/23 Polyethyl Gly 3350 [Glycolax*] 17 gm PO PRN PRN 06/11/23 Fluticasone/Umeclidin/Vilanter [Trelegy Ellipta 100-62.5-25] 1 each IH DAILY 30 Days #30 aero 06/12/23 predniSONE [Prednisone*] 20 mg PO BID 7 Days #14 tab 06/12/23 New Medications: Ipratropium Neb [Atrovent*] 0.5 mg NEB Q8HR #26 amp Albuterol Neb [Proventil 0.083% Neb Soln] 2.5 mg NEB Q8HP PRN #26 amp PRN Reason: Shortness Of Breath predniSONE [Prednisone*] 20 mg PO BID 7 Days #14 tab Fluticasone/Umeclidin/Vilanter [Trelegy Ellipta 100-62.5-25] 1 each IH DAILY 30 Days #30 aero Azithromycin Tab [Zithromax*] 500 mg PO DAILY #3 tab Diet: AHA Followup: Lance Carrasco MD [ACTIVE - CAN ADMIT] - Jeremi Alaniz DO [Primary Care Provider] -
[2023-06-12] MEDS: DULERA 200/5 (MOMETASONE/FORMOTEROL) INHALER IH SCH (10:52)
[2023-06-12 12:41] VITALS: O2SAT 93
[2023-06-12 17:18] VITALS: BP 117/70; TEMP 98.2
== END 2023-06-12 17:31 | disposition home or self-care (01) | DRG 189 ==
LOC: ER 11:09 → ERHOLD 14:22 → 2ND 15:29
PROVIDERS: ADMIT Hospitalist; ATTEND Hospitalist
PROC: 5A09457 Assistance with Respiratory Ventilation, 24-96 Consecutive Hours, Continuous Positive Airway Pressure (ICD-10-PCS; principal; 2023-06-10)
DX: J96.22 Acute and chronic respiratory failure with hypercapnia (principal); J44.1 Chronic obstructive pulmonary disease with (acute) exacerbation; J96.21 Acute and chronic respiratory failure with hypoxia; I10 Essential (primary) hypertension; E03.9 Hypothyroidism, unspecified; J06.9 Acute upper respiratory infection, unspecified; E78.00 Pure hypercholesterolemia, unspecified; I25.10 Atherosclerotic heart disease of native coronary artery without angina pectoris; Z95.5 Presence of coronary angioplasty implant and graft; Z90.81 Acquired absence of spleen; Z11.52 Encounter for screening for COVID-19; Z79.82 Long term (current) use of aspirin; Z79.02 Long term (current) use of antithrombotics/antiplatelets; Z79.890 Hormone replacement therapy; Z87.891 Personal history of nicotine dependence; Z79.899 Other long term (current) drug therapy
CPT/HCPCS: 36415; 36600; 71045; 71275; 80048; 80053; 80061; 80076; 81001; 82805; 82947; 83605; 83735; 83880; 84484; 85025; 87040; 87804; 87811; 93005; 94010; 94640; 94660; 94760; 96365; 96375; 99285; J0696; J1650; J2930; J3475; J3535; J7040; J7050; J7512; J7614; J7644; Q9967

== ENCOUNTER 2023-09-10 13:48 | Inpatient (IN) | payer OTHER ==
--- OUTSIDE RECORDS SUMMARY | 2023-09-10 13:54 | XMS REPORT | Continuity of Care Document ---
Author Name Unknown Address [address] [facility] [address] [place] [address] [facility] thconnect Address [address] [facility] [place] [place] [address] Care Team Providers Care Molding Room Supervisor Name Role Phone Jeremi Alaniz Attending Clinician Unavailable Rohith Kc Attending Clinician UnavailJose Garduno Admitting Clinician Unavailable Payers Payer Name Policy Type Policy Number Effective Date Expirati on Date Source [facility]IC[facility] [id number] 2011 00:00:00 [facility] MEDICARE [place] [id number] 2011 00:00:00 [facility] MEDICARE [place] [id number] 2011 00:00:00 [facility] MEDICARE PART A \T\ B [id number] 2011 00:00:00 Problems Condition Name Condition Details Condition Category Status Onset Date Resolution Date Last Treatment Date Treating Clinician Comments Source [id number] Stage 3a chronic kidney disease Problem [facility] [id number] Macrocytic Problem Com mon [facility] [id number] Coronary artery disease involving [place] coronary artery of [place] heart with angina pectoris Problem Common [facility] [id number] Hypercalce em Problem [facility] [id number] Non-season al allergic rhinitis, unspecifie d trigger Problem [facility] [id number] Constipati on, unspecifie d constipati on type Problem Common [facility] [id number] GERD without esophagiti s Problem Common [facility] [id number] Mixed hyperlipid emia Problem Common [facility] [id number] Chronic diastolic congestive heart failure Problem Common [facility] [id number] Hypothyroi dism, unspecifie d type Problem [facility] [id number] Paroxysmal atrial fibrillati on Problem [facility] [id number] Essential hypertensi on Problem [facility] [id number] S/P splenectom y Problem [facility] Standard chest X-ray abnormal Abnormal chest x-ray Problem [facility] [id number] 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 Problem Common [facility] [id number] COPD exacerbati on Problem [facility] [id number] Right upper lobe pulmonary nodule Problem [facility] [id number] Chronic obstructiv e pulmonary disease, unspecifie d COPD type Problem [facility] [id number] Chronic respirator y failure with hypoxia Problem [facility] Allergies, Adverse Reactions, Alerts Allergy Name Allergy Type Status Severity Reaction(s) Onset Date Inactive Date Treating Clinician Comments Source No Known Allergie s DA Active U 05-04 00:00: 00 [facility] No Known Allergie s DA Active U 05-04 00:00: 00 [facility] No Known Allergie s DA Active U 09-29 00:00: 00 [facility] No Known Allergie s DA Active U 09-29 00:00: 00 [facility] No Known Contrast Allergie s DA Active U 06-12 00:00: 00 [facility] No Known Drug Allergie s DA Active U 06-12 00:00: 00 [facility] No Known Food Allergie s DA Active U 06-12 00:00: 00 [facility] No Known Other Allergie s DA Active U 06-12 00:00: 00 [facility] NO KNOWN ALLERGIE S Drug Class Active [facility] Social History Social Habit Start Date Stop Date Quantity Comments Source History of Tobacco Use [facility] Sex Assigned At [facility] Smoking Status Start Date Stop Date Source Former Smoker 2023-06-14 00:00:00 2023-06-14 00:00:00 [facility] Medications Ordered Medication Name Filled Medication Name Start Date Stop Date Current Medication? Ordering Clinician Indication Dosage Frequency Signature (SIG) Comments Components Source Losartan Potassium 50 MG Losartan Potassium 50 MG 2020-04 00:00: 00 No 1{table t} QD Losartan Potassium 50 MG Losartan Potassium-H CTZ Losartan Potassium-H CTZ Yes Jeremi Alaniz 1 tablet [facility] Polyethylen e Glycol Polyethylen e Glycol Yes Jeremi Alaniz not defined [facility] MiraLax MiraLax Yes Jeremi Alaniz not defined [facility] Atorvastati n Calcium Atorvastati n Calcium Yes Jeremi Alaniz 1 tablet [facility] Aspirin 81 Aspirin 81 Yes Jeremi Alaniz 1 tablet [facility] Pantoprazol e Sodium Pantoprazol e Sodium Yes Jeremi Alaniz 1 tablet [facility] Sodium Chloride Sodium Chloride Yes Jeremi Alaniz not defined [facility] Potassium Chloride Li ER Potassium Chloride Li ER Yes Jeremi Alaniz TAKE 1 TABLET BY MOUTH ONCE DAILY [facility] Metoprolol Tartrate Metoprolol Tartrate Yes Jeremi Alaniz TAKE 1 TABLET BY MOUTH ONCE DAILY WITH FOOD FOR 90 DAYS [facility] Levothyroxi ne Sodium Levothyroxi ne Sodium Yes Jeremi Alaniz 1 tablet in the morning on an empty stomach [facility] Metoprolol Tartrate Metoprolol Tartrate Yes Jeremi Alaniz 1 tablet with food [facility] Clopidogrel Bisulfate Clopidogrel Bisulfate Yes Jeremi Alaniz 1 tablet [facility] Docusate Sodium Docusate Sodium Yes Jeremi Alaniz 1 capsule as needed [facility] Potassium Chloride Potassium Chloride Yes Jeremi Alaniz 1 packet with food [facility] penicillin penicillin Yes Jeremi Alaniz not defined [facility] Atorvastati n Calcium 40 MG Atorvastati n [...] MG No Clopidogre l Bisulfate 75 MG amLODIPine Besylate 5 MG amLODIPine Besylate 5 MG No 1{table t} QD amLODIPine Besylate 5 MG Pantoprazol e Sodium 40 MG Pantoprazol e Sodium 40 MG No 1{table t} QD Pantoprazo le Sodium 40 MG EQ Stool Softener 100 MG EQ Stool Softener 100 MG No EQ Stool Softener 100 MG Losartan Potassium-H CTZ 100-12.5 MG Losartan Potassium-H CTZ 100-12.5 MG No Losartan Potassium- HCTZ 100-12.5 MG Potassium Chloride 20 MEQ Potassium Chloride 20 MEQ No 1{packe t_with_ food} QD Potassium Chloride 20 MEQ Potassium Chloride Li ER 20 MEQ Potassium Chloride Li ER 20 MEQ No Potassium Chloride Li ER 20 MEQ Euthyrox 88 MCG Euthyrox 88 MCG No Euthyrox 88 MCG Metoprolol Tartrate 50 MG Metoprolol Tartrate 50 MG No 1{table t_with_ food} QD Metoprolol Tartrate 50 MG Potassium Chloride 20 [...] MG No QD Metoprolol Tartrate 100 MG Clopidogrel Bisulfate [...] 50 MG No Losartan Potassium 50 MG Pantoprazol e Sodium 40 MG Pantoprazol e Sodium 40 MG No 1{table t} QD Pantoprazo le Sodium 40 MG Euthyrox 88 MCG Euthyrox 88 MCG No Euthyrox 88 MCG Docusate Sodium 100 MG Docusate Sodium 100 MG No 1{capsu le_as_n eeded} BID Docusate Sodium 100 MG Metoprolol Tartrate 50 MG Metoprolol Tartrate 50 MG No 1{table t_with_ food} QD Metoprolol Tartrate 50 MG Euthyrox 100 MCG Euthyrox 100 MCG No Euthyrox 100 MCG Levothyroxi ne Sodium 100 MCG Levothyroxi ne Sodium 100 MCG No QD Levothyrox ine Sodium 100 MCG Aspirin 81 81 MG Aspirin 81 81 MG No 1{table t} QD Aspirin 81 81 MG Clopidogrel Bisulfate 75 MG Clopidogrel Bisulfate 75 MG No Clopidogre l Bisulfate 75 MG Levothyroxi ne Sodium 100 MCG Levothyroxi ne Sodium 100 MCG No QD Levothyrox ine Sodium 100 MCG Docusate Sodium 100 MG Docusate Sodium 100 MG No 1{capsu le_as_n eeded} BID Docusate Sodium 100 MG Metoprolol Tartrate 50 MG Metoprolol Tartrate 50 MG No 1{table t_with_ food} QD Metoprolol Tartrate 50 MG Atorvastati n Calcium 40 MG Atorvastati n Calcium 40 MG No Atorvastat in Calcium 40 MG Losartan Potassium 50 MG Losartan Potassium 50 MG No Losartan Potassium 50 MG Pantoprazol e Sodium [...] 1{table t} QD amLODIPine Besylate 5 MG Docusate Sodium 100 MG Docusate Sodium 100 MG No 1{capsu le_as_n eeded} BID Docusate Sodium 100 MG Losartan Potassium 25 MG Losartan Potassium 25 MG No 1{table t} QD Losartan Potassium 25 MG Klor-Con M20 20 MEQ Klor-Con M20 20 MEQ No Klor-Con M20 20 MEQ Aspirin 81 81 MG Aspirin 81 81 MG No 1{table t} QD Aspirin 81 81 MG Aspirin 81 81 MG Aspirin 81 [...] 1{table t} QD Losartan Potassium 25 MG Clopidogrel Bisulfate 75 MG Clopidogrel Bisulfate 75 MG No 1{table t} QD Clopidogre l Bisulfate 75 MG Potassium Chloride 20 MEQ Potassium Chloride [...] 1{table t} QD Losartan Potassium 25 MG Clopidogrel Bisulfate 75 MG Clopidogrel Bisulfate 75 MG No 1{table t} QD Clopidogre l Bisulfate 75 MG Potassium Chloride 20 MEQ Potassium Chloride [...] No Potassium Chloride Li ER 20 MEQ Pantoprazol e Sodium 40 MG Pantoprazol e [...] 1{table t} QD Losartan Potassium 25 MG Levothyroxi ne Sodium 100 MCG Levothyroxi [...] 1{table t} QD Losartan Potassium 25 MG Levothyroxi ne Sodium 100 MCG Levothyroxi [...] 1{table t} QD Losartan Potassium 25 MG Levothyroxi ne Sodium 100 MCG Levothyroxi [...] 1{table t} QD Losartan Potassium 25 MG Levothyroxi ne Sodium 100 MCG Levothyroxi [...] 20 MEQ No Klor-Con M20 20 MEQ Clopidogrel Bisulfate 75 MG Clopidogrel Bisulfate 75 [...] Bisulfate 75 MG MiraLax MiraLax No MiraLax Losartan Potassium 50 MG Losartan Potassium 50 MG No Losartan Potassium 50 MG Docusate Sodium 100 MG Docusate [...] MG No Atorvastat in Calcium 40 MG Levothyroxi ne Sodium 100 MCG Levothyroxi ne Sodium 100 MCG No QD Levothyrox ine Sodium 100 MCG methylPREDN ISolone 4 MG methylPREDN ISolone 4 MG No methylPRED NISolone 4 MG Levothyroxi ne Sodium 100 MCG Levothyroxi ne Sodium 100 MCG No Levothyrox ine Sodium 100 MCG Klor-Con M20 20 MEQ Klor-Con M20 20 MEQ No Klor-Con M20 20 MEQ Pantoprazol e Sodium 40 MG Pantoprazol e Sodium 40 MG No 1{table t} QD Pantoprazo le Sodium 40 MG Metoprolol Tartrate 50 MG Metoprolol Tartrate 50 MG No Metoprolol Tartrate 50 MG Pantoprazol e Sodium 40 MG Pantoprazol e Sodium 40 MG No 1{table t} QD Pantoprazo le Sodium 40 MG guaiFENesin -Codeine 200-20 MG/10ML guaiFENesin -Codeine 200-20 MG/10ML No 10{ml_a s_neede d} 6xD guaiFENesi n-Codeine 200-20 MG/10ML Aspirin 81 81 MG Aspirin 81 81 MG No 1{table t} QD Aspirin 81 81 MG Levothyroxi ne Sodium 100 MCG Levothyroxi ne Sodium 100 MCG No Levothyrox ine Sodium 100 MCG predniSONE 20 MG predniSONE 20 MG No 1{table t} QD predniSONE 20 MG Docusate Sodium 100 MG Docusate Sodium 100 MG No 1{capsu le_as_n eeded} BID Docusate Sodium 100 MG Albuterol Sulfate (2.5 MG/3ML) 0.083% Albuterol Sulfate (2.5 MG/3ML) 0.083% No 3{ml_as _needed } QID Albuterol Sulfate (2.5 MG/3ML) 0.083% Potassium Chloride 20 MEQ Potassium Chloride 20 MEQ No 1{packe t_with_ food} QD Potassium Chloride 20 MEQ amLODIPine Besylate 5 MG amLODIPine Besylate 5 MG No 1{table t} QD amLODIPine Besylate 5 MG Atorvastati n Calcium 40 MG Atorvastati n Calcium 40 MG No Atorvastat in Calcium 40 MG Azithromyci n 250 MG Azithromyci n 250 MG No Azithromyc in 250 MG Clopidogrel Bisulfate 75 MG Clopidogrel Bisulfate 75 MG No Clopidogre l Bisulfate 75 MG Cefdinir 300 MG Cefdinir 300 MG No BID Cefdinir 300 MG Losartan Potassium 25 MG Losartan Potassium 25 MG No 1{table t} BID Losartan Potassium 25 MG Metoprolol Tartrate 50 MG Metoprolol Tartrate 50 MG No Metoprolol Tartrate 50 MG Immunizations Ordered Immunization Name Filled Immunization Name Date Status Comments Source Fluzone Fluzone 2021-03-27 10:30:00 Completed [facility] Fluzone Fluzone 2021-03-27 10:30:00 Completed [facility] Fluzone Fluzone 2021-03-27 10:30:00 Completed [facility] Fluzone Fluzone 2021-03-27 10:30:00 Completed [facility] Fluzone Fluzone 2021-03-27 10:30:00 Completed [facility] Fluzone Fluzone 2021-03-27 10:30:00 Completed [facility] Fluzone Fluzone 2021-03-27 10:30:00 Completed [facility] Fluzone Fluzone 2021-03-27 10:30:00 Completed [facility] Fluzone Fluzone 2021-03-27 10:30:00 Completed [facility] Fluzone Fluzone 2021-03-27 10:30:00 Completed [facility] Pneumovax (PPSV23) Pneumovax (PPSV23) 2021-03-27 10:29:00 Completed [facility] Pneumovax (PPSV23) Pneumovax (PPSV23) 2021-03-27 10:29:00 Completed [facility] Pneumovax (PPSV23) Pneumovax (PPSV23) 2021-03-27 10:29:00 Completed [facility] Pneumovax (PPSV23) Pneumovax (PPSV23) 2021-03-27 10:29:00 Completed [facility] Pneumovax (PPSV23) Pneumovax (PPSV23) 2021-03-27 10:29:00 Completed [facility] Pneumovax (PPSV23) Pneumovax (PPSV23) 2021-03-27 10:29:00 Completed [facility] Pneumovax (PPSV23) Pneumovax (PPSV23) 2021-03-27 10:29:00 Completed [facility] Pneumovax (PPSV23) Pneumovax (PPSV23) 2021-03-27 10:29:00 Completed [facility] Pneumovax (PPSV23) Pneumovax (PPSV23) 2021-03-27 10:29:00 Completed [facility] Pneumovax (PPSV23) Pneumovax (PPSV23) 2021-03-27 10:29:00 Completed [facility] FluAD FluAD 2019-11-27 08:58:00 Completed [facility] FluAD FluAD 2019-11-27 08:58:00 Completed [facility] FluAD FluAD 2019-11-27 08:58:00 Completed [facility] FluAD FluAD 2019-11-27 08:58:00 Completed [facility] FluAD FluAD 2019-11-27 08:58:00 Completed [facility] FluAD FluAD 2019-11-27 08:58:00 Completed [facility] FluAD FluAD 2019-11-27 08:58:00 Completed [facility] FluAD FluAD 2019-11-27 08:58:00 Completed [facility] FluAD FluAD 2019-11-27 08:58:00 Completed [facility] FluAD FluAD 2019-11-27 08:58:00 Completed [facility] FluAD FluAD 2019-11-27 08:58:00 Completed [facility] FluAD FluAD 2019-11-27 08:58:00 Completed [facility] FluAD FluAD 2019-11-27 08:58:00 Completed [facility] FluAD FluAD Unknown Completed [facility] Fluzone Fluzone Unknown Completed [facility] Pneumovax (PPSV23) Pneumovax (PPSV23) Unknown Completed [facility] COVID-19 Vaccine (Nato) COVID-19 Vaccine (Nato) Unknown Completed [facility] FluAD FluAD Unknown Completed [facility] Fluzone Fluzone Unknown Completed [facility] Pneumovax (PPSV23) Pneumovax (PPSV23) Unknown Completed [facility] Influenza Influenza Unknown Completed [facility] COVID-19 Vaccine (Nato) COVID-19 Vaccine (Nato) Unknown Completed [facility] FluAD FluAD Unknown Completed [facility] Fluzone Fluzone Unknown Completed [facility] Pneumovax (PPSV23) Pneumovax (PPSV23) Unknown Completed [facility] Influenza Influenza Unknown Completed [facility] COVID-19 Vaccine (Nato) COVID-19 Vaccine (Nato) Unknown Completed [facility] FluAD FluAD Unknown Completed [facility] Fluzone Fluzone Unknown Completed [facility] Pneumovax (PPSV23) Pneumovax (PPSV23) Unknown Completed [facility] Influenza Influenza Unknown Completed [facility] COVID-19 Vaccine (Nato) COVID-19 Vaccine (Nato) Unknown Completed [facility] FluAD FluAD Unknown Completed [facility] Fluzone Fluzone Unknown Completed [facility] Pneumovax (PPSV23) Pneumovax (PPSV23) Unknown Completed [facility] Influenza Influenza Unknown Completed [facility] COVID-19 Vaccine (Nato) COVID-19 Vaccine (Nato) Unknown Completed [facility] FluAD FluAD Unknown Completed [facility] Fluzone Fluzone Unknown Completed [facility] Pneumovax (PPSV23) Pneumovax (PPSV23) Unknown Completed [facility] Influenza Influenza Unknown Completed [facility] COVID-19 Vaccine (Nato) COVID-19 Vaccine (Nato) Unknown Completed [facility] FluAD FluAD Unknown Completed [facility] Fluzone Fluzone Unknown Completed [facility] Pneumovax (PPSV23) Pneumovax (PPSV23) Unknown Completed [facility] Influenza Influenza Unknown Completed [facility] COVID-19 Vaccine (Nato) COVID-19 Vaccine (Nato) Unknown Completed [facility] FluAD FluAD Unknown Completed [facility] Fluzone Fluzone Unknown Completed [facility] Pneumovax (PPSV23) Pneumovax (PPSV23) Unknown Completed [facility] Influenza Influenza Unknown Completed [facility] COVID-19 Vaccine (Nato) COVID-19 Vaccine (Nato) Unknown Completed [facility] FluAD FluAD Unknown Completed [facility] Fluzone Fluzone Unknown Completed [facility] Pneumovax (PPSV23) Pneumovax (PPSV23) Unknown Completed [facility] Influenza Influenza Unknown Completed [facility] COVID-19 Vaccine (Nato) COVID-19 Vaccine (Nato) Unknown Completed [facility] FluAD FluAD Unknown Completed [facility] Fluzone Fluzone Unknown Completed [facility] Pneumovax (PPSV23) Pneumovax (PPSV23) Unknown Completed [facility] Influenza Influenza Unknown Completed [facility] Vital Signs Vital Name Observation Time Observation Value Comments S piedadce height 2023-06-17 15:30:00 60 [in_i] Commo n [facility] weight 2023-06-17 15:30:00 132.0 [lb_av] Co mmon [facility] temperature 2023-06-17 15:30:00 97.7 [degF] Com mon [facility] bmi 2023-06-17 15:30:00 25.78 kg/m2 Comm on [facility] oximetry 2023-06-17 15:30:00 99 % Commo n [facility] respiratory rate 2023-06-17 15:30:00 18 /min Common [facility] blood pressure systolic 2023-06-17 15:30:00 115 mm[Hg] [facility] blood pressure diastolic 2023-06-17 15:30:00 65 mm[Hg] [facility] height 2023-02-19 10:00:00 60 [in_i] Commo n [facility] weight 2023-02-19 10:00:00 117.4 [lb_av] Co mmon [facility] temperature 2023-02-19 10:00:00 98.0 [degF] Com [facility] bmi 2023-02-19 10:00:00 22.93 kg/m2 Comm on [facility] oximetry 2023-02-19 10:00:00 98 % Commo n [facility] respiratory rate 2023-02-19 10:00:00 16 /min [facility] blood pressure systolic 2023-02-19 10:00:00 124 mm[Hg] [facility] blood pressure diastolic 2023-02-19 10:00:00 62 mm[Hg] [facility] height 2022-09-18 10:10:00 60 [in_i] Commo n [facility] weight 2022-09-18 10:10:00 112 [lb_av] Comm on [facility] temperature 2022-09-18 10:10:00 97.6 [degF] Com [facility] bmi 2022-09-18 10:10:00 21.87 kg/m2 Comm on [facility] oximetry 2022-09-18 10:10:00 99 % Commo n [facility] respiratory rate 2022-09-18 10:10:00 16 /min Common [facility] blood pressure systolic 2022-09-18 10:10:00 110 mm[Hg] [facility] blood pressure diastolic 2022-09-18 10:10:00 77 mm[Hg] [facility] height 2022-09-18 10:10:00 60 [in_i] Commo n [facility] weight 2022-09-18 10:10:00 112 [lb_av] Comm on [facility] temperature 2022-09-18 10:10:00 97.6 [degF] Com mon [facility] bmi 2022-09-18 10:10:00 21.87 kg/m2 Comm on [facility] oximetry 2022-09-18 10:10:00 99 % Commo n [facility] respiratory rate 2022-09-18 10:10:00 16 /min Common [facility] blood pressure systolic 2022-09-18 10:10:00 110 mm[Hg] [facility] blood pressure diastolic 2022-09-18 10:10:00 77 mm[Hg] Common [facility] respiratory rate 2022-06-25 10:30:00 17 /min Common [facility] blood pressure systolic 2022-06-25 10:30:00 126 mm[Hg] [facility] blood pressure diastolic 2022-06-25 10:30:00 65 mm[Hg] [facility] height 2022-06-25 10:30:00 60 [in_i] Commo n [facility] weight 2022-06-25 10:30:00 115 [lb_av] Comm on [facility] temperature 2022-06-25 10:30:00 96.4 [degF] Com mon [facility] bmi 2022-06-25 10:30:00 22.46 kg/m2 Comm on [facility] oximetry 2022-06-25 10:30:00 95 % Commo n [facility] height 2021-12-26 10:10:00 60 [in_i] Commo n [facility] weight 2021-12-26 10:10:00 119 [lb_av] Comm on [facility] temperature 2021-12-26 10:10:00 97.5 [degF] Com mon [facility] bmi 2021-12-26 10:10:00 23.24 kg/m2 Comm on [facility] oximetry 2021-12-26 10:10:00 90 % Commo n [facility] respiratory rate 2021-12-26 10:10:00 16 /min [facility] blood pressure systolic 2021-12-26 10:10:00 111 mm[Hg] Common [facility] blood pressure diastolic 2021-12-26 10:10:00 71 mm[Hg] Common [facility] height 2021-09-19 14:30:00 61 [in_i] Commo n [facility] weight 2021-09-19 14:30:00 125.6 [lb_av] Co mmon [facility] temperature 2021-09-19 14:30:00 97.3 [degF] Com mon [facility] bmi 2021-09-19 14:30:00 23.73 kg/m2 Comm on [facility] oximetry 2021-09-19 14:30:00 96 % Commo n [facility] respiratory rate 2021-09-19 14:30:00 17 /min [facility] blood pressure systolic 2021-09-19 14:30:00 117 mm[Hg] [facility] blood pressure diastolic 2021-09-19 14:30:00 81 mm[Hg] Common [facility] height 2021-09-19 14:30:00 61 [in_i] Commo n [facility] weight 2021-09-19 14:30:00 125.6 [lb_av] Co [facility] temperature 2021-09-19 14:30:00 97.3 [degF] Com [facility] bmi 2021-09-19 14:30:00 23.73 kg/m2 Comm on [facility] oximetry 2021-09-19 14:30:00 96 % Commo n [facility] respiratory rate 2021-09-19 14:30:00 17 /min [facility] blood pressure systolic 2021-09-19 14:30:00 117 mm[Hg] Common [facility] blood pressure diastolic 2021-09-19 14:30:00 81 mm[Hg] Common [facility] height 2021-06-26 09:50:00 61 [in_i] Commo n [facility] weight 2021-06-26 09:50:00 134.9 [lb_av] Co [facility] temperature 2021-06-26 09:50:00 97.0 [degF] Com [facility] bmi 2021-06-26 09:50:00 25.49 kg/m2 Comm on [facility] oximetry 2021-06-26 09:50:00 93 % Commo n [facility] respiratory rate 2021-06-26 09:50:00 17 /min Common [facility] blood pressure systolic 2021-06-26 09:50:00 132 mm[Hg] [facility] blood pressure diastolic 2021-06-26 09:50:00 65 mm[Hg] Common [facility] height 2021-03-27 10:00:00 61 [in_i] Commo n [facility] weight 2021-03-27 10:00:00 136.3 [lb_av] Co mmon [facility] temperature 2021-03-27 10:00:00 97.3 [degF] Com mon [facility] bmi 2021-03-27 10:00:00 25.75 kg/m2 Comm on [facility] oximetry 2021-03-27 10:00:00 93 % Commo n [facility] respiratory rate 2021-03-27 10:00:00 17 /min [facility] blood pressure systolic 2021-03-27 10:00:00 114 mm[Hg] [facility] blood pressure diastolic 2021-03-27 10:00:00 78 mm[Hg] [facility] Procedures Procedure Date / Time Performed Performing Clinicia n Source [id number] 2019-05-05 00:00:00 [facility] [id number] 2019-05-05 00:00:00 [facility] Encounters Start Date/Time End Date/Time Encounter Type Admission Type Attending Clinicians Care Facility Care Department Encounter ID Source 2023-02-19 10:08:00 Outpatient Alaniz, [facility] [id number] [facility] 2021-09-13 10:23:02 Outpatient Alaniz, [facility] STLC STLC [id number] [facility] 2021-05-10 14:23:26 Outpatient Alaniz, [facility] STLC STLC [id number] [facility] 2021-05-10 14:18:25 Outpatient Alaniz, Jeremi STLC STLC [id number] [facility] 2021-05-10 12:07:25 [facility]iz[facility] [id number] [facility] 2021-05-10 11:22:27 Outpatient Alaniz, [facility] ST[facility] [id number] [facility] 2021-05-10 11:15:02 Outpatient STLMLC STLMLC [id number] [facility] 2019-05-05 10:30:00 Inpatient Rohith Khan [facility] [id number] [facility] 2023-06-17 00:00:00 2023-06-17 00:00:00 (HOSP F/U) Hospital Follow Up STLMLC STLMLC [id number] [facility] 2023-06-13 00:00:00 2023-06-13 00:00:00 (TEL) STLMLC STLMLC [id number] [facility] 2023-03-19 00:00:00 2023-03-19 00:00:00 (TEL) STLMLC STLMLC [id number] [facility] 2023-02-19 00:00:00 2023-02-19 00:00:00 OFFICE VISIT ESTAB PT LEVEL 4 STLMLC STLMLC [id number] [facility] 2023-02-15 00:00:00 2023-02-15 00:00:00 (TEL) STLMLC STLMLC [id number] [facility] 2023-02-06 00:00:00 2023-02-06 00:00:00 (TEL) STLMLC STLMLC [id number] [facility] 2023-02-06 00:00:00 2023-02-06 00:00:00 (TEL) STLMLC STLMLC [id number] [facility] 2022-09-18 00:00:00 2022-09-18 00:00:00 OFFICE VISIT ESTAB PT LEVEL 4 STLMLC STLMLC [id number] [facility] 2022-09-18 00:00:00 2022-09-18 00:00:00 SUB ANNUAL [facility] VISIT STLMLC STLMLC [id number] [facility] 2022-06-25 00:00:00 2022-06-25 00:00:00 OFFICE VISIT ESTAB PT LEVEL 4 STLMLC STLMLC [id number] [facility] 2022-03-14 00:00:00 2022-03-14 00:00:00 (TEL) STLMLC STLMLC [id number] [facility] 2022-01-22 00:00:00 2022-01-22 00:00:00 (TEL) STLMLC STLMLC [id number] [facility] 2021-12-26 00:00:00 2021-12-26 00:00:00 OFFICE VISIT ESTAB PT LEVEL 4 STLMLC STLMLC [id number] [facility] 2021-09-19 00:00:00 2021-09-19 00:00:00 OFFICE VISIT ESTAB PT LEVEL 4 STLMLC STLMLC [id number] [facility] 2021-09-19 00:00:00 2021-09-19 00:00:00 SUB ANNUAL [facility] VISIT STLMLC STLMLC [id number] [facility] 2021-09-19 00:00:00 2021-09-19 00:00:00 (TEL) STLMLC STLMLC [id number] [facility] 2021-08-29 00:00:00 2021-08-29 00:00:00 (TEL) STLMLC STLMLC [id number] [facility] 2021-06-26 00:00:00 2021-06-26 00:00:00 OFFICE VISIT ESTAB PT LEVEL 4 STLMLC STLMLC [id number] [facility] 2021-03-27 00:00:00 2021-03-27 00:00:00 OFFICE VISIT ESTAB PT LEVEL 4 STLMLC STLMLC [id number] [facility] 2021-03-13 00:00:00 2021-03-13 00:00:00 (TEL) STLMLC STLMLC [id number] [facility] 2021-03-06 00:00:00 2021-03-06 00:00:00 (TEL) STLMLC STLMLC [id number] [facility] 2021-02-10 00:00:00 2021-02-10 00:00:00 (TEL) STLMLC STLMLC [id number] [facility] 2020-12-23 00:00:00 2020-12-23 00:00:00 Outpatient STLMLC STLMLC [id number] [facility] 2020-11-24 00:00:00 2020-11-24 00:00:00 Outpatient STLMLC STLMLC [id number] [facility] 2020-09-29 00:00:00 2020-09-29 00:00:00 Outpatient STLMLC STLMLC [id number] [facility] 2020-09-27 00:00:00 2020-09-27 00:00:00 Outpatient STLMLC STLMLC [id number] [facility] 2020-09-26 00:00:00 2020-09-26 00:00:00 Outpatient STLMLC STLMLC [id number] [facility] 2020-09-26 00:00:00 2020-09-26 00:00:00 Outpatient STLMLC STLMLC [id number] [facility] 2020-09-19 00:00:00 2020-09-19 00:00:00 Outpatient STLMLC STLMLC [id number] [facility] 2020-07-02 11:05:00 2020-07-02 11:05:00 Outpatient [facility] [id number] [facility] 2020-06-11 11:30:00 2020-06-11 11:30:00 Outpatient [facility] [id number] [facility] 2020-04-05 00:00:00 2020-04-05 00:00:00 Outpatient STLMLC STLMLC [id number] [facility] 2020-03-08 00:00:00 2020-03-08 00:00:00 Outpatient STLMLC STLMLC [id number] [facility] 2020-03-08 00:00:00 2020-03-08 00:00:00 [facility] [id number] [facility] 2019-12-03 09:15:00 2019-12-03 09:15:00 [facility] [place] [facility] [id number] [facility] 2019-11-19 15:09:00 2019-11-19 15:09:00 [facility] [place] [facility] [id number] [facility] 2019-09-03 11:00:00 2019-09-03 11:00:00 Outpatient [facility] [place] [facility] [id number] [facility] 2019-09-03 10:45:00 2019-09-03 10:45:00 Outpatient [facility] [place] [facility] [id number] [facility] 2019-07-23 09:24:00 2019-07-23 09:24:00 [facility] [place] [facility] [id number] [facility] 2019-07-11 13:05:00 2019-07-11 13:05:00 [facility] [id number] [facility] 2019-06-30 14:15:00 2019-06-30 14:15:00 [facility] [id number] [facility] Results Test Description Test Time Test Comments Results Result Co mments Source TSH REFLEX TO FREE [id number] 00:00:00* Test Item Value Reference Range Interpretation Comme nts TSH REFLEX TO FREE T4 (test code = 64585-7) 2.580 UIU/ML See_Comment [Automated [employer] Systemsa ge] The system which generated this result transmitted reference range: 0.400-4.100 UIU/ML. The reference range was not used to interpret this result as normal/abnormal. VITAMIN D, 25 [id number] 00:00:00* Test Item Value Reference Range Interpretation Comme nts VITAMIN D, 25 OH (test code = 1988-3) 50 NG/ML SEE BELOW NG/ML LIPID PANEL WITH REFLEX DIRECT [id number] 00:00:00* Test Item Value Reference Range Interpretation Comme nts CALC LDL CHOL (test code = 91147-3) 59 MG/DL See_Comment [Automated messa ge] The [...] normal/abnormal. RISK RATIO LDL/HDL (test code = 35661-4) 0.87 RATIO See_Comment [Automated message] The system [...] interpret this result as normal/abnormal. PATHOLOGIST SMEAR [id number] 00:00:00* Test Item Value Reference Range Interpretation Comme nts BASOPHILS (test code = 76681-5) 0.0 % DIAGNOSIS: (test code = 39220-2) (NOTE) COMMENTS (test code = 31569-4) (NOTE) EOSINOPHILS (test code = 27703-2) 3.3 % HEMATOCRIT (test code = 28920-4) 42.7 % See_Comment [Automated messa ge] The [...] result as normal/abnormal. LYMPHOCYTES (test code = 50668-2) 20.8 % MCH (test code = 99948-4) 33.9 PG See_Comment H [Automated messa ge] The system which generated this result transmitted reference range: 25.0-33.0 PG. The reference range was not used to interpret this result as normal/abnormal. MCHC (test code = 26084-2) 33.0 G/DL See_Comment [Automated messa ge] The system which generated this result transmitted reference range: 31.0-36.0 G/DL. The reference range was not used to interpret this result as normal/abnormal. MCV (test code = 29606-6) 102.6 fL See_Comment H [Automated messa ge] The system which generated this result transmitted reference range: 80.0-99.0 fL. The reference range was not used to interpret this result as normal/abnormal. MICROSCOPIC DESCRIPTION: (test code = 27401-5) (NOTE) MONOCYTES (test code = 44167-9) 13.3 % NEUTROPHILS (test code = 28516-2) 62.6 % NUCLEATED RBCS (test code = 18458-0) 0.8 /100 WBC'S See_Comment H [Automated messa ge] The system which generated this result transmitted reference range: 0.0 /100 WBC'S. The reference range was not used to interpret this result as normal/abnormal. PATHOLOGIST: (test code = 64518-7) (NOTE) PLATELET COUNT (test code = 29022-9) 316 K/UL See_Comment [Automated messa ge] The system which generated this result transmitted reference range: 130-400 K/UL. The reference range was not used to interpret this result as normal/abnormal. RBC (test code = 72070-6) 4.16 M/UL See_Comment [Automated messa ge] The system which generated this result transmitted reference range: 3.80-5.40 M/UL. The reference range was not used to interpret this result as normal/abnormal. RDW (test code = 90088-3) 12.8 % See_Comment [Automated messa ge] The system which generated this result transmitted reference range: 11.5-15.0 %. The reference range was not used to interpret this result as normal/abnormal. WBC (test code = 67419-1) 4.3 K/UL See_Comment [Automated messa ge] The system which generated this result transmitted reference range: 3.5-11.0 K/UL. The reference range was not used to interpret this result as normal/abnormal. COMPREHENSIVE METABOLIC [id number] 00:00:00* Test Item Value Reference Range Interpretation [...] result as normal/abnormal. CALCIUM (test code = 08615-7) 10.0 MG/DL See_Comment [Automated messa ge] The [...] as normal/abnormal. CALC GLOBULIN (test code = 03990-3) 3.6 G/DL See_Comment [Automated messa ge] The system which generated this result transmitted reference range: 1.9-3.7 G/DL. The reference range was not used to interpret this result as normal/abnormal. CARBON DIOXIDE (test code = 1963-8) 28 MEQ/L See_Comment [Automated messa ge] The system which generated this result transmitted reference range: 19-31 MEQ/L. The reference range was not used to interpret this result as normal/abnormal. CHLORIDE (test code = 2075-0) 98 MEQ/L See_Comment [Automated messa ge] The [...] normal/abnormal. eGFR (2020 CKD-EPI) (test code = 98332-1) 61 ML/MIN/1.73 See_Comment [Automated messa ge] The [...] used to interpret this result as normal/abnormal. [id number] 00:00:00* Test Item Value Reference Range Interpretation [facility] FERRITIN (test code = 15781-7) 53 NG/ML See_Comment [Automated messa ge] The system which generated this result transmitted reference range: 13-200 NG/ML. The reference range was not used to interpret this result as normal/abnormal. HEMOGLOBIN [id number] 00:00:00* Test Item Value Reference Range Interpretation [facility] HEMOGLOBIN A1c (test code = 4548-4) 5.8 % See_Comment H [Automated messa ge] The system which generated this result transmitted reference range: 4.2-5.6 %. The reference range was not used to interpret this result as normal/abnormal. TSH REFLEX TO FREE [id number] 00:00:00* Test Item Value Reference Range Interpretation [facility] TSH REFLEX TO FREE T4 (test code = 94179-9) 1.810 UIU/ML See_Comment [Automated messa ge] The system which generated this result transmitted reference range: 0.400-4.100 UIU/ML. The reference range was not used to interpret this result as normal/abnormal. LIPID PANEL WITH REFLEX DIRECT [id number] 00:00:00* Test Item Value Reference Range Interpretation [facility] CALC LDL CHOL (test code = 57936-5) 66 MG/DL See_Comment [Automated messa ge] The [...] code = 2085-9) 75 MG/DL See_Comment [Automated [employer] Systemsa ge] The system which generated this result transmitted reference range: >39 MG/DL. The reference range was not used to interpret this result as normal/abnormal. RISK RATIO LDL/HDL (test code = 51953-5) 0.88 RATIO See_Comment [Automated message] The system which generated this result transmitted reference range: <3.22 RATIO. The reference range was not used to interpret this result as normal/abnormal. TRIGLYCERIDES (test code = 2571-8) 80 MG/DL See_Comment [Automated [employer] Systemsa [place]] The system which generated this result transmitted reference range: <150 MG/DL. The reference range was not used to interpret this result as normal/abnormal. PATHOLOGIST SMEAR [id number] 00:00:00* Test Item Value Reference Range Interpretation Comme nts BASOPHILS (test code = 06991-5) 0.8 % DIAGNOSIS: (test code = 59633-4) (NOTE) COMMENTS (test code = 97988-1) (NOTE) EOSINOPHILS (test code = 33213-1) 1.9 % HEMATOCRIT (test code = 14855-1) 38.2 % See_Comment [Automated [employer] Systemsa [place]] The system which generated this result transmitted reference range: 34.0-45.0 %. The reference range was not used to interpret this result as normal/abnormal. HEMOGLOBIN (test code = 718-7) 12.4 G/DL See_Comment [Automated [employer] Systemsa ge] The system which generated this result transmitted reference range: 11.5-15.5 G/DL. The reference range was not used to interpret this result as normal/abnormal. LYMPHOCYTES (test code = 82817-5) 15.3 % MCH (test code = 28875-7) 32.6 PG See_Comment [Automated [employer]sa [place]] The system which generated this result transmitted reference range: 25.0-33.0 PG. The reference range was not used to interpret this result as normal/abnormal. MCHC (test code = 42860-8) 32.5 G/DL See_Comment [Automated [employer] Systemsa [place]] The system which generated this result transmitted reference range: 31.0-36.0 G/DL. The reference range was not used to interpret this result as normal/abnormal. MCV (test code = 47535-4) 100.5 fL See_Comment H [Automated messa ge] The system which generated this result transmitted reference range: 80.0-99.0 fL. The reference range was not used to interpret this result as normal/abnormal. MICROSCOPIC DESCRIPTION: (test code = 66503-3) (NOTE) MONOCYTES (test code = 15207-9) 12.9 % NEUTROPHILS (test code = 66644-2) 68.9 % NUCLEATED RBCS (test code = 19307-0) 0.0 /100 WBC'S See_Comment [Automated messa ge] The system which generated this result transmitted reference range: 0.0 /100 WBC'S. The reference range was not used to interpret this result as normal/abnormal. PATHOLOGIST: (test code = 35176-5) (NOTE) PLATELET COUNT (test code = 93836-2) 263 K/UL See_Comment [Automated messa ge] The system which generated this result transmitted reference range: 130-400 K/UL. The reference range was not used to interpret this result as normal/abnormal. RBC (test code = 24457-1) 3.80 M/UL See_Comment [Automated messa ge] The system which generated this result transmitted reference range: 3.80-5.40 M/UL. The reference range was not used to interpret this result as normal/abnormal. RDW (test code = 58248-0) 15.3 % See_Comment H [Automated messa ge] The system which generated this result transmitted reference range: 11.5-15.0 %. The reference range was not used to interpret this result as normal/abnormal. WBC (test code = 52423-9) 4.7 K/UL See_Comment [Automated messa ge] The system which generated this result transmitted reference range: 3.5-11.0 K/UL. The reference range was not used to interpret this result as normal/abnormal. IRON BINDING CAPACITY AND IRON AND % [id number] 00:00:00* Test Item Value Reference Range Interpretation Comme nts CALC % IRON SAT (test code = 2502-3) 31 % See_Comment [Automated messa ge] The system which generated this result transmitted reference range: 20-50 %. The reference range was not used to interpret this result as normal/abnormal. CALC TOTAL IBC (test code = 98499-8) 314 UG/DL See_Comment [Automated messa ge] The [...] interpret this result as normal/abnormal. COMPREHENSIVE METABOLIC [id number] 00:00:00* Test Item Value Reference Range Interpretation [...] result as normal/abnormal. CALCIUM (test code = 11165-7) 10.9 MG/DL See_Comment H [Automated messa ge] [...] as normal/abnormal. CALC GLOBULIN (test code = 85004-7) 3.0 G/DL See_Comment [Automated messa ge] The [...] normal/abnormal. eGFR (2020 CKD-EPI) (test code = 23564-9) 59 ML/MIN/1.73 See_Comment L [Automated messa ge] [...] used to interpret this result as normal/abnormal. ARTERY,[id number] 10:05:00 RUN DATE: 05/07/19 [facility] PAGE 1 RUN TIME: 1005 Specimen Inquiry RUN USER: INTERFACE YFN Nicole: RACHEAL SABILLON LOC: ENA U #: [id number] AGE/SX: 73/F [facility] RE05[facility]REG DR:Rohith Kc MD : 47 BED: A DIS: STATUS: ADM IN TLOC: SPEC #: [id number]:LOPEZ:[id number] RECD: 05/05/19TATUS: DIEGO REQ #: [id number] GUS: 05/05/[address]: Rohith Kc MD ENTERED: 05/05/19 SP TYPE: ARTERY, PL OTHR DR: Jose Marc MD, Nioti R MD Pepper, Gregory S MDORDERED: DECAL, SURG PATH LVL 3, SURG PATH LVL 4 CODES: B92704 - PLAQUE, NOS W46646 - ARTERY, NOS Q86484 Z73631 - CAROTID ARTERY ATHEROSCLEROSIS W88058 [id number] - CERVIX EXCISIONAL BIOP JM2023 - LYMPH NODE, NOS COPIES TO: Jose Marc MD [address] [place] [address] [address] [place] [address] [email or web address] [address] [place] [address] [place] [address] [facility] [address] [place] [address] [place] [address] [facility] [address] [place] [id number] ICD CODES: 440 - PROCEDURES: DECAL (05/06/19-09) SURG PATH LVL 3 (05/05/19-1612) SURG PATH LVL 4 (05/06/19-1325) TISSUES: A. ARTERY, NOS - LT CAROTID PLAQUE B. LYMPH NODE,NOS - LT CERVICAL LYMPH NODE CONTINUED ON NEXT PAGE RUN DATE: 05/07/19 [facility] PAGE 2 RUN TIME: 1005 Specimen Inquiry RUN USER: INTERFACE SPEC #: [id number]:[id number] PATIENT: RACHEAL SABILLON #[id number] (Contin ued) CLINICAL HISTORY LEFT INTERNAL CAROTID ARTERY STENOSIS CPT CODES CPT CODE(S): 82443 , 18472 , 43167 ,, , , FINAL DIAGNOSIS A. Plaque, [...] 05/07/19 1005 END OF REPORT BASIC METABOLIC [id number] 04:51:00* Test Item Value Reference Range Interpretation [...] CA) 9.6 MG/DL 8.4-10.2 N BASIC METABOLIC [id number] 04:40:00* Test Item Value Reference Range Interpretation [...] code = CA) MG/DL 8.7-9.7 BASIC METABOLIC [id number] 04:38:00* Test Item Value Reference Range Interpretation [...] code = CA) MG/DL 8.7-9.7 BASIC METABOLIC [id number] 04:37:00* Test Item Value Reference Range Interpretation [...] code = CA) MG/DL 8.7-9.7 CBC W/AUTO [id number] 04:18:00* Test Item Value Reference Range Interpretation [...] 0.00 K/mm3 0.0-0.1 N - XR CHEST [id number] 09:05:00Patient Name: RACHEAL SABILLON Unit No: [id number] EXAMS: CPT CODE: [id number] XR CHEST 1V 63525Ancw ID: [id number] HISTORY: Postoperative, left ICA stenosis [...] Lety Vazquez RT(R) Transcrpt Date/Tm/Trnsp: 05/06/2019 (904) [id number].[id number] Orig Print D/T: S: 05/06/2019 (0908) [facility] NAME: RACHEAL SABILLON [address] [place] PHYS: [place] [address] : 1945 AGE: 73 SEX: F : Z.SI04 A PHONE #: [phone] EXAM DATE: 05/06/2019 STATUS: ADM IN FAX #: [phone] RADIOLOGY NO: PAGE 1 Signed ReportBASIC METABOLIC [id number] 06:09:00* Test Item Value Reference Range Interpretation [...] code = CA) 9.4 MG/DL 8.4-10.2 N [id number] 06:09:00* Test Item Value Reference Range Interpretation Comme nts MAGNESIUM (test code = MAG) 1.5 MG/DL 1.6-2.3 L BASIC METABOLIC [id number] 05:59:00* Test Item Value Reference Range Interpretation [...] CALCIUM (test code = CA) MG/DL 8.7-9.7 [id number] 05:59:00* Test Item Value Reference Range Interpretation Comme nts MAGNESIUM (test code = MAG) MG/DL 1.6-2.3 CBC W/AUTO [id number] 05:46:00* Test Item Value Reference Range Interpretation [...] NRBC#) 0.00 K/mm3 0.0-0.1 N BASIC METABOLIC [id number] 13:49:00* Test Item Value Reference Range Interpretation Comme nts SODIUM (test code = NA) 136 MMOL/L 137-145 L POTASSIUM (test code = K) 2.9 MMOL/L 3.5-5.1 L CALLED TO Mingyian A.V& READBACK ON 05/05/19 AT 1348 BY [...] code = CA) 9.7 MG/DL 8.4-10.2 N [id number] 13:49:00* Test Item Value Reference Range Interpretation Comme nts MAGNESIUM (test code = MAG) 1.4 MG/DL 1.6-2.3 L BASIC METABOLIC [id number] 13:48:00* Test Item Value Reference Range Interpretation Comme nts SODIUM (test code = NA) 136 MMOL/L 137-145 L POTASSIUM (test code = K) 2.9 MMOL/L 3.5-5.1 L CALLED TO Mingyian A.V& READBACK ON 05/05/19 AT 1348 BY [...] code = CA) 9.7 MG/DL 8.4-10.2 N [id number] 13:48:00* Test Item Value Reference Range Interpretation Comme nts MAGNESIUM (test code = MAG) MG/DL 1.6-2.3 - XR CHEST [id number] 13:35:00Patient Name: RACHEAL SABILLON Unit No: [id number] EXAMS: CPT CODE: [id number] XR CHEST 1V [id number] of dictation: B2 Portable chest one view. HISTORY: post op COMMENT: Compared to 05/04/2019. Patient has undergone left carotid endarterectomy with drain in place. A right subclavian central line overlies the SVC. The heart is slightly enlarged but stable. There are abnormal opacities in theright lower lobe likely atelectasis. No pneumothorax or effusion is seen. The chest wall is intact. IMPRESSION: 1. Status post left carotid endarterectomy. 2. Right lower lobe atelectasis. at 1335 Reported and signed by: Larissa Balderas M.D.CC: Jose Marc MD Technologist: [facility] STUDENT ; Alhaji Cha, RT(R) Transcrpt Date/Tm/Trnsp: 05/05/2019 (4701) t.SDR.PXC Orig Print D/T: S: 05/05/2019 (7374) [facility] NAME: RACHEAL SABILLON [id number] [place] PHYS: [place] [address] : 1945 AGE: 73 SEX: F LOC: Z.SI04 A PHONE #: [phone] EXAM DATE: 05/05/2019 STATUS: ADM IN FAX #: [phone] RADIOLOGY NO: PAGE 1 Signed Report CBC W/AUTO [id number] 13:20:00* Test Item Value Reference Range Interpretation [...] NRBC#) 0.00 K/mm3 0.0-0.1 N ARTERIAL BLOOD [id number] 13:17:00* Test Item Value Reference Range Interpretation [...] (test code = COHBGFFIO2) 60 % PROTHROMBIN [id number] 13:06:00* Test Item Value Reference Range Interpretation [...] recurrent systemic embolism. 3.0 - 4.5 PTT [id number] 13:06:00* Test Item Value Reference Range Interpretation Comme nts PTT ACTIVATED (test code = APTT) 30.4 SECONDS 22.0-33.0 N HIV 12 AB [id number] 13:02:00* Test Item Value Reference Range Interpretation Comme [facility] HIV 1 2 COMBO AG/AB SCREEN (test code = [id number]) AB/AG NON REACTIVE NONREACTIVE CBC W/AUTO NTAR6599-16-70 12:51:00* Test Item Value Reference Range Interpretation [...] NRBC#) 0.00 K/mm3 0.0-0.1 N BASIC METABOLIC YVBCL8618-05-01 12:21:00* Test Item Value Reference Range Interpretation [...] CA) 9.9 MG/DL 8.4-10.2 N BASIC METABOLIC ZVWZX8416-90-91 12:20:00* Test Item Value Reference Range Interpretation [...] code = CA) MG/DL 8.7-9.7 BASIC METABOLIC DSBSX2603-67-84 12:18:00* Test Item Value Reference Range Interpretation [...] code = CA) MG/DL 8.7-9.7 BASIC METABOLIC RFUTQ1103-80-67 12:17:00* Test Item Value Reference Range Interpretation [...] CA) MG/DL 8.7-9.7 - XR CHEST 2 [id number] 11:39:00Patient Name: RACHEAL SABILLON Unit No: [id number] EXAMS: CPT CODE: [id number] XR CHEST 2 V 07427 LOCATION: T18 EXAM: CHEST 2 VIEWS INDICATION: [...] 05/04/2019 (1139) t.MARISOLR.JP19 Orig Print D/T: S: 05/04/2019(1142) [facility] NAME: RACHEAL SABILLON [address] PHYS: [place] [address] : 1945 AGE: 73 SEX: F LOC: SIMONE PHONE #: [phone] EXAM DATE: 05/04/2019 STATUS: PRE [facility] [place] #: [phone] RADIOLOGY NO: PAGE 1 Signed ReportBASIC METABOLIC [id number] 05:09:00* Test Item Value Reference Range Interpretation [...] code = CA) 9.0 MG/DL 8.4-10.2 N GCKPAOMBI2713-46-31 05:09:00* Test Item Value Reference Range Interpretation Comme nts MAGNESIUM (test code = MAG) 1.8 MG/DL 1.6-2.3 N CBC W/AUTO FWQL0167-72-33 04:46:00* Test Item Value Reference Range Interpretation [...] NRBC#) 0.00 K/mm3 0.0-0.1 N BASIC METABOLIC MFQHB6127-77-40 06:03:00* Test Item Value Reference Range Interpretation [...] code = CA) 8.7 MG/DL 8.4-10.2 N CJKDKZPFS7776-29-35 06:03:00* Test Item Value Reference Range Interpretation Comme nts MAGNESIUM (test code = MAG) 2.1 MG/DL 1.6-2.3 N CBC W/AUTO PXIU5033-50-87 05:32:00* Test Item Value Reference Range Interpretation [...] NRBC#) 0.00 K/mm3 0.0-0.1 N ARTERIAL BLOOD INV5843-87-67 12:23:00* Test Item Value Reference Range Interpretation [...] jus result: FT/NC Edited by: MOON on 10/01/18:423184 1222: DELIVERY previously reported as: FT/NC ABG TEMPERATURE (test code = TEMPA) 37.0 C >37 ABG SITE (test code = SITEA) AL ALLENS TEST (test code = ALLENS) NA CHECK FIO2 (test code = COHBGFFIO2) 40 % ARTERY,UPZUSO3294-26-74 11:58:00 RUN DATE: 10/01/18 [place] - LAB PAGE 1 RUN TIME: 1158 Specimen Inquiry RUN USER: INTERFACE YFN T: RACHEAL SABILLON LOC: ENA U #: [id number] AGE/SX: 72/F ROOM: [facility] RE09/30/18[facility] DR:Rohith Kc MD : 47 BED: A DIS: STATUS: ADM IN TLOC: SPEC #: [id number]:[id number] RECD: 09/30/18STATUS: DIEGO REQ #: [id number] GUS: 09/30/[address]: Rohith Kc MD ENTERED: 09/30/18 SP TYPE: ARTERY, PL OTHR DR: Jose Marc MD, Nioti R MD Pepper, Gregory S MDORDERED: DECAL, SURG PATH LVL 3, SURG PATH LVL 4 CODES: Z93170 - PLAQUE, NOS Y61475 - ARTERY, NOS K99192 N14713 - CAROTID ARTERY ATHEROSCLEROSIS Z05255 [id number] - CERVIX EXCISIONAL BIOP QH9677 - LYMPH NODE, NOS COPIES TO: Jose Marc MD [address] [place] [address] [address] [place] [address] [email or web address] [place] [address] [place] [address] [place] [address] [facility] [address] [place] [address] [place] [address] [facility] [address] [place], [place] [address] ICD CODES: 440 - PROCEDURES: DECAL (10/01/18) SURG PATH LVL 3 (09/30/18) SURG PATH LVL 4 (09/30/18) TISSUES: A. ARTERY, NOS - RT ARTERY PLAQUE B. LYMPH NODE, NOS - RT CERVICAL LYMPH NODE CONTINUED ON NEXT PAGE RUN DATE: 10/01/18 [place] - LAB PAGE 2 RUN TIME: 1158Specimen Inquiry RUN USER: INTERFACE SPEC #: [id number]:[id number] PATIENT: RACHEAL SABILLON #[id number] ([facility] michelle) CLINICAL HISTORY RIGHT INTERNAL CAROTID ARTERY STENOSIS CPT CODES CPT CODE(S): 13616 , 26574 , 17454 ,, , , FINAL DIAGNOSIS A. Plaque, right carotid artery, endarterectomy: SEVERE ATHEROSCLEROSIS, OCCLUSIVE AND CALCIFIC B. Lymph node, right cervical, excisional biopsy: MINIMAL, NON-SPECIFIC, REACTIVECHANGE GROSS DESCRIPTION A. Right carotid plaque. Received [...] 1158 END OF REPORT - XR CHEST [id number] 07:45:00Patient Name: RACHEAL SABILLON Unit No: [id number] EXAMS: CPT CODE: [id number] XR CHEST 1V 79118 EXAMINATION: - XR CHEST 1V. LOCATION: B2. HISTORY: post op. COMPARISON: Radiograph dated 09/30/2018. T ECHNIQUE: Single AP view of the chest was obtained. FINDINGS: Left subclavian line is unchanged inposition. Right neck surgical drain is again noted. The heart is normal in size. Calcifications areseen in an ectatic thoracic aorta. Mild left basilar opacities are present. The right lung is clear. No new osseous abnormality is identified. IMPRESSION: Mild left basilar atelectasis and/or pleuralfluid. at 0745 Reported and signed by:Kayode Juarez MD CC: Jose Marc MD; Brisa GARCIA Technologist: Jeffrey High, RT(R) Transcrpt Date/Tm/Trnsp: 10/01/2018 (0745) Gilbert.PR7 Orig Print D/T: S: 10/01/2018 (0748) [facility] NAME: RACHEAL SABILLON [address] [address] PHYS: [place] [address] : 1945 AGE: 72 SEX: F LOC: Z.SI07 A PHONE #: [phone] EXAM DATE: 10/01/2018 STATUS: ADM IN FAX #: [phone] RADIOLOGY NO: PAGE 1 Signed ReportBASIC METABOLIC AXWTS1143-26-20 05:58:00* Test Item Value Reference Range Interpretation [...] code = CA) 8.7 MG/DL 8.4-10.2 N TKTYMLWJD6245-69-19 05:58:00* Test Item Value Reference Range Interpretation Comme nts MAGNESIUM (test code = MAG) 1.7 MG/DL 1.6-2.3 N CBC W/AUTO [id number] 05:30:00* Test Item Value Reference Range Interpretation [...] code = NRBC#) 0.00 K/mm3 0.0-0.1 N WQCXYOGXV2896-62-33 22:38:00* Test Item Value Reference Range Interpretation Comme nts POTASSIUM (test code = K) 3.3 MMOL/L 3.5-5.1 L PGIYVLKOF6656-55-52 22:38:00* Test Item Value Reference Range Interpretation Comme nts MAGNESIUM (test code = MAG) 1.7 MG/DL 1.6-2.3 ARTERIAL BLOOD [id number] 17:57:00* Test Item Value Reference Range Interpretation Comme nts ARTERIAL BLOOD GAS PH (test code = PHA) 7.42 mmHg 7.35-7.45 N ARTERIAL BLOOD GAS PCO2 (nahtaly t code = PCO2A) 45.2 mmHg 35.0-45.0 [...] code = COHBGFFIO2) 40 % BASIC METABOLIC [id number] 16:18:00* Test Item Value Reference Range Interpretation [...] code = CA) 8.9 MG/DL 8.4-10.2 N CHYMLICBD5735-54-36 16:18:00* Test Item Value Reference Range Interpretation Comme nts MAGNESIUM (test code = MAG) 1.3 MG/DL 1.6-2.3 L CBC W/AUTO NUDG4749-39-83 16:06:00* Test Item Value Reference Range Interpretation [...] 0.00 K/mm3 0.0-0.1 N - XR CHEST [id number] 15:29:00Patient Name: RACHEAL SABILLON Unit No: [id number] EXAMS: CPT CODE: [id number] XR CHEST 1V 65063DXOV: CHEST ONE VIEW INDICATION: Postop LOCATION: B2 [...] Jose Marc MD; Brisa GARCIA Technologist: Alhaji Cha RT(R) Transcrpt Date/Tm/Trnsp: 09/30/2018 (1529) 16 Orig Print D/T: S: 09/30/2018 (1532) [facility] NAME:RACHEAL SABILLON [address] PHYS: [place] [address] : 1945 AGE: 72 SEX: F LOC: Z.SI07 A PHONE #: [phone] EXAM DATE: 09/30/2018 STATUS: ADM IN FAX #: [phone] RADIOLOGY NO: PAGE 1 Signed ReportHIV 12 AB ZYUJFIECRSUPJBZ3450-74-53 19:14:00* Test Item Value Reference Range Interpretation Comme nts AB HIV 1 2 (test code = CKS80II) NON REACTIVE NON-REAC NOTE: A NONREACT LINETTE RESULT INDICATES THAT HIV-1 AND HIV-2ANTIBODIES HAVE NOT BEEN FOUND IN THIS PATIENT SPECIMEN. ANON-REACTIVE RESULT, HOWEVER, DOES NOT PRECLUDE PREVIOUSEXPOSURE OR INFECTION WITH HIV1. AG HIV1 P24 (test code = UYP1I81) NON REACTIVE NONE REAC PROTHROMBIN [id number] 14:22:00* Test Item Value Reference Range Interpretation [...] recurrent systemic embolism. 3.0 - 4.5 PTT EARPOXANC2273-18-58 14:22:00* Test Item Value Reference Range Interpretation Comme nts PTT ACTIVATED (test code = APTT) 29.3 SECONDS 22.0-33.0 N BASIC METABOLIC [id number] 14:18:00* Test Item Value Reference Range Interpretation [...] MG/DL 8.4-10.2 N - XR CHEST 2 I8425-04-64 14:14:00Patient Name: RACHEAL SABILLON Unit No: [id number] EXAMS: CPT CODE: [id number] XR CHEST 2 V 85195DHOI: CHEST 2 VIEWS INDICATION: PRE-OP LOCATION: B2 [...] (1414) 16 Orig Print D/T: S: 09/29/2018 (8177) [facility] NAME: RACHEAL SABILLON [address] [address] PHYS: [place] [address] : 1945 AGE: 72 SEX: F LOC: Z.3AHU PHONE #: [phone] EXAM DATE: 09/29/2018 STATUS: PRE IN FAX #: [phone] RADIOLOGY NO: PAGE 1 Signed ReportCBC W/AUTO [id number] 13:57:00* Test Item Value Reference Range Interpretation [...] NRBC#) 0.00 K/mm3 0.0-0.1 N BASIC METABOLIC CWQIL5860-64-79 06:04:00* Test Item Value Reference Range Interpretation [...] mg/dL HIGH.........160-189 mg/dL VERY HIGH.........>/= 190 mg/dL HJUIEMHSN3871-57-94 06:04:00* Test Item Value Reference Range Interpretation Comme nts MAGNESIUM (test code = MAG) 1.9 MG/DL 1.6-2.3 N PROTHROMBIN [id number] 06:00:00* Test Item Value Reference Range Interpretation [...] systemic embolism. 3.0 - 4.5 Comments to Nuclear Powerplant Supervisor: WILL BRING TO LABPTT HUDVFNQKG8323-79-34 06:00:00* Test Item Value Reference Range Interpretation Comme nts PTT ACTIVATED (test code = APTT) 29.3 SECONDS 22.0-33.0 N Comments to Nuclear Powerplant Supervisor: WILL BRING TO LABBASIC METABOLIC KJRMX3878-59-96 05:54:00* Test Item Value Reference Range Interpretation [...] LDL (test code = LDL) MG/DL 0-99 KQUYCCDTV8787-07-33 05:54:00* Test Item Value Reference Range Interpretation Comme nts MAGNESIUM (test code = MAG) 1.9 MG/DL 1.6-2.3 N CBC W/AUTO SKXK4705-83-81 05:41:00* Test Item Value Reference Range Interpretation [...] Notes Date/Time Note Provider Source 2019-06-17 23:33:00 UZotcrthyqk80762438mkpNSr2ntbAUX3lNq+tkO rYv+jvXLVaqIvIqtn 92UoWtIFdu44UEJLdbKQy5xyWk4096-06-41N49:33:340397-5595 [place] [address] PATIENT NAME: RACHEAL SABILLON ADMIT DATE: 05/05/19ACCOUNT NO: [id number] ROOM NO: [facility] AGE: 73 REPORT TYPE: DISCHARGE SUMMARY REPORT [...] 2 weeks, also to follow 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 Marc. Dictated By: RADHA Morton for Rohith Kc MD WT: DS:GERARDO/KIM/NTSDD: 06/17/2019 23:33:37DT: 06/18/2019 05:19:14Conf#: [id number]/DID#: [id number] Authenticated by RADHA Morton On 06/18/2019 11:10:13 AM Authenticated by Rohith Kc MD On 06/18/2019 11:11:39 AM at 1111 at 1111 PATIENT NAME: RACHEAL SABILLON imdqppt2162-27-90G38:19:00Z.SGS52624496-8797NYJvvubgapx for patient piusASMUMBCGKRSOAY4699-14-53K97:12:12 [facility] 2019-05-08 17:29:00 PLxbqtrsici214689092yNZx+abV7wPZHK+xWPIu 3bUPDnXepeB7AZKma JiYfqGBYL3Pv7tl/acqcVvwXuU2951-81-73Q43:29:00 [facility] ([facility]ENTERHospitalist Progress NoteREPORT#:[id number] REPORT STATUS: SignedDATE:05/08/19 TIME: 1728 PATIENT: RACHEAL SABILLON UNIT #: [id number]#: [id number] [address] AGE: 73 SEX: F ATTEND: Rohith Kc [facility] AUTHOR: David Irving MD * ALL edits [...] non-tender, normal bowel soundsExtremities: moves all, no clubbingNeuro/EDUCATIONAL AIDE: alert, no motor deficits Diagnosis, Assessment Plan [...] a little confused early this amNo chest pain1/23pt is doing well. he BP was elevatedProcardia was not startedPt is eager to go home FU Dr marc for BP controlDW family at 1731 RPT #:[id number] OF REPORTPRProgress Thuh9071-70-95B51:29:00Z.YDRO56614807-1110PLMhajohvuk for patient eutvXYJHSXDELNEVDV1378-68-39J81:31:50 [facility] 2019-05-07 06:42:00 DUwzfcivtqv47767198JJko413A7wMttzM55bvra R4Kk2HFEC7mX/2k0L mpMExeyILeWurAGqr5rNEh+gKd9686-35-68E26:42:00 [facility]Cardiology Progress NoteREPORT#:[id number] REPORT STATUS: SignedDATE:05/07/19 TIME: 06 PATIENT: RACHEAL SABILLON UNIT #: [id number]#: [id number] [address] AGE: 73 SEX: F ATTEND: Rohith Kc [facility] AUTHOR: Supa Kelly MD * ALL edits [...] Flow FiO2 Mean Ox Delivery Rate 05/07 0515 69 16 106/69 83 92 05/07 0600 [...] 05/06 1357 71 25 154/89 116 100 01/22 1330 70 20 172/86 123 99 05/06 [...] 0800 82 14 100 05/06 0749 Nasal 2.261951 cannula 05/06 0745 83 19 100 05/06 0724 99 Nasal 2.677797 28 cannula 05/06 0700 97.9 05/06 0700 [...] LE assessment: no edemaMusculoskeletal: full range of motionNeuro/EDUCATIONAL AIDE: alert, oriented X 3, CN II-XII intactSkin: [...] (Auto) (14 - 44 %) 13.3 L Warrick % (Auto) (4 - 13 %) 12.3 Eos % (Auto) (0 - 6 %) 0.2 Baso % (Auto) (0 - 2 %) 0.1 Neut # (Auto) (2.0 - 7.6 K/mm3) 8.72 H Lymph # (Auto) (1.0 - 3.8 K/mm3) 1.57 Warrick # (Auto) (0.1 - 0.8 K/mm3) 1.45 [...] cardiac stable. Ambualte IS at 1913 RPT #:[id number] OF REPORTPRProgress Nlnp7301-61-08R56:42:00Z.KVCE51940462-2566KAWkoccesme for patient guyyNHLKUNWZHTTQKU8072-42-44O84:13:48 [facility] 2019-05-06 19:18:00 UZrtyjbplco53849630ZnPmgoBWkrMDrKN4wFkZJ 2RC1F/QvgvzQ9kpaH FqT4Hjxv6SE6j6dt/UlxSzeDvA0891-65-05U86:18:00 [facility] FallsHospitalist Progress NoteREPORT#:[id number] REPORT STATUS: SignedDATE:05/06/19 TIME: 1917 PATIENT: RACHEAL SABILLON UNIT #: [id number]#: [id number] [address]BIDH: [address] AGE: 73 SEX: F ATTEND: Rohith Kc [facility] AUTHOR: David Irving MD * ALL edits [...] 0800 82 14 100 05/06 0749 Nasal 2.789220 cannula 05/06 0745 83 19 100 05/06 0724 99 Nasal 2.345986 28 cannula 05/06 0700 97.9 05/06 0700 [...] 1945 86 40 94 05/05 1940 Nasal 2.226736 cannula 05/05 1930 67 14 98 24 [...] non-tender, normal bowel soundsExtremities: moves all, no clubbingNeuro/EDUCATIONAL AIDE: alert, no motor deficits Diagnosis, Assessment Plan [...] confused early this amNo chest pain at 1921 RPT #:[id number] OF REPORTPRProgress Epnu7188-71-98W40:18:00Z.KAUW67487118-9800JZPmrdaflrs for patient exwqADQUSXDFIXSNTY9901-59-47K02:22:09 [facility] 2019-05-06 05:44:00 HRgbevtcixz01452801ntkH96c1kGFgyvdnO9wlr jiUQX5aDRD6qir5wa yyT3GXd3wsw/m/jIk3UyxJ43lH7953-66-16P20:44:096042-3007 [place] [address] PATIENT NAME: RACHEAL SABILLON ADMIT DATE: 05/05/19ACCOUNT NO: [id number] ROOM NO: Z.SI04 AGE: 73 REPORT TYPE: ELECTROCARDIOGRAM SEX: F ADMITTING PHYSICIAN:Rohith Kc MD ATTENDING PHYSICIAN:Rohith Kc MD Order:[id number] Reason : CAD Test Date/Time Stamp:SatMay 06 [...] MARC at 0653 PATIENT NAME: RACHEAL SABILLON .[id number] ble for patient grmmGOSAIRJTJWUOBL8104-79-61U71:54:02 [facility] 2019-05-06 05:34:00 DIwkcxsxiew96722435zyxm9J66azGEJmfl4Qffb YA51jVrUJXVqNMlaN NTFBm5hIfYUTu80SOpvFL90we74007-22-75I98:34:00 [facility] FallsCardiology Progress NoteREPORT#:[id number] REPORT STATUS: SignedDATE:05/06/19 TIME: 0534 PATIENT: RACHEAL SABILLON UNIT #: [id number]#: [id number] [facility]BED[facility]ATIONPG21-UBDL: 46 AGE: 73 SEX: F ATTEND: Rohith Kc [facility] AUTHOR: Supa Kelly MD * ALL edits [...] 0030 85 12 0015 85 14 0000 97.601 0000 87 20 2345 85 31 2330 80 15 2315 85 17 2300 90 28 2245 91 16 2230 82 16 2215 72 14 2200 75 14 2145 73 15 2130 76 16 2115 74 20 2100 73 12 96/ 2045 41 2029 70 14 2014 72 15 1999 97.7011999 79 20 9701/21 1945 86 40 9401/21 1940 Nasal 2.227203 sknobbp72/21 1930 67 14 9801/21 1915 73 19 9501/21 1900 76 18 9301/21 1845 7001/21 1830 89 9601/21 1815 97 Nasal 2.464536 28 zuvygvg50/21 1815 63 23 9401/21 1800 68 15 9301/21 1745 67 17 9401/21 1730 67 9401/21 1715 74 84538/21 1700 72 88202/ 1645 80 21 9301/21 1630 70 17 78947/ 1615 73 24 06068/ 1600 69 20 25434/ 1600 97.8 75 20 100 Nasal 3.304254 tvzpjze29/21 1545 71 22 23522/ 1530 69 19 57505 1515 64 70356/ 1500 70 46693 1445 70 26 10704/ 1430 66 14 40567/ 1415 71 21562/ 1400 75 63003 1358 100 Nasal 2.489930 28 hiiolyk26/21 1345 68 17 57427 1330 Aerosol 10.720078 60 mask01/21 1330 79 44648/ 1315 97.7 66 18 100 Aerosol 10.545581 60 mask01/21 1315 75 17 43634/ 1310 77 15 33699/ 1242 100 Face mist 10.894770 60 tent01/21 0550 97.1 70 18 164/101 [...] Sulfate 0 .STK-MED ONE .ROUTE (DC) Rocuronium [place] 0 .STK-MED ONE .ROUTE (DC) Calcium Chloride [...] LE assessment: no edemaMusculoskeletal: full range of motionNeuro/EDUCATIONAL AIDE: alert, oriented X 3, CN II-XII intactSkin: [...] (Auto) (14 - 44 %) 13.2 L Warrick % (Auto) (4 - 13 %) 5.7 Eos % (Auto) (0 - 6 %) 2.7 Baso % (Auto) (0 - 2 %) 0.3 Neut # (Auto) (2.0 - 7.6 K/mm3) 5.95 Lymph # (Auto) (1.0 - 3.8 K/mm3) 1.01 Warrick # (Auto) (0.1 - 0.8 K/mm3) 0.44 [...] as needed. Ambualte IS at 0709 RPT #:[id number] OF REPORTPRProgress Iszz8702-81-38G54:34:00Z.WRPX09000802-4638YRNwjwspfvr for patient vvwuEMEZUATORUHVNQ0998-02-36Q07:10:02 [facility] 2019-05-05 17:59:00 OPuzodlxvyk81796910ebKThO3DLU0WAXZKkp711 38WN9uan9L1osbbaI aLXx5uAfa4KUCk0Xqzddutqilp6478-42-55G45:59:698747-[address] [address] PATIENT NAME: RACHEAL SABILLON ADMIT DATE: 05/05/19ACCOUNT NO: [id number] ROOM NO: Z.SI04 AGE: 73 REPORT TYPE: CONSULTATION REPORT SEX: [...] MD WT: CON:GERARDO/CALVIN/NTSDD: 05/05/2019 17:59:54DT: 05/05/2019 20:30:38Conf#: [id number]/DID#: [id number] Authenticated by David Irving MD On 05/08/2019 05:26:56 PM at 1727 PATIENT NAME: RACHEAL SABILLON :30:00Z.[id number] 1-0382AVAvailable for patient bddfGEKQDBSBQZDLLB1702-17-83K47:27:19 [facility] 2019-05-05 16:25:00 WVpshfqtphk62182402pD6THie+R1LYlg94BDO2K 7dnAJJvQNBexis0O0 0gBwvpON/kgryfzRml6WGW7qXD8061-19-23T76:25:00 [facility] ([facility]ENTERCardiology Progress NoteREPORT#:[id number] REPORT STATUS: SignedDATE:05/05/19 TIME: 1625 PATIENT: RACHEAL SABILLON UNIT #: [id number]#: [id number] [facility]BED: [facility]ATIONBH32-CJWF: 46 AGE: 73 SEX: F ATTEND: Rohith Kc AUTHOR: Supa [...] Mean Ox Delivery Rate 05/05 1330 Aerosol 10.926034 60 mask 05/05 1330 79 100 05/05 1315 97.7 66 18 100 Aerosol 10.336207 60 mask 05/05 1315 75 17 100 [...] Sulfate 0 .STK-MED ONE .ROUTE (DC) Rocuronium [place] 0 .STK-MED ONE .ROUTE (DC) Calcium Chloride [...] LE assessment: no edemaMusculoskeletal: full range of motionNeuro/EDUCATIONAL AIDE: alert, oriented X 3, CN II-XII intactSkin: [...] (Auto) (14 - 44 %) 13.2 L War[place] % (Auto) (4 - 13 %) 5.7 Eos % (Auto) (0 - 6 %) 2.7 Baso % (Auto) (0 - 2 %) 0.3 Neut # (Auto) (2.0 - 7.6 K/mm3) 5.95 Lymph # (Auto) (1.0 - 3.8 K/mm3) 1.01 Warrick # (Auto) (0.1 - 0.8 K/mm3) 0.44 [...] Home medicatons Ambualte IS at 0529 RPT #:[id number] OF REPORTPRProgress Zxwv4306-44-20K45:25:00Z.XIGO96607697-6104RLCspzzmfba for patient tvafMABKKTCJSDRPGQ3081-94-45X17:29:40 [facility] 2019-05-05 13:29:00 LAqdxgcykzw34108488NMxiVbW4XR/t0egcLqUFh NhsdLbXf0VE96dgPa 0siFTD3atMKhnwlZBYN5xS+i1P9849-84-82W45:29:169419-[address] [address] PATIENT NAME: RACHEAL SABILLON ADMIT DATE: 05/05/19ACCOUNT NO: [id number] ROOM NO: SI04 AGE: 73 REPORT TYPE: ELECTROCARDIOGRAM SEX: F ADMITTING PHYSICIAN:Rohith Kc MD ATTENDING PHYSICIAN:Rohith Kc MD Order:[id number] Reason : post op Test Date/Time Stamp:SatMay [...] MARC at 1606 PATIENT NAME: RACHEAL SABILLON .[id number] ble for patient sjhgRIZADURFHRYJVY4346-83-41M10:06:37 [facility] 2019-05-05 12:37:00 QWbleczeojm92546109kSeCLxlUbeUBz3eE/jHZH uMiaa5m/1YQyiIGp5 utkSI/fG6aQlmwFSmTw1z8Q4Ko3045-35-20O50:37:00 [facility] ([facility] CENTERBrief Op NoteREPORT#:[id number] REPORT STATUS: SignedDATE:05/05/19 TIME: 1237 PATIENT: RACHEAL SABILLON UNIT #: [id number]#: [id number] ROOM/BED:: 46 AGE: 73 SEX: F ATTEND: [...] Placed, BLAKE drainDisposition: ICU, stable at 1239 [facility] #:[id number] OF REPORTOPOperative gerbcm1899-51-65J75:37:00Z.NXDL49710622-8229FGVdtctaozt for patient owndUZAMDUUWTHDYSS7280-26-79T34:39:24 [facility] 2019-05-05 12:32:00 HUbkeafdzjs96133800U+Q7C4JePRAXzTOLLEmhL +wlhmZIlfX/jMAyhf LZQA+/nMd4caewhES2DudJUTpz9064-48-76T22:32:130201-0828 [place] [address] PATIENT NAME: RACHEAL SABILLON ADMIT DATE: 05/05/19ACCOUNT NO: [id number] ROOM NO: [facility] AGE: 73 REPORT TYPE: OPERATIVE REPORT SEX: F ADMITTING PHYSICIAN:Rohith Kc MD ATTENDING PHYSICIAN:Rohith Kc MD OPERATION DATE: 05/05/2019 CARDIAC SURGERY SERVICE PREOPERATIVE DIAGNOSES: Left internal carotid stenosis. POSTOPERATIVE DIAGNOSIS: Left internal carotid stenosis. PROCEDURE: Right CVP insertion, ultrasound-guided access with SonoSite, rightsubclavian vein, left carotid endarterectomy, and Hemashield patcharterioplasty. SURGEON: Rohith Kc MD [employer] EXPERT: Brisa Moser PA-C ANESTHESIA: General. COMPLICATIONS: None. [...] condition. Dictated By: Rohith Kc MD WT: OP:GERARDO/ISAÍAS/NTSDD: 05/05/2019 12:32:10DT: 05/05/2019 13:11:36Conf#: [id number]/DID#: [id number] cc: Jose Marc MD Authenticated by Rohith Kc MD On 05/17/2019 01:22:07 PM at 1322 PATIENT NAME: RACHEAL SABILLON lxsauj8212-53-93F10:11:00Z.[id number] for patient zlrqHJSWWSXTFVWDRC4195-48-75R36:22:45 [facility] 2019-05-04 10:28:00 QKqkmdsygix99586702suieR04Jev/PP09jVWC5o HKg/yjqZ048jwMVWH FxFZTeta/GBZWmFQGX+i60oBLD4173-01-32S46:28:208710-[address] [address] PATIENT NAME: RACHEAL SABILLON ADMIT DATE: ACCOUNT NO: [id number] ROOM NO: AGE: 73 REPORT TYPE: ELECTROCARDIOGRAM SEX: F ADMITTING PHYSICIAN: ATTENDING PHYSICIAN:Rohith Kc MD Order:[id number] Reason : PRE-OP Test Date/Time Stamp:SatMay 04 [...] rate has decreased BY 33 BPMConfirmed by SERG DAVIS, MAXWELL ([id number]) on 05/04/2019 12:18:13 PM Referred By: Rohith Kc Confirmed by:MAXWELL COLÓN MD at 1218 PATIENT NAME: RACHEAL SABILLON .[id number] ble for patient ueqtJPWJAXPLSRYRKT8277-18-67B38:18:35 [facility] 2019-05-04 10:28:00 LAogxvxvdra63657655e45ozzniD09p8NjEyKjYc UiwL4si5nrjjj/TQt TFltaeW90gYcZqi6qz9L7p0djp8022-25-36H56:28:053971-[address] [address] PATIENT NAME: RACHEAL SABILLON ADMIT DATE: ACCOUNT NO: [id number] ROOM NO: AGE: 73 REPORT TYPE: ELECTROCARDIOGRAM SEX: F ADMITTING PHYSICIAN: ATTENDING PHYSICIAN:Rohith Kc MD Order:[id number] Reason : PRE-OP Test Date/Time Stamp:SatMay 04 [...] MARC at 1711 PATIENT NAME: RACHEAL SABILLON .[id number] ble for patient ywzjQCXKVMXGKOOKKW3368-38-76X46:11:43 [facility] 2018-11-17 21:37:00 [id number]+Sajz lEd+vwDyw3WEEvROt KekkdcfGwF+W7X9o0CWWPd/hvt0947-46-49J57:37:490119-[address] [address] PATIENT NAME: RACHEAL SABILLON ADMIT DATE: 09/30/18ACCOUNT NO: [id number] ROOM NO: Z.SI07 AGE: 73 REPORT TYPE: [...] the CVU unit and she was discharged to[facility] in a stable condition. She was instructed to follow up with Dr. Kc in 1 week. She is to continuemedications per the discharge MAR and also home health services was arranged forthis patient. Dictated By: RADHA Morton for Rohith Kc MD WT: DS:GERARDO/KIM/NTSDD: 11/17/2018 21:37:58DT: 11/17/2018 21:54:38Conf#: [id number]/DID#: [id number] Authenticated by RADHA Morton On 11/18/2018 08:54:11 PM Authenticated by Rohith Kc MD On 11/18/2018 10:06:10 PM PATIENT NAME: RACHEAL SABILLON at 2206 at 2206 PATIENT NAME: RACHEAL SABILLON hchvsjq0488-14-47F16:54:00Z.[id number] for patient ljxoRJPGXRRMZQYAPT0249-32-41K90:06:48 [facility] 2018-10-04 08:46:00 DMbvrdlrmes64240756ykDUxA9Ii4v5lMJzYIr2O UOV4AhggfhNwGcR8Q AePs5ib9BsWRLTMNonWxMRmFse4910-43-62I86:46:00 [facility] ([facility])Cardiovascular Surgery ProgREPORT#:[id number] REPORT STATUS: SignedDATE:10/04/18 TIME: 845 PATIENT: RACHEAL SABILLON UNIT #: [id number]#: [id number] [address] AGE: 72 SEX: F ATTEND: Rohith [...] Resp 30 10/03 1818 O2 Flow Rate 2.652697 10/03 0715 24 hour I O ending [...] no distentionGenitourinary: no foleyExtremities: moves all, no edemaNeuro/EDUCATIONAL AIDE: alert, oriented X 3, CNII-XII intacte, normal gait, normal speech, nomotor deficits, no sensory deficits, Tongue is midline without deviation Diagnosis, Assessment PlanFree Text A P:This is a 72 Y/F with LITTLE stenosisS/p Right CEA-tongue is midline without deviation, left facial droop. Right mildfacial swellingOn statin/plavix/aspirinDVT prophylaxis-SCDs and TEDsEncourage IS and ambulationHTN- well controlledCM [facility] D/c [facility] today when VS is stable and pt is ready. Follwoup with Dr. Kc after 1-2 weeks in the clinic. Plan discussed with: patient, collaborating MD (DR. Kc) at 1921 RPT #:[id number] OF REPORTPRProgress Vuyb1400-67-49S76:46:00Z.LYQD70689612-2754IRHmiacbdui for patient jwokIPJMMPRARCBTBT5390-39-45P53:21:45 [facility] 2018-10-04 08:46:00 UYzcugordjl80234814VEHmj0dswC/ySD8Md6agt 57snJG3vkkQSS4ofz b+Q9dW1G4wr0s74d4P99DQ6KCt4125-61-27W04:46:00 [facility] ([facility])Cardiovascular Surgery ProgREPORT#:[id number] REPORT STATUS: SignedDATE:10/04/18 TIME: 0846 PATIENT: RACHEAL SABILLON UNIT #: [id number]#: [id number] [facility] AGE: 72 SEX: F ATTEND: MoechasejovannaRohith Corrie [facility] AUTHOR: Ladi Guido NP * ALL edits [...] Ox 97 10/04 0719 FiO2 21 10/04 0719 O2 Delivery Room air 10/04 07 Temp 36.6 10/04 0400 B/P 151/74 10/03 1818 B/P Mean 103 10/03 1818 Pulse 96 10/03 1818 Resp 30 10/03 1818 O2 Flow Rate 2.094008 10/03 0715 24 hour I O ending [...] no distentionGenitourinary: no foleyExtremities: moves all, no edemaNeuro/EDUCATIONAL AIDE: alert, oriented X 3, CNII-XII intacte, normal gait, normal speech, nomotor deficits, no sensory deficits, Tongue is midline without deviation Diagnosis, Assessment PlanFree Text A P:This is a 72 Y/F with LITTLE stenosisS/p Right CEA-tongue is midline without deviation, left facial droop. Right mildfacial swellingOn statin/plavix/aspirinDVT prophylaxis-SCDs and TEDsEncourage IS and ambulationHTN- well controlledCM [facility] for [facility] D/c planning [facility] with [facility] today when VS is stable and pt is ready. Follwoup with Dr. Kc after 1-2 weeks in the clinic. Plan discussed with: patient, collaborating MD (DR. Kc) at 1921 at 1923 RPT #:[id number] OF REPORTPRProgress Esol9555-22-84F98:46:00Z.VUZP31856506-9965XFHrbrdkolu for patient muqyAPPTQIRMWIPREY9058-35-54K02:23:36 [facility] 2018-10-04 08:33:00 YXhgwnxrjbq88242993/q6eAiD4H/5SU5c7JzOig NTxCtskuKUbvKg9RJ PZQ/oUmgMYE2hMi6yR7W4rf/P+3919-30-90G72:33:450587-5681 [place] [id number] PATIENT NAME: RACHEAL SABILLON ADMIT DATE: 09/30/18ACCOUNT NO: [id number] ROOM NO: [facility] AGE: 72 REPORT TYPE: ELECTROCARDIOGRAM SEX: F ADMITTING PHYSICIAN:Rohith Kc MD ATTENDING PHYSICIAN:Rohith Kc MD Order:[id number] Reason : CAD Test Date/Time Stamp:SatOct 04 [...] MARC at 1011 PATIENT NAME: RACHEAL SABILLON .[id number] ble for patient oyylOHFMPPLAITOCBK2316-89-65F91:11:35 [facility] 2018-10-04 06:13:00 QQaukcttngr733733183nnVb5uaoxE/x4i7dmm6F nWAblRLeJIjFpLUjX vLYesjq3WJQ6Yvzj/dKKhZHw6/5391-12-17I74:13:00 [facility] ([facility])Cardiology Progress NoteREPORT#:[id number] REPORT STATUS: SignedDATE:10/04/18 TIME: 612 PATIENT: RACHEAL SABILLON UNIT #: [id number]#: [id number] [address]ZR: 46 AGE: 72 SEX: F ATTEND: Rohith Kc AUTHOR: Jose Marc MD * ALL edits [...] 99 10/03 0715 98.4 10/03 0715 Nasal 2.921167 cannula 10/03 0700 87 17 123/77 95 [...] edema, 2+ peripheral pulsesMusculoskeletal: full range of motionNeuro/EDUCATIONAL AIDE: alert, oriented X 3, CN II-XII intact, [...] Continue current medications Home today at 1021 RPT #:[id number] OF REPORTPRProgress Eltq5328-64-24I88:13:00Z.NSHT26645480-2469EACsxiukrai for patient kklgXPGFYBWMSRTSGD2991-88-47M12:21:58 [facility] 2018-10-03 17:54:00 MIvjsrrllvf29362307jmU+BhnSORIRfNhUzrQbi GhXOnhkWpEHosNnBX BN3ZfrPMZunnsNG2dGaiuXyDth4329-61-79H65:54:00 [facility] ([facility])Hospitalist Progress NoteREPORT#:[id number] REPORT STATUS: SignedDATE:10/03/18 TIME: 175 PATIENT: RACHEAL SABILLON UNIT #: [id number]#: [id number] [address]X69-CJGA: 46 AGE: 72 SEX: F ATTEND: Rohith [...] pre-existing hx of HTN at 1312 RPT #:[id number] OF REPORTPRProgress Fbzk5800-68-75P44:54:00Z.RDDF44657703-7358FVSeojyplby for patient ezwcXYDOHGKOIANMQX4481-51-20A26:12:39 [facility] 2018-10-03 11:59:00 KDbtphreorf12192786mumEgrEsPvbz4Nhnnx2Jv +JsZATWbkHRaesYwa 1MxGxhMEwQHjMV3AJFtFvpYQ879099-76-64E11:59:00 [facility] ([facility])Cardiovascular Surgery ProgREPORT#:[id number] REPORT STATUS: SignedDATE:10/03/18 TIME: 1159 PATIENT: RACHEAL SABILLON UNIT #: [id number]#: [id number] [address]-IORE: 46 AGE: 72 SEX: F ATTEND: Rohith Kc [facility] AUTHOR: Ladi Guido PRODUCTION PATTERN MAKER * ALL edits or amendments must be [...] Temp 36.7 10/03 1043 O2 Flow Rate 2.406297 10/03 0715 FiO2 28 10/02 2005 24 [...] no distentionGenitourinary: no foleyExtremities: moves all, no edemaNeuro/EDUCATIONAL AIDE: alert, oriented X 3, CNII-XII intacte, normal [...] (Auto) (14 - 44 %) 10.5 L Warrick % (Auto) (4 - 13 %) 12.9 Eos % (Auto) (0 - 6 %) 0.5 Baso % (Auto) (0 - 2 %) 0.2 Neut # (Auto) (2.0 - 7.6 K/mm3) 9.00 H Lymph # (Auto) (1.0 - 3.8 K/mm3) 1.25 Warrick # (Auto) (0.1 - 0.8 K/mm3) 1.54 [...] ambulationHTN- well controlledCM [facility] D/c planning [facility] with [facility] today or dexter. when VS is stable and pt is ready.RN reported that pt desaturate to O2 sat 90%'s-95%'s while resting. Then after walking she desat 90%'s. While sleeping pt O2 sat running between 88%-92%. Consulted CM for home oxygen to go home with. CM is following. Discussed with Dr. Kc. Plan discussed with: patient, collaborating MD (Dr. Kc) at 1236 RPT #:[id number] OF REPORTPRProgress Gles7720-74-42U48:59:00Z.KRPO98365849-4533VJWrjdzmmsc for patient cxhqTZAIPZIUSWFISO2202-64-49U06:36:34 [facility] 2018-10-03 11:59:00 GAzyxcptroc750784320Jf96i8xMIP0pbLeFsws/ 5C24vak688X9sSQJc 6Kal7xNztzFKL5CN8nlX9w7MP14217-49-48V02:59:00 [facility] ([facility])Cardiovascular Surgery ProgREPORT#:[id number] REPORT STATUS: SignedDATE:10/03/18 TIME: 1159 PATIENT: RACHEAL SABILLON UNIT #: [id number]#: [id number] ROOM/BED: XQ91-VOVZ: 46 AGE: 72 SEX: F ATTEND: Rohith Kc MDA AUTHOR: Ladi Guido NP * ALL edits [...] Temp 36.7 10/03 1043 O2 Flow Rate 2.025305 10/03 0715 FiO2 28 10/02 2005 24 [...] no distentionGenitourinary: no foleyExtremities: moves all, no edemaNeuro/EDUCATIONAL AIDE: alert, oriented X 3, CNII-XII intacte, normal [...] (Auto) (14 - 44 %) 10.5 L Warrick % (Auto) (4 - 13 %) 12.9 Eos % (Auto) (0 - 6 %) 0.5 Baso % (Auto) (0 - 2 %) 0.2 Neut # (Auto) (2.0 - 7.6 K/mm3) 9.00 H Lymph # (Auto) (1.0 - 3.8 K/mm3) 1.25 Warrick # (Auto) (0.1 - 0.8 K/mm3) 1.54 [...] ambulationHTN- well controlledCM [facility] D/c planning home with [facility] today or dexter. when VS is stable [...] Addendum 1: 10/03/18 1541 by Ladi Guido PRODUCTION PATTERN MAKER for Rohith Kc MD 1520RN reported pt BP dropped SBP 80's-70's pt is asymptomatic, denies CP, dizzinessor headache. Ordered IV bolus NSS. BP came back up to 116/78. Will continue to monitor. Family at the bedside. Will hold the plan for discharge today. Discussed with Dr. Kc. at 1543 RPT #:[id number] OF REPORTPRProgress Fkii5787-46-58P66:59:00Z.OXGN36035373-7217ZXEylrksanc for patient oyeeGOCKXPGIZNCOFQ2503-28-98U98:43:28 [facility] 2018-10-03 11:59:00 NCqikeaynjt704050464PtWPhvpyE9LYEDfnosmA VDeKyOtIPMb5W+55P Y/c3A/D/tt/IjABJgK5y4XV7nN2368-39-81N62:59:00 [facility] ([facility])Cardiovascular Surgery ProgREPORT#:[id number] REPORT STATUS: SignedDATE:10/03/18 TIME: 1159 PATIENT: RACHEAL SABILLON UNIT #: [id number]#: [id number] [facility]U63-WHDN: 46 AGE: 72 SEX: F ATTEND: Rohith Kc AUTHOR: [place],Ladi PRODUCTION PATTERN MAKER * ALL edits or amendments must be made on the electronic/computer document * See AddendumGeneralPost-op: day 2Status post:Right CEA SubjectivePatient reports:No: complaints, nausea, vomiting, pain. Nursing reports:No: complaints. Comments:seen pt OOB in the chairdenies SOB, CP, pain Review of SystemsConstitutional:Denies: chills, fatigue, fever, generalized weakness. Respiratory:Denies: NEGRO (dyspnea on exertion), SOB. Cardiovascular:Denies: chest pain, ENGRO (dyspnea on exertion), edema, orthopnea. Objective Physical ExamVS/I O:Last Documented: Result Date Time Pulse Ox 86 10/03 1136 Pulse 96 10/03 1136 Resp 27 10/03 1136 B/P 130/76 10/03 1101 B/P Mean 95 10/03 1101 O2 Delivery Room air 10/03 1043 Temp 36.7 10/03 1043 O2 Flow Rate 2.525649 10/03 0715 FiO2 28 10/02 2005 24 [...] no distentionGenitourinary: no foleyExtremities: moves all, no edemaNeuro/EDUCATIONAL AIDE: alert, oriented X 3, CNII-XII intacte, normal [...] (Auto) (14 - 44 %) 10.5 L Warrick % (Auto) (4 - 13 %) 12.9 Eos % (Auto) (0 - 6 %) 0.5 Baso % (Auto) (0 - 2 %) 0.2 Neut # (Auto) (2.0 - 7.6 K/mm3) 9.00 H Lymph # (Auto) (1.0 - 3.8 K/mm3) 1.25 Warrick # (Auto) (0.1 - 0.8 K/mm3) 1.54 [...] ambulationHTN- well controlledCM [facility] D/c planning [facility] with [facility] today or dexter. when VS is stable [...] Addendum 1: 10/03/18 1541 by Ladi Guido PRODUCTION PATTERN MAKER for Rohith Kc MD 1520RN reported pt BP dropped SBP 80's-70's pt is asymptomatic, denies CP, dizzinessor headache. Ordered IV bolus NSS. BP came back up to 116/78. Will continue to monitor. Family at the bedside. Will hold the plan for discharge today. Discussed with Dr. Kc. at 1543 Addendum 2: 10/03/18 1622 by Ladi Guido PRODUCTION PATTERN MAKER for Rohith Kc MD at 1623 RPT #:[id number] OF REPORTPRProgress Vmay5023-06-27Y38:59:00Z.KTDZ49733755-5365DOTipzsbpsn for patient vhjrRLHYZWPVVKLTYC8145-19-41F68:23:21 [facility] 2018-10-03 11:59:00 YBpxvwmedwz03537689TfnzQuOhX+RRTrNZEKltf 5M0TppfovGhIWkwUF 02C4Cxv+eqL82u3TYkIMgTqi6Q7821-52-96D68:59:00 [facility] ([facility])Cardiovascular Surgery ProgREPORT#:[id number] REPORT STATUS: SignedDATE:10/03/18 TIME: 1159 PATIENT: RACHEAL SABILLON UNIT #: [id number]#: [id number] [address]-CFWV: 46 AGE: 72 SEX: F ATTEND: Rohith Kc MDADM AUTHOR: Ladi Guido PRODUCTION PATTERN MAKER * ALL edits or amendments must be [...] Temp 36.7 10/03 1043 O2 Flow Rate 2.142841 10/03 0715 FiO2 28 10/02 2005 24 [...] no distentionGenitourinary: no foleyExtremities: moves all, no edemaNeuro/EDUCATIONAL AIDE: alert, oriented X 3, CNII-XII intacte, normal [...] (Auto) (14 - 44 %) 10.5 L Warrick % (Auto) (4 - 13 %) 12.9 Eos % (Auto) (0 - 6 %) 0.5 Baso % (Auto) (0 - 2 %) 0.2 Neut # (Auto) (2.0 - 7.6 K/mm3) 9.00 H Lymph # (Auto) (1.0 - 3.8 K/mm3) 1.25 Warrick # (Auto) (0.1 - 0.8 K/mm3) 1.54 [...] ambulationHTN- well controlledCM [facility] D/c planning [facility] with [facility] today or dexter. when VS is stable [...] Addendum 1: 10/03/18 1541 by Ladi Guido PRODUCTION PATTERN MAKER 1520RN reported pt BP dropped SBP 80's-70's pt is asymptomatic, denies CP, dizzinessor headache. Ordered IV bolus NSS. BP came back up to 116/78. Will continue to monitor. Family at the bedside. Will hold the plan for discharge today. Discussed with Dr. Kc. at 1543 at 1927 Addendum 2: 10/03/18 1622 by Ladi Guido NP at 1623 at 1927 RPT #:[id number] OF REPORTPRProgress Xgxm9705-19-56X78:59:00Z.QHRX00740569-0167KDLichsqccx for patient hbyrOWJBSJBCCAYCCC1602-53-43V26:28:07 [facility] 2018-10-03 11:59:00 NHssebdoiax50650264KzCSgjvJ9o0xJoVL5Zzvt 804M5UqSqog+WnAV1 GRSpN8YUHPs0bwTisyhcXDWH1q4906-02-24D77:59:00 [facility] ProgREPORT#:[id number] REPORT STATUS: SignedDATE:10/03/18 TIME: 1159 PATIENT: RACHEAL SABILLON UNIT #: [id number]#: [id number] [address]-XNCZ: 46 AGE: 72 SEX: F ATTEND: Rohith [...] Temp 36.7 10/03 1043 O2 Flow Rate 2.214119 10/03 0715 FiO2 28 10/02 2005 24 [...] no distentionGenitourinary: no foleyExtremities: moves all, no edemaNeuro/EDUCATIONAL AIDE: alert, oriented X 3, CNII-XII intacte, normal [...] (Auto) (14 - 44 %) 10.5 L Warrick % (Auto) (4 - 13 %) 12.9 Eos % (Auto) (0 - 6 %) 0.5 Baso % (Auto) (0 - 2 %) 0.2 Neut # (Auto) (2.0 - 7.6 K/mm3) 9.00 H Lymph # (Auto) (1.0 - 3.8 K/mm3) 1.25 Warrick # (Auto) (0.1 - 0.8 K/mm3) 1.54 [...] ambulationHTN- well controlledCM [facility] for [facility] D/c planning home with [facility] today or dexter. when VS is stable [...] Addendum 1: 10/03/18 1541 by Ladi Guido PRODUCTION PATTERN MAKER 1520RN reported pt BP dropped SBP 80's-70's pt is asymptomatic, denies CP, dizzinessor headache. Ordered IV bolus NSS. BP came back up to 116/78. Will continue to monitor. Family at the bedside. Will hold the plan for discharge today. Discussed with Dr. Kc. at 1543 at 1927 Addendum 2: 10/03/18 1622 by Ladi Guido NP at 1623 at 1927 RPT #:[id number] OF REPORTPRProgress Cgaa7835-42-91H70:59:00Z.WLBS83799466-2989GNVzzrpaphu for patient pvweWADSVAPFZDJYJK1158-76-78L13:31:57 [facility] 2018-10-02 18:27:00 YAlkhnyzdis025226233HtlugxpX9cc2lGolmqDY u2WVIMzQfnipRO+g6 t2+SWWW9Dw2jV45dX4sLcJ9FnV1725-81-79P99:27:00 [facility] ([facility])Cardiology Progress NoteREPORT#:[id number] REPORT STATUS: SignedDATE:10/02/18 TIME: 1826 PATIENT: RACHEAL SABILLON UNIT #: [id number]#: [id number] [address]ODID: 46 AGE: 72 SEX: F ATTEND: Rohith Kc MDAREINA AUTHOR: Supa Kelly MD * ALL edits [...] O2 Flow FiO2 Mean Ox Delivery Rate 06/20 1500 83 16 145/69 97 98 06/20 1430 76 15 130/63 90 100 06/20 1400 77 18 162/74 106 95 06/20 1330 92 156/74 106 89 06/20 1300 75 26 140/65 92 95 06/20 1230 66 19 105/59 77 99 06/20 1215 100 Nasal 2.658615 cannula 06/20 1200 67 18 99/60 74 [...] 103 06/20 0730 97.6 06/20 0730 Nasal 2.701948 cannula 06/20 0730 77 147/76 106 91 [...] 16 101/55 73 98 06/19 2220 Nasal 3.787952 cannula 06/19 2200 97.7 06/19 2200 73 [...] LE assessment: no edemaMusculoskeletal: full range of motionNeuro/EDUCATIONAL AIDE: alert, oriented X 3, CN II-XII intactSkin: [...] (Auto) (14 - 44 %) 11.9 L Warrick % (Auto) (4 - 13 %) 11.2 Eos % (Auto) (0 - 6 %) 0.7 Baso % (Auto) (0 - 2 %) 0.2 Neut # (Auto) (2.0 - 7.6 K/mm3) 8.79 H Lymph # (Auto) (1.0 - 3.8 K/mm3) 1.38 Warrick # (Auto) (0.1 - 0.8 K/mm3) 1.30 [...] Ambulate Continue current medications. at 1620 RPT #:[id number] OF REPORTPRProgress Lmhl9053-88-43S79:27:00Z.PFQK04442672-5247WOLfwosofzu for patient bhoqJZSDFTNENSIUQN0583-17-83A16:21:05 [facility] 2018-10-02 15:22:00 YGivrwwbfvq92568218WqyN1Lc/BYcH50Fy4UM4c n5SlU+BetgvRPjAH+ pPSzZwsa6fnR3hmfZsMWPrqJRe7345-20-81G85:22:00 [facility])Hospitalist Progress NoteREPORT#:[id number] REPORT STATUS: SignedDATE:10/02/18 TIME: 152 PATIENT: RACHEAL SABILLON UNIT #: [id number]#: [id number] [address] AGE: 72 SEX: F ATTEND: Rohith Kc [facility] AUTHOR: Mariana Humphrey MD * ALL edits or amendments must be made on the electronic/computer document * SubjectiveChief Complaint:patient is doing well. Review of SystemsAll systems rev neg: except as marked Objective GeneralVS/I O:Vital Signs: Date Time Temp Pulse Resp B/P B/P Pulse O2 O2 Flow FiO2 Mean Ox Delivery Rate 10/02 1215 100 Nasal 2.364240 cannula 10/02 1000 70 23 126/71 93 94 10/02 0930 80 148/67 97 72 10/02 0900 80 142/102 117 10/02 0845 20 10/02 0830 66 19 128/65 91 10/02 0800 84 19 146/76 103 10/02 0730 97.6 10/02 0730 Nasal 2.349554 cannula 10/02 0730 77 147/76 106 91 06/20 0700 71 26 152/74 105 98 06/ 0530 60 16 108/55 78 100 06/20 0500 60 13 127/73 94 100 06/20 0430 59 13 108/62 79 100 06/20 0400 97.8 06 0346 63 15 134/79 101 100 06/20 0300 83 17 97 06/ 0230 71 28 131/67 93 96 06/ 0200 78 17 137/77 102 95 / 0130 79 17 95 / 0100 72 19 130/74 97 98 06/ 0030 59 23 112/55 75 99 06 0000 97.8 10/02 0000 74 40 122/61 86 99 10/01 2330 70 16 129/62 89 97 10/01 2300 71 15 121/67 89 98 10/01 2230 69 16 101/55 73 98 / 2220 Nasal 3.508437 cannula 10/01 2200 97.7 10/01 2200 73 [...] (Auto) (14 - 44 %) 11.9 L Warrick % (Auto) (4 - 13 %) 11.2 Eos % (Auto) (0 - 6 %) 0.7 Baso % (Auto) (0 - 2 %) 0.2 Neut # (Auto) (2.0 - 7.6 K/mm3) 8.79 H Lymph # (Auto) (1.0 - 3.8 K/mm3) 1.38 Warrick # (Auto) (0.1 - 0.8 K/mm3) 1.30 [...] pre-existing hx of HTN at 1526 RPT #:[id number] OF REPORTPRProgress Uuzu1502-58-52E29:22:00Z.ZMMS27445138-6938RCSynqivnkd for patient gglwDSTMGUKJIKQHLP6517-04-55X11:27:05 [facility] 2018-10-02 09:58:00 TXnspiwrgrh582745492Pbis1ic3hyJxwgx9D6oa dpxGMbDrGQmZRrvZa nHes2ZVHOjUVD77m+Z1jFw4Yux8739-08-10S89:58:00 [facility])Cardiovascular Surgery ProgREPORT#:[id number] REPORT STATUS: SignedDATE:10/02/18 TIME: 09 PATIENT: RACHEAL SABILLON UNIT #: [id number]#: [id number] [address]-GRCO: 46 AGE: 72 SEX: F ATTEND: Rohith [...] Nasal cannula 10/01 2220 O2 Flow Rate 3.784015 10/01 2220 FiO2 28 10/01 1442 24 [...] no distentionGenitourinary: no foleyExtremities: moves all, no edemaNeuro/EDUCATIONAL AIDE: alert, oriented X 3, CNII-XII intacte, normal [...] (Auto) (14 - 44 %) 11.9 L Warrick % (Auto) (4 - 13 %) 11.2 Eos % (Auto) (0 - 6 %) 0.7 Baso % (Auto) (0 - 2 %) 0.2 Neut # (Auto) (2.0 - 7.6 K/mm3) 8.79 H Lymph # (Auto) (1.0 - 3.8 K/mm3) 1.38 Warrick # (Auto) (0.1 - 0.8 K/mm3) 1.30 [...] monitor b/p today.[facility] tentatively saturday or saturday. Orders: Procedure Date/time Status CASE MANAGEMENT CONSULT 10/03 1839 Active Plan discussed with: patient, collaborating MD (Dr. Kc) at 2031 [facility] #:[id number] OF REPORTPRProgress Vfkz9104-99-60P90:58:00Z.XSRD68802458-4383FYDjecbwkas for patient eubfRRVFCUFXDEKBYO3036-55-70H16:31:52 [facility] 2018-10-02 09:58:00 ERvwrepvlsu95867673kf0Dz8byZBncKR1olgI0s DjaaBY3jMola3YSLT euVKzKOmtg5bkP3UO206ZzATXT1176-93-38B64:58:00 [facility] ([facility])Cardiovascular Surgery ProgREPORT#:[id number] REPORT STATUS: SignedDATE:10/02/18 TIME: 957 PATIENT: RACHEAL SABILLON UNIT #: [id number]#: [id number] [address]94-XQZY: 46 AGE: 72 SEX: F ATTEND: Rohith [...] Nasal cannula 10/01 2220 O2 Flow Rate 3.913365 10/01 2220 FiO2 28 10/01 1442 24 [...] no distentionGenitourinary: no foleyExtremities: moves all, no edemaNeuro/EDUCATIONAL AIDE: alert, oriented X 3, CNII-XII intacte, normal [...] (Auto) (14 - 44 %) 11.9 L Warrick % (Auto) (4 - 13 %) 11.2 Eos % (Auto) (0 - 6 %) 0.7 Baso % (Auto) (0 - 2 %) 0.2 Neut # (Auto) (2.0 - 7.6 K/mm3) 8.79 H Lymph # (Auto) (1.0 - 3.8 K/mm3) 1.38 Warrick # (Auto) (0.1 - 0.8 K/mm3) 1.30 [...] monitor b/p today.[facility] D/c planning [facility] with [facility] tentatively saturday or saturday. Orders: Procedure Date/time Status CASE MANAGEMENT CONSULT 10/03 1839 Active Plan discussed with: patient, collaborating MD (Dr. Kc) at 2031 at 1929 RPT #:[id number] OF REPORTPRProgress Cixw0803-02-34U74:58:00Z.HJFW53231839-7944HVPwxgvtnol for patient ifivGHTRBTWDZBLPAW0758-11-22A76:29:17 [facility] 2018-10-01 18:45:00 BSfopxjfybv23175701wOR3JLErBeymDaoYh0B/k 3F0SDJy8mR6FCoeho GKzld1i5YykR9IQhH2X8ODJQVb5761-61-61V10:45:00 [facility] ([facility])Cardiology Progress NoteREPORT#:[id number] REPORT STATUS: SignedDATE:10/01/18 TIME: 1844 PATIENT: RACHEAL SABILLON UNIT #: [id number]#: [id number] [address] AGE: 72 SEX: F ATTEND: Rohith [...] 99.0 90 24 166/77 106 100 Nasal 3.364236 cannula 10/01 1503 85 23 99 10/01 [...] Room air 10/01 1145 84 25 90 06/19 1130 68 [...] 97.7 64 18 114/60 78 100 Nasal 3.436282 cannula 06/19 0800 79 24 111/58 78 [...] 06/18 2300 75 19 113/65 83 97 09/30 2245 103 20 96 09/30 2230 77 19 98 09/30 2215 80 17 98 09/30 2200 80 18 121/69 90 98 09/30 2145 79 18 97 09/30 2130 81 18 96 09/305 83 20 95 09/30 2100 76 21 103/59 76 97 09/305 76 17 97 09/30 2029 77 18 98 09/30 2014 80 20 97 10/01 1999 97.2 10/01 1999 Nasal 2.286644 cannula 10/01 1999 79 18 104/57 75 [...] LE assessment: no edemaMusculoskeletal: full range of motionNeuro/EDUCATIONAL AIDE: alert, oriented X 3, CN II-XII intactSkin: dry, intactPsychiatry: normal affect, normal judgment/insight, normal mood ResultsFindings/Data:Laboratory Tests 10/01 09/30 0450 2215 Chemistry Sodium (137 - 145 MMOL/L) 136 [...] MG/DL) 1.7 1.7 Laboratory Tests 10/01 0450 Hematology WBC (3.8 - 9.8 K/MM3) 10.7 [...] (Auto) (14 - 44 %) 8.7 L Warrick % (Auto) (4 - 13 %) 8.4 Eos % (Auto) (0 - 6 %) 0.1 Baso % (Auto) (0 - 2 %) 0.2 Neut # (Auto) (2.0 - 7.6 K/mm3) 8.82 H Lymph # (Auto) (1.0 - 3.8 K/mm3) 0.93 L Warrick # (Auto) (0.1 - 0.8 K/mm3) 0.90 [...] Impressions:RADIOLOGY - XR CHEST 1V 10/01 448 Report Impression - Status: SIGNED Entered: 10/01/2018 0748 IMPRESSION:Mild left basilar atelectasis and/or pleural fluid.Impression By: Krishna - Kayode Juarez MD Diagnosis, Assessment Plan Free Text DxA P NotesFree Text DxA P Notes:IMP: Carotid vascular disease s/p right CEA CAD - stable PLAN: Ambulate Home medications. at 2048 RPT #:[id number] OF REPORTPRProgress Nyyx5982-58-38A27:45:00Z.NWAZ04215737-0129EYYlzqritwn for patient ggbhLBKHLWZIMMMTBQ4702-28-68X65:49:02 [facility] 2018-10-01 15:00:00 VRszesqidrr98100537syzYuemjbx6EbXCv2uxsZ 9wkzGKqqGTx5ZU3d6 ZKNcsZFcNi+ZOrzJ7Q097LG/1+8356-08-90V27:00:00 [facility] ([facility]ospital[facility] Progress NoteREPORT#:[id number] REPORT STATUS: SignedDATE:10/01/18 TIME: 1500 PATIENT: RACHEAL SABILLON UNIT #: [id number]#: [id number] [address] AGE: 72 SEX: F ATTEND: Rohith Kc [facility] AUTHOR: Mariana Humphrey MD * ALL edits [...] 10/01 1230 74 18 129/72 93 90 06/19 1215 69 11 91 06/19 1200 71 14 123/72 93 91 06/19 [...] 97.7 64 18 114/60 78 100 Nasal 3.617944 cannula 06/19 0800 79 24 111/58 78 [...] 98 06/18 2014 80 20 97 06/18 1999 97.2 06/18 1999 Nasal 2.008918 cannula 06/18 1999 79 18 104/57 75 [...] 1642 85 18 97 06/18 1630 Nasal 3.445045 cannula 06/18 1630 87 20 98 06/18 1627 88 22 98 06/18 1624 86 20 98 06/18 1612 87 20 98 06/18 1557 85 20 98 06/18 1542 91 23 97 06/18 1527 99 30 97 06/18 1512 100 Simple 5.899692 40 mask 06/18 1512 97.6 107 30 146/69 94 100 Simple 3.696588 mask 09/30 1512 107 99 24 hour [...] (14 - 44 %) 8.7 L 30.3 Warrick % (Auto) (4 - 13 %) 8.4 10.8 Eos % (Auto) (0 - 6 %) 0.1 3.0 Baso % (Auto) (0 - 2 %) 0.2 0.3 Neut # (Auto) (2.0 - 7.6 K/mm3) 8.82 H 5.97 Lymph # (Auto) (1.0 - 3.8 K/mm3) 0.93 L 3.28 Warrick # (Auto) (0.1 - 0.8 K/mm3) 0.90 [...] pre-existing hx of HTN at 1943 RPT #:[id number] OF REPORTPRProgress Gzcw1329-31-11K14:00:00Z.[id number] for patient bawgLLMQNESJSGNBSA2899-50-85X38:44:57 [facility] 2018-10-01 10:27:00 IBgrhzyrtrd50543586jYHcBFihQDTE8/N8trphF Gwgwam7kWMVEFhlTi /ttB1G17B83ZdiXrRhYJQcSZvr7392-89-17L61:27:00 [facility] FallsCardiovascular Surgery ProgREPORT#:[id number] REPORT STATUS: SignedDATE:10/01/18 TIME: 1027 PATIENT: RACHEAL SABILLON UNIT #: [id number]#: [id number] [address] AGE: 72 SEX: F ATTEND: Rohith Kc [facility] AUTHOR: Billie Valadez NP * ALL edits [...] Nasal cannula 10/01 1999 O2 Flow Rate 2.744486 10/01 1999 FiO2 40 09/30 1512 24 [...] sounds, no distentionGenitourinary: foleyExtremities: moves all, no edemaNeuro/EDUCATIONAL AIDE: alert, oriented X 3, CNII-XII intacte, normal [...] (14 - 44 %) 8.7 L 30.3 Warrick % (Auto) (4 - 13 %) 8.4 10.8 Eos % (Auto) (0 - 6 %) 0.1 3.0 Baso % (Auto) (0 - 2 %) 0.2 0.3 Neut # (Auto) (2.0 - 7.6 K/mm3) 8.82 H 5.97 Lymph # (Auto) (1.0 - 3.8 K/mm3) 0.93 L 3.28 Warrick # (Auto) (0.1 - 0.8 K/mm3) 0.90 [...] collaborating MD (Dr. Kc) at 1105 RPT #:[id number] OF REPORTPRProgress Rsxa5949-39-72Q35:27:00Z.GNJQ50579160-6060VMGgurgqddi for patient rnkrGIXMAMCQUOXYYF7963-64-94M26:05:44 [facility] 2018-10-01 10:27:00 YAudeidmzxt30856086LrCOMwCL+FmqGUoIETb2Q mab7dRsPcq8yKf1Rm KwL+wKOQJTAB5majNUFKDg4JOZ7359-02-36O15:27:00 [facility] ([facility])Cardiovascular Surgery ProgREPORT#:[id number] REPORT STATUS: SignedDATE:10/01/18 TIME: 1027 PATIENT: RACHEAL SABILLON UNIT #: [id number]#: [id number] [address]OWC: [address] AGE: 72 SEX: F ATTEND: Rohith Kc [facility] AUTHOR: Billie Valadez NP * ALL edits [...] Nasal cannula 10/01 1999 O2 Flow Rate 2.825248 10/01 1999 FiO2 40 09/30 1512 24 [...] sounds, no distentionGenitourinary: foleyExtremities: moves all, no edemaNeuro/EDUCATIONAL AIDE: alert, oriented X 3, CNII-XII intacte, normal [...] (14 - 44 %) 8.7 L 30.3 Warrick % (Auto) (4 - 13 %) 8.4 10.8 Eos % (Auto) (0 - 6 %) 0.1 3.0 Baso % (Auto) (0 - 2 %) 0.2 0.3 Neut # (Auto) (2.0 - 7.6 K/mm3) 8.82 H 5.97 Lymph # (Auto) (1.0 - 3.8 K/mm3) 0.93 L 3.28 Warrick # (Auto) (0.1 - 0.8 K/mm3) 0.90 [...] basilar atelectasis and/or pleural fluid.Impression By: Krishna Juarez MD Diagnosis, Assessment PlanFree Text A [...] Addendum 1: 10/01/18 1516 by Billie Valadez PRODUCTION PATTERN MAKER for Rohith Kc MD A/PHTN-B/B elevated with systolic 180-200's this afternoon. Patient restrated on cardene gtt. procardia SL ordered. Will monitor in ICU. Patinet remains neurologically intact. right neck dressing D/c/I. D/w with Dr. Kc, patient,and BS RN. at 1518 RPT #:[id number] OF REPORTPRProgress Gjub8105-67-09T64:27:00Z.KMYD78888940-5944DAVlipnwmdv for patient jqtuTZKQWHXNXENZUV8354-53-32X11:18:51 [facility] 2018-10-01 10:27:00 CAtrzcrkawv35098854WDMETU14rQISFRwzS4EHy 1JnNwvrOCvKmPx7Z8 Rg353qKg45X91c8tJ8vpkt2Wk11382-21-98C03:27:00 [facility] FallsCardiovascular Surgery ProgREPORT#:[id number] REPORT STATUS: SignedDATE:10/01/18 TIME: 1027 PATIENT: RACHEAL SABILLON UNIT #: [id number]#: [id number] [facility] AGE: 72 SEX: F ATTEND: Rohith Kc [facility] AUTHOR: Billie Valadez NP * ALL edits [...] Nasal cannula 10/01 1999 O2 Flow Rate 2.650575 10/01 1999 FiO2 40 09/30 1512 24 [...] sounds, no distentionGenitourinary: foleyExtremities: moves all, no edemaNeuro/EDUCATIONAL AIDE: alert, oriented X 3, CNII-XII intacte, normal [...] (14 - 44 %) 8.7 L 30.3 Warrick % (Auto) (4 - 13 %) 8.4 10.8 Eos % (Auto) (0 - 6 %) 0.1 3.0 Baso % (Auto) (0 - 2 %) 0.2 0.3 Neut # (Auto) (2.0 - 7.6 K/mm3) 8.82 H 5.97 Lymph # (Auto) (1.0 - 3.8 K/mm3) 0.93 L 3.28 Warrick # (Auto) (0.1 - 0.8 K/mm3) 0.90 [...] BS RN. at 1518 at 1954 RPT #:[id number] OF REPORTPRProgress Hoba4503-26-00U57:27:00Z.PBDE51368156-3359WAPrwxrylew for patient adwyRKNHFALRDBQFLG4354-39-74D69:54:49 [facility] 2018-10-01 10:27:00 EHioktnxpip951437080XS1FgkrY/gpbXIgLRXlM lAdMRsS22ZtYNN93m lb7fq6s/AHlDt5qQlXrvltAumF7925-57-04K18:27:00 [facility] ([facility])Cardiovascular Surgery ProgREPORT#:[id number] REPORT STATUS: SignedDATE:10/01/18 TIME: 1027 PATIENT: RACHEAL SABILLON UNIT #: [id number]#: [id number] [address]HP: 46 AGE: 72 SEX: F [facility] AUTHOR: Billie Valadez NP * ALL edits [...] 129/68 10/01 0700 B/P Mean 91 10/01 07 Pulse 84 10/01 0700 Resp 20 10/01 07 Temp 98.7 10/01 0400 O2 Delivery Nasal cannula 10/01 1999 O2 Flow Rate 2.278287 10/01 1999 FiO2 40 09/30 1512 24 [...] sounds, no distentionGenitourinary: foleyExtremities: moves all, no edemaNeuro/EDUCATIONAL AIDE: alert, oriented X 3, CNII-XII intacte, normal [...] (14 - 44 %) 8.7 L 30.3 Warrick % (Auto) (4 - 13 %) 8.4 10.8 Eos % (Auto) (0 - 6 %) 0.1 3.0 Baso % (Auto) (0 - 2 %) 0.2 0.3 Neut # (Auto) (2.0 - 7.6 K/mm3) 8.82 H 5.97 Lymph # (Auto) (1.0 - 3.8 K/mm3) 0.93 L 3.28 Warrick # (Auto) (0.1 - 0.8 K/mm3) 0.90 [...] pneumothorax. Impression By: Bernie - Ryann Zuniga MDRADIOLOGY - XR CHEST 1V 10/01 0449 Report Impression - Status: SIGNED Entered: 10/01/2018 0748 IMPRESSION:Mild left basilar atelectasis and/or pleural fluid.Impression By: Travis7 - Kaydoe Juarez MD Diagnosis, Assessment PlanFree Text A [...] BS RN. at 1518 at 1954 RPT #:[id number] OF REPORTPRProgress Rafi3100-74-93T55:27:00Z.LYDD82450547-0997MJFoukjjcaz for patient cfnqHSTZYSYVZOEOZF9912-37-03M24:56:00 [facility] 2018-10-01 08:08:00 FJvoxbwukuw46261294OXD0mWG4YNbrLiHuTgV8P GqjObrupbGs9AZCz7 Y70Q+mI+e00YFciBkl1fldwcTp2120-56-39M29:08:675713-[address] [address] PATIENT NAME: RACHEAL SABILLON ADMIT DATE: 09/30/18ACCOUNT NO: [id number] ROOM NO: Z.SI07 AGE: 72 REPORT TYPE: ELECTROCARDIOGRAM SEX: F ADMITTING PHYSICIAN:Rohith Kc MD ATTENDING PHYSICIAN:Rohith Kc MD Order:[id number] Reason : CAD Test Date/Time Stamp:SatOct 01 [...] MARC at 1611 PATIENT NAME: RACHEAL SABILLON .[id number] ble for patient nrtbCZZGDKZNGJVZQW4038-92-14P07:12:05 [facility] 2018-09-30 19:05:00 WSaostbvsdw635710100kUiE3yFd8Udf14XZRiGz ylPVxoywiJiV+0SWb QHkERQEVc+Ge21jdm2ePhqiebu4249-04-65O16:05:00 [facility] FallsAdult General ConsultationREPORT#:[id number] REPORT STATUS: SignedDATE:09/30/18 TIME: 190 PATIENT: RACHEAL SABILLON UNIT #: [id number]#: [id number] [address]NY[address]-DWKY: 46 AGE: 72 SEX: F ATTEND: Rohith Kc MDADM AUTHOR: Mariana Humphrey MD * ALL edits [...] Nasal cannula 09/30 1630 O2 Flow Rate 3.903288 09/30 1630 FiO2 40 09/30 1512 Temp [...] symmetric expansionAbdomen: soft, non-tenderExtremities: moves all, no edemaNeuro/EDUCATIONAL AIDE: alert, no motor deficitsSkin: dry, intactPsychiatry: normal [...] % (Auto) (14 - 44 %) 30.3 Warrick % (Auto) (4 - 13 %) 10.8 Eos % (Auto) (0 - 6 %) 3.0 Baso % (Auto) (0 - 2 %) 0.3 Neut # (Auto) (2.0 - 7.6 K/mm3) 5.97 Lymph # (Auto) (1.0 - 3.8 K/mm3) 3.28 Warrick # (Auto) (0.1 - 0.8 K/mm3) 1.17 [...] bilaterally. No pneumothorax. Impression By: Bernie Zuniga MD Diagnosis, Assessment Plan Free Text [...] Temp 98.1 10/01 1152 O2 Flow Rate 3.727200 10/01 0800 B/P assess/follow-up: pre-existing hx of HTN at 1500 RPT #:[id number] OF REPORTZGXcjukrplqtbh8108-28-17L86:05:00Z.SVZI73350838- 0488AVAvailable for patient zpuwYRXPNPQFNHOJUT1361-58-47D18:01:02 [facility] 2018-09-30 17:52:00 GFrahyosrmu60848418V7nJfGpkbS5n801Y6nqyg pxIhUZubWMjTzClyK M0ffyQB5yAT3veMvk+PnNJL9cY6772-06-93O01:52:329276-1319 [place] [id number] PATIENT NAME: RACHEAL SABILLON ADMIT DATE: 09/30/18ACCOUNT NO: [id number] ROOM NO: [facility] AGE: 72 REPORT TYPE: ELECTROCARDIOGRAM SEX: F ADMITTING PHYSICIAN:Rohith Kc MD ATTENDING PHYSICIAN:Rohith Kc MD Order:[id number] Reason : post op Test Date/Time Stamp:SatSep [...] MARC at 1807 PATIENT NAME: RACHEAL SABILLON .[id number] [facility] for patient ghcwECWOOJFIOBESAC2511-55-11L35:08:06 [facility] 2018-09-30 15:15:00 SOjvsmvngpe08732671whjVkgiDQrRC8MYhqhnSJ hF42Nzs/p+uBfk8EN JdYWS7NoDqJHgCDAOlsPAzbNas8428-90-16H07:15:989903-[address] [address] PATIENT NAME: RACHEAL SABILLON ADMIT DATE: 09/30/18ACCOUNT NO: [id number] [facility]GE[facility] 72 REPORT TYPE: OPERATIVE REPORT SEX: F ADMITTING PHYSICIAN:Rohith Kc MD ATTENDING PHYSICIAN:Rohith Kc MD OPERATION DATE: 09/30/2018 PREOPERATIVE DIAGNOSIS: Right internal carotid stenosis. POSTOPERATIVE DIAGNOSIS: Right internal carotid stenosis. PROCEDURE: CVP insertion, right carotid endarterectomy, Hemashield patcharterioplasty. SURGEON: Rohith Kc MD AUTOMATION CONTROLS EXPERT: Brisa Moser PA-C ANESTHESIA: General. COMPLICATIONS: None. [...] condition. Dictated By: Rohith Kc MD WT: OP:GERARDO/ISAÍAS/NTSDD: 09/30/2018 15:15:28DT: 09/30/2018 16:14:31Conf#: [id number]/DID#: [id number] cc: Jose Marc MD Authenticated by Rohith Kc MD On 10/10/2018 11:40:08 PM at 2340 PATIENT NAME: RACHEAL SABILLON qbsjyt8255-23-18W47:14:00Z.CCO36624994-2112DGLgjdcizek for patient okxxXGLRDBFDSNXDXD4917-81-42U55:40:46 [facility] 15:11:00 XDpiluvacie17011116QnR/EcESHajDSgOF15f5T IqDKTyrMdFY94/BgE C0rExJVWlGZeM67HdQaMHaHNtB4825-48-22Z75:11:00 [facility] ([facility] CENTERBrief Op NoteREPORT#:[id number] REPORT STATUS: SignedDATE:09/30/18 TIME: 1511 PATIENT: RACHEAL SABILLON UNIT #: [id number]#: [id number] [address]-TMFH: 46 AGE: 72 SEX: F ATTEND: Rohith [...] (in a ), stable at 1514 RPT #:[id number] OF REPORTOPOperative qyzuuk7216-40-16F20:11:00Z.HMXV13503844-6869YGMwhhbsktj for patient ysfyYQIXDWYHNDLGWZ1125-60-71Q91:14:42 [facility] 2018-09-30 15:11:00 DJfrobkdovi86098907A4jagWQZoKkp4P6lY96eA /tQJzxbT2idzcjKCE e2frVf8oLpmfctl5X5gCNGyJKo3298-16-03X97:11:00 [facility] ([facility])Brief Op NoteREPORT#:[id number] REPORT STATUS: SignedDATE:09/30/18 TIME: 151 PATIENT: RACHEAL SABILLON UNIT #: [id number]#: [id number] [address]41-XEIX: 46 AGE: 72 SEX: F ATTEND: Rohith [...] ), stable at 1514 at 1535 RPT #:[id number] OF REPORTOPOperative cgoqlv6447-23-68L33:11:00Z.LVSU02556350-4916CVYpsueapje for patient nmyvHGYRRATBKSRTPJ1319-64-12J41:35:18 [facility] 2018-09-29 12:39:00 HYnfxypyynw72850100aJUeSrDXGkQVjsAVYJLpP dPxzOC015RB8P7f3Q amVVHGL2jHJl4EGwIc0Yt/PnmU2114-87-52S50:39:396331-76[address] [place] [address] PATIENT NAME: RACHEAL SABILLON ADMIT DATE: ACCOUNT NO: [id number] ROOM NO: AGE: 72 REPORT TYPE: ELECTROCARDIOGRAM SEX: F ADMITTING PHYSICIAN:Rohith Kc MD ATTENDING PHYSICIAN:Rohith Kc MD Order:[id number] Reason : PRE-OP Test Date/Time Stamp:SatSep 29 [...] MARC at 1648 PATIENT NAME: RACHEAL SABILLON .[id number] ble for patient pphhMARQLEODTYGRCI5035-58-59Z94:48:25 [facility] 2018-09-20 12:37:00 ITimwkgyizj06835428uACL99eFN33Am/NbLNGma TBtjymgryjJwkc/Qf yFtJl8EMvU1OQWp+LQ/BljnPRm8308-35-46R03:37:489228-[address] [place] [address] PATIENT NAME: RACHEAL SABILLON ADMIT DATE: 09/20/18ACCOUNT NO: [id number] ROOM NO: AGE: 72 REPORT TYPE: CONSULTATION [...] are negative. She did not have an [place] at the timeof the previous stent. She [...] MD WT: CON:Z.MAIA/ISAÍAS/NTSDD: 09/20/2018 12:37:21DT: 09/20/2018 13:42:00Conf#: [id number]/DID#: [id number] Authenticated by Rohith Kc MD On 10/10/2018 11:31:10 PM at 2331 PATIENT NAME: RACHEAL SABILLON :42:00Z.[id number] 8-0312AVAvailable for patient liijRZAHRJJQQRWJQF3015-90-35U55:31:59 [facility] 2018-09-20 10:18:00 XSierrbvfhi17726272ZMondUx/xwYCT5OyhbdG2 RQRaUQsKUd8FW6IGR j/dsvjb6DUAynKon0imOAcY2ym7037-18-32P85:18:376429-[address] [address] PATIENT NAME: RACHEAL SABILLON ADMIT DATE: 09/20/18ACCOUNT NO: [id number] ROOM NO: AGE: 72 REPORT TYPE: eCAROTID ULTRASOUND SEX: F ADMITTING PHYSICIAN: ATTENDING PHYSICIAN:Jose Marc MD *[facility]*[address] [place], [place] [address]Zjkmr Carotid Duplex Study Patient: Racheal Sabillon Date: 09/20/2018 BP: 141 / 72 [id number] 1945 Age: 72 Height: 61 in / 154.9 cmAccession#: [id number] Gender: F Weight: 145 lb / 65.9 kgBMI/BSA: 27.5 kg/m 2 / 1.7 m 2 *Ordering Physician: * Jose Marc MD*Interpreting Physician: * Jose Marc MD*Bulk Delivery Driver: * Ruthann Nogueira RVT Indications: CAD k[place]enai or graft. Study data: Carotid duplex study. Bilateral evaluation with ncmxtxoof2U imaging, color Doppler imaging, and spectral Doppler analysis.Location: Recovery room. Patient status: Outpatient. Patient [facility]number[facility]. Procedure: A vascular evaluation was performed. Imageswere obtained using a [employer] vascular ultrasound machine. Image quality wasadequate. Study [...] 10:18 at 1019 PATIENT NAME: RACHEAL SABILLON mydikqf4106-85-93G53:18:00Z.XQF02988699-5429KYAvvktineo for patient kxvuJQVLKWGPREAPIU9323-93-77N38:19:20 [facility] 2018-09-20 07:38:00 UOeqgkdavra15980408GT5nJUOjoD+CHTljG+chainstitch pants outseamer Lvl9DPeynUJx704jP cKmBTPQKC1MxuyntIKwo2INFY28457-88-09U25:38:039245-3[address] [place] [address] PATIENT NAME: RACHEAL SABILLON ADMIT DATE: 09/20/18ACCOUNT NO: [id number] ROOM NO: AGE: 72 REPORT TYPE: CARDIAC CATHETERIZATION REPORT SEX: F ADMITTING PHYSICIAN: ATTENDING PHYSICIAN:Jose Marc MD PROCEDURE DATE: 09/20/2018 CARDIOVASCULAR PROCEDURE NAIL TECH: Jose Marc MD INDICATION FOR THE PROCEDURE: [...] She did notrequire conscious sedation in the cathode builder. She did have Valium and Benadryl inthe holding area. After local anesthesia, a 6-Malawian sheath was placed in theright common femoral artery using standard techniques and fluoroscopy. Afterheparinization, left coronary angiogram showed calcified coronary system. Shehas a patent circumflex stent in the mid vessel. She has 30% plaquing the firstobtuse marginal and 60% lki-pu-rozgwm disease in the circumflex: The circumflexand the [...] MD WT: CATH:WILFREDO/MANDIE/ANATOLYDD: 09/20/2018 07:38:16DT: 09/20/2018 08:06:11Conf#: [id number]/DID#: [id number] Authenticated by Jose Marc MD On 09/20/2018 08:15:26 AM at 0815 PATIENT NAME: RACHEAL SABILLON Whxr9073-98-47S90:06:00Z.EGW20851095-1066DUCtufnjenn for patient gbyrPADELDPPOHBTUO8614-41-20D33:15:57 [facility] 2018-09-20 06:12:00 QTsultujkjx56047296E8BpVm5TQIccf07jU2JBm 2/k2NtyVKfEKhKIFZ MYyBH8n4I3Qpl7u1xKuF0kPXfi0789-43-60M78:12:642915-9299 [facility] [address] [place] [address] PATIENT NAME: RACHEAL SABILLON ADMIT DATE: 09/20/18ACCOUNT NO: [id number] ROOM NO: AGE: 72 REPORT TYPE: ELECTROCARDIOGRAM SEX: F ADMITTING PHYSICIAN: ATTENDING PHYSICIAN:Jose Marc MD Order:[id number] Reason : PREOP Test Date/Time Stamp:SatSep 20 [...] MARC at 0921 PATIENT NAME: RACHEAL SABILLON .[id number] ble for patient gppuNBQKTIMTTJXVDY5600-54-16W07:22:04 [facility] 2018-09-19 18:46:00 NBnxdppimkh38195358WQYb1zWMjM0joxCUKwCGh uNuFXbO6dEXby/X8O jf6cMv/icnx6LwM+iV1Q6m/rBc0926-34-04W24:46:736749-3026 [facility] [address] [place] [address] PATIENT NAME: RACHEAL SABILLON ADMIT DATE: 09/20/18ACCOUNT NO: [id number] ROOM NO: AGE: 72 REPORT TYPE: HISTORY [...] MD WT: HP:GERARDO/MANDIE/ANATOLYDD: 09/19/2018 18:46:47DT: 09/19/2018 19:09:56Conf#: [id number]/DID#: [id number] and Edited by Joes Marc MD On 09/20/18 6:13:56 AM at 0615 PATIENT NAME: RACHEAL SABILLON and physical misqthspegl9693-72-34Y45:09:00Z.IOJ51605440-0873ICHmkssxf for patient ufpnRZEMLSAIXFXGFC0263-71-53N57:16:10 H [facility]
[2023-09-10 14:29] LABS: Albumin 3.2 g/dL (3.4-5.0); Albumin/Globulin Ratio 0.7 (1.1-1.8); Anion Gap 7.8 mEq/L (5.0-15.0); Bilirubin Total 0.5 mg/dL (0.2-1.0); Globulin 4.4 g/dL (2.3-3.5); Potassium 4.8 mEq/L (3.5-5.1); Protein, Total 7.6 g/dL (6.4-8.2)
[2023-09-10 14:43] LABS: PT Prothrombin Time 11.6 SECONDS (9.5-12.5); Protime INR 1.06
[2023-09-10] MEDS ORDERED: NA CHLORIDE 0.9% 500 ML ONE (14:45)
[2023-09-10 14:47] LABS: Absolute Lymphocytes (CBC) 1.1 K/uL (0.7-4.9); Absolute Monocytes 0.4 K/uL (0.1-1.3); Absolute Neutrophil 5.6 K/uL (1.8-8.0); Basophils % 0.4 % (0-1.3); Eosinophils % 0.2 % (0-4.4); Hematocrit 45.3 % (36.0-45.0); Hemoglobin 14.6 g/dL (12.0-15.0); Lymphocytes % 15.9 % (15.3-44.8); MCH 34.3 pg (27.0-35.0); MCHC 32.2 g/dL (32.0-36.0); MCV 106.6 fL (80-100); MPV 7.3 fL (7.6-11.3); Monocytes % 5.7 % (3.3-12.3); Neutrophils % 77.8 % (41.7-73.7); Nucleated Red Blood Cells % 0.2 % (0-0); Platelets 263 thou/uL (152-406); RBC Red Blood Cell Count 4.25 M/uL (3.86-4.86); Red Cell Distribution Width 16.6 % (12.1-15.2)
--- NOTE | 2023-09-10 15:11 | RAD REPORT ---
EXAM DESCRIPTION: CT - Head Brain Wo Cont - 09/10/2023 2:55 pm CLINICAL HISTORY: Unresponsive COMPARISON: 2020 TECHNIQUE: Computed axial tomography of the head was obtained. IV contrast was not requested. All CT scans are performed using dose optimization technique as appropriate and may include automated exposure control or mA/KV adjustment according to patient size. FINDINGS: An intracranial bleed is not seen The ventricles are normal in caliber No extra-axial fluid collection is noted. Moderate low-density areas within periventricular, deep and subcortical white matter without signific ant change Fluid within the sinuses/ mastoids is not seen. IMPRESSION: Moderate low-density areas within periventricular, deep and subcortical white matter wit hout significant change. This may represent ischemic changes secondary to small vessel disease No acute intracranial abnormality is seen If patient's symptoms persist MRI of the brain would be recommended
--- NOTE | 2023-09-10 15:20 | RAD REPORT ---
EXAM DESCRIPTION: CT - Chest For Pe Angio - 09/10/2023 2:55 pm CLINICAL HISTORY: Hypoxemia unresponsive COMPARISON: May 2023 TECHNIQUE: Dynamically enhanced axial 3 mm thick images of the chest were obtained during administra tion of 100 mL Isovue 370 IV contrast. Coronal and oblique reconstruction images were generated and r eviewed. Exam utilizes a protocol for optimal evaluation of pulmonary arterial tree. Maximum intensity projections 3D imaging was utilized All CT scans are performed using dose optimization technique as appropriate and may include automated exposure control or mA/KV adjustment according to patient size. FINDINGS: A pulmonary embolus is not seen. A thoracic aortic aneurysm is not noted. Small to moderate bilateral pleural effusions with bibasilar atelectasis. Mild additional right lung opacities. A pericardial effusion is not seen. Ascending thoracic aorta 4.3 centimeter Mild COPD 13 millimeter right upper lobe ground-glass nodule unchanged IMPRESSION: Negative for a pulmonary embolism. A small to moderate bilateral pleural effusions with bibasilar atelectasis Mild additional right lung opacities may represent atelectasis, pulmonary edema or less likely pneumo shyla 13 millimeter right upper lobe ground-glass nodule unchanged. Recommend CT chest in 6 months to asses s stability per Fleischner guidelines
--- NOTE | 2023-09-10 15:22 | RAD REPORT ---
EXAM DESCRIPTION: Niall Single View09/10/2023 2:29 pm CLINICAL HISTORY: hypoxemia COMPARISON: May 2023 FINDINGS: Small to moderate bilateral pleural effusions with bibasilar atelectasis Moderate additional right lung opacities may represent pulmonary edema or atelectasis Heart is moderately enlarged
[2023-09-10 15:50] LABS: Troponin High Sensitivity 27.8 pg/mL (<58.9)
--- NOTE | 2023-09-10 16:03 | EDPHYS ---
Physician Documentation [facility] Name: Racheal Dia Age: 77 yrs Sex: Female : 1945 Arrival Date: 09/10/2023 Time: 13:48 Bed 2 Private MD: ED Physician Jorgito Kaur HPI: 09/09 15:16 This 77 yrs old Black Female presents to ER via Wheelchair with complaints of General rn Weakness, Doesn't Feel Right. 15:16 The patient presents with decreased responsiveness. Onset: The symptoms/episode rn began/occurred 2 day(s) ago. Associated signs and symptoms: The patient has no apparent associated signs or symptoms. Current symptoms: In the emergency department the patient's symptoms have improved. The patient has not experienced similar symptoms in the past. Patient brought in emergently by triage nursing staff as patient was completely unresponsive, sonorous respirations, and no other information given. Family reports patient not feeling well for the last 2 or 3 days, cough, generalized weakness and malaise. Patient denies any focal pain. No chest pain or abdominal pain. Reports productive cough and mild shortness of breath. No vomiting or diarrhea. No skin changes.. 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 - Infectious Disease History:: Denies. - Family history:: not pertinent. - Social history:: Smoking status: unknown. - Hospitalizations: : Patient was recently seen at. ROS: 15:16 Constitutional: Negative for fever, chills, and weight loss, Neck: Negative for injury, rn pain, and swelling, Cardiovascular: Negative for chest pain, palpitations, and edema, Respiratory: Positive for cough and shortness of breath Abdomen/GI: Negative for abdominal pain, nausea, vomiting, diarrhea, and constipation, MS/Extremity: Negative for injury and deformity, Skin: Negative for injury, rash, and discoloration, Neuro: Positive for generalized weakness Exam: 15:16 Constitutional: Unresponsive, sonorous respirations, responded to painful stimuli rn Head/Face: Normocephalic, atraumatic. ENT: Dry mucous membranes, no stridor Cardiovascular: Regular rate and rhythm. No pulse deficits. Respiratory: Mild tachypnea with wheezing bilaterally, no retractions Abdomen/GI: Soft, non-tender MS/ Extremity: Pulses equal, no cyanosis. Neurovascular intact. Full, normal range of motion. Equal circumference. Neuro: Unresponsive, sonorous respirations, responsive to painful stimuli. After approximately 15 seconds, patient began to wake up, now talkative and answers questions. 17:20 ECG was reviewed by the Attending Physician. rn Vital Signs: 13:50 BP 128 / 81; Pulse 97; Pulse Ox 27% on R/A; nj1 14:00 BP 168 / 93; Pulse 75; Resp 21; Pulse Ox 100% on Non-rebreather mask; nj1 14:15 BP 139 / 101; Pulse 80; Resp 24; Pulse Ox 90% on 2 lpm NC; nj1 14:30 BP 136 / 84; Pulse 78; Resp 23; Pulse Ox 93% on 4 lpm NC; nj1 15:00 BP 173 / 101; Pulse 86; Resp 20; Pulse Ox 93% on 4 lpm NC; nj1 16:20 BP 164 / 81; Pulse 91; Resp 20; Temp 97.2(TE); Pulse Ox 96% on 6 lpm NC; nj1 17:20 BP 141 / 80; Pulse 90; Resp 21; Pulse Ox 96% on 6 lpm NC; nj1 18:21 BP 135 / 92; Pulse 88; Resp 20; Pulse Ox 93% on 6 lpm NC; nj1 MDM: 13:54 Patient medically screened. rn 15:16 ED course: Patient currently markedly improved, sitting comfortably in bed upright, on rn nasal cannula with oxygen requirement but otherwise denies any symptoms and asking for water.. 15:20 ED course: Oxygen initially while unresponsive patient showed 29% on room air with good rn waveform.. 15:59 Differential Diagnosis: CVA, electrolyte abnormality, pneumonia, UTI, volume depletion, rn pulmonary edema . Data reviewed: vital signs, nurses notes, lab test result(s), EKG, radiologic studies, CT scan, plain films, and as a result, I will admit patient. Consideration of Admission/Observation Patient was admitted/placed on observation. Escalation of care including admission/observation considered. Management of patient was discussed with the following: Hospitalist: . Independent interpretation of the following test(s) in the Emergency Department EKG: See my EKG interpretation above X-Ray: My interpretation is Chest x-ray images show bibasilar opacities with possible pleural effusions per my interpretation. Care significantly affected by the following chronic conditions: Hypertension, Congestive Heart Failure. Counseling: I had a detailed discussion with the patient and/or guardian regarding the historical points, exam findings, and any diagnostic results supporting the discharge/admit diagnosis, lab results, radiology results, the need for further work-up and treatment in the hospital. ED course: I personally spent 35 minutes engaged in work directly related to the individual patient's care. This does not include any time spent performing procedures. The patient has been deemed critically ill because of unresponsive presentation requiring immediate care and evaluation, stabilization and extreme hypoxemic episode requiring supplemental oxygen and close monitoring. Also had to review several previous visits to piece together her past medical history and medication.. 09/09 13:55 Order name: Blood Culture Adult (2) 09/09 13:55 Order name: CBC with Diff; Complete Time: 15:15 09/09 13:55 Order name: CMP; Complete Time: 14:32 09/09 13:55 Order name: Lactate w/ 2H reflex if indic.; Complete Time: 14:32 09/09 13:55 Order name: Protime (+inr) rn 09/09 13:55 Order name: Ptt, Activated rn 09/09 13:55 Order name: Urinalysis w/ reflexes rn 09/09 14:33 Order name: SARS-COV-2 RT PCR; Complete Time: 15:53 09/09 15:16 Order name: Glucose, Ancillary Testing; Complete Time: 15:16 [facility] 09/09 15:25 Order name: BNP; Complete Time: 15:53 09/09 15:25 Order name: Troponin High Sensitivity; Complete Time: 15:53 09/09 16:35 Order name: Urinalysis w/ reflexes EDCT 09/09 16:35 Order name: Basic Metabolic Panel EDCT 09/09 16:35 Order name: Basic Metabolic Panel EDCT 09/09 16:35 Order name: CBC with Automated Diff EDCT 09/09 16:35 Order name: CBC with Automated Diff [facility] 09/09 16:35 Order name: Magnesium EDCT 09/09 16:35 Order name: Magnesium EDCT 09/09 17:00 Order name: Lactate w/ 2H reflex if indic. EDMS 09/09 17:36 Order name: Lactate Sepsis 2 HR Follow-up [facility] 09/09 13:55 Order name: Chest Single View XRAY; Complete Time: 15:25 09/09 13:55 Order name: CT Head Brain wo Cont; Complete Time: 15:15 09/09 13:55 Order name: CT Chest For PE Angio; Complete Time: 15:25 09/09 16:35 Order name: Echo with Doppler [facility] 09/09 16:31 Order name: CONS Physician Consult [facility] 09/09 16:35 Order name: Physical Therapy Consult [facility] 09/09 13:55 Order name: Accucheck; Complete Time: 14:05 09/09 13:55 Order name: Cardiac monitoring; Complete Time: 14:05 09/09 13:55 Order name: EKG - Nurse/Tech; Complete Time: 14:05 09/09 13:55 Order name: IV Saline Lock - Large Bore; Complete Time: 14:05 09/09 13:55 Order name: Labs collected and sent; Complete Time: 14:05 09/09 13:55 Order name: O2 Per Protocol; Complete Time: 14:05 09/09 13:55 Order name: O2 Sat Monitoring; Complete Time: 14:05 09/09 13:55 Order name: Vital Signs; Complete Time: 14:05 09/09 15:48 Order name: Labs - recollect needed: please recollect blue top; Complete Time: 16:11 [facility] 09/09 17:36 Order name: Darya; Complete Time: 17:36 nj1 EC:20 Rate is 77 beats/min. Rhythm is regular. QRS [place] is Normal. NC interval is normal. QRS rn interval is normal. QT interval is normal. No Q waves. T waves are Normal. No ST changes noted. Clinical impression: Normal ECG. Interpreted by me. Reviewed by me. Administered Medications: 15:00 Drug: NS 0.9% IV 500 ml IV at bolus once Route: IV; Rate: bolus; Site: right forearm; nj1 16:00 Follow up: Response: No adverse reaction; IV Status: Completed infusion; IV Intake: nj1 500ml 16:40 Drug: Rocephin IV 1 grams IV at calculated rate once; Given slow IV push per pharmacy nj1 instructions Route: IV; Rate: calculated rate; Site: right forearm; 17:00 Follow up: Response: No adverse reaction; IV Status: Completed infusion; IV Intake: [id number] 18:22 Follow up: Response: No adverse reaction nj1 16:40 Drug: Levalbuterol Inhalation 1.25 mg Inhalation once Route: Inhalation; nj1 17:00 Follow up: Response: No adverse reaction nj1 17:10 Drug: Zithromax IVPB 500 mg IVPB once over 1 hrs; mix in 250 mL NS Route: IVPB; Infused nj1 Over: 1 hrs; Site: right forearm; 18:20 Follow up: Response: No adverse reaction; IV Status: Completed infusion; IV Intake: nj1 250ml Disposition: 15:59 Critical Care:. rn Disposition Summary: 09/10/23 16:02 Hospitalization Ordered Notes: Hospitalization Status: Inpatient Admission rn Provider: Lance Carrasco rn Condition: Stable rn Problem: new rn Symptoms: have improved rn Bed/Room Type: Standard rn Location: Telemetry/MedSurg (Inpatient)(09/10/23 18:08) [facility] Room Assignment: [facility](09/10/23 18:08) [facility] Diagnosis - Hypoxemia rn - Altered mental status, unspecified rn - Pneumonia, unspecified organism rn - Pleural effusion, not elsewhere classified rn Forms: - Medication Reconciliation Form rn - SBAR form rn - Leadership Thank You Letter burn crew member time excluding procedures: 15:59 Critical care time: Bedside Care: 35 minutes. Total time: 35 minutes rn Signatures: Dispatcher [employer] EDMS Jorgtio Kaur MD MD rn Martinez, Eric em1 Javier Martino, RN RN juan1 Boris Mark, RN RN 1 Marissa Medina, RN RN nj1 Corrections: (The following items were deleted from the chart) 13:56 13:56 BLOOD CULTURE*+BA.LAB.BRZ ordered. EDMS EDMS 13:56 13:56 CBC+H.LAB.BRZ ordered. EDMS EDMS 13:56 13:56 COMPREHENSIVE METABOLIC PANEL+C.LAB.BRZ ordered. EDMS EDMS 13:56 13:56 LACTATE+C.LAB.BRZ ordered. EDMS EDMS 13:56 13:56 PROTIME (+INR)+COAG.LAB.BRZ ordered. EDMS EDMS 13:56 13:56 PTT, ACTIVATED+COAG.LAB.BRZ ordered. EDMS EDMS 13:56 13:56 Urinalysis+U.LAB.BRZ ordered. EDMS EDMS 13:56 13:56 Chest Single View+RAD.RAD.BRZ ordered. EDMS EDMS 13:56 13:56 Head Brain Wo Cont+CT.RAD.BRZ ordered. EDMS EDMS 13:56 13:56 Chest For PE Angio+CT.RAD.BRZ ordered. EDMS EDMS 17:16 16:02 Telemetry/MedSurg (Inpatient) rn em1 17:16 16:02 rn em1 18:08 17:16 [facility] ER HOLD em1 ja1 18:08 17:16 ERHOLD- em1 ja1
--- NOTE | 2023-09-10 16:03 | ER ---
Nurse's Notes [facility] Name: Racheal Dia Age: 77 yrs Sex: Female : 1945 Arrival Date: 09/10/2023 Time: 13:48 Bed 2 Private MD: Diagnosis: Hypoxemia;Altered mental status, unspecified;Pneumonia, unspecified organism;Pleural effusion, not elsewhere classified Presentation: 09/09 13:57 Coronavirus screen:. Initial Sepsis Screen: Does the patient meet any 2 criteria? No. ll1 Patient's initial sepsis screen is negative. Does the patient have a suspected source of infection? No. Patient's initial sepsis screen is negative. Risk Assessment: Do you want to hurt yourself or someone else? Patient reports no desire to harm self or others. 13:57 Acuity: AISHA 2 1 13:57 Method Of Arrival: Wheelchair [facility] 14:00 Chief complaint: Patient states: Pt states she felt she was going to pass out while in [facility] the waiting room. Sister/brother state that she was complaining of generalized weakness, had told them she may need oxygen again and that's why they brought her here. 14:00 Ebola Screen: Patient denies travel to an Ebola-affected area in the 21 days before [facility] illness onset. Onset of symptoms was August 2023. 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 - Infectious Disease History:: Denies. - Family history:: not pertinent. - Social history:: Smoking status: unknown. - Hospitalizations: : Patient was recently seen at. Screenin:55 [facility] ED Fall Risk Assessment (Adult) History of falling in the last 3 months, [facility] including since admission No falls in past 3 months (0 pts) Confusion or Disorientation No (0 pts) Intoxicated or Sedated No (0 pts) Impaired Gait No (0 pts) Mobility Assist Device Used No (0 pt) Altered Elimination No (0 pt) Score/Fall Risk Level 0 - 2 = Low Risk Oriented to surroundings, Maintained a safe environment, Hourly rounding (assess needs \T\ fall precautionary measures) done. Abuse screen: Denies threats or abuse. Denies injuries from another. Nutritional screening: No deficits noted. Tuberculosis screening: No symptoms or risk factors identified. Assessment: 13:50 Neuro: Level of Consciousness is unresponsive. nj1 14:00 General: Appears in no apparent distress. comfortable, Behavior is calm, cooperative, nj1 appropriate for age. 14:00 Pain: Denies pain. Neuro: Level of Consciousness is awake, alert, obeys commands, nj1 Oriented to person, place, situation, Reports weakness. Cardiovascular: Patient's skin is warm and dry. Respiratory: Airway is patent Respiratory effort is even, unlabored, Breath sounds are diminished bilaterally. 15:00 Reassessment: Patient appears in no apparent distress at this time. Patient and/or nj1 family updated on plan of care and expected duration. Pain level reassessed. Patient is alert, oriented x 3, equal unlabored respirations, skin warm/dry/pink. 15:50 Reassessment: After patient assisted with bedpan, patient's O2 sat decreased to 78% on cm10 4L NC. O2 increased to 6L and patient's O2 sat improved to 94%. Dr. Kaur made aware. 17:20 Reassessment: Patient appears in no apparent distress at this time. Patient and/or nj1 family updated on plan of care and expected duration. Pain level reassessed. Patient is alert, oriented x 3, equal unlabored respirations, skin warm/dry/pink. 18:21 Reassessment: Patient appears in no apparent distress at this time. Patient and/or nj1 family updated on plan of care and expected duration. Pain level reassessed. Patient is alert, oriented x 3, equal unlabored respirations, skin warm/dry/pink. Vital Signs: 13:50 BP 128 / 81; Pulse 97; Pulse Ox 27% on R/A; nj1 14:00 BP 168 / 93; Pulse 75; Resp 21; Pulse Ox 100% on Non-rebreather mask; nj1 14:15 BP 139 / 101; Pulse 80; Resp 24; Pulse Ox 90% on 2 lpm NC; nj1 14:30 BP 136 / 84; Pulse 78; Resp 23; Pulse Ox 93% on 4 lpm NC; nj1 15:00 BP 173 / 101; Pulse 86; Resp 20; Pulse Ox 93% on 4 lpm NC; nj1 16:20 BP 164 / 81; Pulse 91; Resp 20; Temp 97.2(TE); Pulse Ox 96% on 6 lpm NC; nj1 17:20 BP 141 / 80; Pulse 90; Resp 21; Pulse Ox 96% on 6 lpm NC; nj1 18:21 BP 135 / 92; Pulse 88; Resp 20; Pulse Ox 93% on 6 lpm NC; nj1 ED Course: 13:49 Arm band placed on Patient placed in an exam room, on a stretcher. ll1 13:50 Patient arrived in ED. mg5 13:54 Jorgito Kaur MD is Attending Physician. rn 13:55 Inserted saline lock: 18 gauge in right forearm, using aseptic technique. Blood nj1 collected. 13:58 Triage completed. ll1 14:00 Client placed on continuous cardiac and pulse oximetry monitoring. NIBP monitoring nj1 applied. monitoring and evaluation advisor on. 14:05 Blood Culture Adult (2) Sent. ko1 14:05 CBC with Diff Sent. ko1 14:05 CMP Sent. ko1 14:05 Lactate w/ 2H reflex if indic. Sent. ko1 14:05 Protime (+inr) Sent. ko1 14:05 Ptt, Activated Sent. ko1 14:10 Patient has correct armband on for positive identification. Bed in low position. Call nj1 light in reach. Side rails up X 1. Adult w/ patient. Provided Education on: call light, fall precautions. 14:15 Inserted saline lock: 20 gauge in left forearm, using aseptic technique. nj1 14:29 Chest Single View XRAY In Process Unspecified. EDMS 14:32 Notified ED physician of a critical lab result(s). Lactate 3.1. nj1 14:35 Marissa Medina, RN is Primary Nurse. nj1 14:57 CT Head Brain wo Cont In Process Unspecified. EDMS 14:57 CT Chest For PE Angio In Process Unspecified. EDMS 15:43 Assisted with bedpan. cm10 16:01 Lance Carrasco MD is Hospitalizing Provider. rn 17:15 Notified ED physician of other desaturates every time patient uses bedpan. Orders to nj1 insert spencer cath. 17:25 Spencer cath inserted, using sterile technique, 16 Fr., by mi, balloon inflated, to nj1 gravity drainage, urine specimen collected. 18:20 No provider procedures requiring assistance completed. Patient admitted, IV remains in nj1 place. Administered Medications: 15:00 Drug: NS 0.9% IV 500 ml IV at bolus once Route: IV; Rate: bolus; Site: right forearm; nj1 16:00 Follow up: Response: No adverse reaction; IV Status: Completed infusion; IV Intake: nj1 500ml 16:40 Drug: Rocephin IV 1 grams IV at calculated rate once; Given slow IV push per pharmacy nj1 instructions Route: IV; Rate: calculated rate; Site: right forearm; 17:00 Follow up: Response: No adverse reaction; IV Status: Completed infusion; IV Intake: [id number] 18:22 Follow up: Response: No adverse reaction nj1 16:40 Drug: Levalbuterol Inhalation 1.25 mg Inhalation once Route: Inhalation; nj1 17:00 Follow up: Response: No adverse reaction nj1 17:10 Drug: Zithromax IVPB 500 mg IVPB once over 1 hrs; mix in 250 mL NS Route: IVPB; Infused nj1 Over: 1 hrs; Site: right forearm; 18:20 Follow up: Response: No adverse reaction; IV Status: Completed infusion; IV Intake: nj1 250ml Medication: 18:21 VIS not applicable for this client. nj1 Intake: 16:00 IV: 500ml; Total: 500ml. nj1 17:00 IV: 10ml; Total: 510ml. nj1 18:20 IV: 250ml; Total: 760ml. nj1 Outcome: 16:02 Decision to Hospitalize by Provider. rn 18:20 Admitted to Med/surg accompanied by tech, via stretcher, room 231, with oxygen, nj1 18:20 Condition: stable 18:20 Instructed on the need for admit, 19:17 Patient left the ED. nj1 Signatures: Dispatcher [employer] EDMS Jorgito Kaur MD MD rn Lewis, Lynsay, RN RN ll1 Ruthann Barnhart RN RN Marissa Tenorio RN RN [email or web address] Yajaira Givens RN RN Jennifer Keen mg5 Corrections: (The following items were deleted from the chart) 16:35 16:20 BP 124 / 88; Pulse 76bpm; Resp 20bpm; Pulse Ox 92% RA; Temp 97.3F Temporal; nj1 nj1
--- NOTE | 2023-09-10 16:28 | P.HP ---
Certification for Inpatient Patient admitted to: Observation Patient will require the following post-hospital care: Home Health Services Practitioner: I am a practitioner with admitting privileges, knowledge of patient current condition, hospital course, and medical plan of care. Services: Services provided to patient in accordance with Admission requirements found in Title 42 Section 412.3 of the Code of Federal Regulations <Apple Ingram - Last Filed: 09/10/23 17:02> Patient History Date of Service: 09/10/23 Reason for admission: Hypoxia History of Present Illness: 77-year-old -Turkmen female with a past medical history CHF; Hypercholesterolemia; Hypertension presents to the emergency room with lethargy. Reports symptoms started 2 days ago. ER evaluation patient was hypoxic. O2 sat 28%. She reports nonproductive cough, no reported fever, no reported chest pain, edema, dizziness, plan to admit for acute hypoxic respiratory failure, Altered mental status, unspecified, Pneumonia, unspecified organism, Pleural effusion, not elsewhere classified pulmonary to consult, ER evaluation P 128 / 81; Pulse 97; Pulse Ox 27% on R/A; - Past Medical/Surgical History Diabetic: No -: CHF -: HTN -: Hypothyroidism -: CAD -: HLD -: syphilis -: Splenectomy -: PTCA 2015 -: endarterectomy Psychosocial/ Personal History: Sexual history: -patient states she was last sexually active about 3 years ago-reports 1 partner, her . Does state that her had multiple sexual partners and she is unaware of how many sexual partners he had or if he was ever diagnosed or showed symptoms of any sexually transmitted diseases. -patient reports a total of 3 sexual partners within her lifetime. -patient has 2 children, 1st with no complications or no signs of congenital syphilis. -patient states that she did not always use protection with her sexual partners. -patient denies ever being diagnosed with any other sexually transmitted diseases such as gonorrhea chlamydia. -patient has never been tested for HIV or any other sexually transmitted diseases. - Family History Mother -: Hypertension, Cancer Notes: Jaw cancer Father -: Hypertension - Social History Smoking Status: Former smoker Alcohol use: No CD- Drugs: No Caffeine use: Yes <Apple Ingram - Last Filed: 09/10/23 17:02> Date of Service: 09/10/23 <Goyo Magdaleno - Last Filed: 10/01/23 17:40> Allergies No Known Allergies Allergy (Verified 06/17/19 16:51) Home Medications: Aspirin Chewable [Aspirin Chewable*] 1 tab PO DAILY 06/17/19 Atorvastatin Calcium 40 mg PO DAILY 06/17/19 Clopidogrel Bisulfate [Plavix*] 75 mg PO DAILY 06/17/19 Docusate [Colace Cap*] 100 mg PO BID cap 06/21/19 Levothyroxine [Synthroid*] 1 tab PO DAILY 09/28/20 Metoprolol Tartrate 50 mg PO DAILY 09/28/20 Amlodipine [Norvasc*] 5 mg PO DAILY 06/11/23 Losartan Potassium [Cozaar] 25 mg PO DAILY 06/11/23 Polyethyl Gly 3350 [Glycolax*] 17 gm PO PRN PRN 06/11/23 Albuterol Neb [Proventil 0.083% Neb Soln] 2.5 mg NEB Q8H #60 amp 06/12/23 Azithromycin Tab [Zithromax*] 250 mg PO DAILY #4 tab 06/12/23 Cefdinir [Cefdinir*] 300 mg PO BID #20 cap 06/12/23 Fluticasone/Umeclidin/Vilanter [Trelegy Ellipta 200-62.5-25] 1 each IH BID #1 inh 06/12/23 Guaifen W/Codeine Syrup [ROBITUSSIN A-C Syrup*] 10 ml PO Q12HP PRN #150 ml 06/12/23 Nebulizer 1 each NEB DAILY #1 ea 06/12/23 Nebulizer Accessories [Aeroneb Go] 1 each NEB DAILY #1 kit 06/12/23 predniSONE [Prednisone*] 20 mg PO BID #20 tab 06/12/23 Arformoterol Tartrate [Brovana] 15 mcg NEB BIDRESP #60 vial.neb 09/12/23 Furosemide [Lasix] 20 mg PO DAILY #30 tab 09/12/23 Ipratropium Neb [Atrovent*] 0.5 mg NEB [id number] PRN #60 amp 09/12/23 Spironolactone [Aldactone*] 25 mg PO DAILY #30 tab 09/12/23 Review of Systems per HPI <Apple Ingram - Last Filed: 09/10/23 17:02> Physical Examination - Physical Exam General: Alert, Oriented x2, Mild distress HEENT: Atraumatic, Normocephalic Neck: Supple, 2+ carotid pulse no bruit Respiratory: Normal air movement, Diminished Cardiovascular: Normal pulses, Regular rate/rhythm Capillary refill: <2 Seconds Gastrointestinal: Normal bowel sounds, Soft and benign Musculoskeletal: No clubbing, No swelling Integumentary: No breakdown, No significant lesion Neurological: Normal speech, Normal strength at 5/5 x4 extr - Studies Laboratory Data (last 24 hrs) 09/10/23 09/10/23 13:55 13:55 WBC 7.20 Hgb 14.6 Hct 45.3 H Plt Count 263 Sodium 137 Potassium 4.8 BUN 17 Creatinine 1.26 H Glucose 152 H Total Bilirubin 0.5 AST 39 H ALT 36 Alkaline Phosphatase 98 <Apple Ingram - Last Filed: 09/10/23 17:02> Assessment and Plan - Plan Assessment plan Acute hypoxic respiratory failure secondary to pneumonia Bilateral pleural effusions Lactic acidosis Pulmonary consult, O2 2 L keep sats greater than 90%, Nebulizers, steroids, resume home inhalers, resents to the emergency room with lethargy. Reports symptoms started 2 days ago. ER evaluation patient was hypoxic. O2 sat 28%. She reports nonproductive cough, ER evaluation P 128 / 81; Pulse 97; Pulse Ox 27% on R/A; PT eval for DME needs BNP 978, trend BMP-Lasix ordered x 1 troponin normal lactic acidosis lactate 3.1 trend lactic, IV azithromycin, ceftriaxone CT of the chest abdomen pelvis MPRESSION: Negative for a pulmonary embolism. A small to moderate bilateral pleural effusions with bibasilar atelectasis Mild additional right lung opacities may represent atelectasis, pulmonary edema or less likely [id number] millimeter right upper lobe ground-glass nodule unchanged. Recommend CT chest in 6 months to assess stability per Fleischner guidelines Altered mental status likely secondary to acute hypoxic-improved with oxygen saturation CT of the head no acute abnormality History CHF Hypercholesterolemia Hypertension Telemetry, echo ordered, IV Lasix, Fluid restriction, Full code Cardiac diet SCDs Disposition Home with home health, eval for home O2, Discharge Plan: Home - Advance Directives Does patient have a Living Will: No Does patient have a Durable POA for Healthcare: No - Code Status/Comfort Care Code Status: Full Code Critical Care: No Time Spent Managing Pts Care (In Minutes): 55 <Apple Ingram - Last Filed: 09/10/23 17:02> Date of Service: 09/10/23 Patient was seen and examined. Events of the last 24 hours have been noted. Spoke with with IRVING regarding patient's clinical picture after evaluating and examining the patient independently. I performed a substantial part of the MDM during this patient's care today. I personally made or approved the documented management plan and acknowledge its risk of complications. I agree with the findings and documentation provided in the IRVING's notes. <Goyo Magdaleno - Last Filed: 10/01/23 17:40>
[2023-09-10] MEDS ORDERED: ALBUTEROL 2.5 MG/3 ML NEB SOL NEB PRN (16:29)
[2023-09-10] MEDS ORDERED: ACETAMINOPHEN 500 MG TAB PO PRN (16:29)
[2023-09-10] MEDS ORDERED: ONDANSETRON 4 MG/2 ML VIAL IV PRN (16:29)
[2023-09-10] MEDS ORDERED: IPRATROPIUM BROM 0.5MG/2.5ML NEB PRN (16:29)
[2023-09-10] MEDS: AZITHROMYCIN IV 500 MG in NA CHLORIDE 0.9% 250 ML IVPB SCH (16:34)
[2023-09-10] MEDS: CEFTRIAXONE 1,000 MG in NA CHLORIDE 0.9% 50 ML IVPB SCH (16:34)
[2023-09-10] MEDS ORDERED: CEFTRIAXONE 1000 MG/VIAL ONE (16:34)
[2023-09-10] MEDS ORDERED: LEVALBUTEROL 1.25 MG/3 ML NEB ONE (16:35)
[2023-09-10] MEDS ORDERED: AZITHROMYCIN 500 MG INJ IVPB ONE (16:35)
[2023-09-10] MEDS ORDERED: NA CHLORIDE 0.9% 250 ML ONE (16:35)
[2023-09-10] MEDS: FUROSEMIDE 40 MG/4 ML VIAL IV ONE (16:39)
[2023-09-10 17:45] LABS: Specific Gravity 1.027 (1.005-1.030); Sqamous Epithelial <5 /HPF (None Seen); Urine Bacteria None Seen /HPF (<20); Urine Bilirubin NEGATIVE (Negative); Urine Blood Negative (Negative); Urine Clarity Clear (Clear); Urine Color Light-Yellow (Yellow); Urine Culture Reflex Order NOT NEEDED; Urine Glucose NEGATIVE (Negative); Urine Ketones NEGATIVE (Negative); Urine Microscopic Reflex YN ORDER UMIC; Urine Nitrite NEGATIVE (Negative); Urine Protein NEGATIVE (Negative); Urine RBC <5 /HPF (None Seen); Urine Urobilinogen Normal (Normal); Urine WBC <5 /HPF (<5)
[2023-09-10 17:50] LABS: PTT, Activated Partial Thromb 20.5 SECONDS (24.3-36.9)
[2023-09-10] MEDS: METHYLPREDNISOLONE 125 MG INJ IV SCH (18:00)
[2023-09-10 22:43] VITALS: BMI 25.2
[2023-09-11 04:35] LABS: Absolute Lymphocytes (CBC) 0.5 K/uL (0.7-4.9); Absolute Monocytes 0.1 K/uL (0.1-1.3); Absolute Neutrophil 4.3 K/uL (1.8-8.0); Basophils % 0.3 % (0-1.3); Hematocrit 39.3 % (36.0-45.0); Lymphocytes % 9.7 % (15.3-44.8); MCH 34.7 pg (27.0-35.0); MCHC 33.1 g/dL (32.0-36.0); MCV 104.7 fL (80-100); MPV 6.8 fL (7.6-11.3); Monocytes % 1.6 % (3.3-12.3); Neutrophils % 88.4 % (41.7-73.7); Nucleated Red Blood Cells % 0.4 % (0-0); Platelets 263 thou/uL (152-406); RBC Red Blood Cell Count 3.76 M/uL (3.86-4.86); Red Cell Distribution Width 15.7 % (12.1-15.2)
[2023-09-11 04:50] LABS: Anion Gap 4.8 mEq/L (5.0-15.0); Magnesium 1.8 mg/dL (1.6-2.4); Potassium 3.8 mEq/L (3.5-5.1)
[2023-09-11 05:25] LABS: Band Neutrophils 6 % (0-1); Differential Total Cells Count 100; Lymphocytes 15 % (15-42); Monocytes 1 % (0-10); Segmented Neutrophils 78 % (40-80)
[2023-09-11 05:26] LABS: Blood Morphology Comment NOTED (NOT SEEN); Platelet Estimate ADEQ; Polychromasia 1+
--- NOTE | 2023-09-11 08:18 | P.PN ---
Subjective Date of Service: 09/12/23 Chief Complaint: Hypoxia Admitted for hypoxia, confused on arrival to the ER, improved with oxygen saturation O2 4 L 94% Physical Exam General: Alert, Oriented x2, Mild distress HEENT: Atraumatic, Normocephalic Neck: Supple, 2+ carotid pulse no bruit Respiratory: Normal air movement, Diminished Cardiovascular: Normal pulses, Regular rate/rhythm Capillary refill: <2 Seconds Gastrointestinal: Normal bowel sounds, Soft and benign Musculoskeletal: No clubbing, No swelling Integumentary: No breakdown, No significant lesion Neurological: Normal speech, Normal strength at 5/5 x4 extr <Apple Ingram - Last Filed: 09/12/23 20:23> Date of Service: 09/11/23 <Goyo Magdaleno - Last Filed: 10/01/23 17:40> Review of Systems Per HPI <Apple Ingram - Last Filed: 09/12/23 20:23> Physical Examination - Vital Signs Temperature: 97.6 F Blood Pressure: 142/84 Pulse: 77 Respirations: 18 Pulse Ox (%): 94 - Studies Laboratory Data (last 24 hrs) 09/10/23 09/10/23 13:55 13:55 WBC 7.20 Hgb 14.6 Hct 45.3 H Plt Count 263 Sodium 137 Potassium 4.8 BUN 17 Creatinine 1.26 H Glucose 152 H Total Bilirubin 0.5 AST 39 H ALT 36 Alkaline Phosphatase 98 <Apple Ingram - Last Filed: 09/12/23 20:23> Assessment And Plan - Plan Assessment plan Acute hypoxic respiratory failure secondary to pneumonia Bilateral pleural effusions Lactic acidosis Pulmonary consult, O2 2 L keep sats greater than 90%, Nebulizers, steroids, resume home inhalers, resents to the emergency room with lethargy. Reports symptoms started 2 days ago. ER evaluation patient was hypoxic. O2 sat 28%. She reports nonproductive cough, ER evaluation P 128 / 81; Pulse 97; Pulse Ox 27% on R/A; PT eval for DME needs BNP 978, trend BMP-Lasix ordered x 1 troponin normal lactic acidosis lactate 3.1 trend lactic, IV azithromycin, ceftriaxone CT of the chest abdomen pelvis MPRESSION: Negative for a pulmonary embolism. A small to moderate bilateral pleural effusions with bibasilar atelectasis Mild additional right lung opacities may represent atelectasis, pulmonary edema or less likely [id number] millimeter right upper lobe ground-glass nodule unchanged. Recommend CT chest in 6 months to assess stability per Fleischner guidelines Altered mental status likely secondary to acute hypoxic-improved with oxygen saturation CT of the head no acute abnormality History CHF Hypercholesterolemia Hypertension Telemetry, echo ordered, IV Lasix, Fluid restriction, Full code Cardiac diet SCDs Disposition Home with home health, eval for home O2, Discharge Plan: Home Critical Care: No Time Spent Managing PTS Care (In Minutes): 35 <Apple Ingram - Last Filed: 09/12/23 20:23> Date of Service: 09/11/23 Patient was seen and examined. Events of the last 24 hours have been noted. Spoke with with IRVING regarding patient's clinical picture after evaluating and examining the patient independently. I performed a substantial part of the MDM during this patient's care today. I personally made or approved the documented management plan and acknowledge its risk of complications. I agree with the findings and documentation provided in the IRVING's notes. <Goyo Magdaleno - Last Filed: 10/01/23 17:40>
--- NOTE | 2023-09-11 09:36 | P.CNS ---
Date of Consult: 09/11/23 Reason for Consult: Respiratory distress Chief Complaint: Hypoxia History of Present Illness: Patient is 77 years of age admitted with acute onset of shortness of breath worse for the past 2 to 3 days he was admitted with hypoxemia denies any fever or chills Allergies No Known Allergies Allergy (Verified 06/17/19 16:51) Home Medications: Aspirin Chewable [Aspirin Chewable*] 1 tab PO DAILY 06/17/19 Atorvastatin Calcium 40 mg PO DAILY 06/17/19 Clopidogrel Bisulfate [Plavix*] 75 mg PO DAILY 06/17/19 Docusate [Colace Cap*] 100 mg PO BID cap 06/21/19 Levothyroxine [Synthroid*] 1 tab PO DAILY 09/28/20 Metoprolol Tartrate 50 mg PO DAILY 09/28/20 Amlodipine [Norvasc*] 5 mg PO DAILY 06/11/23 Losartan Potassium [Cozaar] 25 mg PO DAILY 06/11/23 Polyethyl Gly 3350 [Glycolax*] 17 gm PO PRN PRN 06/11/23 Albuterol Neb [Proventil 0.083% Neb Soln] 2.5 mg NEB Q8H #60 amp 06/12/23 Azithromycin Tab [Zithromax*] 250 mg PO DAILY #4 tab 06/12/23 Cefdinir [Cefdinir*] 300 mg PO BID #20 cap 06/12/23 Fluticasone/Umeclidin/Vilanter [Trelegy Ellipta 200-62.5-25] 1 each IH BID #1 inh 06/12/23 Guaifen W/Codeine Syrup [ROBITUSSIN A-C Syrup] 10 ml PO Q12HP PRN #150 ml 06/12/23 Nebulizer 1 each NEB DAILY #1 ea 06/12/23 Nebulizer Accessories [Aeroneb Go] 1 each NEB DAILY #1 kit 06/12/23 predniSONE [Deltasone] 20 mg PO BID #20 tab 06/12/23 - Past Medical/Surgical History Diabetic: No -: CHF -: HTN -: Hypothyroidism -: CAD -: HLD -: syphilis -: Splenectomy -: PTCA 2015 -: endarterectomy with stents Psychosocial/ Personal History: Sexual history: -patient states she was last sexually active about 3 years ago-reports 1 partner, her . Does state that her had multiple sexual partners and she is unaware of how many sexual partners he had or if he was ever diagnosed or showed symptoms of any sexually transmitted diseases. -patient reports a total of 3 sexual partners within her lifetime. -patient has 2 children, 1st with no complications or no signs of congenital syphilis. -patient states that she did not always use protection with her sexual partners. -patient denies ever being diagnosed with any other sexually transmitted diseases such as gonorrhea chlamydia. -patient has never been tested for HIV or any other sexually transmitted diseases. - Family History Mother Medical History: Hypertension, Cancer Notes: Jaw cancer Father Medical History: Hypertension - Social History Smoking Status: Unknown if ever smoked Alcohol use: Yes CD- Drugs: No Caffeine use: Yes Place of Residence: Home Review of Systems 10-point ROS is otherwise unremarkable General: Weakness Respiratory: Shortness of Breath Physical Examination Temp Pulse Resp BP Pulse Ox 97.6 F 77 18 142/84 H 94 09/11/23 08:18 09/11/23 08:18 09/11/23 08:18 09/11/23 08:18 09/11/23 08:18 General: Alert, In no apparent distress, Oriented x3 Neck: Supple Respiratory: Clear to auscultation bilaterally Cardiovascular: No edema, Regular rate/rhythm, Normal S1 S2 Laboratory Data (last 24 hrs) 09/10/23 09/10/23 13:55 13:55 WBC 7.20 Hgb 14.6 Hct 45.3 H Plt Count 263 Sodium 137 Potassium 4.8 BUN 17 Creatinine 1.26 H Glucose 152 H Total Bilirubin 0.5 AST 39 H ALT 36 Alkaline Phosphatase 98 - Problems (1) Congestive heart failure Current Visit: Yes Status: Acute Plan: Patient is 77 years of age former smoker admitted with acute onset of dyspnea CT scan shows bilateral pleural effusions no evidence of thromboembolism I strongly suspect the patient has congestive heart failure BNP is also elevated echocardiogram is pending continue with IV Lasix there is no evidence of pneumonia DC all antibiotics urinalysis is also negative vital signs oxygenation stable Qualifiers: Heart failure chronicity: unspecified
[2023-09-11] MEDS: ARFORMOTEROL TARTRATE 15 MCG/2 ML VIAL.NEB NEB SCH (10:00)
[2023-09-11] MEDS: FUROSEMIDE 40 MG/4 ML VIAL IV SCH (10:50)
[2023-09-11] MEDS ORDERED: PNEUMOCOCCAL VACCINE 0.5 ML IMVAC ONE (12:00)
--- NOTE | 2023-09-12 09:05 | P.PN ---
Subjective Date of Service: 09/12/23 Chief Complaint: Congestive heart failure Subjective: Improving (Patient is improving doing much better) Review of Systems Unremarkable Physical Examination - Vital Signs Temperature: 98.4 F Blood Pressure: 153/83 Pulse: 83 Respirations: 16 Pulse Ox (%): 96 - Physical Exam General: Alert, In no apparent distress, Oriented x3 Respiratory: Clear to auscultation bilaterally Cardiovascular: No edema, Regular rate/rhythm Assessment And Plan - Current Problems (Diagnosis) (1) Congestive heart failure Current Visit: Yes Status: Acute Plan: Patient is doing much better most likely she has underlying congestive heart failure plan for discharge on low-dose spironolactone 25 mg daily and Lasix 40 mg daily labs reviewed no evidence of sepsis evaluate for home O2 plan for discharge Qualifiers: Heart failure chronicity: unspecified
[2023-09-12 09:13] VITALS: O2SAT 96
[2023-09-12] MEDS: SPIRONOLACTONE 25 MG TABLET PO SCH (11:48)
[2023-09-12] MEDS: MAGNESIUM SULFATE 1 gm IVPB 1 GM/100 ML BAG IV ONE (11:49)
[2023-09-12] MEDS: POTASSIUM 25 MEQ EFFERV TAB PO ONE (11:49)
--- NOTE | 2023-09-12 12:49 | ECHO ---
HEIGHT: 5 ft 0 in WEIGHT: 129 lb 3.2 oz DATE OF STUDY: 09/12/[address]: Apple Ingram ENTEROSTOMAL THERAPY NURSE-Judy 2-DIMENSIONAL: YES M.MODE: YES DOPPLER: YES COLOR FLOW: YES TDS: PORTABLE: YES DEFINITY: BUBBLE STUDY: DIAGNOSIS: SHORTNESS OF BREATH CARDIAC HISTORY: CATHERIZATION: YES SURGERY: NO PROSTHETIC VALVE: NO PACEMAKER: NO MEASUREMENTS (cm) DIASTOLIC (NORMALS) SYSTOLIC (NORMALS) IVSd 1.0 (0.6-1.2) LA Diam 1.6 (1.9-4.0) LVEF 60-65% LVIDd 3.0 (3.5-5.7) LVIDs 2.2 (2.0-3.5) %FS 26% LVPWd 1.0 (0.6-1.2) Ao Diam 2.3 (2.0-3.7) 2 DIMENSIONAL ASSESSMENT: RIGHT ATRIUM: NORMAL LEFT ATRIUM: NORMAL RIGHT VENTRICLE: NORMAL LEFT VENTRICLE: NORMAL TRICUSPID VALVE: TRACE TRICUSPID REGURGITATION MITRAL VALVE: NORMAL PULMONIC VALVE: NORMAL AORTIC VALVE: MILD AORTIC STENOSIS PERICARDIAL EFFUSION: NONE AORTIC ROOT: NORMAL LEFT VENTRICULAR WALL MOTION: NORMAL DOPPLER/COLOR FLOW: GRADE II DIASTOLIC DYSFUNCTION COMMENTS: 1. NORMAL LEFT VENTRICULAR SYSTOLIC FUNCTION, EJECTION FRACTION 60-65%, NORMAL WALL MOTION 2. GRADE II DIASTOLIC DYSFUNCTION 3. MILD AORTIC STENOSIS TECHNOLOGIST: KATHY MUELLER
--- NOTE | 2023-09-12 20:24 | P.DS ---
Admission Date: 09/12/23 Discharge Date: 09/12/23 Reason for Admission: Hypoxia Brief History of Present Illness: 77-year-old -Omani female with a past medical history CHF; Hypercholesterolemia; Hypertension presents to the emergency room with lethargy. Reports symptoms started 2 days ago. ER evaluation patient was hypoxic. O2 sat 28%. She reports nonproductive cough, no reported fever, no reported chest pain, edema, dizziness, plan to admit for acute hypoxic respiratory failure, Altered mental status, unspecified, Pneumonia, unspecified organism, Pleural effusion, not elsewhere classified pulmonary to consult, ER evaluation P 128 / 81; Pulse 97; Pulse Ox 27% on R/A; - Physical Exam General: Alert, Oriented x2, HEENT: Atraumatic, Normocephalic Neck: Supple, 2+ carotid pulse no bruit Respiratory: Normal air movement, Diminished Cardiovascular: Normal pulses, Regular rate/rhythm Capillary refill: <2 Seconds Gastrointestinal: Normal bowel sounds, Soft and benign Musculoskeletal: No clubbing, No swelling Integumentary: No breakdown, No significant lesion Neurological: Normal speech, Normal strength at 5/5 x4 extr Hospital Course: presented with hypoxia. She was noted to have congestive heart failure. Patient is doing much better most likely she has underlying congestive heart failure plan for discharge on low-dose spironolactone 25 mg daily and Lasix 40 mg daily labs reviewed no evidence of sepsis evaluate for home O2 plan for discharge. She was evaluated by Pulmonary prior to discharge. Patient tolerating diet, stable for discharge to home with follow-up appointment with primary care physician. follow up with cardiology after discharge. PROBLEM: hypoxia, pleural effusions, treated with oxygen, diuretics. congestive heart failure Echo NORMAL LEFT VENTRICULAR SYSTOLIC FUNCTION, EJECTION FRACTION 60-65%, NORMAL WALL MOTION 2. GRADE II DIASTOLIC DYSFUNCTION 3. MILD AORTIC STENOSIS Continue home medicines as previously prescribed GOAL: Clear understanding of disease process INSTRUCTIONS: Physician Discharge Instructions: -Follow-up with PCP in 1 to 2 weeks -Please call Dr. Magdaleno at [phone] if any questions regarding hospital stay -Please call nursing station at [phone] if any nursing or medication questions -Return to the emergency room if symptoms worsen Diet: ADA, low sodium Activity: Fall precautions <Apple Ingram - Last Filed: 09/12/23 20:30> Admission Date: 09/10/23 Discharge Date: 09/12/23 Hospital Course: Patient was seen and examined. Events of the last 24 hours have been noted. Spoke with with IRVING regarding patient's clinical picture after evaluating and examining the patient independently. I performed a substantial part of the MDM during this patient's care today. I personally made or approved the documented management plan and acknowledge its risk of complications. I agree with the findings and documentation provided in the IRVING's notes. <Goyo Magdaleno - Last Filed: 10/01/23 17:43> Disposition: ROUTINE DISCHARGE Discharge Condition: GOOD Vital Signs/Physical Exam: Temp Pulse Resp BP Pulse Ox 97.6 F 77 18 142/84 H 94 09/12/23 20:23 09/12/23 20:23 09/12/23 20:23 09/12/23 20:23 09/12/23 20:23 Laboratory Data at Discharge: WBC 4.90 thou/uL (4.3-10.9) 09/11/23 04:15 Hgb 13.0 g/dL (12.0-15.0) D 09/11/23 04:15 Hct 39.3 % (36.0-45.0) 09/11/23 04:15 Plt Count 263 thou/uL (152-406) 09/11/23 04:15 PT 11.6 SECONDS (9.5-12.5) 09/10/23 16:53 INR 1.06 09/10/23 16:53 APTT 20.5 SECONDS (24.3-36.9) L 09/10/23 16:53 Sodium 137 mEq/L (136-145) 09/11/23 04:15 Potassium 3.8 mEq/L (3.5-5.1) D 09/11/23 04:15 BUN 15 mg/dL (7-18) 09/11/23 04:15 Creatinine 0.93 mg/dL (0.55-1.02) 09/11/23 04:15 Glucose 117 mg/dL (74-106) H 09/11/23 04:15 Magnesium 1.8 mg/dL (1.6-2.4) 09/11/23 04:15 Total Bilirubin 0.5 mg/dL (0.2-1.0) 09/10/23 13:55 AST 39 U/L (15-37) H 09/10/23 13:55 ALT 36 U/L (13-56) 09/10/23 13:55 Alkaline Phosphatase 98 U/L (45-117) 09/10/23 13:55 <Apple Ingram - Last Filed: 09/12/23 20:30> Vital Signs/Physical Exam: Temp Pulse Resp BP Pulse Ox 97.6 F 77 18 142/84 H 94 09/12/23 20:23 09/12/23 20:23 09/12/23 20:23 09/12/23 20:23 09/12/23 20:23 Laboratory Data at Discharge: WBC 4.90 thou/uL (4.3-10.9) 09/11/23 04:15 Hgb 13.0 g/dL (12.0-15.0) D 09/11/23 04:15 Hct 39.3 % (36.0-45.0) 09/11/23 04:15 Plt Count 263 thou/uL (152-406) 09/11/23 04:15 PT 11.6 SECONDS (9.5-12.5) 09/10/23 16:53 INR 1.06 09/10/23 16:53 APTT 20.5 SECONDS (24.3-36.9) L 09/10/23 16:53 Sodium 137 mEq/L (136-145) 09/11/23 04:15 Potassium 3.8 mEq/L (3.5-5.1) D 09/11/23 04:15 BUN 15 mg/dL (7-18) 09/11/23 04:15 Creatinine 0.93 mg/dL (0.55-1.02) 09/11/23 04:15 Glucose 117 mg/dL (74-106) H 09/11/23 04:15 Magnesium 1.8 mg/dL (1.6-2.4) 09/11/23 04:15 Total Bilirubin 0.5 mg/dL (0.2-1.0) 09/10/23 13:55 AST 39 U/L (15-37) H 09/10/23 13:55 ALT 36 U/L (13-56) 09/10/23 13:55 Alkaline Phosphatase 98 U/L (45-117) 09/10/23 13:55 <Goyo Magdaleno - Last Filed: 10/01/23 17:43> Diet: Low sodium Activity: Fall precautions Time spent managing pt's care (in minutes): 55 <Apple Ingram - Last Filed: 09/12/23 20:30> <Goyo Magdaleno - Last Filed: 10/01/23 17:43> Home Medications: Aspirin Chewable [Aspirin Chewable*] 1 tab PO DAILY 06/17/19 Atorvastatin Calcium 40 mg PO DAILY 06/17/19 Clopidogrel Bisulfate [Plavix*] 75 mg PO DAILY 06/17/19 Docusate [Colace Cap*] 100 mg PO BID cap 06/21/19 Levothyroxine [Synthroid*] 1 tab PO DAILY 09/28/20 Metoprolol Tartrate 50 mg PO DAILY 09/28/20 Amlodipine [Norvasc*] 5 mg PO DAILY 06/11/23 Losartan Potassium [Cozaar] 25 mg PO DAILY 06/11/23 Polyethyl Gly 3350 [Glycolax*] 17 gm PO PRN PRN 06/11/23 Albuterol Neb [Proventil 0.083% Neb Soln] 2.5 mg NEB Q8H #60 amp 06/12/23 Azithromycin Tab [Zithromax*] 250 mg PO DAILY #4 tab 06/12/23 Cefdinir [Cefdinir*] 300 mg PO BID #20 cap 06/12/23 Fluticasone/Umeclidin/Vilanter [Trelegy Ellipta 200-62.5-25] 1 each IH BID #1 inh 06/12/23 Guaifen W/Codeine Syrup [ROBITUSSIN A-C Syrup*] 10 ml PO Q12HP PRN #150 ml 06/12/23 Nebulizer 1 each NEB DAILY #1 ea 06/12/23 Nebulizer Accessories [Aeroneb Go] 1 each NEB DAILY #1 kit 06/12/23 predniSONE [Prednisone*] 20 mg PO BID #20 tab 06/12/23 Arformoterol Tartrate [Brovana] 15 mcg NEB BIDRESP #60 vial.neb 09/12/23 Furosemide [Lasix] 20 mg PO DAILY #30 tab 09/12/23 Ipratropium Neb [Atrovent*] 0.5 mg NEB [id number] PRN #60 amp 09/12/23 Spironolactone [Aldactone*] 25 mg PO DAILY #30 tab 09/12/23 New Medications: Spironolactone [Aldactone*] 25 mg PO DAILY #30 tab Ipratropium Neb [Atrovent*] 0.5 mg NEB [id number] PRN #60 amp PRN Reason: Shortness Of Breath Arformoterol Tartrate [Brovana] 15 mcg NEB BIDRESP #60 vial.neb Furosemide [Lasix] 20 mg PO DAILY #30 tab Physician Discharge Instructions: -DC IV and DC home -Follow-up with PCP in 1 to 2 weeks -Follow-up with Pulmonary in 1 to 2 weeks -Please call Dr. Magdaleno at [phone] if any questions regarding hospital stay -Please call nursing station at [phone] if any nursing or medication questions -Return to the emergency room if symptoms worsen Home oxygen provided by: [facility] [id number] [place] [address] P: Followup: NONE,NONE [Primary Care Provider] -
[2023-09-12 20:30] VITALS: BP 142/84; TEMP 97.6
--- NOTE | 2023-09-13 17:02 | EKG ---
Test Date: 2023-09-10 Test Time: 13:59:44 Site Auditor: ALP MEASUREMENT RESULTS: Intervals: Rate: 77 DC: 160 QRSD: 72 QT: 356 QTc: 402 [place]: P: 58 DC: 160 QRS: 68 T: 64 INTERPRETIVE STATEMENTS: Normal sinus rhythm Normal ECG Compared to ECG 06/10/2023 12:13:58 No significant changes Electronically Signed On 09-13-23 16:52:16 CDT by Jimi Garrison
== END 2023-09-12 17:00 | disposition home or self-care (01) | DRG 291 ==
LOC: ER 13:48 → ERHOLD 16:28 → 2ND 18:18 → OBSVTOIN 09-12 13:21
PROVIDERS: ADMIT Hospitalist; ATTEND Hospitalist
PROC: 0T9B70Z Drainage of Bladder with Drainage Device, Via Natural or Artificial Opening (ICD-10-PCS; principal; 2023-09-12)
DX: I11.0 Hypertensive heart disease with heart failure (principal); G93.41 Metabolic encephalopathy; I50.31 Acute diastolic (congestive) heart failure; J96.01 Acute respiratory failure with hypoxia; G93.1 Anoxic brain damage, not elsewhere classified; E87.20 Acidosis, unspecified; E03.9 Hypothyroidism, unspecified; E78.00 Pure hypercholesterolemia, unspecified; I25.10 Atherosclerotic heart disease of native coronary artery without angina pectoris; Z95.5 Presence of coronary angioplasty implant and graft; Z90.81 Acquired absence of spleen; Z11.52 Encounter for screening for COVID-19; Z79.82 Long term (current) use of aspirin; Z79.52 Long term (current) use of systemic steroids; Z79.02 Long term (current) use of antithrombotics/antiplatelets; Z79.890 Hormone replacement therapy; Z79.899 Other long term (current) drug therapy; Z87.891 Personal history of nicotine dependence
CPT/HCPCS: 36415; 51702; 70450; 71045; 71275; 80048; 80053; 81001; 82947; 83605; 83735; 83880; 84484; 85025; 85610; 85730; 87040; 87635; 93005; 93306; 96361; 96365; 96367; 97116; 97161; 97530; 99285; G0378; J0696; J1940; J2919; J3475; J7040; J7050; J7605; J7614; Q9967

== ENCOUNTER 2024-02-04 14:25 | Emergency (ER) | payer OTHER ==
--- OUTSIDE RECORDS SUMMARY | 2024-02-04 14:30 | XMS REPORT | Continuity of Care Document ---
Author Name Unknown Address [address] [facility] [address] [place] [address] [facility] thconnect Address [address] [facility] [address] [place] [address] Care Team Providers Care Refractory Manager Name Role Phone Jeremi Alaniz Attending Clinician Unavailable Rohith Kc Attending Clinician UnavailJose Garduno Admitting Clinician Unavailable Payers Payer Name Policy Type Policy Number Effective Date Expirati on Date Source MEDICARE NOVITAS [id number] 2011 00:00:00 [facility] MEDICARE NOVITAS [id number] 2011 00:00:00 [facility] MEDICARE NOVITAS [id number] 2011 00:00:00 [facility] MEDICARE PART A \T\ B [id number] 2011 00:00:00 Problems Condition Name Condition Details Condition Category Status Onset Date Resolution Date Last Treatment Date Treating Clinician Comments Source [id number] Stage 3a chronic kidney disease Problem [facility] [id number] Macrocytic Problem Com [facility] [id number] 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 Problem [facility] [id number] Hypercalce em Problem [facility] [id number] Non-season al allergic rhinitis, unspecifie d trigger Problem [facility] [id number] Constipati on, unspecifie d constipati on type Problem [facility] [id number] GERD without esophagiti s Problem [facility] [id number] Mixed hyperlipid emia Problem [facility] [id number] Chronic diastolic congestive heart failure Problem [facility] [id number] Hypothyroi dism, unspecifie d type Problem [facility] [id number] Paroxysmal atrial fibrillati on Problem [facility] [id number] Essential hypertensi on Problem [facility] [id number] S/P splenectom y Problem [facility] Standard chest X-ray abnormal Abnormal chest x-ray Problem [facility] [id number] 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 Problem [facility] [id number] COPD exacerbati on Problem [facility] [id number] Right upper lobe pulmonary nodule Problem [facility] 25881276 Chronic obstructiv e pulmonary disease, unspecifie d COPD type Problem [facility] [id number] Chronic respirator y failure with hypoxia Problem [facility] [id number] Mild aortic stenosis Problem [facility] Allergies, Adverse Reactions, Alerts Allergy Name Allergy Type Status Severity Reaction(s) Onset Date Inactive Date Treating Clinician Comments Source No Known Allergie s DA Active U 05-04 00:00: 00 [facility] No Known Allergie s DA Active U 05-04 00:00: 00 [facility] No Known Allergie s DA Active U 09-29 00:00: 00 [facility] No Known Allergie s DA Active U 09-29 00:00: 00 [facility] No Known Contrast Allergie s DA Active U 06-12 00:00: 00 [facility] No Known Drug Allergie s DA Active U 06-12 00:00: 00 [facility] No Known Food Allergie s DA Active U 06-12 00:00: 00 [facility] No Known Other Allergie s DA Active U 06-12 00:00: 00 [facility] NO KNOWN ALLERGIE S Drug Class Active [facility] Social History Social Habit Start Date Stop Date Quantity Comments Source History of Tobacco Use [facility] Sex Assigned At [facility] Smoking Status Start Date Stop Date Source Former Smoker 2023-12-12 00:00:00 2023-12-12 00:00:00 [facility] Medications Ordered Medication Name Filled Medication Name Start Date Stop Date Current Medication? Ordering Clinician Indication Dosage Frequency Signature (SIG) Comments Components Source Atorvastati n Calcium 40 MG Atorvastati n Calcium 40 MG No 1{table t} QD Atorvastat in Calcium 40 MG One A Day Women 50 Plus One A Day Women 50 Plus No 1{puff} QD One A Day Women 50 Plus Clopidogrel Bisulfate 75 MG Clopidogrel Bisulfate 75 MG No Clopidogre l Bisulfate 75 MG Docusate Sodium 100 MG Docusate Sodium 100 MG No 1{capsu le_as_n eeded} BID Docusate Sodium 100 MG Potassium Chloride 20 MEQ Potassium Chloride 20 MEQ No 1{packe t_with_ food} QD Potassium Chloride 20 MEQ Metoprolol Tartrate 50 MG Metoprolol Tartrate 50 MG No 1{table t_with_ food} QD Metoprolol Tartrate 50 MG Levothyroxi ne Sodium 100 MCG Levothyroxi ne Sodium 100 MCG No QD Levothyrox ine Sodium 100 MCG Losartan Potassium 25 MG Losartan Potassium 25 MG No 1{table t} QD Losartan Potassium 25 MG Aspirin 81 81 MG Aspirin 81 81 MG No 1{table t} QD Aspirin 81 81 MG predniSONE 20 MG predniSONE 20 MG No 1{table t} QD predniSONE 20 MG Albuterol Sulfate (2.5 MG/3ML) 0.083% Albuterol Sulfate (2.5 MG/3ML) 0.083% No 3{ml_as _needed } QID Albuterol Sulfate (2.5 MG/3ML) 0.083% Cefdinir 300 MG Cefdinir 300 MG No BID Cefdinir 300 MG guaiFENesin -Codeine 200-20 MG/10ML guaiFENesin -Codeine 200-20 MG/10ML No 10{ml_a s_neede d} 6xD guaiFENesi n-Codeine 200-20 MG/10ML Furosemide 20 MG Furosemide 20 MG No 1{table t} QD Furosemide 20 MG Spironolact one 25 MG Spironolact one 25 MG No 1{table t} QD Spironolac tone 25 MG Pantoprazol e Sodium 40 MG Pantoprazol e Sodium 40 MG No 1{table t} QD Pantoprazo le Sodium 40 MG Arformotero l Tartrate 15 MCG/2ML Arformotero l Tartrate 15 MCG/2ML No 2{ml} BID Arformoter ol Tartrate 15 MCG/2ML Immunizations Ordered Immunization Name Filled Immunization Name Date Status Comments Source Fluzone Fluzone 2021-03-27 10:30:00 Completed [facility] Fluzone Fluzone 2021-03-27 10:30:00 Completed [facility] Fluzone Fluzone 2021-03-27 10:30:00 Completed [facility] Fluzone Fluzone 2021-03-27 10:30:00 Completed [facility] Pneumovax (PPSV23) Pneumovax (PPSV23) 2021-03-27 10:29:00 Completed [facility] Pneumovax (PPSV23) Pneumovax (PPSV23) 2021-03-27 10:29:00 Completed [facility] Pneumovax (PPSV23) Pneumovax (PPSV23) 2021-03-27 10:29:00 Completed [facility] Pneumovax (PPSV23) Pneumovax (PPSV23) 2021-03-27 10:29:00 Completed [facility] FluAD FluAD 2019-11-27 08:58:00 Completed [facility] FluAD FluAD 2019-11-27 08:58:00 Completed [facility] FluAD FluAD 2019-11-27 08:58:00 Completed [facility] FluAD FluAD 2019-11-27 08:58:00 Completed [facility] FluAD FluAD Unknown Completed [facility] Fluzone Fluzone Unknown Completed [facility] Pneumovax (PPSV23) Pneumovax (PPSV23) Unknown Completed [facility] COVID-19 Vaccine (Nato) COVID-19 Vaccine (Nato) Unknown Completed [facility] FluAD FluAD Unknown Completed [facility] Fluzone Fluzone Unknown Completed [facility] Pneumovax (PPSV23) Pneumovax (PPSV23) Unknown Completed [facility] Influenza Influenza Unknown Completed [facility] COVID-19 Vaccine (Nato) COVID-19 Vaccine (Nato) Unknown Completed [facility] FluAD FluAD Unknown Completed [facility] Fluzone Fluzone Unknown Completed [facility] Pneumovax (PPSV23) Pneumovax (PPSV23) Unknown Completed [facility] Influenza Influenza Unknown Completed [facility] COVID-19 Vaccine (Nato) COVID-19 Vaccine (Nato) Unknown Completed [facility] FluAD FluAD Unknown Completed [facility] Fluzone Fluzone Unknown Completed [facility] Pneumovax (PPSV23) Pneumovax (PPSV23) Unknown Completed [facility] Influenza Influenza Unknown Completed [facility] COVID-19 Vaccine (Nato) COVID-19 Vaccine (Nato) Unknown Completed [facility] FluAD FluAD Unknown Completed [facility] Fluzone Fluzone Unknown Completed [facility] Pneumovax (PPSV23) Pneumovax (PPSV23) Unknown Completed [facility] Influenza Influenza Unknown Completed [facility] COVID-19 Vaccine (Nato) COVID-19 Vaccine (Nato) Unknown Completed [facility] FluAD FluAD Unknown Completed [facility] Fluzone Fluzone Unknown Completed [facility] Pneumovax (PPSV23) Pneumovax (PPSV23) Unknown Completed [facility] Influenza Influenza Unknown Completed [facility] COVID-19 Vaccine (Nato) COVID-19 Vaccine (Nato) Unknown Completed [facility] FluAD FluAD Unknown Completed [facility] Fluzone Fluzone Unknown Completed [facility] Pneumovax (PPSV23) Pneumovax (PPSV23) Unknown Completed [facility] Influenza Influenza Unknown Completed [facility] COVID-19 Vaccine (Nato) COVID-19 Vaccine (Nato) Unknown Completed [facility] FluAD FluAD Unknown Completed [facility] Fluzone Fluzone Unknown Completed [facility] Pneumovax (PPSV23) Pneumovax (PPSV23) Unknown Completed [facility] Influenza Influenza Unknown Completed [facility] COVID-19 Vaccine (Nato) COVID-19 Vaccine (Nato) Unknown Completed [facility] FluAD FluAD Unknown Completed [facility] Fluzone Fluzone Unknown Completed [facility] Pneumovax (PPSV23) Pneumovax (PPSV23) Unknown Completed [facility] Influenza Influenza Unknown Completed [facility] COVID-19 Vaccine (Nato) COVID-19 Vaccine (Nato) Unknown Completed [facility] FluAD FluAD Unknown Completed [facility] Fluzone Fluzone Unknown Completed [facility] Pneumovax (PPSV23) Pneumovax (PPSV23) Unknown Completed [facility] Influenza Influenza Unknown Completed [facility] COVID-19 Vaccine (Nato) COVID-19 Vaccine (Nato) Unknown Completed [facility] FluAD FluAD Unknown Completed [facility] Fluzone Fluzone Unknown Completed [facility] Pneumovax (PPSV23) Pneumovax (PPSV23) Unknown Completed [facility] Influenza Influenza Unknown Completed [facility] Vital Signs Vital Name Observation Time Observation Value Comments S ource height 2023-12-20 09:10:00 60 [in_i] Commo n [facility] weight 2023-12-20 09:10:00 131.8 [lb_av] Co mmon [facility] temperature 2023-12-20 09:10:00 97.2 [degF] Com [facility] bmi 2023-12-20 09:10:00 25.74 kg/m2 Comm on [facility] oximetry 2023-12-20 09:10:00 96 % Commo n [facility] respiratory rate 2023-12-20 09:10:00 16 /min [facility] blood pressure systolic 2023-12-20 09:10:00 118 mm[Hg] [facility] blood pressure diastolic 2023-12-20 09:10:00 68 mm[Hg] [facility] height 2023-09-19 09:10:00 60 [in_i] Commo n [facility] weight 2023-09-19 09:10:00 135 [lb_av] Comm on [facility] temperature 2023-09-19 09:10:00 97.3 [degF] Com [facility] bmi 2023-09-19 09:10:00 26.36 kg/m2 Comm on [facility] oximetry 2023-09-19 09:10:00 97 % Commo n [facility] blood pressure systolic 2023-09-19 09:10:00 112 mm[Hg] Common [facility] blood pressure diastolic 2023-09-19 09:10:00 68 mm[Hg] [facility] height 2023-09-19 09:20:00 60 [in_i] Commo n [facility] weight 2023-09-19 09:20:00 135 [lb_av] Comm on [facility] temperature 2023-09-19 09:20:00 97.3 [degF] Com mon [facility] bmi 2023-09-19 09:20:00 26.36 kg/m2 Comm on [facility] oximetry 2023-09-19 09:20:00 97 % Commo n [facility] blood pressure systolic 2023-09-19 09:20:00 112 mm[Hg] [facility] blood pressure diastolic 2023-09-19 09:20:00 68 mm[Hg] Common [facility] height 2023-06-17 15:30:00 60 [in_i] Commo n [facility] weight 2023-06-17 15:30:00 132.0 [lb_av] Co mmon [facility] temperature 2023-06-17 15:30:00 97.7 [degF] Com mon [facility] bmi 2023-06-17 15:30:00 25.78 kg/m2 Comm on [facility] oximetry 2023-06-17 15:30:00 99 % Commo n [facility] respiratory rate 2023-06-17 15:30:00 18 /min Common [facility] blood pressure systolic 2023-06-17 15:30:00 115 mm[Hg] [facility] blood pressure diastolic 2023-06-17 15:30:00 65 mm[Hg] Common [facility] height 2023-02-19 10:00:00 60 [in_i] Commo n [facility] weight 2023-02-19 10:00:00 117.4 [lb_av] Co mmon [facility] temperature 2023-02-19 10:00:00 98.0 [degF] Com [facility] bmi 2023-02-19 10:00:00 22.93 kg/m2 Comm on [facility] oximetry 2023-02-19 10:00:00 98 % Commo n [facility] respiratory rate 2023-02-19 10:00:00 16 /min [facility] blood pressure systolic 2023-02-19 10:00:00 124 mm[Hg] Common [facility] blood pressure diastolic 2023-02-19 10:00:00 62 mm[Hg] Common [facility] height 2022-09-18 10:10:00 60 [in_i] Commo n [facility] weight 2022-09-18 10:10:00 112 [lb_av] Comm on [facility] temperature 2022-09-18 10:10:00 97.6 [degF] Com [facility] bmi 2022-09-18 10:10:00 21.87 kg/m2 Comm on [facility] oximetry 2022-09-18 10:10:00 99 % Commo n [facility] respiratory rate 2022-09-18 10:10:00 16 /min Common [facility] blood pressure systolic 2022-09-18 10:10:00 110 mm[Hg] Common [facility] blood pressure diastolic 2022-09-18 10:10:00 77 mm[Hg] Common [facility] height 2022-09-18 10:10:00 60 [in_i] Commo n [facility] weight 2022-09-18 10:10:00 112 [lb_av] Comm on [facility] temperature 2022-09-18 10:10:00 97.6 [degF] Com mon [facility] bmi 2022-09-18 10:10:00 21.87 kg/m2 Comm on [facility] oximetry 2022-09-18 10:10:00 99 % Commo n [facility] respiratory rate 2022-09-18 10:10:00 16 /min Common [facility] blood pressure systolic 2022-09-18 10:10:00 110 mm[Hg] [facility] blood pressure diastolic 2022-09-18 10:10:00 77 mm[Hg] Common [facility] height 2022-06-25 10:30:00 60 [in_i] Commo n [facility] weight 2022-06-25 10:30:00 115 [lb_av] Comm on [facility] temperature 2022-06-25 10:30:00 96.4 [degF] Com [facility] bmi 2022-06-25 10:30:00 22.46 kg/m2 Comm on [facility] oximetry 2022-06-25 10:30:00 95 % Commo n [facility] respiratory rate 2022-06-25 10:30:00 17 /min Common [facility] blood pressure systolic 2022-06-25 10:30:00 126 mm[Hg] [facility] blood pressure diastolic 2022-06-25 10:30:00 65 mm[Hg] Common [facility] height 2021-12-26 10:10:00 60 [in_i] Commo n [facility] weight 2021-12-26 10:10:00 119 [lb_av] Comm on [facility] temperature 2021-12-26 10:10:00 97.5 [degF] Com [facility] bmi 2021-12-26 10:10:00 23.24 kg/m2 Comm on [facility] oximetry 2021-12-26 10:10:00 90 % Commo n [facility] respiratory rate 2021-12-26 10:10:00 16 /min [facility] blood pressure systolic 2021-12-26 10:10:00 111 mm[Hg] Common [facility]iri [facility] blood pressure diastolic 2021-12-26 10:10:00 71 mm[Hg] [facility] height 2021-09-19 14:30:00 61 [in_i] Commo n [facility] weight 2021-09-19 14:30:00 125.6 [lb_av] Co [facility] temperature 2021-09-19 14:30:00 97.3 [degF] Com [facility] bmi 2021-09-19 14:30:00 23.73 kg/m2 Comm on [facility] oximetry 2021-09-19 14:30:00 96 % Commo n [facility] respiratory rate 2021-09-19 14:30:00 17 /min [facility] blood pressure systolic 2021-09-19 14:30:00 117 mm[Hg] [facility] blood pressure diastolic 2021-09-19 14:30:00 81 mm[Hg] [facility] height 2021-09-19 14:30:00 61 [in_i] Commo n [facility] weight 2021-09-19 14:30:00 125.6 [lb_av] Co [facility] temperature 2021-09-19 14:30:00 97.3 [degF] Com [facility] bmi 2021-09-19 14:30:00 23.73 kg/m2 Comm on [facility] oximetry 2021-09-19 14:30:00 96 % Commo n [facility] respiratory rate 2021-09-19 14:30:00 17 /min Common [facility] blood pressure systolic 2021-09-19 14:30:00 117 mm[Hg] Common [facility] blood pressure diastolic 2021-09-19 14:30:00 81 mm[Hg] [facility] height 2021-06-26 09:50:00 61 [in_i] Commo n [facility] weight 2021-06-26 09:50:00 134.9 [lb_av] Co mmon [facility] temperature 2021-06-26 09:50:00 97.0 [degF] Com [facility] bmi 2021-06-26 09:50:00 25.49 kg/m2 Comm on [facility] oximetry 2021-06-26 09:50:00 93 % Commo n [facility] respiratory rate 2021-06-26 09:50:00 17 /min [facility] blood pressure systolic 2021-06-26 09:50:00 132 mm[Hg] [facility] blood pressure diastolic 2021-06-26 09:50:00 65 mm[Hg] [facility] height 2021-03-27 10:00:00 61 [in_i] Commo n [facility] weight 2021-03-27 10:00:00 136.3 [lb_av] Co mmon [facility] temperature 2021-03-27 10:00:00 97.3 [degF] Com [facility] bmi 2021-03-27 10:00:00 25.75 kg/m2 Comm on [facility] oximetry 2021-03-27 10:00:00 93 % Commo n [facility] respiratory rate 2021-03-27 10:00:00 17 /min [facility] blood pressure systolic 2021-03-27 10:00:00 114 mm[Hg] [facility] blood pressure diastolic 2021-03-27 10:00:00 78 mm[Hg] [facility] Procedures Procedure Date / Time Performed Performing Clinicia n Source [id number] 2019-05-05 00:00:00 [facility] [id number] 2019-05-05 00:00:00 [facility] Encounters Start Date/Time End Date/Time Encounter Type Admission Type Attending Clinicians Care Facility Care Department Encounter ID Source 2023-02-19 10:08:00 Outpatient Alaniz, Jeremi [facility] [id number] [facility] 2021-09-13 10:23:02 Outpatient Alaniz, Jeremi [facility] [id number] [facility] 2021-05-10 14:23:26 Outpatient Alaniz, Jeremi [facility] [id number] [facility] 2021-05-10 14:18:25 Outpatient Alaniz, Jeremi [facility] [id number] [facility] 2021-05-10 12:07:25 Outpatient Alaniz, Jeremi [facility] [id number] [facility] 2021-05-10 11:22:27 Outpatient Alaniz, Jeremi [facility] [id number] [facility] 2021-05-10 11:15:02 Outpatient [facility] [id number] [facility] 2019-05-05 10:30:00 Inpatient Rohith Khan [facility] [id number] [facility] 2023-12-20 00:00:00 2023-12-20 00:00:00 OFFICE VISIT ESTAB PT LEVEL 4 [facility] [id number] [facility] 2023-12-20 00:00:00 2023-12-20 00:00:00 (TEL) [facility] [id number] [facility] 2023-11-05 00:00:00 2023-11-05 00:00:00 (TEL) [facility] [id number] [facility] 2023-09-19 00:00:00 2023-09-19 00:00:00 (HOSP F/U) Hospital Follow Up [facility] ST[facility] [id number] [facility] 2023-09-19 00:00:00 2023-09-19 00:00:00 SUB ANNUAL [facility] WELLNESS VISIT STLMLC ST[facility] [id number] [facility] 2023-09-13 00:00:00 2023-09-13 00:00:00 (TEL) [facility] [id number] [facility] 2023-09-13 00:00:00 2023-09-13 00:00:00 (TEL) [facility] ST[facility] [id number] [facility] 2023-06-17 00:00:00 2023-06-17 00:00:00 (HOSP F/U) Hospital Follow Up [facility] ST[facility] [id number] [facility] 2023-06-13 00:00:00 2023-06-13 00:00:00 (TEL) [facility]C ST[facility] [id number] [facility] 2023-03-19 00:00:00 2023-03-19 00:00:00 (TEL) [facility]C [facility] [id number] [facility] 2023-02-19 00:00:00 2023-02-19 00:00:00 OFFICE VISIT ESTAB PT LEVEL 4 [facility] [id number] [facility] 2023-02-15 00:00:00 2023-02-15 00:00:00 (TEL) [facility]C [facility] [id number] [facility] 2023-02-06 00:00:00 2023-02-06 00:00:00 (TEL) STLMLC ST[facility] [id number] [facility] 2023-02-06 00:00:00 2023-02-06 00:00:00 (TEL) [facility]MLC ST[facility] [id number] [facility] 2022-09-18 00:00:00 2022-09-18 00:00:00 OFFICE VISIT ESTAB PT LEVEL 4 [facility] [id number] [facility] 2022-09-18 00:00:00 2022-09-18 00:00:00 SUB ANNUAL MCR WELLNESS VISIT STLMLC ST[facility] [id number] [facility] 2022-06-25 00:00:00 2022-06-25 00:00:00 OFFICE VISIT ESTAB PT LEVEL 4 [facility] ST[facility] [id number] [facility] 2022-03-14 00:00:00 2022-03-14 00:00:00 (TEL) ST[facility]MLC ST[facility] [id number] [facility] 2022-01-22 00:00:00 2022-01-22 00:00:00 (TEL) [facility]C ST[facility] [id number] [facility] 2021-12-26 00:00:00 2021-12-26 00:00:00 OFFICE VISIT ESTAB PT LEVEL 4 [facility] ST[facility] [id number] [facility] 2021-09-19 00:00:00 2021-09-19 00:00:00 OFFICE VISIT ESTAB PT LEVEL 4 [facility] [id number] [facility] 2021-09-19 00:00:00 2021-09-19 00:00:00 SUB ANNUAL MCR WELLNESS VISIT [facility]C ST[facility] [id number] [facility] 2021-09-19 00:00:00 2021-09-19 00:00:00 (TEL) STLMLC ST[facility] [id number] [facility] 2021-08-29 00:00:00 2021-08-29 00:00:00 (TEL) STLMLC ST[facility] [id number] [facility] 2021-06-26 00:00:00 2021-06-26 00:00:00 OFFICE VISIT ESTAB PT LEVEL 4 [facility] ST[facility] [id number] [facility] 2021-03-27 00:00:00 2021-03-27 00:00:00 OFFICE VISIT ESTAB PT LEVEL 4 [facility] ST[facility] [id number] [facility] 2021-03-13 00:00:00 2021-03-13 00:00:00 (TEL) STLMLC ST[facility] [id number] [facility] 2021-03-06 00:00:00 2021-03-06 00:00:00 (TEL) [facility]C ST[facility]C [id number] [facility] 2021-02-10 00:00:00 2021-02-10 00:00:00 (TEL) STLMLC STLMLC [id number] [facility] 2020-12-23 00:00:00 2020-12-23 00:00:00 Outpatient STLMLC STLMLC [id number] [facility] 2020-11-24 00:00:00 2020-11-24 00:00:00 Outpatient STLMLC STLMLC [id number] [facility] 2020-09-29 00:00:00 2020-09-29 00:00:00 Outpatient STLMLC STLMLC [id number] [facility] 2020-09-27 00:00:00 2020-09-27 00:00:00 Outpatient STLMLC STLMLC [id number] [facility] 2020-09-26 00:00:00 2020-09-26 00:00:00 Outpatient STLMLC STLMLC [id number] [facility] 2020-09-26 00:00:00 2020-09-26 00:00:00 Outpatient STLMLC STLMLC [id number] [facility] 2020-09-19 00:00:00 2020-09-19 00:00:00 Outpatient STLMLC STLMLC [id number] [facility] 2020-07-02 11:05:00 2020-07-02 11:05:00 Outpatient [facility] [id number] [facility] 2020-06-11 11:30:00 2020-06-11 11:30:00 Outpatient [facility] [id number] [facility] 2020-04-05 00:00:00 2020-04-05 00:00:00 Outpatient STLMLC STLMLC [id number] [facility] 2020-03-08 00:00:00 2020-03-08 00:00:00 Outpatient STLMLC STLMLC [id number] [facility] 2020-03-08 00:00:00 2020-03-08 00:00:00 Outpatient STLMLC STLMLC [id number] [facility] 2019-12-03 09:15:00 2019-12-03 09:15:00 [facility] [id number] [facility] 2019-11-19 15:09:00 2019-11-19 15:09:00 [facility] [id number] [facility] 2019-09-03 11:00:00 2019-09-03 11:00:00 [facility] [id number] [facility] 2019-09-03 10:45:00 2019-09-03 10:45:00 [facility] [id number] [facility] 2019-07-23 09:24:00 2019-07-23 09:24:00 [facility] [id number] [facility] 2019-07-11 13:05:00 2019-07-11 13:05:00 [facility] [id number] [facility] 2019-06-30 14:15:2019-06-30 14:15:00 [facility] [place] [facility] [facility] [id number] [facility] Results Test Description Test Time Test Comments Results Result Co mments Source CALCIUM, [id number] 00:00:00* Test Item Value Reference Range Interpretation Comme nts CALCIUM, IONIZED (test code = 63151-1) 5.35 MG/DL See_Comment [Automated [employer]ectar] The system which generated this result transmitted reference range: 4.70-5.90 MG/DL. The reference range was not used to interpret this result as normal/abnormal. [id number] 00:00:00* Test Item Value Reference Range Interpretation Comme nts FERRITIN (test code = 30307-5) 53 NG/ML See_Comment [Automated [employer]] The system which generated this result transmitted reference range: 13-200 NG/ML. The reference range was not used to interpret this result as normal/abnormal. ARTERY,[id number] 10:05:00 RUN DATE: 05/07/19 [facility] PAGE 1 RUN TIME: 1005 Specimen Inquiry RUN USER: INTERFACE YFN T: RACHEAL SABILLON LOC: ENA U #: [id number] AGE/SX: 73/F ROOM: [facility] RE05/05/19REG DR: Rohith Kc MD : 47 BED: A DIS: STATUS: ADM IN TLOC: SPEC #: [id number]:[id number] RECD: 05/05/19 STATUS: DIEGO BYNUM #: [id number] GUS: 05/05/[address]: Rohith Kc MD ENTERED: 05/05/19 SP TYPE: ARTERY, PL OTHR DR: Jose Marc MD, Nioti R MD Pepper, Gregory S MDORDERED: DECAL,SURG PATH LVL 3, SURG PATH LVL 4 CODES: T42884 - PLAQUE, NOS R44072 - ARTERY, NOS [id number] T85182 - CAROTID ARTERY ATHEROSCLEROSIS [id number] - CERVIX EXCISIONAL BIOP JY5037 - LYMPH NODE, NOS COPIES TO: Jose Marc MD [address] [place] [address] [address] [place] [address] [email or web address] [address] [place] [address] [place] [address] [facility] [address] [place] [address] [place] [address] [facility] [address] [place] [address] ICD CODES: 440 - PROCEDURES: DECAL (05/06/19-09) SURG PATH LVL 3 (05/05/19-1612) SURG PATH LVL 4 (05/06/19-1326) TISSUES: A. ARTERY, NOS - LT CAROTID PLAQUE B. LYMPH NODE, NOS- LT CERVICAL LYMPH NODE CONTINUED ON NEXT PAGE RUN DATE: 05/07/19 [place] - LAB PAGE 2 RUN TIME: 1005 Specimen Inquiry RUN USER: INTERFACE SPEC #: [id number]:[id number] PATIENT: RACHEAL SABILLON #[id number] (Continue d) CLINICAL HISTORY LEFT INTERNAL CAROTID ARTERY STENOSIS CPT CODES CPT CODE(S): 68670 , 50971 , 42136 , ,, , FINAL DIAGNOSIS A. Plaque, left carotid [...] measuring 2 x 1 x 1 cm. Seriallysectioned and submitted as B1. /tc/cm MICROSCOPIC DESCRIPTION A. Left carotid plaque. Ovoid sclerotic nodule with dense calcification. No atypical features. Note: Additional recuts and levels performed. B. Left cervical lymph node. Benign lymph node sections with variable mild perisinusoidal and paracortical reactive changes. No atypical features. /cm Signed DarrionPhillebony 05/07/19 1005 END OF REPORT BASIC METABOLIC [id number] 04:51:00* Test Item Value Reference Range Interpretation [...] CA) 9.6 MG/DL 8.4-10.2 N BASIC METABOLIC [id number] 04:40:00* Test Item Value Reference Range Interpretation [...] code = CA) MG/DL 8.7-9.7 BASIC METABOLIC [id number] 04:38:00* Test Item Value Reference Range Interpretation [...] code = CA) MG/DL 8.7-9.7 BASIC METABOLIC [id number] 04:37:00* Test Item Value Reference Range Interpretation [...] code = CA) MG/DL 8.7-9.7 CBC W/AUTO [id number] 04:18:00* Test Item Value Reference Range Interpretation [...] 0.00 K/mm3 0.0-0.1 N - XR CHEST [id number] 09:05:00Patient Name: RACHEAL SABILLON Unit No: [id number] EXAMS: CPT CODE: [id number] XR CHEST 1V 63321 Site ID: [id number] HISTORY: Postoperative, left ICA [...] t.MARISOLR.AJP6 Orig Print D/T: S: 05/06/2019 (0908) [facility] NAME: RACHEAL SABILLON [id number] PHYS: [place] [address] : 1945 AGE: 73 SEX: F LOC: Z.SI04 A PHONE #: [phone] EXAM DATE: 05/06/2019 STATUS: ADM IN FAX #: [phone] RADIOLOGY NO: PAGE 1 Signed ReportBASIC METABOLIC [id number] 06:09:00* Test Item Value Reference Range Interpretation [...] code = CA) 9.4 MG/DL 8.4-10.2 N [id number] 06:09:00* Test Item Value Reference Range Interpretation Comme nts MAGNESIUM (test code = MAG) 1.5 MG/DL 1.6-2.3 L BASIC METABOLIC [id number] 05:59:00* Test Item Value Reference Range Interpretation [...] CALCIUM (test code = CA) MG/DL 8.7-9.7 [id number] 05:59:00* Test Item Value Reference Range Interpretation Comme nts MAGNESIUM (test code = MAG) MG/DL 1.6-2.3 CBC W/AUTO [id number] 05:46:00* Test Item Value Reference Range Interpretation [...] NRBC#) 0.00 K/mm3 0.0-0.1 N BASIC METABOLIC [id number] 13:49:00* Test Item Value Reference Range Interpretation Comme nts SODIUM (test code = NA) 136 MMOL/L 137-145 L POTASSIUM (test code = K) 2.9 MMOL/L 3.5-5.1 L CALLED TO [employer] A.V& READBACK ON 05/05/19 AT 1348 BY [...] code = CA) 9.7 MG/DL 8.4-10.2 N [id number] 13:49:00* Test Item Value Reference Range Interpretation Comme nts MAGNESIUM (test code = MAG) 1.4 MG/DL 1.6-2.3 L BASIC METABOLIC [id number] 13:48:00* Test Item Value Reference Range Interpretation Comme nts SODIUM (test code = NA) 136 MMOL/L 137-145 L POTASSIUM (test code = K) 2.9 MMOL/L 3.5-5.1 L CALLED TO [employer]& READBACK ON 05/05/19 AT 1348 BY Andrey [...] code = CA) 9.7 MG/DL 8.4-10.2 N [id number] 13:48:00* Test Item Value Reference Range Interpretation Comme nts MAGNESIUM (test code = MAG) MG/DL 1.6-2.3 - XR CHEST [id number] 13:35:00Patient Name: RACHEAL SABILLON Unit No: [id number] EXAMS: CPT CODE: [id number] XR CHEST 1V 79392Kqreoxnb of dictation: B2 Portable chest one view. [...] endarterectomy. 2. Right lower lobe atelectasis. at 1331 Reported and signed by: Larissa Balderas M.D. CC: Jose Marc MD Technologist: [facility] STUDENT ; Alhaji Cha RT(R) Transcrpt Date/Tm/Trnsp:05/05/2019 (0626) t.MARISOLR.PXC Orig Print D/T: S: 05/05/2019 (4647) [facility] NAME: RACHEAL SABILLON [id number] PHYS: [place] [address] : 1945 AGE: 73 SEX: F LOC: Z.SI04 A PHONE #: [phone] EXAM DATE: 05/05/2019 STATUS: ADM IN FAX #: [phone] RADIOLOGY NO: PAGE 1 Signed ReportCBC W/AUTO [id number] 13:20:00* Test Item Value Reference Range Interpretation [...] NRBC#) 0.00 K/mm3 0.0-0.1 N ARTERIAL BLOOD [id number] 13:17:00* Test Item Value Reference Range Interpretation [...] (test code = COHBGFFIO2) 60 % PROTHROMBIN [id number] 13:06:00* Test Item Value Reference Range Interpretation [...] recurrent systemic embolism. 3.0 - 4.5 PTT [id number] 13:06:00* Test Item Value Reference Range Interpretation Comme [facility] PTT ACTIVATED (test code = APTT) 30.4 SECONDS 22.0-33.0 N HIV 12 AB [id number] 13:02:00* Test Item Value Reference Range Interpretation Comme nts HIV 1 2 COMBO AG/AB SCREEN (test code = [id number]) AB/AG NON REACTIVE NONREACTIVE CBC W/AUTO [id number] 12:51:00* Test Item Value Reference Range Interpretation [...] NRBC#) 0.00 K/mm3 0.0-0.1 N BASIC METABOLIC [id number] 12:21:00* Test Item Value Reference Range Interpretation [...] CA) 9.9 MG/DL 8.4-10.2 N BASIC METABOLIC [id number] 12:20:00* Test Item Value Reference Range Interpretation [...] code = CA) MG/DL 8.7-9.7 BASIC METABOLIC [id number] 12:18:00* Test Item Value Reference Range Interpretation [...] code = CA) MG/DL 8.7-9.7 BASIC METABOLIC [id number] 12:17:00* Test Item Value Reference Range Interpretation [...] CA) MG/DL 8.7-9.7 - XR CHEST 2 [id number] 11:39:00Patient Name: RACHEAL SABILLON Unit No: [id number] EXAMS: CPT CODE: [id number] XR CHEST 2 V [id number]: T18 EXAM: CHEST 2 VIEWS INDICATION: PRE-OP [...] t.SDR.JP19 Orig Print D/T: S: 05/04/2019 (1142) [facility] NAME: RACHEAL SABILLON [id number] PHYS: [place] [address] : 1945 AGE: 73 SEX: F LOC: Z.SRG PHONE #: [phone] EXAM DATE: 05/04/2019 STATUS: PRE [place] FAX #: [phone] RADIOLOGY NO: PAGE 1 Signed ReportBASIC METABOLIC [id number] 05:09:00* Test Item Value Reference Range Interpretation [...] code = CA) 9.0 MG/DL 8.4-10.2 N [id number] 05:09:00* Test Item Value Reference Range Interpretation Comme nts MAGNESIUM (test code = MAG) 1.8 MG/DL 1.6-2.3 N CBC W/AUTO [id number] 04:46:00* Test Item Value Reference Range Interpretation [...] NRBC#) 0.00 K/mm3 0.0-0.1 N BASIC METABOLIC [id number] 06:03:00* Test Item Value Reference Range Interpretation [...] code = CA) 8.7 MG/DL 8.4-10.2 N [id number] 06:03:00* Test Item Value Reference Range Interpretation Comme nts MAGNESIUM (test code = MAG) 2.1 MG/DL 1.6-2.3 N CBC W/AUTO [id number] 05:32:00* Test Item Value Reference Range Interpretation [...] NRBC#) 0.00 K/mm3 0.0-0.1 N ARTERIAL BLOOD [id number] 12:23:00* Test Item Value Reference Range Interpretation [...] jus result: FT/NC Edited by: MOON on 10/01/18:272214 1222: DELIVERY previously reported as: FT/NC ABG TEMPERATURE (test code = TEMPA) 37.0 C >37 ABG SITE (test code = SITEA) AL ALLENS TEST (test code = ALLENS) NA CHECK FIO2 (test code = COHBGFFIO2) 40 % ARTERY,[id number] 11:58:00 RUN DATE: 10/01/18 [place] - [facility] PAGE 1 RUN TIME: 1158 Specimen Inquiry RUN USER: INTERFACE YFN T: RACHEAL SABILLON LOC: ENA U #: [id number] AGE/SX: 72/F ROOM: [facility] RE09/30/18REG DR:Rohith Kc MD : 47 BED: A DIS: STATUS: ADM IN TLOC: SPEC #: [id number] RECD: 09/30/18 STATUS: DIEGO REQ #: [id number] GUS: 09/30/18 [facility] DR: Rohith Kc MD ENTERED: 09/30/18 SP TYPE: ARTERY, PL OTHR DR: Jose Marc MD, Nioti R MD Pepper, Gregory S MDORDERED: DECAL, SURG PATH LVL 3, SURG PATH LVL 4 CODES: Q58044 - PLAQUE, NOS N80610 - ARTERY, NOS G75178 H32567 -CAROTID ARTERY ATHEROSCLEROSIS [id number] - CERVIX EXCISIONAL BIOP NS1432 - LYMPH NODE, NOS COPIES TO: Jose Marc MD [address] [place] [address] [address] [place] [address] [email or web address] [address] [place] [address] [place] [address] [facility] [address] [place] [address] [place] [address] [facility] [address] [place], [place] [address] ICD CODES: 440 - PROCEDURES: DECAL (10/01/18-908) SURG PATH LVL 3 (09/30/18-1645) SURG PATH LVL 4 (09/30/18) TISSUES: A. ARTERY, NOS - RT ARTERY PLAQUE B. LYMPH NODE, NOS - RT CERVICAL LYMPH NODE CONTINUED ON NEXT PAGE RUN DATE: 10/01/18 [place] [facility] PAGE 2 RUN TIME: 1158 Specimen Inquiry RUN USER: INTERFACE SPEC #: [id number] PATIENT: RACHEAL SABILLON #[id number] (Continue d) CLINICAL HISTORY RIGHT INTERNAL CAROTID ARTERY STENOSIS CPT CODES CPT CODE(S): 85207 , 72867 , 33295 , , , , FINAL DIAGNOSIS A. Plaque, right carotid artery, endarterectomy: SEVERE ATHEROSCLEROSIS, OCCLUSIVE AND CALCIFIC B. Lymph node, right cervical, excisional biopsy: MINIMAL, NON- SPECIFIC, REACTIVE CHANGE GROSS DESCRIPTION A. Right carotid plaque. Received are two pieces of yellow-wyman, heavily calcified plaque (combined measurement 3.5 x 1 x 0.8 cm). Sections are submitted for decalcification asA1. B. Right cervical lymph node. Received is a wyman-pink lymph node (1.3 x 1 x 0.7 cm), sectioned and entirely submitted as B1. /tc/hazel MICROSCOPIC DESCRIPTION A. Right carotid plaque. Nodular atheromatous plaque with dense calcification and stromal sclerosis. No atypia. No malignancy. B. Right cervical lymph node. Benign lymph node with minimal hyperplastic deviation (reactive change). No atypia.No malignancy. /cm Signed SIGNATURE ON FILE David Maier 10/01/18 1158 END OF REPORT - XR CHEST [id number] 07:45:00Patient Name: RACHEAL SABILLON Unit No: [id number] EXAMS: CPT CODE: [id number] XR CHEST 1V [id number]: - XR CHEST 1V. LOCATION: B2. HISTORY: [...] Jose Marc MD; Brisa GARCIA Technologist: Jeffrey High,RT(R) Transcrpt Date/Tm/Trnsp: 10/01/2018 (0745) t.SDR.PR7 Orig Print D/T: S: 10/01/2018 (0748) [facility] NAME: RACHEAL SABILLON [id number] PHYS: [place] [address] : 1945 AGE: 72 SEX: F LOC: Z.SI07 A PHONE #: [phone] EXAM DATE: 10/01/2018 STATUS: ADM IN FAX #: [phone] RADIOLOGY NO: PAGE 1 Signed ReportBASIC METABOLIC [id number] 05:58:00* Test Item Value Reference Range Interpretation [...] code = CA) 8.7 MG/DL 8.4-10.2 N [id number] 05:58:00* Test Item Value Reference Range Interpretation Comme nts MAGNESIUM (test code = MAG) 1.7 MG/DL 1.6-2.3 N CBC W/AUTO [id number] 05:30:00* Test Item Value Reference Range Interpretation [...] code = NRBC#) 0.00 K/mm3 0.0-0.1 N [id number] 22:38:00* Test Item Value Reference Range Interpretation Comme nts POTASSIUM (test code = K) 3.3 MMOL/L 3.5-5.1 L [id number] 22:38:00* Test Item Value Reference Range Interpretation Comme nts MAGNESIUM (test code = MAG) 1.7 MG/DL 1.6-2.3 ARTERIAL BLOOD [id number] 17:57:00* Test Item Value Reference Range Interpretation [...] code = COHBGFFIO2) 40 % BASIC METABOLIC [id number] 16:18:00* Test Item Value Reference Range Interpretation [...] code = CA) 8.9 MG/DL 8.4-10.2 N [id number] 16:18:00* Test Item Value Reference Range Interpretation Comme nts MAGNESIUM (test code = MAG) 1.3 MG/DL 1.6-2.3 L CBC W/AUTO [id number] 16:06:00* Test Item Value Reference Range Interpretation [...] 0.00 K/mm3 0.0-0.1 N - XR CHEST [id number] 15:29:00Patient Name: RACHEAL SABILLON Unit No: [id number] EXAMS: CPT CODE: [id number] XR CHEST 1V 05117 EXAM: CHEST ONE VIEW INDICATION: Postop LOCATION: B2 COMPARISON: September 29, 2018 TECHNIQUE: AP view of the chest FINDINGS: Left-sided central venous catheter overlies the SVC. The heart size is normal. There are mild congestive changes bilaterally. No pneumothorax or pleural effusion is identified. The osseous structures are normal. IMPRESSION: Mild congestive changes bilaterally. No pneumothorax. at 1529 Reported and signed by: Blanca DAVIS CC: Jose Marc MD; Brisa GARCIA Technologist: RT Adam(R) Transcrpt Date/Tm/Trnsp: 09/30/2018 (1529) LakeMD16 Orig Print D/T: S: 09/30/2018 (4472) [facility] NAME:RACHEAL SABILLON [id number] PHYS: [place] [address] : 1945 AGE: 72 SEX: F LOC: Z.SI07 A PHONE #: [phone] EXAM DATE: 09/30/2018 STATUS: ADM IN FAX #: [phone] RADIOLOGY NO: PAGE 1 Signed ReportHIV 12 AB [id number] 19:14:00* Test Item Value Reference Range Interpretation Comme nts AB HIV 1 2 (test code = QOX66CG) NON REACTIVE NON-REAC NOTE: A NONREACT LINETTE RESULT INDICATES THAT HIV-1 AND HIV-2ANTIBODIES HAVE NOT BEEN FOUND IN THIS PATIENT SPECIMEN. ANON-REACTIVE RESULT, HOWEVER, DOES NOT PRECLUDE PREVIOUSEXPOSURE OR INFECTION WITH HIV1. AG HIV1 P24 (test code = VSQ6S30) NON REACTIVE NONE REAC PROTHROMBIN [id number] 14:22:00* Test Item Value Reference Range Interpretation [...] recurrent systemic embolism. 3.0 - 4.5 PTT [id number] 14:22:00* Test Item Value Reference Range Interpretation Comme [facility] PTT ACTIVATED (test code = APTT) 29.3 SECONDS 22.0-33.0 N BASIC METABOLIC [id number] 14:18:00* Test Item Value Reference Range Interpretation [...] MG/DL 8.4-10.2 N - XR CHEST 2 [id number] 14:14:00Patient Name: RACHEAL SABILLON Unit No: [id number] EXAMS: CPT CODE: [id number] XR CHEST 2 V 35119 EXAM: CHEST 2 VIEWS INDICATION: PRE-OP LOCATION: B2 COMPARISON: None available TECHNIQUE: PA and l ateral views of the chest. FINDINGS: The heart size is normal. The lungs are clear bilaterally. Thepulmonary vasculature is normal. No pneumothorax or pleural effusion is identified. The osseous structures are normal. IMPRESSION: No acute cardiopulmonary process. at 1414 Reported and signed by: Ryann Zuniga MD CC: Jose Marc MDTechnologist: Gay Wolfe, RT(R) Transcrpt Date/Tm/Trnsp: 09/29/2018 (1414) LakeMD16 Orig Print D/T: S: 09/29/2018 (1415) [facility] NAME: RACHEAL SABILLON [id number] PHYS: [place] [address] : 1945 AGE: 72 SEX: F LOC: [id number] PHONE #: [phone] EXAM DATE: 09/29/2018 STATUS: PRE IN FAX #: [phone] RADIOLOGY NO: PAGE 1 Signed ReportCBC W/AUTO [id number] 13:57:00* Test Item Value Reference Range Interpretation [...] NRBC#) 0.00 K/mm3 0.0-0.1 N BASIC METABOLIC [id number] 06:04:00* Test Item Value Reference Range Interpretation [...] mg/dL HIGH.........160-189 mg/dL VERY HIGH.........>/= 190 mg/dL [id number] 06:04:00* Test Item Value Reference Range Interpretation Comme nts MAGNESIUM (test code = MAG) 1.9 MG/DL 1.6-2.3 N PROTHROMBIN [id number] 06:00:00* Test Item Value Reference Range Interpretation [...] systemic embolism. 3.0 - 4.5 Comments to Yard Caller: WILL BRING TO LABPTT [id number] 06:00:00* Test Item Value Reference Range Interpretation Comme nts PTT ACTIVATED (test code = APTT) 29.3 SECONDS 22.0-33.0 N Comments to Yard Caller: WILL BRING TO LABBASIC METABOLIC [id number] 05:54:00* Test Item Value Reference Range Interpretation [...] LDL (test code = LDL) MG/DL 0-99 [id number] 05:54:00* Test Item Value Reference Range Interpretation Comme nts MAGNESIUM (test code = MAG) 1.9 MG/DL 1.6-2.3 N CBC W/AUTO [id number] 05:41:00* Test Item Value Reference Range Interpretation [...] Notes Date/Time Note Provider Source 2019-06-17 23:33:00 [id number] [place] [address] PATIENT NAME: RACHEAL SABILLON ADMIT DATE: 05/05/19 ACCOUNT NO: [id number] ROOM NO: Z.SI04 AGE: 73 REPORT TYPE: DISCHARGE SUMMARY REPORT SEX: F ADMITTING PHYSICIAN:Rohith Kc MD ATTENDING PHYSICIAN:Rohith Kc MD ADMISSION DATE: 05/05/2019 DISCHARGE DATE: 05/07/2019 DISCHARGE DIAGNOSES: Left internal carotid artery stenosis, status post left carotid endarterectomy, hypertension, hypercholesterolemia, coronary artery disease, history of right carotid endarterectomy. HOSPITAL COURSE: The patient is a 73-year-old female well known to our services with a history of carotid stenosis who is status post right carotid endarterectomy on 09/30/2018. The patient is doing relatively well and was also noted to have a 70% left ICA stenosis on the carotid angiogram. The patient was subsequently admitted on 05/05/2019 and taken to the operating room where she underwent a left carotid endarterectomy with Hemashield patch arterioplasty. The patient tolerated the procedure well and was transferred to ICU in a stable condition. In the ICU, she maintained normal sinus rhythm, stable blood pressure. neurological status remained intact. BLAKE drain was removed on postoperative day #1 and the patient was ambulating independently and with assistance of physical therapy. She was discharged home on 05/07/2019 in a stable condition. She was instructed to continue taking her medications as prescribed and to follow up with Dr. Kc in 1 to 2 weeks, also to follow up with her accounts payable analyst, Dr. Marc. Dictated By: RADHA Morton for Rohith Kc MD WT: DS:GERARDO/KIM/ANATOLY Conf#: [id number]/DID#: [id number] Authenticated by RADHA Morton On 06/18/2019 11:10:13 AM Authenticated by Rohith Kc MD On 06/18/2019 11:11:39 AM at 1111 at 1111 PATIENT NAME: RACHEAL SABILLON [facility] 2019-05-08 17:29:00 [facility] Hospitalist Progress Note REPORT#:[id number] REPORT STATUS: Signed DATE:05/08/19 TIME: 1728 PATIENT: RACHEAL SABILLON UNIT #: [id number] ROOM/BED: [address] : [birth year] AGE: 73 SEX: F ATTEND: Rohith Kc MD ADM AUTHOR: David Irving MD * ALL edits or amendments must be made on the electronic/computer document * Subjective Chief Complaint: Pt is post Left CEA Review of Systems Constitutional: Denies: fatigue, fever, generalized weakness. Allergy/Immun: Denies: hives, itching. Eyes: Denies: itching, diplopia. ENT: Reports: sore throat. Denies: nose bleeding, sinus problem. Cardiovascular: Denies: orthopnea, palpitations. GI: Denies: diarrhea, dysphagia. Musculoskeletal: Denies: joint pain, lumbar pain. Neuro: Denies: gait problem, headache. Psych: Reports: confusion. Objective General VS/I O: 24 hour I O ending at 0700: 05/08 0700 05/07 1900 Intake Total Output Total Balance Number Voids 1 Patient Weight Weight (lb): 134 Weight (oz): 2.91 Weight (kg): 60.781 Medications: Documentation of Current Medications in the Medical Record : I attest that the foregoing medication list in the medical record is true, accurate, and complete to the best of my knowledge. Physical Exam General appearance: alert, awake, oriented Head/Eyes: atraumatic, clear cornea ENT: moist mucosal membranes Neck: carotid bruit (incision site is ok) Cardiovascular: regular rate rhythm Respiratory: aerating well, clear to auscultation Abdomen: non-tender, normal bowel sounds Extremities: moves all, no clubbing Neuro/WAXER: alert, no motor deficits Diagnosis, Assessment Plan Free Text DxA P Notes Free Text DxA P Notes: ASSESSMENT: 1. Left carotid endarterectomy. 2. History of coronary artery disease. 3. History of previous carotid disease. 4. Hypothyroidism. 5. Hyperlipidemia. 6. Hypertension. PLAN: The patient is doing well, still on Cardene drip. Medications resumed by CV service. The patient is alert and oriented. Continue present care. Restart Plavix, atorvastatin, isosorbide, losartan, hydrochlorothiazide, metoprolol, aspirin for now, and levothyroxine is at 100 mcg daily. Thank you, Dr. Kc, for allowing us to participate in the care of this patient. 05/06 pt was a little confused early this am No chest pain 05/07 pt is doing well. he BP was elevated Procardia was not started Pt is eager to go home FU Dr marc for BP control DW family at 1731 RPT #:[id number] END OF REPORT [facility] 2019-05-07 06:42:00 [facility] ([facility]) Cardiology Progress Note REPORT#:[id number] REPORT STATUS: Signed DATE:05/07/19 TIME: 06 PATIENT: RACHEAL SABILLON UNIT #: [id number] [address] AGE: 73 SEX: F ATTEND: Rohith Kc MD ADM AUTHOR: Supa Kelly MD * ALL edits or amendments must be made on the electronic/computer document * Subjective Chief Complaint: Carotid disease. Patient reports: No: chest pain, palpitations, shortness of breath. Objective General VS/I O: 24 hour I O ending at 0700: 05/07 [...] 05/06 1930 98 40 175/96 127 73 05/067 89 37 180/96 129 98 05/06 1902 73 21 183/86 124 94 05/06 1900 78 27 179/86 124 98 05/06 1800 72 27 118/95 104 05/06 1730 71 20 145/81 108 100 01/22 1700 72 28 141/73 102 70 05/06 [...] 0800 82 14 100 05/06 0749 Nasal 2.926866 cannula 05/06 0745 83 19 100 05/06 0724 99 Nasal 2.030129 28 cannula 05/06 0700 97.9 05/06 0700 87 18 100 Patient Weight Weight (lb): 134 Weight (oz): 2.91 Weight (kg): 60.781 Medications: Active Meds + DC'd Last 24 Hrs Nifedipine 30 MG DAILY PO Atorvastatin Calcium 40 [...] MG ASDIR PRN IV Sodium Chloride 100 ML Hydrocodone Bitart/Acetaminophen 1 TAB Q4H PRN PRN PO Hydrocodone Bitart/Acetaminophen 2 TAB Q4H PRN PRN PO Nicardipine HCl 25 MG ASDIR PRN IV Sodium Chloride 250 ML Ondansetron HCl 4 MG Q8H PRN PRN IV Phenol 5 SPRAY Q2H PRN PRN MM Potassium Chloride 10 MEQ ASDIR PRN PO Lactated Ringer's 1,000 ML ONCE ONE IV (DC) Physical Exam General appearance: alert, awake, oriented Head/Eyes: atraumatic, normocephalic ENT: moist mucosal membranes Neck: no JVD Cardiovascular: CV assessment: regular rate and rhythm Respiratory: clear to auscultation, no distress Lower extremity: LE assessment: no edema Musculoskeletal: full range of motion Neuro/WAXER: alert, oriented X 3, CN II-XII intact Skin: dry, intact Wound/incision: Site condition: dressing clean dry Psychiatry: normal affect, normal judgment/insight, normal mood Results Findings/Data: Laboratory Tests 05/07 399 Chemistry Sodium (137 - [...] (Auto) (14 - 44 %) 13.3 L [place] % (Auto) (4 - 13 %) 12.3 Eos % (Auto) (0 - 6 %) 0.2 Baso % (Auto) (0 - 2 %) 0.1 Neut # (Auto) (2.0 - 7.6 K/mm3) 8.72 H Lymph # (Auto) (1.0 - 3.8 K/mm3) 1.57 [place] # (Auto) (0.1 - 0.8 K/mm3) 1.45 H Eos # (Auto) (0.0 - 0.2 K/mm3) 0.02 Baso # (Auto) (0.0 - 0.2 K/mm3) 0.01 Immature Gran % (0.0 - 2.0 %) 0.4 Nucleated RBC % (0 - 1.0 %) 0.0 Nucleated RBCs # (Man) (0.0 - 0.1 K/mm3) 0.00 Diagnosis, Assessment Plan Free Text DxA P Notes Free Text DxA P Notes: IMP: Carotid disease s/p left CEA HTN CAD HLP PLAN: Continue current medical rx - cardiac stable. Ambualte IS at 1913 RPT #:[id number] END OF REPORT [facility] 2019-05-06 19:18:00 [facility] Hospitalist Progress Note REPORT#:[id number] REPORT STATUS: Signed DATE:05/06/19 TIME: 1917 PATIENT: RACHEAL SABILLON UNIT #: [id number] ROOM/BED: [address] : [birth year] AGE: 73 SEX: F ATTEND: Rohith Kc MD ADM AUTHOR: David Irving MD * ALL edits or amendments must be made on the electronic/computer document * Subjective Chief Complaint: Pt is ost Left CEA Review of Systems Constitutional: Denies: fatigue, fever, generalized weakness. Allergy/Immun: Denies: hives, itching. Eyes: Denies: itching, diplopia. ENT: Reports: sore throat. Denies: nose bleeding, sinus problem. Cardiovascular: Denies: orthopnea, palpitations. GI: Denies: diarrhea, dysphagia. Musculoskeletal: Denies: joint pain, lumbar pain. Neuro: Denies: gait problem, headache. Psych: Reports: confusion. Objective General VS/I O: Vital Signs: Date Time Temp Pulse Resp [...] 0800 82 14 100 05/06 0749 Nasal 2.106477 cannula 05/06 0745 83 19 100 05/06 0724 99 Nasal 2.447163 28 cannula 05/06 0700 97.9 05/06 0700 [...] 12 96 05/05 2045 41 92 05/05 2030 70 14 95 05/05 2014 72 15 98 05/05 1999 97.7 05/05 1999 79 20 97 05/05 1945 86 40 94 05/05 1940 Nasal 2.944979 cannula 05/05 1930 67 14 98 24 hour I O ending at 0700: 05/06 0700 05/05 1900 Intake Total 974.00 1010.00 Output Total 2295 1075 Balance -1321.00 -65.00 Intake, IV 624.00 560.00 Intake, Oral 350 450 Output, 25 45 Drainage Output, Urine 2270 1030 Patient Weight Weight (lb): 134 Weight (oz): 2.91 Weight (kg): 60.781 Medications: Documentation of Current Medications in the Medical Record : I attest that the foregoing medication list in the medical record is true, accurate, and complete to the best of my knowledge. Active Meds + DC'd Last 24 Hrs Atorvastatin Calcium 40 MG BEDTIME PO Hydrochlorothiazide 12.5 [...] MG Q8H IV (DC) Sodium Chloride 10 ML Acetaminophen 650 MG Q4H PRN PRN PO Benzocaine/Menthol 1 EACH Q2H PRN PRN MM (CKD) Bisacodyl 10 MG ASDIR PRN RECTAL Calcium Gluconate 1,000 MG ASDIR PRN IV Sodium Chloride 100 ML Hydrocodone Bitart/Acetaminophen 1 TAB Q4H PRN PRN PO Hydrocodone Bitart/Acetaminophen 2 TAB Q4H PRN PRN PO Nicardipine HCl 25 MG ASDIR PRN IV Sodium Chloride 250 ML Ondansetron HCl 4 MG Q8H PRN PRN IV Phenol 5 SPRAY Q2H PRN PRN MM Potassium Chloride 10 MEQ ASDIR PRN PO Lactated Ringer's 1,000 ML ONCE ONE IV (DC) Physical Exam General appearance: alert, awake Head/Eyes: atraumatic, clear cornea ENT: moist mucosal membranes Neck: carotid bruit (incision site is ok) Cardiovascular: regular rate rhythm Respiratory: aerating well, clear to auscultation Abdomen: non-tender, normal bowel sounds Extremities: moves all, no clubbing Neuro/WAXER: alert, no motor deficits Diagnosis, Assessment Plan Free Text DxA P Notes Free Text DxA P Notes: ASSESSMENT: 1. Left carotid endarterectomy. 2. History of coronary artery disease. 3. History of previous carotid disease. 4. Hypothyroidism. 5. Hyperlipidemia. 6. Hypertension. PLAN: The patient is doing well, still on Cardene drip. Medications resumed by CV service. The patient is alert and oriented. Continue present care. Restart Plavix, atorvastatin, isosorbide, losartan, hydrochlorothiazide, metoprolol, aspirin for now, and levothyroxine is at 100 mcg daily. Thank you, Dr. Kc, for allowing us to participate in the care of this patient. 05/06 pt was a little confused early this am No chest pain at 1459 RPT #:[id number] END OF REPORT [facility] 2019-05-06 05:44:00 [phone] [address] PATIENT NAME: RACHEAL SABILLON ADMIT DATE: 05/05/19 ACCOUNT NO: [id number] ROOM NO: [facility] AGE: 73 REPORT TYPE: ELECTROCARDIOGRAM SEX: F ADMITTING PHYSICIAN:Rohith Kc MD ATTENDING PHYSICIAN:Rohith Kc MD Order: [id number] Test Reason : CAD Test Date/Time Stamp: SatMay 06 2019 05:44:59 Blood Pressure : / mmHG Vent. Rate : 085 BPM Atrial Rate : 085 BPM P-R Int : 164 ms QRS Dur : 072 ms QT Int : 366 ms P-R-T Axes : 073 035 073 degrees QTc Int : 435 ms Normal sinus rhythm Normal ECG When compared with ECG of 05-MAY-2019 13:29, No significant change was found Confirmed by JOSE MARC ([id number]) on 05/06/2019 6:53:38 AM Referred By: Rohith Kc Confirmed by:JOSE MARC at 0653 PATIENT NAME: RACHEAL SABILLON [facility] 2019-05-06 05:34:00 [facility] Cardiology Progress Note REPORT#:[id number] REPORT STATUS: Signed DATE:05/06/19 TIME: 0534 PATIENT: RACHEAL SABILLON UNIT #: [id number] ROOM/BED: [address] : [birth year] AGE: 73 SEX: F ATTEND: Rohith Kc MD ADM AUTHOR: Supa Kelly MD * ALL edits or amendments must be made on the electronic/computer document * Subjective Chief Complaint: Carotid disease. Patient reports: No: chest pain, palpitations, shortness of breath. Objective General VS/I O: 24 hour I O ending at 0700: 05/06 0700 05/05 1900 Intake Total 444.00 1010.00 Output Total 1760 1075 Balance -1316.00 -65.00 Intake, IV 444.00 560.00 Intake, Oral 450 Output, 15 45 Drainage Output, Urine 1745 1030 Vital Signs: Date Time Temp Pulse Resp B/P B/P Pulse O2 O2 Flow FiO2 Mean Ox Delivery Rate 05/06 0130 92 18 100 05/06 0115 [...] 12 96 05/05 2045 41 92 05/05 2030 70 14 95 05/05 2014 72 15 98 05/05 1999 97.7 05/05 1999 79 20 97 05/05 1945 86 40 94 05/05 1940 Nasal 2.107260 cannula 05/05 1930 67 14 98 05/05 1915 73 19 95 05/05 1900 76 18 93 05/05 1845 70 05/05 1830 89 96 05/05 1815 97 Nasal 2.238268 28 cannula 05/05 1815 63 23 94 05/05 1800 68 15 93 05/05 1745 67 17 94 05/05 1730 67 94 05/05 1715 74 100 05/05 1700 72 100 05/05 1645 80 21 93 05/05 1630 70 17 100 05/05 1615 73 24 100 05/05 1600 69 20 100 05/05 1600 97.8 75 20 100 Nasal 3.956855 cannula 05/05 1545 71 22 100 05/05 1530 69 19 100 05/05 1515 64 100 05/05 1500 70 100 05/05 1445 70 26 100 05/05 1430 66 14 100 05/05 1415 71 100 05/05 1400 75 100 05/05 1358 100 Nasal 2.314505 28 cannula 05/05 1345 68 17 100 05/05 1330 Aerosol 10.554203 60 mask 05/05 1330 79 100 05/05 1315 97.7 66 18 100 Aerosol 10.666827 60 mask 05/05 1315 75 17 100 05/05 1310 77 15 100 05/05 1242 100 Face mist 10.596954 60 tent 05/05 0550 97.1 70 18 164/101 95 Room air Patient Weight Weight (lb): 134 Weight (oz): 2.91 Weight (kg): 60.864 Medications: Active Meds + DC'd Last 24 Hrs Atorvastatin Calcium 40 MG BEDTIME PO Aspirin 81 [...] MG Q8H IV (DC) Sodium Chloride 10 ML Acetaminophen 650 MG Q4H PRN PRN PO Benzocaine/Menthol 1 EACH Q2H PRN PRN MM (CKD) Bisacodyl 10 MG ASDIR PRN RECTAL Calcium Gluconate 1,000 MG ASDIR PRN IV Sodium Chloride 100 ML Hydrocodone Bitart/Acetaminophen 1 TAB Q4H PRN PRN PO Hydrocodone Bitart/Acetaminophen 2 TAB Q4H PRN PRN PO Meperidine HCl 25 MG Q4H PRN PRN IM (DC) Nicardipine HCl 25 MG ASDIR PRN IV Sodium Chloride 250 ML Ondansetron HCl 4 MG Q8H PRN PRN IV Phenol 5 SPRAY Q2H PRN PRN MM Potassium Chloride 10 MEQ ASDIR PRN PO Phenylephrine HCl 0 .STK-MED ONE .ROUTE (DC) Protamine Sulfate 0 .STK-MED ONE .ROUTE (DC) Rocuronium Masterson 0 .STK-MED ONE .ROUTE (DC) Calcium Chloride [...] HCl 0 .STK-MED ONE .ROUTE (DC) Physical Exam General appearance: alert, awake, oriented Head/Eyes: atraumatic, normocephalic ENT: moist mucosal membranes Neck: no JVD Cardiovascular: CV assessment: regular rate and rhythm Respiratory: clear to auscultation, no distress Lower extremity: LE assessment: no edema Musculoskeletal: full range of motion Neuro/WAXER: alert, oriented X 3, CN II-XII intact Skin: dry, intact Wound/incision: Site condition: dressing clean dry Psychiatry: normal affect, normal judgment/insight, normal mood Results Findings/Data: Laboratory Tests 05/05 1301 Blood Gas Puncture Site [...] (Auto) (14 - 44 %) 13.2 L [place] % (Auto) (4 - 13 %) 5.7 Eos % (Auto) (0 - 6 %) 2.7 Baso % (Auto) (0 - 2 %) 0.3 Neut # (Auto) (2.0 - 7.6 K/mm3) 5.95 Lymph # (Auto) (1.0 - 3.8 K/mm3) 1.01 [place] # (Auto) (0.1 - 0.8 K/mm3) 0.44 Eos # (Auto) (0.0 - 0.2 K/mm3) 0.21 H Baso # (Auto) (0.0 - 0.2 K/mm3) 0.02 Immature Gran % (0.0 - 2.0 %) 0.7 Nucleated RBC % (0 - 1.0 %) 0.0 Nucleated RBCs # (Man) (0.0 - 0.1 K/mm3) 0.00 Laboratory Tests 05/05 1250 Chemistry Magnesium (1.6 - 2.3 MG/DL) 1.4 L Radiology data: Recent Impressions: RADIOLOGY - XR CHEST 1V 05/05 1304 Report Impression - Status: SIGNED Entered: 05/05/2019 1338 IMPRESSION: 1. Status post left carotid endarterectomy. 2. Right lower lobe atelectasis. Impression By: Sunny Balderas M.D. Diagnosis, Assessment Plan Free Text DxA P Notes Free Text DxA P Notes: IMP: Carotid disease s/p left CEA HTN CAD HLP PLAN: Continue current medical rx. Review labs Replace lytes as needed. Ambualte IS at 0709 RPT #:[id number] END OF REPORT [facility] 2019-05-05 17:59:00 [phone] [place] [address] PATIENT NAME: RACHEAL SABILLON ADMIT DATE: 05/05/19 ACCOUNT NO: [id number] ROOM NO: [facility] AGE: 73 REPORT TYPE: CONSULTATION REPORT SEX: F ADMITTING PHYSICIAN:Rohith Kc MD ATTENDING PHYSICIAN:Rohith Kc MD CONSULTATION DATE: CONSULTING PHYSICIAN: David Irving MD REASON FOR CONSULTATION: Medical management of this patient post left carotid endarterectomy. CONSULTATION REQUESTED BY: Rohith Kc MD HISTORY OF PRESENT ILLNESS: This is a 73-year-old female with history of carotid disease, had a right carotid endarterectomy before and now is here for left carotid endarterectomy. The patient did well post-surgery, is sitting up in the chair, not in any distress, and has a drain in place. PAST MEDICAL HISTORY: Includes history of coronary artery disease, hypertension, dyslipidemia, thyroid disorder with mitral regurgitation, previous history of hypothyroidism, and thrombocytopenia. PAST SURGICAL HISTORY: Splenectomy and carotid endarterectomy. SOCIAL HISTORY: The patient is a former smoker, lives with her . ALLERGIES: NO KNOWN ALLERGIES. MEDICATIONS: Noted. Please note that the patient has known coronary artery disease with single-vessel coronary artery disease and circumflex stent in 2003. FAMILY HISTORY: Positive for atherosclerotic cardiovascular disease. REVIEW OF SYSTEMS: Ten points reviewed, pertinent findings are noted above. PHYSICAL EXAMINATION: GENERAL: The patient is awake, alert, oriented, sitting up on the chair, and not in any distress. VITAL SIGNS: Noted. HEENT: Pupils are round and reactive. Oropharynx is pink. Tongue in midline. NECK: Supple. Drain in place. CHEST: No crackles or wheezing. CARDIOVASCULAR: Regular rate and rhythm. S1 and S2 normal. ABDOMEN: Soft. PATIENT NAME: RACHEAL SABILLON EXTREMITIES: No cyanosis, clubbing, or edema. CENTRAL NERVOUS SYSTEM: Cranial nerves II through XII intact. No cerebellar signs. LABORATORY STUDIES: Noted. ASSESSMENT: 1. Left carotid endarterectomy. 2. History of coronary artery disease. 3. History of previous carotid disease. 4. Hypothyroidism. 5. Hyperlipidemia. 6. Hypertension. PLAN: The patient is doing well, still on Cardene drip. Medications resumed by CV service. The patient is alert and oriented. Continue present care. Restart Plavix, atorvastatin, isosorbide, losartan, hydrochlorothiazide, metoprolol, aspirin for now, and levothyroxine is at 100 mcg daily. Thank you, Dr. Kc, for allowing us to participate in the care of this patient. Dictated By: David Irving MD WT: CON:GERARDO/CALVIN/ANATOLY Conf#: [id number]/DID#: [id number] Authenticated by David Irving MD On 05/08/2019 05:26:56 PM at 1727 PATIENT NAME: RACHEAL SABILLON [facility] 2019-05-05 16:25:00 [facility] Cardiology Progress Note REPORT#:[id number] REPORT STATUS: Signed DATE:05/05/19 TIME: 1625 PATIENT: RACHEAL SABILLON UNIT #: [id number] [address] AGE: 73 SEX: F ATTEND: Rohith Kc MD ADM AUTHOR: Supa Kelly MD * ALL edits or amendments must be made on the electronic/computer document * Subjective HPI: 73 year old female with h/o carotid disease. Now s/p left CEA. Objective General VS/I O: 24 hour I O ending at 0700: 05/05 0700 05/04 1900 Intake Total Output Total Balance Patient 60.864 kg 63.63 kg Weight Weight Standing scale Stated/Reported Measurement Method Vital Signs: Date Time Temp Pulse Resp B/P B/P Pulse O2 O2 Flow FiO2 Mean Ox Delivery Rate 05/05 1330 Aerosol 10.269338 60 mask 05/05 1330 79 100 05/05 1315 97.7 66 18 100 Aerosol 10.159323 60 mask 05/05 1315 75 17 100 05/05 1310 77 15 100 05/05 0550 97.1 70 18 164/101 95 Room air Patient Weight Weight (lb): 134 Weight (oz): 2.91 Weight (kg): 60.864 Medications: Active Meds + DC'd Last 24 Hrs Atorvastatin Calcium 40 MG BEDTIME PO Aspirin 81 [...] 1,000 MG Q8H IV Sodium Chloride 10 ML Acetaminophen 650 MG Q4H PRN PRN PO Benzocaine/Menthol 1 EACH Q2H PRN PRN MM (CKD) Bisacodyl 10 MG ASDIR PRN RECTAL Calcium Gluconate 1,000 MG ASDIR PRN IV Sodium Chloride 100 ML Hydrocodone Bitart/Acetaminophen 1 TAB Q4H PRN PRN PO Hydrocodone Bitart/Acetaminophen 2 TAB Q4H PRN PRN PO Meperidine HCl 25 MG Q4H PRN PRN IM (DC) Nicardipine HCl 25 MG ASDIR PRN IV Sodium Chloride 250 ML Ondansetron HCl 4 MG Q8H PRN PRN IV Phenol 5 SPRAY Q2H PRN PRN MM Potassium Chloride 10 MEQ ASDIR PRN PO Phenylephrine HCl 0 .STK-MED ONE .ROUTE (DC) Protamine Sulfate 0 .STK-MED ONE .ROUTE (DC) Rocuronium Masterson 0 .STK-MED ONE .ROUTE (DC) Calcium Chloride [...] HCl 0 .STK-MED ONE .ROUTE (DC) Physical Exam General appearance: alert, awake, oriented Head/Eyes: atraumatic, normocephalic ENT: moist mucosal membranes Neck: no JVD Cardiovascular: CV assessment: regular rate and rhythm Respiratory: clear to auscultation, no distress Lower extremity: LE assessment: no edema Musculoskeletal: full range of motion Neuro/WAXER: alert, oriented X 3, CN II-XII intact Skin: dry, intact Psychiatry: normal affect, normal judgment/insight, normal mood Results Findings/Data: Laboratory Tests 05/05 1301 Blood Gas Puncture Site [...] (Auto) (14 - 44 %) 13.2 L [place] % (Auto) (4 - 13 %) 5.7 Eos % (Auto) (0 - 6 %) 2.7 Baso % (Auto) (0 - 2 %) 0.3 Neut # (Auto) (2.0 - 7.6 K/mm3) 5.95 Lymph # (Auto) (1.0 - 3.8 K/mm3) 1.01 [place] # (Auto) (0.1 - 0.8 K/mm3) 0.44 Eos # (Auto) (0.0 - 0.2 K/mm3) 0.21 H Baso # (Auto) (0.0 - 0.2 K/mm3) 0.02 Immature Gran % (0.0 - 2.0 %) 0.7 Nucleated RBC % (0 - 1.0 %) 0.0 Nucleated RBCs # (Man) (0.0 - 0.1 K/mm3) 0.00 Laboratory Tests 05/05 1250 Chemistry Magnesium (1.6 - 2.3 MG/DL) 1.4 L Radiology data: Recent Impressions: RADIOLOGY - XR CHEST 1V 05/05 1304 Report Impression - Status: SIGNED Entered: 05/05/2019 1338 IMPRESSION: 1. Status post left carotid endarterectomy. 2. Right lower lobe atelectasis. Impression By: Sunny Balderas M.D. Diagnosis, Assessment Plan Free Text DxA P Notes Free Text DxA P Notes: IMP: Carotid disease s/p left CEA HTN CAD HLP PLAN: Home medicatons Ambualte IS at 0529 RPT #:[id number] END OF REPORT [facility] 2019-05-05 13:29:00 [id number] [place] [address] PATIENT NAME: RACHEAL SABILLON ADMIT DATE: 05/05/19 ACCOUNT NO: [id number] ROOM NO: [facility] AGE: 73 REPORT TYPE: ELECTROCARDIOGRAM SEX: F ADMITTING PHYSICIAN:Rohith Kc MD ATTENDING PHYSICIAN:Rohith Kc MD Order: [id number] Test Reason : post op Test Date/Time Stamp: SatMay 05 2019 13:29:56 Blood Pressure : / mmHG Vent. Rate : 073 BPM Atrial Rate : 073 BPM P-R Int : 180 ms QRS Dur : 082 ms QT Int : 396 ms P-R-T Axes : 071 030 076 degrees QTc Int : 436 ms Normal sinus rhythm Normal ECG When compared with ECG of 04-MAY-2019 10:28, No significant change was found Confirmed by JOSE MARC ([id number]) on 05/05/2019 4:06:10 PM Referred By: Rohith Kc Confirmed by:JOSE MARC at 1606 PATIENT NAME: RACHEAL SABILLON [facility] 2019-05-05 12:37:00 [facility] ([facility]) Brief Op Note REPORT#:[id number] REPORT STATUS: Signed DATE:05/05/19 TIME: 1237 PATIENT: RACHEAL SABILLON UNIT #: [id number] ROOM/BED: : 46 AGE: 73 SEX: F ATTEND: Rohith Kc MD ADM AUTHOR: Rohith Kc MD * ALL edits or amendments must be made on the electronic/computer document * Op/Inv Proc Note - Brief ORM Surgeries: Surgery Date and Time: 05/05/2019 09 Primary Procedure: LEFT CAROTID ENDARTERECTOMY Pre-procedure diagnosis: Left internal carotid artery stenosis Post-procedure diagnosis: same as pre procedure dx Procedures performed: Left carotid endarterectomy with hemshield patch arterioplasty Insertion of right subclavian central line using sonosite US guidance Primary Surgeon: Rohith Kc Manager Strategic Marketing(s): Brisa Desai PA-C Anesthesiologist: Dr. Bandar Geronimo CRNA Anesthesia: general anesthesia Findings: See detailed op report Complications: none Estimated blood loss in ml's: 150cc Specimens removed/altered: left carotid plaque Drain(s): Spencer Catheter Placed, BLAKE drain Disposition: ICU, stable at 1239 RPT #:[id number] END OF REPORT [facility] 2019-05-05 12:32:00 [id number] [address] PATIENT NAME: RACHEAL SABILLON ADMIT DATE: 05/05/19 ACCOUNT NO: [id number] ROOM NO: Z.SI04 AGE: 73 REPORT TYPE: OPERATIVE REPORT SEX: F ADMITTING PHYSICIAN:Rohith Kc MD ATTENDING PHYSICIAN:Rohith Kc MD OPERATION DATE: 05/05/2019 CARDIAC SURGERY SERVICE PREOPERATIVE DIAGNOSES: Left internal carotid stenosis. POSTOPERATIVE DIAGNOSIS: Left internal carotid stenosis. PROCEDURE: Right CVP insertion, ultrasound-guided access with SonoSite, right subclavian vein, left carotid endarterectomy, and Hemashield patch arterioplasty. SURGEON: Rohith Kc MD INTEGRATED LOGISTICS OPERATIONS MANAGER: Brisa Moser PA-C ANESTHESIA: General. COMPLICATIONS: None. DISPOSITION: The patient to surgical ICU in stable condition. PROCEDURE IN DETAIL: On 05/05/2019, the patient was brought to the operating room, placed on the operating table in supine position, prepped and draped in usual fashion. Following introduction of satisfactory general anesthesia, placement of monitoring lines, the patient prepped and draped in usual fashion and placing right subclavian CVP using ultrasound-guided access with SonoSite, right subclavian vein and Seldinger percutaneous guidewire technique. Neck extended, turned right to 45-degree angle, prepped and draped. Incision made along the anterior border of sternocleidomastoid muscle. Carotid sheath and vessels placed around the carotid arterial branches. Heparin given. Clamps were placed. The arteriotomy of the common carotid extremely tight greater than 80% stenosis of the left internal carotid artery. We extended beyond the plaque and stenosis to the more normal-appearing artery, irrigated with heparin saline solution. A shunt was placed. The endarterectomy performed, plaque feathered out nicely in the internal carotid artery. Then, we irrigated again with heparin saline solution and Hemashield patch arterioplasty closure with 5-0 Prolene was done. Prior to patch closure completion, shunt removed. All branches allowed to backbleed to flush any debris and patch closure complete. Wounds were irrigated with antibiotic saline solution and closed in layers in usual fashion. Dressing applied, and the patient to the surgical ICU in stable condition, neurologically intact. The patient remained stable. Wounds were PATIENT NAME: RACHEAL SABILLON irrigated. The patient was taken to ICU in stable condition. Dictated By: Rohith Kc MD WT: OP:GERARDO/ISAÍAS/ANATOLY Conf#: [id number]/DID#: [id number] cc: Jose Marc MD Authenticated by Rohith Kc MD On 05/17/2019 01:22:07 PM at 1322 PATIENT NAME: RACHEAL SABILLON [facility] 2019-05-04 10:28:00 [id number] [place] [id number] PATIENT NAME: RACHEAL SABILLON ADMIT DATE: ACCOUNT NO: [id number] ROOM NO: AGE: 73 REPORT TYPE: ELECTROCARDIOGRAM SEX: F ADMITTING PHYSICIAN: ATTENDING PHYSICIAN:Rohith Kc MD Order: [id number] Test Reason : PRE-OP Test Date/Time Stamp: SatMay 04 2019 10:28:37 Blood Pressure : / mmHG Vent. Rate : 064 BPM Atrial Rate : 064 BPM P-R Int : 162 ms QRS Dur : 074 ms QT Int : 394 ms P-R-T Axes : 070 033 067 degrees QTc Int : 406 ms Normal sinus rhythm Normal ECG When compared with ECG of 04-OCT-2018 08:33, Vent. rate has decreased BY 33 BPM Confirmed by SERG DAVIS, MAXEWLL ([id number]) on 05/04/2019 12:18:13 PM Referred By: Rohith Kc Confirmed by:MAXWELL COLÓN MD at 1218 PATIENT NAME: RACHEAL SABILLON [facility] 2019-05-04 10:28:00 [id number] [place] [id number] PATIENT NAME: RACHEAL SABILLON ADMIT DATE: ACCOUNT NO: [id number] ROOM NO: AGE: 73 REPORT TYPE: ELECTROCARDIOGRAM SEX: F ADMITTING PHYSICIAN: ATTENDING PHYSICIAN:Rohith Kc MD Order: [id number] Test Reason : PRE-OP Test Date/Time Stamp: SatMay 04 2019 10:28:37 Blood Pressure : / mmHG Vent. Rate : 064 BPM Atrial Rate : 064 BPM P-R Int : 162 ms QRS Dur : 074 ms QT Int : 394 ms P-R-T Axes : 070 033 067 degrees QTc Int : 406 ms Normal sinus rhythm Normal ECG When compared with ECG of 04-OCT-2018 08:33, Vent. rate has decreased BY 33 BPM Reconfirmed by JOSE MARC ([id number]) on 05/04/2019 5:11:28 PM Referred By: Rohith Kc Confirmed by:JOSE MARC at 1711 PATIENT NAME: RACHEAL SABILLON [facility] 2018-11-17 21:37:00 [phone] [place] [address] PATIENT NAME: RACHEAL SABILLON ADMIT DATE: 09/30/18 ACCOUNT NO: [id number] ROOM NO: Z.SI07 AGE: 73 REPORT TYPE: DISCHARGE SUMMARY REPORT SEX: F ADMITTING PHYSICIAN:Rohith Kc MD ATTENDING PHYSICIAN:Rohith cK MD ADMISSION DATE: 09/30/2018 DISCHARGE DATE: 10/04/2018 DISCHARGE DIAGNOSES: Right internal carotid artery stenosis, status post right carotid endarterectomy, moderate coronary artery disease, hypertension, and hypercholesterolemia. HOSPITAL COURSE: The patient is a 73-year-old female, who is status post a coronary artery stent in the past and underwent cardiac catheterization, was found to have moderate coronary artery disease and she also had a carotid duplex imaging done, which showed high-grade right internal carotid artery stenosis about 90% and the left about 70%. She did undergo a carotid artery angiogram on 09/20/2018, and was found to have a high-grade 90% stenosis of the right internal carotid artery and 70% on the left side. The patient was subsequently admitted on 09/30/2018 and taken to the operating room where she underwent a right carotid endarterectomy with Hemashield patch arterioplasty. The patient tolerated the procedure well and was transferred to ICU in a stable condition where she was temporarily placed on a Cardene drip for management of her blood pressure. Once her oral antihypertensive medications were restarted, she was weaned off the drip. Her BLAKE drain was removed on postop day #1. Her neuro status remained intact. She was ambulating independently and with assistance of physical therapy. She was transferred to the CVU unit and she was discharged to home in a stable condition. She was instructed to follow up with Dr. Kc in 1 week. She is to continue medications per the discharge MAR and also home health services was arranged for this patient. Dictated By: RADHA Morton for Rohith Kc MD WT: DS:GERARDO/KIM/ANATOLY Conf#: [id number]/DID#: [id number] Authenticated by RADHA Morton On 11/18/2018 08:54:11 PM Authenticated by Rohith Kc MD On 11/18/2018 10:06:10 PM PATIENT NAME: RACHEAL SABILLON at 2206 at 2206 PATIENT NAME: RACHEAL SABILLON [facility] 2018-10-04 08:46:00 [facility] ([facility] Cardiovascular Surgery Prog REPORT#:[id number] REPORT STATUS: Signed DATE:10/04/18 TIME: 08 PATIENT: RACHEAL SABILLON UNIT #: [id number] ROOM/BED: [address] : [address] AGE: 72 SEX: F ATTEND: Rohith Kc MD ADM AUTHOR: Ladi Guido NP * ALL edits or amendments must be made on the electronic/computer document * General Post-op: day 3 Status post: Right CEA Subjective Patient reports: No: complaints, nausea, vomiting, pain. Nursing reports: No: complaints. Comments: seen pt walking in the hallway denies SOB, CP, pain Review of Systems Constitutional: Denies: chills, fatigue, fever, generalized weakness. Respiratory: Denies: NEGRO (dyspnea on exertion), SOB. Cardiovascular: Denies: chest pain, NEGRO (dyspnea on exertion), edema, orthopnea. Objective Physical Exam VS/I O: Last Documented: Result Date Time Pulse Ox 97 10/04 07 FiO2 21 10/04 07 O2 Delivery Room air 10/04 718 Temp 36.6 10/04 0400 B/P 151/74 10/03 1818 B/P Mean 103 10/03 1818 Pulse 96 10/03 1818 Resp 30 10/03 1818 O2 Flow Rate 2.236896 10/03 0715 24 hour I O ending at 0700: 10/04 0700 10/03 1900 Intake Total 120 1360.00 Output Total 600 200 Balance -480 1160.00 Intake, IV 500.00 Intake, Oral 120 860 Number Voids 3 Output, Urine 600 200 Patient Weight Weight (lb): 156 Weight (oz): 3.65 Weight (kg): 70.76 Medications: Active Meds + DC'd Last 24 Hrs Sodium Chloride 500 ML BOLUS ONCE ONE IV [...] MG ASDIR PRN IV Sodium Chloride 100 ML Nicardipine HCl 25 MG ASDIR PRN IV Sodium Chloride 250 ML Nifedipine 10 MG Q4H PRN PRN SL Ondansetron HCl 4 MG Q8H PRN PRN IV Phenol 5 SPRAY Q2H PRN PRN MM Potassium Chloride 10 MEQ ASDIR PRN PO Magnesium Hydroxide 30 ML ASDIR PRN PO Zolpidem Tartrate 5 MG BEDTIME PRN PRN PO General appearance: alert, awake, oriented, no acute distress, no respiratory distress Wound/incision: Location: right lateral neck incision Site condition: dressing clean dry, dressing intact Neck: tenderness (right neck), Right neck swelling Cardiovascular: BP/pulses equal bilat., normal heart sounds, regular rate rhythm Respiratory: aerating well, clear to auscultation, symmetric expansion, no distress Abdomen: soft, non-tender, normal bowel sounds, no distention Genitourinary: no spencer Extremities: moves all, no edema Neuro/WAXER: alert, oriented X 3, CNII-XII intacte, normal gait, normal speech, no motor deficits, no sensory deficits, Tongue is midline without deviation Diagnosis, Assessment Plan Free Text A P: This is a 72 Y/F with LITTLE stenosis S/p Right CEA-tongue is midline without deviation, left facial droop. Right mild facial swelling On statin/plavix/aspirin DVT prophylaxis-SCDs and TEDs Encourage IS and ambulation HTN- well controlled CM consult for home with [facility] Plan: D/c planning home with [facility] today when VS is stable and pt is ready. Follwo up with Dr. Kc after 1-2 weeks in the clinic. Plan discussed with: patient, collaborating MD (DR. Kc) at 1921 RPT #:[id number] END OF REPORT [facility] 2018-10-04 08:46:00 [facility] ([facility]) Cardiovascular Surgery Prog REPORT#:[id number] REPORT STATUS: Signed DATE:10/04/18 TIME: 845 PATIENT: RACHEAL SABILLON UNIT #: [id number] ROOM/BED: [facility] : 46 AGE: 72 SEX: F ATTEND: Rohith Kc MD ADM AUTHOR: Ladi Guido NP * ALL edits or amendments must be made on the electronic/computer document * General Post-op: day 3 Status post: Right CEA Subjective Patient reports: No: complaints, nausea, vomiting, pain. Nursing reports: No: complaints. Comments: seen pt walking in the hallway denies SOB, CP, pain Review of Systems Constitutional: Denies: chills, fatigue, fever, generalized weakness. Respiratory: Denies: NEGRO (dyspnea on exertion), SOB. Cardiovascular: Denies: chest pain, NEGRO (dyspnea on exertion), edema, orthopnea. Objective Physical Exam VS/I O: Last Documented: Result Date Time Pulse Ox 97 10/04 0719 FiO2 21 10/04 07 O2 Delivery Room air 10/04 718 Temp 36.6 10/04 0400 B/P 151/74 10/03 1818 B/P Mean 103 10/03 1818 Pulse 96 10/03 1818 Resp 30 10/03 1818 O2 Flow Rate 2.130875 10/03 0715 24 hour I O ending at 0700: 10/04 0700 10/03 1900 Intake Total 120 1360.00 Output Total 600 200 Balance -480 1160.00 Intake, IV 500.00 Intake, Oral 120 860 Number Voids 3 Output, Urine 600 200 Patient Weight Weight (lb): 156 Weight (oz): 3.65 Weight (kg): 70.76 Medications: Active Meds + DC'd Last 24 Hrs Sodium Chloride 500 ML BOLUS ONCE ONE IV [...] MG ASDIR PRN IV Sodium Chloride 100 ML Nicardipine HCl 25 MG ASDIR PRN IV Sodium Chloride 250 ML Nifedipine 10 MG Q4H PRN PRN SL Ondansetron HCl 4 MG Q8H PRN PRN IV Phenol 5 SPRAY Q2H PRN PRN MM Potassium Chloride 10 MEQ ASDIR PRN PO Magnesium Hydroxide 30 ML ASDIR PRN PO Zolpidem Tartrate 5 MG BEDTIME PRN PRN PO General appearance: alert, awake, oriented, no acute distress, no respiratory distress Wound/incision: Location: right lateral neck incision Site condition: dressing clean dry, dressing intact Neck: tenderness (right neck), Right neck swelling Cardiovascular: BP/pulses equal bilat., normal heart sounds, regular rate rhythm Respiratory: aerating well, clear to auscultation, symmetric expansion, no distress Abdomen: soft, non-tender, normal bowel sounds, no distention Genitourinary: no spencer Extremities: moves all, no edema Neuro/WAXER: alert, oriented X 3, CNII-XII intacte, normal gait, normal speech, no motor deficits, no sensory deficits, Tongue is midline without deviation Diagnosis, Assessment Plan Free Text A P: This is a 72 Y/F with LITTLE stenosis S/p Right CEA-tongue is midline without deviation, left facial droop. Right mild facial swelling On statin/plavix/aspirin DVT prophylaxis-SCDs and TEDs Encourage IS and ambulation HTN- well controlled CM consult for home with [facility] Plan: D/c planning home with [facility] today when VS is stable and pt is ready. Follwo up with Dr. Kc after 1-2 weeks in the clinic. Plan discussed with: patient, collaborating MD (DR. Kc) at 1921 at 1923 RPT #:[id number] END OF REPORT [facility] 2018-10-04 08:33:00 [id number] [place] [address] PATIENT NAME: RACHEAL SABILLON ADMIT DATE: 09/30/18 ACCOUNT NO: [id number] ROOM NO: [facility] AGE: 72 REPORT TYPE: ELECTROCARDIOGRAM SEX: F ADMITTING PHYSICIAN:Rohith Kc MD ATTENDING PHYSICIAN:Rohith Kc MD Order: [id number] Test Reason : CAD Test Date/Time Stamp: SatOct 04 2018 08:33:11 Blood Pressure : / mmHG Vent. Rate : 097 BPM Atrial Rate : 097 BPM P-R Int : 146 ms QRS Dur : 080 ms QT Int : 328 ms P-R-T Axes : 073 027 079 degrees QTc Int : 416 ms Normal sinus rhythm Normal ECG When compared with ECG of 01-OCT-2018 08:08, No significant change was found Confirmed by JOSE MARC ([id number]) on 10/04/2018 10:11:09 AM Referred By: Rohith Kc Confirmed by:JOSE MARC at 1011 PATIENT NAME: RACHEAL SABILLON [facility] 2018-10-04 06:13:00 [facility] Cardiology Progress Note REPORT#:[id number] REPORT STATUS: Signed DATE:10/04/18 TIME: 612 PATIENT: RACHEAL SABILLON UNIT #: [id number] ROOM[address]BED: [address] : [address] AGE: 72 SEX: F ATTEND: Roihth Kc MD ADM AUTHOR: Jose Marc MD * ALL edits or amendments must be made on the electronic/computer document * Subjective Chief Complaint: feels better Patient reports: No: complaints, chest pain, palpitations, shortness of breath, swelling. Nursing reports: No: complaints. Objective General VS/I O: 24 hour I O ending at 0700: [...] 99 10/03 0715 98.4 10/03 0715 Nasal 2.111295 cannula 10/03 0700 87 17 123/77 95 100 10/03 0630 85 15 100 Patient Weight Weight (lb): 156 Weight (oz): 3.65 Weight (kg): 70.76 Medications: Active Meds + DC'd Last 24 Hrs Sodium Chloride 500 ML BOLUS ONCE ONE IV [...] MG ASDIR PRN IV Sodium Chloride 100 ML Nicardipine HCl 25 MG ASDIR PRN IV Sodium Chloride 250 ML Nifedipine 10 MG Q4H PRN PRN SL Ondansetron HCl 4 MG Q8H PRN PRN IV Phenol 5 SPRAY Q2H PRN PRN MM Potassium Chloride 10 MEQ ASDIR PRN PO Magnesium Hydroxide 30 ML ASDIR PRN PO Zolpidem Tartrate 5 MG BEDTIME PRN PRN PO Status post: R CEA Physical Exam General appearance: alert, awake, oriented, no acute distress, pleasant, conversational, mental status normal, no respiratory distress Head/Eyes: atraumatic, normocephalic ENT: moist mucosal membranes Neck: no bruit/NL carotids (R CEA), no JVD Cardiovascular: CV assessment: regular rate and rhythm, BP pulses = bilaterally, no murmur Respiratory: clear to auscultation, no distress Abdomen: soft, non-tender, no mass/organomegaly Lower extremity: LE assessment: no edema, 2+ peripheral pulses Musculoskeletal: full range of motion Neuro/WAXER: alert, oriented X 3, CN II-XII intact, no motor deficits Skin: dry, intact Wound/incision: Site condition: dressing clean dry Psychiatry: normal affect, normal judgment/insight, normal mood, no hallucinations Results Results: labs reviewed, vital signs stable, EKG personally reviewed, rhythm personally rev'd, current med profile rev'd EKG Interpretation: normal sinus rhythm Telemetry Interpretation: ST Diagnosis, Assessment Plan Consultants: cardiovascular surgery Code status: full code Plan discussed with: patient, patient care team, nurse Free Text DxA P Notes Free Text DxA P Notes: IMP: Carotid vascular disease s/p right CEA CAD - stable HTN HLP sinus tachycardia PLAN: Ambulate Continue current medications Home today at 1021 RPT #:[id number] END OF REPORT [facility] 2018-10-03 17:54:00 [facility] ([facility]) Hospitalist Progress Note REPORT#:[id number] REPORT STATUS: Signed DATE:10/03/18 TIME: 1754 PATIENT: RACHEAL SABILLON UNIT #: [id number] ROOM/BED: [address] : [address] AGE: 72 SEX: F ATTEND: Rohith Kc MD ADM AUTHOR: Mariana Humphrey MD * ALL edits or amendments must be made on the electronic/computer document * Subjective Chief Complaint: patient is doing well. Review of Systems All systems rev neg: except as marked Objective Physical Exam Head/Eyes: EOMI, PERRL Neck: right side of neck dressing intact Cardiovascular: normal heart sounds, regular rate rhythm Respiratory: aerating well, clear to auscultation Abdomen: non-tender, normal bowel sounds Musculoskeletal: normal inspection Psychiatry: normal affect, normal judgment/insight Diagnosis, Assessment Plan Free Text DxA P Notes Free text DxA P notes: Diagnosis, Assessment Plan pt is 72 y/o female with h/o CAD and stent , HTN, HLD, hypothyroidism underwent Procedures performed: Right carotid endarterectomy with hemashield patch arterioplasty. pt [...] getting discharge home with home myrna. Quality Medications Current medication review: I attest that the foregoing medication list in the medical record is true, accurate, and complete to the best of my knowledge. Advanced Care Plan 65 or Older Discussed with: patient, surrogate decis. maker Discussion included: code status (full code) Tobacco Use/Counseling Tobacco use/counseling: non tobacco user HTN Screening/Follow-up B/P assess/follow-up: pre-existing hx of HTN at 1312 RPT #:[id number] END OF REPORT [facility] 2018-10-03 11:59:00 [facility] ([facility]) Cardiovascular Surgery Prog REPORT#:[id number] REPORT STATUS: Signed DATE:10/03/18 TIME: 1159 PATIENT: RACHEAL SABILLON UNIT #: [id number] ROOM/BED: [address] : [birth year] AGE: 72 SEX: F ATTEND: Rohith Kc MD ADM AUTHOR: Ladi Guido NP * ALL edits or amendments must be made on the electronic/computer document * General Post-op: day 2 Status post: Right CEA Subjective Patient reports: No: complaints, nausea, vomiting, pain. Nursing reports: No: complaints. Comments: seen pt OOB in the chair denies SOB, CP, pain Review of Systems Constitutional: Denies: chills, fatigue, fever, generalized weakness. Respiratory: Denies: NEGRO (dyspnea on exertion), SOB. Cardiovascular: Denies: chest pain, NEGRO (dyspnea on exertion), edema, orthopnea. Objective Physical Exam VS/I O: Last Documented: Result Date Time Pulse Ox 86 10/03 1136 Pulse 96 10/03 1136 Resp 27 10/03 1136 B/P 130/76 10/03 1101 B/P Mean 95 10/03 1101 O2 Delivery Room air 10/03 1043 Temp 36.7 10/03 1043 O2 Flow Rate 2.968918 10/03 0715 FiO2 28 10/02 2005 24 hour I O ending at 0700: 10/03 0700 10/02 1900 Intake Total 160 315 Output Total Balance 160 315 Intake, Oral 160 315 Number Voids 6 3 Patient Weight Weight (lb): 156 Weight (oz): 3.65 Weight (kg): 70.76 Medications: Active Meds + DC'd Last 24 Hrs Famotidine 20 MG Q12HR PO Nifedipine 10 [...] MG ASDIR PRN IV Sodium Chloride 100 ML Nicardipine HCl 25 MG ASDIR PRN IV Sodium Chloride 250 ML Nifedipine 10 MG Q4H PRN PRN SL Ondansetron HCl 4 MG Q8H PRN PRN IV Phenol 5 SPRAY Q2H PRN PRN MM Potassium Chloride 10 MEQ ASDIR PRN PO Magnesium Hydroxide 30 ML ASDIR PRN PO Zolpidem Tartrate 5 MG BEDTIME PRN PRN PO General appearance: alert, awake, oriented, no acute distress Wound/incision: Location: right lateral neck incision Site condition: dressing clean dry, dressing intact, mild swelling Neck: tenderness (right neck), Right neck swelling Cardiovascular: BP/pulses equal bilat., normal heart sounds, regular rate rhythm Respiratory: aerating well, clear to auscultation, symmetric expansion, no distress Abdomen: soft, non-tender, normal bowel sounds, no distention Genitourinary: no spencer Extremities: moves all, no edema Neuro/WAXER: alert, oriented X 3, CNII-XII intacte, normal gait, normal speech, no motor deficits, no sensory deficits, Tongue is midline without deviation Results Findings/Data: Laboratory Tests 10/030 Chemistry Sodium (137 - 145 MMOL/L) 137 [...] - 2.3 MG/DL) 1.8 Laboratory Tests 10/03 042 Hematology WBC (3.8 - 9.8 K/MM3) 11.9 [...] (Auto) (14 - 44 %) 10.5 L [place] % (Auto) (4 - 13 %) 12.9 Eos % (Auto) (0 - 6 %) 0.5 Baso % (Auto) (0 - 2 %) 0.2 Neut # (Auto) (2.0 - 7.6 K/mm3) 9.00 H Lymph # (Auto) (1.0 - 3.8 K/mm3) 1.25 [place] # (Auto) (0.1 - 0.8 K/mm3) 1.54 H Eos # (Auto) (0.0 - 0.2 K/mm3) 0.06 Baso # (Auto) (0.0 - 0.2 K/mm3) 0.02 Immature Gran % (0.0 - 2.0 %) 0.3 Nucleated RBC % (0 - 1.0 %) 0.0 Nucleated RBCs # (Man) (0.0 - 0.1 K/mm3) 0.00 Diagnosis, Assessment Plan Free Text A P: This is a 72 Y/F with LITTLE stenosis S/p Right CEA-tongue is midline without deviation, left facial droop. Right facial swelling On statin/plavix/aspirin DVT prophylaxis-SCDs and TEDs Encourage IS and ambulation HTN- well controlled CM consult for home with [facility] Plan: D/c planning home with [facility] today or dexter. when VS is stable and pt is ready. RN reported that pt desaturate to O2 sat 90%'s-95%'s while resting. Then after walking she desat 90%'s. While sleeping pt O2 sat running between 88%-92%. Consulted CM for home oxygen to go home with. CM is following. Discussed with Dr. Kc. Plan discussed with: patient, collaborating MD (Dr. Kc) at 1236 RPT #:[id number] END OF REPORT [facility] 2018-10-03 11:59:00 [facility] ([facility]) Cardiovascular Surgery Prog REPORT#:[id number] REPORT STATUS: Signed DATE:10/03/18 TIME: 1159 PATIENT: RACHEAL SABILLON UNIT #: [id number] ROOM/BED: [address] : [birth year] AGE: 72 SEX: F ATTEND: Rohith Kc MD ADM AUTHOR: Ladi Guido NP * ALL edits or amendments must be made on the electronic/computer document * See Addendum General Post-op: day 2 Status post: Right CEA Subjective Patient reports: No: complaints, nausea, vomiting, pain. Nursing reports: No: complaints. Comments: seen pt OOB in the chair denies SOB, CP, pain Review of Systems Constitutional: Denies: chills, fatigue, fever, generalized weakness. Respiratory: Denies: NEGRO (dyspnea on exertion), SOB. Cardiovascular: Denies: chest pain, NEGRO (dyspnea on exertion), edema, orthopnea. Objective Physical Exam VS/I O: Last Documented: Result Date Time Pulse Ox 86 10/03 1136 Pulse 96 10/03 1136 Resp 27 10/03 1136 B/P 130/76 10/03 1101 B/P Mean 95 10/03 1101 O2 Delivery Room air 10/03 1043 Temp 36.7 10/03 1043 O2 Flow Rate 2.282951 10/03 0715 FiO2 28 10/02 2005 24 hour I O ending at 0700: 10/03 0700 10/02 1900 Intake Total 160 315 Output Total Balance 160 315 Intake, Oral 160 315 Number Voids 6 3 Patient Weight Weight (lb): 156 Weight (oz): 3.65 Weight (kg): 70.76 Medications: Active Meds + DC'd Last 24 Hrs Famotidine 20 MG Q12HR PO Nifedipine 10 [...] MG ASDIR PRN IV Sodium Chloride 100 ML Nicardipine HCl 25 MG ASDIR PRN IV Sodium Chloride 250 ML Nifedipine 10 MG Q4H PRN PRN SL Ondansetron HCl 4 MG Q8H PRN PRN IV Phenol 5 SPRAY Q2H PRN PRN MM Potassium Chloride 10 MEQ ASDIR PRN PO Magnesium Hydroxide 30 ML ASDIR PRN PO Zolpidem Tartrate 5 MG BEDTIME PRN PRN PO General appearance: alert, awake, oriented, no acute distress Wound/incision: Location: right lateral neck incision Site condition: dressing clean dry, dressing intact, mild swelling Neck: tenderness (right neck), Right neck swelling Cardiovascular: BP/pulses equal bilat., normal heart sounds, regular rate rhythm Respiratory: aerating well, clear to auscultation, symmetric expansion, no distress Abdomen: soft, non-tender, normal bowel sounds, no distention Genitourinary: no spencer Extremities: moves all, no edema Neuro/WAXER: alert, oriented X 3, CNII-XII intacte, normal gait, normal speech, no motor deficits, no sensory deficits, Tongue is midline without deviation Results Findings/Data: Laboratory Tests 10/04 419 Chemistry Sodium (137 - [...] (Auto) (14 - 44 %) 10.5 L [place] % (Auto) (4 - 13 %) 12.9 Eos % (Auto) (0 - 6 %) 0.5 Baso % (Auto) (0 - 2 %) 0.2 Neut # (Auto) (2.0 - 7.6 K/mm3) 9.00 H Lymph # (Auto) (1.0 - 3.8 K/mm3) 1.25 [place] # (Auto) (0.1 - 0.8 K/mm3) 1.54 H Eos # (Auto) (0.0 - 0.2 K/mm3) 0.06 Baso # (Auto) (0.0 - 0.2 K/mm3) 0.02 Immature Gran % (0.0 - 2.0 %) 0.3 Nucleated RBC % (0 - 1.0 %) 0.0 Nucleated RBCs # (Man) (0.0 - 0.1 K/mm3) 0.00 Diagnosis, Assessment Plan Free Text A P: This is a 72 Y/F with LITTLE stenosis S/p Right CEA-tongue is midline without deviation, left facial droop. Right facial swelling On statin/plavix/aspirin DVT prophylaxis-SCDs and TEDs Encourage IS and ambulation HTN- well controlled CM consult for home with [facility] Plan: D/c planning home with [facility] today or dexter. when VS is stable [...] Ladi Guido NP for Rohith Kc MD 1520 RN reported pt BP dropped SBP 80's-70's pt is asymptomatic, denies CP, dizziness or headache. Ordered IV bolus NSS. BP came back up to 116/78. Will continue to monitor. Family at the bedside. Will hold the plan for discharge today. Discussed with Dr. Kc. at 1543 RPT #:[id number] END OF REPORT [facility] 2018-10-03 11:59:00 [facility] ([facility]) Cardiovascular Surgery Prog REPORT#:[id number] REPORT STATUS: Signed DATE:10/03/18 TIME: 1159 PATIENT: RACHEAL SABILLON UNIT #: [id number] ROOM/BED: [address] : [birth year] AGE: 72 SEX: F ATTEND: Rohith cK MD ADM AUTHOR: Ladi Guido [employer] SEWING MACHINE OPERATOR * ALL edits or amendments must be made on the electronic/computer document * See Addendum General Post-op: day 2 Status post: Right CEA Subjective Patient reports: No: complaints, nausea, vomiting, pain. Nursing reports: No: complaints. Comments: seen pt OOB in the chair denies SOB, CP, pain Review of Systems Constitutional: Denies: chills, fatigue, fever, generalized weakness. Respiratory: Denies: NEGRO (dyspnea on exertion), SOB. Cardiovascular: Denies: chest pain, NEGRO (dyspnea on exertion), edema, orthopnea. Objective Physical Exam VS/I O: Last Documented: Result Date Time Pulse Ox 86 10/03 1136 Pulse 96 10/03 1136 Resp 27 10/03 1136 B/P 130/76 10/03 1101 B/P Mean 95 10/03 1101 O2 Delivery Room air 10/03 1043 Temp 36.7 10/03 1043 O2 Flow Rate 2.749092 10/03 0715 FiO2 28 10/02 2005 24 hour I O ending at 0700: 10/03 0700 10/02 1900 Intake Total 160 315 Output Total Balance 160 315 Intake, Oral 160 315 Number Voids 6 3 Patient Weight Weight (lb): 156 Weight (oz): 3.65 Weight (kg): 70.76 Medications: Active Meds + DC'd Last 24 Hrs Famotidine 20 MG Q12HR PO Nifedipine 10 [...] MG ASDIR PRN IV Sodium Chloride 100 ML Nicardipine HCl 25 MG ASDIR PRN IV Sodium Chloride 250 ML Nifedipine 10 MG Q4H PRN PRN SL Ondansetron HCl 4 MG Q8H PRN PRN IV Phenol 5 SPRAY Q2H PRN PRN MM Potassium Chloride 10 MEQ ASDIR PRN PO Magnesium Hydroxide 30 ML ASDIR PRN PO Zolpidem Tartrate 5 MG BEDTIME PRN PRN PO General appearance: alert, awake, oriented, no acute distress Wound/incision: Location: right lateral neck incision Site condition: dressing clean dry, dressing intact, mild swelling Neck: tenderness (right neck), Right neck swelling Cardiovascular: BP/pulses equal bilat., normal heart sounds, regular rate rhythm Respiratory: aerating well, clear to auscultation, symmetric expansion, no distress Abdomen: soft, non-tender, normal bowel sounds, no distention Genitourinary: no spencer Extremities: moves all, no edema Neuro/WAXER: alert, oriented X 3, CNII-XII intacte, normal gait, normal speech, no motor deficits, no sensory deficits, Tongue is midline without deviation Results Findings/Data: Laboratory Tests 10/03 0420 Chemistry Sodium (137 - [...] (Auto) (14 - 44 %) 10.5 L [place] % (Auto) (4 - 13 %) 12.9 Eos % (Auto) (0 - 6 %) 0.5 Baso % (Auto) (0 - 2 %) 0.2 Neut # (Auto) (2.0 - 7.6 K/mm3) 9.00 H Lymph # (Auto) (1.0 - 3.8 K/mm3) 1.25 [place] # (Auto) (0.1 - 0.8 K/mm3) 1.54 H Eos # (Auto) (0.0 - 0.2 K/mm3) 0.06 Baso # (Auto) (0.0 - 0.2 K/mm3) 0.02 Immature Gran % (0.0 - 2.0 %) 0.3 Nucleated RBC % (0 - 1.0 %) 0.0 Nucleated RBCs # (Man) (0.0 - 0.1 K/mm3) 0.00 Diagnosis, Assessment Plan Free Text A P: This is a 72 Y/F with LITTLE stenosis S/p Right CEA-tongue is midline without deviation, left facial droop. Right facial swelling On statin/plavix/aspirin DVT prophylaxis-SCDs and TEDs Encourage IS and ambulation HTN- well controlled CM consult for home with [facility] Plan: D/c planning home with [facility] today or dexter. when VS is stable [...] Ladi Guido NP for Rohith Kc MD 1520 RN reported pt BP dropped SBP 80's-70's pt is asymptomatic, denies CP, dizziness or headache. Ordered IV bolus NSS. BP came back up to 116/78. Will continue to monitor. Family at the bedside. Will hold the plan for discharge today. Discussed with Dr. Kc. at 1543 Addendum 2: 10/03/18 1622 by Ladi Guido NP for Rohith Kc MD at 1623 RPT #:[id number] END OF REPORT [facility] 2018-10-03 11:59:00 [facility] ([facility]) Cardiovascular Surgery Prog REPORT#:[id number] REPORT STATUS: Signed DATE:10/03/18 TIME: 1159 PATIENT: RACHEAL SABILLON UNIT #: [id number] ROOM/BED: [facility] : 46 AGE: 72 SEX: F ATTEND: Rohith Kc MD ADM AUTHOR: Ladi Guido NP * ALL edits or amendments must be made on the electronic/computer document * See Addendum General Post-op: day 2 Status post: Right CEA Subjective Patient reports: No: complaints, nausea, vomiting, pain. Nursing reports: No: complaints. Comments: seen pt OOB in the chair denies SOB, CP, pain Review of Systems Constitutional: Denies: chills, fatigue, fever, generalized weakness. Respiratory: Denies: NEGRO (dyspnea on exertion), SOB. Cardiovascular: Denies: chest pain, NEGRO (dyspnea on exertion), edema, orthopnea. Objective Physical Exam VS/I O: Last Documented: Result Date Time Pulse Ox 86 10/03 1136 Pulse 96 10/03 1136 Resp 27 10/03 1136 B/P 130/76 10/03 1101 B/P Mean 95 10/03 1101 O2 Delivery Room air 10/03 1043 Temp 36.7 10/03 1043 O2 Flow Rate 2.288793 10/03 0715 FiO2 28 10/02 2005 24 hour I O ending at 0700: 10/03 0700 10/02 1900 Intake Total 160 315 Output Total Balance 160 315 Intake, Oral 160 315 Number Voids 6 3 Patient Weight Weight (lb): 156 Weight (oz): 3.65 Weight (kg): 70.76 Medications: Active Meds + DC'd Last 24 Hrs Famotidine 20 MG Q12HR PO Nifedipine 10 [...] MG ASDIR PRN IV Sodium Chloride 100 ML Nicardipine HCl 25 MG ASDIR PRN IV Sodium Chloride 250 ML Nifedipine 10 MG Q4H PRN PRN SL Ondansetron HCl 4 MG Q8H PRN PRN IV Phenol 5 SPRAY Q2H PRN PRN MM Potassium Chloride 10 MEQ ASDIR PRN PO Magnesium Hydroxide 30 ML ASDIR PRN PO Zolpidem Tartrate 5 MG BEDTIME PRN PRN PO General appearance: alert, awake, oriented, no acute distress Wound/incision: Location: right lateral neck incision Site condition: dressing clean dry, dressing intact, mild swelling Neck: tenderness (right neck), Right neck swelling Cardiovascular: BP/pulses equal bilat., normal heart sounds, regular rate rhythm Respiratory: aerating well, clear to auscultation, symmetric expansion, no distress Abdomen: soft, non-tender, normal bowel sounds, no distention Genitourinary: no spencer Extremities: moves all, no edema Neuro/WAXER: alert, oriented X 3, CNII-XII intacte, normal gait, normal speech, no motor deficits, no sensory deficits, Tongue is midline without deviation Results Findings/Data: Laboratory Tests 10/04 419 Chemistry Sodium (137 - [...] (Auto) (14 - 44 %) 10.5 L [place] % (Auto) (4 - 13 %) 12.9 Eos % (Auto) (0 - 6 %) 0.5 Baso % (Auto) (0 - 2 %) 0.2 Neut # (Auto) (2.0 - 7.6 K/mm3) 9.00 H Lymph # (Auto) (1.0 - 3.8 K/mm3) 1.25 [place] # (Auto) (0.1 - 0.8 K/mm3) 1.54 H Eos # (Auto) (0.0 - 0.2 K/mm3) 0.06 Baso # (Auto) (0.0 - 0.2 K/mm3) 0.02 Immature Gran % (0.0 - 2.0 %) 0.3 Nucleated RBC % (0 - 1.0 %) 0.0 Nucleated RBCs # (Man) (0.0 - 0.1 K/mm3) 0.00 Diagnosis, Assessment Plan Free Text A P: This is a 72 Y/F with LITTLE stenosis S/p Right CEA-tongue is midline without deviation, left facial droop. Right facial swelling On statin/plavix/aspirin DVT prophylaxis-SCDs and TEDs Encourage IS and ambulation HTN- well controlled CM consult for home with [facility] Plan: D/c planning home with [facility] today or dexter. when VS is stable [...] Addendum 1: 10/03/18 1541 by Ladi Guido [employer] MACHINE OPERATOR 1520 RN reported pt BP dropped SBP 80's-70's pt is asymptomatic, denies CP, dizziness or headache. Ordered IV bolus NSS. BP came back up to 116/78. Will continue to monitor. Family at the bedside. Will hold the plan for discharge today. Discussed with Dr. Kc. at 1543 at 1927 Addendum 2: 10/03/18 1622 by Ladi Guido NP at 1623 at 1927 RPT #:[id number] END OF REPORT [facility] 2018-10-03 11:59:00 [facility] Cardiovascular Surgery Prog REPORT#:[id number] REPORT STATUS: Signed DATE:10/03/18 TIME: 1159 PATIENT: RACHEAL SABILLON UNIT #: [id number] ROOM/BED: [address] : [birth year] AGE: 72 SEX: F ATTEND: Rohith Kc MD ADM AUTHOR: Ladi Guido NP * ALL edits or amendments must be made on the electronic/computer document * See Addendum General Post-op: day 2 Status post: Right CEA Subjective Patient reports: No: complaints, nausea, vomiting, pain. Nursing reports: No: complaints. Comments: seen pt OOB in the chair denies SOB, CP, pain Review of Systems Constitutional: Denies: chills, fatigue, fever, generalized weakness. Respiratory: Denies: NEGRO (dyspnea on exertion), SOB. Cardiovascular: Denies: chest pain, NEGRO (dyspnea on exertion), edema, orthopnea. Objective Physical Exam VS/I O: Last Documented: Result Date Time Pulse Ox 86 10/03 1136 Pulse 96 10/03 1136 Resp 27 10/03 1136 B/P 130/76 10/03 1101 B/P Mean 95 10/03 1101 O2 Delivery Room air 10/03 1043 Temp 36.7 10/03 1043 O2 Flow Rate 2.699103 10/03 0715 FiO2 28 10/02 2006 24 hour I O ending at 0700: 10/03 0700 10/02 1900 Intake Total 160 315 Output Total Balance 160 315 Intake, Oral 160 315 Number Voids 6 3 Patient Weight Weight (lb): 156 Weight (oz): 3.65 Weight (kg): 70.76 Medications: Active Meds + DC'd Last 24 Hrs Famotidine 20 MG Q12HR PO Nifedipine 10 [...] MG ASDIR PRN IV Sodium Chloride 100 ML Nicardipine HCl 25 MG ASDIR PRN IV Sodium Chloride 250 ML Nifedipine 10 MG Q4H PRN PRN SL Ondansetron HCl 4 MG Q8H PRN PRN IV Phenol 5 SPRAY Q2H PRN PRN MM Potassium Chloride 10 MEQ ASDIR PRN PO Magnesium Hydroxide 30 ML ASDIR PRN PO Zolpidem Tartrate 5 MG BEDTIME PRN PRN PO General appearance: alert, awake, oriented, no acute distress Wound/incision: Location: right lateral neck incision Site condition: dressing clean dry, dressing intact, mild swelling Neck: tenderness (right neck), Right neck swelling Cardiovascular: BP/pulses equal bilat., normal heart sounds, regular rate rhythm Respiratory: aerating well, clear to auscultation, symmetric expansion, no distress Abdomen: soft, non-tender, normal bowel sounds, no distention Genitourinary: no spencer Extremities: moves all, no edema Neuro/WAXER: alert, oriented X 3, CNII-XII intacte, normal gait, normal speech, no motor deficits, no sensory deficits, Tongue is midline without deviation Results Findings/Data: Laboratory Tests 10/04 419 Chemistry Sodium (137 - [...] (Auto) (14 - 44 %) 10.5 L [place] % (Auto) (4 - 13 %) 12.9 Eos % (Auto) (0 - 6 %) 0.5 Baso % (Auto) (0 - 2 %) 0.2 Neut # (Auto) (2.0 - 7.6 K/mm3) 9.00 H Lymph # (Auto) (1.0 - 3.8 K/mm3) 1.25 [place] # (Auto) (0.1 - 0.8 K/mm3) 1.54 H Eos # (Auto) (0.0 - 0.2 K/mm3) 0.06 Baso # (Auto) (0.0 - 0.2 K/mm3) 0.02 Immature Gran % (0.0 - 2.0 %) 0.3 Nucleated RBC % (0 - 1.0 %) 0.0 Nucleated RBCs # (Man) (0.0 - 0.1 K/mm3) 0.00 Diagnosis, Assessment Plan Free Text A P: This is a 72 Y/F with LITTLE stenosis S/p Right CEA-tongue is midline without deviation, left facial droop. Right facial swelling On statin/plavix/aspirin DVT prophylaxis-SCDs and TEDs Encourage IS and ambulation HTN- well controlled CM consult for home with [facility] Plan: D/c planning home with [facility] today or dexter. when VS is stable [...] Addendum 1: 10/03/18 1541 by Ladi Guido [employer] MACHINE OPERATOR 1520 RN reported pt BP dropped SBP 80's-70's pt is asymptomatic, denies CP, dizziness or headache. Ordered IV bolus NSS. BP came back up to 116/78. Will continue to monitor. Family at the bedside. Will hold the plan for discharge today. Discussed with Dr. Kc. at 1543 at 1927 Addendum 2: 10/03/18 1622 by Ladi Guido NP at 1623 at 1927 RPT #:[id number] END OF REPORT [facility] 2018-10-02 18:27:00 [facility] ([facility] Cardiology Progress Note REPORT#:[id number] REPORT STATUS: Signed DATE:10/02/18 TIME: 1826 PATIENT: RACHEAL SABILLON UNIT #: [id number] ROOM/BED: [address] : [birth year] AGE: 72 SEX: F ATTEND: Rohith Kc MD ADM AUTHOR: Supa Kelly MD * ALL edits or amendments must be made on the electronic/computer document * Subjective Patient reports: No: chest pain, palpitations, shortness of breath. Objective General VS/I O: 24 hour I O ending at 0700: [...] 10/02 1500 83 16 145/69 97 98 06/20 1430 76 15 130/63 90 100 06/20 1400 77 18 162/74 106 95 06/20 1330 92 156/74 106 89 06/20 1300 75 26 140/65 92 95 06/20 1230 66 19 105/59 77 99 06/20 1215 100 Nasal 2.301574 cannula /20 1200 67 18 99/60 74 98 06/20 [...] 103 06/20 0730 97.6 06/20 0730 Nasal 2.043823 cannula /20 0730 77 147/76 106 91 06/20 0700 71 26 152/74 105 98 06/20 0530 60 16 108/55 78 100 06/20 0500 60 13 127/73 94 100 06/20 0430 59 13 108/62 79 100 06/20 0400 97.8 06/20 0346 63 15 134/79 101 100 06/20 0300 83 17 97 06/20 0230 71 28 131/67 93 96 10/02 0200 78 17 137/77 102 95 10/02 0130 79 17 95 10/02 0100 72 19 130/74 97 98 10/02 0030 59 23 112/55 75 99 10/02 0000 97.8 10/02 0000 74 40 122/61 86 99 10/01 2330 70 16 129/62 89 97 10/01 2300 71 15 121/67 89 98 10/01 2230 69 16 101/55 73 98 10/01 2220 Nasal 3.166402 cannula 10/01 2200 97.7 10/01 2200 73 20 136/68 96 97 10/01 2150 82 26 97 10/01 1900 97.8 10/01 1900 71 18 97/54 70 96 10/01 1849 71 17 95 10/01 1845 86 34 96 10/01 1830 73 16 109/59 81 95 Patient Weight Weight (lb): 156 Weight (oz): 3.65 Weight (kg): 70.76 Medications: Active Meds + DC'd Last 24 Hrs Famotidine 20 MG Q12HR PO Nifedipine 10 [...] MG ASDIR PRN IV Sodium Chloride 100 ML Nicardipine HCl 25 MG ASDIR PRN IV Sodium Chloride 250 ML Nifedipine 10 MG Q4H PRN PRN SL Ondansetron HCl 4 MG Q8H PRN PRN IV Phenol 5 SPRAY Q2H PRN PRN MM Potassium Chloride 10 MEQ ASDIR PRN PO Magnesium Hydroxide 30 ML ASDIR PRN PO Zolpidem Tartrate 5 MG BEDTIME PRN PRN PO Physical Exam General appearance: alert, awake, oriented Head/Eyes: atraumatic, normocephalic ENT: moist mucosal membranes Neck: no JVD Cardiovascular: CV assessment: regular rate and rhythm Respiratory: clear to auscultation, no distress Lower extremity: LE assessment: no edema Musculoskeletal: full range of motion Neuro/WAXER: alert, oriented X 3, CN II-XII intact Skin: dry, intact Psychiatry: normal affect, normal judgment/insight, normal mood Results Findings/Data: Laboratory Tests 10/02 514 Chemistry Sodium (137 - [...] (Auto) (14 - 44 %) 11.9 L [place] % (Auto) (4 - 13 %) 11.2 Eos % (Auto) (0 - 6 %) 0.7 Baso % (Auto) (0 - 2 %) 0.2 Neut # (Auto) (2.0 - 7.6 K/mm3) 8.79 H Lymph # (Auto) (1.0 - 3.8 K/mm3) 1.38 [place] # (Auto) (0.1 - 0.8 K/mm3) 1.30 [...] DxA P Notes Free Text DxA P Notes: IMP: Carotid vascular disease s/p right CEA CAD - stable PLAN: Ambulate Continue current medications. at 1620 RPT #:[id number] END OF REPORT [facility] 2018-10-02 15:22:00 [facility] ([facility]) Hospitalist Progress Note REPORT#:[id number] REPORT STATUS: Signed DATE:10/02/18 TIME: 1522 PATIENT: RACHEAL SABILLON UNIT #: [id number] ROOM/BED: [address] : [birth year] AGE: 72 SEX: F ATTEND: Rohith Kc MD ADM AUTHOR: Mariana Humphrey MD * ALL edits or amendments must be made on the electronic/computer document * Subjective Chief Complaint: patient is doing well. Review of Systems All systems rev neg: except as marked Objective General VS/I O: Vital Signs: Date Time Temp Pulse Resp B/P B/P Pulse O2 O2 Flow FiO2 Mean Ox Delivery Rate 10/02 1215 100 Nasal 2.674283 cannula 10/02 1000 70 23 126/71 93 94 10/02 0930 80 148/67 97 72 06/20 0900 80 142/102 117 06/20 0845 20 06/20 0830 66 19 128/65 91 06/20 0800 84 19 146/76 103 06/20 0730 97.6 06/20 0730 Nasal 2.836251 cannula 06/20 0730 77 147/76 106 91 [...] 16 101/55 73 98 06/19 2220 Nasal 3.540790 cannula / 2200 97.7 06/19 2200 73 20 136/68 96 97 06/19 2150 82 26 97 06/19 1900 97.8 06/19 1900 71 18 97/54 70 96 06/19 1849 71 17 95 06/19 1845 86 34 96 06/19 1830 73 16 109/59 81 95 06/19 1815 75 19 96 06/19 1800 87 32 126/69 92 96 06/19 1745 80 25 96 06/19 1730 80 25 119/59 83 95 06/19 1715 82 18 95 06/19 1708 83 24 96 06/19 1700 89 28 142/73 102 98 06/19 1645 80 16 100 06/19 1630 77 16 133/70 96 98 06/19 1615 78 15 100 06/19 1600 90 22 153/81 109 97 06/19 1545 79 15 99 06/19 1530 82 15 165/74 107 99 24 hour I O ending at 0700: 10/02 0700 10/01 1900 Intake Total 100 980.00 Output Total 750 Balance 100 230.00 Intake, IV 620.00 Intake, Oral 100 360 Number Voids 2 1 Output, Urine 750 Patient 70.76 kg Weight Medications: Active Meds + DC'd Last 24 Hrs Famotidine 20 MG Q12HR PO Nifedipine 10 [...] MG ASDIR PRN IV Sodium Chloride 100 ML Nicardipine HCl 25 MG ASDIR PRN IV Sodium Chloride 250 ML Nifedipine 10 MG Q4H PRN PRN SL Ondansetron HCl 4 MG Q8H PRN PRN IV Phenol 5 SPRAY Q2H PRN PRN MM Potassium Chloride 10 MEQ ASDIR PRN PO Magnesium Hydroxide 30 ML ASDIR PRN PO Zolpidem Tartrate 5 MG BEDTIME PRN PRN PO Physical Exam General appearance: alert, awake Head/Eyes: EOMI, PERRL Neck: right side of neck dressing intact Cardiovascular: normal heart sounds, regular rate rhythm Respiratory: aerating well, clear to auscultation Abdomen: non-tender, normal bowel sounds Musculoskeletal: normal inspection Psychiatry: normal affect, normal judgment/insight Results Findings/Data: Laboratory Tests 10/02 0515 Chemistry Sodium (137 - [...] (Auto) (14 - 44 %) 11.9 L [place] % (Auto) (4 - 13 %) 11.2 Eos % (Auto) (0 - 6 %) 0.7 Baso % (Auto) (0 - 2 %) 0.2 Neut # (Auto) (2.0 - 7.6 K/mm3) 8.79 H Lymph # (Auto) (1.0 - 3.8 K/mm3) 1.38 [place] # (Auto) (0.1 - 0.8 K/mm3) 1.30 H Eos # (Auto) (0.0 - 0.2 K/mm3) 0.08 Baso # (Auto) (0.0 - 0.2 K/mm3) 0.02 Immature Gran % (0.0 - 2.0 %) 0.3 Nucleated RBC % (0 - 1.0 %) 0.0 Nucleated RBCs # (Man) (0.0 - 0.1 K/mm3) 0.00 Diagnosis, Assessment Plan Free Text DxA P Notes Free text DxA P notes: Diagnosis, Assessment Plan pt is 72 y/o female with h/o CAD and stent , HTN, HLD, hypothyroidism underwent Procedures performed: Right carotid endarterectomy with hemashield patch arterioplasty. pt is admitted for post op care. plan: contienu treatment per dr kc and monitor clinical recovery. 10/01/18: blood pressure became uncontrolled requiring restarting of nicardipine drip. resume home medications and monitor for bp control. 10/02/18: patient is doing better, ambulating in hallway. blood pressure is better controlled. transfer out of icu. Quality Medications Current medication review: I attest that the foregoing medication list in the medical record is true, accurate, and complete to the best of my knowledge. Advanced Care Plan 65 or Older Discussed with: patient, surrogate decis. maker Discussion included: code status (full code) Tobacco Use/Counseling Tobacco use/counseling: non tobacco user HTN Screening/Follow-up B/P assess/follow-up: pre-existing hx of HTN at 1526 RPT #:[id number] END OF REPORT [facility] 2018-10-02 09:58:00 [facility] Cardiovascular Surgery Prog REPORT#:[id number] REPORT STATUS: Signed DATE:10/02/18 TIME: 09 PATIENT: RACHEAL SABILLON UNIT #: [id number] ROOM/BED: [address] : [birth year] AGE: 72 SEX: F ATTEND: Rohith Kc MD ADM AUTHOR: Billie Valadez NP * ALL edits or amendments must be made on the electronic/computer document * General Post-op: day 2 Status post: Right CEA Subjective Patient reports: No: complaints. Comments: Seen sitting on the chair at bedside Denies cp or sob Reports right neck tenderness and numbness Tongue is midline without deviation, tongue is midline, left facial droop. left IJ CVC Review of Systems Constitutional: Denies: chills, fatigue, fever, generalized weakness. Respiratory: Denies: NEGRO (dyspnea on exertion), SOB. Cardiovascular: Denies: chest pain, NEGRO (dyspnea on exertion), edema, orthopnea, palpitations. Objective Physical Exam VS/I O: Last Documented: Result Date Time Temp 97.6 10/02 0730 Pulse Ox 98 10/02 0700 B/P 152/74 10/02 0700 B/P Mean 105 10/02 0700 Pulse 71 10/02 0700 Resp 26 10/02 0700 O2 Delivery Nasal cannula 10/01 2220 O2 Flow Rate 3.139375 10/01 2220 FiO2 28 10/01 1442 24 hour I O ending at 0700: 10/02 0700 10/01 1900 Intake Total 100 980.00 Output Total 750 Balance 100 230.00 Intake, IV 620.00 Intake, Oral 100 360 Number Voids 2 1 Output, Urine 750 Patient 70.76 kg Weight Patient Weight Weight (lb): 156 Weight (oz): 3.65 Weight (kg): 70.76 Medications: Active Meds + DC'd Last 24 Hrs Famotidine 20 MG Q12HR PO Nifedipine 10 [...] MG ASDIR PRN IV Sodium Chloride 100 ML Nicardipine HCl 25 MG ASDIR PRN IV Sodium Chloride 250 ML Nifedipine 10 MG Q4H PRN PRN SL Ondansetron HCl 4 MG Q8H PRN PRN IV Phenol 5 SPRAY Q2H PRN PRN MM Potassium Chloride 10 MEQ ASDIR PRN PO Magnesium Hydroxide 30 ML ASDIR PRN PO Zolpidem Tartrate 5 MG BEDTIME PRN PRN PO General appearance: alert, awake, oriented, no acute distress Wound/incision: Location: Right neck Site condition: dressing clean dry, dressing intact, no drainage Neck: tenderness (right neck), Right neck swelling Cardiovascular: BP/pulses equal bilat., normal heart sounds, regular rate rhythm Respiratory: aerating well, clear to auscultation, symmetric expansion, no distress Abdomen: soft, non-tender, normal bowel sounds, no distention Genitourinary: no spencer Extremities: moves all, no edema Neuro/WAXER: alert, oriented X 3, CNII-XII intacte, normal gait, normal speech, no motor deficits, no sensory deficits, Tongue is midline without deviation Results Findings/Data: Laboratory Tests 10/02 514 Chemistry Sodium (137 - [...] (Auto) (14 - 44 %) 11.9 L [place] % (Auto) (4 - 13 %) 11.2 Eos % (Auto) (0 - 6 %) 0.7 Baso % (Auto) (0 - 2 %) 0.2 Neut # (Auto) (2.0 - 7.6 K/mm3) 8.79 H Lymph # (Auto) (1.0 - 3.8 K/mm3) 1.38 [place] # (Auto) (0.1 - 0.8 K/mm3) 1.30 H Eos # (Auto) (0.0 - 0.2 K/mm3) 0.08 Baso # (Auto) (0.0 - 0.2 K/mm3) 0.02 Immature Gran % (0.0 - 2.0 %) 0.3 Nucleated RBC % (0 - 1.0 %) 0.0 Nucleated RBCs # (Man) (0.0 - 0.1 K/mm3) 0.00 Diagnosis, Assessment Plan Free Text A P: This is a 72 Y/F with LITTLE stenosis S/p Right CEA-tongue is midline without deviation, left facial droop. Right facial swelling On statin/plavix/aspirin HTN-off cardene gtt, b/p controlled now. DVT prophylaxis-SCDs and TEDs Encourage IS and ambulation Will monitor b/p today. CM consult for home with [facility] plan: D/c planning home with [facility] tentatively saturday or saturday. Orders: Procedure Date/time Status CASE MANAGEMENT CONSULT 10/03 1839 Active Plan discussed with: patient, collaborating MD (Dr. Kc) at 2031 RPT #:[id number] END OF REPORT [facility] 2018-10-02 09:58:00 [facility] ([facility]) Cardiovascular Surgery Prog REPORT#:[id number] REPORT STATUS: Signed DATE:10/02/18 TIME: 957 PATIENT: RACHEAL SABILLON UNIT #: [id number] ROOM/BED: [address] : [birth year] AGE: 72 SEX: F ATTEND: Rohith Kc MD ADM AUTHOR: Billie Valadez NP * ALL edits or amendments must be made on the electronic/computer document * General Post-op: day 2 Status post: Right CEA Subjective Patient reports: No: complaints. Comments: Seen sitting on the chair at bedside Denies cp or sob Reports right neck tenderness and numbness Tongue is midline without deviation, tongue is midline, left facial droop. left IJ CVC Review of Systems Constitutional: Denies: chills, fatigue, fever, generalized weakness. Respiratory: Denies: NEGRO (dyspnea on exertion), SOB. Cardiovascular: Denies: chest pain, NEGRO (dyspnea on exertion), edema, orthopnea, palpitations. Objective Physical Exam VS/I O: Last Documented: Result Date Time Temp 97.6 10/02 0730 Pulse Ox 98 10/02 0700 B/P 152/74 10/02 0700 B/P Mean 105 10/02 0700 Pulse 71 10/02 0700 Resp 26 10/02 07 O2 Delivery Nasal cannula 10/01 2220 O2 Flow Rate 3.785089 10/01 2220 FiO2 28 10/01 1442 24 hour I O ending at 0700: 10/02 0700 10/01 1900 Intake Total 100 980.00 Output Total 750 Balance 100 230.00 Intake, IV 620.00 Intake, Oral 100 360 Number Voids 2 1 Output, Urine 750 Patient 70.76 kg Weight Patient Weight Weight (lb): 156 Weight (oz): 3.65 Weight (kg): 70.76 Medications: Active Meds + DC'd Last 24 Hrs Famotidine 20 MG Q12HR PO Nifedipine 10 [...] MG ASDIR PRN IV Sodium Chloride 100 ML Nicardipine HCl 25 MG ASDIR PRN IV Sodium Chloride 250 ML Nifedipine 10 MG Q4H PRN PRN SL Ondansetron HCl 4 MG Q8H PRN PRN IV Phenol 5 SPRAY Q2H PRN PRN MM Potassium Chloride 10 MEQ ASDIR PRN PO Magnesium Hydroxide 30 ML ASDIR PRN PO Zolpidem Tartrate 5 MG BEDTIME PRN PRN PO General appearance: alert, awake, oriented, no acute distress Wound/incision: Location: Right neck Site condition: dressing clean dry, dressing intact, no drainage Neck: tenderness (right neck), Right neck swelling Cardiovascular: BP/pulses equal bilat., normal heart sounds, regular rate rhythm Respiratory: aerating well, clear to auscultation, symmetric expansion, no distress Abdomen: soft, non-tender, normal bowel sounds, no distention Genitourinary: no spencer Extremities: moves all, no edema Neuro/WAXER: alert, oriented X 3, CNII-XII intacte, normal gait, normal speech, no motor deficits, no sensory deficits, Tongue is midline without deviation Results Findings/Data: Laboratory Tests 10/02 514 Chemistry Sodium (137 - [...] (Auto) (14 - 44 %) 11.9 L [place] % (Auto) (4 - 13 %) 11.2 Eos % (Auto) (0 - 6 %) 0.7 Baso % (Auto) (0 - 2 %) 0.2 Neut # (Auto) (2.0 - 7.6 K/mm3) 8.79 H Lymph # (Auto) (1.0 - 3.8 K/mm3) 1.38 [place] # (Auto) (0.1 - 0.8 K/mm3) 1.30 H Eos # (Auto) (0.0 - 0.2 K/mm3) 0.08 Baso # (Auto) (0.0 - 0.2 K/mm3) 0.02 Immature Gran % (0.0 - 2.0 %) 0.3 Nucleated RBC % (0 - 1.0 %) 0.0 Nucleated RBCs # (Man) (0.0 - 0.1 K/mm3) 0.00 Diagnosis, Assessment Plan Free Text A P: This is a 72 Y/F with LITTLE stenosis S/p Right CEA-tongue is midline without deviation, left facial droop. Right facial swelling On statin/plavix/aspirin HTN-off cardene gtt, b/p controlled now. DVT prophylaxis-SCDs and TEDs Encourage IS and ambulation Will monitor b/p today. CM consult for home with [facility] plan: D/c planning home with [facility] tentatively saturday or saturday. Orders: Procedure Date/time Status CASE MANAGEMENT CONSULT 10/03 1839 Active Plan discussed with: patient, collaborating MD (Dr. Kc) at 2031 at 1929 RPT #:[id number] END OF REPORT [facility] 2018-10-01 18:45:00 [facility] ([facility]) Cardiology Progress Note REPORT#:[id number] REPORT STATUS: Signed DATE:10/01/18 TIME: 1844 PATIENT: RACHEAL SABILLON UNIT #: [id number] [address] : [birth year] AGE: 72 SEX: F ATTEND: Rohith Kc MD ADM AUTHOR: Supa Kelly MD * ALL edits or amendments must be made on the electronic/computer document * Subjective Patient reports: No: chest pain, palpitations, shortness of breath. Objective General VS/I O: 24 hour I O ending at 0700: [...] 99.0 90 24 166/77 106 100 Nasal 3.123808 cannula 10/01 1503 85 23 99 10/01 1500 80 20 166/77 114 99 10/01 1449 80 16 182/80 120 100 10/01 1445 82 23 99 10/01 1444 84 25 202/102 140 99 10/01 1442 100 Nasal 28 cannula 10/01 1441 77 15 100 10/01 1434 90 21 196/93 134 94 06/19 1432 92 22 203/99 142 91 06/19 1430 204/96 138 06/19 1428 93 31 92 06/19 1415 78 16 92 06/19 1400 83 18 151/94 116 92 06/19 1345 70 16 91 06/19 1330 76 17 160/79 109 92 06/19 1315 84 22 92 06/19 1300 77 19 134/70 96 93 06/19 1245 72 14 92 06/19 1230 74 18 129/72 93 90 06/19 [...] 97.7 64 18 114/60 78 100 Nasal 3.535524 cannula 06/19 0800 79 24 111/58 78 [...] 06/19 0400 76 16 154/70 100 99 06/ 0345 80 16 98 / 0330 80 17 98 10/01 0300 76 18 138/75 101 99 / 0230 74 16 98 06/ 0215 75 18 98 06/ 0145 76 18 98 06/ 0130 76 18 99 / 0115 76 20 99 / 0100 74 16 146/78 103 99 10/01 0045 79 21 99 10/01 0030 78 17 98 10/01 0015 73 17 99 10/01 0003 97.5 10/01 0000 73 19 119/71 90 99 18 2345 74 20 98 18 2330 75 18 98 18 2315 75 20 98 09/30 2300 75 19 113/65 83 97 09/30 2245 103 20 96 09/30 2230 77 19 98 09/30 2215 80 17 98 09/30 2200 80 18 121/69 90 98 09/30 2145 79 18 97 09/30 2130 81 18 96 09/30 2115 83 20 95 09/30 2100 76 21 103/59 76 97 18 2045 76 17 97 18 2030 77 18 98 09/30 2014 80 20 97 10/01 1999 97.2 10/01 1999 Nasal 2.855138 cannula 09/30 2000 79 18 104/57 75 97 09/30 1945 79 19 97 18 1930 81 17 97 09/30 1915 83 16 97 09/30 1909 88 14 115/61 83 97 09/30 1905 88 17 96 09/30 1901 86 19 108/59 78 98 18 1900 84 12 98 09/30 1846 86 19 135/71 96 98 Patient Weight Weight (lb): 156 Weight (oz): 3.65 Weight (kg): 70.76 Physical Exam General appearance: alert, awake, oriented Head/Eyes: atraumatic, normocephalic ENT: moist mucosal membranes Neck: no JVD Cardiovascular: CV assessment: regular rate and rhythm Respiratory: clear to auscultation, no distress Lower extremity: LE assessment: no edema Musculoskeletal: full range of motion Neuro/WAXER: alert, oriented X 3, CN II-XII intact Skin: dry, intact Psychiatry: normal affect, normal judgment/insight, normal mood Results Findings/Data: Laboratory Tests 06/19 06/18 0450 2215 Chemistry Sodium (137 - 145 [...] (Auto) (14 - 44 %) 8.7 L [place] % (Auto) (4 - 13 %) 8.4 Eos % (Auto) (0 - 6 %) 0.1 Baso % (Auto) (0 - 2 %) 0.2 Neut # (Auto) (2.0 - 7.6 K/mm3) 8.82 H Lymph # (Auto) (1.0 - 3.8 K/mm3) 0.93 L [place] # (Auto) (0.1 - 0.8 K/mm3) 0.90 [...] (1.6 - 2.3 MG/DL) 1.7 1.7 Radiology data: Recent Impressions: RADIOLOGY - XR CHEST 1V 10/01 0449 Report Impression - Status: SIGNED Entered: 10/01/2018 0748 IMPRESSION: Mild left basilar atelectasis and/or pleural fluid. Impression By: Krishna Juarez MD Diagnosis, Assessment Plan Free Text DxA P Notes Free Text DxA P Notes: IMP: Carotid vascular disease s/p right CEA CAD - stable PLAN: Ambulate Home medications. at 2048 RPT #:[id number] END OF REPORT [facility] 2018-10-01 15:00:00 [facility]) Hospitalist Progress Note REPORT#:[id number] REPORT STATUS: Signed DATE:10/01/18 TIME: 1500 PATIENT: RACHEAL SABILLON UNIT #: [id number] ROOM/BED: [address] : [birth year] AGE: 72 SEX: F ATTEND: Rohith Kc MD ADM AUTHOR: Mariana Humphrey MD * ALL edits or amendments must be made on the electronic/computer document * Subjective Chief Complaint: patient is doing well. Review of Systems All systems rev neg: except as marked Objective General VS/I O: Vital Signs: Date Time Temp Pulse Resp [...] 10/01 1300 77 19 134/70 96 93 06/19 1245 72 14 92 06/19 1230 74 18 129/72 93 90 06/19 [...] 97.7 64 18 114/60 78 100 Nasal 3.708240 cannula 06/19 0800 79 24 111/58 78 [...] 97 06/18 1999 97.2 06/18 1999 Nasal 2.531235 cannula 18 1999 79 18 104/57 75 [...] 1642 85 18 97 06/18 1630 Nasal 3.736848 cannula 06/18 1630 87 20 98 06/18 1627 88 22 98 06/18 1624 86 20 98 06/18 1612 87 20 98 06/18 1557 85 20 98 06/18 1542 91 23 97 06/18 1527 99 30 97 06/18 1512 100 Simple 5.158382 40 mask 09/30 1512 97.6 107 30 146/69 94 100 Simple 3.252883 mask 09/30 1512 107 99 24 hour I O ending at 0700: 10/01 0700 09/30 1900 Intake Total 1245.00 1490.00 Output Total 1330 1240 Balance -85.00 250.00 Intake, IV 1005.00 1490.00 Intake, Oral 240 Output, 60 40 Drainage Output, 20 Emesis Output, Urine 1250 1200 Patient 70.864 kg Weight Weight Standing scale Measurement Method Medications: Active Meds + DC'd Last 24 Hrs Famotidine 20 MG Q12HR PO Aspirin 81 MG [...] MG Q8H IV (DC) Sodium Chloride 10 ML Acetaminophen/Codeine Phosphate 2 UDTAB Q4H PRN PRN [...] MG ASDIR PRN IV Sodium Chloride 100 ML Nicardipine HCl 25 MG ASDIR PRN IV Sodium Chloride 250 ML Nifedipine 10 MG Q4H PRN PRN SL Ondansetron HCl 4 MG Q8H PRN PRN IV Phenol 5 SPRAY Q2H PRN PRN MM Potassium Chloride 10 MEQ ASDIR PRN PO Nicardipine HCl 25 MG ASDIR IV (DC) Sodium Chloride 250 ML Cefazolin Sodium 2,000 MG ONCALL IV (DC) Acetaminophen 650 MG Q4H PRN PRN PO (DC) Magnesium Hydroxide 30 ML ASDIR PRN PO Zolpidem Tartrate 5 MG BEDTIME PRN PRN PO Physical Exam General appearance: alert, awake, oriented Head/Eyes: EOMI, PERRL Neck: right side of neck dressing intact Cardiovascular: normal heart sounds, regular rate rhythm Respiratory: aerating well, clear to auscultation Abdomen: non-tender, normal bowel sounds Musculoskeletal: normal inspection Psychiatry: normal affect, normal judgment/insight Results Findings/Data: Laboratory Tests 09/30 1530 Blood Gas Puncture Site [...] (14 - 44 %) 8.7 L 30.3 [place] % (Auto) (4 - 13 %) 8.4 10.8 Eos % (Auto) (0 - 6 %) 0.1 3.0 Baso % (Auto) (0 - 2 %) 0.2 0.3 Neut # (Auto) (2.0 - 7.6 K/mm3) 8.82 H 5.97 Lymph # (Auto) (1.0 - 3.8 K/mm3) 0.93 L 3.28 [place] # (Auto) (0.1 - 0.8 K/mm3) 0.90 H 1.17 H Eos # (Auto) (0.0 - 0.2 K/mm3) 0.01 0.32 H Baso # (Auto) (0.0 - 0.2 K/mm3) 0.02 0.03 Immature Gran % (0.0 - 2.0 %) 0.4 0.6 Nucleated RBC % (0 - 1.0 %) 0.0 0.0 Nucleated RBCs # (Man) (0.0 - 0.1 K/mm3) 0.00 0.00 Radiology data: Recent Impressions: RADIOLOGY - XR CHEST 1V 09/30 1516 Report Impression - Status: SIGNED Entered: 09/30/2018 1532 IMPRESSION: Mild congestive changes bilaterally. No pneumothorax. Impression By: Bernie - Ryann Zuniga MD RADIOLOGY - XR CHEST 1V 10/01 2455 Report Impression - Status: SIGNED Entered: 10/01/2018 0748 IMPRESSION: Mild left basilar atelectasis and/or pleural fluid. Impression By: [email or web address] - Kayode Juarez MD Diagnosis, Assessment Plan Free Text DxA P Notes Free text DxA P notes: Diagnosis, Assessment Plan Free Text DxA P Notes Free Text DxA P Notes: pt is 72 y/o female with h/o CAD and stent , HTN, HLD, hypothyroidism underwent Procedures performed: Right carotid endarterectomy with hemashield patch arterioplasty. pt is admitted for post op care. plan: contieu treatment per dr kc and monitor clinical recovery. 10/01/18: blood pressure became uncontrolled requiring restarting of nicardipine drip. resume home medications and monitor for bp control. Quality Medications Current medication review: I attest that the foregoing medication list in the medical record is true, accurate, and complete to the best of my knowledge. Advanced Care Plan 65 or Older Discussed with: patient, surrogate decis. maker Discussion included: code status (full code) Tobacco Use/Counseling Tobacco use/counseling: non tobacco user HTN Screening/Follow-up B/P assess/follow-up: pre-existing hx of HTN at 1944 RPT #:[id number] END OF REPORT [facility] 2018-10-01 10:27:00 [facility] ([facility]) Cardiovascular Surgery Prog REPORT#:[id number] REPORT STATUS: Signed DATE:10/01/18 TIME: 1027 PATIENT: RACHEAL SABILLON UNIT #: [id number] ROOM/BED: [address] : [birth year] AGE: 72 SEX: F ATTEND: Rohith Kc MD ADM AUTHOR: Billie Valadez NP * ALL edits or amendments must be made on the electronic/computer document * General Post-op: day 1 Status post: Right CEA Subjective Patient reports: Yes: incisional pain (right neck). No: chest pain, nausea, vomiting. Comments: Seen at bedside Reports right neck incision pain Tongue is midline without deviation, mild left facial droop. No swallowing difficulties Has ambulated well with PT this morning without any focal difficulties. Review of Systems Constitutional: Denies: chills, fatigue, fever, generalized weakness. Respiratory: Denies: NEGRO (dyspnea on exertion), SOB. Cardiovascular: Denies: chest pain, NEGRO (dyspnea on exertion), edema, orthopnea, palpitations. Objective Physical Exam VS/I O: Last Documented: Result Date Time Pulse Ox 100 10/01 07 B/P 129/68 10/01 07 B/P Mean 91 10/01 699 Pulse 84 10/01 07 Resp 20 10/01 07 Temp 98.7 10/01 0400 O2 Delivery Nasal cannula 10/01 1999 O2 Flow Rate 2.427922 10/01 1999 FiO2 40 09/30 1512 24 hour I O ending at 0700: 10/01 0700 09/30 1900 Intake Total 1245.00 1490.00 Output Total 1330 1240 Balance -85.00 250.00 Intake, IV 1005.00 1490.00 Intake, Oral 240 Output, 60 40 Drainage Output, 20 Emesis Output, Urine 1250 1200 Patient 70.864 kg Weight Weight Standing scale Measurement Method Patient Weight Weight (lb): 156 Weight (oz): 3.65 Weight (kg): 70.76 Medications: Active Meds + DC'd Last 24 Hrs Aspirin 81 MG DAILY PO (DC) Aspirin [...] MG Q8H IV (DC) Sodium Chloride 10 ML Acetaminophen/Codeine Phosphate 2 UDTAB Q4H PRN PRN [...] MG ASDIR PRN IV Sodium Chloride 100 ML Nicardipine HCl 25 MG ASDIR PRN IV Sodium Chloride 250 ML Nifedipine 10 MG Q4H PRN PRN SL Ondansetron HCl 4 MG Q8H PRN PRN IV Phenol 5 SPRAY Q2H PRN PRN MM Potassium Chloride 10 MEQ ASDIR PRN PO Glycopyrrolate 0 .STK-MED ONE .ROUTE (DC) Nicardipine HCl 25 MG ASDIR IV (DC) Sodium Chloride 250 ML Bacitracin 0 .STK-MED ONE Z (DC) Nicardipine HCl [...] General appearance: alert, awake, oriented, no acute distress Wound/incision: Location: right neck Site condition: dressing clean dry, dressing intact, incision intact, no drainage, no ecchymosis Neck: tenderness (right neck), Right IJ BLAKE with minimal serosanguinous drainage Cardiovascular: BP/pulses equal bilat., normal heart sounds, regular rate rhythm Respiratory: aerating well, clear to auscultation, symmetric expansion, no distress Abdomen: soft, non-tender, normal bowel sounds, no distention Genitourinary: spencer Extremities: moves all, no edema Neuro/WAXER: alert, oriented X 3, CNII-XII intacte, normal gait, normal speech, no motor deficits, no sensory deficits, Tongue is midline without deviation Results Findings/Data: Laboratory Tests 09/30 153 Blood Gas Puncture Site [...] (14 - 44 %) 8.7 L 30.3 [place] % (Auto) (4 - 13 %) 8.4 10.8 Eos % (Auto) (0 - 6 %) 0.1 3.0 Baso % (Auto) (0 - 2 %) 0.2 0.3 Neut # (Auto) (2.0 - 7.6 K/mm3) 8.82 H 5.97 Lymph # (Auto) (1.0 - 3.8 K/mm3) 0.93 L 3.28 [place] # (Auto) (0.1 - 0.8 K/mm3) 0.90 H 1.17 H Eos # (Auto) (0.0 - 0.2 K/mm3) 0.01 0.32 H Baso # (Auto) (0.0 - 0.2 K/mm3) 0.02 0.03 Immature Gran % (0.0 - 2.0 %) 0.4 0.6 Nucleated RBC % (0 - 1.0 %) 0.0 0.0 Nucleated RBCs # (Man) (0.0 - 0.1 K/mm3) 0.00 0.00 Radiology data: Recent Impressions: RADIOLOGY - XR CHEST 1V 09/30 1516 Report Impression - Status: SIGNED Entered: 09/30/2018 1532 IMPRESSION: Mild congestive changes bilaterally. No pneumothorax. Impression By: Bernie Zuniga MD RADIOLOGY - XR CHEST 1V 10/01 4916 Report Impression - Status: SIGNED Entered: 10/01/2018 0748 IMPRESSION: Mild left basilar atelectasis and/or pleural fluid. Impression By: [email or web address] - Kayode Juarez MD Diagnosis, Assessment Plan Free Text A P: This is a 72 Y/F with LITTLE stenosis S/p Right CEA-tongue is midline without deviation, mild left facial droop On statin/plavix/aspirin D/C right IJ BLAKE drain today HTN-home meds resumed. DVT prophylaxis-SCDs and TEDs D/C spencer D/C radial arterial line Encourage IS and ambulation Plan: CVU transfer this afternoon with stable B/P. Plan discussed with: patient, collaborating MD (Dr. Kc) at 1105 RPT #:[id number] END OF REPORT [facility] 2018-10-01 10:27:00 [facility]) Cardiovascular Surgery Prog REPORT#:[id number] REPORT STATUS: Signed DATE:10/01/18 TIME: 1027 PATIENT: RACHEAL SABILLON UNIT #: [id number] ROOM/BED: [address] : [birth year] AGE: 72 SEX: F ATTEND: Rohith Kc MD ADM AUTHOR: Billie Valadez NP * ALL edits or amendments must be made on the electronic/computer document * See Addendum General Post-op: day 1 Status post: Right CEA Subjective Patient reports: Yes: incisional pain (right neck). No: chest pain, nausea, vomiting. Comments: Seen at bedside Reports right neck incision pain Tongue is midline without deviation, mild left facial droop. No swallowing difficulties Has ambulated well with PT this morning without any focal difficulties. Review of Systems Constitutional: Denies: chills, fatigue, fever, generalized weakness. Respiratory: Denies: NEGRO (dyspnea on exertion), SOB. Cardiovascular: Denies: chest pain, NEGRO (dyspnea on exertion), edema, orthopnea, palpitations. Objective Physical Exam VS/I O: Last Documented: Result Date Time Pulse Ox 100 10/01 0700 B/P 129/68 10/01 07 B/P Mean 91 10/01 07 Pulse 84 10/01 0700 Resp 20 10/01 07 Temp 98.7 10/01 0400 O2 Delivery Nasal cannula 10/01 1999 O2 Flow Rate 2.776555 10/01 1999 FiO2 40 09/30 1512 24 hour I O ending at 0700: 10/01 0700 09/30 1900 Intake Total 1245.00 1490.00 Output Total 1330 1240 Balance -85.00 250.00 Intake, IV 1005.00 1490.00 Intake, Oral 240 Output, 60 40 Drainage Output, 20 Emesis Output, Urine 1250 1200 Patient 70.864 kg Weight Weight Standing scale Measurement Method Patient Weight Weight (lb): 156 Weight (oz): 3.65 Weight (kg): 70.76 Medications: Active Meds + DC'd Last 24 Hrs Aspirin 81 MG DAILY PO (DC) Aspirin [...] MG Q8H IV (DC) Sodium Chloride 10 ML Acetaminophen/Codeine Phosphate 2 UDTAB Q4H PRN PRN [...] MG ASDIR PRN IV Sodium Chloride 100 ML Nicardipine HCl 25 MG ASDIR PRN IV Sodium Chloride 250 ML Nifedipine 10 MG Q4H PRN PRN SL Ondansetron HCl 4 MG Q8H PRN PRN IV Phenol 5 SPRAY Q2H PRN PRN MM Potassium Chloride 10 MEQ ASDIR PRN PO Glycopyrrolate 0 .STK-MED ONE .ROUTE (DC) Nicardipine HCl 25 MG ASDIR IV (DC) Sodium Chloride 250 ML Bacitracin 0 .STK-MED ONE Z (DC) Nicardipine HCl [...] General appearance: alert, awake, oriented, no acute distress Wound/incision: Location: right neck Site condition: dressing clean dry, dressing intact, incision intact, no drainage, no ecchymosis Neck: tenderness (right neck), Right IJ BLAKE with minimal serosanguinous drainage Cardiovascular: BP/pulses equal bilat., normal heart sounds, regular rate rhythm Respiratory: aerating well, clear to auscultation, symmetric expansion, no distress Abdomen: soft, non-tender, normal bowel sounds, no distention Genitourinary: spencer Extremities: moves all, no edema Neuro/WAXER: alert, oriented X 3, CNII-XII intacte, normal gait, normal speech, no motor deficits, no sensory deficits, Tongue is midline without deviation Results Findings/Data: Laboratory Tests 09/30 1530 Blood Gas Puncture Site [...] (14 - 44 %) 8.7 L 30.3 [place] % (Auto) (4 - 13 %) 8.4 10.8 Eos % (Auto) (0 - 6 %) 0.1 3.0 Baso % (Auto) (0 - 2 %) 0.2 0.3 Neut # (Auto) (2.0 - 7.6 K/mm3) 8.82 H 5.97 Lymph # (Auto) (1.0 - 3.8 K/mm3) 0.93 L 3.28 [place] # (Auto) (0.1 - 0.8 K/mm3) 0.90 H 1.17 H Eos # (Auto) (0.0 - 0.2 K/mm3) 0.01 0.32 H Baso # (Auto) (0.0 - 0.2 K/mm3) 0.02 0.03 Immature Gran % (0.0 - 2.0 %) 0.4 0.6 Nucleated RBC % (0 - 1.0 %) 0.0 0.0 Nucleated RBCs # (Man) (0.0 - 0.1 K/mm3) 0.00 0.00 Radiology data: Recent Impressions: RADIOLOGY - XR CHEST 1V 09/30 1516 Report Impression - Status: SIGNED Entered: 09/30/2018 1532 IMPRESSION: Mild congestive changes bilaterally. No pneumothorax. Impression By: 16 - Ryann Zuniga MD RADIOLOGY - XR CHEST 1V 10/01 0449 Report Impression - Status: SIGNED Entered: 10/01/2018 0748 IMPRESSION: Mild left basilar atelectasis and/or pleural fluid. Impression By: [email or web address] - Kayode Juarez MD Diagnosis, Assessment Plan Free Text A P: This is a 72 Y/F with LITTLE stenosis S/p Right CEA-tongue is midline without deviation, mild left facial droop On statin/plavix/aspirin D/C right IJ BLAKE drain today HTN-home meds resumed. DVT prophylaxis-SCDs and TEDs D/C spencer D/C radial arterial line Encourage IS and ambulation Plan: CVU transfer this afternoon with stable B/P. Plan discussed with: patient, collaborating MD (Dr. Kc) at 1105 Addendum 1: 10/01/18 1516 by Billie Valadez [employer] MACHINE OPERATOR for Rohith Kc MD A/P HTN-B/B elevated with systolic 180-200's this afternoon. Patient restrated on cardene gtt. procardia SL ordered. Will monitor in ICU. Patinet remains neurologically intact. right neck dressing D/c/I. D/w with Dr. Kc, patient, and BS RN. at 1518 RPT #:[id number] END OF REPORT [facility] 2018-10-01 10:27:00 [facility] Cardiovascular Surgery Prog REPORT#:[id number] REPORT STATUS: Signed DATE:10/01/18 TIME: 1027 PATIENT: RACHEAL SABILLON UNIT #: [id number] ROOM/BED: [address] : [birth year] AGE: 72 SEX: F ATTEND: Rohith Kc MD ADM AUTHOR: Billie Valadez NP * ALL edits or amendments must be made on the electronic/computer document * See Addendum General Post-op: day 1 Status post: Right CEA Subjective Patient reports: Yes: incisional pain (right neck). No: chest pain, nausea, vomiting. Comments: Seen at bedside Reports right neck incision pain Tongue is midline without deviation, mild left facial droop. No swallowing difficulties Has ambulated well with PT this morning without any focal difficulties. Review of Systems Constitutional: Denies: chills, fatigue, fever, generalized weakness. Respiratory: Denies: NEGRO (dyspnea on exertion), SOB. Cardiovascular: Denies: chest pain, NEGRO (dyspnea on exertion), edema, orthopnea, palpitations. Objective Physical Exam VS/I O: Last Documented: Result Date Time Pulse Ox 100 10/01 0700 B/P 129/68 10/01 0700 B/P Mean 91 10/01 0700 Pulse 84 10/01 0700 Resp 20 10/01 0700 Temp 98.7 10/01 0400 O2 Delivery Nasal cannula 10/01 1999 O2 Flow Rate 2.957871 10/01 1999 FiO2 40 09/30 1512 24 hour I O ending at 0700: 10/01 0700 09/30 1900 Intake Total 1245.00 1490.00 Output Total 1330 1240 Balance -85.00 250.00 Intake, IV 1005.00 1490.00 Intake, Oral 240 Output, 60 40 Drainage Output, 20 Emesis Output, Urine 1250 1200 Patient 70.864 kg Weight Weight Standing scale Measurement Method Patient Weight Weight (lb): 156 Weight (oz): 3.65 Weight (kg): 70.76 Medications: Active Meds + DC'd Last 24 Hrs Aspirin 81 MG DAILY PO (DC) Aspirin [...] MG Q8H IV (DC) Sodium Chloride 10 ML Acetaminophen/Codeine Phosphate 2 UDTAB Q4H PRN PRN [...] MG ASDIR PRN IV Sodium Chloride 100 ML Nicardipine HCl 25 MG ASDIR PRN IV Sodium Chloride 250 ML Nifedipine 10 MG Q4H PRN PRN SL Ondansetron HCl 4 MG Q8H PRN PRN IV Phenol 5 SPRAY Q2H PRN PRN MM Potassium Chloride 10 MEQ ASDIR PRN PO Glycopyrrolate 0 .STK-MED ONE .ROUTE (DC) Nicardipine HCl 25 MG ASDIR IV (DC) Sodium Chloride 250 ML Bacitracin 0 .STK-MED ONE Z (DC) Nicardipine HCl [...] General appearance: alert, awake, oriented, no acute distress Wound/incision: Location: right neck Site condition: dressing clean dry, dressing intact, incision intact, no drainage, no ecchymosis Neck: tenderness (right neck), Right IJ BLAKE with minimal serosanguinous drainage Cardiovascular: BP/pulses equal bilat., normal heart sounds, regular rate rhythm Respiratory: aerating well, clear to auscultation, symmetric expansion, no distress Abdomen: soft, non-tender, normal bowel sounds, no distention Genitourinary: spencer Extremities: moves all, no edema Neuro/WAXER: alert, oriented X 3, CNII-XII intacte, normal gait, normal speech, no motor deficits, no sensory deficits, Tongue is midline without deviation Results Findings/Data: Laboratory Tests 09/30 1530 Blood Gas Puncture Site [...] (14 - 44 %) 8.7 L 30.3 [place] % (Auto) (4 - 13 %) 8.4 10.8 Eos % (Auto) (0 - 6 %) 0.1 3.0 Baso % (Auto) (0 - 2 %) 0.2 0.3 Neut # (Auto) (2.0 - 7.6 K/mm3) 8.82 H 5.97 Lymph # (Auto) (1.0 - 3.8 K/mm3) 0.93 L 3.28 [place] # (Auto) (0.1 - 0.8 K/mm3) 0.90 H 1.17 H Eos # (Auto) (0.0 - 0.2 K/mm3) 0.01 0.32 H Baso # (Auto) (0.0 - 0.2 K/mm3) 0.02 0.03 Immature Gran % (0.0 - 2.0 %) 0.4 0.6 Nucleated RBC % (0 - 1.0 %) 0.0 0.0 Nucleated RBCs # (Man) (0.0 - 0.1 K/mm3) 0.00 0.00 Radiology data: Recent Impressions: RADIOLOGY - XR CHEST 1V 09/30 1516 Report Impression - Status: SIGNED Entered: 09/30/2018 1532 IMPRESSION: Mild congestive changes bilaterally. No pneumothorax. Impression By: 16 - Ryann Zuniga MD RADIOLOGY - XR CHEST 1V 10/01 0449 Report Impression - Status: SIGNED Entered: 10/01/2018 0748 IMPRESSION: Mild left basilar atelectasis and/or pleural fluid. Impression By: [email or web address] - Kayode Juarez MD Diagnosis, Assessment Plan Free Text A P: This is a 72 Y/F with LITTLE stenosis S/p Right CEA-tongue is midline without deviation, mild left facial droop On statin/plavix/aspirin D/C right IJ BLAKE drain today HTN-home meds resumed. DVT prophylaxis-SCDs and TEDs D/C spencer D/C radial arterial line Encourage IS and ambulation Plan: CVU transfer this afternoon with stable B/P. Plan discussed with: patient, collaborating MD (Dr. Kc) at 1105 Addendum 1: 10/01/18 1516 by Billie Valadez NP A/P HTN-B/B elevated with systolic 180-200's this afternoon. Patient restrated on cardene gtt. procardia SL ordered. Will monitor in ICU. Robin remains neurologically intact. right neck dressing D/c/I. D/w with Dr. Kc, patient, and BS RN. at 1518 at 1954 RPT #:[id number] END OF REPORT [facility] 2018-10-01 10:27:00 [facility] Cardiovascular Surgery Prog REPORT#:[id number] REPORT STATUS: Signed DATE:10/01/18 TIME: 1027 PATIENT: RACHEAL SABILLON UNIT #: [id number] ROOM/BED: [address] : [birth year] AGE: 72 SEX: F ATTEND: Rohith Kc MD ADM AUTHOR: Billie Valadez NP * ALL edits or amendments must be made on the electronic/computer document * See Addendum General Post-op: day 1 Status post: Right CEA Subjective Patient reports: Yes: incisional pain (right neck). No: chest pain, nausea, vomiting. Comments: Seen at bedside Reports right neck incision pain Tongue is midline without deviation, mild left facial droop. No swallowing difficulties Has ambulated well with PT this morning without any focal difficulties. Review of Systems Constitutional: Denies: chills, fatigue, fever, generalized weakness. Respiratory: Denies: NEGRO (dyspnea on exertion), SOB. Cardiovascular: Denies: chest pain, NEGRO (dyspnea on exertion), edema, orthopnea, palpitations. Objective Physical Exam VS/I O: Last Documented: Result Date Time Pulse Ox 100 10/01 0700 B/P 129/68 10/01 0700 B/P Mean 91 10/01 0700 Pulse 84 10/01 0700 Resp 20 10/01 0700 Temp 98.7 10/01 0400 O2 Delivery Nasal cannula 10/01 1999 O2 Flow Rate 2.464079 10/01 1999 FiO2 40 09/30 1512 24 hour I O ending at 0700: 10/01 0700 09/30 1900 Intake Total 1245.00 1490.00 Output Total 1330 1240 Balance -85.00 250.00 Intake, IV 1005.00 1490.00 Intake, Oral 240 Output, 60 40 Drainage Output, 20 Emesis Output, Urine 1250 1200 Patient 70.864 kg Weight Weight Standing scale Measurement Method Patient Weight Weight (lb): 156 Weight (oz): 3.65 Weight (kg): 70.76 Medications: Active Meds + DC'd Last 24 Hrs Aspirin 81 MG DAILY PO (DC) Aspirin [...] MG Q8H IV (DC) Sodium Chloride 10 ML Acetaminophen/Codeine Phosphate 2 UDTAB Q4H PRN PRN [...] MG ASDIR PRN IV Sodium Chloride 100 ML Nicardipine HCl 25 MG ASDIR PRN IV Sodium Chloride 250 ML Nifedipine 10 MG Q4H PRN PRN SL Ondansetron HCl 4 MG Q8H PRN PRN IV Phenol 5 SPRAY Q2H PRN PRN MM Potassium Chloride 10 MEQ ASDIR PRN PO Glycopyrrolate 0 .STK-MED ONE .ROUTE (DC) Nicardipine HCl 25 MG ASDIR IV (DC) Sodium Chloride 250 ML Bacitracin 0 .STK-MED ONE Z (DC) Nicardipine HCl [...] General appearance: alert, awake, oriented, no acute distress Wound/incision: Location: right neck Site condition: dressing clean dry, dressing intact, incision intact, no drainage, no ecchymosis Neck: tenderness (right neck), Right IJ BLAKE with minimal serosanguinous drainage Cardiovascular: BP/pulses equal bilat., normal heart sounds, regular rate rhythm Respiratory: aerating well, clear to auscultation, symmetric expansion, no distress Abdomen: soft, non-tender, normal bowel sounds, no distention Genitourinary: spencer Extremities: moves all, no edema Neuro/WAXER: alert, oriented X 3, CNII-XII intacte, normal gait, normal speech, no motor deficits, no sensory deficits, Tongue is midline without deviation Results Findings/Data: Laboratory Tests 09/30 1530 Blood Gas Puncture Site [...] Device FT/NC FiO2 (%) 40 Laboratory Tests 10/010 2215 1515 Chemistry Sodium (137 - 145 [...] (14 - 44 %) 8.7 L 30.3 [place] % (Auto) (4 - 13 %) 8.4 10.8 Eos % (Auto) (0 - 6 %) 0.1 3.0 Baso % (Auto) (0 - 2 %) 0.2 0.3 Neut # (Auto) (2.0 - 7.6 K/mm3) 8.82 H 5.97 Lymph # (Auto) (1.0 - 3.8 K/mm3) 0.93 L 3.28 [place] # (Auto) (0.1 - 0.8 K/mm3) 0.90 H 1.17 H Eos # (Auto) (0.0 - 0.2 K/mm3) 0.01 0.32 H Baso # (Auto) (0.0 - 0.2 K/mm3) 0.02 0.03 Immature Gran % (0.0 - 2.0 %) 0.4 0.6 Nucleated RBC % (0 - 1.0 %) 0.0 0.0 Nucleated RBCs # (Man) (0.0 - 0.1 K/mm3) 0.00 0.00 Radiology data: Recent Impressions: RADIOLOGY - XR CHEST 1V 09/30 1516 Report Impression - Status: SIGNED Entered: 09/30/2018 1532 IMPRESSION: Mild congestive changes bilaterally. No pneumothorax. Impression By: 16 - Ryann Zuniga MD RADIOLOGY - XR CHEST 1V 10/01 0449 Report Impression - Status: SIGNED Entered: 10/01/2018 0748 IMPRESSION: Mild left basilar atelectasis and/or pleural fluid. Impression By: [email or web address] - Kayode Juarez MD Diagnosis, Assessment Plan Free Text A P: This is a 72 Y/F with LITTLE stenosis S/p Right CEA-tongue is midline without deviation, mild left facial droop On statin/plavix/aspirin D/C right IJ BLAKE drain today HTN-home meds resumed. DVT prophylaxis-SCDs and TEDs D/C spencer D/C radial arterial line Encourage IS and ambulation Plan: CVU transfer this afternoon with stable B/P. Plan discussed with: patient, collaborating MD (Dr. Kc) at 1105 at 1955 Addendum 1: 10/01/18 1516 by Billie Valadez NP A/P HTN-B/B elevated with systolic 180-200's this afternoon. Patient restrated on cardene gtt. procardia SL ordered. Will monitor in ICU. Robin remains neurologically intact. right neck dressing D/c/I. D/w with Dr. Kc, patient, and BS RN. at 1518 at 1954 RPT #:[id number] END OF REPORT [facility] 2018-10-01 08:08:00 [id number] [place] [id number] PATIENT NAME: RACHEAL SABILLON ADMIT DATE: 09/30/18 ACCOUNT NO: [id number] ROOM NO: Z.SI07 AGE: 72 REPORT TYPE: ELECTROCARDIOGRAM SEX: F ADMITTING PHYSICIAN:Rohith Kc MD ATTENDING PHYSICIAN:Rohith Kc MD Order: [id number] Test Reason : CAD Test Date/Time Stamp: SatOct 01 2018 08:08:06 Blood Pressure : / mmHG Vent. Rate : 072 BPM Atrial Rate : 072 BPM P-R Int : 158 ms QRS Dur : 078 ms QT Int : 396 ms P-R-T Axes : 071 009 066 degrees QTc Int : 433 ms Normal sinus rhythm Normal ECG When compared with ECG of 30-SEP-2018 17:52, No significant change was found Confirmed by JOSE MARC ([id number]) on 10/01/2018 4:11:20 PM Referred By: Rohith Kc Confirmed by:JOSE MARC at 1611 PATIENT NAME: RAC[facility]ABILLON [facility] 2018-09-30 19:05:00 [facility] ([facility]) Adult General Consultation REPORT#:[id number] REPORT STATUS: Signed DATE:09/30/18 TIME: 1904 PATIENT: RACHEAL SABILLON UNIT #: [id number] ROOM/BED: SI07-A : 46 AGE: 72 SEX: F ATTEND: Rohith Kc MD ADM AUTHOR: Mariana Humphrey MD * ALL edits or amendments must be made on the electronic/computer document * History of Present Illness Requesting Clinician: dr kc Reason for consult: medical management HPI: pt is 72 y/o female with h/o CAD and stent , HTN, HLD underwent Procedures performed: Right carotid endarterectomy with hemashield patch arterioplasty. pt is admitted for post op care. History - Adult longitudinal Past medical history: Reports: Coronary artery disease, Hypertension, Dyslipidemia, Thyroid disorder. Additional medical history: mitral regurgitation splemnectomy hypothyroidism thrombocytopenia Smoking status for patients 13 years old or older: Former Smoker Additional social history: lives with Allergies: Coded Allergies: No Known Allergies (09/29/18) Review of Systems All systems rev neg: except as marked Objective VS/I O: Last Documented: Result Date Time Pulse Ox 96 09/30 1801 Pulse 77 09/30 1801 Resp 20 09/30 1801 B/P 109/61 09/30 1800 B/P Mean 80 09/30 1800 O2 Delivery Nasal cannula 09/30 1630 O2 Flow Rate 3.392717 09/30 1630 FiO2 40 09/30 1512 Temp 97.6 09/30 1512 24 hour I O ending at 0700: 09/30 0700 09/29 1900 Intake Total Output Total Balance Patient 69.09 kg Weight Weight Stated/Reported Measurement Method Patient Weight Weight (lb): 156 Weight (oz): 3.65 Weight (kg): 70.864 General appearance: awake Head/Eyes: EOMI, PERRLA Neck: right neck dressing intact Cardiovascular: regular rate rhythm, normal heart sounds Respiratory: aerating well, symmetric expansion Abdomen: soft, non-tender Extremities: moves all, no edema Neuro/WAXER: alert, no motor deficits Skin: dry, intact Psychiatry: normal affect Results Findings/Data: Laboratory Tests: 09/30 09/30 1530 5355 Blood Gas Puncture Site AL ABG pH [...] % (Auto) (14 - 44 %) 30.3 [place] % (Auto) (4 - 13 %) 10.8 Eos % (Auto) (0 - 6 %) 3.0 Baso % (Auto) (0 - 2 %) 0.3 Neut # (Auto) (2.0 - 7.6 K/mm3) 5.97 Lymph # (Auto) (1.0 - 3.8 K/mm3) 3.28 [place] # (Auto) (0.1 - 0.8 K/mm3) 1.17 [...] 1515 MRSA Screen - RECD NASAL Recent Impressions: RADIOLOGY - XR CHEST 1V 09/30 1516 Report Impression - Status: SIGNED Entered: 09/30/2018 1532 IMPRESSION: Mild congestive changes bilaterally. No pneumothorax. Impression By: Bernie - Ryann Zuniga MD Diagnosis, Assessment Plan Free Text DxA P Notes Free Text DxA P Notes: pt is 72 y/o female with h/o CAD and stent , HTN, HLD, hypothyroidism underwent Procedures performed: Right carotid endarterectomy with hemashield patch arterioplasty. pt is admitted for post op care. plan: contieu treatment per dr kc and monitor clinical recovery. Quality Medications Current medication review: I attest that the foregoing medication list in the medical record is true, accurate, and complete to the best of my knowledge. VTE Prophylaxis VTE prophylaxis initiated: yes Advanced Care Plan 65 or Older Discussed with: patient, surrogate decis. maker Discussion included: code status (full code) BMI Screening > 25 or < 18.5 Patient's BMI: Current BMI: 29.5 Tobacco Use/Counseling Tobacco use/counseling: non tobacco user HTN Screening/Follow-up Last documented vitals: Last Documented: Result Date Time Pulse Ox 100 10/01 1442 FiO2 28 10/01 1442 O2 Delivery Nasal cannula 10/01 1442 Pulse 77 10/01 1441 Resp 15 10/01 1441 B/P 196/93 10/01 1434 B/P Mean 134 10/01 1434 Temp 98.1 10/01 1152 O2 Flow Rate 3.224025 10/01 0800 B/P assess/follow-up: pre-existing hx of HTN at 1500 RPT #:[id number] END OF REPORT [facility] 2018-09-30 17:52:00 [id number] [place] [id number] PATIENT NAME: RACHEAL SABILLON ADMIT DATE: 09/30/18 ACCOUNT NO: [id number] ROOM NO: Z.SI07 AGE: 72 REPORT TYPE: ELECTROCARDIOGRAM SEX: F ADMITTING PHYSICIAN:Rohith Kc MD ATTENDING PHYSICIAN:Rohith Kc MD Order: [id number] Test Reason : post op Test Date/Time Stamp: SatSep 30 2018 17:52:09 Blood Pressure : / mmHG Vent. Rate : 080 BPM Atrial Rate : 080 BPM P-R Int : 174 ms QRS Dur : 084 ms QT Int : 390 ms P-R-T Axes : 061 011 066 degrees QTc Int : 449 ms Normal sinus rhythm Normal ECG When compared with ECG of 29-SEP-2018 12:39, QT has lengthened Confirmed by JOSE MARC ([id number]) on 09/30/2018 6:07:46 PM Referred By: Rohith Kc Confirmed by:JOSE MARC at 1807 PATIENT NAME: RACHEAL SABILLON [facility] 2018-09-30 15:15:00 [id number] [address] PATIENT NAME: RACHEAL SABILLON ADMIT DATE: 09/30/18 ACCOUNT NO: [id number] ROOM NO: Z.SI07 AGE: 72 REPORT TYPE: OPERATIVE REPORT SEX: F ADMITTING PHYSICIAN:Rohith Kc MD ATTENDING PHYSICIAN:Rohith Kc MD OPERATION DATE: 09/30/2018 PREOPERATIVE DIAGNOSIS: Right internal carotid stenosis. POSTOPERATIVE DIAGNOSIS: Right internal carotid stenosis. PROCEDURE: CVP insertion, right carotid endarterectomy, Hemashield patch arterioplasty. SURGEON: Rohith Kc MD INTEGRATED LOGISTICS OPERATIONS MANAGER: Brisa Moser PA-C ANESTHESIA: General. COMPLICATIONS: None. DISPOSITION: The patient to surgical ICU in stable condition. DESCRIPTION OF PROCEDURE: On 09/30/2018, the patient was brought to the operating room, placed on the operating table in supine position, prepped and draped in usual fashion. Following introduction of satisfactory general anesthesia, placement of monitoring lines, Spencer catheter, hips, shoulders, elbows padded in usual fashion. Left subclavian CVP was placed using Seldinger percutaneous guidewire technique. The patient was then prepped and draped in usual fashion. Neck extended, turned to left 45 degree angle. Incision made along the anterior border of the sternocleidomastoid muscle on the right side. We dissected down to the right carotid sheath and vessels placed on the right arterial branches. Heparin given. Clamps were placed, arteriotomy in the common carotid through a very tight greater than 90% on deep thick plaque in the internal carotid artery and extended up onto the internal carotid artery beyond the plaque. We then irrigated with heparin saline solution. A shunt was placed and endarterectomy performed, plaque feathered out nicely internal carotid artery, we irrigated with heparin saline solution and then Hemashield patch arterioplasty closure with running 5-0 Prolene suture. Prior to patch closure completion, shunt removed. All branches allowed to backbleed to flush any debris and patch closure was completed. Clamps were released. Excellent pulse by palpation and Doppler within the incisions. Protamine given, hemostasis achieved. Wounds were irrigated with antibiotic saline solution and closed in layers in usual fashion. Dressings applied. Hawk-Montez drain already has been placed and then just before wound was closed, dressings applied, and the patient was awakened intact neurologically and taken to surgical ICU in stable PATIENT NAME: RACHEAL SABILLON condition. Dictated By: Rohith Kc MD WT: OP:GERARDO/ISAÍAS/ANATOLY Conf#: [id number]/DID#: [id number] cc: Jose Marc MD Authenticated by Rohith Kc MD On 10/10/2018 11:40:08 PM at 2340 PATIENT NAME: RACHEAL SABILLON [facility] 2018-09-30 15:11:00 [facility] ([facility]) Brief Op Note REPORT#:[id number] REPORT STATUS: Signed DATE:09/30/18 TIME: 1510 PATIENT: RACHEAL SABILLON UNIT #: [id number] ROOM/BED: [address] : 46 AGE: 72 SEX: F ATTEND: Rohith Kc MD ADM AUTHOR: Brisa Moser * ALL edits or amendments must be made on the electronic/computer document * Op/Inv Proc Note - Brief Pre-procedure diagnosis: Right internal carotid artery stenosis Post-procedure diagnosis: same as pre procedure dx Procedures performed: Right carotid endarterectomy with hemashield patch arterioplasty. Insertion of left subclavian central line using sonosite US guidance Primary Surgeon: Rohith Kc Manager Strategic Marketing(s): Brisa Moser PA-C Anesthesiologist: Dr. Idalia Singleton CRNA Anesthesia: general anesthesia Findings: See detailed op report Complications: none Estimated blood loss in ml's: 150cc Specimens removed/altered: plaque from right carotid artery Drain(s): Spencer Catheter Placed, BLAKE drain Implant(s): hemashield patch Disposition: ICU (in a ), stable at 1514 RPT #:[id number] END OF REPORT [facility] 2018-09-30 15:11:00 [facility] ([facility]) Brief Op Note REPORT#:[id number] REPORT STATUS: Signed DATE:09/30/18 TIME: 1510 PATIENT: RACHEAL SABILLON UNIT #: [id number] ROOM/BED: [address] : 46 AGE: 72 SEX: F ATTEND: Rohith Kc MD ADM AUTHOR: Brisa Moser * ALL edits or amendments must be made on the electronic/computer document * Op/Inv Proc Note - Brief Pre-procedure diagnosis: Right internal carotid artery stenosis Post-procedure diagnosis: same as pre procedure dx Procedures performed: Right carotid endarterectomy with hemashield patch arterioplasty. Insertion of left subclavian central line using sonosite US guidance Primary Surgeon: Rohith Kc Manager Strategic Marketing(s): Brisa Moser PA-C Anesthesiologist: Dr. Idalia Singleton CRNA Anesthesia: general anesthesia Findings: See detailed op report Complications: none Estimated blood loss in ml's: 150cc Specimens removed/altered: plaque from right carotid artery Drain(s): Spencer Catheter Placed, BLAKE drain Implant(s): hemashield patch Disposition: ICU (in a ), stable at 1514 at 1535 RPT #:[id number] END OF REPORT [facility] 2018-09-29 12:39:00 [id number] [place] [address] PATIENT NAME: RACHEAL SABILLON ADMIT DATE: ACCOUNT NO: [id number] ROOM NO: AGE: 72 REPORT TYPE: ELECTROCARDIOGRAM SEX: F ADMITTING PHYSICIAN:Rohith Kc MD ATTENDING PHYSICIAN:Rohith Kc MD Order: [id number] Test Reason : PRE-OP Test Date/Time Stamp: SatSep 29 2018 12:39:21 Blood Pressure : / mmHG Vent. Rate : 057 BPM Atrial Rate : 057 BPM P-R Int : 164 ms QRS Dur : 080 ms QT Int : 406 ms P-R-T Axes : 063 053 071 degrees QTc Int : 395 ms Sinus bradycardia Otherwise normal ECG When compared with ECG of 20-SEP-2018 06:12, T wave amplitude has increased in Inferior leads Confirmed by JOSE MARC ([id number]) on 09/29/2018 4:48:14 PM Referred By: Rohith Kc Confirmed by:JOSE MARC at 1648 PATIENT NAME: RACHEAL SABILLON [facility] 2018-09-20 12:37:00 [id number] [address] PATIENT NAME: RACHEAL SABILLON ADMIT DATE: 09/20/18 ACCOUNT NO: [id number] ROOM NO: AGE: 72 REPORT TYPE: CONSULTATION REPORT SEX: F ADMITTING PHYSICIAN: ATTENDING PHYSICIAN:Jose Marc MD CONSULTATION DATE: 09/20/2018 CONSULTING PHYSICIAN: Rohith Kc MD CARDIAC SURGERY SERVICE DIAGNOSES: Bilateral carotid stenosis, coronary artery disease, hypertension, and hyperlipidemia. BRIEF HISTORY: This is a 72-year-old woman status post coronary artery stent in the past. Cardiac cath today shows only some moderate coronary artery disease with normal LV function. Plan is to treat the patient medically. She had carotid duplex imaging in the past and recently, which showed high-grade right internal carotid artery stenosis 90%, left 70%. On carotid artery angiogram today she has a high-grade 90% stenosis of right internal carotid artery and 70% on the left side. The patient denies any previous history of stroke or TIA. REVIEW OF SYSTEMS: Otherwise are negative. She did not have an NC at the time of the previous stent. She has hypertension and hyperlipidemia. No diabetes. Review of systems otherwise is negative. No history of hemophilia or coagulopathy. SOCIAL HISTORY: She was a smoker in the past, but not currently. FAMILY HISTORY: Positive in family for hypertension, diabetes, and hyperlipidemia. The patient denies varicose vein, vein stripping or phlebitis, DVT. PHYSICAL EXAMINATION: GENERAL: Demonstrates well-nourished female, in no apparent distress. NECK: No carotid bruits. Carotid pulse present. Radial pulse present. CHEST: Clear. HEART: Regular rate and rhythm without murmurs. ABDOMEN: Soft, nontender, without mass. EXTREMITIES: Peripheral pulse present. BREASTS, GENITOURINARY, AND RECTAL: Not done. NEUROLOGIC: Physiological. ASSESSMENT: Right internal carotid artery stenosis. RECOMMENDATION: For the patient to have a right carotid endarterectomy. The patient will be discharged home today. We will schedule the patient as an PATIENT NAME: RACHEAL SABILLON outpatient. The procedure, the alternatives, possible risks and complications including the inherent and other risks are explained to the patient and family, they understand and accept, want to proceed. They had a chance to ask question and want to proceed. Dictated By: Rohith Kc MD WT: CON:ZSULY/MCKRO/NTS Conf#: [id number]/DID#: [id number] Authenticated by Rohith Kc MD On 10/10/2018 11:31:10 PM at 2331 PATIENT NAME: RACHEAL SABILLON [facility] 2018-09-20 10:18:00 [id number] [place] [address] PATIENT NAME: RACHEAL SABILLON ADMIT DATE: 09/20/18 ACCOUNT NO: [id number] ROOM NO: AGE: 72 REPORT TYPE: eCAROTID ULTRASOUND SEX: F ADMITTING PHYSICIAN: ATTENDING PHYSICIAN:Jose Marc MD *[facility]* [address] [place], [place] [id number] Carotid Duplex Study Patient: Racheal Sabillon Study Date: 09/20/2018 BP: 141 / 72 Location: [facility] URN: [id number] : 1945 Age: 72 Height: 61 in / 154.9 cm Gender: F Weight: 145 lb / 65.9 kg BMI/BSA: 27.5 kg/m 2 / 1.7 m 2 *Ordering Physician: * Jose Marc MD *Interpreting Physician: * Jose Marc MD *Salesperson [employer]: * Ruthann Nogueira RVT Indications: CAD tribal or graft. Study data: Carotid duplex study. Bilateral evaluation with grayscale 2D imaging, color Doppler imaging, and spectral Doppler analysis. Location: Recovery room. Patient status: Outpatient. Patient room number: CH2. Procedure: A vascular evaluation was performed. Images were obtained using a [employer] vascular ultrasound machine. Image quality was adequate. Study status: Routine. Findings Carotid/vertebral arteries: Right common carotid: The vessel is normal; it has no evidence of disease. Right internal carotid: The vessel is tortuous. The proximal vessel has mild to moderate plaque. Proximal vessel lesion: There is a PATIENT NAME: RACHEAL SABILLON 60-79%stenosis. Right external carotid: The vessel has minimal plaque. Right vertebral: The arterial flow direction is antegrade. Left vertebral: The arterial flow direction is antegrade. Left common carotid: The vessel is normal; it has no evidence of disease. Left internal carotid: The vessel is tortuous. The proximal vessel has plaque. Proximal vessel lesion: There is a 60-79%stenosis. Left external carotid: The vessel has plaque. Arterial flow: Location PSV* EDV* PSV Stenosis Location PSV* EDV* PSV Stenosis ratio ratio R CCA, prox 52 12 ----- -------- L CCA, 52 12 ----- -------- prox R CCA, 60 17 ----- -------- L CCA, 46 14 ----- -------- distal distal R ICA, prox 185 73 3.08 60-79% L ICA, 152 59 2.95 60-79% prox R ICA, 54 18 0.9 -------- L ICA, 43 12 0.82 -------- distal distal R ECA 77 ---- ----- -------- L ECA 96 ---- ----- -------- R vertebral 51 21 ----- -------- L 66 25 ----- -------- vertebra l *Velocities are expressed in cm/sec, Diameters are expressed in cm Conclusions 1. Study suggests 60-79% stenosis involving the right internal carotid artery and left internal carotid artery. 2. Antegrade flow noted in the right vertebral artery and left vertebral artery. Prepared and electronically signed by Jose Marc MD 09/20/2018 10:18 at 1019 PATIENT NAME: RACHEAL SABILLON [facility] 2018-09-20 07:38:00 [id number] [address] PATIENT NAME: RACHEAL SABILLON ADMIT DATE: 09/20/18 ACCOUNT NO: [id number] ROOM NO: AGE: 72 REPORT TYPE: CARDIAC CATHETERIZATION REPORT SEX: F ADMITTING PHYSICIAN: ATTENDING PHYSICIAN:Jose Marc MD PROCEDURE DATE: 09/20/2018 CARDIOVASCULAR PROCEDURE SEAFOOD FARMER: Jose Marc MD INDICATION FOR THE PROCEDURE: Dyspnea, coronary artery disease, previous stent, severe carotid disease, and uncontrolled hypertension. TITLE OF THE PROCEDURE: 1. Left heart catheterization. 2. Selective bilateral carotid angiograms. 3. Selective bilateral renal angiograms. ESTIMATED BLOOD LOSS: Minimal. COMPLICATIONS: None. CONTRAST: 140 mL. ANESTHESIA: Conscious sedation with Versed and fentanyl that was actually not required and local anesthesia with lidocaine. FINAL DIAGNOSES: Single-vessel coronary artery disease, patent circumflex stent, severe bilateral carotid disease and no renal artery stenosis. PROCEDURE IN DETAIL: After informed consent, the patient was brought to the cardiac catheterization lab in a stable fasting nonsedated state. She did not require conscious sedation in the laborer general. She did have Valium and Benadryl in the holding area. After local anesthesia, a 6-Kyrgyz sheath was placed in the right common femoral artery using standard techniques and fluoroscopy. After heparinization, left coronary angiogram showed calcified coronary system. She has a patent circumflex stent in the mid vessel. She has 30% plaquing the first obtuse marginal and 60% xtv-nj-zebvup disease in the circumflex: The circumflex and the right coronary artery appeared to be a codominant system. The right coronary artery is small with 20% plaquing. The LAD had scattered plaquing of 20%. Left ventricular angiogram showed an ejection fraction of 75%. Left ventricular end-diastolic pressure of 20 and no wall motion abnormalities or aortic valve gradient. The right carotid was about 90% calcified. The left carotid was eccentric at 70%. Both were at the internal. Given her uncontrolled hypertension with multiple medications, I did selective bilateral renal angiograms that showed no renal artery stenosis. The right groin was PATIENT NAME: RACHEAL SABILLON sealed using Angio-Seal. There were no complications. The patient tolerated the procedure well. The patient will be referred for carotid surgery and she will be continued on medical therapy for her coronary artery disease. Dictated By: Jose Marc MD WT: CATH:WILFREDO/MANDIE/ANATOLY Conf#: [id number]/DID#: [id number] Authenticated by Jose Marc MD On 09/20/2018 08:15:26 AM at 0815 PATIENT NAME: RAC[facility]AL [facility]ABILLON [facility] 2018-09-20 06:12:00 [id number] [facility] [place] [id number] PATIENT NAME: RACHEAL SABILLON ADMIT DATE: 09/20/18 ACCOUNT NO: [id number] ROOM NO: AGE: 72 REPORT TYPE: ELECTROCARDIOGRAM SEX: F ADMITTING PHYSICIAN: ATTENDING PHYSICIAN:Jsoe Marc MD Order: [id number] Test Reason : PREOP Test Date/Time Stamp: SatSep 20 2018 06:12:04 Blood Pressure : / mmHG Vent. Rate : 058 BPM Atrial Rate : 058 BPM P-R Int : 174 ms QRS Dur : 076 ms QT Int : 400 ms P-R-T Axes : 046 044 039 degrees QTc Int : 392 ms Sinus bradycardia Otherwise normal ECG No previous ECGs available Confirmed by JOSE MARC ([id number]) on 09/20/2018 9:21:38 AM Referred By: Jose Marc Confirmed by:JOSE MARC at 0921 PATIENT NAME: RACHEAL SABILLON [facility] 2018-09-19 18:46:00 [id number] [facility] n [address] [address] PATIENT NAME: RACHEAL SABILLON ADMIT DATE: 09/20/18 ACCOUNT NO: [id number] ROOM NO: AGE: 72 REPORT TYPE: HISTORY AND PHYSICAL SEX: F ADMITTING PHYSICIAN: ATTENDING PHYSICIAN:Jose Marc MD PATIENT NAME: RACHEAL SABILLON ADMIT DATE:09/20/2018 ADMISSION DATE: 09/20/2018 REASON FOR ADMISSION: Cardiac and carotid angiograms to assess for possible revascularization. HISTORY OF PRESENT ILLNESS: Racheal is a 72-year-old lady with known coronary artery disease and multiple cardiovascular risk factors, who was recently evaluated for symptoms of dyspnea. Noninvasive cardiovascular workup showed worsening right carotid disease around 80% to 99%. It was 51% to 69% in the past. The left one remained at 51% to 69%. Her echocardiogram remained stable with mild mitral regurgitation and normal ejection fraction. Her last nuclear stress test in 2017 was negative for ischemia. She has had known coronary artery disease with single-vessel coronary artery disease and had a circumflex stent, Taxus 3 x 12 back in 2003. Given her progression of carotid disease and known coronary artery disease. She is here for cardiac and carotid angiograms to assess for possible revascularization and right carotid surgery. The patient is denying any chest pains, TIAs, strokes, or congestive heart failure symptoms. PAST MEDICAL HISTORY: Remarkable for coronary artery disease as per above, hypertension, dilated ascending aorta, hyperlipidemia, mitral regurgitation, bradycardia, dizziness, carotid disease, hypothyroidism, allergic rhinitis, history of thrombocytopenia, status post splenectomy in 1984. PAST SURGICAL HISTORY: As mentioned above. ALLERGIES: NO KNOWN DRUG ALLERGIES. MEDICATIONS: Potassium daily, aspirin 81 mg daily, Plavix 75 mg daily, Levothroid 100 mcg daily, isosorbide 30 mg daily, Plavix 75 mg daily, atorvastatin 40 mg daily, losartan/hydrochlorothiazide 100/12.5 mg daily, metoprolol 100 mg daily. SOCIAL HISTORY: There is no history of smoking, alcohol, or street drug use. The patient quit smoking years ago. FAMILY HISTORY: Positive for atherosclerotic cardiovascular disease. REVIEW OF SYSTEMS: Remarkable for headaches, dry mouth. No acute GI or symptoms. No TIAs or strokes. The rest of the review of system is enclosed in the chart. PATIENT NAME: RACHEAL SABILLON PHYSICAL EXAMINATION: GENERAL: Reveals a pleasant elderly lady in no acute distress. VITAL SIGNS: Blood pressure 122/85, pulse 68 and regular, respiratory rate 16 unlabored, temperature afebrile. HEENT: Head, atraumatic and normocephalic. Eyes and ENT examination within normal for age. NECK: Supple. No jugular venous distention, bruits, or lymphadenopathy. Normal upstroke. LUNGS: Clear and resonant. HEART: Regular rate and rhythm. No murmurs or gallops. ABDOMEN: Soft. No tenderness, no organomegaly, no masses or bruits. EXTREMITIES: 2+ distal pulses. No edema, cyanosis, or clubbing. NEUROLOGIC: Alert and oriented x3. The examination appears to be nonfocal. LABORATORY DATA: Pending. Noninvasive cardiovascular workup enclosed. IMPRESSION: This is a 72-year-old lady with known coronary artery disease and previous stenting, who has progression of her carotid disease. She has dyspnea, multiple cardiovascular risk factors. She has most likely also progressed with her coronary artery disease. She is here for cardiac and carotid angiograms to assess for possible revascularization of her coronaries and for right carotid surgery. The recommendation is to proceed with the above. The risks and benefits of the planned procedures were discussed in detail with the patient and she is willing to proceed. Rest as per orders. Dictated By: Jose Marc MD WT: HP:GERARDO/MANDIE/ANATOLY Conf#: [id number]/DID#: [id number] Authenticated and Edited by Jose Marc MD On 09/20/18 6:13:56 AM at 0615 PATIENT NAME: [facility]
[2024-02-04] MEDS ORDERED: HYDROCODONE/APAP 5/325 MG TAB ONE (14:58)
[2024-02-04] MEDS ORDERED: CODEINE 30MG/APAP 300MG TAB ONE (15:04)
--- NOTE | 2024-02-04 15:22 | RAD REPORT ---
EXAM: Foot Left 3 View HISTORY: PAIN COMPARISON: None FINDINGS: Bones: No acute fracture identified. Alignment:No significant malalignment. Degenerative changes:Calcaneal spurs. Other: Soft tissue prominence at the base of the fifth metatarsal. IMPRESSION: No evidence of acute osseous abnormality involving the imaged foot.
--- NOTE | 2024-02-04 16:44 | EDPHYS ---
Physician Documentation [facility] Name: Racheal Dia Age: 78 yrs Sex: Female : 1945 Arrival Date: 02/04/2024 Time: 14:25 Bed IW1 Private MD: ED Physician Jorgito Kaur HPI: 02/03 21:36 This 78 yrs old Black Female presents to ER via Wheelchair with complaints of Foot Pain.kb 21:36 Pt is a 78 year old female who presents for left foot pain that started months ago. kb States she has been seen here and by podiatry, but they only gave her medicated gauze and no pain medication. Pt states she couldn't handle the pain today. Denies injury or trauma. . Historical: - Allergies: 14:38 No Known Allergies; hb - PMHx: 14:38 CHF; Hypercholesterolemia; Hypertension; Hypertensive disorder; hb - PSHx: 14:38 Heart Stents; Splenectomy; hb - Immunization history:: Adult Immunizations up to date. - Infectious Disease History:: Denies. - Social history:: Smoking status: Patient denies any tobacco usage or history of. ROS: 21:36 Constitutional: As per HPI kb Exam: 21:36 Constitutional: This is a well developed, well nourished patient who is awake, alert, kb and in no acute distress. Head/Face: Normocephalic, atraumatic. ENT: Moist Mucous membranes Cardiovascular: Regular rate Respiratory: Respirations even and unlabored. No increased work of breathing. Talking in full sentences Skin: Warm, dry with normal turgor. Normal color. Neuro: Awake and alert, GCS 15, oriented to person, place, time, and situation. 21:36 Musculoskeletal/extremity: Extremities: grossly normal except: noted in the left foot: pain, tenderness, ROM: intact in all extremities, Circulation is intact in all extremities. Sensation intact. Weight bearing: able to fully bear weight, Vital Signs: 14:37 BP 121 / 105; Pulse 64; Resp 16; Temp 97.2(TE); Pulse Ox 97% on R/A; Weight 61.23 kg; hb Height 5 ft. 1 in. ; Pain 10/10; 16:49 BP 121 / 71; Pulse 61; Resp 17; Pulse Ox 97% ; Pain 7/10; ll1 14:37 Body Mass Index 25.51 (61.23 kg, 154.94 cm) hb 14:37 Pain Scale: Adult hb 16:49 Pain Scale: Adult ll1 MDM: 14:31 Medical Screening Exam initiated kb 21:38 Differential diagnosis: sprain, arthritis. Data reviewed: vital signs, nurses notes. kb Historians other than the Patient: Family Member: family. Counseling: I had a detailed discussion with the patient and/or guardian regarding the historical points, exam findings, and any diagnostic results supporting the discharge/admit diagnosis, radiology results, the need for outpatient follow up, a youth care specialist, to return to the emergency department if symptoms worsen or persist or if there are any questions or concerns that arise at home. 02/03 14:42 Order name: Foot Left 3 View XRAY; Complete Time: 16:01 kb Administered Medications: 15:01 Not Given (Patient Refused): hydrocodone-acetaminophen5 mg-325 mg 1 tabs PO once ll1 15:21 Drug: Acetaminophen-Codeine PO (300 mg-30 mg) 1 tablet PO once; RASS on ADMIN: Combtv4, ll1 Very Agttd3, Agttd2, Rstlss1, AlertClm0, Drwsy-1, Lt Sdtn-2, Mod Sdtn-3, Dp Sdtn-4, UnArsble-5 {Note: pain 1010 RASS 0.} Route: PO; 16:50 Follow up: Response: No adverse reaction ll1 Disposition Summary: 02/04/24 16:44 Discharge Ordered Notes: Location: Home Condition: Stable kb Diagnosis - Pain in left foot kb Followup: kb - With: Emergency Department - When: As needed - Reason: Worsening of condition Followup: kb - With: Private Physician - When: 2 - 3 days - Reason: Recheck today's complaints, Continuance of care, Re-evaluation by your physician Discharge Instructions: - Discharge Summary Sheet kb - Foot Pain kb Forms: - Medication Reconciliation Form kb - Antibiotic Education kb - Prescription Opioid Use kb - Patient Portal Instructions kb - Leadership Thank You Letter kb Signatures: Dispatcher [employer] Rowan Hardwick FNP-C FNP-Ckb Baxter, Heather RN RN Boris Mark RN RN ll1 Corrections: (The following items were deleted from the chart) 14:43 14:43 Foot Left 3 View+RAD.RAD.BRZ ordered. EDMS EDMS
--- NOTE | 2024-02-04 16:44 | ER ---
Nurse's Notes [facility] Name: Racheal Dia Age: 78 yrs Sex: Female : 1945 Arrival Date: 02/04/2024 Time: 14:25 Bed IW1 Private MD: Diagnosis: Pain in left foot Presentation: 02/03 14:37 Chief complaint: Left foot pain x 2 months. Coronavirus screen: At this time, the hb client does not indicate any symptoms associated with coronavirus-19. Ebola Screen: No symptoms or risks identified at this time. Initial Sepsis Screen: Does the patient meet any 2 criteria? No. Patient's initial sepsis screen is negative. Does the patient have a suspected source of infection? No. Patient's initial sepsis screen is negative. Risk Assessment: Do you want to hurt yourself or someone else? Patient reports no desire to harm self or others. Onset of symptoms was November 2023. 14:37 Method Of Arrival: Wheelchair hb 14:37 Acuity: AISHA 4 hb Historical: - Allergies: 14:38 No Known Allergies; hb - PMHx: 14:38 CHF; Hypercholesterolemia; Hypertension; Hypertensive disorder; hb - PSHx: 14:38 Heart Stents; Splenectomy; hb - Immunization history:: Adult Immunizations up to date. - Infectious Disease History:: Denies. - Social history:: Smoking status: Patient denies any tobacco usage or history of. Screenin:50 [facility] ED Fall Risk Assessment (Adult) History of falling in the last 3 months, ll1 including since admission No falls in past 3 months (0 pts) Confusion or Disorientation No (0 pts) Intoxicated or Sedated No (0 pts) Impaired Gait Yes (1 pt) Mobility Assist Device Used Yes (1 pt) Altered Elimination No (0 pt) Score/Fall Risk Level 0 - 2 = Low Risk Maintained a safe environment, Hourly rounding (assess needs \T\ fall precautionary measures) done. Abuse screen: Denies threats or abuse. Nutritional screening: No deficits noted. Tuberculosis screening: No symptoms or risk factors identified. Assessment: 15:06 Reassessment: No changes from previously documented assessment. Patient and/or family ll1 updated on plan of care and expected duration. Pain level reassessed. 16:49 General: Appears in no apparent distress. Behavior is calm, cooperative, appropriate ll1 for age. Pain: Complains of pain in left foot. Musculoskeletal: Reports pain in left foot. Vital Signs: 14:37 BP 121 / 105; Pulse 64; Resp 16; Temp 97.2(TE); Pulse Ox 97% on R/A; Weight 61.23 kg; hb Height 5 ft. 1 in. ; Pain 10/10; 16:49 BP 121 / 71; Pulse 61; Resp 17; Pulse Ox 97% ; Pain 7/10; ll1 14:37 Body Mass Index 25.51 (61.23 kg, 154.94 cm) hb 14:37 Pain Scale: Adult hb 16:49 Pain Scale: Adult ll1 ED Course: 14:28 Patient arrived in ED. im 14:31 Rowan Arechiga FNP-C is PHCP. kb 14:31 Jorgito Kaur MD is Attending Physician. kb 14:38 Triage completed. hb 14:39 Arm band placed on. hb 15:17 Foot Left 3 View XRAY In Process Unspecified. EDMS 16:51 Patient has correct armband on for positive identification. Provided Education on: ll1 return to ED for worsening symptoms. 16:51 No provider procedures requiring assistance completed. Patient did not have IV access ll1 during this emergency room visit. Administered Medications: 15:01 Not Given (Patient Refused): hydrocodone-acetaminophen5 mg-325 mg 1 tabs PO once ll1 15:21 Drug: Acetaminophen-Codeine PO (300 mg-30 mg) 1 tablet PO once; RASS on ADMIN: Combtv4, ll1 Very Agttd3, Agttd2, Rstlss1, AlertClm0, Drwsy-1, Lt Sdtn-2, Mod Sdtn-3, Dp Sdtn-4, UnArsble-5 {Note: pain 10/10 RASS 0.} Route: PO; 16:50 Follow up: Response: No adverse reaction ll1 Medication: 16:51 VIS not applicable for this client. ll1 Outcome: 16:44 Discharge ordered by . kb 16:51 Discharged to home ambulatory, ll1 16:51 Condition: stable 16:51 Discharge instructions given to patient, Instructed on discharge instructions, follow up and referral plans. Demonstrated understanding of instructions, follow-up care, 16:52 Patient left the ED. ll1 Signatures: Dispatcher [employer] EDMS Rowan Arechiga DAYCARE PROVIDER-C DAYCARE PROVIDER-Ckb Maisha Segura, ZANE RN Boris Mark RN RN [facility] [place] Corrections: (The following items were deleted from the chart) 14:39 14:37 BP 148 / 82; Pulse 64bpm; Resp 16bpm; Pulse Ox 97% RA; Temp 97.2F Temporal; Pain hb 10/10, Adult; hb 14:39 14:37 BP 121 / 105; Pulse 64bpm; Resp 16bpm; Pulse Ox 97% RA; Temp 97.2F Temporal; Pain hb 10/10, Adult; hb
[2024-02-04 19:43] VITALS: TEMP 97.2; O2SAT 97
[2024-02-04 19:47] VITALS: BP 121/71
== END 2024-02-04 16:52 | disposition home or self-care (01) ==
LOC: ER 14:25
DX: M79.672 Pain in left foot (principal)
CPT/HCPCS: 99283

== ENCOUNTER 2024-04-17 16:33 | Observation (INO) | payer OTHER ==
--- OUTSIDE RECORDS SUMMARY | 2024-04-17 16:38 | XMS REPORT | Continuity of Care Document ---
Author Name Unknown Address [address] [facility] [address] [facility] [address] [place] [address] [facility] thconnect Address [address] [place] [address] Care Team Providers Care Neon Tube Pumper Name Role Phone Jeremi Alaniz Attending Clinician Unavailable Rohith Cruz Attending Clinician UnavailKatie Garduno Admitting Clinician Unavailable Payers Payer Name Policy Type Policy Number Effective Date Expirati on Date Source MEDICARE NOVITAS [id number] 2011 00:00:00 [facility] MEDICARE NOVITAS [id number] 2011 00:00:00 [facility] MEDICARE NOVITAS [id number] 2011 00:00:00 [facility] MEDICARE PART A \T\ B [id number] 2011 00:00:00 Problems Condition Name Condition Details Condition Category Status Onset Date Resolution Date Last Treatment Date Treating Clinician Comments Source [id number] Stage 3a chronic kidney disease Problem [facility] [id number] Macrocytic Problem Com [facility] [id number] 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 Problem [facility] [id number] Hypercalce em Problem [facility] [id number] Non-season al allergic rhinitis, unspecifie d trigger Problem [facility] [id number] Constipati on, unspecifie d constipati on type Problem [facility] [id number] GERD without esophagiti s Problem [facility] [id number] Mixed hyperlipid emia Problem [facility] [id number] Chronic diastolic congestive heart failure Problem [facility] [id number] Hypothyroi dism, unspecifie d type Problem [facility] [id number] Paroxysmal atrial fibrillati on Problem [facility] [id number] Essential hypertensi on Problem [facility] [id number] S/P splenectom y Problem [facility] Standard chest X-ray abnormal Abnormal chest x-ray Problem [facility] [id number] 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 Problem [facility] [id number] COPD exacerbati on Problem [facility] [id number] Right upper lobe pulmonary nodule Problem [facility] 96060610 Chronic obstructiv e pulmonary disease, unspecifie d COPD type Problem [facility] [id number] Chronic respirator y failure with hypoxia Problem [facility] [id number] Mild aortic stenosis Problem [facility] Allergies, Adverse Reactions, Alerts Allergy Name Allergy Type Status Severity Reaction(s) Onset Date Inactive Date Treating Clinician Comments Source No Known Allergie s DA Active U 05-04 00:00: 00 [facility] No Known Allergie s DA Active U 05-04 00:00: 00 [facility] No Known Allergie s DA Active U 09-29 00:00: 00 [facility] No Known Allergie s DA Active U 09-29 00:00: 00 [facility] No Known Contrast Allergie s DA Active U 06-12 00:00: 00 [facility] No Known Drug Allergie s DA Active U 06-12 00:00: 00 [facility] No Known Food Allergie s DA Active U 06-12 00:00: 00 [facility] No Known Other Allergie s DA Active U 06-12 00:00: 00 [facility] NO KNOWN ALLERGIE S Drug Class Active [facility] Social History Social Habit Start Date Stop Date Quantity Comments Source History of Tobacco Use [facility] Sex Assigned At [facility] Smoking Status Start Date Stop Date Source Never Smoker [facility] Former Smoker 2024-02-07 00:00:00 2024-02-07 00:00:00 [facility] Medications Ordered Medication Name Filled Medication Name Start Date Stop Date Current Medication? Ordering Clinician Indication Dosage Frequency Signature (SIG) Comments Components Source Atorvastati n Calcium 40 MG Atorvastati n Calcium 40 MG No 1{table t} QD Atorvastat in Calcium 40 MG PreserVisio n AREDS 2 PreserVisio n AREDS 2 No 1{puff} QD PreserVisi on AREDS 2 Docusate Sodium 100 MG Docusate Sodium 100 [...] } QID Albuterol Sulfate (2.5 MG/3ML) 0.083% guaiFENesin -Codeine 200-20 MG/10ML guaiFENesin -Codeine 200-20 [...] Comments Source Fluzone Fluzone 2021-03-27 10:30:00 Completed [facility] Fluzone Fluzone 2021-03-27 10:30:00 Completed [facility] Fluzone Fluzone 2021-03-27 10:30:00 Completed [facility] Fluzone Fluzone 2021-03-27 10:30:00 Completed [facility] Pneumovax (PPSV23) Pneumovax (PPSV23) 2021-03-27 10:29:00 Completed [facility] Pneumovax (PPSV23) Pneumovax (PPSV23) 2021-03-27 10:29:00 Completed [facility] Pneumovax (PPSV23) Pneumovax (PPSV23) 2021-03-27 10:29:00 Completed [facility] Pneumovax (PPSV23) Pneumovax (PPSV23) 2021-03-27 10:29:00 Completed [facility] FluAD FluAD 2019-11-27 08:58:00 Completed [facility] FluAD FluAD 2019-11-27 08:58:00 Completed [facility] FluAD FluAD 2019-11-27 08:58:00 Completed [facility] FluAD FluAD 2019-11-27 08:58:00 Completed [facility] FluAD FluAD Unknown Completed [facility] Fluzone Fluzone Unknown Completed [facility] Pneumovax (PPSV23) Pneumovax (PPSV23) Unknown Completed [facility] COVID-19 Vaccine (Nato) COVID-19 Vaccine (Nato) Unknown Completed [facility] FluAD FluAD Unknown Completed [facility] Fluzone Fluzone Unknown Completed [facility] Pneumovax (PPSV23) Pneumovax (PPSV23) Unknown Completed [facility] Influenza Influenza Unknown Completed [facility] COVID-19 Vaccine (Nato) COVID-19 Vaccine (Nato) Unknown Completed [facility] FluAD FluAD Unknown Completed [facility] Fluzone Fluzone Unknown Completed [facility] Pneumovax (PPSV23) Pneumovax (PPSV23) Unknown Completed [facility] Influenza Influenza Unknown Completed [facility] COVID-19 Vaccine (Nato) COVID-19 Vaccine (Nato) Unknown Completed [facility] FluAD FluAD Unknown Completed [facility] Fluzone Fluzone Unknown Completed [facility] Pneumovax (PPSV23) Pneumovax (PPSV23) Unknown Completed [facility] Influenza Influenza Unknown Completed [facility] COVID-19 Vaccine (Nato) COVID-19 Vaccine (Nato) Unknown Completed [facility] FluAD FluAD Unknown Completed [facility] Fluzone Fluzone Unknown Completed [facility] Pneumovax (PPSV23) Pneumovax (PPSV23) Unknown Completed [facility] Influenza Influenza Unknown Completed [facility] COVID-19 Vaccine (Nato) COVID-19 Vaccine (Nato) Unknown Completed [facility] FluAD FluAD Unknown Completed [facility] Fluzone Fluzone Unknown Completed [facility] Pneumovax (PPSV23) Pneumovax (PPSV23) Unknown Completed [facility] Influenza Influenza Unknown Completed [facility] COVID-19 Vaccine (Nato) COVID-19 Vaccine (Nato) Unknown Completed [facility] FluAD FluAD Unknown Completed [facility] Fluzone Fluzone Unknown Completed [facility] Pneumovax (PPSV23) Pneumovax (PPSV23) Unknown Completed [facility] Influenza Influenza Unknown Completed [facility] COVID-19 Vaccine (Nato) COVID-19 Vaccine (Nato) Unknown Completed [facility] FluAD FluAD Unknown Completed [facility] Fluzone Fluzone Unknown Completed [facility] Pneumovax (PPSV23) Pneumovax (PPSV23) Unknown Completed [facility] Influenza Influenza Unknown Completed [facility] COVID-19 Vaccine (Nato) COVID-19 Vaccine (Nato) Unknown Completed [facility] FluAD FluAD Unknown Completed [facility] Fluzone Fluzone Unknown Completed [facility] Pneumovax (PPSV23) Pneumovax (PPSV23) Unknown Completed [facility] Influenza Influenza Unknown Completed [facility] COVID-19 Vaccine (Nato) COVID-19 Vaccine (Nato) Unknown Completed [facility] FluAD FluAD Unknown Completed [facility] Fluzone Fluzone Unknown Completed [facility] Pneumovax (PPSV23) Pneumovax (PPSV23) Unknown Completed [facility] Influenza Influenza Unknown Completed [facility] COVID-19 Vaccine (Nato) COVID-19 Vaccine (Nato) Unknown Completed [facility] FluAD FluAD Unknown Completed [facility] Fluzone Fluzone Unknown Completed [facility] Pneumovax (PPSV23) Pneumovax (PPSV23) Unknown Completed [facility] Influenza Influenza Unknown Completed [facility] Vital Signs Vital Name Observation Time Observation Value Comments S ource height 2024-02-11 15:00:00 60 [in_i] Commo n [facility] weight 2024-02-11 15:00:00 131.0 [lb_av] Co [facility] temperature 2024-02-11 15:00:00 97.3 [degF] Com [facility] bmi 2024-02-11 15:00:00 25.58 kg/m2 Comm on [facility] oximetry 2024-02-11 15:00:00 95 % Commo n [facility] respiratory rate 2024-02-11 15:00:00 17 /min [facility] blood pressure systolic 2024-02-11 15:00:00 103 mm[Hg] [facility] blood pressure diastolic 2024-02-11 15:00:00 60 mm[Hg] [facility] height 2023-12-20 09:10:00 60 [in_i] Commo n [facility] weight 2023-12-20 09:10:00 131.8 [lb_av] Co [facility] temperature 2023-12-20 09:10:00 97.2 [degF] Com [facility] bmi 2023-12-20 09:10:00 25.74 kg/m2 Comm on [facility] oximetry 2023-12-20 09:10:00 96 % Commo n [facility] respiratory rate 2023-12-20 09:10:00 16 /min [facility] blood pressure systolic 2023-12-20 09:10:00 118 mm[Hg] [facility] blood pressure diastolic 2023-12-20 09:10:00 68 mm[Hg] [facility] height 2023-09-19 09:10:00 60 [in_i] Commo n [facility] weight 2023-09-19 09:10:00 135 [lb_av] Comm on [facility] temperature 2023-09-19 09:10:00 97.3 [degF] Com [facility] bmi 2023-09-19 09:10:00 26.36 kg/m2 Comm on [facility] oximetry 2023-09-19 09:10:00 97 % Commo n [facility] blood pressure systolic 2023-09-19 09:10:00 112 mm[Hg] [facility] blood pressure diastolic 2023-09-19 09:10:00 68 mm[Hg] [facility] height 2023-09-19 09:20:00 60 [in_i] Commo n [facility] weight 2023-09-19 09:20:00 135 [lb_av] Comm on [facility] temperature 2023-09-19 09:20:00 97.3 [degF] Com [facility] bmi 2023-09-19 09:20:00 26.36 kg/m2 Comm on [facility] oximetry 2023-09-19 09:20:00 97 % Commo n [facility] blood pressure systolic 2023-09-19 09:20:00 112 mm[Hg] [facility] blood pressure diastolic 2023-09-19 09:20:00 68 mm[Hg] [facility] height 2023-06-17 15:30:00 60 [in_i] Commo n [facility] weight 2023-06-17 15:30:00 132.0 [lb_av] Co on [facility] temperature 2023-06-17 15:30:00 97.7 [degF] Com [facility] bmi 2023-06-17 15:30:00 25.78 kg/m2 Comm on [facility] oximetry 2023-06-17 15:30:00 99 % Commo n [facility] respiratory rate 2023-06-17 15:30:00 18 /min [facility] blood pressure systolic 2023-06-17 15:30:00 115 mm[Hg] Common [facility] blood pressure diastolic 2023-06-17 15:30:00 65 mm[Hg] Common [facility] height 2023-02-19 10:00:00 60 [in_i] Commo n [facility] weight 2023-02-19 10:00:00 117.4 [lb_av] Co [facility] temperature 2023-02-19 10:00:00 98.0 [degF] Com [facility] bmi 2023-02-19 10:00:00 22.93 kg/m2 Comm on [facility] oximetry 2023-02-19 10:00:00 98 % Commo n [facility] respiratory rate 2023-02-19 10:00:00 16 /min [facility] blood pressure systolic 2023-02-19 10:00:00 124 mm[Hg] [facility] blood pressure diastolic 2023-02-19 10:00:00 62 mm[Hg] Common [facility] height 2022-09-18 10:10:00 60 [in_i] Commo n [facility] weight 2022-09-18 10:10:00 112 [lb_av] Comm on [facility] temperature 2022-09-18 10:10:00 97.6 [degF] Com mon [facility] bmi 2022-09-18 10:10:00 21.87 kg/m2 Comm on [facility] oximetry 2022-09-18 10:10:00 99 % Commo n [facility] respiratory rate 2022-09-18 10:10:00 16 /min Common [facility] blood pressure systolic 2022-09-18 10:10:00 110 mm[Hg] [facility] blood pressure diastolic 2022-09-18 10:10:00 77 mm[Hg] Common [facility] height 2022-09-18 10:10:00 60 [in_i] Commo n [facility] weight 2022-09-18 10:10:00 112 [lb_av] Comm on [facility] temperature 2022-09-18 10:10:00 97.6 [degF] Com [facility] bmi 2022-09-18 10:10:00 21.87 kg/m2 Comm on [facility] oximetry 2022-09-18 10:10:00 99 % Commo n [facility] respiratory rate 2022-09-18 10:10:00 16 /min Common [facility] blood pressure systolic 2022-09-18 10:10:00 110 mm[Hg] [facility] blood pressure diastolic 2022-09-18 10:10:00 77 mm[Hg] Common [facility] height 2022-06-25 10:30:00 60 [in_i] Commo n [facility] weight 2022-06-25 10:30:00 115 [lb_av] Comm on [facility] temperature 2022-06-25 10:30:00 96.4 [degF] Com [facility] bmi 2022-06-25 10:30:00 22.46 kg/m2 Comm on [facility] oximetry 2022-06-25 10:30:00 95 % Commo n [facility] respiratory rate 2022-06-25 10:30:00 17 /min [facility] blood pressure systolic 2022-06-25 10:30:00 126 mm[Hg] [facility] blood pressure diastolic 2022-06-25 10:30:00 65 mm[Hg] [facility] height 2021-12-26 10:10:00 60 [in_i] Commo n [facility] weight 2021-12-26 10:10:00 119 [lb_av] Comm on [facility] temperature 2021-12-26 10:10:00 97.5 [degF] Com [facility] bmi 2021-12-26 10:10:00 23.24 kg/m2 Comm on [facility] oximetry 2021-12-26 10:10:00 90 % Commo n [facility] respiratory rate 2021-12-26 10:10:00 16 /min [facility] blood pressure systolic 2021-12-26 10:10:00 111 mm[Hg] Common [facility] blood pressure diastolic 2021-12-26 10:10:00 71 mm[Hg] [facility] height 2021-09-19 14:30:00 61 [in_i] Commo n [facility] weight 2021-09-19 14:30:00 125.6 [lb_av] Co mmon [facility] temperature 2021-09-19 14:30:00 97.3 [degF] Com mon [facility] bmi 2021-09-19 14:30:00 23.73 kg/m2 Comm on [facility] oximetry 2021-09-19 14:30:00 96 % Commo n [facility] respiratory rate 2021-09-19 14:30:00 17 /min Common [facility] blood pressure systolic 2021-09-19 14:30:00 117 mm[Hg] [facility] blood pressure diastolic 2021-09-19 14:30:00 81 mm[Hg] [facility] height 2021-09-19 14:30:00 61 [in_i] Commo n [facility] weight 2021-09-19 14:30:00 125.6 [lb_av] Co on [facility] temperature 2021-09-19 14:30:00 97.3 [degF] Com [facility] bmi 2021-09-19 14:30:00 23.73 kg/m2 Comm on [facility] oximetry 2021-09-19 14:30:00 96 % Commo n [facility] respiratory rate 2021-09-19 14:30:00 17 /min [facility] blood pressure systolic 2021-09-19 14:30:00 117 mm[Hg] [facility] blood pressure diastolic 2021-09-19 14:30:00 81 mm[Hg] Common [facility] height 2021-06-26 09:50:00 61 [in_i] Commo n [facility] weight 2021-06-26 09:50:00 134.9 [lb_av] Co mmon [facility] temperature 2021-06-26 09:50:00 97.0 [degF] Com [facility] bmi 2021-06-26 09:50:00 25.49 kg/m2 Comm on [facility] oximetry 2021-06-26 09:50:00 93 % Commo n [facility] respiratory rate 2021-06-26 09:50:00 17 /min [facility] blood pressure systolic 2021-06-26 09:50:00 132 mm[Hg] [facility] blood pressure diastolic 2021-06-26 09:50:00 65 mm[Hg] Common [facility] height 2021-03-27 10:00:00 61 [in_i] Commo n [facility] weight 2021-03-27 10:00:00 136.3 [lb_av] Co mmon [facility] temperature 2021-03-27 10:00:00 97.3 [degF] Com mon [facility] bmi 2021-03-27 10:00:00 25.75 kg/m2 Comm on [facility] oximetry 2021-03-27 10:00:00 93 % Commo n [facility] respiratory rate 2021-03-27 10:00:00 17 /min [facility] blood pressure systolic 2021-03-27 10:00:00 114 mm[Hg] [facility] blood pressure diastolic 2021-03-27 10:00:00 78 mm[Hg] [facility] Procedures Procedure Date / Time Performed Performing Clinicia n Source [id number] 2019-05-05 00:00:00 [facility] [id number] 2019-05-05 00:00:00 [facility] Encounters Start Date/Time End Date/Time Encounter Type Admission Type Attending Clinicians Care Facility Care Department Encounter ID Source 2024-02-07 10:30:00 Outpatient Alaniz Jeremi ST[facility] ST[facility] [id number] [facility] 2023-02-19 10:08:00 Outpatient Alaniz, Jeremi [facility] [id number] [facility] 2021-09-13 10:23:02 Outpatient Alaniz, Jeremi ST[facility] STLC [id number] [facility] 2021-05-10 14:23:26 Outpatient Alaniz, Jeremi STLC STLC [id number] [facility] 2021-05-10 14:18:25 Outpatient AlanizJeremi STLMLC STLMLC [id number] [facility] 2021-05-10 12:07:25 Outpatient AlanizJeremi STLMLC STLMLC [id number] [facility] 2021-05-10 11:22:27 Outpatient AlanizJeremi STLMLC STLMLC [id number] [facility] 2021-05-10 11:15:02 Outpatient STLMLC STLMLC [id number] [facility] 2019-05-05 10:30:00 Inpatient Rohith Khan [facility] [id number] [facility] 2024-04-02 00:00:00 2024-04-02 00:00:00 (TEL) STLMLC STLMLC [id number] [facility] 2024-02-11 00:00:00 2024-02-11 00:00:00 OFFICE VISIT ESTAB PT LEVEL 3 STLMLC STLMLC [id number] [facility] 2024-02-05 00:00:00 2024-02-05 00:00:00 (TEL) STLMLC STLMLC [id number] [facility] 2023-12-20 00:00:00 2023-12-20 00:00:00 (TEL) STLMLC STLMLC [id number] [facility] 2023-12-20 00:00:00 2023-12-20 00:00:00 OFFICE VISIT ESTAB PT LEVEL 4 STLMLC STLMLC [id number] [facility] 2023-11-05 00:00:00 2023-11-05 00:00:00 (TEL) STLMLC STLMLC [id number] [facility] 2023-09-19 00:00:00 2023-09-19 00:00:00 (HOSP F/U) Hospital Follow Up STLMLC STLMLC [id number] [facility] 2023-09-19 00:00:00 2023-09-19 00:00:00 SUB ANNUAL [facility] WELLNESS VISIT STLMLC STLMLC [id number] [facility] 2023-09-13 00:00:00 2023-09-13 00:00:00 (TEL) STLMLC STLMLC [id number] [facility] 2023-09-13 00:00:00 2023-09-13 00:00:00 (TEL) STLMLC STLMLC [id number] [facility] 2023-06-17 00:00:00 2023-06-17 00:00:00 (HOSP F/U) Hospital Follow Up STLMLC STLMLC [id number] [facility] 2023-06-13 00:00:00 2023-06-13 00:00:00 (TEL) STLMLC STLMLC [id number] [facility] 2023-03-19 00:00:00 2023-03-19 00:00:00 (TEL) STLMLC STLMLC [id number] [facility] 2023-02-19 00:00:00 2023-02-19 00:00:00 OFFICE VISIT ESTAB PT LEVEL 4 STLMLC STLMLC [id number] [facility] 2023-02-15 00:00:00 2023-02-15 00:00:00 (TEL) STLMLC STLMLC [id number] [facility] 2023-02-06 00:00:00 2023-02-06 00:00:00 (TEL) STLMLC STLMLC [id number] [facility] 2023-02-06 00:00:00 2023-02-06 00:00:00 (TEL) STLMLC STLMLC [id number] [facility] 2022-09-18 00:00:00 2022-09-18 00:00:00 OFFICE VISIT ESTAB PT LEVEL 4 STLMLC STLMLC [id number] [facility] 2022-09-18 00:00:00 2022-09-18 00:00:00 SUB ANNUAL [facility] WELLNESS VISIT STLMLC STLMLC [id number] [facility] 2022-06-25 00:00:00 2022-06-25 00:00:00 OFFICE VISIT ESTAB PT LEVEL 4 STLMLC STLMLC [id number] [facility] 2022-03-14 00:00:00 2022-03-14 00:00:00 (TEL) STLMLC STLMLC [id number] [facility] 2022-01-22 00:00:00 2022-01-22 00:00:00 (TEL) STLMLC STLMLC [id number] [facility] 2021-12-26 00:00:00 2021-12-26 00:00:00 OFFICE VISIT ESTAB PT LEVEL 4 STLMLC STLMLC [id number] [facility] 2021-09-19 00:00:00 2021-09-19 00:00:00 OFFICE VISIT ESTAB PT LEVEL 4 STLMLC STLMLC [id number] [facility] 2021-09-19 00:00:00 2021-09-19 00:00:00 SUB ANNUAL MCR WELLNESS VISIT STLMLC STLMLC [id number] [facility] 2021-09-19 00:00:00 2021-09-19 00:00:00 (TEL) STLMLC STLMLC [id number] [facility] 2021-08-29 00:00:00 2021-08-29 00:00:00 (TEL) STLMLC STLMLC [id number] [facility] 2021-06-26 00:00:00 2021-06-26 00:00:00 OFFICE VISIT ESTAB PT LEVEL 4 STLMLC STLMLC [id number] [facility] 2021-03-27 00:00:00 2021-03-27 00:00:00 OFFICE VISIT ESTAB PT LEVEL 4 STLMLC STLMLC [id number] [facility] 2021-03-13 00:00:00 2021-03-13 00:00:00 (TEL) STLMLC STLMLC [id number] [facility] 2021-03-06 00:00:00 2021-03-06 00:00:00 (TEL) STLMLC STLMLC [id number] [facility] 2021-02-10 00:00:00 2021-02-10 00:00:00 (TEL) STLMLC STLMLC [id number] [facility] 2020-12-23 00:00:00 2020-12-23 00:00:00 Outpatient STLMLC STLMLC [id number] [facility] 2020-11-24 00:00:00 2020-11-24 00:00:00 Outpatient STLMLC STLMLC [id number] [facility] 2020-09-29 00:00:00 2020-09-29 00:00:00 Outpatient STLMLC STLMLC [id number] [facility] 2020-09-27 00:00:00 2020-09-27 00:00:00 Outpatient STLMLC STLMLC [id number] [facility] 2020-09-26 00:00:00 2020-09-26 00:00:00 Outpatient STLMLC STLMLC [id number] [facility] 2020-09-26 00:00:00 2020-09-26 00:00:00 Outpatient STLMLC STLMLC [id number] [facility] 2020-09-19 00:00:00 2020-09-19 00:00:00 Outpatient STLMLC STLMLC [id number] [facility] 2020-07-02 11:05:00 2020-07-02 11:05:00 Outpatient [facility] [id number] [facility] 2020-06-11 11:30:00 2020-06-11 11:30:00 Outpatient [facility] [id number] [facility] [facility] 2020-04-05 00:00:00 2020-04-05 00:00:00 Outpatient STLMLC STLMLC [id number] [facility] 2020-03-08 00:00:00 2020-03-08 00:00:00 Outpatient STLMLC STLMLC [id number] [facility] 2020-03-08 00:00:00 2020-03-08 00:00:00 Outpatient STLMLC STLMLC [id number] [facility] 2019-12-03 09:15:00 2019-12-03 09:15:[address] [facility] [facility] [id number] [facility] 2019-11-19 15:09:00 2019-11-19 15:09:[address] [facility] [id number] [facility] 2019-09-03 11:00:00 2019-09-03 11:00:00 [facility] [id number] [facility] 2019-09-03 10:45:00 2019-09-03 10:45:00 [facility] [id number] [facility] 2019-07-23 09:24:00 2019-07-23 09:24:00 [facility] [id number] [facility] 2019-07-11 13:05:00 2019-07-11 13:05:[address] [facility] [facility] [id number] [facility] 2019-06-30 14:15:00 2019-06-30 14:15:00 [facility] [id number] [facility] Results Test Description Test Time Test Comments Results Result Co mments Source CALCIUM, [id number] 00:00:00* Test Item Value Reference Range Interpretation Comme nts CALCIUM, IONIZED (test code = 76778-1) 5.35 MG/DL See_Comment [Automated messa ge] The system which generated this result transmitted reference range: 4.70-5.90 MG/DL. The reference range was not used to interpret this result as normal/abnormal. [id number] 00:00:00* Test Item Value Reference Range Interpretation Jazmyn sal FERRITIN (test code = 56084-9) 53 NG/ML See_Comment [Automated [employer] ge] The system which generated this result transmitted reference range: 13-200 NG/ML. The reference range was not used to interpret this result as normal/abnormal. ARTERY,[id number] 10:05:00 RUN DATE: 05/07/19 [place] [facility] PAGE 1 RUN TIME: 1005 Specimen Inquiry RUN USER: INTERFACE MARLO NT: SABILLONRACHEALZION SAMS LOC: ENA U #: [id number] AGE/SX: 73/F ROOM: [facility] RE05/05/19REG DR: Rohith Cruz MD : [birth year] BED: A DIS: STATUS: ADM IN TLOC: SPEC #: [id number]:[id number] RECD: 05/05/19 STATUS: DIEGO BYNUM #: [id number] GUS: 05/05/[address] [facility] [address]: Rohith Cruz MD ENTERED: 05/05/19 SP TYPE: ARTERY, PL OTHR DR: Katie Marc MD, Nioti R MD Pepper, Gregory S MDORDERED: DECAL, SURG PATH LVL 3, SURG PATH LVL 4 CODES: E94495 - PLAQUE, NOS F72579 - ARTERY, NOS [id number] - CAROTID ARTERY ATHEROSCLEROSIS [id number] - CERVIX EXCISIONAL BIOP [id number] - LYMPH NODE, NOS COPIES TO: Katie Marc MD [address] [place] [address] [address] [place] [id number] [email or web address] [address] [place] [address] [place] [address] [facility] [address] [place] [address] [place] [address] [facility] [address] [place] [address] ICD CODES: 440 - PROCEDURES: DECAL (05/06/19-904) SURG PATH LVL 3 (05/05/19-1612) SURG PATH LVL 4 (05/06/19-1325) TISSUES: A. ARTERY, NOS - LT CAROTID PLAQUE B. LYMPH NODE, NOS - LT CERVICAL LYMPH NODE CONTINUED ON NEXT PAGE RUN DATE: 05/07/19 [facility] - LAB PAGE 2 RUN TIME: 1005 Specimen Inquiry RUN USER: INTERFACE SPEC #: [id number]:[id number] PATIENT: RACHEAL SABILLON #[id number] ([facility] u) CLINICAL HISTORY LEFT INTERNAL CAROTID ARTERY STENOSIS CPT CODES CPT CODE(S): 11751 , 96365 , 50694 , , , , FINAL DIAGNOSIS A. [...] node sections with variable mild perisinusoidal and p aracortical reactive changes. No atypical features. /cm Signed David Maier 05/07/19 1005 END OF REPORT BASIC METABOLIC [id number] 04:51:00* Test Item Value Reference Range Interpretation [...] CA) 9.6 MG/DL 8.4-10.2 N BASIC METABOLIC [id number] 04:40:00* Test Item Value Reference Range Interpretation [...] code = CA) MG/DL 8.7-9.7 BASIC METABOLIC [id number] 04:38:00* Test Item Value Reference Range Interpretation [...] code = CA) MG/DL 8.7-9.7 BASIC METABOLIC [id number] 04:37:00* Test Item Value Reference Range Interpretation [...] code = CA) MG/DL 8.7-9.7 CBC W/AUTO [id number] 04:18:00* Test Item Value Reference Range Interpretation [...] 0.00 K/mm3 0.0-0.1 N - XR CHEST [id number] 09:05:00Patient Name: RACHEAL SABILLON Unit No: [id number] EXAMS: CPT CODE: [id number] XR CHEST 1V 00600Dpou ID: [id number] HISTORY: Postoperative, left ICA stenosis [...] Lety Vazquez, RT(R) Transcrpt Date/Tm/Trnsp: 05/06/2019 (904) t.MARISOLR.AJP6 Orig Print D/T: S: 05/06/2019 (907) [facility] NAME: RACHEAL SABILLON [id number] PHYS: [place] [address] : 1945 AGE: 73 SEX: F : Z.SI04 A PHONE #: [phone] EXAM DATE: 05/06/2019 STATUS: ADM IN FAX #: [phone] RADIOLOGY NO: PAGE 1 Signed Report BASIC METABOLIC [id number] 06:09:00* Test Item Value Reference Range Interpretation [...] code = CA) 9.4 MG/DL 8.4-10.2 N [id number] 06:09:00* Test Item Value Reference Range Interpretation Comme nts MAGNESIUM (test code = MAG) 1.5 MG/DL 1.6-2.3 L BASIC METABOLIC [id number] 05:59:00* Test Item Value Reference Range Interpretation [...] CALCIUM (test code = CA) MG/DL 8.7-9.7 [id number] 05:59:00* Test Item Value Reference Range Interpretation Comme nts MAGNESIUM (test code = MAG) MG/DL 1.6-2.3 CBC W/AUTO [id number] 05:46:00* Test Item Value Reference Range Interpretation [...] NRBC#) 0.00 K/mm3 0.0-0.1 N BASIC METABOLIC [id number] 13:49:00* Test Item Value Reference Range Interpretation Comme nts SODIUM (test code = NA) 136 MMOL/L 137-145 L POTASSIUM (test code = K) 2.9 MMOL/L 3.5-5.1 L CALLED TO [employer]& READBACK ON 05/05/19 AT 1348 BY Andrey [...] code = CA) 9.7 MG/DL 8.4-10.2 N [id number] 13:49:00* Test Item Value Reference Range Interpretation Comme nts MAGNESIUM (test code = MAG) 1.4 MG/DL 1.6-2.3 L BASIC METABOLIC [id number] 13:48:00* Test Item Value Reference Range Interpretation Comme nts SODIUM (test code = NA) 136 MMOL/L 137-145 L POTASSIUM (test code = K) 2.9 MMOL/L 3.5-5.1 L CALLED TO [employer]& READBACK ON 05/05/19 AT 1348 BY Andrey [...] code = CA) 9.7 MG/DL 8.4-10.2 N [id number] 13:48:00* Test Item Value Reference Range Interpretation Comme nts MAGNESIUM (test code = MAG) MG/DL 1.6-2.3 - XR CHEST [id number] 13:35:00Patient Name: RACHEAL SABILLON Unit No: [id number] EXAMS: CPT CODE: [id number] XR CHEST 1V 20356Gyztutda of dictation: B2 Portable chest one view. HISTORY: post op COMMENT: Compared to 05/04/2019. Patient has undergone left carotid endarterectomy with drain in place. A right subclavian central line overlies the SVC. The heart is slightly enlarged but stable. There are abnormal opacities in theright lower lobe likely atelectasis. No pneumothorax or effusion is seen. The chest wall is intact.IMPRESSION: 1. Status post left carotid endarterectomy. 2. Right lower lobe atelectasis. at 1335 Reported and signed by: Larissa Balderas M.D. CC: Katie Marc MD Technologist: [facility] STUDENT ; Alhaji Cha, RT(R) Transcrpt Date/Tm/Trnsp:05/05/2019 (6150) LakePXC Orig Print D/T: S: 05/05/2019 (2399) [facility] NAME: RACHEAL SABILLON [id number] PHYS: [place] [address] : 1945 AGE: 73 SEX: F LOC: Z.SI04 A PHONE #: [phone] EXAM DATE: 05/05/2019 STATUS: ADM IN FAX #: [phone] RADIOLOGY NO: PAGE 1 Signed Report CBC W/AUTO [id number] 13:20:00* Test Item Value Reference Range Interpretation [...] NRBC#) 0.00 K/mm3 0.0-0.1 N ARTERIAL BLOOD [id number] 13:17:00* Test Item Value Reference Range Interpretation [...] (test code = COHBGFFIO2) 60 % PROTHROMBIN [id number] 13:06:00* Test Item Value Reference Range Interpretation [facility] PR[facility] TIME PATIENT (test code = PTP) [...] recurrent systemic embolism. 3.0 - 4.5 PTT [id number] 13:06:00* Test Item Value Reference Range Interpretation [facility] PTT ACTIVATED (test code = APTT) 30.4 SECONDS 22.0-33.0 N HIV 12 AB [id number] 13:02:00* Test Item Value Reference Range Interpretation [facility] HIV 1 2 COMBO AG/AB SCREEN (test code = ZBZ30FRBFW) AB/AG NON REACTIVE NONREACTIVE CBC W/AUTO [id number] 12:51:00* Test Item Value Reference Range Interpretation [facility] WHITE BLOOD CELL (test code = WBC) [...] NRBC#) 0.00 K/mm3 0.0-0.1 N BASIC METABOLIC [id number] 12:21:00* Test Item Value Reference Range Interpretation [...] CA) 9.9 MG/DL 8.4-10.2 N BASIC METABOLIC [id number] 12:20:00* Test Item Value Reference Range Interpretation [...] code = CA) MG/DL 8.7-9.7 BASIC METABOLIC [id number] 12:18:00* Test Item Value Reference Range Interpretation [...] code = CA) MG/DL 8.7-9.7 BASIC METABOLIC [id number] 12:17:00* Test Item Value Reference Range Interpretation [...] CA) MG/DL 8.7-9.7 - XR CHEST 2 [id number] 11:39:00Patient Name: RACHEAL SABILLON Unit No: [id number] EXAMS: CPT CODE: [id number] XR CHEST 2 V [id number]: T18 EXAM: CHEST 2 VIEWS INDICATION: PRE-OP COMPARISON: Chest x-ray October 01, 2018 TECHNIQUE : PA and lateral chest radiographs. FINDINGS: Lungs are clear bilaterally without effusion. Heart and mediastinum are normal in size and contour. Bones and peripheral soft tissues are unremarkable. IMPRESSION: Lungs are clear. No acute abnormality. at 1139 Reported and signed by: Imani Mueller MD CC: Katie Marc MD Technologist: Jacqueline Jiménez, RT (R) Transcrpt Date/Tm/Trnsp: 05/04/2019 (1139) t.SDR.JP19 Orig Print D/T: S: 05/04/2019 (4546) [facility] NAME: RACHEAL SABILLON [id number] PHYS: [place] [address] : 1945 AGE: 73 SEX: F LOC: Z.SRG PHONE #: [phone] EXAM DATE: 05/04/2019 STATUS: PRE [facility] FAX #: [phone] RADIOLOGY NO: PAGE 1 Signed ReportBASI METABOLIC [id number] 05:09:00* Test Item Value Reference Range Interpretation [...] code = CA) 9.0 MG/DL 8.4-10.2 N [id number] 05:09:00* Test Item Value Reference Range Interpretation Comme nts MAGNESIUM (test code = MAG) 1.8 MG/DL 1.6-2.3 N CBC W/AUTO [id number] 04:46:00* Test Item Value Reference Range Interpretation [...] NRBC#) 0.00 K/mm3 0.0-0.1 N BASIC METABOLIC [id number] 06:03:00* Test Item Value Reference Range Interpretation [...] code = CA) 8.7 MG/DL 8.4-10.2 N [id number] 06:03:00* Test Item Value Reference Range Interpretation Comme nts MAGNESIUM (test code = MAG) 2.1 MG/DL 1.6-2.3 N CBC W/AUTO [id number] 05:32:00* Test Item Value Reference Range Interpretation [...] NRBC#) 0.00 K/mm3 0.0-0.1 N ARTERIAL BLOOD [id number] 12:23:00* Test Item Value Reference Range Interpretation [...] jus result: FT/NC Edited by: MOON on 10/01/18:926762 1222: DELIVERY previously reported as: FT/NC ABG TEMPERATURE (test code = TEMPA) 37.0 C >37 ABG SITE (test code = SITEA) AL ALLENS TEST (test code = ALLENS) NA CHECK FIO2 (test code = COHBGFFIO2) 40 % ARTERY,[id number] 11:58:00 RUN DATE: 10/01/18 [facility] - LAB PAGE 1 RUN TIME: 1158 Specimen Inquiry RUN USER: INTERFACE YFN T: RACHEAL SABILLON LOC: ENA U #: [id number] AGE/SX: 72/F ROOM: [facility] RE09/30/18REG DR: Rohith Cruz MD : [birth year] BED: A DIS: STATUS: ADM IN TLOC: SPEC #: [id number] RECD: 09/30/18 STATUS: DIEGO REQ #: [id number] GUS: 09/30/[address]: Rohith Cruz MD ENTERED: 09/30/18 SP TYPE: ARTERY, PL OTHR DR: Katie Marc MD, Nioti R MD Pepper, Gregory S MDORDERED: DECAL, SURG PATH LVL 3, SURG PATH LVL 4 CODES: Q29133 - PLAQUE, NOS P32827 - ARTERY, NOS U33871 V13064 -CAROTID ARTERY ATHEROSCLEROSIS D95104 [id number] - CERVIX EXCISIONAL BIOP CX0174 - LYMPH NODE, NOS COPIES TO: Katie Marc MD [address] [place] [address] [address] [place] [address] [email or web address] [address] [place] [address] [place] [address] [facility] [address] [place] [address] [place] [address] [facility] [address] [place] [address] ICD CODES: 440 - PROCEDURES: DECAL (10/01/18) SURG PATH LVL 3 (09/30/18) SURG PATH LVL 4 (09/30/18) TISSUES: A. ARTERY, NOS - RT ARTERY PLAQUE B. LYMPH NODE, NOS - RT CERVICAL LYMPH NODE CONTINUED ON NEXT PAGE RUN DATE: 10/01/18 [place] [facility] PAGE 2 RUN TIME: 1158 Specimen Inquiry RUN USER: INTERFACE SPEC #: [id number] PATIENT: RACHEAL SABILLON #[id number] ([facility] ued) CLINICAL HISTORY RIGHT INTERNAL CAROTID ARTERY STENOSIS CPT CODES CPT CODE(S): 32807 , 67995 , 32139 , , , , FINAL DIAGNOSIS A. [...] node (1.3 x 1 x 0.7 cm), sectionedand entirely submitted as B1. /tc/hazel MICROSCOPIC DESCRIPTION A. Right carotid plaque. Nodular atheromatous plaque with dense calcification and stromal sclerosis. No atypia. No malignancy. B. Right cervical lymph node. Benign lymph node with minimal hyperplastic deviation (reactive change). No atypia. No malignancy. /cm Signed SIGNATURE ON FILE David Maier 10/01/18 1158 END OF REPORT - XR CHEST [id number] 07:45:00Patient Name: RACHEAL SABILLON Unit No: [id number] EXAMS: CPT CODE: [id number] XR CHEST 1V [id number]: - XR CHEST 1V. LOCATION: B2. HISTORY: [...] Reported and signed by:Kayode Juarez MD CC: Katie Marc MD; Brisa GARCIA Technologist: Jeffrey High, RT(R) Transcrpt Date/Tm/Trnsp: 10/01/2018 (2693) t.SDR.PR7 Orig Print D/T: S: 10/01/2018 (0748) [facility] NAME: RACHEAL SABILLON [id number] PHYS: [place] [address] :1945 AGE: 72 SEX: F LOC: Z.SI07 A PHONE #: [phone] EXAM DATE: 10/01/2018 STATUS: ADM IN FAX #: [phone] RADIOLOGY NO: PAGE 1 Signed ReportBASIC METABOLIC [id number] 05:58:00* Test Item Value Reference Range Interpretation [...] code = CA) 8.7 MG/DL 8.4-10.2 N [id number] 05:58:00* Test Item Value Reference Range Interpretation Comme nts MAGNESIUM (test code = MAG) 1.7 MG/DL 1.6-2.3 N CBC W/AUTO [id number] 05:30:00* Test Item Value Reference Range Interpretation [...] code = NRBC#) 0.00 K/mm3 0.0-0.1 N [id number] 22:38:00* Test Item Value Reference Range Interpretation Comme nts POTASSIUM (test code = K) 3.3 MMOL/L 3.5-5.1 L [id number] 22:38:00* Test Item Value Reference Range Interpretation Comme nts MAGNESIUM (test code = MAG) 1.7 MG/DL 1.6-2.3 ARTERIAL BLOOD [id number] 17:57:00* Test Item Value Reference Range Interpretation [...] code = COHBGFFIO2) 40 % BASIC METABOLIC [id number] 16:18:00* Test Item Value Reference Range Interpretation [...] code = CA) 8.9 MG/DL 8.4-10.2 N [id number] 16:18:00* Test Item Value Reference Range Interpretation Comme nts MAGNESIUM (test code = MAG) 1.3 MG/DL 1.6-2.3 L CBC W/AUTO [id number] 16:06:00* Test Item Value Reference Range Interpretation [...] 0.00 K/mm3 0.0-0.1 N - XR CHEST [id number] 15:29:00Patient Name: RACHEAL SABILLON Unit No: [id number] EXAMS: CPT CODE: [id number] XR CHEST 1V [id number]: CHEST ONE VIEW INDICATION: Postop LOCATION: B2 [...] CC: Katie Marc MD; Brisa GARCIA Technologist: RT Adam(R) Transcrpt Date/Tm/Trnsp: 09/30/2018 (8839) LakeMD16 Orig Print D/T: S: 09/30/2018 (9267) [facility] NAME: RACHEAL SABILLON [id number] PHYS: [place] [address] : 1945 AGE: 72 SEX: F LOC: Z.SI07 A PHONE #: [phone] EXAM DATE: 09/30/2018 STATUS: ADM IN FAX #: [phone] RADIOLOGY NO: PAGE 1 Signed ReportHIV 12 AB [id number] 19:14:00* Test Item Value Reference Range Interpretation Comme nts AB HIV 1 2 (test code = YDW69ET) NON REACTIVE NON-REAC NOTE: A NONREACT LINETTE RESULT INDICATES THAT HIV-1 AND HIV-2ANTIBODIES HAVE NOT BEEN FOUND IN THIS PATIENT SPECIMEN. ANON-REACTIVE RESULT, HOWEVER, DOES NOT PRECLUDE PREVIOUSEXPOSURE OR INFECTION WITH HIV1. AG HIV1 P24 (test code = JVP3A41) NON REACTIVE NONE REAC PROTHROMBIN [id number] 14:22:00* Test Item Value Reference Range Interpretation [...] recurrent systemic embolism. 3.0 - 4.5 PTT [id number] 14:22:00* Test Item Value Reference Range Interpretation Comme nts PTT ACTIVATED (test code = APTT) 29.3 SECONDS 22.0-33.0 N BASIC METABOLIC [id number] 14:18:00* Test Item Value Reference Range Interpretation [...] MG/DL 8.4-10.2 N - XR CHEST 2 [id number] 14:14:00Patient Name: RACHEAL SABILLON Unit No: [id number] EXAMS: CPT CODE: [id number] XR CHEST 2 V 20734 EXAM: CHEST 2 VIEWS INDICATION: PRE-OP LOCATION: [...] Technologist: Gay Wolfe, RT(R) Transcrpt Date/Tm/Trnsp: 09/29/2018 (9324) t.16 Orig Print D/T: S: 09/29/2018 (3153) [facility] NAME: RACHEAL SABILLON [id number] PHYS: [place] [address] : 1945 AGE: 72 SEX: F LOC: [id number] PHONE #: [phone] EXAM DATE: 09/29/2018 STATUS: PRE IN FAX #: [phone] RADIOLOGY NO: PAGE 1 Signed ReportCBC W/AUTO [id number] 13:57:00* Test Item Value Reference Range Interpretation [...] NRBC#) 0.00 K/mm3 0.0-0.1 N BASIC METABOLIC [id number] 06:04:00* Test Item Value Reference Range Interpretation [...] mg/dL HIGH.........160-189 mg/dL VERY HIGH.........>/= 190 mg/dL [id number] 06:04:00* Test Item Value Reference Range Interpretation Comme nts MAGNESIUM (test code = MAG) 1.9 MG/DL 1.6-2.3 N PROTHROMBIN [id number] 06:00:00* Test Item Value Reference Range Interpretation [...] systemic embolism. 3.0 - 4.5 Comments to Cnc Cutting Operator: WILL BRING TO LABPTT [id number] 06:00:00* Test Item Value Reference Range Interpretation Comme nts PTT ACTIVATED (test code = APTT) 29.3 SECONDS 22.0-33.0 N Comments to Cnc Cutting Operator: WILL BRING TO LABBASIC METABOLIC [id number] 05:54:00* Test Item Value Reference Range Interpretation [...] LDL (test code = LDL) MG/DL 0-99 [id number] 05:54:00* Test Item Value Reference Range Interpretation Comme nts MAGNESIUM (test code = MAG) 1.9 MG/DL 1.6-2.3 N CBC W/AUTO [id number] 05:41:00* Test Item Value Reference Range Interpretation [...]
[2024-04-17] MEDS ORDERED: NA CHLORIDE 0.9% 500 ML ONE (17:07)
[2024-04-17] MEDS ORDERED: ALBUTEROL 2.5 MG/3 ML NEB SOL ONE (17:34)
[2024-04-17 17:35] LABS: Absolute Eosinophils 0.3 K/uL (0-0.5); Absolute Lymphocytes (CBC) 1.1 K/uL (0.7-4.9); Absolute Monocytes 0.9 K/uL (0.1-1.3); Absolute Neutrophil 3.6 K/uL (1.8-8.0); Basophils % 0.7 % (0-1.3); Eosinophils % 4.5 % (0-4.4); Hemoglobin 11.9 g/dL (12.0-15.0); MCH 34.3 pg (27.0-35.0); MCV 100.9 fL (80-100); MPV 6.3 fL (7.6-11.3); Monocytes % 15.5 % (3.3-12.3); Neutrophils % 61.3 % (41.7-73.7); Nucleated Red Blood Cells % 0.1 % (0-0); Platelets 373 thou/uL (152-406); RBC Red Blood Cell Count 3.47 M/uL (3.86-4.86); Red Cell Distribution Width 14.2 % (12.1-15.2)
[2024-04-17 17:55] LABS: ALT/SGPT 23 U/L (13-56); AST/SGOT 23 U/L (15-37); Albumin 3.2 g/dL (3.4-5.0); Albumin/Globulin Ratio 0.7 (1.1-1.8); Alkaline Phosphatase 114 U/L (45-117); Anion Gap 12.2 mEq/L (5.0-15.0); BUN Blood Urea Nitrogen 32 mg/dL (7-18); Bicarbonate 27 mEq/L (21-32); Bilirubin Total 0.3 mg/dL (0.2-1.0); Globulin 4.8 g/dL (2.3-3.5); Glomerular Filtration Rate 40 ml/min (=/>90); Glucose Level 75 mg/dL (74-106); Magnesium 1.6 mg/dL (1.6-2.4); NT PRO-BNP 102 pg/mL (<450); Potassium 5.2 mEq/L (3.5-5.1); Sodium Level 124 mEq/L (136-145); Troponin High Sensitivity 16.7 pg/mL (<58.9)
[2024-04-17 17:56] LABS: Bilirubin Direct < 0.2 mg/dL (0-0.2); Bilirubin Indirect, Calculated 0.1 mg/dL (0.2-0.8)
--- NOTE | 2024-04-17 17:56 | RAD REPORT ---
Procedure: Chest Single View HISTORY: Cough COMPARISON: February 2024 FINDINGS: Mild bibasilar lung opacities probably atelectasis. No significant pleural effusion noted. The heart is mildly enlarged. The aorta is tortuous/ectatic IMPRESSION: No acute abnormality is displayed.
[2024-04-17] MEDS ORDERED: SOD POLYSTYREN SUL 15 GM/60 ML UCUP ONE (18:05)
--- NOTE | 2024-04-17 18:09 | RAD REPORT ---
EXAMINATION: [facility] Protocol CLINICAL INDICATION: Abdominal pain flank pain TECHNIQUE: CT abdomen and pelvis was performed, without IV contrast, as per department protocol. Oral contrast not given. Axial, sagittal and coronal reconstructions were obtained. One or more of the following dose reduction techniques were used: Automated exposure control, adjustment of the mA and k V according to the patient size, and iterative reconstruction. Unless otherwise specified, incidental findings do not require dedicated imaging follow-up. COMPARISON: 2019 FINDINGS: The lack of intravenous and oral contrast limits the sensitivity of this exam for evaluation of solid visceral organs, vascular structures, and bowel Mild opacities lingula and right middle lobe may represent areas of atelectasis or inflammation. A renal calculus not seen. No ureteral calculus. A bladder calculus not noted. Mild left hydronephros is is present. Proximal left ureter is dilated with an abrupt transition. No right hydronephrosis. Liver, spleen, pancreas and adrenals grossly normal No evidence of diverticulitis.. Normal appendix. No adnexal mass IMPRESSION: Mild left hydronephrosis and mild left proximal hydroureter. This is unchanged from the prior exam. T his could be secondary to a stricture or crossing vessel. If clinically indicated a nuclear medicine renal scan could be obtained.
[2024-04-17 18:16] LABS: PT Prothrombin Time 11.9 SECONDS (9.4-12.5); Protime INR 1.06
--- NOTE | 2024-04-17 18:40 | EDPHYS ---
Physician Documentation [facility] Name: Racheal Dia Age: 78 yrs Sex: Female : 1945 Arrival Date: 04/17/2024 Time: 16:33 Bed 13 Private MD: LALIT Physician Jaret Swift HPI: 04/17 16:59 This 78 yrs old Black Female presents to ER via Unassigned with complaints of Abnormal jaret Lab Results. 16:59 abnormal labs from the outside. Onset: The symptoms/episode began/occurred 2 day(s) jaret ago. Severity of symptoms: At their worst the symptoms were mild moderate in the emergency department the symptoms are unchanged. The patient has not experienced similar symptoms in the past. Historical: - Allergies: 17:05 No Known Allergies; db - PMHx: 17:05 CHF; Hypercholesterolemia; Hypertension; Hypertensive disorder; db - PSHx: 17:05 Heart Stents; Splenectomy; db - Immunization history:: Adult Immunizations unknown. - Infectious Disease History:: Denies. - Family history:: not pertinent. - Social history:: Smoking status: Patient/guardian denies using tobacco, but has a distant history of tobacco abuse. ROS: 17:00 Constitutional: Negative for fever, chills, and weight loss, Eyes: Negative for injury, jaret pain, redness, and discharge, ENT: Negative for injury, pain, and discharge, Neck: Negative for injury, pain, and swelling, Cardiovascular: Negative for chest pain, palpitations, and edema, Respiratory: Negative for shortness of breath, cough, wheezing, and pleuritic chest pain, Abdomen/GI: Negative for abdominal pain, nausea, vomiting, diarrhea, and constipation, Back: Negative for injury and pain, : Negative for injury, bleeding, discharge, and swelling, MS/Extremity: Negative for injury and deformity, Neuro: Negative for headache, weakness, numbness, tingling, and seizure, Psych: Negative for depression, anxiety, suicide ideation, homicidal ideation, and hallucinations, Allergy/Immunology: Negative for hives, rash, and allergies, Endocrine: Negative for neck swelling, polydipsia, polyuria, polyphagia, and marked weight changes, Hematologic/Lymphatic: Negative for swollen nodes, abnormal bleeding, and unusual bruising, 17:00 Skin: Positive for pallor, Exam: 17:00 Constitutional: This is a well developed, well nourished patient who is awake, alert, jaret and in no acute distress. Head/Face: Normocephalic, atraumatic. Eyes: Pupils equal round and reactive to light, extra-ocular motions intact. Lids and lashes normal. Conjunctiva and sclera are non-icteric and not injected. Cornea within normal limits. Periorbital areas with no swelling, redness, or edema. ENT: Nares patent. No nasal discharge, no septal abnormalities noted. Tympanic membranes are normal and external auditory canals are clear. Oropharynx with no redness, swelling, or masses, exudates, or evidence of obstruction, uvula midline. Mucous membranes moist. Neck: Trachea midline, no thyromegaly or masses palpated, and no cervical lymphadenopathy. Supple, full range of motion without nuchal rigidity, or vertebral point tenderness. No Meningismus. Chest/axilla: Normal chest wall appearance and motion. Nontender with no deformity. No lesions are appreciated. Cardiovascular: Regular rate and rhythm with a normal S1 and S2. No gallops, murmurs, or rubs. Normal PMI, no JVD. No pulse deficits. Respiratory: Lungs have equal breath sounds bilaterally, clear to auscultation and percussion. No rales, rhonchi or wheezes noted. No increased work of breathing, no retractions or nasal flaring. Abdomen/GI: Soft, non-tender, with normal bowel sounds. No distension or tympany. No guarding or rebound. No evidence of tenderness throughout. Back: No spinal tenderness. No costovertebral tenderness. Full range of motion. MS/ Extremity: Pulses equal, no cyanosis. Neurovascular intact. Full, normal range of motion., bilateral aka Neuro: Awake and alert, GCS 15, oriented to person, place, time, and situation. Cranial nerves II-XII grossly intact. Motor strength 5/5 in all extremities. Sensory grossly intact. Cerebellar exam normal. Normal gait. Psych: Awake, alert, with orientation to person, place and time. Behavior, mood, and affect are within normal limits. 17:00 ECG was reviewed by the Attending Physician. 17:00 Musculoskeletal/extremity: Circulation is intact in all extremities. Sensation intact. Compartment Syndrome exam of affected extremity: is normal. DVT Exam: No signs of deep vein thrombosis. no pain, no swelling, no tenderness, negative Homans' sign noted on exam, no appreciated bluish discoloration, no erythema, no increased warmth, 17:00 Skin: Appearance: Color: pale, 17:18 ECG was reviewed by the Attending Physician. [facility] Vital Signs: 17:03 BP 168 / 100; Pulse 75; Resp 18; Temp 98.3(O); Pulse Ox 94% ; Weight 63.5 kg; Height 5 db ft. 1 in. ; 19:30 BP 152 / 124; Pulse 71; Resp 20; Pulse Ox 94% on R/A; kj2 20:07 BP 163 / 97; Pulse 71; Resp 20; Pulse Ox 96% on R/A; kj2 17:03 Body Mass Index 26.45 (63.50 kg, 154.94 cm) db [place] Coma Score: 17:00 Eye Response: spontaneous(4). Motor Response: obeys commands(6). Verbal Response: [facility] oriented(5). Total: 15. MDM: 16:58 Medical Screening Exam initiated jaret 17:02 Differential Diagnosis altered mental status, sepsis, flu. Data reviewed: vital signs, [facility] nurses notes, lab test result(s), EKG, radiologic studies, plain films. Consideration of Admission/Observation Escalation of care including admission/observation considered. I considered the following discharge prescriptions or medication management in the emergency department Medications were administered in the Emergency Department. See MAR. Independent interpretation of the following test(s) in the Emergency Department EKG: See my EKG interpretation above. Test considered but Not performed: CT: no ct. Care significantly affected by the following chronic conditions: Hypertension, Obesity. 04/17 16:58 Order name: Basic Metabolic Panel; Complete Time: 18:35 [facility] 04/17 16:58 Order name: CBC with Diff; Complete Time: 17:56 [facility] 04/17 16:58 Order name: LFT's; Complete Time: 18:35 [facility] 04/17 16:58 Order name: Magnesium; Complete Time: 18:35 [facility] 04/17 16:58 Order name: NT PRO-BNP; Complete Time: 18:35 [facility] 04/17 16:58 Order name: PT-INR; Complete Time: 18:35 [facility] 04/17 16:58 Order name: Troponin HS; Complete Time: 18:35 [facility] 04/17 18:36 Order name: Urine Osmolality [facility] 04/17 18:36 Order name: Urine Sodium Random [facility] 04/17 18:36 Order name: Osmolality, Serum [facility] 04/17 18:50 Order name: Magnesium [facility] 04/17 18:50 Order name: Phosphorus [facility] 04/17 18:50 Order name: Urinalysis w/ reflexes [facility] 04/17 18:50 Order name: Basic Metabolic Panel [facility] 04/17 18:50 Order name: Basic Metabolic Panel [facility] 04/17 18:50 Order name: CBC with Automated Diff [facility] 04/17 18:50 Order name: CBC with Automated Diff [facility] 04/17 18:54 Order name: Basic Metabolic Panel [facility] 04/17 18:54 Order name: Basic Metabolic Panel [facility] 04/17 18:54 Order name: Basic Metabolic Panel [facility] 04/17 18:54 Order name: Basic Metabolic Panel [facility] 04/17 18:54 Order name: Basic Metabolic Panel [facility] 04/17 21:29 Order name: Glucose, Ancillary Testing [facility] 04/17 16:58 Order name: XRAY Chest (1 view); Complete Time: 18:35 [facility] 04/17 17:17 Order name: CT Stone Protocol; Complete Time: 18:35 [facility] 04/17 16:58 Order name: Cardiac monitoring; Complete Time: 17:30 [facility] 04/17 16:58 Order name: EKG - Nurse/Tech; Complete Time: 17:30 [facility] 04/17 16:58 Order name: IV Saline Lock; Complete Time: 17:30 [facility] 04/17 16:58 Order name: Labs collected and sent; Complete Time: 17:30 [facility] 04/17 16:58 Order name: O2 Per Protocol; Complete Time: 17:06 [facility] 04/17 16:58 Order name: O2 Sat Monitoring; Complete Time: 17:06 [facility] 04/17 17:39 Order name: Labs - recollect needed: RECOLLECT BLUE TOP/ HEMOLYZED; Complete Time: 18:05eb EC:18 Rate is 61 beats/min. Rhythm is regular. QRS [place] is Normal. MS interval is normal. QRS jaret interval is normal. QT interval is normal. No Q waves. T waves are Peaked. No ST changes noted. Clinical impression: Suggests hyperkalemia. Interpreted by me. Reviewed by me. Administered Medications: 18:02 Drug: Albuterol Inhalation 2.5 mg Inhalation once Route: Inhalation; kc6 19:40 Follow up: Response: No adverse reaction kj2 18:11 Drug: NS 0.9% IV 500 ml 500 ml IV at 1 bolus once; to be given as a bolus over 30 kc6 minutes Volume: 500 ml; Route: IV; Rate: 1 bolus; Site: right hand; 18:11 Drug: Kayexalate PO 30 grams PO once Route: PO; kc6 19:40 Follow up: Response: No adverse reaction kj2 19:15 Drug: NS 0.9% IV 1000 ml IV at 75 ml/hr once; to be given as a bolus over 60 minutes kj2 Route: IV; Rate: 75 ml/hr; Site: right hand; 21:17 Follow up: IV Status: Infusion continued upon admission kj2 19:15 Drug: Magnesium Sulfate IVPB 2 grams IVPB once over 2 hrs Route: IVPB; Infused Over: 2 kj2 hrs; Site: right hand; 21:17 Follow up: IV Status: Infusion continued upon admission kj2 Disposition Summary: 04/17/24 18:39 Hospitalization Ordered Notes: Hospitalization Status: Inpatient Admission jaret Provider: Prince jaret Sheriff Location: Telemetry/MedSurg (Inpatient) jaret Condition: Fair jaret Problem: new jaret Symptoms: have improved jaret Bed/Room Type: Standard jaret Room Assignment: 230(04/17/24 19:49) vk Diagnosis - Hypo-osmolality and hyponatremia jaret - Hyperkalemia jaret Forms: - Medication Reconciliation Form jaret - SBAR form jaret - Leadership Thank You Letter jaret Signatures: Dispatcher [employer] EDJaret Reyes MD MD cha Botello, Elizabeth eb Campbell, Kaitlyn RN RN kc6 Dona Tran RN RN Trixie Andrews Krystal, RN RN kj2 Corrections: (The following items were deleted from the chart) 16:59 16:59 BASIC METABOLIC PANEL+C.LAB.BRZ ordered. EDMS EDMS 16:59 16:59 CBC+H.LAB.BRZ ordered. EDMS EDMS 16:59 16:59 HEPATIC FUNCTION+C.LAB.BRZ ordered. EDMS EDMS 16:59 16:59 MAGNESIUM+C.LAB.BRZ ordered. EDMS EDMS 16:59 16:59 PROBNP+C.LAB.BRZ ordered. EDMS EDMS 16:59 16:59 PROTIME (+INR)+COAG.LAB.BRZ ordered. EDMS EDMS 1659 16:59 Troponin High Sensitivity+C.LAB.BRZ ordered. EDMS EDMS 1659 16:59 Chest Single View+RAD.RAD.BRZ ordered. EDMS EDMS 19:49 18:39 jaret vk
--- NOTE | 2024-04-17 18:40 | ER ---
Nurse's Notes [facility] Name: Racheal Dia Age: 78 yrs Sex: Female : 1945 Arrival Date: 04/17/2024 Time: 16:33 Bed 13 Private MD: Diagnosis: Hypo-osmolality and hyponatremia;Hyperkalemia Presentation: 04/17 17:03 Chief complaint: Patient states: SENT BY PCP FOR ABNORMAL LAB RESULTS DRAWN YESTERDAY. db UNSURE WHAT LAB. DENIES ANY COMPLAINTS TODAY. Coronavirus screen: Client denies travel out of the [place] in the last 14 days. At this time, the client does not indicate any symptoms associated with coronavirus-19. Ebola Screen: Patient negative for fever greater than or equal to 101.5 degrees Fahrenheit, and additional compatible Ebola Virus Disease symptoms Patient denies exposure to infectious person. Patient denies travel to an Ebola-affected area in the 21 days before illness onset. No symptoms or risks identified at this time. Initial Sepsis Screen: Does the patient meet any 2 criteria? No. Patient's initial sepsis screen is negative. Does the patient have a suspected source of infection? No. Patient's initial sepsis screen is negative. Risk Assessment: Do you want to hurt yourself or someone else? Patient reports no desire to harm self or others. Onset of symptoms was April 17, 2024. 17:03 Method Of Arrival: Ambulatory db 17:03 Acuity: AISHA 3 db Triage Assessment: 17:05 General: Appears in no apparent distress. comfortable, Behavior is calm, cooperative. db Pain: Denies pain. Neuro: Level of Consciousness is awake, alert, obeys commands, Oriented to person, place, time, situation. Respiratory: Airway is patent Respiratory effort is even, unlabored, Respiratory pattern is regular, symmetrical. Historical: - Allergies: 17:05 No Known Allergies; db - PMHx: 17:05 CHF; Hypercholesterolemia; Hypertension; Hypertensive disorder; db - PSHx: 17:05 Heart Stents; Splenectomy; db - Immunization history:: Adult Immunizations unknown. - Infectious Disease History:: Denies. - Family history:: not pertinent. - Social history:: Smoking status: Patient/guardian denies using tobacco, but has a distant history of tobacco abuse. Screenin:31 [facility] ED Fall Risk Assessment (Adult) History of falling in the last 3 months, kc6 including since admission No falls in past 3 months (0 pts) Confusion or Disorientation No (0 pts) Intoxicated or Sedated No (0 pts) Impaired Gait No (0 pts) Mobility Assist Device Used No (0 pt) Altered Elimination No (0 pt) Score/Fall Risk Level 0 - 2 = Low Risk Oriented to surroundings, Maintained a safe environment. Abuse screen: Denies threats or abuse. Denies injuries from another. Nutritional screening: No deficits noted. Tuberculosis screening: No symptoms or risk factors identified. Assessment: 19:00 Reassessment: Patient appears in no apparent distress at this time. Patient and/or kj2 family updated on plan of care and expected duration. Pain level reassessed. Patient is alert, oriented x 3, equal unlabored respirations, skin warm/dry/pink. 19:30 Reassessment: patient states her blood pressure is usually not that high. RN will kj2 reassess w. Vital Signs: 17:03 BP 168 / 100; Pulse 75; Resp 18; Temp 98.3(O); Pulse Ox 94% ; Weight 63.5 kg; Height 5 db ft. 1 in. ; 19:30 BP 152 / 124; Pulse 71; Resp 20; Pulse Ox 94% on R/A; kj2 20:07 BP 163 / 97; Pulse 71; Resp 20; Pulse Ox 96% on R/A; kj2 17:03 Body Mass Index 26.45 (63.50 kg, 154.94 cm) db [place] Coma Score: 17:00 Eye Response: spontaneous(4). Motor Response: obeys commands(6). Verbal Response: jaret oriented(5). Total: 15. ED Course: 16:39 Patient arrived in ED. ra3 16:52 Jaret Swift MD is Attending Physician. jaret 17:01 Dania Baker, ZANE is Primary Nurse. kc6 17:04 Triage completed. db 17:05 Arm band placed on Patient placed in an exam room. db 17:30 Patient has correct armband on for positive identification. Bed in low position. Call kc6 light in reach. Side rails up X 1. Adult w/ patient. monitoring engineer on. Pulse ox on. NIBP on. 17:30 Inserted saline lock: 24 gauge in right hand, using aseptic technique. Blood collected. kc6 Flushed with 10 mL NS. Patient maintains SpO2 saturation greater than 95% on room air. 17:39 XRAY Chest (1 view) In Process Unspecified. EDMS 17:42 CT Stone Protocol In Process Unspecified. EDMS 18:38 Prince Sheriff MD is Hospitalizing Provider. [facility] 19:00 Report received from ZANE Najera. kj2 19:15 Provided Education on: call light. kj2 19:42 No provider procedures requiring assistance completed. kj2 20:26 Initial lab(s) drawn, by me, sent to lab. 21:16 Patient admitted, IV remains in place. kj2 Administered Medications: 18:02 Drug: Albuterol Inhalation 2.5 mg Inhalation once Route: Inhalation; kc6 19:40 Follow up: Response: No adverse reaction kj2 18:11 Drug: NS 0.9% IV 500 ml 500 ml IV at 1 bolus once; to be given as a bolus over 30 kc6 minutes Volume: 500 ml; Route: IV; Rate: 1 bolus; Site: right hand; 18:11 Drug: Kayexalate PO 30 grams PO once Route: PO; kc6 19:40 Follow up: Response: No adverse reaction kj2 19:15 Drug: NS 0.9% IV 1000 ml IV at 75 ml/hr once; to be given as a bolus over 60 minutes kj2 Route: IV; Rate: 75 ml/hr; Site: right hand; 21:17 Follow up: IV Status: Infusion continued upon admission kj2 19:15 Drug: Magnesium Sulfate IVPB 2 grams IVPB once over 2 hrs Route: IVPB; Infused Over: 2 kj2 hrs; Site: right hand; 21:17 Follow up: IV Status: Infusion continued upon admission kj2 Medication: 19:42 VIS not applicable for this client. kj2 Outcome: 18:39 Decision to Hospitalize by Provider. jaret 21:16 Admitted to Med/surg accompanied by tech, room 230, kj2 21:16 Condition: stable 21:16 Instructed on the need for admit, 22:06 Patient left the ED. kj2 Signatures: Dispatcher [employer] EDJaret Reyes MD MD cha Campbell, Kaitlyn, RN RN kc6 Dona Tran RN RN db Alva, Ruby ra3 Allegra Navas RN RN kj2 Ana Rosa Porter hw
[2024-04-17] MEDS ORDERED: ONDANSETRON 4 MG/2 ML VIAL IV PRN (18:45)
[2024-04-17] MEDS ORDERED: NA CHLORIDE 0.9% 1,000 ML ONE (19:17)
[2024-04-17] MEDS ORDERED: Magnesium Sulfate 2gm IVPB 2 G/50 ML BAG IV ONE (19:17)
--- NOTE | 2024-04-17 19:21 | P.HP ---
Certification for Inpatient Patient admitted to: Observation With expected LOS: <2 Midnights Practitioner: I am a practitioner with admitting privileges, knowledge of patient current condition, hospital course, and medical plan of care. Services: Services provided to patient in accordance with Admission requirements found in Title 42 Section 412.3 of the Code of Federal Regulations Patient History Date of Service: 04/17/24 Reason for admission: hyperkalemia, hyponatremia History of Present Illness: Patient is a 78 year old female with grade II diastolic CHF, HTN and HLD. She presents accompanied by family for abnormal outpatient labs. Patient recently had routine outpatient labs which revealed elevated K+ and low Na+. She is on lasix and spironolactone. She was instructed to present to ER for further evaluation. Patient is not particularly symptomatic. Work up in the ER showed a K+ of 5.7 and Na+ of 124. She received kayexalate and NS bolus. Dur ing my evaluation, she was alert and awake. Brother and sister in law at bedside. Patient answered questions appropriately. Her mental status appeared to be at baseline. No focal neurologic deficits. A comprehensive ROS was conducted, ROS unremarkable. Allergies No Known Allergies Allergy (Verified 06/17/19 16:51) Home Medications: Aspirin Chewable [Aspirin Chewable*] 1 tab PO DAILY 06/17/19 Atorvastatin Calcium 40 mg PO DAILY 06/17/19 Clopidogrel Bisulfate [Plavix*] 75 mg PO DAILY 06/17/19 Docusate [Colace Cap*] 100 mg PO BID cap 06/21/19 Levothyroxine [Synthroid*] 1 tab PO DAILY 09/28/20 Metoprolol Tartrate 50 mg PO DAILY 09/28/20 Amlodipine [Norvasc*] 5 mg PO DAILY 06/11/23 Losartan Potassium [Cozaar] 25 mg PO DAILY 06/11/23 Polyethyl Gly 3350 [Glycolax*] 17 gm PO PRN PRN 06/11/23 Albuterol Neb [Proventil 0.083% Neb Soln] 2.5 mg NEB Q8H #60 amp 06/12/23 Azithromycin Tab [Zithromax*] 250 mg PO DAILY #4 tab 06/12/23 Cefdinir [Cefdinir*] 300 mg PO BID #20 cap 06/12/23 Fluticasone/Umeclidin/Vilanter [Trelegy Ellipta 200-62.5-25] 1 each IH BID #1 inh 06/12/23 Guaifen W/Codeine Syrup [ROBITUSSIN A-C Syrup*] 10 ml PO Q12HP PRN #150 ml 06/12/23 Nebulizer 1 each NEB DAILY #1 ea 06/12/23 Nebulizer Accessories [Aeroneb Go] 1 each NEB DAILY #1 kit 06/12/23 predniSONE [Prednisone*] 20 mg PO BID #20 tab 06/12/23 Arformoterol Tartrate [Brovana] 15 mcg NEB BIDRESP #60 vial.neb 09/12/23 Furosemide [Lasix] 20 mg PO DAILY #30 tab 09/12/23 Ipratropium Neb [Atrovent*] 0.5 mg NEB [id number] PRN #60 amp 09/12/23 Spironolactone [Aldactone*] 25 mg PO DAILY #30 tab 09/12/23 - Past Medical/Surgical History Diabetic: No -: CHF -: HTN -: Hypothyroidism -: CAD -: HLD -: syphilis -: Splenectomy -: PTCA 2014 -: endarterectomy with stents Psychosocial/ Personal History: Sexual history: -patient states she was last sexually active about 3 years ago-reports 1 partner, her . Does state that her had multiple sexual partners and she is unaware of how many sexual partners he had or if he was ever diagnosed or showed symptoms of any sexually transmitted diseases. -patient reports a total of 3 sexual partners within her lifetime. -patient has 2 children, 1st with no complications or no signs of congenital syphilis. -patient states that she did not always use protection with her sexual partners. -patient denies ever being diagnosed with any other sexually transmitted diseases such as gonorrhea chlamydia. -patient has never been tested for HIV or any other sexually transmitted diseases. - Family History Mother -: Hypertension, Cancer Notes: Jaw cancer Father -: Hypertension - Social History Alcohol use: Yes CD- Drugs: No Caffeine use: Yes Physical Examination - Physical Exam General: In no apparent distress, Cooperative HEENT: Atraumatic, Normocephalic Respiratory: Clear to auscultation bilaterally, Normal air movement Cardiovascular: No edema, Normal pulses, Regular rate/rhythm, Normal S1 S2, Systolic murmur Integumentary: No rashes, No breakdown, No significant lesion, No tenderness/swelling, No erythema, No warmth, No cyanosis Neurological: Normal speech - Studies Laboratory Data (last 24 hrs) 04/17/24 04/17/24 04/17/24 18:06 17:28 17:28 WBC 5.90 Hgb 11.9 L Hct 35.0 L Plt Count 373 PT 11.9 INR 1.06 Sodium 124 L Potassium 5.2 H BUN 32 H Creatinine 1.35 H Glucose 75 Magnesium 1.6 Total Bilirubin 0.3 AST 23 ALT 23 Alkaline Phosphatase 114 Assessment and Plan - Problems (Diagnosis) (1) Grade II diastolic dysfunction Current Visit: Yes Status: Acute (2) Hyponatremia Current Visit: Yes Status: Acute (3) Hyperkalemia Current Visit: Yes Status: Acute (4) CAD (coronary artery disease) Current Visit: No Status: Chronic Qualifiers: (5) HLD (hyperlipidemia) Current Visit: No Status: Chronic Qualifiers: (6) HTN (hypertension) Current Visit: No Status: Chronic (7) Hypothyroidism Current Visit: No Status: Chronic Qualifiers: (8) Thoracic aortic aneurysm Current Visit: No Status: Chronic - Plan Assessment Patient is a 78 year old female who is being admitted having having abnormal labs on routine outpatient blood work. Work in the ER show a K+ of 5.7, Na+ 124. Patient is asymptomatic. She is on lasix and spironolactone. Hyperkalemia Hyponatremia Grade II diastolic CHF HTN HLD Mild aortic stenosis PLAN: Will admit under observation with telemetry Fluid restriction BMP q 4 HOURS She received a dose of Kayexalate in the ER Hold spironolactone for now Resume rest of home medications upon reconciliation - Advance Directives Does patient have a Living Will: No Does patient have a Durable POA for Healthcare: No
[2024-04-17] MEDS: HYDRALAZINE HCL 20 MG/ML VIAL IV PRN (21:28)
[2024-04-17 21:56] VITALS: BMI 25.7
[2024-04-17] MEDS: METOPROLOL TAR 50 MG TAB PO SCH (22:23)
[2024-04-17 22:28] VITALS: O2SAT 96
[2024-04-17 23:02] LABS: Anion Gap 11.2 mEq/L (5.0-15.0); Magnesium 1.8 mg/dL (1.6-2.4); Phosphorus 2.7 mg/dL (2.5-4.9); Potassium 4.2 mEq/L (3.5-5.1)
[2024-04-18] MEDS: HEPARIN 5000 UNIT/ML 1 ML VIAL SQ SCH (01:35)
[2024-04-18 02:17] LABS: Anion Gap 11.3 mEq/L (5.0-15.0); Potassium 4.3 mEq/L (3.5-5.1)
[2024-04-18 07:20] LABS: Absolute Eosinophils 0.3 K/uL (0-0.5); Absolute Lymphocytes (CBC) 1.1 K/uL (0.7-4.9); Absolute Neutrophil 3.7 K/uL (1.8-8.0); Basophils % 0.5 % (0-1.3); Eosinophils % 4.3 % (0-4.4); Hematocrit 34.3 % (36.0-45.0); Hemoglobin 11.5 g/dL (12.0-15.0); Lymphocytes % 17.8 % (15.3-44.8); MCH 33.8 pg (27.0-35.0); MCHC 33.5 g/dL (32.0-36.0); MCV 100.7 fL (80-100); MPV 6.3 fL (7.6-11.3); Neutrophils % 61.4 % (41.7-73.7); Nucleated Red Blood Cells % 0.1 % (0-0); Platelets 346 thou/uL (152-406)
[2024-04-18 07:26] LABS: Anion Gap 6.8 mEq/L (5.0-15.0); Potassium 4.8 mEq/L (3.5-5.1)
[2024-04-18 07:44] LABS: Specific Gravity 1.007 (1.005-1.030); Sqamous Epithelial <5 /HPF (None Seen); Urine Bacteria None Seen /HPF (<20); Urine Bilirubin NEGATIVE (Negative); Urine Blood Negative (Negative); Urine Clarity Clear (Clear); Urine Color Colorless (Yellow); Urine Culture Reflex Order NOT NEEDED; Urine Glucose NEGATIVE (Negative); Urine Ketones NEGATIVE (Negative); Urine Microscopic Reflex YN ORDER UMIC; Urine Nitrite NEGATIVE (Negative); Urine Protein NEGATIVE (Negative); Urine RBC None Seen /HPF (None Seen); Urine Urobilinogen Normal (Normal); Urine WBC None Seen /HPF (<5)
[2024-04-18 09:04] VITALS: BP 135/80; TEMP 98.1
[2024-04-18] MEDS: METOPROLOL TAR 50 MG TAB PO SCH (09:35)
--- NOTE | 2024-04-18 10:48 | P.DS ---
Admission Date: 04/17/24 Discharge Date: 04/18/24 Disposition: ROUTINE DISCHARGE Discharge Condition: GOOD Reason for Admission: hyperkalemia, hyponatremia Brief History of Present Illness: Patient is a 78 year old female with grade II diastolic CHF, HTN and HLD. She presents accompanied by family for abnormal outpatient labs. Patient recently had routine outpatient labs which revealed elevated K+ and low Na+. She is on lasix and spironolactone. She was instructed to present to ER for further evaluation. Patient is not particularly symptomatic. Work up in the ER showed a K+ of 5.7 and Na+ of 124. She received kayexalate and NS bolus. Hospital Course: She remained stable, asymptomatic for hyponatremia. Her sodium gradually increased to 128, potassium normalized to 4.8, serum creatinine back to normal after holding her furosemide , spironolactone and losartan. She was clinically euvolemic, chest x-ray showed no sign of pulmonary edema or pleural effusion. She is being discharged home. She was instructed to continue to hold furosemide and spironolactone until she follow-up with her primary care doctor in a few days but okay to resume losartan and metoprolol. #1 asymptomatic hypoosmolar hyponatremia secondary to diuretics Serum osmolality 271, initial serum sodium sodium 124, urine osmolality 251, urine sodium ordered but not done. #2 hyperkalemia without EKG change to due to potassium sparing diuretics and ARB Resolved #3 mild DARLENE associated with aggressive diuresis Improved #4 history of hypertension #5 history of COPD in not acute exacerbation Vital Signs/Physical Exam: Temp Pulse Resp BP Pulse Ox 98.1 F 81 16 135/80 90 L 04/18/24 08:00 04/18/24 08:00 04/18/24 08:00 04/18/24 08:00 04/18/24 08:00 Other Physical/Emotional Findings: - Physical Exam. General: Not acutely ill looking, in no apparent distress,. HEENT: Normocephalic, atraumatic, nonicteric sclera, nonanemic conjunctive. Neck: Supple, without JVD or goiter or thyroid mass. Respiratory: Normal breathing effort, clear to auscultation bilaterally, no crackles no wheezing or rhonchi. Cardiovascular: Regular rate and rhythm, S1, S2 normal, no murmur no gallop. Gastrointestinal: Normal bowel sounds, nondistended, nontender, No ascites, , No masses, no hepatosplenomegaly. Extremities : No clubbing, No peripheral edema,. Integumentary: No rashes, petechia, suspected lesions. Lymphatics: No axilla or cervical lymphadenopathy. Neurology; alert awake oriented x3, no focal neurologic deficit, normal affection . mood and behavior. Laboratory Data at Discharge: WBC 6.00 thou/uL (4.3-10.9) 04/18/24 06:43 Hgb 11.5 g/dL (12.0-15.0) L 04/18/24 06:43 Hct 34.3 % (36.0-45.0) L 04/18/24 06:43 Plt Count 346 thou/uL (152-406) 04/18/24 06:43 PT 11.9 SECONDS (9.4-12.5) 04/17/24 18:06 INR 1.06 04/17/24 18:06 Sodium 128 mEq/L (136-145) L 04/18/24 06:43 Potassium 4.8 mEq/L (3.5-5.1) 04/18/24 06:43 BUN 25 mg/dL (7-18) H 04/18/24 06:43 Creatinine 0.96 mg/dL (0.55-1.02) 04/18/24 06:43 Glucose 97 mg/dL (74-106) 04/18/24 06:43 Phosphorus 2.7 mg/dL (2.5-4.9) 04/17/24 22:30 Magnesium 1.8 mg/dL (1.6-2.4) 04/17/24 22:30 Total Bilirubin 0.3 mg/dL (0.2-1.0) 04/17/24 17:28 AST 23 U/L (15-37) 04/17/24 17:28 ALT 23 U/L (13-56) 04/17/24 17:28 Alkaline Phosphatase 114 U/L (45-117) 04/17/24 17:28 Home Medications: Aspirin Chewable [Aspirin Chewable*] 1 tab PO DAILY 06/17/19 Atorvastatin Calcium 40 mg PO DAILY 06/17/19 Clopidogrel Bisulfate [Plavix*] 75 mg PO DAILY 03/04/20 Levothyroxine [Synthroid*] 1 tab PO DAILY 09/28/20 Metoprolol Tartrate 50 mg PO DAILY 09/28/20 Losartan Potassium [Cozaar] 25 mg PO DAILY 06/11/23 Fluticasone/Umeclidin/Vilanter [Trelegy Ellipta 200-62.5-25] 1 each IH BID #1 inh 06/12/23 Albuterol Neb [Proventil 0.083% Neb Soln] 2.5 mg NEB Q8H PRN 04/18/24 Docusate [Colace Cap*] 100 mg PO BID 04/18/24 Ketorolac Opth [Acular 0.5% Opth Drops*] 1 drop OPTH DAILY 04/18/24 Diet: Regular Activity: Ad honey Followup: Jeremi Alaniz DO [Primary Care Provider] -
== END 2024-04-18 13:26 | disposition home or self-care (01) ==
LOC: ER 16:33 → ERHOLD 18:45 → 2ND 20:53
PROVIDERS: ADMIT Internal Medicine; ATTEND Internal Medicine
DX: I50.30 Unspecified diastolic (congestive) heart failure (principal); E87.5 Hyperkalemia; I25.10 Atherosclerotic heart disease of native coronary artery without angina pectoris; E87.1 Hypo-osmolality and hyponatremia; I10 Essential (primary) hypertension; E78.5 Hyperlipidemia, unspecified; E03.9 Hypothyroidism, unspecified; I71.20 Thoracic aortic aneurysm, without rupture, unspecified; N17.9 Acute kidney failure, unspecified; J44.9 Chronic obstructive pulmonary disease, unspecified
CPT/HCPCS: 96365; 85025 ×2; 81001; 80048 ×4; 36415 ×2; 83735 ×2; 84100; 85610; 84300; 82947 ×2; 80076; 84484; 83880; 83930; 83935; 76377; 74176; 71045; 99285; 96366; J1644 ×2; J3475; J0360; J7613; J7040; J7030; G0378 ×4

== ENCOUNTER 2024-08-01 09:57 | Emergency (ER) | payer OTHER ==
--- OUTSIDE RECORDS SUMMARY | 2024-08-01 10:04 | XMS REPORT | Continuity of Care Document ---
Author Name Unknown Address [address] [place] [address] [facility] Address [address] [place] [address] Care Team Providers Care Beading Installer Name Role Phone Danilo DAVIS, Lance Gold Primary Care Physician [phone] Jeremi Alaniz Attending Clinician Unavailable Rohith Kc Attending Clinician UnavailJose Garduno Admitting Clinician Unavailable Payers Payer Name Policy Type Policy Number Effective Date Expirati on Date Source MEDICARE NOVITAS [id number] 2011 00:00:00 [facility] MEDICARE NOVITAS [id number] 2011 00:00:00 [id number] 2011 00:00:00 [facility] MEDICARE PART A \T\ B [id number] 2011 00:00:00 Problems Condition Name Condition Details Condition Category Status Onset Date Resolution Date Last Treatment Date Treating Clinician Comments Source [id number] Stage 3a chronic kidney disease Problem [facility] [id number] Macrocytic Problem [facility] [id number] Coronary artery disease involving [place] coronary artery of [place] heart with angina pectoris Problem [facility] [id number] Hypercalce em Problem [facility] [id number] Non-season al allergic rhinitis, unspecifie d trigger Problem [facility] [id number] Constipati on, unspecifie d constipati on type Problem [facility] [id number] GERD without esophagiti s Problem [facility] [id number] Mixed hyperlipid emia Problem [facility] [id number] Chronic diastolic congestive heart failure Problem [facility] [id number] Hypothyroi dism, unspecifie d type Problem [facility] [id number] Paroxysmal atrial fibrillati on Problem [facility] [id number] Essential hypertensi on Problem [facility] 130704284 S/P splenectom y Problem [facility] Standard chest X-ray abnormal Abnormal chest x-ray Problem [facility] [id number] 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 Problem [facility] [id number] COPD exacerbati on Problem [facility] 350115652 Right upper lobe pulmonary nodule Problem [facility] [id number] Chronic obstructiv e pulmonary disease, unspecifie d COPD type Problem [facility] [id number] Chronic respirator y failure with hypoxia Problem [facility] [id number] Mild aortic stenosis Problem [facility] Anemia Anemia, unspecifie d type Problem [facility] Overweight Overweight Problem [facility] [place] [facility] Allergies, Adverse Reactions, Alerts Allergy Name Allergy Type Status Severity Reaction(s) Onset Date Inactive Date Treating Clinician Comments Source No Known Allergie s DA Active U 05-04 00:00: 00 [facility] No Known Allergie s DA Active U 05-04 00:00: 00 [facility] No Known Allergie s DA Active U 09-29 00:00: 00 [facility] No Known Allergie s DA Active U 09-29 00:00: 00 [facility] No Known Contrast Allergie s DA Active U 06-12 00:00: 00 [facility] No Known Drug Allergie s DA Active U 06-12 00:00: 00 [facility] No Known Food Allergie s DA Active U 06-12 00:00: 00 [facility] No Known Other Allergie s DA Active U 06-12 00:00: 00 [facility] NO KNOWN ALLERGIE S Drug Class Active [facility] Social History Social Habit Start Date Stop Date Quantity Comments Source History of Tobacco Use [facility] Sex Assigned At [facility] Smoking Status Start Date Stop Date Source Never Smoker [facility] Former Smoker 2024-02-07 00:00:00 2024-02-07 00:00:00 [facility] Medications Ordered Medication Name Filled Medication Name Start Date Stop Date Current Medication? Ordering Clinician Indication Dosage Frequency Signature (SIG) Comments Components Source Trelegy Ellipta 100 mcg-62.5 mcg-25 mcg powder for inhalation 07-15 00:00: 00 Yes mcg Drake Valdovinos docusate sodium 100 mg capsule 07-14 00:00: 00 Yes 1mg Drake Valdovinos albuterol sulfate 2.5 mg/3 mL (0.083 %) solution for nebulizatio n 07-14 00:00: 00 Yes 3/3 mL (0.083 %) Drake Valdovinos albuterol sulfate concentrate 2.5 mg/0.5 mL solution for nebulizatio n 07-14 00:00: 00 Yes 1mg/0.5 mL Drake Valdovinos Trelegy Ellipta 100 mcg-62.5 mcg-25 mcg powder for inhalation 3-20 00:00: 00 Yes mcg Drake Valdovinos atorvastati n 40 mg tablet 2-24 00:00: 00 Yes mg Drake Valdovinos metoprolol tartrate 50 mg tablet 2-24 00:00: 00 Yes mg Drake Valdovinos clopidogrel 75 mg tablet 1-16 00:00: 00 Yes mg Drake Valdovinos losartan 25 mg tablet 1-14 00:00: 00 Yes mg Drake Valdovinos levothyroxi ne 100 mcg tablet 2023-04 1- 00:00: 00 Yes mcg Drake Valdovinos spironolact one 25 mg tablet 2023-04 0- 00:00: 00 Yes mg Drake Valdovinos furosemide 20 mg tablet 2023-04 0 00:00: 00 Yes mg Drake Valdovinos diflupredna te 0.05 % eye drops - 00:00: 00 Yes % Drake Valdovinos Atorvastati n Calcium 40 MG Atorvastati n Calcium 40 MG No 1{table t} QD Atorvastat in Calcium 40 MG Polyethylen e Glycol Polyethylen e Glycol No 1{puff} QD Polyethyle ne Glycol Docusate Sodium 100 MG [...] 1{table t} QD Aspirin 81 81 MG Albuterol Sulfate (2.5 MG/3ML) 0.083% Albuterol [...] t} QD Clopidogre l Bisulfate 75 MG Diflupredna te 0.05 % Diflupredna te 0.05 % No 1{drop_ into_af fected_ eye} BID Diflupredn ate 0.05 % Immunizations Ordered Immunization Name Filled Immunization Name Date Status Comments [facility] 2021-[facility]-27 10:30:00 [facility] 2021-03-27 10:30:00 Completed [facility] Fluzout 2021-03-27 10:30:00 Completed [facility] Fluzout Fluzout 2021-03-27 10:30:00 Completed [facility] Pneumovax (PPSV23) Pneumovax (PPSV23) 2021-03-27 10:29:00 Completed [facility] Pneumovax (PPSV23) Pneumovax (PPSV23) 2021-03-27 10:29:00 Completed [facility] Pneumovax (PPSV23) Pneumovax (PPSV23) 2021-03-27 10:29:00 Completed [facility] Pneumovax (PPSV23) Pneumovax (PPSV23) 2021-03-27 10:29:00 Completed [facility] FluAD FluAD 2019-11-27 08:58:00 Completed [facility] FluAD FluAD 2019-11-27 08:58:00 Completed [facility] FluAD FluAD 2019-11-27 08:58:00 Completed [facility] FluAD FluAD 2019-11-27 08:58:00 Completed [facility] FluAD FluAD Unknown Completed [facility] Fluzone Fluzone Unknown Completed [facility] Pneumovax (PPSV23) Pneumovax (PPSV23) Unknown Completed [facility] COVID-19 Vaccine (Nato) COVID-19 Vaccine (Nato) Unknown Completed [facility] FluAD FluAD Unknown Completed [facility] Fluzone Fluzone Unknown Completed [facility] Pneumovax (PPSV23) Pneumovax (PPSV23) Unknown Completed [facility] Influenza Influenza Unknown Completed [facility] COVID-19 Vaccine (Nato) COVID-19 Vaccine (Nato) Unknown Completed [facility] FluAD FluAD Unknown Completed [facility] Fluzone Fluzone Unknown Completed [facility] Pneumovax (PPSV23) Pneumovax (PPSV23) Unknown Completed [facility] Influenza Influenza Unknown Completed [facility] COVID-19 Vaccine (Nato) COVID-19 Vaccine (Nato) Unknown Completed [facility] FluAD FluAD Unknown Completed [facility] Fluzone Fluzone Unknown Completed [facility] Pneumovax (PPSV23) Pneumovax (PPSV23) Unknown Completed [facility] Influenza Influenza Unknown Completed [facility] COVID-19 Vaccine (Nato) COVID-19 Vaccine (Nato) Unknown Completed [facility] FluAD FluAD Unknown Completed [facility] Fluzone Fluzone Unknown Completed [facility] Pneumovax (PPSV23) Pneumovax (PPSV23) Unknown Completed [facility] Influenza Influenza Unknown Completed [facility] COVID-19 Vaccine (Nato) COVID-19 Vaccine (Nato) Unknown Completed [facility] FluAD FluAD Unknown Completed [facility] Fluzone Fluzone Unknown Completed [facility] Pneumovax (PPSV23) Pneumovax (PPSV23) Unknown Completed [facility] Influenza Influenza Unknown Completed [facility] COVID-19 Vaccine (Nato) COVID-19 Vaccine (Nato) Unknown Completed [facility] FluAD FluAD Unknown Completed [facility] Fluzone Fluzone Unknown Completed [facility] Pneumovax (PPSV23) Pneumovax (PPSV23) Unknown Completed [facility] Influenza Influenza Unknown Completed [facility] COVID-19 Vaccine (Nato) COVID-19 Vaccine (Nato) Unknown Completed [facility] FluAD FluAD Unknown Completed [facility] Fluzone Fluzone Unknown Completed [facility] Pneumovax (PPSV23) Pneumovax (PPSV23) Unknown Completed [facility] Influenza Influenza Unknown Completed [facility] COVID-19 Vaccine (Nato) COVID-19 Vaccine (Nato) Unknown Completed [facility] FluAD FluAD Unknown Completed [facility] Fluzone Fluzone Unknown Completed [facility] Pneumovax (PPSV23) Pneumovax (PPSV23) Unknown Completed [facility] Influenza Influenza Unknown Completed [facility] COVID-19 Vaccine (Nato) COVID-19 Vaccine (Nato) Unknown Completed [facility] FluAD FluAD Unknown Completed [facility] Fluzone Fluzone Unknown Completed [facility] Pneumovax (PPSV23) Pneumovax (PPSV23) Unknown Completed [facility] Influenza Influenza Unknown Completed [facility] COVID-19 Vaccine (Nato) COVID-19 Vaccine (Nato) Unknown Completed [facility] FluAD FluAD Unknown Completed [facility] Fluzone Fluzone Unknown Completed [facility] Pneumovax (PPSV23) Pneumovax (PPSV23) Unknown Completed [facility] Influenza Influenza Unknown Completed [facility] Prevnar 20 (PCV20) Prevnar 20 (PCV20) Unknown Completed [facility] Vital Signs Vital Name Observation Time Observation Value Comments S ource height 2024-04-24 10:30:00 60 [in_i] [facility] [place] [facility] [facility] weight 2024-04-24 10:30:00 138.8 [lb_av] Co [facility] temperature 2024-04-24 10:30:00 97.2 [degF] Com [facility] bmi 2024-04-24 10:30:00 27.1 kg/m2 [facility] [place] [facility] [facility] oximetry 2024-04-24 10:30:00 96 % [facility] [place] [facility] [facility] respiratory rate 2024-04-24 10:30:00 16 /min [facility] blood pressure systolic 2024-04-24 10:30:00 132 mm[Hg] [facility] blood pressure diastolic 2024-04-24 10:30:00 78 mm[Hg] [facility] height 2024-02-11 15:00:00 60 [in_i] [facility] [place] [facility] weight 2024-02-11 15:00:00 131.0 [lb_av] Co [facility] temperature 2024-02-11 15:00:00 97.3 [degF] Com [facility] bmi 2024-02-11 15:00:00 25.58 kg/m2 Comm on [place] [facility] oximetry 2024-02-11 15:00:00 95 % [facility] [place] [facility] respiratory rate 2024-02-11 15:00:00 17 /min [facility] blood pressure systolic 2024-02-11 15:00:00 103 mm[Hg] [facility] blood pressure diastolic 2024-02-11 15:00:00 60 mm[Hg] [facility] height 2023-12-20 09:10:00 60 [in_i] [facility] weight 2023-12-20 09:10:00 131.8 [lb_av] Co on [facility] temperature 2023-12-20 09:10:00 97.2 [degF] Com [facility] bmi 2023-12-20 09:10:00 25.74 kg/m2 [facility] [place] [facility] oximetry 2023-12-20 09:10:00 96 % [facility] respiratory rate 2023-12-20 09:10:00 16 /min [facility] blood pressure systolic 2023-12-20 09:10:00 118 mm[Hg] [facility] blood pressure diastolic 2023-12-20 09:10:00 68 mm[Hg] [facility] height 2023-12-20 09:10:00 60 [in_i] [facility] weight 2023-12-20 09:10:00 131.8 [lb_av] [facility] temperature 2023-12-20 09:10:00 97.2 [degF] Com [facility] bmi 2023-12-20 09:10:00 25.74 kg/m2 [facility] [place] [facility] [facility] oximetry 2023-12-20 09:10:00 96 % [facility] respiratory rate 2023-12-20 09:10:00 16 /min [facility] blood pressure systolic 2023-12-20 09:10:00 118 mm[Hg] [facility] blood pressure diastolic 2023-12-20 09:10:00 68 mm[Hg] [facility] height 2023-09-19 09:10:00 60 [in_i] [facility] weight 2023-09-19 09:10:00 135 [lb_av] Comm on [facility] temperature 2023-09-19 09:10:00 97.3 [degF] Com [facility] bmi 2023-09-19 09:10:00 26.36 kg/m2 [facility] oximetry 2023-09-19 09:10:00 97 % [facility] blood pressure systolic 2023-09-19 09:10:00 112 mm[Hg] [facility] blood pressure diastolic 2023-09-19 09:10:00 68 mm[Hg] Common [facility] height 2023-09-19 09:20:00 60 [in_i] [facility] [place] [facility] [facility] weight 2023-09-19 09:20:00 135 [lb_av] Comm on [facility] temperature 2023-09-19 09:20:00 97.3 [degF] Com [facility] bmi 2023-09-19 09:20:00 26.36 kg/m2 [facility] oximetry 2023-09-19 09:20:00 97 % [facility] [place] [facility] blood pressure systolic 2023-09-19 09:20:00 112 mm[Hg] [facility] blood pressure diastolic 2023-09-19 09:20:00 68 mm[Hg] [facility] height 2023-06-17 15:30:00 60 [in_i] [facility] [place] [facility] weight 2023-06-17 15:30:00 132.0 [lb_av] [facility] [place] [facility] [facility] temperature 2023-06-17 15:30:00 97.7 [degF] Com [facility] [place] [facility] [facility] bmi 2023-06-17 15:30:00 25.78 kg/m2 [facility] [place] [facility] [facility] oximetry 2023-06-17 15:30:00 99 % [facility] [place] [facility] respiratory rate 2023-06-17 15:30:00 18 /min [facility] blood pressure systolic 2023-06-17 15:30:00 115 mm[Hg] [facility] blood pressure diastolic 2023-06-17 15:30:00 65 mm[Hg] Common [facility] height 2023-02-19 10:00:00 60 [in_i] [facility] [place] [facility] [facility] weight 2023-02-19 10:00:00 117.4 [lb_av] [facility] [place] [facility] temperature 2023-02-19 10:00:00 98.0 [degF] Com [facility] bmi 2023-02-19 10:00:00 22.93 kg/m2 [facility] [place] [facility] oximetry 2023-02-19 10:00:00 98 % [facility] [place] [facility] respiratory rate 2023-02-19 10:00:00 16 /min [facility] blood pressure systolic 2023-02-19 10:00:00 124 mm[Hg] Common [facility] blood pressure diastolic 2023-02-19 10:00:00 62 mm[Hg] Common [facility] height 2022-09-18 10:10:00 60 [in_i] [facility] [place] [facility] [facility] weight 2022-09-18 10:10:00 112 [lb_av] Comm on [facility] temperature 2022-09-18 10:10:00 97.6 [degF] Com [facility] bmi 2022-09-18 10:10:00 21.87 kg/m2 [facility] [place] [facility] [facility] oximetry 2022-09-18 10:10:00 99 % [facility] respiratory rate 2022-09-18 10:10:00 16 /min [facility] blood pressure systolic 2022-09-18 10:10:00 110 mm[Hg] [facility] blood pressure diastolic 2022-09-18 10:10:00 77 mm[Hg] [facility] height 2022-09-18 10:10:00 60 [in_i] [facility] weight 2022-09-18 10:10:00 112 [lb_av] Comm on [facility] temperature 2022-09-18 10:10:00 97.6 [degF] Com [facility] bmi 2022-09-18 10:10:00 21.87 kg/m2 [facility] [place] [facility] oximetry 2022-09-18 10:10:00 99 % [facility] respiratory rate 2022-09-18 10:10:00 16 /min [facility] blood pressure systolic 2022-09-18 10:10:00 110 mm[Hg] [facility] blood pressure diastolic 2022-09-18 10:10:00 77 mm[Hg] Common [facility] height 2022-06-25 10:30:00 60 [in_i] [facility] weight 2022-06-25 10:30:00 115 [lb_av] Comm on [facility] temperature 2022-06-25 10:30:00 96.4 [degF] Com [facility] bmi 2022-06-25 10:30:00 22.46 kg/m2 [facility] [place] [facility] [facility] oximetry 2022-06-25 10:30:00 95 % [facility] [place] [facility] respiratory rate 2022-06-25 10:30:00 17 /min [facility] blood pressure systolic 2022-06-25 10:30:00 126 mm[Hg] [facility] blood pressure diastolic 2022-06-25 10:30:00 65 mm[Hg] [facility] height 2021-12-26 10:10:00 60 [in_i] [facility] [place] [facility] weight 2021-12-26 10:10:00 119 [lb_av] Comm on [place] [facility] temperature 2021-12-26 10:10:00 97.5 [degF] Com mon [facility] [facility] bmi 2021-12-26 10:10:00 23.24 kg/m2 [facility] [place] [facility] [facility] oximetry 2021-12-26 10:10:00 90 % [facility] [place] [facility] respiratory rate 2021-12-26 10:10:00 16 /min [facility] blood pressure systolic 2021-12-26 10:10:00 111 mm[Hg] [facility] blood pressure diastolic 2021-12-26 10:10:00 71 mm[Hg] [facility] height 2021-09-19 14:30:00 61 [in_i] [facility] [place] [facility] [facility] weight 2021-09-19 14:30:00 125.6 [lb_av] [facility] [place] [facility] [facility] temperature 2021-09-19 14:30:00 97.3 [degF] Com [facility] [place] [facility] [facility] bmi 2021-09-19 14:30:00 23.73 kg/m2 [facility] [place] [facility] [facility] oximetry 2021-09-19 14:30:00 96 % [facility] respiratory rate 2021-09-19 14:30:00 17 /min [facility] blood pressure systolic 2021-09-19 14:30:00 117 mm[Hg] [facility] blood pressure diastolic 2021-09-19 14:30:00 81 mm[Hg] Common [facility] height 2021-09-19 14:30:00 61 [in_i] [facility] [place] [facility] weight 2021-09-19 14:30:00 125.6 [lb_av] Co [facility] temperature 2021-09-19 14:30:00 97.3 [degF] Com [facility] bmi 2021-09-19 14:30:00 23.73 kg/m2 Comm [facility] [place] [facility] [facility] oximetry 2021-09-19 14:30:00 96 % [facility] respiratory rate 2021-09-19 14:30:00 17 /min [facility] blood pressure systolic 2021-09-19 14:30:00 117 mm[Hg] Common [facility] blood pressure diastolic 2021-09-19 14:30:00 81 mm[Hg] Common [facility] height 2021-06-26 09:50:00 61 [in_i] [facility] [place] [facility] [facility] weight 2021-06-26 09:50:00 134.9 [lb_av] Co [facility] temperature 2021-06-26 09:50:00 97.0 [degF] Com [facility] bmi 2021-06-26 09:50:00 25.49 kg/m2 [facility] [place] [facility] oximetry 2021-06-26 09:50:00 93 % [facility] respiratory rate 2021-06-26 09:50:00 17 /min [facility] [place] [facility] blood pressure systolic 2021-06-26 09:50:00 132 mm[Hg] Common [facility] blood pressure diastolic 2021-06-26 09:50:00 65 mm[Hg] Common [facility] height 2021-03-27 10:00:00 61 [in_i] [facility] [place] [facility] [facility] weight 2021-03-27 10:00:00 136.3 [lb_av] [facility] temperature 2021-03-27 10:00:00 97.3 [degF] Com [facility] [facility] bmi 2021-03-27 10:00:00 25.75 kg/m2 Comm [facility] [place] [facility] [facility] oximetry 2021-03-27 10:00:00 93 % [facility] [place] [facility] respiratory rate 2021-03-27 10:00:00 17 /min [facility] blood pressure systolic 2021-03-27 10:00:00 114 mm[Hg] [facility] blood pressure diastolic 2021-03-27 10:00:00 78 mm[Hg] [facility] Respiratory Rate 2024-07-15 10:11:00 Drakemargaux Valdovinos BP Systolic 2024-07-15 10:11:00 131 mm[Hg] Step hen Andrea Valdovinos BP Diastolic 2024-07-15 10:11:00 75 mm[Hg] Chano Valdovinos Weight Measured 2024-07-15 10:11:00 134.80 pounds Drake Valdovinos Height Measured 2024-07-15 10:11:00 61.00 inches Drake Valdovinos Body Temperature 2024-07-15 10:11:00 97.40 degrees Drake Valdovinos Heart Rate 2024-07-15 10:11:00 67.00 /min Evangelina en Andrea Valdovinos Procedures Procedure Date / Time Performed Performing Clinicia n Source [id number] 2019-05-05 00:00:00 [facility] [id number] 2019-05-05 00:00:00 [facility] Encounters Start Date/Time End Date/Time Encounter Type Admission Type Attending Clinicians Care Facility Care Department Encounter ID Source 2024-04-22 13:45:00 [facility] [id number] [facility] 2024-02-07 10:30[id number] [facility] 2023-02-19 10:08:00 Outpatient Alaniz, Jeremi [facility] [id number] [facility] 2021-09-13 10:23:02 Outpatient Alaniz, Jeremi [facility] [id number] [facility] 2021-05-10 14:23:26 Outpatient Alaniz, Jeremi [facility] [id number] [facility] 2021-05-10 14:18:25 Outpatient Alaniz, Jeremi [facility] [id number] [facility] 2021-05-10 12:07:25 Outpatient Alaniz, Jeremi [facility] [id number] [facility] 2021-05-10 11:22:27 Outpatient Alaniz, Jeremi [facility] [id number] [facility] 2021-05-10 11:15:02 Outpatient [facility] [id number] [facility] 2019-05-05 10:30:00 Inpatient Rohith Khan [facility] [id number] [facility] 2024-07-15 10:08:40 2024-07-15 10:08:40 Outpatient SFA SFA [id number] Drake Valdovinos 2024-07-15 00:00:00 2024-07-15 00:00:00 Outpatient Visit SFA SFA [id number] Drake Valdovinos 2024-04-27 00:00:00 2024-04-27 00:00:00 (TEL) STLMLC STLMLC [id number] [facility] 2024-04-24 00:00:00 2024-04-24 00:00:00 (HOSP F/U) Hospital Follow Up STLMLC STLMLC [id number] [facility] 2024-04-20 00:00:00 2024-04-20 00:00:00 (TEL) STLMLC STLMLC [id number] [facility] 2024-04-17 00:00:00 2024-04-17 00:00:00 (TEL) STLMLC STLMLC [id number] [facility] 2024-04-17 00:00:00 2024-04-17 00:00:00 (TEL) STLMLC STLMLC [id number] [facility] 2024-04-02 00:00:00 2024-04-02 00:00:00 (TEL) STLMLC STLMLC [id number] [facility] 2024-02-11 00:00:00 2024-02-11 00:00:00 OFFICE VISIT ESTAB PT LEVEL 3 STLMLC STLMLC [id number] [facility] 2024-02-05 00:00:00 2024-02-05 00:00:00 (TEL) STLMLC STLMLC [id number] [facility] 2023-12-20 00:00:00 2023-12-20 00:00:00 (TEL) STLMLC STLMLC [id number] [facility] 2023-12-20 00:00:00 2023-12-20 00:00:00 OFFICE VISIT ESTAB PT LEVEL 4 STLMLC STLMLC [id number] [facility] 2023-11-05 00:00:00 2023-11-05 00:00:00 (TEL) STLMLC STLMLC [id number] [facility] 2023-09-19 00:00:00 2023-09-19 00:00:00 (HOSP F/U) Hospital Follow Up STLMLC STLMLC [id number] [facility] 2023-09-19 00:00:00 2023-09-19 00:00:00 SUB ANNUAL [facility] WELLNESS VISIT STLMLC STLMLC [id number] [facility] 2023-09-13 00:00:00 2023-09-13 00:00:00 (TEL) STLMLC STLMLC [id number] [facility] 2023-09-13 00:00:00 2023-09-13 00:00:00 (TEL) STLMLC STLMLC [id number] [facility] 2023-06-17 00:00:00 2023-06-17 00:00:00 (HOSP F/U) Hospital Follow Up STLMLC STLMLC [id number] [facility] 2023-06-13 00:00:00 2023-06-13 00:00:00 (TEL) STLMLC STLMLC [id number] [facility] 2023-03-19 00:00:00 2023-03-19 00:00:00 (TEL) STLMLC STLMLC [id number] [facility] 2023-02-19 00:00:00 2023-02-19 00:00:00 OFFICE VISIT ESTAB PT LEVEL 4 STLMLC STLMLC [id number] [facility] 2023-02-15 00:00:00 2023-02-15 00:00:00 (TEL) STLMLC STLMLC [id number] [facility] 2023-02-06 00:00:00 2023-02-06 00:00:00 (TEL) STLMLC STLMLC [id number] [facility] 2023-02-06 00:00:00 2023-02-06 00:00:00 (TEL) STLMLC STLMLC [id number] [facility] 2022-09-18 00:00:00 2022-09-18 00:00:00 OFFICE VISIT ESTAB PT LEVEL 4 STLMLC STLMLC [id number] [facility] 2022-09-18 00:00:00 2022-09-18 00:00:00 SUB ANNUAL [facility] WELLNESS VISIT STLMLC STLMLC [id number] [facility] 2022-06-25 00:00:00 2022-06-25 00:00:00 OFFICE VISIT ESTAB PT LEVEL 4 STLMLC STLMLC [id number] [facility] 2022-03-14 00:00:00 2022-03-14 00:00:00 (TEL) STLMLC STLMLC [id number] [facility] 2022-01-22 00:00:00 2022-01-22 00:00:00 (TEL) STLMLC STLMLC [id number] [facility] 2021-12-26 00:00:00 2021-12-26 00:00:00 OFFICE VISIT ESTAB PT LEVEL 4 STLMLC STLMLC [id number] [facility] 2021-09-19 00:00:00 2021-09-19 00:00:00 OFFICE VISIT ESTAB PT LEVEL 4 STLMLC STLMLC [id number] [facility] 2021-09-19 00:00:00 2021-09-19 00:00:00 SUB ANNUAL [facility] WELLNESS VISIT STLMLC STLMLC [id number] [facility] 2021-09-19 00:00:00 2021-09-19 00:00:00 (TEL) STLMLC STLMLC [id number] [facility] 2021-08-29 00:00:00 2021-08-29 00:00:00 (TEL) STLMLC STLMLC [id number] [facility] 2021-06-26 00:00:00 2021-06-26 00:00:00 OFFICE VISIT ESTAB PT LEVEL 4 STLMLC STLMLC [id number] [facility] 2021-03-27 00:00:00 2021-03-27 00:00:00 OFFICE VISIT ESTAB PT LEVEL 4 STLMLC STLMLC [id number] [facility] 2021-03-13 00:00:00 2021-03-13 00:00:00 (TEL) STLMLC STLMLC [id number] [facility] 2021-03-06 00:00:00 2021-03-06 00:00:00 (TEL) STLMLC STLMLC [id number] [facility] 2021-02-10 00:00:00 2021-02-10 00:00:00 (TEL) STLMLC STLMLC [id number] [facility] 2020-12-23 00:00:00 2020-12-23 00:00:00 Outpatient STLMLC STLMLC [id number] [facility] 2020-11-24 00:00:00 2020-11-24 00:00:00 Outpatient STLMLC STLMLC [id number] [facility] 2020-09-29 00:00:00 2020-09-29 00:00:00 Outpatient STLMLC STLMLC [id number] [facility] 2020-09-27 00:00:00 2020-09-27 00:00:00 Outpatient STLMLC STLMLC [id number] [facility] 2020-09-26 00:00:00 2020-09-26 00:00:00 Outpatient STLMLC STLMLC [id number] [facility] 2020-09-26 00:00:00 2020-09-26 00:00:00 Outpatient STLMLC STLMLC [id number] [facility] 2020-09-19 00:00:00 2020-09-19 00:00:00 Outpatient STLMLC STLMLC [id number] [facility] 2020-07-02 11:05:00 2020-07-02 11:05:00 Outpatient [facility] [id number] [facility] 2020-06-11 11:30:00 2020-06-11 11:30:00 Outpatient [facility] [id number] [facility] 2020-04-05 00:00:00 2020-04-05 00:00:00 Outpatient STLMLC STLMLC [id number] [facility] 2020-03-08 00:00:00 2020-03-08 00:00:00 Outpatient STLMLC STLMLC [id number] [facility] 2020-03-08 00:00:00 2020-03-08 00:00:00 Outpatient STLMLC STLMLC [id number] [facility] 2019-12-03 09:15:00 2019-12-03 09:15:00 [facility] [id number] [facility] 2019-11-19 15:09:00 2019-11-19 15:09:00 [facility] [id number] [facility] 2019-09-03 11:00:00 2019-09-03 11:00:00 [facility] [id number] [facility] 2019-09-03 10:45:00 2019-09-03 10:45:00 [facility] [id number] [facility] 2019-07-23 09:24:00 2019-07-23 09:24:00 [facility] [id number] [facility] 2019-07-11 13:05:00 2019-07-11 13:05:00 [facility] [id number] [facility] 2019-06-30 14:15:00 2019-06-30 14:15:00 [facility] [id number] [facility] Results Test Description Test Time Test Comments Results Result Co mments Source FREE T4 (THYROXINE)2023-12-13 00:00:00* Test Item Value Reference Range Interpretation Comme nts HEMOGLOBIN A1c (test code = 4548-4) 5.9 % See_Comment H [Automated messa Soapets] The system which generated this result transmitted reference range: 4.2-5.6 %. The reference range was not used to interpret this result as normal/abnormal. TSH REFLEX TO FREE T4 (test code = 32978-7) 0.349 UIU/ML See_Comment L [Automated message] The system which generated this result transmitted reference range: 0.400-4.100 UIU/ML. The reference range was not used to interpret this result as normal/abnormal. CALC LDL CHOL (test code = 88178-5) 66 MG/DL See_Comment [Automated messa ge] The system which generated this result transmitted reference range: <100 MG/DL. The reference range was not used to interpret this result as normal/abnormal. CHOLESTEROL (test code = 2093-3) 136 MG/DL See_Comment [Automated messa ge] The system which generated this result transmitted reference range: <200 MG/DL. The reference range was not used to interpret this result as normal/abnormal. HDL CHOLESTEROL (test code = 2085-9) 53 MG/DL See_Comment [Automated messa ge] The system which generated this result transmitted reference range: >39 MG/DL. The reference range was not used to interpret this result as normal/abnormal. RISK RATIO LDL/HDL (test code = 96021-7) 1.25 RATIO See_Comment [Automated message] The system which generated this result transmitted reference range: <3.22 RATIO. The reference range was not used to interpret this result as normal/abnormal. TRIGLYCERIDES (test code = 2571-8) 87 MG/DL See_Comment [Automated messa ge] The system which generated this result transmitted reference range: <150 MG/DL. The reference range was not used to interpret this result as normal/abnormal. BASOPHILS (test code = 10525-1) 0.6 % DIAGNOSIS: (test code = 00508-3) (NOTE) COMMENTS (test code = 39870-6) (NOTE) EOSINOPHILS (test code = 72973-3) 6.0 % HEMATOCRIT (test code = 67004-1) 35.0 % See_Comment [Automated Signosticsa ge] The system which generated this result transmitted reference range: 34.0-45.0 %. The reference range was not used to interpret this result as normal/abnormal. HEMOGLOBIN (test code = 718-7) 11.4 G/DL See_Comment L [Automated messa ge] The system which generated this result transmitted reference range: 11.5-15.5 G/DL. The reference range was not used to interpret this result as normal/abnormal. LYMPHOCYTES (test code = 45599-3) 22.8 % MCH (test code = 84710-8) 32.0 PG See_Comment [Automated Signosticsa ge] The system which generated this result transmitted reference range: 25.0-33.0 PG. The reference range was not used to interpret this result as normal/abnormal. MCHC (test code = 06229-2) 32.6 G/DL See_Comment [Automated messa ge] The system which generated this result transmitted reference range: 31.0-36.0 G/DL. The reference range was not used to interpret this result as normal/abnormal. MCV (test code = 14860-9) 98.3 fL See_Comment [Automated messa ge] The system which generated this result transmitted reference range: 80.0-99.0 fL. The reference range was not used to interpret this result as normal/abnormal. MICROSCOPIC DESCRIPTION: (test code = 66151-7) (NOTE) MONOCYTES (test code = 82761-9) 15.1 % NEUTROPHILS (test code = 77037-7) 55.3 % NUCLEATED RBCS (test code = 46654-5) 0.0 /100 WBC'S See_Comment [Automated message] The system which generated this result transmitted reference range: 0.0 /100 WBC'S. The reference range was not used to interpret this result as normal/abnormal. PATHOLOGIST: (test code = 94279-1) (NOTE) PLATELET COUNT (test code = 42477-8) 275 K/UL See_Comment [Automated messa ge] The system which generated this result transmitted reference range: 130-400 K/UL. The reference range was not used to interpret this result as normal/abnormal. RBC (test code = 42733-8) 3.56 M/UL See_Comment L [Automated messa ge] The system which generated this result transmitted reference range: 3.80-5.40 M/UL. The reference range was not used to interpret this result as normal/abnormal. RDW (test code = 23940-1) 14.2 % See_Comment [Automated messa ge] The system which generated this result transmitted reference range: 11.5-15.0 %. The reference range was not used to interpret this result as normal/abnormal. WBC (test code = 36712-8) 5.4 K/UL See_Comment [Automated messa ge] The system which generated this result transmitted reference range: 3.5-11.0 K/UL. The reference range was not used to interpret this result as normal/abnormal. ALBUMIN (test code = 1751-7) 4.0 G/DL See_Comment [Automated messa ge] The system which generated this result transmitted reference range: 3.5-5.2 G/DL. The reference range was not used to interpret this result as normal/abnormal. ALKALINE PHOSPHATASE (test code = 6768-6) 101 U/L See_Comment [Automated message] The system which generated this result transmitted reference range: 40-142 U/L. The reference range was not used to interpret this result as normal/abnormal. BILIRUBIN, TOTAL (test code = 1975-2) 0.4 MG/DL See_Comment [Automated messa ge] The system which generated this result transmitted reference range: <=1.2 MG/DL. The reference range was not used to interpret this result as normal/abnormal. BUN (test code = 3094-0) 27 MG/DL See_Comment H [Automated messa ge] The system which generated this result transmitted reference range: 8-23 MG/DL. The reference range was not used to interpret this result as normal/abnormal. CALCIUM (test code = 66225-1) 10.6 MG/DL See_Comment H [Automated messa ge] The [...] normal/abnormal. CALC BUN/CREAT (test code = 3097-3) 23 RATIO See_Comment [Automated messa ge] The system which generated this result transmitted reference range: 6-28 RATIO. The reference range was not used to interpret this result as normal/abnormal. CALC GLOBULIN (test code = 13097-7) 3.3 G/DL See_Comment [Automated messa ge] The system which generated this result transmitted reference range: 1.9-3.7 G/DL. The reference range was not used to interpret this result as normal/abnormal. CARBON DIOXIDE (test code = 1963-8) 26 MEQ/L See_Comment [Automated messa ge] The system which generated this result transmitted reference range: 19-31 MEQ/L. The reference range was not used to interpret this result as normal/abnormal. CHLORIDE (test code = 2075-0) 99 MEQ/L See_Comment [Automated messa ge] The system which generated this result transmitted reference range: 95-107 MEQ/L. The reference range was not used to interpret this result as normal/abnormal. CREATININE (test code = 2160-0) 1.15 MG/DL See_Comment [Automated messa ge] The system which generated this result transmitted reference range: 0.60-1.30 MG/DL. The reference range was not used to interpret this result as normal/abnormal. eGFR (2020 CKD-EPI) (test code = 20402-7) 49 ML/MIN/1.73 See_Comment L [Automated message] The system which generated this result transmitted reference range: >60 ML/MIN/1.73. The reference range was not used to interpret this result as normal/abnormal. GLUCOSE (test code = 1558-6) 90 MG/DL See_Comment [Automated messa ge] The system which generated this result transmitted reference range: 70-99 MG/DL. The reference range was not used to interpret this result as normal/abnormal. POTASSIUM (test code = 2823-3) 4.6 MEQ/L See_Comment [Automated messa ge] The system which generated this result transmitted reference range: 3.5-5.4 MEQ/L. The reference range was not used to interpret this result as normal/abnormal. PROTEIN, TOTAL (test code = 2885-2) 7.3 G/DL See_Comment [Automated messa ge] The system which generated this result transmitted reference range: 6.1-8.3 G/DL. The reference range was not used to interpret this result as normal/abnormal. AST (test code = 1920-8) 31 U/L See_Comment [Automated messa ge] The system which generated this result transmitted reference range: 9-40 U/L. The reference range was not used to interpret this result as normal/abnormal. ALT (test code = 1742-6) 21 U/L See_Comment [Automated messa ge] The system which generated this result transmitted reference range: 5-40 U/L. The reference range was not used to interpret this result as normal/abnormal. SODIUM (test code = 2951-2) 138 MEQ/L See_Comment [Automated Signosticsa ge] The system which generated this result transmitted reference range: 133-146 MEQ/L. The reference range was not used to interpret this result as normal/abnormal. FREE T4 (THYROXINE) (test code = 3024-7) 1.54 NG/DL See_Comment [Automated message] The system which generated this result transmitted reference range: 0.80-1.90 NG/DL. The reference range was not used to interpret this result as normal/abnormal. CALCIUM, [id number] 00:00:00* Test Item Value Reference Range Interpretation Comme nts CALCIUM, IONIZED (test code = 94722-6) 5.35 MG/DL See_Comment [Automated Signosticsa Soapets] The system which generated this result transmitted reference range: 4.70-5.90 MG/DL. The reference range was not used to interpret this result as normal/abnormal. [id number] 00:00:00* Test Item Value Reference Range Interpretation Comme nts FERRITIN (test code = 84559-9) 53 NG/ML See_Comment [Automated Signosticsa ge] The system which generated this result transmitted reference range: 13-200 NG/ML. The reference range was not used to interpret this result as normal/abnormal. ARTERY,[id number] 10:05:00 RUN DATE: 05/07/19 [facility] PAGE 1 RUN TIME: 1005 Specimen Inquiry RUN USER: INTERFACE PATIENT : RACHEAL SABILLON LOC: ENA U #: [id number] AGE/SX: 73/F ROOM: [facility] RE05/05/19[facility] DR: Rohith Kc MD : 47 BED: A DIS: STATUS: ADM IN TLOC: SPEC #: [id number] RECD: 05/05/19 STATUS: DIEGO REQ #: [id number] GUS: 05/05/19 [facility] DR: Rohith Kc MD ENTERED: 05/05/19 SP TYPE: ARTERY, PL OTHR DR: Jose Marc MD, Nioti R MD Pepper, Gregory S MDORDERED: DECAL, SURG PATH LVL 3, SURG PATH LVL 4 CODES: F27549 - PLAQUE, NOS X35536 - ARTERY, NOS U19640 Q25080 - CAROTID ARTERY ATHEROSCLEROSIS M25192 [id number] - CERVIX EXCISIONAL BIOP BI5499 - LYMPH NODE, NOS COPIES TO: Jose Marc MD [address] [place] [address] [address] [place] [address] [email or web address] [address] [place] [address] [place] [address] [facility] [address] [place] [address] [place] [address] [facility] [address] [place] [id number] ICD CODES: 440 - PROCEDURES: DECAL (05/06/19-09) SURG PATH LVL 3 (05/05/19-1612) SURG PATH LVL 4 (05/06/19-1325) TISSUES: A. ARTERY, NOS - LT CAROTID PLAQUE B. LYMPH NODE, NOS - LT CERVICAL LYMPH NODE CONTINUED ON NEXT PAGE RUN DATE: 05/07/19 [facility] PAGE 2 RUN TIME: 1005 Specimen Inquiry RUN USER: INTERFACE SPEC #: [id number] PATIENT: RACHEAL SABILLON #[id number] (Continu ed) CLINICAL HISTORY LEFT INTERNAL CAROTID ARTERY STENOSIS CPT CODES CPT CODE(S): 18872 , 92022 , 36178 , ,, , FINAL DIAGNOSIS A. Plaque, [...] 05/07/19 1005 END OF REPORT BASIC METABOLIC [id number] 04:51:00* Test Item Value Reference Range Interpretation [...] CA) 9.6 MG/DL 8.4-10.2 N BASIC METABOLIC [id number] 04:40:00* Test Item Value Reference Range Interpretation [...] code = CA) MG/DL 8.7-9.7 BASIC METABOLIC [id number] 04:38:00* Test Item Value Reference Range Interpretation [...] code = CA) MG/DL 8.7-9.7 BASIC METABOLIC [id number] 04:37:00* Test Item Value Reference Range Interpretation [...] code = CA) MG/DL 8.7-9.7 CBC W/AUTO [id number] 04:18:00* Test Item Value Reference Range Interpretation [...] 0.00 K/mm3 0.0-0.1 N - XR CHEST [id number] 09:05:00Patient Name: RACHEAL SABILLON Unit No: [id number] EXAMS: CPT CODE: [id number] XR CHEST 1V 17459Bmll ID: [id number] HISTORY: Postoperative, left ICA stenosis [...] Lety Vazquez RT(R) Transcrpt Date/Tm/Trnsp: 05/06/2019 (904) t.AJP6 Orig Print D/T: S: 05/06/2019 (0908) [facility] NAME: RACHEAL SABILLON [id number] [address] PHYS: [place] [address] : 1945 AGE: 73 SEX: F LOC: Z.SI04 A PHONE #: [phone] EXAM DATE: 05/06/2019 STATUS: ADM IN FAX #: [phone] RADIOLOGY NO: PAGE 1 Signed ReportBASIC METABOLIC [id number] 06:09:00* Test Item Value Reference Range Interpretation [...] code = CA) 9.4 MG/DL 8.4-10.2 N [id number] 06:09:00* Test Item Value Reference Range Interpretation Comme nts MAGNESIUM (test code = MAG) 1.5 MG/DL 1.6-2.3 L BASIC METABOLIC [id number] 05:59:00* Test Item Value Reference Range Interpretation [...] CALCIUM (test code = CA) MG/DL 8.7-9.7 [id number] 05:59:00* Test Item Value Reference Range Interpretation Comme nts MAGNESIUM (test code = MAG) MG/DL 1.6-2.3 CBC W/AUTO [id number] 05:46:00* Test Item Value Reference Range Interpretation [...] NRBC#) 0.00 K/mm3 0.0-0.1 N BASIC METABOLIC [id number] 13:49:00* Test Item Value Reference Range Interpretation Comme nts SODIUM (test code = NA) 136 MMOL/L 137-145 L POTASSIUM (test code = K) 2.9 MMOL/L 3.5-5.1 L CALLED TO [employer] A.V& READBACK ON 05/05/19 AT 1348 BY [...] code = CA) 9.7 MG/DL 8.4-10.2 N [id number] 13:49:00* Test Item Value Reference Range Interpretation Comme nts MAGNESIUM (test code = MAG) 1.4 MG/DL 1.6-2.3 L BASIC METABOLIC [id number] 13:48:00* Test Item Value Reference Range Interpretation Comme nts SODIUM (test code = NA) 136 MMOL/L 137-145 L POTASSIUM (test code = K) 2.9 MMOL/L 3.5-5.1 L CALLED TO [employer] A.V& READBACK ON 05/05/19 AT 1348 BY [...] code = CA) 9.7 MG/DL 8.4-10.2 N [id number] 13:48:00* Test Item Value Reference Range Interpretation Comme nts MAGNESIUM (test code = MAG) MG/DL 1.6-2.3 - XR CHEST [id number] 13:35:00Patient Name: RACHEAL SABILLON Unit No: [id number] EXAMS: CPT CODE: [id number] XR CHEST 1V 35875 Location of dictation: B2 Portable chest one [...] Balderas M.D. CC: Jose Marc MD Technologist: [facility] STUDENT ; Alhaji Cha, RT(R) Transcrpt Date/Tm/Trnsp: 05/05/2019 (6775) [email or web address] Orig Print D/T: S: 05/05/2019 (7730) [facility] NAME: RACHEAL [id number] PHYS: [place] [address] : 1945 AGE: 73 SEX: F LOC: Z.SI04 A PHONE #: [phone] EXAM DATE: 05/05/2019 STATUS: ADM IN FAX #: [phone] RADIOLOGY NO: PAGE 1 Signed ReportCBC W/AUTO [id number] 13:20:00* Test Item Value Reference Range Interpretation [...] NRBC#) 0.00 K/mm3 0.0-0.1 N ARTERIAL BLOOD [id number] 13:17:00* Test Item Value Reference Range Interpretation [...] (test code = COHBGFFIO2) 60 % PROTHROMBIN [id number] 13:06:00* Test Item Value Reference Range Interpretation [...] recurrent systemic embolism. 3.0 - 4.5 PTT [id number] 13:06:00* Test Item Value Reference Range Interpretation Comme nts PTT ACTIVATED (test code = APTT) 30.4 SECONDS 22.0-33.0 N HIV 12 AB [id number] 13:02:00* Test Item Value Reference Range Interpretation Comme nts HIV 1 2 COMBO AG/AB SCREEN (test code = [id number]) AB/AG NON REACTIVE NONREACTIVE CBC W/AUTO [id number] 12:51:00* Test Item Value Reference Range Interpretation [...] NRBC#) 0.00 K/mm3 0.0-0.1 N BASIC METABOLIC [id number] 12:21:00* Test Item Value Reference Range Interpretation [...] CA) 9.9 MG/DL 8.4-10.2 N BASIC METABOLIC [id number] 12:20:00* Test Item Value Reference Range Interpretation [...] code = CA) MG/DL 8.7-9.7 BASIC METABOLIC [id number] 12:18:00* Test Item Value Reference Range Interpretation [...] code = CA) MG/DL 8.7-9.7 BASIC METABOLIC [id number] 12:17:00* Test Item Value Reference Range Interpretation [...] CA) MG/DL 8.7-9.7 - XR CHEST 2 [id number] 11:39:00Patient Name: RACHEAL SABILLON Unit No: [id number] EXAMS: CPT CODE: [id number] XR CHEST 2 V 32810 LOCATION: T18 EXAM: CHEST 2 VIEWS INDICATION: PRE-OP COMPARISON: Chest x-ray October 01, 2018 TECHNIQU E: PA and lateral chest radiographs. FINDINGS: Lungs are clear bilaterally without effusion. Heart and mediastinum are normal in size and contour. Bones and peripheral soft tissues are unremarkable.IMPRESSION: Lungs are clear. No acute abnormality. at 1139 Reported and signed by: Imani Mueller MD CC: Jose Marc MD Technologist: Jacqueline Jiménez RT (R) Transcrpt Date/Tm/Trnsp: 05/04/2019 (1139) t.[email or web address].[email or web address] Orig Print D/T: S: 05/04/2019 (1142) [facility] NAME: RACHEAL SABILLON [id number] [address] PHYS: [place] [address] : 1945 AGE: 73 SEX: F LOC: SIMONE PHONE #: [phone] EXAM DATE: 05/04/2019 STATUS: PRE [facility] FAX #: [phone] RADIOLOGY NO: PAGE 1 Signed ReportBASIC METABOLIC [id number] 05:09:00* Test Item Value Reference Range Interpretation [...] code = CA) 9.0 MG/DL 8.4-10.2 N [id number] 05:09:00* Test Item Value Reference Range Interpretation Comme nts MAGNESIUM (test code = MAG) 1.8 MG/DL 1.6-2.3 N CBC W/AUTO [id number] 04:46:00* Test Item Value Reference Range Interpretation [...] NRBC#) 0.00 K/mm3 0.0-0.1 N BASIC METABOLIC [id number] 06:03:00* Test Item Value Reference Range Interpretation [...] code = CA) 8.7 MG/DL 8.4-10.2 N [id number] 06:03:00* Test Item Value Reference Range Interpretation Comme nts MAGNESIUM (test code = MAG) 2.1 MG/DL 1.6-2.3 N CBC W/AUTO [id number] 05:32:00* Test Item Value Reference Range Interpretation [...] NRBC#) 0.00 K/mm3 0.0-0.1 N ARTERIAL BLOOD [id number] 12:23:00* Test Item Value Reference Range Interpretation [...] jus result: FT/NC Edited by: MOON on 10/01/18:[id number]: DELIVERY previously reported as: FT/NC ABG TEMPERATURE (test code = TEMPA) 37.0 C >37 ABG SITE (test code = SITEA) AL ALLENS TEST (test code = ALLENS) NA CHECK FIO2 (test code = COHBGFFIO2) 40 % ARTERY,[id number] 11:58:00 RUN DATE: 10/01/18 [place] - LAB PAGE 1 RUN TIME: 1158 Specimen Inquiry RUN USER: INTERFACE PATIENT : RACHEAL SABILLON LOC: ENA U #: [id number] AGE/SX: 72/F ROOM: [facility] RE09/30/18[facility] DR: Rohith Kc MD : 47 BED: A DIS: STATUS: ADM IN TLOC: SPEC #: [id number] RECD: 09/30/18 STATUS: SOUCorey REQ #: [id number] GUS: 09/30/18 [facility] DR: Rohith Kc MD ENTERED: 09/30/18 SP TYPE: ARTERY, PL OTHR DR: Jose Marc MD, Nioti R MD Pepper, Gregory S MDORDERED: DECAL,SURG PATH LVL 3, SURG PATH LVL 4 CODES: N43453 - PLAQUE, NOS K20968 - ARTERY, NOS E48387 Q71190 - CAROTID ARTERY ATHEROSCLEROSIS K53066 [id number] - CERVIX EXCISIONAL BIOP GX6640 - LYMPH NODE, NOS COPIES TO: Jose Marc MD [address] [place] [address] [address] [place] [address] [email or web address] [address] [place] [address] [place] [address] [facility] [address] [place] [address] [place] [address] [facility] [address] [place], [place] [id number] ICD CODES: 440 - PROCEDURES: DECAL (10/01/18) SURG PATH LVL 3 (09/30/18) SURG PATH LVL 4 (09/30/18) TISSUES: A. ARTERY, NOS - RT ARTERY PLAQUE B. LYMPH NODE, NOS - RT CERVICAL LYMPH NODE CONTINUED ON NEXT PAGE RUN DATE: 10/01/18 [place] - LAB PAGE 2 RUN TIME: 1158 Specimen Inquiry RUN USER: INTERFACE SPEC #: [id number] PATIENT: RACHEAL SABILLON #[id number] (Continued ) CLINICAL HISTORY RIGHT INTERNAL CAROTID ARTERY STENOSIS CPT CODES CPT CODE(S): 06072 , 61496 , 57198 , ,, , FINAL DIAGNOSIS A. Plaque, right carotid [...] 1158 END OF REPORT - XR CHEST [id number] 07:45:00Patient Name: RACHEAL SABILLON Unit No: [id number] EXAMS: CPT CODE: [id number] XR CHEST 1V [id number]: - XR CHEST 1V. LOCATION: B2. HISTORY: [...] t.[email or web address] Orig Print D/T: S: 10/01/2018 (0748) [facility] NAME: RACHEAL SABILLON [address] PHYS: [place] [address] : 1945 AGE: 72 SEX: F LOC: Z.SI07 A PHONE #: [phone] EXAM DATE: 10/01/2018 STATUS: ADM IN FAX #: [phone] RADIOLOGY NO: PAGE 1 Signed ReportBASIC METABOLIC [id number] 05:58:00* Test Item Value Reference Range Interpretation [...] code = CA) 8.7 MG/DL 8.4-10.2 N [id number] 05:58:00* Test Item Value Reference Range Interpretation Comme nts MAGNESIUM (test code = MAG) 1.7 MG/DL 1.6-2.3 N CBC W/AUTO [id number] 05:30:00* Test Item Value Reference Range Interpretation [...] code = NRBC#) 0.00 K/mm3 0.0-0.1 N [id number] 22:38:00* Test Item Value Reference Range Interpretation Comme nts POTASSIUM (test code = K) 3.3 MMOL/L 3.5-5.1 L [id number] 22:38:00* Test Item Value Reference Range Interpretation Comme nts MAGNESIUM (test code = MAG) 1.7 MG/DL 1.6-2.3 ARTERIAL BLOOD [id number] 17:57:00* Test Item Value Reference Range Interpretation [...] code = COHBGFFIO2) 40 % BASIC METABOLIC [id number] 16:18:00* Test Item Value Reference Range Interpretation [...] code = CA) 8.9 MG/DL 8.4-10.2 N [id number] 16:18:00* Test Item Value Reference Range Interpretation Comme nts MAGNESIUM (test code = MAG) 1.3 MG/DL 1.6-2.3 L CBC W/AUTO [id number] 16:06:00* Test Item Value Reference Range Interpretation [...] 0.00 K/mm3 0.0-0.1 N - XR CHEST [id number] 15:29:00Patient Name: RACHEAL SABILLON Unit No: [id number] EXAMS: CPT CODE: [id number] XR CHEST 1V 21799QVED: CHEST ONE VIEW INDICATION: Postop LOCATION: B2 [...] Orig Print D/T: S: 09/30/2018 (1532) [facility] NAME: RACHEAL SABILLON [address] PHYS: [place] [address] : 1945 AGE: 72 SEX: F LOC: Z.SI07 A PHONE #: [phone] EXAM DATE: 09/30/2018 STATUS: ADM IN FAX #: [phone] RADIOLOGY NO: PAGE 1 Signed ReportHIV 12 AB [id number] 19:14:00* Test Item Value Reference Range Interpretation Comme nts AB HIV 1 2 (test code = AHV61PN) NON REACTIVE NON-REAC NOTE: A NONREACT LINETTE RESULT INDICATES THAT HIV-1 AND HIV-2ANTIBODIES HAVE NOT BEEN FOUND IN THIS PATIENT SPECIMEN. ANON-REACTIVE RESULT, HOWEVER, DOES NOT PRECLUDE PREVIOUSEXPOSURE OR INFECTION WITH HIV1. AG HIV1 P24 (test code = ORR3J86) NON REACTIVE NONE REAC PROTHROMBIN [id number] 14:22:00* Test Item Value Reference Range Interpretation Comme [facility] PROTHROMBIN TIME PATIENT (test [...] recurrent systemic embolism. 3.0 - 4.5 PTT [id number] 14:22:00* Test Item Value Reference Range Interpretation Comme [facility] PTT ACTIVATED (test code = APTT) 29.3 SECONDS 22.0-33.0 N BASIC METABOLIC [id number] 14:18:00* Test Item Value Reference Range Interpretation [...] MG/DL 8.4-10.2 N - XR CHEST 2 [id number] 14:14:00Patient Name: RACHEAL SABILLON Unit No: [id number] EXAMS: CPT CODE: [id number] XR CHEST 2 V [id number] EXAM: CHEST 2 VIEWS INDICATION: PRE-OP LOCATION: [...] (1414) 16 Orig Print D/T: S: 09/29/2018 (3457) [facility] NAME: RACHEAL SABILLON [address] PHYS: [place] [address] : 1945 AGE: 72 SEX: F LOC: Z.3AHU PHONE #: [phone] EXAM DATE: 09/29/2018 STATUS: PRE IN FAX #: [phone] RADIOLOGY NO: PAGE 1 Signed ReportCBC W/AUTO [id number] 13:57:00* Test Item Value Reference Range Interpretation [...] NRBC#) 0.00 K/mm3 0.0-0.1 N BASIC METABOLIC [id number] 06:04:00* Test Item Value Reference Range Interpretation [...] mg/dL HIGH.........160-189 mg/dL VERY HIGH.........>/= 190 mg/dL [id number] 06:04:00* Test Item Value Reference Range Interpretation Comme nts MAGNESIUM (test code = MAG) 1.9 MG/DL 1.6-2.3 N PROTHROMBIN [id number] 06:00:00* Test Item Value Reference Range Interpretation [...] systemic embolism. 3.0 - 4.5 Comments to [place]: WILL BRING TO LABPTT [id number] 06:00:00* Test Item Value Reference Range Interpretation Comme nts PTT ACTIVATED (test code = APTT) 29.3 SECONDS 22.0-33.0 N Comments to [place]: WILL BRING TO LABBASIC METABOLIC [id number] 05:54:00* Test Item Value Reference Range Interpretation [...] LDL (test code = LDL) MG/DL 0-99 [id number] 05:54:00* Test Item Value Reference Range Interpretation Comme nts MAGNESIUM (test code = MAG) 1.9 MG/DL 1.6-2.3 N CBC W/AUTO [id number] 05:41:00* Test Item Value Reference Range Interpretation [...] 0.0-0.1 N Notes Date/Time Note Provider Source Drake Prince [facility]2020-03-04 23:33:025726-4737 [place] [address] PATIENT NAME: RACHEAL SABILLON ADMIT DATE: 05/05/19 ACCOUNT NO: [id number] ROOM NO: Z.SI04 AGE: 73 REPORT TYPE: [...] weeks, also to follow up with her hydramatic mechanic, Dr. Marc. 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 TENDER: alert, no motor deficits Diagnosis, Assessment Plan [...] BP control DW family at 1731 RPT #:[id number] END OF [id number] 06:42:00 [facility] ([facility]) Cardiology Progress Note REPORT#:[id number] REPORT STATUS: Signed DATE:05/07/19 TIME: 06 PATIENT: RACHEAL SABILLON UNIT #: [id number] [address] AGE: 73 SEX: F [...] 19 129/79 99 99 05/06 2210 98.0 05/060 88 17 145/83 109 92 05/06 2100 [...] 0800 82 14 100 05/06 0749 Nasal 2.048276 cannula 05/06 0745 83 19 100 05/06 0724 99 Nasal 2.268293 28 cannula 05/06 0700 97.9 05/06 0700 [...] no edema Musculoskeletal: full range of motion Neuro/EMBLEM FUSER TENDER: alert, oriented X 3, CN II-XII intact [...] (Auto) (14 - 44 %) 13.3 L [place] % (Auto) (4 - 13 %) 12.3 Eos % (Auto) (0 - 6 %) 0.2 Baso % (Auto) (0 - 2 %) 0.1 Neut # (Auto) (2.0 - 7.6 K/mm3) 8.72 H Lymph # (Auto) (1.0 - 3.8 K/mm3) 1.57 Preble # (Auto) (0.1 - 0.8 K/mm3) 1.45 [...] cardiac stable. Ambualte IS at 1913 RPT #:[id number] END OF [id number] 19:18:00 [facility] ([facility]) Hospitalist Progress Note REPORT#:[id number] REPORT STATUS: Signed DATE:05/06/19 TIME: 1917 PATIENT: RACHEAL SABILLON UNIT #: [id number] ROOM/BED: [address] : [birth year] AGE: 73 SEX: F [...] 0800 82 14 100 05/06 0749 Nasal 2.067054 cannula 05/06 0745 83 19 100 05/06 0724 99 Nasal 2.842268 28 cannula 05/06 0700 97.9 05/06 0700 [...] 1945 86 40 94 05/05 1940 Nasal 2.006106 cannula 05/05 1930 67 14 98 24 [...] bowel sounds Extremities: moves all, no clubbing Neuro/EMBLEM FUSER TENDER: alert, no motor deficits Diagnosis, Assessment Plan [...] early this am No chest pain at 1921 RPT #:[id number] END OF [id number] 05:44:062913-[address] [address] PATIENT NAME: RACHEAL SABILLON ADMIT DATE: 05/05/19 ACCOUNT NO: [id number] ROOM NO: [facility] AGE: 73 REPORT TYPE: ELECTROCARDIOGRAM SEX: F ADMITTING PHYSICIAN:Rohith Kc MD ATTENDING PHYSICIAN:Rohith Kc MD Order: [id number] Test Reason : CAD Test Date/Time Stamp: [...] MARC at 0653 PATIENT NAME: RACHEAL SABILLON 05:34:00 [facility] ([facility]) Cardiology Progress Note REPORT#:[id number] REPORT STATUS: Signed DATE:05/06/19 TIME: 0534 PATIENT: RACHEAL SABILLON UNIT #: [id number] [address] AGE: 73 SEX: F [...] 1945 86 40 94 05/05 1940 Nasal 2.402101 cannula 05/05 1930 67 14 98 05/05 1915 73 19 95 05/05 1900 76 18 93 05/05 1845 70 05/05 1830 89 96 05/05 1815 97 Nasal 2.113271 28 cannula 05/05 1815 63 23 94 05/05 1800 68 15 93 05/05 1745 67 17 94 05/05 1730 67 94 05/05 1715 74 100 05/05 1700 72 100 05/05 1645 80 21 93 05/05 1630 70 17 100 05/05 1615 73 24 100 05/05 1600 69 20 100 05/05 1600 97.8 75 20 100 Nasal 3.443669 cannula 05/05 1545 71 22 100 05/05 1530 69 19 100 05/05 1515 64 100 05/05 1500 70 100 05/05 1445 70 26 100 05/05 1430 66 14 100 05/05 1415 71 100 05/05 1400 75 100 05/05 1358 100 Nasal 2.332654 28 cannula 05/05 1345 68 17 100 05/05 1330 Aerosol 10.604482 60 mask 05/05 1330 79 100 05/05 1315 97.7 66 18 100 Aerosol 10.602707 60 mask 05/05 1315 75 17 100 05/05 1310 77 15 100 05/05 1242 100 Face mist 10.685564 60 tent 05/05 0550 97.1 70 18 [...] Sulfate 0 .STK-MED ONE .ROUTE (DC) Rocuronium [place] 0 .STK-MED ONE .ROUTE (DC) Calcium Chloride [...] no edema Musculoskeletal: full range of motion Neuro/EMBLEM FUSER TENDER: alert, oriented X 3, CN II-XII intact [...] (Auto) (14 - 44 %) 13.2 L [place] % (Auto) (4 - 13 %) 5.7 Eos % (Auto) (0 - 6 %) 2.7 Baso % (Auto) (0 - 2 %) 0.3 Neut # (Auto) (2.0 - 7.6 K/mm3) 5.95 Lymph # (Auto) (1.0 - 3.8 K/mm3) 1.01 Preble # (Auto) (0.1 - 0.8 K/mm3) 0.44 [...] Report Impression - Status: SIGNED Entered: 05/05/2019 4329 IMPRESSION: 1. Status post left carotid endarterectomy. 2. Right lower lobe atelectasis. Impression By: Sunny Balderas M.D. Diagnosis, Assessment Plan Free Text DxA P Notes Free Text DxA P Notes: IMP: Carotid disease s/p left CEA HTN CAD HLP PLAN: Continue current medical rx. Review labs Replace lytes as needed. Ambualte IS at 0709 RPT #:[id number] END OF [id number] 17:59:514653-[address] [address] PATIENT NAME: RACHEAL SABILLON ADMIT DATE: 05/05/19 ACCOUNT NO: [id number] ROOM NO: [facility] AGE: 73 REPORT TYPE: CONSULTATION REPORT SEX: [...] By: David Irving MD WT: CON:GERARDO/CALVIN/ANATOLY Conf#: [id number]/DID#: [id number] Authenticated by David Irving MD On 05/08/2019 05:26:56 PM at 1727 PATIENT NAME: RACHEAL SABILLON 16:25:00 [facility] ([facility] Cardiology Progress Note REPORT#:[id number] REPORT STATUS: Signed DATE:05/05/19 TIME: 1625 PATIENT: RACHEAL SABILLON UNIT #: [id number] ROOM/BED: [address] : [birth year] AGE: 73 SEX: F [...] Mean Ox Delivery Rate 05/05 1330 Aerosol 10.540182 60 mask 05/05 1330 79 100 05/05 1315 97.7 66 18 100 Aerosol 10.219505 60 mask 05/05 1315 75 17 100 [...] Sulfate 0 .STK-MED ONE .ROUTE (DC) Rocuronium [place] 0 .STK-MED ONE .ROUTE (DC) Calcium Chloride [...] no edema Musculoskeletal: full range of motion Neuro/EMBLEM FUSER TENDER: alert, oriented X 3, CN II-XII intact [...] (Auto) (14 - 44 %) 13.2 L [place] % (Auto) (4 - 13 %) 5.7 Eos % (Auto) (0 - 6 %) 2.7 Baso % (Auto) (0 - 2 %) 0.3 Neut # (Auto) (2.0 - 7.6 K/mm3) 5.95 Lymph # (Auto) (1.0 - 3.8 K/mm3) 1.01 Preble # (Auto) (0.1 - 0.8 K/mm3) 0.44 [...] Home medicatons Ambualte IS at 0529 RPT #:[id number] END OF [id number] 13:29:184925-[address] [address] PATIENT NAME: RACHEAL SABILLON ADMIT DATE: 05/05/19 ACCOUNT NO: [id number] ROOM NO: [facility] AGE: 73 REPORT TYPE: ELECTROCARDIOGRAM SEX: F ADMITTING PHYSICIAN:Rohith cK MD ATTENDING PHYSICIAN:Rohith Kc MD Order: [id number] Test Reason : post op Test Date/Time [...] MARC at 1606 PATIENT NAME: RACHEAL SABILLON 12:37:00 [facility] ([facility]) Brief Op Note REPORT#:[id number] REPORT STATUS: Signed DATE:05/05/19 TIME: 1237 PATIENT: RACHEAL SABILLON UNIT #: [id number] ROOM/BED: : 46 AGE: 73 SEX: F ATTEND: Rohith Kc MD ADM AUTHOR: Rohith Kc MD * ALL edits or amendments must be made on the electronic/computer document * Op/Inv Proc Note - Brief ORM Surgeries: Surgery Date and Time: 05/05/2019 0930 Primary Procedure: LEFT CAROTID ENDARTERECTOMY Pre-procedure diagnosis: Left internal carotid artery stenosis Post-procedure diagnosis: same as pre procedure dx Procedures performed: Left carotid endarterectomy with hemshield patch arterioplasty Insertion of right subclavian central line using sonosite US guidance Primary Surgeon: Rohith Kc Document Control Assistant(s): Brisa Desai PA-C Anesthesiologist: Dr. Bandar Geronimo CRNA Anesthesia: general anesthesia Findings: See detailed op report Complications: none Estimated blood loss in ml's: 150cc Specimens removed/altered: left carotid plaque Drain(s): Spencer Catheter Placed, BLAKE drain Disposition: ICU, stable at 1239 RPT #:[id number] END OF [id number] 12:32:688000-[address] [address] PATIENT NAME: RACHEAL SABILLON ADMIT DATE: 05/05/19 ACCOUNT NO: [id number] ROOM NO: [facility] AGE: 73 REPORT TYPE: OPERATIVE REPORT SEX: F ADMITTING PHYSICIAN:Rohith Kc MD ATTENDING PHYSICIAN:Rohith Kc MD OPERATION DATE: 05/05/2019 CARDIAC SURGERY SERVICE PREOPERATIVE DIAGNOSES: Left internal carotid stenosis. POSTOPERATIVE DIAGNOSIS: Left internal carotid stenosis. PROCEDURE: Right CVP insertion, ultrasound-guided access with SonoSite, right subclavian vein, left carotid endarterectomy, and Hemashield patch arterioplasty. SURGEON: Rohith Kc MD CHIEF DEPUTY CORONER: Brisa Moser PA-C ANESTHESIA: General. COMPLICATIONS: None. [...] condition. Dictated By: Rohith Kc MD WT: OP:GERARDO/ISAÍAS/NTS Conf#: [id number]/DID#: [id number] cc: Jose Marc MD Authenticated by Rohith Kc MD On 05/17/2019 01:22:07 PM at 1322 PATIENT NAME: RACHEAL SABILLON 10:28:933638-1470 [place] [address] PATIENT NAME: RACHEAL SABILLON ADMIT DATE: ACCOUNT NO: [id number] ROOM NO: AGE: 73 REPORT TYPE: ELECTROCARDIOGRAM SEX: F ADMITTING PHYSICIAN: ATTENDING PHYSICIAN:Rohith Kc MD Order: [id number] Test Reason : PRE-OP Test Date/Time Stamp: [...] has decreased BY 33 BPM Confirmed by MAXWELL COLÓN MD ([id number]) on 05/04/2019 12:18:13 PM Referred By: Rohith Kc Confirmed by:MAXWELL COLÓN MD at 1218 PATIENT NAME: RACHEAL SABILLON 10:28:581693-7699 [place] [id number] PATIENT NAME: RACHEAL SABILLON ADMIT DATE: ACCOUNT NO: [id number] ROOM NO: AGE: 73 REPORT TYPE: ELECTROCARDIOGRAM SEX: F ADMITTING PHYSICIAN: ATTENDING PHYSICIAN:Rohith Kc MD Order: [id number] Test Reason : PRE-OP Test Date/Time Stamp: [...] MARC at 1711 PATIENT NAME: RACHEAL SABILLON 21:37:625670-2031 [place] [address] PATIENT NAME: RACHEAL SABILLON ADMIT DATE: 09/30/18 ACCOUNT NO: [id number] ROOM NO: Z.SI07 AGE: 73 REPORT TYPE: DISCHARGE SUMMARY REPORT SEX: F ADMITTING PHYSICIAN:Rohith Kc MD ATTENDING PHYSICIAN:Rohith Kc MD ADMISSION DATE: 09/30/2018 DISCHARGE DATE: 10/04/2018 [...] for Rohith Kc MD WT: DS:GERARDO/KIM/ANATOLY Conf#: [id number]/DID#: [id number] Authenticated by RADHA Morton On 11/18/2018 08:54:11 PM Authenticated by Rohith Kc MD On 11/18/2018 10:06:10 PM PATIENT NAME: RACHEAL SABILLON at 2205 at 220 PATIENT NAME: RACHEAL SABILLON 08:46:00 [facility] Cardiovascular Surgery Prog REPORT#:[id number] REPORT STATUS: Signed DATE:10/04/18 TIME: 845 PATIENT: RACHEAL SABILLON UNIT #: [id number] ROOM[address]BED: [address] : [birth year] AGE: 72 SEX: F [...] Resp 30 10/03 1818 O2 Flow Rate 2.120367 10/03 0715 24 hour I O ending [...] no spencer Extremities: moves all, no edema Neuro/EMBLEM FUSER TENDER: alert, oriented X 3, CNII-XII intacte, normal [...] well controlled CM consult for home with [facility] Plan: D/c planning home with [facility] today when VS is stable and pt is ready. Follwo up with Dr. Kc after 1-2 weeks in the clinic. Plan discussed with: patient, collaborating MD (DR. Kc) at 1921 RPT #:[id number] END OF [id number] 08:46:00 [facility] ([facility]) Cardiovascular Surgery Prog REPORT#:[id number] REPORT STATUS: Signed DATE:10/04/18 TIME: 0846 PATIENT: RACHEAL SABILLON UNIT #: [id number] ROOM/BED: [address] : [birth year] AGE: 72 SEX: F [...] Resp 30 10/03 1818 O2 Flow Rate 2.708351 10/03 0715 24 hour I O ending [...] no spencer Extremities: moves all, no edema Neuro/EMBLEM FUSER TENDER: alert, oriented X 3, CNII-XII intacte, normal [...] well controlled CM consult for home with [facility] Plan: D/c planning home with [facility] today when VS is stable and pt is ready. Follwo up with Dr. Kc after 1-2 weeks in the clinic. Plan discussed with: patient, collaborating MD (DR. Kc) at 1921 at 1923 RPT #:[id number] END OF [id number] 08:33:486024-[address] [address] PATIENT NAME: RACHEAL SABILLON ADMIT DATE: 09/30/18 ACCOUNT NO: [id number] ROOM NO: [facility] AGE: 72 REPORT TYPE: ELECTROCARDIOGRAM SEX: F ADMITTING PHYSICIAN:Rohith Kc MD ATTENDING PHYSICIAN:Rohith Kc MD Order: [id number] Test Reason : CAD Test Date/Time Stamp: [...] MARC at 1011 PATIENT NAME: RACHEAL SABILLON 06:13:00 [facility] ([facility]) Cardiology Progress Note REPORT#:[id number] REPORT STATUS: Signed DATE:10/04/18 TIME: 612 PATIENT: RACHEAL SABILLON UNIT #: [id number] ROOM/BED: [address] : 46 AGE: 72 SEX: F ATTEND: Rohith Kc MD ADM AUTHOR: Jose Marc MD [...] 99 10/03 0715 98.4 10/03 0715 Nasal 2.344727 cannula 10/03 0700 87 17 123/77 95 [...] peripheral pulses Musculoskeletal: full range of motion Neuro/EMBLEM FUSER TENDER: alert, oriented X 3, CN II-XII intact, [...] current medications Home today at 1021 RPT #:[id number] END OF [id number] 17:54:00 [facility] ([facility] Hospitalist Progress Note REPORT#:[id number] REPORT STATUS: Signed DATE:10/03/18 TIME: 1754 PATIENT: RACHEAL SABILLON UNIT #: [id number] ROOM/BED: [address] : [birth year] AGE: 72 SEX: F [...] pre-existing hx of HTN at 1312 RPT #:[id number] END OF [id number] 11:59:00 [facility] Cardiovascular Surgery Prog REPORT#:[id number] REPORT STATUS: Signed DATE:10/03/18 TIME: 1159 PATIENT: RACHEAL SABILLON UNIT #: [id number] ROOM/BED: [address] : [birth year] AGE: 72 SEX: F [...] 95 10/03 1101 O2 Delivery Room air 06/21 1043 Temp 36.7 10/03 1043 O2 Flow Rate 2.920931 10/03 0715 FiO2 28 10/02 2005 24 [...] no spencer Extremities: moves all, no edema Neuro/EMBLEM FUSER TENDER: alert, oriented X 3, CNII-XII intacte, normal [...] (Auto) (14 - 44 %) 10.5 L [place] % (Auto) (4 - 13 %) 12.9 Eos % (Auto) (0 - 6 %) 0.5 Baso % (Auto) (0 - 2 %) 0.2 Neut # (Auto) (2.0 - 7.6 K/mm3) 9.00 H Lymph # (Auto) (1.0 - 3.8 K/mm3) 1.25 Preble # (Auto) (0.1 - 0.8 K/mm3) 1.54 [...] well controlled CM consult for home with [facility] Plan: D/c planning home with [facility] today or dexter. when VS is stable and pt is ready. RN reported that pt desaturate to O2 sat 90%'s-95%'s while resting. Then after walking she desat 90%'s. While sleeping pt O2 sat running between 88%-92%. Consulted CM for home oxygen to go home with. CM is following. Discussed with Dr. Kc. Plan discussed with: patient, collaborating MD (Dr. Kc) at 1236 RPT #:[id number] END OF [id number] 11:59:00 [facility] ([facility]) Cardiovascular Surgery Prog REPORT#:[id number] REPORT STATUS: Signed DATE:10/03/18 TIME: 1159 PATIENT: RACHEAL SABILLON UNIT #: [id number] ROOM/BED: [address] : [birth year] AGE: 72 SEX: F [...] Temp 36.7 10/03 1043 O2 Flow Rate [id number] 10/03 0715 FiO2 28 10/02 2005 25 [...] no spencer Extremities: moves all, no edema Neuro/EMBLEM FUSER TENDER: alert, oriented X 3, CNII-XII intacte, normal [...] (Auto) (14 - 44 %) 10.5 L Preble % (Auto) (4 - 13 %) 12.9 Eos % (Auto) (0 - 6 %) 0.5 Baso % (Auto) (0 - 2 %) 0.2 Neut # (Auto) (2.0 - 7.6 K/mm3) 9.00 H Lymph # (Auto) (1.0 - 3.8 K/mm3) 1.25 Preble # (Auto) (0.1 - 0.8 K/mm3) 1.54 [...] well controlled CM consult for home with [facility] Plan: D/c planning home with [facility] today or dexter. when VS is stable [...] Discussed with Dr. Kc. at 1543 RPT #:[id number] END OF [id number] 11:59:00 [facility] Cardiovascular Surgery Prog REPORT#:[id number] REPORT STATUS: Signed DATE:10/03/18 TIME: 1159 PATIENT: RACHEAL SABILLON UNIT #: [id number] ROOM/BED: [address] : [birth year] AGE: 72 SEX: F [...] Temp 36.7 10/03 1043 O2 Flow Rate [id number] 10/03 0715 FiO2 28 10/02 2005 25 [...] no spencer Extremities: moves all, no edema Neuro/EMBLEM FUSER TENDER: alert, oriented X 3, CNII-XII intacte, normal [...] (Auto) (14 - 44 %) 10.5 L Preble % (Auto) (4 - 13 %) 12.9 Eos % (Auto) (0 - 6 %) 0.5 Baso % (Auto) (0 - 2 %) 0.2 Neut # (Auto) (2.0 - 7.6 K/mm3) 9.00 H Lymph # (Auto) (1.0 - 3.8 K/mm3) 1.25 Preble # (Auto) (0.1 - 0.8 K/mm3) 1.54 [...] well controlled CM consult for home with [facility] Plan: D/c planning home with [facility] today or dexter. when VS is stable [...] for Rohith Kc MD at 1623 RPT #:[id number] END OF [id number] 11:59:00 [facility] ([facility]) Cardiovascular Surgery Prog REPORT#:[id number] REPORT STATUS: Signed DATE:10/03/18 TIME: 1159 PATIENT: RACHEAL SABILLON UNIT #: [id number] ROOM/BED: [facility] : 46 AGE: 72 SEX: F [...] Temp 36.7 10/03 1043 O2 Flow Rate [id number] 10/03 0715 FiO2 28 10/02 2005 25 [...] no spencer Extremities: moves all, no edema Neuro/EMBLEM FUSER TENDER: alert, oriented X 3, CNII-XII intacte, normal [...] (Auto) (14 - 44 %) 10.5 L Preble % (Auto) (4 - 13 %) 12.9 Eos % (Auto) (0 - 6 %) 0.5 Baso % (Auto) (0 - 2 %) 0.2 Neut # (Auto) (2.0 - 7.6 K/mm3) 9.00 H Lymph # (Auto) (1.0 - 3.8 K/mm3) 1.25 Preble # (Auto) (0.1 - 0.8 K/mm3) 1.54 [...] well controlled CM consult for home with [facility] Plan: D/c planning home with [facility] today or dexter. when VS is stable [...] Addendum 1: 10/03/18 1541 by Ladi Guido COMMUNICABLE DISEASE SPECIALIST 1520 RN reported pt BP dropped SBP 80's-70's pt is asymptomatic, denies CP, dizziness or headache. Ordered IV bolus NSS. BP came back up to 116/78. Will continue to monitor. Family at the bedside. Will hold the plan for discharge today. Discussed with Dr. Kc. at 1543 at 1927 Addendum 2: 10/03/18 1622 by Ladi Guido NP at 1623 at 1927 RPT #:[id number] END OF [id number] 11:59:00 [facility] Cardiovascular Surgery Prog REPORT#:[id number] REPORT STATUS: Signed DATE:10/03/18 TIME: 1159 PATIENT: RACHEAL SABILLON UNIT #: [id number] ROOM/BED: [address] : [birth year] AGE: 72 SEX: F [...] Temp 36.7 10/03 1043 O2 Flow Rate 2.237920 10/03 0715 FiO2 28 10/02 2005 24 [...] no spencer Extremities: moves all, no edema Neuro/EMBLEM FUSER TENDER: alert, oriented X 3, CNII-XII intacte, normal [...] (Auto) (14 - 44 %) 10.5 L Preble % (Auto) (4 - 13 %) 12.9 Eos % (Auto) (0 - 6 %) 0.5 Baso % (Auto) (0 - 2 %) 0.2 Neut # (Auto) (2.0 - 7.6 K/mm3) 9.00 H Lymph # (Auto) (1.0 - 3.8 K/mm3) 1.25 Preble # (Auto) (0.1 - 0.8 K/mm3) 1.54 [...] well controlled CM consult for home with [facility] Plan: D/c planning home with [facility] today or dexter. when VS is stable [...] Addendum 1: 10/03/18 1541 by Ladi Guido COMMUNICABLE DISEASE SPECIALIST 1520 RN reported pt BP dropped SBP 80's-70's pt is asymptomatic, denies CP, dizziness or headache. Ordered IV bolus NSS. BP came back up to 116/78. Will continue to monitor. Family at the bedside. Will hold the plan for discharge today. Discussed with Dr. Kc. at 1543 at 1927 Addendum 2: 10/03/18 1622 by Ladi Guido NP at 1623 at 1927 RPT #:[id number] END OF [id number] 18:27:00 [facility] ([facility]) Cardiology Progress Note REPORT#:[id number] REPORT STATUS: Signed DATE:10/02/18 TIME: 1826 PATIENT: RACHEAL SABILLON UNIT #: [id number] ROOM/BED: [address] : [birth year] AGE: 72 SEX: F [...] 06/20 1430 76 15 130/63 90 100 / 1400 77 18 162/74 106 95 /20 1330 92 156/74 106 89 /20 1300 75 26 140/65 92 95 06/20 1230 66 19 105/59 77 99 06/20 1215 100 Nasal 2.551058 cannula 10/02 1200 67 18 99/60 74 98 /20 1130 72 23 102/59 76 97 /20 1100 78 110/73 88 98 /20 1045 17 20 1030 68 16 132/67 93 99 06/20 1000 70 23 126/71 93 94 06/20 0930 80 148/67 97 72 06/20 0900 80 142/102 117 06/20 0845 20 06/20 0830 66 19 128/65 91 06/20 0800 84 19 146/76 103 06/20 0730 97.6 06/20 0730 Nasal 2.276283 cannula 10/02 0730 77 147/76 106 91 /20 0700 71 26 152/74 105 98 06/20 0530 60 16 108/55 78 100 / 0500 60 13 127/73 94 100 / 0430 59 13 108/62 79 100 10/02 0400 97.8 10/02 0346 63 15 134/79 101 100 10/02 0300 83 17 97 10/02 0230 71 28 131/67 93 96 10/02 [...] 16 101/55 73 98 10/01 2220 Nasal 3.538993 cannula 10/01 2200 97.7 10/01 2200 73 [...] no edema Musculoskeletal: full range of motion Neuro/EMBLEM FUSER TENDER: alert, oriented X 3, CN II-XII intact [...] (Auto) (14 - 44 %) 11.9 L Preble % (Auto) (4 - 13 %) 11.2 Eos % (Auto) (0 - 6 %) 0.7 Baso % (Auto) (0 - 2 %) 0.2 Neut # (Auto) (2.0 - 7.6 K/mm3) 8.79 H Lymph # (Auto) (1.0 - 3.8 K/mm3) 1.38 Preble # (Auto) (0.1 - 0.8 K/mm3) 1.30 [...] Ambulate Continue current medications. at 1620 RPT #:[id number] END OF [id number] 15:22:00 [facility] ([facility]) Hospitalist Progress Note REPORT#:[id number] REPORT STATUS: Signed DATE:10/02/18 TIME: 1522 PATIENT: RACHEAL SABILLON UNIT #: [id number] ROOM/BED: [address] : [birth year] AGE: 72 SEX: F [...] O2 Flow FiO2 Mean Ox Delivery Rate 06 1215 100 Nasal 2.986492 cannula 06/ 1000 70 23 126/71 93 94 06/20 0930 80 148/67 97 72 06/20 0900 80 142/102 117 06/20 0845 20 06/20 0830 66 19 128/65 91 06/20 0800 84 19 146/76 103 06/20 0730 97.6 06/20 0730 Nasal 2.693660 cannula 10/02 0730 77 147/76 106 91 [...] 06/19 2330 70 16 129/62 89 97 06/ 2300 71 15 121/67 89 98 06/19 2230 69 16 101/55 73 98 06/19 2220 Nasal 3.467451 cannula 10/01 2200 97.7 06/ 2200 73 20 136/68 96 97 06/19 [...] 06/19 1600 90 22 153/81 109 97 10/01 [...] affect, normal judgment/insight Results Findings/Data: Laboratory Tests 06/20 0515 Chemistry Sodium (137 - 145 MMOL/L) [...] (Auto) (14 - 44 %) 11.9 L Preble % (Auto) (4 - 13 %) 11.2 Eos % (Auto) (0 - 6 %) 0.7 Baso % (Auto) (0 - 2 %) 0.2 Neut # (Auto) (2.0 - 7.6 K/mm3) 8.79 H Lymph # (Auto) (1.0 - 3.8 K/mm3) 1.38 Preble # (Auto) (0.1 - 0.8 K/mm3) 1.30 [...] pre-existing hx of HTN at 1526 RPT #:[id number] END OF [id number] 09:58:00 [facility]) Cardiovascular Surgery Prog REPORT#:[id number] REPORT STATUS: Signed DATE:10/02/18 TIME: 09 PATIENT: RACHEAL SABILLON UNIT #: [id number] ROOM/BED: [address] : [birth year] AGE: 72 SEX: F [...] Nasal cannula 10/01 2220 O2 Flow Rate 3.672432 10/01 2220 FiO2 28 10/01 1442 24 [...] no spencer Extremities: moves all, no edema Neuro/EMBLEM FUSER TENDER: alert, oriented X 3, CNII-XII intacte, normal [...] (Auto) (14 - 44 %) 11.9 L Preble % (Auto) (4 - 13 %) 11.2 Eos % (Auto) (0 - 6 %) 0.7 Baso % (Auto) (0 - 2 %) 0.2 Neut # (Auto) (2.0 - 7.6 K/mm3) 8.79 H Lymph # (Auto) (1.0 - 3.8 K/mm3) 1.38 Preble # (Auto) (0.1 - 0.8 K/mm3) 1.30 [...] b/p today. CM consult for home with [facility] plan: D/c planning home with [facility] tentatively saturday or saturday. Orders: Procedure Date/time Status CASE MANAGEMENT CONSULT 10/03 1839 Active Plan discussed with: patient, collaborating MD (Dr. Kc) at 2031 RPT #:[id number] END OF [id number] 09:58:00 [facility] ([facility]) Cardiovascular Surgery Prog REPORT#:[id number] REPORT STATUS: Signed DATE:10/02/18 TIME: 09 PATIENT: RACHEAL SABLILON UNIT #: [id number] ROOM/BED: [address] : [birth year] AGE: 72 SEX: F [...] Nasal cannula 10/01 2220 O2 Flow Rate 3.665072 10/01 2220 FiO2 28 10/01 1442 24 [...] no spencer Extremities: moves all, no edema Neuro/EMBLEM FUSER TENDER: alert, oriented X 3, CNII-XII intacte, normal gait, normal speech, no motor deficits, no sensory deficits, Tongue is midline without deviation Results Findings/Data: Laboratory Tests 10/02 0515 Chemistry [...] (Auto) (14 - 44 %) 11.9 L Preble % (Auto) (4 - 13 %) 11.2 Eos % (Auto) (0 - 6 %) 0.7 Baso % (Auto) (0 - 2 %) 0.2 Neut # (Auto) (2.0 - 7.6 K/mm3) 8.79 H Lymph # (Auto) (1.0 - 3.8 K/mm3) 1.38 Preble # (Auto) (0.1 - 0.8 K/mm3) 1.30 [...] b/p today. CM consult for home with [facility] plan: D/c planning home with [facility] tentatively saturday or saturday. Orders: Procedure Date/time Status CASE MANAGEMENT CONSULT 10/03 1839 Active Plan discussed with: patient, collaborating MD (Dr. Kc) at 2031 at 1929 RPT #:[id number] END OF [id number] 18:45:00 [facility] ([facility]) Cardiology Progress Note REPORT#:[id number] REPORT STATUS: Signed DATE:10/01/18 TIME: 1844 PATIENT: RACHEAL SABILLON UNIT #: [id number] ROOM/BED: [address] : [birth year] AGE: 72 SEX: F [...] 99.0 90 24 166/77 106 100 Nasal 3.380827 cannula 10/01 1503 85 23 99 06/19 1500 80 20 166/77 114 99 06/19 1449 80 16 182/80 120 100 06/19 1445 82 23 99 06/19 1444 84 25 202/102 140 99 06/19 1442 100 Nasal 28 cannula 06/19 1441 77 15 100 06/19 1434 90 21 196/93 134 94 06/19 [...] 97.7 64 18 114/60 78 100 Nasal 3.886492 cannula 06/19 0800 79 24 111/58 78 [...] 2014 80 20 97 06/18 1999 97.2 10/01 1999 Nasal 2.009710 cannula 10/01 1999 79 18 104/57 75 97 06/18 1945 79 19 97 06/18 1930 81 17 97 06/18 1915 83 16 97 06/18 1909 88 14 115/61 83 97 06/18 1905 88 17 96 06/18 1901 86 19 108/59 78 98 06/18 1900 84 12 98 06/18 1846 86 19 135/71 96 98 Patient Weight Weight (lb): 156 Weight (oz): 3.65 Weight (kg): 70.76 Physical Exam General appearance: alert, awake, oriented Head/Eyes: atraumatic, normocephalic ENT: moist mucosal membranes Neck: no JVD Cardiovascular: CV assessment: regular rate and rhythm Respiratory: clear to auscultation, no distress Lower extremity: LE assessment: no edema Musculoskeletal: full range of motion Neuro/EMBLEM FUSER TENDER: alert, oriented X 3, CN II-XII intact Skin: dry, intact Psychiatry: normal affect, normal judgment/insight, normal mood Results Findings/Data: Laboratory Tests 10/01 09/30 0450 2215 Chemistry Sodium [...] (Auto) (14 - 44 %) 8.7 L Preble % (Auto) (4 - 13 %) 8.4 Eos % (Auto) (0 - 6 %) 0.1 Baso % (Auto) (0 - 2 %) 0.2 Neut # (Auto) (2.0 - 7.6 K/mm3) 8.82 H Lymph # (Auto) (1.0 - 3.8 K/mm3) 0.93 L Preble # (Auto) (0.1 - 0.8 K/mm3) 0.90 [...] PLAN: Ambulate Home medications. at 2048 RPT #:[id number] END OF [id number] 15:00:00 [facility] ([facility]) Hospitalist Progress Note REPORT#:[id number] REPORT STATUS: Signed DATE:10/01/18 TIME: 1500 PATIENT: RACHEAL SABILLON UNIT #: [id number] ROOM/BED: [address] : [birth year] AGE: 72 SEX: F [...] 203/99 142 91 10/01 1430 204/96 138 06/19 1428 93 31 [...] 97.7 64 18 114/60 78 100 Nasal 3.142163 cannula 06/19 0800 79 24 111/58 78 [...] 80 20 97 06/18 1999 97.2 06/18 2000 Nasal 2.616488 cannula 06/18 1999 79 18 104/57 75 [...] 1642 85 18 97 06/18 1630 Nasal 3.303738 cannula 09/30 1630 87 20 98 09/30 1627 88 22 98 09/30 1624 86 20 98 09/30 1612 87 20 98 09/30 1557 85 20 98 09/30 1542 91 23 97 09/30 1527 99 30 97 09/30 1512 100 Simple 5.046019 40 mask 09/30 1512 97.6 107 30 146/69 94 100 Simple 3.071642 mask 09/30 1512 107 99 24 hour [...] (14 - 44 %) 8.7 L 30.3 Preble % (Auto) (4 - 13 %) 8.4 10.8 Eos % (Auto) (0 - 6 %) 0.1 3.0 Baso % (Auto) (0 - 2 %) 0.2 0.3 Neut # (Auto) (2.0 - 7.6 K/mm3) 8.82 H 5.97 Lymph # (Auto) (1.0 - 3.8 K/mm3) 0.93 L 3.28 Preble # (Auto) (0.1 - 0.8 K/mm3) 0.90 [...] pre-existing hx of HTN at 1944 RPT #:[id number] END OF [id number] 10:27:00 [facility] ([facility]) Cardiovascular Surgery Prog REPORT#:[id number] REPORT STATUS: Signed DATE:10/01/18 TIME: 1027 PATIENT: RACHEAL SABILLON UNIT #: [id number] ROOM/BED: [address] : [birth year] AGE: 72 SEX: F [...] Nasal cannula 10/01 1999 O2 Flow Rate 2.915728 10/01 1999 FiO2 40 09/30 1512 24 [...] Genitourinary: spencer Extremities: moves all, no edema Neuro/EMBLEM FUSER TENDER: alert, oriented X 3, CNII-XII intacte, normal [...] (14 - 44 %) 8.7 L 30.3 Preble % (Auto) (4 - 13 %) 8.4 10.8 Eos % (Auto) (0 - 6 %) 0.1 3.0 Baso % (Auto) (0 - 2 %) 0.2 0.3 Neut # (Auto) (2.0 - 7.6 K/mm3) 8.82 H 5.97 Lymph # (Auto) (1.0 - 3.8 K/mm3) 0.93 L 3.28 Preble # (Auto) (0.1 - 0.8 K/mm3) 0.90 [...] collaborating MD (Dr. Kc) at 1105 RPT #:[id number] END OF [id number] 10:27:00 [facility] ([facility]) Cardiovascular Surgery Prog REPORT#:[id number] REPORT STATUS: Signed DATE:10/01/18 TIME: 1027 PATIENT: RACHEAL SABILLON UNIT #: [id number] ROOM/BED: [address] : [birth year] AGE: 72 SEX: F [...] Nasal cannula 10/01 1999 O2 Flow Rate 2.712374 10/01 1999 FiO2 40 09/30 1512 24 [...] Genitourinary: spencer Extremities: moves all, no edema Neuro/EMBLEM FUSER TENDER: alert, oriented X 3, CNII-XII intacte, normal [...] (14 - 44 %) 8.7 L 30.3 Preble % (Auto) (4 - 13 %) 8.4 10.8 Eos % (Auto) (0 - 6 %) 0.1 3.0 Baso % (Auto) (0 - 2 %) 0.2 0.3 Neut # (Auto) (2.0 - 7.6 K/mm3) 8.82 H 5.97 Lymph # (Auto) (1.0 - 3.8 K/mm3) 0.93 L 3.28 Preble # (Auto) (0.1 - 0.8 K/mm3) 0.90 [...] Addendum 1: 10/01/18 1516 by Billie Valadez COMMUNICABLE DISEASE SPECIALIST for Rohith Kc MD A/P HTN-B/B elevated with systolic 180-200's this afternoon. Patient restrated on cardene gtt. procardia SL ordered. Will monitor in ICU. Patinet remains neurologically intact. right neck dressing D/c/I. D/w with Dr. Kc, patient, and BS RN. at 1518 RPT #:[id number] END OF [id number] 10:27:00 [facility] ([facility]) Cardiovascular Surgery Prog REPORT#:[id number] REPORT STATUS: Signed DATE:10/01/18 TIME: 1027 PATIENT: RACHEAL SABILLON UNIT #: [id number] ROOM/BED: [address] : [birth year] AGE: 72 SEX: F [...] Nasal cannula 10/01 1999 O2 Flow Rate 2.474133 10/01 1999 FiO2 40 09/30 1512 24 [...] Genitourinary: spencer Extremities: moves all, no edema Neuro/EMBLEM FUSER TENDER: alert, oriented X 3, CNII-XII intacte, normal [...] (14 - 44 %) 8.7 L 30.3 Preble % (Auto) (4 - 13 %) 8.4 10.8 Eos % (Auto) (0 - 6 %) 0.1 3.0 Baso % (Auto) (0 - 2 %) 0.2 0.3 Neut # (Auto) (2.0 - 7.6 K/mm3) 8.82 H 5.97 Lymph # (Auto) (1.0 - 3.8 K/mm3) 0.93 L 3.28 Preble # (Auto) (0.1 - 0.8 K/mm3) 0.90 [...] procardia SL ordered. Will monitor in ICU. Ignacianet remains neurologically intact. right neck dressing D/c/I. D/w with Dr. Kc, patient, and BS RN. at 1518 at 1954 RPT #:[id number] END OF [id number] 10:27:00 [facility] ([facility]) Cardiovascular Surgery Prog REPORT#:[id number] REPORT STATUS: Signed DATE:10/01/18 TIME: 1027 PATIENT: RACHEAL SABILLON UNIT #: [id number] ROOM/BED: [address] : [birth year] AGE: 72 SEX: F [...] Nasal cannula 10/01 1999 O2 Flow Rate 2.781946 10/01 1999 FiO2 40 09/30 1512 24 [...] Genitourinary: spencer Extremities: moves all, no edema Neuro/EMBLEM FUSER TENDER: alert, oriented X 3, CNII-XII intacte, normal [...] (14 - 44 %) 8.7 L 30.3 Preble % (Auto) (4 - 13 %) 8.4 10.8 Eos % (Auto) (0 - 6 %) 0.1 3.0 Baso % (Auto) (0 - 2 %) 0.2 0.3 Neut # (Auto) (2.0 - 7.6 K/mm3) 8.82 H 5.97 Lymph # (Auto) (1.0 - 3.8 K/mm3) 0.93 L 3.28 Preble # (Auto) (0.1 - 0.8 K/mm3) 0.90 [...] BS RN. at 1518 at 1954 RPT #:[id number] END OF [id number] 08:08:511777-1294 [place] [address] PATIENT NAME: RACHEAL SABILLON ADMIT DATE: 09/30/18 ACCOUNT NO: [id number] ROOM NO: [facility] AGE: 72 REPORT TYPE: ELECTROCARDIOGRAM SEX: F ADMITTING PHYSICIAN:Rohith Kc MD ATTENDING PHYSICIAN:Rohith Kc MD Order: [id number] Test Reason : CAD Test Date/Time Stamp: [...] MARC at 1611 PATIENT NAME: RACHEAL SABILLON 19:05:00 [facility] ([facility]) Adult General Consultation REPORT#:[id number] REPORT STATUS: Signed DATE:09/30/18 TIME: 1904 PATIENT: RACHEAL SABILLON UNIT #: [id number] ROOM/BED: [address] : [birth year] AGE: 72 SEX: F [...] Nasal cannula 09/30 1630 O2 Flow Rate 3.578414 09/30 1630 FiO2 40 09/30 1512 Temp [...] soft, non-tender Extremities: moves all, no edema Neuro/EMBLEM FUSER TENDER: alert, no motor deficits Skin: dry, intact Psychiatry: normal affect Results Findings/Data: Laboratory Tests: 09/30 09/30 1530 1515 Blood Gas [...] % (Auto) (14 - 44 %) 30.3 Preble % (Auto) (4 - 13 %) 10.8 Eos % (Auto) (0 - 6 %) 3.0 Baso % (Auto) (0 - 2 %) 0.3 Neut # (Auto) (2.0 - 7.6 K/mm3) 5.97 Lymph # (Auto) (1.0 - 3.8 K/mm3) 3.28 Preble # (Auto) (0.1 - 0.8 K/mm3) 1.17 [...] Temp 98.1 10/01 1152 O2 Flow Rate 3.050093 10/01 0800 B/P assess/follow-up: pre-existing hx of HTN at 1500 RPT #:[id number] END OF [id number] 17:52:392793-[address] [address] PATIENT NAME: RACHEAL SABILLON ADMIT DATE: 09/30/18 ACCOUNT NO: [id number] ROOM NO: Z.SI07 AGE: 72 REPORT TYPE: ELECTROCARDIOGRAM SEX: F ADMITTING PHYSICIAN:Rohith Kc MD ATTENDING PHYSICIAN:Rohith Kc MD Order: [id number] Test Reason : post op Test Date/Time [...] MARC at 1807 PATIENT NAME: RACHEAL SABILLON 15:15:[id number] [address] PATIENT NAME: RACHEAL SABILLON ADMIT DATE: 09/30/18 ACCOUNT NO: [id number] ROOM NO: Z.SI07 AGE: 72 REPORT TYPE: OPERATIVE REPORT SEX: F ADMITTING PHYSICIAN:Rohith Kc MD ATTENDING PHYSICIAN:Rohith Kc MD OPERATION DATE: 09/30/2018 PREOPERATIVE DIAGNOSIS: Right internal carotid stenosis. POSTOPERATIVE DIAGNOSIS: Right internal carotid stenosis. PROCEDURE: CVP insertion, right carotid endarterectomy, Hemashield patch arterioplasty. SURGEON: Rohith Kc MD CHIEF DEPUTY CORONER: Brisa Moser PA-C ANESTHESIA: General. COMPLICATIONS: None. [...] By: Rohith Kc MD WT: OP:GERARDO/ISAÍAS/ANATOLY Conf#: [id number]/DID#: [id number] cc: Jose Marc MD Authenticated by Rohith Kc MD On 10/10/2018 11:40:08 PM at 2340 PATIENT NAME: RACHEAL SABILLON 15:11:00 [facility] ([facility]) Brief Op Note REPORT#:[id number] REPORT STATUS: Signed DATE:09/30/18 TIME: 1510 PATIENT: RACHEAL SABILLON UNIT #: [id number] ROOM/BED: [address] : [birth year] AGE: 72 SEX: F [...] sonosite US guidance Primary Surgeon: Rohith Kc Document Control Assistant(s): Brisa Moser PA-C Anesthesiologist: Dr. Idalia Singleton CRNA Anesthesia: general anesthesia Findings: See detailed op report Complications: none Estimated blood loss in ml's: 150cc Specimens removed/altered: plaque from right carotid artery Drain(s): Spencer Catheter Placed, BLAKE drain Implant(s): hemashield patch Disposition: ICU (in a ), stable at 1514 RPT #:[id number] END OF [id number] 15:11:00 [facility] ([facility]) Brief Op Note REPORT#:[id number] REPORT STATUS: Signed DATE:09/30/18 TIME: 1511 PATIENT: RACHEAL SABILLON UNIT #: [id number] ROOM/BED: [address] : [birth year] AGE: 72 SEX: F [...] sonosite US guidance Primary Surgeon: Rohith Kc Document Control Assistant(s): Brisa Moser PA-C Anesthesiologist: Dr. Idalia Singleton CRNA Anesthesia: general anesthesia Findings: See detailed op report Complications: none Estimated blood loss in ml's: 150cc Specimens removed/altered: plaque from right carotid artery Drain(s): Spencer Catheter Placed, BLAKE drain Implant(s): hemashield patch Disposition: ICU (in a ), stable at 1514 at 1535 [facility][id number] END OF [id number] 12:39:277854-[address] [place] [address] PATIENT NAME: RACHEAL SABILLON ADMIT DATE: ACCOUNT NO: [id number] ROOM NO: AGE: 72 REPORT TYPE: ELECTROCARDIOGRAM SEX: F ADMITTING PHYSICIAN:Rohith Kc MD ATTENDING PHYSICIAN:Rohith Kc MD Order: [id number] Test Reason : PRE-OP Test Date/Time Stamp: [...] MARC at 1648 PATIENT NAME: RACHEAL SABILLON 12:37:[id number] [address] PATIENT NAME: RACHEAL SABILLON ADMIT DATE: 09/20/18 ACCOUNT NO: [id number] ROOM NO: AGE: 72 REPORT TYPE: CONSULTATION [...] are negative. She did not have an MA at the time of the previous stent. [...] proceed. Dictated By: Rohith Kc MD WT: CON:ZSULY/ISAÍAS/NTS Conf#: [id number]/DID#: [id number] Authenticated by Rohith Kc MD On 10/10/2018 11:31:10 PM at 2331 PATIENT NAME: RACHEAL SABILLON 10:18:[id number] [place] [address] PATIENT NAME: RACHEAL SABILLON ADMIT DATE: 09/20/18 ACCOUNT NO: [id number] ROOM NO: AGE: 72 REPORT TYPE: eCAROTID ULTRASOUND SEX: F ADMITTING PHYSICIAN: ATTENDING PHYSICIAN:Jose Marc MD *[facility]* [address] [place] [address] Carotid Duplex Study Patient: Racheal Sabillon Study Date: 09/20/2018 BP: 141 / 72 Location: [facility] URN: [id number] : 1945 Age: 72 Height: 61 in / 154.9 cm Gender: F Weight: 145 lb / 65.9 kg BMI/BSA: 27.5 kg/m 2 / 1.7 m 2 *Ordering Physician: * Jose Marc MD *Interpreting Physician: * Jose Marc MD *Hand Box Coverer: * Ruthann Nogueira RVT Indications: CAD catawba or graft. Study data: Carotid duplex study. Bilateral evaluation with grayscale 2D imaging, color Doppler imaging, and spectral Doppler analysis. Location: Recovery room. Patient status: Outpatient. Patient room number: CH2. Procedure: A vascular evaluation was performed. Images were obtained using a Book&Table vascular ultrasound machine. Image quality was adequate. [...] 10:18 at 1019 PATIENT NAME: RACHEAL SABILLON 07:38:[id number] [address] PATIENT NAME: RACHEAL SABILLON ADMIT DATE: 09/20/18 ACCOUNT NO: [id number] ROOM NO: AGE: 72 REPORT TYPE: CARDIAC CATHETERIZATION REPORT SEX: F ADMITTING PHYSICIAN: ATTENDING PHYSICIAN:Jose Marc MD PROCEDURE DATE: 09/20/2018 CARDIOVASCULAR PROCEDURE PLATE GLASS INSTALLER HELPER: Jose Marc MD INDICATION FOR THE PROCEDURE: [...] did not require conscious sedation in the brine room laborer. She did have Valium and Benadryl in the holding area. After local anesthesia, a 6-Telugu sheath was placed in the right common femoral artery using standard techniques and fluoroscopy. After heparinization, left coronary angiogram showed calcified coronary system. She has a patent circumflex stent in the mid vessel. She has 30% plaquing the first obtuse marginal and 60% [id number]-[id number] disease in the circumflex: The circumflex and [...] stenosis. The right groin was PATIENT NAME: ARCHEAL SABILLON sealed using Angio-Seal. There were no complications. The patient tolerated the procedure well. The patient will be referred for carotid surgery and she will be continued on medical therapy for her coronary artery disease. Dictated By: Jose Marc MD WT: CATH:WILFREDO/MANDIE/ANATOLY Conf#: [id number]/DID#: [id number] Authenticated by Jose Marc MD On 09/20/2018 08:15:26 AM at 0815 PATIENT NAME: RACHEAL SABILLON 06:12:[id number] [place] [id number] PATIENT NAME: RACHEAL SABILLON ADMIT DATE: 09/20/18 ACCOUNT NO: [id number] ROOM NO: AGE: 72 REPORT TYPE: ELECTROCARDIOGRAM SEX: F ADMITTING PHYSICIAN: ATTENDING PHYSICIAN:Jose Marc MD Order: [id number] Test Reason : PREOP Test Date/Time Stamp: [...] MARC at 0921 PATIENT NAME: RACHEAL SABILLON 18:46:[id number] [place] [id number] PATIENT NAME: RACHEAL SABILLON ADMIT DATE: 09/20/18 ACCOUNT NO: [id number] ROOM NO: AGE: 72 REPORT TYPE: HISTORY [...] fraction. Her last nuclear stress test in 2016 was negative for ischemia. [...] By: Jose Marc MD WT: HP:GERARDO/MANDIE/ANATOLY Conf#: [id number]/DID#: [id number] Authenticated and Edited by Jose Marc MD On 09/20/18 6:13:56 AM at 0615 PATIENT NAME: RACHEAL SABILLON
[2024-08-01] MEDS ORDERED: ACETAMINOPHEN 325 MG TABLET ONE (10:23)
[2024-08-01] MEDS ORDERED: IBUPROFEN 200 MG TAB PO ONE (10:23)
--- NOTE | 2024-08-01 10:34 | RAD REPORT ---
EXAMINATION: Shoulder Left 2+ Views CLINICAL INDICATION: Female, 78 years old. PAIN COMPARISON: No prior exam. FINDINGS: No acute fracture. No malalignment/dislocation. Mild left AC joint and glenohumeral joint spurring. Other: n/a IMPRESSION: No acute osseous abnormality.
[2024-08-01 10:44] LABS: Specific Gravity 1.012 (1.005-1.030); Urine Bilirubin NEGATIVE (Negative); Urine Blood Negative (Negative); Urine Clarity Clear (Clear); Urine Color Light-Yellow (Yellow); Urine Glucose NEGATIVE (Negative); Urine Ketones NEGATIVE (Negative); Urine Microscopic Reflex YN NO UMIC; Urine Nitrite NEGATIVE (Negative); Urine Protein NEGATIVE (Negative); Urine Urobilinogen Normal (Normal)
--- NOTE | 2024-08-01 10:55 | RAD REPORT ---
EXAMINATION: Head C Spine Mpr Wo Con CLINICAL INDICATION: Female, 78 years old. TRAUMA TECHNIQUE: Axial CT images from the skull base to the vertex without intravenous contrast. Axial CT i mages through the cervical spine were obtained without intravenous contrast. Sagittal and coronal reformatted images were created from the data set. Coronal and sagittal reformatted images were creat ed from the data set. One or more of the following dose reduction techniques were used: Automated exposure control, adjustment of the mA and/or kV according to patient size, and/or iterative reconstr uction. Unless otherwise specified, incidental findings do not require dedicated imaging follow-up. [id number]. COMPARISON: Head CT 09/02/2023, chest CT 12/30/2023 FINDINGS: Head: INTRACRANIAL: No acute intracranial hemorrhage. No hydrocephalus. No mass effect or midline shift. Mo derate to severe chronic small vessel ischemic changes.Mild cerebral atrophy. VASCULATURE: No visualized abnormalities in the arteries or dural venous sinuses. SCALP/SKULL: No calvarial fracture identified. No acute soft tissue abnormality. SINUSES: The visualized paranasal sinuses are mostly clear. No significant mastoid fluid. Cervical spine: ALIGNMENT: 2 mm anterolisthesis of C3 on C4 and C4 on C5. This is likely related to underlying degene rative changes. BONE: Vertebral body heights are maintained. No aggressive osseous lesions. DEGENERATIVE: Mild cervical spondylosis. No high-grade central spinal stenosis. SOFT TISSUE: Surgical changes in the neck.. The visualized lung apices are clear. IMPRESSION: No acute intracranial abnormality. No acute fracture or traumatic malalignment of the cervical spine.
--- NOTE | 2024-08-01 11:00 | RAD REPORT ---
EXAM: Chest Abd Pelvis Wo Con CLINICAL INDICATION: Female, 78 years old TRAUMA TECHNIQUE: CT chest, abdomen and pelvis was performed, without IV contrast, as per department protoco l. Axial, sagittal and coronal reconstructions were obtained. One or more of the following dose reduction techniques were used: Automated exposure control, adjustment of the mA and/or kV according to the patient size, and/or iterative reconstruction. Unless otherwise specified, incidental findings do not require dedicated imaging follow-up. [id number]. COMPARISON: Chest CT 12/30/2023, CT abdomen 08/27/2021 FINDINGS: The lack of intravenous contrast limits the sensitivity of this exam for evaluation of solid visceral organs, vascular structures, and retroperitoneum. ---THORAX--- LOWER NECK AND CHEST WALL: Visualized thyroid gland and soft tissues are normal. LUNGS AND AIRWAYS: Dependent atelectasis. Emphysema.No dominant or clearly suspicious nodule identifi ed. PLEURA: No pleural effusion. No pneumothorax. MEDIASTINUM AND LYMPH NODES: No mediastinal mass or fluid collection. Normal size mediastinal, hilar, and axillary lymph nodes. THORACIC AORTA: Similar fusiform aneurysmal dilatation of the ascending thoracic aorta measuring up t o 4.4 cm. PULMONARY ARTERIES: Enlarged main pulmonary arteries could indicate pulmonary artery hypertension. Un able to evaluate for pulmonary emboli due to either protocol or lack of contrast. HEART: Normal heart size. Moderate coronary artery calcifications.No significant pericardial effusion . Aortic valve and mitral annular calcifications. ---ABDOMEN/PELVIS--- UPPER GI: No significant abnormality. LIVER: No significant focal abnormality. GALLBLADDER/BILE DUCTS: No biliary ductal dilatation.? PANCREAS: No mass, ductal dilation, or martin-pancreatic fluid. SPLEEN: Splenectomy with splenosis. ADRENALS: No adrenal masses. KIDNEYS AND URETERS: No hydronephrosis.Limited evaluation for renal lesions in the absence of IV cont rast.No renal calculi. ABDOMINAL AORTA AND OTHER VESSELS: Severe atherosclerotic changes. No aortic aneurysm. PERITONEUM: No abnormal free fluid. No free air. LYMPH NODES: No pathologic lymphadenopathy. ABDOMINAL WALL: Unremarkable SMALL BOWEL/COLON: Small bowel has normal course and caliber. No colonic wall thickening or pericolon ic inflammatory changes.Normal appendix. Mild diverticulosis without diverticulitis. Moderate formed stool burden. URINARY BLADDER: Underdistended but grossly unremarkable. 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 REPRODUCTIVE ORGANS: No pathologic process. ---COMBINED--- MUSCULOSKELETAL: Multilevel degenerative changes in the spine. No acute fracture. ADDITIONAL FINDINGS: None. IMPRESSION: No evidence of significant trauma to the chest, abdomen, or pelvis. Incidental findings as noted above,
--- NOTE | 2024-08-01 11:53 | ER ---
Nurse's Notes [facility] Name: Racheal Dia Age: 78 yrs Sex: Female : 1945 Arrival Date: 08/01/2024 Time: 09:57 Bed 18 Private MD: Diagnosis: Fall on same level, unspecified;Contusion of left shoulder;Contusion of abdominal wall Presentation: 08/01 10:20 Chief complaint: Pain in left shoulder and right trunk after mechanical fall in yard hb 2-3 days ago. Coronavirus screen: At this time, the client does not indicate any symptoms associated with coronavirus-19. Ebola Screen: No symptoms or risks identified at this time. Initial Sepsis Screen: Does the patient meet any 2 criteria? No. Patient's initial sepsis screen is negative. Does the patient have a suspected source of infection? No. Patient's initial sepsis screen is negative. Risk Assessment: Do you want to hurt yourself or someone else? Patient reports no desire to harm self or others. Onset of symptoms was July 30, 2024. 10:20 Method Of Arrival: Ambulatory hb 10:20 Acuity: AISHA 4 hb Historical: - Allergies: 10:21 No Known Allergies; hb - PMHx: 10:21 CHF; Hypercholesterolemia; Hypertension; Hypertensive disorder; hb - PSHx: 10:21 Heart Stents; Splenectomy; hb - Immunization history:: Adult Immunizations up to date. - Infectious Disease History:: Denies. - Social history:: Smoking status: Patient denies any tobacco usage or history of. Screenin:58 [facility] ED Fall Risk Assessment (Adult) History of falling in the last 3 months, ld1 including since admission No falls in past 3 months (0 pts) Confusion or Disorientation No (0 pts) Intoxicated or Sedated No (0 pts) Impaired Gait No (0 pts) Mobility Assist Device Used No (0 pt) Altered Elimination No (0 pt) Score/Fall Risk Level 0 - 2 = Low Risk Oriented to surroundings, Hourly rounding (assess needs \T\ fall precautionary measures) done. Abuse screen: Denies threats or abuse. Denies injuries from another. Nutritional screening: No deficits noted. Tuberculosis screening: No symptoms or risk factors identified. Assessment: 10:58 General: Appears in no apparent distress. comfortable, Behavior is calm, cooperative, ld1 appropriate for age. Pain: Denies pain. Neuro: Level of Consciousness is awake, alert, obeys commands, Oriented to person, place, time, situation. Cardiovascular: Capillary refill < 3 seconds Patient's skin is warm and dry. Respiratory: Airway is patent Respiratory effort is even, unlabored. GI: Abdomen is round non-distended. : No signs and/or symptoms were reported regarding the genitourinary system. EENT: No signs and/or symptoms were reported regarding the EENT system. Derm: No signs and/or symptoms reported regarding the dermatologic system. Musculoskeletal: No signs and/or symptoms reported regarding the musculoskeletal system. Vital Signs: 10:20 BP 162 / 102; Pulse 70; Resp 16; Temp 98; Pulse Ox 100% on R/A; Weight 63.5 kg; Height hb 5 ft. 1 in. ; Pain 7/10; 10:58 Pulse 64; Resp 18; Pulse Ox 96% on R/A; ld1 10:20 Body Mass Index 26.45 (63.50 kg, 154.94 cm) hb 10:20 Pain Scale: Adult hb ED Course: 10:02 Patient arrived in ED. al6 10:06 Jaret Swift MD is Attending Physician. jaret 10:21 Triage completed. hb 10:21 Arm band placed on. hb 10:25 Marichuy Avila, RN is Primary Nurse. ld1 10:30 Shoulder Left (2 View) XRAY In Process Unspecified. EDMS 10:35 Urinalysis w/ reflexes Sent. ld1 10:49 Chest Abd Pelvis Wo Con In Process Unspecified. EDMS 10:49 Head C Spine Mpr Wo Con In Process Unspecified. EDMS 10:58 Patient has correct armband on for positive identification. Placed in gown. Bed in low ld1 position. Call light in reach. Side rails up X2. groundwater monitoring technician on. Pulse ox on. NIBP on. Door closed. Noise minimized. Warm blanket given. 10:58 No provider procedures requiring assistance completed. ld1 11:52 Peter Estrella MD is Referral Physician. jaret 12:20 Patient did not have IV access during this emergency room visit. ld1 Administered Medications: 10:35 Drug: Ibuprofen PO 400 mg PO once Route: PO; ld1 10:35 Drug: Acetaminophen PO 650 mg PO once Route: PO; ld1 Medication: 10:58 VIS not applicable for this client. ld1 Outcome: 11:52 Discharge ordered by . jaret 12:20 Discharged to home ambulatory, ld1 12:20 Condition: stable 12:20 Discharge instructions given to patient, Instructed on discharge instructions, follow up and referral plans. medication usage, Demonstrated understanding of instructions, follow-up care, medications, Prescriptions given X 2, 12:21 Patient left the ED. ld1 Signatures: Dispatcher [employer] ED[facility] Jaret Swift MD MD cha Baxter, Heather, RN RN Marichuy Avila RN RN ld1 Maria Elena Barnett
--- NOTE | 2024-08-01 11:53 | EDPHYS ---
Physician Documentation [facility] Name: Racheal Dia Age: 78 yrs Sex: Female : 1945 Arrival Date: 08/01/2024 Time: 09:57 Bed 18 Private MD: ED Physician Jaret Swift HPI: 08/01 11:02 This 78 yrs old Black Female presents to ER via Ambulatory with complaints of Fall jaret Injury, Congestion. 11:02 Details of fall: The patient fell from an upright position, while walking. Onset: The jaret symptoms/episode began/occurred 2 day(s) ago. Associated injuries: The patient sustained injury to the abdomen, specifically the right lower quadrant, contusion, anterior aspect of left shoulder and posterior aspect of left shoulder, contusion, decreased range of motion. Severity of symptoms: At their worst the symptoms were moderate, in the emergency department the symptoms are unchanged. The patient has not experienced similar symptoms in the past. Historical: - Allergies: 10:21 No Known Allergies; hb - PMHx: 10:21 CHF; Hypercholesterolemia; Hypertension; Hypertensive disorder; hb - PSHx: 10:21 Heart Stents; Splenectomy; hb - Immunization history:: Adult Immunizations up to date. - Infectious Disease History:: Denies. - Social history:: Smoking status: Patient denies any tobacco usage or history of. ROS: 11:08 Constitutional: Negative for fever, chills, and weight loss, Eyes: Negative for injury, jaret pain, redness, and discharge, ENT: Negative for injury, pain, and discharge, Neck: Negative for injury, pain, and swelling, Cardiovascular: Negative for chest pain, palpitations, and edema, Respiratory: Negative for shortness of breath, cough, wheezing, and pleuritic chest pain, Back: Negative for injury and pain, : Negative for injury, bleeding, discharge, and swelling, Skin: Negative for injury, rash, and discoloration, Neuro: Negative for headache, weakness, numbness, tingling, and seizure, Psych: Negative for depression, anxiety, suicide ideation, homicidal ideation, and hallucinations, Allergy/Immunology: Negative for hives, rash, and allergies, Endocrine: Negative for neck swelling, polydipsia, polyuria, polyphagia, and marked weight changes, Hematologic/Lymphatic: Negative for swollen nodes, abnormal bleeding, and unusual bruising, 11:08 Abdomen/GI: Positive for abdominal pain, of the right lower quadrant, 11:08 MS/extremity: Positive for injury or acute deformity, decreased range of motion, pain, of the anterior aspect of left shoulder and posterior aspect of left shoulder, Exam: 11:11 Constitutional: This is a well developed, well nourished patient who is awake, alert, jaret and in no acute distress. Head/Face: Normocephalic, atraumatic. Eyes: Pupils equal round and reactive to light, extra-ocular motions intact. Lids and lashes normal. Conjunctiva and sclera are non-icteric and not injected. Cornea within normal limits. Periorbital areas with no swelling, redness, or edema. ENT: Nares patent. No nasal discharge, no septal abnormalities noted. Tympanic membranes are normal and external auditory canals are clear. Oropharynx with no redness, swelling, or masses, exudates, or evidence of obstruction, uvula midline. Mucous membranes moist. Neck: Trachea midline, no thyromegaly or masses palpated, and no cervical lymphadenopathy. Supple, full range of motion without nuchal rigidity, or vertebral point tenderness. No Meningismus. Chest/axilla: Normal chest wall appearance and motion. Nontender with no deformity. No lesions are appreciated. Cardiovascular: Regular rate and rhythm with a normal S1 and S2. No gallops, murmurs, or rubs. Normal PMI, no JVD. No pulse deficits. Respiratory: Lungs have equal breath sounds bilaterally, clear to auscultation and percussion. No rales, rhonchi or wheezes noted. No increased work of breathing, no retractions or nasal flaring. Back: No spinal tenderness. No costovertebral tenderness. Full range of motion. Female : Normal external genitalia. Skin: Warm, dry with normal turgor. Normal color with no rashes, no lesions, and no evidence of cellulitis. MS/ Extremity: Pulses equal, no cyanosis. Neurovascular intact. Full, normal range of motion., bilateral aka Neuro: Awake and alert, GCS 15, oriented to person, place, time, and situation. Cranial nerves II-XII grossly intact. Motor strength 5/5 in all extremities. Sensory grossly intact. Cerebellar exam normal. Normal gait. Psych: Awake, alert, with orientation to person, place and time. Behavior, mood, and affect are within normal limits. 11:11 Abdomen/GI: Inspection: abdomen appears normal, Bowel sounds: normal, Palpation: mild abdominal tenderness, in the right lower quadrant, 11:11 Musculoskeletal/extremity: Extremities: grossly normal except: noted in the anterior aspect of left shoulder and posterior aspect of left shoulder: decreased ROM, pain, ROM: intact in all extremities, limited active range of motion due to pain, limited passive range of motion due to pain, in the anterior aspect of left shoulder and posterior aspect of left shoulder, Circulation is intact in all extremities. Compartment Syndrome exam of affected extremity: is normal. DVT Exam: No signs of deep vein thrombosis. no pain, no swelling, no tenderness, negative Homans' sign noted on exam, no appreciated bluish discoloration, no erythema, no increased warmth, Vital Signs: 10:20 BP 162 / 102; Pulse 70; Resp 16; Temp 98; Pulse Ox 100% on R/A; Weight 63.5 kg; Height hb 5 ft. 1 in. ; Pain 7/10; 10:58 Pulse 64; Resp 18; Pulse Ox 96% on R/A; ld1 10:20 Body Mass Index 26.45 (63.50 kg, 154.94 cm) hb 10:20 Pain Scale: Adult hb MDM: 10:06 Medical Screening Exam initiated jaret 11:15 Differential diagnosis: Anterior dislocation with fracture, Anterior dislocation jaret without fracture, Posterior dislocation with fracture, Posterior dislocation without fracture, humeral head fracture, glenoid fracture, DJD, tendonitis. Differential diagnosis: abrasion, closed head injury, contusion, fracture, laceration, multiple trauma, sprain, strain. Data reviewed: vital signs, nurses notes, lab test result(s), radiologic studies, CT scan, plain films. Consideration of Admission/Observation Patient was admitted/placed on observation. Escalation of care including admission/observation considered. I considered the following discharge prescriptions or medication management in the emergency department Medications were administered in the Emergency Department. See MAR. Independent interpretation of the following test(s) in the Emergency Department X-Ray: My interpretation is left shoulder. CT Scan: My interpretation is ct traumagram. Historians other than the Patient: EMS: ems well informed. Care significantly affected by the following chronic conditions: Hypertension, Congestive Heart Failure, high chlesterol. 08/01 10:20 Order name: Urinalysis w/ reflexes; Complete Time: 11:51 [facility] 08/01 10:20 Order name: Shoulder Left (2 View) XRAY; Complete Time: 11:51 [facility] 08/01 10:25 Order name: Chest Abd Pelvis Wo Con; Complete Time: 11:51 [facility] 08/01 10:26 Order name: Head C Spine Mpr Wo Con; Complete Time: 11:51 [facility] 08/01 10:20 Order name: PO challenge; Complete Time: 10:27 [facility] Administered Medications: 10:35 Drug: Ibuprofen PO 400 mg PO once Route: PO; ld1 10:35 Drug: Acetaminophen PO 650 mg PO once Route: PO; ld1 Disposition Summary: 08/01/24 11:52 Discharge Ordered Notes: Location: Home jaret Problem: new jaret Symptoms: have improved jaret Condition: Stable jaret Diagnosis - Fall on same level, unspecified jaret - Contusion of left shoulder jaret - Contusion of abdominal wall jaret Followup: jaret - With: Private Physician - When: 2 - 3 days - Reason: Recheck today's complaints, Continuance of care, Re-evaluation by your physician Followup: jaret - With: Peter Estrella MD - When: 2 - 3 days - Reason: Recheck today's complaints, Re-evaluation by your physician Discharge Instructions: - Discharge Summary Sheet jaret - Abdominal Pain, Adult jaret - Fall Prevention in the Home, Adult jaret - Shoulder Pain jaret - Shoulder Pain, [id number] jaret - Abdominal Pain, Adult, [id number] jaret - Fall Prevention in the Home, Adult, [id number] [facility] Forms: - Medication Reconciliation Form [facility] - Antibiotic Education jaret - Prescription Opioid Use [facility] - Patient Portal Instructions [facility] - Leadership Thank You Letter [facility] Prescriptions: - Tessalon Perles 100 mg Oral capsule - take 2 capsule ORAL route every 8 hours As needed; 30 capsule; Refills: 0, jaret Product Selection Permitted - Motrin IB 200 mg Oral tablet - take 2 tablet ORAL route every 6 hours As needed as needed with food; 30 jaret tablet; Refills: 0, Product Selection Permitted Signatures: Dispatcher [employer] Jaret Choe MD MD cha Baxter, Heather, RN RN Marichuy Avila RN RN ld1 Corrections: (The following items were deleted from the chart) 10:20 10:20 Shoulder Left 2 View+RAD.RAD.BRZ ordered. EDMS EDMS 10:20 10:20 Urinalysis+U.LAB.BRZ ordered. EDMS EDMS 10:20 10:20 Head C Spine Cap Wo Con+CT.RAD.BRZ ordered. EDMS EDMS
[2024-08-01 12:46] VITALS: BP 162/102; TEMP 98
[2024-08-01 12:47] VITALS: O2SAT 96
== END 2024-08-01 12:21 | disposition home or self-care (01) ==
LOC: ER 09:57
DX: S40.012A Contusion of left shoulder, initial encounter (principal); S30.1XXA Contusion of abdominal wall, initial encounter; W18.30XA Fall on same level, unspecified, initial encounter; Z95.818 Presence of other cardiac implants and grafts
CPT/HCPCS: 70450; 71250; 72125; 74176; 81003; 99284